=== PATIENT | female | born 1955 | race Caucasian/White ===

== ENCOUNTER → 2017-07-28 11:43 | Outpatient (CLI) | payer OTHER, SELFPAY ==
--- NOTE | 2017-07-28 18:51 | STRESSREP ---
Stress Test Report Exercise stress test. 62-year-old lady with a history of chest pain. Stress protocol: Resting EKG demonstrates normal sinus rhythm with a rate of 67 bpm. Resting blood pressure is 124/78 mmHg. The patient exercised according to the regular Quirino protocol for 5 minutes and 31 seconds attaining a maximum heart rate of 121 bpm which was 77% of the maximum predicted heart rate. The maximum workload was 7.0 metabolic equivalents. At rest there were no ST or T-wave changes noted suggest ischemia and at peak exercise upsloping ST changes only were noted with no meet the criteria for ischemia. No clinical angina was noted the test was terminated due to shortness of breath. Resting blood pressure was 124/78 with a peak blood pressure 152/68. Conclusion: Exercise stress test with no EKG criteria for ischemia at a moderate workload. No clinical angina noted.
== END ==
PROVIDERS: Family Provider Family Medicine; PCP Family Medicine; Visit Provider Internal Medicine Cardiovascular Disease
DX: E78.4 Other hyperlipidemia (principal); I10 Essential (primary) hypertension; I25.118 Atherosclerotic heart disease of native coronary artery with other forms of angina pectoris
CPT/HCPCS: 93017

== ENCOUNTER 2017-12-28 15:12 | Emergency (ER) | payer OTHER, SELFPAY ==
[2017-12-28 15:13] VITALS: BP 123/80; PULSE 69; RESP 16; TEMP 36.6; O2SAT 100; BMI 26.6
[2017-12-28 15:32] VITALS: O2SAT 99
--- NOTE | 2017-12-28 15:32 | EKG12_ITS ---
Test Reason : CP Blood Pressure : / mmHG Vent. Rate : 064 BPM Atrial Rate : 064 BPM P-R Int : 146 ms QRS Dur : 076 ms QT Int : 438 ms P-R-T Axes : 038 029 030 degrees QTc Int : 451 ms Normal sinus rhythm Normal ECG Confirmed by KAT CHACKO, HARMAN ([id number]), acquisitions editor ROSY SHEFFIELD ([id number]) on 01/01/2018 1:04:21 PM Referred By: HELIO/INDY Confirmed By:HARMAN STEPHENS MD
--- NOTE | 2017-12-28 15:32 | CT_ITS ---
STUDY: CTA CHEST REASON FOR EXAM: Female, 62 years old. Evaluate for dissection. Right sided chest pain. Hypertension. RADIATION DOSAGE (If Supplied By Facility): CTDIvol = ( 11.38 ) mGy, DLP = ( 408.79 ) mGycm TECHNIQUE: The examination was performed with the intravenous administration of 75mL ml of Isovue 370 contrast material. Post-processing of the angiographic images was performed, with multiplanar reformation and 3D reconstruction. Individualized dose optimization techniques were used for this CT. COMPARISON: None. FINDINGS: Normal thyroid Normal enhancement of the main pulmonary artery and right and left pulmonary arteries. Normal enhancement of the bilateral peripheral pulmonary arteries. There is no demonstrated pulmonary embolism. Normal thoracic aorta and visualized great vessels. There is no demonstrated aortic dissection. Normal heart and pericardium. Normal mediastinum. Normal hilar regions. Normal visualized trachea and bronchi. The lungs are well expanded. Normal pulmonary parenchyma. Calcified right lower lobe granuloma. Normal pleura. Normal chest wall structures. Normal osseous structures. Normal visualized upper abdomen. CT/CTA Chest W/WO Contrast IMPRESSION: Normal CTA chest examination, without a demonstrated pulmonary embolism or arterial dissection. Lungs are adequately inflated and clear. Electronically Signed: Manny Dodd DO at 17:09 EDT Tel , Service support ,
--- NOTE | 2017-12-28 15:55 | ED.VISSUMM ---
- ER Visit Summary Date of Service: 12/28/17 Chief Complaint: Chest pain History of Present Illness: The patient is a [address] Mims and Dr. Garcia. She reports that 3 days ago she noticed that her neck was stiff on the right. She states that she woke with this and the pain was 6 out of 10 severity. Then spread to her right shoulder 2 days ago. States that last night at 8 PM while at rest she had the onset of a right-sided chest pressure. It has been constant since that time. It is 8 out of 10 when she is still in 10 out of 10 with movement of her torso or breathing. She reports that this morning it is radiated into her right axilla down her arm and into her hand. She states that she took a dose of nitro last night and her pain decreased from an 8 to a 6 transiently. Patient denies any recent travel. No ankle swelling or calf pain. No personal or family history of DVT. She denies any recent trauma. No fall, MVA, or change in activity. However, she reports that she begin lovastatin 2 weeks ago. Physical Examination: Vitals: Stable. Afebrile. General: Well-nourished and well-developed. Head: Normocephalic atraumatic. Neck: Supple, no lymphadenopathy. No JVD. Mild tenderness palpation over the right trapezius muscle and the right rhomboids. Cardiovascular: Regular rate and rhythm. No murmurs. Respiratory: No respiratory distress. Clear to auscultation bilaterally. Moderate tenderness palpation over the right side of her chest that does reproduce her pain. Abdominal: Soft, nontender, nondistended, normal bowel sounds. No guarding, rebound, or peritoneal signs. Back: Nontender. Extremities: Nontender, no edema. 2+ radial pulse bilaterally. Skin: Normal color, no rash. Neurologic: Alert and oriented ?3. Cranial nerves II through XII are intact. Normal strength and sensation. Psych: Normal affect. Test Results: EKG is sinus at 64 with no acute changes. CBC is marked for an H&H 11.7 34.5, 7 neutrophils 41, sats 47. Chem-7 is normal. Troponin is negative. CPK is 90. CT of the chest shows no dissection or PE. Emergency Department Course and Treatment: Patient was treated morphine and Zofran IV. She is resting comfortably. Treatment Plan: Patient was discussed Dr. Hal Cunningham. Given the fact that these are more focal myalgias he questions whether or not that they are due to the lovastatin. Regardless patient is instructed to stop this. She will be discharged with [place]. Instructed follow-up Dr. Mims later this week to have further discussion about her cholesterol medications. Disposition: To home in improved and stable condition. Impression: 1. Atypical chest pain. 2. Muscular neck pain. This note was generated with [employer] dictation software. It may contain incorrect words, spelling, and punctuation that were not noted in review of the chart prior to signing ED Disposition - Plan for ED Patient: Disposition: Home or Assisted Living Chief Complaint: Chest Other Instructions: ED Strain Chest Wall Prescriptions: Hydrocodone/Acetaminophen [[place] 5-325 Tablet] 1 - 2 each PO 4X/DAY PRN PRN 3 Days #12 tablet PRN Reason: Pain Referrals: Hal Cunningham MD [STAFF PHYSICIAN] - 3-5 Days Additional Instructions: Don't take your lovastatin until you speak with Dr. Cunningham.
--- NOTE | 2017-12-28 15:58 | ED.DCSUM_ITS ---
- ER Visit Summary Date of Service: 12/28/17 Chief Complaint: Chest pain History of Present Illness: The patient is a [address] Mims and Dr. Garcia. She reports that 3 days ago she noticed that her neck was stiff on the right. She states that she woke with this and the pain was 6 out of 10 severity. Then spread to her right shoulder 2 days ago. States that last night at 8 PM while at rest she had the onset of a right-sided chest pressure. It has been constant since that time. It is 8 out of 10 when she is still in 10 out of 10 with movement of her torso or breathing. She reports that this morning it is radiated into her right axilla down her arm and into her hand. She states that she took a dose of nitro last night and her pain decreased from an 8 to a 6 transiently. Patient denies any recent travel. No ankle swelling or calf pain. No personal or family history of DVT. She denies any recent trauma. No fall, MVA, or change in activity. However, she reports that she begin lovastatin 2 weeks ago. Physical Examination: Vitals: Stable. Afebrile. General: Well-nourished and well-developed. Head: Normocephalic atraumatic. Neck: Supple, no lymphadenopathy. No JVD. Mild tenderness palpation over the right trapezius muscle and the right rhomboids. Cardiovascular: Regular rate and rhythm. No murmurs. Respiratory: No respiratory distress. Clear to auscultation bilaterally. Moderate tenderness palpation over the right side of her chest that does reproduce her pain. Abdominal: Soft, nontender, nondistended, normal bowel sounds. No guarding, rebound, or peritoneal signs. Back: Nontender. Extremities: Nontender, no edema. 2+ radial pulse bilaterally. Skin: Normal color, no rash. Neurologic: Alert and oriented ?3. Cranial nerves II through XII are intact. Normal strength and sensation. Psych: Normal affect. Test Results: EKG is sinus at 64 with no acute changes. CBC is marked for an H& H 11.7 34.5, 7 neutrophils 41, sats 47. Chem-7 is normal. Troponin is negative. CPK is 90. CT of the chest shows no dissection or PE. Emergency Department Course and Treatment: Patient was treated morphine and Zofran IV. She is resting comfortably. Treatment Plan: Patient was discussed Dr. Hal Cunningham. Given the fact that these are more focal myalgias he questions whether or not that they are due to the lovastatin. Regardless patient is instructed to stop this. She will be discharged with [place]. Instructed follow-up Dr. Mims later this week to have further discussion about her cholesterol medications. Disposition: To home in improved and stable condition. Impression: 1. Atypical chest pain. 2. Muscular neck pain. This note was generated with [employer] dictation software. It may contain incorrect words, spelling, and punctuation that were not noted in review of the chart prior to signing ED Disposition - Plan for ED Patient: Disposition: Home or Assisted Living Chief Complaint: Chest Other Instructions: ED Strain Chest Wall Prescriptions: Hydrocodone/Acetaminophen [[place] 5-325 Tablet] 1 - 2 each PO 4X/DAY PRN PRN 3 Days #12 tablet PRN Reason: Pain Referrals: Hal Cunningham MD [STAFF PHYSICIAN] - 3-5 Days Additional Instructions: Don't take your lovastatin until you speak with Dr. Cunningham.
[2017-12-28] MEDS: Morphine 4 MG/ML Syringe IV (16:07)
[2017-12-28] MEDS: 0.9% Normal Saline 1,000 ML 1000 ML IV (16:07)
[2017-12-28] MEDS: Ondansetron 4 MG/2 ML Vial IV (16:07)
[2017-12-28 16:10] LABS: Absolute Neutrophil Count 2.9 X10^3/uL (2.0-7.7); Basophil# 0.03 X10^3/uL; Basophil% 0.4 % (0-1); Eosinophil# 0.12 X10^3/uL; Eosinophils% 1.7 % (0-5); Hematocrit 34.5 % (37-47); Hemoglobin 11.7 g/dl (12.0-15.0); Lymphocyte % 47.4 % (19-41); Mean Corp Hgb Conc 33.9 g/gl (32-36); Mean Corpuscular Hgb 29.4 pg (27.0-32.0); Mean Corpuscular Volume 86.7 fL (81-99); Mean Platelet Vol. 10.4 fl (6.2-12.0); Monocyte# 0.67 X10^3/uL; Monocyte% 9.3 % (0-10); Neutrophil # 2.94 X10^3/uL (2.7-7.7); Neutrophil % 41.1 % (47-70); POSITIVE COUNT NO; POSITIVE DIFFERENTIAL NO; POSITIVE MORPHOLOGY NO; Platelet Count 278 K/mm3 (150-450); RBC Distribution Width CV 13.4 % (11.6-14.6); Red Blood Count 3.98 M/mm3 (4.2-5.4); White Blood Count 7.2 K/mm3 (4.4-11.0)
[2017-12-28 16:18] LABS: Anion Gap 7 (5-15); BUN 16 mg/dL (7-18); BUN/Creat Ratio 16.9 RATIO (10-20); CPK Total, Creatine Kinase 90 U/L (26-192); Calcium,Total 8.5 mg/dL (8.5-10.1); Chloride 106 mmol/L (98-107); Creatinine, Serum 0.94 mg/dL (0.55-1.02); EST Glomerular Filtration Rate 64 mL/min (>60); Est Glom Filt Rate - Afr Amer 77 mL/min (>60); Estimated Creatinine Clearance 57.35 ml/min; Glucose 83 mg/dL (74-106); Potassium 4.1 mmol/L (3.5-5.1); Sodium Level 139 mmol/L (136-145)
[2017-12-28] MEDS: Ketorolac 30 MG/ML Syringe IV (17:36)
[2017-12-28 18:36] VITALS: BP 113/67; PULSE 71; RESP 18; O2SAT 100
[2017-12-28 18:59] VITALS: BP 113/67; PULSE 66; RESP 15; O2SAT 93
== END 2017-12-28 19:00 | disposition home or self-care (01) ==
PROVIDERS: Emergency Provider Emergency Medicine; Family Provider Family Medicine; PCP Family Medicine
DX: R07.9 Chest pain, unspecified (principal); R07.89 Other chest pain; M54.2 Cervicalgia; R20.0 Anesthesia of skin; I10 Essential (primary) hypertension; I25.10 Atherosclerotic heart disease of native coronary artery without angina pectoris; E78.00 Pure hypercholesterolemia, unspecified; F17.210 Nicotine dependence, cigarettes, uncomplicated
CPT/HCPCS: 71275; 80048; 82550; 84484; 85025; 93005; 99285; J7030; Q9967; A4216; J2405

== ENCOUNTER 2017-12-30 05:34 | Emergency (ER) | payer OTHER, SELFPAY ==
[2017-12-30 05:37] VITALS: PULSE 56; RESP 19; TEMP 36.4; O2SAT 100; BMI 27.4
[2017-12-30 05:45] VITALS: BP 164/102; PULSE 57; RESP 15; TEMP 36.4; O2SAT 99
--- NOTE | 2017-12-30 06:00 | EKG12_ITS ---
Test Reason : CP Blood Pressure : / mmHG Vent. Rate : 056 BPM Atrial Rate : 056 BPM P-R Int : 156 ms QRS Dur : 076 ms QT Int : 480 ms P-R-T Axes : 064 040 050 degrees QTc Int : 463 ms Sinus bradycardia Otherwise normal ECG Confirmed by LILLY CHACKO, KINSEY ([id number]), digital editor ROSY SHEFFIELD ([id number]) on 01/01/2018 1:39:54 PM Referred By: BRIANNA Confirmed By:KINSEY CARR MD
--- NOTE | 2017-12-30 06:02 | ED.VISSUMM ---
- ER Visit Summary Date of Service: 12/30/17 Chief Complaint: [] Right-sided chest pain History of Present Illness: The patient is a 62 F with the above for the last 4 days gradual onset continuous waxes and wanes. Feels like somebody is punching her in the right side of the chest. Hurts to push on it. Started as a stiff neck and shoulder and into her chest. She was seen in the emergency department with a negative chest pain workup yesterday with negative labs and CT angios the chest. She has been using [place] with moderate relief of her symptoms. She said she has had this in the past as well. She does have one stent in her heart. No previous OH. She felt lightheaded after taking her dogs outside this morning came back inside sat down and had a syncopal episode. She did not injure herself. She had one episode of emesis. She had a negative stress test in July of this year. She says she has passed out in the past. No specific cause noted. Patient is on a beta-ingris metoprolol Physical Examination: [] Vital signs reviewed General: Well-nourished well-developed Head: Normocephalic atraumatic Eyes: Pupils equal round and reactive to light extraocular movements intact ENT: TMs clear no hemotympanum no trauma Neck: Nontender full range of motion Cardiovascular: Regular rate rhythm no murmurs normal S1-S2 Respiratory: No distress clear to auscultation bilaterally chest pinpoint right-sided tenderness Abdomen: Soft nontender nondistended normal bowel sounds no masses Back: Nontender no CVA tenderness Extremities: Nontender active range of motion ?4 extremities no trauma Skin: Normal color no trauma Neuro alert oriented cranial nerves II through XII intact normal strength sensation reflexes Test Results: [] Emergency Department Course and Treatment: [] EKG shows sinus rhythm at a rate of 56 without acute ischemia or arrhythmia. Repeat lab work obtained. Lab work shows no acute abnormalities. Hemoglobin 10.6. Troponin negative. Patient given IV Toradol and Zofran feels better after treatment. I do not think she needs to be admitted. I do not think this is heart related. This is quite reproducible likely costochondritis or chest wall pain. She thinks she passed out secondary to stress. Her was recently diagnosed with a lung mass and has been causing her a lot of anxiety and stress. She will try to follow-up as an outpatient. Treatment Plan: [] Disposition: [] Impression: [] Chest wall pain Syncopal episode This note was generated with [employer] dictation software. It may contain incorrect words, spelling, and punctuation that were not noted in review of the chart prior to signing ED Disposition - Plan for ED Patient: Chief Complaint: Chest Pain Referrals: Magan Garcia MD [Primary Care Provider] -
[2017-12-30] MEDS: Ondansetron 4 MG/2 ML Vial IV (06:12)
[2017-12-30] MEDS: Ketorolac 15 MG/ML Vial IV (06:22)
[2017-12-30 06:30] LABS: Absolute Lymphocyte Count 2.37 X10^3/ul (0.83-4.51); Absolute Neutrophil Count 3.5 X10^3/uL (2.0-7.7); Basophil# 0.03 X10^3/uL; Basophil% 0.4 % (0-1); Eosinophil# 0.11 X10^3/uL; Eosinophils% 1.6 % (0-5); Hematocrit 31.4 % (37-47); Hemoglobin 10.6 g/dl (12.0-15.0); Lymphocyte # 2.37 X10^3/ul (4.0); Lymphocyte % 34.8 % (19-41); Mean Corp Hgb Conc 33.8 g/gl (32-36); Mean Corpuscular Hgb 29.6 pg (27.0-32.0); Mean Corpuscular Volume 87.7 fL (81-99); Mean Platelet Vol. 10.5 fl (6.2-12.0); Monocyte# 0.76 X10^3/uL; Monocyte% 11.2 % (0-10); Neutrophil # 3.53 X10^3/uL (2.7-7.7); Neutrophil % 51.9 % (47-70); Platelet Count 254 K/mm3 (150-450); RBC Distribution Width CV 13.5 % (11.6-14.6); RBC Distribution Width SD 41.8 fl (35.1-43.9); Red Blood Count 3.58 M/mm3 (4.2-5.4); White Blood Count 6.8 K/mm3 (4.4-11.0)
[2017-12-30 06:32] LABS: POSITIVE COUNT NO; POSITIVE DIFFERENTIAL NO; POSITIVE MORPHOLOGY NO
[2017-12-30 06:52] LABS: Anion Gap 8 (5-15); BUN 15 mg/dL (7-18); BUN/Creat Ratio 15.3 RATIO (10-20); Calcium,Total 8.6 mg/dL (8.5-10.1); Chloride 107 mmol/L (98-107); Creatinine, Serum 0.98 mg/dL (0.55-1.02); EST Glomerular Filtration Rate 61 mL/min (>60); Est Glom Filt Rate - Afr Amer 73 mL/min (>60); Estimated Creatinine Clearance 55.01 ml/min; Glucose 133 mg/dL (74-106); Potassium 3.9 mmol/L (3.5-5.1); Sodium Level 142 mmol/L (136-145)
--- NOTE | 2017-12-30 06:59 | ED.DEP ---
ED Disposition - Plan for ED Patient: Disposition: Home or Assisted Living Chief Complaint: Chest Pain Instructions: ED Chest Pain Atypical Unkn Cause, What Is Syncope? Referrals: Magan Garcia MD [Primary Care Provider] - Hal Cunningham MD [STAFF PHYSICIAN] -
[2017-12-30 07:06] VITALS: O2SAT 98
[2017-12-30 07:22] VITALS: BP 128/69; PULSE 71; RESP 15; O2SAT 98
== END 2017-12-30 07:23 | disposition home or self-care (01) ==
PROVIDERS: Emergency Provider Emergency Medicine; Family Provider Family Medicine; PCP Family Medicine
DX: R07.89 Other chest pain (principal); R55 Syncope and collapse; E66.9 Obesity, unspecified; I10 Essential (primary) hypertension; I25.10 Atherosclerotic heart disease of native coronary artery without angina pectoris; E78.00 Pure hypercholesterolemia, unspecified
CPT/HCPCS: 80048; 84484; 85025; 93005; 99285; A4216; J2405

== ENCOUNTER → 2018-07-30 10:54 | Outpatient (CLI) | payer OTHER, SELFPAY ==
--- NOTE | 2018-07-30 | BRBX_PTH ---
PATIENT: TY HOFF LOC: [facility] U#:[id number] AGE/SX: 69/F ROOM: RE07/30/[address]: Dr. Skinny Carrion MD : [id number] BED: DIS: SPEC #: [id number] RECD: 07/30/18 14:06 STATUS: MARIANA TYLER #: [id number] JOS: 07/30/18 00:[address]: Skinny Carrion DEPT: SURGICAL PATHOLOGY RECD BY: Cisco Majano ENTERED: 07/30/18 14:06 SP TYPE: BREAST BX OTHR DR: Dr. Magan Garcia MD Tissues: A - Left breast, NOS B - Left breast, NOS Procedures: Surgery Specimen Level IV HEADER OPERATION: Left breast stereotactic biopsy PRE-OP DIAGNOSIS: Left breast density 1 o'clock; left breast microcalcifications central middle depth TISSUE SUBMITTED: A - Left breast density 1 o'clock, B - Left breast microcalcifications central middle depth ISCHEMIC TIME: 1 minute FIXATION TIME: 7.5 hours MICROSCOPIC DIAGNOSIS A. Left breast density, 1 o'clock, stereotactic core biopsy: Focal fibrocystic changes and adenosis. Focal microcalcification. Negative for atypia or malignancy. B. Left breast microcalcification, central middle depth, stereotactic core biopsy: Fragments of fibroadipose tissue with focal fat necrosis. Microcalcifications are not identified. See comment. Breast tissue is not identified in the submitted specimen. SJ:jessy 07/31/18 COMMENT B. Multiple levels are examnined. Correlation with clinical, radiologic findings and appropriate follow up are necessary. MICROSCOPIC DESCRIPTION Slides are reviewed. GROSS DESCRIPTION A - Received in fixative is one container labeled with the patient's name and designated density 1?o'clock. The specimen consists of multiple elongated fragments of flores-yellow fibroadipose tissue that?in aggregate measure 5 x 3 x 0.3 cm. The entire specimen is submitted in two cassettes. B - Received in fixative is one container labeled with the patient's name and designated calcification. The specimen consists of multiple elongated fragments of flores-yellow fibroadipose tissue that in aggregate measure 2.5 x 2.5 x 0.3 cm. The entire specimen is submitted in one cassette. / ALENA:jessy 07/30/18 TC:5 CPT: 61011 x2
--- NOTE | 2018-07-31 07:05 | PCM.OPRPT ---
Report of Operation Date of Procedure: 07/30/18 Pre-Operative Diagnosis: left breast mammographic abnormalities ?2 Post-Operative Diagnosis: successful stereotactic breast biopsy-left breast ?2 Surgery/Procedure Performed:: left vacuum-assisted core needle biopsy/stereotactic breast biopsy ?2 automatic pilot mechanic: None Type of Anesthesia:: Local Specimen's removed: left breast ?2 Description of Procedure: The patient was brought to the stereotactic suite and informed of the plan course of events. The left breast was positioned in the true lateral to medial on the [place] stereotactic table. there were 2 abnormalities noted. Initial targeting of the superior abnormalities which was a solid-appearing mass likely felt to be a cyst was targeted first. Mammographic image demonstrated the area of abnormality to be located in the center of the radiograph. Stereotactic images were then obtained which demonstrated good positioning of the abnormality for biopsy with good stroke aishwarya parameters. The breast was cleaned with Betadine area did one percent lidocaine was used to anesthetize the skin and a small stab incision made. An 8-gauge mammotome needle was placed into the pre-fire position. Stereotactic images demonstrated good positioning around the planned biopsy site. Local anesthetic injected deeply in the breast. The needle was deployed. Post deployment images demonstrated good positioning of the planned biopsy site. Multiple vacuum-assisted samples were obtained and umlifr-ahq-skhkx fashion. Specimen radiograph demonstrated micro-calcifications in the sample. A gel marker clip was deployed. Post biopsy images demonstrated good position of the clip relative the biopsy cavity. the second abnormality was much lower in the breast and was microcalcifications. Mammographic image demonstrated the area of abnormality to be located in the center of the radiograph. Stereotactic images were then obtained which demonstrated good positioning of the abnormality for biopsy with good stroke aishwarya parameters. The breast was cleaned with Betadine area did one percent lidocaine was used to anesthetize the skin and a small stab incision made. An 8-gauge mammotome needle was placed into the pre-fire position. Stereotactic images demonstrated good positioning around the planned biopsy site. Local anesthetic injected deeply in the breast. The needle was deployed. Post deployment images demonstrated good positioning of the planned biopsy site. Multiple vacuum-assisted samples were obtained and ekrcuk-vbm-ylohk fashion. Specimen radiograph demonstrated micro-calcifications in the sample. A gel marker clip was deployed. Post biopsy images demonstrated good position of the clip relative the biopsy cavity The breast was removed from compression. Steri-Strips and a dressing applied. Post procedure mammogram images were obtained.
--- NOTE | 2018-07-31 07:08 | OP.PCM_ITS ---
Report of Operation Date of Procedure: 07/30/18 Pre-Operative Diagnosis: left breast mammographic abnormalities ?2 Post-Operative Diagnosis: successful stereotactic breast biopsy-left breast ?2 Surgery/Procedure Performed:: left vacuum-assisted core needle biopsy/stereota ctic breast biopsy ?2 solderer: None Type of Anesthesia:: Local Specimen's removed: left breast ?2 Description of Procedure: The patient was brought to the stereotactic suite and informed of the plan course of events. The left breast was positioned in the true lateral to medial on the [place] stereotactic table. there were 2 abnormalities noted. Initial targeting of the superior abnormalities which was a solid-appearing mass likely felt to be a cyst was targeted first. Mammographic image demonstrated the area of abnormality to be located in the center of the radiograph. Stereotactic images were then obtained which demonstrated good positioning of the abnormality for biopsy with good stroke aishwarya parameters. The breast was cleaned with Betadine area did one percent lidocaine was used to anesthetize the skin and a small stab incision made. An 8-gauge mammotome needle was placed into the pre- fire position. Stereotactic images demonstrated good positioning around the planned biopsy site. Local anesthetic injected deeply in the breast. The needle was deployed. Post deployment images demonstrated good positioning of the planned biopsy site. Multiple vacuum-assisted samples were obtained and khgucy-lex-nrase fashion. Specimen radiograph demonstrated micro-calcifications in the sample. A gel marker clip was deployed. Post biopsy images demonstrated good position of the clip relative the biopsy cavity. the second abnormality was much lower in the breast and was microcalcifications. Mammographic image demonstrated the area of abnormality to be located in the center of the radiograph. Stereotactic images were then obtained which demonstrated good positioning of the abnormality for biopsy with good stroke aishwarya parameters. The breast was cleaned with Betadine area did one percent lidocaine was used to anesthetize the skin and a small stab incision made. An 8-gauge mammotome needle was placed into the pre-fire position. Stereotactic images demonstrated good positioning around the planned biopsy site. Local anesthetic injected deeply in the breast. The needle was deployed. Post deployment images demonstrated good positioning of the planned biopsy site. Multiple vacuum-assisted samples were obtained and drxjbj-sha-pismz fashion. Specimen radiograph demonstrated micro-calcifications in the sample. A gel marker clip was deployed. Post biopsy images demonstrated good position of the clip relative the biopsy cavity The breast was removed from compression. Steri-Strips and a dressing applied. Post procedure mammogram images were obtained.
== END ==
LOC: BIRAD 10:56
PROVIDERS: Family Provider Family Medicine; PCP Family Medicine; Referring Provider Surgery; Visit Provider Surgery
DX: R92.0 Mammographic microcalcification found on diagnostic imaging of breast (principal); N64.1 Fat necrosis of breast; R92.2 Inconclusive mammogram; F17.200 Nicotine dependence, unspecified, uncomplicated; M79.7 Fibromyalgia; I10 Essential (primary) hypertension; K21.9 Gastro-esophageal reflux disease without esophagitis; E78.2 Mixed hyperlipidemia
CPT/HCPCS: 19081; 19082; 88305; J7050

== ENCOUNTER → 2018-09-01 13:22 | Outpatient (CLI) | payer OTHER, SELFPAY ==
--- NOTE | 2018-09-01 13:25 | RAD_ITS ---
STUDY: BARIUM ENEMA. REASON FOR EXAM: Female, 63 years old. Incomplete colonoscopy. FLUOROSCOPY TIME (if supplied): (1:43) minutes/seconds. 15 spot images were obtained. TECHNIQUE: A hardboard press operator film was obtained. Following this, contrast was introduced retrograde from the rectum. The entire colon was opacified. COMPARISON: None. FINDINGS: On the hardboard press operator film, phleboliths are seen in the left hemipelvis. There is evidence of degenerative changes of the lumbar spine with a mild degree of levoscoliosis. There are scattered sigmoid diverticula. Redundant rectosigmoid colon. There is no evidence of obstruction to the antegrade or retrograde flow of barium. No mass lesion is seen. RAD/Barium Enema No Air Cont IMPRESSION: Sigmoid diverticulosis. Redundancy of the rectosigmoid colon. Electronically Signed: Delta Medina, at 15:24 EDT , Service support ,
== END ==
PROVIDERS: Family Provider Family Medicine; PCP Family Medicine; Referring Provider Surgery; Visit Provider Surgery
DX: Z53.9 Procedure and treatment not carried out, unspecified reason (principal); K57.30 Diverticulosis of large intestine without perforation or abscess without bleeding
CPT/HCPCS: 74270

== ENCOUNTER → 2018-10-08 08:14 | Outpatient (CLI) | payer OTHER, SELFPAY ==
--- NOTE | 2018-10-08 08:25 | RAD_ITS ---
PROCEDURE: Fluoroscopic guided Hip Injection DATE: October 08, 2018. INDICATION: Female, 63 years old. Chronic left hip pain. PHYSICIAN: Delta Medina M.D. MEDICATIONS: 80 mg of Kenalog and 2 cc of 0.5% Marcaine. 2% Lidocaine administered subcutaneously for local anesthesia. ACCESS SITE: Left hip. NEEDLE: 22-gauge spinal needle. FLUOROSCOPY TIME (if supplied): (0:48) minutes/seconds FINDINGS: The risks, benefits, and alternatives to the procedure were explained to the patient. The specific risks of bleeding, infection, and neurovascular injury were detailed and accepted. Witnessed informed consent was obtained. A 22-gauge spinal needle was positioned under radiographic fluoroscopic localization. Approximately 2 cc of Gastroview 300 instilled for localization purposes. Medication was then injected. The patient tolerated the procedure well without any immediate complications. The patient was placed supine with head elevated and returned to the floor in stable condition. RAD/Inj/Asp Erich Jt Should/Hip/Knee IMPRESSION: 1. Successful fluoroscopic guided hip injection. Electronically Signed: Delta Medina, at 9:59 EDT , Service support ,
== END ==
PROVIDERS: Family Provider Family Medicine; PCP Family Medicine; Referring Provider Orthopaedic Surgery; Visit Provider Orthopaedic Surgery
DX: M25.552 Pain in left hip (principal); M16.12 Unilateral primary osteoarthritis, left hip
CPT/HCPCS: 20610; 77002; Q9965

== ENCOUNTER → 2018-10-21 13:54 | Outpatient (CLI) | payer OTHER, SELFPAY ==
--- NOTE | 2018-10-21 13:56 | RAD_ITS ---
STUDY: X-RAY - LUMBAR SPINE REASON FOR EXAM: Female, 63 years old. Chronic back pain goes into left leg, numbness left leg. TECHNIQUE: 3 view(s) of the lumbar spine were obtained. COMPARISON: None FINDINGS: Normal lumbar lordosis. There is no substantial scoliosis. There is a normal alignment of the vertebrae. There is diffuse demineralization with multi-level endplate spondylosis. There is multi-level degenerative disc disease with multi-level disc space involving the L5-S1 level, L2-3, L3-4 level. Facet joints are not sufficiently detailed, there is however increased sclerosis suggestive of facet arthropathy. There is atherosclerotic calcification of the abdominal aorta without a demonstrated aneurysm. RAD/Lumbar Spine 2 or 3 Views IMPRESSION: Degenerative changes of the spine, as detailed above. Cross-sectional imaging may provide additional detail. There is straightening of the normal lordotic curve, a nonspecific finding, which may be due to positioning or which might be due to muscle spasm. Electronically Signed: Michelle Luong MD at 4:17 EDT , Service support ,
== END ==
PROVIDERS: Family Provider Family Medicine; PCP Family Medicine; Referring Provider Anesthesiology Pain Medicine; Visit Provider Anesthesiology Pain Medicine
DX: M54.9 Dorsalgia, unspecified (principal)
CPT/HCPCS: 72100

== ENCOUNTER 2019-01-25 17:17 | Emergency (ER) | payer OTHER, SELFPAY ==
[2019-01-25 17:19] VITALS: BP 133/85; PULSE 106; RESP 18; TEMP 35.6; O2SAT 96; BMI 26.7
--- NOTE | 2019-01-25 19:32 | CT_ITS ---
STUDY: CT ABDOMEN AND PELVIS WITH CONTRAST REASON FOR EXAM: Female, 63 years old. Pain RADIATION DOSAGE (If Supplied By Facility): DLP = ( 909.97 ) mGycm TECHNIQUE: Transaxial images were obtained from the dome of the diaphragm to the symphysis pubis without oral contrast. 100 ml of Isovue 300 contrast was administered. Sagittal and coronal images were reconstructed. Individualized dose optimization techniques were used for this CT. COMPARISON: CT abdomen pelvis similar to July 16, 2013 FINDINGS: The visualized lung bases are clear. The visualized portions of the heart and pericardium are within normal limits. The gallbladder has been removed. The liver is within normal limits. There are no suspicious hepatic lesions. The spleen is normal in size. The pancreas is within normal limits. The adrenal glands are within normal limits. There are no obstructing renal stones. There is no hydronephrosis. There are no focal renal lesions. Normal visualized stomach. There is prominent stool throughout the colon. There is mild sigmoid colonic wall thickening. The aorta is normal in caliber. There is no abdominal or pelvic free air, free fluid, fluid collection or lymphadenopathy. There are no destructive osseous lesions. CT/Abdomen/Pelvis W IV Cont ONLY IMPRESSION: Mild thickening of the sigmoid colonic wall in association with colonic diverticula, suggesting mild sigmoid colitis/diverticulitis. Prominent stool throughout the colon consistent with constipation. Electronically Signed: Magan Song, at 20:19 EDT Tel , Service support ,
--- NOTE | 2019-01-25 19:35 | ED.DCSUM_ITS ---
- ER Visit Summary Date of Service: 01/25/19 Chief Complaint: Suprapubic abdominal pain History of Present Illness: The patient is a 63 F history of prior diverticulitis also coronary disease on cardiac stent. Prior appendectomy, cholecystectomy and hysterectomy. Patient plan for a history since Friday of suprapubic abdominal pain. Initially she thought it might be a UTI even though she was not having any dysuria or hematuria. Treated herself with AZO without any relief. Started having nausea and vomiting. Also fever as high as 103. No diarrhea. She does have history of constipation. No melena. Physical Examination: Older female no acute distress. Vital signs are stable. HEENT exam unremarkable. Neck nontender. Lungs clear to auscultation bilaterally. Heart regular rhythm rate about 105 no murmur. Abdomen is soft. Suprapubic tenderness. The upper quadrants and right lower quadrant unremarkable. No signs of obstruction. Positive bowel sounds. Patient moving all 4 extremities. Neurovascular intact. No edema. Neurologically awake alert with no focal motor deficits. Test Results: CBC shows white count 13. Hemoglobin 10.3. Letter lites shows a potassium 3.1 normal creatinine and gap. Liver enzymes unremarkable. Lipase normal. UA positive nitrates 1+ bacteria. No white cells. CT abdomen pelvis with IV contrast showed sigmoid diverticulitis. Read by the radiologist and reviewed by me. No perforation. No abscess. Emergency Department Course and Treatment: Patient treated with IV fluids, morphine and Zofran. CAT scan and screening labs to be obtained. Treatment Plan: Discussed all test results with patient. Repeat exam at 20 2:20 PM she is doing well. We discussed antibiotics in the last time she had diverticulitis she did well with Augmentin. She will be given 1 dose in the ER. 2 [place] for pain. [place] 20 no refill. Augmentin 875 twice daily for 10 days. Follow-up with her primary care physician she has an appointment in the next day or so. Disposition: Discharge Impression: Acute abdominal pain secondary to acute sigmoid diverticulitis History of prior diverticulitis This note was generated with [employer] software. It may contain incorrect words, spelling, and punctuation that were not noted in review of the chart prior to signing ED Disposition - Plan for ED Patient: Referrals: Magan Garcia MD [Primary Care Provider] -
[2019-01-25] MEDS: 0.9% Normal Saline 1,000 ML 1000 ML IV (19:44)
[2019-01-25] MEDS: Morphine 4 MG/ML Syringe 6 MG IV (19:44)
[2019-01-25] MEDS: Ondansetron 4 MG/2 ML Vial IV (19:44)
[2019-01-25 19:50] LABS: Absolute Lymphocyte Count 2.26 X10^3/uL (0.83-4.51); Basophil# 0.03 X10^3/uL; Basophil% 0.2 % (0-1); Eosinophil# 0.21 X10^3/uL; Eosinophils% 1.6 % (0-5); Hematocrit 31.1 % (37-47); Hemoglobin 10.3 g/dL (12.0-15.0); Lymphocyte # 2.26 X10^3/ul (4.0); Lymphocyte % 17.1 % (19-41); Mean Corp Hgb Conc 33.1 g/dL (32-36); Mean Corpuscular Hgb 28.5 pg (27.0-32.0); Mean Corpuscular Volume 86.1 fL (81-99); Mean Platelet Vol. 10.4 fl (6.2-12.0); Monocyte% 12.8 % (0-10); NRBC Flagged by Analyzer 0 % (0-5); Neutrophil # 8.99 X10^3/uL (2.7-7.7); Neutrophil % 67.8 % (47-70); POSITIVE DIFFERENTIAL YES; Platelet Count 294 K/mm3 (150-450); RBC Distribution Width CV 13.8 % (11.6-14.6); RBC Distribution Width SD 43.5 fl (35.1-43.9); Red Blood Count 3.61 M/mm3 (4.2-5.4); White Blood Count 13.3 K/mm3 (4.4-11.0)
[2019-01-25 19:55] LABS: Mucous, Urine 0 SEEN /hpf (<or=2+); Red Blood Cells-Urine 0 SEEN /hpf (0-5)
[2019-01-25 19:57] LABS: Differential Indicated SCAN CRITERIA MET
[2019-01-25 19:58] LABS: Color, Urine Amber (Yellow); Glucose, Dipstick Normal (Normal); Ketone-Dipstick Negative (Negative); Leukocyte Esterase-Dipstick Negative /ul (Negative); Nitrite-Dipstick Positive (Negative); Occult Blood-Urine 10 /ul (Negative); Protein-Dipstick 100 mg/dl (Negative); Specific Gravity, Urine 1.015 (1.002-1.030); Urine Clarity Sl. Cloudy (Clear); Urine Urobilinogen 12 mg/dl (Normal); Urine pH 6.5 (5.0 - 8.0)
[2019-01-25 19:59] LABS: Urine Bilirubin Dipstick 6 mg/dL (Negative)
[2019-01-25 20:02] LABS: AST(SGOT) 54 U/L (15-37); Alanine Aminotransfer ALT/SGPT 40 U/L (13-56); Albumin, Serum 3.2 g/dL (3.2-5.0); Alkaline Phosphatase 112 U/L (45-117); Anion Gap 7 (5-15); BUN 16 mg/dL (7-18); BUN/Creat Ratio 15.2 RATIO (10-20); Calcium,Total 8.9 mg/dL (8.5-10.1); Chloride 101 mmol/L (98-107); Creatinine, Serum 1.05 mg/dL (0.55-1.02); EST Glomerular Filtration Rate 56 mL/min (>60); Est Glom Filt Rate - Afr Amer 68 mL/min (>60); Estimated Creatinine Clearance 50.67 ml/min; Globulin 4.3 g/dL (2.2-4.2); Glucose 103 mg/dL (74-106); Lipase 28 U/L (73-393); Potassium 3.1 mmol/L (3.5-5.1); Protein, Total 7.5 g/dL (6.4-8.2); Sodium Level 135 mmol/L (136-145)
[2019-01-25 20:03] LABS: Squamous Epithelial Cells - UA 5-10 SEEN /hpf (5-10)
[2019-01-25 20:05] LABS: Calcium Oxalate Crystals Ur 2+ /hpf (<or=2+); Hyaline Cast 0-5 SEEN /lpf (0-5)
[2019-01-25 20:06] LABS: Bacteria 1+ /hpf (None Seen); White Blood Cells 0-5 SEEN /hpf (0-5)
[2019-01-25 20:16] LABS: Differential Comment SCANNED
[2019-01-25 21:03] VITALS: RESP 17
[2019-01-25 21:07] VITALS: BP 128/76; PULSE 85; RESP 18; O2SAT 94
--- NOTE | 2019-01-25 22:27 | DCINST.ED_ITS ---
ED Disposition - Plan for ED Patient: Disposition: Home or Assisted Living Instructions: Diverticulitis Prescriptions: Amox/Clavulanate Tablet [Augmentin Tablet] 875 mg PO Q12H #20 tab Prescription Printed Hydrocodone/Acetaminophen [[place] 7.5-325 Tablet] 1 ea PO Q4H PRN PRN 7 Days #20 tab PRN Reason: Pain Prescription Printed Referrals: Magan Garcia MD [Primary Care Provider] - Keep Mi appointment Additional Instructions: [place] for pain. Plenty of fluids and fiber to prevent constipation. Augmentin 1 pill twice a day for 10 days. Follow-up with your doctor. Return if feeling worse.
[2019-01-25] MEDS: HYDROcodone Bitartrate/Apap 5/325 Tablet PO (22:30)
[2019-01-25] MEDS: Amox/Clavulanate 875 MG Tablet PO (22:30)
[2019-01-25 22:32] VITALS: BP 133/82; PULSE 93; RESP 18; O2SAT 96
[2019-01-26 13:36] LABS: Pathologist Review Reviewed
== END 2019-01-25 22:36 | disposition home or self-care (01) ==
PROVIDERS: Emergency Provider Emergency Medicine; Family Provider Family Medicine; PCP Family Medicine
DX: K57.32 Diverticulitis of large intestine without perforation or abscess without bleeding (principal); I25.10 Atherosclerotic heart disease of native coronary artery without angina pectoris; Z95.5 Presence of coronary angioplasty implant and graft; Z90.49 Acquired absence of other specified parts of digestive tract; Z90.710 Acquired absence of both cervix and uterus; Z72.0 Tobacco use
CPT/HCPCS: 74177; 80048; 80076; 81001; 83690; 85025; 96361; 96374; 96375; 99285; J7030; Q9967; J2405

== ENCOUNTER 2019-01-26 21:31 | Emergency (ER) | payer OTHER, SELFPAY ==
[2019-01-25 17:19] VITALS: BMI 26.7
[2019-01-26 21:31] VITALS: BP 146/77; PULSE 80; RESP 15; TEMP 36.6; O2SAT 96; BMI 26.6
[2019-01-26 21:34] VITALS: TEMP 36.6
[2019-01-26 22:34] VITALS: TEMP 36.6
--- NOTE | 2019-01-26 22:41 | ED.DCSUM_ITS ---
- ER Visit Summary Date of Service: 01/26/19 Chief Complaint: Abdominal pain History of Present Illness: The patient is a 63 F presenting with abdominal pain. She states this started 5 days ago. She has had subjective fever. She was seen in the ED last night and diagnosed with diverticulitis. She was put on Augmentin and [place]. She complains of persistent pain left lower quadrant. She has nausea with no vomiting. She is able to keep her antibiotics down. She denies other complaints. Physical Examination: Vitals are stable. Patient is afebrile. Alert no acute distress. HEENT exam is unremarkable. Neck is supple. Lungs are clear and equal bilaterally. Heart is regular rate and rhythm. Abdomen is soft left lower quadrant tenderness with no rebound or guarding Extremities are unremarkable. Skin is warm and dry. No focal neurologic deficit. Remainder of exam is unremarkable. Emergency Department Course and Treatment: Patient was given morphine, Zofran IV. CBC shows white count 11.1, hemoglobin 9.2. Chemistries show sodium 133, potassium 2.9, glucose 111. She was given potassium oral replacement. CT abdomen from 01/25/2019 shows mild thickening of the sigmoid colonic wall in association with colonic diverticula, suggesting mild sigmoid colitis/diverticulitis. Patient states she has only had 2 doses of her antibiotics. She is able to keep this down. The pain is no worse, it has just been persistent. She declines admission and would like to go home. She is advised signs and symptoms for which to return to the ED. Advised to follow-up with primary care physician. Disposition: Discharge home Impression: Diverticulitis This note was generated with [employer] dictation software. It may contain incorrect words, spelling, and punctuation that were not noted in review of the chart prior to signing ED Disposition - Plan for ED Patient: Instructions: Diverticulitis Referrals: Magan Garcia MD [Primary Care Provider] -
[2019-01-26] MEDS: Ondansetron 4 MG/2 ML Vial IV (22:47)
[2019-01-26] MEDS: 0.9% Normal Saline 1,000 ML 1000 ML IV (22:47)
[2019-01-26] MEDS: Morphine 4 MG/ML Syringe IV (22:47)
[2019-01-26 22:51] LABS: Absolute Lymphocyte Count 1.81 X10^3/uL (0.83-4.51); Absolute Neutrophil Count 7.3 X10^3/uL (2.0-7.7); Basophil# 0.02 X10^3/uL; Basophil% 0.2 % (0-1); Eosinophil# 0.23 X10^3/uL; Eosinophils% 2.1 % (0-5); Hematocrit 27.7 % (37-47); Hemoglobin 9.2 g/dL (12.0-15.0); Lymphocyte # 1.81 X10^3/ul (4.0); Lymphocyte % 16.3 % (19-41); Mean Corp Hgb Conc 33.2 g/dL (32-36); Mean Corpuscular Hgb 28.8 pg (27.0-32.0); Mean Corpuscular Volume 86.6 fL (81-99); Mean Platelet Vol. 10.2 fl (6.2-12.0); Monocyte# 1.73 X10^3/uL; Monocyte% 15.6 % (0-10); NRBC Flagged by Analyzer 0 % (0-5); Neutrophil # 7.28 X10^3/uL (2.7-7.7); Neutrophil % 65.4 % (47-70); POSITIVE DIFFERENTIAL YES; Platelet Count 290 K/mm3 (150-450); RBC Distribution Width CV 13.5 % (11.6-14.6); RBC Distribution Width SD 42.5 fl (35.1-43.9); White Blood Count 11.1 K/mm3 (4.4-11.0)
[2019-01-26 22:59] LABS: Anion Gap 7 (5-15); BUN 10 mg/dL (7-18); BUN/Creat Ratio 11.9 RATIO (10-20); Calcium,Total 8.6 mg/dL (8.5-10.1); Chloride 100 mmol/L (98-107); Creatinine, Serum 0.84 mg/dL (0.55-1.02); EST Glomerular Filtration Rate 72 mL/min (>60); Est Glom Filt Rate - Afr Amer 87 mL/min (>60); Estimated Creatinine Clearance 63.34 ml/min; Glucose 111 mg/dL (74-106); Potassium 2.9 mmol/L (3.5-5.1); Sodium Level 133 mmol/L (136-145)
[2019-01-26 23:00] VITALS: BP 142/84; PULSE 80; RESP 16; TEMP 36.7; O2SAT 97
[2019-01-26 23:11] LABS: Differential Indicated SCAN CRITERIA MET
--- NOTE | 2019-01-27 00:37 | ED.DEP ---
ED Disposition - Plan for ED Patient: Instructions: Diverticulitis Referrals: Magan Garcia MD [Primary Care Provider] -
[2019-01-27 01:11] VITALS: BP 128/89; PULSE 85; RESP 18; O2SAT 95
== END 2019-01-27 01:13 | disposition home or self-care (01) ==
LOC: ED 22:42
PROVIDERS: Emergency Provider Emergency Medicine; Family Provider Family Medicine; PCP Family Medicine
DX: K57.32 Diverticulitis of large intestine without perforation or abscess without bleeding (principal); K57.30 Diverticulosis of large intestine without perforation or abscess without bleeding; I25.10 Atherosclerotic heart disease of native coronary artery without angina pectoris; I10 Essential (primary) hypertension; E78.00 Pure hypercholesterolemia, unspecified; Z72.0 Tobacco use
CPT/HCPCS: 80048; 85025; 96361; 96374; 96375; 99284; J7030; A4216; J2405

== ENCOUNTER 2019-01-27 18:43 | Inpatient (IN) | payer OTHER, SELFPAY ==
[2019-01-26 21:31] VITALS: BMI 26.6
[2019-01-27 18:43] VITALS: BP 154/82; PULSE 81; RESP 16; TEMP 37.1; O2SAT 99; BMI 27.4
--- NOTE | 2019-01-27 19:29 | CT_ITS ---
STUDY: CT ABDOMEN AND PELVIS WITH CONTRAST REASON FOR EXAM: Female, 63 years old. Diverticulitis RADIATION DOSAGE (If Supplied By Facility): CTDIvol = ( 17.52 ) mGy, DLP = ( 917.35 ) mGycm TECHNIQUE: Transaxial images were obtained from the dome of the diaphragm to the symphysis pubis without oral contrast. 100ML IV Isovue 300 was administered. Sagittal and coronal images were reconstructed. Individualized dose optimization techniques were used for this CT. COMPARISON: January 25, 2019 FINDINGS: There is minor atelectasis within the dependent portion of the lungs.. Heart is mildly enlarged. Liver is mildly enlarged and fatty infiltrated without mass or bile duct dilatation. Gallbladder has been removed.. Normal spleen. Atrophic fatty infiltrated pancreas.. Normal bilateral adrenal glands. Normal right kidney. Normal left kidney. Normal visualized stomach. Diffuse ileus pattern is noted.. There are diverticular changes in the sigmoid colon with associated stranding in the fat and trace of free fluid in the pelvis consistent with acute diverticulitis. There is no peridiverticular abscess. No evidence for acute appendicitis Atherosclerotic changes of the aorta without evidence for aneurysm Normal inferior vena cava. Normal retroperitoneum. Normal urinary bladder. Uterus not visualized consistent with hysterectomy. Normal abdominal wall. Lumbar spine demonstrates moderate spondylosis. CT/Abdomen/Pelvis W IV Cont ONLY IMPRESSION: Acute diverticulitis of the sigmoid colon without evidence for peridiverticular abscess. Electronically Signed: Magan Vargas MD at 20:33 EDT , Service support ,
--- NOTE | 2019-01-27 19:30 | ED.VIS.GI ---
History of Present Illness Chief Complaint: Abd Pain Informant: Patient - Abdominal Pain/Flank Pain Onset: Days - 6-7 Context: Gradual Onset Timing: Continuous Quality: Aching Location: LLQ Current Severity: Severe Maximum Severity: Severe Worsened by: Car ride Relieved by: Nothing - Nausea/Vomiting/Emesis GI Symptom: Negative for: Nausea, Vomiting - Diarrhea/Melena/Hematochezia GI Symptom: Negative for: Diarrhea, Melena, Hematochezia Associated Symptoms: Negative for: Dysuria, Frequency, Hematuria, Urgency Narrative: Patient was seen here several days ago and diagnosed with diverticulitis seen on CAT scan, her symptoms are much worse. She has pain only, no other symptoms. She has been taking the antibiotics that she was prescribed. She was seen here last night because her pain was no better, she was offered admission and declined, now she is in much more pain and is regretful she did not stay. - Past Medical History (1) History of Clostridium difficile infection Status: Chronic (2) Tobacco dependence syndrome Status: Chronic Past Medical History - Allergies and Home Meds Allergies/Adverse Reactions: Allergies promethazine HCl [From Phenergan] Adverse Reaction (Verified 01/26/19 21:34) Vomiting BEE STING Allergy (Uncoded 01/26/19 21:34) Anaphylaxis Primary Care Physician: Magan Garcia MD [Primary Care Provider] - Surgical History: appendectomy, cholecystectomy, hysterectomy Lives: Spouse/ Significant Other Smoking Status: Current every day smoker Drugs: None Review of Systems General: Reports: Malaise. Denies: Chills, Fever, Sweats Eyes: Denies: Visual changes - bilaterally, Diplopia ENT: Denies: Rhinorrhea, Sore throat Cardiovascular: Denies: Chest pain, Palpitations Respiratory: Denies: Dyspnea, Cough, Dyspnea on exertion Gastrointestinal: Reports: Abdominal pain. Denies: Nausea, Vomiting, Diarrhea, Melena, Hematochezia Genitourinary: Denies: Dysuria, Hematuria, Frequency Musculoskeletal: Denies: Back pain, Swelling, Extremity Pain Skin: Denies: Rash, Wounds Neurological: Denies: Headache, Weakness, Numbness Physical Exam Vital Signs/Narrative: Vital Signs Temp Pulse Resp BP Pulse Ox 01/27/19 18:43 98.7 F 81 16 154/82 H 99 Inital Vital Signs reviewed: Yes General: Well nourished, Well developed, No Acute Distress Head: Normocephalic, Atraumatic Eyes: Perrl, EOMI ENT: Moist mucous membranes, No rhinorrhea Neck: Supple, Nontender Cardiovascular: Regular rate, Regular rhythm, No murmurs Respiratory: No distress, CTA bilaterally, Chest nontender Abdomen: Soft, Nondistended, Normal bowel sounds, Tender - LLQ > LUQ, Guarding - LLQ, Rebound tenderness - LLQ Back: Nontender, Normal Inspection. Negative for: CVA tenderness Extremities: Nontender, No edema Skin: Normal color, No rash, No Trauma Neurological: Alert, Oriented x3, Cranial nerves II-XII grossly intact, Normal Strength, Normal Sensation Psychological: Normal Mood, - - anxious Diagnostic/Tx/Re-eval Impressions Abdomen/Pelvis CT 01/27/19 19:29 IMPRESSION: Acute diverticulitis of the sigmoid colon without evidence for peridiverticular abscess. Electronically Signed: Magan Vargas MD at 20:33 EDT , Service support , 01/27/19 19:29 Abdomen/Pelvis W IV Cont ONLY [CT] Stat Laboratory Results 01/27/19 01/27/19 01/27/19 19:50 19:50 20:20 WBC 11.6 H RBC 3.19 L Hgb 9.3 L Hct 27.6 L MCV 86.5 MCH 29.2 MCHC 33.7 RDW Std Deviation 42.8 RDW Coeff of [place] 13.5 Plt Count 294 MPV 9.7 Immature Gran % (Auto) 0.400 Neut % (Auto) 72.5 H Lymph % (Auto) 13.4 L [place] % (Auto) 12.8 H Eos % (Auto) 0.7 Baso % (Auto) 0.2 Absolute Neuts (auto) 8.4 H Absolute Lymphs (auto) 1.55 Nucleated RBC % 0 Sodium 136 Potassium 3.0 L Chloride 102 Carbon Dioxide 27.0 Anion Gap 7 BUN 7 Creatinine 0.78 Estim Creat Clear Calc 65.57 Est GFR (MDRD) Af Amer 95 Est GFR (MDRD) Non-Af 78 BUN/Creatinine Ratio 8.9 L Glucose 93 Calcium 8.7 Urine Color Yellow Urine Clarity Sl. Cloudy Urine pH 6.5 Ur Specific [place] 1.005 Urine Protein Negative Urine Glucose (UA) Normal Urine Ketones Negative Urine Occult Blood 10 H Urine Nitrite Negative Urine Bilirubin Negative Urine Urobilinogen Normal Ur Leukocyte Esterase Negative Urine RBC 0-5 SEEN Urine WBC 0 SEEN Ur Squamous Epith Cells 0-5 SEEN Urine Bacteria 0 SEEN Urine Mucus 0 SEEN - Medical Decision Making I repeated her studies including her CT scan to rule out any surgical complications, given her degree of tenderness with rebound tenderness. Her white blood count is similar to what it was before. Since her abdomen was nice and soft I felt it would be reasonable to wait CT and treat her symptoms which is what we did. CT shows diverticulitis without any surgical complications. After morphine she feels no better and needs something more for pain so she was given Dilaudid and the plan will be for admission and IV antibiotics are begun. ED Disposition - Plan for ED Patient: Disposition: Acute Care [facility] Diagnosis: Sigmoid diverticulitis, Failure of outpatient treatment Referrals: Magan Garcia MD [Primary Care Provider] -
[2019-01-27] MEDS: 0.9% Normal Saline 1,000 ML 200 ML IV (19:56)
[2019-01-27] MEDS: Morphine 4 MG/ML Syringe IV (19:56)
[2019-01-27] MEDS: Ondansetron 4 MG/2 ML Vial IV (19:56)
[2019-01-27 20:08] LABS: Absolute Lymphocyte Count 1.55 X10^3/uL (0.83-4.51); Absolute Neutrophil Count 8.4 X10^3/uL (2.0-7.7); Basophil# 0.02 X10^3/uL; Basophil% 0.2 % (0-1); Eosinophil# 0.08 X10^3/uL; Eosinophils% 0.7 % (0-5); Hematocrit 27.6 % (37-47); Hemoglobin 9.3 g/dL (12.0-15.0); Lymphocyte # 1.55 X10^3/ul (4.0); Lymphocyte % 13.4 % (19-41); Mean Corp Hgb Conc 33.7 g/dL (32-36); Mean Corpuscular Hgb 29.2 pg (27.0-32.0); Mean Corpuscular Volume 86.5 fL (81-99); Mean Platelet Vol. 9.7 fl (6.2-12.0); Monocyte# 1.48 X10^3/uL; Monocyte% 12.8 % (0-10); NRBC Flagged by Analyzer 0 % (0-5); Neutrophil # 8.38 X10^3/uL (2.7-7.7); Neutrophil % 72.5 % (47-70); Platelet Count 294 K/mm3 (150-450); RBC Distribution Width CV 13.5 % (11.6-14.6); RBC Distribution Width SD 42.8 fl (35.1-43.9); Red Blood Count 3.19 M/mm3 (4.2-5.4); White Blood Count 11.6 K/mm3 (4.4-11.0)
[2019-01-27 20:17] LABS: Anion Gap 7 (5-15); BUN 7 mg/dL (7-18); BUN/Creat Ratio 8.9 RATIO (10-20); Calcium,Total 8.7 mg/dL (8.5-10.1); Chloride 102 mmol/L (98-107); Creatinine, Serum 0.78 mg/dL (0.55-1.02); EST Glomerular Filtration Rate 78 mL/min (>60); Est Glom Filt Rate - Afr Amer 95 mL/min (>60); Estimated Creatinine Clearance 65.57 ml/min; Glucose 93 mg/dL (74-106); Sodium Level 136 mmol/L (136-145)
[2019-01-27 20:30] LABS: Bacteria 0 SEEN /hpf (None Seen); Mucous, Urine 0 SEEN /hpf (<or=2+); White Blood Cells 0 SEEN /hpf (0-5)
[2019-01-27 20:34] LABS: Color, Urine Yellow (Yellow); Glucose, Dipstick Normal (Normal); Ketone-Dipstick Negative (Negative); Leukocyte Esterase-Dipstick Negative /ul (Negative); Nitrite-Dipstick Negative (Negative); Occult Blood-Urine 10 /ul (Negative); Protein-Dipstick Negative (Negative); Specific Gravity, Urine 1.005 (1.002-1.030); Urine Bilirubin Dipstick Negative (Negative); Urine Clarity Sl. Cloudy (Clear); Urine Urobilinogen Normal (Normal); Urine pH 6.5 (5.0 - 8.0)
[2019-01-27 20:44] LABS: Red Blood Cells-Urine 0-5 SEEN /hpf (0-5); Squamous Epithelial Cells - UA 0-5 SEEN /hpf (5-10)
[2019-01-27] MEDS: HYDROmorphone 1 MG/ML Syringe IV ×2 (21:15→22:34)
[2019-01-27] MEDS: Potassium Chloride 10mEq/100mL 10 MEQ/100 ML IV.SOLN. 100 MEQ IV BOLUS (21:15)
[2019-01-27] MEDS: Ciprofloxacin 400 MG/200 ML BAG 200 MG IV (21:16)
[2019-01-27 21:30] VITALS: BP 153/79
--- NOTE | 2019-01-27 22:13 | EKG12_ITS ---
Test Reason : QT Blood Pressure : / mmHG Vent. Rate : 079 BPM Atrial Rate : 079 BPM P-R Int : 124 ms QRS Dur : 078 ms QT Int : 408 ms P-R-T Axes : 062 041 026 degrees QTc Int : 467 ms Normal sinus rhythm Incomplete right bundle branch block Nonspecific ST and T wave abnormality Abnormal ECG Confirmed by KAT CHACKO, HARMAN ([id number]), script editor ROSY SHEFFIELD ([id number]) on 01/29/2019 9:19:25 AM Referred By: ZOE Confirmed By:HARMAN STEPHENS MD
--- NOTE | 2019-01-27 22:13 | PCM.HP.STD ---
Problem List (1) Sigmoid diverticulitis Status: Acute (2) Tobacco dependence syndrome Status: Chronic History of Present Illness Date of Admission: 01/27/19 Chief Complaint: abdominal pain The patient is a 63 year old F with a significant history of hypertension; CAD S/P stent; tobacco abuse; hyperlipidemia who presented to the emergency department 3 days in a row because of severe left lower quadrant abdominal pain. Her pain radiates to her right side. Associated with her symptoms is nausea and vomiting. Now her vomiting has resolved. Patient has been on Zofran. Also outpatient, patient was started Augmentin and [place]. However her pain persisted. At this new presentation, morphine did not help her pain but Dilaudid improved her pain. Repeat CT of the abdomen and pelvis showed acute diverticulitis of sigmoid colon without evidence of peridiverticular abscess. Past Medical History Past Medical History (Chronic Problems): Chronic Problems Tobacco dependence syndrome (Chronic) History of Clostridium difficile infection (Chronic) Allergies promethazine HCl [From Phenergan] Adverse Reaction (Verified 01/26/19 21:34) Vomiting BEE STING Allergy (Uncoded 01/26/19 21:34) Anaphylaxis Home Medications: Ambulatory Orders Medication Instructions Recorded Hydroxyzine HCl 25 mg PO Q4H PRN PRN 03/11/17 Pantoprazole Sodium [Protonix] 40 mg PO DAILY 03/21/17 L.acidoph,Paracasei, B.lactis 1 each PO BID 12/30/17 [Probiotic] Lisinopril [Zestril] 10 mg PO DAILY 12/30/17 Metoprolol(XL)Succ [Toprol Xl 25 mg PO DAILY 12/30/17 (Beta Funmi)] Amox/Clavulanate Tablet [Augmentin 875 mg PO Q12H #20 tab 01/25/19 Tablet] Duloxetine Hcl [Cymbalta] 60 mg PO DAILY 01/25/19 Hydrocodone/Acetaminophen [[place] 1 ea PO Q4H PRN PRN 7 Days #20 tab 01/25/19 7.5-325 Tablet] Bupropion HCl [Bupropion HCl Sr] 150 mg PO BID 01/27/19 Clopidogrel Bisulfate [Clopidogrel] 75 mg PO DAILY 01/27/19 Ezetimibe 10 mg PO DAILY 01/27/19 Fenofibrate 54 mg PO DAILY 01/27/19 Ropinirole HCl [Requip] 2 mg PO QHS 01/27/19 Surgical History: appendectomy, cholecystectomy, hysterectomy Lives: Spouse/ Significant Other Smoking Status: Current every day smoker Drugs: None - *Family History Maternal History Items: Diabetes, Heart Disease Paternal History Items: Cancer - His father from pancreatic cancer at the age of 51. Review of Systems Constitutional: Denies: Chills, Fever, Weight Change HEENT: Denies: Head Aches, Sinus Congestion, Sinus Drainage Cardiovascular: Denies: Chest Pain, Palpitations Respiratory: Denies: Cough, Shortness of breath at rest, Sputum production Gastrointestinal: Reports: Abdominal Pain, Nausea, Vomiting Genitourinary: Denies: Dysuria Musculoskeletal: Denies: Joint Pain, Joint Tenderness Skin: Denies: Rash, Wounds Neurological: Denies: Numbness, Tingling, Focal weakness Psychiatric: Denies: Anxiety, Depression, Homicidal Ideations, Suicidal Ideations Hematologic/ Lymphatic: Denies: Easy Bruising, Easy Bleeding VTE Information - Inpt Only VTE Present on Admission: No VTE Mechan Device Prophylaxis: None VTE Pharm Prophylaxis ordered?: Yes Patient Problems: Active and Suspected Problems Sigmoid diverticulitis (Acute) Failure of outpatient treatment (Acute) - Physical Exam General: Alert, Oriented x3, Cooperative HEENT: Atraumatic, PERRLA, EOMI, Normocephalic Neck: Supple, No JVD, Negative Carotid Bruits Lungs: Clear to auscultation, Normal air movement Cardiovascular: Regular rate, No murmurs Abdomen: Bowel Sounds Present, Soft, Tender Extremities: No edema, Capillary Refill Less than 3 Seconds Skin: No rashes, No breakdown Musculoskeletal: No Tenderness to Palpation of Joints or Extremities Neurological: Cranial nerves II-XII grossly intact Psych/Mental Status: Normal Affect, Appropriate Vital Signs Temp Pulse Resp BP Pulse Ox 98.7 F 81 16 153/79 H 99 01/27/19 18:43 01/27/19 18:43 01/27/19 18:43 01/27/19 21:30 01/27/19 18:43 Weight: 74.843 kg Body Mass Index (BMI) 27.4 Laboratory Tests Past 24 Hrs 01/27/19 01/27/19 01/27/19 19:50 19:50 20:20 WBC 11.6 H RBC 3.19 L Hgb 9.3 L Hct 27.6 L MCV 86.5 MCH 29.2 MCHC 33.7 RDW Std Deviation 42.8 RDW Coeff of [place] 13.5 Plt Count 294 MPV 9.7 Immature Gran % (Auto) 0.400 Neut % (Auto) 72.5 H Lymph % (Auto) 13.4 L [place] % (Auto) 12.8 H Eos % (Auto) 0.7 Baso % (Auto) 0.2 Absolute Neuts (auto) 8.4 H Absolute Lymphs (auto) 1.55 Nucleated RBC % 0 Sodium 136 Potassium 3.0 L Chloride 102 Carbon Dioxide 27.0 Anion Gap 7 BUN 7 Creatinine 0.78 Estim Creat Clear Calc 65.57 Est GFR (MDRD) Af Amer 95 Est GFR (MDRD) Non-Af 78 BUN/Creatinine Ratio 8.9 L Glucose 93 Calcium 8.7 Urine Color Yellow Urine Clarity Sl. Cloudy Urine pH 6.5 Ur Specific [place] 1.005 Urine Protein Negative Urine Glucose (UA) Normal Urine Ketones Negative Urine Occult Blood 10 H Urine Nitrite Negative Urine Bilirubin Negative Urine Urobilinogen Normal Ur Leukocyte Esterase Negative Urine RBC 0-5 SEEN Urine WBC 0 SEEN Ur Squamous Epith Cells 0-5 SEEN Urine Bacteria 0 SEEN Urine Mucus 0 SEEN Assessment/Plan All Active Problems Sigmoid diverticulitis (Acute) Failure of outpatient treatment (Acute) The patient is a 63 year old F with a significant history of hypertension; CAD s/p stent; tobacco abuse; hyperlipidemia who has failed outpatient treatment for acute diverticulitis.. Acute diverticulitis CT of abdomen and pelvis showed acute diverticulitis of the sigmoid colon without evidence for peridiverticular abscess. CT was independently reviewed. I agree with radiologist interpretation. Patient was given ciprofloxacin and metronidazole at the emergency department will continue. Home Augmentin recently prescribed not continued. Home [place] recently prescribed for moderate pain; and Dilaudid for severe pain. K pad ordered since with Dilaudid patient continues to have pain. Zofran for nausea. Note patient is on QT prolonging drugs of ciprofloxacin and Zofran. We will get a 12-lead EKG and find out baseline QT interval. Reportedly patient follows up with Dr. Carrion and had a colonoscopy about 6 months ago. Upon discharge consider referral to Dr. Carrion. Trend CBC Continue regular diet since patient can tolerate. Hypokalemia On presentation her potassium was 3.0. Receive a 10 mEq IV at the emergency department. Will give p.o. potassium. Lactated Ringer's with potassium ordered. Trend BMP and get magnesium level. Hyperlipidemia Ezetimibe continued Depression: Wellbutrin and Cymbalta continued GERD Protonix continued Restless Leg syndrome Requip continued Tobacco abuse Counseled Nicotine patch makes her itch. Nicotine gum ordered CAD status post stent Plavix continued DVT Prophylaxis Subcutaneous Lovenox. Code Visit Inpatient E&M: 98791 Init Hosp L3
[2019-01-27 22:16] VITALS: BMI 27.6
[2019-01-27 22:18] VITALS: BMI 27.6
[2019-01-27 22:39] LABS: Magnesium 1.3 mg/dL (1.6-2.6)
[2019-01-27] MEDS: metroNIDAZOLE 500 MG/100 ML BAG 100 MG IV (23:02)
[2019-01-27] MEDS: Pramipexole Di-HCl 1 MG Tablet PO (23:12)
[2019-01-27 23:17] VITALS: BP 146/73; PULSE 81; RESP 16; TEMP 37.2; O2SAT 97
[2019-01-28] MEDS: HYDROcodone Bitartrate/Apap 5/325 Tablet PO ×2 (00:59→06:03)
[2019-01-28] MEDS: HYDROmorphone 1 MG/ML Syringe IV ×7 (01:55→20:12)
[2019-01-28 04:36] VITALS: BP 149/85; PULSE 98; RESP 16; TEMP 36.8; O2SAT 99
[2019-01-28] MEDS: metroNIDAZOLE 500 MG/100 ML BAG 100 MG IV ×3 (06:03→22:20)
[2019-01-28 06:17] LABS: Absolute Neutrophil Count 6.9 X10^3/uL (2.0-7.7); Basophil# 0.02 X10^3/uL; Basophil% 0.2 % (0-1); Eosinophil# 0.11 X10^3/uL; Hematocrit 26.4 % (37-47); Hemoglobin 8.6 g/dL (12.0-15.0); Lymphocyte % 18.1 % (19-41); Mean Corp Hgb Conc 32.6 g/dL (32-36); Mean Corpuscular Hgb 28.5 pg (27.0-32.0); Mean Corpuscular Volume 87.4 fL (81-99); Monocyte# 1.52 X10^3/uL; Monocyte% 14.4 % (0-10); NRBC Flagged by Analyzer 0 % (0-5); Neutrophil % 65.6 % (47-70); POSITIVE DIFFERENTIAL YES; Platelet Count 284 K/mm3 (150-450); RBC Distribution Width CV 13.7 % (11.6-14.6); RBC Distribution Width SD 43.8 fl (35.1-43.9); Red Blood Count 3.02 M/mm3 (4.2-5.4); White Blood Count 10.5 K/mm3 (4.4-11.0)
[2019-01-28 06:22] LABS: Anion Gap 3 (5-15); BUN 6 mg/dL (7-18); BUN/Creat Ratio 8.6 RATIO (10-20); Calcium,Total 8.5 mg/dL (8.5-10.1); Chloride 106 mmol/L (98-107); EST Glomerular Filtration Rate 90 mL/min (>60); Est Glom Filt Rate - Afr Amer 109 mL/min (>60); Estimated Creatinine Clearance 76.01 ml/min; Glucose 94 mg/dL (74-106); Sodium Level 137 mmol/L (136-145)
[2019-01-28 06:51] LABS: Differential Indicated SCAN CRITERIA MET
[2019-01-28 06:57] LABS: Differential Comment SCANNED
[2019-01-28] MEDS: 0.9% NaCl Peripheral Flush Adult/Peds IV ×6 (08:36→20:12)
[2019-01-28] MEDS: Ondansetron 4 MG/2 ML Vial IV ×2 (08:36→14:49)
[2019-01-28 09:45] VITALS: BP 157/87; PULSE 69; RESP 18; TEMP 36.5; O2SAT 96
--- NOTE | 2019-01-28 10:10 | CASEMGMT ---
RN CM Assessment Presentation: Diverticulitis Intro role of CM to patient in room. Pt is awake, alert and able to participate in assessment. PCP/Demographics verified. Pt states she is very independent, however if needs arise, her is retired and can assist her. PCP: Dr. Garcia Preferred [facility]acy: [facility] [place] Insurance: MMO Prescription Benefit: yes LNOK: Shankar Yu Living Arrangements: Lives independently. No care needs identified. Transportation: Drives or can drive. DME: none HHC: none Patient DC goals: Home on discharge DC PLAN: Home. Wilner ARMANDO RN ACM
[2019-01-28] MEDS: Ciprofloxacin 400 MG/200 ML BAG 200 MG IV ×2 (10:53→21:06)
[2019-01-28 10:56] VITALS: PULSE 69
[2019-01-28] MEDS: Fenofibrate 48 MG Tablet PO (10:56)
[2019-01-28] MEDS: Ezetimibe 10 MG Tablet PO (10:56)
[2019-01-28] MEDS: Metoprolol(XL)Succ 25 MG Tablet PO (10:56)
[2019-01-28] MEDS: Pantoprazole Sodium 40 MG Tablet PO (10:56)
[2019-01-28] MEDS: Lisinopril 10 MG Tablet PO (10:56)
[2019-01-28] MEDS: buPROPion (SR) 150 MG Tablet.SA PO ×2 (10:56→21:05)
[2019-01-28] MEDS: Enoxaparin 40 MG/0.4 ML Syringe SC (10:57)
[2019-01-28] MEDS: Clopidogrel Bisulfate 75 MG Tablet PO (10:57)
[2019-01-28] MEDS: DULoxetine Hcl 60 MG Capsule PO (10:57)
--- NOTE | 2019-01-28 11:15 | CASEMGMT ---
SW reviewed echart, pt does not have LW/POA forms on file. SW let pt know that the forms are not on file, and asked if able in the future to bring them in so copies can be placed in the chart. Pt states understanding. FRED Murrieta
--- NOTE | 2019-01-28 12:28 | PCM.PROGNOTE ---
<James Whelan - Last Filed: 01/28/19 12:28> Patient Problems: Active and Suspected Problems Sigmoid diverticulitis (Acute) Failure of outpatient treatment (Acute) Subjective: Ongoing abdominal pain. Localized to LLQ, but also diffuse pain. Ongoing nausea, did not vomit this AM, but feels she needs to. No blood in stool. No fever / chills. - Physical Exam General: Alert, Oriented x3, Cooperative HEENT: Atraumatic, PERRLA, EOMI, Normocephalic Neck: Supple, No JVD, Negative Carotid Bruits Lungs: Clear to auscultation, Normal air movement Cardiovascular: Regular rate, No murmurs Abdomen: Bowel Sounds Present, Soft, Non Tender Extremities: No edema, Capillary Refill Less than 3 Seconds Skin: No rashes, No breakdown Musculoskeletal: No Tenderness to Palpation of Joints or Extremities Neurological: Cranial nerves II-XII grossly intact Psych/Mental Status: Normal Affect, Appropriate, Alert and oriented to time, place, person, mood and affect Vital Signs Temp Pulse Resp BP Pulse Ox 97.7 F L 69 18 157/87 H 96 01/28/19 09:45 01/28/19 10:56 01/28/19 09:45 01/28/19 09:45 01/28/19 09:45 Oxygen Delivery Method Room Air Weight: 171 lb 2 oz Body Mass Index (BMI) 27.6 Intake and Output for Last 24 Hours 01/26/19 01/27/19 01/28/19 23:59 23:59 23:59 Intake Total 500 / 500 1799 / 1799 Balance 500 / 500 1799 / 1799 Laboratory Tests Past 24 Hrs 01/27/19 01/27/19 01/27/19 19:50 19:50 19:50 WBC 11.6 H RBC 3.19 L Hgb 9.3 L Hct 27.6 L MCV 86.5 MCH 29.2 MCHC 33.7 RDW Std Deviation 42.8 RDW Coeff of [place] 13.5 Plt Count 294 MPV 9.7 Immature Gran % (Auto) 0.400 Neut % (Auto) 72.5 H Lymph % (Auto) 13.4 L Cross % (Auto) 12.8 H Eos % (Auto) 0.7 Baso % (Auto) 0.2 Absolute Neuts (auto) 8.4 H Absolute Lymphs (auto) 1.55 Nucleated RBC % 0 Differential Comment Sodium 136 Potassium 3.0 L Chloride 102 Carbon Dioxide 27.0 Anion Gap 7 BUN 7 Creatinine 0.78 Estim Creat Clear Calc 65.57 Est GFR (MDRD) Af Amer 95 Est GFR (MDRD) Non-Af 78 BUN/Creatinine Ratio 8.9 L Glucose 93 Calcium 8.7 Magnesium 1.3 L Urine Color Urine Clarity Urine pH Ur Specific [place] Urine Protein Urine Glucose (UA) Urine Ketones Urine Occult Blood Urine Nitrite Urine Bilirubin Urine Urobilinogen Ur Leukocyte Esterase Urine RBC Urine WBC Ur Squamous Epith Cells Urine Bacteria Urine Mucus 01/27/19 01/28/19 01/28/19 20:20 05:34 05:34 WBC 10.5 RBC 3.02 L Hgb 8.6 L Hct 26.4 L MCV 87.4 MCH 28.5 MCHC 32.6 RDW Std Deviation 43.8 RDW Coeff of [place] 13.7 Plt Count 284 MPV 10.0 Immature Gran % (Auto) 0.700 Neut % (Auto) 65.6 Lymph % (Auto) 18.1 L Cross % (Auto) 14.4 H Eos % (Auto) 1.0 Baso % (Auto) 0.2 Absolute Neuts (auto) 6.9 Absolute Lymphs (auto) 1.90 Nucleated RBC % 0 Differential Comment SCANNED Sodium 137 Potassium 4.0 Chloride 106 Carbon Dioxide 28.0 Anion Gap 3 L BUN 6 L Creatinine 0.70 Estim Creat Clear Calc 76.01 Est GFR (MDRD) Af Amer 109 Est GFR (MDRD) Non-Af 90 BUN/Creatinine Ratio 8.6 L Glucose 94 Calcium 8.5 Magnesium Urine Color Yellow Urine Clarity Sl. Cloudy Urine pH 6.5 Ur Specific [place] 1.005 Urine Protein Negative Urine Glucose (UA) Normal Urine Ketones Negative Urine Occult Blood 10 H Urine Nitrite Negative Urine Bilirubin Negative Urine Urobilinogen Normal Ur Leukocyte Esterase Negative Urine RBC 0-5 SEEN Urine WBC 0 SEEN Ur Squamous Epith Cells 0-5 SEEN Urine Bacteria 0 SEEN Urine Mucus 0 SEEN Medical Necessity - Tobacco Use Smoking Status: Current every day smoker Assessment/Plan All Active Problems Sigmoid diverticulitis (Acute) Failure of outpatient treatment (Acute) 1. Acute sigmoid diverticulitis - continue cipro, flagyl, supportive care. Still with severe pain, nausea. Pain regimen adjusted. WBC improved. No fever. 2. hypokalemia - resolved 3. GERD - protonix 4. Tobacco abuse - gum prn, patch makes her itch 5. CAD - prior stent 6. RLS - requip 7. Depression - home meds. DVT ppx: lovenox DC planning: still in severe pain, reassess in AM. This patient was seen by James Whelan PA-C under the supervision of Dr. Trevino. <Tiburcio Trevino F - Last Filed: 01/28/19 12:54> - Physical Exam Vital Signs Temp Pulse Resp BP Pulse Ox 97.7 F L 69 18 157/87 H 96 01/28/19 09:45 01/28/19 10:56 01/28/19 09:45 01/28/19 09:45 01/28/19 09:45 Oxygen Delivery Method Room Air Weight: 171 lb 2 oz Body Mass Index (BMI) 27.6 Intake and Output for Last 24 Hours 01/26/19 01/27/19 01/28/19 23:59 23:59 23:59 Intake Total 500 / 500 1799 / 1799 Balance 500 / 500 1799 / 1799 Laboratory Tests Past 24 Hrs 01/27/19 01/27/19 01/27/19 19:50 19:50 19:50 WBC 11.6 H RBC 3.19 L Hgb 9.3 L Hct 27.6 L MCV 86.5 MCH 29.2 MCHC 33.7 RDW Std Deviation 42.8 RDW Coeff of [place] 13.5 Plt Count 294 MPV 9.7 Immature Gran % (Auto) 0.400 Neut % (Auto) 72.5 H Lymph % (Auto) 13.4 L Cross % (Auto) 12.8 H Eos % (Auto) 0.7 Baso % (Auto) 0.2 Absolute Neuts (auto) 8.4 H Absolute Lymphs (auto) 1.55 Nucleated RBC % 0 Differential Comment Sodium 136 Potassium 3.0 L Chloride 102 Carbon Dioxide 27.0 Anion Gap 7 BUN 7 Creatinine 0.78 Estim Creat Clear Calc 65.57 Est GFR (MDRD) Af Amer 95 Est GFR (MDRD) Non-Af 78 BUN/Creatinine Ratio 8.9 L Glucose 93 Calcium 8.7 Magnesium 1.3 L Urine Color Urine Clarity Urine pH Ur Specific [place] Urine Protein Urine Glucose (UA) Urine Ketones Urine Occult Blood Urine Nitrite Urine Bilirubin Urine Urobilinogen Ur Leukocyte Esterase Urine RBC Urine WBC Ur Squamous Epith Cells Urine Bacteria Urine Mucus 01/27/19 01/28/19 01/28/19 20:20 05:34 05:34 WBC 10.5 RBC 3.02 L Hgb 8.6 L Hct 26.4 L MCV 87.4 MCH 28.5 MCHC 32.6 RDW Std Deviation 43.8 RDW Coeff of [place] 13.7 Plt Count 284 MPV 10.0 Immature Gran % (Auto) 0.700 Neut % (Auto) 65.6 Lymph % (Auto) 18.1 L Cross % (Auto) 14.4 H Eos % (Auto) 1.0 Baso % (Auto) 0.2 Absolute Neuts (auto) 6.9 Absolute Lymphs (auto) 1.90 Nucleated RBC % 0 Differential Comment SCANNED Sodium 137 Potassium 4.0 Chloride 106 Carbon Dioxide 28.0 Anion Gap 3 L BUN 6 L Creatinine 0.70 Estim Creat Clear Calc 76.01 Est GFR (MDRD) Af Amer 109 Est GFR (MDRD) Non-Af 90 BUN/Creatinine Ratio 8.6 L Glucose 94 Calcium 8.5 Magnesium Urine Color Yellow Urine Clarity Sl. Cloudy Urine pH 6.5 Ur Specific [place] 1.005 Urine Protein Negative Urine Glucose (UA) Normal Urine Ketones Negative Urine Occult Blood 10 H Urine Nitrite Negative Urine Bilirubin Negative Urine Urobilinogen Normal Ur Leukocyte Esterase Negative Urine RBC 0-5 SEEN Urine WBC 0 SEEN Ur Squamous Epith Cells 0-5 SEEN Urine Bacteria 0 SEEN Urine Mucus 0 SEEN Code Visit Addendum: Dr. Trevino I personally examined the patient and reviewed the chart. I agree with the above. 63-year-old female presenting with mild diverticulitis. On admission her white count was 11.6 and she was complaining of left lower quadrant abdominal pain. She presented to the ER last 2 days with pain and initially was sent home with antibiotics however she was unable to keep anything down and when she presented she was admitted for IV antibiotics. CT scan of her abdomen shows mild inflammation of the sigmoid colon. She is started on Cipro and Flagyl which will be continued. We will advance her diet as tolerated. Inpatient E&M: 83843 Subs Hosp L2
[2019-01-28 20:09] VITALS: BP 143/69; PULSE 76; RESP 16; TEMP 37.1; O2SAT 99
[2019-01-28] MEDS: Pramipexole Di-HCl 1 MG Tablet PO (21:05)
[2019-01-29] VITALS (7 sets, daily range): BP systolic 106–168; BP diastolic 69–87; PULSE 77–94; RESP 16–18; TEMP 36.6–36.8; O2SAT 94–98
[2019-01-29] MEDS: Ondansetron 4 MG/2 ML Vial IV ×4 (00:45→19:52)
[2019-01-29] MEDS: 0.9% NaCl Peripheral Flush Adult/Peds IV ×4 (00:45→13:12)
[2019-01-29] MEDS: HYDROmorphone 1 MG/ML Syringe IV ×5 (00:49→19:52)
[2019-01-29] MEDS: metroNIDAZOLE 500 MG/100 ML BAG 100 MG IV ×3 (06:00→21:19)
[2019-01-29] MEDS: Ciprofloxacin 400 MG/200 ML BAG 200 MG IV ×2 (09:07→22:22)
[2019-01-29] MEDS: DULoxetine Hcl 60 MG Capsule PO (09:14)
[2019-01-29] MEDS: Pantoprazole Sodium 40 MG Tablet PO (09:15)
[2019-01-29] MEDS: Clopidogrel Bisulfate 75 MG Tablet PO (09:15)
[2019-01-29] MEDS: Fenofibrate 48 MG Tablet PO (09:15)
[2019-01-29] MEDS: Enoxaparin 40 MG/0.4 ML Syringe SC (09:15)
[2019-01-29] MEDS: Metoprolol(XL)Succ 25 MG Tablet PO (09:15)
[2019-01-29] MEDS: buPROPion (SR) 150 MG Tablet.SA PO ×2 (09:16→21:19)
[2019-01-29] MEDS: Lisinopril 10 MG Tablet PO (09:16)
[2019-01-29] MEDS: Ezetimibe 10 MG Tablet PO (09:16)
--- NOTE | 2019-01-29 12:34 | PCM.PROGNOTE ---
<James Whelan - Last Filed: 01/29/19 12:34> Patient Problems: Active and Suspected Problems Sigmoid diverticulitis (Acute) Failure of outpatient treatment (Acute) Subjective: Increased nausea and vomiting this AM. Pt has ongoing abdominal pain worse LLQ. No fever / chills. No diarrhea - normal BM this AM. No SOB. No dizziness/lh. - Physical Exam General: Alert, Oriented x3, Cooperative HEENT: Atraumatic, PERRLA, EOMI, Normocephalic Neck: Supple, No JVD, Negative Carotid Bruits Lungs: Clear to auscultation, Normal air movement Cardiovascular: Regular rate, No murmurs Abdomen: Bowel Sounds Present, Soft, Hypoactive Bowel Sounds, Tender - LLQ tenderness without guarding or rigidity. Extremities: No edema, Capillary Refill Less than 3 Seconds Skin: No rashes, No breakdown Musculoskeletal: No Tenderness to Palpation of Joints or Extremities Neurological: Cranial nerves II-XII grossly intact Psych/Mental Status: Normal Affect, Appropriate, Alert and oriented to time, place, person, mood and affect Vital Signs Temp Pulse Resp BP Pulse Ox 97.9 F 89 16 139/69 H 94 01/29/19 08:55 01/29/19 09:15 01/29/19 08:55 01/29/19 08:55 01/29/19 08:55 Oxygen Delivery Method Room Air Weight: 171 lb 2 oz Body Mass Index (BMI) 27.6 Intake and Output for Last 24 Hours 01/27/19 01/28/19 01/29/19 23:59 23:59 23:59 Intake Total 500 / 500 1799 / 2489 840 / 840 Balance 500 / 500 1799 / 2489 840 / 840 Medical Necessity - Tobacco Use Smoking Status: Current every day smoker Assessment/Plan All Active Problems Sigmoid diverticulitis (Acute) Failure of outpatient treatment (Acute) 1. Acute sigmoid diverticulitis - continue IV abx, fluids, antiemetics, clear liquid diet. If continue to worsen consider surgery c/s. Still good BMs daily, no diarrhea/blood. No fever/chills/wbc resolved. 2. hypokalemia - resolved 3. GERD - protonix 4. Tobacco abuse - gum prn, patch makes her itch 5. CAD - prior stent 6. RLS - requip 7. Depression - home meds. DVT ppx: lovenox DC planning: ongoing severe pain. This patient was seen by James Whelan PA-C under the supervision of Dr. Trevino. <Tiburcio Trevino F - Last Filed: 01/29/19 15:38> - Physical Exam Vital Signs Temp Pulse Resp BP Pulse Ox 98.3 F 77 16 157/72 H 97 01/29/19 15:00 01/29/19 15:00 01/29/19 15:00 01/29/19 15:00 01/29/19 15:00 Oxygen Delivery Method Room Air Weight: 171 lb 2 oz Body Mass Index (BMI) 27.6 Intake and Output for Last 24 Hours 01/27/19 01/28/19 01/29/19 23:59 23:59 23:59 Intake Total 500 / 500 1799 / 2489 840 / 840 Balance 500 / 500 1799 / 2489 840 / 840 Code Visit Addendum: Dr. Trevino I personally examined the patient and reviewed the chart. I agree with the above. 63-year-old female presenting with mild diverticulitis. On admission her white count was 11.6, which corrected to 10.5, and she was complaining of left lower quadrant abdominal pain. She presented to the ER last 2 days with pain and initially was sent home with antibiotics however she was unable to keep anything down and when she presented she was admitted for IV antibiotics. CT scan of her abdomen shows mild inflammation of the sigmoid colon. She is started on Cipro and Flagyl which will be continued. We will advance her diet as tolerated, though she is still complaining of significant left-sided pain though heart rate and respiratory rate are stable during these episodes.. Inpatient E&M: [id number] Subs Hosp L2
[2019-01-29] MEDS: 0.9% Normal Saline 1,000 ML 75 ML IV (13:08)
[2019-01-29] MEDS: Pramipexole Di-HCl 1 MG Tablet PO (21:19)
[2019-01-29] MEDS: hydrOXYzine PAM 25 MG Capsule PO (22:25)
[2019-01-30] VITALS (7 sets, daily range): BP systolic 121–153; BP diastolic 49–75; PULSE 74–80; RESP 16–18; TEMP 36.7–36.8; O2SAT 94–97
[2019-01-30] MEDS: proCHLORPERazine 10 MG/2 ML Vial 5 MG IV ×3 (01:16→17:58)
[2019-01-30] MEDS: HYDROmorphone 1 MG/ML Syringe IV ×5 (02:34→20:42)
[2019-01-30] MEDS: 0.9% NaCl Peripheral Flush Adult/Peds IV (02:34)
[2019-01-30] MEDS: 0.9% Normal Saline 1,000 ML 75 ML IV ×2 (02:35→17:57)
[2019-01-30] MEDS: metroNIDAZOLE 500 MG/100 ML BAG 100 MG IV ×3 (04:59→22:14)
[2019-01-30 06:42] LABS: Absolute Lymphocyte Count 2.08 X10^3/uL (0.83-4.51); Absolute Neutrophil Count 6.3 X10^3/uL (2.0-7.7); Basophil# 0.02 X10^3/uL; Basophil% 0.2 % (0-1); Eosinophil# 0.08 X10^3/uL; Eosinophils% 0.8 % (0-5); Hematocrit 24.9 % (37-47); Hemoglobin 8.2 g/dL (12.0-15.0); Lymphocyte # 2.08 X10^3/ul (4.0); Lymphocyte % 21.5 % (19-41); Mean Corp Hgb Conc 32.9 g/dL (32-36); Mean Corpuscular Hgb 28.4 pg (27.0-32.0); Mean Corpuscular Volume 86.2 fL (81-99); Monocyte# 1.16 X10^3/uL; NRBC Flagged by Analyzer 0 % (0-5); Neutrophil # 6.26 X10^3/uL (2.7-7.7); Neutrophil % 64.8 % (47-70); Platelet Count 335 K/mm3 (150-450); RBC Distribution Width CV 13.8 % (11.6-14.6); RBC Distribution Width SD 43.2 fl (35.1-43.9); Red Blood Count 2.89 M/mm3 (4.2-5.4); White Blood Count 9.7 K/mm3 (4.4-11.0)
[2019-01-30 06:55] LABS: Anion Gap 8 (5-15); BUN 4 mg/dL (7-18); BUN/Creat Ratio 6.2 RATIO (10-20); Calcium,Total 7.9 mg/dL (8.5-10.1); Chloride 103 mmol/L (98-107); Creatinine, Serum 0.65 mg/dL (0.55-1.02); EST Glomerular Filtration Rate 98 mL/min (>60); Est Glom Filt Rate - Afr Amer 118 mL/min (>60); Estimated Creatinine Clearance 81.85 ml/min; Glucose 93 mg/dL (74-106); Potassium 2.9 mmol/L (3.5-5.1); Sodium Level 139 mmol/L (136-145)
[2019-01-30] MEDS: Potassium Chloride 10mEq/100mL 10 MEQ/100 ML IV.SOLN. 100 MEQ IV BOLUS ×6 (09:06→14:22)
[2019-01-30] MEDS: Ciprofloxacin 400 MG/200 ML BAG 200 MG IV ×2 (09:09→21:00)
[2019-01-30] MEDS: DULoxetine Hcl 60 MG Capsule PO (09:10)
[2019-01-30] MEDS: Lisinopril 10 MG Tablet PO (09:10)
[2019-01-30] MEDS: Clopidogrel Bisulfate 75 MG Tablet PO (09:10)
[2019-01-30] MEDS: Fenofibrate 48 MG Tablet PO (09:10)
[2019-01-30] MEDS: Metoprolol(XL)Succ 25 MG Tablet PO (09:10)
[2019-01-30] MEDS: Pantoprazole Sodium 40 MG Tablet PO (09:11)
[2019-01-30] MEDS: Ezetimibe 10 MG Tablet PO (09:11)
[2019-01-30] MEDS: buPROPion (SR) 150 MG Tablet.SA PO ×2 (09:11→20:55)
[2019-01-30] MEDS: Enoxaparin 40 MG/0.4 ML Syringe SC (09:11)
[2019-01-30] MEDS: HYDROcodone Bitartrate/Apap 5/325 Tablet PO ×3 (13:22→22:19)
--- NOTE | 2019-01-30 14:15 | PN_ITS ---
<James Whelan - Last Filed: 01/30/19 14:15> Patient Problems: Active and Suspected Problems Sigmoid diverticulitis (Acute) Failure of outpatient treatment (Acute) Subjective: Some nausea this AM, less so than yesterday. Abdominal pain mildly improved, still mainly LLQ pain. No fever/chills. 2 normal BMs yesterday. Patient agreeable to advance to full liquids. This is 1st confirmed episode of diverticulitis for her. - Physical Exam General: Alert, Oriented x3, Cooperative HEENT: Atraumatic, PERRLA, EOMI, Normocephalic Neck: Supple, No JVD, Negative Carotid Bruits Lungs: Clear to auscultation, Normal air movement Cardiovascular: Regular rate, No murmurs Abdomen: Bowel Sounds Present, Soft, Tender - especially LUQ/LLQ Extremities: No edema, Capillary Refill Less than 3 Seconds Skin: No rashes, No breakdown Musculoskeletal: No Tenderness to Palpation of Joints or Extremities Neurological: Cranial nerves II-XII grossly intact Psych/Mental Status: Normal Affect, Appropriate, Alert and oriented to time, place, person, mood and affect Vital Signs Temp Pulse Resp BP Pulse Ox 98.1 F 78 18 121/68 H 94 01/30/19 08:19 01/30/19 09:10 01/30/19 08:19 01/30/19 08:19 01/30/19 08:19 Oxygen Delivery Method Room Air Weight: 171 lb 2 oz Body Mass Index (BMI) 27.6 Intake and Output for Last 24 Hours 01/28/19 01/29/19 01/30/19 23:59 23:59 23:59 Intake Total 1799 / 2489 840 / 1490 1712 / 1712 Output Total 400 / 400 Balance 1799 / 2489 840 / 1490 1312 / 1312 Laboratory Tests Past 24 Hrs 01/30/19 01/30/19 06:30 06:30 WBC 9.7 RBC 2.89 L Hgb 8.2 L Hct 24.9 L MCV 86.2 MCH 28.4 MCHC 32.9 RDW Std Deviation 43.2 RDW Coeff of [place] 13.8 Plt Count 335 MPV 9.0 Immature Gran % (Auto) 0.700 Neut % (Auto) 64.8 Lymph % (Auto) 21.5 [place] % (Auto) 12.0 H Eos % (Auto) 0.8 Baso % (Auto) 0.2 Absolute Neuts (auto) 6.3 Absolute Lymphs (auto) 2.08 Nucleated RBC % 0 Sodium 139 Potassium 2.9 L Chloride 103 Carbon Dioxide 28.0 Anion Gap 8 BUN 4 L Creatinine 0.65 Estim Creat Clear Calc 81.85 Est GFR (MDRD) Af Amer 118 Est GFR (MDRD) Non-Af 98 BUN/Creatinine Ratio 6.2 L Glucose 93 Calcium 7.9 L Medical Necessity - Tobacco Use Smoking Status: Current every day smoker Assessment/Plan All Active Problems Sigmoid diverticulitis (Acute) Failure of outpatient treatment (Acute) 1. Acute sigmoid diverticulitis - continue IV abx, fluids, antiemetics. Patient symptoms now improving. Still good BMs daily, no diarrhea/blood. No fever/chills/wbc resolved. Advance to full liquids. 2. hypokalemia - replete. check mag. 3. GERD - protonix 4. Tobacco abuse - gum prn, patch makes her itch 5. CAD - prior stent 6. RLS - requip 7. Depression - home meds. DVT ppx: lovenox DC planning: advance diet. improving. This patient was seen by James Whelan PA-C under the supervision of Dr. Trevino. <Tiburcio Trevino F - Last Filed: 01/30/19 14:49> - Physical Exam Vital Signs Temp Pulse Resp BP Pulse Ox 98.2 F 74 18 140/49 H 95 01/30/19 14:29 01/30/19 14:29 01/30/19 14:29 01/30/19 14:29 01/30/19 14:29 Oxygen Delivery Method Room Air Weight: 171 lb 2 oz Body Mass Index (BMI) 27.6 Intake and Output for Last 24 Hours 01/28/19 01/29/19 01/30/19 23:59 23:59 23:59 Intake Total 1799 / 2489 840 / 1490 1712 / 1712 Output Total 400 / 400 Balance 1799 / 2489 840 / 1490 1312 / 1312 Laboratory Tests Past 24 Hrs 01/30/19 01/30/19 01/30/19 06:30 06:30 06:30 WBC 9.7 RBC 2.89 L Hgb 8.2 L Hct 24.9 L MCV 86.2 MCH 28.4 MCHC 32.9 RDW Std Deviation 43.2 RDW Coeff of [place] 13.8 Plt Count 335 MPV 9.0 Immature Gran % (Auto) 0.700 Neut % (Auto) 64.8 Lymph % (Auto) 21.5 [place] % (Auto) 12.0 H Eos % (Auto) 0.8 Baso % (Auto) 0.2 Absolute Neuts (auto) 6.3 Absolute Lymphs (auto) 2.08 Nucleated RBC % 0 Sodium 139 Potassium 2.9 L Chloride 103 Carbon Dioxide 28.0 Anion Gap 8 BUN 4 L Creatinine 0.65 Estim Creat Clear Calc 81.85 Est GFR (MDRD) Af Amer 118 Est GFR (MDRD) Non-Af 98 BUN/Creatinine Ratio 6.2 L Glucose 93 Calcium 7.9 L Magnesium 1.1 L Code Visit Addendum: Dr. Trevino I personally examined the patient and reviewed the chart. I agree with the above. 63-year-old female presenting with mild diverticulitis. On admission her white count was 11.6, which corrected to 9.7, and she was complaining of left lower quadrant abdominal pain. She presented to the ER last 2 days with pain and initially was sent home with antibiotics however she was unable to keep anything down and when she presented she was admitted for IV antibiotics. CT scan of her abdomen shows mild inflammation of the sigmoid colon. She is started on Cipro and Flagyl which will be continued. We will advance her diet as tolerated, though she is still complaining of left-sided abdominal pain which has improved. She was also hypokalemic today which was replaced, and will be monitored. Inpatient E&M: [id number] Subs Hosp L2
[2019-01-30 14:42] LABS: Magnesium 1.1 mg/dL (1.6-2.6)
[2019-01-30] MEDS: Ondansetron 4 MG/2 ML Vial IV (16:29)
[2019-01-30] MEDS: Pramipexole Di-HCl 1 MG Tablet PO (20:55)
[2019-01-30] MEDS: Nicotine Polacrilex 2 MG GUM PO (20:56)
[2019-01-31 04:02] VITALS: BP 152/74; PULSE 80; RESP 16; TEMP 36.8; O2SAT 93
[2019-01-31] MEDS: HYDROcodone Bitartrate/Apap 5/325 Tablet PO ×2 (04:06→13:14)
[2019-01-31] MEDS: proCHLORPERazine 10 MG/2 ML Vial 5 MG IV ×2 (04:09→13:15)
[2019-01-31] MEDS: metroNIDAZOLE 500 MG/100 ML BAG 100 MG IV ×2 (05:46→13:18)
[2019-01-31 06:14] LABS: Anion Gap 7 (5-15); BUN 3 mg/dL (7-18); BUN/Creat Ratio 4.4 RATIO (10-20); Calcium,Total 8.1 mg/dL (8.5-10.1); Chloride 103 mmol/L (98-107); Creatinine, Serum 0.68 mg/dL (0.55-1.02); EST Glomerular Filtration Rate 92 mL/min (>60); Est Glom Filt Rate - Afr Amer 111 mL/min (>60); Estimated Creatinine Clearance 78.24 ml/min; Glucose 126 mg/dL (74-106); Magnesium 1.5 mg/dL (1.6-2.6); Potassium 3.3 mmol/L (3.5-5.1); Sodium Level 137 mmol/L (136-145)
[2019-01-31 06:18] LABS: Hemoglobin 8.4 g/dL (12.0-15.0)
[2019-01-31 07:00] VITALS: O2SAT 92
[2019-01-31 07:50] VITALS: BP 162/76; PULSE 79; RESP 18; TEMP 36.7; O2SAT 98
[2019-01-31 07:54] VITALS: PULSE 79
[2019-01-31] MEDS: Clopidogrel Bisulfate 75 MG Tablet PO (07:54)
[2019-01-31] MEDS: Metoprolol(XL)Succ 25 MG Tablet PO (07:54)
[2019-01-31] MEDS: Lisinopril 10 MG Tablet PO (07:54)
[2019-01-31] MEDS: Ezetimibe 10 MG Tablet PO (07:54)
[2019-01-31] MEDS: Pantoprazole Sodium 40 MG Tablet PO (07:54)
[2019-01-31] MEDS: Fenofibrate 48 MG Tablet PO (07:54)
[2019-01-31] MEDS: DULoxetine Hcl 60 MG Capsule PO (07:54)
[2019-01-31] MEDS: buPROPion (SR) 150 MG Tablet.SA PO (07:54)
[2019-01-31] MEDS: Enoxaparin 40 MG/0.4 ML Syringe SC (07:54)
[2019-01-31 09:00] LABS: Phosphorus 3.1 mg/dL (2.5-4.9)
[2019-01-31] MEDS: Ondansetron 4 MG/2 ML Vial IV (09:29)
[2019-01-31] MEDS: 0.9% NaCl Peripheral Flush Adult/Peds IV ×3 (09:29→13:15)
--- NOTE | 2019-01-31 10:00 | NURSING ---
Pt attempted to eat breakfast, pt complains of severe abdominal pain and small emesis. Pt to be medicated for nausea and pain.
[2019-01-31] MEDS: HYDROmorphone 1 MG/ML Syringe IV (10:17)
--- NOTE | 2019-01-31 11:08 | PCM.DC ---
- Discharge Diagnoses Current Active Problems: Current Active and Chronic Problems Sigmoid diverticulitis (Acute) Failure of outpatient treatment (Acute) You will use the following diet at home:: No restrictions - advance slowly back to normal diet as tolerated. Start with bland soft foods, no spicy, acidic, or greasy foods. Your food should be the consistency of: Regular Your liquids should be the consistency of: Regular/Thin Discharge Activity: Return to Normal Activity Additional Instructions: Finish your entire home course of antibiotics. Allergies/Adverse Reactions: Allergies promethazine HCl [From Phenergan] Adverse Reaction (Verified 01/26/19 21:34) Vomiting BEE STING Allergy (Uncoded 01/26/19 21:34) Anaphylaxis Medications to take at Discharge Hydroxyzine HCl 25 mg PO Q4H PRN PRN 03/11/17 Pantoprazole Sodium [Protonix] 40 mg PO DAILY 03/21/17 L.acidoph,Paracasei, B.lactis [Probiotic] 1 each PO BID 12/30/17 Lisinopril [Zestril] 10 mg PO DAILY 12/30/17 Metoprolol(XL)Succ [Toprol Xl (Beta Funmi)] 25 mg PO DAILY 12/30/17 Amox/Clavulanate Tablet [Augmentin Tablet] 875 mg PO Q12H #20 tab 01/25/19 Duloxetine Hcl [Cymbalta] 60 mg PO DAILY 01/25/19 Bupropion HCl [Bupropion HCl Sr] 150 mg PO BID 01/27/19 Clopidogrel Bisulfate [Clopidogrel] 75 mg PO DAILY 01/27/19 Ezetimibe 10 mg PO DAILY 01/27/19 Fenofibrate 54 mg PO DAILY 01/27/19 Ropinirole HCl [Requip] 2 mg PO QHS 01/27/19 Hydrocodone/Acetaminophen [[place] 7.5-325 Tablet] 1 ea PO Q4H PRN PRN 4 Days #20 tab 01/31/19 The following prescriptions were given: Hydrocodone/Acetaminophen [[place] 7.5-325 Tablet] 1 ea PO Q4H PRN PRN 4 Days #20 tab PRN Reason: Pain Transmission Status: Sent to [facility] Primary Care Physician: Magan Garcia MD [Primary Care Provider] - Please follow up with your Primary Care Physician in: 1-2 weeks Test Results: Test results from this visit will be discussed in further detail at your follow-up appointment, if applicable. Proposed Discharge Date: 01/31/19
[2019-01-31] MEDS: Ciprofloxacin 400 MG/200 ML BAG 200 MG IV (11:57)
[2019-01-31 14:21] VITALS: BP 136/77; PULSE 79; RESP 18; TEMP 36.8; O2SAT 97
--- NOTE | 2019-01-31 14:26 | DS.PCM_ITS ---
<James Wehlan - Last Filed: 01/31/19 14:26> Discharge Date and Diagnosis - Problem List Patient Problems: Active and Suspected Problems Sigmoid diverticulitis (Acute) Failure of outpatient treatment (Acute) Date of Admission: 01/27/19 Date of Discharge: 01/31/19 - Primary Discharge Diagnosis Active and Suspected Problems Acute Sigmoid diverticulitis hypokalemia hypomagnesemia GERD Tobacco abuse CAD with prior stent RLS Depression - Secondary Discharge Diagnosis Chronic Problems Tobacco dependence syndrome (Chronic) History of Clostridium difficile infection (Chronic) Hospital Course and Treatment Imaging Results: IMAGING: CT/Abdomen/Pelvis W IV Cont ONLY IMPRESSION: Acute diverticulitis of the sigmoid colon without evidence for peridiverticular abscess. Operations: None Procedures: None Summary of Care Provided: Hospital course: The patient is a 63 year old F with pmhx as above, no prior hx diverticulitis who presented to the ER with c/o abdominal pain most prominently in the LLQ. Eva garcia had been in the emergency room 3 days in a row because of this pain. She had been diagnosed with acute diverticulitis and was started on Augmentin and [place]. She had taken 1 days worth of Augmentin and did not have any relief. CT of her abdomen demonstrated acute diverticulitis of the sigmoid colon without a peridiverticular abscess. She also had a mildly elevated white count and no fev er. She required Dilaudid for pain control in the emergency room. She was admitted to the general medical floor and started on Cipro and Flagyl along with supportive care including IV fluids and as needed pain regimen with Dilaudid and oxycodone. The patient continued to have significant left lower quadrant abdominal pain with nausea and vomiting for several days with a slow recovery. She was eventually able to be transition from an clear liquid diet to a soft mechanical diet. Her leukocytosis resolved. She was prescribed Zofran and hydrocodone for pain control at home. She is advised to complete her prior regimen of Augmentin for diverticulitis. She was discharged home in stable condition. She will need to follow-up with her PCP in 1 to 2 weeks. This patient was seen by James Whelan PA-C under the supervision of Doctor Trevino. [] Patient Problems: Active and Suspected Problems Sigmoid diverticulitis (Acute) Failure of outpatient treatment (Acute) - Physical Exam General: Alert, Oriented x3, Cooperative HEENT: Atraumatic, PERRLA, EOMI, Normocephalic Neck: Supple, No JVD, Negative Carotid Bruits Lungs: Clear to auscultation, Normal air movement Cardiovascular: Regular rate, No murmurs Abdomen: Bowel Sounds Present, Soft, Tender - LLQ no guarding or rigidity. Extremities: No edema, Capillary Refill Less than 3 Seconds Skin: No rashes, No breakdown Musculoskeletal: No Tenderness to Palpation of Joints or Extremities Neurological: Cranial nerves II-XII grossly intact Psych/Mental Status: Normal Affect, Appropriate, Alert and oriented to time, place, person, mood and affect Vital Signs Temp Pulse Resp BP Pulse Ox 98.3 F 79 18 136/77 H 97 01/31/19 14:21 01/31/19 14:21 01/31/19 14:21 01/31/19 14:21 01/31/19 14:21 Oxygen Delivery Method Room Air Weight: 171 lb 2 oz Body Mass Index (BMI) 27.6 Intake and Output for Last 24 Hours 01/29/19 01/30/19 01/31/19 23:59 23:59 23:59 Intake Total 840 / 1490 2738 / 3780 2154 / 2154 Output Total 400 / 700 900 / 900 Balance 840 / 1490 2338 / 3080 1254 / 1254 Laboratory Tests Past 24 Hrs 01/30/19 01/31/19 01/31/19 06:30 04:25 04:25 Hgb 8.4 L Hct 26.0 L Sodium 137 Potassium 3.3 L Chloride 103 Carbon Dioxide 27.0 Anion Gap 7 BUN 3 L Creatinine 0.68 Estim Creat Clear Calc 78.24 Est GFR (MDRD) Af Amer 111 Est GFR (MDRD) Non-Af 92 BUN/Creatinine Ratio 4.4 L Glucose 126 H Calcium 8.1 L Phosphorus Magnesium 1.1 L 1.5 L 01/31/19 04:25 Hgb Hct Sodium Potassium Chloride Carbon Dioxide Anion Gap BUN Creatinine Estim Creat Clear Calc Est GFR (MDRD) Af Amer Est GFR (MDRD) Non-Af BUN/Creatinine Ratio Glucose Calcium Phosphorus 3.1 Magnesium Discharge Diet: No Restrictions - slowly advance diet to normal diet, no acidic, spicy, or greasy foods. Discharge Activity: Return to Normal Activity Home Medications: Medications to take at Discharge Hydroxyzine HCl 25 mg PO Q4H PRN PRN 03/11/17 Pantoprazole Sodium [Protonix] 40 mg PO DAILY 03/21/17 L.acidoph,Paracasei, B.lactis [Probiotic] 1 each PO BID 12/30/17 Lisinopril [Zestril] 10 mg PO DAILY 12/30/17 Metoprolol(XL)Succ [Toprol Xl (Beta Funmi)] 25 mg PO DAILY 12/30/17 Amox/Clavulanate Tablet [Augmentin Tablet] 875 mg PO Q12H #20 tab 01/25/19 Duloxetine Hcl [Cymbalta] 60 mg PO DAILY 01/25/19 Bupropion HCl [Bupropion HCl Sr] 150 mg PO BID 01/27/19 Clopidogrel Bisulfate [Clopidogrel] 75 mg PO DAILY 01/27/19 Ezetimibe 10 mg PO DAILY 01/27/19 Fenofibrate 54 mg PO DAILY 01/27/19 Ropinirole HCl [Requip] 2 mg PO QHS 01/27/19 Hydrocodone/Acetaminophen [[place] 7.5-325 Tablet] 1 ea PO Q4H PRN PRN 4 Days #20 tab 01/31/19 Ondansetron HCl [Zofran] 4 mg PO Q6H PRN PRN #20 tab 01/31/19 Following Prescrptions Were Given to Patient: Hydrocodone/Acetaminophen [[place] 7.5-325 Tablet] 1 ea PO Q4H PRN PRN 4 Days #20 tab PRN Reason: Pain Transmission Status: Received by [facility] Ondansetron HCl [Zofran] 4 mg PO Q6H PRN PRN #20 tab PRN Reason: Nausea Transmission Status: Received by [facility] Primary Care Physician: Magan Garcia MD [Primary Care Provider] - Please follow up with your Primary Care Physician in: 1-2 weeks Disposition: Home Minutes spent on discharge:: 35 Patient Condition:: Stable Medical Necessity - Tobacco Use Smoking Status: Current every day smoker Meaningful Use Info Meaningful Use Diagnoses (Choose all that apply): None applicable <Tiburcio Trevino - Last Filed: 01/31/19 14:46> Discharge Date and Diagnosis - Primary Discharge Diagnosis Active and Suspected Problems Sigmoid diverticulitis (Acute) Failure of outpatient treatment (Acute) - Secondary Discharge Diagnosis Chronic Problems Tobacco dependence syndrome (Chronic) History of Clostridium difficile infection (Chronic) Hospital Course and Treatment Summary of Care Provided: The patient is a 63 year old F [] - Physical Exam Vital Signs Temp Pulse Resp BP Pulse Ox 98.3 F 79 18 136/77 H 97 01/31/19 14:21 01/31/19 14:21 01/31/19 14:21 01/31/19 14:21 01/31/19 14:21 Oxygen Delivery Method Room Air Weight: 171 lb 2 oz Body Mass Index (BMI) 27.6 Intake and Output for Last 24 Hours 01/29/19 01/30/19 01/31/19 23:59 23:59 23:59 Intake Total 840 / 1490 2738 / 3780 2154 / 2154 Output Total 400 / 700 900 / 900 Balance 840 / 1490 2338 / 3080 1254 / 1254 Laboratory Tests Past 24 Hrs 01/31/19 01/31/19 01/31/19 04:25 04:25 04:25 Hgb 8.4 L Hct 26.0 L Sodium 137 Potassium 3.3 L Chloride 103 Carbon Dioxide 27.0 Anion Gap 7 BUN 3 L Creatinine 0.68 Estim Creat Clear Calc 78.24 Est GFR (MDRD) Af Amer 111 Est GFR (MDRD) Non-Af 92 BUN/Creatinine Ratio 4.4 L Glucose 126 H Calcium 8.1 L Phosphorus 3.1 Magnesium 1.5 L Code Visit Addendum: Dr. Trevino I personally examined the patient and reviewed the chart. I agree with the above. 63-year-old female presenting with mild diverticulitis. She has significant pain on admission and therefore she was monitored for IV antibiotics. She had been previously seen in the ER and discharged home with oral antibiotics however she was unable to keep anything down secondary to nausea. Nausea improved over the course of her stay, and she tolerated the antibiotics well. She does have Augmentin at home which she can continue on discharge today. She is tolerating a diet and wants to go home today. Both her magnesium and her potassium were replaced today. She will need to follow-up with her PCP in 3 to 5 days. Inpatient E&M: [id number] Disch Hosp
--- NOTE | 2019-02-01 14:32 | CASEMGMT ---
CAROLIN SMITH DC PHONE CALL DC DATE: 01/31/19 DC Disposition: Home Diagnosis on Discharge: Diverticulitis LACE/STRATA: 14/4 Intro role of CM to patient's . Pt was unable to come to phone. Per her , pt is doing well, does not have questions re: prescriptions, f/u or instructions. He is able to assist her with any care needs. No care improvement suggestions were given. Wilner ARMANDO RN ACM
== END 2019-01-31 16:37 | disposition home or self-care (01) | DRG 392 ==
LOC: ED 20:54 → MS3 01-28 01:58
PROVIDERS: Physician Assistant; Admitting Provider Hospitalist; Emergency Provider Emergency Medicine; Family Provider Family Medicine; PCP Family Medicine; Visit Provider Family Medicine
DX: K57.32 Diverticulitis of large intestine without perforation or abscess without bleeding (principal); E78.5 Hyperlipidemia, unspecified; I25.10 Atherosclerotic heart disease of native coronary artery without angina pectoris; Z95.5 Presence of coronary angioplasty implant and graft; I10 Essential (primary) hypertension; E87.6 Hypokalemia; G25.81 Restless legs syndrome; K21.9 Gastro-esophageal reflux disease without esophagitis; F32.9 Major depressive disorder, single episode, unspecified; F17.200 Nicotine dependence, unspecified, uncomplicated
CPT/HCPCS: 36415; 74177; 80048; 81001; 83735; 84100; 85014; 85018; 85025; 93005; 99284; J7030; J7120; Q9967; A4216; J0744; J2405

== ENCOUNTER 2019-02-01 21:13 | Emergency (ER) | payer OTHER, SELFPAY ==
[2019-02-01 21:14] VITALS: BP 156/100; PULSE 91; RESP 18; TEMP 36.6; O2SAT 96; BMI 27.4
== END 2019-02-01 21:43 ==
LOC: ED 22:04
PROVIDERS: Emergency Provider Emergency Medicine; Family Provider Family Medicine; PCP Family Medicine
DX: R10.9 Unspecified abdominal pain (principal)

== ENCOUNTER → 2019-07-30 08:56 | Outpatient (CLI) | payer MEDICARE, OTHER, SELFPAY ==
--- NOTE | 2019-07-30 09:13 | RAD_ITS ---
STUDY: BARIUM ESOPHAGRAM, AIR-CONTRAST REASON FOR EXAM: Female, 64 years old. Chronic choking on solids and tablets but worsening recently; nausea, vomiting after eating; on meds for reflux RADIATION DOSAGE (If Supplied By Facility): CTDIvol = ( ) mGy, DLP = ( ) mGycm. Individualized dose optimization techniques were used for this CT.? FLUOROSCOPY TIME (if supplied): ( 1:09 ) minutes TECHNIQUE: Oral contrast COMPARISON: None. FINDINGS: Patient showed difficulty in initiation of swallowing and performed a chin tuck maneuver to initiate swallowing. Because of this, a modified barium swallow or cookie swallow is recommended for more thorough evaluation of the swallowing mechanism and the possibility of aspiration. There is normal pathologic activity in the proximal and mid esophagus. The distal esophagus however demonstrated tertiary contractions. There is both intraesophageal and GE reflux noted. No evidence of a hiatal hernia. A 13 mm barium pill did pass through the esophagus without difficulty. 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 Modified barium swallow recommended for further evaluation of the swallowing mechanism and to exclude aspiration Electronically Signed: Maurice Lin MD at 11:00 EST , Service support ,
== END ==
PROVIDERS: PCP Family Medicine; Referring Provider Internal Medicine Gastroenterology; Visit Provider Internal Medicine Gastroenterology
DX: R13.10 Dysphagia, unspecified (principal)
CPT/HCPCS: 74220

== ENCOUNTER 2019-08-21 13:59 | Emergency (ER) | payer MEDICARE, OTHER, SELFPAY ==
[2019-08-21 13:59] VITALS: BP 86/57; PULSE 84; RESP 18; TEMP 36.2; O2SAT 94; BMI 25.8
--- NOTE | 2019-08-21 14:10 | CT_ITS ---
STUDY: CT ABDOMEN AND PELVIS WITHOUT CONTRAST REASON FOR EXAM: Female, 64 years old. Left lower quadrant pain RADIATION DOSAGE (If Supplied By Facility): CTDIvol = ( 8.32 ) mGy, DLP = ( 394.98 ) mGycm TECHNIQUE: Transaxial images were obtained from the dome of the diaphragm to the symphysis pubis without oral contrast, and without intravenous contrast. Sagittal and coronal images were reconstructed. Individualized dose optimization techniques were used for this CT. COMPARISON: 27 January 2019 FINDINGS: Examination is limited due to lack of IV contrast. Detection of inflammatory or vascular pathology is limited as well as assessment of solid organs. Diagnostic information is available. The visualized lung bases are unremarkable. The visualized portions of the heart are within normal limits. There is no intestinal obstruction. Appendix is surgically removed. There is possible mild inflammatory change versus artifactual appearance in the pelvis involving the sigmoid. There is orally administered contrast mixed with distal colonic stool, making evaluation suboptimal. There is cholecystectomy. There is no biliary dilation. Solid organs are unremarkable. Osseous structures are intact with degenerative changes at the L5-S1. CT/Abdomen/Pelvis without Cont IMPRESSION: 1. Possible mild sigmoid diverticulitis. 2. If more definitive assessment is necessary recommend repeating the examination after maximal colonic evacuation and with IV contrast. Electronically Signed: Bryan Castillo, at 16:28 EST Tel , Service support ,
--- NOTE | 2019-08-21 14:12 | ED.VIS.GEN ---
History of Present Illness Chief Complaint: Abd Pain Informant: Patient Onset: Days Context: Gradual Onset Timing: Continuous Current Severity: Moderate Maximum Severity: Severe Narrative: The patient is a 64-year-old female with medical history significant for prior diverticulitis with prolonged hospitalization who presents to the emergency department similar symptoms. Patient states of the past 2 days, she is had pain in her left lower quadrant. States pain is been worsening. She did have a fever yesterday but none today. She does admit to chills and sweats. She states she has been moving her bowels without issue. She denies any back pain. She states that she was recently started on metformin 2 weeks ago and is been having some diarrhea from that. She does admit to some increased thirst. She denies chest pain and is otherwise been in her normal state of health. Prior similar symptoms: Yes Recent Illness/Hospitalization: No Past Medical History - Allergies and Home Meds Allergies/Adverse Reactions: Allergies promethazine HCl [From Phenergan] Adverse Reaction (Verified 08/21/19 14:04) Vomiting BEE STING Allergy (Uncoded 08/21/19 14:04) Anaphylaxis Primary Care Physician: Magan Garcia MD [Primary Care Provider] - Prior records reviewed: Yes Past Medical History: - - Hypertension, diabetes Surgical History: appendectomy, cholecystectomy, hysterectomy Smoking Status: Unknown if ever smoked - Family History Maternal Family History: Reports: Diabetes, Heart Disease Paternal Family History: Reports: Cancer - His father from pancreatic cancer at the age of 51. Review of Systems General: Reports: Chills, Fever. Denies: Sweats Eyes: Denies: Visual changes - bilaterally, Diplopia ENT: Denies: Rhinorrhea, Sore throat Cardiovascular: Denies: Chest pain, Palpitations Respiratory: Denies: Dyspnea, Cough, Dyspnea on exertion Gastrointestinal: Reports: Abdominal pain, Nausea, Diarrhea. Denies: Vomiting, Melena, Hematochezia Genitourinary: Denies: Dysuria, Hematuria, Frequency Musculoskeletal: Denies: Back pain, Extremity Pain Skin: Denies: Rash, Wounds Neurological: Denies: Headache, Weakness, Numbness Physical Exam Vital Signs/Narrative: Vital Signs Temp Pulse Resp BP Pulse Ox 08/21/19 13:59 97.1 F L 84 18 86/57 L 94 Inital Vital Signs reviewed: Yes General: Well nourished, Well developed, No Acute Distress Head: Normocephalic, Atraumatic Eyes: Perrl, EOMI ENT: Moist mucous membranes, No rhinorrhea Neck: Supple, Nontender Cardiovascular: Regular rate, Regular rhythm, No murmurs Respiratory: No distress, CTA bilaterally, Chest nontender Abdomen: Soft, Nondistended, Normal bowel sounds, Tender. Negative for: Guarding, Rebound tenderness Back: Nontender, Normal Inspection Extremities: Nontender, No edema Skin: Normal color, No rash Neurological: Alert, Oriented x3, Cranial nerves II-XII grossly intact, Normal Strength, Normal Sensation Psychological: Normal affect, Normal Mood Diagnostic/Tx/Re-eval Abnormal Lab Results 08/21/19 08/21/19 08/21/19 14:20 14:20 14:20 WBC 12.3 H RBC 3.06 L Hgb 8.4 L Hct 26.5 L MCV 86.6 MCH 27.5 MCHC 31.7 L RDW Std Deviation 46.8 H RDW Coeff of [place] 14.8 H Plt Count 291 MPV 9.6 Immature Gran % (Auto) 0.500 Neut % (Auto) 69.8 Lymph % (Auto) 15.4 L [place] % (Auto) 12.9 H Eos % (Auto) 1.2 Baso % (Auto) 0.2 Absolute Neuts (auto) 8.6 H Absolute Lymphs (auto) 1.89 Nucleated RBC % 0 Diff Path Review May foll Platelet Estimate ADEQUATE Hypochromasia 1+ Schistocytes RARE Sodium 135 L Potassium 4.2 Chloride 106 Carbon Dioxide 23.0 Anion Gap 6 BUN 38 H Creatinine 1.71 H Estim Creat Clear Calc 30.70 Est GFR (MDRD) Af Amer 39 L Est GFR (MDRD) Non-Af 32 L BUN/Creatinine Ratio 22.2 H Glucose 84 Lactic Acid 0.9 Calcium 8.6 Total Bilirubin 0.30 AST 34 ALT 34 Alkaline Phosphatase 96 Total Protein 7.1 Albumin 3.1 L Globulin 4.0 Albumin/Globulin Ratio 0.8 L - Medical Decision Making Clinically, the patient does appear to be dry. She was recently started on metformin and did have some diarrhea which is since now resolved. Screening labs were obtained. She is anemic but this is chronic. However, she does have evidence of acute kidney injury and her creatinine is almost tripled. She was given IV fluid bolus. The patient will undergo CT with just oral contrast and this will be followed up by the oncoming physician. Impression 1. Left lower quadrant abdominal pain 2. Acute kidney injury ED Disposition - Plan for ED Patient: Referrals: Magan Garcia MD [Primary Care Provider] -
[2019-08-21] MEDS: fentaNYL 100 MCG/2 ML Ampul 25 MCG IV (14:24)
[2019-08-21] MEDS: 0.9% Normal Saline 1,000 ML 1000 ML IV (14:24)
[2019-08-21] MEDS: Ondansetron 4 MG/2 ML Vial IV (14:24)
[2019-08-21 14:35] LABS: Absolute Lymphocyte Count 1.89 X10^3/uL (0.83-4.51); Absolute Neutrophil Count 8.6 X10^3/uL (2.0-7.7); Basophil# 0.02 X10^3/uL; Basophil% 0.2 % (0-1); Differential Indicated SCAN CRITERIA MET; Eosinophil# 0.15 X10^3/uL; Eosinophils% 1.2 % (0-5); Hematocrit 26.5 % (37-47); Hemoglobin 8.4 g/dL (12.0-15.0); Lymphocyte # 1.89 X10^3/ul (4.0); Lymphocyte % 15.4 % (19-41); Mean Corp Hgb Conc 31.7 g/dL (32-36); Mean Corpuscular Hgb 27.5 pg (27.0-32.0); Mean Corpuscular Volume 86.6 fL (81-99); Mean Platelet Vol. 9.6 fl (6.2-12.0); Monocyte# 1.59 X10^3/uL; Monocyte% 12.9 % (0-10); NRBC Flagged by Analyzer 0 % (0-5); Neutrophil # 8.57 X10^3/uL (2.7-7.7); Neutrophil % 69.8 % (47-70); POSITIVE DIFFERENTIAL YES; Platelet Count 291 K/mm3 (150-450); RBC Distribution Width CV 14.8 % (11.6-14.6); RBC Distribution Width SD 46.8 fl (35.1-43.9); Red Blood Count 3.06 M/mm3 (4.2-5.4); White Blood Count 12.3 K/mm3 (4.4-11.0)
[2019-08-21 14:53] LABS: ALB/GLOB Ratio 0.8 RATIO (0.9-2.4); AST(SGOT) 34 U/L (15-37); Alanine Aminotransfer ALT/SGPT 34 U/L (13-56); Albumin, Serum 3.1 g/dL (3.2-5.0); Alkaline Phosphatase 96 U/L (45-117); Anion Gap 6 (5-15); BUN 38 mg/dL (7-18); BUN/Creat Ratio 22.2 RATIO (10-20); Calcium,Total 8.6 mg/dL (8.5-10.1); Chloride 106 mmol/L (98-107); Creatinine, Serum 1.71 mg/dL (0.55-1.02); EST Glomerular Filtration Rate 32 mL/min (>60); Est Glom Filt Rate - Afr Amer 39 mL/min (>60); Glucose 84 mg/dL (74-106); Potassium 4.2 mmol/L (3.5-5.1); Protein, Total 7.1 g/dL (6.4-8.2); Sodium Level 135 mmol/L (136-145)
[2019-08-21 14:54] LABS: Hypochromasia 1+; Platelet Estimate ADEQUATE (ADEQ); Schistocytes RARE
[2019-08-21 14:57] LABS: Lactic Acid 0.9 mmol/L (0.4-1.9)
[2019-08-21 15:38] LABS: Bacteria 0 SEEN /hpf (None Seen); Mucous, Urine 0 SEEN /hpf (<or=2+); Red Blood Cells-Urine 0 SEEN /hpf (0-5)
[2019-08-21 15:41] LABS: Color, Urine Yellow (Yellow); Glucose, Dipstick Normal (Normal); Ketone-Dipstick Negative (Negative); Leukocyte Esterase-Dipstick 100 /ul (Negative); Nitrite-Dipstick Negative (Negative); Occult Blood-Urine Negative /ul (Negative); Protein-Dipstick Negative (Negative); Specific Gravity, Urine 1.015 (1.002-1.030); Urine Bilirubin Dipstick Negative (Negative); Urine Clarity Sl. Cloudy (Clear); Urine Urobilinogen Normal (Normal)
[2019-08-21] MEDS: Morphine 4 MG/ML Syringe IV (15:46)
[2019-08-21] MEDS: 0.9% Normal Saline 1,000 ML 999 ML IV (15:46)
[2019-08-21 15:48] LABS: Squamous Epithelial Cells - UA 10-25 SEEN /hpf (5-10); White Blood Cells 0-5 SEEN /hpf (0-5)
[2019-08-21 15:50] LABS: Amorphous Sediment 1+ URATE
--- NOTE | 2019-08-21 18:07 | ED.VISSUMM ---
- ER Visit Summary Date of Service: 08/21/19 This patient was checked out to me with CT pending. This has returned. Test Results: Clinical Impression(s) from Imaging Studies Abdomen/Pelvis CT 08/21/19 14:10 IMPRESSION: 1. Possible mild sigmoid diverticulitis. 2. If more definitive assessment is necessary recommend repeating the examination after maximal colonic evacuation and with IV contrast. Electronically Signed: Bryan Castillo, at 16:28 EST Tel , Service support , Emergency Department Course and Treatment: Patient received a liter of normal saline. She got morphine for pain. She is resting comfortably. She was given Augmentin p.o. Treatment Plan: Patient feels well and would like to go home. She will be discharged with Agency, Zofran, and Augmentin. Instructed to follow-up with primary care physician in 3 to 5 days for another exam. Return to the emergency department for any worsening symptoms. Disposition: To home in improved and stable condition. Impression: 1 1. Diverticulitis. This note was generated with [employer] dictation software. It may contain incorrect words, spelling, and punctuation that were not noted in review of the chart prior to signing ED Disposition - Plan for ED Patient: Instructions: Diverticulitis Prescriptions: Amox/Clavulanate Tablet [Augmentin Tablet] 875 mg PO Q12H #20 tablet Hydrocodone Bitart/Apap 5-325 [Agency 5MG-325MG] 1 tablet PO Q6H PRN PRN 3 Days #10 tablet PRN Reason: Pain Ondansetron [Zofran Odt] 4 mg PO Q8H PRN PRN #10 tablet PRN Reason: Nausea Referrals: Magan Garcia MD [Primary Care Provider] - 3-5 Days if not improving
[2019-08-21] MEDS: Amox/Clavulanate 875 MG Tablet PO (18:30)
[2019-08-21 18:31] VITALS: BP 132/99; PULSE 76; PULSE 78; RESP 14; RESP 18; O2SAT 98
[2019-08-24 09:57] LABS: Pathologist Review Reviewed
== END 2019-08-21 18:35 | disposition home or self-care (01) ==
LOC: ED 14:52
PROVIDERS: Emergency Provider Emergency Medicine; PCP Family Medicine
DX: K57.92 Diverticulitis of intestine, part unspecified, without perforation or abscess without bleeding (principal); R10.32 Left lower quadrant pain; N17.9 Acute kidney failure, unspecified; E11.9 Type 2 diabetes mellitus without complications; I10 Essential (primary) hypertension; Z82.49 Family history of ischemic heart disease and other diseases of the circulatory system; Z88.8 Allergy status to other drugs, medicaments and biological substances; Z90.49 Acquired absence of other specified parts of digestive tract; Z90.710 Acquired absence of both cervix and uterus
CPT/HCPCS: 74176; 80053; 81001; 83605; 85025; 96361; 96374; 96375; 99284; J7030; A4216; J2405

== ENCOUNTER 2019-08-24 13:12 | Inpatient (IN) | payer MEDICARE, OTHER, SELFPAY ==
[2019-08-24] VITALS (12 sets, daily range): BP systolic 92–133; BP diastolic 54–101; PULSE 83–99; RESP 16–20; TEMP 36.1–37.7; O2SAT 91–100; BMI 27.4
--- NOTE | 2019-08-24 14:27 | ED.RN ---
PT HAS RIGHT FACIAL DROOP WHEN SMILING, PT AND SON REPORTED THAT PT HAS ALWAYS HAD A CROOKED SMILE DR. AMADOR AWARE OF PT'S SMILE WITH FACIAL DROOP, PER SON.
--- NOTE | 2019-08-24 14:45 | CT_ITS ---
STUDY: CT BRAIN WITHOUT CONTRAST REASON FOR EXAM: Female, 64 years old. Slurred speech RADIATION DOSAGE (If Supplied By Facility): CTDIvol = ( 44.99 ) mGy, DLP = ( 796.11 ) mGycm TECHNIQUE: Transaxial CT imaging of the brain was performed without administration of intravenous contrast material. Individualized dose optimization techniques were used for this CT. COMPARISON: None. FINDINGS: There is no acute bleed or infarct. There are chronic ischemic and atrophic changes. The ventricles are normal in configuration. There is no hydrocephalus. The visualized paranasal sinuses are clear. The mastoid air cells are well aerated. There is no skull fracture. CT/Brain/Head without Contrast IMPRESSION: No acute intracranial abnormality. Chronic ischemic and atrophic changes. Electronically Signed: Theo James, at 17:05 EST Tel , Service support ,
--- NOTE | 2019-08-24 14:48 | CT_ITS ---
STUDY: CT ABDOMEN AND PELVIS WITH CONTRAST REASON FOR EXAM: Female, 64 years old. Abdominal pain RADIATION DOSAGE (If Supplied By Facility): CTDIvol = ( 16.54 ) mGy, DLP = ( 1163.2 ) mGycm TECHNIQUE: Transaxial images were obtained from the dome of the diaphragm to the symphysis pubis with oral contrast. 100 ml of Isovue-300 contrast was administered. Sagittal and coronal images were reconstructed. Individualized dose optimization techniques were used for this CT. COMPARISON: 08/21/2019 FINDINGS: The visualized lung bases are clear. The visualized portions of the heart and pericardium are within normal limits. The patient is status post cholecystectomy. The liver is within normal limits. There are no suspicious hepatic lesions. The spleen is normal in size. The pancreas is within normal limits. The adrenal glands are within normal limits. There are no renal or ureteral stones. There is no hydronephrosis. There are no focal renal lesions. Normal visualized stomach. There is no bowel obstruction. There is a large amount of stool throughout the colon, consistent with constipation. There is bowel wall thickening in the sigmoid colon which is consistent with colitis. The appendix is not visualized, but there are no findings to suggest acute appendicitis. The aorta is normal in caliber. Again noted are atherosclerotic calcifications in the aorta and its branches. There is no abdominal or pelvic free air, free fluid, fluid collection or lymphadenopathy. There are no destructive osseous lesions. CT/Abdomen/Pelvis WITH Contrast IMPRESSION: Colitis in the sigmoid colon. No bowel obstruction. Constipation. No free air, free fluid or fluid collection. Electronically Signed: Theo James, at 17:08 EST Tel , Service support ,
--- NOTE | 2019-08-24 14:49 | EKG12_ITS ---
Test Reason : NEURO Blood Pressure : / mmHG Vent. Rate : 084 BPM Atrial Rate : 084 BPM P-R Int : 138 ms QRS Dur : 072 ms QT Int : 366 ms P-R-T Axes : 048 039 052 degrees QTc Int : 432 ms Normal sinus rhythm Nonspecific ST and T wave abnormality Abnormal ECG Confirmed by MONIKA MANCUSO ([id number]), development editor MANDY SANDHU ([id number]) on 08/25/2019 2:20:13 PM Referred By: RUBI/ANDREA Confirmed By:MONIKA MANCUSO
[2019-08-24] MEDS: 0.9% Normal Saline 1,000 ML 1000 ML IV (15:11)
[2019-08-24] MEDS: Morphine 4 MG/ML Syringe IV ×2 (15:14→16:06)
[2019-08-24] MEDS: Ondansetron 4 MG/2 ML Vial IV ×2 (15:14→22:37)
[2019-08-24 15:32] LABS: Absolute Lymphocyte Count 2.06 X10^3/uL (0.83-4.51); Absolute Neutrophil Count 7.5 X10^3/uL (2.0-7.7); Basophil# 0.02 X10^3/uL; Basophil% 0.2 % (0-1); Eosinophil# 0.24 X10^3/uL; Eosinophils% 2.2 % (0-5); Hematocrit 25.6 % (37-47); Hemoglobin 8.2 g/dL (12.0-15.0); Lymphocyte # 2.06 X10^3/ul (4.0); Lymphocyte % 18.6 % (19-41); Mean Corpuscular Hgb 27.9 pg (27.0-32.0); Mean Corpuscular Volume 87.1 fL (81-99); Mean Platelet Vol. 9.5 fl (6.2-12.0); Monocyte# 1.18 X10^3/uL; Monocyte% 10.7 % (0-10); NRBC Flagged by Analyzer 0 % (0-5); Neutrophil # 7.49 X10^3/uL (2.7-7.7); Neutrophil % 67.8 % (47-70); Platelet Count 333 K/mm3 (150-450); RBC Distribution Width CV 15.4 % (11.6-14.6); RBC Distribution Width SD 49.1 fl (35.1-43.9); Red Blood Count 2.94 M/mm3 (4.2-5.4); White Blood Count 11.1 K/mm3 (4.4-11.0)
[2019-08-24 15:41] LABS: International Normalized Ratio 1.1; Prothrombin Time (Protime)PT. 14.3 SECONDS (11.7-14.9)
[2019-08-24 15:43] LABS: ALB/GLOB Ratio 0.7 RATIO (0.9-2.4); AST(SGOT) 50 U/L (15-37); Alanine Aminotransfer ALT/SGPT 69 U/L (13-56); Alkaline Phosphatase 167 U/L (45-117); Anion Gap 7 (5-15); BUN 20 mg/dL (7-18); BUN/Creat Ratio 15.6 RATIO (10-20); Calcium,Total 8.9 mg/dL (8.5-10.1); Chloride 105 mmol/L (98-107); Creatinine, Serum 1.28 mg/dL (0.55-1.02); EST Glomerular Filtration Rate 45 mL/min (>60); Est Glom Filt Rate - Afr Amer 54 mL/min (>60); Estimated Creatinine Clearance 41.02 ml/min; Globulin 4.5 g/dL (2.2-4.2); Glucose 86 mg/dL (74-106); Potassium 3.8 mmol/L (3.5-5.1); Protein, Total 7.5 g/dL (6.4-8.2); Sodium Level 136 mmol/L (136-145)
[2019-08-24 16:01] LABS: Lactic Acid 1.1 mmol/L (0.4-1.9)
[2019-08-24 16:05] LABS: Bacteria 0 SEEN /hpf (None Seen); Mucous, Urine 0 SEEN /hpf (<or=2+); Red Blood Cells-Urine 0 SEEN /hpf (0-5); White Blood Cells 0 SEEN /hpf (0-5)
[2019-08-24 16:23] LABS: Color, Urine Yellow (Yellow); Glucose, Dipstick Normal (Normal); Ketone-Dipstick Negative (Negative); Leukocyte Esterase-Dipstick Negative /ul (Negative); Nitrite-Dipstick Negative (Negative); Occult Blood-Urine Negative /ul (Negative); Protein-Dipstick Negative (Negative); Urine Bilirubin Dipstick Negative (Negative); Urine Clarity Sl. Cloudy (Clear); Urine Urobilinogen Normal (Normal)
[2019-08-24 16:25] LABS: Ammonia < 10.0 umol/L (11-32)
[2019-08-24 16:37] LABS: Squamous Epithelial Cells - UA 0-5 SEEN /hpf (5-10)
--- NOTE | 2019-08-24 17:31 | ED.DCSUM_ITS ---
- ER Visit Summary Date of Service: 08/24/19 Chief Complaint: Confusion, hallucinations, abdominal pain History of Present Illness: The patient is a 64 F who presents with increasing confusion, visual hallucinations, and lower abdominal pain that is been getting worse over the past 3 days. Patient states her abdominal pain is over the left lower quadrant. Patient states she has been taking Augmentin for probable diverticulitis. Patient states her pain has been getting worse. Patient states nothing in particular seems to make her pain better or worse. Patient states that she has been having some visual hallucinations where she sees white bars in her vision. Son states the patient has been confused more over the last couple days. Physical Examination: Vital signs are stable. Patient is afebrile. Patient is in no acute distress. Oral mucosa is pink and moist. Neck is supple. Trachea is midline. There is no JVD. Heart was regular rate and rhythm. Lungs are clear and equal bilaterally. Abdomen is soft. Bowel sounds are normal. There is tenderness in the left lower quadrant. There is some mild distention. There is no rebound or guarding noted. Cranial nerves II through XII are intact. There are no focal motor or sensory deficits noted. Patient does admit to intermittent visual hallucinations of white bars but denies seeing any people or hearing any voices. Test Results: EKG showed normal sinus rhythm with a rate of 84. There are nonspecific ST-T wave changes. This was unchanged compared to previous EKG dated 01/27/2019. CBC shows a mild leukocytosis of 11.1. There is also anemia with a hemoglobin of 8.2 and hematocrit of 25.6. This is chronic for the patient. BUN and creatinine was slightly elevated at 20 and 1.28. These are also chronic for the patient. INR is normal. Urinalysis does not show any evidence of urinary tract infection. Troponin was normal. Lactate was normal. Ammonia level was normal. CT scan of the brain was obtained. There are chronic changes but no acute process. CT scan of the abdomen and pelvis was obtained. There is colitis but there is no obstruction or free air. There is some constipation. Emergency Department Course and Treatment: Patient was given morphine and Zofran here in the emergency department. Patient was given IV fluids. Patient was given a repeat dose of morphine. Patient was started on Cipro and Flagyl. Since the patient still having pain in her left lower quadrant and she is having confusion and visual hallucinations I recommended admission to the hospital. Patient and family are agreeable with this. Case was discussed with the hospitalist. He will admit the patient for observation. Patient and family understand and are agreeable with the plan. All questions were answered. Disposition: Admit for observation Impression: 1. Altered mental status 2. Colitis 3. Failed outpatient therapy This note was generated with [employer] dictation software. It may contain incorrect words, spelling, and punctuation that were not noted in review of the chart prior to signing ED Disposition - Plan for ED Patient: Disposition: Acute Care Hospital [facility] Diagnosis: Altered mental status, Colitis Referrals: Magan Garcia MD [Primary Care Provider] -
--- NOTE | 2019-08-24 17:38 | PCM.HP.STD ---
<Pita Brandon - Last Filed: 08/24/19 18:10> Problem List (1) Sigmoid diverticulitis Status: Acute (2) Failure of outpatient treatment Status: Acute (3) Tobacco dependence syndrome Status: Chronic (4) History of Clostridium difficile infection Status: Chronic History of Present Illness Date of Admission: 08/24/19 Chief Complaint: Abdominal pain, confusion. The patient is a 64 year old F who presents emergency room due to abdominal pain and confusion. Patient's son at bedside who is visiting from [place] reports he stayed with patient over weekend and she had intermittent confusion and falls. He reports this is abnormal for patient. She was reported to have hallucinations and talking about things that did not make sense. He denies noticing slurred speech or focal deficits. Patient has right facial droop which is somewhat chronic however her son feels her right facial droop is worse now than it has been in the past. Patient also reports left eye vision changes. She was told by a cd reactor operator this was due to Urias's palsy. She has never had an MRI. Patient reports abdominal pain which has been ongoing for greater than 1 week. She was placed on Augmentin by her primary care provider for diverticulitis last week. She denies fever, chills. Denies nausea, vomiting. Reports abdominal distention and significant abdominal tenderness, worse on left lower quadrant. Denies diarrhea. She has a past medical history of diverticulitis, GERD, tobacco dependence, CAD with history of stent, restless leg syndrome, depression, anxiety, hyperlipidemia, IBS with constipation. Past Medical History Past Medical History (Chronic Problems): Chronic Problems Tobacco dependence syndrome (Chronic) History of Clostridium difficile infection (Chronic) Allergies promethazine HCl [From Phenergan] Adverse Reaction (Verified 08/24/19 13:16) Vomiting BEE STING Allergy (Uncoded 08/24/19 13:16) Anaphylaxis Home Medications: Ambulatory Orders Medication Instructions Recorded Pantoprazole Sodium [Protonix] 40 mg PO DAILY 03/21/17 L.acidoph,Paracasei, B.lactis 1 cap PO DAILY 12/30/17 [Probiotic] Lisinopril [Zestril] 10 mg PO DAILY 12/30/17 Metoprolol(XL)Succ [Toprol Xl 25 mg PO DAILY 12/30/17 (Beta Funmi)] Duloxetine Hcl [Cymbalta] 60 mg PO DAILY 01/25/19 Bupropion HCl [Bupropion HCl Sr] 150 mg PO BID 01/27/19 Clopidogrel Bisulfate [Clopidogrel] 75 mg PO DAILY 01/27/19 Ezetimibe 10 mg PO DAILY 01/27/19 Fenofibrate 54 mg PO DAILY 01/27/19 Amox/Clavulanate Tablet [Augmentin 875 mg PO Q12H #20 tab 08/21/19 Tablet] Ondansetron [Zofran Odt] 4 mg PO Q8H PRN PRN #10 tab 08/21/19 Doxepin HCl 100 mg PO QHS 08/24/19 Duloxetine HCl 30 mg PO DAILY 08/24/19 Lubiprostone [Amitiza] 24 mcg PO BID 08/24/19 Ropinirole HCl [Ropinirole ER] 4 mg PO QHS 08/24/19 Surgical History: appendectomy, cholecystectomy, hysterectomy Psychiatric History: Anxiety, Depression 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 Review of Systems Constitutional: Denies: Chills, Fever, Weight Change HEENT: Denies: Head Aches, Sinus Congestion, Sinus Drainage Cardiovascular: Denies: Chest Pain, Palpitations Respiratory: Denies: Cough, Shortness of breath at rest, Sputum production Gastrointestinal: Reports: Abdominal Pain. Denies: Constipation, Diarrhea, Nausea, Vomiting Genitourinary: Denies: Dysuria Musculoskeletal: Denies: Joint Pain, Joint Tenderness Skin: Denies: Rash, Wounds Neurological: Reports: Balance problems. Denies: Focal weakness VTE Information - Inpt Only VTE Present on Admission: No VTE Mechan Device Prophylaxis: None VTE Pharm Prophylaxis ordered?: Yes - Physical Exam Vitals/I&O's: Vital Signs Temp Pulse Resp BP Pulse Ox 96.9 F L 86 16 133/72 H 96 08/24/19 13:14 08/24/19 17:33 08/24/19 17:33 08/24/19 17:33 08/24/19 17:33 Oxygen Delivery Method Room Air Weight: 169 lb 15.622 oz Body Mass Index (BMI) 27.4 Finger Stick Blood Glucose 86 General: Alert, Oriented x3, Cooperative HEENT: Atraumatic, PERRLA, EOMI, Normocephalic Oral: Dry Mucosa Neck: Supple, No JVD, Negative Carotid Bruits Lungs: Clear to auscultation, Normal air movement Cardiovascular: Regular rate, Regular Rhythm, Normal S1, Normal S2, No murmurs Abdomen: Bowel Sounds Present, Soft, Non Tender, Non-Distended Extremities: No edema, Capillary Refill Less than 3 Seconds Skin: No rashes, No breakdown Musculoskeletal: No Tenderness to Palpation of Joints or Extremities Neurological: Cranial nerves II-XII grossly intact, - - Right facial droop Psych/Mental Status: Normal Affect, Appropriate Laboratory Results 08/24/19 15:10: Sodium 136, Potassium 3.8, Chloride 105, Carbon Dioxide 24.0, Anion Gap 7, BUN 20 H, Creatinine 1.28 H, Estim Creat Clear Calc 41.02, Est GFR (MDRD) Af Amer 54 L, Est GFR (MDRD) Non-Af 45 L, BUN/Creatinine Ratio 15.6, Glucose 86, Calcium 8.9, Total Bilirubin 0.30, AST 50 H, ALT 69 H, Alkaline Phosphatase 167 H, Troponin I < 0.015, Total Protein 7.5, Albumin 3.0 L, Globulin 4.5 H, Albumin/Globulin Ratio 0.7 L 08/24/19 15:10: PT 14.3, INR 1.1 08/24/19 15:10: Ammonia Cancelled 08/24/19 15:10: Lactic Acid 1.1 08/24/19 15:30: WBC 11.1 H, RBC 2.94 L, Hgb 8.2 L, Hct 25.6 L, MCV 87.1, MCH 27.9, MCHC 32.0, RDW Std Deviation 49.1 H, RDW Coeff of [place] 15.4 H, Plt Count 333, MPV 9.5, Immature Gran % (Auto) 0.500, Neut % (Auto) 67.8, Lymph % (Auto) 18.6 L, [place] % (Auto) 10.7 H, Eos % (Auto) 2.2, Baso % (Auto) 0.2, Absolute Neuts (auto) 7.5, Absolute Lymphs (auto) 2.06, Nucleated RBC % 0 08/24/19 15:30: Ammonia < 10.0 L 08/24/19 16:02: Urine Color Yellow, Urine Clarity Sl. Cloudy, Urine pH 6.0, Ur Specific [place] 1.010, Urine Protein Negative, Urine Glucose (UA) Normal, Urine Ketones Negative, Urine Occult Blood Negative, Urine Nitrite Negative, Urine Bilirubin Negative, Urine Urobilinogen Normal, Ur Leukocyte Esterase Negative, Urine RBC 0 SEEN, Urine WBC 0 SEEN, Ur Squamous Epith Cells 0-5 SEEN, Urine Bacteria 0 SEEN, Urine Mucus 0 SEEN Current Medications Metronidazole (Flagyl) 500 mg in 100 mls @ 100 mls/hr IV X1 ONE Stop: 08/24/19 18:29 Ciprofloxacin (Cipro) 400 mg in 200 mls @ 200 mls/hr IV X1 ONE Stop: 08/24/19 18:29 Assessment/Plan All Active Problems Sigmoid diverticulitis (Acute) Failure of outpatient treatment (Acute) Altered mental status (Acute) Colitis (Acute) 1. Acute sigmoid colitis, failed outpatient treatment-CT of abdomen shows sigmoid: Colitis. No bowel obstruction. Constipation. IV Cipro and IV Flagyl. PRN antiemetics. PRN pain regimen. 2. Altered mental status-unclear etiology. Gait instability with falls and confusion at home. Worsened right facial droop. Patient will undergo stroke work-up with MRI of brain, MRA of head and neck. Echocardiogram. NIH. Aspirin, statin. 3. 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 No history of imaging. Work-up as noted above. 4. IBS with constipation-on Amitizia. Patient CT with constipation. Has not had bowel movement in several days. Lactulose ordered. 5. CAD with history of stent-continue Plavix, fenofibrate, metoprolol. 6. Hypertension-stable, continue lisinopril, metoprolol. 7. Hyperlipidemia-continue fenofibrate. 8. GERD-continue PPI. 9. Depression/anxiety-continue bupropion, doxepin, duloxetine. 10. Restless leg syndrome-continue Requip regimen. 11. Tobacco dependence-encourage cessation. 12. Chronic normocytic anemia-at baseline. DVT prophylaxis-Lovenox subcu This patient was seen by DARRON Hernandez under the supervision of Dr. Trevino. <Tiburcio Trevino F - Last Filed: 08/24/19 20:57> History of Present Illness The patient is a 64 year old F [] Past Medical History Allergies promethazine HCl [From Phenergan] Adverse Reaction (Verified 08/24/19 13:16) Vomiting BEE STING Allergy (Uncoded 08/24/19 13:16) Anaphylaxis - Physical Exam Vitals/I&O's: Vital Signs Temp Pulse Resp BP Pulse Ox 99.8 F H 99 18 114/85 H 93 08/24/19 19:57 08/24/19 19:57 08/24/19 19:57 08/24/19 19:57 08/24/19 19:57 Oxygen Delivery Method Room Air Weight: 169 lb 15.622 oz Body Mass Index (BMI) 27.4 Finger Stick Blood Glucose 86 Intake and Output for Last 24 Hours 08/22/19 08/23/19 08/24/19 23:59 23:59 23:59 Intake Total 1200 / 1200 Balance 1200 / 1200 Laboratory Results 08/24/19 15:10: Sodium 136, Potassium 3.8, Chloride 105, Carbon Dioxide 24.0, Anion Gap 7, BUN 20 H, Creatinine 1.28 H, Estim Creat Clear Calc 41.02, Est GFR (MDRD) Af Amer 54 L, Est GFR (MDRD) Non-Af 45 L, BUN/Creatinine Ratio 15.6, Glucose 86, Calcium 8.9, Total Bilirubin 0.30, AST 50 H, ALT 69 H, Alkaline Phosphatase 167 H, Troponin I < 0.015, Total Protein 7.5, Albumin 3.0 L, Globulin 4.5 H, Albumin/Globulin Ratio 0.7 L 08/24/19 15:10: PT 14.3, INR 1.1 08/24/19 15:10: Ammonia Cancelled 08/24/19 15:10: Lactic Acid 1.1 08/24/19 15:30: WBC 11.1 H, RBC 2.94 L, Hgb 8.2 L, Hct 25.6 L, MCV 87.1, MCH 27.9, MCHC 32.0, RDW Std Deviation 49.1 H, RDW Coeff of [place] 15.4 H, Plt Count 333, MPV 9.5, Immature Gran % (Auto) 0.500, Neut % (Auto) 67.8, Lymph % (Auto) 18.6 L, [place] % (Auto) 10.7 H, Eos % (Auto) 2.2, Baso % (Auto) 0.2, Absolute Neuts (auto) 7.5, Absolute Lymphs (auto) 2.06, Nucleated RBC % 0 08/24/19 15:30: Ammonia < 10.0 L 08/24/19 16:02: Urine Color Yellow, Urine Clarity Sl. Cloudy, Urine pH 6.0, Ur Specific Jewett 1.010, Urine Protein Negative, Urine Glucose (UA) Normal, Urine Ketones Negative, Urine Occult Blood Negative, Urine Nitrite Negative, Urine Bilirubin Negative, Urine Urobilinogen Normal, Ur Leukocyte Esterase Negative, Urine RBC 0 SEEN, Urine WBC 0 SEEN, Ur Squamous Epith Cells 0-5 SEEN, Urine Bacteria 0 SEEN, Urine Mucus 0 SEEN 08/24/19 16:02: Urine Opiates Screen Pending, Urine Methadone Screen Pending, Ur Barbiturates Screen Pending, Ur Phencyclidine Scrn Pending, Ur Amphetamines Screen Pending, U Methamphetamin-MDMA Pending, U Benzodiazepines Scrn Pending, Urine Cocaine Screen Pending, U Cannabinoids Screen Pending, Ur Drug Screen Comment Current Medications Aspirin (Aspirin, Baby) 81 mg PO DAILY@0800 [facility] Atorvastatin Calcium (Lipitor) 80 mg PO QHS [facility] Enoxaparin Sodium (Lovenox) 40 mg SC DAILY [facility] Sodium Chloride () 1,000 mls @ 100 mls/hr IV .Q10H [facility] Ciprofloxacin (Cipro) 400 mg in 200 mls @ 200 mls/hr IV Q12 [facility] Metronidazole (Flagyl) 500 mg in 100 mls @ 100 mls/hr IV Q8 [facility] Lactulose (Chronulac, Cephulac) 20 gm PO TID [facility] Melatonin (Melatonin) 3 mg PO QHS PRN PRN PRN Reason: INSOMNIA Ondansetron HCl (Zofran) 4 mg IV Q8H PRN PRN PRN Reason: NAUSEA/VOMITING Sodium Chloride () 10 - 40 ml IV UD PRN PRN Reason: SALINE FLUSH Code Visit Addendum: Dr. Trevino I personally examined the patient and reviewed the chart. I agree with the above. 64-year-old female has had a chronic history of constipation as well as a right facial droop presents with worsening left-sided abdominal pain. She was recently seen for diverticulitis and started on Augmentin however she states that her abdominal pain has been getting worse. She has not had a bowel movement in several days which is started on amities about a week ago. CT scan today demonstrates a significant fecal burden and therefore will start her on lactulose as well as an enema to try to get her to have a bowel movement as this is likely the main cause of worsening abdominal pain. In the meantime we will transition her to Cipro Flagyl and monitor her for any improvement in her white count. Also start her on some IV fluids and make her n.p.o. in order to assist in resolving her constipation. Of note she states that she has had some slurred speech today which says she says is getting little bit better however she is also had a chronic right facial droop she was told many years ago that she had Urias's palsy however for completeness will obtain an MRI to rule out stroke in the meantime placed on aspirin and Lipitor. OBSV E&M: [id number] Initial observation care L3
[2019-08-24] MEDS: Ciprofloxacin 400 MG/200 ML BAG 200 MG IV (17:42)
[2019-08-24] MEDS: metroNIDAZOLE 500 MG/100 ML BAG 100 MG IV (18:49)
--- NOTE | 2019-08-24 20:15 | ECHOD_ITS ---
Reason For Study: TIA/CVA Procedure This was a 2D Doppler, Color Flow transthoracic echocardiogram. Technically difficult- Pt in severe abdominal pain d/t bowel blockage/extention in supine position. Unable to finish exam - pt vomitting. The study was technically limited. The study was technically difficult. Exam performed portable in patient room. Left Ventricle Normal size and thickness. The estimated ejection fraction is 65 %. Stage 1 diastolic dysfunction. No regional wall motion abnormalities noted. Right Ventricle Normal size and thickness. Normal systolic function. Atria The left atrium is mildly enlarged. Normal right atrium. Normal atrial septum. Mitral Valve The mitral valve is structurally normal. No prolapse or stenosis seen. Tricuspid Valve Normal tricuspid valve. Mild (1+) tricuspid valve insufficiency. Right ventricular systolic pressure estimated to be 55 mmHg. Moderate pulmonary hypertension. Aortic Valve Trisinus/trileaflet aortic valve. Mild focal aortic valve thickening. There is no aortic stenosis. Pulmonic Valve Normal pulmonic valve. Great Vessels Normal aortic root. Normal arch. Normal inferior vena cava. Inferior vena cava collapse with sniff. Pericardium/Pleural No pericardial effusion. MMode/2D Measurements & Calculations LVIDd: 4.4 cm IVSd: 0.92 cm Ao root diam: 3.6 cm LVIDs: 3.2 cm LVPWd: 0.94 cm RVDd: 3.6 cm FS: 28.1 % LAV(MOD-sp4): 69.7 ml LA A4 area: 22.1 cm2 LA dimension(2D): 4.1 cm RA A4 area: 14.4 cm2 Time Measurements MV dec time: 0.39 sec Doppler Measurements & Calculations MV E max sam: 100.3 cm/sec TR max sam: 354.0 cm/sec MV A max sam: 150.4 cm/sec TR max P.2 mmHg MV E/A: 0.67 Interpretation Summary The estimated ejection fraction is 65 %. Stage 1 diastolic dysfunction. The left atrium is mildly enlarged. Mild (1+) tricuspid valve insufficiency. Right ventricular systolic pressure estimated to be 55 mmHg. Moderate pulmonary hypertension. There is no comparison study available. Ordering Physician: Pita Brandon Referring Physician: ARASELI AMADOR Performed By: Yecenia Delgado, MINGO, RVT
[2019-08-24] MEDS: Lactulose 20 GM/30 ML UDC PO (20:51)
[2019-08-24] MEDS: Atorvastatin Calcium 80 MG Tablet PO (20:51)
[2019-08-24] MEDS: 0.9% Normal Saline 1,000 ML 100 ML IV (20:51)
[2019-08-24 21:04] LABS: Amphetamine Urine VISTA NEGATIVE (<1000 ng/mL); Barbiturate Urine VISTA NEGATIVE (< 200 ng/mL); Benzodiazepine Urine VISTA NEGATIVE (< 200 ng/mL); Cocaine Urine VISTA NEGATIVE (< 300 ng/mL); Ecstacy Urine VISTA POSITIVE (< 500 ng/mL); Methadone Urine VISTA NEGATIVE (< 300 ng/mL); PCP Urine VISTA NEGATIVE (< 25 ng/mL); THC Urine VISTA NEGATIVE (< 50 ng/mL); Vista UDS pH Range 6
[2019-08-24] MEDS: 0.9% Saline Lock 10 ML Syringe IV (22:37)
[2019-08-25] VITALS (19 sets, daily range): BP systolic 91–153; BP diastolic 58–84; PULSE 75–126; RESP 14–31; TEMP 36.4–37.3; O2SAT 91–100; BMI 27.4
[2019-08-25] MEDS: metroNIDAZOLE 500 MG/100 ML BAG 100 MG IV ×2 (05:32→13:46)
[2019-08-25] MEDS: Morphine 2 MG/ML Syringe 1 MG IV ×2 (05:33→10:24)
[2019-08-25] MEDS: Lactulose 20 GM/30 ML UDC PO ×2 (05:34→13:46)
[2019-08-25 06:10] LABS: Absolute Lymphocyte Count 1.88 X10^3/uL (0.83-4.51); Basophil# 0.01 X10^3/uL; Basophil% 0.1 % (0-1); Eosinophils% 0.9 % (0-5); Hematocrit 23.9 % (37-47); Hemoglobin 7.6 g/dL (12.0-15.0); Lymphocyte # 1.88 X10^3/ul (4.0); Lymphocyte % 17.6 % (19-41); Mean Corp Hgb Conc 31.8 g/dL (32-36); Mean Corpuscular Hgb 27.5 pg (27.0-32.0); Mean Corpuscular Volume 86.6 fL (81-99); Mean Platelet Vol. 9.2 fl (6.2-12.0); Monocyte# 1.63 X10^3/uL; Monocyte% 15.3 % (0-10); NRBC Flagged by Analyzer 0 % (0-5); Neutrophil # 6.99 X10^3/uL (2.7-7.7); Neutrophil % 65.5 % (47-70); POSITIVE DIFFERENTIAL YES; Platelet Count 305 K/mm3 (150-450); RBC Distribution Width CV 15.3 % (11.6-14.6); RBC Distribution Width SD 48.9 fl (35.1-43.9); Red Blood Count 2.76 M/mm3 (4.2-5.4); White Blood Count 10.7 K/mm3 (4.4-11.0)
[2019-08-25 06:29] LABS: Differential Indicated SCAN CRITERIA MET
[2019-08-25 06:46] LABS: Anion Gap 8 (5-15); BUN 16 mg/dL (7-18); BUN/Creat Ratio 13.6 RATIO (10-20); Chloride 106 mmol/L (98-107); Cholesterol 115 mg/dL (200); Creatinine, Serum 1.18 mg/dL (0.55-1.02); EST Glomerular Filtration Rate 49 mL/min (>60); Est Glom Filt Rate - Afr Amer 59 mL/min (>60); Glucose 115 mg/dL (74-106); High Density Lipoprotein 62 mg/dL; Potassium 3.5 mmol/L (3.5-5.1); Sodium Level 135 mmol/L (136-145); Triglycerides 67 mg/dL; Very Low Density Lipoprotein 13 mg/dL (5-40)
[2019-08-25 06:48] LABS: Differential Comment SCANNED; Platelet Estimate ADEQUATE (ADEQ)
[2019-08-25] MEDS: Ondansetron 4 MG/2 ML Vial IV ×2 (07:23→15:48)
[2019-08-25] MEDS: 0.9% Normal Saline 1,000 ML 100 ML IV (07:25)
--- NOTE | 2019-08-25 09:00 | MRI_ITS ---
STUDY: MRA OF THE HEAD WITHOUT CONTRAST REASON FOR EXAM: Female, 64 years old. rt facial droop, falls, lt eye vision changes, hallucinations TECHNIQUE: 3-D [id number]-he-[id number] (TOF) imaging was performed with MIPs. The study was performed unenhanced. COMPARISON: None. FINDINGS: Normal bilateral petrous carotid arteries. Normal right cavernous carotid artery with a normal supraclinoid bifurcation. Normal left cavernous carotid artery with a normal supraclinoid bifurcation. Normal right A1 segments of the anterior cerebral artery. Normal left A1 segments of the anterior cerebral artery. Normal intact anterior communicating artery (ACOM). Normal bilateral A2 segments of the anterior cerebral arteries. Normal right M1 and M2 segments of the middle cerebral arteries, with a normal M1 bifurcation. Normal left M1 and M2 segments of the middle cerebral arteries, with a normal M1 bifurcation. Normal right posterior communicating artery (PCOM). Normal left posterior communicating artery (PCOM). Normal bilateral vertebral arteries. Normal basilar artery with a normal basilar bifurcation. The visualized bilateral superior cerebellar (SCA) arteries are normal. Normal bilateral P1, P2 and visualized P3 segments of the posterior cerebral arteries. There is no demonstrated aneurysm of the [place]. There is no major vessel occlusion or hemodynamically significant stenosis. There is no demonstrated abnormality of the visualized brain. MRI/MRA Head ONLY without Contrast IMPRESSION: Normal MRA of the head Electronically Signed: Carlitos Crooks, at 14:35 EST Tel , Service support ,
--- NOTE | 2019-08-25 09:00 | MRI_ITS ---
STUDY: MRA NECK WITHOUT CONTRAST REASON FOR EXAM: Female, 64 years old. rt facial droop, falls, lt eye vision changes, hallucinations TECHNIQUE: Source images were obtained, MIPs were performed. The study was performed unenhanced. COMPARISON: None. FINDINGS: RIGHT CAROTID ARTERIES: Normal right common carotid artery (CCA). Normal right common carotid bulb. Normal origin of the right internal carotid (ICA) artery without a hemodynamically significant stenosis. Normal visualized cervical portion of the right internal carotid artery. Normal origin of the right external carotid artery (ECA). LEFT CAROTID ARTERIES: Normal left common carotid artery (CCA). Normal left common carotid bulb. Normal origin of the left internal carotid (ICA) artery without a hemodynamically significant stenosis. Normal visualized cervical portion of the left internal carotid artery. Normal origin of the left external carotid artery (ECA). VERTEBRAL ARTERIES: Normal antegrade flow within the bilateral vertebral artery without a hemodynamically significant stenosis. MRI/MRA Neck without Contrast IMPRESSION: Normal bilateral cervical carotid and vertebral arteries. Electronically Signed: Carlitos Crooks, at 15:40 EST Tel , Service support ,
--- NOTE | 2019-08-25 09:00 | MRI_ITS ---
STUDY: MRI BRAIN WITHOUT CONTRAST REASON FOR EXAM: Female, 64 years old. rt facial droop, confusion,falls, lt eye vision changes TECHNIQUE: Standardized multiplanar fat and water weighted pulse sequences were obtained. COMPARISON: CT head 08/24/2019. FINDINGS: There is mild cerebral atrophy with widening of the extra-axial spaces and ventricular dilatation. There are multiple white matter hyperintensities, distributed throughout the deep white matter tracts of the cerebral hemispheres, consistent with moderate chronic white matter ischemic changes. There is no evidence for recent intracranial ischemia or other cause of cytotoxic edema on diffusion weighted imaging (DWI). Normal T2* images of the brain without demonstrated susceptibility artifact. There is no demonstrated hemosiderin stain. Normal bilateral basal ganglia. Normal thalami. There is no extra-axial fluid accumulation. Normal flow voids within the major intracranial circulation suggesting patency by spin echo criteria. Normal sella turcica, pituitary gland, infundibular stalk, optic chiasm and hypothalamus. Normal tectal plate and pineal gland. Normal midbrain, irma and medulla. Normal cerebellum. Normal basal cisterns. Normal bilateral temporal bones. Normal bilateral internal auditory canals. No demonstrated orbital abnormality, within the constraints of a routine brain study. Normal visualized paranasal sinuses. Normal calvarium and skull base. Normal visualized soft tissue structures. Normal visualized upper cervical spine. MRI/Brain without Contrast IMPRESSION: Involutional changes of the brain, as described above. Electronically Signed: Carlitos Valeriy, at 14:50 EST Tel , Service support ,
[2019-08-25] MEDS: 0.9% Saline Lock 10 ML Syringe IV ×3 (10:25→14:53)
[2019-08-25] MEDS: Aspirin 81 MG TAB.CHEW PO (10:26)
[2019-08-25] MEDS: Enoxaparin 40 MG/0.4 ML Syringe SC (10:26)
[2019-08-25] MEDS: Ciprofloxacin 400 MG/200 ML BAG 200 MG IV (10:26)
--- NOTE | 2019-08-25 12:14 | PN_ITS ---
<Pita Brandon - Last Filed: 08/25/19 12:56> Patient Problems: Active and Suspected Problems Altered mental status (Acute) Colitis (Acute) Subjective: Patient seen and examined. Complains of worsening abdominal pain and bloating. Has had multiple bowel movements since admission. Denies nausea, vomiting. - Physical Exam Vitals/I&O's: Vital Signs Temp Pulse Resp BP Pulse Ox 99.1 F 92 18 132/77 H 95 08/25/19 10:20 08/25/19 10:20 08/25/19 10:20 08/25/19 10:20 08/25/19 10:20 Oxygen Flow Rate (L/min) 2 Oxygen Delivery Method Room Air Weight: 169 lb 15.622 oz Body Mass Index (BMI) 27.4 Finger Stick Blood Glucose 86 Intake and Output for Last 24 Hours 08/23/19 08/24/19 08/25/19 23:59 23:59 23:59 Intake Total 1613.33 / 1613.33 1098.33 / 1098.33 Balance 1613.33 / 1613.33 1098.33 / 1098.33 General: Alert, Oriented x3, Cooperative HEENT: Atraumatic, PERRLA, EOMI, Normocephalic Oral: Dry Mucosa Neck: Supple, No JVD, Negative Carotid Bruits Lungs: Clear to auscultation, Diminished Cardiovascular: Regular rate, Regular Rhythm, Normal S1, Normal S2, No murmurs Abdomen: Hypoactive Bowel Sounds, Distended, Tender, - - Firm Extremities: No clubbing, No cyanosis, No edema, Capillary Refill Less than 3 Seconds Skin: No rashes, No breakdown Musculoskeletal: No Tenderness to Palpation of Joints or Extremities Neurological: Cranial nerves II-XII grossly intact, - - Right facial droop Psych/Mental Status: Normal Affect, Appropriate Laboratory Results 08/24/19 15:10: Sodium 136, Potassium 3.8, Chloride 105, Carbon Dioxide 24.0, Anion Gap 7, BUN 20 H, Creatinine 1.28 H, Estim Creat Clear Calc 41.02, Est GFR (MDRD) Af Amer 54 L, Est GFR (MDRD) Non-Af 45 L, BUN/Creatinine Ratio 15.6, Glucose 86, Calcium 8.9, Total Bilirubin 0.30, AST 50 H, ALT 69 H, Alkaline Phosphatase 167 H, Troponin I < 0.015, Total Protein 7.5, Albumin 3.0 L, Summer bulin 4.5 H, Albumin/Globulin Ratio 0.7 L 08/24/19 15:10: PT 14.3, INR 1.1 08/24/19 15:10: Ammonia Cancelled 08/24/19 15:10: Lactic Acid 1.1 08/24/19 15:30: WBC 11.1 H, RBC 2.94 L, Hgb 8.2 L, Hct 25.6 L, MCV 87.1, MCH 27.9, MCHC 32.0, RDW Std Deviation 49.1 H, RDW Coeff of Wilmar 15.4 H, Plt Count 333, MPV 9.5, Immature Gran % (Auto) 0.500, Neut % (Auto) 67.8, Lymph % (Auto) 18.6 L, Taliaferro % (Auto) 10.7 H, Eos % (Auto) 2.2, Baso % (Auto) 0.2, Absolute Neuts (auto) 7.5, Absolute Lymphs (auto) 2.06, Nucleated RBC % 0 08/24/19 15:30: Ammonia < 10.0 L 08/24/19 16:02: Urine Color Yellow, Urine Clarity Sl. Cloudy, Urine pH 6.0, Ur Specific [place] 1.010, Urine Protein Negative, Urine Glucose (UA) Normal, Urine Ketones Negative, Urine Occult Blood Negative, Urine Nitrite Negative, Urine Bilirubin Negative, Urine Urobilinogen Normal, Ur Leukocyte Esterase Negative, Urine RBC 0 SEEN, Urine WBC 0 SEEN, Ur Squamous Epith Cells 0-5 SEEN, Urine Bacteria 0 SEEN, Urine Mucus 0 SEEN 08/24/19 16:02: Urine Opiates Screen POSITIVE H, Urine Methadone Screen NEGATIVE, Ur Barbiturates Screen NEGATIVE, Ur Phencyclidine Scrn NEGATIVE, Ur Amphetamines Screen NEGATIVE, U Methamphetamin-MDMA POSITIVE H, U Benzodiazepines Scrn NEGATIVE, Urine Cocaine Screen NEGATIVE, U Cannabinoids Screen NEGATIVE, Ur Drug Screen Comment 08/25/19 05:45: WBC 10.7, RBC 2.76 L, Hgb 7.6 L, Hct 23.9 L, MCV 86.6, MCH 27.5, MCHC 31.8 L, RDW Std Deviation 48.9 H, RDW Coeff of Wilmar 15.3 H, Plt Count 305, MPV 9.2, Immature Gran % (Auto) 0.600, Neut % (Auto) 65.5, Lymph % (Auto) 17.6 L , Taliaferro % (Auto) 15.3 H, Eos % (Auto) 0.9, Baso % (Auto) 0.1, Absolute Neuts (auto) 7.0, Absolute Lymphs (auto) 1.88, Nucleated RBC % 0, Differential Comment SCANNED, Platelet Estimate ADEQUATE 08/25/19 05:45: Sodium 135 L, Potassium 3.5, Chloride 106, Carbon Dioxide 21.0, Anion Gap 8, BUN 16, Creatinine 1.18 H, Estim Creat Clear Calc 44.50, Est GFR (MDRD) Af Amer 59 L, Est GFR (MDRD) Non-Af 49 L, BUN/Creatinine Ratio 13.6, Glucose 115 H, Calcium 8.0 L, Triglycerides 67, Cholesterol 115, LDL Cholesterol 40, VLDL Cholesterol 13, HDL Cholesterol 62 Current Medications Aspirin (Aspirin, Baby) 81 mg PO DAILY@0800 [facility] Last Admin: 08/25/19 10:26 Dose: 81 mg Documented by: Atorvastatin Calcium (Lipitor) 80 mg PO QHS [facility] Last Admin: 08/24/19 20:51 Dose: 80 mg Documented by: Enoxaparin Sodium (Lovenox) 40 mg SC DAILY [facility] Last Admin: 08/25/19 10:26 Dose: 40 mg Documented by: Sodium Chloride () 1,000 mls @ 100 mls/hr IV .Q10H [facility] Last Infusion: 08/25/19 11:29 Dose: 100 mls/hr Documented by: Ciprofloxacin (Cipro) 400 mg in 200 mls @ 200 mls/hr IV Q12 [facility] Last Infusion: 08/25/19 11:29 Dose: Infused Documented by: Metronidazole (Flagyl) 500 mg in 100 mls @ 100 mls/hr IV Q8 [facility] Last Infusion: 08/25/19 06:32 Dose: Infused Documented by: Lactulose (Chronulac, Cephulac) 20 gm PO TID [facility] Last Admin: 08/25/19 05:34 Dose: 20 gm Documented by: Melatonin (Melatonin) 3 mg PO QHS PRN PRN PRN Reason: INSOMNIA Morphine Sulfate () 1 - 2 mg IV Q2H PRN PRN PRN Reason: Pain Score 6-10/10 Ondansetron HCl (Zofran) 4 mg IV Q8H PRN PRN PRN Reason: NAUSEA/VOMITING Last Admin: 08/25/19 07:23 Dose: 4 mg Documented by: Sodium Chloride () 10 - 40 ml IV UD PRN PRN Reason: SALINE FLUSH Last Admin: 08/25/19 10:25 Dose: 10 ml Documented by: Medical Necessity - Tobacco Use Smoking Status: Current every day smoker Tobacco Use: Cigarettes Assessment/Plan All Active Problems Sigmoid diverticulitis (Acute) Failure of outpatient treatment (Acute) Altered mental status (Acute) Colitis (Acute) 1. Acute sigmoid colitis, failed outpatient treatment-CT of abdomen shows sigmoid colitis. No bowel obstruction. Constipation. IV Cipro and IV Flagyl. PRN antiemetics. PRN pain regimen. Patient reports worsening abdominal pain and bloating. Abdomen distended, tender. Will consult general surgery for further input. 2. Rule out CVA-altered mental status with gait instability/falls and worsened chronic right facial droop. MRI of brain, MRA of head and neck pending. Echocardiogram pending. Continue aspirin, statin. If imaging is abnormal, plan for neurology consult. 3. 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 No history of imaging. Work-up as noted above. 4. IBS with constipation-on Amitizia. Patient CT with constipation. Multiple bowel movements following lactulose. 5. CAD with history of stent-continue Plavix, fenofibrate, metoprolol. 6. Hypertension-stable, continue lisinopril, metoprolol. 7. Hyperlipidemia-continue fenofibrate. 8. GERD-continue PPI. 9. Depression/anxiety-continue bupropion, doxepin, duloxetine. 10. Restless leg syndrome-continue Requip regimen. 11. Tobacco dependence-encourage cessation. 12. Acute on Chronic normocytic anemia-check stool for occult blood. Trend CBC. Check iron studies. DVT prophylaxis-Lovenox subcu This patient was seen by DARRON Hernandez under the supervision of Dr. Hartmann. <Gurinder Hartmann - Last Filed: 08/25/19 13:17> - Physical Exam Vitals/I&O's: Vital Signs Temp Pulse Resp BP Pulse Ox 37.3 C 92 18 132/77 H 95 08/25/19 10:20 08/25/19 10:20 08/25/19 10:20 08/25/19 10:20 08/25/19 10:20 Oxygen Flow Rate (L/min) 2 Oxygen Delivery Method Room Air Weight: 77.1 kg Body Mass Index (BMI) 27.4 Finger Stick Blood Glucose 86 Intake and Output for Last 24 Hours 08/23/19 08/24/19 08/25/19 23:59 23:59 23:59 Intake Total 1613.33 / 1613.33 1098.33 / 1098.33 Balance 1613.33 / 1613.33 1098.33 / 1098.33 General: Alert, Cooperative HEENT: Atraumatic, Normocephalic Lungs: Clear to auscultation, Normal air movement, No rhonchi, No wheeze, No rales Cardiovascular: Regular rate, Regular Rhythm, Normal S1, Normal S2, No murmurs Abdomen: Hypoactive Bowel Sounds, Tender, - - distended Extremities: No clubbing, No edema Neurological: - Psych/Mental Status: Normal Affect, Appropriate Laboratory Results 08/24/19 15:10: Sodium 136, Potassium 3.8, Chloride 105, Carbon Dioxide 24.0, Anion Gap 7, BUN 20 H, Creatinine 1.28 H, Estim Creat Clear Calc 41.02, Est GFR (MDRD) Af Amer 54 L, Est GFR (MDRD) Non-Af 45 L, BUN/Creatinine Ratio 15.6, Glucose 86, Calcium 8.9, Total Bilirubin 0.30, AST 50 H, ALT 69 H, Alkaline Phosphatase 167 H, Troponin I < 0.015, Total Protein 7.5, Albumin 3.0 L, Globulin 4.5 H, Albumin/Globulin Ratio 0.7 L 08/24/19 15:10: PT 14.3, INR 1.1 08/24/19 15:10: Ammonia Cancelled 08/24/19 15:10: Lactic Acid 1.1 08/24/19 15:30: WBC 11.1 H, RBC 2.94 L, Hgb 8.2 L, Hct 25.6 L, MCV 87.1, MCH 27.9, MCHC 32.0, RDW Std Deviation 49.1 H, RDW Coeff of Wilmar 15.4 H, Plt Count 333, MPV 9.5, Immature Gran % (Auto) 0.500, Neut % (Auto) 67.8, Lymph % (Auto) 18.6 L, Taliaferro % (Auto) 10.7 H, Eos % (Auto) 2.2, Baso % (Auto) 0.2, Absolute Neuts (auto) 7.5, Absolute Lymphs (auto) 2.06, Nucleated RBC % 0 08/24/19 15:30: Ammonia < 10.0 L 08/24/19 16:02: Urine Color Yellow, Urine Clarity Sl. Cloudy, Urine pH 6.0, Ur Specific [place] 1.010, Urine Protein Negative, Urine Glucose (UA) Normal, Urine Ketones Negative, Urine Occult Blood Negative, Urine Nitrite Negative, Urine Bilirubin Negative, Urine Urobilinogen Normal, Ur Leukocyte Esterase Negative, Urine RBC 0 SEEN, Urine WBC 0 SEEN, Ur Squamous Epith Cells 0-5 SEEN, Urine Bacteria 0 SEEN, Urine Mucus 0 SEEN 08/24/19 16:02: Urine Opiates Screen POSITIVE H, Urine Methadone Screen NEGATIVE, Ur Barbiturates Screen NEGATIVE, Ur Phencyclidine Scrn NEGATIVE, Ur Amphetamines Screen NEGATIVE, U Methamphetamin-MDMA POSITIVE H, U Benzodiazepines Scrn NEGATIVE, Urine Cocaine Screen NEGATIVE, U Cannabinoids Screen NEGATIVE, Ur Drug Screen Comment 08/25/19 05:45: WBC 10.7, RBC 2.76 L, Hgb 7.6 L, Hct 23.9 L, MCV 86.6, MCH 27.5, MCHC 31.8 L, RDW Std Deviation 48.9 H, RDW Coeff of Wilmar 15.3 H, Plt Count 305, MPV 9.2, Immature Gran % (Auto) 0.600, Neut % (Auto) 65.5, Lymph % (Auto) 17.6 L , Taliaferro % (Auto) 15.3 H, Eos % (Auto) 0.9, Baso % (Auto) 0.1, Absolute Neuts (auto) 7.0, Absolute Lymphs (auto) 1.88, Nucleated RBC % 0, Differential Comment SCANNED, Platelet Estimate ADEQUATE 08/25/19 05:45: Sodium 135 L, Potassium 3.5, Chloride 106, Carbon Dioxide 21.0, Anion Gap 8, BUN 16, Creatinine 1.18 H, Estim Creat Clear Calc 44.50, Est GFR (MDRD) Af Amer 59 L, Est GFR (MDRD) Non-Af 49 L, BUN/Creatinine Ratio 13.6, Glucose 115 H, Calcium 8.0 L, Triglycerides 67, Cholesterol 115, LDL Cholesterol 40, VLDL Cholesterol 13, HDL Cholesterol 62 08/25/19 05:45: Sodium Pending, Potassium Pending, Chloride Pending, Carbon Dioxide Pending, Anion Gap Pending, BUN Pending, Creatinine Pending, Est GFR (MDRD) Af Amer Pending, Est GFR (MDRD) Non-Af Pending, BUN/Creatinine Ratio Pending, Glucose Pending, Calcium Pending, Iron Pending, TIBC Pending, Iron Saturation Pending, Ferritin Pending, Total Bilirubin Pending, AST Pending, ALT Pending, Alkaline Phosphatase Pending, Total Protein Pending, Albumin Pending, Folate Pending 08/25/19 05:45: Vitamin B12 Pending Current Medications Aspirin (Aspirin, Baby) 81 mg PO DAILY@0800 [facility] Last Admin: 08/25/19 10:26 Dose: 81 mg Documented by: Atorvastatin Calcium (Lipitor) 80 mg PO QHS [facility] Last Admin: 08/24/19 20:51 Dose: 80 mg Documented by: Enoxaparin Sodium (Lovenox) 40 mg SC DAILY [facility] Last Admin: 08/25/19 10:26 Dose: 40 mg Documented by: Sodium Chloride () 1,000 mls @ 100 mls/hr IV .Q10H [facility] Last Infusion: 08/25/19 11:29 Dose: 100 mls/hr Documented by: Ciprofloxacin (Cipro) 400 mg in 200 mls @ 200 mls/hr IV Q12 [facility] Last Infusion: 08/25/19 11:29 Dose: Infused Documented by: Metronidazole (Flagyl) 500 mg in 100 mls @ 100 mls/hr IV Q8 [facility] Last Infusion: 08/25/19 06:32 Dose: Infused Documented by: Lactulose (Chronulac, Cephulac) 20 gm PO TID [facility] Last Admin: 08/25/19 05:34 Dose: 20 gm Documented by: Melatonin (Melatonin) 3 mg PO QHS PRN PRN PRN Reason: INSOMNIA Morphine Sulfate () 1 - 2 mg IV Q2H PRN PRN PRN Reason: Pain Score 6-10/10 Last Admin: 08/25/19 12:47 Dose: 2 mg Documented by: Ondansetron HCl (Zofran) 4 mg IV Q8H PRN PRN PRN Reason: NAUSEA/VOMITING Last Admin: 08/25/19 07:23 Dose: 4 mg Documented by: Sodium Chloride () 10 - 40 ml IV UD PRN PRN Reason: SALINE FLUSH Last Admin: 08/25/19 12:47 Dose: 10 ml Documented by: Assessment/Plan Patient seen and examined independently. Data reviewed. I agree with the above note by the nurse practitioner. 1. Acute sigmoid colitis.: Patient still with abdominal distention. Continue with IV ciprofloxacin and IV Flagyl. General surgery on consultation. Patient asking for more pain medication, I informed her that that we would need to rule out stroke before we can do so. 2. Confusion: Patient also had some worsening of her left facial droop. On exam currently, I do not appreciate any kind of facial droop. Patient states that she was told that she had Urias's palsy by it infrastructure consultant in the past. Awaiting on MRI reports. If those are negative for stroke then we can further modify her pain medication. Code Visit Inpatient E&M: 74913 Subs Hosp L2
[2019-08-25] MEDS: Morphine 2 MG/ML Syringe IV ×2 (12:47→14:53)
[2019-08-25 13:44] LABS: Vitamin B12 283 pg/mL (211-911)
[2019-08-25 13:46] LABS: Lactic Acid 0.7 mmol/L (0.4-1.9)
[2019-08-25 14:11] LABS: ALB/GLOB Ratio 0.6 RATIO (0.9-2.4); AST(SGOT) 70 U/L (15-37); Alanine Aminotransfer ALT/SGPT 75 U/L (13-56); Albumin, Serum 2.6 g/dL (3.2-5.0); Alkaline Phosphatase 187 U/L (45-117); Anion Gap 9 (5-15); BUN 16 mg/dL (7-18); BUN/Creat Ratio 13.6 RATIO (10-20); Chloride 107 mmol/L (98-107); Creatinine, Serum 1.18 mg/dL (0.55-1.02); EST Glomerular Filtration Rate 49 mL/min (>60); Est Glom Filt Rate - Afr Amer 59 mL/min (>60); Ferritin 56 ng/mL (8-252); Globulin 4.2 g/dL (2.2-4.2); Glucose 113 mg/dL (74-106); Iron 11 ug/dL (50-170); Iron Binding Capacity,Total 298 ug/dL (250-450); PERCENT IRON SATURATION 3.7 % (15.0-55.0); Potassium 3.5 mmol/L (3.5-5.1); Protein, Total 6.8 g/dL (6.4-8.2); Sodium Level 136 mmol/L (136-145)
--- NOTE | 2019-08-25 14:51 | CASEMGMT ---
RN CM Note: Intro role of CM to patient in room. Pt is painful, distressed. Requested assessment be postponed until tomorrow. RN CM complied. Wilner IRIZARRYN RN ACM
--- NOTE | 2019-08-25 15:29 | CON.PCM_ITS ---
Problem List (1) Constipation Status: Acute (2) Sigmoid diverticulitis Status: Acute Reason for Consult Date of Consultation: 08/25/19 Reason for Consultation: Abdominal pain. Sigmoid diverticulitis. History of Present Illness: The patient is a 64 year old F who presents to the ED with worsening abdominal pain. Patient was evaluated in the ED on Friday for abdominal pain. Patijose nt stated she had a CT scan of the abdomen/pelvis which demonstrated sigmoid diverticulitis. Patient was placed on Augmentin and discharged to home. Patient presented to the ED last night due to worsening abdominal pain. She notes a history of irritable bowel syndrome with constipation. She typically uses laxatives to assist with bowel movements. She does at times become impacted and will self disimpact, however she notes this is a very rare occasion. Patient notes she has had a lack of appetite. Some nausea. Denies vomiting. She is unsure the last time she has had a bowel movement. She notes she is not having flatus. She is unsure the last time she has passed flatus. She was also noted to have some confusion at home per patient's son. Patient has had previous colonoscopy and upper scope in August of 2018. This was a failed colonoscopy. Patient had a tortuous colon. Colonoscopy was performed up to sigmoid colon prior to aborting the procedure. Barium enema was completed which showed no masses or polyps. Upper scope was unremarkable. Pathology demonstrated no significant pathology. Patient stated she was being treated for her IBS with constipation from Dr. Peters. She was placed on a medication approximately 1 week ago. . She notes previous history of hysterectomy, gallbladder removal and appendectomy. She notes in April 2014 she had a stent placed. 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 She has not found a new go go dancer. She is on Plavix and aspirin. She is a 1/[address] scan of the ab/pel demonstrates: Colitis in the sigmoid colon. No bowel obstruction. Constipation. No free air, free fluid or fluid collection. Past Medical History Past Medical History (Chronic Problems): Chronic Problems Tobacco dependence syndrome (Chronic) History of Clostridium difficile infection (Chronic) Allergies promethazine HCl [From Phenergan] Adverse Reaction (Verified 08/24/19 13:16) Vomiting BEE STING Allergy (Uncoded 08/24/19 13:16) Anaphylaxis Home Medications: Ambulatory Orders Medication Instructions Recorded Pantoprazole Sodium [Protonix] 40 mg PO DAILY 03/21/17 L.acidoph,Paracasei, B.lactis 1 cap PO DAILY 12/30/17 [Probiotic] Lisinopril [Zestril] 10 mg PO DAILY 12/30/17 Metoprolol(XL)Succ [Toprol Xl 25 mg PO DAILY 12/30/17 (Beta Funmi)] Duloxetine Hcl [Cymbalta] 60 mg PO DAILY 01/25/19 Bupropion HCl [Bupropion HCl Sr] 150 mg PO BID 01/27/19 Clopidogrel Bisulfate [Clopidogrel] 75 mg PO DAILY 01/27/19 Ezetimibe 10 mg PO DAILY 01/27/19 Fenofibrate 54 mg PO DAILY 01/27/19 Amox/Clavulanate Tablet [Augmentin 875 mg PO Q12H #20 tab 08/21/19 Tablet] Ondansetron [Zofran Odt] 4 mg PO Q8H PRN PRN #10 tab 08/21/19 Doxepin HCl 100 mg PO QHS 08/24/19 Duloxetine HCl 30 mg PO DAILY 08/24/19 Lubiprostone [Amitiza] 24 mcg PO BID 08/24/19 Ropinirole HCl [Ropinirole ER] 4 mg PO QHS 08/24/19 Surgical History: appendectomy, cholecystectomy, hysterectomy 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 Review of Systems Constitutional: Reports: Anorexia, Weakness, Fatigue HEENT: Denies: Head Aches, Sinus Congestion, Sinus Drainage Cardiovascular: Denies: Chest Pain, Palpitations Respiratory: Denies: Cough, Shortness of breath at rest, Sputum production Gastrointestinal: Reports: Abdominal Pain, Constipation, Nausea. Denies: Vomiti ng Genitourinary: Denies: Dysuria Musculoskeletal: Denies: Joint Pain, Joint Tenderness Skin: Denies: Rash, Wounds Neurological: Denies: Numbness, Tingling, Focal weakness Psychiatric: Denies: Anxiety, Depression, Homicidal Ideations, Suicidal Ideations Hematologic/ Lymphatic: Reports: Anemia. Denies: Hx of blood clot Patient Problems: Active and Suspected Problems Altered mental status (Acute) Colitis (Acute) Constipation (Acute) - Physical Exam Vitals/I&O's: Vital Signs Temp Pulse Resp BP Pulse Ox 98.4 F 94 18 150/72 H 94 08/25/19 14:20 08/25/19 15:00 08/25/19 14:20 08/25/19 14:20 08/25/19 14:20 Oxygen Flow Rate (L/min) 2 Oxygen Delivery Method Room Air Weight: 169 lb 15.622 oz Body Mass Index (BMI) 27.4 Finger Stick Blood Glucose 86 Intake and Output for Last 24 Hours 08/23/19 08/24/19 08/25/19 23:59 23:59 23:59 Intake Total 1613.33 / 1613.33 1425.00 / 1425.00 Balance 1613.33 / 1613.33 1425.00 / 1425.00 General: Alert, Oriented x3, Cooperative HEENT: Atraumatic, PERRLA, EOMI, Normocephalic Neck: Supple, No JVD, Negative Carotid Bruits Lungs: Clear to auscultation, Normal air movement Cardiovascular: Regular rate, No murmurs Abdomen: Bowel Sounds Not Present, Distended - severely, Tender - 9 out of 10 pain worse on the right side Extremities: No edema, Capillary Refill Less than 3 Seconds Skin: No rashes, No breakdown Musculoskeletal: No Tenderness to Palpation of Joints or Extremities Neurological: Facial Droop - chronic. Has noted since Urias's palsy approximately 5 years ago Psych/Mental Status: Normal Affect, Appropriate Laboratory Results 08/24/19 15:10: Sodium 136, Potassium 3.8, Chloride 105, Carbon Dioxide 24.0, Anion Gap 7, BUN 20 H, Creatinine 1.28 H, Estim Creat Clear Calc 41.02, Est GFR (MDRD) Af Amer 54 L, Est GFR (MDRD) Non-Af 45 L, BUN/Creatinine Ratio 15.6, Glucose 86, Calcium 8.9, Total Bilirubin 0.30, AST 50 H, ALT 69 H, Alkaline Phosphatase 167 H, Troponin I < 0.015, Total Protein 7.5, Albumin 3.0 L, Globulin 4.5 H, Albumin/Globulin Ratio 0.7 L 08/24/19 15:10: PT 14.3, INR 1.1 08/24/19 15:10: Lactic Acid 1.1 08/24/19 15:30: WBC 11.1 H, RBC 2.94 L, Hgb 8.2 L, Hct 25.6 L, MCV 87.1, MCH 27.9, MCHC 32.0, RDW Std Deviation 49.1 H, RDW Coeff of [place] 15.4 H, Plt Count 333, MPV 9.5, Immature Gran % (Auto) 0.500, Neut % (Auto) 67.8, Lymph % (Auto) 18.6 L, [place] % (Auto) 10.7 H, Eos % (Auto) 2.2, Baso % (Auto) 0.2, Absolute Neuts (auto) 7.5, Absolute Lymphs (auto) 2.06, Nucleated RBC % 0 08/24/19 15:30: Ammonia < 10.0 L 08/24/19 16:02: Urine Color Yellow, Urine Clarity Sl. Cloudy, Urine pH 6.0, Ur Specific [place] 1.010, Urine Protein Negative, Urine Glucose (UA) Normal, Urine Ketones Negative, Urine Occult Blood Negative, Urine Nitrite Negative, Urine Bilirubin Negative, Urine Urobilinogen Normal, Ur Leukocyte Esterase Negative, Urine RBC 0 SEEN, Urine WBC 0 SEEN, Ur Squamous Epith Cells 0-5 SEEN, Urine Bacteria 0 SEEN, Urine Mucus 0 SEEN 08/24/19 16:02: Urine Opiates Screen POSITIVE H, Urine Methadone Screen NEGATIVE, Ur Barbiturates Screen NEGATIVE, Ur Phencyclidine Scrn NEGATIVE, Ur Amphetamines Screen NEGATIVE, U Methamphetamin-MDMA POSITIVE H, U Benzodiazepines Scrn NEGATIVE, Urine Cocaine Screen NEGATIVE, U Cannabinoids Screen NEGATIVE, Ur Drug Screen Comment 08/25/19 05:45: WBC 10.7, RBC 2.76 L, Hgb 7.6 L, Hct 23.9 L, MCV 86.6, MCH 27.5, MCHC 31.8 L, RDW Std Deviation 48.9 H, RDW Coeff of [place] 15.3 H, Plt Count 305, MPV 9.2, Immature Gran % (Auto) 0.600, Neut % (Auto) 65.5, Lymph % (Auto) 17.6 L , [place] % (Auto) 15.3 H, Eos % (Auto) 0.9, Baso % (Auto) 0.1, Absolute Neuts (auto) 7.0, Absolute Lymphs (auto) 1.88, Nucleated RBC % 0, Differential Comment SCANNED, Platelet Estimate ADEQUATE 08/25/19 05:45: Sodium 135 L, Potassium 3.5, Chloride 106, Carbon Dioxide 21.0, Anion Gap 8, BUN 16, Creatinine 1.18 H, Estim Creat Clear Calc 44.50, Est GFR (MDRD) Af Amer 59 L, Est GFR (MDRD) Non-Af 49 L, BUN/Creatinine Ratio 13.6, Glucose 115 H, Calcium 8.0 L, Triglycerides 67, Cholesterol 115, LDL Cholesterol 40, VLDL Cholesterol 13, HDL Cholesterol 62 08/25/19 05:45: Sodium 136, Potassium 3.5, Chloride 107, Carbon Dioxide 20.0 L, Anion Gap 9, BUN 16, Creatinine 1.18 H, Estim Creat Clear Calc 44.50, Est GFR (MDRD) Af Amer 59 L, Est GFR (MDRD) Non-Af 49 L, BUN/Creatinine Ratio 13.6, Glucose 113 H, Calcium 8.0 L, Iron 11 L, TIBC 298, Iron Saturation 3.7 L, Ferritin 56, Total Bilirubin 0.50, AST 70 H, ALT 75 H, Alkaline Phosphatase 187 H, Total Protein 6.8, Albumin 2.6 L, Globulin 4.2, Albumin/Globulin Ratio 0.6 L, Folate 59.30 H 08/25/19 05:45: Vitamin B12 283 08/25/19 13:15: Lactic Acid 0.7 Current Medications Aspirin (Aspirin, Baby) 81 mg PO DAILY@0800 [facility] Last Admin: 08/25/19 10:26 Dose: 81 mg Documented by: Atorvastatin Calcium (Lipitor) 80 mg PO QHS [facility] Last Admin: 08/24/19 20:51 Dose: 80 mg Documented by: Enoxaparin Sodium (Lovenox) 40 mg SC DAILY [facility] Last Admin: 08/25/19 10:26 Dose: 40 mg Documented by: Sodium Chloride () 1,000 mls @ 100 mls/hr IV .Q10H [facility] Last Infusion: 08/25/19 14:46 Dose: 100 mls/hr Documented by: Ciprofloxacin (Cipro) 400 mg in 200 mls @ 200 mls/hr IV Q12 [facility] Last Infusion: 08/25/19 11:29 Dose: Infused Documented by: Metronidazole (Flagyl) 500 mg in 100 mls @ 100 mls/hr IV Q8 [facility] Last Infusion: 08/25/19 14:46 Dose: Infused Documented by: Lactulose (Chronulac, Cephulac) 20 gm PO TID [facility] Last Admin: 08/25/19 13:46 Dose: 20 gm Documented by: Melatonin (Melatonin) 3 mg PO QHS PRN PRN PRN Reason: INSOMNIA Morphine Sulfate () 1 - 2 mg IV Q2H PRN PRN PRN Reason: Pain Score 6-10/10 Last Admin: 08/25/19 14:53 Dose: 2 mg Documented by: Ondansetron HCl (Zofran) 4 mg IV Q8H PRN PRN PRN Reason: NAUSEA/VOMITING Last Admin: 08/25/19 07:23 Dose: 4 mg Documented by: Sodium Chloride () 10 - 40 ml IV UD PRN PRN Reason: SALINE FLUSH Last Admin: 08/25/19 14:53 Dose: 10 ml Documented by: Assessment/Plan All Active Problems Sigmoid diverticulitis (Acute) Failure of outpatient treatment (Acute) Altered mental status (Acute) Colitis (Acute) Constipation (Acute) I have been consulted in conjunction with Dr. Hutchins Acute abdomen. Sigmoid diverticulitis Plan: Discussed patient with Dr. Hutchins. Dr. Hutchins will plan to perform an exploratory laparotomy with possible bowel resection possible lysis of adhesions possible loop colostomy creation. Will place NG tube. Procedure has been reviewed with the patient per Dr. Hutchins. Patient has had the opportunity to ask and have questions answered. Patient verbally understands and agrees with the plan. Thank you for allowing us to participate in this patient's care. Code Visit Office Visits / Consults: [id number] IP Consult L3
[2019-08-25] MEDS: Lidocaine 4% 5 ML Ampul 2 ML INHALATION (16:04)
[2019-08-25] MEDS: Lactated Ringers 1,000 ML 100 ML IV ×2 (17:23→21:05)
[2019-08-25 17:35] LABS: Bedside Glucose 114 mg/dL (70-110)
--- NOTE | 2019-08-25 19:08 | PCM.OPRPT ---
Problem List (1) Large bowel obstruction Status: Acute Report of Operation Date of Procedure: 08/25/19 Pre-Operative Diagnosis: Large bowel obstruction secondary to suspected sigmoid stricture possible diverticulitis in additional severe functional constipation Post-Operative Diagnosis: Same with extensive intra-abdominal adhesions Surgery/Procedure Performed:: Loop transverse colostomy Description of Surgical Findings:: Timeout and informed consent was obtained. 64-year-old female was taken the operating placed by the table underwent general endotracheal ablation and anesthesia. An NG tube had been previously placed. The patient was absolutely tightly tonically distended from her large bowel obstruction. She had been receiving oral laxatives worsening her condition. The abdomen sterilely prepped and draped. To the left and slightly superior to the umbilicus transverse incision was created electrocautery dissection performed the rectus fascia was transected rectus muscles were transected upon entering the abdomen unfortunately there were dense adhesions gross distention. I was able to identify the transverse colon but for some reason it was not mobile and it was adherent at all positions. I was able to bluntly dissect things free. I hesitated significantly in opening her as I felt due to the gross distention that I would not be able to achieve closure. Tedious and carefully I was able to get a chest tube tubing around the transverse colon secured that the skin with Ethibond. The colon did not want to easily come to the surface. I had it about flush level. Because of the tight distention that persisted I felt the patient was at significant risk for rupturing her colon overnight I felt I had no choice other than to open the stoma. We open the stoma there was stool that immediately expressed we try to control it we partially matured the stoma with 4-0 Vicryl there was some spillage around the colon which was contained to the best of our ability. Stomal appliance was applied. She was taken to the recovery area in satisfactory condition. I am hopeful that due to the gross distention of the colon that it will seal to the anterior abdominal wall preventing grossly intraperitoneal spillage. There was no other option that I saw available at this setting other potentially converting to a near total colectomy. She was taken to recovery room in satisfactory edition Specimens none drains none blood loss minimal Jerrell Hutchins M.D., F.A.C.S. Type of Anesthesia:: General Anesthesiologist: Gordy Guerrero
--- NOTE | 2019-08-25 20:49 | PCM.PN.BLA ---
Progress Note Patient had Surgery for Large bowel obstruction secondary to suspected sigmoid stricture possible diverticulitis in addition to severe functional constipation. Patient had extensive intra-abdominal adhesions and loop transverse colostomy was done. After surgery patient had poor ventilation and it was difficult to extubate patient. Anesthesiologist reported the patient had high CO2. Was given Narcan postoperatively Patient was transferred to intensive care unit. On examination patient while off sedation was drowsy and intubated. Open her eyes to voice. Heart sounds hyperdynamic with tachycardia S1-S2 present. Lungs was clear to auscultate. Abdomen with distention bowel sounds hypoactive. Extremities with edema. Noted ecchymosis on back and left thigh. Acute respiratory failure post surgery with general anesthesia. Transferred to the ICU. Discussed the case with motion study engineer. Because patient is agitated and trying to reach ET tube and OG tube will start the patient on propofol and fentanyl drip. Large bowel obstruction secondary to suspected sigmoid stricture possible diverticulitis; functional severe constipation status post loop transverse colostomy. Zosyn continued. G-tube low wall suction GI Prophylaxis Protonix IV DVT prophylaxis Lovenox.
[2019-08-25] MEDS: Propofol 10MG/Ml 1,000 MG/100 ML Bottle 4.6 MG CONT INF (21:00)
[2019-08-25] MEDS: fentaNYL drip 100 ML 2.5 MCG IV (21:00)
--- NOTE | 2019-08-25 21:28 | RAD_ITS ---
STUDY: X-RAY CHEST REASON FOR EXAM: Female, 64 years old. Tube placement TECHNIQUE: Frontal view of the chest COMPARISON: 07/13/2016 FINDINGS: There is an endotracheal tube noted with its tip approximately 4 cm above the len. There is an enteric tube noted with its tip in the stomach. There is patchy airspace opacity medially in the right lung base. The lungs are otherwise clear. There are no pleural effusions. There is no pneumothorax. The heart is normal in size. The visualized osseous structures are within normal limits. RAD/Chest 1 View (Portable) IMPRESSION: Satisfactory position of the support lines and tubes. Patchy opacity at the right lung base which is likely infectious in etiology. No acute thoracic pathology. Electronically Signed: Theo James, at 22:39 EST Tel , Service support ,
[2019-08-25 21:30] LABS: Allen Test POS; Base Excess -6 mmol/L (-2 to +2); Bicarbonate 19.7 mmol/L (22-26); Blood Gas Specimen Type ART; FI02 60; Mode A-C; O2 Delivery Device Vent; PEEP 8; PO2 86 mmHG (75-100); RR 14; SITE L Radial; SO2 96 % (95-99); Time Given 2115; Total Carbon Dioxide 21 mmol/L; Vt 500; pCO2 38.4 mmHg (35-45); pH 7.32 (7.35-7.45)
[2019-08-26] VITALS (43 sets, daily range): BP systolic 87–134; BP diastolic 48–90; PULSE 75–112; RESP 10–26; TEMP 35.8–37.4; O2SAT 95–100; BMI 27.8
--- NOTE | 2019-08-26 | COL_PTH ---
PATIENT: TY HOFF LOC: [facility] U#:[id number] AGE/SX: 64/F ROOM: [facility] RE08/25/[address]: Dr. Kari Poe MD : [id number] BED: 1 DIS: 09/07/2019 SPEC #: [id number] RECD: 08/26/19 16:39 STATUS: MARIANA RERamon #: [id number] JOS: 08/26/19 00:[address]: Jerrell Hutchins DEPT: SURGICAL PATHOLOGY RECD BY: Cisco Majano ENTERED: 08/27/19 10:02 SP TYPE: COLON OTHR DR: MD Dr. Gurinder Rivas DO Dr. Jeffrey Burkey, MD Dr. Nicholas F Kotsonis, MD Dr. Robert D Cebul, MD Tissues: Colon, NOS Procedures: Surgery Specimen Level V Comments: @ Ordering doctor for SUV edited from to @ anjum STONER at 08/27/19 1326 @ Submitting doctor edited from to @ by GEORGIANA at 08/27/19 1326 HEADER OPERATION: Exploratory laparotomy, takedown colostomy, extended left colectomy PRE-OP DIAGNOSIS: Diverticulitis, abdominal pain, large bowel obstruction, necrotic stoma TISSUE SUBMITTED: Left colon/redo portion of rectosigmoid/stoma MICROSCOPIC DIAGNOSIS Left colon, segmental colectomy: Ulceration with acute colitis and focal hemorrhagic infarct. Acute serositis. AM:jessy 08/30/19 MICROSCOPIC DESCRIPTION Slides are reviewed. GROSS DESCRIPTION Received fresh is one container labeled with the patient's name and designated left colon. The specimen consists of a portion of rectosigmoid/stoma. The specimen consists of a segment of colon. One resection margin is stapled and other resection margin is opened. There is attached pericolonic adipose tissue measuring 58 cm in length. The lumen is filled with solid fecal material throughout its length. Also present in the container is a second segment of colonic tissue measuring 4 cm in length. Both resection margins are stapled. It is filled with fecal material. No mucosal lesion is identified. Also present in the container is a piece of adipose tissue measuring 6 x 5 x 2 cm. More dictation will follow after overnight fixation. / SJ:jessy 08/26/19 Sections of the detached piece of colon do not reveal any lesion. Sections of detached piece of pericolonic adipose tissue also do not reveal any mass lesion. The lumen shows flattened mucosal fold. The largest segment of colon reveals flattened mucosal fold. 1 cm away from the open resection margin there are multiple sutures and area of possible anastomosis. Sections of pericolonic adipose tissue reveal a focal area of hemorrhage. No obviously enlarged lymph nodes are identified. Cigar Machine Feeder sections are submitted in six cassettes as follows: 1 - detached smaller segment of colon, 2 - detached pieces of adipose tissue, 3-6 - largest segment of colon (3 - stapled and unstapled resection margin, stapled margin inked black, 4 - possible anastomosis area at the site of suture, 5 - inventory representative section from other area, 6 - bowel and pericolonic adiposes tissue). / ALENA:jessy 08/27/19 TC:2 CPT: 69072
--- NOTE | 2019-08-26 00:57 | PCM.PN.BLA ---
Progress Note Chest x-ray shows right patchy infiltrates. Will give patient vancomycin x1 dose and will get MRSA nasal screen. Continue Zosyn. STROKE Vital Signs/Narrative: Vital Signs Temp Pulse Resp BP BP Pulse Ox 08/26/19 00:00 97.4 F L 80 14 94/58 L 95 08/25/19 23:15 93 08/25/19 23:00 97.5 F L 87 14 91/58 L 100 08/25/19 22:00 99 14 91/60 99 08/25/19 21:30 97.8 F 107 H 14 91/60 99 08/25/19 21:15 97.8 F 106 H 14 97/67 98 08/25/19 21:00 97.9 F 115 H 20 H 153/84 H 95
[2019-08-26 04:15] LABS: Anion Gap 8 (5-15); BUN 16 mg/dL (7-18); Calcium,Total 7.7 mg/dL (8.5-10.1); Chloride 109 mmol/L (98-107); Creatinine, Serum 0.94 mg/dL (0.55-1.02); EST Glomerular Filtration Rate 64 mL/min (>60); Est Glom Filt Rate - Afr Amer 77 mL/min (>60); Estimated Creatinine Clearance 55.86 ml/min; Glucose 139 mg/dL (74-106); Hematocrit 19.6 % (37-47); Hemoglobin 6.3 g/dL (12.0-15.0); Mean Corp Hgb Conc 32.1 g/dL (32-36); Mean Corpuscular Hgb 27.4 pg (27.0-32.0); Mean Corpuscular Volume 85.2 fL (81-99); Mean Platelet Vol. 9.3 fl (6.2-12.0); Platelet Count 295 K/mm3 (150-450); Potassium 3.7 mmol/L (3.5-5.1); RBC Distribution Width CV 15.2 % (11.6-14.6); Sodium Level 139 mmol/L (136-145); White Blood Count 7.3 K/mm3 (4.4-11.0)
[2019-08-26 04:16] LABS: M R Staph aureus DNA By PCR Negative (Negative); Probe Check PASS; Specimen Processing Control PASS
[2019-08-26 04:32] LABS: CPK Total, Creatine Kinase 159 U/L (26-192); Triglycerides 76 mg/dL
--- NOTE | 2019-08-26 05:24 | PN.SURG_ITS ---
Patient Problems: Active and Suspected Problems Altered mental status (Acute) Colitis (Acute) Constipation (Acute) Large bowel obstruction (Acute) Subjective: Patient very agitated very painful. Mild drop in hemoglobin - Physical Exam Vitals/I&O's: Vital Signs Temp Pulse Resp BP Pulse Ox 97.2 F L 84 14 95/62 100 08/26/19 04:00 08/26/19 04:00 08/26/19 04:00 08/26/19 04:00 08/26/19 04:00 Oxygen Flow Rate (L/min) 2 Oxygen Delivery Method Mechanical Ventilator Weight: 169 lb 15.622 oz Body Mass Index (BMI) 27.4 Finger Stick Blood Glucose 86 Intake and Output for Last 24 Hours 08/24/19 08/25/19 08/26/19 23:59 23:59 23:59 Intake Total 1613.33 / 1613.33 2518.67 / 2560.57 460.51 / 460.51 Output Total 1625 / 1625 Balance 1613.33 / 1613.33 2518.67 / 1110.57 -1164.49 / -1164.49 Abdomen: Distended, Tender Laboratory Results 08/25/19 05:45: WBC 10.7, RBC 2.76 L, Hgb 7.6 L, Hct 23.9 L, MCV 86.6, MCH 27.5, MCHC 31.8 L, RDW Std Deviation 48.9 H, RDW Coeff of Wilmar 15.3 H, Plt Count 305, MPV 9.2, Immature Gran % (Auto) 0.600, Neut % (Auto) 65.5, Lymph % (Auto) 17.6 L , Mobile % (Auto) 15.3 H, Eos % (Auto) 0.9, Baso % (Auto) 0.1, Absolute Neuts ( auto) 7.0, Absolute Lymphs (auto) 1.88, Nucleated RBC % 0, Differential Comment SCANNED, Platelet Estimate ADEQUATE 08/25/19 05:45: Sodium 135 L, Potassium 3.5, Chloride 106, Carbon Dioxide 21.0, Anion Gap 8, BUN 16, Creatinine 1.18 H, Estim Creat Clear Calc 44.50, Est GFR (MDRD) Af Amer 59 L, Est GFR (MDRD) Non-Af 49 L, BUN/Creatinine Ratio 13.6, Glucose 115 H, Calcium 8.0 L, Triglycerides 67, Cholesterol 115, LDL Cholesterol 40, VLDL Cholesterol 13, HDL Cholesterol 62 08/25/19 05:45: Sodium 136, Potassium 3.5, Chloride 107, Carbon Dioxide 20.0 L, Anion Gap 9, BUN 16, Creatinine 1.18 H, Estim Creat Clear Calc 44.50, Est GFR (MDRD) Af Amer 59 L, Est GFR (MDRD) Non-Af 49 L, BUN/Creatinine Ratio 13.6, Glu cose 113 H, Calcium 8.0 L, Iron 11 L, TIBC 298, Iron Saturation 3.7 L, Ferritin 56, Total Bilirubin 0.50, AST 70 H, ALT 75 H, Alkaline Phosphatase 187 H, Total Protein 6.8, Albumin 2.6 L, Globulin 4.2, Albumin/Globulin Ratio 0.6 L, Folate 59.30 H 08/25/19 05:45: Vitamin B12 283 08/25/19 13:15: Lactic Acid 0.7 08/25/19 17:32: POC Glucose 114 H 08/25/19 21:23: Specimen Type ART, Sample Site L Radial, pH 7.32 L, Bicarbonate Actual 19.7 L, POC Total CO2 21, Base Excess -6 L, O2 Saturation 96, O2 % 60, ABG pCO2 38.4, ABG pO2 86, Ty Test POS, Respiration Rate 14, O2 Delivery Device Vent, Minute Volume 7.00, Vent Mode A-C, Tidal Volume 500, POC PEEP 8, Blood Gas Notified Whom [facility] , Blood Gas Notified Time 211408/26/19 01:30: MRSA (PCR) Negative 08/26/19 03:50: WBC 7.3, RBC 2.30 L, Hgb 6.3 L, Hct 19.6 L, MCV 85.2, MCH 27.4, MCHC 32.1, RDW Std Deviation 47.0 H, RDW Coeff of Wilmar 15.2 H, Plt Count 295, MPV 9.3 08/26/19 03:50: Sodium 139, Potassium 3.7, Chloride 109 H, Carbon Dioxide 22.0, Anion Gap 8, BUN 16, Creatinine 0.94, Estim Creat Clear Calc 55.86, Est GFR (MDRD) Af Amer 77, Est GFR (MDRD) Non-Af 64, BUN/Creatinine Ratio 17.0, Glucose 139 H, Calcium 7.7 L 08/26/19 03:50: Total Creatine Kinase 159, Triglycerides 76 08/26/19 04:20: Blood Type Pending, Antibody Screen Pending, Crossmatch See Detail Current Medications Atorvastatin Calcium (Lipitor) 80 mg PO QHS [facility] Last Admin: 08/25/19 21:55 Dose: Not Given Documented by: Enoxaparin Sodium (Lovenox) 40 mg SC DAILY [facility] Last Admin: 08/25/19 10:26 Dose: 40 mg Documented by: Hydromorphone HCl (Dilaudid Inj) 0.5 mg IV Q2H PRN PRN PRN Reason: pain 6-04/01 Piperacillin Sod/Tazobactam (Sod 3.375 gm/ Sodium Chloride) 50 mls @ 12.5 mls/hr IV Q8 [facility] Last Infusion: 08/26/19 02:23 Dose: Infused Documented by: Propofol (Diprivan) 1,000 mg in 100 mls @ 4.626 mls/hr CONT INF .Q12H [facility]; Protocol Last Titration: 08/26/19 03:59 Dose: 20 mcg/kg/min, 9.3 mls/hr Documented by: Fentanyl () 100 mls @ 2.5 mls/hr IV UD [facility]; Protocol Last Admin: 08/25/19 21:33 Dose: Not Given Documented by: Sodium Chloride () 250 mls @ 15 mls/hr IV .[id number] PRN PRN Reason: Saline Flush Sodium Chloride () 250 mls @ 15 mls/hr IV .[id number] PRN PRN Reason: Additional IVPB Infusion Pantoprazole Sodium 40 mg/ (Sodium Chloride) 110 mls @ 330 mls/hr IV Q12 [facility] Last Admin: 08/26/19 05:14 Dose: 330 mls/hr Documented by: Sodium Chloride () 500 mls @ 15 mls/hr IV PRN PRN PRN Reason: Blood Transfusion Melatonin (Melatonin) 3 mg PO QHS PRN PRN PRN Reason: INSOMNIA Ondansetron HCl (Zofran) 4 mg IV Q8H PRN PRN PRN Reason: NAUSEA/VOMITING Last Admin: 08/25/19 15:48 Dose: 4 mg Documented by: Sodium Chloride () 10 - 40 ml IV UD PRN PRN Reason: SALINE FLUSH Last Admin: 08/25/19 14:53 Dose: 10 ml Documented by: Medical Necessity - Tobacco Use Smoking Status: Current every day smoker Tobacco Use: Cigarettes Assessment/Plan All Active Problems Sigmoid diverticulitis (Acute) Failure of outpatient treatment (Acute) Altered mental status (Acute) Colitis (Acute) Constipation (Acute) Large bowel obstruction (Acute) Abnl CXR noted This is a very difficult situation. The bowel had no mobility with extensive intraabdominal adhesions. I do have concerns whether the stoma could be allowing intraabdominal leakage of stool. Because of the advanced pre operative degree of her illness, the only other possible solution would be a near total colectomy but this might mean having to leave the abdomen open and not be able to close. At this moment I plan review of the stoma with enterostomal therapy. Will need close followup. All of the stool distal to the stoma also not being evacuated by this procedure.
[2019-08-26] MEDS: 0.9% Saline Lock 10 ML Syringe IV (05:37)
[2019-08-26] MEDS: TITRATION PARAMETER CHANGE 1 EACH IV (05:56)
[2019-08-26] MEDS: fentaNYL drip 100 ML 15 MCG IV ×2 (07:45→20:22)
--- NOTE | 2019-08-26 07:47 | NURSING ---
In to see patient with Dr Hutchins to assess stoma. removed ostomy appliance. there was a moderate amount of thick brown stool noted. the stoma is quite dusky in color and retracted. there is a piece of a chest tube that had been placed under the bowel. peristomal skin is intact. It is difficult to get a great view of the stoma d/t the retraction. patient is quite painful to the LLQ. there is concern for intraperitoneal leakage. WBC normal at this time, but surgery was just last evening. Hgb 6.3 and patient is currently getting PRBC's. Dr Hutchins to decide whether patient will return to the OR today. May not be able to completely close the abdomen d/t distention. will continue to assist with care as needed. New ostomy appliance placed at this time. pt tolerated well. remains intubated, but alert.
--- NOTE | 2019-08-26 08:31 | NURSING ---
The RLQ marked for ileostomy site if needed per Dr Hutchins's request. pt able to show this nurse where she typically wears her pants. stoma placed just below that area. Could not aishwarya the LLQ d/t the ostomy appliance covering the site. did place an X on the ostomy site to show where the stoma marking would be. Pt able to communicate on writing board. Dr Hartmann in to see patient as well.
--- NOTE | 2019-08-26 09:37 | PCM.PN.HOSP ---
Patient Problems: Active and Suspected Problems Altered mental status (Acute) Colitis (Acute) Constipation (Acute) Large bowel obstruction (Acute) Reason for Visit: colitis Subjective: Events reviewed. Underwent colostomy yesterday, stoma placed. Remained intubated afterwards. Plan is to return to the OR for possible colectomy. Vitals/I&O's: Vital Signs Temp Pulse Resp BP Pulse Ox 37.2 C 99 15 112/53 L 100 08/26/19 06:32 08/26/19 08:00 08/26/19 07:35 08/26/19 07:00 08/26/19 07:35 Oxygen Flow Rate (L/min) 2 Oxygen Delivery Method Mechanical Ventilator Weight: 78.4 kg Body Mass Index (BMI) 27.4 Finger Stick Blood Glucose 86 Intake and Output for Last 24 Hours 08/24/19 08/25/19 08/26/19 23:59 23:59 23:59 Intake Total 1613.33 / 1613.33 2518.67 / 2560.57 / Output Total 2024 Balance 1613.33 / 1613.33 2518.67 / 1110.57 -10.86 / -10.86 General: Alert, - - intubated. HEENT: Atraumatic, Normocephalic Oral: Moist Mucosa, No Gingival or Mucosal Lesions/ Ulcerations Neck: No Nodes, Trachea Midline Lungs: Clear to auscultation, Normal air movement, No rhonchi, No wheeze Cardiovascular: Regular rate, Regular Rhythm, Normal S1, Normal S2 - dis Abdomen: - - distended, but softer. Stoma LLQ with part of chest tube present. Extremities: No edema, No Calf Tenderness Skin: No rashes, No breakdown Musculoskeletal: No Tenderness to Palpation of Joints or Extremities, No Muscle Wasting Neurological: Sensory exam intact to light touch and pain, Coordination normal - was able to clearly write a note for wound nurse and I. Psych/Mental Status: Normal Affect, Appropriate Laboratory Results 08/25/19 05:45: Sodium 136, Potassium 3.5, Chloride 107, Carbon Dioxide 20.0 L, Anion Gap 9, BUN 16, Creatinine 1.18 H, Estim Creat Clear Calc 44.50, Est GFR (MDRD) Af Amer 59 L, Est GFR (MDRD) Non-Af 49 L, BUN/Creatinine Ratio 13.6, Glucose 113 H, Calcium 8.0 L, Iron 11 L, TIBC 298, Iron Saturation 3.7 L, Ferritin 56, Total Bilirubin 0.50, AST 70 H, ALT 75 H, Alkaline Phosphatase 187 H, Total Protein 6.8, Albumin 2.6 L, Globulin 4.2, Albumin/Globulin Ratio 0.6 L, Folate 59.30 H 08/25/19 05:45: Vitamin B12 283 08/25/19 13:15: Lactic Acid 0.7 08/25/19 17:32: POC Glucose 114 H 08/25/19 21:23: Specimen Type ART, Sample Site L Radial, pH 7.32 L, Bicarbonate Actual 19.7 L, POC Total CO2 21, Base Excess -6 L, O2 Saturation 96, O2 % 60, ABG pCO2 38.4, ABG pO2 86, Ty Test POS, Respiration Rate 14, O2 Delivery Device Vent, Minute Volume 7.00, Vent Mode A-C, Tidal Volume 500, POC PEEP 8, Blood Gas Notified Whom [facility] , Blood Gas Notified Time 211408/26/19 01:30: MRSA (PCR) Negative 08/26/19 03:50: WBC 7.3, RBC 2.30 L, Hgb 6.3 L, Hct 19.6 L, MCV 85.2, MCH 27.4, MCHC 32.1, RDW Std Deviation 47.0 H, RDW Coeff of Wilmar 15.2 H, Plt Count 295, MPV 9.3 08/26/19 03:50: Sodium 139, Potassium 3.7, Chloride 109 H, Carbon Dioxide 22.0, Anion Gap 8, BUN 16, Creatinine 0.94, Estim Creat Clear Calc 55.86, Est GFR (MDRD) Af Amer 77, Est GFR (MDRD) Non-Af 64, BUN/Creatinine Ratio 17.0, Glucose 139 H, Calcium 7.7 L 08/26/19 03:50: Total Creatine Kinase 159, Triglycerides 76 08/26/19 04:20: Blood Type A POSITIVE, Antibody Screen NEGATIVE, Crossmatch See Detail Current Medications Atorvastatin Calcium (Lipitor) 80 mg PO QHS [facility] Last Admin: 08/25/19 21:55 Dose: Not Given Documented by: Chlorhexidine Gluconate () 15 ml PO BID [facility] Chlorhexidine Gluconate () 1 each TOPICAL DAILY [facility] Enoxaparin Sodium (Lovenox) 40 mg SC DAILY [facility] Last Admin: 08/25/19 10:26 Dose: 40 mg Documented by: Hydromorphone HCl (Dilaudid Inj) 0.5 mg IV Q2H PRN PRN PRN Reason: pain 6-10/10 Piperacillin Sod/Tazobactam (Sod 3.375 gm/ Sodium Chloride) 50 mls @ 12.5 mls/hr IV Q8 [facility] Last Admin: 08/26/19 05:33 Dose: 12.5 mls/hr Documented by: Propofol (Diprivan) 1,000 mg in 100 mls @ 4.704 mls/hr CONT INF .Q12H [facility]; Protocol Last Titration: 08/26/19 06:57 Dose: 0 mcg/kg/min, 0 mls/hr Documented by: Fentanyl () 100 mls @ 2.5 mls/hr IV UD [facility]; Protocol Last Admin: 08/26/19 07:45 Dose: 150 mcg/hr, 15 mls/hr Documented by: Sodium Chloride () 250 mls @ 15 mls/hr IV .[id number] PRN PRN Reason: Saline Flush Sodium Chloride () 250 mls @ 15 mls/hr IV .[id number] PRN PRN Reason: Additional IVPB Infusion Pantoprazole Sodium 40 mg/ (Sodium Chloride) 110 mls @ 330 mls/hr IV Q12 [facility] Last Infusion: 08/26/19 05:37 Dose: Infused Documented by: Sodium Chloride () 500 mls @ 15 mls/hr IV PRN PRN PRN Reason: Blood Transfusion Melatonin (Melatonin) 3 mg PO QHS PRN PRN PRN Reason: INSOMNIA Ondansetron HCl (Zofran) 4 mg IV Q8H PRN PRN PRN Reason: NAUSEA/VOMITING Last Admin: 08/25/19 15:48 Dose: 4 mg Documented by: Sodium Chloride () 10 - 40 ml IV UD PRN PRN Reason: SALINE FLUSH Last Admin: 08/26/19 05:37 Dose: 40 ml Documented by: STROKE Vital Signs/Narrative: Vital Signs Temp Pulse Resp BP BP Pulse Ox 08/26/19 08:00 99 08/26/19 07:35 96 15 100 08/26/19 07:00 97 16 112/53 L 100 08/26/19 06:32 37.2 C 101 H 15 108/57 L 100 08/26/19 06:17 37.3 C H 105 H 17 113/65 100 08/26/19 06:00 37.4 C H 101 H 22 H 87/72 L 100 08/26/19 05:50 26 H Medical Necessity - Tobacco Use Smoking Status: Current every day smoker Tobacco Use: Cigarettes Assessment/Plan All Active Problems Sigmoid diverticulitis (Acute) Failure of outpatient treatment (Acute) Altered mental status (Acute) Colitis (Acute) Constipation (Acute) Large bowel obstruction (Acute) 1. Sigmoid stricture Loop transverse colostomy on 08/24 plan is to return to OR today for near to complete colectomy some spillage around then colon with surgery on 08/24 now on pip/tazo 2. Acute sigmoid colitis.: on pip/tazo 3. Confusion: Likely metabolic from above. MRI negative for CVA. Patient also had some worsening of her left facial droop. 4. Acute blood loss anemia ordered 1 unit PRBCs monitor 5. acute respiratory failure: post operative. possible pneumonia. on vent. CCM on consult. 6. VTE prophylaxis: high risk. SCDs. hold enoxaparin for now given surgery and ABLA. Code Visit Inpatient E&M: [id number] [facility] L3
--- NOTE | 2019-08-26 09:38 | PN_ITS ---
Progress Note Inspection of the stoma reveals that it is ischemic. This was secondary to the severe amount of distention that the patient had at the time of surgery yesterday. She is slightly less distended at this time but the stoma will not be a long-term alternative. She had extensive amount of adhesions and absolutely no bowel motility last night. I had an extensive discussion with the patient regarding treatment options. I have had additional review per my colleagues. I am recommending to the patient a exploratory laparotomy with extensive lysis of adhesions. A colectomy and possible end colostomy or diverting ileostomy or mucous fistula is being recommended. In detail I discussed the technique, benefit, risks, alternatives. Absolutely no guarantees of success are being offered. The patient is aware that this is a high risk procedure. She is aware that an open abdomen may result that would require additional surgery to attempt closure. She is aware of the risk of . She has had an opportunity to ask and have questions answered. She has been given the opportunity for tertiary referral as well. At this time we are tentat ively making plans with proceeding with surgery locally. Jerrell Hutchins M.D., F.A.C.S. STROKE Vital Signs/Narrative: Vital Signs Temp Pulse Resp BP BP Pulse Ox 08/26/19 08:00 99 08/26/19 07:35 96 15 100 08/26/19 07:00 97 16 112/53 L 100 08/26/19 06:32 99.0 F 101 H 15 108/57 L 100 08/26/19 06:17 99.2 F H 105 H 17 113/65 100 08/26/19 06:00 99.3 F H 101 H 22 H 87/72 L 100 08/26/19 05:50 26 H
[2019-08-26] MEDS: CHLORHEXIDINE GLUC 2% CLOTH 1 EACH TOWELETTE TOPICAL (11:14)
[2019-08-26] MEDS: Chlorhexidine 15 ML PO ×2 (11:14→21:19)
--- NOTE | 2019-08-26 11:26 | CASEMGMT ---
RN CM Assessment Note Presentation: Sigmoid diverticulitis Intro role of CM and purpose of RN CM assessment to patient. Demographics, PCP and Pharmacy verified. Pt is in ICU, on ventilator, but awake, alert, oriented and able to participate. Family member at bedside also able to participate. In answering questions with nods and family assist, pt states she was independent prior to admission, did not use ambulatory DME. RN CM discussed CM will follow after surgery this afternoon. Pt will have colostomy and wound/ostomy nurse is on consult. Plan is for pt to return to surgery today; remain on vent through tomorrow. PCP: Dr. Greg Garcia Specialists: Dr. Jerrell Hutchins, Surgeon Preferred Pharmacy: [facility] Insurance: [employer] Prescription Benefit: yes LNOK : Ronny Whitley, son Living Arrangements: Lives independently in home. No care needs prior to admission. Pt states she was independent in ADL's/IADL's. Transportation: drives DME: none.Pt has walker, cane at home if needed (was her 's who is ) HHC/SNF: none Patient DC goals: Home DC PLAN: Home, may benefit from HHC. Will await post surgical recovery/activity. RN CM let pt know field case manager will follow and assist with dc needs. Wilner ARMANDO RN ACM
--- NOTE | 2019-08-26 12:58 | CON.PCM_ITS ---
Problem List (1) Sigmoid diverticulitis Status: Acute (2) Failure of outpatient treatment Status: Acute (3) Altered mental status Status: Acute (4) Large bowel obstruction Status: Acute (5) Tobacco dependence syndrome Status: Chronic Reason for Consult Date of Consultation: 08/26/19 Reason for Consultation: Respiratory failure, severe sepsis History of Present Illness: The patient is a 64 year old F, with past medical history listed below, who presented to [facility] on 08/24/2019 secondary to increasing confusion, visual hallucinations and lower abdominal pain that have been getting worse over the previous 3 days. Patient had localized abdominal pain to the left lower quadrant and had been taking Augmentin for probable diverticulitis. Patient's pain continued to worsen, so she presented for evaluation. In the ER, patient's vital signs were stable and she was noted to have some mild distention. EKG was relatively unremarkable and patient had a relative anemia at 8.2, but this appeared to be close to her baseline. Creatinine was slightly elevated at 1.28 and urinalysis was unremarkable. CT of the abdomen and pelvis were obtained showing colitis without free air and some constipation. Patient was given morphine, Zofran and IV fluids. Patient was initiated on Cipro and Flagyl at that time. Patient was admitted to the hospital on observation status. On 08/25/2019 at 7 PM, patient was taken to the OR secondary to a large bowel obstruction with suspected sigmoid stricture. Surgery was complicated by significantly dense adhesions with gross distention. There is led to limited transverse colon mobility. Given tension, there was some concern with doing an open procedure as closure would be difficult. A stoma was opened and some spillage was noted. Patient was then admitted to the intensive care unit for close observation. On my evaluation this morning at approximately 6 AM, patient was doing well on a spontaneous breathing trial. However, patient's ostomy was dusky. Patient was evaluated by surgery and reportedly is going to go back to surgery for possible colectomy. Patient has not left for the OR at this time. Patient is awake and able to shake and answer appropriately. Patient has remained on spontaneous pressure support mode for most of the morning without difficulty. Patient is reporting significant left-sided abdominal pain. No pressors have been required. Patient's blood pressures have been marginal, but responded to fluid boluses. Past Medical History Past Medical History (Chronic Problems): Chronic Problems Tobacco dependence syndrome (Chronic) History of Clostridium difficile infection (Chronic) Allergies promethazine HCl [From Phenergan] Adverse Reaction (Verified 08/24/19 13:16) Vomiting BEE STING Allergy (Uncoded 08/24/19 13:16) Anaphylaxis Home Medications: Ambulatory Orders Medication Instructions Recorded Pantoprazole Sodium [Protonix] 40 mg PO DAILY 03/21/17 L.acidoph,Paracasei, B.lactis 1 cap PO DAILY 12/30/17 [Probiotic] Lisinopril [Zestril] 10 mg PO DAILY 12/30/17 Metoprolol(XL)Succ [Toprol Xl 25 mg PO DAILY 12/30/17 (Beta Funmi)] Duloxetine Hcl [Cymbalta] 60 mg PO DAILY 01/25/19 Bupropion HCl [Bupropion HCl Sr] 150 mg PO BID 01/27/19 Clopidogrel Bisulfate [Clopidogrel] 75 mg PO DAILY 01/27/19 Ezetimibe 10 mg PO DAILY 01/27/19 Fenofibrate 54 mg PO DAILY 01/27/19 Amox/Clavulanate Tablet [Augmentin 875 mg PO Q12H #20 tab 08/21/19 Tablet] Ondansetron [Zofran Odt] 4 mg PO Q8H PRN PRN #10 tab 08/21/19 Doxepin HCl 100 mg PO QHS 08/24/19 Duloxetine HCl 30 mg PO DAILY 08/24/19 Lubiprostone [Amitiza] 24 mcg PO BID 08/24/19 Ropinirole HCl [Ropinirole ER] 4 mg PO QHS 08/24/19 Surgical History: appendectomy, cholecystectomy, hysterectomy 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 Review of Systems Comment: See HPI Patient Problems: Active and Suspected Problems Altered mental status (Acute) Colitis (Acute) Constipation (Acute) Large bowel obstruction (Acute) Objective: Chest x-ray was personally reviewed. Endotracheal tube is high. No acute infiltrates were appreciated. Patient did receive 2 units of packed red blood cells this morning following H&H. - Physical Exam Vitals/I&O's: Vital Signs Temp Pulse Resp BP Pulse Ox 37.1 C 86 19 H 101/61 100 08/26/19 10:30 08/26/19 10:30 08/26/19 10:30 08/26/19 10:30 08/26/19 10:30 Oxygen Flow Rate (L/min) 2 Oxygen Delivery Method Mechanical Ventilator Weight: 78.4 kg Body Mass Index (BMI) 27.8 Finger Stick Blood Glucose 86 Intake and Output for Last 24 Hours 08/24/19 08/25/19 08/26/19 23:59 23:59 23:59 Intake Total 1613.33 / 1613.33 2518.67 / 2560.57 2064.14 / 2064.14 Output Total 2225 / 2225 Balance 1613.33 / 1613.33 2518.67 / 1110.57 -160.86 / -160.86 General: Alert, Cooperative, No apparent distress, - - Follows commands. HEENT: Atraumatic, PERRLA, EOMI, Normocephalic, - - No scleral icterus or injection noted Oral: Moist Mucosa, No Gingival or Mucosal Lesions/ Ulcerations Neck: Supple, No JVD, No Nodes, Trachea Midline Lungs: No rhonchi, No wheeze, No rales, Diminished Cardiovascular: Regular rate, Regular Rhythm, Normal S1, Normal S2, No murmurs, No rub noted, No Gallop, - - No ectopy appreciated. Abdomen: Soft, Bowel Sounds Not Present, Distended, Tender - Guarding and rebound appreciated, - - Ostomy appears dusky Extremities: No clubbing, No cyanosis, Edema Skin: Incision - Clean, dry and intact Musculoskeletal: No Tenderness to Palpation of Joints or Extremities Lymphatic: No Cervical, Supraclavicular, or Inguinal Adenopathy Neurological: Cranial nerves II-XII grossly intact, Neuro grossly intact, Motor Exam 5/5 strength throughout Psych/Mental Status: Normal Affect, Appropriate Laboratory Results 08/25/19 05:45: Sodium 136, Potassium 3.5, Chloride 107, Carbon Dioxide 20.0 L, Anion Gap 9, BUN 16, Creatinine 1.18 H, Estim Creat Clear Calc 44.50, Est GFR (MDRD) Af Amer 59 L, Est GFR (MDRD) Non-Af 49 L, BUN/Creatinine Ratio 13.6, Glucose 113 H, Calcium 8.0 L, Iron 11 L, TIBC 298, Iron Saturation 3.7 L, Ferritin 56, Total Bilirubin 0.50, AST 70 H, ALT 75 H, Alkaline Phosphatase 187 H, Total Protein 6.8, Albumin 2.6 L, Globulin 4.2, Albumin/Globulin Ratio 0.6 L, Folate 59.30 H 08/25/19 05:45: Vitamin B12 283 08/25/19 13:15: Lactic Acid 0.7 08/25/19 17:32: POC Glucose 114 H 08/25/19 21:23: Specimen Type ART, Sample Site L Radial, pH 7.32 L, Bicarbonate Actual 19.7 L, POC Total CO2 21, Base Excess -6 L, O2 Saturation 96, O2 % 60, ABG pCO2 38.4, ABG pO2 86, Ty Test POS, Respiration Rate 14, O2 Delivery Device Vent, Minute Volume 7.00, Vent Mode A-C, Tidal Volume 500, POC PEEP 8, Blood Gas Notified Whom [facility] , Blood Gas Notified Time 211408/26/19 01:30: MRSA (PCR) Negative 08/26/19 03:50: WBC 7.3, RBC 2.30 L, Hgb 6.3 L, Hct 19.6 L, MCV 85.2, MCH 27.4, MCHC 32.1, RDW Std Deviation 47.0 H, RDW Coeff of Wilmar 15.2 H, Plt Count 295, MPV 9.3 08/26/19 03:50: Sodium 139, Potassium 3.7, Chloride 109 H, Carbon Dioxide 22.0, Anion Gap 8, BUN 16, Creatinine 0.94, Estim Creat Clear Calc 55.86, Est GFR (MDRD) Af Amer 77, Est GFR (MDRD) Non-Af 64, BUN/Creatinine Ratio 17.0, Glucose 139 H, Calcium 7.7 L 08/26/19 03:50: Total Creatine Kinase 159, Triglycerides 76 08/26/19 04:20: Blood Type A POSITIVE, Antibody Screen NEGATIVE, Crossmatch See Detail Current Medications Atorvastatin Calcium (Lipitor) 80 mg PO QHS [facility] Last Admin: 08/25/19 21:55 Dose: Not Given Documented by: Chlorhexidine Gluconate () 15 ml PO BID [facility] Last Admin: 08/26/19 11:14 Dose: 15 ml Documented by: Chlorhexidine Gluconate () 1 each TOPICAL DAILY [facility] Last Admin: 08/26/19 11:14 Dose: 1 each Documented by: Enoxaparin Sodium (Lovenox) 40 mg SC DAILY [facility] Last Admin: 08/26/19 10:08 Dose: Not Given Documented by: Hydromorphone HCl (Dilaudid Inj) 0.5 mg IV Q2H PRN PRN PRN Reason: pain 6-10/10 Piperacillin Sod/Tazobactam (Sod 3.375 gm/ Sodium Chloride) 50 mls @ 12.5 mls/hr IV Q8 [facility] Last Admin: 08/26/19 12:55 Dose: 12.5 mls/hr Documented by: Propofol (Diprivan) 1,000 mg in 100 mls @ 4.704 mls/hr CONT INF .Q12H [facility]; Protocol Last Titration: 08/26/19 10:00 Dose: 0 mcg/kg/min, 0 mls/hr Documented by: Fentanyl () 100 mls @ 2.5 mls/hr IV UD [facility]; Protocol Last Admin: 08/26/19 07:45 Dose: 150 mcg/hr, 15 mls/hr Documented by: Sodium Chloride () 250 mls @ 15 mls/hr IV .[id number] PRN PRN Reason: Saline Flush Sodium Chloride () 250 mls @ 15 mls/hr IV .[id number] PRN PRN Reason: Additional IVPB Infusion Pantoprazole Sodium 40 mg/ (Sodium Chloride) 110 mls @ 330 mls/hr IV Q12 [facility] Last Infusion: 08/26/19 05:37 Dose: Infused Documented by: Sodium Chloride () 500 mls @ 15 mls/hr IV PRN PRN PRN Reason: Blood Transfusion Melatonin (Melatonin) 3 mg PO QHS PRN PRN PRN Reason: INSOMNIA Ondansetron HCl (Zofran) 4 mg IV Q8H PRN PRN PRN Reason: NAUSEA/VOMITING Last Admin: 08/25/19 15:48 Dose: 4 mg Documented by: Sodium Chloride () 10 - 40 ml IV UD PRN PRN Reason: SALINE FLUSH Last Admin: 08/26/19 05:37 Dose: 40 ml Documented by: Clinical Impression(s) from Imaging Studies Brain MRI 03/04/20 09:00 IMPRESSION: Involutional changes of the brain, as described above. Electronically Signed: Carlitos Tishgutierrez, at 14:50 EST Tel , Service support , Head MRA 08/25/19 09:00 IMPRESSION: Normal MRA of the head Electronically Signed: Peymanveronica Crooks, at 14:35 EST Tel , Service support , Neck MRA 08/25/19 09:00 IMPRESSION: Normal bilateral cervical carotid and vertebral arteries. Electronically Signed: Peymanveronica Crooks, at 15:40 EST Tel , Service support , Chest X-Ray 08/25/19 21:28 IMPRESSION: Satisfactory position of the support lines and tubes. Patchy opacity at the right lung base which is likely infectious in etiology. No acute thoracic pathology. Electronically Signed: Theo James, at 22:39 EST Tel , Service support , Assessment/Plan Active and Suspected Problems Altered mental status (Acute) Colitis (Acute) Constipation (Acute) Large bowel obstruction (Acute) RECOMMENDATIONS: 1. Repeat surgical intervention 2. Continue mechanical ventilation postoperatively 3. Continue empiric antibiotics, bolus as indicated 4. Possible need for central line placement to facilitate pressors 5. Transfuse to keep hemoglobin greater than 8 6. Spontaneous awakening and breathing trials starting tomorrow IMPRESSIONS: 1. Severe sepsis secondary to peritonitis with fecal contamination secondary to sigmoid stricture Patient was significantly complicated surgery overnight. Ostomy does not appear to be viable on my evaluation. Patient is to go back for a possible colectomy. Patient is appropriately on antibiotics. Will bolus as necessary for blood pressures, but cannot exclude the need for pressor agents, especially postoperatively. Continue to monitor. 2. Acute blood loss anemia Patient has been transfused 3 units of packed red blood cells thus far. Unclear if this represents postoperative bleeding or complications associated with abdominal condition. Continue to monitor. Attempt to keep hemoglobin greater than 8 given operative concerns. 3. Acute respiratory failure Patient with failed extubation overnight. Unclear if this is secondary to continued sedation following anesthesia versus another underlying condition. Patient was able to tolerate spontaneous respirations this morning with pressure support for an extended period of time. Lungs are clear, so anticipate once abdominal issues are under control, extubation may be possible. Radiology is reading a possible right lower lobe infiltrate, but this appears to be atelectasis on my evaluation. Patient is already on empiric antibiotics. No need to add vancomycin from my perspective. 4. Metabolic encephalopathy Unclear etiology at this time. Clinical suspicion for problem 1 as an etiology. Continue per delirium protocol. Would avoid Ativan if possible. Electrolytes and renal function appear to be within normal limits. TIME: 44 minutes of critical care time spent addressing severe sepsis, acute blood loss, respiratory failure, review of all data and collaboration with care team (6 AM to 1:30 PM) [id number]: [id number] Critical care first hour
--- NOTE | 2019-08-26 16:49 | OP.PCM_ITS ---
Problem List (1) Large bowel obstruction Status: Acute Report of Operation Date of Procedure: 08/26/19 Pre-Operative Diagnosis: Large bowel obstruction, ischemic transfers colostomy loop stoma Post-Operative Diagnosis: Same Surgery/Procedure Performed:: Exploratory laparotomy with extensive lysis of adhesions and left colectomy with Hardeep procedure and end transverse colostomy left lower quadrant with excision of previous loop colostomy left upper abdomen Description of Surgical Findings:: Timeout and informed consent was obtained. Patient taken the operating placement table. She is already on therapeutic Zosyn. The stoma left upper quadrant was sutured closed. The abdomen was sterilely prepped draped. A vertical midline incision superior to the umbilicus was created carried down through the subtenons tissue. Linea alba was incised. Adhesions of omentum were dissected free. Exploration revealed that the greater omentum was firmly adherent in the pelvis over a broad area. This pulled the proximal transverse colon down to the pelvis and limited its mobility significantly. There was significant amount of stool located throughout the entire left colon with a palp able indurated rectosigmoid colon with what appeared to be a stricture and very firm stool retrograde from that. After extensive lysis of adhesions freeing the greater omentum could then see that the transverse colon could be mobilized. Could not see any means of doing a primary anastomosis today due to the significant fecal load and due to the amount of induration and inflammation of the rectosigmoid area. After much consideration elected to do a Hardeep procedure using a candycane stapler to transect the rectosigmoid. I then dissected free the entire left colon using Enseal device and interrupted 0 Vicryl suture ligature for hemostasis took that all the way up to the transverse stoma. Resected that ischemic stoma and released it. Having achieved that the mid and proximal transverse colon could already be mobilized down to the left lower quadrant. A stomal site was selected in the left flaquito-rectus area just inferior to the umbilicus a circular portion of skin was completely excised. A vertical incision was made in the rectus fascia opening was made the bowel was exited at that level. It appeared to have good positional lie. I made no attempt to close the trap was that with a for sure made the transverse colon ischemic. I left the small bowel in position. There was significantly way posterior to that transverse mesentery to allow for free movement of the small bowel. The rectosigmoid area was inspected and there was a ischemic area that needed to be re-resected which we did. That specimen was also submitted. That was performed with a candycane stapler. That stapler performed the stapling right at the strictured area of the bowel. The abdomen was now copiously irrigated. The posterior and anterior rectus sheath at the previous recently made left upper quadrant stoma site was closed with a running 0 PDS. The midline fascia was closed with a running #1 PDS. Both the stoma incision in the midline incision left open and packed with saline Kerlix gauze. The left lower quadrant newly created stoma was matured with interrupted 4-0 Vicryl. Sponge and instrument and needle counts reported the surgery were correct. Blood loss 300 cc. Specimens left colon and rectosigmoid extra segment x1 and ischemic stomal fragments. Drains none. The patient was taken back to the intensive care unit in septic condition. She remained intubated on a ventilator. Jerrell Hutchins M.D., F.A.C.S. business executive: Clark Lomax Type of Anesthesia:: General Anesthesiologist: Tere Lima
[2019-08-26 17:38] LABS: Hematocrit 36.6 % (37-47); Hemoglobin 11.7 g/dL (12.0-15.0); Mean Corpuscular Hgb 27.6 pg (27.0-32.0); Mean Corpuscular Volume 86.3 fL (81-99); Platelet Count 263 K/mm3 (150-450); RBC Distribution Width CV 15.3 % (11.6-14.6); RBC Distribution Width SD 48.1 fl (35.1-43.9); Red Blood Count 4.24 M/mm3 (4.2-5.4); White Blood Count 5.3 K/mm3 (4.4-11.0)
[2019-08-26] MEDS: Propofol 10MG/Ml 1,000 MG/100 ML Bottle 4.7 MG CONT INF (20:30)
[2019-08-27] VITALS (35 sets, daily range): BP systolic 106–147; BP diastolic 64–96; PULSE 90–110; RESP 14–27; TEMP 36.1–36.7; O2SAT 92–98
[2019-08-27] MEDS: Propofol 10MG/Ml 1,000 MG/100 ML Bottle 16.5 MG CONT INF (02:17)
[2019-08-27] MEDS: fentaNYL drip 100 ML 15 MCG IV (02:20)
[2019-08-27 04:41] LABS: Absolute Lymphocyte Count 1.41 X10^3/uL (0.83-4.51); Absolute Neutrophil Count 7.4 X10^3/uL (2.0-7.7); Basophil# 0.03 X10^3/uL; Basophil% 0.3 % (0-1); Differential Indicated SCAN CRITERIA MET; Eosinophil# 0.02 X10^3/uL; Eosinophils% 0.2 % (0-5); Hematocrit 35.7 % (37-47); Hemoglobin 11.9 g/dL (12.0-15.0); Lymphocyte # 1.41 X10^3/ul (4.0); Lymphocyte % 13.3 % (19-41); Mean Corp Hgb Conc 33.3 g/dL (32-36); Mean Corpuscular Hgb 28.3 pg (27.0-32.0); Mean Corpuscular Volume 84.8 fL (81-99); Mean Platelet Vol. 10.1 fl (6.2-12.0); Monocyte# 1.66 X10^3/uL; Monocyte% 15.7 % (0-10); NRBC Flagged by Analyzer 0 % (0-5); Neutrophil # 7.37 X10^3/uL (2.7-7.7); Neutrophil % 69.6 % (47-70); POSITIVE DIFFERENTIAL YES; POSITIVE MORPHOLOGY YES; Platelet Count 312 K/mm3 (150-450); RBC Distribution Width CV 15.8 % (11.6-14.6); RBC Distribution Width SD 48.5 fl (35.1-43.9); Red Blood Count 4.21 M/mm3 (4.2-5.4); White Blood Count 10.6 K/mm3 (4.4-11.0)
[2019-08-27 05:01] LABS: ALB/GLOB Ratio 0.4 RATIO (0.9-2.4); AST(SGOT) 32 U/L (15-37); Alanine Aminotransfer ALT/SGPT 40 U/L (13-56); Albumin, Serum 1.7 g/dL (3.2-5.0); Alkaline Phosphatase 104 U/L (45-117); Anion Gap 8 (5-15); BUN 14 mg/dL (7-18); BUN/Creat Ratio 15.5 RATIO (10-20); Calcium,Total 7.6 mg/dL (8.5-10.1); Chloride 107 mmol/L (98-107); EST Glomerular Filtration Rate 66 mL/min (>60); Est Glom Filt Rate - Afr Amer 80 mL/min (>60); Estimated Creatinine Clearance 58.34 ml/min; Globulin 3.8 g/dL (2.2-4.2); Glucose 158 mg/dL (74-106); Protein, Total 5.5 g/dL (6.4-8.2); Sodium Level 137 mmol/L (136-145)
[2019-08-27 05:20] LABS: Differential Comment SCANNED
--- NOTE | 2019-08-27 05:49 | PN.SURG_ITS ---
Patient Problems: Active and Suspected Problems Altered mental status (Acute) Colitis (Acute) Constipation (Acute) Large bowel obstruction (Acute) Subjective: Pt appears stable overnight with good UOP and stable VS. She is alert and ready for extubation - Physical Exam Vitals/I&O's: Vital Signs Temp Pulse Resp BP Pulse Ox 97.1 F L 108 H 16 123/79 H 96 08/27/19 00:00 08/27/19 03:15 08/27/19 03:15 08/27/19 03:00 08/27/19 03:15 Oxygen Flow Rate (L/min) 2 Oxygen Delivery Method Mechanical Ventilator Weight: 170 lb 13.732 oz Body Mass Index (BMI) 27.8 Finger Stick Blood Glucose 86 Intake and Output for Last 24 Hours 08/25/19 08/26/19 08/27/19 23:59 23:59 23:59 Intake Total 2518.67 / 2560.57 2829.01 / 2917.59 210.03 / 210.03 Output Total 3375 / 3500 250 / 250 Balance 2518.67 / 1110.57 -545.99 / -582.41 -39.97 / -39.97 General: Alert, Oriented x3, Cooperative, No apparent distress Lungs: - - scattered wheeze Abdomen: Bowel Sounds Not Present, Distended, Tender Laboratory Results 08/26/19 04:20: Blood Type A POSITIVE, Antibody Screen NEGATIVE, Crossmatch See Detail 08/26/19 04:20: Crossmatch See Detail 08/26/19 17:30: WBC 5.3, RBC 4.24, Hgb 11.7 L, Hct 36.6 L, MCV 86.3, MCH 27.6, MCHC 32.0, RDW Std Deviation 48.1 H, RDW Coeff of Wilmar 15.3 H, Plt Count 263, MPV 9.0 08/27/19 04:00: WBC 10.6, RBC 4.21, Hgb 11.9 L, Hct 35.7 L, MCV 84.8, MCH 28.3, MCHC 33.3, RDW Std Deviation 48.5 H, RDW Coeff of Wilmar 15.8 H, Plt Count 312, MPV 10.1, Immature Gran % (Auto) 0.900, Neut % (Auto) 69.6, Lymph % (Auto) 13.3 L, Hardee % (Auto) 15.7 H, Eos % (Auto) 0.2, Baso % (Auto) 0.3, Absolute Neuts (auto) 7.4, Absolute Lymphs (auto) 1.41, Nucleated RBC % 0, Differential Comment SCANNED 08/27/19 04:00: Sodium 137, Potassium 4.0, Chloride 107, Carbon Dioxide 22.0, Anion Gap 8, BUN 14, Creatinine 0.90, Estim Creat Clear Calc 58.34, Est GFR (MDRD) Af Amer 80, Est GFR (MDRD) Non-Af 66, BUN/Creatinine Ratio 15.5, Glucose 158 H, Calcium 7.6 L, Total Bilirubin 0.60, AST 32, ALT 40, Alkaline Phosphatase 104, Total Protein 5.5 L, Albumin 1.7 L, Globulin 3.8, Albumin/Globulin Ratio 0.4 L Current Medications Atorvastatin Calcium (Lipitor) 80 mg PO QHS [facility] Last Admin: 08/26/19 21:15 Dose: Not Given Documented by: Chlorhexidine Gluconate () 15 ml PO BID [facility] Last Admin: 08/26/19 21:19 Dose: 15 ml Documented by: Chlorhexidine Gluconate () 1 each TOPICAL DAILY [facility] Last Admin: 08/26/19 11:14 Dose: 1 each Documented by: Enoxaparin Sodium (Lovenox) 40 mg SC DAILY [facility] Last Admin: 08/26/19 10:08 Dose: Not Given Documented by: Hydromorphone HCl (Dilaudid Inj) 0.5 mg IV Q2H PRN PRN PRN Reason: pain 6-10/10 Piperacillin Sod/Tazobactam (Sod 3.375 gm/ Sodium Chloride) 50 mls @ 12.5 mls/hr IV Q8 [facility] Last Admin: 08/27/19 05:30 Dose: 12.5 mls/hr Documented by: Propofol (Diprivan) 1,000 mg in 100 mls @ 4.65 mls/hr CONT INF .Q12H [facility]; Protocol Last Titration: 08/27/19 03:45 Dose: 20 mcg/kg/min, 9.4 mls/hr Documented by: Fentanyl () 100 mls @ 2.5 mls/hr IV UD [facility]; Protocol Last Titration: 08/27/19 03:00 Dose: 100 mcg/hr, 10 mls/hr Documented by: Sodium Chloride () 250 mls @ 15 mls/hr IV .[id number] PRN PRN Reason: Saline Flush Sodium Chloride () 250 mls @ 15 mls/hr IV .[id number] PRN PRN Reason: Additional IVPB Infusion Pantoprazole Sodium 40 mg/ (Sodium Chloride) 110 mls @ 330 mls/hr IV Q12 [facility] Last Infusion: 08/26/19 21:33 Dose: Infused Documented by: Sodium Chloride () 500 mls @ 15 mls/hr IV PRN PRN PRN Reason: Blood Transfusion Melatonin (Melatonin) 3 mg PO QHS PRN PRN PRN Reason: INSOMNIA Ondansetron HCl (Zofran) 4 mg IV Q8H PRN PRN PRN Reason: NAUSEA/VOMITING Last Admin: 08/25/19 15:48 Dose: 4 mg Documented by: Sodium Chloride () 10 - 40 ml IV UD PRN PRN Reason: SALINE FLUSH Last Admin: 08/26/19 05:37 Dose: 40 ml Documented by: Medical Necessity - Tobacco Use Smoking Status: Current every day smoker Tobacco Use: Cigarettes Assessment/Plan All Active Problems Sigmoid diverticulitis (Acute) Failure of outpatient treatment (Acute) Altered mental status (Acute) Colitis (Acute) Constipation (Acute) Large bowel obstruction (Acute) I am very pleased with current progress Concur with hopeful extubation and then early mobilization No diverticultis but rather colonic stricture with colonic obstruction/stool impaction now resolved with resection --Chu with end transverse colostomy LLQ Will request wound vac to mid line and left upper quadrant wounds Will leave ngt for the moment b/o the degree of extensive lysis of adhesions and extent on colonic resection [place] can be removed after extubation Will stop antibiotics previously prescribed for presumed diverticulitis Dr Lomax will assist with surgical coverage in my absence
--- NOTE | 2019-08-27 07:49 | PCM.PN.INT ---
Subjective: Patient did well overnight. No acute issues were reported. Patient did have to go back to surgery yesterday, but reportedly this went smooth. Patient was able to be placed on a spontaneous breathing trial this morning and tolerated for 2 hours. Attempts at an ABG for confirmation were unsuccessful, but patient was comfortable and denied any dyspnea. Confirmed with surgery and the patient was extubated under my direct supervision. General: Alert, Cooperative, No apparent distress, - - Good synchrony. HEENT: Atraumatic, PERRLA, EOMI, Normocephalic, - - No scleral icterus or injection noted Oral: Moist Mucosa, No Gingival or Mucosal Lesions/ Ulcerations Neck: Supple, No JVD, No Nodes, Trachea Midline Lungs: Normal air movement, No rhonchi, No wheeze, No rales, - - Symmetric expansion. Cardiovascular: Normal S1, Normal S2, No murmurs, No rub noted, No Gallop, Tachycardic Abdomen: Soft, Hypoactive Bowel Sounds, Distended - Mild, Tender - Guarding noted. Extremities: No clubbing, No cyanosis, Edema Skin: Incision - Clean, dry and intact Musculoskeletal: No Tenderness to Palpation of Joints or Extremities Lymphatic: No Cervical, Supraclavicular, or Inguinal Adenopathy Neurological: Cranial nerves II-XII grossly intact, Neuro grossly intact, Motor Exam 5/5 strength throughout Psych/Mental Status: Normal Affect, Appropriate Vital Signs Temp Pulse Resp BP Pulse Ox 36.1 C L 103 H 15 147/78 H 98 08/27/19 04:00 08/27/19 06:00 08/27/19 06:00 08/27/19 06:00 08/27/19 06:00 Oxygen Flow Rate (L/min) 2 Oxygen Delivery Method Mechanical Ventilator Weight: 77.5 kg Body Mass Index (BMI) 27.8 Finger Stick Blood Glucose 86 Intake and Output for Last 24 Hours 08/25/19 08/26/19 08/27/19 23:59 23:59 23:59 Intake Total 2518.67 / 2560.57 2829.01 / 2917.59 307.99 / 307.99 Output Total 3375 / 3500 250 / 250 Balance 2518.67 / 1110.57 -545.99 / -582.41 57.99 / 57.99 Labs (Last 48 Hours) 03/10/1008/25/19 08/25/19 05:45 05:45 13:15 WBC RBC Hgb Hct MCV MCH MCHC RDW Std Deviation RDW Coeff of Wilmar Plt Count MPV Immature Gran % (Auto) Neut % (Auto) Lymph % (Auto) [place] % (Auto) Eos % (Auto) Baso % (Auto) Absolute Neuts (auto) Absolute Lymphs (auto) Nucleated RBC % Differential Comment Specimen Type Sample Site pH Bicarbonate Actual POC Total CO2 Base Excess O2 Saturation O2 % ABG pCO2 ABG pO2 Ty Test Respiration Rate O2 Delivery Device Minute Volume Vent Mode Tidal Volume POC PEEP Blood Gas Notified Whom Blood Gas Notified Time Sodium 136 Potassium 3.5 Chloride 107 Carbon Dioxide 20.0 L Anion Gap 9 BUN 16 Creatinine 1.18 H Estim Creat Clear Calc 44.50 Est GFR (MDRD) Af Amer 59 L Est GFR (MDRD) Non-Af 49 L BUN/Creatinine Ratio 13.6 Glucose 113 H Lactic Acid 0.7 Calcium 8.0 L Iron 11 L TIBC 298 Iron Saturation 3.7 L Ferritin 56 Total Bilirubin 0.50 AST 70 H ALT 75 H Alkaline Phosphatase 187 H Total Creatine Kinase Total Protein 6.8 Albumin 2.6 L Globulin 4.2 Albumin/Globulin Ratio 0.6 L Triglycerides Vitamin B12 283 Folate 59.30 H MRSA (PCR) POC Glucose Blood Type Antibody Screen Crossmatch 08/25/19 08/25/19 08/26/19 17:32 21:23 01:30 WBC RBC Hgb Hct MCV MCH MCHC RDW Std Deviation RDW Coeff of Wilmar Plt Count MPV Immature Gran % (Auto) Neut % (Auto) Lymph % (Auto) [place] % (Auto) Eos % (Auto) Baso % (Auto) Absolute Neuts (auto) Absolute Lymphs (auto) Nucleated RBC % Differential Comment Specimen Type ART Sample Site L Radial pH 7.32 L Bicarbonate Actual 19.7 L POC Total CO2 21 Base Excess -6 L O2 Saturation 96 O2 % 60 ABG pCO2 38.4 ABG pO2 86 Ty Test POS Respiration Rate 14 O2 Delivery Device Vent Minute Volume 7.00 Vent Mode A-C Tidal Volume 500 POC PEEP 8 Blood Gas Notified Whom [facility] Blood Gas Notified Time 211 Sodium Potassium Chloride Carbon Dioxide Anion Gap BUN Creatinine Estim Creat Clear Calc Est GFR (MDRD) Af Amer Est GFR (MDRD) Non-Af BUN/Creatinine Ratio Glucose Lactic Acid Calcium Iron TIBC Iron Saturation Ferritin Total Bilirubin AST ALT Alkaline Phosphatase Total Creatine Kinase Total Protein Albumin Globulin Albumin/Globulin Ratio Triglycerides Vitamin B12 Folate MRSA (PCR) Negative POC Glucose 114 H Blood Type Antibody Screen Crossmatch 08/26/19 08/26/19 08/26/19 03:50 03:50 03:50 WBC 7.3 RBC 2.30 L Hgb 6.3 L Hct 19.6 L MCV 85.2 MCH 27.4 MCHC 32.1 RDW Std Deviation 47.0 H RDW Coeff of Wilmar 15.2 H Plt Count 295 MPV 9.3 Immature Gran % (Auto) Neut % (Auto) Lymph % (Auto) [place] % (Auto) Eos % (Auto) Baso % (Auto) Absolute Neuts (auto) Absolute Lymphs (auto) Nucleated RBC % Differential Comment Specimen Type Sample Site pH Bicarbonate Actual POC Total CO2 Base Excess O2 Saturation O2 % ABG pCO2 ABG pO2 Ty Test Respiration Rate O2 Delivery Device Minute Volume Vent Mode Tidal Volume POC PEEP Blood Gas Notified Whom Blood Gas Notified Time Sodium 139 Potassium 3.7 Chloride 109 H Carbon Dioxide 22.0 Anion Gap 8 BUN 16 Creatinine 0.94 Estim Creat Clear Calc 55.86 Est GFR (MDRD) Af Amer 77 Est GFR (MDRD) Non-Af 64 BUN/Creatinine Ratio 17.0 Glucose 139 H Lactic Acid Calcium 7.7 L Iron TIBC Iron Saturation Ferritin Total Bilirubin AST ALT Alkaline Phosphatase Total Creatine Kinase 159 Total Protein Albumin Globulin Albumin/Globulin Ratio Triglycerides 76 Vitamin B12 Folate MRSA (PCR) POC Glucose Blood Type Antibody Screen Crossmatch 08/26/19 08/26/19 08/26/19 04:20 04:20 17:30 WBC 5.3 RBC 4.24 Hgb 11.7 L Hct 36.6 L MCV 86.3 MCH 27.6 MCHC 32.0 RDW Std Deviation 48.1 H RDW Coeff of Wilmar 15.3 H Plt Count 263 MPV 9.0 Immature Gran % (Auto) Neut % (Auto) Lymph % (Auto) [place] % (Auto) Eos % (Auto) Baso % (Auto) Absolute Neuts (auto) Absolute Lymphs (auto) Nucleated RBC % Differential Comment Specimen Type Sample Site pH Bicarbonate Actual POC Total CO2 Base Excess O2 Saturation O2 % ABG pCO2 ABG pO2 Ty Test Respiration Rate O2 Delivery Device Minute Volume Vent Mode Tidal Volume POC PEEP Blood Gas Notified Whom Blood Gas Notified Time Sodium Potassium Chloride Carbon Dioxide Anion Gap BUN Creatinine Estim Creat Clear Calc Est GFR (MDRD) Af Amer Est GFR (MDRD) Non-Af BUN/Creatinine Ratio Glucose Lactic Acid Calcium Iron TIBC Iron Saturation Ferritin Total Bilirubin AST ALT Alkaline Phosphatase Total Creatine Kinase Total Protein Albumin Globulin Albumin/Globulin Ratio Triglycerides Vitamin B12 Folate MRSA (PCR) POC Glucose Blood Type A POSITIVE Antibody Screen NEGATIVE Crossmatch See Detail See Detail 08/27/19 08/27/19 04:00 04:00 WBC 10.6 RBC 4.21 Hgb 11.9 L Hct 35.7 L MCV 84.8 MCH 28.3 MCHC 33.3 RDW Std Deviation 48.5 H RDW Coeff of Wilmar 15.8 H Plt Count 312 MPV 10.1 Immature Gran % (Auto) 0.900 Neut % (Auto) 69.6 Lymph % (Auto) 13.3 L [place] % (Auto) 15.7 H Eos % (Auto) 0.2 Baso % (Auto) 0.3 Absolute Neuts (auto) 7.4 Absolute Lymphs (auto) 1.41 Nucleated RBC % 0 Differential Comment SCANNED Specimen Type Sample Site pH Bicarbonate Actual POC Total CO2 Base Excess O2 Saturation O2 % ABG pCO2 ABG pO2 Ty Test Respiration Rate O2 Delivery Device Minute Volume Vent Mode Tidal Volume POC PEEP Blood Gas Notified Whom Blood Gas Notified Time Sodium 137 Potassium 4.0 Chloride 107 Carbon Dioxide 22.0 Anion Gap 8 BUN 14 Creatinine 0.90 Estim Creat Clear Calc 58.34 Est GFR (MDRD) Af Amer 80 Est GFR (MDRD) Non-Af 66 BUN/Creatinine Ratio 15.5 Glucose 158 H Lactic Acid Calcium 7.6 L Iron TIBC Iron Saturation Ferritin Total Bilirubin 0.60 AST 32 ALT 40 Alkaline Phosphatase 104 Total Creatine Kinase Total Protein 5.5 L Albumin 1.7 L Globulin 3.8 Albumin/Globulin Ratio 0.4 L Triglycerides Vitamin B12 Folate MRSA (PCR) POC Glucose Blood Type Antibody Screen Crossmatch Medical Necessity - Tobacco Use Smoking Status: Current every day smoker Tobacco Use: Cigarettes Assessment/Plan All Active Problems Sigmoid diverticulitis (Acute) Failure of outpatient treatment (Acute) Altered mental status (Acute) Colitis (Acute) Constipation (Acute) Large bowel obstruction (Acute) RECOMMENDATIONS: 1. Aggressive pain control 2. Encourage incentive spirometer 3. Out of bed as tolerated 4. Wean oxygen as tolerated 5. Transfuse to keep hemoglobin greater than 8 6. Okay to discontinue Bay catheter from a critical care perspective IMPRESSIONS: 1. Severe sepsis secondary to peritonitis with fecal contamination secondary to sigmoid stricture Patient was significantly complicated surgical course. Patient is doing better this morning. Patient is to go back for a possible colectomy. Antibiotics were discontinued by surgery. No significant leukocytosis or fever overnight. We will continue to monitor off of antibiotics. 2. Acute blood loss anemia Patient has been transfused 3 units of packed red blood cells thus far. This now appears to be stable. Continue to monitor. Keep hemoglobin greater than 8 given operative concerns. 3. Acute respiratory failure Patient appears to be doing well from a respiratory standpoint. Some concern for high narcotic needs secondary to abdominal pain. Patient able to tolerate spontaneous breathing trial well. Extubated under my direct supervision. We will continue to monitor. 4. Metabolic encephalopathy Appears to be improved. Clinical suspicion for problem 1 as an etiology. Continue per delirium protocol. Would avoid Ativan if possible. Electrolytes and renal function appear to be within normal limits. TIME: 36 minutes of critical care time spent addressing severe sepsis, acute blood loss, respiratory failure, review of all data and collaboration with care team (7 AM to 8 AM) 9xxxx: [id number] Critical care first hour
[2019-08-27] MEDS: HYDROmorphone 0.5 MG/0.5 ML SYRINGE IV ×4 (08:16→22:52)
--- NOTE | 2019-08-27 09:52 | NURSING ---
wound photo: abdomen
--- NOTE | 2019-08-27 09:53 | NURSING ---
wound photo: left abdomen
[2019-08-27] MEDS: Enoxaparin 40 MG/0.4 ML Syringe SC (10:12)
[2019-08-27] MEDS: Chlorhexidine 15 ML PO (10:13)
--- NOTE | 2019-08-27 11:03 | CASEMGMT ---
RN LUIS Note: Participated in ICU rounds. Pt extubated, NG, pain management. Per surgeon note, wound vac anticipated on dc for abd wound. New colostomy. Tulio, wound nurse aware. -RN LUIS spoke with pt and son at length after rounds re: plan for home on discharge, Anticipated need for home care. Possible wound vac placement and need for changes by Home care nurse 3x weekly. F/U with surgeon, PCP on dc. Son is able to assist, and daughter from out of town is planning to come also. - List of area agencies reviewed. First choice is [facility]. Call to Alyce to update. Order placed. Wilner COE BSN AC
--- NOTE | 2019-08-27 13:23 | PCM.PN.HOSP ---
Patient Problems: Active and Suspected Problems Altered mental status (Acute) Colitis (Acute) Constipation (Acute) Large bowel obstruction (Acute) Reason for Visit: colonic stricture Subjective: extubated today. abdomen feeling better, though still requiring pain medication. no flatus. Vitals/I&O's: Vital Signs Temp Pulse Resp BP Pulse Ox 36.7 C 93 20 H 124/80 H 95 08/27/19 12:00 08/27/19 13:00 08/27/19 13:00 08/27/19 13:00 08/27/19 13:00 Oxygen Flow Rate (L/min) 2 Oxygen Delivery Method Nasal Cannula Weight: 77.5 kg Body Mass Index (BMI) 27.8 Finger Stick Blood Glucose 86 Intake and Output for Last 24 Hours 08/25/19 08/26/19 08/27/19 23:59 23:59 23:59 Intake Total 2518.67 / 2560.57 2829.01 / 2917.59 495.49 / 495.49 Output Total 3375 / 3500 250 / 250 Balance 2518.67 / 1110.57 -545.99 / -582.41 245.49 / 245.49 General: Alert, No apparent distress HEENT: Atraumatic, Normocephalic Oral: Moist Mucosa, No Gingival or Mucosal Lesions/ Ulcerations Neck: No Nodes, Trachea Midline Lungs: Clear to auscultation, Normal air movement, No rhonchi, No wheeze, No rales Cardiovascular: Regular rate, Regular Rhythm, Normal S1, Normal S2, No murmurs Abdomen: Hypoactive Bowel Sounds, Distended, Tender, - - ostomy in LLQ with no output other than some scant serosanginous drainage. Extremities: No edema, No Calf Tenderness Skin: No rashes, No breakdown Psych/Mental Status: Normal Affect, Appropriate Laboratory Results 08/26/19 04:20: Crossmatch See Detail 08/26/19 04:20: Crossmatch See Detail 08/26/19 17:30: WBC 5.3, RBC 4.24, Hgb 11.7 L, Hct 36.6 L, MCV 86.3, MCH 27.6, MCHC 32.0, RDW Std Deviation 48.1 H, RDW Coeff of Wilmar 15.3 H, Plt Count 263, MPV 9.0 08/27/19 04:00: WBC 10.6, RBC 4.21, Hgb 11.9 L, Hct 35.7 L, MCV 84.8, MCH 28.3, MCHC 33.3, RDW Std Deviation 48.5 H, RDW Coeff of Wilmar 15.8 H, Plt Count 312, MPV 10.1, Immature Gran % (Auto) 0.900, Neut % (Auto) 69.6, Lymph % (Auto) 13.3 L, [place] % (Auto) 15.7 H, Eos % (Auto) 0.2, Baso % (Auto) 0.3, Absolute Neuts (auto) 7.4, Absolute Lymphs (auto) 1.41, Nucleated RBC % 0, Differential Comment SCANNED 08/27/19 04:00: Sodium 137, Potassium 4.0, Chloride 107, Carbon Dioxide 22.0, Anion Gap 8, BUN 14, Creatinine 0.90, Estim Creat Clear Calc 58.34, Est GFR (MDRD) Af Amer 80, Est GFR (MDRD) Non-Af 66, BUN/Creatinine Ratio 15.5, Glucose 158 H, Calcium 7.6 L, Total Bilirubin 0.60, AST 32, ALT 40, Alkaline Phosphatase 104, Total Protein 5.5 L, Albumin 1.7 L, Globulin 3.8, Albumin/Globulin Ratio 0.4 L Current Medications Atorvastatin Calcium (Lipitor) 80 mg PO QHS [facility] Last Admin: 08/26/19 21:15 Dose: Not Given Documented by: Chlorhexidine Gluconate () 15 ml PO BID [facility] Last Admin: 08/27/19 10:13 Dose: 15 ml Documented by: Chlorhexidine Gluconate () 1 each TOPICAL DAILY [facility] Last Admin: 08/26/19 11:14 Dose: 1 each Documented by: Enoxaparin Sodium (Lovenox) 40 mg SC DAILY [facility] Last Admin: 08/27/19 10:12 Dose: 40 mg Documented by: Hydromorphone HCl (Dilaudid Inj) 0.5 mg IV Q2H PRN PRN PRN Reason: pain 6-04/01 Last Admin: 08/27/19 08:16 Dose: 0.5 mg Documented by: Sodium Chloride () 250 mls @ 15 mls/hr IV .[id number] PRN PRN Reason: Saline Flush Sodium Chloride () 250 mls @ 15 mls/hr IV .[id number] PRN PRN Reason: Additional IVPB Infusion Pantoprazole Sodium 40 mg/ (Sodium Chloride) 110 mls @ 330 mls/hr IV Q12 [facility] Last Infusion: 08/27/19 11:44 Dose: Infused Documented by: Sodium Chloride () 500 mls @ 15 mls/hr IV PRN PRN PRN Reason: Blood Transfusion Potassium Chloride/Sodium Chloride () 1,000 mls @ 70 mls/hr IV .[id number] [facility] Last Admin: 08/27/19 06:20 Dose: 70 mls/hr Documented by: Melatonin (Melatonin) 3 mg PO QHS PRN PRN PRN Reason: INSOMNIA Ondansetron HCl (Zofran) 4 mg IV Q8H PRN PRN PRN Reason: NAUSEA/VOMITING Last Admin: 08/25/19 15:48 Dose: 4 mg Documented by: Sodium Chloride () 10 - 40 ml IV UD PRN PRN Reason: SALINE FLUSH Last Admin: 08/26/19 05:37 Dose: 40 ml Documented by: STROKE Vital Signs/Narrative: Vital Signs Temp Pulse Resp BP BP Pulse Ox 08/27/19 13:00 93 20 H 124/80 H 95 08/27/19 12:23 90 08/27/19 12:00 36.7 C 92 16 126/72 H 96 08/27/19 11:00 94 15 125/77 H 95 08/27/19 10:00 93 14 125/68 H 96 Medical Necessity - Tobacco Use Smoking Status: Current every day smoker Tobacco Use: Cigarettes Assessment/Plan All Active Problems Sigmoid diverticulitis (Acute) Failure of outpatient treatment (Acute) Altered mental status (Acute) Colitis (Acute) Constipation (Acute) Large bowel obstruction (Acute) 1. Sigmoid stricture Loop transverse colostomy on 08/24 ex lap with extensive ALPESH and left colectomy w Hardeep procedure and end transverse colostomy on 08/25 some spillage around then colon with surgery on 08/24 now on pip/tazo 2. Acute sigmoid colitis.: ruled out 3. metabolic encephalopathy Likely metabolic from above. MRI negative for CVA. resolved 4. Acute blood loss anemia transfused 4 units PRBCs, now up to 11.9 monitor 5. acute respiratory failure: post operative. possible pneumonia. on vent. CCM on consult. extubated on 08/26 6. VTE prophylaxis: high risk. SCDs. hold enoxaparin for now given surgery and ABLA. 7. Dysphagia: chronic. has had dilations w dr. short. unclear if strictures. check records from his office. DW patient's son at bedside. Inpatient E&M: 75070 Subs Hosp L2
[2019-08-27] MEDS: 0.9% Saline Lock 10 ML Syringe IV ×3 (13:39→22:54)
[2019-08-27] MEDS: CHLORHEXIDINE GLUC 2% CLOTH 1 EACH TOWELETTE TOPICAL (14:09)
[2019-08-27] MEDS: Lactated Ringers 1,000 ML 999 ML IV (14:21)
[2019-08-27 23:05] LABS: Bedside Glucose 114 mg/dL (70-110)
[2019-08-28] VITALS (22 sets, daily range): BP systolic 102–156; BP diastolic 65–91; PULSE 88–105; RESP 15–25; TEMP 36.3–36.9; O2SAT 90–96
[2019-08-28] MEDS: HYDROmorphone 0.5 MG/0.5 ML SYRINGE IV ×6 (01:54→21:20)
[2019-08-28] MEDS: 0.9% Saline Lock 10 ML Syringe IV ×4 (01:56→21:20)
[2019-08-28 04:35] LABS: Absolute Lymphocyte Count 1.58 X10^3/uL (0.83-4.51); Absolute Neutrophil Count 11.4 X10^3/uL (2.0-7.7); Basophil# 0.04 X10^3/uL; Basophil% 0.3 % (0-1); Eosinophils% 0.7 % (0-5); Hematocrit 31.1 % (37-47); Hemoglobin 10.1 g/dL (12.0-15.0); Lymphocyte # 1.58 X10^3/ul (4.0); Lymphocyte % 10.7 % (19-41); Mean Corp Hgb Conc 32.5 g/dL (32-36); Mean Corpuscular Hgb 28.1 pg (27.0-32.0); Mean Corpuscular Volume 86.4 fL (81-99); Mean Platelet Vol. 9.1 fl (6.2-12.0); Monocyte# 1.56 X10^3/uL; Monocyte% 10.6 % (0-10); NRBC Flagged by Analyzer 0 % (0-5); Neutrophil # 11.39 X10^3/uL (2.7-7.7); POSITIVE DIFFERENTIAL YES; Platelet Count 282 K/mm3 (150-450); RBC Distribution Width SD 51.2 fl (35.1-43.9); White Blood Count 14.8 K/mm3 (4.4-11.0)
[2019-08-28 04:37] LABS: Differential Indicated SCAN CRITERIA MET
[2019-08-28 04:48] LABS: Anion Gap 6 (5-15); BUN 14 mg/dL (7-18); BUN/Creat Ratio 18.4 RATIO (10-20); Calcium,Total 7.6 mg/dL (8.5-10.1); Chloride 111 mmol/L (98-107); Creatinine, Serum 0.76 mg/dL (0.55-1.02); EST Glomerular Filtration Rate 81 mL/min (>60); Est Glom Filt Rate - Afr Amer 98 mL/min (>60); Estimated Creatinine Clearance 69.09 ml/min; Glucose 112 mg/dL (74-106); Potassium 4.1 mmol/L (3.5-5.1); Sodium Level 142 mmol/L (136-145)
[2019-08-28 05:15] LABS: Bedside Glucose 101 mg/dL (70-110)
--- NOTE | 2019-08-28 07:14 | PN_ITS ---
Subjective: Patient did okay overnight. Patient remains on minimal nasal cannula oxygen. Nursing reports the patient has been taking Dilaudid as able secondary to abdominal pain. Patient reportedly does not give pain scores lower than 10 despite falling asleep. Patient denies any nausea or vomiting. General: Alert, Cooperative, No apparent distress, - - RASS -1. Slightly slurred speech. HEENT: Atraumatic, PERRLA, EOMI, Normocephalic, - - Slight scleral injection without icterus Oral: Moist Mucosa, No Gingival or Mucosal Lesions/ Ulcerations Neck: Supple, No JVD, No Nodes, Trachea Midline Lungs: No rhonchi, No wheeze, No rales, Diminished, - - Symmetric expansion. Cough with deep inhalation. Cardiovascular: Regular rate, Regular Rhythm, Normal S1, Normal S2, No murmurs, No rub noted, No Gallop Abdomen: Soft, Hypoactive Bowel Sounds, Distended - Slightly, Tender - With guarding. Extremities: No clubbing, No cyanosis, Edema - Trace to 1+ lower extremity, - - Ostomy is pink Skin: No rashes, No breakdown, Incision - Clean, dry and intact Musculoskeletal: No Tenderness to Palpation of Joints or Extremities Lymphatic: No Cervical, Supraclavicular, or Inguinal Adenopathy Neurological: Cranial nerves II-XII grossly intact, Neuro grossly intact Psych/Mental Status: Flat Affect Vital Signs Temp Pulse Resp BP Pulse Ox 36.3 C L 105 H 15 156/74 H 91 08/28/19 04:00 08/28/19 06:00 08/28/19 06:00 08/28/19 06:00 08/28/19 06:00 Oxygen Flow Rate (L/min) 3 Oxygen Delivery Method Nasal Cannula Weight: 79.3 kg Body Mass Index (BMI) 27.8 Finger Stick Blood Glucose 86 Intake and Output for Last 24 Hours 08/26/19 08/27/19 08/28/19 23:59 23:59 23:59 Intake Total 2829.01 / 2917.59 2912.49 / 2912.49 100 / 100 Output Total 3375 / 3500 1085 / 1085 330 / 330 Balance -545.99 / -582.41 1827.49 / 1827.49 -230 / -230 Labs (Last 48 Hours) 08/26/19 08/26/19 08/26/19 04:20 04:20 17:30 WBC 5.3 RBC 4.24 Hgb 11.7 L Hct 36.6 L MCV 86.3 MCH 27.6 MCHC 32.0 RDW Std Deviation 48.1 H RDW Coeff of Wilmar 15.3 H Plt Count 263 MPV 9.0 Immature Gran % (Auto) Neut % (Auto) Lymph % (Auto) [place] % (Auto) Eos % (Auto) Baso % (Auto) Absolute Neuts (auto) Absolute Lymphs (auto) Nucleated RBC % Differential Comment Sodium Potassium Chloride Carbon Dioxide Anion Gap BUN Creatinine Estim Creat Clear Calc Est GFR (MDRD) Af Amer Est GFR (MDRD) Non-Af BUN/Creatinine Ratio Glucose Calcium Total Bilirubin AST ALT Alkaline Phosphatase Total Protein Albumin Globulin Albumin/Globulin Ratio POC Glucose Blood Type A POSITIVE Antibody Screen NEGATIVE Crossmatch See Detail See Detail 08/27/19 08/27/19 08/27/19 04:00 04:00 22:55 WBC 10.6 RBC 4.21 Hgb 11.9 L Hct 35.7 L MCV 84.8 MCH 28.3 MCHC 33.3 RDW Std Deviation 48.5 H RDW Coeff of Wilmar 15.8 H Plt Count 312 MPV 10.1 Immature Gran % (Auto) 0.900 Neut % (Auto) 69.6 Lymph % (Auto) 13.3 L [place] % (Auto) 15.7 H Eos % (Auto) 0.2 Baso % (Auto) 0.3 Absolute Neuts (auto) 7.4 Absolute Lymphs (auto) 1.41 Nucleated RBC % 0 Differential Comment SCANNED Sodium 137 Potassium 4.0 Chloride 107 Carbon Dioxide 22.0 Anion Gap 8 BUN 14 Creatinine 0.90 Estim Creat Clear Calc 58.34 Est GFR (MDRD) Af Amer 80 Est GFR (MDRD) Non-Af 66 BUN/Creatinine Ratio 15.5 Glucose 158 H Calcium 7.6 L Total Bilirubin 0.60 AST 32 ALT 40 Alkaline Phosphatase 104 Total Protein 5.5 L Albumin 1.7 L Globulin 3.8 Albumin/Globulin Ratio 0.4 L POC Glucose 114 H Blood Type Antibody Screen Crossmatch 08/28/19 08/28/19 08/28/19 04:30 04:30 05:06 WBC 14.8 H RBC 3.60 L Hgb 10.1 L Hct 31.1 L MCV 86.4 MCH 28.1 MCHC 32.5 RDW Std Deviation 51.2 H RDW Coeff of Wilmar 16.0 H Plt Count 282 MPV 9.1 Immature Gran % (Auto) 0.700 Neut % (Auto) 77.0 H Lymph % (Auto) 10.7 L [place] % (Auto) 10.6 H Eos % (Auto) 0.7 Baso % (Auto) 0.3 Absolute Neuts (auto) 11.4 H Absolute Lymphs (auto) 1.58 Nucleated RBC % 0 Differential Comment Sodium 142 Potassium 4.1 Chloride 111 H Carbon Dioxide 25.0 Anion Gap 6 BUN 14 Creatinine 0.76 Estim Creat Clear Calc 69.09 Est GFR (MDRD) Af Amer 98 Est GFR (MDRD) Non-Af 81 BUN/Creatinine Ratio 18.4 Glucose 112 H Calcium 7.6 L Total Bilirubin AST ALT Alkaline Phosphatase Total Protein Albumin Globulin Albumin/Globulin Ratio POC Glucose 101 Blood Type Antibody Screen Crossmatch Medical Necessity - Tobacco Use Smoking Status: Current every day smoker Tobacco Use: Cigarettes Assessment/Plan All Active Problems Sigmoid diverticulitis (Acute) Failure of outpatient treatment (Acute) Altered mental status (Acute) Colitis (Acute) Constipation (Acute) Large bowel obstruction (Acute) RECOMMENDATIONS: 1. Aggressive pain control 2. Encourage incentive spirometer 3. Out of bed as tolerated 4. Wean oxygen as tolerated 5. Transfuse to keep hemoglobin greater than 8 6. Possibly transfer out of the intensive care unit later today pending clinical course IMPRESSIONS: 1. Severe sepsis secondary to peritonitis with fecal contamination secondary to sigmoid stricture Patient was significantly complicated surgical course. Patient has remai stacy hemodynamically stable overnight. However, patient has had an increase in WBC count. Bay was removed yesterday. Patient does not have a central line. Ostomy appears viable. Reinitiation of antibiotics per surgery. 2. Acute blood loss anemia Patient has been transfused 3 units of packed red blood cells thus far. This now appears to be stable. Continue to monitor. Keep hemoglobin greater than 8 given operative concerns. 3. Acute respiratory failure Patient appears to be doing well from a respiratory standpoint. Some conc law for high narcotic needs secondary to abdominal pain. Patient is doing well on minimal nasal cannula oxygen. Will need to follow patient closely given narcotics and hypoventilation. Clinical suspicion for significant atelectasis. Encourage incentive spirometer. 4. Metabolic encephalopathy Appears to be improved. Clinical suspicion for problem 1 as an etiology. Continue per delirium protocol. Would avoid Ativan if possible. Electrolytes and renal function appear to be within normal limits. Inpatient E&M: [id number] [facility] Hosp L3
--- NOTE | 2019-08-28 07:15 | PCM.PN.SRG ---
Patient Problems: Active and Suspected Problems Altered mental status (Acute) Colitis (Acute) Constipation (Acute) Large bowel obstruction (Acute) Subjective: Patient does not report any nausea or vomiting. Her abdomen is soft. She had no issues overnight. - Physical Exam Vitals/I&O's: Vital Signs Temp Pulse Resp BP Pulse Ox 97.4 F L 105 H 15 156/74 H 91 08/28/19 04:00 08/28/19 06:00 08/28/19 06:00 08/28/19 06:00 08/28/19 06:00 Oxygen Flow Rate (L/min) 3 Oxygen Delivery Method Nasal Cannula Weight: 174 lb 13.225 oz Body Mass Index (BMI) 27.8 Finger Stick Blood Glucose 86 Intake and Output for Last 24 Hours 08/26/19 08/27/19 08/28/19 23:59 23:59 23:59 Intake Total 2829.01 / 2917.59 2912.49 / 2912.49 100 / 100 Output Total 3375 / 3500 1085 / 1085 330 / 330 Balance -545.99 / -582.41 1827.49 / 1827.49 -230 / -230 General: Alert, Oriented x3 Lungs: Normal air movement Abdomen: Soft, Non-Distended, Tender - Appropriately tender to palpation at the incision, - - Stoma is pink with clear output Laboratory Results 08/27/19 22:55: POC Glucose 114 H 08/28/19 04:30: WBC 14.8 H, RBC 3.60 L, Hgb 10.1 L, Hct 31.1 L, MCV 86.4, MCH 28.1, MCHC 32.5, RDW Std Deviation 51.2 H, RDW Coeff of [place] 16.0 H, Plt Count 282, MPV 9.1, Immature Gran % (Auto) 0.700, Neut % (Auto) 77.0 H, Lymph % (Auto) 10.7 L, [place] % (Auto) 10.6 H, Eos % (Auto) 0.7, Baso % (Auto) 0.3, Absolute Neuts (auto) 11.4 H, Absolute Lymphs (auto) 1.58, Nucleated RBC % 0, Differential Comment 08/28/19 04:30: Sodium 142, Potassium 4.1, Chloride 111 H, Carbon Dioxide 25.0, Anion Gap 6, BUN 14, Creatinine 0.76, Estim Creat Clear Calc 69.09, Est GFR (MDRD) Af Amer 98, Est GFR (MDRD) Non-Af 81, BUN/Creatinine Ratio 18.4, Glucose 112 H, Calcium 7.6 L 08/28/19 05:06: POC Glucose 101 Current Medications Atorvastatin Calcium (Lipitor) 80 mg PO QHS [facility] Last Admin: 08/27/19 21:02 Dose: Not Given Documented by: Chlorhexidine Gluconate () 1 each TOPICAL DAILY [facility] Last Admin: 08/27/19 14:09 Dose: 1 each Documented by: Enoxaparin Sodium (Lovenox) 40 mg SC DAILY [facility] Last Admin: 08/27/19 10:12 Dose: 40 mg Documented by: Hydromorphone HCl (Dilaudid Inj) 0.5 mg IV Q3H PRN PRN PRN Reason: pain 6-04/01 Last Admin: 08/28/19 05:08 Dose: 0.5 mg Documented by: Sodium Chloride () 250 mls @ 15 mls/hr IV .[id number] PRN PRN Reason: Saline Flush Sodium Chloride () 250 mls @ 15 mls/hr IV .[id number] PRN PRN Reason: Additional IVPB Infusion Pantoprazole Sodium 40 mg/ (Sodium Chloride) 110 mls @ 330 mls/hr IV Q12 [facility] Last Infusion: 08/27/19 21:38 Dose: Infused Documented by: Sodium Chloride () 500 mls @ 15 mls/hr IV PRN PRN PRN Reason: Blood Transfusion Potassium Chloride/Sodium Chloride () 1,000 mls @ 70 mls/hr IV .[id number] [facility] Last Infusion: 08/27/19 23:26 Dose: 70 mls/hr Documented by: Insulin Human Lispro (Humalog Kwikpen (Bkc)) 0 unit SC Q6 [facility]; Protocol Last Admin: 08/28/19 05:16 Dose: Not Given Documented by: Melatonin (Melatonin) 3 mg PO QHS PRN PRN PRN Reason: INSOMNIA Ondansetron HCl (Zofran) 4 mg IV Q8H PRN PRN PRN Reason: NAUSEA/VOMITING Last Admin: 08/25/19 15:48 Dose: 4 mg Documented by: Sodium Chloride () 10 - 40 ml IV UD PRN PRN Reason: SALINE FLUSH Last Admin: 08/28/19 05:08 Dose: 10 ml Documented by: Medical Necessity - Tobacco Use Smoking Status: Current every day smoker Tobacco Use: Cigarettes Assessment/Plan All Active Problems Sigmoid diverticulitis (Acute) Failure of outpatient treatment (Acute) Altered mental status (Acute) Colitis (Acute) Constipation (Acute) Large bowel obstruction (Acute) 64-year-old female with colonic obstruction due to sigmoid stricture status post left hemicolectomy with end colostomy 1. Patient's white count increased today. Vitals are stable. Resume Zosyn. 2. NG output was minimal. I will remove the NG but keep her on ice chips until there is more substantial output from the stoma. Encourage out of bed ambulation. Wound VAC is in place on the incision. 3. Urine output was borderline. Continue to monitor I's and O's strictly. Clark Lomax MD Pager: [facility] [address] [place] [address], [address] [place] [phone] Office:
--- NOTE | 2019-08-28 09:39 | CM.UR ---
Participated in interdisciplinary rounds. patient has a wound vac and a new ostomy. Is still requiring O2 per NC. Resp reinforced to use incentive spirometer and to take deep breaths to prevent pneumonia and to help get off the o2. Physical therapy did work with patient yesterday but only went a few feet. therapy will see patient again today. She was encouraged to try to move around more. Pain medication is scheduled. Current plan is home with [facility]. Case management will continue to follow patient. Jesús Murillo RN,CCM.
[2019-08-28] MEDS: Enoxaparin 40 MG/0.4 ML Syringe SC (09:55)
--- NOTE | 2019-08-28 11:49 | PN_ITS ---
Patient Problems: Active and Suspected Problems Altered mental status (Acute) Colitis (Acute) Constipation (Acute) Large bowel obstruction (Acute) Reason for Visit: Feels better. NG removed. Still with abdominal pain, but helped with medications. Vitals/I&O's: Vital Signs Temp Pulse Resp BP Pulse Ox 36.6 C 100 22 H 144/73 H 93 08/28/19 08:00 08/28/19 10:00 08/28/19 10:00 08/28/19 10:00 08/28/19 09:35 Oxygen Flow Rate (L/min) 3 Oxygen Delivery Method Nasal Cannula Weight: 79.3 kg Body Mass Index (BMI) 27.8 Finger Stick Blood Glucose 86 Intake and Output for Last 24 Hours 08/26/19 08/27/19 08/28/19 23:59 23:59 23:59 Intake Total 2829.01 / 2917.59 2912.49 / 2912.49 825.67 / 825.67 Output Total 3375 / 3500 1085 / 1085 330 / 330 Balance -545.99 / -582.41 1827.49 / 1827.49 495.67 / 495.67 General: Alert, No apparent distress, - - up in chair. afebrile. HEENT: Atraumatic, Normocephalic Oral: Moist Mucosa, No Gingival or Mucosal Lesions/ Ulcerations Neck: No Nodes, Trachea Midline Lungs: Clear to auscultation, Normal air movement, No rhonchi, No wheeze, No rales Cardiovascular: Regular rate, Regular Rhythm, Normal S1, Normal S2, No murmurs Abdomen: - - distended. TTP. ostomy in LLQ. wound vac in place. Extremities: No edema, No Calf Tenderness Skin: No rashes, No breakdown Psych/Mental Status: Normal Affect, Appropriate Laboratory Results 08/27/19 22:55: POC Glucose 114 H 08/28/19 04:30: WBC 14.8 H, RBC 3.60 L, Hgb 10.1 L, Hct 31.1 L, MCV 86.4, MCH 28.1, MCHC 32.5, RDW Std Deviation 51.2 H, RDW Coeff of [place] 16.0 H, Plt Count 282, MPV 9.1, Immature Gran % (Auto) 0.700, Neut % (Auto) 77.0 H, Lymph % (Auto) 10.7 L, [place] % (Auto) 10.6 H, Eos % (Auto) 0.7, Baso % (Auto) 0.3, Absolute Neuts (auto) 11.4 H, Absolute Lymphs (auto) 1.58, Nucleated RBC % 0, Differential Comment 08/28/19 04:30: Sodium 142, Potassium 4.1, Chloride 111 H, Carbon Dioxide 25.0, Anion Gap 6, BUN 14, Creatinine 0.76, Estim Creat Clear Calc 69.09, Est GFR (MDRD) Af Amer 98, Est GFR (MDRD) Non-Af 81, BUN/Creatinine Ratio 18.4, Glucose 112 H, Calcium 7.6 L 08/28/19 05:06: POC Glucose 101 Current Medications Atorvastatin Calcium (Lipitor) 80 mg PO QHS [facility] Last Admin: 08/27/19 21:02 Dose: Not Given Documented by: Chlorhexidine Gluconate () 1 each TOPICAL DAILY [facility] Last Admin: 08/28/19 11:24 Dose: Not Given Documented by: Enoxaparin Sodium (Lovenox) 40 mg SC DAILY [facility] Last Admin: 08/28/19 09:55 Dose: 40 mg Documented by: Hydromorphone HCl (Dilaudid Inj) 0.5 mg IV Q3H PRN PRN PRN Reason: pain 6-04/01 Last Admin: 08/28/19 09:48 Dose: 0.5 mg Documented by: Sodium Chloride () 250 mls @ 15 mls/hr IV .[id number] PRN PRN Reason: Saline Flush Sodium Chloride () 250 mls @ 15 mls/hr IV .[id number] PRN PRN Reason: Additional IVPB Infusion Pantoprazole Sodium 40 mg/ (Sodium Chloride) 110 mls @ 330 mls/hr IV Q12 [facility] Last Admin: 08/28/19 09:51 Dose: 330 mls/hr Documented by: Sodium Chloride () 500 mls @ 15 mls/hr IV PRN PRN PRN Reason: Blood Transfusion Potassium Chloride/Sodium Chloride () 1,000 mls @ 70 mls/hr IV .[id number] [facility] Last Admin: 08/28/19 09:48 Dose: 70 mls/hr Documented by: Piperacillin Sod/Tazobactam (Sod 3.375 gm/ Sodium Chloride) 50 mls @ 12.5 mls/hr IV Q8 [facility] Last Admin: 08/28/19 09:24 Dose: 12.5 mls/hr Documented by: Insulin Human Lispro (Humalog Cherriepen (Bkc)) 0 unit SC Q6 [facility]; Protocol Last Admin: 08/28/19 05:16 Dose: Not Given Documented by: Melatonin (Melatonin) 3 mg PO QHS PRN PRN PRN Reason: INSOMNIA Ondansetron HCl (Zofran) 4 mg IV Q8H PRN PRN PRN Reason: NAUSEA/VOMITING Last Admin: 08/25/19 15:48 Dose: 4 mg Documented by: Sodium Chloride () 10 - 40 ml IV UD PRN PRN Reason: SALINE FLUSH Last Admin: 08/28/19 05:08 Dose: 10 ml Documented by: STROKE Vital Signs/Narrative: Vital Signs Temp Pulse Resp BP Pulse Ox 08/28/19 10:00 100 22 H 144/73 H 08/28/19 09:35 93 08/28/19 09:00 93 21 H 156/66 H 08/28/19 08:00 36.6 C 89 18 131/74 H 94 Medical Necessity - Tobacco Use Smoking Status: Current every day smoker Tobacco Use: Cigarettes Assessment/Plan All Active Problems Sigmoid diverticulitis (Acute) Failure of outpatient treatment (Acute) Altered mental status (Acute) Colitis (Acute) Constipation (Acute) Large bowel obstruction (Acute) 1. Sigmoid stricture * Loop transverse colostomy on 08/24 * ex lap with extensive ALPESH and left colectomy w Hardeep procedure and end transverse colostomy on 08/25 * some spillage around then colon with surgery on 08/24 * now on pip/tazo 2. Acute sigmoid colitis.: * ruled out 3. metabolic encephalopathy * Likely metabolic from above. MRI negative for CVA. * resolved 4. Acute blood loss anemia * transfused 4 units PRBCs, now up to 10.1 * monitor, no need for additional units at this time. 5. acute respiratory failure: * post operative. possible pneumonia. * on vent. CCM on consult. * extubated on 08/26 6. VTE prophylaxis: high risk. SCDs. hold enoxaparin for now given surgery and ABLA. 7. Dysphagia: chronic. has had dilations w dr. short. unclear if strictures. check records from his office. DW patient's son at bedside. Inpatient E&M: [id number] Subs Hosp L2
[2019-08-28 12:16] LABS: Bedside Glucose 97 mg/dL (70-110)
--- NOTE | 2019-08-28 17:07 | NURSING ---
report called to pcu transferred per chair with belongings to room 114
[2019-08-28 21:01] LABS: Bedside Glucose 84 mg/dL (70-110)
--- NOTE | 2019-08-28 21:20 | NURSING ---
RN ATTEMPTED TO GET PATIENT TO GET UP AND WALK IN HALLWAY. A LOT OF ENCOURAGEMENT NEED, PATIENT ONLY ABLE TO MAKE IT A COUPLE OF STEPS. STATES SHE IS TOO WEAK TO TRY. EDUCATED PATIENT ABOUT IMPORTANCE OF GETTING UP AND MOVING AFTER SURGERY. VERBALIZED UNDERSTANDING.
[2019-08-29] VITALS (14 sets, daily range): BP systolic 143–166; BP diastolic 74–95; PULSE 82–102; RESP 18–20; TEMP 36.3–37; O2SAT 93–97
[2019-08-29] MEDS: Ondansetron 4 MG/2 ML Vial IV ×2 (00:16→09:15)
[2019-08-29] MEDS: 0.9% Saline Lock 10 ML Syringe IV ×8 (00:17→23:58)
[2019-08-29] MEDS: HYDROmorphone 0.5 MG/0.5 ML SYRINGE IV ×7 (00:28→23:58)
[2019-08-29 00:46] LABS: Bedside Glucose 86 mg/dL (70-110)
[2019-08-29 05:01] LABS: Bedside Glucose 100 mg/dL (70-110)
[2019-08-29 06:36] LABS: Absolute Lymphocyte Count 0.94 X10^3/uL (0.83-4.51); Absolute Neutrophil Count 16.5 X10^3/uL (2.0-7.7); Basophil# 0.04 X10^3/uL; Basophil% 0.2 % (0-1); Eosinophil# 0.02 X10^3/uL; Eosinophils% 0.1 % (0-5); Hematocrit 32.1 % (37-47); Lymphocyte # 0.94 X10^3/ul (4.0); Mean Corp Hgb Conc 31.2 g/dL (32-36); Mean Corpuscular Hgb 27.2 pg (27.0-32.0); Mean Corpuscular Volume 87.5 fL (81-99); Mean Platelet Vol. 9.5 fl (6.2-12.0); Monocyte# 1.19 X10^3/uL; Monocyte% 6.3 % (0-10); NRBC Flagged by Analyzer 0 % (0-5); Neutrophil # 16.54 X10^3/uL (2.7-7.7); Neutrophil % 87.2 % (47-70); Platelet Count 361 K/mm3 (150-450); RBC Distribution Width CV 16.6 % (11.6-14.6); RBC Distribution Width SD 53.1 fl (35.1-43.9); Red Blood Count 3.67 M/mm3 (4.2-5.4)
[2019-08-29 06:50] LABS: Anion Gap 12 (5-15); BUN 14 mg/dL (7-18); BUN/Creat Ratio 21.1 RATIO (10-20); Calcium,Total 7.9 mg/dL (8.5-10.1); Chloride 112 mmol/L (98-107); Creatinine, Serum 0.66 mg/dL (0.55-1.02); EST Glomerular Filtration Rate 95 mL/min (>60); Est Glom Filt Rate - Afr Amer 115 mL/min (>60); Estimated Creatinine Clearance 79.55 ml/min; Glucose 101 mg/dL (74-106); Sodium Level 144 mmol/L (136-145)
[2019-08-29] MEDS: Enoxaparin 40 MG/0.4 ML Syringe SC (09:20)
--- NOTE | 2019-08-29 09:23 | PN.SURG_ITS ---
Patient Problems: Active and Suspected Problems Altered mental status (Acute) Colitis (Acute) Constipation (Acute) Large bowel obstruction (Acute) Subjective: She is complaining of a lot of abdominal pain but no nausea or vomiting. - Physical Exam Vitals/I&O's: Vital Signs Temp Pulse Resp BP Pulse Ox 97.7 F L 87 18 164/88 H 93 08/29/19 08:01 08/29/19 08:01 08/29/19 08:01 08/29/19 08:01 08/29/19 08:01 Oxygen Flow Rate (L/min) 3 Oxygen Delivery Method Nasal Cannula Weight: 175 lb 0.752 oz Body Mass Index (BMI) 27.8 Finger Stick Blood Glucose 86 Intake and Output for Last 24 Hours 08/27/19 08/28/19 08/30/19 23:59 23:59 00:59 Intake Total 2912.49 / 2912.49 2233.83 / 2463.83 408.25 / 408.25 Output Total 1085 / 1085 680 / 880 350 / 350 Balance 1827.49 / 1827.49 1553.83 / 1583.83 58.25 / 58.25 General: Alert, Oriented x3 Neck: No JVD Cardiovascular: Regular rate, Regular Rhythm Abdomen: Soft, Non-Distended, Tender Laboratory Results 08/28/19 12:13: POC Glucose 97 08/28/19 18:10: POC Glucose 84 08/29/19 00:14: POC Glucose 86 08/29/19 04:43: POC Glucose 100 08/29/19 05:23: WBC 19.0 H, RBC 3.67 L, Hgb 10.0 L, Hct 32.1 L, MCV 87.5, MCH 27.2, MCHC 31.2 L, RDW Std Deviation 53.1 H, RDW Coeff of [place] 16.6 H, Plt Count 361, MPV 9.5, Immature Gran % (Auto) 1.200 H, Neut % (Auto) 87.2 H, Lymph % (Auto) 5.0 L, [place] % (Auto) 6.3, Eos % (Auto) 0.1, Baso % (Auto) 0.2, Absolute Neuts (auto) 16.5 H, Absolute Lymphs (auto) 0.94, Nucleated RBC % 0 08/29/19 05:23: Sodium 144, Potassium 4.0, Chloride 112 H, Carbon Dioxide 20.0 L , Anion Gap 12, BUN 14, Creatinine 0.66, Estim Creat Clear Calc 79.55, Est GFR (MDRD) Af Amer 115, Est GFR (MDRD) Non-Af 95, BUN/Creatinine Ratio 21.1 H, Glucose 101, Calcium 7.9 L Current Medications Atorvastatin Calcium (Lipitor) 80 mg PO QHS [facility] Last Admin: 08/28/19 19:40 Dose: Not Given Documented by: Chlorhexidine Gluconate () 1 each TOPICAL DAILY [facility] Last Admin: 08/29/19 09:17 Dose: Not Given Documented by: Enoxaparin Sodium (Lovenox) 40 mg SC DAILY [facility] Last Admin: 08/29/19 09:20 Dose: 40 mg Documented by: Hydromorphone HCl (Dilaudid Inj) 0.5 mg IV Q3H PRN PRN PRN Reason: pain 6-04/01 Last Admin: 08/29/19 07:59 Dose: 0.5 mg Documented by: Sodium Chloride () 250 mls @ 15 mls/hr IV .[id number] PRN PRN Reason: Saline Flush Last Infusion: 08/29/19 07:00 Dose: 0 mls/hr Documented by: Sodium Chloride () 250 mls @ 15 mls/hr IV .[id number] PRN PRN Reason: Additional IVPB Infusion Pantoprazole Sodium 40 mg/ (Sodium Chloride) 110 mls @ 330 mls/hr IV Q12 [facility] Last Infusion: 08/28/19 22:08 Dose: Infused Documented by: Sodium Chloride () 500 mls @ 15 mls/hr IV PRN PRN PRN Reason: Blood Transfusion Potassium Chloride/Sodium Chloride () 1,000 mls @ 70 mls/hr IV .[id number] [facility] Last Infusion: 08/28/19 23:55 Dose: 70 mls/hr Documented by: Piperacillin Sod/Tazobactam (Sod 3.375 gm/ Sodium Chloride) 50 mls @ 12.5 mls/hr IV Q8 [facility] Last Admin: 08/29/19 05:31 Dose: 12.5 mls/hr Documented by: Insulin Human Lispro (Humalog Cherriepen (Bkc)) 0 unit SC Q6 [facility]; Protocol Last Admin: 08/29/19 04:43 Dose: Not Given Documented by: Melatonin (Melatonin) 3 mg PO QHS PRN PRN PRN Reason: INSOMNIA Ondansetron HCl (Zofran) 4 mg IV Q8H PRN PRN PRN Reason: NAUSEA/VOMITING Last Admin: 08/29/19 09:15 Dose: 4 mg Documented by: Sodium Chloride () 10 - 40 ml IV UD PRN PRN Reason: SALINE FLUSH Last Admin: 08/29/19 08:00 Dose: 10 ml Documented by: Medical Necessity - Tobacco Use Smoking Status: Current every day smoker Tobacco Use: Cigarettes Assessment/Plan All Active Problems Sigmoid diverticulitis (Acute) Failure of outpatient treatment (Acute) Altered mental status (Acute) Colitis (Acute) Constipation (Acute) Large bowel obstruction (Acute) 64-year-old female status post left hemicolectomy for colonic obstruction due to diverticular stricture 1. The patient is having abdominal pain but her vital signs are stable. Her stoma is pink with there is no gas or stool in her colostomy bag yet. She is not having any nausea or vomiting so I will continue n.p.o. diet. She has a wound VAC over her incision. Her white count continues to be elevated. There is no purulent drainage in the wound VAC. She may be having a pneumonia as she says she is coughing. I will order a two-view chest x-ray. If white count continues to rise tomorrow despite antibiotics I will order a CT scan. Clark Lomax MD Pager: [facility] [address] [place] [address], [address] [place] [address] Office:
--- NOTE | 2019-08-29 09:24 | RAD_ITS ---
STUDY: X-RAY CHEST REASON FOR EXAM: Female, 64 years old. LEUKOCYTOSIS TECHNIQUE: AP COMPARISON: 08/25/2019 FINDINGS: Endotracheal and enteric tubes have been removed. Patchy groundglass opacities along the periphery of the mid and lower lungs since the prior study. There is no demonstrated pleural abnormality. Normal size heart. Normal mediastinum and rai. Normal visualized pulmonary arteries. There is atherosclerotic calcification of the aortic arch with tortuosity. No acute bony process. There is no demonstrated abnormality of the visualized soft tissue structures of the upper abdomen. RAD/Chest PA and Lateral IMPRESSION: 1. Developing bilateral infiltrates suggesting edema or pneumonia. Electronically Signed: Helder Elizalde MD ([place]) at 14:20 EDT , Service support ,
--- NOTE | 2019-08-29 09:51 | PN_ITS ---
Patient Problems: Active and Suspected Problems Altered mental status (Acute) Colitis (Acute) Constipation (Acute) Large bowel obstruction (Acute) Subjective: Patient transferred out of the intensive care unit yesterday. Patient continues to report abdominal pain, but overall feels subjectively improved compared to previous. Patient is still requiring minimal nasal cannula oxygen. Patient does report coughing with deep inhalation. - Physical Exam Vitals/I&O's: Vital Signs Temp Pulse Resp BP Pulse Ox 36.5 C L 87 18 164/88 H 93 08/29/19 08:01 08/29/19 08:01 08/29/19 08:01 08/29/19 08:01 08/29/19 08:01 Oxygen Flow Rate (L/min) 3 Oxygen Delivery Method Nasal Cannula Weight: 79.4 kg Body Mass Index (BMI) 27.8 Finger Stick Blood Glucose 86 Intake and Output for Last 24 Hours 08/27/19 08/28/19 08/30/19 23:59 23:59 00:59 Intake Total 2912.49 / 2912.49 2233.83 / 2463.83 408.25 / 408.25 Output Total 1085 / 1085 680 / 880 350 / 350 Balance 1827.49 / 1827.49 1553.83 / 1583.83 58.25 / 58.25 General: Alert, Oriented x3, Cooperative, - - Mild distress with any movement HEENT: Atraumatic, PERRLA, EOMI, Normocephalic, - - No scleral icterus or injection noted Oral: Moist Mucosa, No Gingival or Mucosal Lesions/ Ulcerations Neck: Supple, No JVD, No Nodes, Trachea Midline Lungs: No rhonchi, No wheeze, Diminished, Rales - Posterior bases, - - Symmetric expansion. Cardiovascular: Normal S1, Normal S2, No murmurs, No rub noted, No Gallop, Tac hycardic Abdomen: Bowel Sounds Present, Soft, Distended - Slightly, Tender Extremities: No clubbing, No cyanosis, Edema Skin: No rashes, No breakdown, Incision - Clean, dry and intact Musculoskeletal: No Tenderness to Palpation of Joints or Extremities Lymphatic: No Cervical, Supraclavicular, or Inguinal Adenopathy Neurological: Cranial nerves II-XII grossly intact, Neuro grossly intact, Motor Exam 5/5 strength throughout Psych/Mental Status: Anxious, Restless Laboratory Results 08/28/19 12:13: POC Glucose 97 08/28/19 18:10: POC Glucose 84 08/29/19 00:14: POC Glucose 86 08/29/19 04:43: POC Glucose 100 08/29/19 05:23: WBC 19.0 H, RBC 3.67 L, Hgb 10.0 L, Hct 32.1 L, MCV 87.5, MCH 27.2, MCHC 31.2 L, RDW Std Deviation 53.1 H, RDW Coeff of [place] 16.6 H, Plt Count 361, MPV 9.5, Immature Gran % (Auto) 1.200 H, Neut % (Auto) 87.2 H, Lymph % (Auto) 5.0 L, [place] % (Auto) 6.3, Eos % (Auto) 0.1, Baso % (Auto) 0.2, Absolute Neuts (auto) 16.5 H, Absolute Lymphs (auto) 0.94, Nucleated RBC % 0 08/29/19 05:23: Sodium 144, Potassium 4.0, Chloride 112 H, Carbon Dioxide 20.0 L , Anion Gap 12, BUN 14, Creatinine 0.66, Estim Creat Clear Calc 79.55, Est GFR (MDRD) Af Amer 115, Est GFR (MDRD) Non-Af 95, BUN/Creatinine Ratio 21.1 H, Glucose 101, Calcium 7.9 L Current Medications Atorvastatin Calcium (Lipitor) 80 mg PO QHS [facility] Last Admin: 08/28/19 19:40 Dose: Not Given Documented by: Chlorhexidine Gluconate () 1 each TOPICAL DAILY [facility] Last Admin: 08/29/19 09:17 Dose: Not Given Documented by: Enoxaparin Sodium (Lovenox) 40 mg SC DAILY [facility] Last Admin: 08/29/19 09:20 Dose: 40 mg Documented by: Hydromorphone HCl (Dilaudid Inj) 0.5 mg IV Q3H PRN PRN PRN Reason: pain 6-1010 Last Admin: 08/29/19 07:59 Dose: 0.5 mg Documented by: Sodium Chloride () 250 mls @ 15 mls/hr IV .[id number] PRN PRN Reason: Saline Flush Last Infusion: 08/29/19 07:00 Dose: 0 mls/hr Documented by: Sodium Chloride () 250 mls @ 15 mls/hr IV .[id number] PRN PRN Reason: Additional IVPB Infusion Pantoprazole Sodium 40 mg/ (Sodium Chloride) 110 mls @ 330 mls/hr IV Q12 [facility] Last Infusion: 08/28/19 22:08 Dose: Infused Documented by: Sodium Chloride () 500 mls @ 15 mls/hr IV PRN PRN PRN Reason: Blood Transfusion Potassium Chloride/Sodium Chloride () 1,000 mls @ 70 mls/hr IV .[id number] [facility] Last Infusion: 08/28/19 23:55 Dose: 70 mls/hr Documented by: Piperacillin Sod/Tazobactam (Sod 3.375 gm/ Sodium Chloride) 50 mls @ 12.5 mls/hr IV Q8 [facility] Last Admin: 08/29/19 05:31 Dose: 12.5 mls/hr Documented by: Insulin Human Lispro (Humalog Kwikpen (Bkc)) 0 unit SC Q6 [facility]; Protocol Last Admin: 08/29/19 04:43 Dose: Not Given Documented by: Melatonin (Melatonin) 3 mg PO QHS PRN PRN PRN Reason: INSOMNIA Ondansetron HCl (Zofran) 4 mg IV Q8H PRN PRN PRN Reason: NAUSEA/VOMITING Last Admin: 08/29/19 09:15 Dose: 4 mg Documented by: Sodium Chloride () 10 - 40 ml IV UD PRN PRN Reason: SALINE FLUSH Last Admin: 08/29/19 08:00 Dose: 10 ml Documented by: Medical Necessity - Tobacco Use Smoking Status: Current every day smoker Tobacco Use: Cigarettes Assessment/Plan All Active Problems Sigmoid diverticulitis (Acute) Failure of outpatient treatment (Acute) Altered mental status (Acute) Colitis (Acute) Constipation (Acute) Large bowel obstruction (Acute) RECOMMENDATIONS: 1. Aggressive pain control 2. Encourage incentive spirometer 3. Out of bed as tolerated 4. Wean oxygen as tolerated 5. Transfuse to keep hemoglobin greater than 8 IMPRESSIONS: 1. Severe sepsis secondary to peritonitis with fecal contamination secondary to sigmoid stricture Patient was significantly complicated surgical course. Patient has remained hemodynamically stable overnight. However, patient has had an increase in WBC count. Bay was removed and patient does not have a central line. Ostomy appears viable. Antibiotics reinitiated yesterday, so we will continue to monitor 2. Acute blood loss anemia Patient has been transfused 3 units of packed red blood cells thus far. This now appears to be stable. Continue to monitor. Keep hemoglobin greater than 8 given operative concerns. Hemoglobin appears stable at this time. 3. Acute respiratory failure Patient appears to be doing well from a respiratory standpoint. Some concern for high narcotic needs secondary to abdominal pain. Patient is doing well on minimal nasal cannula oxygen. Will need to follow patient closely given narcotics and hypoventilation. Clinical suspicion for significant atelectasis. Encourage incentive spirometer. 4. Metabolic encephalopathy Appears to be improved. Clinical suspicion for problem 1 as an etiology. Continue per delirium protocol. Would avoid Ativan if possible. Electrolytes and renal function appear to be within normal limits. Inpatient E&M: [id number] [facility] Hosp L2
[2019-08-29 12:25] LABS: Bedside Glucose 105 mg/dL (70-110)
[2019-08-29] MEDS: proCHLORPERazine 10 MG/2 ML Vial IV ×2 (13:14→23:58)
--- NOTE | 2019-08-29 14:51 | PCM.PN.HOSP ---
Patient Problems: Active and Suspected Problems Altered mental status (Acute) Colitis (Acute) Constipation (Acute) Large bowel obstruction (Acute) Reason for Visit: nausea and vomiting Vitals/I&O's: Vital Signs Temp Pulse Resp BP Pulse Ox 36.3 C L 86 20 H 166/88 H 97 08/29/19 11:53 08/29/19 11:53 08/29/19 11:53 08/29/19 11:53 08/29/19 12:12 Oxygen Flow Rate (L/min) 3 Oxygen Delivery Method Nasal Cannula Weight: 79.4 kg Body Mass Index (BMI) 27.8 Finger Stick Blood Glucose 86 Intake and Output for Last 24 Hours 08/27/19 08/28/19 08/30/19 23:59 23:59 00:59 Intake Total 2912.49 / 2912.49 2233.83 / 2463.83 588.25 / 588.25 Output Total 1085 / 1085 680 / 880 630 / 630 Balance 1827.49 / 1827.49 1553.83 / 1583.83 -41.75 / -41.75 General: Alert, No apparent distress HEENT: Atraumatic, Normocephalic Oral: Moist Mucosa, No Gingival or Mucosal Lesions/ Ulcerations Neck: No Nodes, Thyroid Normal Size and Texture Lungs: Normal air movement, - - coarse breath sounds bilterally Cardiovascular: Regular rate, Regular Rhythm, Normal S1, Normal S2 Psych/Mental Status: Normal Affect, Appropriate Laboratory Results 08/28/19 18:10: POC Glucose 84 08/29/19 00:14: POC Glucose 86 08/29/19 04:43: POC Glucose 100 08/29/19 05:23: WBC 19.0 H, RBC 3.67 L, Hgb 10.0 L, Hct 32.1 L, MCV 87.5, MCH 27.2, MCHC 31.2 L, RDW Std Deviation 53.1 H, RDW Coeff of Wilmar 16.6 H, Plt Count 361, MPV 9.5, Immature Gran % (Auto) 1.200 H, Neut % (Auto) 87.2 H, Lymph % (Auto) 5.0 L, [place] % (Auto) 6.3, Eos % (Auto) 0.1, Baso % (Auto) 0.2, Absolute Neuts (auto) 16.5 H, Absolute Lymphs (auto) 0.94, Nucleated RBC % 0 08/29/19 05:23: Sodium 144, Potassium 4.0, Chloride 112 H, Carbon Dioxide 20.0 L, Anion Gap 12, BUN 14, Creatinine 0.66, Estim Creat Clear Calc 79.55, Est GFR (MDRD) Af Amer 115, Est GFR (MDRD) Non-Af 95, BUN/Creatinine Ratio 21.1 H, Glucose 101, Calcium 7.9 L 08/29/19 12:01: POC Glucose 105 Current Medications Atorvastatin Calcium (Lipitor) 80 mg PO QHS [facility] Last Admin: 08/28/19 19:40 Dose: Not Given Documented by: Chlorhexidine Gluconate () 1 each TOPICAL DAILY [facility] Last Admin: 08/29/19 09:17 Dose: Not Given Documented by: Enoxaparin Sodium (Lovenox) 40 mg SC DAILY [facility] Last Admin: 08/29/19 09:20 Dose: 40 mg Documented by: Hydromorphone HCl (Dilaudid Inj) 0.5 mg IV Q3H PRN PRN PRN Reason: pain 6-04/01 Last Admin: 08/29/19 11:54 Dose: 0.5 mg Documented by: Sodium Chloride () 250 mls @ 15 mls/hr IV .[id number] PRN PRN Reason: Saline Flush Last Infusion: 08/29/19 07:00 Dose: 0 mls/hr Documented by: Sodium Chloride () 250 mls @ 15 mls/hr IV .[id number] PRN PRN Reason: Additional IVPB Infusion Pantoprazole Sodium 40 mg/ (Sodium Chloride) 110 mls @ 330 mls/hr IV Q12 [facility] Last Infusion: 08/29/19 12:01 Dose: Infused Documented by: Sodium Chloride () 500 mls @ 15 mls/hr IV PRN PRN PRN Reason: Blood Transfusion Potassium Chloride/Sodium Chloride () 1,000 mls @ 70 mls/hr IV .[id number] [facility] Last Infusion: 08/28/19 23:55 Dose: 70 mls/hr Documented by: Piperacillin Sod/Tazobactam (Sod 3.375 gm/ Sodium Chloride) 50 mls @ 12.5 mls/hr IV Q8 [facility] Last Admin: 08/29/19 13:14 Dose: 12.5 mls/hr Documented by: Insulin Human Lispro (Humalog Kwikpen (Bkc)) 0 unit SC Q6 [facility]; Protocol Last Admin: 08/29/19 12:01 Dose: Not Given Documented by: Melatonin (Melatonin) 3 mg PO QHS PRN PRN PRN Reason: INSOMNIA Ondansetron HCl (Zofran) 4 mg IV Q8H PRN PRN PRN Reason: NAUSEA/VOMITING Last Admin: 08/29/19 09:15 Dose: 4 mg Documented by: Prochlorperazine Edisylate (Compazine Iv) 10 mg IV Q4H PRN PRN PRN Reason: NAUSEA/VOMITING Last Admin: 08/29/19 13:14 Dose: 10 mg Documented by: Sodium Chloride () 10 - 40 ml IV UD PRN PRN Reason: SALINE FLUSH Last Admin: 08/29/19 13:15 Dose: 10 ml Documented by: STROKE Vital Signs/Narrative: Vital Signs Temp Pulse Resp BP Pulse Ox 08/29/19 12:12 97 08/29/19 11:53 36.3 C L 86 20 H 166/88 H 97 08/29/19 11:04 86 Medical Necessity - Tobacco Use Smoking Status: Current every day smoker Tobacco Use: Cigarettes Assessment/Plan All Active Problems Sigmoid diverticulitis (Acute) Failure of outpatient treatment (Acute) Altered mental status (Acute) Colitis (Acute) Constipation (Acute) Large bowel obstruction (Acute) 1. Sigmoid stricture Loop transverse colostomy on 08/24 ex lap with extensive ALPESH and left colectomy w Hardeep procedure and end transverse colostomy on 08/25 some spillage around then colon with surgery on 08/24 now on pip/tazo 2. Acute sigmoid colitis.: ruled out 3. metabolic encephalopathy Likely metabolic from above. MRI negative for CVA. resolved 4. Acute blood loss anemia transfused 4 units PRBCs, now up to 10 monitor, no need for additional units at this time. 5. acute respiratory failure: post operative. possible pneumonia. on vent. CCM on consult. extubated on 08/26 6. VTE prophylaxis: high risk. SCDs. hold enoxaparin for now given surgery and ABLA. 7. Dysphagia: chronic. has had dilations w dr. short. unclear if strictures. check records from his office. DW patient's son at bedside. Inpatient E&M: 22521 Subs Hosp L2
[2019-08-29 17:51] LABS: Bedside Glucose 88 mg/dL (70-110)
[2019-08-29 23:22] LABS: Magnesium 2.1 mg/dL (1.6-2.6)
[2019-08-30] VITALS (11 sets, daily range): BP systolic 113–161; BP diastolic 53–76; PULSE 83–99; RESP 16–20; TEMP 36.6–36.9; O2SAT 91–95
[2019-08-30 00:15] LABS: Bedside Glucose 92 mg/dL (70-110)
[2019-08-30 06:30] LABS: Absolute Lymphocyte Count 1.11 X10^3/uL (0.83-4.51); Absolute Neutrophil Count 15.3 X10^3/uL (2.0-7.7); Basophil# 0.04 X10^3/uL; Basophil% 0.2 % (0-1); Eosinophil# 0.01 X10^3/uL; Eosinophils% 0.1 % (0-5); Hematocrit 28.2 % (37-47); Hemoglobin 8.8 g/dL (12.0-15.0); Lymphocyte # 1.11 X10^3/ul (4.0); Lymphocyte % 6.1 % (19-41); Mean Corp Hgb Conc 31.2 g/dL (32-36); Mean Corpuscular Hgb 27.2 pg (27.0-32.0); Mean Corpuscular Volume 87.3 fL (81-99); Mean Platelet Vol. 9.4 fl (6.2-12.0); Monocyte# 1.55 X10^3/uL; Monocyte% 8.5 % (0-10); NRBC Flagged by Analyzer 0 % (0-5); Neutrophil # 15.32 X10^3/uL (2.7-7.7); Neutrophil % 83.6 % (47-70); POSITIVE DIFFERENTIAL YES; Platelet Count 441 K/mm3 (150-450); Red Blood Count 3.23 M/mm3 (4.2-5.4); White Blood Count 18.3 K/mm3 (4.4-11.0)
[2019-08-30 06:35] LABS: Differential Indicated SCAN CRITERIA MET
[2019-08-30] MEDS: 0.9% Saline Lock 10 ML Syringe IV (06:37)
[2019-08-30] MEDS: HYDROmorphone 0.5 MG/0.5 ML SYRINGE IV ×2 (06:37→19:46)
[2019-08-30 06:49] LABS: Anion Gap 9 (5-15); BUN 17 mg/dL (7-18); BUN/Creat Ratio 25.4 RATIO (10-20); Chloride 115 mmol/L (98-107); Creatinine, Serum 0.67 mg/dL (0.55-1.02); EST Glomerular Filtration Rate 94 mL/min (>60); Est Glom Filt Rate - Afr Amer 114 mL/min (>60); Estimated Creatinine Clearance 78.37 ml/min; Glucose 118 mg/dL (74-106); Potassium 3.6 mmol/L (3.5-5.1); Sodium Level 146 mmol/L (136-145)
[2019-08-30 06:53] LABS: Differential Comment SCANNED; Platelet Estimate ADEQUATE (ADEQ)
[2019-08-30 07:05] LABS: Bedside Glucose 101 mg/dL (70-110)
--- NOTE | 2019-08-30 08:20 | PN.SURG_ITS ---
Patient Problems: Active and Suspected Problems Altered mental status (Acute) Colitis (Acute) Constipation (Acute) Large bowel obstruction (Acute) Subjective: Patient continues to have coughing. She is having stool in her colostomy bag. She did have some nausea overnight but this has resolved. - Physical Exam Vitals/I&O's: Vital Signs Temp Pulse Resp BP Pulse Ox 98.4 F 99 18 113/72 91 08/30/19 03:00 08/30/19 03:00 08/30/19 03:00 08/30/19 03:00 08/30/19 07:40 Oxygen Flow Rate (L/min) 3 Oxygen Delivery Method Nasal Cannula Weight: 174 lb 9.698 oz Body Mass Index (BMI) 27.8 Finger Stick Blood Glucose 86 Intake and Output for Last 24 Hours 08/28/19 08/29/19 08/30/19 22:59 23:59 23:59 Intake Total 941.33 / 941.33 Output Total Balance 941.33 / 941.33 General: Alert, Oriented x3 Lungs: - - Cough Cardiovascular: Regular rate, Regular Rhythm Abdomen: Soft, Non-Distended, - - Stoma pink with stool in the bag Laboratory Results 08/29/19 12:01: POC Glucose 105 08/29/19 17:35: POC Glucose 88 08/29/19 22:37: Magnesium 2.1 08/29/19 23:57: POC Glucose 92 08/30/19 05:06: POC Glucose 101 08/30/19 05:42: WBC 18.3 H, RBC 3.23 L, Hgb 8.8 L, Hct 28.2 L, MCV 87.3, MCH 27.2, MCHC 31.2 L, RDW Std Deviation 54.0 H, RDW Coeff of Wilmar 17.0 H, Plt Count 441, MPV 9.4, Immature Gran % (Auto) 1.500 H, Neut % (Auto) 83.6 H, Lymph % ( Auto) 6.1 L, [place] % (Auto) 8.5, Eos % (Auto) 0.1, Baso % (Auto) 0.2, Absolute Neuts (auto) 15.3 H, Absolute Lymphs (auto) 1.11, Nucleated RBC % 0, Differential Comment SCANNED, Diff Path Review October, Platelet Estimate ADEQUATE 08/30/19 05:42: Sodium 146 H, Potassium 3.6, Chloride 115 H, Carbon Dioxide 22.0, Anion Gap 9, BUN 17, Creatinine 0.67, Estim Creat Clear Calc 78.37, Est GFR (MDRD) Af Amer 114, Est GFR (MDRD) Non-Af 94, BUN/Creatinine Ratio 25.4 H, Glucose 118 H, Calcium 8.0 L Current Medications Atorvastatin Calcium (Lipitor) 80 mg PO QHS [facility] Last Admin: 08/29/19 21:59 Dose: Not Given Documented by: Chlorhexidine Gluconate () 1 each TOPICAL DAILY [facility] Last Admin: 08/30/19 07:45 Dose: Not Given Documented by: Enoxaparin Sodium (Lovenox) 40 mg SC DAILY [facility] Last Admin: 08/29/19 09:20 Dose: 40 mg Documented by: Hydromorphone HCl (Dilaudid Inj) 0.5 mg IV Q3H PRN PRN PRN Reason: pain 6-04/01 Last Admin: 08/30/19 06:37 Dose: 0.5 mg Documented by: Sodium Chloride () 250 mls @ 15 mls/hr IV .[id number] PRN PRN Reason: Saline Flush Last Infusion: 08/29/19 07:00 Dose: 0 mls/hr Documented by: Sodium Chloride () 250 mls @ 15 mls/hr IV .[id number] PRN PRN Reason: Additional IVPB Infusion Pantoprazole Sodium 40 mg/ (Sodium Chloride) 110 mls @ 330 mls/hr IV Q12 [facility] Last Infusion: 08/29/19 22:19 Dose: Infused Documented by: Sodium Chloride () 500 mls @ 15 mls/hr IV PRN PRN PRN Reason: Blood Transfusion Potassium Chloride/Sodium Chloride () 1,000 mls @ 70 mls/hr IV .[id number] [facility] Last Admin: 08/30/19 03:37 Dose: 70 mls/hr Documented by: Piperacillin Sod/Tazobactam (Sod 3.375 gm/ Sodium Chloride) 50 mls @ 12.5 mls/hr IV Q8 [facility] Last Admin: 08/30/19 05:09 Dose: 12.5 mls/hr Documented by: Insulin Human Lispro (Humalog Cherriepen (Bkc)) 0 unit SC Q6 [facility]; Protocol Last Admin: 08/30/19 05:09 Dose: Not Given Documented by: Melatonin (Melatonin) 3 mg PO QHS PRN PRN PRN Reason: INSOMNIA Ondansetron HCl (Zofran) 4 mg IV Q8H PRN PRN PRN Reason: NAUSEA/VOMITING Last Admin: 08/29/19 09:15 Dose: 4 mg Documented by: Prochlorperazine Edisylate (Compazine Iv) 10 mg IV Q4H PRN PRN PRN Reason: NAUSEA/VOMITING Last Admin: 08/29/19 23:58 Dose: 10 mg Documented by: Sodium Chloride () 10 - 40 ml IV UD PRN PRN Reason: SALINE FLUSH Last Admin: 08/30/19 06:37 Dose: 10 ml Documented by: Medical Necessity - Tobacco Use Smoking Status: Current every day smoker Tobacco Use: Cigarettes Assessment/Plan All Active Problems Sigmoid diverticulitis (Acute) Failure of outpatient treatment (Acute) Altered mental status (Acute) Colitis (Acute) Constipation (Acute) Large bowel obstruction (Acute) 64-year-old female with large bowel obstruction 1. Patient appears to be doing better today. She is having gas and stool from her colostomy. Her colostomy is pink. She has a wound VAC over her incision. Her antibiotics were continued and her white count continues to be elevated. She did have infiltrates on chest x-ray from yesterday. Sputum culture is ordered. Continue to encourage ambulation. I will start a clear liquid diet and see how she tolerates this today. Clark Lomax MD Pager: [facility] [address] [place] [address], [address] [place] [address] Office:
[2019-08-30] MEDS: Enoxaparin 40 MG/0.4 ML Syringe SC (09:19)
--- NOTE | 2019-08-30 09:54 | NURSING ---
wound/stoma photo: abdomen
[2019-08-30] MEDS: Ondansetron 4 MG/2 ML Vial IV (10:29)
[2019-08-30 11:20] LABS: Bedside Glucose 138 mg/dL (70-110)
--- NOTE | 2019-08-30 11:54 | PCM.PN.PUL ---
Patient Problems: Active and Suspected Problems Altered mental status (Acute) Colitis (Acute) Constipation (Acute) Large bowel obstruction (Acute) Subjective: The patient was seen and examined at the bedside this morning. Events from the last 24 hours have been reviewed. The patient is currently afebrile, hemodynamically stable and maintaining appropriate oxygen saturations on 3 L/min via nasal cannula. Patient does report the presence of a cough. Objective: The patient's most recent lab work, culture data and imaging studies have all been personally reviewed. Surface echocardiogram revealed stage I diastolic dysfunction with a right ventricular systolic pressure estimated to be 55 mmHg. - Physical Exam Vitals/I&O's: Vital Signs Temp Pulse Resp BP Pulse Ox 98.5 F 90 16 157/53 H 94 08/30/19 09:00 08/30/19 09:00 08/30/19 09:00 08/30/19 09:00 08/30/19 09:00 Oxygen Flow Rate (L/min) 3 Oxygen Delivery Method Nasal Cannula Weight: 174 lb 9.698 oz Body Mass Index (BMI) 27.8 Finger Stick Blood Glucose 86 Intake and Output for Last 24 Hours 08/28/19 08/29/19 08/30/19 22:59 23:59 23:59 Intake Total 1341.33 / 1341.33 Output Total Balance 1341.33 / 1341.33 General: Alert, No apparent distress, - - Sitting in bedside recliner HEENT: Atraumatic, Normocephalic Oral: Dry Mucosa Neck: Supple, No Nodes, Trachea Midline Lungs: No rhonchi, No wheeze, No rales Cardiovascular: Regular rate, Regular Rhythm, Normal S1, Normal S2, No murmurs Abdomen: Bowel Sounds Present, Soft, Non Tender, - - +Ostomy Extremities: No clubbing, No cyanosis, No edema Skin: No breakdown Musculoskeletal: No Tenderness to Palpation of Joints or Extremities Lymphatic: No Cervical, Supraclavicular, or Inguinal Adenopathy Neurological: Cranial nerves II-XII grossly intact, Neuro grossly intact Psych/Mental Status: Normal Affect, Appropriate Labs (Last 48 Hours) 08/28/19 08/28/19 08/29/19 12:13 18:10 00:14 WBC RBC Hgb Hct MCV MCH MCHC RDW Std Deviation RDW Coeff of Wilmra Plt Count MPV Immature Gran % (Auto) Neut % (Auto) Lymph % (Auto) [place] % (Auto) Eos % (Auto) Baso % (Auto) Absolute Neuts (auto) Absolute Lymphs (auto) Nucleated RBC % Differential Comment Diff Path Review Platelet Estimate Sodium Potassium Chloride Carbon Dioxide Anion Gap BUN Creatinine Estim Creat Clear Calc Est GFR (MDRD) Af Amer Est GFR (MDRD) Non-Af BUN/Creatinine Ratio Glucose Calcium Magnesium POC Glucose 97 84 86 08/29/19 08/29/19 08/29/19 04:43 05:23 05:23 WBC 19.0 H RBC 3.67 L Hgb 10.0 L Hct 32.1 L MCV 87.5 MCH 27.2 MCHC 31.2 L RDW Std Deviation 53.1 H RDW Coeff of Wilmar 16.6 H Plt Count 361 MPV 9.5 Immature Gran % (Auto) 1.200 H Neut % (Auto) 87.2 H Lymph % (Auto) 5.0 L [place] % (Auto) 6.3 Eos % (Auto) 0.1 Baso % (Auto) 0.2 Absolute Neuts (auto) 16.5 H Absolute Lymphs (auto) 0.94 Nucleated RBC % 0 Differential Comment Diff Path Review Platelet Estimate Sodium 144 Potassium 4.0 Chloride 112 H Carbon Dioxide 20.0 L Anion Gap 12 BUN 14 Creatinine 0.66 Estim Creat Clear Calc 79.55 Est GFR (MDRD) Af Amer 115 Est GFR (MDRD) Non-Af 95 BUN/Creatinine Ratio 21.1 H Glucose 101 Calcium 7.9 L Magnesium POC Glucose 100 08/29/19 08/29/19 08/29/19 12:01 17:35 22:37 WBC RBC Hgb Hct MCV MCH MCHC RDW Std Deviation RDW Coeff of Wilmar Plt Count MPV Immature Gran % (Auto) Neut % (Auto) Lymph % (Auto) [place] % (Auto) Eos % (Auto) Baso % (Auto) Absolute Neuts (auto) Absolute Lymphs (auto) Nucleated RBC % Differential Comment Diff Path Review Platelet Estimate Sodium Potassium Chloride Carbon Dioxide Anion Gap BUN Creatinine Estim Creat Clear Calc Est GFR (MDRD) Af Amer Est GFR (MDRD) Non-Af BUN/Creatinine Ratio Glucose Calcium Magnesium 2.1 POC Glucose 105 88 08/29/19 08/30/19 08/30/19 23:57 05:06 05:42 WBC 18.3 H RBC 3.23 L Hgb 8.8 L Hct 28.2 L MCV 87.3 MCH 27.2 MCHC 31.2 L RDW Std Deviation 54.0 H RDW Coeff of Wilmar 17.0 H Plt Count 441 MPV 9.4 Immature Gran % (Auto) 1.500 H Neut % (Auto) 83.6 H Lymph % (Auto) 6.1 L [place] % (Auto) 8.5 Eos % (Auto) 0.1 Baso % (Auto) 0.2 Absolute Neuts (auto) 15.3 H Absolute Lymphs (auto) 1.11 Nucleated RBC % 0 Differential Comment SCANNED Diff Path Review May foll Platelet Estimate ADEQUATE Sodium Potassium Chloride Carbon Dioxide Anion Gap BUN Creatinine Estim Creat Clear Calc Est GFR (MDRD) Af Amer Est GFR (MDRD) Non-Af BUN/Creatinine Ratio Glucose Calcium Magnesium POC Glucose 92 101 08/30/19 08/30/19 05:42 11:08 WBC RBC Hgb Hct MCV MCH MCHC RDW Std Deviation RDW Coeff of Wilmar Plt Count MPV Immature Gran % (Auto) Neut % (Auto) Lymph % (Auto) [place] % (Auto) Eos % (Auto) Baso % (Auto) Absolute Neuts (auto) Absolute Lymphs (auto) Nucleated RBC % Differential Comment Diff Path Review Platelet Estimate Sodium 146 H Potassium 3.6 Chloride 115 H Carbon Dioxide 22.0 Anion Gap 9 BUN 17 Creatinine 0.67 Estim Creat Clear Calc 78.37 Est GFR (MDRD) Af Amer 114 Est GFR (MDRD) Non-Af 94 BUN/Creatinine Ratio 25.4 H Glucose 118 H Calcium 8.0 L Magnesium POC Glucose 138 H Clinical Impression(s) from Imaging Studies Brain CT 08/24/19 14:45 IMPRESSION: No acute intracranial abnormality. Chronic ischemic and atrophic changes. Electronically Signed: Theo James, at 17:05 EST Tel , Service support , Abdomen/Pelvis CT 08/24/19 14:48 IMPRESSION: Colitis in the sigmoid colon. No bowel obstruction. Constipation. No free air, free fluid or fluid collection. Electronically Signed: Theo James at 17:08 EST Tel , Service support , Brain MRI 08/25/19 09:00 IMPRESSION: Involutional changes of the brain, as described above. Electronically Signed: Carlitos Valeriy, at 14:50 EST Tel , Service support , Head MRA 08/25/19 09:00 IMPRESSION: Normal MRA of the head Electronically Signed: Peymanveronica Crooks, at 14:35 EST Tel , Service support , Neck MRA 08/25/19 09:00 IMPRESSION: Normal bilateral cervical carotid and vertebral arteries. Electronically Signed: Carlitos Crooks at 15:40 EST Tel , Service support , Chest X-Ray 08/25/19 21:28 IMPRESSION: Satisfactory position of the support lines and tubes. Patchy opacity at the right lung base which is likely infectious in etiology. No acute thoracic pathology. Electronically Signed: Theo James, at 22:39 EST Tel , Service support , Chest X-Ray 08/29/19 09:24 IMPRESSION: 1. Developing bilateral infiltrates suggesting edema or pneumonia. Electronically Signed: Helder Elizalde MD (Brooks) at 14:20 EDT , Service support , Current Medications Atorvastatin Calcium (Lipitor) 80 mg PO QHS [facility] Last Admin: 08/29/19 21:59 Dose: Not Given Documented by: Chlorhexidine Gluconate () 1 each TOPICAL DAILY [facility] Last Admin: 08/30/19 07:45 Dose: Not Given Documented by: Enoxaparin Sodium (Lovenox) 40 mg SC DAILY [facility] Last Admin: 08/30/19 09:19 Dose: 40 mg Documented by: Hydromorphone HCl (Dilaudid Inj) 0.5 mg IV Q3H PRN PRN PRN Reason: pain 6-04/01 Last Admin: 08/30/19 06:37 Dose: 0.5 mg Documented by: Sodium Chloride () 250 mls @ 15 mls/hr IV .[id number] PRN PRN Reason: Saline Flush Last Infusion: 08/29/19 07:00 Dose: 0 mls/hr Documented by: Sodium Chloride () 250 mls @ 15 mls/hr IV .[id number] PRN PRN Reason: Additional IVPB Infusion Pantoprazole Sodium 40 mg/ (Sodium Chloride) 110 mls @ 330 mls/hr IV Q12 [facility] Last Infusion: 08/30/19 10:15 Dose: Infused Documented by: Sodium Chloride () 500 mls @ 15 mls/hr IV PRN PRN PRN Reason: Blood Transfusion Potassium Chloride/Sodium Chloride () 1,000 mls @ 70 mls/hr IV .[id number] [facility] Last Admin: 08/30/19 03:37 Dose: 70 mls/hr Documented by: Piperacillin Sod/Tazobactam (Sod 3.375 gm/ Sodium Chloride) 50 mls @ 12.5 mls/hr IV Q8 [facility] Last Infusion: 08/30/19 10:15 Dose: Infused Documented by: Insulin Human Lispro (Humalog Kwikpen (Bkc)) 0 unit SC Q6 [facility]; Protocol Last Admin: 08/30/19 11:21 Dose: Not Given Documented by: Melatonin (Melatonin) 3 mg PO QHS PRN PRN PRN Reason: INSOMNIA Ondansetron HCl (Zofran) 4 mg IV Q8H PRN PRN PRN Reason: NAUSEA/VOMITING Last Admin: 08/30/19 10:29 Dose: 4 mg Documented by: Prochlorperazine Edisylate (Compazine Iv) 10 mg IV Q4H PRN PRN PRN Reason: NAUSEA/VOMITING Last Admin: 08/29/19 23:58 Dose: 10 mg Documented by: Sodium Chloride () 10 - 40 ml IV UD PRN PRN Reason: SALINE FLUSH Last Admin: 03/09/20 06:37 Dose: 10 ml Documented by: Medical Necessity - Tobacco Use Smoking Status: Current every day smoker Tobacco Use: Cigarettes Assessment/Plan All Active Problems Sigmoid diverticulitis (Acute) Failure of outpatient treatment (Acute) Altered mental status (Acute) Colitis (Acute) Constipation (Acute) Large bowel obstruction (Acute) RECOMMENDATIONS: 1. Wean supplemental oxygen as tolerated. 2. Check BNP. 3. Patient may benefit from gentle diuresis, given overall net positive fluid status and underlying heart failure with preserved ejection fraction. 4. Encourage incentive spirometer use and mobilize patient as tolerated. 5. Will sign off from a critical care perspective. IMPRESSIONS: 1. Severe sepsis secondary to peritonitis with fecal contamination secondary to sigmoid stricture Improving. Continue routine postoperative care and pain control per surgery recommendations. Continue IV Zosyn as ordered. 2. Acute blood loss anemia The patient has received a total of 4 units of packed red blood cells throughout this hospitalization. Hemoglobin is stable. Continue to monitor H&H daily with plans to transfuse if hemoglobin drops below 7 g/dL. 3. Acute respiratory failure Plain film chest x-ray obtained yesterday revealed findings concerning for evolving pulmonary edema. Recommend checking BNP level. If feasible, I would recommend discontinuation of supplemental IV fluids. If BNP is elevated, may need to consider gentle diuresis. This note was generated with [employer] dictation software. It may contain incorrect words, spelling, and punctuation that were not noted in checking the note before signing. Inpatient E&M: [id number] Subs Hosp L2
--- NOTE | 2019-08-30 12:02 | NURSING ---
Colostomy appliance changed with VAC change. stoma is beefy red and measures approx 1 1/2. stoma is well budded. peristomal skin is intact. cleansed skin with warm water. pat dry and applied a new 2 piece Esmond flat appliance with a small amount of stoma paste. pt tolerated well. see photo.
--- NOTE | 2019-08-30 13:00 | PN_ITS ---
Patient Problems: Active and Suspected Problems Altered mental status (Acute) Colitis (Acute) Constipation (Acute) Large bowel obstruction (Acute) Subjective: Patient seen and examined,. She still complains of some abdominal pain. She thinks she has started passing gas and had some bowel movement in colostomy bag this morning. She denies fever, chills, nausea, vomiting or shortness of breath. Review of systems is otherwise negative. Labs and vitals reviewed. Vitals/I&O's: Vital Signs Temp Pulse Resp BP Pulse Ox 98.5 F 90 16 157/53 H 94 08/30/19 09:00 08/30/19 09:00 08/30/19 09:00 08/30/19 09:00 08/30/19 09:00 Oxygen Flow Rate (L/min) 3 Oxygen Delivery Method Nasal Cannula Weight: 174 lb 9.698 oz Body Mass Index (BMI) 27.8 Finger Stick Blood Glucose 86 Intake and Output for Last 24 Hours 08/28/19 08/29/19 08/30/19 22:59 23:59 23:59 Intake Total 1341.33 / 1341.33 Output Total Balance 1341.33 / 1341.33 General: Alert, Oriented x3, Cooperative, No apparent distress, - - frail HEENT: Atraumatic, PERRLA, EOMI, Normocephalic Oral: Dry Mucosa Neck: Supple, No JVD, Negative Carotid Bruits Lungs: Clear to auscultation, Normal air movement, No rhonchi, No wheeze Cardiovascular: Regular rate, Regular Rhythm, Normal S1, Normal S2, No murmurs Abdomen: Bowel Sounds Present, Soft, - - mild to moderate generalised tenderness, no guarding or rebound tenderness. Surgical incision dressing in place. Colostomy bag contains scant stool. Extremities: No clubbing, No cyanosis, No edema, Capillary Refill Less than 3 Seconds Skin: No rashes, No breakdown Musculoskeletal: No Tenderness to Palpation of Joints or Extremities Lymphatic: No Cervical, Supraclavicular, or Inguinal Adenopathy Neurological: Cranial nerves II-XII grossly intact, Neuro grossly intact, Motor Exam 5/5 strength throughout Psych/Mental Status: Normal Affect, Appropriate, Alert and oriented to time, place, person, mood and affect Laboratory Results 08/29/19 17:35: POC Glucose 88 08/29/19 22:37: Magnesium 2.1 03/08/20 23:57: POC Glucose 92 08/30/19 05:06: POC Glucose 101 08/30/19 05:42: WBC 18.3 H, RBC 3.23 L, Hgb 8.8 L, Hct 28.2 L, MCV 87.3, MCH 27.2, MCHC 31.2 L, RDW Std Deviation 54.0 H, RDW Coeff of Wilmar 17.0 H, Plt Count 441, MPV 9.4, Immature Gran % (Auto) 1.500 H, Neut % (Auto) 83.6 H, Lymph % (Auto) 6.1 L, Hickman % (Auto) 8.5, Eos % (Auto) 0.1, Baso % (Auto) 0.2, Absolute Neuts (auto) 15.3 H, Absolute Lymphs (auto) 1.11, Nucleated RBC % 0, Differential Comment SCANNED, Diff Path Review October, Platelet Estimate ADEQUATE 08/30/19 05:42: Sodium 146 H, Potassium 3.6, Chloride 115 H, Carbon Dioxide 22.0, Anion Gap 9, BUN 17, Creatinine 0.67, Estim Creat Clear Calc 78.37, Est GFR (MDRD) Af Amer 114, Est GFR (MDRD) Non-Af 94, BUN/Creatinine Ratio 25.4 H, Glucose 118 H, Calcium 8.0 L 08/30/19 05:42: B-Natriuretic Peptide Pending 08/30/19 11:08: POC Glucose 138 H Diagnostic Data Brain CT 08/24/19 14:45 IMPRESSION: No acute intracranial abnormality. Chronic ischemic and atrophic changes. Electronically Signed: Theo James, at 17:05 EST Tel , Service support , Abdomen/Pelvis CT 08/24/19 14:48 IMPRESSION: Colitis in the sigmoid colon. No bowel obstruction. Constipation. No free air, free fluid or fluid collection. Electronically Signed: Theo James, at 17:08 EST Tel , Service support , Brain MRI 08/25/19 09:00 IMPRESSION: Involutional changes of the brain, as described above. Electronically Signed: Carlitos Crooks, at 14:50 EST Tel , Service support , Head MRA 08/25/19 09:00 IMPRESSION: Normal MRA of the head Electronically Signed: Carlitos Tishgutierrez, at 14:35 EST Tel , Service support , Neck MRA 08/25/19 09:00 IMPRESSION: Normal bilateral cervical carotid and vertebral arteries. Electronically Signed: Carlitos Tishgutierrez, at 15:40 EST Tel , Service support , Chest X-Ray 08/29/19 09:24 IMPRESSION: 1. Developing bilateral infiltrates suggesting edema or pneumonia. Electronically Signed: Helder Elizalde MD ([facility]) at 14:20 EDT , Service support , Current Medications Atorvastatin Calcium (Lipitor) 80 mg PO QHS [facility] Last Admin: 08/29/19 21:59 Dose: Not Given Documented by: Chlorhexidine Gluconate () 1 each TOPICAL DAILY [facility] Last Admin: 08/30/19 07:45 Dose: Not Given Documented by: Enoxaparin Sodium (Lovenox) 40 mg SC DAILY [facility] Last Admin: 08/30/19 09:19 Dose: 40 mg Documented by: Hydromorphone HCl (Dilaudid Inj) 0.5 mg IV Q3H PRN PRN PRN Reason: pain [id number] Last Admin: 08/30/19 06:37 Dose: 0.5 mg Documented by: Sodium Chloride () 250 mls @ 15 mls/hr IV .[id number] PRN PRN Reason: Saline Flush Last Infusion: 08/29/19 07:00 Dose: 0 mls/hr Documented by: Sodium Chloride () 250 mls @ 15 mls/hr IV .[id number] PRN PRN Reason: Additional IVPB Infusion Pantoprazole Sodium 40 mg/ (Sodium Chloride) 110 mls @ 330 mls/hr IV Q12 [facility] Last Infusion: 08/30/19 10:15 Dose: Infused Documented by: Sodium Chloride () 500 mls @ 15 mls/hr IV PRN PRN PRN Reason: Blood Transfusion Potassium Chloride/Sodium Chloride () 1,000 mls @ 70 mls/hr IV .[id number] [facility] Last Admin: 08/30/19 03:37 Dose: 70 mls/hr Documented by: Piperacillin Sod/Tazobactam (Sod 3.375 gm/ Sodium Chloride) 50 mls @ 12.5 mls/hr IV Q8 [facility] Last Infusion: 08/30/19 10:15 Dose: Infused Documented by: Insulin Human Lispro (Humalog Kwikpen (Bkc)) 0 unit SC Q6 [facility]; Protocol Last Admin: 08/30/19 11:21 Dose: Not Given Documented by: Melatonin (Melatonin) 3 mg PO QHS PRN PRN PRN Reason: INSOMNIA Ondansetron HCl (Zofran) 4 mg IV Q8H PRN PRN PRN Reason: NAUSEA/VOMITING Last Admin: 08/30/19 10:29 Dose: 4 mg Documented by: Prochlorperazine Edisylate (Compazine Iv) 10 mg IV Q4H PRN PRN PRN Reason: NAUSEA/VOMITING Last Admin: 08/29/19 23:58 Dose: 10 mg Documented by: Sodium Chloride () 10 - 40 ml IV UD PRN PRN Reason: SALINE FLUSH Last Admin: 08/30/19 06:37 Dose: 10 ml Documented by: Medical Necessity - Tobacco Use Smoking Status: Current every day smoker Tobacco Use: Cigarettes Assessment/Plan All Active Problems Sigmoid diverticulitis (Acute) Failure of outpatient treatment (Acute) Altered mental status (Acute) Colitis (Acute) Constipation (Acute) Large bowel obstruction (Acute) 1. sigmoid stricture * s/p loop transverse colostomy on 08/25/2019 and exploratory laparotomy with extensive adhesiolysis, left colectomy w aguilar procedure and end transverse colostomy on 08.26.2019 * today is POD 4 * pain is fairly well controlled * on IV zosyn. * general surgery on board- started patient on clear liquids today. * wbc is 18.3 today. * 2. Acute blood loss anemia * due to surgery * s/p transfusion of 4 units of PRBCs. * Hb today is 8.8 * 3. Acute hypoxic respiratory failure: * was post op. Was intubated and subsequently extubated. * now on 3L of oxygen. in cumulative positive balance by 10L since admission. BNP is also up to 330 today. Discussed with general surgery; will dc IVF * Pulmo on board. * On breathing treatments. * 4. Chronic dysphagia: has had dilatations done with Dr Fallon. Stable. [facility] [place]: [id number] [facility] L3
[2019-08-30 13:03] LABS: BNP,B-Type NATRIURETIC PEPTIDE 330.1 pg/mL (0-100)
[2019-08-30] MEDS: proCHLORPERazine 10 MG/2 ML Vial IV (15:51)
--- NOTE | 2019-08-30 15:59 | NURSING ---
pt with 100ml of bile emesis. compazine given. pt with ice chips and water for the moment and instructed to continue to only have a very small amount at a time
[2019-08-30 18:35] LABS: Bedside Glucose 104 mg/dL (70-110)
--- NOTE | 2019-08-30 19:03 | NURSING ---
patient refusing to walk at this time. agreeable to get in chair for 20 minutes and then back to bed. patient educated on need for increasing activity
[2019-08-30 19:38] LABS: Magnesium 2.1 mg/dL (1.6-2.6)
[2019-08-30] MEDS: Atorvastatin Calcium 80 MG Tablet PO (22:08)
--- NOTE | 2019-08-30 22:30 | NURSING ---
pt continues to refuse to ambulate in hallway. PT educated on the importance of ambulation.
[2019-08-31] VITALS (11 sets, daily range): BP systolic 146–160; BP diastolic 71–85; PULSE 77–96; RESP 18–20; TEMP 36.5–36.8; O2SAT 92–97
[2019-08-31 00:06] LABS: Bedside Glucose 112 mg/dL (70-110)
[2019-08-31] MEDS: HYDROmorphone 0.5 MG/0.5 ML SYRINGE IV ×5 (03:26→21:07)
[2019-08-31] MEDS: Ondansetron 4 MG/2 ML Vial IV ×2 (03:26→12:05)
[2019-08-31] MEDS: Insulin Lispro 100 UNIT/ML INSULN.PEN SC (05:42)
[2019-08-31 06:01] LABS: Bedside Glucose 206 mg/dL (70-110)
[2019-08-31 06:24] LABS: Absolute Neutrophil Count 11.3 X10^3/uL (2.0-7.7); Basophil# 0.02 X10^3/uL; Basophil% 0.1 % (0-1); Eosinophil# 0.01 X10^3/uL; Eosinophils% 0.1 % (0-5); Hematocrit 26.5 % (37-47); Hemoglobin 8.6 g/dL (12.0-15.0); Lymphocyte % 6.6 % (19-41); Mean Corp Hgb Conc 32.5 g/dL (32-36); Mean Corpuscular Hgb 27.9 pg (27.0-32.0); Mean Platelet Vol. 9.4 fl (6.2-12.0); Monocyte# 1.21 X10^3/uL; Monocyte% 8.8 % (0-10); NRBC Flagged by Analyzer 0 % (0-5); Neutrophil # 11.28 X10^3/uL (2.7-7.7); Neutrophil % 82.4 % (47-70); Platelet Count 424 K/mm3 (150-450); RBC Distribution Width CV 17.1 % (11.6-14.6); RBC Distribution Width SD 53.9 fl (35.1-43.9); Red Blood Count 3.08 M/mm3 (4.2-5.4); White Blood Count 13.7 K/mm3 (4.4-11.0)
[2019-08-31 07:01] LABS: Anion Gap 6 (5-15); BUN 15 mg/dL (7-18); BUN/Creat Ratio 22.8 RATIO (10-20); Calcium,Total 7.8 mg/dL (8.5-10.1); Chloride 111 mmol/L (98-107); Creatinine, Serum 0.66 mg/dL (0.55-1.02); EST Glomerular Filtration Rate 96 mL/min (>60); Est Glom Filt Rate - Afr Amer 116 mL/min (>60); Estimated Creatinine Clearance 79.55 ml/min; Glucose 180 mg/dL (74-106); Potassium 3.4 mmol/L (3.5-5.1); Sodium Level 142 mmol/L (136-145)
--- NOTE | 2019-08-31 07:39 | PCM.PN.SRG ---
Patient Problems: Active and Suspected Problems Altered mental status (Acute) Colitis (Acute) Constipation (Acute) Large bowel obstruction (Acute) Subjective: Patient is having stool from her colostomy but she did vomit overnight. - Physical Exam Vitals/I&O's: Vital Signs Temp Pulse Resp BP Pulse Ox 98.0 F 79 20 H 146/71 H 94 08/31/19 05:34 08/31/19 05:34 08/31/19 05:34 08/31/19 05:34 08/31/19 05:34 Oxygen Flow Rate (L/min) 3 Oxygen Delivery Method Nasal Cannula Weight: 177 lb 4.026 oz Body Mass Index (BMI) 27.8 Finger Stick Blood Glucose 86 Intake and Output for Last 24 Hours 08/29/19 08/30/19 08/31/19 23:59 23:59 23:59 Intake Total 2232.16 / 2232.16 98.75 / 98.75 Output Total 250 / 250 300 / 300 Balance 1982.16 / 1981.16 -201.25 / -201.25 General: Alert Neck: No JVD Lungs: Normal air movement Cardiovascular: Regular rate, Regular Rhythm Abdomen: Soft, Non-Distended Microbiology Past 72 Hours 08/30/19 12:00 Sputum, Expectorated/Coughed Gram Stain - Final Laboratory Results 08/30/19 05:42: B-Natriuretic Peptide 330.1 H 08/30/19 11:08: POC Glucose 138 H 08/30/19 18:16: POC Glucose 104 08/30/19 18:46: Magnesium 2.1 08/30/19 23:47: POC Glucose 112 H 08/31/19 05:38: POC Glucose 206 H 08/31/19 06:00: WBC 13.7 H, RBC 3.08 L, Hgb 8.6 L, Hct 26.5 L, MCV 86.0, MCH 27.9, MCHC 32.5, RDW Std Deviation 53.9 H, RDW Coeff of Wilmar 17.1 H, Plt Count 424, MPV 9.4, Immature Gran % (Auto) 2.000 H, Neut % (Auto) 82.4 H, Lymph % (Auto) 6.6 L, [place] % (Auto) 8.8, Eos % (Auto) 0.1, Baso % (Auto) 0.1, Absolute Neuts (auto) 11.3 H, Absolute Lymphs (auto) 0.90, Nucleated RBC % 0 08/31/19 06:00: Sodium 142, Potassium 3.4 L, Chloride 111 H, Carbon Dioxide 25.0, Anion Gap 6, BUN 15, Creatinine 0.66, Estim Creat Clear Calc 79.55, Est GFR (MDRD) Af Amer 116, Est GFR (MDRD) Non-Af 96, BUN/Creatinine Ratio 22.8 H, Glucose 180 H, Calcium 7.8 L Current Medications Atorvastatin Calcium (Lipitor) 80 mg PO QHS [facility] Last Admin: 08/30/19 22:08 Dose: 80 mg Documented by: Chlorhexidine Gluconate () 1 each TOPICAL DAILY [facility] Last Admin: 08/30/19 07:45 Dose: Not Given Documented by: Enoxaparin Sodium (Lovenox) 40 mg SC DAILY [facility] Last Admin: 08/30/19 09:19 Dose: 40 mg Documented by: Hydromorphone HCl (Dilaudid Inj) 0.5 mg IV Q3H PRN PRN PRN Reason: pain -04/01 Last Admin: 08/31/19 03:26 Dose: 0.5 mg Documented by: Sodium Chloride () 250 mls @ 15 mls/hr IV .[id number] PRN PRN Reason: Saline Flush Last Infusion: 08/31/19 05:45 Dose: 0 mls/hr Documented by: Sodium Chloride () 250 mls @ 15 mls/hr IV .[id number] PRN PRN Reason: Additional IVPB Infusion Pantoprazole Sodium 40 mg/ (Sodium Chloride) 110 mls @ 330 mls/hr IV Q12 [facility] Last Infusion: 08/30/19 22:29 Dose: Infused Documented by: Sodium Chloride () 500 mls @ 15 mls/hr IV PRN PRN PRN Reason: Blood Transfusion Piperacillin Sod/Tazobactam (Sod 3.375 gm/ Sodium Chloride) 50 mls @ 12.5 mls/hr IV Q8 [facility] Last Admin: 08/31/19 05:39 Dose: 12.5 mls/hr Documented by: Insulin Human Lispro (Humalog Kwikpen (Bkc)) 0 unit SC Q6 [facility]; Protocol Last Admin: 08/31/19 05:42 Dose: 2 u Documented by: Melatonin (Melatonin) 3 mg PO QHS PRN PRN PRN Reason: INSOMNIA Ondansetron HCl (Zofran) 4 mg IV Q8H PRN PRN PRN Reason: NAUSEA/VOMITING Last Admin: 08/31/19 03:26 Dose: 4 mg Documented by: Prochlorperazine Edisylate (Compazine Iv) 10 mg IV Q4H PRN PRN PRN Reason: NAUSEA/VOMITING Last Admin: 08/30/19 15:51 Dose: 10 mg Documented by: Sodium Chloride () 10 - 40 ml IV UD PRN PRN Reason: SALINE FLUSH Last Admin: 08/30/19 06:37 Dose: 10 ml Documented by: Medical Necessity - Tobacco Use Smoking Status: Current every day smoker Tobacco Use: Cigarettes Assessment/Plan All Active Problems Sigmoid diverticulitis (Acute) Failure of outpatient treatment (Acute) Altered mental status (Acute) Colitis (Acute) Constipation (Acute) Large bowel obstruction (Acute) 64-year-old female status post left hemicolectomy for obstruction 1. The patient had vomiting after starting clears yesterday. She is still passing gas and stool from her colostomy her colostomy is pink in color and her white count is finally decreasing. Continue antibiotics and continue clear liquids until she is tolerating them and then advance diet. Clark Lomax MD Pager: [facility] [address] [place] [address], [address] [place] [phone] Office:
[2019-08-31] MEDS: 0.9% Saline Lock 10 ML Syringe IV ×6 (09:51→21:09)
[2019-08-31] MEDS: Enoxaparin 40 MG/0.4 ML Syringe SC (09:58)
[2019-08-31 10:18] LABS: Pathologist Review Reviewed
--- NOTE | 2019-08-31 12:29 | PN_ITS ---
Patient Problems: Active and Suspected Problems Altered mental status (Acute) Colitis (Acute) Constipation (Acute) Large bowel obstruction (Acute) Subjective: Patient seen and examined. She had an uneventful night. She did throw up once after she was started on the clear liquid diet yesterday. However she was subsequently able to tolerate a diet. She is having bowel movement with a colostomy. She still felt weak but denied any fever, any chills, any nausea vomiting, any abdominal pain or diarrhea. Review of systems otherwise negative. Labs and vitals reviewed. Potassium is 3.4 today. WBC has trended down to 13.7. Vitals/I&O's: Vital Signs Temp Pulse Resp BP Pulse Ox 97.7 F L 90 18 156/79 H 95 08/31/19 11:55 08/31/19 11:55 08/31/19 11:55 08/31/19 11:55 08/31/19 11:55 Oxygen Flow Rate (L/min) 95 Oxygen Delivery Method Nasal Cannula Weight: 177 lb 4.026 oz Body Mass Index (BMI) 27.8 Finger Stick Blood Glucose 86 Intake and Output for Last 24 Hours 08/29/19 08/30/19 08/31/19 23:59 23:59 23:59 Intake Total 2232.16 / 2232.16 258.75 / 258.75 Output Total 250 / 250 300 / 300 Balance / -41.25 / -41.25 General: Alert, Oriented x3, Cooperative, No apparent distress, - - frail HEENT: Atraumatic, PERRLA, EOMI, Normocephalic Oral: Dry Mucosa Neck: Supple, No JVD, Negative Carotid Bruits Lungs: Clear to auscultation, Normal air movement, No rhonchi, No wheeze Cardiovascular: Regular rate, Regular Rhythm, Normal S1, Normal S2, No murmurs Abdomen: Bowel Sounds Present, Soft, - - minimal generalised tenderness, no guarding or rebound tenderness. Colostomy bag contains scant stool. Surgical site incision healing well. Extremities: No clubbing, No cyanosis, No edema, Capillary Refill Less than 3 Seconds Skin: No rashes, No breakdown Musculoskeletal: No Tenderness to Palpation of Joints or Extremities Lymphatic: No Cervical, Supraclavicular, or Inguinal Adenopathy Neurological: Cranial nerves II-XII grossly intact, Neuro grossly intact, Motor Exam 5/5 strength throughout Psych/Mental Status: Normal Affect, Appropriate, Alert and oriented to time, place, person, mood and affect Microbiology Past 72 Hours 08/30/19 12:00 Sputum, Expectorated/Coughed Gram Stain - Final 08/30/19 12:00 Sputum, Expectorated/Coughed Respiratory Culture - Preliminary Culture exhibits no growth. Laboratory Results 08/30/19 05:42: Diff Path Review Reviewed 08/30/19 05:42: B-Natriuretic Peptide 330.1 H 08/30/19 18:16: POC Glucose 104 08/30/19 18:46: Magnesium 2.1 08/30/19 23:47: POC Glucose 112 H 08/31/19 05:38: POC Glucose 206 H 08/31/19 06:00: WBC 13.7 H, RBC 3.08 L, Hgb 8.6 L, Hct 26.5 L, MCV 86.0, MCH 27.9, MCHC 32.5, RDW Std Deviation 53.9 H, RDW Coeff of Wilmar 17.1 H, Plt Count 424, MPV 9.4, Immature Gran % (Auto) 2.000 H, Neut % (Auto) 82.4 H, Lymph % (Auto) 6.6 L, Owsley % (Auto) 8.8, Eos % (Auto) 0.1, Baso % (Auto) 0.1, Absolute Neuts (auto) 11.3 H, Absolute Lymphs (auto) 0.90, Nucleated RBC % 0 08/31/19 06:00: Sodium 142, Potassium 3.4 L, Chloride 111 H, Carbon Dioxide 25.0, Anion Gap 6, BUN 15, Creatinine 0.66, Estim Creat Clear Calc 79.55, Est GFR (MDRD) Af Amer 116, Est GFR (MDRD) Non-Af 96, BUN/Creatinine Ratio 22.8 H, Glucose 180 H, Calcium 7.8 L Diagnostic Data Brain CT 08/24/19 14:45 IMPRESSION: No acute intracranial abnormality. Chronic ischemic and atrophic changes. Electronically Signed: Theo James, at 17:05 EST Tel , Service support , Abdomen/Pelvis CT 08/24/19 14:48 IMPRESSION: Colitis in the sigmoid colon. No bowel obstruction. Constipation. No free air, free fluid or fluid collection. Electronically Signed: Theo James, at 17:08 EST Tel , Service support , Brain MRI 08/25/19 09:00 IMPRESSION: Involutional changes of the brain, as described above. Electronically Signed: Carlitos Crooks, at 14:50 EST Tel , Service support , Head MRA 08/25/19 09:00 IMPRESSION: Normal MRA of the head Electronically Signed: Carlitos Crooks at 14:35 EST Tel , Service support , Neck MRA 08/25/19 09:00 IMPRESSION: Normal bilateral cervical carotid and vertebral arteries. Electronically Signed: Carlitos Crooks, at 15:40 EST Tel , Service support , Chest X-Ray 08/29/19 09:24 IMPRESSION: 1. Developing bilateral infiltrates suggesting edema or pneumonia. Electronically Signed: Helder Elizalde MD ([place]) at 14:20 EDT , Service support , Current Medications Atorvastatin Calcium (Lipitor) 80 mg PO QHS [facility] Last Admin: 08/30/19 22:08 Dose: 80 mg Documented by: Chlorhexidine Gluconate () 1 each TOPICAL DAILY [facility] Last Admin: 08/31/19 11:53 Dose: Not Given Documented by: Enoxaparin Sodium (Lovenox) 40 mg SC DAILY [facility] Last Admin: 08/31/19 09:58 Dose: 40 mg Documented by: Hydromorphone HCl (Dilaudid Inj) 0.5 mg IV Q3H PRN PRN PRN Reason: pain 6-04/01 Last Admin: 08/31/19 09:51 Dose: 0.5 mg Documented by: Sodium Chloride () 250 mls @ 15 mls/hr IV .[id number] PRN PRN Reason: Saline Flush Last Infusion: 08/31/19 05:45 Dose: 0 mls/hr Documented by: Sodium Chloride () 250 mls @ 15 mls/hr IV .[id number] PRN PRN Reason: Additional IVPB Infusion Pantoprazole Sodium 40 mg/ (Sodium Chloride) 110 mls @ 330 mls/hr IV Q12 [facility] Last Infusion: 08/31/19 10:20 Dose: Infused Documented by: Sodium Chloride () 500 mls @ 15 mls/hr IV PRN PRN PRN Reason: Blood Transfusion Piperacillin Sod/Tazobactam (Sod 3.375 gm/ Sodium Chloride) 50 mls @ 12.5 mls/hr IV Q8 [facility] Last Infusion: 08/31/19 09:45 Dose: Infused Documented by: Insulin Human Lispro (Humalog Kwikpen (Bkc)) 0 unit SC Q6 [facility]; Protocol Last Admin: 08/31/19 11:53 Dose: Not Given Documented by: Melatonin (Melatonin) 3 mg PO QHS PRN PRN PRN Reason: INSOMNIA Ondansetron HCl (Zofran) 4 mg IV Q8H PRN PRN PRN Reason: NAUSEA/VOMITING Last Admin: 08/31/19 12:05 Dose: 4 mg Documented by: Prochlorperazine Edisylate (Compazine Iv) 10 mg IV Q4H PRN PRN PRN Reason: NAUSEA/VOMITING Last Admin: 08/30/19 15:51 Dose: 10 mg Documented by: Sodium Chloride () 10 - 40 ml IV UD PRN PRN Reason: SALINE FLUSH Last Admin: 08/31/19 12:05 Dose: 10 ml Documented by: STROKE Vital Signs/Narrative: Vital Signs Temp Pulse Resp BP Pulse Ox 08/31/19 11:55 97.7 F L 90 18 156/79 H 95 08/31/19 09:40 80 Medical Necessity - Tobacco Use Smoking Status: Current every day smoker Tobacco Use: Cigarettes Assessment/Plan All Active Problems Sigmoid diverticulitis (Acute) Failure of outpatient treatment (Acute) Altered mental status (Acute) Colitis (Acute) Constipation (Acute) Large bowel obstruction (Acute) 1. sigmoid stricture * s/p loop transverse colostomy on 08/25/2019 and exploratory laparotomy with extensive adhesiolysis, left colectomy w Hardeep procedure and end transverse colostomy on 08.26.2019 * today is POD 5 * pain is fairly well controlled * on IV zosyn. * general surgery on board- patient on clear liquids; general surgery on board; to advance diet as tolerated,. * wbc is 18.3 today. * 2. Acute blood loss anemia * due to surgery * s/p transfusion of 4 units of PRBCs. * Hb today is 8.6 * 3. Hypokalemia: K is 3.4 today. Will replace and monitor 5. Acute hypoxic respiratory failure: * was post op. Was intubated and subsequently extubated. * on breathing treatments with bronchodilators * pulmo on board. * now on 3L of oxygen. to wean oxygen down and titrate as needed to maintain sats>90% * 4. Chronic dysphagia: has had dilatations done with Dr Fallon. Stable. [place] [facility] [place] [id number] [facility] L3
[2019-08-31 14:31] LABS: Bedside Glucose 93 mg/dL (70-110)
[2019-08-31 16:56] LABS: Bedside Glucose 81 mg/dL (70-110)
[2019-08-31] MEDS: proCHLORPERazine 10 MG/2 ML Vial IV (18:02)
[2019-08-31 23:36] LABS: Bedside Glucose 104 mg/dL (70-110)
[2019-09-01] VITALS (44 sets, daily range): BP systolic 115–155; BP diastolic 75–135; PULSE 90–175; RESP 13–34; TEMP 36.2–37.3; O2SAT 91–100
--- NOTE | 2019-09-01 02:02 | NURSING ---
Addendum entered by Regine Olson 09/01/19 02:17: 0217 Hr remains in high 150s-160s. studio operations engineer in charge will call dr alonso. Addendum entered by Regine Olson 09/01/19 02:12: 0207 bp 148/101. hr 172 10 mg cardizem administered. 0210 bp 140/79 hr 169 10 mg cardizem administered pt continues to deny sxs. denies cp, palpitations, sob. 0215 bp 139/825 hr 151 Original Note: 0148 this rn checked on pt d/t high hr on tele monitor. obtained apical for HR of 158. very irregular. pt is tachypneic. all other vs wnl. notified primary rn and studio operations engineer in charge. 0155 CPS in for EKG on pt. HT remains fast and irregular. 0205 charge tn in w/meds.
[2019-09-01] MEDS: dilTIAZem 25 MG/5 ML Vial 20 MG IV BOLUS (02:07)
[2019-09-01] MEDS: 0.9% Saline Lock 10 ML Syringe IV ×8 (02:16→21:30)
[2019-09-01] MEDS: Metoprolol Tartrate 5 MG/5 ML Vial IV ×2 (02:53→03:29)
--- NOTE | 2019-09-01 03:29 | PCM.HOSP.N ---
Hospitalist Note Patient with onset sustained tachycardia, EKG with new onset atrial fibrillation with RVR, recent ECHO noted, will obtain Mag, TSH, given recent surgery defer anticoagulation, attempted cardizem 20 mg IV x 1 without marked effect, will trial lopressor now.
[2019-09-01] MEDS: HYDROmorphone 0.5 MG/0.5 ML SYRINGE IV ×3 (04:43→20:27)
[2019-09-01] MEDS: Ondansetron 4 MG/2 ML Vial IV (04:43)
--- NOTE | 2019-09-01 05:47 | EKG12_ITS ---
Test Reason : AM Blood Pressure : / mmHG Vent. Rate : 154 BPM Atrial Rate : 170 BPM P-R Int : 000 ms QRS Dur : 068 ms QT Int : 300 ms P-R-T Axes : 000 058 207 degrees QTc Int : 480 ms Atrial fibrillation Posterior infarct , age undetermined Abnormal ECG When compared with ECG of 01-SEP-2019 02:07, MANUAL COMPARISON REQUIRED, DATA IS UNCONFIRMED Confirmed by MONIKA MANCUSO ([id number]), manuscript editor MANDY SANDHU ([id number]) on 09/02/2019 7:30:30 AM Referred By: MARIELA Confirmed By:MONIKA MANCUSO
--- NOTE | 2019-09-01 05:55 | EKG12_ITS ---
Test Reason : ARRHYTHMIA Blood Pressure : / mmHG Vent. Rate : 183 BPM Atrial Rate : 111 BPM P-R Int : 000 ms QRS Dur : 058 ms QT Int : 256 ms P-R-T Axes : 000 066 225 degrees QTc Int : 446 ms Atrial fibrillation with premature ventricular or aberrantly conducted complexes Marked ST abnormality, possible inferior subendocardial injury Marked ST abnormality, possible anterolateral subendocardial injury Abnormal ECG When compared with ECG of 24-AUG-2019 15:02, Significant changes have occurred Confirmed by MONIKA MANCUSO ([id number]), editorial assistant MANDY SANDHU ([id number]) on 09/02/2019 7:28:18 AM Referred By: MARIELA Confirmed By:MONIKA MANCUSO
--- NOTE | 2019-09-01 06:34 | PCM.PN.SRG ---
Patient Problems: Active and Suspected Problems Altered mental status (Acute) Colitis (Acute) Constipation (Acute) Large bowel obstruction (Acute) Subjective: Patient started to have A. fib RVR overnight. She is not complaining of severe abdominal pain. She is still having nausea. - Physical Exam Vitals/I&O's: Vital Signs Temp Pulse Resp BP Pulse Ox 97.2 F L 152 H 17 127/102 H 91 09/01/19 04:45 09/01/19 06:06 09/01/19 06:06 09/01/19 06:06 09/01/19 06:06 Oxygen Flow Rate (L/min) 5 Oxygen Delivery Method Nasal Cannula Weight: 178 lb 9.191 oz Body Mass Index (BMI) 27.8 Finger Stick Blood Glucose 86 Intake and Output for Last 24 Hours 08/30/19 08/31/19 09/01/19 23:59 23:59 23:59 Intake Total 2232.16 / 2232.16 978.25 / 978.25 208.33 / 208.33 Output Total 250 / 250 300 / 300 175 / 175 Balance 1981.16 / 1981.16 678.25 / 678.25 33.33 / 33.33 General: Alert, Oriented x3 Lungs: Normal air movement Abdomen: Soft, Non-Distended Microbiology Past 72 Hours 08/30/19 12:00 Sputum, Expectorated/Coughed Gram Stain - Final 08/30/19 12:00 Sputum, Expectorated/Coughed Respiratory Culture - Preliminary Culture exhibits no growth. Laboratory Results 08/30/19 05:42: Diff Path Review Reviewed 08/31/19 06:00: Sodium 142, Potassium 3.4 L, Chloride 111 H, Carbon Dioxide 25.0, Anion Gap 6, BUN 15, Creatinine 0.66, Estim Creat Clear Calc 79.55, Est GFR (MDRD) Af Amer 116, Est GFR (MDRD) Non-Af 96, BUN/Creatinine Ratio 22.8 H, Glucose 180 H, Calcium 7.8 L 08/31/19 11:52: POC Glucose 93 08/31/19 16:50: POC Glucose 81 08/31/19 23:26: POC Glucose 104 Current Medications Atorvastatin Calcium (Lipitor) 80 mg PO QHS AARON Last Admin: 08/31/19 21:10 Dose: Not Given Documented by: Chlorhexidine Gluconate () 1 each TOPICAL DAILY [facility] Last Admin: 08/31/19 11:53 Dose: Not Given Documented by: Enoxaparin Sodium (Lovenox) 40 mg SC DAILY [facility] Last Admin: 08/31/19 09:58 Dose: 40 mg Documented by: Hydromorphone HCl (Dilaudid Inj) 0.5 mg IV Q3H PRN PRN PRN Reason: pain -04/01 Last Admin: 09/01/19 04:43 Dose: 0.5 mg Documented by: Sodium Chloride () 250 mls @ 15 mls/hr IV .[id number] PRN PRN Reason: Saline Flush Last Infusion: 08/31/19 19:59 Dose: Infused Documented by: Sodium Chloride () 250 mls @ 15 mls/hr IV .[id number] PRN PRN Reason: Additional IVPB Infusion Pantoprazole Sodium 40 mg/ (Sodium Chloride) 110 mls @ 330 mls/hr IV Q12 AARON Last Infusion: 08/31/19 21:40 Dose: Infused Documented by: Sodium Chloride () 500 mls @ 15 mls/hr IV PRN PRN PRN Reason: Blood Transfusion Last Infusion: 09/01/19 05:35 Dose: 0 mls/hr Documented by: Piperacillin Sod/Tazobactam (Sod 3.375 gm/ Sodium Chloride) 50 mls @ 12.5 mls/hr IV Q8 [facility] Last Admin: 09/01/19 05:20 Dose: 12.5 mls/hr Documented by: Diltiazem HCl 125 mg/ Dextrose 125 mls @ 5 mls/hr IV .Q25H AARON; Protocol Last Titration: 09/01/19 06:06 Dose: 15 mg/hr, 15 mls/hr Documented by: Amiodarone HCl 360 mg/ (Dextrose) 200 mls @ 33.333 mls/hr CONT INF .Q6H AARON Stop: 09/01/19 12:28 Amiodarone HCl 360 mg/ (Dextrose) 200 mls @ 16.667 mls/hr CONT INF .Q12H AARON Stop: 09/02/19 06:28 Insulin Human Lispro (Humalog Kwikpen (Bkc)) 0 unit SC Q6 [facility]; Protocol Last Admin: 09/01/19 05:22 Dose: Not Given Documented by: Melatonin (Melatonin) 3 mg PO QHS PRN PRN PRN Reason: INSOMNIA Ondansetron HCl (Zofran) 4 mg IV Q8H PRN PRN PRN Reason: NAUSEA/VOMITING Last Admin: 09/01/19 04:43 Dose: 4 mg Documented by: Prochlorperazine Edisylate (Compazine Iv) 10 mg IV Q4H PRN PRN PRN Reason: NAUSEA/VOMITING Last Admin: 08/31/19 18:02 Dose: 10 mg Documented by: Sodium Chloride () 10 - 40 ml IV UD PRN PRN Reason: SALINE FLUSH Last Admin: 09/01/19 04:44 Dose: 20 ml Documented by: Medical Necessity - Tobacco Use Smoking Status: Current every day smoker Tobacco Use: Cigarettes Assessment/Plan All Active Problems Sigmoid diverticulitis (Acute) Failure of outpatient treatment (Acute) Altered mental status (Acute) Colitis (Acute) Constipation (Acute) Large bowel obstruction (Acute) 64-year-old female with colonic obstruction status post left hemicolectomy and colostomy 1. The patient had A. fib RVR new onset overnight. She is making good stool but did not tolerate much clear liquid yesterday due to nausea. Her abdomen is soft with normal amount of expected tenderness at the incision. Her stoma is pink with stool output. If her white count continues to be elevated today I will order a CT scan to ensure that there is not intra-abdominal process causing the A. fib RVR. Clark Lomax MD Pager: [facility] [address] [place] [address], [address] [place] [address] Office:
[2019-09-01 06:51] LABS: Bedside Glucose 142 mg/dL (70-110)
[2019-09-01 06:54] LABS: Absolute Lymphocyte Count 1.31 X10^3/uL (0.83-4.51); Basophil# 0.04 X10^3/uL; Basophil% 0.3 % (0-1); Eosinophil# 0.08 X10^3/uL; Eosinophils% 0.5 % (0-5); Hematocrit 30.1 % (37-47); Hemoglobin 9.4 g/dL (12.0-15.0); Lymphocyte # 1.31 X10^3/ul (4.0); Lymphocyte % 8.5 % (19-41); Mean Corp Hgb Conc 31.2 g/dL (32-36); Mean Corpuscular Hgb 27.3 pg (27.0-32.0); Mean Corpuscular Volume 87.5 fL (81-99); Mean Platelet Vol. 9.6 fl (6.2-12.0); Monocyte# 1.49 X10^3/uL; Monocyte% 9.7 % (0-10); NRBC Flagged by Analyzer 0 % (0-5); Neutrophil # 12.03 X10^3/uL (2.7-7.7); Platelet Count 545 K/mm3 (150-450); RBC Distribution Width SD 54.5 fl (35.1-43.9); Red Blood Count 3.44 M/mm3 (4.2-5.4); White Blood Count 15.4 K/mm3 (4.4-11.0)
--- NOTE | 2019-09-01 06:56 | CT_ITS ---
STUDY: CT ABDOMEN AND PELVIS WITH CONTRAST REASON FOR EXAM: Female, 64 years old. SOB, abdominal pain, recent colectomy with colostomy 3/5, nausea, recent esophageal dilatation d/t trouble swallowing. Prior hysterectomy, appendectomy, bladder suspension. RADIATION DOSAGE (If Supplied By Facility): CTDIvol = ( 18.42 ) mGy, DLP = ( 1842.50 ) mGycm TECHNIQUE: Transaxial images were obtained from the dome of the diaphragm to the symphysis pubis with oral contrast. Oral and amp; IV Gastrografin and amp; 100mL Isovue-370 was administered. Sagittal and coronal images were reconstructed. Individualized dose optimization techniques were used for this CT. COMPARISON: Comparison is made with prior examination dated August 24, 2019. FINDINGS: There is a small right pleural effusion with right basilar atelectasis and/or infiltrate with groundglass appearance in both lungs. Focal infiltrate at the left lung base as well. These are new as compared to prior study. Coronary artery calcification. Normal liver. There are surgical clips in the gallbladder fossa consistent with a prior cholecystectomy. Normal spleen. There is diffuse atrophy of the pancreas. Normal bilateral adrenal glands. Normal right kidney. Normal left kidney. There is thickening of the left Gerotas fascia with a small amount of fluid in the anterior pararenal space. There is also evidence of a small amount of fluid in the paracolic gutters bilaterally. Normal visualized stomach. A colostomy is seen in the left anterior abdominal wall. Postoperative changes seen in the anterior abdominal wall. Fluid-filled right hemicolon with mild degree of dilated small bowel loops with fluid. There are surgical clips in the region of the appendix consistent with a prior appendectomy. Normal abdominal aorta. Normal inferior vena cava. Increased markings are seen in the peritoneal fat in the left upper and left mid abdomen most likely secondary to the recent surgical intervention. Normal urinary bladder. There is absence of the uterus consistent with a prior hysterectomy. A small amount of fluid is seen in the pelvis. Postoperative abdominal changes. There are degenerative changes of the visualized lumbar spine. CT/Abdomen/Pelvis WITH Contrast IMPRESSION: Status post colostomy in the left anterior abdominal wall. Postoperative changes in the peritoneal fat in the left upper and mid mesenteric fat. Left anterior pararenal space fluid as well as fluid in the paracolic gutters and in the pelvis. Fluid filled right hemicolon as well as mild fluid-filled dilated small bowel loops in the lower abdomen and pelvis. Electronically Signed: Delta Medina, at 9:49 EDT , Service support ,
[2019-09-01] MEDS: Amiodarone 360 MG in Dextrose 5% Viaflo Bag 192.8 ML 33.3 MG CONT INF ×3 (06:57→21:54)
[2019-09-01 07:20] LABS: Anion Gap 9 (5-15); BUN 14 mg/dL (7-18); BUN/Creat Ratio 21.8 RATIO (10-20); Chloride 108 mmol/L (98-107); Creatinine, Serum 0.64 mg/dL (0.55-1.02); EST Glomerular Filtration Rate 98 mL/min (>60); Est Glom Filt Rate - Afr Amer 119 mL/min (>60); Estimated Creatinine Clearance 82.04 ml/min; Glucose 144 mg/dL (74-106); Magnesium 1.7 mg/dL (1.6-2.6); Potassium 3.3 mmol/L (3.5-5.1); Sodium Level 140 mmol/L (136-145); Thyroid Stim Hormone (TSH) 2.86 uIU/mL (0.358-3.74)
--- NOTE | 2019-09-01 08:07 | CT_ITS ---
STUDY: CTA CHEST REASON FOR EXAM: Female, 64 years old. SOB, abdominal pain, recent colectomy with colostomy 3/5, nausea, recent esophageal dilatation d/t trouble swallowing. Prior hysterectomy, appendectomy, bladder suspension. RADIATION DOSAGE (If Supplied By Facility): CTDIvol = ( 18.42 ) mGy, DLP = ( 1842.50 ) mGycm TECHNIQUE: The examination was performed with the intravenous administration of 75mL Isovue 370. Post-processing of the angiographic images was performed, with multiplanar reformation and 3D reconstruction. Individualized dose optimization techniques were used for this CT. COMPARISON: Comparison is made with prior examination dated December 28, 2017. FINDINGS: Normal enhancement of the main pulmonary artery and right and left pulmonary arteries. Normal enhancement of the bilateral peripheral pulmonary arteries. There is no demonstrated pulmonary embolism. Normal thoracic aorta and visualized great vessels. There is no demonstrated aortic dissection. There are calcifications of the coronary arteries. Normal mediastinum. Calcified right hilar lymph node. Normal visualized trachea and bronchi. The lungs are well expanded. Multiple areas of groundglass appearance in both lungs especially in the right upper and right middle lobes. There is also evidence of a small right pleural effusion with right basilar atelectasis and/or infiltration as well as mild atelectasis and/or infiltrate at the left lung base. Normal chest wall structures. There are degenerative changes of thoracic spine. Findings of the abdomen discussed on a separate CT scan of the abdomen examination. CT/CTA Chest W/WO Contrast IMPRESSION: There is no evidence of pulmonary embolism. Diffuse bilateral groundglass appearance worse in the right lung with a small right pleural effusion with underlying atelectasis and/or infiltrate as well as mild infiltration and/or atelectasis at the left lung base. Electronically Signed: Delta Medina, at 9:53 EDT , Service support ,
[2019-09-01 08:33] LABS: Cholesterol 75 mg/dL (200); High Density Lipoprotein 21 mg/dL; T4 Free Direct 1.34 ng/dL (0.76-1.46); Thyroid Stim Hormone (TSH) 2.76 uIU/mL (0.358-3.74); Triglycerides 141 mg/dL; Very Low Density Lipoprotein 28 mg/dL (5-40)
[2019-09-01] MEDS: proCHLORPERazine 10 MG/2 ML Vial IV (08:41)
--- NOTE | 2019-09-01 09:47 | NURSING ---
Had talked with RYAN Cronin this am. plan to change the wound VAC and ostomy appliance later today with Joelle. pt had new onset Afib with RVR last evening. WBC slightly increased today and is still having some nausea. CT scans of the chest and abdomen were ordered this am.
--- NOTE | 2019-09-01 10:04 | NURSING ---
called son let him know orf transfer to icu
--- NOTE | 2019-09-01 10:25 | PCM.CONS.C ---
Problem List (1) Atrial fibrillation Status: Acute (2) Tobacco dependence syndrome Status: Chronic Reason for Consult Date of Consultation: 09/01/19 Reason for Consultation: Fibrillation with rapid ventricular response History of Present Illness: The patient is a 64 year old F, with diabetes, hypertension, coronary disease status post stent to the [facility] in 2013, apparently had repeat catheterization in 2013 which reportedly showed wide-open stent, previous patient of Dr. Pino, currently on aspirin and Plavix therapy. She has no history of atrial fibrillation. She was recently admitted for small bowel obstruction requiring abdominal surgery and colostomy placement. Apparently the colostomy site became ischemic, requiring her to have a revision of the colostomy with subsequent wound VAC. The patient was recovering from this, and underwent 2D echo with Doppler on 08/24/2019 with the following results:The estimated ejection fraction is 65 %. Stage 1 diastolic dysfunction. The left atrium is mildly enlarged. Mild (1+) tricuspid valve insufficiency. Right ventricular systolic pressure estimated to be 55 mmHg. Moderate pulmonary hypertension. There is no comparison study available. Patient condition deteriorated acutely overnight developed atrial fibrillation with rapid ventricular response as well as dyspnea on exertion and shortness of breath and some mild chest pressure. The patient underwent CT a of her chest today which was negative for pulmonary embolism but demonstrated bilateral small pleural effusions and possible pulmonary infiltrates. Currently the patient has conversational dyspnea, is short of breath, tachycardic despite having IV Cardizem and IV amiodarone drips. Her EKG demonstrated fibrillation with rapid ventricular response and diffuse inferior lateral ST segment depression. Initial troponin 0 0.166. Repeat troponins pending. , [] Past Medical History Allergies/Adverse Reactions: Allergies promethazine HCl [From Phenergan] Adverse Reaction (Verified 08/24/19 13:16) Vomiting BEE STING Allergy (Uncoded 08/24/19 13:16) Anaphylaxis Home Medications: Ambulatory Orders Medication Instructions Recorded Pantoprazole Sodium [Protonix] 40 mg PO DAILY 03/21/17 L.acidoph,Paracasei, B.lactis 1 cap PO DAILY 12/30/17 [Probiotic] Lisinopril [Zestril] 10 mg PO DAILY 12/30/17 Metoprolol(XL)Succ [Toprol Xl 25 mg PO DAILY 12/30/17 (Beta Funmi)] Duloxetine Hcl [Cymbalta] 60 mg PO DAILY 01/25/19 Bupropion HCl [Bupropion HCl Sr] 150 mg PO BID 01/27/19 Clopidogrel Bisulfate [Clopidogrel] 75 mg PO DAILY 01/27/19 Ezetimibe 10 mg PO DAILY 01/27/19 Fenofibrate 54 mg PO DAILY 01/27/19 Amox/Clavulanate Tablet [Augmentin 875 mg PO Q12H #20 tab 08/21/19 Tablet] Ondansetron [Zofran Odt] 4 mg PO Q8H PRN PRN #10 tab 08/21/19 Doxepin HCl 100 mg PO QHS 08/24/19 Duloxetine HCl 30 mg PO DAILY 08/24/19 Lubiprostone [Amitiza] 24 mcg PO BID 08/24/19 Ropinirole HCl [Ropinirole ER] 4 mg PO QHS 08/24/19 Past Medical History (Chronic Problems): Chronic Problems Tobacco dependence syndrome (Chronic) History of Clostridium difficile infection (Chronic) Surgical History: appendectomy, cholecystectomy, hysterectomy Psychiatric History: Anxiety, Depression 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 Lives: Spouse/ Significant Other Smoking Status: Current every day smoker Tobacco Use: Cigarettes Alcohol: None Drugs: None Review of Systems - Review of Systems General: Denies: Fever, Night Sweats, Fatigue Cardiovascular: Reports: Chest Discomfort, Chest Discomfort at Rest, Shortness of Breath, Shortness of Breath at Rest. Denies: Orthopnea, PND, Peripheral Edema, Palpitations, Lightheadedness, Dizziness, Near Syncope, Syncope Respiratory: Denies: Cough, Sputum Production, Hemoptysis Gastrointestinal: Denies: Hematemesis, Hematochezia, Melena Genitourinary: Denies: Dysuria, Hematuria Skin: Denies: Rash Subjectve: Patient is in mild respiratory distress with conversational dyspnea, tachycardic with atrial fibrillation with RVR despite IV amiodarone and IV Cardizem drip. In addition the patient complains of abdominal fullness, and mild abdominal tenderness. Objective: Vital Signs Temp Pulse Resp BP Pulse Ox 97.8 F 131 H 20 H 148/107 H 96 09/01/19 08:00 09/01/19 09:00 09/01/19 09:00 09/01/19 09:00 09/01/19 09:00 Oxygen Flow Rate (L/min) 5 Oxygen Delivery Method Nasal Cannula Weight: 178 lb 9.191 oz Body Mass Index (BMI) 27.8 Finger Stick Blood Glucose 86 Intake and Output for Last 24 Hours 08/30/19 08/31/19 09/01/19 23:59 23:59 23:59 Intake Total 2232.16 / 2232.16 978.25 / 978.25 473.10 / 473.10 Output Total 250 / 250 300 / 300 175 / 175 Balance 1981. / 678.25 / 678.25 298.10 / 298.10 General: Awake, Alert, Oriented x 3 HEENT: PERRL, EOMI, Sclera Non Icteric Neck: Supple, Good ROM, No Lymph Node Enlargement Lungs: Clear to auscultation Cardiovascular: Irregular Rhythm, Normal S2, No Rubs, No Gallops Murmur Murmur: Grade 2/6 Vascular: No Carotid Bruits, Normal Femoral Pulses, Normal Radial Pulses, Normal Dorsalis Pedal Pulse, Normal Posterior Tibial Pulses Abdomen: Bowel Sounds Present, Soft, Non Tender, No HSM, No Organomegaly Extremities: No Cyanosis, No Clubbing, No edema Neurological: No Focal Motor or Sensory Deficit 09/01/19 06:10: WBC 15.4 H, RBC 3.44 L, Hgb 9.4 L, Hct 30.1 L, MCV 87.5, MCH 27.3, MCHC 31.2 L, Plt Count 545 H, MPV 9.6, Immature Gran % (Auto) 3.000 H, Neut % (Auto) 78.0 H, Lymph % (Auto) 8.5 L, [place] % (Auto) 9.7, Eos % (Auto) 0.5, Baso % (Auto) 0.3, Absolute Neuts (auto) 12.0 H, Nucleated RBC % 0 09/01/19 06:10: Sodium 140, Potassium 3.3 L, Chloride 108 H, Carbon Dioxide 23.0, Anion Gap 9, BUN 14, Creatinine 0.64, Est GFR (MDRD) Af Amer 119, Est GFR (MDRD) Non-Af 98, BUN/Creatinine Ratio 21.8 H, Glucose 144 H, Calcium 8.0 L, Magnesium 1.7 09/01/19 06:10: Triglycerides 141, Cholesterol 75, LDL Cholesterol 26, VLDL Cholesterol 28, HDL Cholesterol 21 L 09/01/19 08:30: Troponin I 0.166 H Rhythm: EKG: ECHO: Stress Test: Cardiac Cath: PCI: CT Surgery: Holter monitor: EPS: PPM: CXR: Chest CT Scan: Assessment/Plan 1. Atrial fibrillation with rapid ventricular response: The patient developed new onset rapid ventricular response secondary to atrial fibrillation, and CT scan demonstrated no evidence of pulmonary embolism at this time. I recommend the patient continue on IV Cardizem drip, IV amiodarone drip for at least 1 day if not 2 days, and either IV heparin or full dose subcu Lovenox to prevent against thromboembolism and CVA. The patient is in no condition to undergo a MO for MO guided DC cardioversion, although she has had no evidence of atrial fibrillation on this admission. The patient may require DC cardioversion if we are unable to get her heart rate under better control. I would prefer to have at least 24 hours of IV amiodarone infusion in order to increase her chances for successful DC cardioversion and maintenance of sinus rhythm. In addition I recommend that she undergo troponin analysis every 6 hours x3 sets. She will continue baby aspirin and Plavix. Depending upon the elevation of troponin, she may require a diagnostic coronary undergrad when she is recovered from her abdominal surgery. 2. Dyspnea: The patient on echocardiogram demonstrated relatively intact LV function with at least moderate pulmonary pretension with an RVSP of 55 mmHg. This puts her at increased risk for atrial fibrillation going forward. In addition she has conversational dyspnea superimposed on tachycardia and would recommend consideration of dance choreographer consultation or movement to the ICU in case the patient's condition deteriorates. 3. Thank you very much for the opportunity to participate in the cardiac care of your patient. Consultation time took place between 8 AM and 8:30 AM. Inpatient E&M: [id number] Init Hosp L2
--- NOTE | 2019-09-01 11:15 | NURSING ---
report called to icu Krystal at [phone] belongongs with patient tried to insert ng without success
--- NOTE | 2019-09-01 11:30 | RAD_ITS ---
STUDY: X-RAY - ABDOMEN/PELVIS REASON FOR EXAM: Female, 64 years old. NG PLACEMENT TECHNIQUE: Single AP view of the abdomen / pelvis. COMPARISON: None. FINDINGS: Nasogastric tube coiled in the left upper quadrant likely in the body the stomach. There is an unremarkable bowel gas pattern. The visualized liver, spleen and kidneys are grossly normal in size and morphology. Normal soft tissue structures. Normal visualized osseous structures. RAD/Chest 1 View (Portable) IMPRESSION: Nasogastric tube coiled in left upper quadrant likely in the body the stomach. Electronically Signed: Skinny Good MD at 11:52 EDT Tel , Service support ,
--- NOTE | 2019-09-01 11:46 | PN_ITS ---
Patient Problems: Active and Suspected Problems Altered mental status (Acute) Colitis (Acute) Constipation (Acute) Large bowel obstruction (Acute) Atrial fibrillation (Acute) Subjective: Patient seen and examined. Patient developed fib with RVR overnight necessitating starting of Cardizem drip. Heart rate was still not controlled and so amiodarone drip was added on. Patient started vomiting this morning as well. She looks very lethargic and weak. She denied any shortness of breath, palpitations or dizziness, abdominal pain or diarrhea. She had bilious emesis this morning. Cardiology consulted and decision made to transfer patient to ICU for closer monitoring. Some vitals reviewed. Heart rate is in the 120s and 130 s and respiratory rate is 21. She has remained afebrile with temperature of 97.9. Potassium is 3.3 today WBC has trended up to 15.4. Vitals/I&O's: Vital Signs Temp Pulse Resp BP Pulse Ox 97.9 F 122 H 21 H 149/91 H 96 09/01/19 10:13 09/01/19 10:13 09/01/19 10:13 09/01/19 10:13 09/01/19 10:13 Oxygen Flow Rate (L/min) 5 Oxygen Delivery Method Nasal Cannula Weight: 178 lb 9.191 oz Body Mass Index (BMI) 27.8 Finger Stick Blood Glucose 86 Intake and Output for Last 24 Hours 08/30/19 08/31/19 09/01/19 23:59 23:59 23:59 Intake Total 2232.16 / 2232.16 978.25 / 978.25 491.35 / 491.35 Output Total 250 / 250 300 / 300 175 / 175 Balance 1981.16 / 1981.16 678.25 / 678.25 316.35 / 316.35 General: Alert, Oriented x3, Cooperative, No apparent distress, lethargic HEENT: Atraumatic, PERRLA, EOMI, Normocephalic Oral: Dry Mucosa Neck: Supple, No JVD, Negative Carotid Bruits Lungs: Clear to auscultation, Normal air movement, No rhonchi, No wheeze Cardiovascular: Normal S1, Normal S2, No murmurs, tachycardic, irregular rate and rhythm, Afib with RVR Abdomen: Bowel Sounds Present, Soft, - - minimal generalised tenderness, no guarding or rebound tenderness. Colostomy bag contains scant stool. Surgical site incision healing well. Extremities: No clubbing, No cyanosis, No edema, Capillary Refill Less than 3 Seconds Skin: No rashes, No breakdown Musculoskeletal: No Tenderness to Palpation of Joints or Extremities Lymphatic: No Cervical, Supraclavicular, or Inguinal Adenopathy Neurological: Cranial nerves II-XII grossly intact, Neuro grossly intact, Motor Exam 5/5 strength throughout Psych/Mental Status: Normal Affect, Appropriate, Alert and oriented to time, place, person, mood and affect Microbiology Past 72 Hours 08/30/19 12:00 Sputum, Expectorated/Coughed Gram Stain - Final 08/30/19 12:00 Sputum, Expectorated/Coughed Respiratory Culture - Preliminary Appears to be normal respiratory derrick. Further studies to follow. Laboratory Results 08/31/19 11:52: POC Glucose 93 08/31/19 16:50: POC Glucose 81 08/31/19 23:26: POC Glucose 104 09/01/19 05:21: POC Glucose 142 H 09/01/19 06:10: WBC 15.4 H, RBC 3.44 L, Hgb 9.4 L, Hct 30.1 L, MCV 87.5, MCH 27.3, MCHC 31.2 L, RDW Std Deviation 54.5 H, RDW Coeff of Wilmar 17.0 H, Plt Count 545 H, MPV 9.6, Immature Gran % (Auto) 3.000 H, Neut % (Auto) 78.0 H, Lymph % (Auto) 8.5 L, [place] % (Auto) 9.7, Eos % (Auto) 0.5, Baso % (Auto) 0.3, Absolute Neuts (auto) 12.0 H, Absolute Lymphs (auto) 1.31, Nucleated RBC % 0 09/01/19 06:10: Sodium 140, Potassium 3.3 L, Chloride 108 H, Carbon Dioxide 23.0, Anion Gap 9, BUN 14, Creatinine 0.64, Estim Creat Clear Calc 82.04, Est GFR (MDRD) Af Amer 119, Est GFR (MDRD) Non-Af 98, BUN/Creatinine Ratio 21.8 H, Glucose 144 H, Calcium 8.0 L, Magnesium 1.7, TSH 2.86 09/01/19 06:10: Triglycerides 141, Cholesterol 75, LDL Cholesterol 26, VLDL Cholesterol 28, HDL Cholesterol 21 L, TSH 2.76, Free T4 1.34 09/01/19 08:30: Troponin I 0.166 H 09/01/19 11:39: Troponin I Pending Diagnostic Data Brain CT 08/24/19 14:45 IMPRESSION: No acute intracranial abnormality. Chronic ischemic and atrophic changes. Electronically Signed: Theo James, at 17:05 EST Tel , Service support , Brain MRI 08/25/19 09:00 IMPRESSION: Involutional changes of the brain, as described above. Electronically Signed: Carlitos Crooks, at 14:50 EST Tel , Service support , Head MRA 08/25/19 09:00 IMPRESSION: Normal MRA of the head Electronically Signed: Carlitos Crooks, at 14:35 EST Tel , Service support , Neck MRA 08/25/19 09:00 IMPRESSION: Normal bilateral cervical carotid and vertebral arteries. Electronically Signed: Carlitos Crooks, at 15:40 EST Tel , Service support , Abdomen/Pelvis CT 09/01/19 06:56 IMPRESSION: Status post colostomy in the left anterior abdominal wall. Postoperative changes in the peritoneal fat in the left upper and mid mesenteric fat. Left anterior pararenal space fluid as well as fluid in the paracolic gutters and in the pelvis. Fluid filled right hemicolon as well as mild fluid-filled dilated small bowel loops in the lower abdomen and pelvis. Electronically Signed: Delta Medina, at 9:49 EDT , Service support , Chest CTA 09/01/19 08:07 IMPRESSION: There is no evidence of pulmonary embolism. Diffuse bilateral groundglass appearance worse in the right lung with a small right pleural effusion with underlying atelectasis and/or infiltrate as well as mild infiltration and/or atelectasis at the left lung base. Electronically Signed: Delta Adam, at 9:53 EDT , Service support , Chest X-Ray 09/01/19 11:30 IMPRESSION: Nasogastric tube coiled in left upper quadrant likely in the body the stomach. Electronically Signed: Skinny Good MD at 11:52 EDT Tel , Service support , Current Medications Atorvastatin Calcium (Lipitor) 80 mg PO QHS [facility] Last Admin: 08/31/19 21:10 Dose: Not Given Documented by: Chlorhexidine Gluconate () 1 each TOPICAL DAILY [facility] Last Admin: 09/01/19 11:06 Dose: Not Given Documented by: Enoxaparin Sodium (Lovenox) 40 mg SC BID [facility] Furosemide (Lasix) 40 mg IV BID@1000,1800 [facility] Stop: 09/02/19 18:01 Hydromorphone HCl (Dilaudid Inj) 0.5 mg IV Q3H PRN PRN PRN Reason: pain 6-04/01 Last Admin: 09/01/19 04:43 Dose: 0.5 mg Documented by: Sodium Chloride () 250 mls @ 15 mls/hr IV .[id number] PRN PRN Reason: Saline Flush Last Infusion: 08/31/19 19:59 Dose: Infused Documented by: Sodium Chloride () 250 mls @ 15 mls/hr IV .[id number] PRN PRN Reason: Additional IVPB Infusion Pantoprazole Sodium 40 mg/ (Sodium Chloride) 110 mls @ 330 mls/hr IV Q12 [facility] Last Infusion: 08/31/19 21:40 Dose: Infused Documented by: Sodium Chloride () 500 mls @ 15 mls/hr IV PRN PRN PRN Reason: Blood Transfusion Last Infusion: 09/01/19 09:43 Dose: 15 mls/hr Documented by: Piperacillin Sod/Tazobactam (Sod 3.375 gm/ Sodium Chloride) 50 mls @ 12.5 mls/hr IV Q8 [facility] Last Infusion: 09/01/19 09:43 Dose: Infused Documented by: Diltiazem HCl 125 mg/ Dextrose 125 mls @ 5 mls/hr IV .Q25H [facility]; Protocol Last Titration: 09/01/19 10:13 Dose: 15 mg/hr, 15 mls/hr Documented by: Amiodarone HCl 360 mg/ (Dextrose) 200 mls @ 33.333 mls/hr CONT INF .Q6H [facility] Stop: 09/01/19 12:28 Last Infusion: 09/01/19 09:00 Dose: 1 mg/min, 33.3 mls/hr Documented by: Amiodarone HCl 360 mg/ (Dextrose) 200 mls @ 16.667 mls/hr CONT INF .Q12H [facility] Stop: 09/02/19 06:28 Potassium Chloride () 10 meq in 100 mls @ 100 mls/hr IV BOLUS Q1H [facility] Stop: 09/01/19 15:59 Insulin Human Lispro (Humalog Kwikpen (Bkc)) 0 unit SC Q6 [facility]; Protocol Last Admin: 09/01/19 05:22 Dose: Not Given Documented by: Melatonin (Melatonin) 3 mg PO QHS PRN PRN PRN Reason: INSOMNIA Ondansetron HCl (Zofran) 4 mg IV Q8H PRN PRN PRN Reason: NAUSEA/VOMITING Last Admin: 09/01/19 04:43 Dose: 4 mg Documented by: Prochlorperazine Edisylate (Compazine Iv) 10 mg IV Q4H PRN PRN PRN Reason: NAUSEA/VOMITING Last Admin: 09/01/19 08:41 Dose: 10 mg Documented by: Sodium Chloride () 10 - 40 ml IV UD PRN PRN Reason: SALINE FLUSH Last Admin: 09/01/19 08:41 Dose: 20 ml Documented by: STROKE Vital Signs/Narrative: Vital Signs Temp Pulse Resp BP Pulse Ox 09/01/19 10:13 97.9 F 122 H 21 H 149/91 H 96 09/01/19 09:00 131 H 20 H 148/107 H 96 09/01/19 08:00 97.8 F 121 H 20 H 138/98 H 95 Medical Necessity - Tobacco Use Smoking Status: Current every day smoker Tobacco Use: Cigarettes Assessment/Plan All Active Problems Sigmoid diverticulitis (Acute) Failure of outpatient treatment (Acute) Altered mental status (Acute) Colitis (Acute) Constipation (Acute) Large bowel obstruction (Acute) Atrial fibrillation (Acute) 1. Afib with RVR * patient developed afib with RVR overnight with associated worsening shortness of breath. * was started on cardizem drip, but still required addition of amiodarone drip due to persistent Afib * initial troponin checked this morning is 0.166; will cycle * cardiology consulted * on lovenox 40mg bid for anticoagulation * patient emergently transferred to ICu * CTA of chest was negative for any PE and showed diffuse bilateral, groundglass appearance worse in the right lung with a small right pleural effusion and underlying atelectasis and/or infiltrate as well as mild infiltrate and/or atelectasis of the left lung base. * Per cardiology, she may require DC cardioversion if we are unable to get her heart rate under better control. To have at least 24 hours of IV amiodarone infusion in order to increase her chances of DC cardioversion. * Continue on aspirin and Plavix. She may require diagnostic coronary angiogram once she has recovered from abdominal surgery, per cardiology. * pulmonology consulted 2. Acute hypoxic respiratory failure * A. fib with RVR is contributing though CTA shows groundglass appearance was in the right lung with small right pleural effusion as well as in the left lung. * Currently on 5 L of oxygen and patient is tachypneic. * Of note, fluids were stopped yesterday because patient was in positive balance by about 10 L. * I think she may benefit from diuresis and so we will start diuresing patient with IV Lasix. BNP was also elevated at 330. * 2D echo done earlier in the admission showed EF of 65% with stage I diastolic dysfunction and mildly enlarged left atrium with RVSP of 55 mmHg. 3. sigmoid stricture * s/p loop transverse colostomy on 08/25/2019 and exploratory laparotomy with extensive adhesiolysis, left colectomy w Hardeep procedure and end transverse colostomy on 08.26.2019 * today is POD 6 * Patient started vomiting today. CT of the abdomen and pelvis done showed fluid-filled right hemicolon as well as small fluid-filled dilated small bowel loops in the lower abdomen and pelvis with left anterior upper renal space filled with fluid as well as the paracolic gutters and in the pelvis. * WBC has trended back upwards around 15. Per discussion with general surgery, keep patient n.p.o. and insert NG tube. * on IV zosyn. * 4. Acute blood loss anemia * due to surgery * s/p transfusion of 4 units of PRBCs. * Hb today is 9.4 * 5. Hypokalemia: K is 3.3 today. Will replace and monitor. * 6. Chronic dysphagia: has had dilatations done with Dr Fallon. Stable. DVT prophylaxis: now on lovenox 40mg bid Prophylaxis: IV pantoprazole Inpatient E&M: 95282 [facility] L3
[2019-09-01] MEDS: Furosemide 40 MG/4 ML Vial IV ×2 (12:41→18:22)
[2019-09-01] MEDS: Enoxaparin 40 MG/0.4 ML Syringe SC ×2 (12:43→21:31)
[2019-09-01] MEDS: Potassium Chloride 10mEq/100mL 10 MEQ/100 ML IV.SOLN. 100 MEQ IV BOLUS ×4 (12:46→18:19)
[2019-09-01 13:01] LABS: Bedside Glucose 132 mg/dL (70-110)
--- NOTE | 2019-09-01 13:10 | PN_ITS ---
Subjective: The patient was seen and examined at the bedside this morning. Events from the last 24 hours have been reviewed. The patient is currently afebrile, hemodynamically stable and maintaining appropriate oxygen saturations on 5 L/min via nasal cannula. The patient was transferred from the progressive care unit this morning after she developed atrial fibrillation with RVR overnight. The patient was initially placed on a Cardizem infusion, which did not provide adequate rate control. Therefore, amiodarone was ordered as well. The patient's white blood cell count has been persistently between 13 and 19 since August 27. The patient is currently documented to be overall net +10.6 L for the hospital admission. Objective: The patient's most recent lab work, culture data and imaging studies have all been personally reviewed. Sputum culture from August 29 appears to be normal respiratory derrick. CTA chest revealed no evidence for pulmonary embolism. There was bilateral groundglass changes worse on the right with a small right pleural effusion. Surface echocardiogram from August 24 revealed stage I diastolic dysfunction with an ejection fraction of 65%. Right ventricular systolic pressure was estimated to be 55 mmHg. General: Alert, Cooperative, No apparent distress HEENT: Atraumatic, PERRLA, Normocephalic Oral: No Gingival or Mucosal Lesions/ Ulcerations Neck: Supple, No Nodes, Trachea Midline Lungs: Normal air movement, Rales Cardiovascular: Normal S1, Normal S2, Irregular Rate, Tachycardic Abdomen: Bowel Sounds Present, Soft, Non Tender, - - + Ostomy Extremities: No clubbing, No cyanosis, No edema Skin: No breakdown Musculoskeletal: No Tenderness to Palpation of Joints or Extremities Lymphatic: No Cervical, Supraclavicular, or Inguinal Adenopathy Neurological: Neuro grossly intact Psych/Mental Status: Normal Affect, Appropriate Vital Signs Temp Pulse Resp BP Pulse Ox 97.6 F L 110 H 23 H 125/87 H 97 09/01/19 12:00 09/01/19 12:00 09/01/19 12:00 09/01/19 12:09/01/19 12:00 Oxygen Flow Rate (L/min) 5 Oxygen Delivery Method Nasal Cannula Weight: 178 lb 9.191 oz Body Mass Index (BMI) 27.8 Finger Stick Blood Glucose 86 Intake and Output for Last 24 Hours 08/30/19 08/31/19 09/01/19 23:59 23:59 23:59 Intake Total 2232.16 / 223.16 978.25 / 978.25 518.10 / 518.10 Output Total 250 / 250 300 / 300 575 / 575 Balance 1981. 678.25 / 678.25 -56.90 / -56.90 Labs (Last 48 Hours) 08/30/19 08/30/19 08/30/19 05:42 18:16 18:46 WBC RBC Hgb Hct MCV MCH MCHC RDW Std Deviation RDW Coeff of Wilmar Plt Count MPV Immature Gran % (Auto) Neut % (Auto) Lymph % (Auto) [place] % (Auto) Eos % (Auto) Baso % (Auto) Absolute Neuts (auto) Absolute Lymphs (auto) Nucleated RBC % Diff Path Review Reviewed Sodium Potassium Chloride Carbon Dioxide Anion Gap BUN Creatinine Estim Creat Clear Calc Est GFR (MDRD) Af Amer Est GFR (MDRD) Non-Af BUN/Creatinine Ratio Glucose Calcium Magnesium 2.1 Troponin I Triglycerides Cholesterol LDL Cholesterol VLDL Cholesterol HDL Cholesterol TSH Free T4 POC Glucose 104 08/30/19 08/31/19 08/31/19 23:47 05:38 06:00 WBC 13.7 H RBC 3.08 L Hgb 8.6 L Hct 26.5 L MCV 86.0 MCH 27.9 MCHC 32.5 RDW Std Deviation 53.9 H RDW Coeff of [place] 17.1 H Plt Count 424 MPV 9.4 Immature Gran % (Auto) 2.000 H Neut % (Auto) 82.4 H Lymph % (Auto) 6.6 L [place] % (Auto) 8.8 Eos % (Auto) 0.1 Baso % (Auto) 0.1 Absolute Neuts (auto) 11.3 H Absolute Lymphs (auto) 0.90 Nucleated RBC % 0 [address] Review Sodium Potassium Chloride Carbon Dioxide Anion Gap BUN Creatinine Estim Creat Clear Calc Est GFR (MDRD) Af Amer Est GFR (MDRD) Non-Af BUN/Creatinine Ratio Glucose Calcium Magnesium Troponin I Triglycerides Cholesterol LDL Cholesterol VLDL Cholesterol HDL Cholesterol TSH Free T4 POC Glucose 112 H 206 H 08/31/19 08/31/19 08/31/19 06:00 11:52 16:50 WBC RBC Hgb Hct MCV MCH MCHC RDW Std Deviation RDW Coeff of [place] Plt Count MPV Immature Gran % (Auto) Neut % (Auto) Lymph % (Auto) [place] % (Auto) Eos % (Auto) Baso % (Auto) Absolute Neuts (auto) Absolute Lymphs (auto) Nucleated RBC % Diff Path Review Sodium 142 Potassium 3.4 L Chloride 111 H Carbon Dioxide 25.0 Anion Gap 6 BUN 15 Creatinine 0.66 Estim Creat Clear Calc 79.55 Est GFR (MDRD) Af Amer 116 Est GFR (MDRD) Non-Af 96 BUN/Creatinine Ratio 22.8 H Glucose 180 H Calcium 7.8 L Magnesium Troponin I Triglycerides Cholesterol LDL Cholesterol VLDL Cholesterol HDL Cholesterol TSH Free T4 POC Glucose 93 81 08/31/19 09/01/19 09/01/19 23:26 05:21 06:10 WBC 15.4 H RBC 3.44 L Hgb 9.4 L Hct 30.1 L MCV 87.5 MCH 27.3 MCHC 31.2 L RDW Std Deviation 54.5 H RDW Coeff of [place] 17.0 H Plt Count 545 H MPV 9.6 Immature Gran % (Auto) 3.000 H Neut % (Auto) 78.0 H Lymph % (Auto) 8.5 L [place] % (Auto) 9.7 Eos % (Auto) 0.5 Baso % (Auto) 0.3 Absolute Neuts (auto) 12.0 H Absolute Lymphs (auto) 1.31 Nucleated RBC % [address] Review Sodium Potassium Chloride Carbon Dioxide Anion Gap BUN Creatinine Estim Creat Clear Calc Est GFR (MDRD) Af Amer Est GFR (MDRD) Non-Af BUN/Creatinine Ratio Glucose Calcium Magnesium Troponin I Triglycerides Cholesterol LDL Cholesterol VLDL Cholesterol HDL Cholesterol TSH Free T4 POC Glucose 104 142 H 09/01/19 09/01/19 09/01/19 06:10 06:10 08:30 WBC RBC Hgb Hct MCV MCH MCHC RDW Std Deviation RDW Coeff of [place] Plt Count MPV Immature Gran % (Auto) Neut % (Auto) Lymph % (Auto) [place] % (Auto) Eos % (Auto) Baso % (Auto) Absolute Neuts (auto) Absolute Lymphs (auto) Nucleated RBC % Diff Path Review Sodium 140 Potassium 3.3 L Chloride 108 H Carbon Dioxide 23.0 Anion Gap 9 BUN 14 Creatinine 0.64 Estim Creat Clear Calc 82.04 Est GFR (MDRD) Af Amer 119 Est GFR (MDRD) Non-Af 98 BUN/Creatinine Ratio 21.8 H Glucose 144 H Calcium 8.0 L Magnesium 1.7 Troponin I 0.166 H Triglycerides 141 Cholesterol 75 LDL Cholesterol 26 VLDL Cholesterol 28 HDL Cholesterol 21 L TSH 2.86 2.76 Free T4 1.34 POC Glucose 09/01/19 09/01/19 11:39 12:44 WBC RBC Hgb Hct MCV MCH MCHC RDW Std Deviation RDW Coeff of [place] Plt Count MPV Immature Gran % (Auto) Neut % (Auto) Lymph % (Auto) [place] % (Auto) Eos % (Auto) Baso % (Auto) Absolute Neuts (auto) Absolute Lymphs (auto) Nucleated RBC % Diff Path Review Sodium Potassium Chloride Carbon Dioxide Anion Gap BUN Creatinine Estim Creat Clear Calc Est GFR (MDRD) Af Amer Est GFR (MDRD) Non-Af BUN/Creatinine Ratio Glucose Calcium Magnesium Troponin I 0.178 H Triglycerides Cholesterol LDL Cholesterol VLDL Cholesterol HDL Cholesterol TSH Free T4 POC Glucose 132 H Microbiology 08/30/19 12:00 Sputum, Expectorated/Coughed Gram Stain - Final 08/30/19 12:00 Sputum, Expectorated/Coughed Respiratory Culture - Preliminary Appears to be normal respiratory derrick. Further studies to follow. Clinical Impression(s) from Imaging Studies Brain CT 08/24/19 14:45 IMPRESSION: No acute intracranial abnormality. Chronic ischemic and atrophic changes. Electronically Signed: Theo James, at 17:05 EST Tel , Service support , Abdomen/Pelvis CT 08/24/19 14:48 IMPRESSION: Colitis in the sigmoid colon. No bowel obstruction. Constipation. No free air, free fluid or fluid collection. Electronically Signed: Theo James, at 17:08 EST Tel , Service support , Brain MRI 08/25/19 09:00 IMPRESSION: Involutional changes of the brain, as described above. Electronically Signed: Carlitos Crooks, at 14:50 EST Tel , Service support , Head MRA 08/25/19 09:00 IMPRESSION: Normal MRA of the head Electronically Signed: Carlitos Crooks, at 14:35 EST Tel , Service support , Neck MRA 08/25/19 09:00 IMPRESSION: Normal bilateral cervical carotid and vertebral arteries. Electronically Signed: Carlitos Valeriy, at 15:40 EST Tel , Service support , Chest X-Ray 08/25/19 21:28 IMPRESSION: Satisfactory position of the support lines and tubes. Patchy opacity at the right lung base which is likely infectious in etiology. No acute thoracic pathology. Electronically Signed: Theo James, at 22:39 EST Tel , Service support , Chest X-Ray 08/29/19 09:24 IMPRESSION: 1. Developing bilateral infiltrates suggesting edema or pneumonia. Electronically Signed: Helder Elizalde MD (Brooks) at 14:20 EDT , Service support , Abdomen/Pelvis CT 09/01/19 06:56 IMPRESSION: Status post colostomy in the left anterior abdominal wall. Postoperative changes in the peritoneal fat in the left upper and mid mesenteric fat. Left anterior pararenal space fluid as well as fluid in the paracolic gutters and in the pelvis. Fluid filled right hemicolon as well as mild fluid-filled dilated small bowel loops in the lower abdomen and pelvis. Electronically Signed: Delta Medina, at 9:49 EDT , Service support , Chest CTA 09/01/19 08:07 IMPRESSION: There is no evidence of pulmonary embolism. Diffuse bilateral groundglass appearance worse in the right lung with a small right pleural effusion with underlying atelectasis and/or infiltrate as well as mild infiltration and/or atelectasis at the left lung base. Electronically Signed: Delta Jonessarika, at 9:53 EDT , Service support , Chest X-Ray 09/01/19 11:30 IMPRESSION: Nasogastric tube coiled in left upper quadrant likely in the body the stomach. Electronically Signed: Skinny Good MD at 11:52 EDT Tel , Service support , Medical Necessity - Tobacco Use Smoking Status: Current every day smoker Tobacco Use: Cigarettes Assessment/Plan All Active Problems Sigmoid diverticulitis (Acute) Failure of outpatient treatment (Acute) Altered mental status (Acute) Colitis (Acute) Constipation (Acute) Large bowel obstruction (Acute) Atrial fibrillation (Acute) RECOMMENDATIONS: 1. Defer medical management of atrial fibrillation to cardiology. 2. Start scheduled Atrovent aerosols. 3. Continue scheduled Lasix as tolerated by renal function. 4. Wean supplemental oxygen to maintain saturations at or above 90%. 5. Encourage incentive spirometer use and mobilize patient as tolerated. 6. Continue empiric antimicrobials. IMPRESSIONS: 1. New onset atrial fibrillation with rapid ventricular rate/heart failure with preserved ejection fraction/pulmonary hypertension Continue current medical management per cardiology recommendations. 2. Severe sepsis secondary to peritonitis with fecal contamination secondary to sigmoid stricture Continue routine postoperative care and pain control per surgery recommendations. Continue IV Zosyn as ordered. 3. Acute blood loss anemia The patient has received a total of 4 units of packed red blood cells throughout this hospitalization. Hemoglobin is stable. Continue to monitor H&H daily with plans to transfuse if hemoglobin drops below 7 g/dL. 4. Acute respiratory failure The patient does report that she previously did not have a baseline supplemental oxygen requirement. The findings noted on chest imaging could be secondary to pulmonary edema. Therefore, I would recommend that she be continued on diuretic therapy as tolerated by renal function. I have a low clinical index of suspicion for an acute underlying pulmonary infectious process, especially in light of the fact that she has been on IV Zosyn since she was admitted to the hospital and previously had a negative MRSA screen. This note was generated with [employer] software. It may contain incorrect words, spelling, and punctuation that were not noted in checking the note before signing. Inpatient E&M: 26575 [facility]s Hosp L3
[2019-09-01] MEDS: Amiodarone 360 MG in Dextrose 5% Viaflo Bag 192.8 ML 16.7 MG CONT INF (13:32)
[2019-09-01 18:41] LABS: Bedside Glucose 131 mg/dL (70-110)
[2019-09-01] MEDS: Ipratropium 0.5 MG/2.5 ML SOLUTION INHALATION (19:01)
[2019-09-01 23:21] LABS: Bedside Glucose 147 mg/dL (70-110)
[2019-09-02] VITALS (45 sets, daily range): BP systolic 90–162; BP diastolic 58–110; PULSE 66–128; RESP 12–30; TEMP 36.1–36.6; O2SAT 91–100
[2019-09-02] MEDS: Amiodarone 360 MG in Dextrose 5% Viaflo Bag 192.8 ML 33.3 MG CONT INF ×4 (03:31→22:37)
[2019-09-02] MEDS: 0.9% Saline Lock 10 ML Syringe IV ×5 (04:23→17:53)
[2019-09-02] MEDS: HYDROmorphone 0.5 MG/0.5 ML SYRINGE IV ×2 (04:23→15:21)
[2019-09-02 04:33] LABS: Absolute Lymphocyte Count 1.78 X10^3/uL (0.83-4.51); Absolute Neutrophil Count 9.4 X10^3/uL (2.0-7.7); Basophil# 0.02 X10^3/uL; Basophil% 0.2 % (0-1); Eosinophil# 0.12 X10^3/uL; Eosinophils% 0.9 % (0-5); Hematocrit 29.7 % (37-47); Hemoglobin 9.7 g/dL (12.0-15.0); Lymphocyte # 1.78 X10^3/ul (4.0); Lymphocyte % 13.6 % (19-41); Mean Corp Hgb Conc 32.7 g/dL (32-36); Mean Corpuscular Volume 85.6 fL (81-99); Mean Platelet Vol. 9.7 fl (6.2-12.0); Monocyte# 1.44 X10^3/uL; NRBC Flagged by Analyzer 0 % (0-5); Neutrophil # 9.36 X10^3/uL (2.7-7.7); Neutrophil % 71.6 % (47-70); Platelet Count 618 K/mm3 (150-450); RBC Distribution Width CV 16.9 % (11.6-14.6); RBC Distribution Width SD 52.3 fl (35.1-43.9); Red Blood Count 3.47 M/mm3 (4.2-5.4); White Blood Count 13.1 K/mm3 (4.4-11.0)
[2019-09-02 05:14] LABS: Anion Gap 9 (5-15); BUN 10 mg/dL (7-18); BUN/Creat Ratio 14.1 RATIO (10-20); Calcium,Total 7.7 mg/dL (8.5-10.1); Chloride 98 mmol/L (98-107); Creatinine, Serum 0.71 mg/dL (0.55-1.02); EST Glomerular Filtration Rate 88 mL/min (>60); Est Glom Filt Rate - Afr Amer 106 mL/min (>60); Estimated Creatinine Clearance 73.95 ml/min; Glucose 152 mg/dL (74-106); Potassium 3.3 mmol/L (3.5-5.1); Sodium Level 136 mmol/L (136-145)
[2019-09-02] MEDS: Insulin Lispro 100 UNIT/ML INSULN.PEN SC ×2 (05:52→17:52)
[2019-09-02 05:55] LABS: Bedside Glucose 182 mg/dL (70-110)
--- NOTE | 2019-09-02 06:54 | PN_ITS ---
Subjective: The patient was seen and examined at the bedside this morning. Events from the last 24 hours have been reviewed. The patient is currently afebrile, hemodynamically stable and maintaining appropriate oxygen saturations on 2 L/min via nasal cannula. The patient's heart rate has been under much better control. She remains on both amiodarone and Cardizem drips. Blood pressure is stable. She is currently documented to be overall net +10.1 L for the hospital admission. She remains on scheduled IV Lasix 40 mg twice daily. Potassium is low this morning at 3.3. However, renal function remains stable. Objective: The patient's most recent lab work, culture data and imaging studies have all been personally reviewed. Sputum culture from August 29 appears to be normal respiratory derrick. General: Alert, Cooperative, No apparent distress HEENT: Atraumatic, PERRLA, Normocephalic Oral: No Gingival or Mucosal Lesions/ Ulcerations Neck: Supple, No Nodes, Trachea Midline Lungs: Normal air movement, No rhonchi, No wheeze, No rales Cardiovascular: Normal S1, Normal S2, No murmurs, Irregular Rate, Tachycardic Abdomen: Bowel Sounds Present, Soft, - - + Ostomy Extremities: No clubbing, No cyanosis, No edema Skin: No breakdown, Incision - Intact Musculoskeletal: No Tenderness to Palpation of Joints or Extremities Lymphatic: No Cervical, Supraclavicular, or Inguinal Adenopathy Neurological: Cranial nerves II-XII grossly intact, Neuro grossly intact Psych/Mental Status: Normal Affect, Appropriate Vital Signs Temp Pulse Resp BP Pulse Ox 97 F L 83 13 127/58 H 98 09/02/19 04:00 09/02/19 06:00 09/02/19 06:00 09/02/19 06:00 09/02/19 06:00 Oxygen Flow Rate (L/min) 2 Oxygen Delivery Method Nasal Cannula Weight: 169 lb 12.095 oz Body Mass Index (BMI) 27.8 Finger Stick Blood Glucose 86 Intake and Output for Last 24 Hours 08/31/19 09/01/19 09/02/19 23:59 23:59 23:59 Intake Total 978.25 / 978.25 2098.89 / 2104.39 279.49 / 279.49 Output Total 300 / 300 2300 / 2300 580 / 580 Balance 678.25 / 678.25 -201.11 / -195.61 -300.51 / -300.51 Labs (Last 48 Hours) 08/30/19 08/31/19 08/31/19 05:42 06:00 11:52 WBC RBC Hgb Hct MCV MCH MCHC RDW Std Deviation RDW Coeff of [place]mar Plt Count MPV Immature Gran % (Auto) Neut % (Auto) Lymph % (Auto) [place] % (Auto) Eos % (Auto) Baso % (Auto) Absolute Neuts (auto) Absolute Lymphs (auto) Nucleated RBC % Diff Path Review Reviewed Sodium 142 Potassium 3.4 L Chloride 111 H Carbon Dioxide 25.0 Anion Gap 6 BUN 15 Creatinine 0.66 Estim Creat Clear Calc 79.55 Est GFR (MDRD) Af Amer 116 Est GFR (MDRD) Non-Af 96 BUN/Creatinine Ratio 22.8 H Glucose 180 H Calcium 7.8 L Magnesium Troponin I Triglycerides Cholesterol LDL Cholesterol VLDL Cholesterol HDL Cholesterol TSH Free T4 POC Glucose 93 08/31/19 08/31/19 09/01/19 16:50 23:26 05:21 WBC RBC Hgb Hct MCV MCH MCHC RDW Std Deviation RDW Coeff of [place] Plt Count MPV Immature Gran % (Auto) Neut % (Auto) Lymph % (Auto) [place] % (Auto) Eos % (Auto) Baso % (Auto) Absolute Neuts (auto) Absolute Lymphs (auto) Nucleated RBC % Diff Path Review Sodium Potassium Chloride Carbon Dioxide Anion Gap BUN Creatinine Estim Creat Clear Calc Est GFR (MDRD) Af Amer Est GFR (MDRD) Non-Af BUN/Creatinine Ratio Glucose Calcium Magnesium Troponin I Triglycerides Cholesterol LDL Cholesterol VLDL Cholesterol HDL Cholesterol TSH Free T4 POC Glucose 81 104 142 H 09/01/19 09/01/19 09/01/19 06:10 06:10 06:10 WBC 15.4 H RBC 3.44 L Hgb 9.4 L Hct 30.1 L MCV 87.5 MCH 27.3 MCHC 31.2 L RDW Std Deviation 54.5 H RDW Coeff of [place] 17.0 H Plt Count 545 H MPV 9.6 Immature Gran % (Auto) 3.000 H Neut % (Auto) 78.0 H Lymph % (Auto) 8.5 L [place] % (Auto) 9.7 Eos % (Auto) 0.5 Baso % (Auto) 0.3 Absolute Neuts (auto) 12.0 H Absolute Lymphs (auto) 1.31 Nucleated RBC % 0 Diff Path Review Sodium 140 Potassium 3.3 L Chloride 108 H Carbon Dioxide 23.0 Anion Gap 9 BUN 14 Creatinine 0.64 Estim Creat Clear Calc 82.04 Est GFR (MDRD) Af Amer 119 Est GFR (MDRD) Non-Af 98 BUN/Creatinine Ratio 21.8 H Glucose 144 H Calcium 8.0 L Magnesium 1.7 Troponin I Triglycerides 141 Cholesterol 75 LDL Cholesterol 26 VLDL Cholesterol 28 HDL Cholesterol 21 L TSH 2.86 2.76 Free T4 1.34 POC Glucose 09/01/19 09/01/19 09/01/19 08:30 11:39 12:44 WBC RBC Hgb Hct MCV MCH MCHC RDW Std Deviation RDW Coeff of [place] Plt Count MPV Immature Gran % (Auto) Neut % (Auto) Lymph % (Auto) [place] % (Auto) Eos % (Auto) Baso % (Auto) Absolute Neuts (auto) Absolute Lymphs (auto) Nucleated RBC % Diff Path Review Sodium Potassium Chloride Carbon Dioxide Anion Gap BUN Creatinine Estim Creat Clear Calc Est GFR (MDRD) Af Amer Est GFR (MDRD) Non-Af BUN/Creatinine Ratio Glucose Calcium Magnesium Troponin I 0.166 H 0.178 H Triglycerides Cholesterol LDL Cholesterol VLDL Cholesterol HDL Cholesterol TSH Free T4 POC Glucose 132 H 09/01/19 09/01/19 09/01/19 16:05 18:21 23:10 WBC RBC Hgb Hct MCV MCH MCHC RDW Std Deviation RDW Coeff of [place] Plt Count MPV Immature Gran % (Auto) Neut % (Auto) Lymph % (Auto) [place] % (Auto) Eos % (Auto) Baso % (Auto) Absolute Neuts (auto) Absolute Lymphs (auto) Nucleated RBC % Diff Path Review Sodium Potassium Chloride Carbon Dioxide Anion Gap BUN Creatinine Estim Creat Clear Calc Est GFR (MDRD) Af Amer Est GFR (MDRD) Non-Af BUN/Creatinine Ratio Glucose Calcium Magnesium Troponin I 0.155 H Triglycerides Cholesterol LDL Cholesterol VLDL Cholesterol HDL Cholesterol TSH Free T4 POC Glucose 131 H 147 H 09/02/19 09/02/19 09/02/19 04:15 04:15 05:48 WBC 13.1 H RBC 3.47 L Hgb 9.7 L Hct 29.7 L MCV 85.6 MCH 28.0 MCHC 32.7 RDW Std Deviation 52.3 H RDW Coeff of Wilmar 16.9 H Plt Count 618 H MPV 9.7 Immature Gran % (Auto) 2.700 H Neut % (Auto) 71.6 H Lymph % (Auto) 13.6 L [place] % (Auto) 11.0 H Eos % (Auto) 0.9 Baso % (Auto) 0.2 Absolute Neuts (auto) 9.4 H Absolute Lymphs (auto) 1.78 Nucleated RBC % 0 [address] Path Review Sodium 136 Potassium 3.3 L Chloride 98 Carbon Dioxide 29.0 Anion Gap 9 BUN 10 Creatinine 0.71 Estim Creat Clear Calc 73.95 Est GFR (MDRD) Af Amer 106 Est GFR (MDRD) Non-Af 88 BUN/Creatinine Ratio 14.1 Glucose 152 H Calcium 7.7 L Magnesium Troponin I Triglycerides Cholesterol LDL Cholesterol VLDL Cholesterol HDL Cholesterol TSH Free T4 POC Glucose 182 H Microbiology 08/30/19 12:00 Sputum, Expectorated/Coughed Gram Stain - Final 08/30/19 12:00 Sputum, Expectorated/Coughed Respiratory Culture - Prelim inary Appears to be normal respiratory derrick. Further studies to follow. Clinical Impression(s) from Imaging Studies Brain CT 08/24/19 14:45 IMPRESSION: No acute intracranial abnormality. Chronic ischemic and atrophic changes. Electronically Signed: Theo James, at 17:05 EST Tel , Service support , Abdomen/Pelvis CT 08/24/19 14:48 IMPRESSION: Colitis in the sigmoid colon. No bowel obstruction. Constipation. No free air, free fluid or fluid collection. Electronically Signed: Theo James, at 17:08 EST Tel , Service support , Brain MRI 08/25/19 09:00 IMPRESSION: Involutional changes of the brain, as described above. Electronically Signed: Carlitos Crooks, at 14:50 EST Tel , Service support , Head MRA 08/25/19 09:00 IMPRESSION: Normal MRA of the head Electronically Signed: Carlitos Crooks, at 14:35 EST Tel , Service support , Neck MRA 08/25/19 09:00 IMPRESSION: Normal bilateral cervical carotid and vertebral arteries. Electronically Signed: Carlitos Valeriy, at 15:40 EST Tel , Service support , Chest X-Ray 08/25/19 21:28 IMPRESSION: Satisfactory position of the support lines and tubes. Patchy opacity at the right lung base which is likely infectious in etiology. No acute thoracic pathology. Electronically Signed: Theo James, at 22:39 EST Tel , Service support , Chest X-Ray 08/29/19 09:24 IMPRESSION: 1. Developing bilateral infiltrates suggesting edema or pneumonia. Electronically Signed: Helder Elizalde MD (Brooks) at 14:20 EDT , Service support , Abdomen/Pelvis CT 09/01/19 06:56 IMPRESSION: Status post colostomy in the left anterior abdominal wall. Postoperative changes in the peritoneal fat in the left upper and mid mesenteric fat. Left anterior pararenal space fluid as well as fluid in the paracolic gutters and in the pelvis. Fluid filled right hemicolon as well as mild fluid-filled dilated small bowel loops in the lower abdomen and pelvis. Electronically Signed: Delta Medina, at 9:49 EDT , Service support , Chest CTA 09/01/19 08:07 IMPRESSION: There is no evidence of pulmonary embolism. Diffuse bilateral groundglass appearance worse in the right lung with a small right pleural effusion with underlying atelectasis and/or infiltrate as well as mild infiltration and/or atelectasis at the left lung base. Electronically Signed: Delta Jonessarika, at 9:53 EDT , Service support , Chest X-Ray 09/01/19 11:30 IMPRESSION: Nasogastric tube coiled in left upper quadrant likely in the body the stomach. Electronically Signed: Skinny Good MD at 11:52 EDT Tel , Service support , Medical Necessity - Tobacco Use Smoking Status: Current every day smoker Tobacco Use: Cigarettes Assessment/Plan All Active Problems Sigmoid diverticulitis (Acute) Failure of outpatient treatment (Acute) Altered mental status (Acute) Colitis (Acute) Constipation (Acute) Large bowel obstruction (Acute) Atrial fibrillation (Acute) RECOMMENDATIONS: 1. Continue rate/rhythm control strategy per cardiology recommendations. 2. Continue scheduled Atrovent aerosols. 3. Continue scheduled Lasix as tolerated by renal function. 4. Wean supplemental oxygen to maintain saturations at or above 90%. 5. Encourage incentive spirometer use and mobilize patient as tolerated. 6. Continue empiric antimicrobials. 7. Potassium repletion as ordered. IMPRESSIONS: 1. New onset atrial fibrillation with rapid ventricular rate/heart failure with preserved ejection fraction/pulmonary hypertension Continue current medical management per cardiology recommendations. Plans for possible cardioversion today. 2. Severe sepsis secondary to peritonitis with fecal contamination secondary to sigmoid stricture Continue routine postoperative care and pain control per surgery recommendations. Continue IV Zosyn as ordered. 3. Acute blood loss anemia The patient has received a total of 4 units of packed red blood cells throughout this hospitalization. Hemoglobin is stable. Continue to monitor H&H daily with plans to transfuse if hemoglobin drops below 7 g/dL. 4. Acute respiratory failure Improving. The patient does report that she previously did not have a baseline supplemental oxygen requirement. The findings noted on chest imaging could be secondary to pulmonary edema. Therefore, I would recommend that she be continued on diuretic therapy as tolerated by renal function. I have a low clinical index of suspicion for an acute underlying pulmonary infectious process, especially in light of the fact that she has been on IV Zosyn since she was admitted to the hospital and previously had a negative MRSA screen. This note was generated with [employer] dictation software. It may contain incorrect words, spelling, and punctuation that were not noted in checking the note before signing. Inpatient E&M: 99597 Subs Hosp L3
[2019-09-02] MEDS: Ipratropium 0.5 MG/2.5 ML SOLUTION INHALATION ×3 (07:16→18:53)
--- NOTE | 2019-09-02 07:38 | NURSING ---
Clamped NG per Dr. Lomax's order at 0730. Will assess drainage in 4 hrs.
[2019-09-02] MEDS: Potassium Chloride 10mEq/100mL 10 MEQ/100 ML IV.SOLN. 100 MEQ IV BOLUS ×4 (08:21→15:31)
--- NOTE | 2019-09-02 08:25 | PCM.PN.SRG ---
Patient Problems: Active and Suspected Problems Altered mental status (Acute) Colitis (Acute) Constipation (Acute) Large bowel obstruction (Acute) Atrial fibrillation (Acute) Subjective: The patient reports that she is feeling better than yesterday. She had an NG placed and over 600 cc were removed yesterday. She is having gas and stool in her colostomy bag. - Physical Exam Vitals/I&O's: Vital Signs Temp Pulse Resp BP Pulse Ox 97 F L 128 H 18 127/58 H 95 09/02/19 04:00 09/02/19 07:16 09/02/19 07:16 09/02/19 06:00 09/02/19 08:00 Oxygen Flow Rate (L/min) 1 Oxygen Delivery Method Nasal Cannula Weight: 169 lb 12.095 oz Body Mass Index (BMI) 27.8 Finger Stick Blood Glucose 86 Intake and Output for Last 24 Hours 08/31/19 09/01/19 09/02/19 23:59 23:59 23:59 Intake Total 978.25 / 978.25 2098.89 / 2104.39 279.49 / 279.49 Output Total 300 / 300 2300 / 2300 580 / 580 Balance 678.25 / 678.25 -201.11 / -195.61 -300.51 / -300.51 General: Alert, Oriented x3 Neck: No JVD Cardiovascular: Tachycardic Abdomen: Soft, Distended Microbiology Past 72 Hours 08/30/19 12:00 Sputum, Expectorated/Coughed Gram Stain - Final 08/30/19 12:00 Sputum, Expectorated/Coughed Respiratory Culture - Preliminary Appears to be normal respiratory derrick. Further studies to follow. Laboratory Results 09/01/19 06:10: Triglycerides 141, Cholesterol 75, LDL Cholesterol 26, VLDL Cholesterol 28, HDL Cholesterol 21 L, TSH 2.76, Free T4 1.34 09/01/19 08:30: Troponin I 0.166 H 09/01/19 11:39: Troponin I 0.178 H 09/01/19 12:44: POC Glucose 132 H 09/01/19 16:05: Troponin I 0.155 H 09/01/19 18:21: POC Glucose 131 H 09/01/19 23:10: POC Glucose 147 H 09/02/19 04:15: WBC 13.1 H, RBC 3.47 L, Hgb 9.7 L, Hct 29.7 L, MCV 85.6, MCH 28.0, MCHC 32.7, RDW Std Deviation 52.3 H, RDW Coeff of Wilmar 16.9 H, Plt Count 618 H, MPV 9.7, Immature Gran % (Auto) 2.700 H, Neut % (Auto) 71.6 H, Lymph % (Auto) 13.6 L, [place] % (Auto) 11.0 H, Eos % (Auto) 0.9, Baso % (Auto) 0.2, Absolute Neuts (auto) 9.4 H, Absolute Lymphs (auto) 1.78, Nucleated RBC % 0 09/02/19 04:15: Sodium 136, Potassium 3.3 L, Chloride 98, Carbon Dioxide 29.0, Anion Gap 9, BUN 10, Creatinine 0.71, Estim Creat Clear Calc 73.95, Est GFR (MDRD) Af Amer 106, Est GFR (MDRD) Non-Af 88, BUN/Creatinine Ratio 14.1, Glucose 152 H, Calcium 7.7 L 09/02/19 05:48: POC Glucose 182 H Current Medications Atorvastatin Calcium (Lipitor) 80 mg PO QHS [facility] Last Admin: 09/01/19 21:26 Dose: Not Given Documented by: Chlorhexidine Gluconate () 1 each TOPICAL DAILY [facility] Last Admin: 09/01/19 11:06 Dose: Not Given Documented by: Enoxaparin Sodium (Lovenox) 40 mg SC BID [facility] Last Admin: 09/01/19 21:31 Dose: 40 mg Documented by: Furosemide (Lasix) 40 mg IV BID@1000,1800 [facility] Stop: 09/02/19 18:01 Last Admin: 09/01/19 18:22 Dose: 40 mg Documented by: Hydromorphone HCl (Dilaudid Inj) 0.5 mg IV Q3H PRN PRN PRN Reason: pain -04/01 Last Admin: 09/02/19 04:23 Dose: 0.5 mg Documented by: Sodium Chloride () 250 mls @ 15 mls/hr IV .[id number] PRN PRN Reason: Saline Flush Last Infusion: 08/31/19 19:59 Dose: Infused Documented by: Sodium Chloride () 250 mls @ 15 mls/hr IV .[id number] PRN PRN Reason: Additional IVPB Infusion Pantoprazole Sodium 40 mg/ (Sodium Chloride) 110 mls @ 330 mls/hr IV Q12 [facility] Last Infusion: 09/01/19 21:47 Dose: Infused Documented by: Sodium Chloride () 500 mls @ 15 mls/hr IV PRN PRN PRN Reason: Blood Transfusion Last Infusion: 09/02/19 03:36 Dose: 0 mls/hr Documented by: Piperacillin Sod/Tazobactam (Sod 3.375 gm/ Sodium Chloride) 50 mls @ 12.5 mls/hr IV Q8 [facility] Last Admin: 09/02/19 05:44 Dose: 12.5 mls/hr Documented by: Diltiazem HCl 125 mg/ Dextrose 125 mls @ 5 mls/hr IV .Q25H [facility]; Protocol Last Titration: 09/02/19 06:00 Dose: 15 mg/hr, 15 mls/hr Documented by: Amiodarone HCl 360 mg/ (Dextrose) 200 mls @ 33.333 mls/hr CONT INF .Q6H [facility] Last Admin: 09/02/19 03:31 Dose: 1 mg/min, 33.3 mls/hr Documented by: Potassium Chloride () 10 meq in 100 mls @ 100 mls/hr IV BOLUS Q1H [facility] Stop: 09/02/19 10:59 Insulin Human Lispro (Humalog Kwikpen (Bkc)) 0 unit SC Q6 [facility]; Protocol Last Admin: 09/02/19 05:52 Dose: 1 u Documented by: Ipratropium [place] (Atrovent) 0.5 mg INHALATION Q4H.RT [facility] Last Admin: 09/02/19 07:16 Dose: 0.5 mg Documented by: Melatonin (Melatonin) 3 mg PO QHS PRN PRN PRN Reason: INSOMNIA Ondansetron HCl (Zofran) 4 mg IV Q8H PRN PRN PRN Reason: NAUSEA/VOMITING Last Admin: 09/01/19 04:43 Dose: 4 mg Documented by: Prochlorperazine Edisylate (Compazine Iv) 10 mg IV Q4H PRN PRN PRN Reason: NAUSEA/VOMITING Last Admin: 09/01/19 08:41 Dose: 10 mg Documented by: Sodium Chloride () 10 - 40 ml IV UD PRN PRN Reason: SALINE FLUSH Last Admin: 09/02/19 04:23 Dose: 20 ml Documented by: Medical Necessity - Tobacco Use Smoking Status: Current every day smoker Tobacco Use: Cigarettes Assessment/Plan All Active Problems Sigmoid diverticulitis (Acute) Failure of outpatient treatment (Acute) Altered mental status (Acute) Colitis (Acute) Constipation (Acute) Large bowel obstruction (Acute) Atrial fibrillation (Acute) 64-year-old female status post left hemicolectomy. 1. The patient was moved to the ICU yesterday for A. fib RVR. She is still tachycardic at 114. The patient is having stool and gas from her stoma. She did have green output from her NG tube placed yesterday. She has an ileus per the CT scan of her abdomen pelvis yesterday. Her white count has slightly decreased today. I will perform a clamping trial and wait 4 hours to see how much comes out of her NG. Clark Lomax MD Pager: [facility] [address] [place] [address] [address] [place] [address] Office:
--- NOTE | 2019-09-02 08:50 | PCM.PN.CARD ---
Subjectve: Patient doing better today, NG tube in place, still atrial fibrillation with rapid ventricular response with bursts of nonsustained ventricular tachycardia. IV amiodarone drip infusing over the last 24 hours. Potassium being corrected this morning. No chest pain or anginal symptoms. Dyspnea has improved with IV diuretic therapy. Objective: Vital Signs Temp Pulse Resp BP Pulse Ox 97.9 F 92 15 130/86 H 96 09/02/19 08:29 09/02/19 08:29 09/02/19 08:29 09/02/19 08:29 09/02/19 08:29 Oxygen Flow Rate (L/min) 1 Oxygen Delivery Method Nasal Cannula Weight: 169 lb 12.095 oz Body Mass Index (BMI) 27.8 Finger Stick Blood Glucose 86 Intake and Output for Last 24 Hours 08/31/19 09/01/19 09/02/19 23:59 23:59 23:59 Intake Total 978.25 / 978.25 2098.89 / 2104.39 477.25 / 477.25 Output Total 300 / 300 2300 / 2300 580 / 580 Balance 678.25 / 678.25 -201.11 / -195.61 -102.75 / -102.75 General: Awake, Alert, Oriented x 3 HEENT: PERRL, EOMI, Sclera Non Icteric Neck: Supple, Good ROM, No Lymph Node Enlargement Lungs: Clear to auscultation Cardiovascular: Irregular Rhythm, Normal S1, Normal S2, No Murmurs, No Rubs, No Gallops Vascular: No Carotid Bruits, Normal Femoral Pulses, Normal Radial Pulses, Normal Dorsalis Pedal Pulse, Normal Posterior Tibial Pulses Abdomen: Bowel Sounds Present, Soft, Non Tender, No HSM, No Organomegaly Extremities: No Cyanosis, No Clubbing, No edema Neurological: No Focal Motor or Sensory Deficit 09/01/19 08:30: Troponin I 0.166 H 09/01/19 11:39: Troponin I 0.178 H 09/01/19 16:05: Troponin I 0.155 H 09/02/19 04:15: WBC 13.1 H, RBC 3.47 L, Hgb 9.7 L, Hct 29.7 L, MCV 85.6, MCH 28.0, MCHC 32.7, Plt Count 618 H, MPV 9.7, Immature Gran % (Auto) 2.700 H, Neut % (Auto) 71.6 H, Lymph % (Auto) 13.6 L, [place] % (Auto) 11.0 H, Eos % (Auto) 0.9, Baso % (Auto) 0.2, Absolute Neuts (auto) 9.4 H, Nucleated RBC % 0 09/02/19 04:15: Sodium 136, Potassium 3.3 L, Chloride 98, Carbon Dioxide 29.0, Anion Gap 9, BUN 10, Creatinine 0.71, Est GFR (MDRD) Af Amer 106, Est GFR (MDRD) Non-Af 88, BUN/Creatinine Ratio 14.1, Glucose 152 H, Calcium 7.7 L Rhythm: EKG: ECHO: Stress Test: Cardiac Cath: PCI: CT Surgery: Holter monitor: EPS: PPM: CXR: Chest CT Scan: Medical Necessity - Tobacco Use Smoking Status: Current every day smoker Tobacco Use: Cigarettes Assessment/Plan 1. Atrial fibrillation with rapid ventricular response: The patient developed new onset rapid ventricular response secondary to atrial fibrillation on 09/01/2019, and CT scan demonstrated no evidence of pulmonary embolism at this time. Her peak troponin is 0.178, we will hold off on diagnostic coronary catheterization at this time. In addition she has continued to be in atrial fibrillation with RVR despite IV Cardizem drip and IV amiodarone drip. In addition she had a 6 beat run of nonsustained ventricular tachycardia which was self terminating. Given the short duration of the patient's atrial fibrillation of around 24 hours, and the challenges with performing a MO given her respiratory condition, I recommended the patient undergo an elective DC cardioversion later this morning after her potassium is been replaced. We will increase her Lovenox to 70 mg subcu twice daily for adequate coverage. If she is successfully cardioverted, I will then transition her off of IV Cardizem and IV amiodarone to p.o. Cardizem and p.o. amiodarone. This would also mitigate the need for residential anticoagulation therapy given her abdominal situation. 2. Dyspnea: The patient on echocardiogram demonstrated relatively intact LV function with at least moderate pulmonary pretension with an RVSP of 55 mmHg. This puts her at increased risk for atrial fibrillation going forward. Patient is responding to IV Lasix therapy. Continue IV Lasix therapy until she is reached her dry weight, at which time we will then convert her to p.o. Lasix. Recommend continuing ICU status until her cardioversion has been completed. 3. Thank you very much for the opportunity to participate in the cardiac care of your patient. Cussed with Dr. Munoz, plan for DC cardioversion at noon today. Inpatient E&M: [id number] Subs Hosp L2
--- NOTE | 2019-09-02 08:54 | EKG12_ITS ---
Test Reason : ARRYTHMIA Blood Pressure : / mmHG Vent. Rate : 139 BPM Atrial Rate : 357 BPM P-R Int : 000 ms QRS Dur : 072 ms QT Int : 334 ms P-R-T Axes : 000 054 260 degrees QTc Int : 508 ms Atrial fibrillation with premature ventricular or aberrantly conducted complexes ST & T wave abnormality, consider inferolateral ischemia Abnormal ECG Confirmed by LILLY CHACKO, KINSEY ([id number]), assignment desk editor MANDY SANDHU ([id number]) on 09/07/2019 7:49:32 AM Referred By: TAWANNA Confirmed By:KINSEY CARR MD
[2019-09-02] MEDS: Furosemide 40 MG/4 ML Vial IV ×2 (09:53→17:51)
[2019-09-02] MEDS: Enoxaparin 80 MG/0.8 ML Syringe 70 MG SC ×2 (09:55→21:27)
[2019-09-02] MEDS: CHLORHEXIDINE GLUC 2% CLOTH 1 EACH TOWELETTE TOPICAL (09:59)
--- NOTE | 2019-09-02 10:09 | CASEMGMT ---
Pt indicates to admitting nurse that she has a living will and Health Care POA naming her son Wilbert Yu. Documents are not currently on file. SW met with pt and daughter Marla and informed and requested documents be brought in when able. LATISHA Bobo
--- NOTE | 2019-09-02 10:45 | PCM.PN.HOSP ---
Patient Problems: Active and Suspected Problems Altered mental status (Acute) Colitis (Acute) Constipation (Acute) Large bowel obstruction (Acute) Atrial fibrillation (Acute) Subjective: Patient seen and examined. She still remains in Afib, and rate is not very well controlled. she is now NPO and NG tube is in place, though it is not on suction.Abdominal pain is well controlled. She denies any abdominal pain, and denies fever, chills, nausea, vomiting or shortness of breath. Review of systems otherwise negative. Labs and vitals reviewed. She has remained hemodynamically stable. Vitals/I&O's: Vital Signs Temp Pulse Resp BP Pulse Ox 97.9 F 95 21 H 143/110 H 96 09/02/19 08:29 09/02/19 10:14 09/02/19 10:00 09/02/19 10:14 09/02/19 10:00 Oxygen Flow Rate (L/min) 1 Oxygen Delivery Method Nasal Cannula Weight: 169 lb 12.095 oz Body Mass Index (BMI) 27.8 Finger Stick Blood Glucose 86 Intake and Output for Last 24 Hours 08/31/19 09/01/19 09/02/19 23:59 23:59 23:59 Intake Total 978.25 / 978.25 2098.89 / 2104.39 699.49 / 699.49 Output Total 300 / 300 2300 / 2300 580 / 580 Balance 678.25 / 678.25 -201.11 / -195.61 119.49 / 119.49 General: Alert, Oriented x3, Cooperative, No apparent distress, HEENT: Atraumatic, PERRLA, EOMI, Normocephalic Oral: Dry Mucosa Neck: Supple, No JVD, Negative Carotid Bruits Lungs: mildly decreased breath sounds bibasally, Normal air movement, No rhonchi, No wheeze Cardiovascular: Normal S1, Normal S2, No murmurs, tachycardic, irregular rate and rhythm, Afib with RVR Abdomen: Bowel Sounds Present, Soft, - - no tenderness, no guarding or rebound tenderness. Colostomy bag contains scant stool. Surgical site incision healing well. NG tube in place Extremities: No clubbing, No cyanosis, No edema, Capillary Refill Less than 3 Seconds Skin: No rashes, No breakdown Musculoskeletal: No Tenderness to Palpation of Joints or Extremities Lymphatic: No Cervical, Supraclavicular, or Inguinal Adenopathy Neurological: Cranial nerves II-XII grossly intact, Neuro grossly intact, Motor Exam 5/5 strength throughout Psych/Mental Status: Normal Affect, Appropriate, Alert and oriented to time, place, person, mood and affect Microbiology Past 72 Hours 08/30/19 12:00 Sputum, Expectorated/Coughed Gram Stain - Final 08/30/19 12:00 Sputum, Expectorated/Coughed Respiratory Culture - Final Laboratory Results 09/01/19 11:39: Troponin I 0.178 H 09/01/19 12:44: POC Glucose 132 H 09/01/19 16:05: Troponin I 0.155 H 09/01/19 18:21: POC Glucose 131 H 09/01/19 23:10: POC Glucose 147 H 09/02/19 04:15: WBC 13.1 H, RBC 3.47 L, Hgb 9.7 L, Hct 29.7 L, MCV 85.6, MCH 28.0, MCHC 32.7, RDW Std Deviation 52.3 H, RDW Coeff of [place] 16.9 H, Plt Count 618 H, MPV 9.7, Immature Gran % (Auto) 2.700 H, Neut % (Auto) 71.6 H, Lymph % (Auto) 13.6 L, [place] % (Auto) 11.0 H, Eos % (Auto) 0.9, Baso % (Auto) 0.2, Absolute Neuts (auto) 9.4 H, Absolute Lymphs (auto) 1.78, Nucleated RBC % 0 09/02/19 04:15: Sodium 136, Potassium 3.3 L, Chloride 98, Carbon Dioxide 29.0, Anion Gap 9, BUN 10, Creatinine 0.71, Estim Creat Clear Calc 73.95, Est GFR (MDRD) Af Amer 106, Est GFR (MDRD) Non-Af 88, BUN/Creatinine Ratio 14.1, Glucose 152 H, Calcium 7.7 L 09/02/19 05:48: POC Glucose 182 H Diagnostic Data Brain CT 08/24/19 14:45 IMPRESSION: No acute intracranial abnormality. Chronic ischemic and atrophic changes. Electronically Signed: Theo James, at 17:05 EST Tel , Service support , Brain MRI 08/25/19 09:00 IMPRESSION: Involutional changes of the brain, as described above. Electronically Signed: Carlitos Crooks, at 14:50 EST Tel , Service support , Head MRA 08/25/19 09:00 IMPRESSION: Normal MRA of the head Electronically Signed: Carlitos Tishgutierrez, at 14:35 EST Tel , Service support , Neck MRA 08/25/19 09:00 IMPRESSION: Normal bilateral cervical carotid and vertebral arteries. Electronically Signed: Carlitos Tishgutierrez, at 15:40 EST Tel , Service support , Abdomen/Pelvis CT 09/01/19 06:56 IMPRESSION: Status post colostomy in the left anterior abdominal wall. Postoperative changes in the peritoneal fat in the left upper and mid mesenteric fat. Left anterior pararenal space fluid as well as fluid in the paracolic gutters and in the pelvis. Fluid filled right hemicolon as well as mild fluid-filled dilated small bowel loops in the lower abdomen and pelvis. Electronically Signed: Delta Medina, at 9:49 EDT , Service support , Chest CTA 09/01/19 08:07 IMPRESSION: There is no evidence of pulmonary embolism. Diffuse bilateral groundglass appearance worse in the right lung with a small right pleural effusion with underlying atelectasis and/or infiltrate as well as mild infiltration and/or atelectasis at the left lung base. Electronically Signed: Delta Medina, at 9:53 EDT , Service support , Chest X-Ray 09/01/19 11:30 IMPRESSION: Nasogastric tube coiled in left upper quadrant likely in the body the stomach. Electronically Signed: Skinny Good MD at 11:52 EDT Tel , Service support , Current Medications Atorvastatin Calcium (Lipitor) 80 mg PO QHS [facility] Last Admin: 09/01/19 21:26 Dose: Not Given Documented by: Chlorhexidine Gluconate () 1 each TOPICAL DAILY [facility] Last Admin: 09/02/19 09:59 Dose: 1 each Documented by: Enoxaparin Sodium (Lovenox) 70 mg SC Q12 [facility] Last Admin: 09/02/19 09:55 Dose: 70 mg Documented by: Furosemide (Lasix) 40 mg IV BID@1000,1800 [facility] Stop: 09/02/19 18:01 Last Admin: 09/02/19 09:53 Dose: 40 mg Documented by: Hydromorphone HCl (Dilaudid Inj) 0.5 mg IV Q3H PRN PRN PRN Reason: pain 6-04/01 Last Admin: 09/02/19 04:23 Dose: 0.5 mg Documented by: Sodium Chloride () 250 mls @ 15 mls/hr IV .[id number] PRN PRN Reason: Saline Flush Last Infusion: 08/31/19 19:59 Dose: Infused Documented by: Sodium Chloride () 250 mls @ 15 mls/hr IV .[id number] PRN PRN Reason: Additional IVPB Infusion Pantoprazole Sodium 40 mg/ (Sodium Chloride) 110 mls @ 330 mls/hr IV Q12 [facility] Last Infusion: 09/02/19 10:11 Dose: Infused Documented by: Sodium Chloride () 500 mls @ 15 mls/hr IV PRN PRN PRN Reason: Blood Transfusion Last Infusion: 09/02/19 03:36 Dose: 0 mls/hr Documented by: Piperacillin Sod/Tazobactam (Sod 3.375 gm/ Sodium Chloride) 50 mls @ 12.5 mls/hr IV Q8 [facility] Last Infusion: 09/02/19 09:44 Dose: Infused Documented by: Diltiazem HCl 125 mg/ Dextrose 125 mls @ 5 mls/hr IV .Q25H [facility]; Protocol Last Titration: 09/02/19 10:00 Dose: 15 mg/hr, 15 mls/hr Documented by: Amiodarone HCl 360 mg/ (Dextrose) 200 mls @ 33.333 mls/hr CONT INF .Q6H [facility] Last Admin: 09/02/19 10:14 Dose: 1 mg/min, 33.3 mls/hr Documented by: Potassium Chloride () 10 meq in 100 mls @ 100 mls/hr IV BOLUS Q1H [facility] Stop: 09/02/19 10:59 Last Admin: 09/02/19 08:21 Dose: 100 mls/hr Documented by: Sodium Chloride () 500 mls @ 15 mls/hr IV .[id number] [facility] Last Admin: 09/02/19 09:58 Dose: Not Given Documented by: Insulin Human Lispro (Humalog Kwikpen (Bkc)) 0 unit SC Q6 [facility]; Protocol Last Admin: 09/02/19 05:52 Dose: 1 u Documented by: Ipratropium [place] (Atrovent) 0.5 mg INHALATION Q4H.RT [facility] Last Admin: 09/02/19 07:16 Dose: 0.5 mg Documented by: Melatonin (Melatonin) 3 mg PO QHS PRN PRN PRN Reason: INSOMNIA Ondansetron HCl (Zofran) 4 mg IV Q8H PRN PRN PRN Reason: NAUSEA/VOMITING Last Admin: 09/01/19 04:43 Dose: 4 mg Documented by: Prochlorperazine Edisylate (Compazine Iv) 10 mg IV Q4H PRN PRN PRN Reason: NAUSEA/VOMITING Last Admin: 09/01/19 08:41 Dose: 10 mg Documented by: Sodium Chloride () 10 - 40 ml IV UD PRN PRN Reason: SALINE FLUSH Last Admin: 09/02/19 09:53 Dose: 10 ml Documented by: STROKE Vital Signs/Narrative: Vital Signs Temp Pulse Resp BP Pulse Ox 09/02/19 10:14 95 143/110 H 09/02/19 10:00 102 H 21 H 143/110 H 96 09/02/19 09:00 103 H 19 H 129/92 H 95 09/02/19 08:29 97.9 F 92 15 130/86 H 96 09/02/19 08:25 97 130/86 H 09/02/19 08:22 94 130/86 H 09/02/19 08:10 98 09/02/19 08:00 95 09/02/19 07:39 83 09/02/19 07:16 128 H 18 97 Medical Necessity - Tobacco Use Smoking Status: Current every day smoker Tobacco Use: Cigarettes Assessment/Plan All Active Problems Sigmoid diverticulitis (Acute) Failure of outpatient treatment (Acute) Altered mental status (Acute) Colitis (Acute) Constipation (Acute) Large bowel obstruction (Acute) Atrial fibrillation (Acute) 1. Afib with RVR rate still not fluctuating; she is still on amiodarone and cardizem drips troponins were 0.166->0.178->0.155 cardiology on board; on lovenox 40mg sc bid CTA of chest was negative for PE on aspirin and plavix for cardioversion today, per cardiology 2. Acute hypoxic respiratory failure now down to 1L of oxygen. on IV lasix; urine output was 2300mls overnight. she is still in cumulative positive balance by 10.57L 2D echo done earlier in the admission showed EF of 65% with stage I diastolic dysfunction and mildly enlarged left atrium with RVSP of 55 mmHg. continue diuresing with IV lasix 3. 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 management as per general surgery 4. Acute blood loss anemia due to surgery s/p transfusion of 4 units of PRBCs. Hb today is 9.7 5. Hypokalemia: K is still 3.3 today. Will replace and monitor. 6. Chronic dysphagia: has had dilatations done with Dr Fallon. Stable. DVT prophylaxis: now on lovenox 40mg bid Prophylaxis: IV pantoprazole Inpatient E&M: [id number] [facility] L3
--- NOTE | 2019-09-02 11:00 | NURSING ---
In to assess patient with RYAN Lai. NG is currently clamped per Dr Lomax order with possible removal later today if no further nausea and minimal drainage. pt states she feels better today. abdomen soft with some mild tenderness that is expected. wound VAC dressing in place. pt has small amount of liquid brown stool and some gas noted in the colostomy appliance. daughter present at bedside. no further needs voiced at this time.
[2019-09-02] MEDS: Propofol 200 MG/20 ML Vial 40 MG IV BOLUS (11:40)
--- NOTE | 2019-09-02 11:43 | NURSING ---
1140 Dr[address] Munoz and Dr. Garcia at bedside for cardioversion; 40 mg of propofol given 1142 Shock delievered at 200J with pt rhythm returning to NSR 1143 Pt rouses to verbal stimulation HR 72 RR 22 94% SPO2 on room air BP 134/69 EKG ordered
--- NOTE | 2019-09-02 11:52 | EKG12_ITS ---
Test Reason : POST-CARDIOVERSION Blood Pressure : / mmHG Vent. Rate : 069 BPM Atrial Rate : 069 BPM P-R Int : 132 ms QRS Dur : 074 ms QT Int : 478 ms P-R-T Axes : 042 042 034 degrees QTc Int : 512 ms Normal sinus rhythm Nonspecific ST abnormality Prolonged QT Abnormal ECG Confirmed by LILLY CHACKO, KINSEY ([id number]), legal editor MARYBETH ALBERTO ([id number]) on 09/14/2019 8:41:00 AM Referred By: BARTOLOME Confirmed By:KINSEY CARR MD
--- NOTE | 2019-09-02 11:53 | PRO.PCM_ITS ---
Procedure Report Date of Procedure: 09/02/19 CONSCIOUS SEDATION REPORT DATE OF SERVICE: September 02, 2019 BRIEF HISTORY OF PRESENT ILLNESS: The patient is a 64-year-old female, currently admitted to [facility] with severe sepsis, acute blood loss anemia and acute respiratory failure. The patient subsequently went on to develop new onset atrial fibrillation. She was evaluated by cardiology. Surface echocardiogram on August 24 revealed normal LV size with an ejection fraction of 65%. The patient denied any previous anesthetic complications. PHYSICAL EXAMINATION: VITAL SIGNS: Reviewed and were acceptable. GENERAL: The patient is a female, in no apparent distress, speaking in full sentences. HEENT: Normocephalic, atraumatic. Mucous membranes are moist and pink. Good mouth opening noted. Trachea is midline. CHEST: S1, S2 irregularly irregular. No murmurs, rubs or gallops were noted. LUNGS: Clear to auscultation bilaterally without appreciable wheezes, rales or rhonchi. ABDOMEN: Soft, nontender, nondistended. Positive bowel sounds. EXTREMITIES: There is no clubbing, cyanosis or edema. ASA Class: II DESCRIPTION OF PROCEDURE: After confirmation of informed consent, the patient's anesthesia plan was reviewed in detail. Propofol was chosen. Risks and benefits were reviewed and the patient agreed to proceed. At 1142, the patient was given 40 mg of propofol. The patient achieved an appropriate level of sedation and was given a 200 joule synchronized cardioversion by Dr. Garcia at the bedside. This was successful in achieving normal sinus rhythm. The patient was monitored until 1153, at which time she reached her baseline mental status and function. The patient tolerated the procedure well. COMPLICATIONS: None ESTIMATED BLOOD LOSS: None RECOMMENDATIONS: Okay to recover in usual fashion. [id number]: Other Procedure See Report - [id number]
[2019-09-02 12:31] LABS: Bedside Glucose 121 mg/dL (70-110)
--- NOTE | 2019-09-02 13:02 | CARDIOVERS_ITS ---
Cardioversion Cardioversion: DC cardioversion summary: With the assistance of the patient's daughter, who is [employer], the risk/benefits of the DC cardioversion were thoroughly explained to the patient and her daughter and informed consent was obtained. The reason for the cardioversion was to assist with uncontrolled atrial fibrillation despite IV Cardizem drip and IV amiodarone drip for the better part of 24 hours. In addition the patient may require additional surgery which may be problematic given ongoing anticoagulation therapy. Patient is currently in atrial fibrillation with controlled ventricular response on IV Cardizem and IV amiodarone drip. Her potassium was replaced this morning, and the patient agreed to proceed with cardioversion. The defibrillator pads were placed in the AP position, and with the assistance of Dr. Surya Munoz the patient was given a single injection of 40 mg of IV propofol. Once adequate sedation was obtained the patient received a single 200 J biphasic synchronized shock which converted from atrial fibrillation to normal sinus rhythm. Her rhythm remained durable, and the defibrillator pads were removed. Conclusions: Successful IV amiodarone and IV Cardizem assisted DC cardioversion with a single biphasic 200 J shock converting her from atrial fibrillation to normal sinus rhythm. Recommendations: At this point she is n.p.o. and is unable to take p.o. meds so therefore we will continue her IV Cardizem and IV amiodarone drip for another 24 hours. In addition we will increase her Lovenox to 70 g subcu twice daily full anticoagulation should the patient revert back to atrial fibrillation. Once the patient is able to take p.o., we will wean her off her amiodarone and Cardizem drip and switch her to p.o. Cardizem 120 mg daily, and amiodarone 200 mg p.o. twice daily for 5 days followed by 200 mg daily. Many thanks to Dr. Surya Munoz. Patient taught procedure well. No complications.
[2019-09-02 18:06] LABS: Bedside Glucose 157 mg/dL (70-110)
[2019-09-03] VITALS (32 sets, daily range): BP systolic 118–161; BP diastolic 63–98; PULSE 65–85; RESP 12–22; TEMP 36.5–36.7; O2SAT 92–100
[2019-09-03] LABS: Bedside Glucose 133 mg/dL (70-110)
[2019-09-03] MEDS: HYDROmorphone 0.5 MG/0.5 ML SYRINGE IV ×4 (01:50→19:57)
[2019-09-03] MEDS: Ipratropium 0.5 MG/2.5 ML SOLUTION INHALATION ×5 (03:31→18:53)
[2019-09-03] MEDS: Amiodarone 360 MG in Dextrose 5% Viaflo Bag 192.8 ML 33.3 MG CONT INF (03:59)
--- NOTE | 2019-09-03 04:10 | NURSING ---
Amiodarone and cardizem gtt placed on hold to attempt AM blood draw via PIV to LW. With fluids on hold, blood noted to be pulsatile in IV tubing and blood filled 10ml syringe w/out any negative pressure being applied. Pt denies any numbness/tingling as w/each previous assessment. Pt informed that the IV will need to be removed and a new one started. Pt denies questions or concerns.
--- NOTE | 2019-09-03 04:21 | NURSING ---
PIV removed from LWrist, immediately noted hematoma forming, presure applied and readjusted to occlude above and below insertion site. Pressure held [id number] and hematoma manipulated out, pressure occlusive drsg applied. Pt radha all well, sitting up in chair; cont to deny numbness and tingling distally.
[2019-09-03 04:52] LABS: Absolute Lymphocyte Count 1.62 X10^3/uL (0.83-4.51); Absolute Neutrophil Count 9.6 X10^3/uL (2.0-7.7); Basophil# 0.03 X10^3/uL; Basophil% 0.2 % (0-1); Eosinophils% 0.8 % (0-5); Hematocrit 31.2 % (37-47); Hemoglobin 10.1 g/dL (12.0-15.0); Lymphocyte # 1.62 X10^3/ul (4.0); Lymphocyte % 12.4 % (19-41); Mean Corp Hgb Conc 32.4 g/dL (32-36); Mean Corpuscular Hgb 27.5 pg (27.0-32.0); Mean Platelet Vol. 9.7 fl (6.2-12.0); Monocyte# 1.39 X10^3/uL; Monocyte% 10.7 % (0-10); NRBC Flagged by Analyzer 0 % (0-5); Neutrophil # 9.63 X10^3/uL (2.7-7.7); Platelet Count 668 K/mm3 (150-450); RBC Distribution Width CV 16.8 % (11.6-14.6); RBC Distribution Width SD 50.9 fl (35.1-43.9); Red Blood Count 3.67 M/mm3 (4.2-5.4)
[2019-09-03] MEDS: 0.9% Saline Lock 10 ML Syringe IV ×4 (05:01→22:53)
[2019-09-03 05:05] LABS: Anion Gap 9 (5-15); BUN 9 mg/dL (7-18); BUN/Creat Ratio 11.4 RATIO (10-20); Calcium,Total 7.9 mg/dL (8.5-10.1); Chloride 95 mmol/L (98-107); Creatinine, Serum 0.79 mg/dL (0.55-1.02); EST Glomerular Filtration Rate 78 mL/min (>60); Est Glom Filt Rate - Afr Amer 94 mL/min (>60); Estimated Creatinine Clearance 66.46 ml/min; Glucose 137 mg/dL (74-106); Potassium 2.6 mmol/L (3.5-5.1); Sodium Level 133 mmol/L (136-145)
--- NOTE | 2019-09-03 05:20 | RAD_ITS ---
STUDY: X-RAY - ABDOMEN/PELVIS REASON FOR EXAM: Female, 64 years old. ILEUS -- COLITIS TECHNIQUE: Two AP supine views of the abdomen and pelvis. COMPARISON: Prior study of 09/01/2019 FINDINGS: Normal visualized lung bases. There is an unremarkable bowel gas pattern. There is no demonstrated free abdominal air. The visualized liver, spleen and kidneys are grossly normal in size and morphology. A nasogastric tube is noted with the tip projecting over the left upper quadrant of the abdomen. This is most likely within the stomach. Normal visualized osseous structures. RAD/Abdomen Single View (Portable) IMPRESSION: Nasogastric tube present with tip projecting over the left upper quadrant of the abdomen, most likely within the stomach. The bowel gas pattern is unremarkable. Electronically Signed: Ric France MD at 16:58 EDT , Service support ,
--- NOTE | 2019-09-03 06:46 | PCM.PN.SRG ---
Patient Problems: Active and Suspected Problems Atrial fibrillation (Acute) Altered mental status (Acute) Colitis (Acute) Constipation (Acute) Large bowel obstruction (Acute) Subjective: Patient has had no nausea or vomiting overnight. NG was clamped for a good amount of the day yesterday. She is having gas in her stoma. - Physical Exam Vitals/I&O's: Vital Signs Temp Pulse Resp BP Pulse Ox 97.8 F 65 14 144/66 H 100 09/03/19 04:00 09/03/19 06:00 09/03/19 06:00 09/03/19 06:00 09/03/19 06:00 Oxygen Flow Rate (L/min) 1 Oxygen Delivery Method Nasal Cannula Weight: 163 lb 9.328 oz Body Mass Index (BMI) 27.8 Finger Stick Blood Glucose 86 Intake and Output for Last 24 Hours 09/01/19 09/02/19 09/03/19 23:59 23:59 23:59 Intake Total 2098.89 / 2104.39 1836.99 / 1889.49 311.21 / 311.21 Output Total 2300 / 2300 2355 / 3005 650 / 650 Balance -201.11 / -195.61 -518.01 / -1115.51 -338.79 / -338.79 General: Alert, Oriented x3 Lungs: Normal air movement Abdomen: Soft, Non-Distended Microbiology Past 72 Hours 08/30/19 12:00 Sputum, Expectorated/Coughed Gram Stain - Final 08/30/19 12:00 Sputum, Expectorated/Coughed Respiratory Culture - Final Laboratory Results 09/02/19 12:08: POC Glucose 121 H 09/02/19 17:49: POC Glucose 157 H 09/02/19 23:55: POC Glucose 133 H 09/03/19 04:10: WBC 13.0 H, RBC 3.67 L, Hgb 10.1 L, Hct 31.2 L, MCV 85.0, MCH 27.5, MCHC 32.4, RDW Std Deviation 50.9 H, RDW Coeff of [place] 16.8 H, Plt Count 668 H, MPV 9.7, Immature Gran % (Auto) 1.900 H, Neut % (Auto) 74.0 H, Lymph % (Auto) 12.4 L, [place] % (Auto) 10.7 H, Eos % (Auto) 0.8, Baso % (Auto) 0.2, Absolute Neuts (auto) 9.6 H, Absolute Lymphs (auto) 1.62, Nucleated RBC % 0 09/03/19 04:10: Sodium 133 L, Potassium 2.6 L*, Chloride 95 L, Carbon Dioxide 29.0, Anion Gap 9, BUN 9, Creatinine 0.79, Estim Creat Clear Calc 66.46, Est GFR (MDRD) Af Amer 94, Est GFR (MDRD) Non-Af 78, BUN/Creatinine Ratio 11.4, Glucose 137 H, Calcium 7.9 L Current Medications Atorvastatin Calcium (Lipitor) 80 mg PO QHS [facility] Last Admin: 09/02/19 21:26 Dose: Not Given Documented by: Chlorhexidine Gluconate () 1 each TOPICAL DAILY [facility] Last Admin: 09/02/19 09:59 Dose: 1 each Documented by: Enoxaparin Sodium (Lovenox) 70 mg SC Q12 [facility] Last Admin: 09/02/19 21:27 Dose: 70 mg Documented by: Hydromorphone HCl (Dilaudid Inj) 0.5 mg IV Q3H PRN PRN PRN Reason: pain 6-04/01 Last Admin: 09/03/19 05:01 Dose: 0.5 mg Documented by: Sodium Chloride () 250 mls @ 15 mls/hr IV .[id number] PRN PRN Reason: Saline Flush Last Infusion: 08/31/19 19:59 Dose: Infused Documented by: Sodium Chloride () 250 mls @ 15 mls/hr IV .[id number] PRN PRN Reason: Additional IVPB Infusion Pantoprazole Sodium 40 mg/ (Sodium Chloride) 110 mls @ 330 mls/hr IV Q12 [facility] Last Infusion: 09/02/19 21:45 Dose: Infused Documented by: Sodium Chloride () 500 mls @ 15 mls/hr IV PRN PRN PRN Reason: Blood Transfusion Last Infusion: 09/02/19 03:36 Dose: 0 mls/hr Documented by: Piperacillin Sod/Tazobactam (Sod 3.375 gm/ Sodium Chloride) 50 mls @ 12.5 mls/hr IV Q8 [facility] Last Admin: 09/03/19 05:02 Dose: 12.5 mls/hr Documented by: Diltiazem HCl 125 mg/ Dextrose 125 mls @ 5 mls/hr IV .Q25H [facility]; Protocol Last Titration: 09/03/19 06:00 Dose: 5 mg/hr, 5 mls/hr Documented by: Amiodarone HCl 360 mg/ (Dextrose) 200 mls @ 33.333 mls/hr CONT INF .Q6H [facility] Last Admin: 09/03/19 03:59 Dose: 1 mg/min, 33.3 mls/hr Documented by: Sodium Chloride () 500 mls @ 15 mls/hr IV .[id number] [facility] Last Admin: 09/02/19 09:58 Dose: Not Given Documented by: Potassium Chloride () 10 meq in 100 mls @ 100 mls/hr IV BOLUS Q1H [facility] Stop: 09/03/19 09:59 Insulin Human Lispro (Humalog Kwikpen (Bkc)) 0 unit SC Q6 [facility]; Protocol Last Admin: 09/03/19 05:15 Dose: Not Given Documented by: Ipratropium [place] (Atrovent) 0.5 mg INHALATION Q4H.RT [facility] Last Admin: 09/03/19 03:31 Dose: 0.5 mg Documented by: Melatonin (Melatonin) 3 mg PO QHS PRN PRN PRN Reason: INSOMNIA Ondansetron HCl (Zofran) 4 mg IV Q8H PRN PRN PRN Reason: NAUSEA/VOMITING Last Admin: 09/01/19 04:43 Dose: 4 mg Documented by: Prochlorperazine Edisylate (Compazine Iv) 10 mg IV Q4H PRN PRN PRN Reason: NAUSEA/VOMITING Last Admin: 09/01/19 08:41 Dose: 10 mg Documented by: Sodium Chloride () 10 - 40 ml IV UD PRN PRN Reason: SALINE FLUSH Last Admin: 09/03/19 05:01 Dose: 10 ml Documented by: Medical Necessity - Tobacco Use Smoking Status: Current every day smoker Tobacco Use: Cigarettes Assessment/Plan All Active Problems Atrial fibrillation (Acute) Sigmoid diverticulitis (Acute) Failure of outpatient treatment (Acute) Altered mental status (Acute) Colitis (Acute) Constipation (Acute) Large bowel obstruction (Acute) 64-year-old female status post left colectomy with end colostomy 1. Patient is getting diuresis. She has hypokalemia which will be replaced by the primary team. She is put less than 50 cc out of her NG over the last 24 hours. DC NG and start clear liquid diet. She is passing gas from her stoma. Stoma is pink. 2. Patient successfully cardioverted yesterday. Clark Lomax MD Pager: [facility] [address] [place] [address], [address] [place] [address] Office:
--- NOTE | 2019-09-03 06:49 | PN_ITS ---
Subjective: The patient was seen and examined at the bedside this morning. Events from the last 24 hours have been reviewed. The patient is currently afebrile, hemodynamically stable and maintaining appropriate oxygen saturations on 1 L/min via nasal cannula. The patient did undergo successful bedside cardioversion yesterday. She remains in normal sinus rhythm. Potassium was noted to be low this morning at 2.6. Per surgery, the patient will be started on a clear liquid diet this morning. Objective: The patient's most recent lab work, culture data and imaging studies have all been personally reviewed. Sputum culture from August 29 appears to be normal respiratory derrick. General: Alert, Cooperative, No apparent distress HEENT: Atraumatic, PERRLA, Normocephalic Oral: No Gingival or Mucosal Lesions/ Ulcerations Neck: Supple, No Nodes, Trachea Midline Lungs: No rhonchi, No wheeze, No rales Cardiovascular: Regular rate, Regular Rhythm, Normal S1, Normal S2, Murmur Abdomen: Bowel Sounds Present, Soft, - - + Ostomy Extremities: No clubbing, No cyanosis, No edema Skin: Incision Musculoskeletal: No Tenderness to Palpation of Joints or Extremities Lymphatic: No Cervical, Supraclavicular, or Inguinal Adenopathy Neurological: Neuro grossly intact Psych/Mental Status: Normal Affect, Appropriate Vital Signs Temp Pulse Resp BP Pulse Ox 97.8 F 65 14 144/66 H 100 09/03/19 04:00 09/03/19 06:00 09/03/19 06:00 09/03/19 06:00 09/03/19 06:00 Oxygen Flow Rate (L/min) 1 Oxygen Delivery Method Nasal Cannula Weight: 163 lb 9.328 oz Body Mass Index (BMI) 27.8 Finger Stick Blood Glucose 86 Intake and Output for Last 24 Hours 09/01/19 09/02/19 09/03/19 23:59 23:59 23:59 Intake Total 2098.89 / 2104.39 1836.99 / 1889.49 311.21 / 311.21 Output Total 2300 / 2300 2355 / 3005 650 / 650 Balance -201.11 / -195.61 -518.01 / -1115.51 -338.79 / -338.79 Labs (Last 48 Hours) 09/01/19 09/01/19 09/01/19 05:21 06:10 06:10 WBC 15.4 H RBC 3.44 L Hgb 9.4 L Hct 30.1 L MCV 87.5 MCH 27.3 MCHC 31.2 L RDW Std Deviation 54.5 H RDW Coeff of [place] 17.0 H Plt Count 545 H MPV 9.6 Immature Gran % (Auto) 3.000 H Neut % (Auto) 78.0 H Lymph % (Auto) 8.5 L [place] % (Auto) 9.7 Eos % (Auto) 0.5 Baso % (Auto) 0.3 Absolute Neuts (auto) 12.0 H Absolute Lymphs (auto) 1.31 Nucleated RBC % 0 Sodium 140 Potassium 3.3 L Chloride 108 H Carbon Dioxide 23.0 Anion Gap 9 BUN 14 Creatinine 0.64 Estim Creat Clear Calc 82.04 Est GFR (MDRD) Af Amer 119 Est GFR (MDRD) Non-Af 98 BUN/Creatinine Ratio 21.8 H Glucose 144 H Calcium 8.0 L Magnesium 1.7 Troponin I Triglycerides Cholesterol LDL Cholesterol VLDL Cholesterol HDL Cholesterol TSH 2.86 Free T4 POC Glucose 142 H 09/01/19 09/01/19 09/01/19 06:10 08:30 11:39 WBC RBC Hgb Hct MCV MCH MCHC RDW Std Deviation RDW Coeff of [place] Plt Count MPV Immature Gran % (Auto) Neut % (Auto) Lymph % (Auto) [place] % (Auto) Eos % (Auto) Baso % (Auto) Absolute Neuts (auto) Absolute Lymphs (auto) Nucleated RBC % Sodium Potassium Chloride Carbon Dioxide Anion Gap BUN Creatinine Estim Creat Clear Calc Est GFR (MDRD) Af Amer Est GFR (MDRD) Non-Af BUN/Creatinine Ratio Glucose Calcium Magnesium Troponin I 0.166 H 0.178 H Triglycerides 141 Cholesterol 75 LDL Cholesterol 26 VLDL Cholesterol 28 HDL Cholesterol 21 L TSH 2.76 Free T4 1.34 POC Glucose 09/01/19 09/01/19 09/01/19 12:44 16:05 18:21 WBC RBC Hgb Hct MCV MCH MCHC RDW Std Deviation RDW Coeff of [place] Plt Count MPV Immature Gran % (Auto) Neut % (Auto) Lymph % (Auto) [place] % (Auto) Eos % (Auto) Baso % (Auto) Absolute Neuts (auto) Absolute Lymphs (auto) Nucleated RBC % Sodium Potassium Chloride Carbon Dioxide Anion Gap BUN Creatinine Estim Creat Clear Calc Est GFR (MDRD) Af Amer Est GFR (MDRD) Non-Af BUN/Creatinine Ratio Glucose Calcium Magnesium Troponin I 0.155 H Triglycerides Cholesterol LDL Cholesterol VLDL Cholesterol HDL Cholesterol TSH Free T4 POC Glucose 132 H 131 H 09/01/19 09/02/19 09/02/19 23:10 04:15 04:15 WBC 13.1 H RBC 3.47 L Hgb 9.7 L Hct 29.7 L MCV 85.6 MCH 28.0 MCHC 32.7 RDW Std Deviation 52.3 H RDW Coeff of [place] 16.9 H Plt Count 618 H MPV 9.7 Immature Gran % (Auto) 2.700 H Neut % (Auto) 71.6 H Lymph % (Auto) 13.6 L [place] % (Auto) 11.0 H Eos % (Auto) 0.9 Baso % (Auto) 0.2 Absolute Neuts (auto) 9.4 H Absolute Lymphs (auto) 1.78 Nucleated RBC % 0 Sodium 136 Potassium 3.3 L Chloride 98 Carbon Dioxide 29.0 Anion Gap 9 BUN 10 Creatinine 0.71 Estim Creat Clear Calc 73.95 Est GFR (MDRD) Af Amer 106 Est GFR (MDRD) Non-Af 88 BUN/Creatinine Ratio 14.1 Glucose 152 H Calcium 7.7 L Magnesium Troponin I Triglycerides Cholesterol LDL Cholesterol VLDL Cholesterol HDL Cholesterol TSH Free T4 POC Glucose 147 H 09/02/19 09/02/19 09/02/19 05:48 12:08 17:49 WBC RBC Hgb Hct MCV MCH MCHC RDW Std Deviation RDW Coeff of [place] Plt Count MPV Immature Gran % (Auto) Neut % (Auto) Lymph % (Auto) [place] % (Auto) Eos % (Auto) Baso % (Auto) Absolute Neuts (auto) Absolute Lymphs (auto) Nucleated RBC % Sodium Potassium Chloride Carbon Dioxide Anion Gap BUN Creatinine Estim Creat Clear Calc Est GFR (MDRD) Af Amer Est GFR (MDRD) Non-Af BUN/Creatinine Ratio Glucose Calcium Magnesium Troponin I Triglycerides Cholesterol LDL Cholesterol VLDL Cholesterol HDL Cholesterol TSH Free T4 POC Glucose 182 H 121 H 157 H 09/02/19 09/03/19 09/03/19 23:55 04:10 04:10 WBC 13.0 H RBC 3.67 L Hgb 10.1 L Hct 31.2 L MCV 85.0 MCH 27.5 MCHC 32.4 RDW Std Deviation 50.9 H RDW Coeff of [place] 16.8 H Plt Count 668 H MPV 9.7 Immature Gran % (Auto) 1.900 H Neut % (Auto) 74.0 H Lymph % (Auto) 12.4 L [place] % (Auto) 10.7 H Eos % (Auto) 0.8 Baso % (Auto) 0.2 Absolute Neuts (auto) 9.6 H Absolute Lymphs (auto) 1.62 Nucleated RBC % 0 Sodium 133 L Potassium 2.6 L* Chloride 95 L Carbon Dioxide 29.0 Anion Gap 9 BUN 9 Creatinine 0.79 Estim Creat Clear Calc 66.46 Est GFR (MDRD) Af Amer 94 Est GFR (MDRD) Non-Af 78 BUN/Creatinine Ratio 11.4 Glucose 137 H Calcium 7.9 L Magnesium Troponin I Triglycerides Cholesterol LDL Cholesterol VLDL Cholesterol HDL Cholesterol TSH Free T4 POC Glucose 133 H Microbiology 08/30/19 12:00 Sputum, Expectorated/Coughed Gram Stain - Final 08/30/19 12:00 Sputum, Expectorated/Coughed Respiratory Culture - Final Clinical Impression(s) from Imaging Studies Brain CT 08/24/19 14:45 IMPRESSION: No acute intracranial abnormality. Chronic ischemic and atrophic changes. Electronically Signed: Theo James, at 17:05 EST Tel , Service support , Abdomen/Pelvis CT 08/24/19 14:48 IMPRESSION: Colitis in the sigmoid colon. No bowel obstruction. Constipation. No free air, free fluid or fluid collection. Electronically Signed: Theo James, at 17:08 EST Tel , Service support , Brain MRI 08/25/19 09:00 IMPRESSION: Involutional changes of the brain, as described above. Electronically Signed: Carlitos Crooks, at 14:50 EST Tel , Service support , Head MRA 08/25/19 09:00 IMPRESSION: Normal MRA of the head Electronically Signed: Carlitos Crooks, at 14:35 EST Tel , Service support , Neck MRA 08/25/19 09:00 IMPRESSION: Normal bilateral cervical carotid and vertebral arteries. Electronically Signed: Carlitos Crooks, at 15:40 EST Tel , Service support , Chest X-Ray 08/25/19 21:28 IMPRESSION: Satisfactory position of the support lines and tubes. Patchy opacity at the right lung base which is likely infectious in etiology. No acute thoracic pathology. Electronically Signed: Theo James, at 22:39 EST Tel , Service support , Chest X-Ray 08/29/19 09:24 IMPRESSION: 1. Developing bilateral infiltrates suggesting edema or pneumonia. Electronically Signed: Helder Elizalde MD (Brooks) at 14:20 EDT , Service support , Abdomen/Pelvis CT 09/01/19 06:56 IMPRESSION: Status post colostomy in the left anterior abdominal wall. Postoperative changes in the peritoneal fat in the left upper and mid mesenteric fat. Left anterior pararenal space fluid as well as fluid in the paracolic gutters and in the pelvis. Fluid filled right hemicolon as well as mild fluid-filled dilated small bowel loops in the lower abdomen and pelvis. Electronically Signed: Delta Medina, at 9:49 EDT , Service support , Chest CTA 09/01/19 08:07 IMPRESSION: There is no evidence of pulmonary embolism. Diffuse bilateral groundglass appearance worse in the right lung with a small right pleural effusion with underlying atelectasis and/or infiltrate as well as mild infiltration and/or atelectasis at the left lung base. Electronically Signed: Delta Adam, at 9:53 EDT , Service support , Chest X-Ray 09/01/19 11:30 IMPRESSION: Nasogastric tube coiled in left upper quadrant likely in the body the stomach. Electronically Signed: Skinny Good MD at 11:52 EDT Tel , Service support , Medical Necessity - Tobacco Use Smoking Status: Current every day smoker Tobacco Use: Cigarettes Assessment/Plan All Active Problems Atrial fibrillation (Acute) Sigmoid diverticulitis (Acute) Failure of outpatient treatment (Acute) Altered mental status (Acute) Colitis (Acute) Constipation (Acute) Large bowel obstruction (Acute) RECOMMENDATIONS: 1. Continue rate/rhythm control strategy per cardiology recommendations. 2. Continue scheduled Atrovent aerosols. 3. Wean supplemental oxygen to maintain saturations at or above 90%. 4. Encourage incentive spirometer use and mobilize patient as tolerated. 5. Okay to discontinue Zosyn from my perspective. 6. Aggressive electrolyte repletion as ordered. 7. Dietary advancement per surgery recommendations. 8. The patient is medically stable for transfer out of the intensive care unit. IMPRESSIONS: 1. New onset atrial fibrillation with rapid ventricular rate/heart failure with preserved ejection fraction/pulmonary hypertension Continue current medical management per cardiology recommendations. The patient was successfully cardioverted on September 01. Patient to be transitioned to p.o. amiodarone and Cardizem today. 2. Severe sepsis secondary to peritonitis with fecal contamination secondary to sigmoid stricture Continue routine postoperative care and pain control per surgery recommendations. Zosyn can likely be discontinued from my perspective. 3. Acute blood loss anemia The patient has received a total of 4 units of packed red blood cells throughout this hospitalization. Hemoglobin is stable. Continue to monitor H&H daily with plans to transfuse if hemoglobin drops below 7 g/dL. 4. Acute respiratory failure Improving. The patient does report that she previously did not have a baseline supplemental oxygen requirement. The etiology for the patient's supplemental oxygen requirement was felt to be secondary to hypervolemia. The patient has responded favorably to the use of diuretics. Recommend continuing to wean oxygen as tolerated to maintain saturations at or above 90%. Encourage incentive spirometer use and mobilize patient as tolerated. 5. Hypokalemia Aggressive electrolyte repletion as ordered. This note was generated with [employer] dictation software. It may contain incorrect words, spelling, and punctuation that were not noted in checking the note before signing. Inpatient E&M: 11728 Subs Hosp L2
[2019-09-03] MEDS: Potassium Chloride 10mEq/100mL 10 MEQ/100 ML IV.SOLN. 100 MEQ IV BOLUS ×4 (07:00→10:10)
--- NOTE | 2019-09-03 09:28 | PN.CARD_ITS ---
Subjectve: Patient doing much better today, status post DC cardioversion yesterday with success from atrial fibrillation to normal sinus rhythm. Telemetry demonstrates maintenance of normal sinus rhythm overnight. No additional atrial fibrillation. NG tube to be removed followed by clear liquid medications. IV amiodarone and IV Cardizem drip still infusing. Objective: Vital Signs Temp Pulse Resp BP Pulse Ox 97.8 F 76 16 144/66 H 93 09/03/19 04:00 09/03/19 07:04 09/03/19 07:04 09/03/19 06:00 09/03/19 07:14 Oxygen Flow Rate (L/min) 2 Oxygen Delivery Method Room Air Weight: 163 lb 9.328 oz Body Mass Index (BMI) 27.8 Finger Stick Blood Glucose 86 Intake and Output for Last 24 Hours 09/01/19 09/02/19 09/03/19 23:59 23:59 23:59 Intake Total 2098.89 / 2104.39 1836.99 / 1889.49 506.21 / 506.21 Output Total 2300 / 2300 2355 / 3005 650 / 650 Balance -201.11 / -195.61 -518.01 / -1115.51 -143.79 / -143.79 General: Awake, Alert, Oriented x 3 HEENT: PERRL, EOMI, Sclera Non Icteric Neck: Supple, Good ROM, No Lymph Node Enlargement Lungs: Expiratory Wheezes-Tay Cardiovascular: Regular Rhythm, Normal S2, No Rubs, No Gallops Murmur Murmur: Grade 2/6 Vascular: No Carotid Bruits, Normal Femoral Pulses, Normal Radial Pulses, Normal Dorsalis Pedal Pulse, Normal Posterior Tibial Pulses Abdomen: Bowel Sounds Present, Soft, Non Tender, No HSM, No Organomegaly Extremities: No Cyanosis, No Clubbing, No edema Neurological: No Focal Motor or Sensory Deficit 09/03/19 04:10: WBC 13.0 H, RBC 3.67 L, Hgb 10.1 L, Hct 31.2 L, MCV 85.0, MCH 27.5, MCHC 32.4, Plt Count 668 H, MPV 9.7, Immature Gran % (Auto) 1.900 H, Neut % (Auto) 74.0 H, Lymph % (Auto) 12.4 L, [place] % (Auto) 10.7 H, Eos % (Auto) 0.8, Baso % (Auto) 0.2, Absolute Neuts (auto) 9.6 H, Nucleated RBC % 0 09/03/19 04:10: Sodium 133 L, Potassium 2.6 L*, Chloride 95 L, Carbon Dioxide 29.0, Anion Gap 9, BUN 9, Creatinine 0.79, Est GFR (MDRD) Af Amer 94, Est GFR (MDRD) Non-Af 78, BUN/Creatinine Ratio 11.4, Glucose 137 H, Calcium 7.9 L Rhythm: EKG: ECHO: Stress Test: Cardiac Cath: PCI: CT Surgery: Holter monitor: EPS: PPM: CXR: Chest CT Scan: Medical Necessity - Tobacco Use Smoking Status: Current every day smoker Tobacco Use: Cigarettes Assessment/Plan 1. Atrial fibrillation with rapid ventricular response: The patient developed new onset rapid ventricular response secondary to atrial fibrillation on 09/01/2019, and CT scan demonstrated no evidence of pulmonary embolism at this time. Her peak troponin is 0.178, we will hold off on diagnostic coronary catheterization at this time. We will plan for noninvasive stress echocardiogram once the patient is fully recovered from her GI illness. Patient underwent successful DC cardioversion yesterday with a single shock and is maintained normal sinus rhythm. Now that she is able to eat, we will discontinue her IV amiodarone drip and switch her to amiodarone 200 mg p.o. twice daily for 5 days followed by 200 mg a day. We will obtain an EKG today to monitor her QT corrected interval. In addition we will discontinue her IV Cardizem drip and switch her to Cardizem CD 180 mg p.o. daily and titrate up from there. 2. Dyspnea: The patient on echocardiogram demonstrated relatively intact LV function with at least moderate pulmonary pretension with an RVSP of 55 mmHg. This puts her at increased risk for atrial fibrillation going forward. Patient is responding to IV Lasix therapy. Recommend switching her to Lasix 40 mg p.o. daily going forward. This will ensure adequate fluid balance. 3. Thank you very much for the opportunity to participate in the cardiac care of your patient. Patient may be transferred to PCU from a cardiac standpoint if bed is needed. Inpatient E&M: 88476 Subs Hosp L2
--- NOTE | 2019-09-03 10:05 | EKG12_ITS ---
Test Reason : POST-CARDIOVERSION Blood Pressure : / mmHG Vent. Rate : 070 BPM Atrial Rate : 070 BPM P-R Int : 138 ms QRS Dur : 074 ms QT Int : 472 ms P-R-T Axes : 024 047 056 degrees QTc Int : 509 ms Normal sinus rhythm Nonspecific ST abnormality Prolonged QT Abnormal ECG When compared with ECG of 02-SEP-2019 11:54, MANUAL COMPARISON REQUIRED, DATA IS UNCONFIRMED Confirmed by LILLY CHACKO, KINSEY ([id number]), subeditor MARYBETH ALBERTO ([id number]) on 09/14/2019 8:40:33 AM Referred By: Raulito Pemberton Confirmed By:KINSEY CARR MD
[2019-09-03] MEDS: CHLORHEXIDINE GLUC 2% CLOTH 1 EACH TOWELETTE TOPICAL (10:10)
[2019-09-03] MEDS: Enoxaparin 80 MG/0.8 ML Syringe 70 MG SC ×2 (10:11→23:10)
--- NOTE | 2019-09-03 10:23 | CASEMGMT ---
SW spoke w/pt and daughter in regard to discharge plan. They both confirm plan will continue home with home health, pt adamantly declining rehab referral even for a short stay. Daughter states that pt will eventually be able to stay w/her, and initially pt's son will be available to assist. Daughter expressed the biggest concern is pt's three dogs as they jump and pt cannot care for them. Pt states she does not want to put dogs elsewhere even temporarily. Daughter states pt would risk own health to care for the dogs. SW gently reminded pt that she needs to think of her own health and if the dogs jump on her she could end up getting hurt and back in the hospital. Pt and daughter not in agreement on what to, and this appears to be an ongoing discussion amongst family to come up with the best plan. Pt and daughter also asked about home health, SW explained will ask CM to speak w/them further about home health. Daughter also brought in LW/POA forms, SW copied and placed copies in chart, gave originals back to daughter. Pt's son is alternate POA, pt's who is listed as primary in June. CM aware pt and daughter have questions about home health, will speak w/them shortly. No further social service needs anticipated at this time. FRED [place]
--- NOTE | 2019-09-03 10:34 | CASEMGMT ---
RN CM Note: Pt is declining SNF on dc. Discussed with pt and daughter re: Home with [facility] as planned previously. Pt and daughter are agreeable. Discussed pt to work with PT/OT and work towards increased activity and safety for home. Daughter is staying until Friday, then son is coming to stay with pt. Pt is on oxygen, is not on home O2. Anticipate pt will not need on discharge, but home oxygen testing can be completed if pt is not weaned. Wilner ARMANDO RN ACM
--- NOTE | 2019-09-03 12:10 | NURSING ---
This RN was performing patient assessment when patient's daughter had stated my mom's arm has been looking swollen this afternoon. Upon further assessment patients left antecubital region was noted to be edematous +3. Site was also to be noted to be reddened, hot to touch, with throbbing. Left radial pulse present. Dr. Trevino and Dr. Sweeney notified.
--- NOTE | 2019-09-03 13:09 | PCM.PN.HOSP ---
Patient Problems: Active and Suspected Problems Atrial fibrillation (Acute) Altered mental status (Acute) Colitis (Acute) Constipation (Acute) Large bowel obstruction (Acute) Subjective: Feeling better, had her NG pulled this morning and has tolerated some liquids Vitals/I&O's: Vital Signs Temp Pulse Resp BP Pulse Ox 97.8 F 76 16 144/66 H 93 09/03/19 04:00 09/03/19 07:04 09/03/19 07:04 09/03/19 06:00 09/03/19 07:14 Oxygen Flow Rate (L/min) 3 Oxygen Delivery Method Nasal Cannula Weight: 163 lb 9.328 oz Body Mass Index (BMI) 27.8 Finger Stick Blood Glucose 86 Intake and Output for Last 24 Hours 09/01/19 09/02/19 09/03/19 23:59 23:59 23:59 Intake Total 2098.89 / 2104.39 1836.99 / 1889.49 1074.54 / 1074.54 Output Total 2300 / 2300 2355 / 3005 650 / 650 Balance -201.11 / -195.61 -518.01 / -1115.51 424.54 / 424.54 General: Alert, Oriented x3, Cooperative, No apparent distress HEENT: Atraumatic, PERRLA, EOMI, Normocephalic Oral: Moist Mucosa Neck: Supple, No JVD Lungs: Clear to auscultation, Normal air movement, No rhonchi, No wheeze, No rales, Diminished Cardiovascular: Regular rate, Regular Rhythm, Normal S1, Normal S2, No murmurs Abdomen: Soft, Non-Distended, No Hepato-splenomegaly, - - VAC in place, ostomy with output Extremities: No edema, Capillary Refill Less than 3 Seconds Skin: No rashes, No breakdown Neurological: Neuro grossly intact, Sensory exam intact to light touch and pain Psych/Mental Status: Normal Affect, Appropriate Microbiology Past 72 Hours 08/30/19 12:00 Sputum, Expectorated/Coughed Gram Stain - Final 08/30/19 12:00 Sputum, Expectorated/Coughed Respiratory Culture - Final Laboratory Results 09/02/19 17:49: POC Glucose 157 H 09/02/19 23:55: POC Glucose 133 H 09/03/19 04:10: WBC 13.0 H, RBC 3.67 L, Hgb 10.1 L, Hct 31.2 L, MCV 85.0, MCH 27.5, MCHC 32.4, RDW Std Deviation 50.9 H, RDW Coeff of [place] 16.8 H, Plt Count 668 H, MPV 9.7, Immature Gran % (Auto) 1.900 H, Neut % (Auto) 74.0 H, Lymph % (Auto) 12.4 L, [place] % (Auto) 10.7 H, Eos % (Auto) 0.8, Baso % (Auto) 0.2, Absolute Neuts (auto) 9.6 H, Absolute Lymphs (auto) 1.62, Nucleated RBC % 0 09/03/19 04:10: Sodium 133 L, Potassium 2.6 L*, Chloride 95 L, Carbon Dioxide 29.0, Anion Gap 9, BUN 9, Creatinine 0.79, Estim Creat Clear Calc 66.46, Est GFR (MDRD) Af Amer 94, Est GFR (MDRD) Non-Af 78, BUN/Creatinine Ratio 11.4, Glucose 137 H, Calcium 7.9 L Current Medications Amiodarone HCl (Cordarone) 200 mg PO BID [facility] Stop: 09/08/19 10:01 Amiodarone HCl (Cordarone) 200 mg PO DAILY [facility] Atorvastatin Calcium (Lipitor) 80 mg PO QHS [facility] Last Admin: 09/02/19 21:26 Dose: Not Given Documented by: Chlorhexidine Gluconate () 1 each TOPICAL DAILY [facility] Last Admin: 09/03/19 10:10 Dose: 1 each Documented by: Diltiazem HCl (Cardizem Cd) 180 mg PO DAILY [facility] Enoxaparin Sodium (Lovenox) 70 mg SC Q12 [facility] Last Admin: 09/03/19 10:11 Dose: 70 mg Documented by: Furosemide (Lasix) 20 mg PO DAILY [facility] Hydromorphone HCl (Dilaudid Inj) 0.5 mg IV Q3H PRN PRN PRN Reason: pain -04/01 Last Admin: 09/03/19 05:01 Dose: 0.5 mg Documented by: Sodium Chloride () 250 mls @ 15 mls/hr IV .[id number] PRN PRN Reason: Saline Flush Last Infusion: 08/31/19 19:59 Dose: Infused Documented by: Sodium Chloride () 250 mls @ 15 mls/hr IV .[id number] PRN PRN Reason: Additional IVPB Infusion Pantoprazole Sodium 40 mg/ (Sodium Chloride) 110 mls @ 330 mls/hr IV Q12 [facility] Last Infusion: 09/03/19 10:37 Dose: Infused Documented by: Sodium Chloride () 500 mls @ 15 mls/hr IV PRN PRN PRN Reason: Blood Transfusion Last Infusion: 09/02/19 03:36 Dose: 0 mls/hr Documented by: Piperacillin Sod/Tazobactam (Sod 3.375 gm/ Sodium Chloride) 50 mls @ 12.5 mls/hr IV Q8 [facility] Last Infusion: 09/03/19 09:30 Dose: Infused Documented by: Sodium Chloride () 500 mls @ 15 mls/hr IV .[id number] [facility] Last Admin: 09/02/19 09:58 Dose: Not Given Documented by: Insulin Human Lispro (Humalog Kwikpen (Bkc)) 0 unit SC Q6 [facility]; Protocol Last Admin: 09/03/19 13:03 Dose: Not Given Documented by: Ipratropium [place] (Atrovent) 0.5 mg INHALATION Q4H.RT [facility] Last Admin: 09/03/19 11:16 Dose: 0.5 mg Documented by: Melatonin (Melatonin) 3 mg PO QHS PRN PRN PRN Reason: INSOMNIA Ondansetron HCl (Zofran) 4 mg IV Q8H PRN PRN PRN Reason: NAUSEA/VOMITING Last Admin: 09/01/19 04:43 Dose: 4 mg Documented by: Potassium Chloride (K-Dur) 20 meq PO DAILYCM [facility] Prochlorperazine Edisylate (Compazine Iv) 10 mg IV Q4H PRN PRN PRN Reason: NAUSEA/VOMITING Last Admin: 09/01/19 08:41 Dose: 10 mg Documented by: Sodium Chloride () 10 - 40 ml IV UD PRN PRN Reason: SALINE FLUSH Last Admin: 09/03/19 05:01 Dose: 10 ml Documented by: Medical Necessity - Tobacco Use Smoking Status: Current every day smoker Tobacco Use: Cigarettes Assessment/Plan All Active Problems Atrial fibrillation (Acute) Sigmoid diverticulitis (Acute) Failure of outpatient treatment (Acute) Altered mental status (Acute) Colitis (Acute) Constipation (Acute) Large bowel obstruction (Acute) 1. Sigmoid colitis and severe sepsis secondary to peritonitis fecal contamination status post colectomy with transverse ostomy/IBS with constipation -Continue with Zosyn -NG tube was removed this morning and she is tolerating some clears -Had some ostomy output -Continue with wound VAC for incision -Appreciate surgical assistance -Was on amities as an outpatient for chronic constipation. She was initially given lactulose which caused her to have multiple bowel movements she continued to get worse necessitating surgical intervention 2. Rule out CVA/right facial droop/slurred speech/HTN/HLD/CAD status post stent/A. fib with RVR/chronic diastolic CHF -MRIs and MRAs of her head and neck were negative for stroke -When able to tolerate, can continue with her home blood pressure medications as well as her cholesterol medication -Continue with her Plavix, for her history of CAD -Status post cardioversion was started on amiodarone as well as Cardizem which will need to be continued -Also continue with Lasix p.o. 3. Acute on chronic normocytic anemia with acute blood loss from surgery -She is received 4 units of PRBCs during the course of her hospitalization partly secondary to her surgical procedures -Hemoglobin is 10.1 today DVT: Lovenox Inpatient E&M: 15125 Subs Hosp L2
[2019-09-03 13:11] LABS: Bedside Glucose 129 mg/dL (70-110)
--- NOTE | 2019-09-03 14:36 | NURSING ---
Colostomy appliance removed. there was a moderate amount of liquid brown/green stool noted in the appliance. patient and daughter wanting to watch appliance change. peristomal skin is intact. stoma is well budded and dark pink in color. stoma measures approx 1 1/4. did off set the opening so the appliance is not so close to the abdominal incision. cleansed peristomal skin with warm water. pat dry. applied a new 2 piece flat [place] appliance with a small amount of stoma paste. pt tolerated well.
[2019-09-03] MEDS: Amiodarone 200 MG Tablet PO (23:08)
[2019-09-03] MEDS: Atorvastatin Calcium 80 MG Tablet PO (23:08)
--- NOTE | 2019-09-03 23:58 | NURSING ---
This RN called pt daughter (Marla) at this time to update her that patient is stable and was transferred to [facility].
[2019-09-04] VITALS (14 sets, daily range): BP systolic 146–164; BP diastolic 68–86; PULSE 67–131; RESP 15–21; TEMP 36.3–36.8; O2SAT 92–98
[2019-09-04 01:41] LABS: Bedside Glucose 122 mg/dL (70-110)
--- NOTE | 2019-09-04 05:15 | NURSING ---
Pt reported 8/10 back pain. Requested something for pain. Before this RN left the room, pt had nodded back off. Not awakening at this time. Will continue to monitor pain.
[2019-09-04 07:35] LABS: Bedside Glucose 115 mg/dL (70-110)
[2019-09-04] MEDS: Ipratropium 0.5 MG/2.5 ML SOLUTION INHALATION ×4 (07:36→23:11)
[2019-09-04] MEDS: dilTIAZem CD 180 MG Capsule PO (09:12)
[2019-09-04] MEDS: Furosemide 20 MG Tablet PO (09:13)
[2019-09-04] MEDS: Amiodarone 200 MG Tablet PO ×2 (09:13→21:20)
[2019-09-04] MEDS: Enoxaparin 80 MG/0.8 ML Syringe 70 MG SC ×2 (09:14→21:20)
[2019-09-04] MEDS: 0.9% Saline Lock 10 ML Syringe IV ×3 (09:25→21:21)
[2019-09-04] MEDS: HYDROmorphone 0.5 MG/0.5 ML SYRINGE IV ×4 (09:25→21:22)
[2019-09-04 09:57] LABS: Anion Gap 8 (5-15); BUN 12 mg/dL (7-18); BUN/Creat Ratio 15.1 RATIO (10-20); Calcium,Total 8.1 mg/dL (8.5-10.1); Chloride 103 mmol/L (98-107); EST Glomerular Filtration Rate 77 mL/min (>60); Est Glom Filt Rate - Afr Amer 93 mL/min (>60); Estimated Creatinine Clearance 65.63 ml/min; Glucose 114 mg/dL (74-106); Potassium 4.3 mmol/L (3.5-5.1); Sodium Level 134 mmol/L (136-145)
--- NOTE | 2019-09-04 10:23 | PN_ITS ---
Patient Problems: Active and Suspected Problems Atrial fibrillation (Acute) Altered mental status (Acute) Colitis (Acute) Constipation (Acute) Large bowel obstruction (Acute) Subjective: No issues overnight, tolerating liquid diet and had her NG pulled out yesterday. She did have an infiltration of her amiodarone in her left upper extremity which is being monitored. The redness seems to be improving. Vitals/I&O's: Vital Signs Temp Pulse Resp BP Pulse Ox 97.6 F L 77 16 164/78 H 97 09/04/19 08:51 09/04/19 08:51 09/04/19 08:51 09/04/19 08:51 09/04/19 08:51 Oxygen Flow Rate (L/min) 2 Oxygen Delivery Method Room Air Weight: 162 lb 0.636 oz Body Mass Index (BMI) 27.8 Finger Stick Blood Glucose 86 Intake and Output for Last 24 Hours 09/02/19 09/03/19 09/04/19 23:59 23:59 23:59 Intake Total 1836.99 / 1889.49 2009.54 / 2008.54 152.25 / 152.25 Output Total 2355 / 3005 1050 / 1050 150 / 150 Balance -518.01 / -1115.51 959.54 / 959.54 2.25 / 2.25 General: Alert, Oriented x3, Cooperative, No apparent distress HEENT: Atraumatic, PERRLA, EOMI, Normocephalic Oral: Moist Mucosa Neck: Supple, No JVD Lungs: Clear to auscultation, Normal air movement, No rhonchi, No wheeze, No rales, Diminished Cardiovascular: Regular rate, Regular Rhythm, Normal S1, Normal S2, No murmurs Abdomen: Soft, Non-Distended, No Hepato-splenomegaly, - - VAC in place, ostomy with output Extremities: No edema, Capillary Refill Less than 3 Seconds, left upper extremity redness from infiltration of amiodarone appears to be improving Skin: No rashes, No breakdown Neurological: Neuro grossly intact, Sensory exam intact to light touch and pain Psych/Mental Status: Normal Affect, Appropriate Microbiology Past 72 Hours 08/30/19 12:00 Sputum, Expectorated/Coughed Gram Stain - Final 08/30/19 12:00 Sputum, Expectorated/Coughed Respiratory Culture - Final Laboratory Results 09/03/19 13:03: POC Glucose 129 H 09/03/19 23:02: POC Glucose 122 H 09/04/19 06:56: POC Glucose 115 H 09/04/19 09:09: Sodium 134 L, Potassium 4.3, Chloride 103, Carbon Dioxide 23.0, Anion Gap 8, BUN 12, Creatinine 0.80, Estim Creat Clear Calc 65.63, Est GFR (MDRD) Af Amer 93, Est GFR (MDRD) Non-Af 77, BUN/Creatinine Ratio 15.1, Glucose 114 H, Calcium 8.1 L Current Medications Amiodarone HCl (Cordarone) 200 mg PO BID [facility] Stop: 09/08/19 10:01 Last Admin: 09/04/19 09:13 Dose: 200 mg Documented by: Amiodarone HCl (Cordarone) 200 mg PO DAILY [facility] Atorvastatin Calcium (Lipitor) 80 mg PO QHS [facility] Last Admin: 09/03/19 23:08 Dose: 80 mg Documented by: Chlorhexidine Gluconate () 1 each TOPICAL DAILY [facility] Last Admin: 09/04/19 09:13 Dose: Not Given Documented by: Diltiazem HCl (Cardizem Cd) 180 mg PO DAILY [facility] Last Admin: 09/04/19 09:12 Dose: 180 mg Documented by: Enoxaparin Sodium (Lovenox) 70 mg SC Q12 [facility] Last Admin: 09/04/19 09:14 Dose: 70 mg Documented by: Furosemide (Lasix) 20 mg PO DAILY [facility] Last Admin: 09/04/19 09:13 Dose: 20 mg Documented by: Hydromorphone HCl (Dilaudid Inj) 0.5 mg IV Q3H PRN PRN PRN Reason: pain 6-10 Last Admin: 09/04/19 09:25 Dose: 0.5 mg Documented by: Sodium Chloride () 250 mls @ 15 mls/hr IV .[id number] PRN PRN Reason: Saline Flush Last Infusion: 09/04/19 06:53 Dose: 0 mls/hr Documented by: Sodium Chloride () 250 mls @ 15 mls/hr IV .[id number] PRN PRN Reason: Additional IVPB Infusion Pantoprazole Sodium 40 mg/ (Sodium Chloride) 110 mls @ 330 mls/hr IV Q12 [facility] Last Infusion: 09/03/19 23:19 Dose: Infused Documented by: Sodium Chloride () 500 mls @ 15 mls/hr IV PRN PRN PRN Reason: Blood Transfusion Last Infusion: 09/03/19 23:17 Dose: Infused Documented by: Piperacillin Sod/Tazobactam (Sod 3.375 gm/ Sodium Chloride) 50 mls @ 12.5 mls/hr IV Q8 [facility] Last Admin: 09/04/19 06:53 Dose: 12.5 mls/hr Documented by: Sodium Chloride () 500 mls @ 15 mls/hr IV .[id number] [facility] Last Admin: 09/03/19 18:31 Dose: Not Given Documented by: Insulin Human Lispro (Humalog Kwikpen (Bkc)) 0 unit SC [facility]; Protocol Last Admin: 09/04/19 06:57 Dose: Not Given Documented by: Ipratropium [place] (Atrovent) 0.5 mg INHALATION Q4H.RT [facility] Last Admin: 09/04/19 07:36 Dose: 0.5 mg Documented by: Melatonin (Melatonin) 3 mg PO QHS PRN PRN PRN Reason: INSOMNIA Nutritional Formula ([place] - [place] Flavor[facility] Last Admin: 09/04/19 09:11 Dose: 1 packet Documented by: Ondansetron HCl (Zofran) 4 mg IV Q8H PRN PRN PRN Reason: NAUSEA/VOMITING Last Admin: 09/01/19 04:43 Dose: 4 mg Documented by: Potassium Chloride (K-Dur) [facility] Last Admin: 09/04/19 09:12 Dose: 20 meq Documented by: Prochlorperazine Edisylate (Compazine Iv) 10 mg IV Q4H PRN PRN PRN Reason: NAUSEA/VOMITING Last Admin: 09/01/19 08:41 Dose: 10 mg Documented by: Sodium Chloride () 10 - 40 ml IV UD PRN PRN Reason: SALINE FLUSH Last Admin: 09/04/19 09:25 Dose: 10 ml Documented by: STROKE Vital Signs/Narrative: Vital Signs Temp Pulse Resp BP Pulse Ox 09/04/19 08:51 97.6 F L 77 16 164/78 H 97 09/04/19 07:36 93 18 98 09/04/19 07:16 67 Medical Necessity - Tobacco Use Smoking Status: Current every day smoker Tobacco Use: Cigarettes Assessment/Plan All Active Problems Atrial fibrillation (Acute) Sigmoid diverticulitis (Acute) Failure of outpatient treatment (Acute) Altered mental status (Acute) Colitis (Acute) Constipation (Acute) Large bowel obstruction (Acute) 1. Sigmoid colitis and severe sepsis secondary to peritonitis fecal contamination status post colectomy with transverse ostomy/IBS with constipation -Continue with Zosyn -NG tube was removed and she is tolerating some clears -Had some ostomy output -Continue with wound VAC for incision -Appreciate surgical assistance -Was on amitiza as an outpatient for chronic constipation. She was initially given lactulose which caused her to have multiple bowel movements she continued to get worse necessitating surgical intervention 2. Rule out CVA/right facial droop/slurred speech/HTN/HLD/CAD status post stent/A. fib with RVR/chronic diastolic CHF -MRIs and MRAs of her head and neck were negative for stroke -When able to tolerate, can continue with her home blood pressure medications as well as her cholesterol medication -Continue with her Plavix, for her history of CAD -Status post cardioversion was started on amiodarone as well as Cardizem which will need to be continued -Also continue with Lasix p.o. 3. Acute on chronic normocytic anemia with acute blood loss from surgery -She is received 4 units of PRBCs during the course of her hospitalization partly secondary to her surgical procedures -Hemoglobin is 10.1 4. Anxiety/depression -As she is taking p.o. can resume her Wellbutrin and her Cymbalta -Also continue her doxepin DVT: Lovenox Inpatient E&M: 46326 Subs Hosp L2
--- NOTE | 2019-09-04 10:30 | PCM.PN.SRG ---
Patient Problems: Active and Suspected Problems Atrial fibrillation (Acute) Altered mental status (Acute) Colitis (Acute) Constipation (Acute) Large bowel obstruction (Acute) Subjective: Patient sitting up in a chair. States abdominal pain is improved. Objective: Ostomy is functioning well. Wound VAC is in place. Abdomen is soft - Physical Exam Vitals/I&O's: Vital Signs Temp Pulse Resp BP Pulse Ox 97.6 F L 77 16 164/78 H 97 09/04/19 08:51 09/04/19 08:51 09/04/19 08:51 09/04/19 08:51 09/04/19 08:51 Oxygen Flow Rate (L/min) 2 Oxygen Delivery Method Room Air Weight: 162 lb 0.636 oz Body Mass Index (BMI) 27.8 Finger Stick Blood Glucose 86 Intake and Output for Last 24 Hours 09/02/19 09/03/19 09/04/19 23:59 23:59 23:59 Intake Total 1836.99 / 1889.49 2009.54 / 2009.54 152.25 / 152.25 Output Total 2355 / 3005 1050 / 1050 150 / 150 Balance -518.01 / -1115.51 959.54 / 959.54 2.25 / 2.25 Microbiology Past 72 Hours 08/30/19 12:00 Sputum, Expectorated/Coughed Gram Stain - Final 08/30/19 12:00 Sputum, Expectorated/Coughed Respiratory Culture - Final Laboratory Results 09/03/19 13:03: POC Glucose 129 H 09/03/19 23:02: POC Glucose 122 H 09/04/19 06:56: POC Glucose 115 H 09/04/19 09:09: Sodium 134 L, Potassium 4.3, Chloride 103, Carbon Dioxide 23.0, Anion Gap 8, BUN 12, Creatinine 0.80, Estim Creat Clear Calc 65.63, Est GFR (MDRD) Af Amer 93, Est GFR (MDRD) Non-Af 77, BUN/Creatinine Ratio 15.1, Glucose 114 H, Calcium 8.1 L Current Medications Amiodarone HCl (Cordarone) 200 mg PO BID [facility] Stop: 09/08/19 10:01 Last Admin: 09/04/19 09:13 Dose: 200 mg Documented by: Amiodarone HCl (Cordarone) 200 mg PO DAILY [facility] Atorvastatin Calcium (Lipitor) 80 mg PO QHS [facility] Last Admin: 09/03/19 23:08 Dose: 80 mg Documented by: Chlorhexidine Gluconate () 1 each TOPICAL DAILY [facility] Last Admin: 09/04/19 09:13 Dose: Not Given Documented by: Diltiazem HCl (Cardizem Cd) 180 mg PO DAILY [facility] Last Admin: 09/04/19 09:12 Dose: 180 mg Documented by: Duloxetine HCl (Cymbalta) 60 mg PO DAILY [facility] Duloxetine HCl (Cymbalta) 30 mg PO DAILY [facility] Enoxaparin Sodium (Lovenox) 70 mg SC Q12 [facility] Last Admin: 09/04/19 09:14 Dose: 70 mg Documented by: Furosemide (Lasix) 20 mg PO DAILY [facility] Last Admin: 09/04/19 09:13 Dose: 20 mg Documented by: Hydromorphone HCl (Dilaudid Inj) 0.5 mg IV Q3H PRN PRN PRN Reason: pain 6-04/01 Last Admin: 09/04/19 09:25 Dose: 0.5 mg Documented by: Sodium Chloride () 250 mls @ 15 mls/hr IV .[id number] PRN PRN Reason: Saline Flush Last Infusion: 09/04/19 06:53 Dose: 0 mls/hr Documented by: Sodium Chloride () 250 mls @ 15 mls/hr IV .[id number] PRN PRN Reason: Additional IVPB Infusion Pantoprazole Sodium 40 mg/ (Sodium Chloride) 110 mls @ 330 mls/hr IV Q12 [facility] Last Infusion: 09/03/19 23:19 Dose: Infused Documented by: Sodium Chloride () 500 mls @ 15 mls/hr IV PRN PRN PRN Reason: Blood Transfusion Last Infusion: 09/03/19 23:17 Dose: Infused Documented by: Piperacillin Sod/Tazobactam (Sod 3.375 gm/ Sodium Chloride) 50 mls @ 12.5 mls/hr IV Q8 [facility] Last Admin: 09/04/19 06:53 Dose: 12.5 mls/hr Documented by: Sodium Chloride () 500 mls @ 15 mls/hr IV .[id number] [facility] Last Admin: 09/03/19 18:31 Dose: Not Given Documented by: Insulin Human Lispro (Humalog Kwikpen (Bkc)) 0 unit SC [facility]; Protocol Last Admin: 09/04/19 06:57 Dose: Not Given Documented by: Ipratropium [place] (Atrovent) 0.5 mg INHALATION Q4H.RT [facility] Last Admin: 09/04/19 07:36 Dose: 0.5 mg Documented by: Melatonin (Melatonin) 3 mg PO QHS PRN PRN PRN Reason: INSOMNIA Non-Formulary Medication (Bupropion Hcl [Bupropion Hcl Sr]) 150 mg PO BID [facility] Non-Formulary Medication (Doxepin Hcl) 100 mg PO QHS [facility] Nutritional Formula ([place] - [place] Flavor) [facility] Last Admin: 09/04/19 09:11 Dose: 1 packet Documented by: Ondansetron HCl (Zofran) 4 mg IV Q8H PRN PRN PRN Reason: NAUSEA/VOMITING Last Admin: 09/01/19 04:43 Dose: 4 mg Documented by: Potassium Chloride (K-Dur) [facility] Last Admin: 09/04/19 09:12 Dose: 20 meq Documented by: Prochlorperazine Edisylate (Compazine Iv) 10 mg IV Q4H PRN PRN PRN Reason: NAUSEA/VOMITING Last Admin: 09/01/19 08:41 Dose: 10 mg Documented by: Sodium Chloride () 10 - 40 ml IV UD PRN PRN Reason: SALINE FLUSH Last Admin: 09/04/19 09:25 Dose: 10 ml Documented by: Medical Necessity - Tobacco Use Smoking Status: Current every day smoker Tobacco Use: Cigarettes Assessment/Plan All Active Problems Atrial fibrillation (Acute) Sigmoid diverticulitis (Acute) Failure of outpatient treatment (Acute) Altered mental status (Acute) Colitis (Acute) Constipation (Acute) Large bowel obstruction (Acute) Advance her diet.
[2019-09-04] MEDS: Insulin Lispro 100 UNIT/ML INSULN.PEN SC (12:15)
[2019-09-04 12:16] LABS: Bedside Glucose 169 mg/dL (70-110)
--- NOTE | 2019-09-04 12:18 | PCM.PN.CARD ---
Subjectve: Patient is doing well from a cardiac standpoint. She denies any shortness of breath or palpitations. Telemetry revealed episodes of A. fib. Patient is currently in sinus rhythm. Her amiodarone has been switched to p.o. Objective: Vital Signs Temp Pulse Resp BP Pulse Ox 97.6 F L 91 17 164/78 H 97 09/04/19 08:51 09/04/19 11:25 09/04/19 11:25 09/04/19 08:51 09/04/19 08:51 Oxygen Flow Rate (L/min) 2 Oxygen Delivery Method Room Air Weight: 162 lb 0.636 oz Body Mass Index (BMI) 27.8 Finger Stick Blood Glucose 86 Intake and Output for Last 24 Hours 09/02/19 09/03/19 09/04/19 23:59 23:59 23:59 Intake Total 1836.99 / 1889.49 2009.54 / 2009.54 202.25 / 202.25 Output Total 2355 / 3005 1050 / 1050 150 / 150 Balance -518.01 / -1115.51 959.54 / 959.54 52.25 / 52.25 General: Awake, Alert, Oriented x 3 HEENT: Atraumatic Oral: Moist Mucosa Neck: Supple Lungs: Rales - Left Base Cardiovascular: Regular Rhythm Abdomen: Soft Extremities: No edema Skin: No Rashes Psych/Mental Status: Appropriate 09/04/19 09:09: Sodium 134 L, Potassium 4.3, Chloride 103, Carbon Dioxide 23.0, Anion Gap 8, BUN 12, Creatinine 0.80, Est GFR (MDRD) Af Amer 93, Est GFR (MDRD) Non-Af 77, BUN/Creatinine Ratio 15.1, Glucose 114 H, Calcium 8.1 L Rhythm: EKG: ECHO: Stress Test: Cardiac Cath: PCI: CT Surgery: Holter monitor: EPS: PPM: CXR: Chest CT Scan: Medical Necessity - Tobacco Use Smoking Status: Current every day smoker Tobacco Use: Cigarettes Assessment/Plan 1. Atrial fibrillation with rapid ventricular response: The patient developed new onset rapid ventricular response secondary to atrial fibrillation on 09/01/2019, and CT scan demonstrated no evidence of pulmonary embolism at this time. Patient underwent successful DC cardioversion yesterday with a single shock and is currently in normal sinus rhythm. She did have episodes of A. fib. We will continue amiodarone at this time. 2. Dyspnea: The patient on echocardiogram demonstrated relatively intact LV function with at least moderate pulmonary pretension with an RVSP of 55 mmHg. This puts her at increased risk for atrial fibrillation going forward. Patient responded well to Lasix. Continue p.o. Lasix at this time.
[2019-09-04 17:11] LABS: Bedside Glucose 92 mg/dL (70-110)
[2019-09-04] MEDS: Atorvastatin Calcium 80 MG Tablet PO (21:20)
[2019-09-04] MEDS: DOXEPIN HCL 50 MG CAPSULE 100 MG PO (21:20)
[2019-09-04] MEDS: buPROPion (SR) 150 MG Tablet.SA PO (21:25)
[2019-09-05] VITALS (14 sets, daily range): BP systolic 128–153; BP diastolic 60–92; PULSE 67–148; RESP 16–18; TEMP 36.4–36.8; O2SAT 96–100
[2019-09-05 00:31] LABS: Bedside Glucose 145 mg/dL (70-110)
[2019-09-05] MEDS: HYDROmorphone 0.5 MG/0.5 ML SYRINGE IV ×5 (03:51→21:47)
[2019-09-05] MEDS: 0.9% Saline Lock 10 ML Syringe IV (03:51)
[2019-09-05 07:01] LABS: Bedside Glucose 122 mg/dL (70-110)
--- NOTE | 2019-09-05 08:22 | PCM.PN.HOSP ---
Patient Problems: Active and Suspected Problems Atrial fibrillation (Acute) Altered mental status (Acute) Colitis (Acute) Constipation (Acute) Large bowel obstruction (Acute) Subjective: Doing well, pain is well controlled. She is tolerating a diet without any nausea. She is continued to have ostomy output Vitals/I&O's: Vital Signs Temp Pulse Resp BP Pulse Ox 98.3 F 75 17 147/78 H 96 09/05/19 03:30 09/05/19 07:27 09/05/19 03:30 09/05/19 03:30 09/05/19 08:03 Oxygen Flow Rate (L/min) 2 Oxygen Delivery Method Room Air Weight: 160 lb 0.889 oz Body Mass Index (BMI) 27.8 Finger Stick Blood Glucose 86 Intake and Output for Last 24 Hours 09/03/19 09/04/19 09/05/19 23:59 23:59 23:59 Intake Total 2009.54 / 2008.54 1642.25 / 1642.25 317.25 / 317.25 Output Total 1050 / 1050 700 / 700 150 / 150 Balance 959.54 / 959.54 942.25 / 942.25 167.25 / 167.25 General: Alert, Oriented x3, Cooperative, No apparent distress HEENT: Atraumatic, PERRLA, EOMI, Normocephalic Oral: Moist Mucosa Neck: Supple, No JVD Lungs: Clear to auscultation, Normal air movement, No rhonchi, No wheeze, No rales, Diminished Cardiovascular: Regular rate, Regular Rhythm, Normal S1, Normal S2, No murmurs Abdomen: Soft, Non-Distended, No Hepato-splenomegaly, - - VAC in place, ostomy with output Extremities: No edema, Capillary Refill Less than 3 Seconds, left upper extremity redness from infiltration of amiodarone appears to be improving Skin: No rashes, No breakdown Neurological: Neuro grossly intact, Sensory exam intact to light touch and pain Psych/Mental Status: Normal Affect, Appropriate Microbiology Past 72 Hours 08/30/19 12:00 Sputum, Expectorated/Coughed Gram Stain - Final 08/30/19 12:00 Sputum, Expectorated/Coughed Respiratory Culture - Final Laboratory Results 09/04/19 09:09: Sodium 134 L, Potassium 4.3, Chloride 103, Carbon Dioxide 23.0, Anion Gap 8, BUN 12, Creatinine 0.80, Estim Creat Clear Calc 65.63, Est GFR (MDRD) Af Amer 93, Est GFR (MDRD) Non-Af 77, BUN/Creatinine Ratio 15.1, Glucose 114 H, Calcium 8.1 L 09/04/19 11:35: POC Glucose 169 H 09/04/19 16:12: POC Glucose 92 09/04/19 22:45: POC Glucose 145 H 09/05/19 06:49: POC Glucose 122 H Current Medications Amiodarone HCl (Cordarone) 200 mg PO BID [facility] Stop: 09/08/19 10:01 Last Admin: 09/04/19 21:20 Dose: 200 mg Documented by: Amiodarone HCl (Cordarone) 200 mg PO DAILY [facility] Atorvastatin Calcium (Lipitor) 80 mg PO QHS [facility] Last Admin: 09/04/19 21:20 Dose: 80 mg Documented by: Bupropion HCl (Wellbutrin Sr (150mg Tablets)) 150 mg PO BID [facility] Last Admin: 09/04/19 21:25 Dose: 150 mg Documented by: Chlorhexidine Gluconate () 1 each TOPICAL DAILY [facility] Last Admin: 09/04/19 09:13 Dose: Not Given Documented by: Diltiazem HCl (Cardizem Cd) 180 mg PO DAILY [facility] Last Admin: 09/04/19 09:12 Dose: 180 mg Documented by: Doxepin HCl (Doxepin Hcl) 100 mg PO QHS [facility] Last Admin: 09/04/19 21:20 Dose: 100 mg Documented by: Duloxetine HCl (Cymbalta) 60 mg PO DAILY [facility] Duloxetine HCl (Cymbalta) 30 mg PO DAILY [facility] Enoxaparin Sodium (Lovenox) 70 mg SC Q12 [facility] Last Admin: 09/04/19 21:20 Dose: 70 mg Documented by: Furosemide (Lasix) 20 mg PO DAILY [facility] Last Admin: 09/04/19 09:13 Dose: 20 mg Documented by: Hydromorphone HCl (Dilaudid Inj) 0.5 mg IV Q3H PRN PRN PRN Reason: pain 6-1010 Last Admin: 09/05/19 03:51 Dose: 0.5 mg Documented by: Sodium Chloride () 250 mls @ 15 mls/hr IV .[id number] PRN PRN Reason: Saline Flush Last Infusion: 09/04/19 06:53 Dose: 0 mls/hr Documented by: Sodium Chloride () 250 mls @ 15 mls/hr IV .[id number] PRN PRN Reason: Additional IVPB Infusion Pantoprazole Sodium 40 mg/ (Sodium Chloride) 110 mls @ 330 mls/hr IV Q12 [facility] Last Infusion: 09/04/19 22:07 Dose: Infused Documented by: Sodium Chloride () 500 mls @ 15 mls/hr IV PRN PRN PRN Reason: Blood Transfusion Last Infusion: 09/03/19 23:17 Dose: Infused Documented by: Piperacillin Sod/Tazobactam (Sod 3.375 gm/ Sodium Chloride) 50 mls @ 12.5 mls/hr IV Q8 [facility] Last Admin: 09/05/19 05:42 Dose: 12.5 mls/hr Documented by: Sodium Chloride () 500 mls @ 15 mls/hr IV .[id number] [facility] Last Infusion: 09/05/19 05:41 Dose: 0 mls/hr Documented by: Insulin Human Lispro (Humalog Kwikpen (Bkc)) 0 unit SC ACHS [facility]; Protocol Last Admin: 09/05/19 06:50 Dose: Not Given Documented by: Ipratropium [place] (Atrovent) 0.5 mg INHALATION Q4H.RT [facility] Last Admin: 09/05/19 07:15 Dose: Not Given Documented by: Melatonin (Melatonin) 3 mg PO QHS PRN PRN PRN Reason: INSOMNIA Nutritional Formula ([place] - [place] Fl[facility] Last Admin: 09/04/19 18:07 Dose: 1 packet Documented by: Ondansetron HCl (Zofran) 4 mg IV Q8H PRN PRN PRN Reason: NAUSEA/VOMITING Last Admin: 09/01/19 04:43 Dose: 4 mg Documented by: Potassium Chloride (K-Dur) [facility] Last Admin: 09/04/19 09:12 Dose: 20 meq Documented by: Prochlorperazine Edisylate (Compazine Iv) 10 mg IV Q4H PRN PRN PRN Reason: NAUSEA/VOMITING Last Admin: 09/01/19 08:41 Dose: 10 mg Documented by: Sodium Chloride () 10 - 40 ml IV UD PRN PRN Reason: SALINE FLUSH Last Admin: 09/05/19 03:51 Dose: 10 ml Documented by: STROKE Vital Signs/Narrative: Vital Signs Pulse Pulse Ox 09/05/19 08:03 96 09/05/19 07:27 75 Medical Necessity - Tobacco Use Smoking Status: Current every day smoker Tobacco Use: Cigarettes Assessment/Plan All Active Problems Atrial fibrillation (Acute) Sigmoid diverticulitis (Acute) Failure of outpatient treatment (Acute) Altered mental status (Acute) Colitis (Acute) Constipation (Acute) Large bowel obstruction (Acute) 1. Sigmoid colitis and severe sepsis secondary to peritonitis fecal contamination status post colectomy with transverse ostomy/IBS with constipation -Continue with Zosyn -NG tube was removed and she is tolerating some clears -Had some ostomy output -Continue with wound VAC for incision -Appreciate surgical assistance -Was on amitiza as an outpatient for chronic constipation. She was initially given lactulose which caused her to have multiple bowel movements she continued to get worse necessitating surgical intervention 2. Rule out CVA/right facial droop/slurred speech/HTN/HLD/CAD status post stent/A. fib with RVR/chronic diastolic CHF -MRIs and MRAs of her head and neck were negative for stroke -When able to tolerate, can continue with her home blood pressure medications as well as her cholesterol medication -Status post cardioversion was started on amiodarone as well as Cardizem which will need to be continued -Also continue with Lasix p.o. 3. Acute on chronic normocytic anemia with acute blood loss from surgery -She is received 4 units of PRBCs during the course of her hospitalization partly secondary to her surgical procedures -Hemoglobin is 10.1 4. Anxiety/depression -As she is taking p.o. can resume her Wellbutrin and her Cymbalta -Also continue her doxepin DVT: Lovenox Inpatient E&M: [id number] Subs Hosp L2
[2019-09-05] MEDS: Furosemide 20 MG Tablet PO (09:55)
[2019-09-05] MEDS: DULoxetine Hcl 60 MG Capsule PO (09:55)
[2019-09-05] MEDS: DULoxetine Hcl 30 MG Capsule PO (09:55)
[2019-09-05] MEDS: dilTIAZem CD 180 MG Capsule PO (09:55)
[2019-09-05] MEDS: Amiodarone 200 MG Tablet PO ×2 (09:55→21:47)
[2019-09-05] MEDS: buPROPion (SR) 150 MG Tablet.SA PO ×2 (09:55→21:48)
--- NOTE | 2019-09-05 09:58 | PCM.PN.SRG ---
Patient Problems: Active and Suspected Problems Atrial fibrillation (Acute) Altered mental status (Acute) Colitis (Acute) Constipation (Acute) Large bowel obstruction (Acute) Subjective: Patient is not complaining of any abdominal pain. Stoma is functioning appropriately. Objective: Abdomen is soft wound VAC is working quite nicely. Stoma is functioning well. - Physical Exam Vitals/I&O's: Vital Signs Temp Pulse Resp BP Pulse Ox 97.6 F L 140 H 16 153/92 H 100 09/05/19 09:30 09/05/19 09:36 09/05/19 09:30 09/05/19 09:30 09/05/19 09:30 Oxygen Flow Rate (L/min) 2 Oxygen Delivery Method Room Air Weight: 160 lb 0.889 oz Body Mass Index (BMI) 27.8 Finger Stick Blood Glucose 86 Intake and Output for Last 24 Hours 09/03/19 09/04/19 09/05/19 23:59 23:59 23:59 Intake Total 2009.54 / 2008.54 1642.25 / 1642.25 317.25 / 317.25 Output Total 1050 / 1050 700 / 700 150 / 150 Balance 959.54 / 959.54 942.25 / 942.25 167.25 / 167.25 Microbiology Past 72 Hours 08/30/19 12:00 Sputum, Expectorated/Coughed Gram Stain - Final 08/30/19 12:00 Sputum, Expectorated/Coughed Respiratory Culture - Final Laboratory Results 09/04/19 11:35: POC Glucose 169 H 09/04/19 16:12: POC Glucose 92 09/04/19 22:45: POC Glucose 145 H 09/05/19 06:49: POC Glucose 122 H Current Medications Amiodarone HCl (Cordarone) 200 mg PO BID [facility] Stop: 09/08/19 10:01 Last Admin: 09/04/19 21:20 Dose: 200 mg Documented by: Amiodarone HCl (Cordarone) 200 mg PO DAILY [facility] Atorvastatin Calcium (Lipitor) 80 mg PO QHS [facility] Last Admin: 09/04/19 21:20 Dose: 80 mg Documented by: Bupropion HCl (Wellbutrin Sr (150mg Tablets)) 150 mg PO BID [facility] Last Admin: 09/04/19 21:25 Dose: 150 mg Documented by: Chlorhexidine Gluconate () 1 each TOPICAL DAILY [facility] Last Admin: 09/05/19 09:52 Dose: Not Given Documented by: Diltiazem HCl (Cardizem Cd) 180 mg PO DAILY [facility] Last Admin: 09/04/19 09:12 Dose: 180 mg Documented by: Doxepin HCl (Doxepin Hcl) 100 mg PO QHS [facility] Last Admin: 09/04/19 21:20 Dose: 100 mg Documented by: Duloxetine HCl (Cymbalta) 60 mg PO DAILY [facility] Duloxetine HCl (Cymbalta) 30 mg PO DAILY [facility] Enoxaparin Sodium (Lovenox) 70 mg SC Q12 [facility] Last Admin: 09/04/19 21:20 Dose: 70 mg Documented by: Furosemide (Lasix) 20 mg PO DAILY [facility] Last Admin: 09/04/19 09:13 Dose: 20 mg Documented by: Hydromorphone HCl (Dilaudid Inj) 0.5 mg IV Q3H PRN PRN PRN Reason: pain 6-04/01 Last Admin: 09/05/19 03:51 Dose: 0.5 mg Documented by: Sodium Chloride () 250 mls @ 15 mls/hr IV .[id number] PRN PRN Reason: Saline Flush Last Infusion: 09/04/19 06:53 Dose: 0 mls/hr Documented by: Sodium Chloride () 250 mls @ 15 mls/hr IV .[id number] PRN PRN Reason: Additional IVPB Infusion Pantoprazole Sodium 40 mg/ (Sodium Chloride) 110 mls @ 330 mls/hr IV Q12 [facility] Last Infusion: 09/04/19 22:07 Dose: Infused Documented by: Sodium Chloride () 500 mls @ 15 mls/hr IV PRN PRN PRN Reason: Blood Transfusion Last Infusion: 09/03/19 23:17 Dose: Infused Documented by: Piperacillin Sod/Tazobactam (Sod 3.375 gm/ Sodium Chloride) 50 mls @ 12.5 mls/hr IV Q8 [facility] Last Admin: 09/05/19 05:42 Dose: 12.5 mls/hr Documented by: Sodium Chloride () 500 mls @ 15 mls/hr IV .[id number] [facility] Last Infusion: 09/05/19 05:41 Dose: 0 mls/hr Documented by: Insulin Human Lispro (Humalog Kwikpen (Bkc)) 0 unit SC ACHS [facility]; Protocol Last Admin: 09/05/19 06:50 Dose: Not Given Documented by: Ipratropium [place] (Atrovent) 0.5 mg INHALATION Q4H.RT [facility] Last Admin: 09/05/19 07:15 Dose: Not Given Documented by: Melatonin (Melatonin) 3 mg PO QHS PRN PRN PRN Reason: INSOMNIA Nutritional Formula ([place] - [place] Flavor) [facility] Last Admin: 09/04/19 18:07 Dose: 1 packet Documented by: Ondansetron HCl (Zofran) 4 mg IV Q8H PRN PRN PRN Reason: NAUSEA/VOMITING Last Admin: 09/01/19 04:43 Dose: 4 mg Documented by: Potassium Chloride (K-Dur) 20 meq [facility] Last Admin: 09/04/19 09:12 Dose: 20 meq Documented by: Prochlorperazine Edisylate (Compazine Iv) 10 mg IV Q4H PRN PRN PRN Reason: NAUSEA/VOMITING Last Admin: 09/01/19 08:41 Dose: 10 mg Documented by: Sodium Chloride () 10 - 40 ml IV UD PRN PRN Reason: SALINE FLUSH Last Admin: 09/05/19 03:51 Dose: 10 ml Documented by: Medical Necessity - Tobacco Use Smoking Status: Current every day smoker Tobacco Use: Cigarettes Assessment/Plan All Active Problems Atrial fibrillation (Acute) Sigmoid diverticulitis (Acute) Failure of outpatient treatment (Acute) Altered mental status (Acute) Colitis (Acute) Constipation (Acute) Large bowel obstruction (Acute) We will need to get social service involvement so that we can have a plan for placement. Daughter would like the patient to go to [place] however think the logistics of that would make it almost impossible.
--- NOTE | 2019-09-05 12:48 | PCM.PN.CARD ---
Subjectve: Patient is doing well from a cardiac standpoint symptom moore. She did go into A. fib with RVR but did not have any symptoms with it. She then spontaneously converted to sinus rhythm and is currently in normal sinus rhythm. Objective: Vital Signs Temp Pulse Resp BP Pulse Ox 97.6 F L 91 17 138/63 H 99 09/05/19 11:30 09/05/19 11:30 09/05/19 11:30 09/05/19 11:30 09/05/19 11:30 Oxygen Flow Rate (L/min) 2 Oxygen Delivery Method Room Air Weight: 160 lb 0.889 oz Body Mass Index (BMI) 27.8 Finger Stick Blood Glucose 86 Intake and Output for Last 24 Hours 09/03/19 09/04/19 09/05/19 23:59 23:59 23:59 Intake Total 2008.54 / 2008.54 1642.25 / 1642.25 317.25 / 317.25 Output Total 1050 / 1050 700 / 700 150 / 150 Balance 959.54 / 959.54 942.25 / 942.25 167.25 / 167.25 General: Awake, Alert, Oriented x 3 HEENT: Atraumatic Oral: Moist Mucosa Neck: Supple Cardiovascular: Regular Rhythm Skin: No Rashes Psych/Mental Status: Appropriate Rhythm: EKG: ECHO: Stress Test: Cardiac Cath: PCI: CT Surgery: Holter monitor: EPS: PPM: CXR: Chest CT Scan: Medical Necessity - Tobacco Use Smoking Status: Current every day smoker Tobacco Use: Cigarettes Assessment/Plan 1. Atrial fibrillation with rapid ventricular response: The patient developed new onset rapid ventricular response secondary to atrial fibrillation on 09/01/2019, and CT scan demonstrated no evidence of pulmonary embolism at this time. Patient underwent successful DC cardioversion with a single shock and is currently in normal sinus rhythm. She did have episodes of A. fib. We will continue her current medications at this time without any changes. Continue telemetry monitoring. 2. Dyspnea: The patient on echocardiogram demonstrated relatively intact LV function with at least moderate pulmonary pretension with an RVSP of 55 mmHg. This puts her at increased risk for atrial fibrillation going forward. Patient responded well to Lasix. Continue p.o. Lasix at this time.
[2019-09-05 18:11] LABS: Bedside Glucose 136 mg/dL (70-110)
[2019-09-05] MEDS: Ipratropium 0.5 MG/2.5 ML SOLUTION INHALATION (19:07)
[2019-09-05] MEDS: Atorvastatin Calcium 80 MG Tablet PO (21:47)
[2019-09-05] MEDS: DOXEPIN HCL 50 MG CAPSULE 100 MG PO (21:48)
[2019-09-05] MEDS: Enoxaparin 80 MG/0.8 ML Syringe 70 MG SC (21:48)
[2019-09-05] MEDS: MELATONIN 3 MG TABLET PO (22:10)
[2019-09-05 23:20] LABS: Bedside Glucose 115 mg/dL (70-110)
[2019-09-06] VITALS (12 sets, daily range): BP systolic 125–142; BP diastolic 54–64; PULSE 61–82; RESP 13–18; TEMP 36.4–36.6; O2SAT 93–97
[2019-09-06] MEDS: HYDROmorphone 0.5 MG/0.5 ML SYRINGE IV ×5 (04:58→21:24)
[2019-09-06] MEDS: 0.9% Saline Lock 10 ML Syringe IV ×5 (04:59→21:24)
--- NOTE | 2019-09-06 06:39 | PCM.PN.SRG ---
Patient Problems: Active and Suspected Problems Atrial fibrillation (Acute) Altered mental status (Acute) Colitis (Acute) Constipation (Acute) Large bowel obstruction (Acute) Subjective: 64-year-old female who currently feels like she is making good progress. She denies current nausea. She is tolerating a light diet. Denies abdominal pain. Left lower quadrant and transverse colostomy functioning well. Wound is responding to the wound VAC - Physical Exam Vitals/I&O's: Vital Signs Temp Pulse Resp BP Pulse Ox 97.8 F 70 16 133/63 H 97 09/06/19 05:14 09/06/19 05:14 09/06/19 05:14 09/06/19 05:14 09/06/19 05:14 Oxygen Flow Rate (L/min) 2 Oxygen Delivery Method Room Air Weight: 159 lb 13.362 oz Body Mass Index (BMI) 27.8 Finger Stick Blood Glucose 86 Intake and Output for Last 24 Hours 09/04/19 09/05/19 09/06/19 23:59 23:59 23:59 Intake Total 1642.25 / 1642.25 1557.25 / 1557.25 450 / 450 Output Total 700 / 700 650 / 650 Balance 942.25 / 942.25 907.25 / 907.25 450 / 450 Abdomen: Soft, Non Tender Laboratory Results 09/05/19 06:49: POC Glucose 122 H 09/05/19 18:02: POC Glucose 136 H 09/05/19 21:46: POC Glucose 115 H Current Medications Amiodarone HCl (Cordarone) 200 mg PO BID [facility] Stop: 09/08/19 10:01 Last Admin: 09/05/19 21:47 Dose: 200 mg Documented by: Amiodarone HCl (Cordarone) 200 mg PO DAILY [facility] Atorvastatin Calcium (Lipitor) 80 mg PO QHS [facility] Last Admin: 09/05/19 21:47 Dose: 80 mg Documented by: Bupropion HCl (Wellbutrin Sr (150mg Tablets)) 150 mg PO BID [facility] Last Admin: 09/05/19 21:48 Dose: 150 mg Documented by: Chlorhexidine Gluconate () 1 each TOPICAL DAILY [facility] Last Admin: 09/05/19 09:52 Dose: Not Given Documented by: Diltiazem HCl (Cardizem Cd) 180 mg PO DAILY [facility] Last Admin: 09/05/19 09:55 Dose: 180 mg Documented by: Doxepin HCl (Doxepin Hcl) 100 mg PO QHS [facility] Last Admin: 09/05/19 21:48 Dose: 100 mg Documented by: Duloxetine HCl (Cymbalta) 60 mg PO DAILY [facility] Last Admin: 09/05/19 09:55 Dose: 60 mg Documented by: Duloxetine HCl (Cymbalta) 30 mg PO DAILY [facility] Last Admin: 09/05/19 09:55 Dose: 30 mg Documented by: Enoxaparin Sodium (Lovenox) 70 mg SC Q12 [facility] Last Admin: 09/05/19 21:48 Dose: 70 mg Documented by: Furosemide (Lasix) 20 mg PO DAILY [facility] Last Admin: 09/05/19 09:55 Dose: 20 mg Documented by: Hydromorphone HCl (Dilaudid Inj) 0.5 mg IV Q3H PRN PRN PRN Reason: pain 6-04/01 Last Admin: 09/06/19 04:58 Dose: 0.5 mg Documented by: Sodium Chloride () 250 mls @ 15 mls/hr IV .[id number] PRN PRN Reason: Saline Flush Last Infusion: 09/04/19 06:53 Dose: 0 mls/hr Documented by: Sodium Chloride () 250 mls @ 15 mls/hr IV .[id number] PRN PRN Reason: Additional IVPB Infusion Pantoprazole Sodium 40 mg/ (Sodium Chloride) 110 mls @ 330 mls/hr IV Q12 [facility] Last Infusion: 09/05/19 22:19 Dose: Infused Documented by: Sodium Chloride () 500 mls @ 15 mls/hr IV PRN PRN PRN Reason: Blood Transfusion Last Infusion: 09/03/19 23:17 Dose: Infused Documented by: Piperacillin Sod/Tazobactam (Sod 3.375 gm/ Sodium Chloride) 50 mls @ 12.5 mls/hr IV Q8 [facility] Last Admin: 09/06/19 04:59 Dose: 12.5 mls/hr Documented by: Sodium Chloride () 500 mls @ 15 mls/hr IV .[id number] [facility] Last Infusion: 09/06/19 02:00 Dose: 15 mls/hr Documented by: Insulin Human Lispro (Humalog Kwikpen (Bkc)) 0 unit SC ACHS [facility]; Protocol Last Admin: 09/05/19 21:48 Dose: Not Given Documented by: Ipratropium [place] (Atrovent) 0.5 mg INHALATION Q4H.RT [facility] Last Admin: 09/06/19 03:13 Dose: Not Given Documented by: Melatonin (Melatonin) 3 mg PO QHS PRN PRN PRN Reason: INSOMNIA Last Admin: 09/05/19 22:10 Dose: 3 mg Documented by: Nutritional Formula ([place] Flavor) [facility] Last Admin: 09/05/19 18:05 Dose: 1 packet Documented by: Ondansetron HCl (Zofran) 4 mg IV Q8H PRN PRN PRN Reason: NAUSEA/VOMITING Last Admin: 09/01/19 04:43 Dose: 4 mg Documented by: Potassium Chloride (K-Dur) 20 meq [facility] Last Admin: 09/05/19 09:55 Dose: 20 meq Documented by: Prochlorperazine Edisylate (Compazine Iv) 10 mg IV Q4H PRN PRN PRN Reason: NAUSEA/VOMITING Last Admin: 09/01/19 08:41 Dose: 10 mg Documented by: Sodium Chloride () 10 - 40 ml IV UD PRN PRN Reason: SALINE FLUSH Last Admin: 09/06/19 04:59 Dose: 10 ml Documented by: Medical Necessity - Tobacco Use Smoking Status: Current every day smoker Tobacco Use: Cigarettes Assessment/Plan All Active Problems Atrial fibrillation (Acute) Sigmoid diverticulitis (Acute) Failure of outpatient treatment (Acute) Altered mental status (Acute) Colitis (Acute) Constipation (Acute) Large bowel obstruction (Acute) Events of the past week noted The patient suffered from severe chronic constipation. Both as an outpatient and as an inpatient she had escalating oral laxative therapy prescribed. This led to a complete colonic obstruction with subsequent acute colitis and bowel infarct. An attempt was made to decompress with a loop transverse colostomy but secondary to abdominal distention and extensive intra-abdominal adhesions this failed and she required a Hardeep procedure with left colectomy and a left lower quadrant end transverse colostomy. Blood loss for surgery documented at 300 cc. The final pathology was notable for the colitis with focal infarct. Antibiotics have been continued. These are not required from an abdominal surgical standpoint. It appears that the patient became fluid overloaded had subsequent pretension cardiac failure going into atrial fibrillation requiring cardioversion. The cardiac and pulmonary issues then complicated return of bowel function slowing her postsurgical progress. Fortunately the patient has been successfully diuresed and potassium is been replaced. Upon doing so she now has had return of bowel function. At discharge she will not require oral narcotic pain medicines back and simply use [id number] acetaminophen. We will consider possible delayed primary closure of her abdominal wounds versus ongoing wound VAC therapy. I then anticipate office surgical follow-up at approximately 3 weeks. The patient likely will have the end transverse colostomy for 6 to 12 months. She likely will require tertiary referral for consideration of takedown secondary to the anticipated difficult surgical exposure. Every effort was made to leave a small rectosigmoid stump and to identify it secured with a blue Prolene suture Jerrell Hutchins M.D., F.A.C.S.
[2019-09-06 06:55] LABS: Bedside Glucose 113 mg/dL (70-110)
[2019-09-06 07:07] LABS: Absolute Lymphocyte Count 1.49 X10^3/uL (0.83-4.51); Absolute Neutrophil Count 6.4 X10^3/uL (2.0-7.7); Basophil# 0.05 X10^3/uL; Basophil% 0.5 % (0-1); Eosinophil# 0.23 X10^3/uL; Eosinophils% 2.4 % (0-5); Hematocrit 28.9 % (37-47); Hemoglobin 9.1 g/dL (12.0-15.0); Lymphocyte # 1.49 X10^3/ul (4.0); Lymphocyte % 15.3 % (19-41); Mean Corp Hgb Conc 31.5 g/dL (32-36); Mean Corpuscular Hgb 27.8 pg (27.0-32.0); Mean Corpuscular Volume 88.4 fL (81-99); Mean Platelet Vol. 10.2 fl (6.2-12.0); Monocyte# 1.28 X10^3/uL; Monocyte% 13.2 % (0-10); NRBC Flagged by Analyzer 0 % (0-5); Neutrophil # 6.39 X10^3/uL (2.7-7.7); Neutrophil % 65.6 % (47-70); Platelet Count 618 K/mm3 (150-450); RBC Distribution Width CV 17.6 % (11.6-14.6); Red Blood Count 3.27 M/mm3 (4.2-5.4); White Blood Count 9.7 K/mm3 (4.4-11.0)
[2019-09-06] MEDS: Ipratropium 0.5 MG/2.5 ML SOLUTION INHALATION ×3 (07:08→20:26)
[2019-09-06 07:31] LABS: Anion Gap 8 (5-15); BUN 19 mg/dL (7-18); BUN/Creat Ratio 22.8 RATIO (10-20); Calcium,Total 8.1 mg/dL (8.5-10.1); Chloride 104 mmol/L (98-107); Creatinine, Serum 0.83 mg/dL (0.55-1.02); EST Glomerular Filtration Rate 73 mL/min (>60); Est Glom Filt Rate - Afr Amer 88 mL/min (>60); Estimated Creatinine Clearance 63.26 ml/min; Glucose 120 mg/dL (74-106); Potassium 3.1 mmol/L (3.5-5.1); Sodium Level 139 mmol/L (136-145)
[2019-09-06 08:46] LABS: Magnesium 1.4 mg/dL (1.6-2.6); Phosphorus 3.8 mg/dL (2.5-4.9)
--- NOTE | 2019-09-06 09:01 | NURSING ---
wound photo: abdomen
--- NOTE | 2019-09-06 09:23 | PN_ITS ---
Patient Problems: Active and Suspected Problems Atrial fibrillation (Acute) Altered mental status (Acute) Colitis (Acute) Constipation (Acute) Large bowel obstruction (Acute) Subjective: Doing well, pain is controlled. She is tolerating a full liquid diet will try to advance. She is having ostomy output. Vitals/I&O's: Vital Signs Temp Pulse Resp BP Pulse Ox 97.8 F 66 16 133/63 H 93 09/06/19 05:14 09/06/19 07:08 09/06/19 07:08 09/06/19 05:14 09/06/19 07:08 Oxygen Flow Rate (L/min) 2 Oxygen Delivery Method Room Air Weight: 159 lb 13.362 oz Body Mass Index (BMI) 27.8 Finger Stick Blood Glucose 86 Intake and Output for Last 24 Hours 09/04/19 09/05/19 09/06/19 23:59 23:59 23:59 Intake Total 1642.25 / 1642.25 1557.25 / 1557.25 450 / 450 Output Total 700 / 700 650 / 650 Balance 942.25 / 942.25 907.25 / 907.25 450 / 450 General: Alert, Oriented x3, Cooperative, No apparent distress HEENT: Atraumatic, PERRLA, EOMI, Normocephalic Oral: Moist Mucosa Neck: Supple, No JVD Lungs: Clear to auscultation, Normal air movement, No rhonchi, No wheeze, No rales, Diminished Cardiovascular: Regular rate, Regular Rhythm, Normal S1, Normal S2, No murmurs Abdomen: Soft, Non-Distended, No Hepato-splenomegaly, - - VAC in place, ostomy with output Extremities: No edema, Capillary Refill Less than 3 Seconds, left upper extremity redness from infiltration of amiodarone appears to be improving Skin: No rashes, No breakdown Neurological: Neuro grossly intact, Sensory exam intact to light touch and pain Psych/Mental Status: Normal Affect, Appropriate Laboratory Results 09/05/19 18:02: POC Glucose 136 H 09/05/19 21:46: POC Glucose 115 H 09/06/19 06:28: WBC 9.7, RBC 3.27 L, Hgb 9.1 L, Hct 28.9 L, MCV 88.4, MCH 27.8, MCHC 31.5 L, RDW Std Deviation 56.0 H, RDW Coeff of Wilmar 17.6 H, Plt Count 618 H, MPV 10.2, Immature Gran % (Auto) 3.000 H, Neut % (Auto) 65.6, Lymph % (Auto) 15.3 L, [place] % (Auto) 13.2 H, Eos % (Auto) 2.4, Baso % (Auto) 0.5, Absolute Neuts (auto) 6.4, Absolute Lymphs (auto) 1.49, Nucleated RBC % 0 09/06/19 06:28: Sodium 139, Potassium 3.1 L, Chloride 104, Carbon Dioxide 27.0, Anion Gap 8, BUN 19 H, Creatinine 0.83, Estim Creat Clear Calc 63.26, Est GFR (MDRD) Af Amer 88, Est GFR (MDRD) Non-Af 73, BUN/Creatinine Ratio 22.8 H, Glucose 120 H, Calcium 8.1 L 09/06/19 06:28: Phosphorus 3.8, Magnesium 1.4 L 09/06/19 06:50: POC Glucose 113 H Current Medications Amiodarone HCl (Cordarone) 200 mg PO BID [facility] Stop: 09/08/19 10:01 Last Admin: 09/05/19 21:47 Dose: 200 mg Documented by: Amiodarone HCl (Cordarone) 200 mg PO DAILY [facility] Atorvastatin Calcium (Lipitor) 80 mg PO QHS [facility] Last Admin: 09/05/19 21:47 Dose: 80 mg Documented by: Bupropion HCl (Wellbutrin Sr (150mg Tablets)) 150 mg PO BID [facility] Last Admin: 09/05/19 21:48 Dose: 150 mg Documented by: Chlorhexidine Gluconate () 1 each TOPICAL DAILY [facility] Last Admin: 09/05/19 09:52 Dose: Not Given Documented by: Diltiazem HCl (Cardizem Cd) 180 mg PO DAILY [facility] Last Admin: 09/05/19 09:55 Dose: 180 mg Documented by: Doxepin HCl (Doxepin Hcl) 100 mg PO QHS [facility] Last Admin: 09/05/19 21:48 Dose: 100 mg Documented by: Duloxetine HCl (Cymbalta) 60 mg PO DAILY [facility] Last Admin: 09/05/19 09:55 Dose: 60 mg Documented by: Duloxetine HCl (Cymbalta) 30 mg PO DAILY [facility] Last Admin: 09/05/19 09:55 Dose: 30 mg Documented by: Enoxaparin Sodium (Lovenox) 70 mg SC Q12 [facility] Last Admin: 09/05/19 21:48 Dose: 70 mg Documented by: Furosemide (Lasix) 20 mg PO DAILY [facility] Last Admin: 09/05/19 09:55 Dose: 20 mg Documented by: Hydromorphone HCl (Dilaudid Inj) 0.5 mg IV Q3H PRN PRN PRN Reason: pain 6-04/01 Last Admin: 09/06/19 08:35 Dose: 0.5 mg Documented by: Sodium Chloride () 250 mls @ 15 mls/hr IV .[id number] PRN PRN Reason: Saline Flush Last Infusion: 09/04/19 06:53 Dose: 0 mls/hr Documented by: Sodium Chloride () 250 mls @ 15 mls/hr IV .[id number] PRN PRN Reason: Additional IVPB Infusion Pantoprazole Sodium 40 mg/ (Sodium Chloride) 110 mls @ 330 mls/hr IV Q12 [facility] Last Infusion: 09/05/19 22:19 Dose: Infused Documented by: Sodium Chloride () 500 mls @ 15 mls/hr IV PRN PRN PRN Reason: Blood Transfusion Last Infusion: 09/03/19 23:17 Dose: Infused Documented by: Piperacillin Sod/Tazobactam (Sod 3.375 gm/ Sodium Chloride) 50 mls @ 12.5 mls/hr IV Q8 [facility] Last Admin: 09/06/19 04:59 Dose: 12.5 mls/hr Documented by: Sodium Chloride () 500 mls @ 15 mls/hr IV .[id number] [facility] Last Infusion: 09/06/19 02:00 Dose: 15 mls/hr Documented by: Insulin Human Lispro (Humalog Kwikpen (Bkc)) 0 unit SC ACHS [facility]; Protocol Last Admin: 09/06/19 06:51 Dose: Not Given Documented by: Ipratropium [place] (Atrovent) 0.5 mg INHALATION Q4H.RT [facility] Last Admin: 09/06/19 07:08 Dose: 0.5 mg Documented by: Melatonin (Melatonin) 3 mg PO QHS PRN PRN PRN Reason: INSOMNIA Last Admin: 09/05/19 22:10 Dose: 3 mg Documented by: Nutritional Formula ([place] - [place] Flavor) [facility] Last Admin: 09/06/19 08:35 Dose: 1 packet Documented by: Ondansetron HCl (Zofran) 4 mg IV Q8H PRN PRN PRN Reason: NAUSEA/VOMITING Last Admin: 09/01/19 04:43 Dose: 4 mg Documented by: Potassium Chloride (K-Dur) [facility] Last Admin: 09/06/19 08:35 Dose: 40 meq Documented by: Prochlorperazine Edisylate (Compazine Iv) 10 mg IV Q4H PRN PRN PRN Reason: NAUSEA/VOMITING Last Admin: 09/01/19 08:41 Dose: 10 mg Documented by: Sodium Chloride () 10 - 40 ml IV UD PRN PRN Reason: SALINE FLUSH Last Admin: 09/06/19 08:36 Dose: 20 ml Documented by: STROKE Vital Signs/Narrative: Vital Signs Pulse Resp Pulse Ox 09/06/19 07:08 66 16 93 09/06/19 07:00 63 Medical Necessity - Tobacco Use Smoking Status: Current every day smoker Tobacco Use: Cigarettes Assessment/Plan All Active Problems Atrial fibrillation (Acute) Sigmoid diverticulitis (Acute) Failure of outpatient treatment (Acute) Altered mental status (Acute) Colitis (Acute) Constipation (Acute) Large bowel obstruction (Acute) 1. Sigmoid colitis and severe sepsis secondary to peritonitis fecal contamination status post colectomy with transverse ostomy/IBS with constipation -We will discontinue Zosyn, this will likely help with her hypokalemia -Daniel a regular diet and if she tolerates we will plan for discharge tomorrow -Has ostomy output -Continue with wound VAC for incision -Appreciate surgical assistance -Was on amitiza as an outpatient for chronic constipation. She was initially given lactulose which caused her to have multiple bowel movements she continued to get worse necessitating surgical intervention 2. Rule out CVA/right facial droop/slurred speech/HTN/HLD/CAD status post stent/A. fib with RVR/chronic diastolic CHF -MRIs and MRAs of her head and neck were negative for stroke -When able to tolerate, can continue with her home blood pressure medications as well as her cholesterol medication -Status post cardioversion was started on amiodarone as well as Cardizem which will need to be continued -Also continue with Lasix p.o. 3. Acute on chronic normocytic anemia with acute blood loss from surgery -She is received 4 units of PRBCs during the course of her hospitalization partly secondary to her surgical procedures -Hemoglobin is 10.1 4. Anxiety/depression -As she is taking p.o. can resume her Wellbutrin and her Cymbalta -Also continue her doxepin DVT: Lovenox Inpatient E&M: [id number] Subs Hosp L2
[2019-09-06] MEDS: DULoxetine Hcl 60 MG Capsule PO (10:23)
[2019-09-06] MEDS: buPROPion (SR) 150 MG Tablet.SA PO ×2 (10:23→21:24)
[2019-09-06] MEDS: Furosemide 20 MG Tablet PO (10:23)
[2019-09-06] MEDS: dilTIAZem CD 180 MG Capsule PO (10:24)
[2019-09-06] MEDS: Amiodarone 200 MG Tablet PO ×2 (10:24→21:26)
[2019-09-06] MEDS: Enoxaparin 80 MG/0.8 ML Syringe 70 MG SC ×2 (10:24→21:24)
[2019-09-06] MEDS: DULoxetine Hcl 30 MG Capsule PO (10:24)
[2019-09-06] MEDS: Magnesium Sulfate 4gm/100mL 4 GM/100 ML IV.SOLN. IV (10:57)
[2019-09-06 12:46] LABS: Bedside Glucose 125 mg/dL (70-110)
[2019-09-06 13:10] LABS: Bedside Glucose 143 mg/dL (70-110)
--- NOTE | 2019-09-06 14:27 | CASEMGMT ---
Per RN CM patient and her daughter are now asking about possible alf. They are interested in [facility] TCU. SW called Jessica in TCU and made a referral. She has beds available and will review patient's chart. Estee CASPER
--- NOTE | 2019-09-06 14:29 | CASEMGMT ---
Pt/daughter request to speak with this RN CM at this time. This RN CM to room and pt/daughter inquire about HHC at this time. This RN CM explained and questions answered. Pt's daughter expresses concerns about pt being home alone for the majority of the day and being able to care for herself and her dogs. Pt's daughter lives in [place] and states has to return tomorrow. Pt's son does live close but travels to [place] and [place] for work regularly. Pt/daughter are interested in TCU at this time as pt declines to go to any other SNF at this time. [facility] SW aware and there is a bed available in TCU at this time and TCU is reviewing pt at this time. Pt/daughter to be updated as needed. SSttrudy COE CM
--- NOTE | 2019-09-06 15:02 | CASEMGMT ---
CARLOTTA spoke with Jessica and TCU can accept patient. CARLOTTA let patient's daughter know this information. Estee ANDINO MSW
[2019-09-06 17:26] LABS: Bedside Glucose 129 mg/dL (70-110)
[2019-09-06] MEDS: Atorvastatin Calcium 80 MG Tablet PO (21:24)
[2019-09-06] MEDS: DOXEPIN HCL 50 MG CAPSULE 100 MG PO (21:26)
[2019-09-06 23:10] LABS: Bedside Glucose 126 mg/dL (70-110)
[2019-09-07] MEDS: HYDROmorphone 0.5 MG/0.5 ML SYRINGE IV ×2 (00:49→06:39)
[2019-09-07] MEDS: 0.9% Saline Lock 10 ML Syringe IV ×3 (00:49→10:52)
[2019-09-07 01:59] VITALS: PULSE 71
[2019-09-07 04:55] VITALS: BP 126/67; PULSE 71; RESP 16; TEMP 36.6; O2SAT 95
--- NOTE | 2019-09-07 05:54 | PCM.PN.SRG ---
Patient Problems: Active and Suspected Problems Atrial fibrillation (Acute) Altered mental status (Acute) Colitis (Acute) Constipation (Acute) Large bowel obstruction (Acute) Subjective: Pt tolerated diet - Physical Exam Vitals/I&O's: Vital Signs Temp Pulse Resp BP Pulse Ox 97.8 F 71 16 126/67 H 95 09/07/19 04:55 09/07/19 04:55 09/07/19 04:55 09/07/19 04:55 09/07/19 04:55 Oxygen Flow Rate (L/min) 2 Oxygen Delivery Method Room Air Weight: 159 lb 13.362 oz Body Mass Index (BMI) 27.8 Finger Stick Blood Glucose 86 Intake and Output for Last 24 Hours 09/05/19 09/06/19 09/07/19 23:59 23:59 23:59 Intake Total 1557.25 / 1557.25 1968.75 / 2268.75 300 / 300 Output Total 650 / 650 300 / 450 150 / 150 Balance 907.25 / 907.25 1668.75 / 1818.75 150 / 150 Abdomen: Soft, Distended - stoma functioning Laboratory Results 09/05/19 12:10: POC Glucose 143 H 09/06/19 06:28: WBC 9.7, RBC 3.27 L, Hgb 9.1 L, Hct 28.9 L, MCV 88.4, MCH 27.8, MCHC 31.5 L, RDW Std Deviation 56.0 H, RDW Coeff of [place] 17.6 H, Plt Count 618 H, MPV 10.2, Immature Gran % (Auto) 3.000 H, Neut % (Auto) 65.6, Lymph % (Auto) 15.3 L, [place] % (Auto) 13.2 H, Eos % (Auto) 2.4, Baso % (Auto) 0.5, Absolute Neuts (auto) 6.4, Absolute Lymphs (auto) 1.49, Nucleated RBC % 0 09/06/19 06:28: Sodium 139, Potassium 3.1 L, Chloride 104, Carbon Dioxide 27.0, Anion Gap 8, BUN 19 H, Creatinine 0.83, Estim Creat Clear Calc 63.26, Est GFR (MDRD) Af Amer 88, Est GFR (MDRD) Non-Af 73, BUN/Creatinine Ratio 22.8 H, Glucose 120 H, Calcium 8.1 L 09/06/19 06:28: Phosphorus 3.8, Magnesium 1.4 L 09/06/19 06:50: POC Glucose 113 H 09/06/19 12:35: POC Glucose 125 H 09/06/19 17:05: POC Glucose 129 H 09/06/19 21:16: POC Glucose 126 H Current Medications Amiodarone HCl (Cordarone) 200 mg PO BID [facility] Stop: 09/08/19 10:01 Last Admin: 09/06/19 21:26 Dose: 200 mg Documented by: Amiodarone HCl (Cordarone) 200 mg PO DAILY [facility] Atorvastatin Calcium (Lipitor) 80 mg PO QHS [facility] Last Admin: 09/06/19 21:24 Dose: 80 mg Documented by: Bupropion HCl (Wellbutrin Sr (150mg Tablets)) 150 mg PO BID [facility] Last Admin: 09/06/19 21:24 Dose: 150 mg Documented by: Chlorhexidine Gluconate () 1 each TOPICAL DAILY [facility] Last Admin: 09/06/19 10:21 Dose: Not Given Documented by: Diltiazem HCl (Cardizem Cd) 180 mg PO DAILY [facility] Last Admin: 09/06/19 10:24 Dose: 180 mg Documented by: Doxepin HCl (Doxepin Hcl) 100 mg PO QHS [facility] Last Admin: 09/06/19 21:26 Dose: 100 mg Documented by: Duloxetine HCl (Cymbalta) 60 mg PO DAILY [facility] Last Admin: 09/06/19 10:23 Dose: 60 mg Documented by: Duloxetine HCl (Cymbalta) 30 mg PO DAILY [facility] Last Admin: 09/06/19 10:24 Dose: 30 mg Documented by: Enoxaparin Sodium (Lovenox) 70 mg SC Q12 [facility] Last Admin: 09/06/19 21:24 Dose: 70 mg Documented by: Furosemide (Lasix) 20 mg PO DAILY [facility] Last Admin: 09/06/19 10:23 Dose: 20 mg Documented by: Hydromorphone HCl (Dilaudid Inj) 0.5 mg IV Q3H PRN PRN PRN Reason: pain 6-04/01 Last Admin: 09/07/19 00:49 Dose: 0.5 mg Documented by: Sodium Chloride () 250 mls @ 15 mls/hr IV .[id number] PRN PRN Reason: Saline Flush Last Infusion: 09/04/19 06:53 Dose: 0 mls/hr Documented by: Sodium Chloride () 250 mls @ 15 mls/hr IV .[id number] PRN PRN Reason: Additional IVPB Infusion Pantoprazole Sodium 40 mg/ (Sodium Chloride) 110 mls @ 330 mls/hr IV Q12 [facility] Last Infusion: 09/06/19 21:50 Dose: Infused Documented by: Sodium Chloride () 500 mls @ 15 mls/hr IV PRN PRN PRN Reason: Blood Transfusion Last Infusion: 09/03/19 23:17 Dose: Infused Documented by: Sodium Chloride () 500 mls @ 15 mls/hr IV .[id number] [facility] Last Infusion: 09/06/19 22:35 Dose: 0 mls/hr Documented by: Insulin Human Lispro (Humalog Kwikpen (Bkc)) 0 unit SC [facility]; Protocol Last Admin: 09/06/19 21:16 Dose: Not Given Documented by: Ipratropium [place] (Atrovent) 0.5 mg INHALATION Q4H.RT [facility] Last Admin: 09/07/19 03:00 Dose: Not Given Documented by: Melatonin (Melatonin) 3 mg PO QHS PRN PRN PRN Reason: INSOMNIA Last Admin: 09/05/19 22:10 Dose: 3 mg Documented by: Nutritional Formula ([place] - [place]ine Flavor) [facility] Last Admin: 09/06/19 17:21 Dose: 1 packet Documented by: Ondansetron HCl (Zofran) 4 mg IV Q8H PRN PRN PRN Reason: NAUSEA/VOMITING Last Admin: 09/01/19 04:43 Dose: 4 mg Documented by: Potassium Chloride (K-Dur) 40 meq [facility] Last Admin: 09/06/19 08:35 Dose: 40 meq Documented by: Prochlorperazine Edisylate (Compazine Iv) 10 mg IV Q4H PRN PRN PRN Reason: NAUSEA/VOMITING Last Admin: 09/01/19 08:41 Dose: 10 mg Documented by: Sodium Chloride () 10 - 40 ml IV UD PRN PRN Reason: SALINE FLUSH Last Admin: 09/07/19 00:49 Dose: 10 ml Documented by: Medical Necessity - Tobacco Use Smoking Status: Current every day smoker Tobacco Use: Cigarettes Assessment/Plan All Active Problems Atrial fibrillation (Acute) Sigmoid diverticulitis (Acute) Failure of outpatient treatment (Acute) Altered mental status (Acute) Colitis (Acute) Constipation (Acute) Large bowel obstruction (Acute) Partial delayed primary closure achieved, will continue wound vac on remainder Pt states she is going to rehab and I concur No additional surgical requirements at this time Would like to see the pt in the office 2 weeks after rehab discharge pending access at that time
[2019-09-07 06:36] LABS: Absolute Lymphocyte Count 1.47 X10^3/uL (0.83-4.51); Basophil# 0.03 X10^3/uL; Basophil% 0.3 % (0-1); Eosinophil# 0.17 X10^3/uL; Eosinophils% 1.7 % (0-5); Hematocrit 28.7 % (37-47); Hemoglobin 8.9 g/dL (12.0-15.0); Lymphocyte # 1.47 X10^3/ul (4.0); Lymphocyte % 14.4 % (19-41); Mean Corpuscular Hgb 27.6 pg (27.0-32.0); Mean Corpuscular Volume 88.9 fL (81-99); Mean Platelet Vol. 10.1 fl (6.2-12.0); Monocyte# 1.35 X10^3/uL; Monocyte% 13.2 % (0-10); NRBC Flagged by Analyzer 0 % (0-5); Neutrophil % 68.7 % (47-70); Platelet Count 598 K/mm3 (150-450); RBC Distribution Width CV 17.6 % (11.6-14.6); RBC Distribution Width SD 56.4 fl (35.1-43.9); Red Blood Count 3.23 M/mm3 (4.2-5.4); White Blood Count 10.2 K/mm3 (4.4-11.0)
[2019-09-07 06:41] LABS: Bedside Glucose 110 mg/dL (70-110)
[2019-09-07 06:58] LABS: BUN 18 mg/dL (7-18); Glucose 111 mg/dL (74-106)
[2019-09-07 06:59] VITALS: PULSE 67
[2019-09-07 06:59] LABS: Anion Gap 5 (5-15); BUN/Creat Ratio 22.6 RATIO (10-20); Chloride 107 mmol/L (98-107); EST Glomerular Filtration Rate 77 mL/min (>60); Est Glom Filt Rate - Afr Amer 93 mL/min (>60); Estimated Creatinine Clearance 65.63 ml/min; Potassium 3.6 mmol/L (3.5-5.1); Sodium Level 138 mmol/L (136-145)
[2019-09-07 07:05] VITALS: PULSE 68; RESP 16; O2SAT 95
[2019-09-07] MEDS: Ipratropium 0.5 MG/2.5 ML SOLUTION INHALATION (07:05)
--- NOTE | 2019-09-07 08:24 | TREXTCAR_ITS ---
- Diet 09/06/19 17:18 Diet: Regular Diet Is pt able to select menu?: Yes Diet Comments: DIRECT SUPERVISION; no straws; DISCONTINUE if increased s/s of aspiration, - Routine Orders/Code Status Routine Lab Work: CBC - 3-5 days, BMP - 3-5 days - Wound(s) LUQ loop colostomy Wound Type: Surgical Incision LLQ Transverse Colostomy Wound Type: Open Surgical Wound Dressing Change: KCI wound VAC Midline Incision Wound Type: Surgical Incision Dressing Change: Wet to Dry Dressing L Wrist Wound Type: bruising - Therapies Physical Therapy: Eval and Treat Occupational Therapy: Eval and Treat - Allergies/Procedures Done in Hospital Allergies/Adverse Reactions: Allergies promethazine HCl [From Phenergan] Adverse Reaction (Verified 08/24/19 13:16) Vomiting BEE STING Allergy (Uncoded 08/24/19 13:16) Anaphylaxis Procedures: 2-D Echocardiogram - Type of Care/Length of Stay Estimated LOS: Convalescent Care Less Than 30 days Type of Care Needed: Skilled Rehab Potential: Good Prognosis: Good - Additional Orders/Day of Discharge Day of Discharge: 09/07/19 - Dietary and Speech Recommendations Dietitian Recommendations/Changes: Rec advance diet as tolerated to transitional, consistency/texture per BOOK TRIMMER; goal for carb-controlled/cardiac as needed given elevated blood glucose level. Continue [place] 1 packet BID to promote wound healing. Speech Linguistic Eval Summary: The patient is a 64 year old F who presented to the ED on 08/24/2019 d/t abdominal pain and confusion. Patient's son at bedside who is visiting from [place] reports he stayed with patient over weekend and she had intermittent confusion and falls. 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 Patient also reports left eye vision changes since presentation to the ED ? intermittent blurred vision. Past medical history is significant for diverticulitis, GERD, tobacco dependence, CAD with history of stent, restless leg syndrome, depression, anxiety, hyperlipidemia, IBS with constipation. Pt lives alone but son who lives in [place] visits frequently. 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 Pt is currently NPO d/t abdominal pain ? unable to evaluate swallow function. Pt reports that she underwent an esophageal dilation w/ Dr. Peters d/t difficulty swallowing food, reporting ?it won?t go up and won?t go down?. Pt indicates that the dilation did not improve swallow function and she was ordered to have an outpatient MBS on 09/02/2019. Will await lifting of NPO status to complete the bedside swallow evaluation. Carin COE aware and will notify ST if reassessment is necessary today, although anticipates will remain NPO at this time. Cognitive-linguisitic evaluation initiated this date. Pt is fully oriented. Answered complex/comparison yes/no ?s w/ 3/4 accuracy. Executed 3 step commands w/ 2/3 accuracy. Questionably dysarthric speech, although patient reports this to be her baseline and no family present to confirm/deny this. Generative naming WNL. No instances of apraxia or anomia in conversation, nor present in structured speech tasks. Demonstrated sufficient problem solving skills. Immediate recall via repeating back details from a story immediately after hearing it ? 04/09 details provided. Able to read and demonstrate comprehension at the word level. Pt reports new onset of blurred vision w/ this admission ?that comes and goes? ? reports vision to be clear at time of assessment. Evaluation ended d/t arrival of Dr. Hartmann to address patient?s abdominal pain. Pt appearing quite uncomfortable throughout evaluation w/ high suspicion that performance was negatively impacted by pain. Will await MRI results and follow to ensure cognitive-lingusitic function had returned to baseline w/ resolution of pain and plan for bedside swallow evaluation once NPO status is lifted ? patient is scheduled for an outpatient MBS 09/02/2019. - Follow Up Care Primary Care Physician: Magan Garcia MD [Primary Care Provider] - Please follow up with your Primary Care Physician in: 3-5 days Please Follow Up With: Jamal Lizarraga NP-C When: 2- 4 weeks Please Follow Up With: Jerrell Hutchins MD When: 2 weeks after rehabd dc
[2019-09-07 08:49] VITALS: BP 142/81; PULSE 71; RESP 15; TEMP 36.7; O2SAT 96
[2019-09-07] MEDS: DULoxetine Hcl 30 MG Capsule PO (08:56)
[2019-09-07] MEDS: DULoxetine Hcl 60 MG Capsule PO (08:56)
[2019-09-07] MEDS: buPROPion (SR) 150 MG Tablet.SA PO (08:57)
[2019-09-07] MEDS: Furosemide 20 MG Tablet PO (08:57)
[2019-09-07] MEDS: Amiodarone 200 MG Tablet PO (08:58)
[2019-09-07] MEDS: dilTIAZem CD 180 MG Capsule PO (08:58)
[2019-09-07] MEDS: Enoxaparin 80 MG/0.8 ML Syringe 70 MG SC (08:59)
--- NOTE | 2019-09-07 09:36 | CASEMGMT ---
SW spoke with patient and her daughter and they both agree to patient going to TCU. They are both aware that there are no visitors in TCU currently. Plan: [facility] TCU under skilled level of care Estee CASPER
--- NOTE | 2019-09-07 09:54 | CASEMGMT ---
CARLOTTA notified Alyce with [facility] via voice mail that patient is now going to TCU. Estee ANDINO MSW
--- NOTE | 2019-09-07 10:19 | PHA.DC.MR ---
Pharmacy Service has performed discharge medication reconciliation for this patient. The patient's discharge medication list was reviewed for discrepancies and discrepancies were resolved. Home Medications Pantoprazole Sodium [Protonix] 40 mg PO DAILY 03/21/17 L.acidoph,Paracasei, B.lactis [Probiotic] 1 cap PO DAILY 12/30/17 Duloxetine Hcl [Cymbalta] 60 mg PO DAILY 01/25/19 Bupropion HCl [Bupropion HCl Sr] 150 mg PO BID 01/27/19 Clopidogrel Bisulfate [Clopidogrel] 75 mg PO DAILY 01/27/19 Ezetimibe 10 mg PO DAILY 01/27/19 Fenofibrate 54 mg PO DAILY 01/27/19 Ondansetron [Zofran Odt] 4 mg PO Q8H PRN PRN #10 tab 08/21/19 Doxepin HCl 100 mg PO QHS 08/24/19 Duloxetine HCl 30 mg PO DAILY 08/24/19 Ropinirole HCl [Ropinirole ER] 4 mg PO QHS 08/24/19 Amiodarone HCl [Cordarone] 200 mg PO BID tab 09/07/19 Amiodarone HCl [Cordarone] 200 mg PO DAILY tab 09/07/19 Atorvastatin Calcium [Lipitor] 80 mg PO QHS tab 09/07/19 Diltiazem CD [Cardizem CD] 180 mg PO DAILY cap 09/07/19 Furosemide [Lasix] 20 mg PO DAILY tab 09/07/19 Nutritional Supplement [Everton - ORANGE FLAVOR] 1 packet PO BIDCM packet 09/07/19 Potassium Chloride [K-Dur] 20 meq PO DAILYCM tab 09/07/19
--- NOTE | 2019-09-07 10:26 | DS.PCM_ITS ---
Discharge Date and Diagnosis - Problem List Patient Problems: Active and Suspected Problems Atrial fibrillation (Acute) Altered mental status (Acute) Colitis (Acute) Constipation (Acute) Large bowel obstruction (Acute) Date of Admission: 08/24/19 Date of Discharge: 09/07/19 - Primary Discharge Diagnosis Active and Suspected Problems Atrial fibrillation (Acute) Altered mental status (Acute) Colitis (Acute) Constipation (Acute) Large bowel obstruction (Acute) - Secondary Discharge Diagnosis Chronic Problems History of cardioversion (Chronic 09/02/19) Tobacco dependence syndrome (Chronic) History of Clostridium difficile infection (Chronic) Hospital Course and Treatment Imaging Results: CT Brain: IMPRESSION: No acute intracranial abnormality. Chronic ischemic and atrophic changes. CT Abd: IMPRESSION: Colitis in the sigmoid colon. No bowel obstruction. Constipation. No free air, free fluid or fluid collection. MRI Brain: IMPRESSION: Involutional changes of the brain, as described above. MRA Head: IMPRESSION: Normal MRA of the head MRA Neck: IMPRESSION: Normal bilateral cervical carotid and vertebral arteries. Echo: Interpretation Summary The estimated ejection fraction is 65 %. Stage 1 diastolic dysfunction. The left atrium is mildly enlarged. Mild (1+) tricuspid valve insufficiency. Right ventricular systolic pressure estimated to be 55 mmHg. Moderate pulmonary hypertension. There is no comparison study available. CT Abd/pelvis: IMPRESSION: Status post colostomy in the left anterior abdominal wall. Postoperative changes in the peritoneal fat in the left upper and mid mesenteric fat. Left anterior pararenal space fluid as well as fluid in the paracolic gutters and in the pelvis. Fluid filled right hemicolon as well as mild fluid-filled dilated small bowel loops in the lower abdomen and pelvis. CTA Chest: IMPRESSION: There is no evidence of pulmonary embolism. Diffuse bilateral groundglass appearance worse in the right lung with a small right pleural effusion with underlying atelectasis and/or infiltrate as well as mild infiltration and/or atelectasis at the left lung base. Report of Operation Date of Procedure: 08/25/19 Pre-Operative Diagnosis: Large bowel obstruction secondary to suspected sigmoid stricture possible diverticulitis in additional severe functional constipation Post-Operative Diagnosis: Same with extensive intra-abdominal adhesions Surgery/Procedure Performed:: Loop transverse colostomy Report of Operation Date of Procedure: 08/26/19 Pre-Operative Diagnosis: Large bowel obstruction, ischemic transfers colostomy l oop stoma Post-Operative Diagnosis: Same Surgery/Procedure Performed:: Exploratory laparotomy with extensive lysis of adhesions and left colectomy with Hardeep procedure and end transverse colostomy left lower quadrant with excision of previous loop colostomy left upper abdomen Cardioversion Cardioversion: DC cardioversion summary: With the assistance of the patient's daughter, who is DURABLE POWER OF PRESSURE TANK OPERATOR, the risk/benefits of the DC cardioversion were thoroughly explained to the patient and her daughter and informed consent was obtained. The reason for the cardioversion was to assist with uncontrolled atrial fibrillation despite IV Cardizem drip and IV amiodarone drip for the better part of 24 hours. In addition the patient may require additional surgery which may be problematic given ongoing anticoagulation therapy. Patient is currently in atrial fibrillation with controlled ventricular response on IV Cardizem and IV amiodarone drip. Her potassium was replaced this morning, and the patient agreed to proceed with cardioversion. The defibrillator pads were placed in the AP position, and with the assistance of Dr. Surya Munoz the patient was given a single injection of 40 mg of IV propofol. Once adequate sedation was obtained the patient received a single 200 J biphasic synchronized shock which converted from atrial fibrillation to normal sinus rhythm. Her rhythm remained durable, and the defibrillator pads were removed. Conclusions: Successful IV amiodarone and IV Cardizem assisted DC cardioversion with a single biphasic 200 J shock converting her from atrial fibrillation to normal sinus rhythm. Recommendations: At this point she is n.p.o. and is unable to take p.o. meds so therefore we will continue her IV Cardizem and IV amiodarone drip for another 24 hours. In addition we will increase her Lovenox to 70 g subcu twice daily full anticoagulation should the patient revert back to atrial fibrillation. Once the patient is able to take p.o., we will wean her off her amiodarone and Cardizem drip and switch her to p.o. Cardizem 120 mg daily, and amiodarone 200 mg p.o. twice daily for 5 days followed by 200 mg daily. Many thanks to Dr. Surya Munoz. Patient taught procedure well. No complications. Consultations 08/25/19 21:14 Consult: Onc/Wound/credit negotiator Routine Comment: Operations: - - Exploratory laparotomies Procedures: 2-D Echocardiogram, Cardioversion Summary of Care Provided: Per HPI: The patient is a 64 year old F who presents emergency room due to abdominal pain and confusion. Patient's son at bedside who is visiting from [place] reports he stayed with patient over weekend and she had intermittent confusion and falls. He reports this is abnormal for patient. She was reported to have hallucinations and talking about things that did not make sense. He denies noticing slurred speech or focal deficits. Patient has right facial droop which is somewhat chronic however her son feels her right facial droop is worse now than it has been in the past. Patient also reports left eye vision changes. 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 She has never had an MRI. Patient reports abdominal pain which has been ongoing for greater than 1 week. She was placed on Augmentin by her primary care provider for diverticulitis last week. She denies fever, chills. Denies nausea, vomiting. Reports abdominal distention and significant abdominal tenderness, worse on left lower quadrant. Denies diarrhea. She has a past medical history of diverticulitis, GERD, tobacco dependence, CAD with history of stent, restless leg syndrome, depression, anxiety, hyperlipidemia, IBS with constipation. Hospital Course: 1. Sigmoid colitis and severe sepsis secondary to peritonitis and fecal contamination status post colectomy with transverse colostomy/IBS with [id number] female who presented to the ER with abdominal pain and confusion. At first she appeared to have some slurred speech and right facial droop so we are ruling out a CVA. However she was also given some laxatives to help her have a bowel movement which led to having significant abdominal pain. Surgery was consulted and they performed 2 separate exploratory laparotomies to decompress the colon. We are still unsure as to why she has such difficulty with stool. There was no significant pathology to indicate a stricture. After her second surgery she did have slow recovery but she did recover, her NG tube was removed after her second surgery and she was advanced slowly and her diet. She had a regular diet yesterday evening and today for breakfast which she has tolerated without any nausea. Because of the fecal contamination she received approximately 10 days of Zosyn which was also discontinued yesterday. I also feel like her Zosyn was leading to her chronic hypokalemia which has been repeatedly replaced during this course. She will need to follow-up with general surgery in 2 weeks after discharge from rehab. She is stable for discharge to TCU today for therapy. 2. Rule out CVA/right facial droop/slurred speech/HTN/HLD/CAD status post stent/A. fib with RVR/chronic diastolic CHF-MRIs and MRAs of her head and neck were negative for any acute stroke. She did have a cardioversion since she was found to be in A. fib with RVR and she was started on Cardizem and amiodarone. She will be on amiodarone twice daily for 1 more day and then she will be transitioned to amiodarone daily starting on 09/09/2019. She was on therapeutic Lovenox and this can be transitioned to Eliquis for the next several months post cardioversion. Because of her being on Cardizem will discontinue her metoprolol, and her blood pressure seems to be fairly well-controlled at the moment so can also discontinue her lisinopril. 3. Her other medical diagnoses were evaluated and her home medications were continued where appropriate Patient Problems: Active and Suspected Problems Atrial fibrillation (Acute) Altered mental status (Acute) Colitis (Acute) Constipation (Acute) Large bowel obstruction (Acute) - Physical Exam Vitals/I&O's: Vital Signs Temp Pulse Resp BP Pulse Ox 98.1 F 71 15 142/81 H 96 09/07/19 08:49 09/07/19 08:49 09/07/19 08:49 09/07/19 08:49 09/07/19 08:49 Oxygen Flow Rate (L/min) 2 Oxygen Delivery Method Room Air Weight: 159 lb 6.307 oz Body Mass Index (BMI) 27.8 Finger Stick Blood Glucose 86 Intake and Output for Last 24 Hours 09/05/19 09/06/19 09/07/19 23:59 23:59 23:59 Intake Total 1557.25 / 1557.25 1968.75 / 2268.75 400 / 400 Output Total 650 / 650 300 / 450 300 / 300 Balance 907.25 / 907.25 1668.75 / 1818.75 100 / 100 General: Alert, Oriented x3, Cooperative, No apparent distress HEENT: Atraumatic, PERRLA, EOMI, Normocephalic Oral: Moist Mucosa Neck: Supple, No JVD Lungs: Clear to auscultation, Normal air movement, No rhonchi, No wheeze, No rales, Diminished Cardiovascular: Regular rate, Regular Rhythm, Normal S1, Normal S2, No murmurs Abdomen: Soft, Non-Distended, No Hepato-splenomegaly, - - VAC in place, ostomy with output Extremities: No edema, Capillary Refill Less than 3 Seconds, left upper ex tremity redness from infiltration of amiodarone appears to be improving Skin: No rashes, No breakdown Neurological: Neuro grossly intact, Sensory exam intact to light touch and pain Psych/Mental Status: Normal Affect, Appropriate Laboratory Results 09/05/19 12:10: POC Glucose 143 H 09/06/19 12:35: POC Glucose 125 H 09/06/19 17:05: POC Glucose 129 H 09/06/19 21:16: POC Glucose 126 H 09/07/19 06:04: WBC 10.2, RBC 3.23 L, Hgb 8.9 L, Hct 28.7 L, MCV 88.9, MCH 27.6, MCHC 31.0 L, RDW Std Deviation 56.4 H, RDW Coeff of [place] 17.6 H, Plt Count 598 H, MPV 10.1, Immature Gran % (Auto) 1.700 H, Neut % (Auto) 68.7, Lymph % (Auto) 14.4 L, [place] % (Auto) 13.2 H, Eos % (Auto) 1.7, Baso % (Auto) 0.3, Absolute Neuts (auto) 7.0, Absolute Lymphs (auto) 1.47, Nucleated RBC % 0 09/07/19 06:04: Sodium 138, Potassium 3.6, Chloride 107, Carbon Dioxide 26.0, Anion Gap 5, BUN 18, Creatinine 0.80, Estim Creat Clear Calc 65.63, Est GFR (MDRD) Af Amer 93, Est GFR (MDRD) Non-Af 77, BUN/Creatinine Ratio 22.6 H, Glucose 111 H, Calcium 8.0 L, Magnesium 2.0 09/07/19 06:34: POC Glucose 110 Current Medications Amiodarone HCl (Cordarone) 200 mg PO BID [facility] Stop: 09/08/19 10:01 Last Admin: 09/07/19 08:58 Dose: 200 mg Documented by: Amiodarone HCl (Cordarone) 200 mg PO DAILY [facility] Atorvastatin Calcium (Lipitor) 80 mg PO QHS [facility] Last Admin: 09/06/19 21:24 Dose: 80 mg Documented by: Bupropion HCl (Wellbutrin Sr (150mg Tablets)) 150 mg PO BID [facility] Last Admin: 09/07/19 08:57 Dose: 150 mg Documented by: Chlorhexidine Gluconate () 1 each TOPICAL DAILY [facility] Last Admin: 09/07/19 08:59 Dose: Not Given Documented by: Diltiazem HCl (Cardizem Cd) 180 mg PO DAILY [facility] Last Admin: 09/07/19 08:58 Dose: 180 mg Documented by: Doxepin HCl (Doxepin Hcl) 100 mg PO QHS [facility] Last Admin: 09/06/19 21:26 Dose: 100 mg Documented by: Duloxetine HCl (Cymbalta) 60 mg PO DAILY [facility] Last Admin: 09/07/19 08:56 Dose: 60 mg Documented by: Duloxetine HCl (Cymbalta) 30 mg PO DAILY [facility] Last Admin: 09/07/19 08:56 Dose: 30 mg Documented by: Enoxaparin Sodium (Lovenox) 70 mg SC Q12 [facility] Last Admin: 09/07/19 08:59 Dose: 70 mg Documented by: Furosemide (Lasix) 20 mg PO DAILY [facility] Last Admin: 09/07/19 08:57 Dose: 20 mg Documented by: Hydromorphone HCl (Dilaudid Inj) 0.5 mg IV Q3H PRN PRN PRN Reason: pain [id number] Last Admin: 09/07/19 06:39 Dose: 0.5 mg Documented by: Sodium Chloride () 250 mls @ 15 mls/hr IV .[id number] PRN PRN Reason: Saline Flush Last Infusion: 09/04/19 06:53 Dose: 0 mls/hr Documented by: Sodium Chloride () 250 mls @ 15 mls/hr IV .[id number] PRN PRN Reason: Additional IVPB Infusion Pantoprazole Sodium 40 mg/ (Sodium Chloride) 110 mls @ 330 mls/hr IV Q12 [facility] Last Infusion: 09/06/19 21:50 Dose: Infused Documented by: Sodium Chloride () 500 mls @ 15 mls/hr IV PRN PRN PRN Reason: Blood Transfusion Last Infusion: 09/03/19 23:17 Dose: Infused Documented by: Sodium Chloride () 500 mls @ 15 mls/hr IV .[id number] [facility] Last Infusion: 09/06/19 22:35 Dose: 0 mls/hr Documented by: Insulin Human Lispro (Humalog Kwikpen (Bkc)) 0 unit SC [facility]; Protocol Last Admin: 09/07/19 06:34 Dose: Not Given Documented by: Ipratropium [place] (Atrovent) 0.5 mg INHALATION Q4H.RT [facility] Last Admin: 09/07/19 07:05 Dose: 0.5 mg Documented by: Melatonin (Melatonin) 3 mg PO QHS PRN PRN PRN Reason: INSOMNIA Last Admin: 09/05/19 22:10 Dose: 3 mg Documented by: Nutritional Formula ([place] - [place] Flavor) [facility] Last Admin: 09/07/19 08:56 Dose: 1 packet Documented by: Ondansetron HCl (Zofran) 4 mg IV Q8H PRN PRN PRN Reason: NAUSEA/VOMITING Last Admin: 09/01/19 04:43 Dose: 4 mg Documented by: Potassium Chloride (K-Dur) [facility] Last Admin: 09/07/19 08:55 Dose: 40 meq Documented by: Prochlorperazine Edisylate (Compazine Iv) 10 mg IV Q4H PRN PRN PRN Reason: NAUSEA/VOMITING Last Admin: 09/01/19 08:41 Dose: 10 mg Documented by: Sodium Chloride () 10 - 40 ml IV UD PRN PRN Reason: SALINE FLUSH Last Admin: 09/07/19 06:38 Dose: 10 ml Documented by: Home Medications: Medications to take at Discharge Pantoprazole Sodium [Protonix] 40 mg PO DAILY 03/21/17 L.acidoph,Paracasei, B.lactis [Probiotic] 1 cap PO DAILY 12/30/17 Duloxetine Hcl [Cymbalta] 60 mg PO DAILY 01/25/19 Bupropion HCl [Bupropion HCl Sr] 150 mg PO BID 01/27/19 Clopidogrel Bisulfate [Clopidogrel] 75 mg PO DAILY 01/27/19 Ezetimibe 10 mg PO DAILY 01/27/19 Fenofibrate 54 mg PO DAILY 01/27/19 Ondansetron [Zofran Odt] 4 mg PO Q8H PRN PRN #10 tab 08/21/19 Doxepin HCl 100 mg PO QHS 08/24/19 Duloxetine HCl 30 mg PO DAILY 08/24/19 Ropinirole HCl [Ropinirole ER] 4 mg PO QHS 08/24/19 Amiodarone HCl [Cordarone] 200 mg PO BID tab 09/07/19 Amiodarone HCl [Cordarone] 200 mg PO DAILY tab 09/07/19 Atorvastatin Calcium [Lipitor] 80 mg PO QHS tab 09/07/19 Diltiazem CD [Cardizem CD] 180 mg PO DAILY cap 09/07/19 Furosemide [Lasix] 20 mg PO DAILY tab 09/07/19 Nutritional Supplement [[place] - ORANGE FLAVOR] 1 packet PO BIDCM packet 09/07/19 Potassium Chloride [K-Dur] 20 meq PO DAILYCM tab 09/07/19 Primary Care Physician: Magan Garcia MD [Primary Care Provider] - Please follow up with your Primary Care Physician in: 3-5 days Please Follow Up With: Jamal Lizarraga, MECHANICAL EQUIPMENT SALES ENGINEER-C When: 2- 4 weeks Please Follow Up With: Jerrell Hutchins MD When: 2 weeks after rehabd dc Disposition: Custodial facility Minutes spent on discharge:: 35 Patient Condition:: Stable Medical Necessity - Tobacco Use Smoking Status: Current every day smoker Tobacco Use: Cigarettes Meaningful Use Info Meaningful Use Diagnoses (Choose all that apply): None applicable Inpatient E&M: 00011 Disch Hosp
--- NOTE | 2019-09-07 10:41 | NURSING ---
Pt doing well today. states she has been up ambulating in the halls. Pt is currently up in the chair. daughter present in room. Pt is tolerating a regular diet well. wound VAC dressing intact. pt assisted this nurse with emptying her colostomy appliance for approx 200 cc's liquid green/brown stool. plan is for patient to go to TCU today. will continue to follow.
--- NOTE | 2019-09-07 11:13 | NURSING ---
Report called to julieta in tcu
== END 2019-09-07 13:10 | disposition skilled nursing facility (03) | DRG 329 ==
LOC: ED 17:40 → MS3 18:01 → PCU 08-25 06:47 → ICU 08-26 00:38 → PCU 08-28 17:33 → ICU 09-01 10:27 → PCU 09-03 22:04
PROVIDERS: Hospitalist; Internal Medicine Cardiovascular Disease; Internal Medicine Critical Care Medicine; Nurse Practitioner Family; Surgery; Admitting Provider Family Medicine; Emergency Provider Emergency Medicine; PCP Family Medicine; Visit Provider Student in an Organized Health Care Education/Training Program
PROC: 0D1L0Z4 Bypass Transverse Colon to Cutaneous, Open Approach (ICD-10-PCS; principal; 2019-08-25 16:00)
PROC: 0DTG0ZZ Resection of Left Large Intestine, Open Approach (ICD-10-PCS; principal; 2019-08-26 13:15)
DX: K56.601 Complete intestinal obstruction, unspecified as to cause (principal); K55.049 Acute infarction of large intestine, extent unspecified; A41.9 Sepsis, unspecified organism; K65.9 Peritonitis, unspecified; R65.20 Severe sepsis without septic shock; J95.821 Acute postprocedural respiratory failure; G93.41 Metabolic encephalopathy; D62 Acute posthemorrhagic anemia; K94.09 Other complications of colostomy; I50.32 Chronic diastolic (congestive) heart failure; I48.91 Unspecified atrial fibrillation; E87.6 Hypokalemia; I25.10 Atherosclerotic heart disease of native coronary artery without angina pectoris; K66.0 Peritoneal adhesions (postprocedural) (postinfection); E78.5 Hyperlipidemia, unspecified; K58.1 Irritable bowel syndrome with constipation; G51.0 Bell's palsy; G25.81 Restless legs syndrome; R13.10 Dysphagia, unspecified; F17.210 Nicotine dependence, cigarettes, uncomplicated; I11.0 Hypertensive heart disease with heart failure; Y83.8 Other surgical procedures as the cause of abnormal reaction of the patient, or of later complication, without mention of misadventure at the time of the procedure; Z90.710 Acquired absence of both cervix and uterus; Z90.49 Acquired absence of other specified parts of digestive tract; Z79.82 Long term (current) use of aspirin; Z79.02 Long term (current) use of antithrombotics/antiplatelets; Z95.5 Presence of coronary angioplasty implant and graft
CPT/HCPCS: 31720; 36415; 36600; 70450; 70544; 70547; 70551; 71045; 71046; 71275; 74018; 74177; 80048; 80053; 80061; 80307; 81001; 82140; 82550; 82607; 82728; 82746; 82803; 82962; 83540; 83550; 83605; 83735; 83880; 84100; 84439; 84443; 84478; 84484; 85025; 85027; 85610; 86850; 86900; 86901; 86920; 86922; 87070; 87205; 87641; 88307; 92522; 92526; 92610; 93005; 93306; 94002; 94003; 94640; 94660; 94762; 97110; 97116; 97162; 97163; 97167; 97530; 97535; 97802; 99251; 99285; 99406; J7030; J7040; J7050; J7120; P9016; Q9967; A4216; C1760; G0463; J0744; J1940; J2310; J2405; J3470; J3490

== ENCOUNTER 2019-09-07 13:31 | Inpatient (IN) | payer MEDICARE, OTHER, SELFPAY ==
[2019-09-06 10:54] VITALS: BMI 27.8
[2019-09-07 13:55] VITALS: BP 130/89; PULSE 76; RESP 18; TEMP 36.4; O2SAT 98; BMI 26.4
[2019-09-07 14:06] VITALS: BMI 26.4
[2019-09-07] MEDS: oxyCODONE 5 MG Tablet PO ×3 (14:49→23:00)
--- NOTE | 2019-09-07 16:28 | CASEMGMT ---
Social Work Reviewed and agreed with social work planning intern documentation on this date. Shannon Mike, FISH TECHNOLOGIST BATT PACKER
--- NOTE | 2019-09-07 16:43 | CASEMGMT ---
Social Work Met with pt to complete assessment. During assessment, pt asking for resources for UTILITY PIPE LAYER to take pts pets outside, after pt DC-gave pt resources. Educated pt that UTILITY PIPE LAYER would be private pay-pt agreeable. Pt wanted to know about adding eyecare and dental to Medicare insurance, SWI educated that those can only be added during open enrollment period, March-May. Pt also asked about getting a w/c or walker, gave pt resources where to find w/c or walker but educted that she would not need to get DME until DC because one eligible item can be covered by insurance-pt agreeable. Pt also asked for resources on [employer]-provided pt with resources. Pt appreciative of resources. Jacqueline Khan, social work cad intern Shannon Mike, ELECTRICIAN SHOP CIGAR TOBACCO REHANDLER
[2019-09-07] MEDS: buPROPion (SR) 150 MG Tablet.SA PO (17:42)
[2019-09-07] MEDS: Amiodarone 200 MG Tablet PO (17:42)
[2019-09-07] MEDS: traMADol 50 MG Tablet PO (17:49)
--- NOTE | 2019-09-07 18:54 | PCM.HP.STD ---
Problem List (1) Debility Status: Acute (2) Abdominal pain Status: Acute (3) Encephalopathy Status: Acute (4) Visual hallucinations Status: Acute (5) Sepsis Status: Acute (6) Atrial fibrillation with rapid ventricular response Status: Acute (7) Hypokalemia Status: Acute (8) Diverticulitis Status: Chronic (9) GERD (gastroesophageal reflux disease) Status: Chronic (10) Coronary artery disease Status: Chronic (11) Restless legs syndrome Status: Chronic (12) Depression Status: Chronic (13) Anxiety Status: Chronic (14) Hyperlipidemia Status: Chronic (15) Irritable bowel syndrome with constipation Status: Chronic (16) Fecal impaction of colon Status: Acute (17) Colitis Status: Acute (18) Large bowel obstruction Status: Acute (19) Tobacco dependence syndrome Status: Chronic History of Present Illness Date of Admission: 09/07/19 Chief Complaint: Here for rehabilitation, strengthening, prior to discharge home with family. The patient is a 64 year old Female with below past medical history presented to [facility] Emergency Department 08/24/2019 with abdominal pain, confusion, hallucinations. 08/24/2019 CT brain negative. 08/25/2019 EKG normal sinus rhythm, nonspecific ST&T wave abnormality. 08/24/2019 CT abdomen/pelvis showed sigmoid colitis, constipation. Lower abdominal pain, confusion, visual hallucinations x 3 days. Left lower quadrant abdominal pain, already on Augmentin for possible diverticulitis. Pain getting worse. WBC 11.1, Hemoglobin 8.2, Hematocrit 25.6, BUN 20, Cr 1.28. INR normal. UA negative, Troponin OK, Lactate OK, Ammonia OK. Morphine, Zofran, IV fluids given, Morphine repeated. Cipro, Flagyl, given. 08/24/2019 Admit to Hospital. Cipro IV, Flagyl IV, Pain medications PRN, Antiemetics PRN for sigmoid colitis. MRI brain, MRA head/neck, Echo ordered for stroke evaluation due to mental status change. Lactulose ordered for constipation. 08/25/2019 MRI brain showed involutional changes. 08/25/2019 MRA head/neck normal. 08/25/2019 Dr. Hutchins performed Loop transverse colostomy. 08/26/2019 Dr. Hutchins performed exploratory laparotomy, adhesion lysis, left colectomy with Hardeep procedure, end transverse colostomy, left lower quadrant. 09/01/2019 CT abdomen/pelvis shows status post colostomy, left pararenal, paracolic gutters, pelvic fluid, fluid filled right hemicolon, mild fluid filled dilated small bowel loops. 09/01/2019 CTA chest negative for pulmonary embolism, but diffuse ground glass appearance, bibasilar atelectasis/infiltrate. 09/02/2019 Successful amiodarone, cardizem assisted DC cardioversion per Dr. Garcia. Zosyn x 10 days for fecal contamination. Hypokalemia repleted. 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 09/07/2019 Admit to TCU with debility, here for rehabilitation, strengthening, prior to discharge home with family. Past Medical History Past Medical History (Chronic Problems): Chronic Problems Diverticulitis (Chronic) GERD (gastroesophageal reflux disease) (Chronic) Coronary artery disease (Chronic) Restless legs syndrome (Chronic) Depression (Chronic) Anxiety (Chronic) Hyperlipidemia (Chronic) Irritable bowel syndrome with constipation (Chronic) History of cardioversion (Chronic 09/02/19) Tobacco dependence syndrome (Chronic) History of Clostridium difficile infection (Chronic) Allergies promethazine HCl [From Phenergan] Adverse Reaction (Verified 08/24/19 13:16) Vomiting BEE STING Allergy (Uncoded 08/24/19 13:16) Anaphylaxis Home Medications: Ambulatory Orders Medication Instructions Recorded Pantoprazole Sodium [Protonix] 40 mg PO DAILY 03/21/17 L.acidoph,Paracasei, B.lactis 1 cap PO DAILY 12/30/17 [Probiotic] Duloxetine Hcl [Cymbalta] 60 mg PO DAILY 01/25/19 Bupropion HCl [Bupropion HCl Sr] 150 mg PO BID 01/27/19 Clopidogrel Bisulfate [Clopidogrel] 75 mg PO DAILY 01/27/19 Ezetimibe 10 mg PO DAILY 01/27/19 Fenofibrate 54 mg PO DAILY 01/27/19 Ondansetron [Zofran Odt] 4 mg PO Q8H PRN PRN #10 tab 08/21/19 Doxepin HCl 100 mg PO QHS 08/24/19 Duloxetine HCl 30 mg PO DAILY 08/24/19 Ropinirole HCl [Ropinirole ER] 4 mg PO QHS 08/24/19 Amiodarone HCl [Cordarone] 200 mg PO BID tab 09/07/19 Amiodarone HCl [Cordarone] 200 mg PO DAILY tab 09/07/19 Atorvastatin Calcium [Lipitor] 80 mg PO QHS tab 09/07/19 Diltiazem CD [Cardizem CD] 180 mg PO DAILY cap 09/07/19 Furosemide [Lasix] 20 mg PO DAILY tab 09/07/19 Nutritional Supplement [Everton - 1 packet PO BIDCM packet 09/07/19 ORANGE FLAVOR] Potassium Chloride [K-Dur] 20 meq PO DAILYCM tab 09/07/19 Surgical History: Surgical History (Last Updated 09/02/19 @ 18:03 by Carmelita Mccoy) History of cardioversion (Chronic) Onset Date: 09/02/19 Z98.890 Surgical History: angioplasty - cardiac stent., appendectomy, cholecystectomy, hysterectomy Psychiatric History: Anxiety, Depression 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 Smoking Status: Current every day smoker Tobacco Use: Cigarettes Alcohol: None Drugs: None - *Family History Maternal History Items: Diabetes, Heart Disease Paternal History Items: Cancer - His father from pancreatic cancer at the age of 51. Review of Systems Constitutional: Denies: Chills, Fever, Weight Change HEENT: Denies: Head Aches, Sinus Congestion, Sinus Drainage Cardiovascular: Denies: Chest Pain, Palpitations Respiratory: Denies: Cough, Shortness of breath at rest, Sputum production Gastrointestinal: Denies: Abdominal Pain, Nausea, Vomiting Genitourinary: Denies: Dysuria Musculoskeletal: Denies: Joint Pain, Joint Tenderness Skin: Denies: Rash, Wounds Neurological: Denies: Numbness, Tingling, Focal weakness Psychiatric: Denies: Anxiety, Depression, Homicidal Ideations, Suicidal Ideations Hematologic/ Lymphatic: Denies: Easy Bruising, Easy Bleeding VTE Information - Inpt Only VTE Present on Admission: No VTE Mechan Device Prophylaxis: Knee High NICOLLE Hose VTE Pharm Prophylaxis ordered?: Yes Patient Problems: Active and Suspected Problems Debility (Acute) Abdominal pain (Acute) Encephalopathy (Acute) Visual hallucinations (Acute) Sepsis (Acute) Atrial fibrillation with rapid ventricular response (Acute) Hypokalemia (Acute) Fecal impaction of colon (Acute) - Physical Exam Vitals/I&O's: Vital Signs Temp Pulse Resp BP Pulse Ox 97.5 F L 76 18 130/89 H 98 09/07/19 13:55 09/07/19 13:55 09/07/19 13:55 09/07/19 13:55 09/07/19 13:55 Oxygen Delivery Method Room Air Weight: 72.076 kg Body Mass Index (BMI) 26.4 Finger Stick Blood Glucose 86 General: Alert, Oriented x3, Cooperative HEENT: Atraumatic, PERRLA, EOMI, Normocephalic Neck: Supple, No JVD, Negative Carotid Bruits Lungs: Clear to auscultation, Normal air movement Cardiovascular: Regular rate, No murmurs Abdomen: Bowel Sounds Present, Soft, Non Tender, - - Midline incision, wound VAC applied, left lower quadrant colostomy. Extremities: No edema, Capillary Refill Less than 3 Seconds Skin: No rashes, No breakdown Musculoskeletal: No Tenderness to Palpation of Joints or Extremities Neurological: Cranial nerves II-XII grossly intact Psych/Mental Status: Normal Affect, Appropriate Current Medications Acetaminophen (Tylenol) 1,000 mg PO Q6H PRN PRN PRN Reason: Pain Score 1-3/10 Amiodarone HCl (Cordarone) 200 mg PO DAILY [facility] Amiodarone HCl (Cordarone) 200 mg PO BID [facility] Stop: 09/08/19 18:01 Last Admin: 09/07/19 17:42 Dose: 200 mg Documented by: Atorvastatin Calcium (Lipitor) 80 mg PO QHS [facility] Bupropion HCl (Wellbutrin Sr (150mg Tablets)) 150 mg PO BID [facility] Last Admin: 09/07/19 17:42 Dose: 150 mg Documented by: Clopidogrel Bisulfate (Plavix) 75 mg PO DAILY [facility] Diltiazem HCl (Cardizem Cd) 180 mg PO DAILY [facility] Doxepin HCl (Doxepin Hcl) 100 mg PO QHS [facility] Duloxetine HCl (Cymbalta) 30 mg PO DAILY [facility] Duloxetine HCl (Cymbalta) 60 mg PO DAILY [facility] Ezetimibe (Zetia) 10 mg PO DAILY [facility] Enoxaparin Sodium (Lovenox) 40 mg SC DAILY [facility]) [facility] Furosemide (Lasix) 20 mg PO DAILY [facility] Melatonin (Melatonin) 10 mg PO QHS [facility] Nutritional Formula (Everton - Hickory Flavor) [facility] Last Admin: 09/07/19 17:42 Dose: 1 packet Documented by: Ondansetron HCl (Zofran Odt) 4 mg PO Q8H PRN PRN PRN Reason: NAUSEA Oxycodone HCl (Oxyir) 5 mg PO Q4H PRN PRN PRN Reason: Pain Score 6-10/10 Last Admin: 09/07/19 14:49 Dose: 5 mg Documented by: Pantoprazole Sodium (Protonix) 40 mg PO DAILY [facility] Potassium Chloride (K-Dur) 20 meq PO DAILYCM [facility] Pramipexole Dihydrochloride (Mirapex) 0.375 mg PO TID [facility] Sodium Chloride () 10 - 40 ml IV UD PRN PRN Reason: SALINE FLUSH Tramadol HCl (Ultram) 50 mg PO Q6H PRN PRN PRN Reason: Pain Score 4-5/10 Last Admin: 09/07/19 17:49 Dose: 50 mg Documented by: Tuberculin PPD (Tubersol, Aplisol, Ppd) 5 tu ID [id number] Stop: 09/08/19 10:01 Tuberculin PPD (Tubersol, Aplisol, Ppd) 5 tu ID [id number] Stop: 09/15/19 10:01 Assessment/Plan All Active Problems Debility (Acute) Abdominal pain (Acute) Encephalopathy (Acute) Visual hallucinations (Acute) Sepsis (Acute) Atrial fibrillation with rapid ventricular response (Acute) Hypokalemia (Acute) Fecal impaction of colon (Acute) Atrial fibrillation (Acute) Sigmoid diverticulitis (Acute) Failure of outpatient treatment (Acute) Altered mental status (Acute) Colitis (Acute) Constipation (Acute) Large bowel obstruction (Acute) 64 year old female with below past medical history hospitalized for abdominal pain, encephalopathy due to sepsis, sigmoid colitis, large bowel obstruction requiring left colectomy, left lower quadrant colostomy 08/26/[address] Hutchins, complicated by atrial fibrillation with rapid ventricular response treated with cardioversion, hypokalemia, admitted to TCU with debility, here for rehabilitation, strengthening, prior to discharge home with family. Debility - PT/OT. Pain - Tylenol 1000MG Q6H PRN pain (1-3), Tramadol 50MG Q6H PRN pain (4-5), Oxycodone 5MG Q4H PRN pain (6-10). Bowel - liquid stool from colostomy, resident has history of chronic constipation, order X-ray of abdomen to evaluate stool burden, then order bowel regimen appropriately. Adult immunization - Administer Prevnar 13, Pneumovax 23, Fluzone as appropriate. DVT prophylaxis - Lovenox 40MG SC daily. 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 Hyperlipidemia - Atorvastatin 80MG QHS, Fenofibrate 48MG daily (No evidence that fibrates lower CV risk), Zetia 10MG daily (NNT very high for ezetimibe, consider Vascepa 2GM twice daily as outpatient for more bang for your pack). Depression - Bupropion SR 150MG twice daily, Duloxetine 90MG daily. Coronary Artery Disease status post stent - ?beta ingris, Plavix 75MG daily. Insomnia - Doxepin 100MG QHS, Melatonin 10MG QHS. Edema - Lasix 20MG daily. Abdominal wound - consult wound team, wound VAC, Everton 1 packet twice daily. Nausea - Zofran 4MG Q8H PRN. GERD - Pantoprazole 40MG daily. Hypokalemia - KCL ER 20MEQ daily. Restless leg syndrome - Mirapex 0.375MG TID.
--- NOTE | 2019-09-07 19:15 | RAD_ITS ---
STUDY: X-RAY - ABDOMEN/PELVIS REASON FOR EXAM: Female, 64 years old. Constipation. Question large bowel obstruction. TECHNIQUE: Two AP supine views of the abdomen and pelvis. COMPARISON: Abdomen, September 03, 2019. FINDINGS: Lung bases are not included. The NG tube, present on the prior study, is no longer seen. Again seen is mildly distended bowel loops in the right abdomen. There is air and high density feces in the rectum unchanged from prior study. There is no demonstrated free abdominal air. The visualized liver, spleen and kidneys are grossly normal in size and morphology. Normal soft tissue structures. Normal visualized osseous structures. RAD/Abdomen Single View IMPRESSION: No major interval change when compared to prior study. Again seen are distended large and small bowel loops in right abdomen. Electronically Signed: Silvano Cam DO at 19:36 EDT Tel [phone], Service support ,
[2019-09-07] MEDS: Pramipexole Di-HCl 0.125 MG Tablet 0.375 MG PO (21:16)
[2019-09-07] MEDS: Atorvastatin Calcium 80 MG Tablet PO (21:16)
[2019-09-07] MEDS: Acetaminophen 500 MG Tablet 1000 MG PO (21:16)
[2019-09-07] MEDS: MELATONIN 10 MG TABLET PO (21:16)
[2019-09-07] MEDS: DOXEPIN HCL 50 MG CAPSULE 100 MG PO (21:17)
--- NOTE | 2019-09-08 04:18 | NURSING ---
Pt got out of bed unassisted. Pt stated she fell and hit her left side of head on the floor. Pt said she was going to bathroom. Pt had wet underpants laying on the floor. Pt ox 3 but appears foggy in details hand grasp equal bilaterally. Pt able to follow directions. Gait unsteady. Pt call bed intact on the bed rail. Pt bed in low position. [id number] Dr anderson notified and ordered to send pt to ed. Pt taken to ed. 425 daughter harshil notified of fall. 0430 Report called to Sim COE. [id number] malinda supervisor denture department notified
[2019-09-08] MEDS: Pramipexole Di-HCl 0.125 MG Tablet 0.375 MG PO ×3 (06:09→20:14)
[2019-09-08] MEDS: Furosemide 20 MG Tablet PO (06:09)
[2019-09-08] MEDS: buPROPion (SR) 150 MG Tablet.SA PO ×2 (06:09→17:17)
[2019-09-08] MEDS: Pantoprazole Sodium 40 MG Tablet PO (06:09)
[2019-09-08] MEDS: DULoxetine Hcl 30 MG Capsule PO (06:09)
[2019-09-08] MEDS: dilTIAZem CD 180 MG Capsule PO (06:09)
[2019-09-08] MEDS: Ezetimibe 10 MG Tablet PO (06:09)
[2019-09-08] MEDS: DULoxetine Hcl 60 MG Capsule PO (06:10)
[2019-09-08] MEDS: Amiodarone 200 MG Tablet PO ×2 (06:11→17:19)
[2019-09-08] MEDS: Acetaminophen 500 MG Tablet 1000 MG PO ×2 (06:16→15:37)
--- NOTE | 2019-09-08 06:21 | NURSING ---
dr Pemberton notified of results of catscan. D/c lovenox ok to give plavix
[2019-09-08] MEDS: Clopidogrel Bisulfate 75 MG Tablet PO (06:23)
--- NOTE | 2019-09-08 06:31 | NURSING ---
Pt requested this nurse to inform her daughter of the results and what is going on with her. Pt said her daughter is leaving to go home in [place] and wants me to release the information related to this incident.
[2019-09-08] MEDS: Fenofibrate 48 MG Tablet PO (08:46)
[2019-09-08] MEDS: oxyCODONE 5 MG Tablet PO ×3 (08:53→20:25)
[2019-09-08] MEDS: Tuberculin,Purif.prot.deriv. 50 TU/ML Vial 5 ML ID (11:30)
[2019-09-08] MEDS: Ondansetron ODT 4 MG Tablet PO (11:34)
--- NOTE | 2019-09-08 11:37 | NURSING ---
Dr Hutchins notified of KUB showing constipation. new order not to administer any thing rectally d/t pt having small rectal stump from surgery. will update dr anderson.
--- NOTE | 2019-09-08 12:08 | NURSING ---
Colostomy appliance intact. patient had approx 300 cc's unformed flores stool. abdomen soft. still slightly distended. Pt will need much encouragement to assist with empyting the ostomy appliance. pt does not remember this nurse changing the appliance with her on Friday. will continue education and encouragement. CAROLIN Estrada let this nurse know that KUB showed residual stool. patient aware that she may have some residual stool from rectum. CAROLIN Estrada had stated that Dr Pemberton had ordered a soap suds enema from her rectum. Informed CAROLIN Estrada that patient just had surgery and giving an enema could damage the rectal stump. Natalie to discuss with Dr Hutchins.
[2019-09-08 12:24] VITALS: BP 134/74; PULSE 77; RESP 16; TEMP 36.7; O2SAT 98
[2019-09-08 12:29] VITALS: O2SAT 98
[2019-09-08 13:56] VITALS: BP 123/70; PULSE 77; RESP 16; TEMP 36.7; O2SAT 96
--- NOTE | 2019-09-08 14:13 | PHA.CONS_ITS ---
<Zhanna Kearney - Last Filed: 09/08/19 14:13> Progress Note - Pharmacy Subjective: TCU Admission Objective: Allergies promethazine HCl [From Phenergan] Adverse Reaction (Verified 09/08/19 04:32) Vomiting BEE STING Allergy (Uncoded 09/08/19 04:32) Anaphylaxis Current Medications Generic Name Dose Route Start Last Admin Trade Name Freq PRN Reason Stop Dose Admin Acetaminophen 1,000 mg 09/07/19 14:08 09/08/19 06:16 Tylenol PO 1,000 mg Q6H PRN PRN Administration Pain Score 1-3/10 Amiodarone HCl 200 mg 09/09/19 06:00 Cordarone PO DAILY AARON Amiodarone HCl 200 mg 09/07/19 18:00 09/08/19 06:11 Cordarone PO 09/08/19 18:01 200 mg BID AARON Administration Atorvastatin Calcium 80 mg 09/07/19 22:00 09/07/19 21:16 Lipitor PO 80 mg QHS AARON Administration Bisacodyl 10 mg 09/08/19 08:00 Dulcolax PO DAILY PRN Constipation Bupropion HCl 150 mg 09/07/19 18:00 09/08/19 06:09 Wellbutrin Sr (150mg Tablets) PO 150 mg BID AARON Administration Clopidogrel Bisulfate 75 mg 09/08/19 06:00 09/08/19 06:23 Plavix PO 75 mg DAILY AARON Administration Diltiazem HCl 180 mg 09/08/19 06:00 09/08/19 06:09 Cardizem Cd PO 180 mg DAILY AARON Administration Doxepin HCl 100 mg 09/07/19 22:00 09/07/19 21:17 Doxepin Hcl PO 100 mg QHS AARON Administration Duloxetine HCl 30 mg 09/08/19 06:00 09/08/19 06:09 Cymbalta PO 30 mg DAILY AARON Administration Duloxetine HCl 60 mg 09/08/19 06:00 09/08/19 06:10 Cymbalta PO 60 mg DAILY AARON Administration Ezetimibe 10 mg 09/08/19 06:00 09/08/19 06:09 Zetia PO 10 mg DAILY AARON Administration Fenofibrate 48 mg 09/08/19 08:00 09/08/19 08:46 Tricor PO 48 mg DAILYCM AARON Administration Furosemide 20 mg 09/08/19 06:00 09/08/19 06:09 Lasix PO 20 mg DAILY AARON Administration Melatonin 10 mg 09/07/19 22:00 09/07/19 21:16 Melatonin PO 10 mg QHS AARON Administration Nutritional Formula 1 packet 09/07/19 17:00 09/08/19 08:46 [place] Flavor PO 1 packet BIDCM [facility] Administration Ondansetron HCl 4 mg 09/07/19 14:20 09/08/19 11:34 Zofran Odt PO 4 mg Q8H PRN PRN Administration NAUSEA Oxycodone HCl 5 mg 09/07/19 14:09 09/08/19 13:34 Oxyir PO 5 mg Q4H PRN PRN Administration Pain Score 6-10/10 Pantoprazole Sodium 40 mg 09/08/19 06:00 09/08/19 06:09 Protonix PO 40 mg DAILY [facility] Administration Polyethylene Glycol 17 gm 09/09/19 06:00 Miralax PO DAILY AARON Potassium Chloride 20 meq 09/08/19 08:00 09/08/19 08:46 K-Dur PO 20 meq DAILYCM [facility] Administration Pramipexole Dihydrochloride 0.375 mg 09/07/19 22:00 09/08/19 13:35 Mirapex PO 0.375 mg TID [facility] Administration Senna/Docusate Sodium 1 tablet 09/08/19 18:00 Senokot-S, Heaven-Colace PO BID [facility] Sodium Chloride 10 - 40 ml 09/07/19 14:57 IV UD PRN SALINE FLUSH Tramadol HCl 50 mg 09/07/19 14:09 09/07/19 17:49 Ultram PO 50 mg Q6H PRN PRN Administration Pain Score 4-5/10 Tuberculin PPD 5 tu 09/15/19 10:00 Tubersol, Aplisol, Ppd ID 09/15/19 10:01 X1 ONE Problem List Debility (Acute) Abdominal pain (Acute) Encephalopathy (Acute) Visual hallucinations (Acute) Sepsis (Acute) Atrial fibrillation with rapid ventricular response (Acute) Hypokalemia (Acute) Diverticulitis (Chronic) GERD (gastroesophageal reflux disease) (Chronic) Coronary artery disease (Chronic) Restless legs syndrome (Chronic) Depression (Chronic) Anxiety (Chronic) Hyperlipidemia (Chronic) Irritable bowel syndrome with constipation (Chronic) Fecal impaction of colon (Acute) Vital Signs Temp Pulse Resp BP Pulse Ox 98.1 F 77 16 123/70 H 96 09/08/19 13:56 09/08/19 13:56 09/08/19 13:56 09/08/19 13:56 09/08/19 13:56 Oxygen Delivery Method Room Air Weight: 72.076 kg Body Mass Index (BMI) 26.4 Finger Stick Blood Glucose 86 Assessment/Plan: *1. Pain: acetaminophen 1000mg PO Q6H PRN pain (1-08/30), tramadol 50mg PO Q6H PRN pain (-10/30), oxycodone 5mg PO Q4H PRN pain (1-11/30). Please continue to monitor for increased pain, PRN usage, renal function, respiratory depression and constipation. Patient has been receiving oxycodone regularly. Please consider scheduling acetaminophen to promote multimodal analgesia and decrease opioid need. Thanks. 2. Atrial fibrillation: amiodarone 200mg PO BID thru 09/07 then 200mg PO daily, diltiazem 180mg PO daily. Please see physician note regarding anticoagulation. Please continue to monitor BP, potassium and QTc. 3. Hyperlipidemia: atorvastatin 80mg PO QHS, fenofibrate 48mg PO daily, ezetimibe 10mg PO daily. Please continue to monitor lipid panel and LFT's. 4. Coronary Artery Disease: clopidogrel 75mg PO daily. Please continue to monitor for S/S of bleeding. 5. Edema: furosemide 20mg PO daily. Please continue to monitor renal function, edema and electrolytes. 6. GERD: pantoprazole 40mg PO daily. Please continue to monitor. 7. Hypokalemia: potassium chloride 20mEq PO BIDCM. Please continue to monitor potassium levels. 8. Restless leg syndrome: pramipexole 0.375mg PO TID. Please continue to monitor for restless legs. 9. Nausea: ondansetron 4mg PO Q8H PRN nausea. Please continue to monitor for nausea and PRN usage. Psychotropic Medications: *1. Depression: bupropion SR 150mg PO BID and duloxetine 90mg PO daily. Please consider GDR by 02/2020 if clinically appropriate. *2. Insomnia: doxepin 100mg PO QHS and melatonin 10mg PO QHS. Please consider GDR by 02/2020 if clinically appropriate. Unnecessary Medications: None Bowel Regimen: Miralax 17gm PO daily, senna/docusate 1T PO BID, bisacodyl 10mg PO daily PRN constipation. Please continue to monitor for constipation. Date of Note:: 09/08/19 - Provider Comments Provider responsibility: Provider responsible to enter orders to implement recommendations <Raulito Pemberton Chi - Last Filed: 09/08/19 16:44> Progress Note - Pharmacy Subjective: [] Objective: Allergies promethazine HCl [From Phenergan] Adverse Reaction (Verified 09/08/19 04:32) Vomiting BEE STING Allergy (Uncoded 09/08/19 04:32) Anaphylaxis Current Medications Generic Name Dose Route Start Last Admin Trade Name Freq PRN Reason Stop Dose Admin Acetaminophen 1,000 mg 09/07/19 14:08 09/08/19 15:37 Tylenol PO 1,000 mg Q6H PRN PRN Administration Pain Score 1-3/10 Amiodarone HCl 200 mg 09/09/19 06:00 Cordarone PO DAILY AARON Amiodarone HCl 200 mg 09/07/19 18:00 09/08/19 06:11 Cordarone PO 09/08/19 18:01 200 mg BID AARON Administration Atorvastatin Calcium 80 mg 09/07/19 22:00 09/07/19 21:16 Lipitor PO 80 mg QHS AARON Administration Bisacodyl 10 mg 09/08/19 08:00 Dulcolax PO DAILY PRN Constipation Bupropion HCl 150 mg 09/07/19 18:00 09/08/19 06:09 Wellbutrin Sr (150mg Tablets) PO 150 mg BID AARON Administration Clopidogrel Bisulfate 75 mg 09/08/19 06:00 09/08/19 06:23 Plavix PO 75 mg DAILY AARON Administration Diltiazem HCl 180 mg 09/08/19 06:00 09/08/19 06:09 Cardizem Cd PO 180 mg DAILY AARON Administration Doxepin HCl 100 mg 09/07/19 22:00 09/07/19 21:17 Doxepin Hcl PO 100 mg QHS AARON Administration Duloxetine HCl 30 mg 09/08/19 06:00 09/08/19 06:09 Cymbalta PO 30 mg DAILY AARON Administration Duloxetine HCl 60 mg 09/08/19 06:00 09/08/19 06:10 Cymbalta PO 60 mg DAILY [facility] Administration Ezetimibe 10 mg 09/08/19 06:00 09/08/19 06:09 Zetia PO 10 mg DAILY [facility] Administration Fenofibrate 48 mg 09/08/19 08:00 09/08/19 08:46 Tricor PO 48 mg DAILYCM [facility] Administration Furosemide 20 mg 09/08/19 06:00 09/08/19 06:09 Lasix PO 20 mg DAILY AARON Administration Melatonin 10 mg 09/07/19 22:00 09/07/19 21:16 Melatonin PO 10 mg QHS [facility] Administration Nutritional Formula 1 packet 09/07/19 17:00 09/08/19 08:46 [place] Flavor PO 1 packet BIDCM [facility] Administration Ondansetron HCl 4 mg 09/07/19 14:20 09/08/19 11:34 Zofran Odt PO 4 mg Q8H PRN PRN Administration NAUSEA Oxycodone HCl 5 mg 09/07/19 14:09 09/08/19 13:34 Oxyir PO 5 mg Q4H PRN PRN Administration Pain Score 6-10/10 Pantoprazole Sodium 40 mg 09/08/19 06:00 09/08/19 06:09 Protonix PO 40 mg DAILY [facility] Administration Polyethylene Glycol 17 gm 09/09/19 06:00 Miralax PO DAILY [facility] Potassium Chloride 20 meq 09/08/19 08:00 09/08/19 08:46 K-Dur PO 20 meq DAILYCM [facility] Administration Pramipexole Dihydrochloride 0.375 mg 09/07/19 22:00 09/08/19 13:35 Mirapex PO 0.375 mg TID [facility] Administration Senna/Docusate Sodium 1 tablet 09/08/19 18:00 Senokot-S, Heaven-Colace PO BID [facility] Sodium Chloride 10 - 40 ml 09/07/19 14:57 IV UD PRN SALINE FLUSH Tramadol HCl 50 mg 09/07/19 14:09 09/07/19 17:49 Ultram PO 50 mg Q6H PRN PRN Administration Pain Score 4-5/10 Tuberculin PPD 5 tu 09/15/19 10:00 Tubersol, Aplisol, Ppd ID 09/15/19 10:01 X1 ONE Problem List Debility (Acute) Abdominal pain (Acute) Encephalopathy (Acute) Visual hallucinations (Acute) Sepsis (Acute) Atrial fibrillation with rapid ventricular response (Acute) Hypokalemia (Acute) Diverticulitis (Chronic) GERD (gastroesophageal reflux disease) (Chronic) Coronary artery disease (Chronic) Restless legs syndrome (Chronic) Depression (Chronic) Anxiety (Chronic) Hyperlipidemia (Chronic) Irritable bowel syndrome with constipation (Chronic) Fecal impaction of colon (Acute) Vital Signs Temp Pulse Resp BP Pulse Ox 98.1 F 77 16 123/70 H 96 09/08/19 13:56 09/08/19 13:56 09/08/19 13:56 09/08/19 13:56 09/08/19 13:56 Oxygen Delivery Method Room Air Weight: 72.076 kg Body Mass Index (BMI) 26.4 Finger Stick Blood Glucose 86 Assessment/Plan: Psychotropic Medications: Unnecessary Medications: Bowel Regimen: - Provider Comments Provider responsibility: Provider responsible to enter orders to implement recommendations Provider Comments to Recommendations by Pharmacy: Agree
--- NOTE | 2019-09-08 14:21 | NURSING ---
wound photo: abdomen
[2019-09-08] MEDS: Senna/Docusate Sodium 1 Tablet PO (17:17)
--- NOTE | 2019-09-08 18:05 | RAD_ITS ---
STUDY: X-RAY - UNILATERAL RIBS ( LEFT ) WITH CHEST REASON FOR EXAM: Female, 64 years old. Left rib pain after fall last night. TECHNIQUE - RIBS: 4 view(s) of the ribs. TECHNIQUE - CHEST: Single PA view of the chest. COMPARISON: September 01, 2019 FINDINGS - RIBS: There is a healed fracture of the anterior left seventh rib. There is no evidence of acute rib fracture. FINDINGS - CHEST: The chest tube seen on the previous study is no longer present. The lungs are clear and expanded. There is no demonstrated pleural abnormality. Normal size heart. Normal mediastinum and rai. Normal visualized pulmonary arteries. Normal visualized aortic arch and descending thoracic aorta. There are diffuse degenerative changes of the visualized thoracic spine. There is degenerative osteoarthritis of the bilateral shoulders. There is no demonstrated abnormality of the visualized soft tissue structures of the upper abdomen. RAD/Ribs Uni Min 3V w/PA Chest IMPRESSION: RIBS: Healed seventh rib fracture. There is no evidence of acute fracture. CHEST: Degenerative changes, as described above. No demonstrated acute cardiopulmonary process. Electronically Signed: Silvano Cam DO at 18:22 EDT Tel [phone], Service support ,
[2019-09-08] MEDS: MELATONIN 10 MG TABLET PO (20:13)
[2019-09-08] MEDS: DOXEPIN HCL 50 MG CAPSULE 100 MG PO (20:13)
[2019-09-08] MEDS: Atorvastatin Calcium 80 MG Tablet PO (20:14)
[2019-09-09] MEDS: Pramipexole Di-HCl 0.125 MG Tablet 0.375 MG PO ×3 (04:41→20:21)
[2019-09-09] MEDS: Polyethylene Glycol 3350 17 GM PACKET PO (04:41)
[2019-09-09] MEDS: buPROPion (SR) 150 MG Tablet.SA PO ×2 (04:42→16:54)
[2019-09-09] MEDS: Furosemide 20 MG Tablet PO (04:42)
[2019-09-09] MEDS: Amiodarone 200 MG Tablet PO (04:42)
[2019-09-09] MEDS: dilTIAZem CD 180 MG Capsule PO (04:42)
[2019-09-09] MEDS: Senna/Docusate Sodium 1 Tablet PO (04:42)
[2019-09-09] MEDS: Pantoprazole Sodium 40 MG Tablet PO (04:42)
[2019-09-09] MEDS: DULoxetine Hcl 60 MG Capsule PO (04:42)
[2019-09-09] MEDS: DULoxetine Hcl 30 MG Capsule PO (04:42)
[2019-09-09] MEDS: Clopidogrel Bisulfate 75 MG Tablet PO (04:42)
[2019-09-09] MEDS: Ezetimibe 10 MG Tablet PO (04:43)
[2019-09-09 05:40] LABS: Absolute Lymphocyte Count 1.99 X10^3/uL (0.83-4.51); Absolute Neutrophil Count 5.8 X10^3/uL (2.0-7.7); Basophil# 0.05 X10^3/uL; Basophil% 0.5 % (0-1); Eosinophil# 0.18 X10^3/uL; Eosinophils% 1.9 % (0-5); Hematocrit 30.2 % (37-47); Hemoglobin 9.4 g/dL (12.0-15.0); Lymphocyte # 1.99 X10^3/ul (4.0); Lymphocyte % 21.3 % (19-41); Mean Corp Hgb Conc 31.1 g/dL (32-36); Mean Corpuscular Hgb 28.1 pg (27.0-32.0); Mean Corpuscular Volume 90.4 fL (81-99); Mean Platelet Vol. 9.6 fl (6.2-12.0); Monocyte# 1.18 X10^3/uL; Monocyte% 12.6 % (0-10); NRBC Flagged by Analyzer 0 % (0-5); Neutrophil # 5.77 X10^3/uL (2.7-7.7); Neutrophil % 61.9 % (47-70); Platelet Count 555 K/mm3 (150-450); RBC Distribution Width CV 17.5 % (11.6-14.6); RBC Distribution Width SD 57.7 fl (35.1-43.9); Red Blood Count 3.34 M/mm3 (4.2-5.4); White Blood Count 9.3 K/mm3 (4.4-11.0)
[2019-09-09 05:52] LABS: Anion Gap 6 (5-15); BUN 19 mg/dL (7-18); BUN/Creat Ratio 24.2 RATIO (10-20); Calcium,Total 8.5 mg/dL (8.5-10.1); Chloride 104 mmol/L (98-107); Creatinine, Serum 0.79 mg/dL (0.55-1.02); EST Glomerular Filtration Rate 78 mL/min (>60); Est Glom Filt Rate - Afr Amer 94 mL/min (>60); Estimated Creatinine Clearance 63.88 ml/min; Glucose 114 mg/dL (74-106); Potassium 4.2 mmol/L (3.5-5.1); Sodium Level 135 mmol/L (136-145)
[2019-09-09] MEDS: Fenofibrate 48 MG Tablet PO (08:33)
[2019-09-09] MEDS: oxyCODONE 5 MG Tablet PO ×3 (08:38→20:19)
--- NOTE | 2019-09-09 08:55 | NURSING ---
Pt is currently up in bathroom getting washed up with therapy. pt states she slept well last evening. wound VAC dressing intact. good seal noted at 125mmHg low continuous suction. colostomy appliance intact. pt denies needs at this time.
--- NOTE | 2019-09-09 13:53 | NURSING ---
this nurse in with pt and pt stated she felt sick to stomach. left room to get zofran and pt threw up lunch with aid in room. pt stated she felt better. rn aware.
[2019-09-09 13:55] VITALS: BP 144/73; PULSE 82; RESP 18; TEMP 36.5; O2SAT 96
--- NOTE | 2019-09-09 13:56 | PCA ---
Pt had a lg emesis when rounding with vitals, DIPPER CLOCK AND WATCH HANDS notified
--- NOTE | 2019-09-09 13:59 | NURSING ---
PT HAS HAD TROUBLE SWALLOWING PILLS TODAY. THIS NURSE ASKED PT IF SHE HAS HAD TROUBLE WITH FOOD ALSO AND PT STATED NO. REPORTED TO RN AND ORDER PUT IN FOR SPEECH THERAPY.
[2019-09-09] MEDS: Ondansetron ODT 4 MG Tablet PO (20:15)
[2019-09-09] MEDS: Acetaminophen 500 MG Tablet 1000 MG PO (20:19)
[2019-09-09] MEDS: DOXEPIN HCL 50 MG CAPSULE 100 MG PO (20:20)
[2019-09-09] MEDS: Atorvastatin Calcium 80 MG Tablet PO (20:20)
[2019-09-09] MEDS: MELATONIN 10 MG TABLET PO (20:21)
[2019-09-10] MEDS: DULoxetine Hcl 30 MG Capsule PO (05:42)
[2019-09-10] MEDS: DULoxetine Hcl 60 MG Capsule PO (05:42)
[2019-09-10] MEDS: Senna/Docusate Sodium 1 Tablet PO (05:42)
[2019-09-10] MEDS: Furosemide 20 MG Tablet PO (05:43)
[2019-09-10] MEDS: dilTIAZem CD 180 MG Capsule PO (05:43)
[2019-09-10] MEDS: Pramipexole Di-HCl 0.125 MG Tablet 0.375 MG PO ×3 (05:43→20:43)
[2019-09-10] MEDS: Clopidogrel Bisulfate 75 MG Tablet PO (05:43)
[2019-09-10] MEDS: Amiodarone 200 MG Tablet PO (05:43)
[2019-09-10] MEDS: Pantoprazole Sodium 40 MG Tablet PO (05:44)
[2019-09-10] MEDS: Polyethylene Glycol 3350 17 GM PACKET PO (05:44)
[2019-09-10] MEDS: Ezetimibe 10 MG Tablet PO (05:44)
[2019-09-10] MEDS: buPROPion (SR) 150 MG Tablet.SA PO ×2 (05:44→17:23)
[2019-09-10 05:45] VITALS: BP 133/71; PULSE 84
--- NOTE | 2019-09-10 09:01 | NURSING ---
Colostomy appliance removed. there was a small amount of unformed flores stool noted in the appliance. stoma sits slightly above skin level. peristomal skin is intact. cleansed with soap and water. pat dry. applied a new 2 piece flat Waterflow appliance with a small amount of stoma paste. pt tolerated well. next VAC change Friday09/13/19. Pt states she had some nausea and vomiting yesterday. none this am. pt denies fever and chills. will monitor.
[2019-09-10] MEDS: oxyCODONE 5 MG Tablet PO ×3 (09:37→21:33)
[2019-09-10] MEDS: Fenofibrate 48 MG Tablet PO (09:37)
[2019-09-10 10:00] VITALS: PULSE 80; RESP 16; O2SAT 96
--- NOTE | 2019-09-10 11:17 | NURSING ---
Per attraction attendant, pt can progress to [address] cardiac tomorrow (09/10) if tolerating transitional meals today
[2019-09-10] MEDS: Acetaminophen 500 MG Tablet 1000 MG PO ×2 (12:59→20:43)
[2019-09-10 13:36] VITALS: BP 127/73; PULSE 75; RESP 18; TEMP 37.2; O2SAT 96
[2019-09-10] MEDS: Ondansetron ODT 4 MG Tablet PO (14:44)
--- NOTE | 2019-09-10 16:19 | CASEMGMT ---
Social Work Met with pt to provide emotional support d/t isolation precautions. Provided picture/card written from community members. Pt also enjoyed coloring with gel pens, which she has from home, word searches- provided more. Spoke with pt about home life, if there are any stressors or concerns. pt expressed loss of a few months ago and enjoys doing activities for coping. Inquired about any alcohol, tobacco or drug use. Pt denies alcohol and drugs, but used tobacco prior. Provided card to write back to community member. Jacqueline Khan, social work internal carver Shannon Mike, MACHINE ASSEMBLER FOR PULLER OVER ANIMAL REHABILITATOR
[2019-09-10] MEDS: DOXEPIN HCL 50 MG CAPSULE 100 MG PO (20:43)
[2019-09-10] MEDS: MELATONIN 10 MG TABLET PO (20:43)
[2019-09-10] MEDS: Atorvastatin Calcium 80 MG Tablet PO (20:43)
[2019-09-11] MEDS: Polyethylene Glycol 3350 17 GM PACKET PO (06:13)
[2019-09-11] MEDS: Clopidogrel Bisulfate 75 MG Tablet PO (06:14)
[2019-09-11] MEDS: oxyCODONE 5 MG Tablet PO ×4 (06:14→20:19)
[2019-09-11] MEDS: Acetaminophen 500 MG Tablet 1000 MG PO ×2 (06:14→15:04)
[2019-09-11] MEDS: DULoxetine Hcl 30 MG Capsule PO (06:15)
[2019-09-11] MEDS: DULoxetine Hcl 60 MG Capsule PO (06:15)
[2019-09-11] MEDS: Pantoprazole Sodium 40 MG Tablet PO (06:15)
[2019-09-11] MEDS: Senna/Docusate Sodium 1 Tablet PO ×2 (06:15→18:02)
[2019-09-11] MEDS: Furosemide 20 MG Tablet PO (06:15)
[2019-09-11] MEDS: buPROPion (SR) 150 MG Tablet.SA PO ×2 (06:16→18:02)
[2019-09-11] MEDS: Pramipexole Di-HCl 0.125 MG Tablet 0.375 MG PO ×3 (06:16→21:03)
[2019-09-11] MEDS: Amiodarone 200 MG Tablet PO (06:16)
[2019-09-11] MEDS: Ezetimibe 10 MG Tablet PO (06:16)
[2019-09-11] MEDS: dilTIAZem CD 180 MG Capsule PO (06:16)
[2019-09-11] MEDS: Fenofibrate 48 MG Tablet PO (10:26)
[2019-09-11] MEDS: Ondansetron ODT 4 MG Tablet PO ×2 (12:42→21:02)
[2019-09-11 14:18] VITALS: BP 154/83; PULSE 83; RESP 14; TEMP 35.9; O2SAT 97
[2019-09-11 20:25] VITALS: RESP 18
[2019-09-11] MEDS: MELATONIN 10 MG TABLET PO (21:03)
[2019-09-11] MEDS: DOXEPIN HCL 50 MG CAPSULE 100 MG PO (21:03)
[2019-09-11] MEDS: Atorvastatin Calcium 80 MG Tablet PO (21:03)
[2019-09-12 05:39] VITALS: BP 106/70; PULSE 70; RESP 16; O2SAT 97
[2019-09-12] MEDS: DULoxetine Hcl 60 MG Capsule PO (05:42)
[2019-09-12] MEDS: Polyethylene Glycol 3350 17 GM PACKET PO (05:42)
[2019-09-12] MEDS: Furosemide 20 MG Tablet PO (05:43)
[2019-09-12] MEDS: DULoxetine Hcl 30 MG Capsule PO (05:43)
[2019-09-12] MEDS: Pramipexole Di-HCl 0.125 MG Tablet 0.375 MG PO ×3 (05:43→22:10)
[2019-09-12] MEDS: Clopidogrel Bisulfate 75 MG Tablet PO (05:43)
[2019-09-12] MEDS: Senna/Docusate Sodium 1 Tablet PO ×2 (05:43→18:05)
[2019-09-12] MEDS: Pantoprazole Sodium 40 MG Tablet PO (05:43)
[2019-09-12] MEDS: dilTIAZem CD 180 MG Capsule PO (05:43)
[2019-09-12] MEDS: buPROPion (SR) 150 MG Tablet.SA PO ×2 (05:43→18:05)
[2019-09-12] MEDS: Amiodarone 200 MG Tablet PO (05:43)
[2019-09-12] MEDS: Ezetimibe 10 MG Tablet PO (05:43)
[2019-09-12] MEDS: oxyCODONE 5 MG Tablet PO ×4 (05:52→22:10)
[2019-09-12] MEDS: Fenofibrate 48 MG Tablet PO (08:08)
[2019-09-12] MEDS: Ondansetron ODT 4 MG Tablet PO ×2 (08:16→16:39)
[2019-09-12] MEDS: Acetaminophen 500 MG Tablet 1000 MG PO (08:16)
[2019-09-12 10:00] VITALS: PULSE 82; RESP 18; O2SAT 97
[2019-09-12] MEDS: Sucralfate 1 GM Tablet PO (10:40)
[2019-09-12 13:09] VITALS: BP 120/73; PULSE 77; RESP 16; TEMP 36.3; O2SAT 97
--- NOTE | 2019-09-12 19:01 | NURSING ---
colostomy noted to be leaking into wound vac. wound vac and colostomy appliance changed but upon leak check, the wound vac indicated air leak. unable to find leak as foam vacuumed down and could not identify drape leak. large drape placed across entire site with no improvement. oncoming RNs aware and will assess.
[2019-09-12] MEDS: DOXEPIN HCL 50 MG CAPSULE 100 MG PO (22:09)
[2019-09-12] MEDS: Atorvastatin Calcium 80 MG Tablet PO (22:10)
[2019-09-12] MEDS: MELATONIN 10 MG TABLET PO (22:10)
--- NOTE | 2019-09-12 23:36 | NURSING ---
Wound Vac alarming leak. Attempted to locate leak and unable. Removed drape dressings. Replaced foam, adaptic to suture sites covered with gauze and drape. Wound Vac continues to Alarm Leak. Giacomo COE from [place] came to help this nurse. Still unable to find leak. After several attempts, removed drape and foam and applied wet-to-damp dressing covered with ABD's. Will leave message for Wound Nurse, Leticia COE.
[2019-09-13 05:19] LABS: Absolute Neutrophil Count 6.3 X10^3/uL (2.0-7.7); Basophil# 0.06 X10^3/uL; Basophil% 0.6 % (0-1); Eosinophil# 0.15 X10^3/uL; Eosinophils% 1.5 % (0-5); Hematocrit 33.1 % (37-47); Hemoglobin 10.5 g/dL (12.0-15.0); Lymphocyte % 22.9 % (19-41); Mean Corp Hgb Conc 31.7 g/dL (32-36); Mean Corpuscular Hgb 28.3 pg (27.0-32.0); Mean Corpuscular Volume 89.2 fL (81-99); Mean Platelet Vol. 9.8 fl (6.2-12.0); Monocyte# 1.13 X10^3/uL; Monocyte% 11.3 % (0-10); NRBC Flagged by Analyzer 0 % (0-5); Neutrophil % 62.7 % (47-70); Platelet Count 537 K/mm3 (150-450); RBC Distribution Width SD 54.9 fl (35.1-43.9); Red Blood Count 3.71 M/mm3 (4.2-5.4)
[2019-09-13 05:35] LABS: Anion Gap 7 (5-15); BUN 23 mg/dL (7-18); BUN/Creat Ratio 25.2 RATIO (10-20); Calcium,Total 9.2 mg/dL (8.5-10.1); Chloride 99 mmol/L (98-107); Creatinine, Serum 0.91 mg/dL (0.55-1.02); EST Glomerular Filtration Rate 66 mL/min (>60); Est Glom Filt Rate - Afr Amer 80 mL/min (>60); Estimated Creatinine Clearance 55.46 ml/min; Glucose 112 mg/dL (74-106); Potassium 4.1 mmol/L (3.5-5.1); Sodium Level 133 mmol/L (136-145)
[2019-09-13] MEDS: Amiodarone 200 MG Tablet PO (05:39)
[2019-09-13] MEDS: DULoxetine Hcl 60 MG Capsule PO (05:39)
[2019-09-13] MEDS: DULoxetine Hcl 30 MG Capsule PO (05:39)
[2019-09-13] MEDS: Furosemide 20 MG Tablet PO (05:39)
[2019-09-13] MEDS: buPROPion (SR) 150 MG Tablet.SA PO ×2 (05:39→17:03)
[2019-09-13] MEDS: Pramipexole Di-HCl 0.125 MG Tablet 0.375 MG PO ×3 (05:39→21:10)
[2019-09-13] MEDS: dilTIAZem CD 180 MG Capsule PO (05:39)
[2019-09-13] MEDS: Clopidogrel Bisulfate 75 MG Tablet PO (05:39)
[2019-09-13] MEDS: Ezetimibe 10 MG Tablet PO (05:40)
[2019-09-13] MEDS: Pantoprazole Sodium 40 MG Tablet PO (05:40)
[2019-09-13] MEDS: oxyCODONE 5 MG Tablet PO ×3 (05:45→18:42)
[2019-09-13 05:52] VITALS: BP 134/74; PULSE 72
--- NOTE | 2019-09-13 06:01 | NURSING ---
Patient had colostomy leak, wound vac removed b/c unable to get it to seal. The wound was dressed wet to dry, new colostomy appliance was placed by Josi Ansari LPN. This morning stool leaked out of the colostomy and was inside the open wound and around sutures. Area was cleansed with NS, dried, adaptic and abd's applied. New colostomy applied. Stool is completely liquid. Held miralax and senokot.
[2019-09-13] MEDS: Fenofibrate 48 MG Tablet PO (07:46)
--- NOTE | 2019-09-13 08:52 | NURSING ---
Removed colostomy appliance to assess stoma since patient had numerous leaks this weekend. stoma sits just slightly above the skin level. peristomal skin is intact. stoma is beefy red. there was a large amount of stoma paste used on the pervious ostomy appliance. attempted to get as much off the peristomal skin as possible. there is still some residual. placed a 2 piece convex [place] appliance with a small amount of stoma paste. applied VAC drape to all outer edges of the flange to assist in keeping appliance in place. pt tolerated well. see wound/stoma photo. will call and discuss with Dr Hutchins's office.
--- NOTE | 2019-09-13 10:39 | NURSING ---
Pt's chair alarm was alarming and this nurse immediately went to pts room to assess her. Upon entering room this nurse observed pt walking towards her bed, holding the pad to her chair alarm squeezing it between her hands trying to silence it. When asked what she was doing pt stated I want to get to bed and I can walk good enough to do it by myself. This nurse educated pt on importance of using her call light and asking for help. Pt verbalized understanding and was assisted into bed and given her call light.
--- NOTE | 2019-09-13 11:43 | NURSING ---
wound/stoma photo: abdomen
[2019-09-13] MEDS: Ondansetron ODT 4 MG Tablet PO (13:05)
[2019-09-13 15:37] VITALS: BP 139/86; PULSE 86; RESP 20; TEMP 36.8; O2SAT 94
--- NOTE | 2019-09-13 17:12 | NURSING ---
this nurse started teaching pt how to burp her ostomy bag.
[2019-09-13] MEDS: MELATONIN 10 MG TABLET PO (21:11)
[2019-09-13] MEDS: Atorvastatin Calcium 80 MG Tablet PO (21:11)
[2019-09-13] MEDS: DOXEPIN HCL 50 MG CAPSULE 100 MG PO (21:51)
[2019-09-14 05:35] VITALS: BP 128/63; PULSE 74
[2019-09-14] MEDS: Clopidogrel Bisulfate 75 MG Tablet PO (05:37)
[2019-09-14] MEDS: Pramipexole Di-HCl 0.125 MG Tablet 0.375 MG PO ×3 (05:37→20:29)
[2019-09-14] MEDS: Furosemide 20 MG Tablet PO (05:38)
[2019-09-14] MEDS: Senna/Docusate Sodium 1 Tablet PO ×2 (05:38→16:52)
[2019-09-14] MEDS: DULoxetine Hcl 30 MG Capsule PO (05:38)
[2019-09-14] MEDS: Amiodarone 200 MG Tablet PO (05:38)
[2019-09-14] MEDS: Ezetimibe 10 MG Tablet PO (05:38)
[2019-09-14] MEDS: buPROPion (SR) 150 MG Tablet.SA PO ×2 (05:39→16:52)
[2019-09-14] MEDS: dilTIAZem CD 180 MG Capsule PO (05:39)
[2019-09-14] MEDS: DULoxetine Hcl 60 MG Capsule PO ×2 (05:41→17:35)
[2019-09-14] MEDS: Pantoprazole Sodium 40 MG Tablet PO (05:41)
[2019-09-14] MEDS: Polyethylene Glycol 3350 17 GM PACKET PO (05:41)
--- NOTE | 2019-09-14 07:24 | NURSING ---
pt removed colostomy on her own and replaced with new.
[2019-09-14] MEDS: Fenofibrate 48 MG Tablet PO (08:36)
[2019-09-14] MEDS: oxyCODONE 5 MG Tablet PO ×3 (08:36→17:35)
[2019-09-14 11:18] VITALS: PULSE 72; RESP 18; O2SAT 99
[2019-09-14] MEDS: Acetaminophen 500 MG Tablet 1000 MG PO (11:26)
[2019-09-14] MEDS: Glucerna Shake 120 ML LIQUID PO ×3 (12:29→20:30)
[2019-09-14 13:44] VITALS: BP 136/91; PULSE 94; RESP 14; TEMP 36.2
[2019-09-14] MEDS: Ondansetron ODT 4 MG Tablet PO (16:56)
[2019-09-14] MEDS: DOXEPIN HCL 50 MG CAPSULE 100 MG PO (20:30)
[2019-09-14] MEDS: MELATONIN 10 MG TABLET PO (20:30)
[2019-09-14] MEDS: Atorvastatin Calcium 80 MG Tablet PO (20:30)
[2019-09-15 05:15] VITALS: BP 133/75; PULSE 75; RESP 18; TEMP 36.5; O2SAT 98
[2019-09-15] MEDS: DULoxetine Hcl 60 MG Capsule PO ×2 (05:17→17:33)
[2019-09-15] MEDS: Furosemide 20 MG Tablet PO (05:17)
[2019-09-15] MEDS: Clopidogrel Bisulfate 75 MG Tablet PO (05:17)
[2019-09-15] MEDS: Senna/Docusate Sodium 1 Tablet PO ×2 (05:18→17:33)
[2019-09-15] MEDS: dilTIAZem CD 180 MG Capsule PO (05:18)
[2019-09-15] MEDS: buPROPion (SR) 150 MG Tablet.SA PO ×2 (05:18→17:37)
[2019-09-15] MEDS: Pantoprazole Sodium 40 MG Tablet PO (05:18)
[2019-09-15] MEDS: Amiodarone 200 MG Tablet PO (05:18)
[2019-09-15] MEDS: Pramipexole Di-HCl 0.125 MG Tablet 0.375 MG PO ×3 (05:18→20:30)
[2019-09-15] MEDS: Ezetimibe 10 MG Tablet PO (05:18)
[2019-09-15] MEDS: Glucerna Shake 120 ML LIQUID PO ×2 (05:24→11:10)
[2019-09-15] MEDS: Polyethylene Glycol 3350 17 GM PACKET PO (05:24)
[2019-09-15] MEDS: Fenofibrate 48 MG Tablet PO (07:46)
[2019-09-15] MEDS: oxyCODONE 5 MG Tablet PO ×3 (07:52→20:28)
[2019-09-15] MEDS: Tuberculin,Purif.prot.deriv. 50 TU/ML Vial 5 ML ID (09:57)
--- NOTE | 2019-09-15 11:43 | CASEMGMT ---
Social Work IDT met with patient and son via conference call for care plan meeting. Discussed patient's progress in therapy. Pt is SBA for bed mobility, CGA for transfers, walking 140 ft with FWW at CGA, unsteady with turning, completed 5 stairs with 2 HR at CGA. Pt is SBA for grooming, set up for UE bathing, CGA for LE bathing, SBA for toileting. Pt declined full shower the previous day, but completed sponge bath. St working with pt on speech and cognition. Pt is on a soft/thin diet with supervision with meals, small bites/sips, no straws. Pt not consistently following instructions or recalling the instructions. Pt scored /30 on MOCHA. Recommending to f/u with neuropsychologist at [facility]. Pt having difficulty with memory, sequencing, planning, problem solving, reasoning and very poor insight to current limitations. Pt has very poor safety awareness and is a high fall risk. Recommending 24/ to return home. Pt has a new wound vac and colostomy. Spoke with wound nurse who is anticipating DC wound vac in about a week. However, pt will DC home with colostomy and pt is struggling with those instructions. Nursing reporting pt more agitated and confused at night. Pt enjoying coloring, reading, watching TV and starting pen pal. Pt on a 1600 calorie cardiac diet with 25-49% intake, ordered alma delia and med pass. Pt and son report pt being more anxious. Physician increased pt's medication. Provided son with rehabilitation aide agencies and [employer] resources. Explained Medicare benefit. Pt agreeable to about another week of therapy and nursing care. Will continue to assist with DC plans. Shannon Mike, PENNIE EXAMINING OFFICER
[2019-09-15 14:11] VITALS: BP 144/83; PULSE 86; RESP 18; TEMP 37.4; O2SAT 98
--- NOTE | 2019-09-15 16:07 | CASEMGMT ---
Social Work Reviewed and agreed with social work internet marketing intern documentation on this date. Shannon Mike, METAL ROOFER COMPUTER FORWARDING SYSTEM MARKUP CLERK
[2019-09-15] MEDS: DOXEPIN HCL 50 MG CAPSULE 100 MG PO (20:28)
[2019-09-15] MEDS: MELATONIN 10 MG TABLET PO (20:29)
[2019-09-15] MEDS: Atorvastatin Calcium 80 MG Tablet PO (20:29)
[2019-09-16] MEDS: Pramipexole Di-HCl 0.125 MG Tablet 0.375 MG PO ×3 (05:40→21:16)
[2019-09-16] MEDS: Clopidogrel Bisulfate 75 MG Tablet PO (05:41)
[2019-09-16] MEDS: dilTIAZem CD 180 MG Capsule PO (05:41)
[2019-09-16] MEDS: buPROPion (SR) 150 MG Tablet.SA PO ×2 (05:41→17:17)
[2019-09-16] MEDS: Furosemide 20 MG Tablet PO (05:41)
[2019-09-16] MEDS: Pantoprazole Sodium 40 MG Tablet PO (05:41)
[2019-09-16] MEDS: Amiodarone 200 MG Tablet PO (05:41)
[2019-09-16] MEDS: Ezetimibe 10 MG Tablet PO (05:41)
[2019-09-16] MEDS: DULoxetine Hcl 60 MG Capsule PO ×2 (05:44→17:15)
[2019-09-16] MEDS: oxyCODONE 5 MG Tablet PO ×4 (05:57→21:19)
--- NOTE | 2019-09-16 08:03 | NURSING ---
Nursing states that maintenance technician 2nd shift RN did have to reinforce the dressing this am. Nursing thinks pt may be messing with the dressing. EMPLOYEE ADVISER states that patient was attempting to pull off the ostomy appliance as well. Pt aware this nurse plans to change the ostomy appliance and wound VAC dressing tomorrow. If pt pulls dressing off, will have nursing apply NS wet to dry dressing. will communicate with RYAN Lai and maybe the incision can be closed prior to discharge home next week.
[2019-09-16] MEDS: Fenofibrate 48 MG Tablet PO (08:16)
[2019-09-16 08:18] VITALS: PULSE 90; RESP 16; O2SAT 97
--- NOTE | 2019-09-16 08:56 | NURSING ---
THIS NURSE CALLED TO PT ROOM. PT THROWING UP LIGHT YELLOW/GREENISH LIQUID. CRACKERS AND PRN ZOFRAN GIVEN. RN AWARE.
[2019-09-16] MEDS: Ondansetron ODT 4 MG Tablet PO ×2 (09:05→17:14)
[2019-09-16 13:39] VITALS: BP 114/71; PULSE 84; RESP 16; TEMP 36.2; O2SAT 95
--- NOTE | 2019-09-16 19:06 | NURSING ---
THIS NURSE HEARD PT WOUND VAC BEEPING AND WENT TO ROOM AND FOUND PT HAD DISCONNECTED WOUND VAC TUBING. RECONNECTED TUBING AND VAC THEN HAD A LEAK. RN CAME TO ROOM AND WE TRIED TO STOP LEAK WITH NO SUCCESS. PER CAROLIN STAFFORD/WOUND NURSE EARLIER IN DAY STATED WE COULD DO A WET TO DRY DRESSING IF PROBLEM WITH LEAKAGE.
[2019-09-16] MEDS: MELATONIN 10 MG TABLET PO (21:16)
[2019-09-16] MEDS: DOXEPIN HCL 50 MG CAPSULE 100 MG PO (21:16)
[2019-09-16] MEDS: Atorvastatin Calcium 80 MG Tablet PO (21:16)
[2019-09-17] MEDS: oxyCODONE 5 MG Tablet PO ×3 (05:23→21:56)
[2019-09-17] MEDS: Furosemide 20 MG Tablet PO (05:24)
[2019-09-17] MEDS: Pantoprazole Sodium 40 MG Tablet PO (05:24)
[2019-09-17] MEDS: Ezetimibe 10 MG Tablet PO (05:24)
[2019-09-17] MEDS: Clopidogrel Bisulfate 75 MG Tablet PO (05:24)
[2019-09-17] MEDS: Amiodarone 200 MG Tablet PO (05:24)
[2019-09-17] MEDS: dilTIAZem CD 180 MG Capsule PO (05:24)
[2019-09-17] MEDS: buPROPion (SR) 150 MG Tablet.SA PO ×2 (05:24→17:17)
[2019-09-17] MEDS: Pramipexole Di-HCl 0.125 MG Tablet 0.375 MG PO ×3 (05:24→21:57)
[2019-09-17] MEDS: DULoxetine Hcl 60 MG Capsule PO ×2 (05:25→17:17)
[2019-09-17] MEDS: Fenofibrate 48 MG Tablet PO (08:23)
--- NOTE | 2019-09-17 08:28 | NURSING ---
kyaw wound nurse here and changed drsg to abdomen and colostomy.
--- NOTE | 2019-09-17 08:35 | NURSING ---
Pt has been pulling at the wound VAC dressing and tubing so the wound VAC was removed last PM. will leave wound VAC off and do NS wet to dry dressings BID. will discuss with Dr Hutchins or RYAN Lai. incision may possibly be able to be closed prior to discharge next week. wound is healing well. colostomy appliance changed with patient. Pt has been very forgetful and needs quite a bit of reminding and encouragement. pt will have home health as well at home, but may need a family member as well who will be able to change the ostomy appliance if patient cannot remember. pt tolerated ostomy change and dressing change well.
--- NOTE | 2019-09-17 10:03 | MDS.RN ---
Information for the mds was obtained from review of the clinical record, interview of resident, staff, and direct observation of resident's care.
--- NOTE | 2019-09-17 11:38 | NURSING ---
dr anderson notified of positive 20mm tuberculin test,, new order to consult ID, get chest xray & TB gold lab. paged dr Quinn, awaiting return call.
--- NOTE | 2019-09-17 11:58 | MDS.RN ---
Information for the mds was obtained from review of the clinical record, interview of resident, staff, and direct observation of resident's care.
[2019-09-17 13:08] VITALS: BP 108/61; PULSE 78; RESP 15; TEMP 36.6; O2SAT 96
--- NOTE | 2019-09-17 14:15 | RAD_ITS ---
STUDY: X-RAY CHEST REASON FOR EXAM: Female, 64 years old. FALL -- POSITIVE TUBERCULIN TEST TECHNIQUE: PA and lateral views of the chest. COMPARISON: Comparison is made with prior examination dated September 08, 2019. FINDINGS: Scattered calcified granulomas. There is no demonstrated pleural abnormality. Normal size heart. Normal mediastinum and rai. Normal visualized pulmonary arteries. There is atherosclerotic calcification of the aortic arch with tortuosity. There is demineralization of the osseous structures. Metallic anchor is seen overlying the left humeral head suggestive of a prior rotator cuff surgery. There is no demonstrated abnormality of the visualized soft tissue structures of the upper abdomen. RAD/Chest PA and Lateral IMPRESSION: No acute abnormality is seen. Electronically Signed: Delta Medina, at 14:29 EDT , Service support ,
--- NOTE | 2019-09-17 18:48 | NURSING ---
pt really unsteady on feet when up with walker and staff assist. pt unaware of her surroundings, gets lost when trying to find her room.
[2019-09-17] MEDS: DOXEPIN HCL 50 MG CAPSULE 100 MG PO (21:56)
[2019-09-17] MEDS: MELATONIN 10 MG TABLET PO (21:57)
[2019-09-17] MEDS: Atorvastatin Calcium 80 MG Tablet PO (21:57)
[2019-09-18 06:57] VITALS: BP 132/70; PULSE 73
[2019-09-18] MEDS: Ezetimibe 10 MG Tablet PO (06:58)
[2019-09-18] MEDS: Furosemide 20 MG Tablet PO (06:58)
[2019-09-18] MEDS: Amiodarone 200 MG Tablet PO (06:58)
[2019-09-18] MEDS: DULoxetine Hcl 60 MG Capsule PO ×2 (06:58→17:58)
[2019-09-18] MEDS: Clopidogrel Bisulfate 75 MG Tablet PO (06:58)
[2019-09-18] MEDS: Pramipexole Di-HCl 0.125 MG Tablet 0.375 MG PO ×3 (06:58→21:22)
[2019-09-18] MEDS: buPROPion (SR) 150 MG Tablet.SA PO ×2 (06:58→17:58)
[2019-09-18] MEDS: Pantoprazole Sodium 40 MG Tablet PO (06:58)
[2019-09-18] MEDS: dilTIAZem CD 180 MG Capsule PO (06:59)
[2019-09-18] MEDS: Fenofibrate 48 MG Tablet PO (09:23)
[2019-09-18] MEDS: oxyCODONE 5 MG Tablet PO ×3 (09:29→21:21)
[2019-09-18] MEDS: Ondansetron ODT 4 MG Tablet PO (10:31)
[2019-09-18 13:48] VITALS: BP 101/66; PULSE 90; RESP 16; TEMP 36.2; O2SAT 98
[2019-09-18] MEDS: Acetaminophen 500 MG Tablet 1000 MG PO (18:01)
--- NOTE | 2019-09-18 21:20 | NURSING ---
Pt noted up walking in halls by herself, no alarm going off, She states she turned it off because she thought she heard her son talking in the [place]. Explained to pt that she always needs to call before getting up because she fell before. Pt states her ribs are hurting requesting her night time meds and pain meds. Will medicate if available. Sangeeta AYALA made aware.
[2019-09-18] MEDS: MELATONIN 10 MG TABLET PO (21:23)
[2019-09-18] MEDS: DOXEPIN HCL 50 MG CAPSULE 100 MG PO (21:23)
[2019-09-18] MEDS: Atorvastatin Calcium 80 MG Tablet PO (21:24)
--- NOTE | 2019-09-19 04:40 | NURSING ---
pt took off dressing at belly button area. refuses to leave on saying its pulling and hurts to have on. nurse educated on the importance of keeping the dressing on to protect the wound and prevent infection. dressing is currently still off. will continue to monitor. pt resting with call light in reach.
[2019-09-19] MEDS: dilTIAZem CD 180 MG Capsule PO (04:46)
[2019-09-19] MEDS: Amiodarone 200 MG Tablet PO (04:47)
[2019-09-19] MEDS: DULoxetine Hcl 60 MG Capsule PO ×2 (04:47→17:25)
[2019-09-19] MEDS: Furosemide 20 MG Tablet PO (04:48)
[2019-09-19] MEDS: Pramipexole Di-HCl 0.125 MG Tablet 0.375 MG PO ×3 (04:48→20:02)
[2019-09-19] MEDS: Clopidogrel Bisulfate 75 MG Tablet PO (04:50)
[2019-09-19] MEDS: Pantoprazole Sodium 40 MG Tablet PO (04:50)
[2019-09-19] MEDS: Senna/Docusate Sodium 1 Tablet PO (04:51)
[2019-09-19] MEDS: buPROPion (SR) 150 MG Tablet.SA PO ×2 (04:51→17:25)
[2019-09-19] MEDS: Ezetimibe 10 MG Tablet PO (04:52)
[2019-09-19] MEDS: oxyCODONE 5 MG Tablet PO ×3 (04:56→18:14)
[2019-09-19] MEDS: Fenofibrate 48 MG Tablet PO (08:31)
--- NOTE | 2019-09-19 10:14 | NURSING ---
Per WORK DISTRIBUTOR pt was going through belongings from [facility] and she found an insulin pen. Pt stated omg get rid of that, that is that girls weed pen. WORK DISTRIBUTOR redirected her and told her it was an insulin pen. Pt seems to have increased confusion.
[2019-09-19] MEDS: Acetaminophen 500 MG Tablet 1000 MG PO ×2 (10:53→18:15)
[2019-09-19 13:46] VITALS: BP 108/61; PULSE 80; RESP 16; TEMP 36.6; O2SAT 98
--- NOTE | 2019-09-19 15:03 | NURSING ---
This nurse entered patient's room after hearing personal alarm sounding. Found pt standing at recliner, leaning over it turning off alarm. Educated pt on the dangers of falling and the importance of always using call light for assistance. Call light and personal items within reach. Will continue to monitor.
[2019-09-19] MEDS: DOXEPIN HCL 50 MG CAPSULE 100 MG PO (20:00)
[2019-09-19] MEDS: MELATONIN 10 MG TABLET PO (20:01)
[2019-09-19] MEDS: Atorvastatin Calcium 80 MG Tablet PO (20:01)
[2019-09-20] MEDS: oxyCODONE 5 MG Tablet PO (03:39)
[2019-09-20] MEDS: Acetaminophen 500 MG Tablet 1000 MG PO ×2 (05:41→17:47)
[2019-09-20] MEDS: Ezetimibe 10 MG Tablet PO (05:44)
[2019-09-20] MEDS: Pantoprazole Sodium 40 MG Tablet PO (05:44)
[2019-09-20] MEDS: dilTIAZem CD 180 MG Capsule PO (05:44)
[2019-09-20] MEDS: Clopidogrel Bisulfate 75 MG Tablet PO (05:44)
[2019-09-20] MEDS: Furosemide 20 MG Tablet PO (05:44)
[2019-09-20] MEDS: Pramipexole Di-HCl 0.125 MG Tablet 0.375 MG PO ×3 (05:45→20:08)
[2019-09-20] MEDS: DULoxetine Hcl 60 MG Capsule PO ×2 (05:45→17:43)
[2019-09-20] MEDS: buPROPion (SR) 150 MG Tablet.SA PO ×2 (05:45→17:43)
[2019-09-20] MEDS: Amiodarone 200 MG Tablet PO (05:45)
[2019-09-20] MEDS: Senna/Docusate Sodium 1 Tablet PO (05:46)
--- NOTE | 2019-09-20 07:50 | PCA ---
Passed tray to pt and she took 1 bite of food and began getting sick (vomitting) asked pt if her stomach was upset she stated that it was due to the nurse giving her medication on an empty stomach, offered breakfast to patient and she declined
[2019-09-20] MEDS: Ondansetron ODT 4 MG Tablet PO (08:07)
[2019-09-20] MEDS: Fenofibrate 48 MG Tablet PO (08:08)
--- NOTE | 2019-09-20 08:09 | NURSING ---
Dr Hutchins called in stating that he did not want pt on oxyir, he had placed that in his discharge for pt after her surgery. ok to use tylenol. Dr anderson updated and d/c'd oxyir
--- NOTE | 2019-09-20 09:00 | NURSING ---
Sutures removed per Dr order. pt tolerated well. midline incision is healing well. the area near the umbilicus is the only portion of the incision. not yet approximated. measures approx 0.8cm in width. tissues granular. serosanguineous drainage. no odor noted. some mild redness. cleansed incision with soap and water. pt dry. applied dermabond to all areas except umbilical area. place 2 steri strips. applied NS wet to dry dressing to umbilical area and covered with dry dressing. secured with tape. pt tolerated well. see wound photo.
--- NOTE | 2019-09-20 09:15 | NURSING ---
wound photo: abdomen
[2019-09-20 09:51] VITALS: PULSE 84; RESP 14; O2SAT 99
--- NOTE | 2019-09-20 14:04 | CASEMGMT ---
Social Work Met with pt to discuss DC plans. Pt choosing to DC 09/21 home with son. Gave pt resources on HHC, pt requesting [facility] for [facility]HC-PT/OT/ST/SN/SW-referral made. Pt also requesting transport w/c, pt requires transport w/c as she is unable to ambulate with a can or walker for long periods of time-faxed script. Plan: DC home with son, 09/21, [facility]-PT/OT/ST/SN/SW, transport w/c Jacqueline Khan, social work international affairs vice president Shannon Mike, BRAND AMBASSADOR PROMOTIONAL MODEL SAP SENIOR DEVELOPER
--- NOTE | 2019-09-20 14:19 | CASEMGMT ---
Social Work Reviewed and agreed with social work healthcare administration internship documentation on this date. Shannon Mike, COPY CHASER CUSTOM MARINE CANVAS FABRICATOR
[2019-09-20 16:00] VITALS: BP 132/56; PULSE 87; RESP 16; TEMP 36.7; O2SAT 100
--- NOTE | 2019-09-20 19:02 | NURSING ---
PT NONCOMPLIANT AND CONTINUES TO GET UP AND TURN ALARM OFF TO WALK AROUND IN ROOM AND COMES OUT IN BOB. THIS NURSE HAS EXPLAINED ALL DAY TO PT ABOUT USING THE CALL LIGHT AND NOT GETTING UP ON OWN. PT STATES SHE UNDER STANDS BUT CONTINUES TO GET UP ON OWN. RN AWARE
--- NOTE | 2019-09-20 19:48 | DCINST_ITS ---
- Discharge Diagnoses Current Active Problems: Current Active and Chronic Problems Debility (Acute) Abdominal pain (Acute) Encephalopathy (Acute) Visual hallucinations (Acute) Sepsis (Acute) Atrial fibrillation with rapid ventricular response (Acute) Hypokalemia (Acute) Diverticulitis (Chronic) GERD (gastroesophageal reflux disease) (Chronic) Coronary artery disease (Chronic) Restless legs syndrome (Chronic) Depression (Chronic) Anxiety (Chronic) Hyperlipidemia (Chronic) Irritable bowel syndrome with constipation (Chronic) Fecal impaction of colon (Acute) You will use the following diet at home:: No restrictions, Regular Your food should be the consistency of: Regular Your liquids should be the consistency of: Regular/Thin Discharge Activity: Return to Normal Activity, May Shower, Use Walker Weight Bearing Status: Weight bearing as tolerated Call your doctor if you observe: Fever of 101 or Higher, Inability to urinate, Inability to have a bowel movement, Shortness of breath, Chest pain, Uncontrolled pain Allergies/Adverse Reactions: Allergies promethazine HCl [From Phenergan] Adverse Reaction (Verified 09/08/19 04:32) Vomiting tuberculin, purified protein deriva Adverse Reaction (Verified 09/17/19 16:20) Swelling BEE STING Allergy (Uncoded 09/08/19 04:32) Anaphylaxis Medications to take at Discharge Pantoprazole Sodium [Protonix] 40 mg PO DAILY 03/21/17 Bupropion HCl [Bupropion HCl Sr] 150 mg PO BID 01/27/19 Clopidogrel Bisulfate [Clopidogrel] 75 mg PO DAILY 01/27/19 Ezetimibe 10 mg PO DAILY 01/27/19 Fenofibrate 48 mg PO DAILY 01/27/19 Doxepin HCl 100 mg PO QHS 08/24/19 Amiodarone HCl [Cordarone] 200 mg PO BID tab 09/07/19 Acetaminophen [Pain Relief] 1,000 mg PO Q6H PRN PRN 09/08/19 Melatonin 10 mg PO QHS 09/08/19 Pramipexole Di-HCl [Pramipexole ER] 0.375 mg PO TID 09/08/19 Acetaminophen [Tylenol] 1,000 mg PO Q6H PRN PRN tab 09/20/19 Amiodarone HCl [Cordarone] 200 mg PO DAILY #30 tab 09/20/19 Atorvastatin Calcium [Lipitor] 80 mg PO QHS #30 tab 09/20/19 Diltiazem CD [Cardizem CD] 180 mg PO DAILY #30 cap 09/20/19 Duloxetine Hcl [Cymbalta] 60 mg PO BID #60 cap 09/20/19 Furosemide [Lasix] 20 mg PO DAILY #30 tab 09/20/19 Melatonin 10 mg PO QHS #0 tab 09/20/19 Nutritional Supplement [Ever[place] - ORANGE FLAVOR] 1 packet PO BIDCM #60 packet 09/20/19 Ondansetron [Zofran Odt] 4 mg PO Q8H PRN PRN #30 tab 09/20/19 Potassium Chloride [K-Dur] 20 meq PO DAILYCM #30 tab 09/20/19 Pramipexole Di-HCl [Mirapex] 0.375 mg PO TID #90 tab 09/20/19 Sucralfate [Carafate] 1 tab PO TID PRN #90 tab 09/20/19 The following prescriptions were given: Sucralfate [Carafate] 1 tab PO TID PRN #90 tab PRN Reason: stomachache Transmission Status: Pending to [facility] Diltiazem CD [Cardizem CD] 180 mg PO DAILY #30 cap Transmission Status: Pending to [facility] Amiodarone HCl [Cordarone] 200 mg PO DAILY #30 tab Transmission Status: Pending to [facility] 074 Duloxetine Hcl [Cymbalta] 60 mg PO BID #60 cap Transmission Status: Pending to [facility]74 Nutritional Supplement [Ever[place] - ORANGE FLAVOR] 1 packet PO BIDCM #60 packet Transmission Status: Pending to [facility] 074 Potassium Chloride [K-Dur] 20 meq PO DAILYCM #30 tab Transmission Status: Pending to [facility] 074 Furosemide [Lasix] 20 mg PO DAILY #30 tab Transmission Status: Pending to [facility] 074 Atorvastatin Calcium [Lipitor] 80 mg PO QHS #30 tab Transmission Status: Pending to [facility] 074 Pramipexole Di-HCl [Mirapex] 0.375 mg PO TID #90 tab Transmission Status: Pending to [facility]74 Ondansetron [Zofran Odt] 4 mg PO Q8H PRN PRN #30 tab PRN Reason: Nausea Transmission Status: Pending to [facility] Primary Care Physician: Magan Garcia MD [Primary Care Provider] - Please follow up with your Primary Care Physician in: 1 week. Test Results: Test results from this visit will be discussed in further detail at your follow- up appointment, if applicable. Please Follow Up With: Jerrell Hutchins MD When: 2 weeks. Please Follow Up With: Jamal Lizarraga NP-C When: 2 weeks. Proposed Discharge Date: 09/22/19
--- NOTE | 2019-09-20 19:48 | NURSING ---
This nurse was walking past this patient room and notice she was self transferring in her room. This nurse walked in and asked the patient what are you doing? She stated I know what I doing and the next thing I know the patient started going toward the floor and this nurse broke the fall and got the patient to the bed. Nurse explained the importance of using her call light when she need anything. Reoriented the call light and placed within reach. Rn made aware.
--- NOTE | 2019-09-20 19:51 | DS.PCM_ITS ---
Discharge Date and Diagnosis - Problem List Patient Problems: Active and Suspected Problems Debility (Acute) Abdominal pain (Acute) Encephalopathy (Acute) Visual hallucinations (Acute) Sepsis (Acute) Atrial fibrillation with rapid ventricular response (Acute) Hypokalemia (Acute) Fecal impaction of colon (Acute) Date of Admission: 09/07/19 Date of Discharge: 09/22/19 - Primary Discharge Diagnosis Active and Suspected Problems Debility (Acute) Abdominal pain (Acute) Encephalopathy (Acute) Visual hallucinations (Acute) Sepsis (Acute) Atrial fibrillation with rapid ventricular response (Acute) Hypokalemia (Acute) Fecal impaction of colon (Acute) - Secondary Discharge Diagnosis Chronic Problems Diverticulitis (Chronic) GERD (gastroesophageal reflux disease) (Chronic) Coronary artery disease (Chronic) Restless legs syndrome (Chronic) Depression (Chronic) Anxiety (Chronic) Hyperlipidemia (Chronic) Irritable bowel syndrome with constipation (Chronic) History of cardioversion (Chronic 09/02/19) Tobacco dependence syndrome (Chronic) History of Clostridium difficile infection (Chronic) Hospital Course and Treatment Imaging Results: 09/11/19 00:18 Diet: Cardiac: Calorie-Controlled Is pt able to select menu?: Yes Diet Comments: no straws,direct supervision How many daily calories?: 1600 calorie Clinical Impression(s) from Imaging Studies KUB X-Ray 09/07/19 19:15 IMPRESSION: No major interval change when compared to prior study. Again seen are distended large and small bowel loops in right abdomen. Electronically Signed: Silvano Cam DO at 19:36 EDT Tel [phone], Service support , Ribs w/Chest X-Ray 09/08/19 18:05 IMPRESSION: RIBS: Healed seventh rib fracture. There is no evidence of acute fracture. CHEST: Degenerative changes, as described above. No demonstrated acute cardiopulmonary process. Electronically Signed: Silvano Cam DO at 18:22 EDT Tel [phone], Service support , Chest X-Ray 09/17/19 14:15 IMPRESSION: No acute abnormality is seen. Electronically Signed: Delta Medina, at 14:29 EDT , Service support , Consultations 09/08/19 06:39 Consult: Onc/Wound/inspector multifocal lens Routine Comment: Reason for Consult:: VAC, new colostomy Operations: None, - - Exploratory laparotomies Procedures: None Summary of Care Provided: The patient is a 64 year old Female with below past medical history hospitalized for abdominal pain, encephalopathy due to sepsis, sigmoid colitis, large bowel obstruction requiring left colectomy, left lower quadrant colostomy 08/26/[address] Hutchins, complicated by atrial fibrillation with rapid ventricular response treated with cardioversion, hypokalemia, admitted to TCU with debility, here for rehabilitation, strengthening, prior to discharge home with family. Discharge home with son, [facility] PT/OT/ST/SN/SW, transport wheelchair. Patient Problems: Active and Suspected Problems Debility (Acute) Abdominal pain (Acute) Encephalopathy (Acute) Visual hallucinations (Acute) Sepsis (Acute) Atrial fibrillation with rapid ventricular response (Acute) Hypokalemia (Acute) Fecal impaction of colon (Acute) - Physical Exam Vitals/I&O's: Vital Signs Temp Pulse Resp BP Pulse Ox 98.0 F 87 16 132/56 H 100 09/20/19 16:00 09/20/19 16:00 09/20/19 16:00 09/20/19 16:00 09/20/19 16:00 Oxygen Flow Rate (L/min) 99 Oxygen Delivery Method Room Air Weight: 72.076 kg Body Mass Index (BMI) 26.4 Finger Stick Blood Glucose 86 Intake and Output for Last 24 Hours 09/18/19 09/19/19 09/20/19 23:59 23:59 23:59 Intake Total 840 / 840 360 / 360 680 / 680 Output Total 350 / 350 200 / 200 25 / 25 Balance 490 / 490 160 / 160 655 / 655 Current Medications Acetaminophen (Tylenol) 1,000 mg PO Q6H PRN PRN PRN Reason: Pain Score 1-310 Last Admin: 09/20/19 17:47 Dose: 1,000 mg Documented by: Amiodarone HCl (Cordarone) 200 mg PO DAILY [facility] Last Admin: 09/20/19 05:45 Dose: 200 mg Documented by: Atorvastatin Calcium (Lipitor) 80 mg PO QHS [facility] Last Admin: 09/19/19 20:01 Dose: 80 mg Documented by: Bisacodyl (Dulcolax) 10 mg PO DAILY PRN PRN Reason: Constipation Bupropion HCl (Wellbutrin Sr (150mg Tablets)) 150 mg PO BID [facility] Last Admin: 09/20/19 17:43 Dose: 150 mg Documented by: Clopidogrel Bisulfate (Plavix) 75 mg PO DAILY [facility] Last Admin: 09/20/19 05:44 Dose: 75 mg Documented by: Diltiazem HCl (Cardizem Cd) 180 mg PO DAILY [facility] Last Admin: 09/20/19 05:44 Dose: 180 mg Documented by: Doxepin HCl (Doxepin Hcl) 100 mg PO QHS [facility] Last Admin: 09/19/19 20:00 Dose: 100 mg Documented by: Duloxetine HCl (Cymbalta) 60 mg PO BID [facility] Last Admin: 09/20/19 17:43 Dose: 60 mg Documented by: Ezetimibe (Zetia) 10 mg PO DAILY [facility] Last Admin: 09/20/19 05:44 Dose: 10 mg Documented by: [facility] Last Admin: 09/20/19 08:08 Dose: 48 mg Documented by: Furosemide (Lasix) 20 mg PO DAILY [facility] Last Admin: 09/20/19 05:44 Dose: 20 mg Documented by: Lidocaine HCl (Xylocaine Viscous) 1 ml PO Q1H PRN PRN Reason: apthous ulcer Last Admin: 09/20/19 15:57 Dose: 1 ml Documented by: Melatonin (Melatonin) 10 mg PO QHS [facility] Last Admin: 09/19/19 20:01 Dose: 10 mg Documented by: Nutritional Formula (Ever[place] - [place] Flavor) 1 packet PO BIDCM [facility] Last Admin: 09/20/19 17:43 Dose: 1 packet Documented by: Ondansetron HCl (Zofran Odt) 4 mg PO Q8H PRN PRN PRN Reason: NAUSEA Last Admin: 09/20/19 08:07 Dose: 4 mg Documented by: Pantoprazole Sodium (Protonix) 40 mg PO DAILY [facility] Last Admin: 09/20/19 05:44 Dose: 40 mg Documented by: Polyethylene Glycol (Miralax) 17 gm PO DAILY [facility] Last Admin: 09/20/19 05:46 Dose: Not Given Documented by: Potassium Chloride (K-Dur) 20 meq PO DAILYCM [facility] Last Admin: 09/20/19 08:08 Dose: 20 meq Documented by: Pramipexole Dihydrochloride (Mirapex) 0.375 mg PO TID [facility] Last Admin: 09/20/19 13:00 Dose: 0.375 mg Documented by: Sodium Chloride () 10 - 40 ml IV UD PRN PRN Reason: SALINE FLUSH Sucralfate (Carafate) 1 gm PO 0700,1100,1600 PRN PRN Reason: STOMACH ACHE Last Admin: 09/12/19 10:40 Dose: 1 gm Documented by: Discharge Diet: No Restrictions Discharge Activity: Return to Normal Activity, May Shower, Use Walker Weight Bearing Status: Weight bearing as tolerated Call your doctor if you observe: Fever of 101 or Higher, Inability to urinate, Inability to have a bowel movement, Shortness of breath, Chest pain, Uncontrolled pain Home Medications: Medications to take at Discharge Pantoprazole Sodium [Protonix] 40 mg PO DAILY 03/21/17 Bupropion HCl [Bupropion HCl Sr] 150 mg PO BID 01/27/19 Clopidogrel Bisulfate [Clopidogrel] 75 mg PO DAILY 01/27/19 Ezetimibe 10 mg PO DAILY 01/27/19 Fenofibrate 48 mg PO DAILY 01/27/19 Doxepin HCl 100 mg PO QHS 08/24/19 Amiodarone HCl [Cordarone] 200 mg PO BID tab 09/07/19 Acetaminophen [Pain Relief] 1,000 mg PO Q6H PRN PRN 09/08/19 Melatonin 10 mg PO QHS 09/08/19 Pramipexole Di-HCl [Pramipexole ER] 0.375 mg PO TID 09/08/19 Acetaminophen [Tylenol] 1,000 mg PO Q6H PRN PRN tab 09/20/19 Amiodarone HCl [Cordarone] 200 mg PO DAILY #30 tab 09/20/19 Atorvastatin Calcium [Lipitor] 80 mg PO QHS #30 tab 09/20/19 Diltiazem CD [Cardizem CD] 180 mg PO DAILY #30 cap 09/20/19 Duloxetine Hcl [Cymbalta] 60 mg PO BID #60 cap 09/20/19 Furosemide [Lasix] 20 mg PO DAILY #30 tab 09/20/19 Melatonin 10 mg PO QHS #0 tab 09/20/19 Nutritional Supplement [Ever[place] - ORANGE FLAVOR] 1 packet PO BIDCM #60 packet 09/20/19 Ondansetron [Zofran Odt] 4 mg PO Q8H PRN PRN #30 tab 09/20/19 Potassium Chloride [K-Dur] 20 meq PO DAILYCM #30 tab 09/20/19 Pramipexole Di-HCl [Mirapex] 0.375 mg PO TID #90 tab 09/20/19 Sucralfate [Carafate] 1 tab PO TID PRN #90 tab 09/20/19 Following Prescrptions Were Given to Patient: Sucralfate [Carafate] 1 tab PO TID PRN #90 tab PRN Reason: stomachache Transmission Status: Pending to [facility]74 Diltiazem CD [Cardizem CD] 180 mg PO DAILY #30 cap Transmission Status: Pending to [facility]74 Amiodarone HCl [Cordarone] 200 mg PO DAILY #30 tab Transmission Status: Pending to [facility] 074 Duloxetine Hcl [Cymbalta] 60 mg PO BID #60 cap Transmission Status: Pending to [facility] 074 Nutritional Supplement [Ever[place] - ORANGE FLAVOR] 1 packet PO BIDCM #60 packet Transmission Status: Pending to [facility] 074 Potassium Chloride [K-Dur] 20 meq PO DAILYCM #30 tab Transmission Status: Pending to [facility]74 Furosemide [Lasix] 20 mg PO DAILY #30 tab Transmission Status: Pending to [facility] 074 Atorvastatin Calcium [Lipitor] 80 mg PO QHS #30 tab Transmission Status: Pending to [facility] 074 Pramipexole Di-HCl [Mirapex] 0.375 mg PO TID #90 tab Transmission Status: Pending to [facility]74 Ondansetron [Zofran Odt] 4 mg PO Q8H PRN PRN #30 tab PRN Reason: Nausea Transmission Status: Pending to [facility] Primary Care Physician: Magan Garcia MD [Primary Care Provider] - Please follow up with your Primary Care Physician in: 1 week. Please Follow Up With: Jerrell Hutchins MD When: 2 weeks. Please Follow Up With: Jamal Lizarraga NP-C When: 2 weeks. Disposition: Home with Home Health Minutes spent on discharge:: 35 Patient Condition:: Stable Medical Necessity - Tobacco Use Smoking Status: Never smoker Tobacco Use: Cigarettes Meaningful Use Info Meaningful Use Diagnoses (Choose all that apply): None applicable
[2019-09-20] MEDS: DOXEPIN HCL 50 MG CAPSULE 100 MG PO (20:08)
[2019-09-20] MEDS: Atorvastatin Calcium 80 MG Tablet PO (20:08)
[2019-09-20] MEDS: MELATONIN 10 MG TABLET PO (20:09)
[2019-09-21] MEDS: Acetaminophen 500 MG Tablet 1000 MG PO ×2 (05:00→16:13)
[2019-09-21] MEDS: Ezetimibe 10 MG Tablet PO (05:01)
[2019-09-21] MEDS: DULoxetine Hcl 60 MG Capsule PO ×2 (05:01→17:35)
[2019-09-21] MEDS: Furosemide 20 MG Tablet PO (05:01)
[2019-09-21] MEDS: Pramipexole Di-HCl 0.125 MG Tablet 0.375 MG PO ×3 (05:01→19:51)
[2019-09-21] MEDS: dilTIAZem CD 180 MG Capsule PO (05:01)
[2019-09-21] MEDS: Clopidogrel Bisulfate 75 MG Tablet PO (05:01)
[2019-09-21] MEDS: buPROPion (SR) 150 MG Tablet.SA PO ×2 (05:02→17:35)
[2019-09-21] MEDS: Amiodarone 200 MG Tablet PO (05:02)
[2019-09-21] MEDS: Pantoprazole Sodium 40 MG Tablet PO (05:02)
[2019-09-21] MEDS: Fenofibrate 48 MG Tablet PO (07:58)
--- NOTE | 2019-09-21 08:40 | NURSING ---
OxyIR had been dc'd yesterday. pt is still quite confused this morning again. nursing states that patient continually gets up on her own even after being reminded numerous times that she is unsteady and needs to call for assistance. Pt had pulled ostomy pouch off of the flange this am and there is stool all over the flange and on dressing. educated patient AGAIN how she needs to empty the appliance. pt should not be taking the pouch off of the flange. pt states understanding. Pt has been increasingly forgetful. concerned that patient forgets how to care for ostomy appliance and dressing change even though this nurse has reviewed care with pt numerous times. Pt is scheduled for discharge tomorrow with son. unsure if pt's son will be home with patient at all times. there is concern for falls at home.
--- NOTE | 2019-09-21 12:51 | PCA ---
Pt rang call light to use the restroom, went into assist pt to the restroom afterwards we were walking back to her recliner and she asked what she needed to do about not clocking out last night after she left, i told pt that she was at the hospital and not working she is here as a patient, she laughed and said no i was working why are all of you acting like i am crazy! redirected pt back to her recliner and she asked about social work job titles i told her i would call her and have her come back to see her and exited the room with pt in chair and chair alarm on, call light within reach
--- NOTE | 2019-09-21 13:01 | NURSING ---
Was called by staff about some blood noted in ostomy appliance. had noticed a small amount of bloody drainage noted this am as well when changing the ostomy appliance. did not notice any trauma to the stoma, but patient had pulled the pouch off and was snapped back on by staff. will monitor. did notify RYAN Lai as well. pt still quite confused off and on and patient is insisting she is still going home tomorrow. states she will leave AMA if she needs to. will reassess patient again in am. nursing aware to monitor as well.
--- NOTE | 2019-09-21 13:28 | NURSING ---
lab just in to draw blood. pt sitting up in chair, denies further needs
[2019-09-21 13:32] LABS: Absolute Lymphocyte Count 2.06 X10^3/uL (0.83-4.51); Absolute Neutrophil Count 5.7 X10^3/uL (2.0-7.7); Basophil# 0.02 X10^3/uL; Basophil% 0.2 % (0-1); Eosinophil# 0.07 X10^3/uL; Eosinophils% 0.8 % (0-5); Hematocrit 33.6 % (37-47); Hemoglobin 10.8 g/dL (12.0-15.0); Lymphocyte # 2.06 X10^3/ul (4.0); Lymphocyte % 24.3 % (19-41); Mean Corp Hgb Conc 32.1 g/dL (32-36); Mean Corpuscular Hgb 28.1 pg (27.0-32.0); Mean Corpuscular Volume 87.3 fL (81-99); Mean Platelet Vol. 9.9 fl (6.2-12.0); Monocyte# 0.57 X10^3/uL; Monocyte% 6.7 % (0-10); NRBC Flagged by Analyzer 0 % (0-5); Neutrophil % 67.5 % (47-70); Platelet Count 246 K/mm3 (150-450); RBC Distribution Width CV 16.4 % (11.6-14.6); RBC Distribution Width SD 52.1 fl (35.1-43.9); Red Blood Count 3.85 M/mm3 (4.2-5.4); White Blood Count 8.5 K/mm3 (4.4-11.0)
[2019-09-21 13:45] LABS: Anion Gap 8 (5-15); BUN 28 mg/dL (7-18); BUN/Creat Ratio 24.6 RATIO (10-20); Chloride 99 mmol/L (98-107); Creatinine, Serum 1.14 mg/dL (0.55-1.02); EST Glomerular Filtration Rate 51 mL/min (>60); Est Glom Filt Rate - Afr Amer 62 mL/min (>60); Estimated Creatinine Clearance 44.27 ml/min; Glucose 171 mg/dL (74-106); Sodium Level 132 mmol/L (136-145)
--- NOTE | 2019-09-21 14:05 | CASEMGMT ---
Social Work Notified by nursing that pt was having vivid delusions and hallucinations. Spoke with pt. Pt conversed about discharging home on the following day, her was going to pick her up and drive her to the [facility] agency building to get more therapy. Pt inquired when she was able to go back to work. 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 SW explained [facility] would come to the pt's home. Inquired who would pick up worker pt - pt stated her son, Sonny. Inquired if any one would at home with her at DC - pt stated her son, Sonny. Pt stated she knows she sees her even though he in April. Inquired further about those visions and dreams pt explained to having. Pt stated even when was alive and sick, he as sleeping next to her in bed, but she would get up in the middle of the night, roam the house looking for her . Pt states she will act out dreams after as well. Pt explained she doesn't know why she does this, but once someone brings her back to reality she is fine and knows she was delusional. Discussed pt's safety at home - pt feels she will be safe at home, son will be there to assist, sister can assist, and she feels comfortable managing colostomy. Pt explained she is looking forward to neuropsych appt to figure out if she's crazy. Provided verbal support, validation of feelings and supportive listening. Notified physician of above and if DC is still safe for 09/21. Physician requested SW to speak with son to get baseline prior to hospitalization. Spoke with pt's son and inquired about pt's baseline. Son explained pt had some delusions, hallucinations and vivid dreams involving sleep walking and talking, prior to hospitalization. Son stated pt just called son and asked if was with him - son redirected pt and pt responded I know he's , I don't know why I keep doing that. Son is aware pt has these delusions during TCU stay, but states the last week or so pt has appeared to be worse and is unsure what that is contributed to. Explained physician is involved and will continue to monitor. Discussed pt's issue with colostomy on this date, which physician is also monitoring and will determine if pt is safe to DC 09/21. Son understood and appreciative of care and assistance. Will continue to follow. Shannon Mike, CORRECTION OFFICER PENITENTIARY TRAFFIC CONTROL OPERATOR
[2019-09-21 14:19] VITALS: BP 142/83; PULSE 93; RESP 14; TEMP 36.6; O2SAT 98
--- NOTE | 2019-09-21 14:22 | NURSING ---
PT CONTINUES TO BE NONCOMPLIANT ON USING CALL ORTIZ AND TURNS ALARM OFF. PT HAS BEEN OUT OF ROOM WALKING AROUND WITH AND WITH OUT WALKER. EDUCATED PT ON USE OF CALL ORTIZ. PT STATED SHE UNDER STANDS BUT CONTINUES TO GET UP. EXPLAINED TO PT IF SHE FALLS AND BRAKES SOME THING SHE WILL NOT BE GOING HOME. PT STATED YA I KNOW. REPORTED TO RN.
[2019-09-21 14:53] LABS: Bacteria 0 SEEN /hpf (None Seen); Mucous, Urine 0 SEEN /hpf (<or=2+); Red Blood Cells-Urine 0 SEEN /hpf (0-5); White Blood Cells 0 SEEN /hpf (0-5)
[2019-09-21 14:55] LABS: Color, Urine Yellow (Yellow); Glucose, Dipstick Normal (Normal); Ketone-Dipstick 5 mg/dl (Negative); Leukocyte Esterase-Dipstick 25 /ul (Negative); Nitrite-Dipstick Negative (Negative); Occult Blood-Urine Negative /ul (Negative); Protein-Dipstick Negative (Negative); Urine Bilirubin Dipstick Negative (Negative); Urine Clarity Sl. Cloudy (Clear); Urine Urobilinogen Normal (Normal)
[2019-09-21 15:05] LABS: Squamous Epithelial Cells - UA 0-5 SEEN /hpf (5-10)
[2019-09-21 15:11] LABS: Amphetamine Urine VISTA NEGATIVE (<1000 ng/mL); Barbiturate Urine VISTA NEGATIVE (< 200 ng/mL); Benzodiazepine Urine VISTA NEGATIVE (< 200 ng/mL); Cocaine Urine VISTA NEGATIVE (< 300 ng/mL); Ecstacy Urine VISTA POSITIVE (< 500 ng/mL); Methadone Urine VISTA NEGATIVE (< 300 ng/mL); PCP Urine VISTA NEGATIVE (< 25 ng/mL); THC Urine VISTA NEGATIVE (< 50 ng/mL); Vista UDS pH Range 6
--- NOTE | 2019-09-21 17:15 | CASEMGMT ---
Social Work Spoke with physician and pt. Physician states pt is safe to DC home as long as son will be present to assist. Spoke with son to assure 13/01 care and that pt is able to DC 09/21. Confirmed with [facility] date of open. [facility] stated faxes have not been working and to resend clinicals, but they can open pt 09/22. Refaxed clinicals. Plan: DC home with son 13/01 care 09/21 with [facility] PT/OT/SN/SW. Shannon Mike, BUDGET ANALYST POLICY SPECIALIST
--- NOTE | 2019-09-21 19:46 | NURSING ---
Patient ambulating out of room. Patient reminded to ask for assistance. Patient continued to walk away, one hand on walker, can of pop in other. Stopped patient again. Patient continued to keep walking. Patient then asked where [place] was. Patient reminded is no longer with us. Patient confused at this time and becoming agitated with staff.
[2019-09-21] MEDS: DOXEPIN HCL 50 MG CAPSULE 100 MG PO (19:51)
[2019-09-21] MEDS: MELATONIN 10 MG TABLET PO (19:53)
[2019-09-21] MEDS: Atorvastatin Calcium 80 MG Tablet PO (19:53)
[2019-09-22] MEDS: dilTIAZem CD 180 MG Capsule PO (05:59)
[2019-09-22] MEDS: Ezetimibe 10 MG Tablet PO (05:59)
[2019-09-22] MEDS: Acetaminophen 500 MG Tablet 1000 MG PO (05:59)
[2019-09-22] MEDS: Amiodarone 200 MG Tablet PO (05:59)
[2019-09-22] MEDS: Pantoprazole Sodium 40 MG Tablet PO (06:00)
[2019-09-22] MEDS: Pramipexole Di-HCl 0.125 MG Tablet 0.375 MG PO (06:00)
[2019-09-22] MEDS: Clopidogrel Bisulfate 75 MG Tablet PO (06:00)
[2019-09-22] MEDS: Polyethylene Glycol 3350 17 GM PACKET PO (06:00)
[2019-09-22] MEDS: buPROPion (SR) 150 MG Tablet.SA PO (06:00)
[2019-09-22] MEDS: Furosemide 20 MG Tablet PO (06:00)
[2019-09-22] MEDS: DULoxetine Hcl 60 MG Capsule PO (06:00)
[2019-09-22 06:08] VITALS: BP 125/74; PULSE 96
[2019-09-22] MEDS: Fenofibrate 48 MG Tablet PO (07:54)
[2019-09-22 10:02] VITALS: BP 127/53; PULSE 80; RESP 18; TEMP 36.3; O2SAT 95
--- NOTE | 2019-09-22 14:08 | CASEMGMT ---
Social Work Reviewed and agreed with social work internal medicine hospitalist documentation on this date. Shannon Mike, NET TECHNICAL ARCHITECT PRODUCT SAFETY EXPERT
--- NOTE | 2019-09-23 14:54 | CASEMGMT ---
Social Work Reviewed and agreed with social work photography intern documentation on this date. Shannon Mike, MANAGER ICU MECHANICAL LEAD
== END 2019-09-22 10:30 | disposition home health service (06) | DRG 950 ==
PROVIDERS: Admitting Provider Family Medicine Geriatric Medicine; PCP Family Medicine; Referring Provider Family Medicine Geriatric Medicine; Visit Provider Family Medicine Geriatric Medicine
DX: Z48.815 Encounter for surgical aftercare following surgery on the digestive system (principal); Z93.3 Colostomy status; K21.9 Gastro-esophageal reflux disease without esophagitis; I25.10 Atherosclerotic heart disease of native coronary artery without angina pectoris; E78.5 Hyperlipidemia, unspecified; G25.81 Restless legs syndrome; F32.9 Major depressive disorder, single episode, unspecified; F41.9 Anxiety disorder, unspecified; K58.1 Irritable bowel syndrome with constipation; F17.210 Nicotine dependence, cigarettes, uncomplicated; I48.91 Unspecified atrial fibrillation; E87.6 Hypokalemia
CPT/HCPCS: 36415; 71046; 71101; 74018; 80048; 80307; 81001; 85025; 87086; 92507; 92523; 92526; 92610; 97110; 97116; 97162; 97166; 97530; 97535; 97802; 99406; J7040

== ENCOUNTER 2019-09-08 04:31 | Emergency (ER) | payer MEDICARE, OTHER, SELFPAY ==
[2019-09-07 14:06] VITALS: BMI 26.4
[2019-09-08 04:33] VITALS: BP 127/67; PULSE 66; RESP 14; TEMP 36.8; O2SAT 96; BMI 29.2
--- NOTE | 2019-09-08 04:39 | CT_ITS ---
STUDY: CT BRAIN WITHOUT CONTRAST REASON FOR EXAM: Female, 64 years old. Fall with head injury. Left-sided facial pain. RADIATION DOSAGE (If Supplied By Facility): CTDIvol = ( 44.99 ) mGy, DLP = ( 829.85 ) mGycm TECHNIQUE: Transaxial CT imaging of the brain was performed without administration of intravenous contrast material. Individualized dose optimization techniques were used for this CT. COMPARISON: August 24, 2019. FINDINGS: Left frontal scalp hematoma. Normal calvarium. Normal size ventricles and extra-axial spaces for the patient''s age. There are areas of decreased attenuation within the white matter tracts of the supratentorial brain, consistent with microvascular disease changes. Normal basal ganglia and thalami. Normal brainstem. Normal cerebellum. There is no intracranial hemorrhage. There are no findings of an acute ischemic infarction. Normal visualized paranasal sinuses. CT/Brain/Head without Contrast IMPRESSION: No acute intracranial abnormality. Left frontal scalp hematoma. Electronically Signed: Rod Rosas MD at 5:38 EDT , Service support ,
--- NOTE | 2019-09-08 04:40 | ED.VIS.GEN ---
History of Present Illness Chief Complaint: Fall Informant: Patient Narrative: Patient presents with mechanical fall. She got up to use the restroom this evening and lost her balance and fell. She struck the left portion of her moravian on the ground. She did not get knocked out. She is in the transitional care unit rehabbing abdominal surgery. Patient stated she does have chronic issues with balance. She is on Plavix. She is also receiving Lovenox injections 40 U daily in the TCU. Denies any significant headache. She has a mild headache. No home treatment. Came in for further evaluation. - Past Medical History (1) Abdominal pain Status: Acute (2) Atrial fibrillation with rapid ventricular response Status: Acute (3) Debility Status: Acute (4) Encephalopathy Status: Acute (5) Fecal impaction of colon Status: Acute (6) Hypokalemia Status: Acute (7) Sepsis Status: Acute (8) Visual hallucinations Status: Acute (9) Anxiety Status: Chronic (10) Coronary artery disease Status: Chronic (11) Depression Status: Chronic (12) Diverticulitis Status: Chronic (13) GERD (gastroesophageal reflux disease) Status: Chronic (14) Hyperlipidemia Status: Chronic (15) Irritable bowel syndrome with constipation Status: Chronic (16) Restless legs syndrome Status: Chronic (17) Altered mental status Status: Acute (18) Atrial fibrillation Status: Acute (19) Colitis Status: Acute (20) Constipation Status: Acute (21) Failure of outpatient treatment Status: Acute (22) Large bowel obstruction Status: Acute (23) Sigmoid diverticulitis Status: Acute (24) History of Clostridium difficile infection Status: Chronic (25) History of cardioversion Status: Chronic (26) Tobacco dependence syndrome Status: Chronic Past Medical History - Allergies and Home Meds Allergies/Adverse Reactions: Allergies promethazine HCl [From Phenergan] Adverse Reaction (Verified 09/08/19 04:32) Vomiting BEE STING Allergy (Uncoded 09/08/19 04:32) Anaphylaxis Primary Care Physician: Magan Garcia MD [Primary Care Provider] - Prior records reviewed: Yes Past Medical History: - - See problem list Surgical History: angioplasty - cardiac stent., appendectomy, cholecystectomy, hysterectomy Smoking Status: Current every day smoker Alcohol: None Drugs: None - Family History Maternal Family History: Reports: Diabetes, Heart Disease Paternal Family History: Reports: Cancer - His father from pancreatic cancer at the age of 51. Review of Systems General: Denies: Chills, Fever, Sweats Eyes: Denies: Visual changes - bilaterally, Diplopia ENT: Denies: Rhinorrhea, Sore throat Cardiovascular: Denies: Chest pain, Palpitations Respiratory: Denies: Dyspnea, Cough, Dyspnea on exertion Gastrointestinal: Denies: Abdominal pain, Nausea, Vomiting, Diarrhea, Melena, Hematochezia Genitourinary: Denies: Dysuria, Hematuria, Frequency Musculoskeletal: Denies: Back pain, Extremity Pain Skin: Denies: Rash, Wounds Neurological: Reports: Headache. Denies: Weakness, Numbness Physical Exam Vital Signs/Narrative: Vital Signs Temp Pulse Resp BP Pulse Ox 09/08/19 04:33 98.2 F 66 14 127/67 H 96 General: Well nourished, Well developed, No Acute Distress Head: Trauma - Left moravian shows a hematoma contusion measuring 3 cm x 3 cm. No bony step-off or deformity.. Negative for: Normocephalic, Atraumatic Eyes: Perrl, EOMI ENT: Moist mucous membranes, No rhinorrhea Neck: Supple, Nontender Cardiovascular: Regular rate, Regular rhythm, No murmurs Respiratory: No distress, CTA bilaterally, Chest nontender Abdomen: Soft, Nondistended, Normal bowel sounds, - - Postoperative surgical wound with a wound VAC on it. No evidence of infection. Colostomy putting out normal. Negative for: Nontender Back: Nontender, Normal Inspection Extremities: Nontender, No edema Skin: Normal color, No rash Neurological: Alert, Oriented x3, Cranial nerves II-XII grossly intact, Normal Strength, Normal Sensation Psychological: Normal affect, Normal Mood Diagnostic/Tx/Re-eval - Medical Decision Making Patient resting comfortably. CT head obtained. CT head shows nothing acute. No intracranial hemorrhage. Scalp hematoma noted. Patient reassured. She will be discharged back to the TCU ED Disposition - Plan for ED Patient: Disposition: Home or Assisted Living Diagnosis: Hematoma of scalp, Fall Instructions: FALL, Mechanical, Hematoma Referrals: Magan Garcia MD [Primary Care Provider] -
[2019-09-08 05:53] VITALS: RESP 16
== END 2019-09-08 06:01 | disposition skilled nursing facility (03) ==
PROVIDERS: Emergency Provider Emergency Medicine; PCP Family Medicine
DX: S00.03XA Contusion of scalp, initial encounter (principal); W01.198A Fall on same level from slipping, tripping and stumbling with subsequent striking against other object, initial encounter; Y93.9 Activity, unspecified; Y92.002 Bathroom of unspecified non-institutional (private) residence as the place of occurrence of the external cause; Y99.9 Unspecified external cause status; I48.91 Unspecified atrial fibrillation; K21.9 Gastro-esophageal reflux disease without esophagitis; K58.9 Irritable bowel syndrome, unspecified; Z79.02 Long term (current) use of antithrombotics/antiplatelets; Z82.49 Family history of ischemic heart disease and other diseases of the circulatory system; Z88.8 Allergy status to other drugs, medicaments and biological substances; Z90.49 Acquired absence of other specified parts of digestive tract; Z90.710 Acquired absence of both cervix and uterus; Z95.5 Presence of coronary angioplasty implant and graft; I25.10 Atherosclerotic heart disease of native coronary artery without angina pectoris; F32.9 Major depressive disorder, single episode, unspecified; F41.9 Anxiety disorder, unspecified; E78.5 Hyperlipidemia, unspecified; G25.81 Restless legs syndrome; F17.200 Nicotine dependence, unspecified, uncomplicated
CPT/HCPCS: 70450; 99282

== ENCOUNTER → 2020-02-18 11:57 | Outpatient (CLI) | payer MEDICARE, OTHER, SELFPAY ==
[2020-02-04 12:08] VITALS: BMI 29.2
--- NOTE | 2020-02-18 11:58 | RAD_ITS ---
STUDY: BARIUM ENEMA. REASON FOR EXAM: Female, 64 years old. Chu pouch, colitis FLUOROSCOPY TIME (if supplied): ( 126 seconds ) minutes/seconds. 5 images were obtained. TECHNIQUE: Barium was introduced retrograde through the rectal stump. There is no evidence of bowel leakage. COMPARISON: None. FINDINGS: Scattered sigmoid diverticula. A colostomy is seen in the left lower quadrant. RAD/Barium Enema No Air Cont IMPRESSION: Scattered residual sigmoid diverticula. Electronically Signed: Delta Medina, at 13:16 EDT , Service support ,
== END ==
PROVIDERS: PCP Family Medicine; Referring Provider Surgery; Visit Provider Surgery
DX: K56.609 Unspecified intestinal obstruction, unspecified as to partial versus complete obstruction (principal); K52.9 Noninfective gastroenteritis and colitis, unspecified
CPT/HCPCS: 74270

== ENCOUNTER 2020-02-21 05:40 | Day surgery (SDC) | payer MEDICARE, OTHER, SELFPAY ==
[2020-02-04 12:08] VITALS: BMI 29.2
[2020-02-21] VITALS (7 sets, daily range): BP systolic 101–134; BP diastolic 48–84; PULSE 63–78; RESP 16; TEMP 36.1–36.9; O2SAT 98–100; BMI 25.8
--- NOTE | 2020-02-21 05:49 | HP.PCM_ITS ---
Problem List (1) Sigmoid diverticulitis Status: Acute (2) History of colostomy Status: Acute History and Physical Date of Admission: 02/21/20 Intake Visit Reasons: Recheck Ostomy Chief Complaint: large bowel obstruction Allergies promethazine HCl [From Phenergan] Adverse Reaction (Verified 12/01/19 13:53) Vomiting tuberculin, purified protein deriva Adverse Reaction (Verified 12/01/19 13:53) Swelling BEE STING Allergy (Uncoded 10/04/19 14:00) Anaphylaxis HPI HPI HPI: TY HOFF, is a 64 F who presents to the office today for ongoing surgical consultation. The patient had what was felt to be acute chronic diverticulitis with stricturing and subsequent large bowel obstruction aggravated by prescription prescribed cathartics. She required an emergency loop transverse colostomy which failed became ischemic and then she required a takedown of that transverse colostomy with full expiration and residual distal end transverse colostomy left lower quadrant with Hardeep pouch. She is never had a full colonoscopy. Clinically it was suspected to be diverticular disease. Final pathology simply suggests acute colitis with infarction. On today's visit she notes some bleeding at the stoma. Little bit difficult to tell whether this is secondary to stomal appliance or from stoma itself. Report of Operation: Return to the operating room because of a failed decompressive loop transverse colostomy because of ischemia and retraction Date of Procedure: 08/26/19 Pre-Operative Diagnosis: Large bowel obstruction, ischemic transverse colostomy loop stoma Post-Operative Diagnosis: Same Surgery/Procedure Performed:: Exploratory laparotomy with extensive lysis of adhesions and left colectomy with Hardeep procedure and end transverse colost joo left lower quadrant with excision of previous loop colostomy left upper abdomen Description of Surgical Findings:: Timeout and informed consent was obtained. Patient taken the operating placement table. She is already on therapeutic Zosyn. The stoma left upper quadrant was sutured closed. The abdomen was sterilely prepped draped. A vertical midline incision superior to the umbilicus was created carried down through the subtenons tissue. Linea alba was incised. Adhesions of omentum were dissected free. Exploration revealed that the greater omentum was firmly adherent in the pelvis over a broad area. This pulled the proximal transverse colon down to the pelvis and limited its mobility significantly. There was significant amount of stool located throughout the entire left colon with a palpable indurated rectosigmoid colon with what appeared to be a stricture and very firm stool retrograde from that. After extensive lysis of adhesions freeing the greater omentum could then see that the transverse colon could be mobilized. Could not see any means of doing a primary anastomosis today due to the significant fecal load and due to the amount of induration and inflammation of the rectosigmoid area. After much consideration elected to do a Hardeep procedure using a candycane stapler to transect the rectosigmoid. I then dissected free the entire left colon using Enseal device and interrupted 0 Vicryl suture ligature for hemostasis took that all the way up to the transverse stoma. Resected that ischemic stoma and released it. Having achieved that the mid and proximal transverse colon could already be mobilized down to the left lower quadrant. A stomal site was selected in the left flaquito-rectus area just inferior to the umbilicus a circular portion of skin was completely excised. A vertical incision was made in the rectus fascia opening was made the bowel was exited at that level. It appeared to have good positional lie. I made no attempt to close the trap was that with a for sure made the transverse colon ischemic. I left the small bowel in position. HPI HPI HPI: TY HOFF, is a 64 F who presents to the office today for Exam Const General: cooperative Nutritional Appearance: average body habitus Orientation: alert, awake [facility] Head: normal to inspection Eyes General: appearance normal, both eyes and all related structures Resp Effort & Inspection: normal respiratory effort Auscultation: clear to auscultation bilaterally Cardio Palpation: normal PMI Rate: regular rate GI Palpation: soft, no hepatosplenomegaly Other: Very tender hypertrophic scar particularly located vertically at the umbilical level. Left lower quadrant and transverse colostomy appears to be extraordinarily viable and healthy. Some slight bulging at the site but digital palpation suggest the fascial opening is slightly generous but I cannot distinctly detect any herniation around it. The colon itself is slightly bulbous beneath. There is no mass no bleeding. Musc Cervical Spine: normal cervical lordosis Neuro Cognition: normal cognition Extrem General: no calf tenderness Psych Affect: anxious affect Assessment & Plan Problems 1. Colitis K52.9 2. Large bowel obstruction K56.609 Plan 64-year-old female. Episode of large bowel obstruction clinically felt to be secondary to acute and chronic diverticulitis with severe stricturing. Final pathology was simply consistent with acute colitis with infarction. She has never had a completed colonoscopy. I recommend to her a colonoscopy per stoma and per rectum. Patient somewhat anxious today so I would proceed with monitored anesthesia care. Oral laxatives with MiraLAX and Hardeep pouch treatment with saline enema. In addition I would recommend a single contrast barium enema only per rectum per Hardeep pouch. That would be to help better define the amount of rectosigmoid remaining. At the time of her emergency surgery there was large amount of inflammatory change at that rectosigmoid area making dissection very difficult. The patient had tenderness at her midline keloid incision. With her permission I did treat that with 40 mg/cc Kenalog 2 cc mixed with 8 cc of 0.5% Marcaine. I injected a total of 5 cc of this mixture into her keloid and periumbilical scar. I did not see any bleeding from her stoma per se today. She appears to have some slight stomal appliance irritation to the skin. She has been changing several appliances secondary to inability to get her routine appliance. I again discussed with her likely challenging approach for reconnection. She is not sure that she would want to proceed as she is anxious that she might have recurrent obstructive issues. I am not sure that I would feel comfortable proceeding locally. My previous impression is that I would not proceed locally at least for 1 year from her previous procedure which was August 2019. We will obtain colonoscopy and rectal pouch imaging to help decipher what might be best future option for her. We have discussed colonoscopy with possible biopsy or polypectomy as indicated. She is aware of technique, benefit, risk, alternatives. She did have problems with delirium after her hospitalization and she did receive significant amounts of narcotics during that hospital stay. I therefore will utilize monitored anesthesia care to help possibly limit postprocedural issues. Copy: Dr. Magan Hutchins M.D., F.A.C.S. Coding Level of Care Code Off vis,est,level 3 Diagnoses Colitis K52.9 Large bowel obstruction K56.609 I have re-examined the patient. There are no clinical changes since date of exam. Procedure Criteria Procedure Type: Elective COVID Risk Discussion: The surgeon/proceduralist and patient have discussed in detail the risk of exposure to and/or potential harm posed by the COVID-19 virus with having a surgery/procedure at this time versus the risk of delaying the surgery/procedure. It is not possible to know either the risk of delaying the surgery or procedure or chance of getting an infection with perfect accuracy, but a joint decision was made between the patient and the surgeon/proceduralist to proceed at this time with the scheduled surgery/procedure as indicated on the consent form.
[2020-02-21] MEDS: Lactated Ringers 1,000 ML 100 ML IV (06:31)
[2020-02-21 06:35] LABS: Bedside Glucose 107 mg/dL (70-110)
--- NOTE | 2020-02-21 07:38 | OP.CCLET_ITS ---
02/21/2020 Magan Garcia MD Re : Colonoscopy procedure for Kina Yu Dear Dr. Garcia This procedure was performed on Friday, February 21, 2020. My impressions and recommendations are as follows: Impressions : - Preparation of the colon was poor. Solid stool scattered throughout remnant colon, mostly transverse and ascending, foreshortened from previous surgery. - The entire examined colon is normal-- separate Chu's pouch and end left lower quadrant colostomy. - No specimens collected. Patient very restless and active during entire procedure. Anesthesiologist asked to assist RAND CEMENTER with sedation. Recommendations : - Discharge patient to home. - Resume previous diet. - Continue present medications. - Repeat colonoscopy in 10 years for screening purposes. - Return to my office in 4 weeks. Consider takedown of colostomy. My findings are described in the full procedure note, which is enclosed. If I can be of further assistance, please feel free to contact me at Doctor phone number(s): Work: . Sincerely, Jerrell Hutchins MD 02/21/2020 7:37:24 AM This report has been signed electronically.
--- NOTE | 2020-02-21 07:38 | OP.COLON_ITS ---
Patient Name: Kina uY Procedure Date: 02/21/2020 6:58 AM Date of : 1955 Age: 64 Procedure: Colonoscopy Indications: Screening for colorectal malignant neoplasm Providers: Jerrell Hutchins MD Referring MD: Magan Garcia MD Medicines: See the Anesthesia note for documentation of the administered medications Patient Profile: Last Colonoscopy: none. The patient's first colonoscopy is today. Complications: No immediate complications. Procedure: Pre-Anesthesia Assessment: - Prior to the procedure, a History and Physical was performed, and patient medications and allergies were reviewed. The patient's tolerance of previous anesthesia was also reviewed. The risks and benefits of the procedure and the sedation options and risks were discussed with the patient. All questions were answered, and informed consent was obtained. Prior Anticoagulants: The patient has taken no previous anticoagulant or antiplatelet agents. ASA Grade Assessment: II - A patient with mild systemic disease. After reviewing the risks and benefits, the patient was deemed in satisfactory condition to undergo the procedure. After I obtained informed consent, the scope was passed under direct vision. Throughout the procedure, the patient's blood pressure, pulse, and oxygen saturations were monitored continuously. The pediatric colonoscope was introduced through the anus and advanced to the cecum, identified by appendiceal orifice and ileocecal valve. The colonoscopy was performed with moderate difficulty due to poor bowel prep. The patient tolerated the procedure well. The quality of the bowel preparation was poor. The ileocecal valve was photographed. Scope In: 7:09:03 AM Scope Withdrawal Time 0 hours 1 minute 56 seconds Scope Out: 7:27:07 AM Total Procedure Duration Time 0 hours 18 minutes 4 seconds Findings: The perianal and digital rectal examinations were normal. Pt has a Chu's pouch, extends to 20cm. Barium retained in rectum had to be manually evacuated. No acute findings The colon (entire examined portion) appeared normal. This was performed per left lower quadrant end colostomy Peristomal hernia noted Impression: - Preparation of the colon was poor. Solid stool scattered throughout remnant colon, mostly transverse and ascending, foreshortened from previous surgery. - The entire examined colon is normal-- separate Chu's pouch and end left lower quadrant colostomy. - No specimens collected. Patient very restless and active during entire procedure. Anesthesiologist asked to assist RECORD LIBRARIAN with sedation. Recommendation: - Discharge patient to home. - Resume previous diet. - Continue present medications. - Repeat colonoscopy in 10 years for screening purposes. - Return to my office in 4 weeks. Consider takedown of colostomy. Procedure Code(s): --- Professional --- 71146, Colonoscopy, flexible; diagnostic, including collection of specimen(s) by brushing or washing, when performed (separate procedure) CPT copyright 2017 [employer]. All rights reserved. The codes documented in this report are preliminary and upon engineer first assistant review may be revised to meet current compliance requirements. Jerrell Hutchins MD 02/21/2020 7:37:24 AM This report has been signed electronically. Number of Addenda: 0 Note Initiated On: 02/21/2020 6:58 AM
[2020-02-21] MEDS: Mineral Oil 1 BOTTLE ENEMA 1 ML RECTAL (08:32)
== END 2020-02-21 10:15 | disposition home or self-care (01) ==
LOC: EN 05:41 → AC 05:42
PROVIDERS: Anesthesiology; PCP Family Medicine; Referring Provider Family Medicine; Visit Provider Surgery
PROC: 0DJD8ZZ Inspection of Lower Intestinal Tract, Via Natural or Artificial Opening Endoscopic (ICD-10-PCS; CPT 45378; principal; 2020-02-21 06:55)
DX: K52.9 Noninfective gastroenteritis and colitis, unspecified (principal); K56.609 Unspecified intestinal obstruction, unspecified as to partial versus complete obstruction; K43.5 Parastomal hernia without obstruction or gangrene; Z88.8 Allergy status to other drugs, medicaments and biological substances; Z93.3 Colostomy status; Z79.899 Other long term (current) drug therapy
CPT/HCPCS: 44388; 82962; 87635; 94799; J7120; J2405; U0003

== ENCOUNTER → 2020-07-25 16:06 | Outpatient (CLI) | payer MEDICARE, OTHER, SELFPAY ==
[2020-07-18 10:18] VITALS: BMI 28.1
--- NOTE | 2020-07-25 16:08 | MRI_ITS ---
STUDY: MRI BRAIN WITHOUT CONTRAST REASON FOR EXAM: Female, 65 years old. Memory loss, imbalance, falls. Frontotemporal dementia TECHNIQUE: Standardized multiplanar fat and water weighted pulse sequences were obtained. COMPARISON: CT 09/08/2019, MRI 08/25/2019 FINDINGS: There is mild cerebral atrophy with widening of the extra-axial spaces and ventricular dilatation. There are multiple white matter hyperintensities, distributed throughout the deep white matter tracts of the cerebral hemispheres, consistent with moderate chronic white matter ischemic changes. There is no evidence for recent intracranial ischemia or other cause of cytotoxic edema on diffusion weighted imaging (DWI). Normal T2* images of the brain without demonstrated susceptibility artifact. There is no demonstrated hemosiderin stain. Normal bilateral basal ganglia. Normal thalami. There is no extra-axial fluid accumulation. Normal flow voids within the major intracranial circulation suggesting patency by spin echo criteria. There is enlargement of the sella turcica with increased CSF within the sella and flattening of the pituitary gland consistent with an empty sellar syndrome. Normal infundibular stalk, hypothalamus, and optic chiasm. Normal tectal plate and pineal gland. There are chronic white matter ischemic changes of the irma. The midbrain and medulla are otherwise normal. Normal cerebellum. Normal basal cisterns. Normal bilateral temporal bones. Normal bilateral internal auditory canals. No demonstrated orbital abnormality, within the constraints of a routine brain study. Normal visualized paranasal sinuses. Normal calvarium and skull base. Normal visualized soft tissue structures. Normal visualized upper cervical spine. MRI/Brain without Contrast IMPRESSION: Involutional changes of the brain, as described above. No acute infarct. Electronically Signed: Skinny Good MD at 17:17 EST Tel , Service support ,
[2020-07-25 16:40] LABS: CREATININE FINGERSTICK 1.4 mg/dL (0.55-1.02)
== END ==
PROVIDERS: PCP Family Medicine; Referring Provider Psychiatry & Neurology Neurology; Visit Provider Psychiatry & Neurology Neurology
DX: F03.90 Unspecified dementia, unspecified severity, without behavioral disturbance, psychotic disturbance, mood disturbance, and anxiety (principal)
CPT/HCPCS: 70551

== ENCOUNTER → 2020-09-18 16:40 | Outpatient (CLI) | payer MEDICARE, OTHER, SELFPAY ==
[2020-07-18 10:18] VITALS: BMI 28.1
[2020-09-18 15:26] LABS: Hemoglobin A1c 6.3 % (3.8-5.6)
[2020-09-18 15:27] LABS: Cholesterol 129 mg/dL (200); High Density Lipoprotein 76 mg/dL; Triglycerides 128 mg/dL; Very Low Density Lipoprotein 26 mg/dL (5-40)
[2020-09-18 15:44] LABS: Ferritin 7 ng/mL (8-252); Iron 19 ug/dL (50-170)
--- NOTE | 2020-09-18 16:41 | CT_ITS ---
STUDY: CT ABDOMEN AND PELVIS WITH CONTRAST REASON FOR EXAM: Female, 65 years old. Vomiting with ingestion of food. Black stools. RADIATION DOSAGE (If Supplied By Facility): CTDIvol = ( 12.08 ) mGy, DLP = ( 795.37 ) mGycm TECHNIQUE: Transaxial images were obtained from the dome of the diaphragm to the symphysis pubis with oral contrast. Oral and amp; IV Readi-CAT and amp; 100mL Isovue-300 was administered. Sagittal and coronal images were reconstructed. Individualized dose optimization techniques were used for this CT. COMPARISON: Comparison is made with prior study dated 09/01/2019. FINDINGS: The visualized lung bases are unremarkable. Coronary artery calcification. Normal liver. There are surgical clips in the gallbladder fossa consistent with a prior cholecystectomy. Normal spleen. There is diffuse atrophy of the pancreas. Normal bilateral adrenal glands. Normal right kidney. Normal left kidney. There is evidence of diffuse thickening of the gastric folds. Gastritis should be ruled out. Correlation with endoscopy is recommended. Normal small intestine. A colostomy is seen in the left anterior abdominal wall. There are surgical clips in the region of the appendix consistent with a prior appendectomy. There is diffuse atherosclerotic calcification of the abdominal aorta, without a demonstrated aneurysm. Normal inferior vena cava. Normal retroperitoneum. Normal urinary bladder. There is absence of the uterus consistent with a prior hysterectomy. Normal abdominal wall. There are degenerative changes of the visualized lumbar spine. CT/Abdomen/Pelvis WITH Contrast IMPRESSION: Diffuse thickening of the gastric folds. Gastritis should be ruled out. Endoscopic correlation is suggested. The previously seen right pleural effusion and right basilar atelectasis has resolved. Stable colostomy left lower quadrant. Electronically Signed: Delta Medina MD at 10:14 EDT , Service support ,
[2020-09-18 17:05] LABS: CREATININE FINGERSTICK 1.6 mg/dL (0.55-1.02)
== END ==
PROVIDERS: Nurse Practitioner Family; Psychiatry & Neurology Neurology; PCP Family Medicine; Referring Provider Surgery; Visit Provider Surgery
DX: E78.5 Hyperlipidemia, unspecified (principal); Z86.2 Personal history of diseases of the blood and blood-forming organs and certain disorders involving the immune mechanism; E11.9 Type 2 diabetes mellitus without complications
CPT/HCPCS: 36415; 74177; 80061; 82728; 83036; 83540; Q9967; A4216

== ENCOUNTER 2020-09-21 05:29 | Day surgery (SDC) | payer MEDICARE, OTHER, SELFPAY ==
[2020-07-18 10:18] VITALS: BMI 28.1
[2020-09-21] VITALS (7 sets, daily range): BP systolic 96–121; BP diastolic 56–78; PULSE 57–66; RESP 16–18; TEMP 36.2–36.7; O2SAT 95–100; BMI 27.2
--- NOTE | 2020-09-21 06:07 | PCM.HP.STD ---
Problem List (1) Nausea & vomiting Status: Acute (2) Decreased appetite Status: Acute (3) History of colostomy Status: Acute History of Present Illness Date of Admission: 09/21/20 Chief Complaint: Nausea, vomiting, syncope, lack of appetite The patient is a 65 year old F who presents for an elective endoscopy. Patient states for approximately 1 year she has been having nausea, vomiting and decreased appetite. She notes within the last 2-3 months this has progressively increased. She states her nausea, vomiting is associated with food. She notes occasional pain/gallbladder attack with these associated symptoms. She states she verdugo snot have her gallbladder. She notes the symptoms are somewhat resolved with not eating. She states majority of the time she does not have any abdominal pain. She notes her stool output from her colostomy is black coffee. She has been on pantoprazole for years and years. She takes carafate as needed, TUMs and zofran. She notes within the last 2-3 weeks she has been consuming a lot of Zofran with no relief. She states she has had an upper scope in the past with Dr. Peters. She notes a hiatal hernia was found. She states she has a history of H Pylori which she was successfully treated for. She notes H pylori was years and years ago. She states she typically eats mid morning and again in the afternoon. She drinks a lot of cola. She denies recent hospitalizations. She has been vaccinated for COVID. She is a current everyday smoker. She has contacted our office with her above symptoms. A CT scan of the ab/pel was ordered and demonstrated the following: STUDY: CT ABDOMEN AND PELVIS WITH CONTRAST REASON FOR EXAM: Female, 65 years old. Vomiting with ingestion of food. Black stools. RADIATION DOSAGE (If Supplied By Facility): CTDIvol = ( 12.08 ) mGy, DLP = ( 795.37 ) mGycm TECHNIQUE: Transaxial images were obtained from the dome of the diaphragm to the symphysis pubis with oral contrast. Oral and amp; IV Readi-CAT and amp; 100mL Isovue-300 was administered. Sagittal and coronal images were reconstructed. Individualized dose optimization techniques were used for this CT. COMPARISON: Comparison is made with prior study dated 09/01/2019. FINDINGS: The visualized lung bases are unremarkable. Coronary artery calcification. Normal liver. There are surgical clips in the gallbladder fossa consistent with a prior cholecystectomy. Normal spleen. There is diffuse atrophy of the pancreas. Normal bilateral adrenal glands. Normal right kidney. Normal left kidney. There is evidence of diffuse thickening of the gastric folds. Gastritis should be ruled out. Correlation with endoscopy is recommended. Normal small intestine. A colostomy is seen in the left anterior abdominal wall. There are surgical clips in the region of the appendix consistent with a prior appendectomy. There is diffuse atherosclerotic calcification of the abdominal aorta, without a demonstrated aneurysm. Normal inferior vena cava. Normal retroperitoneum. Normal urinary bladder. There is absence of the uterus consistent with a prior hysterectomy. Normal abdominal wall. There are degenerative changes of the visualized lumbar spine. CT/Abdomen/Pelvis WITH Contrast IMPRESSION: Diffuse thickening of the gastric folds. Gastritis should be ruled out. Endoscopic correlation is suggested. The previously seen right pleural effusion and right basilar atelectasis has resolved. Stable colostomy left lower quadrant. Electronically Signed: Delta Medina MD at 10:14 EDT , Service support , Past Medical History Past Medical History (Chronic Problems): Chronic Problems (Last Reviewed 08/29/20 @ 15:53 by Quyen Lugo) Paroxysmal atrial fibrillation (Chronic[facility]; History of coronary artery stent placement (Chronic) At [facility]; Atherosclerosis of hughes coronary artery of hughes heart without angina pectoris (Chronic) Hypokalemia (Chronic) Diverticulitis (Chronic) GERD (gastroesophageal reflux disease) (Chronic) Coronary artery disease (Chronic) Restless legs syndrome (Chronic) Depression (Chronic) Anxiety (Chronic) Hyperlipidemia (Chronic) Irritable bowel syndrome with constipation (Chronic) Atrial fibrillation (Chronic) History of cardioversion (Chronic 09/02/19) Tobacco dependence syndrome (Chronic) History of Clostridium difficile infection (Chronic) Medical History: Medical History (Last Reviewed 09/21/20 @ 06:15 by Joelle DAVIS, PA-C) Skin ulcer (Acute) L98.499 Debility (Acute) R53.81 Abdominal pain (Acute) R10.9 Encephalopathy (Acute) G93.40 Visual hallucinations (Acute) R44.1 Hypokalemia (Chronic) E87.6 Diverticulitis (Chronic) K57.92 GERD (gastroesophageal reflux disease) (Chronic) K21.9 Coronary artery disease (Chronic) I25.10 Restless legs syndrome (Chronic) G25.81 Depression (Chronic) F32.9 Anxiety (Chronic) F41.9 Hyperlipidemia (Chronic) E78.5 Irritable bowel syndrome with constipation (Chronic) K58.1 Fecal impaction of colon (Resolved) K56.41 Atrial fibrillation (Chronic) I48.91 Sigmoid diverticulitis (Acute) K57.32 Failure of outpatient treatment (Acute) Z78.9 Altered mental status (Acute) R41.82 Colitis (Acute) K52.9 Constipation (Acute) K59.00 Large bowel obstruction (Resolved) K56.609 Tobacco dependence syndrome (Chronic) F17.200 History of Clostridium difficile infection (Chronic) Z86.19 Carpal tunnel syndrome G56.00 High cholesterol E78.00 High triglycerides E78.1 Osteoarthritis M19.90 Rheumatoid arthritis M06.9 Chronic bronchitis J42 HTN (hypertension) I10 Allergies promethazine HCl [From Phenergan] Adverse Reaction (Verified 09/21/20 05:49) Vomiting tuberculin, purified protein deriva Adverse Reaction (Verified 09/21/20 05:49) Swelling BEE STING Allergy (Uncoded 09/21/20 05:49) Anaphylaxis Home Medications: Ambulatory Orders Medication Instructions Recorded Pantoprazole Sodium [Protonix] 40 mg PO DAILY 03/21/17 Clopidogrel Bisulfate [Clopidogrel] 75 mg PO DAILY 01/27/19 Ezetimibe 10 mg PO DAILY 01/27/19 Acetaminophen [Tylenol] 1,000 mg PO Q6H PRN PRN tab 09/20/19 Atorvastatin Calcium [Lipitor] 80 mg PO QHS #30 tab 09/20/19 Melatonin 10 mg PO QHS #0 tab 09/20/19 Ondansetron [Zofran Odt] 4 mg PO Q8H PRN PRN #30 tab 03/30/20 Sucralfate [Carafate] 1 tab PO TID PRN #90 tab 09/20/19 diltiazem HCl 180 mg 180 mg PO DAILY #90 cap 10/06/19 capsule,extended release 24 hr fenofibrate 54 mg tablet 54 mg PO DAILY tab 04/18/20 collagenase clostridium histo. 250 1 applic TOPICAL DAILY #30 g 08/21/20 unit/gram topical ointment donepezil 10 mg tablet 10 mg PO QHS #30 tab 08/29/20 nystatin 100,000 unit/mL oral 5 ml PO 4X/DAY PRN #200 ml 08/29/20 suspension ropinirole 3 mg tablet 3 mg PO QHS #30 tab 09/05/20 Sertraline HCl [Zoloft] 100 mg PO QHS 09/20/20 Surgical History: Surgical History (Last Reviewed 09/21/20 @ 06:15 by MICHELLE NewC) History of cardioversion (Chronic) Onset Date: 09/02/19 Z98.890 History of creation of ostomy Z93.9 History of cholecystectomy Z90.49 History of hysterectomy Z90.710 History of laparoscopy Z98.890 History of partial colectomy Z90.49 Surgical History: angioplasty - cardiac stent., appendectomy, cholecystectomy, hysterectomy Psychiatric History: Anxiety, Depression 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: No pertinent ENERGY CONSULTANT history Smoking Status: Current some day smoker Tobacco Use: Cigarettes - *Family History Maternal Family History: Family History (Last Reviewed 09/21/20 @ 06:15 by MICHELLE NewC) Mother Heart disease Myocardial infarction CVA (cerebral vascular accident) Sister Diabetes History Items: Diabetes, Heart Disease Paternal Family History: Family History (Last Reviewed 09/21/20 @ 06:15 by MICHELLE NewC) Mother Heart disease Myocardial infarction CVA (cerebral vascular accident) Sister Diabetes History Items: Cancer - His father from pancreatic cancer at the age of 51. Review of Systems Constitutional: Reports: Anorexia, Chills, Weakness, Fatigue HEENT: Denies: Head Aches, Sinus Congestion, Sinus Drainage Cardiovascular: Denies: Chest Pain, Palpitations Respiratory: Denies: Cough, Shortness of breath at rest, Sputum production Gastrointestinal: Reports: Diarrhea, Nausea, Vomiting. Denies: Abdominal Pain, Hematemesis, Hematochezia Genitourinary: Denies: Dysuria Musculoskeletal: Denies: Joint Pain, Joint Tenderness Skin: Denies: Rash, Wounds Neurological: Reports: Balance problems Psychiatric: Reports: Anxiety, Depression Hematologic/ Lymphatic: Denies: Easy Bruising, Easy Bleeding VTE Information - Inpt Only VTE Present on Admission: Yes VTE Mechan Device Prophylaxis: SCD's - Physical Exam Vitals/I&O's: Body Mass Index (BMI) 28.1 Finger Stick Blood Glucose 86 General: Alert, Oriented x3, Cooperative, - - Smell of smoke noted HEENT: Atraumatic, PERRLA, EOMI, Normocephalic Neck: Supple, No JVD, Negative Carotid Bruits Lungs: Clear to auscultation, Normal air movement Cardiovascular: Regular rate, No murmurs Abdomen: Bowel Sounds Present, Soft, Non Tender Extremities: No edema, Capillary Refill Less than 3 Seconds Skin: No rashes, No breakdown Musculoskeletal: No Tenderness to Palpation of Joints or Extremities Neurological: Neuro grossly intact Psych/Mental Status: Normal Affect, Appropriate Assessment/Plan All Active Problems (Last Reviewed 08/29/20 @ 15:53 by Quyen Lugo) Nausea & vomiting (Acute) Decreased appetite (Acute) Skin ulcer (Acute) History of colostomy (Acute) Debility (Acute) Abdominal pain (Acute) Encephalopathy (Acute) Visual hallucinations (Acute) Sepsis (Acute) Atrial fibrillation with rapid ventricular response (Acute) Fecal impaction of colon (Resolved) Sigmoid diverticulitis (Acute) Failure of outpatient treatment (Acute) Altered mental status (Acute) Colitis (Acute) Constipation (Acute) Large bowel obstruction (Resolved) Dr. Hutchins will plan to perform an Esophagogastroduodenoscopy with possible biopsies, possible cessation of any bleeding. Procedure details, risks and benefits have been explained. Patient and her son have had the opportunity to ask and have questions answered. Patient verbally understands and agrees with the plan. She has continued to take her Plavix. Dr. Hutchins will independently evaluate this patient. Office Visits / Consults: [id number] OP Consult L2 - No charge; patient with EGD procedure today
[2020-09-21 06:16] LABS: Bedside Glucose 114 mg/dL (70-110)
[2020-09-21] MEDS: Lactated Ringers 1,000 ML 100 ML IV (06:24)
--- NOTE | 2020-09-21 06:30 | EGD_PTH ---
PATIENT: TY HOFF LOC: EN U#:[id number] AGE/SX: 65/F ROOM: RE09/21/[address]: Dr. Jerrell Hutchins MD : 1955 BED: DIS: 09/21/2020 SPEC #: [id number] RECD: 09/21/20 08:27 STATUS: MARIANA TYLER #: [id number] JOS: 09/21/20 06:[address]: Jerrell Hutchins DEPT: SURGICAL PATHOLOGY RECD BY: Moon Diaz ENTERED: 09/21/20 09:28 SP TYPE: EGD BIOPSY OTHR DR: Dr. Magan Garcia MD Tissues: A - Duodenum, NOS B - Gastric mucous membrane C - Gastric mucous membrane D - Esophagus, NOS E - Esophagus, NOS Procedures: Special Stain Group II Surgery Specimen Level IV Alcian Blue/PAS (control) HEADER OPERATION: EGD ([facility]) PRE-OP DIAGNOSIS: Nausea, vomiting, syncope, lack of appetite TISSUE SUBMITTED: A - Duodenum biopsy, B - Antrum biopsy for H. pylori and path, C - Gastric polyp body of stomach biopsy, D - Distal esophagus biopsy, E - Mid esophagus biopsy MICROSCOPIC DIAGNOSIS A. Duodenum, biopsy: Fragments of small intestinal mucosa, no pathologic diagnosis. B. Antrum, biopsy: Mild gastritis. See microscopic description and comment. C. Gastric polyp, body of stomach, biopsy: Fragments of fundic gland polyp. D. Distal esophagus, biopsy: A fragment of squamous epithelium, no pathologic diagnosis. See comment. E. Mid esophagus, biopsy: Fragments of gastroesophageal mucosa with mild chronic inflammation. Intestinal metaplasia (goblet cell metaplasia) is not identified. See comment. SJ:jessy 09/22/2020 COMMENT B. The results of immunohistochemistry for Helicobacter pylori will be reported separately ([id number]). D & E. The specimen designation might have switched. Correlation with endoscopic findings is suggested. E. Alcian blue/PAS stain with matched control is used in the evaluation of the specimen. This case has been reviewed in consultation with Dr. Guzman who concurs with the above diagnosis. MICROSCOPIC DESCRIPTION Slides are reviewed. B. The specimen shows fragments of gastric mucosa with chronic inflammatory cell infiltrates in the lamina propria consisting of lymphocytes and plasma cells, consistent with mild chronic gastritis. GROSS DESCRIPTION A - Received in fixative is one container labeled with the patient's name and designated duodenum biopsy. The specimen consists of two irregular fragments of light flores soft tissue that in aggregate measure 0.5 x 0.2 x 0.1 cm. The specimen is totally submitted in one cassette. B - Received in fixative is one container labeled with the patient's name and designated antrum biopsy. The specimen consists of one irregular fragment of light flores soft tissue that measures 0.3 x 0.3 x 0.1 cm. The specimen is totally submitted in one cassette. C - Received in fixative is one container labeled with the patient's name and designated gastric polyp biopsy. The specimen consists of multiple irregular fragments of light flores soft tissue that in aggregate measure 1 x 0.3 x 0.1 cm. The specimen is totally submitted in one cassette. D - Received in fixative is one container labeled with the patient's name and designated distal esophagus biopsy. The specimen consists of one irregular fragment of light flores soft tissue that measures 0.5 x 0.2 x 0.1 cm. The specimen is totally submitted in one cassette. E - Received in fixative is one container labeled with the patient's name and designated mid esophagus biopsy. The specimen consists of two irregular fragments of light flores soft tissue that in aggregate measure 0.7 x 0.2 x 0.1 cm. The specimen is totally submitted in one cassette. / SJ:rg 09/21/20 TC:3 [facility]: [id number] x5, [id number]
--- NOTE | 2020-09-21 06:30 | IMM_PTH ---
PATIENT: TY HOFF LOC: EN U#:[id number] AGE/SX: 65/F ROOM: RE09/21/[address]: Dr. Jerrell Hutchins MD : 1955 BED: DIS: 09/21/2020 SPEC #: [id number] RECD: 09/21/20 11:09 STATUS: MARIANA REQ #: [id number] JOS: 09/21/20 06:[address]: Jerrell Hutchins DEPT: IMMUNOHISTOCHEMISTRY RECD BY: Liberty Rodriguez ENTERED: 09/21/20 11:10 SP TYPE: IMMUNO OTHR DR: Dr. Magan Garcia MD Tissues: B - Stomach, NOS Procedures: H Pylori (initial) PHYSICIAN & INSTITUTION [address] [address] SPECIMEN INFORMATION: Tissue Source: B - Antrum biopsy Clinical Info: Nausea, vomiting, syncope, lack of appetite Specimen Number: [id number] CPT code: 68587 METHODOLOGY: Deparaffinized sections of prefer/formalin-fixed tissue or PAP/DQ stained slides are incubated with monoclonal/polyclonal antibodies/oligonucleotide probes. Localization is made via biotin free immunoperoxidase method. Appropriate controls are performed and reacted as expected. Results on target cell population are indicated in the following table: RESULTS: ANTIBODY / CLONE RESULT Block B H Pylori (polyclonal) negative These tests were developed and their performance characteristics determined by [facility]. They may not have been cleared or approved by the U.S. Food and Drug Administration. The FDA has determined that such clearance or approval is not necessary. INTERPRETATION: B. Antrum biopsy: Negative for Helicobacter pylori organisms. ALENA:jessy 09/22/2020
--- NOTE | 2020-09-21 06:52 | OP.CCLET_ITS ---
09/21/2020 Magan Garcia MD Re : Upper GI endoscopy procedure for Kina Yu Dear Dr. Garcia This procedure was performed on September. My impressions and recommendations are as follows: Impressions : - Z-line variable, 38 cm from the incisors. Biopsied. - Normal mid esophagus. Biopsied. - Medium-sized hiatal hernia. - Multiple gastric polyps. Resected and retrieved. - Enlarged gastric folds. Biopsied. - Erythematous mucosa in the antrum. Biopsied. - Normal examined duodenum. Biopsied. Duodenal diverticulum noted proximal to ampulla Recommendations : - Discharge patient to home. - Resume previous diet. - Continue present medications. - Telephone my office for pathology results in 1 week. No acute findings. Etiology to hypertrophic rugae not immediately identified. My findings are described in the full procedure note, which is enclosed. If I can be of further assistance, please feel free to contact me at Doctor phone number(s): Work: . Sincerely, Jerrell Hutchins MD 09/21/2020 6:52:04 AM This report has been signed electronically.
--- NOTE | 2020-09-21 06:52 | OP.EGD_ITS ---
Patient Name: Kina Yu Procedure Date: 09/21/2020 6:13 AM Date of : 1955 Age: 65 Procedure: Upper GI endoscopy Indications: Epigastric abdominal pain, Nausea Providers: Jerrell Hutchins MD Medicines: See the Anesthesia note for documentation of the administered medications Complications: No immediate complications. Procedure: Pre-Anesthesia Assessment: - Prior to the procedure, a History and Physical was performed, and patient medications and allergies were reviewed. The patient's tolerance of previous anesthesia was also reviewed. The risks and benefits of the procedure and the sedation options and risks were discussed with the patient. All questions were answered, and informed consent was obtained. Prior Anticoagulants: The patient has taken Plavix (clopidogrel). ASA Grade Assessment: II - A patient with mild systemic disease. After reviewing the risks and benefits, the patient was deemed in satisfactory condition to undergo the procedure. After obtaining informed consent, the endoscope was passed under direct vision. Throughout the procedure, the patient's blood pressure, pulse, and oxygen saturations were monitored continuously. The gastroscope was introduced through the mouth, and advanced to the second part of duodenum. The upper GI endoscopy was accomplished without difficulty. The patient tolerated the procedure well. Scope In: 6:33:41 AM Scope Out: 6:41:11 AM Total Procedure Duration Time 0 hours 7 minutes 30 seconds Findings: The Z-line was variable and was found 38 cm from the incisors. Biopsies were taken with a cold forceps for histology. The mid esophagus was normal. Biopsies were taken with a cold forceps for histology. A medium-sized hiatal hernia was present. Multiple sessile polyps with no stigmata of recent bleeding were found in the gastric body. The polyp was removed with a cold biopsy forceps. Resection and retrieval were complete. Diffuse thick gastric folds were found in the gastric body. Biopsies were taken with a cold forceps for histology. Diffuse mildly erythematous mucosa without bleeding was found in the gastric antrum. Biopsies were taken with a cold forceps for histology. The examined duodenum was normal except diverticulum noted. Biopsies were taken with a cold forceps for histology. Impression: - Z-line variable, 38 cm from the incisors. Biopsied. - Normal mid esophagus. Biopsied. - Medium-sized hiatal hernia. - Multiple gastric polyps. Resected and retrieved. - Enlarged gastric folds. Biopsied. - Erythematous mucosa in the antrum. Biopsied. - Normal examined duodenum. Biopsied. Duodenal diverticulum noted proximal to ampulla Recommendation: - Discharge patient to home. - Resume previous diet. - Continue present medications. - Telephone my office for pathology results in 1 week. No acute findings. Etiology to hypertrophic rugae not immediately identified. Procedure Code(s): --- Professional --- 21464, Esophagogastroduodenoscopy, flexible, transoral; with biopsy, single or multiple Diagnosis Code(s): --- Professional --- K22.8, Other specified diseases of esophagus K44.9, Diaphragmatic hernia without obstruction or gangrene K31.7, Polyp of stomach and duodenum K29.60, Other gastritis without bleeding K31.89, Other diseases of stomach and duodenum R10.13, Epigastric pain R11.0, Nausea CPT copyright 2017 [employer]. All rights reserved. The codes documented in this report are preliminary and upon population health manager review may be revised to meet current compliance requirements. Jerrell Hutchins MD 09/21/2020 6:52:04 AM This report has been signed electronically. Number of Addenda: 0 Note Initiated On: 09/21/2020 6:13 AM
== END 2020-09-21 07:37 | disposition home or self-care (01) ==
LOC: EN 05:31 → AC 05:33
PROVIDERS: PCP Family Medicine; Referring Provider Family Medicine; Visit Provider Surgery
PROC: 0DJ08ZZ Inspection of Upper Intestinal Tract, Via Natural or Artificial Opening Endoscopic (ICD-10-PCS; CPT 43235; principal; 2020-09-21 06:25)
DX: R11.2 Nausea with vomiting, unspecified (principal); K22.8 Other specified diseases of esophagus; K44.9 Diaphragmatic hernia without obstruction or gangrene; K31.7 Polyp of stomach and duodenum; K29.60 Other gastritis without bleeding; R10.13 Epigastric pain; K31.89 Other diseases of stomach and duodenum; K57.10 Diverticulosis of small intestine without perforation or abscess without bleeding; Z90.49 Acquired absence of other specified parts of digestive tract; Z90.710 Acquired absence of both cervix and uterus; Z93.3 Colostomy status; Z79.02 Long term (current) use of antithrombotics/antiplatelets; E78.5 Hyperlipidemia, unspecified; F17.210 Nicotine dependence, cigarettes, uncomplicated; F32.9 Major depressive disorder, single episode, unspecified; F41.9 Anxiety disorder, unspecified; I10 Essential (primary) hypertension; I25.10 Atherosclerotic heart disease of native coronary artery without angina pectoris; I48.0 Paroxysmal atrial fibrillation; K21.9 Gastro-esophageal reflux disease without esophagitis; Z82.3 Family history of stroke; Z82.49 Family history of ischemic heart disease and other diseases of the circulatory system; Z88.8 Allergy status to other drugs, medicaments and biological substances; Z95.5 Presence of coronary angioplasty implant and graft; Z83.3 Family history of diabetes mellitus
CPT/HCPCS: 43239; 82962; 87426; 88305; 88313; 88342; J7120; J2405

== ENCOUNTER → 2020-11-07 11:34 | Outpatient (CLI) | payer MEDICARE, OTHER, SELFPAY ==
[2020-07-18 10:18] VITALS: BMI 28.1
[2020-11-07 11:12] VITALS: BMI 27.2
[2020-11-07 11:48] VITALS: BP 129/54; PULSE 59; RESP 16; TEMP 36.3; O2SAT 100; BMI 25.7
[2020-11-07] MEDS: 0.9% NaCl Peripheral Flush Adult/Peds IV (11:54)
[2020-11-07] MEDS: 0.9% NaCl IVPB Med Flush (250 mL) 15 ML IV (11:54)
[2020-11-07 12:55] VITALS: BP 132/59; PULSE 57; RESP 16; O2SAT 100
== END ==
PROVIDERS: PCP Family Medicine; Referring Provider Nurse Practitioner Family; Visit Provider Nurse Practitioner Family
DX: D50.9 Iron deficiency anemia, unspecified (principal)
CPT/HCPCS: 96365; J1756; J7050; A4216

== ENCOUNTER → 2020-11-21 14:42 | Outpatient (CLI) | payer MEDICARE, OTHER, SELFPAY ==
[2020-07-18 10:18] VITALS: BMI 28.1
[2020-11-07 11:48] VITALS: BMI 25.7
--- NOTE | 2020-11-21 15:00 | PET_ITS ---
EXAMINATION: FDG PET-CT BRAIN INDICATIONS: A 65-year-old female with reported history of cognitive impairment, memory loss. COMPARISON EXAMINATION: None available TECHNIQUE: Following the intravenous administration of 8.4 mCi of F-18 deoxyglucose, via the right hand, multiplanar image acquisitions of the brain obtained at 60 minutes post radiopharmaceutical administration reveal: SERUM GLUCOSE LEVEL: 96 mg/dl. HEIGHT: 64 inches. WEIGHT: 165 lbs. FINDINGS: 1. Qualitative, visual analysis demonstrates relative symmetric, preserved glucose metabolism noted in the bilateral frontal, temporal, parietal and occipital lobes. There is symmetric visualization of the basal ganglia and cerebellar hemispheres. PET/PET Brain Metabolic Eval IMPRESSION: 1. NEGATIVE EXAMINATION. There is no definitive qualitative scintigraphic evidence of altered GLUCOSE metabolism-cholinergic function indicative of dementia Alzheimer-type. Electronically Signed: Skinny Ignacio DO at 15:34 EDT Tel , Service support ,
== END ==
PROVIDERS: PCP Family Medicine; Referring Provider Psychiatry & Neurology Neurology; Visit Provider Psychiatry & Neurology Neurology
DX: F03.90 Unspecified dementia, unspecified severity, without behavioral disturbance, psychotic disturbance, mood disturbance, and anxiety (principal); R44.1 Visual hallucinations
CPT/HCPCS: 78608; A9552

== ENCOUNTER → 2021-03-22 12:21 | Outpatient (CLI) | payer MEDICARE, OTHER, SELFPAY | PROVIDERS: PCP Family Medicine; Referring Provider Psychiatry & Neurology Neurology; Visit Provider Psychiatry & Neurology Neurology | DX: D50.9 Iron deficiency anemia, unspecified (principal) ==

== ENCOUNTER 2021-08-02 12:07 | Outpatient (CLI) | payer MEDICARE, SELFPAY ==
[2021-08-02 15:10] LABS: Hematocrit 35.5 % (37-47); Hemoglobin 11.8 g/dL (12.0-15.0); Mean Corp Hgb Conc 33.2 g/dL (32-36); Mean Corpuscular Hgb 29.9 pg (27.0-32.0); Mean Corpuscular Volume 90.1 fL (81-99); Mean Platelet Vol. 10.5 fl (6.2-12.0); Platelet Count 309 K/mm3 (150-450); RBC Distribution Width CV 13.2 % (11.6-14.6); RBC Distribution Width SD 43.4 fl (35.1-43.9); Red Blood Count 3.94 M/mm3 (4.2-5.4)
[2021-08-02 15:20] LABS: Vitamin B12 327 pg/mL (211-911)
[2021-08-02 15:26] LABS: AST(SGOT) 19 U/L (15-37); Alanine Aminotransfer ALT/SGPT 24 U/L (13-56); Albumin, Serum 3.9 g/dL (3.2-5.0); Alkaline Phosphatase 93 U/L (45-117); Anion Gap 9 (5-15); BUN 20 mg/dL (7-18); BUN/Creat Ratio 15.6 RATIO (10-20); Chloride 110 mmol/L (98-107); Creatinine, Serum 1.28 mg/dL (0.55-1.02); EST Glomerular Filtration Rate 44 mL/min (>60); Est Glom Filt Rate - Afr Amer 54 mL/min (>60); Ferritin 27 ng/mL (8-252); Globulin 4.1 g/dL (2.2-4.2); Glucose 92 mg/dL (74-106); Iron 105 ug/dL (50-170); Potassium 4.2 mmol/L (3.5-5.1); Sodium Level 139 mmol/L (136-145)
== END 2021-08-02 23:59 | disposition home or self-care (01) ==
PROVIDERS: PCP Family Medicine; Referring Provider Nurse Practitioner Family; Visit Provider Nurse Practitioner Family
DX: F03.90 Unspecified dementia, unspecified severity, without behavioral disturbance, psychotic disturbance, mood disturbance, and anxiety (principal); I67.9 Cerebrovascular disease, unspecified; G25.81 Restless legs syndrome; D64.9 Anemia, unspecified
CPT/HCPCS: 36415; 80053; 82607; 82728; 83540; 85027

== ENCOUNTER → 2021-12-17 | Outpatient (CLI) | payer MEDICARE, SELFPAY ==
[2021-12-17 12:45] LABS: Absolute Lymphocyte Count 2.49 X10^3/uL (0.83-4.51); Absolute Neutrophil Count 4.4 X10^3/uL (2.0-7.7); Basophil# 0.04 X10^3/uL; Basophil% 0.5 % (0-1); Eosinophil# 0.15 X10^3/uL; Eosinophils% 1.9 % (0-5); Hematocrit 35.8 % (37-47); Hemoglobin 11.3 g/dL (12.0-15.0); Lymphocyte # 2.49 X10^3/ul (0.83-4.51); Lymphocyte % 31.5 % (19-41); Mean Corp Hgb Conc 31.6 g/dL (32-36); Mean Corpuscular Volume 91.8 fL (81-99); Mean Platelet Vol. 10.7 fl (6.2-12.0); Monocyte# 0.74 X10^3/uL; Monocyte% 9.4 % (0-10); NRBC Flagged by Analyzer 0 % (0-5); Neutrophil # 4.44 X10^3/uL (2.7-7.7); Neutrophil % 56.2 % (47-70); Platelet Count 288 K/mm3 (150-450); RBC Distribution Width CV 13.9 % (11.6-14.6); RBC Distribution Width SD 46.8 fl (35.1-43.9); White Blood Count 7.9 K/mm3 (4.4-11.0)
[2021-12-17 13:11] LABS: BNP,B-Type NATRIURETIC PEPTIDE 12.2 pg/mL (0-100)
[2021-12-17 13:16] LABS: Anion Gap 10 (5-15); BUN 20 mg/dL (7-18); BUN/Creat Ratio 15.3 RATIO (10-20); Calcium,Total 9.4 mg/dL (8.5-10.1); Chloride 104 mmol/L (98-107); Creatinine, Serum 1.31 mg/dL (0.55-1.02); EST Glomerular Filtration Rate 43 mL/min (>60); Est Glom Filt Rate - Afr Amer 52 mL/min (>60); Glucose 91 mg/dL (74-106); Potassium 4.2 mmol/L (3.5-5.1); Sodium Level 139 mmol/L (136-145)
== END | disposition home or self-care (01) ==
LOC: LAB 11:29
PROVIDERS: PCP Family Medicine; Referring Provider Nurse Practitioner Gerontology; Visit Provider Nurse Practitioner Gerontology
DX: R06.00 Dyspnea, unspecified (principal)
CPT/HCPCS: 36415; 80048; 83880; 85025

== ENCOUNTER → 2022-01-10 | Outpatient (CLI) | payer MEDICARE, SELFPAY ==
--- NOTE | 2022-01-10 06:54 | ECHOD_ITS ---
Reason For Study: DYSPNEA/SOB Procedure This was a 2D Doppler, Color Flow transthoracic echocardiogram. The study was technically difficult. Exam performed in department. Left Ventricle Normal LV size. Left ventricular systolic function is normal. The estimated ejection fraction is 65 %. Diastolic function is indeterminate. No regional wall motion abnormalities noted. Right Ventricle Normal RV size. Normal systolic function. Atria The left atrium is mildly enlarged. Normal right atrium. No doppler evidence for ASD. Mitral Valve There is no mitral annular calcification. Normal mitral valve. The mitral valve chordae are thickened and/or calcified. Mild (1+) mitral valve insufficiency. Tricuspid Valve Normal tricuspid valve. Trivial tricuspid valve insufficiency. Unable to estimate RV systolic pressure/pulmonary artery pressure due to technically difficult study. Aortic Valve The aortic valve leaflets are not well visualized, however, based upon the 2D echocardiographic images obtained there appears to be thickening, calcification, and partial restriction. Aortic sclerosis, no stenosis. Pulmonic Valve The pulmonic valve is not well visualized. Great Vessels Normal sized aortic root. Pericardium/Pleural No pericardial effusion. Epicardial fat. MMode/2D Measurements & Calculations LVIDd: 4.6 cm IVSd: 1.1 cm LVOT diam: 2.2 cm LVIDs: 3.4 cm LVPWd: 1.1 cm LVOT area: 3.8 cm2 RVDd: 2.6 cm FS: 26.9 % Ao root diam: 3.2 cm LAV(MOD-bp): 68.9 ml LVAd ap4: 22.2 cm2 LAV(MOD-bp) Indexed: 36.9 ml/m2 LVLd ap4: 7.1 cm LAV(MOD-sp2): 77.5 ml EDV(MOD-sp4): 57.6 ml LAV(MOD-sp4): 59.3 ml EDV(sp4-el): 59.1 ml LVAs ap4: 10.2 cm2 LVLs ap4: 6.1 cm ESV(MOD-sp4): 14.3 ml ESV(sp4-el): 14.4 ml EF(MOD-sp4): 75.3 % EF(sp4-el): 75.7 % SV(MOD-sp4): 43.4 ml SV(sp4-el): 44.8 ml LA A4 area: 20.0 cm2 RA A4 area: 11.3 cm2 Time Measurements MV dec time: 0.26 sec Doppler Measurements & Calculations MV E max pineda: 84.3 cm/sec Lat Peak E' Pineda: 7.3 cm/sec Med Peak E' Pineda: 6.3 cm/sec MV A max pineda: 118.5 cm/sec E/E' lat: 11.5 E/E' med: 13.3 MV E/A: 0.71 MV V2 max: 121.4 cm/sec Ao V2 max: 162.2 cm/sec MV max P.9 mmHg MV dec slope: 321.8 cm/sec2 Ao max P.5 mmHg MV V2 mean: 75.5 cm/sec Ao V2 mean: 105.2 cm/sec MV mean P.5 mmHg Ao mean P.1 mmHg MV V2 VTI: 34.2 cm Ao V2 VTI: 33.0 cm MVA(VTI): 2.7 cm2 TC(I,D): 2.8 cm2 TC(V,D): 2.7 cm2 LV V1 max: 113.5 cm/sec SV(LVOT): 91.5 ml PA V2 max: 84.1 cm/sec LV V1 max P.2 mmHg PA V2 mean: 54.1 cm/sec LV V1 mean P.9 mmHg LV V1 mean: 80.7 cm/sec LV V1 VTI: 23.9 cm ECHO/Echo Complete Interpretation Summary The study was technically difficult. Left ventricular systolic function is normal. The estimated ejection fraction is 65 %. The left atrium is mildly enlarged. The mitral valve chordae are thickened and/or calcified. Mild (1+) mitral valve insufficiency. Trivial tricuspid valve insufficiency. The aortic valve leaflets are not well visualized, however, based upon the 2D e chocardiographic images obtained there appears to be thickening, calcification, and partial rest riction. Aortic sclerosis, no stenosis. Unable to estimate RV systolic pressure/pulmonary artery pressure due to techni jeanette difficult study. Diastolic function is indeterminate. Ordering Physician: Catherine Park Referring Physician: Catherine Park Performed By: Elyssa Kay RCS
--- NOTE | 2022-01-10 09:24 | STRESSREP_ITS ---
Stress Test Report Date: 01-10-2022 Procedure: Pharmacologic stress nuclear imaging study Indications: Shortness of breath/dyspnea on exertion; CAD; PCI; paroxysmal atrial fibrillation; status post previous synchronized biphasic DC cardioversion Consent: Per the patient Procedure: The patient underwent pharmacologic (Regadenoson 0.4mg ) evaluation with a peak heart rate of 96 beats per minute (62%predicted maximal heart rate) and a peak blood pressure of 160/88 mmHg. The baseline ECG demonstrated sinus rhythm. The peak pharmacologic ECG demonstrated no obvious ECG changes. There were no cardiac dysrhythmias pretest, during pharmacologic infusion, or recovery. There was no complaint of chest discomfort during pharmacologic infusion or recovery. The examination was discontinued secondary to completion of protocol. Impression: 1. Pharmacologic (Regadenoson) evaluation 2. Peak pharmacologic ECG with no obvious ECG changes. 3. There were no cardiac dysrhythmias pretest, during pharmacologic infusion, or recovery. 4. Nuclear images pending Myocardial perfusion imaging study: Technique: The patient was injected with 14.3 millicuries of technetium 99m Cardiolite and subsequently rest SPECT Cardiolite nuclear imaging was obtained in the horizontal long, vertical long, and short axis views. The patient underwent pharmacologic (Regadenoson) evaluation with a peak heart rate of 96 beats per minute (62% percent predicted maximal heart rate) and a peak blood pressure of 160/88 mmHg. The patient was injected with 44 point millicuries of technetium 99m Cardiolite and subsequently stress SPECT Cardiolite nuclear imaging was obtained in the horizontal long, vertical long, and short axis views. A gated Cardiolite study at peak stress was obtained. Interpretation: Rest and stress SPECT Cardiolite nuclear imaging status post realignment, normalization, and attenuation correction demonstrate relative uniform tracer uptake and myocardial perfusion appearing within normal limits. There is end systolic thickening and brightening. The gated Cardiolite study demonstrates myocardial thickening and inward wall motion. The reported LVEF is 66%. Impression: 1. Rest and stress SPECT Cardiolite nuclear imaging demonstrate relative uniform tracer uptake and myocardial perfusion appearing within normal limits. 2. The gated Cardiolite study reports an LVEF of 66%. This note was generated with [employer] software. It may contain incorrect words, spelling, and punctuation that were not noted in checking the note before signing.
== END | disposition home or self-care (01) ==
PROVIDERS: PCP Family Medicine; Referring Provider Nurse Practitioner Gerontology; Visit Provider Nurse Practitioner Gerontology
DX: R06.00 Dyspnea, unspecified (principal); I25.10 Atherosclerotic heart disease of native coronary artery without angina pectoris
CPT/HCPCS: 78452; 93017; 93306; A9500; A4216; J2785

== ENCOUNTER → 2022-02-26 | Outpatient (CLI) | payer MEDICARE, SELFPAY ==
--- NOTE | 2022-02-26 12:32 | RAD_ITS ---
PROCEDURE: Steroid injection - RIGHT HIP REASON FOR EXAM: Female, 66 years old. Hip pain FLUOROSCOPY TIME (if supplied): (0:03) seconds STERILE BARRIER TECHNIQUE: The following sterile barrier precautions were used during the procedure: hand hygiene; use of 2% chlorhexidine aseptic; use of a cap, mask, sterile gown, sterile gloves, sterile full body drape, and a large sterile sheet. PROCEDURE/TECHNIQUE: The risks, benefits, and alternatives to the procedure were explained to patient, and the patient agreed to the procedure and signed a consent form for the procedure. A timeout was performed to confirm the patient''s identity, the type of procedure, to be performed and the site of entry. Injection Information: Mixture containing 1cc betamethasone and 3cc of 1 percent lidocaine. Number of images obtained: 7 TECHNIQUE: Under fluoroscopic guidance using sterile technique and after infiltration of the skin and subcutaneous soft tissues with 10 mL of lidocaine 1% a 22-gauge needle is introduced in the hip joint. 5 mL of air were injected in the hip joint to ensure needle position . The above mentioned mixture was injected in the hip joint. FINDINGS: The joint capsule is normal in size. There is no abnormal opacification of the subdeltoid bursa to suggest a full-thickness rotator cuff tear. There is no evidence of intra-articular loose bodies. The joint capsule is normal in size. There is no intra-articular loose bodies. There is no osteolytic lesions. RAD/Inj/Asp Erich Jt Should/Hip/Knee IMPRESSION: Successful intra-articular steroid injection under fluoroscopic guidance. Electronically Signed: Xiomy Huang MD at 16:35 EDT ,
== END | disposition home or self-care (01) ==
LOC: RAD 12:31
PROVIDERS: PCP Family Medicine; Referring Provider Orthopaedic Surgery; Visit Provider Orthopaedic Surgery
DX: M16.11 Unilateral primary osteoarthritis, right hip (principal); M25.551 Pain in right hip; G89.29 Other chronic pain
CPT/HCPCS: 20610; 77002

== ENCOUNTER → 2022-03-11 | Outpatient (CLI) | payer MEDICARE, SELFPAY ==
--- NOTE | 2022-03-11 13:20 | CT_ITS ---
STUDY: LOW DOSE CT LUNG CANCER SCREENING REASON FOR EXAM: Female, 66 years old. One half pack per day smoker x50 years RADIATION DOSAGE (If Supplied By Facility): CTDIvol = ( 2.39 ) mGy, DLP = ( 79.82 ) mGycm TECHNIQUE: No contrast was administered. Low dose technique was utilized (average mAS-38 and kVp 120). 1.25 mm axial source images with a slice interval of 1.25-mm were reconstructed in lung windows. 2.5 mm axial source images with a slice interval of 2.5-mm were reconstructed in lung windows. 5.0 mm axial source images with a slice interval of 5.0-mm were reconstructed in soft tissue windows. COMPARISON: None. FINDINGS: Lung windows show the lungs to be normally expanded. There is a calcified granuloma in the right lower lobe. There is no superimposed infiltrate, effusion, or suspicious noncalcified mass or nodule. Soft tissue windows show normal-appearing thyroid gland. No suspicious adenopathy, there are calcified coronary vessels. Bony structures show degenerative change, Limited cuts through the upper abdomen do not show a suspicious abnormality. CT/Low Dose CT Lung Screening IMPRESSION: Lung-RADS category 2 - Continue annual screening with LDCT in 12 months. IMPORTANT NOTES FOR USE: ACR Lung-RADS Version 1.1 Assessment Categories Release Date: 2018 Category: Coded 0-4 bases on nodule(s) with highest degree of suspicion. Negative screen is defined as categories 1 and 2; a positive screen is defined as categories 3 and 4. Category 3 and 4A nodules that are unchanged on interval CT should be coded as category 2, and individuals returned to screening in 12 months. Category 4X: Category 3 or 4 nodules with additional imaging findings that increase the suspicion of lung cancer, such as spiculation, GGN that doubles in size in 1 year, enlarged lymph notes, etc. Category Modifiers: S (significant finding unrelated to lung cancer) Electronically Signed: Maurice Lin MD at 13:46 EDT ,
== END | disposition home or self-care (01) ==
LOC: CT 13:19
PROVIDERS: PCP Family Medicine; Referring Provider Internal Medicine Critical Care Medicine; Visit Provider Internal Medicine Critical Care Medicine
DX: Z12.2 Encounter for screening for malignant neoplasm of respiratory organs (principal); R06.00 Dyspnea, unspecified; F17.210 Nicotine dependence, cigarettes, uncomplicated
CPT/HCPCS: 71271

== ENCOUNTER → 2022-05-06 | Outpatient (CLI) | payer MEDICARE, SELFPAY ==
[2022-05-06 14:08] VITALS: PULSE 100; PULSE 102; PULSE 104; PULSE 94; PULSE 95; PULSE 96; PULSE 98; O2SAT 95; O2SAT 98; O2SAT 99
--- NOTE | 2022-05-08 13:13 | PCM.PSN.6M ---
PSN 6 Minute Walk Test 6 Minute Walk Test 6 Minute Walk Test: 6 Minute Walk Test PSN:6-Minute Walk Test Start: 05/06/22 14:08 Freq: Status: Active Protocol: [id number] Document 05/06/22 14:08 FR (Rec: 05/06/22 14:15 FR [id number]) 6 Minute Walk Test Date Performed 05/06/22 Time Performed 13:40 Height 5 ft 5 in Weight: 170 lb Weight in Pounds 170.[address]: DR. GONZALEZ Assistive device used: None Pre-test Oxygen Delivery Method Room Air Pulse Ox (%) 98 Pulse Rate (60-100 beats/min) 94 Dyspnea Cruz Scale (0-10) 4 Exertion Cruz Scale (6-20) 10 1st minute Oxygen Delivery Method Room Air Pulse Ox (%) 98 Pulse Rate (60-100 beats/min) 95 2nd minute Oxygen Delivery Method Room Air Pulse Ox (%) 98 Pulse Rate (60-100 beats/min) 98 3rd minute Oxygen Delivery Method Room Air Pulse Ox (%) 98 Pulse Rate (60-100 beats/min) 100 4th minute Oxygen Delivery Method Room Air Pulse Ox (%) 95 Pulse Rate (60-100 beats/min) 102 H 5th minute Oxygen Delivery Method Room Air Pulse Ox (%) 98 Pulse Rate (60-100 beats/min) 102 H 6th minute Oxygen Delivery Method Room Air Pulse Ox (%) 98 Pulse Rate (60-100 beats/min) 104 H Dyspnea Cruz Scale (0-10) 7 Exertion Cruz Scale (6-20) 13 Post-test Oxygen Delivery Method Room Air Pulse Ox (%) 99 Pulse Rate (60-100 beats/min) 96 Full Laps Walked 21 Partial Lap, Number of Tiles Walked 11 Total Distance Walked (ft) 1250 Interpretation Interpretation: The patient ambulated 1250 feet over the course of 6 minutes beginning on room air without assistive devices. Pretesting oxygen saturation was noted to be 98% on room air. With ambulation, the monik oxygen saturation was 95%. There was no significant exertional oxygen desaturation. Recommendations Recommendations: There is no indication for the use of supplemental oxygen at this time.
== END | disposition home or self-care (01) ==
PROVIDERS: PCP Family Medicine; Visit Provider Internal Medicine Critical Care Medicine
DX: R06.00 Dyspnea, unspecified (principal)
CPT/HCPCS: 94618

== ENCOUNTER → 2022-05-08 | Outpatient (CLI) | payer MEDICARE, SELFPAY ==
--- NOTE | 2022-05-10 10:58 | PFT ---
INTRODUCTION: The patient is a 66-year-old female that presents for pulmonary function studies secondary to a diagnosis of dyspnea. Respiratory therapy reported good patient effort. Bronchodilators were used during testing. INTERPRETATION: Forced expiration spirometry demonstrates no evidence of a large airways obstructive ventilatory defect. There was no significant response to aerosolized bronchodilators. Spirograms are of good quality and plateau normally. Body plethysmography was performed and revealed lung volumes to be within normal limits. Diffusing capacity by single breath CO is also within normal limits. IMPRESSION: Grossly normal pulmonary function studies.
== END | disposition home or self-care (01) ==
PROVIDERS: PCP Family Medicine; Visit Provider Internal Medicine Critical Care Medicine
DX: R06.00 Dyspnea, unspecified (principal)
CPT/HCPCS: 94060; 94726; 94729

== ENCOUNTER 2022-12-26 13:06 | Inpatient (IN) | payer MEDICARE, SELFPAY ==
[2022-12-26 13:08] VITALS: BP 141/89; PULSE 76; RESP 18; TEMP 36.4; O2SAT 100; BMI 29.5
[2022-12-26 13:10] VITALS: PULSE 74; RESP 16; O2SAT 100
--- NOTE | 2022-12-26 13:29 | ED.VIS.CHEST ---
HPI History of Present Illness Chief Complaint: Chest Pain Informant: patient Narrative Narrative: Patient has been having exertional chest discomfort for the past 2 months. Over the past couple weeks it has been with light activity, she has been having episodes of chest discomfort at rest as well. She states when she gets it it is substernal heaviness like someone is sitting on her chest, she gets dyspneic, fatigued with it. Lately it has been with extremely light activity such as walking around the house, changing the sheets on the bed, etc. At time she has had symptoms so severe that she felt like she was going to pass out but has not had that happen. The discomfort is nonpleuritic. She has a cardiac stent that was placed in 2012. She follows with the heart group here and had a stress test last time was last year that was unremarkable. She has not gone to the doctor in the past 2 months until today when she went to urgent care, they did an EKG was it was abnormal and sent her here to the ER. She states walking into the ER with her son the symptoms became quite significant, they are lessened now that she is resting in bed but still present. [facility] Medical History Abdominal pain Altered mental status Anemia Anxiety Atrial fibrillation Atrial fibrillation with rapid ventricular response Carpal tunnel syndrome Chest pain, unspecified Chronic bronchitis Chronic low back pain Colitis Constipation Debility Depression Diverticulitis Encephalopathy Failure of outpatient treatment Fecal impaction of colon GERD (gastroesophageal reflux disease) High cholesterol High triglycerides History of Clostridium difficile infection History of left heart catheterization (LHC) (~02/13/16) HTN (hypertension) Hyperlipidemia Hypokalemia Insomnia Irritable bowel syndrome with constipation Large bowel obstruction Nausea & vomiting Osteoarthritis Restless legs syndrome Rheumatoid arthritis Sepsis Sigmoid diverticulitis Skin ulcer Tobacco dependence syndrome Visual hallucinations Home Medications pantoprazole 40 mg tablet,delayed release 40 mg PO DAILY REFLUX 03/21/17 [History Last Taken 12/25/22] ezetimibe 10 mg tablet 10 mg PO DAILY 01/27/19 [History Last Taken 12/25/22] acetaminophen 500 mg tablet 1,000 mg (2 x 500 mg) PO Q6H PRN PRN Pain Score 1-3/09/20/19 [Rx Last Taken Unknown] atorvastatin 80 mg tablet 80 mg PO QHS #30 tabs 09/20/19 [Rx Last Taken 12/25/22] fenofibrate 54 mg tablet 54 mg PO DAILY 04/18/20 [History Last Taken 12/25/22] diltiazem HCl 180 mg capsule,extended release 24 hr 180 mg PO DAILY #90 caps 05/08/22 [Rx Last Taken 12/25/22] sucralfate 1 gram tablet 1 g PO TID PRN stomachache 05/08/22 [History Last Taken 12/25/22] memantine 2 mg/mL oral solution 5 mg (2.5 mL) PO BID #450 mL 08/12/22 [Rx Last Taken 12/25/22] nitroglycerin 0.4 mg sublingual tablet 0.4 mg sublingual Q5-15M PRN chest pain #25 tabs 11/11/22 [Rx Last Taken Unknown] fluoxetine 40 mg capsule 40 mg PO DAILY #90 caps 11/13/22 [Rx Last Taken 12/25/22] aspirin 81 mg tablet,delayed release (Adult Aspirin Regimen) 81 mg PO DAILY 12/26/22 [History Last Taken 12/25/22] galantamine 4 mg/mL oral solution 10 mg PO BID 12/26/22 [History Last Taken 12/25/22] hydrochlorothiazide 12.5 mg capsule 12.5 mg PO DAILY 12/26/22 [History Last Taken 12/25/22] latanoprost 0.005 % eye drops 1 drp ophthalmic (eye) QHS 12/26/22 [History Last Taken 12/25/22] metformin 500 mg tablet,extended release 24 hr 500 mg PO DAILY DM 12/26/22 [History Last Taken 12/25/22] mirtazapine 30 mg tablet 30 mg PO QHS 12/26/22 [History Last Taken 12/25/22] mometasone 50 mcg/actuation nasal spray 1 - 2 spray intranasal Q12H ALLERGIES 12/26/22 [History Last Taken Unknown] polyethylene glycol 400 1 % eye drops (Visine Dry Eye Relief) 1 - 2 drp EACH EYE Q4H PRN dry eye(s) 12/26/22 [History Last Taken 12/25/22] Allergy/AdvReac Type Severity Reaction Status Date / Time bee venom protein (honey bee) Allergy Anaphylaxis Verified 12/26/22 13:14 Ufyezzn-[id number]-PdO Reductase AdvReac Severe Myalgias Verified 12/26/22 13:14 Inhibitor promethazine HCl AdvReac Vomiting Verified 12/26/22 13:14 [From Phenergan] tuberculin, purified protein AdvReac Swelling Verified 12/26/22 13:14 deriva Family History Mother Heart disease Myocardial infarction CVA (cerebral vascular accident) Sister Diabetes Brother Parkinson disease Surgical History Cataract extraction status of left eye History of cardioversion (09/02/19) History of cholecystectomy History of colostomy History of creation of ostomy History of hand surgery History of hysterectomy History of laparoscopy History of partial colectomy Social History Smoking Status: Current some day smoker tobacco type: cigarettes Tobacco: How many years used: 40 alcohol intake: never substance use type: does not use caffeine: Yes Type: carbonated beverages and coffee what type of physical activity do you participate in: walking frequency: 1-2 times per week brandon/temple: Rastafarian seatbelt use: always ROS ROS ED Constitutional Constitutional ED: Reports fatigue; Denies chills or fever(s) Eyes Eyes: Denies change in vision or diplopia ENT ENT ED: Denies rhinorrhea or sore throat Cardiovascular Cardiovascular: Reports chest pain; Denies palpitations Respiratory/Chest Respiratory/Chest: Reports dyspnea on exertion; Denies cough or dyspnea Gastrointestinal Gastrointestinal: Denies abdominal pain, diarrhea, nausea or vomiting Genitourinary Genitourinary ED: Denies dysuria or hematuria Musculoskeletal Musculoskeletal: Denies back pain or neck pain Integumentary Denies abscess or rash Neurologic Neurologic: Denies headache(s), paresthesias or weakness Psychiatric Psychiatric: Denies anxiety or suicidal thoughts EXAM Physical Exam Const Vital Signs: 12/26/22 13:08 12/26/22 13:10 12/26/22 14:01 Temperature 97.6 F L Temperature Source Oral Pulse Rate 76 74 Respiratory Rate 18 16 Blood Pressure 141/89 H Blood Pressure Mean 106 Pulse Ox 100 100 Oxygen Delivery Method Room Air Room Air Room Air Positive well nourished and well developed General Appearance ED: well developed and NAD HEENT Reports moist mucous membranes normocephalic and atraumatic Eyes PERRL and EOMs intact bilaterally Neck full ROM and supple Resp normal respiratory effort and clear to auscultation bilaterally Cardio regular rate, regular rhythm and no murmurs GI non-distended GI Narrative: Epigastric tenderness no pulsatile mass palpable; that is my hiatal hernia Auscultation: normoactive bowel sounds Palpation: soft Back/Spine no CVA tenderness General Back: other FROM Extremity normal to inspection and no calf tenderness General Extremety ED: Negative for edema, pulses abnormal or tenderness General Extremity: Negative for edema or pulses abnormal Neuro oriented x3, CN's II-XII intact bilaterally and no sensory deficits noted Sensorium / Orientation: awake and alert Motor Exam: strength 5/5 throughout Skin no rashes or lesions noted and no wounds Heart Score History: Highly Suspicious ECG: Nonspecific Repolarization Age: >/= 65 years Risk Factors: >/= 3 Risk Factors or History of CAD Troponin: </= Normal Limit Score: 7 MDM MDM MDM Narrative Medical decision making narrative: Patient feeling better with nitroglycerin, but obtained a significant headache which we treated with Tylenol so she did not want anymore, discomfort is barely there. Her potassium came back very low at 2.6, and she is in acute renal failure which is new. In addition, her troponin returned normal. It is possible some of her EKG changes are related to her potassium but my suspicion is that it truly is acute coronary syndrome. I discussed with Dr. Hills who advises putting her on heparin, and he will see her in consultation. Will admit to hospitalist service. She is clinically and hemodynamically stable at this time. Lab Data Attestation: I reviewed the patient's lab results. Labs: Laboratory Results - last 24 hr 12/26/22 13:46 WBC 9.3 RBC 3.98 L Hgb 11.7 L Hct 34.4 L MCV 86.4 MCH 29.4 MCHC 34.0 RDW Std Deviation 40.9 RDW Coeff of Wilmar 13.1 Plt Count 278 MPV 11.9 Immature Gran % (Auto) 0.600 Neut % (Auto) 65.0 Lymph % (Auto) 23.9 Otoe % (Auto) 8.4 Eos % (Auto) 1.7 Baso % (Auto) 0.4 Absolute Neuts (auto) 6.0 Absolute Lymphs (auto) 2.21 Nucleated RBC % 0 APTT 25.2 Sodium 136 Potassium 2.6 L* Chloride 103 Carbon Dioxide 18.0 L Anion Gap 15 BUN 80 H Creatinine 5.53 H Estim Creat Clear Calc 6.99 Est GFR (MDRD) Af Amer 10 L Est GFR (MDRD) Non-Af 8 L BUN/Creatinine Ratio 14.5 Glucose 94 Calcium 8.4 L Troponin I High Sens 20 Radiography Diagnostic Testing: Clinical Impression(s) from Imaging Studies Chest X-Ray 12/26/22 13:52 IMPRESSION: No acute abnormality is seen. Electronically Signed: Delta Medina MD at 14:07 EDT , Rhythm Strip Rhythm Strip: Sinus Rhythm Rate: 72 Ectopy: None EKG Initial EKG: Attestation: I personally reviewed and interpreted this EKG as follows: Interpretation: Sinus Rhythm, Inverted T-Waves (sept-lat and inf leads) and S-T Depression (less than 1mm sept-lat and inf leads) Prior EKG tracings: available for review Prior: Changed Management Discussion w/another healthcare provider: Hospitalist and Exchange Trouble Shooter (Cardiology) Critical Care Time Critical Care Time: Yes Critical care time (excluding procedures): 30-74 minutes (33 min), Including time spent:, Discussing w/Patient &/or Family/Boxing And Pressing Supervisor, Discussing w/Consultants, Arranging Admission or Transfer and Performing Direct Patient Care at Bedside Discharge Plan Dx/Rx/DC Orders Clinical Impression: Unstable angina, Acute renal failure, Hypokalemia Disposition Disposition: Acute Care [facility]
--- NOTE | 2022-12-26 13:30 | EKG12_ITS ---
Test Reason : CP Blood Pressure : / mmHG Vent. Rate : 072 BPM Atrial Rate : 072 BPM P-R Int : 130 ms QRS Dur : 072 ms QT Int : 364 ms P-R-T Axes : 059 040 258 degrees QTc Int : 398 ms Normal sinus rhythm ST & T wave abnormality, consider inferior ischemia ST & T wave abnormality, consider anterolateral ischemia Abnormal ECG Confirmed by MARY CHACKO, GARETT ([id number]), video news editor MARYBETH ALBERTO ([id number]) on 12/30/2022 1:03:12 PM Referred By: Confirmed By:POLINA HERNANDEZ MD
[2022-12-26] MEDS: Aspirin 81 MG TAB.CHEW 324 MG PO (13:43)
[2022-12-26] MEDS: 0.9% Normal Saline 1,000 ML 1000 ML IV (13:43)
--- NOTE | 2022-12-26 13:52 | RAD_ITS ---
STUDY: X-RAY CHEST REASON FOR EXAM: Female, 67 years old. Chest pain TECHNIQUE: Single AP portable view of the chest. COMPARISON: Comparison is made with prior study dated September 17, 2019. FINDINGS: EKG electrodes are seen. Hyperinflation. Stable calcified granuloma in the right mid lung. No acute abnormality is seen. There is no demonstrated pleural abnormality. Normal size heart. Normal mediastinum and rai. Normal visualized pulmonary arteries. There is atherosclerotic calcification of the aortic arch with tortuosity. Normal visualized thoracic spine. Once again, a metallic anchors seen overlying the left humeral head suggestive of prior rotator cuff surgery. There is no demonstrated abnormality of the visualized soft tissue structures of the upper abdomen. RAD/Chest 1 View (Portable) IMPRESSION: No acute abnormality is seen. Electronically Signed: Delta Medina MD at 14:07 EDT ,
[2022-12-26 14:01] LABS: Absolute Lymphocyte Count 2.21 X10^3/uL (0.83-4.51); Basophil# 0.04 X10^3/uL; Basophil% 0.4 % (0-1); Eosinophil# 0.16 X10^3/uL; Eosinophils% 1.7 % (0-5); Hematocrit 34.4 % (37-47); Hemoglobin 11.7 g/dL (12.0-15.0); Lymphocyte # 2.21 X10^3/ul (0.83-4.51); Lymphocyte % 23.9 % (19-41); Mean Corpuscular Hgb 29.4 pg (27.0-32.0); Mean Corpuscular Volume 86.4 fL (81-99); Mean Platelet Vol. 11.9 fl (6.2-12.0); Monocyte# 0.78 X10^3/uL; Monocyte% 8.4 % (0-10); NRBC Flagged by Analyzer 0 % (0-5); Neutrophil # 6.01 X10^3/uL (2.7-7.7); Platelet Count 278 K/mm3 (150-450); RBC Distribution Width CV 13.1 % (11.6-14.6); RBC Distribution Width SD 40.9 fl (35.1-43.9); Red Blood Count 3.98 M/mm3 (4.2-5.4); White Blood Count 9.3 K/mm3 (4.4-11.0)
[2022-12-26 14:10] LABS: Partial Thromboplast Time 25.2 Seconds (24.1-36.2)
[2022-12-26 14:27] LABS: Anion Gap 15 (5-15); BUN 80 mg/dL (7-18); BUN/Creat Ratio 14.5 RATIO (10-20); Calcium,Total 8.4 mg/dL (8.5-10.1); Chloride 103 mmol/L (98-107); Creatinine, Serum 5.53 mg/dL (0.55-1.02); EST Glomerular Filtration Rate 8 mL/min (>60); Est Glom Filt Rate - Afr Amer 10 mL/min (>60); Estimated Creatinine Clearance 6.99 ml/min; Glucose 94 mg/dL (74-106); Potassium 2.6 mmol/L (3.5-5.1); Sodium Level 136 mmol/L (136-145); Troponin-I HS (w/2H Reflex) 20 pg/mL (3.0-54.0)
[2022-12-26] MEDS: Acetaminophen 500 MG Tablet 1000 MG PO (15:12)
[2022-12-26] MEDS: Potassium Chloride Oral Tablet 20 MEQ 40 MEQ PO ×2 (15:13→20:05)
[2022-12-26] MEDS: Heparin Injection (Vial) 5,000 UNIT/ML VIAL 4000 UNIT IV (15:14)
--- NOTE | 2022-12-26 15:21 | NURSING ---
DR BISHOP FOR DR ORNELAS
[2022-12-26] MEDS: Potassium Chloride 10mEq/100mL 10 MEQ/100 ML IV.SOLN. 100 MEQ IV BOLUS (15:39)
[2022-12-26 15:51] LABS: Reflex Troponin-HS? (from REC) Y
--- NOTE | 2022-12-26 15:53 | NURSING ---
BETTYU EDNA UNSTABLE ANGINA, ARK, HYPOK
[2022-12-26 15:59] VITALS: BP 140/109; PULSE 71; RESP 19; TEMP 36.6; O2SAT 100
[2022-12-26] MEDS: HEPARIN/D5w 25,000 UNITS 25,000 UNITS/250 ML IV.SOLN. 8 UNITS CONT INF (16:34)
[2022-12-26 17:05] VITALS: BP 147/65; PULSE 72; RESP 16; TEMP 36.7; O2SAT 100; BMI 24.9
[2022-12-26 17:05] LABS: Troponin-I HS 21 pg/mL (3.0-54.0)
--- NOTE | 2022-12-26 18:39 | US_ITS ---
EXAM: US RETROPERITONEAL LIMITED, RENAL CLINICAL INDICATION: renal failure TECHNIQUE: Limited grayscale and color Doppler sonographic evaluation of the retroperitoneum was performed. COMPARISON: No relevant prior studies available. FINDINGS: RIGHT KIDNEY: Right kidney measures 8.9 x 4.5 x 4.5 cm. The right renal cortex measures 1.2 cm. No hydronephrosis. No shadowing calculus. No perinephric collection is demonstrated. LEFT KIDNEY: The left kidney measures 9.0 x 4.5 x 3.5 cm. The left renal cortex measures 1.1 cm. No hydronephrosis. No shadowing calculus. No perinephric collection is demonstrated. BLADDER: The bladder measures 4.9 x 2.5 x 7.0 cm for a volume of 44 mL. The bladder wall measures 3 mm. US/Kidney and Bladder IMPRESSION: No acute findings in the retroperitoneum. Electronically Signed: Arden Jameson MD at 19:31 EDT ,
[2022-12-26 19:26] LABS: Cholesterol 97 mg/dL (200); High Density Lipoprotein 46 mg/dL; Triglycerides 75 mg/dL; Very Low Density Lipoprotein 15 mg/dL (5-40)
[2022-12-26] MEDS: Isosorbide Mononitrate 30 MG Tablet PO (20:05)
[2022-12-26] MEDS: KCL 20MEQ in 0.9% NS 20 MEQ/1,000 ML IV.SOLN. 125 MEQ IV (20:06)
[2022-12-26] MEDS: 0.9% Saline Lock 10 ML Syringe IV (20:06)
--- NOTE | 2022-12-26 20:15 | PCM.HP.STD ---
HPI - General General Date of Admission: 12/26/22 Date of Service: 12/26/22 Chief Complaint: Intermittent chest pain HPI Narrative TY HOFF, is a 67 F who presents to the emergency room at [facility] with complaints of intermittent chest pain which has worsened over the last 2 months. She was sent in from her PCPs office due to concerns of EKG changes indicating possible ischemia. She states with minimal exertion she gets precordial chest discomfort which she describes as pressure-like in nature, she has a past history of coronary artery disease and stent placement in 2012-patient states it was 2013 but the medical record indicates it was 2012, she also states she had a heart catheterization done in 2015 but did not require any intervention. She has not been following up with a apartment house manager on a frequent basis. Work-up in the emergency room included an EKG which showed nonspecific ST-T wave changes in the anterior precordial leads, she appeared to be in sinus rhythm, chest x-ray showed no abnormality, troponin was unremarkable, patient's creatinine however was elevated at 5.53 with a BUN of 80, her potassium was also low at 2.6. Patient's last creatinine was obtained in her physician's office in October of this year and her creatinine was 1.14. Patient has a history of essential hypertension, hyperlipidemia, and mild dementia. Patient was admitted to PCU, she was placed on a heparin drip after cardiology was contacted by the emergency room physician discussed the case. Patient will be given IV fluids due to her elevated creatinine and will be given potassium replacement. Patient will undergo a renal ultrasound to rule out obstruction, I briefly discussed the case with cardiology today. [facility] Medical History Abdominal pain Altered mental status Anemia Anxiety Atrial fibrillation Atrial fibrillation with rapid ventricular response Carpal tunnel syndrome Chest pain, unspecified Chronic bronchitis Chronic low back pain Colitis Constipation Debility Depression Diverticulitis Encephalopathy Failure of outpatient treatment Fecal impaction of colon GERD (gastroesophageal reflux disease) High cholesterol High triglycerides History of Clostridium difficile infection History of left heart catheterization (LHC) (~02/13/16) HTN (hypertension) Hyperlipidemia Hypokalemia Insomnia Irritable bowel syndrome with constipation Large bowel obstruction Nausea & vomiting Osteoarthritis Restless legs syndrome Rheumatoid arthritis Sepsis Sigmoid diverticulitis Skin ulcer Tobacco dependence syndrome Visual hallucinations Home Medications pantoprazole 40 mg tablet,delayed release 40 mg PO DAILY REFLUX 03/21/17 [History Last Taken 12/25/22] ezetimibe 10 mg tablet 10 mg PO DAILY 01/27/19 [History Last Taken 12/25/22] acetaminophen 500 mg tablet 1,000 mg (2 x 500 mg) PO Q6H PRN PRN Pain Score 1-3/10 09/20/19 [Rx Last Taken Unknown] atorvastatin 80 mg tablet 80 mg PO QHS #30 tabs 09/20/19 [Rx Last Taken 12/25/22] fenofibrate 54 mg tablet 54 mg PO DAILY 04/18/20 [History Last Taken 12/25/22] diltiazem HCl 180 mg capsule,extended release 24 hr 180 mg PO DAILY #90 caps 05/08/22 [Rx Last Taken 12/25/22] sucralfate 1 gram tablet 1 g PO TID PRN stomachache 05/08/22 [History Last Taken 12/25/22] memantine 2 mg/mL oral solution 5 mg (2.5 mL) PO BID #450 mL 08/12/22 [Rx Last Taken 12/25/22] nitroglycerin 0.4 mg sublingual tablet 0.4 mg sublingual Q5-15M PRN chest pain #25 tabs 11/11/22 [Rx Last Taken Unknown] fluoxetine 40 mg capsule 40 mg PO DAILY #90 caps 11/13/22 [Rx Last Taken 12/25/22] aspirin 81 mg tablet,delayed release (Adult Aspirin Regimen) 81 mg PO DAILY 12/26/22 [History Last Taken 12/25/22] galantamine 4 mg/mL oral solution 10 mg PO BID 12/26/22 [History Last Taken 12/25/22] hydrochlorothiazide 12.5 mg capsule 12.5 mg PO DAILY 12/26/22 [History Last Taken 12/25/22] latanoprost 0.005 % eye drops 1 drp ophthalmic (eye) QHS 12/26/22 [History Last Taken 12/25/22] metformin 500 mg tablet,extended release 24 hr 500 mg PO DAILY DM 12/26/22 [History Last Taken 12/25/22] mirtazapine 30 mg tablet 30 mg PO QHS 12/26/22 [History Last Taken 12/25/22] mometasone 50 mcg/actuation nasal spray 1 - 2 spray intranasal Q12H ALLERGIES 12/26/22 [History Last Taken Unknown] polyethylene glycol 400 1 % eye drops (Visine Dry Eye Relief) 1 - 2 drp EACH EYE Q4H PRN dry eye(s) 12/26/22 [History Last Taken 12/25/22] Allergy/AdvReac Type Severity Reaction Status Date / Time bee venom protein (honey bee) Allergy Anaphylaxis Verified 12/26/22 13:14 [id number] Reductase AdvReac Severe Myalgias Verified 12/26/22 13:14 Inhibitor promethazine HCl AdvReac Vomiting Verified 12/26/22 13:14 [From Phenergan] tuberculin, purified protein AdvReac Swelling Verified 12/26/22 13:14 deriva Family History Mother Heart disease Myocardial infarction CVA (cerebral vascular accident) Sister Diabetes Brother Parkinson disease Surgical History Cataract extraction status of left eye History of cardioversion (09/02/19) History of cholecystectomy History of colostomy History of creation of ostomy History of hand surgery History of hysterectomy History of laparoscopy History of partial colectomy Social History Smoking Status: Current some day smoker tobacco type: cigarettes Tobacco: How many years used: 40 alcohol intake: never substance use type: does not use caffeine: Yes Type: carbonated beverages and coffee what type of physical activity do you participate in: walking frequency: 1-2 times per week brandon/yarsanism: Syn[employer] seatbelt use: always ROS Constitutional Constitutional: Denies anorexia, change in weight, chills, fatigue, fever(s), malaise, night sweats or weakness Eyes Eyes: Denies blurry vision, change in vision, discharge from eye(s) or eye pain Cardiovascular Cardiovascular: Reports chest pain; Denies claudication, dyspnea on exertion, edema, lightheadedness, orthopnea or palpitations Respiratory/Chest Respiratory/Chest: Denies cough, dyspnea, excessive phlegm production, hemoptysis, productive cough, shortness of breath at rest or shortness of breath with exertion Gastrointestinal Gastrointestinal: Denies abdominal pain, constipation, diarrhea, hematemesis, hematochezia, melena, nausea or vomiting Genitourinary Genitourinary: Denies dysuria, hematuria, urinary frequency, urinary hesitancy, urinary incontinence or urinary urgency Musculoskeletal Musculoskeletal: Denies back pain, joint pain, joint stiffness, joint swelling, myalgias or neck pain Neurologic Neurologic: Reports numbness; Denies abnormal gait, abnormal speech, dizziness, focal weakness, headache(s), loss of vision, other visual disturbances, paresthesias, syncope or tingling Psychiatric Psychiatric: Reports anxiety, cognitive impairment and depression; Denies irritability, mood swings or suicidal ideation Endocrine Endocrinology: Denies change in body appearance, cold intolerance, excessive sweating, heat intolerance, polydipsia or polyuria Hematologic/Lymphatic Hematologic/Lymphatic: Denies none, anemia, easy bleeding, easy bruising or lymphadenopathy Allergic/Immunologic Allergic/Immunologic: Denies rhinitis, urticaria, eczemia or asthma Vital Signs Vital Signs Vital Signs: 12/26/22 13:08 12/26/22 13:10 12/26/22 14:01 Temperature 97.6 F L Temperature Source Oral Pulse Rate 76 74 Respiratory Rate 18 16 Blood Pressure 141/89 H Blood Pressure Mean 106 Blood Pressure Source Blood Pressure Position Blood Pressure Location Pulse Ox 100 100 Oxygen Delivery Method Room Air Room Air Room Air 12/26/22 15:59 12/26/22 17:05 Temperature 98 F 98.0 F Temperature Source Temporal Oral Pulse Rate 71 72 Respiratory Rate 19 H 16 Blood Pressure 140/109 H 147/65 H Blood Pressure Mean 119 92 Blood Pressure Source Monitor Blood Pressure Position Semi-Fowlers Blood Pressure Location Right Arm Pulse Ox 100 100 Oxygen Delivery Method Room Air Room Air Weight Weight: 67.9 kg Body Mass Index (BMI) 24.9 Physical Exam Const alert, oriented x3, no apparent distress, average body habitus and healthy appearing General Appearance: cooperative, well kempt and well developed Orientation / Consciousness: awake, oriented to person, oriented to place and oriented to time HEENT normocephalic and moist oral mucous membranes Eyes PERRL, EOMs intact bilaterally and conjunctivae normal Neck supple, no JVD, thyroid normal and no carotid bruits General: trachea midline Resp normal respiratory effort, no retractions, no use of accessory muscles and clear to auscultation bilaterally Auscultation: Negative for rales, rhonchi or wheezes Cardio regular rate, regular rhythm, S1 normal heart sound, S2 normal heart sound, no murmurs, no rub and no gallops GI normal to inspection, nondistended, normoactive bowel sounds, soft to palpation, non-tender and non-distended GI Narrative: Colostomy is present Extremity no clubbing, cyanosis or edema Skin no rashes or lesions noted General Skin Exam: no breakdown Neuro oriented x3, CN's II-XII intact bilaterally, moves all extremities and no focal motor deficits Neuro Narrative: Patient has some mild sensory deficit over the anterior and lateral aspect of her right lower plasencia area extending into her right foot on the dorsal aspect Sensorium / Orientation: awake, alert, oriented to person, oriented to place and oriented to time Speech: speech normal Psych affect normal Results Lab / Micro Data 12/26/22 13:46 12/26/22 13:46 Labs: Laboratory Results - last 24 hr 12/26/22 13:46: WBC 9.3, RBC 3.98 L, Hgb 11.7 L, Hct 34.4 L, MCV 86.4, MCH 29.4, MCHC 34.0, RDW Std Deviation 40.9, RDW Coeff of Wlimar 13.1, Plt Count 278, MPV 11.9, Immature Gran % (Auto) 0.600, Neut % (Auto) 65.0, Lymph % (Auto) 23.9, Crowley % (Auto) 8.4, Eos % (Auto) 1.7, Baso % (Auto) 0.4, Absolute Neuts (auto) 6.0, Absolute Lymphs (auto) 2.21, Nucleated RBC % 0, APTT 25.2, Sodium 136, Potassium 2.6 L*, Chloride 103, Carbon Dioxide 18.0 L, Anion Gap 15, BUN 80 H, Creatinine 5.53 H, Estim Creat Clear Calc 6.99, Est GFR (MDRD) Af Amer 10 L, Est GFR (MDRD) Non-Af 8 L, BUN/Creatinine Ratio 14.5, Glucose 94, Calcium 8.4 L, Troponin I High Sens 20 12/26/22 16:30: Troponin I High Sens 21, Triglycerides 75, Cholesterol 97, LDL Cholesterol 36, VLDL Cholesterol 15, HDL Cholesterol 46 Rhythm Strip Rhythm Strip: Sinus Rhythm Rate: 72 Ectopy: None Radiology Impression Chest X-Ray 12/26/22 13:52 IMPRESSION: No acute abnormality is seen. Electronically Signed: Delta Medina MD at 14:07 EDT , Renal Ultrasound 12/26/22 18:39 IMPRESSION: No acute findings in the retroperitoneum. Electronically Signed: Arden Jameson MD at 19:31 EDT , Assessment & Plan Assessment/Plan (1) Acute renal failure: PLAN: Plan 1. Unstable angina-patient will be admitted to PCU, she will be maintained on a heparin drip, an echocardiogram will be obtained tomorrow, cardiac enzymes will be cycled, she will be seen in consultation by cardiology. I have added a beta-ingris as well as long-acting nitrate. Patient's lipid profile will be drawn #2 acute renal failure-etiology unclear at this point, patient will be given IV fluids and undergo an ultrasound of her kidneys, labs will be monitored #3 essential hypertension-patient will remain on her present medications #4 hyperlipidemia-patient will remain on her lipid medications #5 mild dementia-patient will remain on her dementia medications #6 chronic depression/anxiety-patient will remain on her antidepressant #7 type 2 diabetes-patient is on metformin at home, this will be held due to her renal function #8 hypokalemia-etiology unclear, patient will be given potassium supplementation, labs will be rechecked tomorrow #9 GERD-patient will be kept on a PPI Total clinical time spent by myself addressing patient's medical issues, reviewing all of her data, and collaborating with patient's care team: 75 minutes Charges/Coding Visit Charges Inpatient E&M: 95044 Init Hosp L3
[2022-12-26 20:57] LABS: Troponin-I HS 27 pg/mL (3.0-54.0)
[2022-12-26 22:53] LABS: Partial Thromboplast Time 112.7 Seconds (24.1-36.2)
[2022-12-26 23:12] VITALS: BP 111/62; PULSE 69; RESP 18; TEMP 36.5; O2SAT 99
[2022-12-26] MEDS: Latanoprost 0.005% 1 Bottle 1 DRP OPHTHALMIC (23:16)
[2022-12-26 23:17] VITALS: PULSE 69
[2022-12-26] MEDS: Metoprolol Tartrate 25 MG Tablet 12.5 MG PO (23:17)
[2022-12-26] MEDS: Atorvastatin Calcium 80 MG Tablet PO (23:18)
[2022-12-26] MEDS: Mirtazapine 30 MG Tablet PO (23:18)
[2022-12-26] MEDS: Memantine Hydrochloride 5 MG Tablet PO (23:18)
[2022-12-27] MEDS: Acetaminophen 325 MG Tablet 650 MG PO ×2 (00:56→11:54)
[2022-12-27 04:27] VITALS: BP 108/70; PULSE 56; RESP 17; TEMP 36.5; O2SAT 99
[2022-12-27] MEDS: KCL 20MEQ in 0.9% NS 20 MEQ/1,000 ML IV.SOLN. 125 MEQ IV (04:34)
--- NOTE | 2022-12-27 05:55 | ECHOD_ITS ---
Reason For Study: CHEST PAIN Procedure This was a 2D Doppler, Color Flow transthoracic echocardiogram. Exam performed portable in patient room. Left Ventricle Normal LV size. The estimated ejection fraction is 65 %. Normal diastololic function. No regional wall motion abnormalities noted. Right Ventricle Normal RV size. Normal systolic function. Atria The left atrium is mildly enlarged. Normal right atrium. No doppler evidence for ASD. Mitral Valve There is no mitral valve stenosis. No mitral valve insufficiency. Tricuspid Valve There is no tricuspid stenosis. Trivial tricuspid valve insufficiency. Unable to estimate RV systolic pressure due to insufficient tricuspid regurgitant envelope. Aortic Valve Trisinus/trileaflet aortic valve. Aortic sclerosis, no stenosis. There is no aortic stenosis. No aortic valve insufficiency. Pulmonic Valve There is no pulmonic valvular stenosis. No pulmonic valve insufficiency. Great Vessels Normal aortic root. Pericardium/Pleural No pericardial effusion. MMode/2D Measurements & Calculations LVIDd: 4.7 cm IVSd: 1.0 cm Ao root diam: 2.9 cm LVIDs: 3.1 cm LVPWd: 1.0 cm RVDd: 3.1 cm FS: 35.1 % LAV(MOD-bp): 51.1 ml LVAd ap4: 23.2 cm2 SV(MOD-sp4): 39.9 ml LAV(MOD-bp) Indexed: 29.3 ml/m2 LVLd ap4: 6.9 cm LAV(MOD-sp2): 45.4 ml EDV(MOD-sp4): 63.0 ml LAV(MOD-sp4): 45.2 ml EDV(sp4-el): 66.2 ml LVAs ap4: 12.5 cm2 LVLs ap4: 5.8 cm ESV(MOD-sp4): 23.2 ml ESV(sp4-el): 22.8 ml EF(MOD-sp4): 63.3 % EF(sp4-el): 65.6 % SV(sp4-el): 43.5 ml LA A4 area: 18.7 cm2 LA dimension(2D): 3.7 cm RA A4 area: 15.7 cm2 Time Measurements MV dec time: 0.25 sec Doppler Measurements & Calculations MV E max pineda: 110.4 cm/sec Lat Peak E' Pineda: 9.6 cm/sec Med Peak E' Pineda: 8.7 cm/sec MV A max pineda: 124.8 cm/sec E/E' lat: 11.5 E/E' med: 12.6 MV E/A: 0.88 Ao V2 max: 174.4 cm/sec LV V1 max: 130.8 cm/sec PA V2 max: 86.7 cm/sec Ao max P.2 mmHg LV V1 max P.9 mmHg TR max pineda: 302.5 cm/sec TR max P.6 mmHg ECHO/Echo Complete Interpretation Summary The estimated ejection fraction is 65 %. The left atrium is mildly enlarged. Ordering Physician: Sarath Ceja Referring Physician: ARASELI AMADOR Performed By: Kim Sanchez RDCS
[2022-12-27 07:39] LABS: Anion Gap 9 (5-15); BUN 62 mg/dL (7-18); BUN/Creat Ratio 14.7 RATIO (10-20); Calcium,Total 7.4 mg/dL (8.5-10.1); Chloride 115 mmol/L (98-107); Creatinine, Serum 4.22 mg/dL (0.55-1.02); EST Glomerular Filtration Rate 11 mL/min (>60); Est Glom Filt Rate - Afr Amer 13 mL/min (>60); Estimated Creatinine Clearance 11.48 ml/min; Glucose 101 mg/dL (74-106); Potassium 3.4 mmol/L (3.5-5.1); Sodium Level 141 mmol/L (136-145)
[2022-12-27 07:42] LABS: Partial Thromboplast Time 48.1 Seconds (24.1-36.2)
[2022-12-27 09:01] VITALS: BP 115/61; PULSE 63; RESP 16; TEMP 36.5; O2SAT 100
[2022-12-27] MEDS: Isosorbide Mononitrate 30 MG Tablet PO (09:06)
[2022-12-27] MEDS: dilTIAZem CD 180 MG Capsule PO (09:06)
[2022-12-27] MEDS: Pantoprazole Sodium 40 MG Tablet PO (09:06)
[2022-12-27] MEDS: Ezetimibe 10 MG Tablet PO (09:06)
[2022-12-27] MEDS: Aspirin E.C. 81 MG Tablet PO (09:06)
[2022-12-27] MEDS: Fluoxetine HCl 40 MG CAPSULE PO (09:06)
[2022-12-27 09:07] VITALS: PULSE 63
[2022-12-27] MEDS: Memantine Hydrochloride 5 MG Tablet PO (09:07)
[2022-12-27] MEDS: Metoprolol Tartrate 25 MG Tablet 12.5 MG PO (09:07)
[2022-12-27] MEDS: Galantamine Hydrobromide 4 MG Tablet 10 MG PO ×2 (09:08→17:25)
[2022-12-27 09:11] VITALS: O2SAT 100
[2022-12-27] MEDS: KCL 20MEQ in 0.9% NS 20 MEQ/1,000 ML IV.SOLN. 150 MEQ IV ×2 (11:55→19:00)
[2022-12-27 14:18] LABS: Partial Thromboplast Time 66.4 Seconds (24.1-36.2)
--- NOTE | 2022-12-27 15:04 | CON.PCM.CA_ITS ---
Assessment & Plan Assessment/Plan (1) Unstable angina: PLAN: Patient appears to have unstable angina. She will eventually need coronary angiography. However it is better to wait till her creatinine comes back to normal prior to proceeding with coronary angiography. Her acute kidney failure is being addressed by the primary service at this time. It is reasonable to discontinue IV heparin. HPI Consult Data Date of Consult: 12/27/22 HPI Narrative Reason for Consultation: Chest pain HPI Narrative: TY HOFF, is a 67 F who presents with chest pain that has been progressively getting worse over the last 2 months. Chest pain is retrosternal, pressure-like occurs with exertion. She has been getting it with lesser degrees of exertion over the last few weeks. Patient had a stent in 2013 and states that her chest pain feels similar to what she had prior to the stent placement. Patient was found to have acute renal failure with a creatinine of over 5. With IV fluids this has come down a little bit. Patient was recently started on hydrochlorothiazide and she states that she does not drink that much water. Her troponin was negative x3 and a 2D echo revealed normal systolic function with no significant regional wall motion abnormalities. Review of systems: All systems reviewed. All else is negative except that in [facility] Medical History Abdominal pain Altered mental status Anemia Anxiety Atrial fibrillation Atrial fibrillation with rapid ventricular response Carpal tunnel syndrome Chest pain, unspecified Chronic bronchitis Chronic low back pain Colitis Constipation Debility Depression Diverticulitis Encephalopathy Failure of outpatient treatment Fecal impaction of colon GERD (gastroesophageal reflux disease) High cholesterol High triglycerides History of Clostridium difficile infection History of left heart catheterization (LHC) (~02/13/16) HTN (hypertension) Hyperlipidemia Hypokalemia Insomnia Irritable bowel syndrome with constipation Large bowel obstruction Nausea & vomiting Osteoarthritis Restless legs syndrome Rheumatoid arthritis Sepsis Sigmoid diverticulitis Skin ulcer Tobacco dependence syndrome Visual hallucinations Home Medications pantoprazole 40 mg tablet,delayed release 40 mg PO DAILY REFLUX 03/21/17 [History Last Taken 12/25/22] ezetimibe 10 mg tablet 10 mg PO DAILY 01/27/19 [History Last Taken 12/25/22] acetaminophen 500 mg tablet 1,000 mg (2 x 500 mg) PO Q6H PRN PRN Pain Score 1- 3/09/20/19 [Rx Last Taken Unknown] atorvastatin 80 mg tablet 80 mg PO QHS #30 tabs 09/20/19 [Rx Last Taken 12/25/22] fenofibrate 54 mg tablet 54 mg PO DAILY 04/18/20 [History Last Taken 12/25/22] diltiazem HCl 180 mg capsule,extended release 24 hr 180 mg PO DAILY #90 caps 05/08/22 [Rx Last Taken 12/25/22] sucralfate 1 gram tablet 1 g PO TID PRN stomachache 05/08/22 [History Last Taken 12/25/22] memantine 2 mg/mL oral solution 5 mg (2.5 mL) PO BID #450 mL 08/12/22 [Rx Last Taken 12/25/22] nitroglycerin 0.4 mg sublingual tablet 0.4 mg sublingual Q5-15M PRN chest pain #25 tabs 11/11/22 [Rx Last Taken Unknown] fluoxetine 40 mg capsule 40 mg PO DAILY #90 caps 11/13/22 [Rx Last Taken 12/25/22] aspirin 81 mg tablet,delayed release (Adult Aspirin Regimen) 81 mg PO DAILY 12/26/22 [History Last Taken 12/25/22] galantamine 4 mg/mL oral solution 10 mg PO BID 12/26/22 [History Last Taken 12/25/22] hydrochlorothiazide 12.5 mg capsule 12.5 mg PO DAILY 12/26/22 [History Last Taken 12/25/22] latanoprost 0.005 % eye drops 1 drp ophthalmic (eye) QHS 12/26/22 [History Last Taken 12/25/22] metformin 500 mg tablet,extended release 24 hr 500 mg PO DAILY DM 12/26/22 [History Last Taken 12/25/22] mirtazapine 30 mg tablet 30 mg PO QHS 12/26/22 [History Last Taken 12/25/22] mometasone 50 mcg/actuation nasal spray 1 - 2 spray intranasal Q12H ALLERGIES 12/26/22 [History Last Taken Unknown] polyethylene glycol 400 1 % eye drops (Visine Dry Eye Relief) 1 - 2 drp EACH EYE Q4H PRN dry eye(s) 12/26/22 [History Last Taken 12/25/22] Allergy/AdvReac Type Severity Reaction Status Date / Time bee venom protein (honey bee) Allergy Anaphylaxis Verified 12/26/22 13:14 [id number] Reductase AdvReac Severe Myalgias Verified 12/26/22 13:14 Inhibitor promethazine HCl AdvReac Vomiting Verified 12/26/22 13:14 [From Phenergan] tuberculin, purified protein AdvReac Swelling Verified 12/26/22 13:14 deriva Family History Mother Heart disease Myocardial infarction CVA (cerebral vascular accident) Sister Diabetes Brother Parkinson disease Surgical History Cataract extraction status of left eye History of cardioversion (09/02/19) History of cholecystectomy History of colostomy History of creation of ostomy History of hand surgery History of hysterectomy History of laparoscopy History of partial colectomy Social History Smoking Status: Current some day smoker tobacco type: cigarettes Tobacco: How many years used: 40 alcohol intake: never substance use type: does not use caffeine: Yes Type: carbonated beverages and coffee what type of physical activity do you participate in: walking frequency: 1-2 times per week brandon/restorationist: Islam seatbelt use: always Physical Exam Const alert and oriented x3 HEENT normocephalic Eyes no scleral icterus Resp normal respiratory effort Cardio regular rate Psych mental status grossly normal Risk Stratification Risk Stratification Applicable: No Charges/Coding Visit Charges Inpatient E&M: 29083 Init Hosp L2 Objective Data Vital Signs: Vital Signs Temp Pulse Resp BP Pulse Ox O2 Del Method 97.7 F L 63 16 115/61 100 Room Air 12/27/22 09:01 12/27/22 09:07 12/27/22 09:01 12/27/22 09:01 12/27/22 09:11 12/27/22 09:11 Oxygen Delivery Method Room Air Weight: 149 lb 11.102 oz Body Mass Index (BMI) 24.9 Intake & Output: Intake and Output for Last 24 Hours 12/25/22 12/26/22 12/27/22 23:59 23:59 23:59 Intake Total 1390.80 / 1390.80 2426.45 / 2426.45 Balance 1390.80 / 1390.80 2426.45 / 2426.45 Lab / Micro Data 12/26/22 13:46 12/27/22 07:00 Labs: Laboratory Results - last 24 hr 12/26/22 16:30: Troponin I High Sens 21, Triglycerides 75, Cholesterol 97, LDL Cholesterol 36, VLDL Cholesterol 15, HDL Cholesterol 46 12/26/22 20:01: Troponin I High Sens 27 12/26/22 22:23: APTT 112.7 H* 12/27/22 07:00: APTT 48.1 H, Sodium 141, Potassium 3.4 L, Chloride 115 H, Carbon Dioxide 17.0 L, Anion Gap 9, BUN 62 H, Creatinine 4.22 H, Estim Creat Clear Calc 11.48, Est GFR (MDRD) Af Amer 13 L, Est GFR (MDRD) Non-Af 11 L, BUN/Creatinine Ratio 14.7, Glucose 101, Calcium 7.4 L 12/27/22 14:00: APTT 66.4 H Rhythm Strip Rhythm Strip: Sinus Rhythm Rate: 72 Ectopy: None Cardiology Labs/Tests 12/26/22 16:30: Triglycerides 75, Cholesterol 97, LDL Cholesterol 36, VLDL Cholesterol 15, HDL Cholesterol 46 12/26/22 22:23: APTT 112.7 H* 12/27/22 07:00: APTT 48.1 H, Sodium 141, Potassium 3.4 L, Chloride 115 H, Carbon Dioxide 17.0 L, Anion Gap 9, BUN 62 H, Creatinine 4.22 H, Est GFR (MDRD) Af Amer 13 L, Est GFR (MDRD) Non-Af 11 L, BUN/Creatinine Ratio 14.7, Glucose 101, Calcium 7.4 L 12/27/22 14:00: APTT 66.4 H Rhythm: EKG: ECHO: Stress Test: Cardiac Cath: PCI: CT Surgery: Holter monitor: EPS: PPM: CXR: Chest CT Scan: Radiography Diagnostic Testing: Radiology Impression Renal Ultrasound 12/26/22 18:39 IMPRESSION: No acute findings in the retroperitoneum. Electronically Signed: Arden Jameson MD at 19:31 EDT , Echocardiogram 12/27/22 05:55 Interpretation Summary The estimated ejection fraction is 65 %. The left atrium is mildly enlarged. Ordering Physician: Sarath Ceja Referring Physician: ARASELI AMADOR Performed By: Kim Sanchez RDCS
[2022-12-27 15:43] VITALS: BP 120/71; PULSE 56; RESP 16; TEMP 36.8; O2SAT 100
--- NOTE | 2022-12-27 16:15 | CASEMGMT ---
CAROLIN SMITH Discharge Planning Assessment: Face to Face with patient for initial transition planning/care coordination assessment. CAROLIN SMITH introduced self and role at [facility], pt voices understanding and is agreeable to participating in assessment. Pt alert and answering questions appropriately. Noted pt to be ambulating in room independently to bathroom upon entry and pt independent with toileting and navigation of IV pole/tubing. Care providers, pharmacy, and demographics verified. Admitting dx: unstable angina, CINDY PCP: Radha Specialists: Jeana (bean picker), Jaquan (neurologist) Preferred Pharmacy: [facility] in [place] Insurance: [facility] Prescription Benefit: yes Living Will/HPOA: yes, HPOA son Wilbert Whitley LNOK: son Wilbert Whitley Living Arrangements: Pt lives alone in a single story home without steps to enter. Pt states she is independent at home with ADLs and IADLs. Transportation: Pt drives and son assists when needed DME: grab bars in the shower, glucometer and supplies (checks QD to QOD) SNF: yes, TCU in 2020 HHC: yes, [facility] HH in 2020 Plan: Pt's plan is to return home at discharge with the support of her son. Pt denies any needs at this time. Will continue to monitor and assist with DC needs as identified. Dave Berg RN CM
[2022-12-27] MEDS: 0.9% Saline Lock 10 ML Syringe IV ×3 (16:20→22:21)
--- NOTE | 2022-12-27 17:20 | CASEMGMT ---
Tertiary Facilities in-network with pt's insurance: [facility], [place], [facility], [place], , [facility], [facility], [place], [place] Dave Berg RN CM
--- NOTE | 2022-12-27 17:50 | PCM.PN.HOSP ---
Reason for Visit Reason for Visit: Diagnoses Unstable angina (12/26/22) Acute kidney failure, unspecified (12/26/22) Subjective Subjective Patient was seen and examined today, I talked with cardiology about her care. Patient's sodium is improved slightly today, I have elected to increase her IV fluid rate, she will not be taken for heart cath until this Friday due to her renal functions. Patient's potassium today was 3.4. I talked with cardiology and they were okay with stopping her heparin drip. Objective Data Objective Data Vital Signs: Vital Signs Temp Pulse Resp BP Pulse Ox O2 Del Method 98.2 F 56 L 16 120/71 100 Room Air 12/27/22 15:43 12/27/22 15:43 12/27/22 15:43 12/27/22 15:43 12/27/22 15:43 12/27/22 15:46 Oxygen Delivery Method Room Air Weight: 67.9 kg Body Mass Index (BMI) 24.9 Intake & Output: Intake and Output for Last 24 Hours 12/25/22 12/26/22 12/27/22 23:59 23:59 23:59 Intake Total 1390.80 / 1390.80 2437.35 / 2437.35 Balance 1390.80 / 1390.80 2437.35 / 2437.35 Lab / Micro Data 12/26/22 13:46 12/27/22 07:00 Labs: Laboratory Results - last 24 hr 12/26/22 16:30: Triglycerides 75, Cholesterol 97, LDL Cholesterol 36, VLDL Cholesterol 15, HDL Cholesterol 46 12/26/22 20:01: Troponin I High Sens 27 12/26/22 22:23: APTT 112.7 H* 12/27/22 07:00: APTT 48.1 H, Sodium 141, Potassium 3.4 L, Chloride 115 H, Carbon Dioxide 17.0 L, Anion Gap 9, BUN 62 H, Creatinine 4.22 H, Estim Creat Clear Calc 11.48, Est GFR (MDRD) Af Amer 13 L, Est GFR (MDRD) Non-Af 11 L, BUN/Creatinine Ratio 14.7, Glucose 101, Calcium 7.4 L 12/27/22 14:00: APTT 66.4 H Radiography Diagnostic Testing: Radiology Impression Renal Ultrasound 12/26/22 18:39 IMPRESSION: No acute findings in the retroperitoneum. Electronically Signed: Arden Jameson MD at 19:31 EDT , Echocardiogram 12/27/22 05:55 Interpretation Summary The estimated ejection fraction is 65 %. The left atrium is mildly enlarged. Ordering Physician: Sarath Ceja Referring Physician: ARASELI AMADOR Performed By: Kim Sanchez RDCS Rhythm Strip Rhythm Strip: Sinus Rhythm Rate: 72 Ectopy: None Physical Exam Const alert, oriented x3, no apparent distress and healthy appearing General Appearance: cooperative, well kempt and well developed Orientation / Consciousness: awake, oriented to person, oriented to place and oriented to time HEENT normocephalic and moist oral mucous membranes Eyes PERRL, EOMs intact bilaterally and conjunctivae normal Neck supple, no JVD, thyroid normal and no carotid bruits General: trachea midline Resp normal respiratory effort, no retractions, no use of accessory muscles and clear to auscultation bilaterally Auscultation: Negative for rales, rhonchi or wheezes Cardio regular rate, regular rhythm, S1 normal heart sound, S2 normal heart sound, no murmurs, no rub and no gallops GI normal to inspection, nondistended, normoactive bowel sounds, soft to palpation, non-tender and non-distended GI Narrative: Colostomy is in place Extremity no clubbing, cyanosis or edema Skin no rashes or lesions noted General Skin Exam: no breakdown Neuro oriented x3, CN's II-XII intact bilaterally, moves all extremities, no focal motor deficits and no sensory deficits noted Sensorium / Orientation: awake and alert Speech: speech normal Psych affect normal Assessment & Plan Assessment/Plan (1) Acute renal failure: PLAN: Plan 1. Unstable angina-patient's cardiac enzymes remain normal, she has had no episodes of chest discomfort. Again the plan is for heart catheterization on 12/30/2022. This depends on what her renal functions are on that day. #2 acute renal failure-etiology unclear at this point, patient will be given IV fluids and labs will be monitored #3 essential hypertension-patient will remain on her present medications #4 hyperlipidemia-patient will remain on her lipid medications #5 mild dementia-patient will remain on her dementia medications #6 chronic depression/anxiety-patient will remain on her antidepressant #7 type 2 diabetes-patient is on metformin at home, this will be held due to her renal function #8 hypokalemia-etiology unclear, patient is on IV fluids containing potassium, her BMP will be checked tomorrow #9 GERD-patient will be kept on a PPI Total clinical time spent by myself addressing patient's medical issues, reviewing all of her data, and collaborating with patient's care team: 35 minutes Charges/Coding Visit Charges Inpatient E&M: 85864 Subs Hosp L2
[2022-12-27] MEDS: Ondansetron 4 MG/2 ML Vial IV (19:49)
[2022-12-27 21:20] VITALS: BP 131/98; PULSE 57; RESP 18; TEMP 36.6; O2SAT 100
[2022-12-27] MEDS: Heparin Injection (Vial) 5,000 UNIT/ML VIAL 5000 UNIT SC (21:26)
[2022-12-27] MEDS: Mirtazapine 30 MG Tablet PO (21:26)
[2022-12-27] MEDS: Latanoprost 0.005% 1 Bottle 1 DRP OPHTHALMIC (21:28)
[2022-12-27] MEDS: proCHLORPERazine 10 MG/2 ML Vial 5 MG IV (22:21)
[2022-12-27] MEDS: MELATONIN 3 MG TABLET PO (22:21)
[2022-12-28] MEDS: KCL 20MEQ in 0.9% NS 20 MEQ/1,000 ML IV.SOLN. 150 MEQ IV (02:18)
[2022-12-28 03:20] VITALS: BP 129/67; PULSE 57; RESP 18; TEMP 36.5; O2SAT 93
[2022-12-28 06:56] LABS: Anion Gap 5 (5-15); BUN 44 mg/dL (7-18); BUN/Creat Ratio 15.6 RATIO (10-20); Calcium,Total 7.1 mg/dL (8.5-10.1); Chloride 125 mmol/L (98-107); Creatinine, Serum 2.82 mg/dL (0.55-1.02); EST Glomerular Filtration Rate 18 mL/min (>60); Est Glom Filt Rate - Afr Amer 21 mL/min (>60); Estimated Creatinine Clearance 17.18 ml/min; Glucose 90 mg/dL (74-106); Potassium 3.7 mmol/L (3.5-5.1); Sodium Level 145 mmol/L (136-145)
[2022-12-28 09:09] VITALS: BP 124/53; PULSE 67; RESP 18; TEMP 36.5; O2SAT 98
[2022-12-28] MEDS: 0.9% Saline Lock 10 ML Syringe IV ×2 (09:18→09:38)
[2022-12-28] MEDS: Fluoxetine HCl 40 MG CAPSULE PO (09:19)
[2022-12-28] MEDS: Clopidogrel Bisulfate 75 MG Tablet PO (09:19)
[2022-12-28] MEDS: dilTIAZem CD 180 MG Capsule PO (09:19)
[2022-12-28] MEDS: Memantine Hydrochloride 5 MG Tablet PO ×2 (09:20→21:31)
[2022-12-28] MEDS: Pantoprazole Sodium 40 MG Tablet PO (09:20)
[2022-12-28] MEDS: Isosorbide Mononitrate 30 MG Tablet PO (09:21)
[2022-12-28] MEDS: Galantamine Hydrobromide 4 MG Tablet 10 MG PO ×2 (09:21→18:05)
[2022-12-28] MEDS: Aspirin E.C. 81 MG Tablet PO (09:21)
[2022-12-28 09:22] VITALS: PULSE 67
[2022-12-28] MEDS: Metoprolol Tartrate 25 MG Tablet 12.5 MG PO ×2 (09:22→21:32)
[2022-12-28] MEDS: Heparin Injection (Vial) 5,000 UNIT/ML VIAL 5000 UNIT SC ×2 (09:22→21:30)
[2022-12-28] MEDS: Ezetimibe 10 MG Tablet PO (09:23)
[2022-12-28] MEDS: KCL 20MEQ in 0.9% NS 20 MEQ/1,000 ML IV.SOLN. 75 MEQ IV ×2 (09:38→21:56)
--- NOTE | 2022-12-28 11:16 | PN.HOSP_ITS ---
Reason for Visit Reason for Visit: Diagnoses Unstable angina (12/26/22) Acute kidney failure, unspecified (12/26/22) Subjective Subjective Patient was seen and examined today, she complained of insomnia last night and she also complained of nausea. Creatinine is improved to 2.82 today with BUN of 44, I have elected to slow down the patient's IV fluids at this time and recheck her lab tomorrow. She has no complaints of any chest pain. Objective Data Objective Data Vital Signs: Vital Signs Temp Pulse Resp BP Pulse Ox O2 Del Method 97.7 F L 67 18 124/53 H 98 Room Air 12/28/22 09:09 12/28/22 09:22 12/28/22 09:09 12/28/22 09:09 12/28/22 09:09 12/28/22 09:09 Oxygen Delivery Method Room Air Weight: 67.9 kg Body Mass Index (BMI) 24.9 Intake & Output: Intake and Output for Last 24 Hours 12/26/22 12/27/22 12/28/22 23:59 23:59 23:59 Intake Total 1390.80 / 1390.80 3937.35 / 3937.35 1999 Balance 1390.80 / 1390.80 3937.35 / 3937.35 1999 Lab / Micro Data 12/26/22 13:46 12/28/22 05:35 Labs: Laboratory Results - last 24 hr 12/27/22 14:00: APTT 66.4 H 12/28/22 05:35: Sodium 145, Potassium 3.7, Chloride 125 H, Carbon Dioxide 15.0 L , Anion Gap 5, BUN 44 H, Creatinine 2.82 H, Estim Creat Clear Calc 17.18, Est GFR (MDRD) Af Amer 21 L, Est GFR (MDRD) Non-Af 18 L, BUN/Creatinine Ratio 15.6, Glucose 90, Calcium 7.1 L Radiography Diagnostic Testing: Radiology Impression Echocardiogram 12/27/22 05:55 Interpretation Summary The estimated ejection fraction is 65 %. The left atrium is mildly enlarged. Ordering Physician: Sarath Ceja Referring Physician: ARASELI AMADOR Performed By: Kim Sanchez RDCS Rhythm Strip Rhythm Strip: Sinus Rhythm Rate: 72 Ectopy: None Physical Exam Narrative alert, oriented x3, no apparent distress and healthy appearing General Appearance: cooperative, well kempt and well developed Orientation / Consciousness: awake, oriented to person, oriented to place and oriented to time HEENT normocephalic and moist oral mucous membranes Eyes PERRL, EOMs intact bilaterally and conjunctivae normal Neck supple, no JVD, thyroid normal and no carotid bruits General: trachea midline Resp normal respiratory effort, no retractions, no use of accessory muscles and clear to auscultation bilaterally Auscultation: Negative for rales, rhonchi or wheezes Cardio regular rate, regular rhythm, S1 normal heart sound, S2 normal heart sound, no murmurs, no rub and no gallops GI normal to inspection, nondistended, normoactive bowel sounds, soft to palpation, non-tender and non-distended GI Narrative: Colostomy is in place Extremity no clubbing, cyanosis or edema Skin no rashes or lesions noted General Skin Exam: no breakdown Neuro oriented x3, CN's II-XII intact bilaterally, moves all extremities, no focal motor deficits and no sensory deficits noted Sensorium / Orientation: awake and alert Speech: speech normal Psych affect normal Assessment & Plan Assessment/Plan (1) Acute renal failure: PLAN: Plan 1. Unstable angina-patient's cardiac enzymes remain normal, she has had no episodes of chest discomfort. Again the plan is for heart catheterization on 12/30/2022. This depends on what her renal functions are on that day. #2 acute renal failure-etiology unclear at this point, patient will be given IV fluids and labs will be monitored, creatinine is improved and I will lower her IV fluid rate. #3 essential hypertension-patient will remain on her present medications #4 hyperlipidemia-patient will remain on her lipid medications #5 mild dementia-patient will remain on her dementia medications #6 chronic depression/anxiety-patient will remain on her antidepressant #7 type 2 diabetes-patient is on metformin at home, this will be held due to her renal function #8 hypokalemia-etiology unclear, patient is on IV fluids containing potassium, her BMP will be checked tomorrow #9 GERD-patient will be kept on a PPI Total clinical time spent by myself addressing patient's medical issues, reviewing all of her data, and collaborating with patient's care team: 35 bessy cooney Charges/Coding Visit Charges Inpatient E&M: 93772 Subs Hosp L2
[2022-12-28 15:10] VITALS: BP 104/66; PULSE 52; RESP 16; TEMP 36.4; O2SAT 99
[2022-12-28 21:26] VITALS: BP 139/64; PULSE 56; RESP 18; TEMP 36; O2SAT 100
[2022-12-28] MEDS: MELATONIN 3 MG TABLET PO (21:31)
[2022-12-28] MEDS: Atorvastatin Calcium 80 MG Tablet PO (21:31)
[2022-12-28] MEDS: Temazepam 15 MG Capsule 30 MG PO (21:31)
[2022-12-28] MEDS: Mirtazapine 30 MG Tablet PO (21:31)
[2022-12-28 21:32] VITALS: PULSE 56
[2022-12-28] MEDS: Latanoprost 0.005% 1 Bottle 1 DRP OPHTHALMIC (21:32)
[2022-12-29] VITALS (9 sets, daily range): BP systolic 97–146; BP diastolic 49–87; PULSE 51–65; RESP 16–18; TEMP 36.1–36.7; O2SAT 97–100
[2022-12-29 07:31] LABS: Anion Gap 5 (5-15); BUN 31 mg/dL (7-18); BUN/Creat Ratio 12.4 RATIO (10-20); Calcium,Total 7.4 mg/dL (8.5-10.1); Chloride 125 mmol/L (98-107); EST Glomerular Filtration Rate 20 mL/min (>60); Est Glom Filt Rate - Afr Amer 25 mL/min (>60); Estimated Creatinine Clearance 19.38 ml/min; Glucose 99 mg/dL (74-106); Potassium 4.4 mmol/L (3.5-5.1); Sodium Level 145 mmol/L (136-145)
[2022-12-29] MEDS: Aspirin E.C. 81 MG Tablet PO (08:27)
[2022-12-29] MEDS: Galantamine Hydrobromide 4 MG Tablet 10 MG PO ×2 (08:27→16:54)
--- NOTE | 2022-12-29 10:20 | PN.HOSP_ITS ---
Reason for Visit Reason for Visit: Diagnoses Unstable angina (12/26/22) Acute kidney failure, unspecified (12/26/22) Subjective Subjective Patient was seen and examined today, creatinine is minimally improved today, she does not complain of any chest pain. Objective Data Objective Data Vital Signs: Vital Signs Temp Pulse Resp BP Pulse Ox O2 Del Method 97.5 F L 56 L 18 136/69 H 99 Room Air 12/29/22 08:25 12/29/22 08:25 12/29/22 08:25 12/29/22 08:25 12/29/22 08:25 12/29/22 08:25 Oxygen Delivery Method Room Air Weight: 67.9 kg Body Mass Index (BMI) 24.9 Intake & Output: Intake and Output for Last 24 Hours 12/27/22 12/28/22 12/29/22 23:59 23:59 23:59 Intake Total 3937.35 / 3937.35 3702.5 / 3702.5 100 / 100 Balance 3937.35 / 3937.35 3702.5 / 3702.5 100 / 100 Lab / Micro Data 12/26/22 13:46 12/29/22 05:20 Labs: Laboratory Results - last 24 hr 12/29/22 05:20: Sodium 145, Potassium 4.4, Chloride 125 H, Carbon Dioxide 15.0 L , Anion Gap 5, BUN 31 H, Creatinine 2.50 H, Estim Creat Clear Calc 19.38, Est GFR (MDRD) Af Amer 25 L, Est GFR (MDRD) Non-Af 20 L, BUN/Creatinine Ratio 12.4, Glucose 99, Calcium 7.4 L Rhythm Strip Rhythm Strip: Sinus Rhythm Rate: 72 Ectopy: None Physical Exam Narrative alert, oriented x3, no apparent distress and healthy appearing General Appearance: cooperative, well kempt and well developed Orientation / Consciousness: awake, oriented to person, oriented to place and oriented to time HEENT normocephalic and moist oral mucous membranes Eyes PERRL, EOMs intact bilaterally and conjunctivae normal Neck supple, no JVD, thyroid normal and no carotid bruits General: trachea midline Resp normal respiratory effort, no retractions, no use of accessory muscles and clear to auscultation bilaterally Auscultation: Negative for rales, rhonchi or wheezes Cardio regular rate, regular rhythm, S1 normal heart sound, S2 normal heart sound, no murmurs, no rub and no gallops GI normal to inspection, nondistended, normoactive bowel sounds, soft to palpation, non-tender and non-distended GI Narrative: Colostomy is in place Extremity no clubbing, cyanosis or edema Skin no rashes or lesions noted General Skin Exam: no breakdown Neuro oriented x3, CN's II-XII intact bilaterally, moves all extremities, no focal motor deficits and no sensory deficits noted Sensorium / Orientation: awake and alert Speech: speech normal Psych affect normal Assessment & Plan Assessment/Plan (1) Acute renal failure: PLAN: Plan 1. Unstable angina-patient's cardiac enzymes remain normal, she has had no episodes of chest discomfort. Again the plan is for heart catheterization on 12/30/2022. This depends on what her renal functions are on that day. #2 acute renal failure-etiology unclear at this point, continue present IV fluid administration, recheck BMP in the morning #3 essential hypertension-patient will remain on her present medications #4 hyperlipidemia-patient will remain on her lipid medications #5 mild dementia-patient will remain on her dementia medications #6 chronic depression/anxiety-patient will remain on her antidepressant #7 type 2 diabetes-patient is on metformin at home, this will be held due to her renal function #8 hypokalemia-etiology unclear, corrected at this time, patient is on IV fluids containing potassium, her BMP will be checked tomorrow #9 GERD-patient will be kept on a PPI Total clinical time spent by myself addressing patient's medical issues, reviewing all of her data, and collaborating with patient's care team: 35 minutes Charges/Coding Visit Charges Inpatient E&M: 67071 Subs Hosp L2
[2022-12-29] MEDS: dilTIAZem CD 180 MG Capsule PO (10:52)
[2022-12-29] MEDS: Pantoprazole Sodium 40 MG Tablet PO (10:52)
[2022-12-29] MEDS: Isosorbide Mononitrate 30 MG Tablet PO (10:52)
[2022-12-29] MEDS: Memantine Hydrochloride 5 MG Tablet PO ×2 (10:52→22:31)
[2022-12-29] MEDS: Clopidogrel Bisulfate 75 MG Tablet PO (10:52)
[2022-12-29] MEDS: Fluoxetine HCl 40 MG CAPSULE PO (10:53)
[2022-12-29] MEDS: Heparin Injection (Vial) 5,000 UNIT/ML VIAL 5000 UNIT SC ×2 (10:53→22:32)
[2022-12-29] MEDS: Metoprolol Tartrate 25 MG Tablet 12.5 MG PO ×2 (10:53→22:32)
[2022-12-29] MEDS: Ezetimibe 10 MG Tablet PO (10:53)
[2022-12-29] MEDS: 0.9% Saline Lock 10 ML Syringe IV (11:15)
[2022-12-29] MEDS: KCL 20MEQ in 0.9% NS 20 MEQ/1,000 ML IV.SOLN. 75 MEQ IV (11:16)
--- NOTE | 2022-12-29 15:30 | PN.CARD_ITS ---
Subjective Subjective Denies any rest angina. Creatinine continues to improve but not yet at baseline. Objective Data Vital Signs: Vital Signs Temp Pulse Resp BP Pulse Ox O2 Del Method 97.5 F L 64 18 124/68 H 98 Room Air 12/29/22 10:43 12/29/22 10:53 12/29/22 10:43 12/29/22 10:43 12/29/22 10:43 12/29/22 14:00 Oxygen Delivery Method Room Air Weight: 149 lb 11.102 oz Body Mass Index (BMI) 24.9 Intake & Output: Intake and Output for Last 24 Hours 12/27/22 12/28/22 12/29/22 23:59 23:59 23:59 Intake Total 3937.35 / 3937.35 3702.5 / 3702.5 1800 / 1800 Balance 3937.35 / 3937.35 3702.5 / 3702.5 1800 / 1800 Lab / Micro Data 12/26/22 13:46 12/29/22 05:20 Labs: Laboratory Results - last 24 hr 12/29/22 05:20: Sodium 145, Potassium 4.4, Chloride 125 H, Carbon Dioxide 15.0 L , Anion Gap 5, BUN 31 H, Creatinine 2.50 H, Estim Creat Clear Calc 19.38, Est GFR (MDRD) Af Amer 25 L, Est GFR (MDRD) Non-Af 20 L, BUN/Creatinine Ratio 12.4, Glucose 99, Calcium 7.4 L Rhythm Strip Rhythm Strip: Sinus Rhythm Rate: 72 Ectopy: None Cardiology Labs/Tests 12/29/22 05:20: Sodium 145, Potassium 4.4, Chloride 125 H, Carbon Dioxide 15.0 L , Anion Gap 5, BUN 31 H, Creatinine 2.50 H, Est GFR (MDRD) Af Amer 25 L, Est GFR (MDRD) Non-Af 20 L, BUN/Creatinine Ratio 12.4, Glucose 99, Calcium 7.4 L Rhythm: EKG: ECHO: Stress Test: Cardiac Cath: PCI: CT Surgery: Holter monitor: EPS: PPM: CXR: Chest CT Scan: Physical Exam Const alert and oriented x3 HEENT normocephalic Eyes no scleral icterus Resp normal respiratory effort Cardio regular rate Psych mental status grossly normal Assessment & Plan Assessment/Plan (1) Unstable angina: PLAN: Patient appears to have unstable angina. She will eventually need coronary angiography. However it is better to wait till her creatinine comes back to normal prior to proceeding with coronary angiography. Her acute kidney failure is being addressed by the primary service at this time. (2) Paroxysmal atrial fibrillation: PLAN: Anticoagulation can be discussed with the patient after coronary angiography. Charges/Coding Visit Charges Inpatient E&M: 33870 Subs Hosp L2
[2022-12-29] MEDS: MELATONIN 3 MG TABLET PO (22:31)
[2022-12-29] MEDS: Atorvastatin Calcium 80 MG Tablet PO (22:31)
[2022-12-29] MEDS: Mirtazapine 30 MG Tablet PO (22:31)
[2022-12-29] MEDS: Temazepam 15 MG Capsule 30 MG PO (22:31)
[2022-12-29] MEDS: Latanoprost 0.005% 1 Bottle 1 DRP OPHTHALMIC (22:32)
[2022-12-30] MEDS: KCL 20MEQ in 0.9% NS 20 MEQ/1,000 ML IV.SOLN. 75 MEQ IV ×2 (00:12→13:18)
[2022-12-30 04:30] VITALS: BP 142/79; PULSE 68; RESP 16; TEMP 36.8; O2SAT 99
--- NOTE | 2022-12-30 05:00 | EKG12_ITS ---
Test Reason : AM EKG Blood Pressure : / mmHG Vent. Rate : 059 BPM Atrial Rate : 059 BPM P-R Int : 136 ms QRS Dur : 068 ms QT Int : 448 ms P-R-T Axes : 041 055 068 degrees QTc Int : 443 ms Sinus bradycardia Otherwise normal ECG When compared with ECG of 26-DEC-2022 13:07, MANUAL COMPARISON REQUIRED, DATA IS UNCONFIRMED Confirmed by LILLY CHACKO, KINSEY ([id number]), medical transcription editor MARYBETH ALBERTO ([id number]) on 12/31/2022 12:21:43 PM Referred By: Confirmed By:KINSEY CARR MD
[2022-12-30 06:54] LABS: Anion Gap 4 (5-15); BUN 27 mg/dL (7-18); BUN/Creat Ratio 12.9 RATIO (10-20); Calcium,Total 7.5 mg/dL (8.5-10.1); Chloride 124 mmol/L (98-107); Creatinine, Serum 2.09 mg/dL (0.55-1.02); EST Glomerular Filtration Rate 25 mL/min (>60); Est Glom Filt Rate - Afr Amer 30 mL/min (>60); Estimated Creatinine Clearance 23.18 ml/min; Glucose 109 mg/dL (74-106); Potassium 4.9 mmol/L (3.5-5.1); Sodium Level 144 mmol/L (136-145)
--- NOTE | 2022-12-30 08:22 | PN.CARD_ITS ---
Objective Data Vital Signs: Vital Signs Temp Pulse Resp BP Pulse Ox O2 Del Method 98.2 F 68 16 142/79 H 99 Room Air 12/30/22 04:30 12/30/22 04:30 12/30/22 04:30 12/30/22 04:30 12/30/22 04:30 12/30/22 04:30 Oxygen Delivery Method Room Air Weight: 149 lb 11.102 oz Body Mass Index (BMI) 24.9 Intake & Output: Intake and Output for Last 24 Hours 12/28/22 12/29/22 12/30/22 23:59 23:59 23:59 Intake Total 3702.5 / 3702.5 3240 / 3240 970 / 970 Balance 3702.5 / 3702.5 3240 / 3240 970 / 970 Lab / Micro Data 12/26/22 13:46 12/30/22 05:10 Labs: Laboratory Results - last 24 hr 12/30/22 05:10: Sodium 144, Potassium 4.9, Chloride 124 H, Carbon Dioxide 16.0 L , Anion Gap 4 L, BUN 27 H, Creatinine 2.09 H, Estim Creat Clear Calc 23.18, Est GFR (MDRD) Af Amer 30 L, Est GFR (MDRD) Non-Af 25 L, BUN/Creatinine Ratio 12.9, Glucose 109 H, Calcium 7.5 L Rhythm Strip Rhythm Strip: Sinus Rhythm Rate: 72 Ectopy: None Cardiology Labs/Tests 12/30/22 05:10: Sodium 144, Potassium 4.9, Chloride 124 H, Carbon Dioxide 16.0 L , Anion Gap 4 L, BUN 27 H, Creatinine 2.09 H, Est GFR (MDRD) Af Amer 30 L, Est GFR (MDRD) Non-Af 25 L, BUN/Creatinine Ratio 12.9, Glucose 109 H, Calcium 7.5 L Rhythm: EKG: ECHO: Stress Test: Cardiac Cath: PCI: CT Surgery: Holter monitor: EPS: PPM: CXR: Chest CT Scan: Physical Exam Const alert, oriented x3 and no apparent distress General Appearance: cooperative HEENT hearing grossly normal bilaterally Head and Scalp: atraumatic Eyes EOMs intact bilaterally Neck General: normal visual inspection Chest inspection of chest normal and palpation of chest normal Resp normal respiratory effort Auscultation: clear to auscultation bilaterally Cardio regular rate, regular rhythm, S1 normal heart sound and S2 normal heart sound Jugular Venous Distention: JVD GI normal to inspection, nondistended, normoactive bowel sounds Extremity normal capillary refill and no pedal edema Peripheral Pulses: Yes pulses 2+ throughout and femoral pulses present Skin no rashes or lesions noted Neuro oriented x3 and CN's II-XII intact bilaterally Psych Appearance: grossly normal and appropriate Assessment & Plan Assessment/Plan (1) Unstable angina: PLAN: Patient appears to have unstable angina. She will eventually need coronary angiography. However it is better to wait till her creatinine comes back to normal prior to proceeding with coronary angiography. Her acute kidney failure is being addressed by the primary service at this time. * There has been some improvement in her renal function but her to be appropriate to wait at least another day to see whether there is further improvement noted. * Above has been discussed with the patient. (2) Paroxysmal atrial fibrillation: PLAN: Anticoagulation can be discussed with the patient after coronary angiography.
[2022-12-30] MEDS: Galantamine Hydrobromide 4 MG Tablet 10 MG PO ×2 (09:00→18:00)
[2022-12-30] MEDS: Aspirin E.C. 81 MG Tablet PO (09:00)
[2022-12-30] MEDS: Heparin Injection (Vial) 5,000 UNIT/ML VIAL 5000 UNIT SC ×2 (09:10→21:38)
[2022-12-30] MEDS: dilTIAZem CD 180 MG Capsule PO (09:10)
[2022-12-30 09:11] VITALS: BP 142/75; PULSE 66
[2022-12-30] MEDS: Metoprolol Tartrate 25 MG Tablet 12.5 MG PO ×2 (09:11→21:38)
[2022-12-30] MEDS: Pantoprazole Sodium 40 MG Tablet PO (09:12)
[2022-12-30] MEDS: Memantine Hydrochloride 5 MG Tablet PO ×2 (09:12→21:38)
[2022-12-30] MEDS: Ezetimibe 10 MG Tablet PO (09:12)
[2022-12-30] MEDS: Isosorbide Mononitrate 30 MG Tablet PO (09:12)
[2022-12-30] MEDS: Clopidogrel Bisulfate 75 MG Tablet PO (09:12)
[2022-12-30] MEDS: 0.9% Saline Lock 10 ML Syringe IV (09:13)
[2022-12-30] MEDS: Fluoxetine HCl 40 MG CAPSULE PO (09:13)
[2022-12-30 10:30] VITALS: BP 140/70; PULSE 65; RESP 16; TEMP 35.8; O2SAT 99
[2022-12-30] MEDS: Fenofibrate 48 MG Tablet PO (10:45)
[2022-12-30] MEDS: Acetaminophen 325 MG Tablet 650 MG PO (13:20)
[2022-12-30 16:30] VITALS: BP 138/75; PULSE 62; RESP 14; TEMP 36.1; O2SAT 98
--- NOTE | 2022-12-30 17:56 | PN.HOSP_ITS ---
Reason for Visit Reason for Visit: Diagnoses Unstable angina (12/26/22) Paroxysmal atrial fibrillation (12/26/22) Acute kidney failure, unspecified (12/26/22) Subjective Subjective Patient was seen and examined today, her creatinine today was 2.09, cardiology has elected to wait another day before performing a cardiac catheterization due to her renal function. Patient has had no complaints of any chest pain or shortness of breath. Objective Data Objective Data Vital Signs: Vital Signs Temp Pulse Resp BP Pulse Ox O2 Del Method 96.5 F L 65 16 140/70 H 99 Room Air 12/30/22 10:30 12/30/22 10:30 12/30/22 10:30 12/30/22 10:30 12/30/22 10:30 12/30/22 10:30 Oxygen Delivery Method Room Air Weight: 67.9 kg Body Mass Index (BMI) 24.9 Intake & Output: Intake and Output for Last 24 Hours 12/28/22 12/29/22 12/30/22 23:59 23:59 23:59 Intake Total 3702.5 / 3702.5 3240 / 3240 2312.5 / 2312.5 Balance 3702.5 / 3702.5 3240 / 3240 2312.5 / 2312.5 Lab / Micro Data 12/26/22 13:46 12/30/22 05:10 Labs: Laboratory Results - last 24 hr 12/30/22 05:10: Sodium 144, Potassium 4.9, Chloride 124 H, Carbon Dioxide 16.0 L , Anion Gap 4 L, BUN 27 H, Creatinine 2.09 H, Estim Creat Clear Calc 23.18, Est GFR (MDRD) Af Amer 30 L, Est GFR (MDRD) Non-Af 25 L, BUN/Creatinine Ratio 12.9, Glucose 109 H, Calcium 7.5 L Rhythm Strip Rhythm Strip: Sinus Rhythm Rate: 72 Ectopy: None Physical Exam Const alert, oriented x3, no apparent distress, average body habitus and healthy appearing General Appearance: cooperative, well kempt and well developed Orientation / Consciousness: awake, oriented to person, oriented to place and oriented to time HEENT normocephalic, head/scalp atraumatic and moist oral mucous membranes Eyes PERRL, EOMs intact bilaterally and conjunctivae normal Neck supple, no JVD, thyroid normal and no carotid bruits General: trachea midline Resp normal respiratory effort, no retractions, no use of accessory muscles and clear to auscultation bilaterally Auscultation: Negative for rales, rhonchi or wheezes Cardio regular rate, regular rhythm, S1 normal heart sound, S2 normal heart sound, no murmurs, no rub and no gallops GI normal to inspection, nondistended, normoactive bowel sounds, soft to palpation, non-tender and non-distended GI Narrative: Colostomy in place Extremity no clubbing, cyanosis or edema Skin no rashes or lesions noted General Skin Exam: no breakdown Neuro oriented x3, CN's II-XII intact bilaterally, moves all extremities, no focal motor deficits and no sensory deficits noted Sensorium / Orientation: awake, alert, oriented to person, oriented to place and oriented to time Speech: speech normal Psych affect normal Assessment & Plan Assessment/Plan (1) Acute renal failure: PLAN: Plan 1. Unstable angina-patient's cardiac enzymes remain normal, she has had no episodes of chest discomfort. Again the plan is for heart catheterization on 12/31/2022. This depends on what her renal functions are on that day. #2 acute renal failure-etiology unclear at this point, continue present IV fluid administration, recheck BMP in the morning #3 essential hypertension-patient will remain on her present medications #4 hyperlipidemia-patient will remain on her lipid medications #5 mild dementia-patient will remain on her dementia medications #6 chronic depression/anxiety-patient will remain on her antidepressant #7 type 2 diabetes-patient is on metformin at home, this will be held due to her renal function #8 hypokalemia-etiology unclear, corrected at this time, patient is on IV fluids containing potassium, her BMP will be checked tomorrow #9 GERD-patient will be kept on a PPI Total clinical time spent by myself addressing patient's medical issues, reviewing all of her data, and collaborating with patient's care team: 35 minutes Charges/Coding Visit Charges Inpatient E&M: 84110 Subs Hosp L2
[2022-12-30 21:35] VITALS: BP 116/94; PULSE 68; RESP 18; TEMP 36.4; O2SAT 100
[2022-12-30] MEDS: Latanoprost 0.005% 1 Bottle 1 DRP OPHTHALMIC (21:37)
[2022-12-30 21:38] VITALS: PULSE 68
[2022-12-30] MEDS: Atorvastatin Calcium 80 MG Tablet PO (21:38)
[2022-12-30] MEDS: MELATONIN 3 MG TABLET PO (21:38)
[2022-12-30] MEDS: Mirtazapine 30 MG Tablet PO (21:38)
[2022-12-30] MEDS: Temazepam 15 MG Capsule 30 MG PO (21:41)
[2022-12-31] VITALS (14 sets, daily range): BP systolic 114–156; BP diastolic 55–70; PULSE 52–62; RESP 16–20; TEMP 36.3–36.6; O2SAT 97–100
[2022-12-31] MEDS: KCL 20MEQ in 0.9% NS 20 MEQ/1,000 ML IV.SOLN. 75 MEQ IV (03:12)
[2022-12-31 06:30] LABS: Absolute Lymphocyte Count 2.63 X10^3/uL (0.83-4.51); Absolute Neutrophil Count 3.8 X10^3/uL (2.0-7.7); Basophil# 0.05 X10^3/uL; Basophil% 0.7 % (0-1); Eosinophil# 0.35 X10^3/uL; Eosinophils% 4.7 % (0-5); Hematocrit 31.1 % (37-47); Hemoglobin 9.5 g/dL (12.0-15.0); Lymphocyte # 2.63 X10^3/ul (0.83-4.51); Mean Corp Hgb Conc 30.5 g/dL (32-36); Mean Corpuscular Hgb 29.4 pg (27.0-32.0); Mean Corpuscular Volume 96.3 fL (81-99); Mean Platelet Vol. 11.9 fl (6.2-12.0); Monocyte% 9.3 % (0-10); NRBC Flagged by Analyzer 0 % (0-5); Neutrophil # 3.75 X10^3/uL (2.7-7.7); Neutrophil % 49.8 % (47-70); Platelet Count 228 K/mm3 (150-450); RBC Distribution Width CV 14.6 % (11.6-14.6); RBC Distribution Width SD 51.6 fl (35.1-43.9); Red Blood Count 3.23 M/mm3 (4.2-5.4); White Blood Count 7.5 K/mm3 (4.4-11.0)
[2022-12-31 06:43] LABS: Prothrombin Time (Protime)PT. 13.6 SECONDS (11.7-14.9)
[2022-12-31] MEDS: 0.9% Saline Lock 10 ML Syringe IV ×2 (06:49→09:15)
[2022-12-31] MEDS: Isosorbide Mononitrate 30 MG Tablet PO (06:49)
[2022-12-31] MEDS: Metoprolol Tartrate 25 MG Tablet 12.5 MG PO (06:49)
[2022-12-31] MEDS: Clopidogrel Bisulfate 75 MG Tablet PO (06:50)
[2022-12-31] MEDS: Aspirin E.C. 81 MG Tablet PO (06:50)
[2022-12-31] MEDS: dilTIAZem CD 180 MG Capsule PO (06:50)
[2022-12-31 07:06] LABS: Anion Gap 5 (5-15); BUN 22 mg/dL (7-18); BUN/Creat Ratio 11.3 RATIO (10-20); Calcium,Total 7.4 mg/dL (8.5-10.1); Chloride 125 mmol/L (98-107); Creatinine, Serum 1.94 mg/dL (0.55-1.02); EST Glomerular Filtration Rate 27 mL/min (>60); Est Glom Filt Rate - Afr Amer 33 mL/min (>60); Estimated Creatinine Clearance 24.97 ml/min; Glucose 105 mg/dL (74-106); Potassium 4.7 mmol/L (3.5-5.1); Sodium Level 146 mmol/L (136-145)
[2022-12-31] MEDS: 0.9% Normal Saline 1,000 ML 100 ML IV (07:39)
--- NOTE | 2022-12-31 08:35 | PCM.PN.CARD ---
Subjective Subjective Patient seen and evaluated. Appears to be doing well. Objective Data Vital Signs: Vital Signs Temp Pulse Resp BP Pulse Ox O2 Del Method 97.7 F L 62 18 156/65 H 100 Room Air 12/31/22 06:40 12/31/22 06:49 12/31/22 06:40 12/31/22 06:40 12/31/22 06:40 12/31/22 06:40 Oxygen Delivery Method Room Air Weight: 149 lb 11.102 oz Body Mass Index (BMI) 24.9 Intake & Output: Intake and Output for Last 24 Hours 12/29/22 12/30/22 12/31/22 23:59 23:59 23:59 Intake Total 3240 / 3240 3332.5 / 3332.5 1000 / 1000 Balance 3240 / 3240 3332.5 / 3332.5 1000 / 1000 Lab / Micro Data 12/31/22 05:03 12/31/22 05:03 Labs: Laboratory Results - last 24 hr 12/31/22 05:03: WBC 7.5, RBC 3.23 L, Hgb 9.5 L, Hct 31.1 L, MCV 96.3 D, MCH 29.4, MCHC 30.5 L D, RDW Std Deviation 51.6 H, RDW Coeff of [place] 14.6, Plt Count 228, MPV 11.9, Immature Gran % (Auto) 0.500, Neut % (Auto) 49.8, Lymph % (Auto) 35.0, [place] % (Auto) 9.3, Eos % (Auto) 4.7, Baso % (Auto) 0.7, Absolute Neuts (auto) 3.8, Absolute Lymphs (auto) 2.63, Nucleated RBC % 0, PT 13.6, INR 1.0, Sodium 146 H, Potassium 4.7, Chloride 125 H, Carbon Dioxide 16.0 L, Anion Gap 5, BUN 22 H, Creatinine 1.94 H, Estim Creat Clear Calc 24.97, Est GFR (MDRD) Af Amer 33 L, Est GFR (MDRD) Non-Af 27 L, BUN/Creatinine Ratio 11.3, Glucose 105, Calcium 7.4 L Rhythm Strip Rhythm Strip: Sinus Rhythm Rate: 72 Ectopy: None Cardiology Labs/Tests 12/31/22 05:03: WBC 7.5, RBC 3.23 L, Hgb 9.5 L, Hct 31.1 L, MCV 96.3 D, MCH 29.4, MCHC 30.5 L D, Plt Count 228, MPV 11.9, Immature Gran % (Auto) 0.500, Neut % (Auto) 49.8, Lymph % (Auto) 35.0, [place] % (Auto) 9.3, Eos % (Auto) 4.7, Baso % (Auto) 0.7, Absolute Neuts (auto) 3.8, Nucleated RBC % 0, PT 13.6, INR 1.0, Sodium 146 H, Potassium 4.7, Chloride 125 H, Carbon Dioxide 16.0 L, Anion Gap 5, BUN 22 H, Creatinine 1.94 H, Est GFR (MDRD) Af Amer 33 L, Est GFR (MDRD) Non-Af 27 L, BUN/Creatinine Ratio 11.3, Glucose 105, Calcium 7.4 L Rhythm: EKG: ECHO: Stress Test: Cardiac Cath: PCI: CT Surgery: Holter monitor: EPS: PPM: CXR: Chest CT Scan: Physical Exam Const alert, oriented x3 and no apparent distress General Appearance: cooperative HEENT hearing grossly normal bilaterally Head and Scalp: atraumatic Eyes EOMs intact bilaterally Neck General: normal visual inspection Chest inspection of chest normal and palpation of chest normal Resp normal respiratory effort Auscultation: clear to auscultation bilaterally Cardio regular rate, regular rhythm, S1 normal heart sound and S2 normal heart sound Jugular Venous Distention: JVD GI normal to inspection, nondistended, normoactive bowel sounds Extremity normal capillary refill and no pedal edema Peripheral Pulses: Yes pulses 2+ throughout and femoral pulses present Skin no rashes or lesions noted Neuro oriented x3 and CN's II-XII intact bilaterally Psych Appearance: grossly normal and appropriate Assessment & Plan Assessment/Plan (1) Unstable angina: PLAN: Patient appears to have unstable angina. Cardiac catheterization done today demonstrated normal left main coronary artery previously stented Left anterior descending artery with mild disease Left circumflex artery with no significant disease Dominant right coronary artery mildly calcified with no significant disease. Echocardiogram demonstrated preserved left ventricular systolic function. We will continue to treat medically at this time. Patient can be discharged later today. We will recommend hydrate with IV fluids 150 cc an hour for 4 hours. (2) Paroxysmal atrial fibrillation: PLAN: Anticoagulation can be discussed with the patient after coronary angiography.
--- NOTE | 2022-12-31 08:51 | CL.D_ITS ---
Patient Name: TY HOFF Study Date: 12/31/2022 Performing: Medardo Berrios MD Ht: 65 inches 165.1 cm : 1955 Wt: 149.9 lbs 67.9 kg Age: 67 Gender: female BSA: 1.75 PROCEDURE(S) PERFORMED [id number])[facility] CLINICAL PROFILE AND INDICATIONS Indications: Worsening Angina Heart Failure: None Stress/Imaging Stress/Image Study Performed: No CAD Presentations: Unstable angina. CONCLUSIONS Non obstructive coronary arteries Previously placed left main stent is open RECOMMENDATIONS Medical therapy DESCRIPTION OF PROCEDURE The patient arrived to the procedure lab. The risks and benefits of the procedure as well as a full description of our services here and current unavailability of surgical backup were fully explained to the patient and/or their significant other prior to the catheterization. The Timeout was completed, verifying the correct patient and procedure. The patient's procedural site was prepped and draped in the usual fashion. Local anesthetic was given subcutaneously to right radial region with Lidocaine 2%. Using a modified Seldinger technique, arterial access was obtained via the right radial artery, a 6Fr sheath was inserted. Left Coronary Artery selective angiography was performed in multiple views using a 5 Fr. 4.0 [place] catheter. Right Coronary Artery selective angiography was then performed in multiple views using a 5 Fr. 4.0 [place] catheter.The arterial sheath was pulled and a TR Band was applied for hemostasis CORONARY ANGIOGRAPHY DOMINANCE: Right Dominant LEFT HEART ASSESSMENT Left Ventricular Ejection Fraction: by Echo 55 % Normal LV wall motion Normal Left Ventricular systolic function LEFT MAIN: No significant disease noted, Previously placed stent is patent LEFT ANTERIOR DESCENDING ARTERY: Mild luminal irregularities less than 30% CIRCUMFLEX ARTERY: Mild luminal irregularities less than 30% RIGHT CORONARY ARTERY: Mild calcification Mild luminal irregularities COMPLICATIONS No Complications PROCEDURE MEDICATIONS Versed 1 mg IV Fentanyl 50 mcg IV Versed 1 mg IV Oxygen: 2 L/min via nasal cannula Heparin given IA 12/31/2022 08:18:29 SUMMARY OF HEMODYNAMIC DATA Time AIR REST ECG 08:03:15 Art 127/60 (82) 08:21:46 AO 147/63 (93) SA 08:26:15 Signed By Medardo Berrios MD On 12/31/2022 08:50:25 Medardo Berrios MD
[2022-12-31] MEDS: Galantamine Hydrobromide 4 MG Tablet 10 MG PO (09:12)
[2022-12-31] MEDS: Pantoprazole Sodium 40 MG Tablet PO (09:15)
[2022-12-31] MEDS: Fenofibrate 48 MG Tablet PO (09:15)
[2022-12-31] MEDS: Memantine Hydrochloride 5 MG Tablet PO (09:15)
[2022-12-31] MEDS: Fluoxetine HCl 40 MG CAPSULE PO (09:15)
[2022-12-31] MEDS: Ezetimibe 10 MG Tablet PO (09:15)
--- NOTE | 2022-12-31 09:55 | CASEMGMT ---
Tertiary facilities in-network with patient's insurance: [facility], [facility], , [facility], [facility]
--- NOTE | 2022-12-31 10:23 | DCINST_ITS ---
Discharge Instructions Diet Discharge Diet: No restrictions Activity Discharge Activity: Return to Normal Activity Weight Bearing Status: Full weight bearing Follow Up Care Test Results: Test results from this visit will be discussed in further detail at your follow- up appointment, if applicable. Discharge Plan Admission Admit Date/Time: 12/26/22 18:24 Primary Reason for Your Visit: renal failure, chest pain Attending Provider: Sarath Ceja Primary Care Provider: Magan Garcia Consulting Providers: Jorge Hills Discharge Orders/Prescriptions Prescriptions: Continued memantine 2 mg/mL solution 5 mg PO BID Qty: 450 2RF fluoxetine 40 mg capsule 40 mg PO DAILY Qty: 90 1RF fluticasone propion-salmeterol [AirDuo Digihaler] 113 mcg-14 mcg/actuation aero powdr breath act w/sensor 0RF sucralfate 1 gram tablet 1 g PO TID PRN (Reason: stomachache) nitroglycerin 0.4 mg tablet, sublingual 0.4 mg sublingual Q5-15M PRN (Reason: chest pain) Qty: 25 3RF pantoprazole 40 MG tablet 40 mg PO DAILY ezetimibe 10 MG tablet 10 mg PO DAILY Patient Comments: Take 1 tablet by mouth once daily. fenofibrate 54 mg tablet 54 mg PO DAILY Patient Comments: TAKE 1 TABLET BY MOUTH ONCE DAILY acetaminophen 500 MG tablet 1,000 mg PO Q6H PRN PRN (Reason: Pain Score 1-3/10) 0RF atorvastatin 80 MG tablet 80 mg PO QHS Qty: 30 0RF latanoprost 0.005 % drops 1 drp ophthalmic (eye) QHS mirtazapine 30 mg tablet 30 mg PO QHS mometasone 50 mcg/actuation spray,non-aerosol 1 - 2 spray INTRANASAL Q12H metformin 500 mg tablet extended release 24 hr 500 mg PO DAILY Visine Dry Eye Relief 1 % drops 1 - 2 drp EACH EYE Q4H PRN (Reason: dry eye(s)) galantamine 4 mg/mL solution 10 mg PO BID Rx Instructions: TAKE 2.5 ML BY MOUTH TWO TIMES A DAY ADMINISTER WITH MORNING AND EVENING MEALS aspirin [Adult Aspirin Regimen] 81 mg tablet,delayed release (DR/EC) 81 mg PO DAILY diltiazem HCl 180 mg capsule,extended release 24hr 180 mg PO DAILY Qty: 90 3RF Discontinued hydrochlorothiazide 12.5 mg capsule 12.5 mg PO DAILY Referrals / Follow Up: Magan Garcia MD [Primary Care Provider] - Within 1 Week Disposition Disposition (needs filled in before D/C Order can be placed): Home, Self Care
--- NOTE | 2022-12-31 11:17 | PCM.DC.SUM ---
Providers Date of Admission: 12/26/22 Date of Discharge: 12/31/22 Primary Care Physician: Dr. Magan Garcia MD Consultations 12/26/22 18:42 Consult: Cardiology Routine Consulting Provider: Jorge Hills Reason for Consult: chest pain EMERGENT Consult: No MD Notified: Yes Date Notified: 12/26/22 Time Notified: 18:34 Method of Notification: Verbal Method of Consult:: In-Person Reason For Visit: UNSTABLE ANGINA, RENAL FAILURE Diagnosis Discharge Diagnosis (1) Unstable angina: Status: Acute Code(s): I20.0 - Unstable angina (2) Paroxysmal atrial fibrillation: Status: Chronic Code(s): I48.0 - Paroxysmal atrial fibrillation Plan 1. Musculoskeletal chest pain #2 acute renal failure-etiology unclear #3 essential hypertension-patient will remain on her present medications #4 hyperlipidemia-patient will remain on her lipid medications #5 mild dementia-patient will remain on her dementia medications #6 chronic depression/anxiety-patient will remain on her antidepressant #7 type 2 diabetes-patient is on metformin at home, this will be held due to her renal function #8 hypokalemia-etiology unclear, corrected at this time, patient is on IV fluids containing potassium, her BMP will be checked tomorrow #9 GERD-patient will be kept on a PPI #10 coronary artery disease Unstable angina was ruled out Total clinical time spent by myself addressing patient's medical issues, reviewing all of her data, and collaborating with patient's care team: 35 minutes Medications at Discharge Home Medications pantoprazole 40 mg tablet,delayed release 40 mg PO DAILY REFLUX 03/21/17 ezetimibe 10 mg tablet 10 mg PO DAILY 01/27/19 acetaminophen 500 mg tablet 1,000 mg (2 x 500 mg) PO Q6H PRN PRN Pain Score 1-3/10 09/20/19 atorvastatin 80 mg tablet 80 mg PO QHS #30 tabs 09/20/19 fenofibrate 54 mg tablet 54 mg PO DAILY 04/18/20 diltiazem HCl 180 mg capsule,extended release 24 hr 180 mg PO DAILY #90 caps 05/08/22 sucralfate 1 gram tablet 1 g PO TID PRN stomachache 05/08/22 fluticasone 113mcg-salmeterol 14mcg/actuation breath act,powder sensor (AirDuo Digihaler) 113 mcg-14 mcg/actuation Aero Powdr Breath Act W/Sensor#2 Samples 06/04/22 memantine 2 mg/mL oral solution 5 mg (2.5 mL) PO BID #450 mL 08/12/22 nitroglycerin 0.4 mg sublingual tablet 0.4 mg sublingual Q5-15M PRN chest pain #25 tabs 11/11/22 fluoxetine 40 mg capsule 40 mg PO DAILY #90 caps 11/13/22 aspirin 81 mg tablet,delayed release (Adult Aspirin Regimen) 81 mg PO DAILY 12/26/22 galantamine 4 mg/mL oral solution 10 mg PO BID 12/26/22 latanoprost 0.005 % eye drops 1 drp ophthalmic (eye) QHS 12/26/22 metformin 500 mg tablet,extended release 24 hr 500 mg PO DAILY DM 12/26/22 mirtazapine 30 mg tablet 30 mg PO QHS 12/26/22 mometasone 50 mcg/actuation nasal spray 1 - 2 spray intranasal Q12H ALLERGIES 12/26/22 polyethylene glycol 400 1 % eye drops (Visine Dry Eye Relief) 1 - 2 drp EACH EYE Q4H PRN dry eye(s) 12/26/22 Hospital Course Operations None Procedures Cardiac catheterization Summary of Care Provided Minutes Spent on Discharge: 31 Hospital Course: 67-year-old white female was seen in the emergency room at [facility] with complaints of substernal chest pain, work-up in the emergency room included chest x-ray which was unremarkable, patient's troponin was unremarkable. EKG did not show an injury pattern. Patient's chemistry profile was abnormal for creatinine of 5.53. Patient was admitted to PCU for acute renal failure and an initial diagnosis of unstable angina, she was seen in consultation by cardiology who recommended proceeding with a cardiac catheterization when her renal function is improved. Patient was given IV fluids and her labs were monitored. Patient underwent a renal ultrasound which showed no abnormalities. Patient did not have any chest pain during her hospitalization. On 12/31/2022, patient underwent a cardiac catheterization which showed nonocclusive coronary disease, her stent was patent. She was seen and examined on that date: On examination she appeared in good health and spirits, she does not appear to be in any distress. Vital signs as documented. Skin warm and dry and without overt rashes. Neck without JVD, thyroid appears normal, trachea is midline, neck is supple. Lungs clear, normal air movement was noted. Heart exam notable for regular rhythm, normal sounds and absence of murmurs, rubs or gallops. Abdomen unremarkable and without evidence of organomegaly, masses, or abdominal aortic enlargement, bowel sounds are present in all 4 quadrants, no abdominal tenderness was noted. Extremities nonedematous, no cyanosis was noted, no clubbing was noted. Neuro: Cranial nerves II through XII are grossly intact, no focal motor deficits were noted, sensation to light touch and pinprick is intact, motor exam 5/5 throughout. Psych: Patient is alert and oriented x3, she does not appear anxious or depressed, she does not appear agitated. Patient was discharged in stable condition on 12/31/2022, she was instructed to follow-up with her PCP regarding her renal functions, I did make contact with her PCP-Dr. Garcia-and discussed the case with him. Weight / BMI Weight Weight: 67.9 kg Body Mass Index (BMI) 24.9 ABG / Lab / Microbiology Data 12/31/22 05:03 12/31/22 05:03 Laboratory: Laboratory Results - last 24 hr 12/31/22 05:03: WBC 7.5, RBC 3.23 L, Hgb 9.5 L, Hct 31.1 L, MCV 96.3 D, MCH 29.4, MCHC 30.5 L D, RDW Std Deviation 51.6 H, RDW Coeff of [place] 14.6, Plt Count 228, MPV 11.9, Immature Gran % (Auto) 0.500, Neut % (Auto) 49.8, Lymph % (Auto) 35.0, [place] % (Auto) 9.3, Eos % (Auto) 4.7, Baso % (Auto) 0.7, Absolute Neuts (auto) 3.8, Absolute Lymphs (auto) 2.63, Nucleated RBC % 0, PT 13.6, INR 1.0, Sodium 146 H, Potassium 4.7, Chloride 125 H, Carbon Dioxide 16.0 L, Anion Gap 5, BUN 22 H, Creatinine 1.94 H, Estim Creat Clear Calc 24.97, Est GFR (MDRD) Af Amer 33 L, Est GFR (MDRD) Non-Af 27 L, BUN/Creatinine Ratio 11.3, Glucose 105, Calcium 7.4 L D/C Instructions Discharge Diet: No restrictions Weight Bearing Status: Full weight bearing Meaningful Use Info Meaningful Use Diagnoses (Choose all that apply): None applicable Discharge Plan Admission Admit Date/Time: 12/26/22 18:24 Primary Reason for Your Visit: renal failure, chest pain Attending Provider: Sarath Ceja Primary Care Provider: Magan Garcia Consulting Providers: Jorge Hills Discharge Orders/Prescriptions Prescriptions: Continued memantine 2 mg/mL solution 5 mg PO BID Qty: 450 2RF fluoxetine 40 mg capsule 40 mg PO DAILY Qty: 90 1RF fluticasone propion-salmeterol [AirDuo Digihaler] 113 mcg-14 mcg/actuation aero powdr breath act w/sensor 0RF sucralfate 1 gram tablet 1 g PO TID PRN (Reason: stomachache) nitroglycerin 0.4 mg tablet, sublingual 0.4 mg sublingual Q5-15M PRN (Reason: chest pain) Qty: 25 3RF pantoprazole 40 MG tablet 40 mg PO DAILY ezetimibe 10 MG tablet 10 mg PO DAILY Patient Comments: Take 1 tablet by mouth once daily. fenofibrate 54 mg tablet 54 mg PO DAILY Patient Comments: TAKE 1 TABLET BY MOUTH ONCE DAILY acetaminophen 500 MG tablet 1,000 mg PO Q6H PRN PRN (Reason: Pain Score 1-3/10) 0RF atorvastatin 80 MG tablet 80 mg PO QHS Qty: 30 0RF latanoprost 0.005 % drops 1 drp ophthalmic (eye) QHS mirtazapine 30 mg tablet 30 mg PO QHS mometasone 50 mcg/actuation spray,non-aerosol 1 - 2 spray INTRANASAL Q12H metformin 500 mg tablet extended release 24 hr 500 mg PO DAILY Visine Dry Eye Relief 1 % drops 1 - 2 drp EACH EYE Q4H PRN (Reason: dry eye(s)) galantamine 4 mg/mL solution 10 mg PO BID Rx Instructions: TAKE 2.5 ML BY MOUTH TWO TIMES A DAY ADMINISTER WITH MORNING AND EVENING MEALS aspirin [Adult Aspirin Regimen] 81 mg tablet,delayed release (DR/EC) 81 mg PO DAILY diltiazem HCl 180 mg capsule,extended release 24hr 180 mg PO DAILY Qty: 90 3RF Discontinued hydrochlorothiazide 12.5 mg capsule 12.5 mg PO DAILY Referrals / Follow Up: Heaven Garg PA [Non-Staff] - 01/07/23 12:20 am Disposition Disposition (needs filled in before D/C Order can be placed): Home, Self Care Charges/Coding Visit Charges Inpatient E&M: 69188 Disch Hosp >30min
--- NOTE | 2022-12-31 12:23 | PHA.DC_ITS ---
Pharmacy [place] Med Reconciliation Pharmacy Service has performed discharge medication reconciliation for this patient. No new medications at time of discharge review. Medications reviewed are from previously reported home medications. The patient's discharge medication list was reviewed for discrepancies and discrepancies were resolved. Medications at Discharge Home Medications pantoprazole 40 mg tablet,delayed release 40 mg PO DAILY REFLUX 03/21/17 ezetimibe 10 mg tablet 10 mg PO DAILY 01/27/19 acetaminophen 500 mg tablet 1,000 mg (2 x 500 mg) PO Q6H PRN PRN Pain Score 1- 3/10 09/20/19 atorvastatin 80 mg tablet 80 mg PO QHS #30 tabs 09/20/19 fenofibrate 54 mg tablet 54 mg PO DAILY 04/18/20 diltiazem HCl 180 mg capsule,extended release 24 hr 180 mg PO DAILY #90 caps 05/08/22 sucralfate 1 gram tablet 1 g PO TID PRN stomachache 05/08/22 fluticasone 113mcg-salmeterol 14mcg/actuation breath act,powder sensor (AirDuo Digihaler) 113 mcg-14 mcg/actuation Aero Powdr Breath Act W/Sensor#2 Samples 06/04/22 memantine 2 mg/mL oral solution 5 mg (2.5 mL) PO BID #450 mL 08/12/22 nitroglycerin 0.4 mg sublingual tablet 0.4 mg sublingual Q5-15M PRN chest pain #25 tabs 11/11/22 fluoxetine 40 mg capsule 40 mg PO DAILY #90 caps 11/13/22 aspirin 81 mg tablet,delayed release (Adult Aspirin Regimen) 81 mg PO DAILY 12/26/22 galantamine 4 mg/mL oral solution 10 mg PO BID 12/26/22 latanoprost 0.005 % eye drops 1 drp ophthalmic (eye) QHS 12/26/22 metformin 500 mg tablet,extended release 24 hr 500 mg PO DAILY DM 12/26/22 mirtazapine 30 mg tablet 30 mg PO QHS 12/26/22 mometasone 50 mcg/actuation nasal spray 1 - 2 spray intranasal Q12H ALLERGIES 12/26/22 polyethylene glycol 400 1 % eye drops (Visine Dry Eye Relief) 1 - 2 drp EACH EYE Q4H PRN dry eye(s) 12/26/22
--- NOTE | 2022-12-31 15:17 | CASEMGMT ---
Patient has order for discharge. RN CM in to discuss needs at discharge. Patient denies needs at discharge. Patient had no further questions or concerns at this time.
== END 2022-12-31 15:45 | disposition home or self-care (01) | DRG 684 ==
LOC: ED 15:32 → PCU 16:10
PROVIDERS: Family Medicine; Admitting Provider Internal Medicine; Emergency Provider Emergency Medicine; PCP Family Medicine; Visit Provider Internal Medicine
DX: N17.9 Acute kidney failure, unspecified (principal); E11.9 Type 2 diabetes mellitus without complications; I48.0 Paroxysmal atrial fibrillation; J42 Unspecified chronic bronchitis; Z93.3 Colostomy status; F03.A0 Unspecified dementia, mild, without behavioral disturbance, psychotic disturbance, mood disturbance, and anxiety; F32.A Depression, unspecified; E78.5 Hyperlipidemia, unspecified; F17.210 Nicotine dependence, cigarettes, uncomplicated; E87.6 Hypokalemia; I10 Essential (primary) hypertension; K21.9 Gastro-esophageal reflux disease without esophagitis; M54.50 Low back pain, unspecified; I25.10 Atherosclerotic heart disease of native coronary artery without angina pectoris; Z82.3 Family history of stroke; Z95.5 Presence of coronary angioplasty implant and graft; Z79.899 Other long term (current) drug therapy; G89.29 Other chronic pain; Z79.82 Long term (current) use of aspirin; Z79.84 Long term (current) use of oral hypoglycemic drugs
CPT/HCPCS: 36415; 71045; 76770; 80048; 80061; 84484; 85025; 85610; 85730; 93005; 93306; 93454; 97802; 99152; 99153; 99285; J7030; J7050; Q9967; A4216; C1769; C1894; J2405

== ENCOUNTER 2023-01-08 13:43 | Inpatient (IN) | payer MEDICARE, SELFPAY ==
[2023-01-08 13:44] VITALS: BP 143/90; PULSE 101; RESP 20; TEMP 36.6; O2SAT 99; BMI 23.3
--- NOTE | 2023-01-08 14:13 | EDS_ITS ---
HPI History of Present Illness Chief Complaint: Abn Labs Detail of Chief Complaint: Renal failure Informant: patient and family Narrative Narrative: Patient presents the emergency room from her PCPs guidance secondary to renal failure. Patient was admitted here December 26 through December 31 secondary to chest pain and acute renal failure. She was admitted with a creatinine of 5.53 and upon discharge her creatinine was 1.94. She had a cardiac cath that revealed nonocclusive disease. Patient had labs drawn yesterday. She was called and advised to come back to the emergency room because her kidney function is worsening again. Labs that were faxed over indicate a BUN of 27 and a creatinine of 2.97. Her potassium was slightly low at 2.6. Her magnesium was low at 0.7. Patient states that she lives 2 hours away did not want to make the drive yesterday so she waited until today to present to the emergency room. She complains of shortness of breath, dizziness, paresthesias of bilateral arms and hands. She states the symptoms started about 1 day after she was discharged from the hospital. She admits that she has had nausea and poor p.o. intake. She did have vomiting earlier today. [facility] Medical History Abdominal pain Altered mental status Anemia Anxiety Atrial fibrillation Atrial fibrillation with rapid ventricular response Carpal tunnel syndrome Chest pain, unspecified Chronic bronchitis Chronic low back pain Colitis Constipation Debility Depression Diverticulitis Encephalopathy Failure of outpatient treatment Fecal impaction of colon GERD (gastroesophageal reflux disease) High cholesterol High triglycerides History of Clostridium difficile infection History of left heart catheterization (LHC) (~02/13/16) HTN (hypertension) Hyperlipidemia Hypokalemia Insomnia Irritable bowel syndrome with constipation Large bowel obstruction Nausea & vomiting Osteoarthritis Paroxysmal atrial fibrillation Restless legs syndrome Rheumatoid arthritis Sepsis Sigmoid diverticulitis Skin ulcer Tobacco dependence syndrome Visual hallucinations Home Medications pantoprazole 40 mg tablet,delayed release 40 mg PO DAILY REFLUX 03/21/17 [History Last Taken 12/25/22] ezetimibe 10 mg tablet 10 mg PO DAILY 01/27/19 [History Last Taken 12/25/22] acetaminophen 500 mg tablet 1,000 mg (2 x 500 mg) PO Q6H PRN PRN Pain Score 1- 309/20/19 [Rx Last Taken Unknown] atorvastatin 80 mg tablet 80 mg PO QHS #30 tabs 09/20/19 [Rx Last Taken 12/25/22] fenofibrate 54 mg tablet 54 mg PO DAILY 04/18/20 [History Last Taken 12/25/22] diltiazem HCl 180 mg capsule,extended release 24 hr 180 mg PO DAILY #90 caps 05/08/22 [Rx Last Taken 12/25/22] sucralfate 1 gram tablet 1 g PO TID PRN stomachache 05/08/22 [History Last Taken 12/25/22] memantine 2 mg/mL oral solution 5 mg (2.5 mL) PO BID #450 mL 08/12/22 [Rx Last Taken 12/25/22] nitroglycerin 0.4 mg sublingual tablet 0.4 mg sublingual Q5-15M PRN chest pain #25 tabs 11/11/22 [Rx Last Taken Unknown] fluoxetine 40 mg capsule 40 mg PO DAILY #90 caps 11/13/22 [Rx Last Taken 12/25/22] aspirin 81 mg tablet,delayed release (Adult Aspirin Regimen) 81 mg PO DAILY 12/26/22 [History Last Taken 12/25/22] galantamine 4 mg/mL oral solution 10 mg PO BID 12/26/22 [History Last Taken 12/25/22] latanoprost 0.005 % eye drops 1 drp ophthalmic (eye) QHS 12/26/22 [History Last Taken 12/25/22] metformin 500 mg tablet,extended release 24 hr 500 mg PO DAILY DM 12/26/22 [History Last Taken 12/25/22] mirtazapine 30 mg tablet 30 mg PO QHS 12/26/22 [History Last Taken 12/25/22] mometasone 50 mcg/actuation nasal spray 1 - 2 spray intranasal Q12H ALLERGIES 12/26/22 [History Last Taken Unknown] polyethylene glycol 400 1 % eye drops (Visine Dry Eye Relief) 1 - 2 drp EACH EYE Q4H PRN dry eye(s) 12/26/22 [History Last Taken 12/25/22] Allergy/AdvReac Type Severity Reaction Status Date / Time bee venom protein (honey bee) Allergy Anaphylaxis Verified 01/08/23 13:47 Jitxemd-Hee-Yki Reductase AdvReac Severe Myalgias Verified 01/08/23 13:47 Inhibitor [Ndlanrl-VVX-LbK Reductase Inhibitor] promethazine HCl AdvReac Vomiting Verified 01/08/23 13:47 [From Phenergan] tuberculin, purified protein AdvReac Swelling Verified 01/08/23 13:47 deriva Family History Mother Heart disease Myocardial infarction CVA (cerebral vascular accident) Sister Diabetes Brother Parkinson disease Surgical History Cataract extraction status of left eye History of cardioversion (09/02/19) History of cholecystectomy History of colostomy History of creation of ostomy History of hand surgery History of hysterectomy History of laparoscopy History of partial colectomy Social History Smoking Status: Current some day smoker tobacco type: cigarettes Tobacco: How many years used: 40 alcohol intake: never substance use type: does not use caffeine: Yes Type: carbonated beverages and coffee what type of physical activity do you participate in: walking frequency: 1-2 times per week brandon/confucianist: Rastafari seatbelt use: always ROS ROS ED Constitutional Constitutional ED: Denies chills or fever(s) Eyes Eyes: Denies change in vision or discharge from eye(s) ENT ENT ED: Denies discharge from eye(s), rhinorrhea or sore throat Cardiovascular Cardiovascular: Denies chest pain or palpitations Respiratory/Chest Respiratory/Chest: Reports dyspnea; Denies cough Gastrointestinal Gastrointestinal: Reports nausea and vomiting; Denies abdominal pain or diarrhea Genitourinary Genitourinary ED: Denies dysuria Musculoskeletal Musculoskeletal: Denies back pain or extremity pain Integumentary Denies Abrasions or rash Neurologic Neurologic: Reports paresthesias and weakness; Denies headache(s) Psychiatric Psychiatric: Denies anxiety or depression Allergic/Immunologic Allergic/Immunologic ED: Denies lip swelling or urticaria EXAM Physical Exam Const Vital Signs: 01/08/23 13:44 Temperature 97.9 F Temperature Source Temporal Pulse Rate 101 H Respiratory Rate 20 H Blood Pressure 143/90 H Blood Pressure Mean 107 Pulse Ox 99 Oxygen Delivery Method Room Air Positive well nourished and well developed General Appearance ED: well developed HEENT Reports normocephalic and head/scalp atraumatic Eyes PERRL and EOMs intact bilaterally Neck supple Chest Wall inspection of chest normal and palpation of chest normal Resp normal respiratory effort and clear to auscultation bilaterally Cardio regular rate and regular rhythm GI non-tender Auscultation: hypoactive bowel sounds Palpation: soft Extremity normal to inspection Neuro oriented x3 Neuro Narrative: No focal neurologic deficit. 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 Labwork obtained to evaluate for leukocytosis, anemia, and electrolyte derangement. EKG obtained to evaluate for cardiac arrhythmia/ischemia. Chest x-ray obtained to evaluate for acute lung pathology, cardiac size, or mediastinal abnormality. History & Record Review Discussion w/independent historian: Patient and Family Additional record(s) reviewed:: Prior inpatient record, Prior ED visit and Prior labs Lab Data Attestation: I reviewed the patient's lab results. Labs: Laboratory Results - last 24 hr 01/08/23 14:00 WBC 9.9 RBC 3.46 L Hgb 10.5 L Hct 31.1 L MCV 89.9 MCH 30.3 MCHC 33.8 RDW Std Deviation 45.9 H RDW Coeff of Wilmar 14.2 Plt Count 341 MPV 11.1 Immature Gran % (Auto) 0.500 Neut % (Auto) 61.0 Lymph % (Auto) 27.6 Sully % (Auto) 8.4 Eos % (Auto) 2.0 Baso % (Auto) 0.5 Absolute Neuts (auto) 6.1 Absolute Lymphs (auto) 2.74 Nucleated RBC % 0 Sodium 138 Potassium 3.1 L Chloride 108 H Carbon Dioxide 15.0 L Anion Gap 15 BUN 33 H Creatinine 3.08 H Estim Creat Clear Calc 15.73 Est GFR (MDRD) Af Amer 19 L Est GFR (MDRD) Non-Af 16 L BUN/Creatinine Ratio 10.7 Glucose 164 H Calcium 7.5 L Magnesium 0.6 L* Total Bilirubin 0.30 Direct Bilirubin 0.10 AST 18 ALT 20 Alkaline Phosphatase 82 Total Protein 7.9 Albumin 3.7 Globulin 4.2 Radiography Chest X-Ray - ED: 1 View, Read by ED Physician, Chronic Changes and No Infiltrates Diagnostic Testing: Clinical Impression(s) from Imaging Studies Chest X-Ray 01/08/23 14:32 IMPRESSION: There are no acute findings. Electronically Signed: Vernon Noel MD at 14:46 EDT , EKG Initial EKG: Attestation: I personally reviewed and interpreted this EKG as follows: Interpretation: Sinus Rhythm (Sinus at [address] depression of approximately 1 mm. This appears similar to the EKG she had performed on admission on December 26, but had improved on repeat study December 30.) Treatment and Re-Evaluation :: CBC reveals normal white count at 9.9 with a hemoglobin of 10.5. Chemistry studies significant for potassium of 3.1 and a bicarb of 15. Her BUN is 33 and her creatinine is 3.08. Glucose is 164. Magnesium is low at 0.6. LFTs are unremarkable. Portable chest x-ray per my interpretation was chronic changes with no acute findings. Radiology interpretation is reviewed. EKG does reveal anterior ST depression, similar to the EKG performed on her last admission. After electrolyte replacement her EKG did improve during that last admission. She underwent a cardiac cath recently that showed nonocclusive cardiac disease. Patient is ordered IV magnesium and potassium replacement in addition to the IV fluids that she is receiving. I will speak with hospitalist regarding admission. Discharge Plan Triage Chief Complaint: Abn Labs ED Provider: Maria Isabel Lemus Dx/Rx/DC Orders Clinical Impression: Renal failure, ST segment changes on electrocardiography, Hypokalemia, Hypomagnesemia Prescriptions: No Action memantine 2 mg/mL solution 5 mg PO BID Qty: 450 2RF fluoxetine 40 mg capsule 40 mg PO DAILY Qty: 90 1RF fluticasone propion-salmeterol [AirDuo Digihaler] 113 mcg-14 mcg/actuation aero powdr breath act w/sensor 0RF sucralfate 1 gram tablet 1 g PO TID PRN (Reason: stomachache) nitroglycerin 0.4 mg tablet, sublingual 0.4 mg sublingual Q5-15M PRN (Reason: chest pain) Qty: 25 3RF pantoprazole 40 MG tablet 40 mg PO DAILY ezetimibe 10 MG tablet 10 mg PO DAILY Patient Comments: Take 1 tablet by mouth once daily. fenofibrate 54 mg tablet 54 mg PO DAILY Patient Comments: TAKE 1 TABLET BY MOUTH ONCE DAILY acetaminophen 500 MG tablet 1,000 mg PO Q6H PRN PRN (Reason: Pain Score 1-3/10) 0RF atorvastatin 80 MG tablet 80 mg PO QHS Qty: 30 0RF latanoprost 0.005 % drops 1 drp ophthalmic (eye) QHS mirtazapine 30 mg tablet 30 mg PO QHS mometasone 50 mcg/actuation spray,non-aerosol 1 - 2 spray INTRANASAL Q12H metformin 500 mg tablet extended release 24 hr 500 mg PO DAILY Visine Dry Eye Relief 1 % drops 1 - 2 drp EACH EYE Q4H PRN (Reason: dry eye(s)) galantamine 4 mg/mL solution 10 mg PO BID Rx Instructions: TAKE 2.5 ML BY MOUTH TWO TIMES A DAY ADMINISTER WITH MORNING AND EVENING MEALS aspirin [Adult Aspirin Regimen] 81 mg tablet,delayed release (DR/EC) 81 mg PO DAILY diltiazem HCl 180 mg capsule,extended release 24hr 180 mg PO DAILY Qty: 90 3RF Primary Care Provider: Magan Garcia Referrals: Magan Garcia MD [Primary Care Provider] - Disposition Disposition: Acute Care Hospital [facility]
[2023-01-08] MEDS: 0.9% Normal Saline 1,000 ML 1000 ML IV (14:31)
--- NOTE | 2023-01-08 14:32 | RAD_ITS ---
STUDY: XR Chest 1 View 01/08/2023 2:30 PM REASON FOR EXAM: Female, 67 years old. CHEST PAIN sob COMPARISON: 12/26/2022 TECHNIQUE: XR Chest 1 View FINDINGS: There is no demonstrated pleural abnormality. Stable right midlung calcified granuloma. Normal heart size. Normal mediastinum. Normal rai. Prominent appearing increased interstitial lung markings. Normal visualized pulmonary arteries. There is atherosclerotic calcification of the aortic arch with tortuosity. There are diffuse degenerative changes of the visualized thoracic spine. There is degenerative osteoarthritis of the bilateral shoulders. There is no demonstrated abnormality of the visualized soft tissue structures of the upper abdomen. RAD/Chest 1 View (Portable) IMPRESSION: There are no acute findings. Electronically Signed: Vernon Noel MD at 14:46 EDT ,
[2023-01-08 14:44] LABS: Absolute Lymphocyte Count 2.74 X10^3/uL (0.83-4.51); Absolute Neutrophil Count 6.1 X10^3/uL (2.0-7.7); Basophil# 0.05 X10^3/uL; Basophil% 0.5 % (0-1); Hematocrit 31.1 % (37-47); Hemoglobin 10.5 g/dL (12.0-15.0); Lymphocyte # 2.74 X10^3/ul (0.83-4.51); Lymphocyte % 27.6 % (19-41); Mean Corp Hgb Conc 33.8 g/dL (32-36); Mean Corpuscular Hgb 30.3 pg (27.0-32.0); Mean Corpuscular Volume 89.9 fL (81-99); Mean Platelet Vol. 11.1 fl (6.2-12.0); Monocyte# 0.83 X10^3/uL; Monocyte% 8.4 % (0-10); NRBC Flagged by Analyzer 0 % (0-5); Neutrophil # 6.05 X10^3/uL (2.7-7.7); Platelet Count 341 K/mm3 (150-450); RBC Distribution Width CV 14.2 % (11.6-14.6); RBC Distribution Width SD 45.9 fl (35.1-43.9); Red Blood Count 3.46 M/mm3 (4.2-5.4); White Blood Count 9.9 K/mm3 (4.4-11.0)
[2023-01-08 14:58] LABS: AST(SGOT) 18 U/L (15-37); Alanine Aminotransfer ALT/SGPT 20 U/L (13-56); Albumin, Serum 3.7 g/dL (3.2-5.0); Alkaline Phosphatase 82 U/L (45-117); Anion Gap 15 (5-15); BUN 33 mg/dL (7-18); BUN/Creat Ratio 10.7 RATIO (10-20); Calcium,Total 7.5 mg/dL (8.5-10.1); Chloride 108 mmol/L (98-107); Creatinine, Serum 3.08 mg/dL (0.55-1.02); EST Glomerular Filtration Rate 16 mL/min (>60); Est Glom Filt Rate - Afr Amer 19 mL/min (>60); Estimated Creatinine Clearance 15.73 ml/min; Globulin 4.2 g/dL (2.2-4.2); Glucose 164 mg/dL (74-106); Magnesium 0.6 mg/dL (1.6-2.6); Potassium 3.1 mmol/L (3.5-5.1); Protein, Total 7.9 g/dL (6.4-8.2); Sodium Level 138 mmol/L (136-145)
[2023-01-08 15:01] LABS: Mucous, Urine 0 SEEN /hpf (<or=2+)
--- NOTE | 2023-01-08 15:09 | NURSING ---
DR ALONSO FOR DR ROSAS
[2023-01-08 15:17] VITALS: BP 113/97; PULSE 78; RESP 16; TEMP 36.8; O2SAT 98
--- NOTE | 2023-01-08 15:18 | NURSING ---
PCU OLEGHE RENAL FAILURE, HYPOKALEMIA, HYPOMAGNESEMIA, EKG CHANGES
[2023-01-08] MEDS: Magnesium Sulfate 4gm/100mL 4 GM/100 ML IV.SOLN. IV (15:24)
[2023-01-08 15:25] LABS: Color, Urine Yellow (Yellow); Glucose, Dipstick Normal (Normal); Ketone-Dipstick Negative (Negative); Leukocyte Esterase-Dipstick 500 /ul (Negative); Nitrite-Dipstick Negative (Negative); Occult Blood-Urine 25 /ul (Negative); Protein-Dipstick 30 mg/dl (Negative); Urine Bilirubin Dipstick Negative (Negative); Urine Clarity Sl. Cloudy (Clear); Urine Urobilinogen Normal (Normal)
[2023-01-08] MEDS: Potassium Chloride 10mEq/100mL 10 MEQ/100 ML IV.SOLN. 100 MEQ IV BOLUS ×4 (15:41→20:04)
[2023-01-08] MEDS: 0.9% Normal Saline 1,000 ML 150 ML IV ×2 (15:46→20:36)
[2023-01-08 15:50] LABS: Bacteria 1+ /hpf (None Seen); Red Blood Cells-Urine 0-5 SEEN /hpf (0-5); Squamous Epithelial Cells - UA 0-5 SEEN /hpf (5-10); White Blood Cells 10-25 SEEN /hpf (0-5)
[2023-01-08 15:51] LABS: Transitional Epithelial - Ur 0-5 SEEN /hpf (0-5)
[2023-01-08 16:20] VITALS: BP 132/72; PULSE 80; RESP 14; TEMP 36.8; O2SAT 97
--- NOTE | 2023-01-08 16:34 | HP.PCM_ITS ---
[facility] - General General Date of Admission: 01/08/23 Date of Service: 01/08/23 Chief Complaint: Generalized weakness, dizziness and fatigue HPI Narrative TY HOFF, is a very pleasant 67 F with a history of type 2 diabetes and status post colostomy and was recently just discharged about a week ago following admission for acute kidney injury. Presented to her primary care physician's office for follow-up visit and noted rising creatinine again and so patient sent to the emergency department. Complains of generalized weakness, easy fatigability, poor exercise tolerance and exertional dyspnea. For over a year has had chronic upper GI symptoms including nausea, vomiting, regurgitation, intermittent episodes of dysphagia with food getting stuck in the mid chest, anorexia, epigastric discomfort, easy satiety, sitophobia and a 30 pound weight loss over the last few months. Patient has a colostomy and states that her stools have been completely liquid for the last several months. He and emergency department noted to have severe hypomagnesemia and mild hypokalemia as well as creatinine of 3.08 from 1.94 when she was discharged on the . Renal ultrasound done during that admission was normal. [facility] Medical History Abdominal pain Altered mental status Anemia Anxiety Atrial fibrillation Atrial fibrillation with rapid ventricular response Carpal tunnel syndrome Chest pain, unspecified Chronic bronchitis Chronic low back pain Colitis Constipation Debility Depression Diverticulitis Encephalopathy Failure of outpatient treatment Fecal impaction of colon GERD (gastroesophageal reflux disease) High cholesterol High triglycerides History of Clostridium difficile infection History of left heart catheterization (LHC) (~02/13/16) HTN (hypertension) Hyperlipidemia Hypokalemia Insomnia Irritable bowel syndrome with constipation Large bowel obstruction Nausea & vomiting Osteoarthritis Paroxysmal atrial fibrillation Restless legs syndrome Rheumatoid arthritis Sepsis Sigmoid diverticulitis Skin ulcer Tobacco dependence syndrome Visual hallucinations Home Medications pantoprazole 40 mg tablet,delayed release 40 mg PO BID REFLUX 03/21/17 [History Last Taken 01/08/23] ezetimibe 10 mg tablet 10 mg PO DAILY see PCP 01/27/19 [History Last Taken 01/08/23] acetaminophen 500 mg tablet 1,000 mg (2 x 500 mg) PO Q6H PRN PRN Pain Score 1- 3/09/20/19 [Rx Last Taken 01/05/23] atorvastatin 80 mg tablet 80 mg PO QHS see PCP #30 tabs 09/20/19 [Rx Last Taken 01/07/23] fenofibrate 54 mg tablet 54 mg PO DAILY see PCP 04/18/20 [History Last Taken 01/08/23] diltiazem HCl 180 mg capsule,extended release 24 hr 180 mg PO DAILY see PCP #90 caps 05/08/22 [Rx Last Taken 01/08/23] sucralfate 1 gram tablet 1 g PO TID PRN stomachache 05/08/22 [History Last Taken 01/07/23] memantine 2 mg/mL oral solution 5 mg (2.5 mL) PO BID see PCP #450 mL 08/12/22 [Rx Last Taken 01/07/23] nitroglycerin 0.4 mg sublingual tablet 0.4 mg sublingual Q5-15M PRN chest pain #25 tabs 11/11/22 [Rx Last Taken Unknown] fluoxetine 40 mg capsule 40 mg PO DAILY see PCP #90 caps 11/13/22 [Rx Last Taken 01/08/23] aspirin 81 mg tablet,delayed release (Adult Aspirin Regimen) 81 mg PO DAILY see PCP 12/26/22 [History Last Taken 01/07/23] galantamine 4 mg/mL oral solution 10 mg PO BID see PCP 12/26/22 [History Last Taken 01/07/23] latanoprost 0.005 % eye drops 1 drp ophthalmic (eye) QHS see PCP 12/26/22 [ History Last Taken 01/07/23] metformin 500 mg tablet,extended release 24 hr 500 mg PO DAILY DM 12/26/22 [History Last Taken 01/08/23] mirtazapine 30 mg tablet 30 mg PO QHS see PCP 12/26/22 [History Last Taken 01/07/23] mometasone 50 mcg/actuation nasal spray 1 - 2 spray intranasal Q12H ALLERGIES 12/26/22 [History Last Taken Unknown] polyethylene glycol 400 1 % eye drops (Visine Dry Eye Relief) 1 - 2 drp EACH EYE Q4H PRN dry eye(s) 12/26/22 [History Last Taken 01/08/23] Allergy/AdvReac Type Severity Reaction Status Date / Time bee venom protein (honey bee) Allergy Anaphylaxis Verified 01/08/23 13:47 [id number] Reductase AdvReac Severe Myalgias Verified 01/08/23 13:47 Inhibitor promethazine HCl AdvReac Vomiting Verified 01/08/23 13:47 [From Phenergan] tuberculin, purified protein AdvReac Swelling Verified 01/08/23 13:47 deriva Family History Mother Heart disease Myocardial infarction CVA (cerebral vascular accident) Sister Diabetes Brother Parkinson disease Surgical History Cataract extraction status of left eye History of cardioversion (09/02/19) History of cholecystectomy History of colostomy History of creation of ostomy History of hand surgery History of hysterectomy History of laparoscopy History of partial colectomy Social History Smoking Status: Current some day smoker tobacco type: cigarettes Tobacco: How many years used: 40 alcohol intake: never substance use type: does not use caffeine: Yes Type: carbonated beverages and coffee what type of physical activity do you participate in: walking frequency: 1-2 times per week brandon/buddhism: Jehovah'S Witness seatbelt use: always ROS ROS Narrative Denies any chest pain or shortness of breath at rest. All other systems reviewed and essentially negative as above in the body of the history. Vital Signs Vital Signs Vital Signs: 01/08/23 13:44 01/08/23 15:17 Temperature 36.6 C 36.8 C Temperature Source Temporal Oral Pulse Rate 101 H 78 Respiratory Rate 20 H 16 Blood Pressure 143/90 H 113/97 H Blood Pressure Mean 107 102 Pulse Ox 99 98 Oxygen Delivery Method Room Air Room Air Weight Weight: 63.503 kg Body Mass Index (BMI) 23.3 Physical Exam Narrative General exam. Middle-aged woman, very pleasant, not in any obvious distress, weak appearing but not acutely or chronically ill-appearing not toxic appearing HEENT. Oral mucosa dry no pallor jaundice no cyanosis Neck. Neck is supple Heart. First and second sounds heard no murmurs Lungs. Clear to auscultation Abdomen. Laparotomy scar noted, colostomy with bag with a small amount of light brown liquid stool noted. Epigastric tenderness 2+. No masses felt and no organomegaly. 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 Conscious alert and oriented x3. Cranial 2-12 grossly intact. Results Medical Records Data Attestation: I reviewed the patient's medical records Lab / Micro Data Attestation: I reviewed the patient's lab results. 01/08/23 14:00 01/08/23 14:00 Labs: Laboratory Results - last 24 hr 01/08/23 14:00: WBC 9.9, RBC 3.46 L, Hgb 10.5 L, Hct 31.1 L, MCV 89.9, MCH 30.3, MCHC 33.8, RDW Std Deviation 45.9 H, RDW Coeff of Wilmar 14.2, Plt Count 341, MPV 11.1, Immature Gran % (Auto) 0.500, Neut % (Auto) 61.0, Lymph % (Auto) 27.6, [place] % (Auto) 8.4, Eos % (Auto) 2.0, Baso % (Auto) 0.5, Absolute Neuts (auto) 6.1, Absolute Lymphs (auto) 2.74, Nucleated RBC % 0, Sodium 138, Potassium 3.1 L , Chloride 108 H, Carbon Dioxide 15.0 L, Anion Gap 15, BUN 33 H, Creatinine 3.08 H, Estim Creat Clear Calc 15.73, Est GFR (MDRD) Af Amer 19 L, Est GFR (MDRD) Non-Af 16 L, BUN/Creatinine Ratio 10.7, Glucose 164 H, Calcium 7.5 L, Magnesium 0.6 L*, Total Bilirubin 0.30, Direct Bilirubin 0.10, AST 18, ALT 20, Alkaline Phosphatase 82, Total Protein 7.9, Albumin 3.7, Globulin 4.2 01/08/23 14:55: Urine Color Yellow, Urine Clarity Sl. Cloudy, Urine pH 6.0, Ur Specific [place] 1.020, Urine Protein 30 H, Urine Glucose (UA) Normal, Urine Ketones Negative, Urine Occult Blood 25 H, Urine Nitrite Negative, Urine Bilirubin Negative, Urine Urobilinogen Normal, Ur Leukocyte Esterase 500 H, Urine RBC 0-5 SEEN, Urine WBC 10-25 SEEN, Ur Squamous Epith Cells 0-5 SEEN, Ur Transition Epith Cell 0-5 SEEN, Urine Bacteria 1+, Urine Mucus 0 SEEN Radiology Impression Chest X-Ray 01/08/23 14:32 IMPRESSION: There are no acute findings. Electronically Signed: Vernon Noel MD at 14:46 EDT , Assessment & Plan Assessment/Plan (1) Acute kidney injury: PLAN: Plan Assessment and plan 1. Acute kidney injury. This is most likely secondary to volume depletion/dehydration secondary to diminished intake and high output from colostomy. Hydrochlorothiazide was discontinued at last admission and patient did not resume this when she went home. We will check urine sodium and replete volume with IV fluids. Consult nephrology. Renal ultrasound at most recent admission was normal. 2. Multiple electrolyte abnormalities including hypokalemia, hypomagnesemia and hyperchloremic metabolic acidosis. Most likely this is secondary to reduced intake and GI losses. Has received 40 mg of IV potassium in the ED as well as 4 g of magnesium. We will recheck levels in the morning and continue to replete as necessary. Regarding the metabolic acidosis suspect high-output from colostomy is the main contributor. We will check lactic acid given that patient is on metformin and would recommend metformin be discontinued indefinitely. See further thoughts regarding this below. We will replete volume with bicarbonate drip. We will, input from nephrology as well. Check serum phosphorus. 3. Chronic nausea, vomiting, anorexia, epigastric pain, sitophobia and weight loss. Patient appears to have functional/nonulcer dyspepsia. Possible that patient's metformin contributing to her GI symptoms including the diarrhea (high output from colostomy). Would recommend discontinue metformin completely and using alternative oral hypoglycemic agent. While in the hospital we will keep patient on basal and mealtime insulin. Diabetic gastroparesis potentially also the etiology. We will be ordering gastric emptying studies. May benefit from EGD. We will consult gastroenterology to also look into the above symptoms. For now we will hold aspirin as well. 4. Possible esophageal dysphagia given her suggestive history. Has a history of hiatal hernia however esophageal dysmotility also a possibility. Will order x-ray esophagram and GI to can look into as well. 5. Reported history of dementia. Per patient's report, she has had formal cognitive testing by neurologist and this has been ruled out. Noted patient on galantamine and memantine both of which could potentially be contributing to her GI symptoms. No clear indication and so we will discontinue to hopefully avoid polypharmacy issues. This diagnosis should be removed from problem list. Charges/Coding Visit Charges Inpatient E&M: 31882 Init Hosp L3
[2023-01-08 16:44] VITALS: BMI 24.6
[2023-01-08 17:22] LABS: Lactic Acid 0.7 mmol/L (0.4-1.9)
[2023-01-08 17:36] LABS: Bedside Glucose 81 mg/dL (74-106)
[2023-01-08] MEDS: Ceftriaxone 1 GM/50 ML BAG IV (18:55)
[2023-01-08] MEDS: Mirtazapine 30 MG Tablet PO (20:03)
[2023-01-08] MEDS: Latanoprost 0.005% 1 Bottle 1 DRP OPHTHALMIC (20:03)
[2023-01-08] MEDS: Atorvastatin Calcium 80 MG Tablet PO (20:03)
[2023-01-08] MEDS: Pantoprazole Sodium 40 MG Tablet PO (20:03)
[2023-01-08] MEDS: Heparin Injection (Vial) 5,000 UNIT/ML VIAL 5000 UNIT SC (20:04)
[2023-01-08 20:24] VITALS: BP 126/71; PULSE 72; RESP 16; TEMP 36.8; O2SAT 99
[2023-01-08] MEDS: MELATONIN 3 MG TABLET PO (20:36)
[2023-01-08 22:00] VITALS: PULSE 64
[2023-01-09] MEDS: Temazepam 15 MG Capsule PO ×2 (00:10→20:47)
[2023-01-09 00:14] VITALS: BP 116/85; PULSE 65; RESP 12; TEMP 36.6; O2SAT 97
[2023-01-09] MEDS: Heparin Injection (Vial) 5,000 UNIT/ML VIAL 5000 UNIT SC ×3 (05:31→20:47)
[2023-01-09 05:37] VITALS: BP 132/73; PULSE 66; RESP 16; TEMP 36.3; O2SAT 98
[2023-01-09 05:38] LABS: Absolute Lymphocyte Count 2.23 X10^3/uL (0.83-4.51); Absolute Neutrophil Count 3.9 X10^3/uL (2.0-7.7); Basophil# 0.03 X10^3/uL; Basophil% 0.4 % (0-1); Eosinophil# 0.24 X10^3/uL; Eosinophils% 3.4 % (0-5); Hematocrit 26.7 % (37-47); Hemoglobin 8.4 g/dL (12.0-15.0); Lymphocyte # 2.23 X10^3/ul (0.83-4.51); Lymphocyte % 31.5 % (19-41); Mean Corp Hgb Conc 31.5 g/dL (32-36); Mean Corpuscular Hgb 29.1 pg (27.0-32.0); Mean Corpuscular Volume 92.4 fL (81-99); Mean Platelet Vol. 10.9 fl (6.2-12.0); Monocyte# 0.69 X10^3/uL; Monocyte% 9.7 % (0-10); NRBC Flagged by Analyzer 0 % (0-5); Neutrophil # 3.87 X10^3/uL (2.7-7.7); Neutrophil % 54.6 % (47-70); Platelet Count 257 K/mm3 (150-450); RBC Distribution Width CV 14.4 % (11.6-14.6); RBC Distribution Width SD 47.8 fl (35.1-43.9); Red Blood Count 2.89 M/mm3 (4.2-5.4); White Blood Count 7.1 K/mm3 (4.4-11.0)
[2023-01-09 06:23] LABS: ALB/GLOB Ratio 0.9 RATIO (0.9-2.4); AST(SGOT) 17 U/L (15-37); Alanine Aminotransfer ALT/SGPT 15 U/L (13-56); Albumin, Serum 2.8 g/dL (3.2-5.0); Alkaline Phosphatase 60 U/L (45-117); Anion Gap 10 (5-15); BUN 30 mg/dL (7-18); BUN/Creat Ratio 13.8 RATIO (10-20); Calcium,Total 6.9 mg/dL (8.5-10.1); Chloride 116 mmol/L (98-107); Creatinine, Serum 2.18 mg/dL (0.55-1.02); EST Glomerular Filtration Rate 24 mL/min (>60); Est Glom Filt Rate - Afr Amer 29 mL/min (>60); Estimated Creatinine Clearance 22.22 ml/min; Glucose 103 mg/dL (74-106); Magnesium 1.6 mg/dL (1.6-2.6); Phosphorus 3.9 mg/dL (2.5-4.9); Potassium 3.5 mmol/L (3.5-5.1); Protein, Total 5.8 g/dL (6.4-8.2); Sodium Level 143 mmol/L (136-145); Thyroid Stim Hormone (TSH) 3.11 uIU/mL (0.358-3.74)
[2023-01-09 06:39] LABS: Urine Sodium 38 mmol/L (Not Establ.)
[2023-01-09 07:44] LABS: Osmolality, Urine 226 mOsm/KG
--- NOTE | 2023-01-09 08:07 | PN.HOSP_ITS ---
Reason for Visit Reason for Visit: Diagnoses Acute kidney failure, unspecified (01/08/23) Subjective Subjective Reports she is feeling better than she did yesterday and has somewhat less nausea and abdominal pain though still does not feel well Objective Data Objective Data Vital Signs: Vital Signs Temp Pulse Resp BP Pulse Ox O2 Del Method 97.3 F L 66 16 132/73 H 98 Room Air 01/09/23 05:37 01/09/23 05:37 01/09/23 05:37 01/09/23 05:37 01/09/23 05:37 01/09/23 05:37 Oxygen Delivery Method Room Air Weight: 67.2 kg Body Mass Index (BMI) 24.6 Intake & Output: Intake and Output for Last 24 Hours 01/07/23 01/08/23 01/09/23 23:59 23:59 23:59 Intake Total 3015.42 / 3015.42 222 / 222 Output Total 200 / 200 300 / 300 Balance 2815.42 / 2815.42 -78 / -78 Lab / Micro Data 01/09/23 05:00 01/09/23 05:00 Labs: Laboratory Results - last 24 hr 01/08/23 14:00: WBC 9.9, RBC 3.46 L, Hgb 10.5 L, Hct 31.1 L, MCV 89.9, MCH 30.3, MCHC 33.8, RDW Std Deviation 45.9 H, RDW Coeff of [place] 14.2, Plt Count 341, MPV 11.1, Immature Gran % (Auto) 0.500, Neut % (Auto) 61.0, Lymph % (Auto) 27.6, [place] % (Auto) 8.4, Eos % (Auto) 2.0, Baso % (Auto) 0.5, Absolute Neuts (auto) 6.1, Absolute Lymphs (auto) 2.74, Nucleated RBC % 0, Sodium 138, Potassium 3.1 L , Chloride 108 H, Carbon Dioxide 15.0 L, Anion Gap 15, BUN 33 H, Creatinine 3.08 H, Estim Creat Clear Calc 15.73, Est GFR (MDRD) Af Amer 19 L, Est GFR (MDRD) Non-Af 16 L, BUN/Creatinine Ratio 10.7, Glucose 164 H, Calcium 7.5 L, Magnesium 0.6 L*, Total Bilirubin 0.30, Direct Bilirubin 0.10, AST 18, ALT 20, Alkaline Phosphatase 82, Total Protein 7.9, Albumin 3.7, Globulin 4.2 01/08/23 14:55: Urine Color Yellow, Urine Clarity Sl. Cloudy, Urine pH 6.0, Ur Specific [place] 1.020, Urine Protein 30 H, Urine Glucose (UA) Normal, Urine Ketones Negative, Urine Occult Blood 25 H, Urine Nitrite Negative, Urine Bilirubin Negative, Urine Urobilinogen Normal, Ur Leukocyte Esterase 500 H, Urine RBC 0-5 SEEN, Urine WBC 10-25 SEEN, Ur Squamous Epith Cells 0-5 SEEN, Ur Transition Epith Cell 0-5 SEEN, Urine Bacteria 1+, Urine Mucus 0 SEEN 01/08/23 16:43: Lactic Acid 0.7 01/08/23 17:14: POC Glucose 81 01/09/23 05:00: WBC 7.1, RBC 2.89 L, Hgb 8.4 L, Hct 26.7 L, MCV 92.4, MCH 29.1, MCHC 31.5 L D, RDW Std Deviation 47.8 H, RDW Coeff of [place] 14.4, Plt Count 257, MPV 10.9, Immature Gran % (Auto) 0.400, Neut % (Auto) 54.6, Lymph % (Auto) 31.5, [place] % (Auto) 9.7, Eos % (Auto) 3.4, Baso % (Auto) 0.4, Absolute Neuts (auto) 3.9, Absolute Lymphs (auto) 2.23, Nucleated RBC % 0, Sodium 143, Potassium 3.5, Chloride 116 H, Carbon Dioxide 17.0 L, Anion Gap 10, BUN 30 H, Creatinine 2.18 H , Estim Creat Clear Calc 22.22, Est GFR (MDRD) Af Amer 29 L, Est GFR (MDRD) Non- Af 24 L, BUN/Creatinine Ratio 13.8, Glucose 103, Calcium 6.9 L, Phosphorus 3.9, Magnesium 1.6, Total Bilirubin 0.10 L, AST 17, ALT 15, Alkaline Phosphatase 60, Total Protein 5.8 L, Albumin 2.8 L, Globulin 3.0, Albumin/Globulin Ratio 0.9, TSH 3.11 01/09/23 05:30: Urine Osmolality 226, Ur Random Sodium 38 Radiography Diagnostic Testing: Radiology Impression Chest X-Ray 07/19/23 14:32 IMPRESSION: There are no acute findings. Electronically Signed: Vernon Noel MD at 14:46 EDT Reading Location ID and State: [facility] / [place] , Service support , Physical Exam Narrative General: Alert, oriented, no apparent distress HEENT: Atraumatic, normocephalic Eyes: Anicteric, normal conjunctiva, extraocular movements grossly intact Neck: Supple Respiratory: Clear to auscultation bilaterally, normal respiratory effort Cardiovascular: Regular rate and rhythm GI: Soft, nontender, nondistended Extremities: No edema Musculoskeletal: Moving all extremities Neuro: No overt focal neurological deficits Skin: No rashes appreciated Psych: Cooperative Assessment & Plan Assessment/Plan (1) Acute kidney injury: PLAN: Plan #CINDY on CKD unclear subtype -Admitted earlier this month for CINDY with creatinine of 5.53 -Values before that were from 2021 and were roughly 1.3, no interim creatinines available -Given her food aversion and nausea and vomiting suspect this is prerenal -When she was discharged from the hospital 12/31 her creatinine was 1.94 and she Re-presented 8 days later with creatinine of 3.08 -Creatinine this a.m. is 2.18 with IV fluids -Had renal ultrasound 12/26 with no acute findings -UA not consistent with UTI -Urine sodium 28 -Nephrology consulted #Chronic nausea/vomiting/dysphagia and history of colostomy -Home medications adjusted in the event any of these are contributing -Patient to have gastric emptying study as given her diabetes she may have component of gastroparesis -GI consulted -Metformin discontinued -TSH 3.11 -Liver panel unremarkable #Multiple electrolyte derangements -Including hypokalemia, hypocalcemia, hypomagnesemia, low bicarb -Remains on IV fluids with potassium -Replace calcium and magnesium #Chronic normocytic anemia -Has significantly variable baseline, hemoglobin on admission 10.5 and today 8.4 however suspect that she was largely volume depleted as her hemoglobin was 9.5 on 12/31 -We will check iron studies, B12, folate especially given her ostomy #Type 2 diabetes mellitus -Glucose checks and sliding scale insulin -Holding home metformin, continue long-acting insulin -Gastric emptying studies #Reported history of dementia and history of depression -Patient on galantamine and memantine on home med list however per patient she h ad formal cognitive testing by neurology and dementia was ruled out -May be pseudodementia -Continue home fluoxetine and home Remeron #DVT ppx: Heparin subcu Rebecca Pool MD Time spent in the patient's overall evaluation,decision-making process, review of diagnostic data, adjustment of management, discussion with other providers, nursing nursing and ancillary staff involved in patient's care documentation, 51 minutes Charges/Coding Visit Charges Inpatient E&M: 61792 Subs Hosp L3
[2023-01-09] MEDS: Acetaminophen 325 MG Tablet 650 MG PO (08:22)
[2023-01-09] MEDS: Ezetimibe 10 MG Tablet PO (08:24)
[2023-01-09] MEDS: Fluoxetine HCl 40 MG CAPSULE PO (08:24)
[2023-01-09] MEDS: dilTIAZem CD 180 MG Capsule PO (08:24)
[2023-01-09] MEDS: Pantoprazole Sodium 40 MG Tablet PO ×2 (08:24→20:47)
[2023-01-09 08:27] VITALS: BP 130/89; PULSE 68; RESP 16; TEMP 36.2; O2SAT 100
--- NOTE | 2023-01-09 09:00 | NM_ITS ---
CLINICAL: 67-year-old female with history of dyspepsia. None available SEMI-SOLID PHASE 99m Tc SULFUR COLLOID GASTRIC EMPTYING STUDY COMPARISON: None available FINDINGS: The patient was administered 1.1 mCi of 99m Tc sulfur colloid mixed with oatmeal and consumed per os. Image acquisitions in the anterior-posterior projections were obtained for 60 minutes. There is prompt visualization of the stomach. There is no gastroesophageal reflux identified. The T ? linear fit was calculated to be 20.30 minutes, (Normal: 12-56 minutes). NM/Gastric Emptying Study IMPRESSION: 1. NORMAL 99m Tc sulfur colloid semi-solid phase (oatmeal) gastric emptying imaging examination. A. There is normal and preserved semi-solid phase gastric emptying compared to normal controls with maintained first order kinetics throughout all components of the examination. (Jose J et al, J Nucl Med Tech 38: 186, 2010). Electronically Signed: Skinny Ignacio, at 20:49 EDT ,
[2023-01-09] MEDS: Magnesium Sulfate 4gm/100mL 4 GM/100 ML IV.SOLN. IV (10:14)
[2023-01-09 11:24] LABS: Bedside Glucose 103 mg/dL (74-106)
--- NOTE | 2023-01-09 13:26 | PCM.CONS.R ---
Assessment & Plan Assessment/Plan (1) Acute kidney injury: (2) Hypomagnesemia: (3) Hypokalemia: (4) Decreased appetite: PLAN: Plan This is a pleasant 67-year-old female with past medical history significant for diabetes mellitus type 2, hypertension, A-fib, anemia of chronic disease, RLS, history of colectomy due to perforated diverticulitis status post colostomy placed 2018 who presented to the emergency room yesterday under the direction of her PCP for abnormal labs, elevated creatinine. Nephrology consulted for acute kidney injury. Patient has not been following with nephrology in past. In reviewing past serum creatinine trends patient has had noted mild elevation in creatinine in early 2021. August 02, 2021 serum creatinine 1.28 mg/dL, December 17, 2021 serum creatinine 1.31 mg/dL. No lab work to review from November 2021 to December 2022. Patient was admitted to the hospital on December 26, 2022 serum creatinine 5.53 mg/dL and with IV fluids, holding metformin and hydrochlorothiazide serum creatinine improved daily to 1.94mg/dL on December 31 (discharge December 31). Yesterday her creatinine was 3.08 and today creatinine improved to 2.18 mg/dL again on IV fluids. Renal ultrasound last hospitalization did not show any acute process, no hydronephrosis. Patient has not been taking NSAIDs. No recent GOGO or ARB's. Patient has been off hydrochlorothiazide. To note patient did resume metformin after last hospitalization. Quite possibly CINDY is prerenal from significant volume depletion, nausea, vomiting and loose/watery stools along with unintentional weight loss. At this time there is no acute indication for EGG PASTEURIZER. Patient is nonoliguric. She does appear to be mildly hypovolemic on exam and recommended continue with gentle IV fluids. Urine sodium 38 after being on IVFs. Potassium was 3.1 yesterday and today is at 3.5. Work-up is in process for unintentional weight loss with nausea/vomiting/dysphagia and loose/watery stools (more watery than normal per patient), patient is to have gastric emptying study and GI has been consulted. Patient has mild metabolic acidosis, bicarb has improved currently at 17, possibly from GI losses and recommend to continue holding metformin. Magnesium yesterday was 0.6 and with replacement improved to 1.6 today. Blood pressures have been relatively controlled on diltiazem. Quite possibly baseline serum creatinine around 1.2 mg/dL but will follow serum creatinine trajectory. UA from this admission 30 protein, 25 occult blood, leukocyte Estrace 500; urine cultures pending. Patient has history of diabetes mellitus type 2, A1c was 6.3% in August 2020. Further orders are forthcoming as hospitalization evolves, thank you for allowing us to participate in the care of Ms. Yu HPI Consult Data Date of Consult: 01/09/23 HPI Narrative HPI Narrative: TY YU, is a 67 F with past medical history significant for diabetes mellitus type 2, hypertension, A-fib, anemia of chronic disease, RLS, history of colectomy due to perforated diverticulitis status post colostomy placed 2019 who presented to the emergency room yesterday as advised by her PCP due to abnormal labs, elevated creatinine. Patient was admitted for CINDY, volume depletion, hypokalemia and hypomagnesemia. Nephrology consulted for CINDY. Patient reports she has not been seen by guncotton packer in the past. Patient was admitted to the hospital few weeks ago for nausea, vomiting, chest pressure; admitted for CINDY. CINDY was felt to be from volume depletion; patient has not required any EGG PASTEURIZER. Her serum creatinine on admission (December 26) was 5.53 mg/dL and by time of discharge on December 31 serum creatinine had been improving daily down to 1.94 mg/dL. Also to note during that hospitalization patient was seen by cardiology and she did undergo left heart catheterization on December 31 with findings: nonobstructive coronary arteries, previously placed left main stent is open. Yesterday in the emergency room serum creatinine 3.08. Patient is on IV fluids and today her serum creatinine is 2.18 mg/dL. Patient reports that over the past 3 months she has had poor oral intake, intermittent nausea and vomiting and also noted loose stools/output from her ostomy bag. Patient denies any recent NSAID use. Denies rash or arthralgias. Denies hematuria. [facility] Medical History Abdominal pain Altered mental status Anemia Anxiety Atrial fibrillation Atrial fibrillation with rapid ventricular response Carpal tunnel syndrome Chest pain, unspecified Chronic bronchitis Chronic low back pain Colitis Constipation Debility Depression Diverticulitis Encephalopathy Failure of outpatient treatment Fecal impaction of colon GERD (gastroesophageal reflux disease) High cholesterol High triglycerides History of Clostridium difficile infection History of left heart catheterization (LHC) (~02/13/16) HTN (hypertension) Hyperlipidemia Hypokalemia Insomnia Irritable bowel syndrome with constipation Large bowel obstruction Nausea & vomiting Osteoarthritis Paroxysmal atrial fibrillation Restless legs syndrome Rheumatoid arthritis Sepsis Sigmoid diverticulitis Skin ulcer Tobacco dependence syndrome Visual hallucinations Home Medications pantoprazole 40 mg tablet,delayed release 40 mg PO BID REFLUX 03/21/17 [History Last Taken 01/08/23] ezetimibe 10 mg tablet 10 mg PO DAILY see PCP 01/27/19 [History Last Taken 01/08/23] acetaminophen 500 mg tablet 1,000 mg (2 x 500 mg) PO Q6H PRN PRN Pain Score 1-3/10 09/20/19 [Rx Last Taken 01/05/23] atorvastatin 80 mg tablet 80 mg PO QHS see PCP #30 tabs 09/20/19 [Rx Last Taken 01/07/23] fenofibrate 54 mg tablet 54 mg PO DAILY see PCP 04/18/20 [History Last Taken 01/08/23] diltiazem HCl 180 mg capsule,extended release 24 hr 180 mg PO DAILY see PCP #90 caps 05/08/22 [Rx Last Taken 01/08/23] sucralfate 1 gram tablet 1 g PO TID PRN stomachache 05/08/22 [History Last Taken 01/07/23] memantine 2 mg/mL oral solution 5 mg (2.5 mL) PO BID see PCP #450 mL 08/12/22 [Rx Last Taken 01/07/23] nitroglycerin 0.4 mg sublingual tablet 0.4 mg sublingual Q5-15M PRN chest pain #25 tabs 11/11/22 [Rx Last Taken Unknown] fluoxetine 40 mg capsule 40 mg PO DAILY see PCP #90 caps 11/13/22 [Rx Last Taken 01/08/23] aspirin 81 mg tablet,delayed release (Adult Aspirin Regimen) 81 mg PO DAILY see PCP 12/26/22 [History Last Taken 01/07/23] galantamine 4 mg/mL oral solution 10 mg PO BID see PCP 12/26/22 [History Last Taken 01/07/23] latanoprost 0.005 % eye drops 1 drp ophthalmic (eye) QHS see PCP 12/26/22 [History Last Taken 01/07/23] metformin 500 mg tablet,extended release 24 hr 500 mg PO DAILY DM 12/26/22 [History Last Taken 01/08/23] mirtazapine 30 mg tablet 30 mg PO QHS see PCP 12/26/22 [History Last Taken 01/07/23] mometasone 50 mcg/actuation nasal spray 1 - 2 spray intranasal Q12H ALLERGIES 12/26/22 [History Last Taken Unknown] polyethylene glycol 400 1 % eye drops (Visine Dry Eye Relief) 1 - 2 drp EACH EYE Q4H PRN dry eye(s) 12/26/22 [History Last Taken 01/08/23] Allergy/AdvReac Type Severity Reaction Status Date / Time bee venom protein (honey bee) Allergy Anaphylaxis Verified 01/08/23 13:47 [id number] Reductase AdvReac Severe Myalgias Verified 01/08/23 13:47 Inhibitor promethazine HCl AdvReac Vomiting Verified 01/08/23 13:47 [From Phenergan] tuberculin, purified protein AdvReac Swelling Verified 01/08/23 13:47 deriva Family History Mother Heart disease Myocardial infarction CVA (cerebral vascular accident) Sister Diabetes Brother Parkinson disease Surgical History Cataract extraction status of left eye History of cardioversion (09/02/19) History of cholecystectomy History of colostomy History of creation of ostomy History of hand surgery History of hysterectomy History of laparoscopy History of partial colectomy Social History Smoking Status: Current some day smoker tobacco type: cigarettes Tobacco: How many years used: 40 alcohol intake: never substance use type: does not use caffeine: Yes Type: carbonated beverages and coffee what type of physical activity do you participate in: walking frequency: 1-2 times per week brandon/cheondoism: Hoahaoism seatbelt use: always ROS ROS Narrative As in HPI and past medical history Physical Exam Narrative Alert and oriented x3, no apparent distress S1, S2, RRR Lung sounds clear anteriorly posteriorly no wheezes rhonchi rales noted Abdomen soft, nontender, ostomy intact No edema Lab / Micro Data 01/09/23 05:00 01/09/23 05:00 Labs: Laboratory Results - last 24 hr 01/08/23 14:00: WBC 9.9, RBC 3.46 L, Hgb 10.5 L, Hct 31.1 L, MCV 89.9, MCH 30.3, MCHC 33.8, RDW Std Deviation 45.9 H, RDW Coeff of [place] 14.2, Plt Count 341, MPV 11.1, Immature Gran % (Auto) 0.500, Neut % (Auto) 61.0, Lymph % (Auto) 27.6, [place] % (Auto) 8.4, Eos % (Auto) 2.0, Baso % (Auto) 0.5, Absolute Neuts (auto) 6.1, Absolute Lymphs (auto) 2.74, Nucleated RBC % 0, Sodium 138, Potassium 3.1 L, Chloride 108 H, Carbon Dioxide 15.0 L, Anion Gap 15, BUN 33 H, Creatinine 3.08 H, Estim Creat Clear Calc 15.73, Est GFR (MDRD) Af Amer 19 L, Est GFR (MDRD) Non-Af 16 L, BUN/Creatinine Ratio 10.7, Glucose 164 H, Calcium 7.5 L, Magnesium 0.6 L*, Total Bilirubin 0.30, Direct Bilirubin 0.10, AST 18, ALT 20, Alkaline Phosphatase 82, Total Protein 7.9, Albumin 3.7, Globulin 4.2 01/08/23 14:55: Urine Color Yellow, Urine Clarity Sl. Cloudy, Urine pH 6.0, Ur Specific [place] 1.020, Urine Protein 30 H, Urine Glucose (UA) Normal, Urine Ketones Negative, Urine Occult Blood 25 H, Urine Nitrite Negative, Urine Bilirubin Negative, Urine Urobilinogen Normal, Ur Leukocyte Esterase 500 H, Urine RBC 0-5 SEEN, Urine WBC 10-25 SEEN, Ur Squamous Epith Cells 0-5 SEEN, Ur Transition Epith Cell 0-5 SEEN, Urine Bacteria 1+, Urine Mucus 0 SEEN 01/08/23 16:43: Lactic Acid 0.7 01/08/23 17:14: POC Glucose 81 01/09/23 05:00: WBC 7.1, RBC 2.89 L, Hgb 8.4 L, Hct 26.7 L, MCV 92.4, MCH 29.1, MCHC 31.5 L D, RDW Std Deviation 47.8 H, RDW Coeff of [place] 14.4, Plt Count 257, MPV 10.9, Immature Gran % (Auto) 0.400, Neut % (Auto) 54.6, Lymph % (Auto) 31.5, [place] % (Auto) 9.7, Eos % (Auto) 3.4, Baso % (Auto) 0.4, Absolute Neuts (auto) 3.9, Absolute Lymphs (auto) 2.23, Nucleated RBC % 0, Sodium 143, Potassium 3.5, Chloride 116 H, Carbon Dioxide 17.0 L, Anion Gap 10, BUN 30 H, Creatinine 2.18 H, Estim Creat Clear Calc 22.22, Est GFR (MDRD) Af Amer 29 L, Est GFR (MDRD) Non-Af 24 L, BUN/Creatinine Ratio 13.8, Glucose 103, Calcium 6.9 L, Phosphorus 3.9, Magnesium 1.6, Total Bilirubin 0.10 L, AST 17, ALT 15, Alkaline Phosphatase 60, Total Protein 5.8 L, Albumin 2.8 L, Globulin 3.0, Albumin/Globulin Ratio 0.9, TSH 3.11 01/09/23 05:30: Urine Osmolality 226, Ur Random Sodium 38 01/09/23 10:58: POC Glucose 103 Micro: Microbiology 01/09/23 00:00 Urine, Clean Catch Urine Culture - Preliminary Culture exhibits no growth. Radiology Impression Chest X-Ray 01/08/23 14:32 IMPRESSION: There are no acute findings. Electronically Signed: Vernon Noel MD at 14:46 EDT ,
[2023-01-09 14:13] VITALS: BP 127/77; PULSE 63; RESP 16; TEMP 36.2; O2SAT 97
--- NOTE | 2023-01-09 15:28 | CHAPLAIN ---
Type of Pastoral Visit _x__ Initial Visit ___ Follow-up Visit ___ On-call Visit ___ General Patient Visit ___ Spiritual Assessment ___ Family Conference ___ Bereavement ___ Rapid Response ___ Code Blue ___ Other (describe below) Pastoral Care Referral From _x__ Patient ___ Family ___ Nurse ___ Physician ___ Switching Operator ___ Metal Furniture Repairer ___ Other (describe below) Sacrament/Intervention _x__ Active listening ___ Anointing ___ Mandaeism ___ Bereavement ___ Communion ___ Lisset exploration ___ ___ Life review ___ Prayer ___ Reconciliation ___ Sacrament of Sick ___ Supportive presence ___ Wedding ___ Other (describe below) Pastoral Comments patient reports feeling better and hopes to not needing to 'come back again so soon'; son is with patient and she states that he is her greatest support; pt denies needing further assistance at this time
--- NOTE | 2023-01-09 16:00 | CASEMGMT ---
CAROLIN CM chart review: Patient was admitted 12/26-12/31/22 for unstable angina and CINDY. See CAROLIN CM assessment from 12/27/22. Patient was discharged home with follow-up plans in place. Patient returned 01/08/23 after being advised by PCP for abnormal labs. Patient admitted for renal failure, Hypokalemia, hypomagnesemia. Patient states he followed up with PCP on 01/07/23. Patient states she was taking medication as prescribed. Patient denies needs or concerns at discharge. CM will continue to follow this patient and plan for a safe discharge.
[2023-01-09 17:11] LABS: Bedside Glucose 104 mg/dL (74-106)
--- NOTE | 2023-01-09 17:11 | CON.PCM.GI_ITS ---
HPI Consult Data Date of Consult: 01/09/23 HPI Narrative Reason for Consultation: Nausea and vomiting HPI Narrative: TY HOFF, is a 67 F who presents with abdominal pain followed by nausea and vomiting.She has of CAD, status post left main coronary artery PTCA/stent ([facility]- 2012), paroxysmal atrial fibrillation, hyperlipidemia, and hypertension. She was recently just discharged about a week ago following admission for acute kidney injury. Presented to her primary care physician's office for follow-up visit and noted rising creatinine again and so patient sent to the emergency department. Complains of generalized weakness, easy fatigability, poor exercise tolerance and exertional dyspnea. For over a year has had chronic upper GI symptoms including nausea, vomiting, regurgitation, intermittent episodes of dysphagia with food getting stuck in the mid chest, anorexia, epigastric discomfort, easy satiety, sitophobia and a 30 pound weight loss over the last few months. Patient has a colostomy and states that her stools have been completely liquid for the last several months. He and emergency department noted to have severe hypomagnesemia and mild hypokalemia as well as creatinine of 3.08 from 1.94 when she was discharged on the . Renal ultrasound done during that admission was normal. [facility] Medical History Abdominal pain Altered mental status Anemia Anxiety Atrial fibrillation Atrial fibrillation with rapid ventricular response Carpal tunnel syndrome Chest pain, unspecified Chronic bronchitis Chronic low back pain Colitis Constipation Debility Depression Diverticulitis Encephalopathy Failure of outpatient treatment Fecal impaction of colon GERD (gastroesophageal reflux disease) High cholesterol High triglycerides History of Clostridium difficile infection History of left heart catheterization (LHC) (~02/13/16) HTN (hypertension) Hyperlipidemia Hypokalemia Insomnia Irritable bowel syndrome with constipation Large bowel obstruction Nausea & vomiting Osteoarthritis Paroxysmal atrial fibrillation Restless legs syndrome Rheumatoid arthritis Sepsis Sigmoid diverticulitis Skin ulcer Tobacco dependence syndrome Visual hallucinations Home Medications pantoprazole 40 mg tablet,delayed release 40 mg PO BID REFLUX 03/21/17 [History Last Taken 01/08/23] ezetimibe 10 mg tablet 10 mg PO DAILY see PCP 01/27/19 [History Last Taken 01/08/23] acetaminophen 500 mg tablet 1,000 mg (2 x 500 mg) PO Q6H PRN PRN Pain Score 1- 3/09/20/19 [Rx Last Taken 01/05/23] atorvastatin 80 mg tablet 80 mg PO QHS see PCP #30 tabs 09/20/19 [Rx Last Taken 01/07/23] fenofibrate 54 mg tablet 54 mg PO DAILY see PCP 04/18/20 [History Last Taken 01/08/23] diltiazem HCl 180 mg capsule,extended release 24 hr 180 mg PO DAILY see PCP #90 caps 05/08/22 [Rx Last Taken 01/08/23] sucralfate 1 gram tablet 1 g PO TID PRN stomachache 05/08/22 [History Last Taken 01/07/23] memantine 2 mg/mL oral solution 5 mg (2.5 mL) PO BID see PCP #450 mL 08/12/22 [Rx Last Taken 01/07/23] nitroglycerin 0.4 mg sublingual tablet 0.4 mg sublingual Q5-15M PRN chest pain #25 tabs 11/11/22 [Rx Last Taken Unknown] fluoxetine 40 mg capsule 40 mg PO DAILY see PCP #90 caps 11/13/22 [Rx Last Taken 01/08/23] aspirin 81 mg tablet,delayed release (Adult Aspirin Regimen) 81 mg PO DAILY see PCP 12/26/22 [History Last Taken 01/07/23] galantamine 4 mg/mL oral solution 10 mg PO BID see PCP 12/26/22 [History Last Taken 01/07/23] latanoprost 0.005 % eye drops 1 drp ophthalmic (eye) QHS see PCP 12/26/22 [History Last Taken 01/07/23] metformin 500 mg tablet,extended release 24 hr 500 mg PO DAILY DM 12/26/22 [History Last Taken 01/08/23] mirtazapine 30 mg tablet 30 mg PO QHS see PCP 12/26/22 [History Last Taken 01/07/23] mometasone 50 mcg/actuation nasal spray 1 - 2 spray intranasal Q12H ALLERGIES 12/26/22 [History Last Taken Unknown] polyethylene glycol 400 1 % eye drops (Visine Dry Eye Relief) 1 - 2 drp EACH EYE Q4H PRN dry eye(s) 12/26/22 [History Last Taken 01/08/23] Allergy/AdvReac Type Severity Reaction Status Date / Time bee venom protein (honey bee) Allergy Anaphylaxis Verified 01/08/23 13:47 [id number] Reductase AdvReac Severe Myalgias Verified 01/08/23 13:47 Inhibitor promethazine HCl AdvReac Vomiting Verified 01/08/23 13:47 [From Phenergan] tuberculin, purified protein AdvReac Swelling Verified 01/08/23 13:47 deriva Family History Mother Heart disease Myocardial infarction CVA (cerebral vascular accident) Sister Diabetes Brother Parkinson disease Surgical History Cataract extraction status of left eye History of cardioversion (09/02/19) History of cholecystectomy History of colostomy History of creation of ostomy History of hand surgery History of hysterectomy History of laparoscopy History of partial colectomy Social History Smoking Status: Current some day smoker tobacco type: cigarettes Tobacco: How many years used: 40 alcohol intake: never substance use type: does not use caffeine: Yes Type: carbonated beverages and coffee what type of physical activity do you participate in: walking frequency: 1-2 times per week brandon/sikhism: Tenriism seatbelt use: always ROS ROS Narrative As in HPI and past medical history Physical Exam Narrative Alert and oriented x3, no apparent distress S1, S2, RRR Lung sounds clear anteriorly posteriorly no wheezes rhonchi rales noted Abdomen soft, nontender, ostomy intact No edema Lab / Micro Data 01/09/23 05:00 01/09/23 05:00 Labs: Laboratory Results - last 24 hr 01/08/23 16:43: Lactic Acid 0.7 01/08/23 17:14: POC Glucose 81 01/09/23 05:00: WBC 7.1, RBC 2.89 L, Hgb 8.4 L, Hct 26.7 L, MCV 92.4, MCH 29.1, MCHC 31.5 L D, RDW Std Deviation 47.8 H, RDW Coeff of [place] 14.4, Plt Count 257, MPV 10.9, Immature Gran % (Auto) 0.400, Neut % (Auto) 54.6, Lymph % (Auto) 31.5, [place] % (Auto) 9.7, Eos % (Auto) 3.4, Baso % (Auto) 0.4, Absolute Neuts (auto) 3.9, Absolute Lymphs (auto) 2.23, Nucleated RBC % 0, Sodium 143, Potassium 3.5, Chloride 116 H, Carbon Dioxide 17.0 L, Anion Gap 10, BUN 30 H, Creatinine 2.18 H , Estim Creat Clear Calc 22.22, Est GFR (MDRD) Af Amer 29 L, Est GFR (MDRD) Non- Af 24 L, BUN/Creatinine Ratio 13.8, Glucose 103, Calcium 6.9 L, Phosphorus 3.9, Magnesium 1.6, Total Bilirubin 0.10 L, AST 17, ALT 15, Alkaline Phosphatase 60, Total Protein 5.8 L, Albumin 2.8 L, Globulin 3.0, Albumin/Globulin Ratio 0.9, TSH 3.11 01/09/23 05:30: Urine Osmolality 226, Ur Random Sodium 38 01/09/23 10:58: POC Glucose 103 Micro: Microbiology 01/09/23 00:00 Urine, Clean Catch Urine Culture - Preliminary Culture exhibits no growth. Assessment & Plan Assessment/Plan (1) Acute kidney injury: PLAN: Plan Assessment and plan Chronic nausea, vomiting, anorexia, epigastric pain, sitophobia and weight loss. Patient appears to have functional/nonulcer dyspepsia. Possible that patient's metformin contributing to her GI symptoms including the diarrhea (high output from colostomy). Would recommend discontinue metformin completely and using alternative oral hypoglycemic agent. While in the hospital we will keep patient on basal and mealtime insulin. Diabetic gastroparesis potentially also the etiology. We will be ordering gastric emptying studies. May benefit from EGD. We will consult gastroenterology to also look into the above symptoms. For now we will hold aspirin as well. Possible esophageal dysphagia given her suggestive history. Has a history of hiatal hernia however esophageal dysmotility also a possibility. Will order x- ray esophagram and GI to can look into as well. Patient supposed to get an upper endoscopy today. I saw her this morning. But, she ate breakfast.
[2023-01-09 20:42] VITALS: BP 144/76; PULSE 75; RESP 18; TEMP 36.6; O2SAT 100
[2023-01-09] MEDS: Atorvastatin Calcium 80 MG Tablet PO (20:47)
[2023-01-09] MEDS: Mirtazapine 30 MG Tablet PO (20:47)
[2023-01-09] MEDS: Latanoprost 0.005% 1 Bottle 1 DRP OPHTHALMIC (20:48)
[2023-01-09 22:38] LABS: Bedside Glucose 113 mg/dL (74-106)
[2023-01-10] VITALS (9 sets, daily range): BP systolic 122–159; BP diastolic 65–95; PULSE 64–72; RESP 16–18; TEMP 36.4–37.1; O2SAT 96–100; BMI 24.6
[2023-01-10 05:54] LABS: Absolute Lymphocyte Count 1.56 X10^3/uL (0.83-4.51); Absolute Neutrophil Count 3.5 X10^3/uL (2.0-7.7); Basophil# 0.04 X10^3/uL; Basophil% 0.7 % (0-1); Eosinophil# 0.23 X10^3/uL; Eosinophils% 3.9 % (0-5); Hematocrit 24.7 % (37-47); Hemoglobin 7.9 g/dL (12.0-15.0); Lymphocyte # 1.56 X10^3/ul (0.83-4.51); Lymphocyte % 26.1 % (19-41); Mean Corpuscular Hgb 29.7 pg (27.0-32.0); Mean Corpuscular Volume 92.9 fL (81-99); Mean Platelet Vol. 10.9 fl (6.2-12.0); Monocyte# 0.63 X10^3/uL; Monocyte% 10.6 % (0-10); NRBC Flagged by Analyzer 0 % (0-5); Neutrophil # 3.49 X10^3/uL (2.7-7.7); Neutrophil % 58.4 % (47-70); Platelet Count 247 K/mm3 (150-450); RBC Distribution Width CV 14.6 % (11.6-14.6); RBC Distribution Width SD 49.5 fl (35.1-43.9); Red Blood Count 2.66 M/mm3 (4.2-5.4)
--- NOTE | 2023-01-10 05:55 | EKG12_ITS ---
Test Reason : AM EKG Blood Pressure : / mmHG Vent. Rate : 069 BPM Atrial Rate : 000 BPM P-R Int : 000 ms QRS Dur : 076 ms QT Int : 444 ms P-R-T Axes : 000 054 059 degrees QTc Int : 475 ms Normal sinus rhythm Abnormal ECG When compared with ECG of 08-JAN-2023 14:16, MANUAL COMPARISON REQUIRED, DATA IS UNCONFIRMED Confirmed by LILLY CHACKO, KINSEY ([id number]), editorial assistant MARYBETH ALBERTO ([id number]) on 01/14/2023 7:20:12 AM Referred By: CATA Confirmed By:KINSEY CARR MD
[2023-01-10 06:07] LABS: Partial Thromboplast Time 31.3 Seconds (24.1-36.2)
[2023-01-10 06:08] LABS: International Normalized Ratio 1.1
[2023-01-10 06:38] LABS: Anion Gap 7 (5-15); BUN 26 mg/dL (7-18); BUN/Creat Ratio 14.7 RATIO (10-20); Calcium,Total 7.5 mg/dL (8.5-10.1); Chloride 119 mmol/L (98-107); Creatinine, Serum 1.77 mg/dL (0.55-1.02); EST Glomerular Filtration Rate 30 mL/min (>60); Est Glom Filt Rate - Afr Amer 37 mL/min (>60); Estimated Creatinine Clearance 27.37 ml/min; Ferritin 36 ng/mL (8-252); Glucose 109 mg/dL (74-106); Iron Binding Capacity,Total 302 ug/dL (250-450); Potassium 3.9 mmol/L (3.5-5.1); Sodium Level 144 mmol/L (136-145)
[2023-01-10 06:40] LABS: Bedside Glucose 98 mg/dL (74-106)
--- NOTE | 2023-01-10 07:56 | PN.HOSP_ITS ---
Reason for Visit Reason for Visit: Diagnoses Acute kidney failure, unspecified (01/08/23) Subjective Subjective Patient feeling better today, has no complaints Objective Data Objective Data Vital Signs: Vital Signs Temp Pulse Resp BP Pulse Ox O2 Del Method 97.8 F 64 18 139/95 H 98 Room Air 01/10/23 06:15 01/10/23 06:15 01/10/23 06:15 01/10/23 06:15 01/10/23 06:15 01/10/23 06:15 Oxygen Delivery Method Room Air Weight: 67.2 kg Body Mass Index (BMI) 24.6 Intake & Output: Intake and Output for Last 24 Hours 01/08/23 01/09/23 01/10/23 23:59 23:59 23:59 Intake Total 3015.42 / 3015.42 3242 / 3242 945 / 945 Output Total 200 / 200 300 / 300 Balance 2815.42 / 2815.42 2942 / 2942 945 / 945 Lab / Micro Data 01/10/23 05:05 01/10/23 05:05 Labs: Laboratory Results - last 24 hr 01/09/23 10:58: POC Glucose 103 01/09/23 16:51: POC Glucose 104 01/09/23 20:41: POC Glucose 113 H 01/10/23 05:05: WBC 6.0, RBC 2.66 L, Hgb 7.9 L, Hct 24.7 L, MCV 92.9, MCH 29.7, MCHC 32.0, RDW Std Deviation 49.5 H, RDW Coeff of [place] 14.6, Plt Count 247, MPV 10.9, Immature Gran % (Auto) 0.300, Neut % (Auto) 58.4, Lymph % (Auto) 26.1, [place] % (Auto) 10.6 H, Eos % (Auto) 3.9, Baso % (Auto) 0.7, Absolute Neuts (auto) 3.5, Absolute Lymphs (auto) 1.56, Nucleated RBC % 0, PT 14.0, INR 1.1, APTT 31.3, Sodium 144, Potassium 3.9, Chloride 119 H, Carbon Dioxide 18.0 L, Anion Gap 7, BUN 26 H, Creatinine 1.77 H, Estim Creat Clear Calc 27.37, Est GFR (MDRD) Af Amer 37 L, Est GFR (MDRD) Non-Af 30 L, BUN/Creatinine Ratio 14.7, Glucose 109 H, Calcium 7.5 L, Magnesium 2.0, TIBC 302, Ferritin 36, Folate 5.10 01/10/23 06:16: POC Glucose 98 Micro: Microbiology 01/09/23 00:00 Urine, Clean Catch Urine Culture - Preliminary Culture exhibits no growth. Radiography Diagnostic Testing: Radiology Impression Gastric Emptying Nuclear Medicine 01/09/23 09:00 IMPRESSION: 1. NORMAL 99m Tc sulfur colloid semi-solid phase (oatmeal) gastric emptying imaging examination. A. There is normal and preserved semi-solid phase gastric emptying compared to normal controls with maintained first order kinetics throughout all components of the examination. (Joes J et al, J Nucl Med Tech 38: 186, 2010). Electronically Signed: Skinny Mateus, at 20:49 EDT , Physical Exam Narrative General: Alert, oriented, no apparent distress HEENT: Atraumatic, normocephalic Eyes: Anicteric, normal conjunctiva, extraocular movements grossly intact Neck: Supple Respiratory: Clear to auscultation bilaterally, normal respiratory effort Cardiovascular: Regular rate and rhythm GI: Soft, nontender, nondistended Extremities: No edema Musculoskeletal: Moving all extremities Neuro: No overt focal neurological deficits Skin: No rashes appreciated Psych: Cooperative Assessment & Plan Assessment/Plan (1) Acute kidney injury: PLAN: Plan #CINDY on CKD unclear subtype -Admitted earlier this month for CINDY with creatinine of 5.53 -Values before that were from 2021 and were roughly 1.3, no interim creatinines available -Given her food aversion and nausea and vomiting suspect this is prerenal -When she was discharged from the hospital 12/31 her creatinine was 1.94 and she Re-presented 8 days later with creatinine of 3.08 -Creatinine this a.m. is 2.18 with IV fluids -Had renal ultrasound 12/26 with no acute findings -UA not consistent with UTI -Urine sodium 28 -Nephrology consulted -01/10: Continues to improve, continue present management and optimize fluid and nutritional status. Discussed with nephrology, patient does not need outpatient nephrology follow-up urgently at this time unless she has a strong preference. Patient would like to follow-up with her PCP instead for the time being #Chronic nausea/vomiting/dysphagia and history of colostomy -Home medications adjusted in the event any of these are contributing -Patient to have gastric emptying study as given her diabetes she may have component of gastroparesis -GI consulted -Metformin discontinued -TSH 3.11 -Liver panel unremarkable -01/10: Patient was post EGD but had breakfast yesterday. Did have gastric emptying study which was normal. EGD today. #Multiple electrolyte derangements -Including hypokalemia, hypocalcemia, hypomagnesemia, low bicarb -Remains on IV fluids with potassium -Replace calcium and magnesium -01/10: Improving #Chronic normocytic anemia -Has significantly variable baseline, hemoglobin on admission 10.5 and today 8.4 however suspect that she was largely volume depleted as her hemoglobin was 9.5 on 12/31 -We will check iron studies, B12, folate especially given her ostomy -01/10: Did drop but likely in part is delusional, awaiting B12 and final iron studies, folate on the low end of normal at 5.1 so we will add replacement #Type 2 diabetes mellitus -Glucose checks and sliding scale insulin -Holding home metformin, continue long-acting insulin -Gastric emptying studies -01/10: Hemoglobin tightly controlled, insulin glargine decreased especially given intermittent n.p.o. status #Reported history of dementia and history of depression -Patient on galantamine and memantine on home med list however per patient she had formal cognitive testing by neurology and dementia was ruled out -May be pseudodementia -Continue home fluoxetine and home Remeron #DVT ppx: Heparin subcu Rebecca Pool MD Time spent in the patient's overall evaluation,decision-making process, review of diagnostic data, adjustment of management, discussion with other providers, nursing nursing and ancillary staff involved in patient's care documentation, 51 minutes Charges/Coding Visit Charges Inpatient E&M: [id number] [facility] Hosp L3
[2023-01-10 08:15] LABS: Vitamin B12 208 pg/mL (211-911)
--- NOTE | 2023-01-10 08:18 | PN.RENAL_ITS ---
Subjective Subjective Sitting up in bed. Denies any complaints. N.p.o. for procedure. No overnight events. Objective Data Objective Data Vital Signs: Vital Signs Temp Pulse Resp BP Pulse Ox O2 Del Method 97.8 F 64 18 139/95 H 98 Room Air 01/10/23 06:15 01/10/23 06:15 01/10/23 06:15 01/10/23 06:15 01/10/23 06:15 01/10/23 06:15 Oxygen Delivery Method Room Air Weight: 67.2 kg Body Mass Index (BMI) 24.6 Intake & Output: Intake and Output for Last 24 Hours 01/08/23 01/09/23 01/10/23 23:59 23:59 23:59 Intake Total 3015.42 / 3015.42 3242 / 3242 945 / 945 Output Total 200 / 200 300 / 300 Balance 2815.42 / 2815.42 2942 / 2942 945 / 945 Lab / Micro Data 01/10/23 05:05 01/10/23 05:05 Labs: Laboratory Results - last 24 hr 01/09/23 10:58: POC Glucose 103 01/09/23 16:51: POC Glucose 104 01/09/23 20:41: POC Glucose 113 H 01/10/23 05:05: WBC 6.0, RBC 2.66 L, Hgb 7.9 L, Hct 24.7 L, MCV 92.9, MCH 29.7, MCHC 32.0, RDW Std Deviation 49.5 H, RDW Coeff of [place] 14.6, Plt Count 247, MPV 10.9, Immature Gran % (Auto) 0.300, Neut % (Auto) 58.4, Lymph % (Auto) 26.1, [place] % (Auto) 10.6 H, Eos % (Auto) 3.9, Baso % (Auto) 0.7, Absolute Neuts (auto) 3.5, Absolute Lymphs (auto) 1.56, Nucleated RBC % 0, PT 14.0, INR 1.1, APTT 31.3, Sodium 144, Potassium 3.9, Chloride 119 H, Carbon Dioxide 18.0 L, Anion Gap 7, BUN 26 H, Creatinine 1.77 H, Estim Creat Clear Calc 27.37, Est GFR (MDRD) Af Amer 37 L, Est GFR (MDRD) Non-Af 30 L, BUN/Creatinine Ratio 14.7, Glucose 109 H, Calcium 7.5 L, Magnesium 2.0, TIBC 302, Ferritin 36, Vitamin B12 208 L, Folate 5.10 01/10/23 06:16: POC Glucose 98 Micro: Microbiology 01/09/23 00:00 Urine, Clean Catch Urine Culture - Preliminary Culture exhibits no growth. Radiography Diagnostic Testing: Radiology Impression Gastric Emptying Nuclear Medicine 01/09/23 09:00 IMPRESSION: 1. NORMAL 99m Tc sulfur colloid semi-solid phase (oatmeal) gastric emptying imaging examination. A. There is normal and preserved semi-solid phase gastric emptying compared to normal controls with maintained first order kinetics throughout all components of the examination. (Jose J et al, J Nucl Med Tech 38: 186, 2010). Electronically Signed: Skinny Ignacio, at 20:49 EDT , Physical Exam Narrative Alert and oriented x3, no apparent distress S1, S2, RRR Lung sounds clear anteriorly posteriorly no wheezes rhonchi rales noted Abdomen soft, nontender, ostomy intact No edema Assessment & Plan Assessment/Plan (1) Acute kidney injury: (2) Hypomagnesemia: (3) Hypokalemia: (4) Decreased appetite: PLAN: Plan This is a pleasant 67-year-old female with past medical history significant for diabetes mellitus type 2, hypertension, A-fib, anemia of chronic disease, RLS, history of colectomy due to perforated diverticulitis status post colostomy placed 2019 who presented to the emergency room under the direction of her PCP for abnormal labs, elevated creatinine. Nephrology consulted for acute kidney injury. - Nonoliguric, hypovolemic acute kidney injury on possible CKD stage 3a. This admission creatinine 3.08 --> today creatinine 1.77mg/dL on IV fluids. CINDY prerenal from significant volume depletion, nausea, vomiting and loose/watery stools along with unintentional weight loss of 30 pounds. Patient also may have a component of ATN as likely blood pressures were low at home, patient had been feeling dizzy especially upon standing with few falls at home. 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 Renal ultrasound no hydronephrosis, no acute process. She does appear to be mildly hypovolemic on exam and recommended continue with gentle IV fluids. Urine sodium 38 after being on IVFs. UA from this admission 30 protein, 25 occult blood, leukocyte Estrace 500; urine cultures so far no growth. Patient had not been taking NSAIDs. No recent GOGO or ARB's. Patient has been off hydrochlorothiazide. Metabolic acidosis, bicarb has improved currently at 18, possibly from GI losses and recom mend to continue holding metformin. Potassium and magnesium normal today. - Patient was admitted to the hospital on December 26, 2022 serum creatinine 5.53 mg/dL and with IV fluids, holding metformin and hydrochlorothiazide serum creatinine improved daily to 1.94mg/dL on December 31 (discharge December 31). Patient underwent heart catheterization December 31. - Patient has not been following with nephrology in past. Past serum creatinine trends: August 02, 2021 serum creatinine 1.28 mg/dL, December 17, 2021 serum creatinine 1.31 mg/dL. No lab work to review from November 2021 to December 2022. - GI has been consulted, work-up for unintentional weight loss, dysphagia, loose watery stools. Patient to have EGD today. - Blood pressures have been relatively controlled on diltiazem. - Patient has history of diabetes mellitus type 2, A1c was 6.3% in August 2020.
[2023-01-10] MEDS: dilTIAZem CD 180 MG Capsule PO (08:41)
[2023-01-10 11:09] LABS: Lyme Scn Total Ab w/Rflx Negative (Negative)
--- NOTE | 2023-01-10 15:30 | EGD_PTH ---
PATIENT: TY HOFF LOC: [facility] U#:[id number] AGE/SX: 67/F ROOM: [facility] RE01/08/[address]: Dr. Rebecca Pool MD : 1955 BED: 1 DIS: 01/11/2023 SPEC #: [id number] RECD: 01/10/23 16:56 STATUS: MARIANA SCOTT #: [id number] JOS: 01/10/23 15:[address]: Pranay Brian DEPT: SURGICAL PATHOLOGY RECD BY: Mark Alan ENTERED: 01/13/23 08:51 SP TYPE: EGD BIOPSY [facility] DR: MD Dr. Magan Mendez MD Dr. Paige Pierce, MD Shannon Trzcinski, NP-C Tissues: A - Duodenum, NOS B - Gastric mucous membrane Procedures: Surgery Specimen Level IV HEADER OPERATION: EGD PRE-OP DIAGNOSIS: Dizziness, nausea and vomiting TISSUE SUBMITTED: A - Duodenum biopsy, B - Gastric antrum for H. pylori and path MICROSCOPIC DIAGNOSIS A. Duodenum, biopsy: Fragments of duodenal mucosa, no pathologic diagnosis. B. Gastric antrum, biopsy: Mild gastritis. See microscopic description and comment. SJ:rg 01/14/2023 COMMENT B. The results of immunohistochemistry for Helicobacter pylori will be reported separately ([id number]). MICROSCOPIC DESCRIPTION Slides are reviewed. B. The specimen shows fragments of gastric mucosa with chronic inflammatory cell infiltrates in the lamina propria consisting of lymphocytes and plasma cells, consistent with mild chronic gastritis. GROSS DESCRIPTION A - Received in fixative is one container labeled with the patient's name and designated duodenum. The specimen consists of multiple irregular fragments of light flores soft tissue that in aggregate measure 1.0 x 0.3 x 0.1 cm. The specimen is totally submitted in one cassette. B - Received in fixative is one container labeled with the patient's name and designated gastric antrum. The specimen consists of two irregular fragments of light flores soft tissue that in aggregate measure 0.6 x 0.4 x 0.1 cm. The specimen is totally submitted in one cassette. / ALENA:jessy 01/13/2023 TC:3 CPT: 34597 x2
--- NOTE | 2023-01-10 15:30 | IMM_PTH ---
PATIENT: TY HOFF LOC: [facility] U#:[id number] AGE/SX: 67/F ROOM: [facility] RE01/08/[address]: Dr. Rebecca Pool MD : 1955 BED: 1 DIS: 01/11/2023 SPEC #: [id number] RECD: 01/13/23 14:07 STATUS: MARIANA REQ #: [id number] JOS: 01/10/23 15:[address]: Pranay Brian DEPT: IMMUNOHISTOCHEMISTRY RECD BY: Liberty Rodriguez ENTERED: 01/13/23 14:08 SP TYPE: IMMUNO OTHR DR: MD Dr. Magan Mendez MD Dr. Paige Pierce, MD Shannon Trzcinski, RETRIEVAL SPECIALIST-C Tissues: B - Stomach, NOS Procedures: H Pylori (initial) PHYSICIAN & INSTITUTION [place] [id number] SPECIMEN INFORMATION: Tissue Source: B - Gastric antrum Clinical Info: Dizziness, nausea, vomiting Specimen Number: [id number] CPT code: 09141 METHODOLOGY: Deparaffinized sections of prefer/formalin-fixed tissue or PAP/DQ stained slides are incubated with monoclonal/polyclonal antibodies/oligonucleotide probes. Localization is made via biotin free immunoperoxidase method. Appropriate controls are performed and reacted as expected. Results on target cell population are indicated in the following table: RESULTS: ANTIBODY / CLONE RESULT Block B H Pylori (polyclonal) negative These tests were developed and their performance characteristics determined by [facility]. They may not have been cleared or approved by the U.S. Food and Drug Administration. The FDA has determined that such clearance or approval is not necessary. The above immunohistochemical/dualISH markers are ordered and reviewed by the Pathologist. INTERPRETATION: B. Gastric antrum, biopsy: Negative for Helicobacter pylori organisms. SJ:jessy 01/14/2023
--- NOTE | 2023-01-10 16:51 | OP.EGD_ITS ---
Patient Name: Kina Yu Procedure Date: 01/10/2023 4:10 PM Date of : 1955 Age: 67 Procedure: Upper GI endoscopy Indications: Epigastric abdominal pain, Functional Dyspepsia Providers: Pranay Brian DO Medicines: Monitored Anesthesia Care Patient Profile: This is a 67 year old female. Refer to note in patient chart for documentation of history and physical. Patient has symptoms of acute abdominal cramping and acute epigastric abdominal pain. Complications: No immediate complications. Procedure: Pre-Anesthesia Assessment: - Prior to the procedure, a History and Physical was performed, and patient medications and allergies were reviewed. The patient is competent. The risks and benefits of the procedure and the sedation options and risks were discussed with the patient. All questions were answered and informed consent was obtained. Patient identification and proposed procedure were verified by the physician in the pre-procedure area. Mental Status Examination: alert and oriented. Airway Examination: normal oropharyngeal airway and neck mobility. Respiratory Examination: clear to auscultation. CV Examination: normal. Prophylactic Antibiotics: The patient does not require prophylactic antibiotics. Prior Anticoagulants: The patient has taken no previous anticoagulant or antiplatelet agents. ASA Grade Assessment: II - A patient with mild systemic disease. After reviewing the risks and benefits, the patient was deemed in satisfactory condition to undergo the procedure. The anesthesia plan was to use monitored anesthesia care (MAC). Immediately prior to administration of medications, the patient was re-assessed for adequacy to receive sedatives. The heart rate, respiratory rate, oxygen saturations, blood pressure, adequacy of pulmonary ventilation, and response to care were monitored throughout the procedure. The physical status of the patient was re-assessed after the procedure. After obtaining informed consent, the endoscope was passed under direct vision. Throughout the procedure, the patient's blood pressure, pulse, and oxygen saturations were monitored continuously. The gastroscope was introduced through the mouth, and advanced to the second part of duodenum. The upper GI endoscopy was accomplished without difficulty. The patient tolerated the procedure well. Scope In: 4:38:28 PM Scope Out: 4:45:20 PM Total Procedure Duration Time 0 hours 6 minutes 52 seconds Findings: A moderate Schatzki ring was found in the lower third of the esophagus. Diffuse prominent gastric folds were found in the cardia, in the gastric fundus and in the gastric body. Biopsies were taken with a cold forceps for histology. Verification of patient identification for the specimen was done by the physician. Estimated blood loss was minimal. Localized atrophic mucosa was found in the duodenal bulb. Biopsies were taken with a cold forceps for histology. Verification of patient identification for the specimen was done. Estimated blood loss was minimal. Impression: - Moderate Schatzki ring. - Enlarged gastric folds. Biopsied. - Duodenal mucosal atrophy. Biopsied. Recommendation: - Return patient to [facility] care. - Resume previous diet. - Continue present medications. - Await pathology results. Procedure Code(s): --- Professional --- 51043, Esophagogastroduodenoscopy, flexible, transoral; with biopsy, single or multiple CPT copyright 2017 [employer]. All rights reserved. The codes documented in this report are preliminary and upon crystal calibrator review may be revised to meet current compliance requirements. Pranay Brian DO 01/10/2023 4:50:49 PM This report has been signed electronically. Number of Addenda: 0 Note Initiated On: 01/10/2023 4:10 PM
--- NOTE | 2023-01-10 16:51 | OP.CCLET_ITS ---
01/10/2023 Magan Garcia MD Re : Upper GI endoscopy procedure for Kina Yu Dear Dr. Garcia This procedure was performed on Tuesday, January 10, 2023. My impressions and recommendations are as follows: Impressions : - Moderate Schatzki ring. - Enlarged gastric folds. Biopsied. - Duodenal mucosal atrophy. Biopsied. Recommendations : - Return patient to [facility] care. - Resume previous diet. - Continue present medications. - Await pathology results. My findings are described in the full procedure note, which is enclosed. If I can be of further assistance, please feel free to contact me at . Sincerely, Pranay Brian, 01/10/2023 4:50:49 PM This report has been signed electronically.
--- NOTE | 2023-01-10 17:16 | EX.PCM.PN.GI ---
Subjective Subjective Patient underwent an upper endoscopy and was discovered to have enlarged gastric folds. Differential diagnosis for that is H. pylori associated gastritis. Biopsies were taken. Medication side effect, hypergastrinemia, proton pump inhibitor effect, chronic renal failure. I explained to her son that that could cause her to be nauseous and have subsequent abdominal pain due to under distention of the stomach during digestion. It also would make sense why her gastric emptying study was normal in the setting of a patient with diabetes mellitus in which she would expect her to have some mild delayed gastric emptying. Objective Data Objective Data Vital Signs: Vital Signs Temp Pulse Resp BP Pulse Ox O2 Del Method 98.0 F 66 18 127/77 H 99 Room Air 01/10/23 17:10 01/10/23 17:10 01/10/23 17:10 01/10/23 17:10 01/10/23 17:10 01/10/23 17:05 Oxygen Delivery Method Room Air Weight: 148 lb 2.41 oz Body Mass Index (BMI) 24.6 Intake & Output: Intake and Output for Last 24 Hours 01/08/23 01/09/23 01/10/23 23:59 23:59 23:59 Intake Total 3015.42 / 3015.42 3242 / 3242 2221.67 / 2221.67 Output Total 200 / 200 300 / 300 Balance 2815.42 / 2815.42 2942 / 2942 2221.67 / 2221.67 Lab / Micro Data 01/10/23 05:05 01/10/23 05:05 Labs: Laboratory Results - last 24 hr 01/09/23 05:00: [place] Total Antibody Negative 01/09/23 20:41: POC Glucose 113 H 01/10/23 05:05: WBC 6.0, RBC 2.66 L, Hgb 7.9 L, Hct 24.7 L, MCV 92.9, MCH 29.7, MCHC 32.0, RDW Std Deviation 49.5 H, RDW Coeff of [place] 14.6, Plt Count 247, MPV 10.9, Immature Gran % (Auto) 0.300, Neut % (Auto) 58.4, Lymph % (Auto) 26.1, [place] % (Auto) 10.6 H, Eos % (Auto) 3.9, Baso % (Auto) 0.7, Absolute Neuts (auto) 3.5, Absolute Lymphs (auto) 1.56, Nucleated RBC % 0, PT 14.0, INR 1.1, APTT 31.3, Sodium 144, Potassium 3.9, Chloride 119 H, Carbon Dioxide 18.0 L, Anion Gap 7, BUN 26 H, Creatinine 1.77 H, Estim Creat Clear Calc 27.37, Est GFR (MDRD) Af Amer 37 L, Est GFR (MDRD) Non-Af 30 L, BUN/Creatinine Ratio 14.7, Glucose 109 H, Calcium 7.5 L, Magnesium 2.0, TIBC 302, Ferritin 36, Vitamin B12 208 L, Folate 5.10 01/10/23 06:16: POC Glucose 98 Micro: Microbiology 01/09/23 00:00 Urine, Clean Catch Urine Culture - Final Mixed Gram Positive Organisms Radiography Diagnostic Testing: Radiology Impression Gastric Emptying Nuclear Medicine 01/09/23 09:00 IMPRESSION: 1. NORMAL 99m Tc sulfur colloid semi-solid phase (oatmeal) gastric emptying imaging examination. A. There is normal and preserved semi-solid phase gastric emptying compared to normal controls with maintained first order kinetics throughout all components of the examination. (Jose J et al, J Nucl Med Tech 38: 186, 2010). Electronically Signed: Skinny Ignacio, at 20:49 EDT , Physical Exam Narrative Alert and oriented x3, no apparent distress S1, S2, RRR Lung sounds clear anteriorly posteriorly no wheezes rhonchi rales noted Abdomen soft, nontender, ostomy intact No edema Assessment & Plan Assessment/Plan (1) Abdominal pain: QUALIFIERS: Abdominal location: generalized Qualified Code(s): R10.84 - Generalized abdominal pain (2) Hypertrophic gastropathy: (3) Nausea: PLAN: Plan 67-year-old with history of CAD, diabetes, anxiety, depression, GERD, perforated diverticulum status post colectomy with end colostomy. She had a recent admission for chest pain and underwent cardiac catheterization which was normal. She has been struggling with abdominal pain and nausea and has not found any reason why thus far. Differential diagnosis does include depression, hypertrophic gastropathy, H. pylori infection, PPI usage, chronic renal failure, hypergastrinemia. I will draw gastrin level and start her on a scopolamine patch along with low-dose Ativan 0.5 mg every 12 hours. If that does not help I would suggest gabapentin low-dose 100 mg p.o. 3 times daily. I talk with her son and let him know the plan. Charges/Coding Visit Charges Inpatient E&M: 75406 Subs Hosp L3
[2023-01-10 18:08] LABS: Bedside Glucose 78 mg/dL (74-106)
[2023-01-10] MEDS: Acetaminophen 325 MG Tablet 650 MG PO (18:17)
[2023-01-10] MEDS: Scopolamine 1mg/72hr Patch 1 PATCH TD (18:18)
[2023-01-10] MEDS: Heparin Injection (Vial) 5,000 UNIT/ML VIAL 5000 UNIT SC (20:22)
[2023-01-10] MEDS: Atorvastatin Calcium 80 MG Tablet PO (20:22)
[2023-01-10] MEDS: Mirtazapine 30 MG Tablet PO (20:22)
[2023-01-10] MEDS: Temazepam 15 MG Capsule PO (20:22)
[2023-01-10] MEDS: Latanoprost 0.005% 1 Bottle 1 DRP OPHTHALMIC (20:23)
[2023-01-10] MEDS: Pantoprazole Sodium 40 MG Tablet PO (20:23)
[2023-01-10 21:33] LABS: Bedside Glucose 158 mg/dL (74-106)
[2023-01-10] MEDS: LORazepam 0.5 MG Tablet PO (22:18)
[2023-01-11 02:45] VITALS: BP 132/63; PULSE 57; RESP 16; TEMP 36.4; O2SAT 95
[2023-01-11 06:28] LABS: Absolute Lymphocyte Count 1.93 X10^3/uL (0.83-4.51); Absolute Neutrophil Count 3.1 X10^3/uL (2.0-7.7); Basophil# 0.04 X10^3/uL; Basophil% 0.7 % (0-1); Eosinophil# 0.29 X10^3/uL; Eosinophils% 4.8 % (0-5); Hematocrit 25.2 % (37-47); Hemoglobin 7.9 g/dL (12.0-15.0); Lymphocyte # 1.93 X10^3/ul (0.83-4.51); Lymphocyte % 32.2 % (19-41); Mean Corp Hgb Conc 31.3 g/dL (32-36); Mean Corpuscular Hgb 29.7 pg (27.0-32.0); Mean Corpuscular Volume 94.7 fL (81-99); Mean Platelet Vol. 11.1 fl (6.2-12.0); Monocyte# 0.58 X10^3/uL; Monocyte% 9.7 % (0-10); NRBC Flagged by Analyzer 0 % (0-5); Neutrophil # 3.14 X10^3/uL (2.7-7.7); Neutrophil % 52.3 % (47-70); Platelet Count 249 K/mm3 (150-450); RBC Distribution Width CV 14.8 % (11.6-14.6); RBC Distribution Width SD 51.3 fl (35.1-43.9); Red Blood Count 2.66 M/mm3 (4.2-5.4)
[2023-01-11] MEDS: Heparin Injection (Vial) 5,000 UNIT/ML VIAL 5000 UNIT SC (06:47)
[2023-01-11 07:04] LABS: Anion Gap 4 (5-15); BUN 17 mg/dL (7-18); BUN/Creat Ratio 10.8 RATIO (10-20); Calcium,Total 7.9 mg/dL (8.5-10.1); Chloride 121 mmol/L (98-107); Creatinine, Serum 1.58 mg/dL (0.55-1.02); EST Glomerular Filtration Rate 35 mL/min (>60); Est Glom Filt Rate - Afr Amer 42 mL/min (>60); Estimated Creatinine Clearance 30.66 ml/min; Glucose 104 mg/dL (74-106); Potassium 4.4 mmol/L (3.5-5.1); Sodium Level 144 mmol/L (136-145)
[2023-01-11 07:07] LABS: Bedside Glucose 100 mg/dL (74-106)
[2023-01-11 08:45] VITALS: BP 140/55; PULSE 60; RESP 18; TEMP 36.5; O2SAT 100
[2023-01-11] MEDS: 0.9% Saline Lock 10 ML Syringe IV (08:54)
[2023-01-11] MEDS: Gabapentin 100 MG Capsule PO ×2 (08:54→12:55)
[2023-01-11] MEDS: Ezetimibe 10 MG Tablet PO (08:54)
[2023-01-11] MEDS: dilTIAZem CD 180 MG Capsule PO (08:54)
[2023-01-11] MEDS: Pantoprazole Sodium 40 MG Tablet PO (08:54)
[2023-01-11] MEDS: Fluoxetine HCl 40 MG CAPSULE PO (08:54)
[2023-01-11] MEDS: Folic Acid 1 MG Tablet PO (08:54)
[2023-01-11] MEDS: Cyanocobalamin 500 MCG Tablet 1000 MCG PO (08:54)
[2023-01-11 09:02] VITALS: O2SAT 100
--- NOTE | 2023-01-11 10:00 | PN.GI_ITS ---
Subjective Subjective Patient underwent endoscopy yesterday was discovered to have hypertrophic gastropathy. She was started on medical therapy last night with scopolamine and gabapentin. She does not have any abdominal pain and nausea. Objective Data Objective Data Vital Signs: Vital Signs Temp Pulse Resp BP Pulse Ox O2 Del Method 98.2 F 66 16 116/66 98 Room Air 01/11/23 13:42 01/11/23 13:42 01/11/23 13:42 01/11/23 13:42 01/11/23 13:42 01/11/23 13:42 Oxygen Delivery Method Room Air Weight: 148 lb 2.41 oz Body Mass Index (BMI) 24.6 Intake & Output: Intake and Output for Last 24 Hours 01/09/23 01/10/23 01/11/23 23:59 23:59 23:59 Intake Total 3242 / 3242 2421.67 / 2421.67 1959 Output Total 300 / 300 Balance 2942 / 2942 2421.67 / 2421.67 1959 Lab / Micro Data 01/11/23 05:48 01/11/23 05:48 Labs: Laboratory Results - last 24 hr 01/10/23 17:39: POC Glucose 78 01/10/23 20:17: POC Glucose 158 H 01/11/23 05:48: WBC 6.0, RBC 2.66 L, Hgb 7.9 L, Hct 25.2 L, MCV 94.7, MCH 29.7, MCHC 31.3 L, RDW Std Deviation 51.3 H, RDW Coeff of [place] 14.8 H, Plt Count 249, MPV 11.1, Immature Gran % (Auto) 0.300, Neut % (Auto) 52.3, Lymph % (Auto) 32.2, [place] % (Auto) 9.7, Eos % (Auto) 4.8, Baso % (Auto) 0.7, Absolute Neuts (auto) 3.1, Absolute Lymphs (auto) 1.93, Nucleated RBC % 0, Sodium 144, Potassium 4.4, Chloride 121 H, Carbon Dioxide 19.0 L, Anion Gap 4 L, BUN 17, Creatinine 1.58 H, Estim Creat Clear Calc 30.66, Est GFR (MDRD) Af Amer 42 L, Est GFR (MDRD) Non-Af 35 L, BUN/Creatinine Ratio 10.8, Glucose 104, Calcium 7.9 L 01/11/23 06:46: POC Glucose 100 01/11/23 11:10: POC Glucose 84 Micro: Microbiology 01/09/23 00:00 Urine, Clean Catch Urine Culture - Final Mixed Gram Positive Organisms Physical Exam Narrative General: Alert, oriented, no apparent distress HEENT: Atraumatic, normocephalic Eyes: Anicteric, normal conjunctiva, extraocular movements grossly intact Neck: Supple Respiratory: Clear to auscultation bilaterally, normal respiratory effort Cardiovascular: Regular rate and rhythm GI: Soft, slightly tender on deep palpation epigastric region otherwise no tenderness, no rebound, guarding, rigidity, nondistended Extremities: No edema Musculoskeletal: Moving all extremities Neuro: No overt focal neurological deficits Skin: No rashes appreciated Psych: Cooperative Assessment & Plan Assessment/Plan (1) Abdominal pain: QUALIFIERS: Abdominal location: generalized Qualified Code(s): R10.84 - Generalized abdominal pain (2) Hypertrophic gastropathy: (3) Nausea: PLAN: Plan 67-year-old with history of CAD, diabetes, anxiety, depression, GERD, perforated diverticulum status post colectomy with end colostomy. She had a recent admission for chest pain and underwent cardiac catheterization which was normal. She has been struggling with abdominal pain and nausea and has not found any reason why thus far. Differential diagnosis does include depression, hypertrophic gastropathy, H. pylori infection, PPI usage, chronic renal failure, hypergastrinemia. I will draw gastrin level and start her on a scopolamine patch along with low- dose Ativan 0.5 mg every 12 hours. If that does not help I would suggest gabapentin low-dose 100 mg p.o. 3 times daily. I talk with her son and let him know the plan. Charges/Coding Visit Charges Inpatient E&M: 18244 Subs Hosp L3
[2023-01-11 11:39] LABS: Bedside Glucose 84 mg/dL (74-106)
--- NOTE | 2023-01-11 13:02 | DS.PCM_ITS ---
Providers Date of Admission: 01/08/23 Date of Discharge: 01/11/23 Primary Care Physician: Dr. Magan Garcia MD Consultations 01/08/23 16:21 Consult: Gastroenterology Routine Consulting Provider: [facility] Reason for Consult: chronic dyspepsia, possible gastroparesis, esophageal dysphagia EMERGENT Consult: No Notified: Yes Date Notified: 01/08/23 Time Notified: 16:39 Method of Notification: Text Consult: Nephrology Routine Consulting Provider: Rena Encarnacion Reason for Consult: Recurrent CINDY, metabolic acidosis EMERGENT Consult: No Notified: Yes Date Notified: 01/08/23 Time Notified: 16:40 Method of Notification: Answering Service Reason For Visit: RENAL FAILURE, HYPOKALEMIA, HYPOMAGNESEMIA Diagnosis Discharge Diagnosis (1) Abdominal pain: Status: Acute Code(s): R10.9 - Unspecified abdominal pain Qualifiers: Abdominal location: generalized Qualified Code(s): R10.84 - Generalized abdominal pain (2) Hypertrophic gastropathy: Status: Acute Code(s): K31.89 - Other diseases of stomach and duodenum (3) Nausea: Status: Acute Code(s): R11.0 - Nausea (4) Acute kidney injury: Status: Acute Code(s): N17.9 - Acute kidney failure, unspecified (5) History of coronary artery stent placement: Status: Chronic Code(s): Z95.5 - Presence of coronary angioplasty implant and graft (6) HTN (hypertension): Status: Chronic Code(s): I10 - Essential (primary) hypertension (7) Renal failure: Status: Acute Code(s): N19 - Unspecified kidney failure Plan #CINDY on CKD unclear subtype #Chronic nausea/vomiting/dysphagia and history of colostomy #Enlarged gastric folds/moderate Schatzki ring/duodenal mucosal atrophy #Multiple electrolyte derangements- improved #Chronic normocytic anemia #Type 2 diabetes mellitus #Reported history of dementia and history of depression #hx CAD Medications at Discharge Home Medications pantoprazole 40 mg tablet,delayed release 40 mg PO BID REFLUX 03/21/17 ezetimibe 10 mg tablet 10 mg PO DAILY CHOLESTEROL 01/27/19 acetaminophen 500 mg tablet 1,000 mg (2 x 500 mg) PO Q6H PRN PRN Pain Score 1- 309/20/19 atorvastatin 80 mg tablet 80 mg PO QHS CHOLESTEROL #30 tabs 09/20/19 fenofibrate 54 mg tablet 54 mg PO DAILY TRIGYCERIDES 04/18/20 diltiazem HCl 180 mg capsule,extended release 24 hr 180 mg PO DAILY HEART #90 caps 05/08/22 sucralfate 1 gram tablet 1 g PO TID PRN stomachache 05/08/22 nitroglycerin 0.4 mg sublingual tablet 0.4 mg sublingual Q5-15M PRN chest pain #25 tabs 11/11/22 fluoxetine 40 mg capsule 40 mg PO DAILY MENTAL HEALTH #90 caps 11/13/22 aspirin 81 mg tablet,delayed release (Adult Aspirin Regimen) 81 mg PO DAILY HEART HEALTH 12/26/22 latanoprost 0.005 % eye drops 1 drp ophthalmic (eye) QHS EYES 12/26/22 mirtazapine 30 mg tablet 30 mg PO QHS MENTAL HEALTH 12/26/22 mometasone 50 mcg/actuation nasal spray 1 - 2 spray intranasal Q12H ALLERGIES 12/26/22 polyethylene glycol 400 1 % eye drops (Visine Dry Eye Relief) 1 - 2 drp EACH EYE Q4H PRN dry eye(s) 12/26/22 cyanocobalamin (vitamin B-12) 500 mcg tablet 1,000 mcg (2 x 500 mcg) PO BREAKFAST #60 tabs 01/11/23 gabapentin 100 mg capsule 100 mg PO TIDCM #90 caps 01/11/23 scopolamine base 1 mg over 3 days transdermal patch 1 patch transdermal Q3D #10 ea 01/11/23 Hospital Course Procedures EGD Summary of Care Provided Minutes Spent on Discharge: 40 Hospital Course: 59-year-old female history of type 2 diabetes as well as history of colostomy, depression, and coronary artery disease who presented to [facility] 01/08/2023 with generalized weakness, dizziness, fatigue. She was discharged about a week prior for an admission for acute kidney injury and was discharged after improvement in her creatinine with fluids. She presented to her primary care physician's office for follow-up and it was noted that there is a rising creatinine again so she was sent to the ED. Patient with generalized weakness, easy fatigue, poor exercise tolerance, exertional dyspnea in addition to chronic nausea, vomiting, regurgitation and intermittent episodes of dyspha camille with 30 pound weight loss over the past few months. In the emergency department she was noted to have severe hypomagnesemia, mild hypokalemia as well as a creatinine of 3.08 up from 1.94 when she was discharged on 12/31/2022. Renal ultrasound done during that admission was normal. She was admitted and GI consulted for her chronic gastric problems and nephrology consulted for her CINYD. Her CINDY resolved with fluids and supportive care and GI work-up was pursued. She had gastric emptying study which was normal and she subsequently had EGD which showed moderate Schatzki ring, enlarged gastric folds which were biopsied, duodenal mucosal atrophy. She was started on scopolamine patch and initial plan for Ativan every 12 versus gabapentin however she was already receiving temazepam nightly so she was switched to gabapentin. On day of discharge she was doing very well on current regimen and was tolerating diet. Discussed with GI who are agreeable for discharge and outpatient follow-up. Patient reports no nausea and minimal abdominal pain. Discharge instructions as follows: -You will need to follow-up with Dr. Brian with GI in his office upon discharge. Please call his office to schedule your hospital follow-up appointment (ph. [phone]) -If you would like to establish with nephrology, kidney doctor, and [place] please contact the office to schedule an appointment to establish care -It is important to stay hydrated and drink water over things like coffee or soda -Would recommend lab work (BMP) to check your kidney function in 2 to 3 days through your primary care physician's office. Please call their office upon discharge to obtain order for lab work. -You will be discharged on gabapentin 100 mg 3 times daily and given a prescription for scopolamine patches to help with your nausea -You reported having neuropsychiatric evaluation previously that did not show dementia weWe will recommend holding your galantamine and memantin. Would also recommend holding your metformin for the same reason -You are found to be B12 deficient so prescription for supplementation will be sent to your preferred pharmacy on file. If this is not covered or if it is too expensive you can obtain B12 supplementation [id number] -Please call your primary care provider's office upon discharge to schedule a hospital follow up within 1 week. -For any concerning signs or symptoms please call 911 or proceed to the nearest emergency department Physical Exam Narrative General: Alert, oriented, no apparent distress HEENT: Atraumatic, normocephalic Eyes: Anicteric, normal conjunctiva, extraocular movements grossly intact Neck: Supple Respiratory: Clear to auscultation bilaterally, normal respiratory effort Cardiovascular: Regular rate and rhythm GI: Soft, slightly tender on deep palpation epigastric region otherwise no tenderness, no rebound, guarding, rigidity, nondistended Extremities: No edema Musculoskeletal: Moving all extremities Neuro: No overt focal neurological deficits Skin: No rashes appreciated Psych: Cooperative Weight / BMI Weight Weight: 67.2 kg Body Mass Index (BMI) 24.6 ABG / Lab / Microbiology Data 01/11/23 05:48 01/11/23 05:48 Laboratory: Laboratory Results - last 24 hr 01/10/23 17:39: POC Glucose 78 01/10/23 20:17: POC Glucose 158 H 01/11/23 05:48: WBC 6.0, RBC 2.66 L, Hgb 7.9 L, Hct 25.2 L, MCV 94.7, MCH 29.7, MCHC 31.3 L, RDW Std Deviation 51.3 H, RDW Coeff of [place]mar 14.8 H, Plt Count 249, MPV 11.1, Immature Gran % (Auto) 0.300, Neut % (Auto) 52.3, Lymph % (Auto) 32.2, [place] % (Auto) 9.7, Eos % (Auto) 4.8, Baso % (Auto) 0.7, Absolute Neuts (auto) 3.1, Absolute Lymphs (auto) 1.93, Nucleated RBC % 0, Sodium 144, Potassium 4.4, Chloride 121 H, Carbon Dioxide 19.0 L, Anion Gap 4 L, BUN 17, Creatinine 1.58 H, Estim Creat Clear Calc 30.66, Est GFR (MDRD) Af Amer 42 L, Est GFR (MDRD) Non-Af 35 L, BUN/Creatinine Ratio 10.8, Glucose 104, Calcium 7.9 L 01/11/23 06:46: POC Glucose 100 01/11/23 11:10: POC Glucose 84 Microbiology: Microbiology 01/09/23 00:00 Urine, Clean Catch Urine Culture - Final Mixed Gram Positive Organisms D/C Instructions Discharge Diet: Light diet - advance as tolerated Meaningful Use Info Meaningful Use Diagnoses (Choose all that apply): None applicable Discharge Plan Admission Admit Date/Time: 01/08/23 16:24 Primary Reason for Your Visit: Nausea, vomiting, kidney dysfunction Attending Provider: Rebecca Pool Primary Care Provider: Magan Garcia Consulting Providers: Rena Encarnacion; Nayla Quiroz Instructions Patient Instructions: ED Diet Vomiting Diarrhea Additional Instructions / Restrictions: DISCHARGE INSTRUCTIONS PLEASE READ *Please take this with you to your next doctors appointment* -You will need to follow-up with Dr. Brian with GI in his office upon dischar ge. Please call his office to schedule your hospital follow-up appointment (ph. [phone]) -If you would like to establish with nephrology, kidney doctor, and [place] please contact the office to schedule an appointment to establish care -It is important to stay hydrated and drink water over things like coffee or soda -Would recommend lab work (BMP) to check your kidney function in 2 to 3 days through your primary care physician's office. Please call their office upon discharge to obtain order for lab work. -You will be discharged on gabapentin 100 mg 3 times daily and given a prescri ption for scopolamine patches to help with your nausea -You reported having neuropsychiatric evaluation previously that did not show dementia weWe will recommend holding your galantamine and memantin. Would also recommend holding your metformin for the same reason -You are found to be B12 deficient so prescription for supplementation will be sent to your preferred pharmacy on file. If this is not covered or if it is too expensive you can obtain B12 supplementation [id number] -Please call your primary care provider's office upon discharge to schedule a hospital follow up within 1 week. -For any concerning signs or symptoms please call 911 or proceed to the nearest emergency department Discharge Orders/Prescriptions Prescriptions: New cyanocobalamin (vitamin B-12) 500 mcg Tablet 1,000 mcg PO BREAKFAST Qty: 60 0RF gabapentin 100 mg Capsule 100 mg PO TIDCM Qty: 90 0RF scopolamine base 1 mg over 3 days Patch 3 Day 1 patch transdermal Q3D Qty: 10 0RF Continued fluoxetine 40 mg capsule 40 mg PO DAILY Qty: 90 1RF sucralfate 1 gram tablet 1 g PO TID PRN (Reason: stomachache) nitroglycerin 0.4 mg tablet, sublingual 0.4 mg sublingual Q5-15M PRN (Reason: chest pain) Qty: 25 3RF pantoprazole 40 MG tablet 40 mg PO BID ezetimibe 10 MG tablet 10 mg PO DAILY Patient Comments: Take 1 tablet by mouth once daily. fenofibrate 54 mg tablet 54 mg PO DAILY Patient Comments: TAKE 1 TABLET BY MOUTH ONCE DAILY acetaminophen 500 MG tablet 1,000 mg PO Q6H PRN PRN (Reason: Pain Score 1-3/10) 0RF atorvastatin 80 MG tablet 80 mg PO QHS Qty: 30 0RF latanoprost 0.005 % drops 1 drp ophthalmic (eye) QHS mirtazapine 30 mg tablet 30 mg PO QHS mometasone 50 mcg/actuation spray,non-aerosol 1 - 2 spray INTRANASAL Q12H Visine Dry Eye Relief 1 % drops 1 - 2 drp EACH EYE Q4H PRN (Reason: dry eye(s)) aspirin [Adult Aspirin Regimen] 81 mg tablet,delayed release (DR/EC) 81 mg PO DAILY diltiazem HCl 180 mg capsule,extended release 24hr 180 mg PO DAILY Qty: 90 3RF Discontinued memantine 2 mg/mL solution 5 mg PO BID Qty: 450 2RF metformin 500 mg tablet extended release 24 hr 500 mg PO DAILY galantamine 4 mg/mL solution 10 mg PO BID Rx Instructions: TAKE 2.5 ML BY MOUTH TWO TIMES A DAY ADMINISTER WITH MORNING AND EVENING MEALS Referrals / Follow Up: Magan Garcia MD [Primary Care Provider] - Within 1 Week Mariann Mayfield MD [Med Staff - Consulting] - (If you would like to establish with nephrology, kidney doctor, and [place] please contact the office to schedule an appointment to establish care) Pranay Brina DO [Med Staff - Active Staff] - ( -You will need to follow-up with Dr. Brian with GI in his office upon discharge. Please call his office to schedule your hospital follow-up appointment (ph. [phone])) Disposition Disposition (needs filled in before D/C Order can be placed): Home, Self Care Charges/Coding Visit Charges Inpatient E&M: 13338 Disch Hosp >30min
[2023-01-11 13:42] VITALS: BP 116/66; PULSE 66; RESP 16; TEMP 36.8; O2SAT 98
[2023-01-14 16:19] LABS: Gastrin, Serum 199 pg/mL (0-115)
== END 2023-01-11 16:47 | disposition home or self-care (01) | DRG 641 ==
LOC: ED 15:10 → PCU 16:53
PROVIDERS: Anesthesiology; Internal Medicine Gastroenterology; Admitting Provider Internal Medicine; Emergency Provider Emergency Medicine; PCP Family Medicine; Visit Provider Internal Medicine
PROC: 0DJ08ZZ Inspection of Upper Intestinal Tract, Via Natural or Artificial Opening Endoscopic (ICD-10-PCS; CPT 43235; principal; 2023-01-10 15:25)
DX: E87.6 Hypokalemia (principal); E87.29 Other acidosis; E11.22 Type 2 diabetes mellitus with diabetic chronic kidney disease; J42 Unspecified chronic bronchitis; N18.31 Chronic kidney disease, stage 3a; I12.9 Hypertensive chronic kidney disease with stage 1 through stage 4 chronic kidney disease, or unspecified chronic kidney disease; Z93.3 Colostomy status; E11.43 Type 2 diabetes mellitus with diabetic autonomic (poly)neuropathy; M54.50 Low back pain, unspecified; K22.4 Dyskinesia of esophagus; F17.210 Nicotine dependence, cigarettes, uncomplicated; E78.00 Pure hypercholesterolemia, unspecified; E83.42 Hypomagnesemia; E86.0 Dehydration; K31.89 Other diseases of stomach and duodenum; I25.10 Atherosclerotic heart disease of native coronary artery without angina pectoris; Z79.899 Other long term (current) drug therapy; Z79.84 Long term (current) use of oral hypoglycemic drugs; R10.13 Epigastric pain; R63.0 Anorexia; G89.29 Other chronic pain; Z79.82 Long term (current) use of aspirin; Z95.5 Presence of coronary angioplasty implant and graft
CPT/HCPCS: 36415; 71045; 78264; 80048; 80053; 80076; 81001; 82607; 82728; 82746; 82941; 82962; 83550; 83605; 83735; 83935; 84100; 84300; 84443; 85025; 85610; 85730; 86618; 87086; 87088; 88305; 88342; 93005; 99284; A9541; J7030; J7120; A4216; J0612

== ENCOUNTER → 2023-09-01 | Outpatient (CLI) | payer MEDICARE, SELFPAY ==
--- NOTE | 2023-09-01 12:45 | RAD_ITS ---
STUDY: X-RAY - LUMBAR SPINE REASON FOR EXAM: Female, 68 years old. Back pain TECHNIQUE: 2 view(s) of the lumbar spine were obtained. COMPARISON: None FINDINGS: Normal lumbar lordosis. There is a mild dextroscoliosis of the lumbar spine. There is a normal alignment of the vertebrae in the lateral view. There is multilevel endplate spondylosis of the lumbar vertebrae. There is multi-level degenerative disc disease with multi-level disc space narrowing. There is no demonstrated fracture. There is atherosclerotic calcification of the abdominal aorta without a demonstrated aneurysm. RAD/Lumbar Spine 2 or 3 Views IMPRESSION: Degenerative changes of the spine, as detailed above. Electronically Signed: Maurice Lin MD at 8:57 EDT ,
[2023-09-01 15:25] LABS: Hematocrit 32.9 % (37-47); Hemoglobin 10.6 g/dL (12.0-15.0); Mean Corp Hgb Conc 32.2 g/dL (32-36); Mean Corpuscular Hgb 30.1 pg (27.0-32.0); Mean Corpuscular Volume 93.5 fL (81-99); Mean Platelet Vol. 11.1 fl (6.2-12.0); Platelet Count 315 K/mm3 (150-450); RBC Distribution Width CV 13.6 % (11.6-14.6); RBC Distribution Width SD 46.2 fl (35.1-43.9); Red Blood Count 3.52 M/mm3 (4.2-5.4); White Blood Count 8.2 K/mm3 (4.4-11.0)
[2023-09-01 15:50] LABS: Vitamin B12 1028 pg/mL (211-911)
[2023-09-01 15:56] LABS: AST(SGOT) 21 U/L (15-37); Alanine Aminotransfer ALT/SGPT 19 U/L (13-56); Albumin, Serum 3.9 g/dL (3.2-5.0); Alkaline Phosphatase 49 U/L (45-117); Anion Gap 6 (5-15); BUN 34 mg/dL (7-18); BUN/Creat Ratio 20.6 RATIO (10-20); Chloride 109 mmol/L (98-107); Creatinine, Serum 1.65 mg/dL (0.55-1.02); EST Glomerular Filtration Rate 33 mL/min (>60); Est Glom Filt Rate - Afr Amer 40 mL/min (>60); Ferritin 18 ng/mL (8-252); Glucose 101 mg/dL (74-106); Iron 118 ug/dL (50-170); Magnesium 1.4 mg/dL (1.6-2.6); Potassium 3.7 mmol/L (3.5-5.1); Protein, Total 7.9 g/dL (6.4-8.2); Sodium Level 139 mmol/L (136-145); Thyroid Stim Hormone (TSH) 1.11 uIU/mL (0.358-3.74)
== END | disposition home or self-care (01) ==
PROVIDERS: PCP Family Medicine; Referring Provider Psychiatry & Neurology Neurology; Visit Provider Psychiatry & Neurology Neurology
DX: M54.50 Low back pain, unspecified (principal); G89.29 Other chronic pain; D64.9 Anemia, unspecified; R55 Syncope and collapse; R53.81 Other malaise
CPT/HCPCS: 36415; 72100; 80053; 82607; 82728; 82746; 83540; 83735; 84443; 85027

== ENCOUNTER → 2024-12-09 | Outpatient (CLI) | payer MEDICARE, SELFPAY ==
[2024-12-09 12:52] LABS: Absolute Neutrophil Count 8.1 X10^3/uL (2.0-7.7); Basophil# 0.01 X10^3/uL; Basophil% 0.1 % (0-1); Eosinophil# 0.07 X10^3/uL; Eosinophils% 0.7 % (0-5); Hematocrit 31.6 % (37-47); Hemoglobin 10.7 g/dL (12.0-15.0); Lymphocyte % 12.5 % (19-41); Mean Corp Hgb Conc 33.9 g/dL (32-36); Mean Corpuscular Hgb 29.6 pg (27.0-32.0); Mean Corpuscular Volume 87.5 fL (81-99); Mean Platelet Vol. 10.2 fl (6.2-12.0); Monocyte# 0.75 X10^3/uL; Monocyte% 7.2 % (0-10); NRBC Flagged by Analyzer 0 % (0-5); Neutrophil # 8.11 X10^3/uL (2.7-7.7); Neutrophil % 77.6 % (47-70); Platelet Count 417 K/mm3 (150-450); RBC Distribution Width CV 14.3 % (11.6-14.6); RBC Distribution Width SD 45.6 fl (35.1-43.9); Red Blood Count 3.61 M/mm3 (4.2-5.4); White Blood Count 10.4 K/mm3 (4.4-11.0)
[2024-12-09 13:29] LABS: ALB/GLOB Ratio 0.9 RATIO (0.9-2.4); AST(SGOT) 53 U/L (<=31); Alanine Aminotransfer ALT/SGPT 49 U/L (<=34); Albumin, Serum 3.8 g/dL (3.4-4.8); Alkaline Phosphatase 179 U/L (35-104); Anion Gap 19 (5-15); BUN 47 mg/dL (4-19); BUN/Creat Ratio 18.5 RATIO (10-20); Carbon Dioxide 13.8 mmol/L (21.0-32.0); Chloride 108 mmol/L (98-108); Creatinine, Serum 2.52 mg/dL (0.70-1.20); EST Glomerular Filtration Rate 20 (>60); Globulin 4.2 g/dL (2.2-4.2); Glucose 109 mg/dL (70-99); Lipase 36 U/L (13-75); Protein, Total 8.1 g/dL (5.9-8.4); Sodium Level 141 mmol/L (133-145); Total Bilirubin 0.26 mg/dL (0.00-1.30)
[2024-12-10 15:08] LABS: Pancreatic Elastase, Fecal 107 (>200)
== END | disposition home or self-care (01) ==
LOC: LAB 12:08
PROVIDERS: PCP Family Medicine
DX: R06.02 Shortness of breath (principal); Z93.3 Colostomy status; R53.81 Other malaise; K21.9 Gastro-esophageal reflux disease without esophagitis
CPT/HCPCS: 36415; 80053; 82653; 83690; 85025

== ENCOUNTER 2025-01-25 12:20 | Day surgery (SDC) | payer MEDICARE, SELFPAY ==
--- NOTE | 2025-01-20 14:45 | PAT.ANE_ITS ---
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 When Was Last Pacemaker Check QUESTION #4 FULL TEXT: You/Your Family Experience fever (hyperthermia) with Anesthesia Last Oral Intake Last Oral intake: Last Oral Intake NPO since Meds taken in AM with sips of water? 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 Female Yes 01/20/25 12:44 HX of Motion Sickness Yes 01/20/25 12:44 HX of N/V After Surgery No 01/20/25 12:44 Non-Smoker No 01/20/25 12:44 Duration of Surgery greater No 01/20/25 12:44 than 60 minutes Number of Risk Factors 2 01/20/25 12:44 PONV Score Moderate Risk 01/20/25 12:44 Height & Weight Height & Weight: Anesthesia: Height & Weight Height 5 ft 12/06/24 08:55 Respiratory Assessment Respiratory Assessment - airline managerial supervisor: Respiratory Tract Infection Hx - airline managerial supervisor Hx Respiratory Tract Infection No 01/20/25 12:44 STOP Sleep Apnea STOP Sleep Apnea - airline managerial supervisor: STOP Sleep Apnea - airline managerial supervisor Hx Hypertension Yes: on meds 01/20/25 12:44 Hx Sleep Apnea No 01/20/25 12:44 CPAP No 12/06/24 08:55 BIPAP Do you snore loudly (louder No 01/20/25 12:44 than talking or can be heard Do you often feel tired/ No 01/20/25 12:44 fatigued/ sleepy during daytime? Has anyone observed you stop No 01/20/25 12:44 breathing during sleep? STOP Results Negative 01/20/25 12:44 QUESTION #5 FULL TEXT : Do you snore loudly (louder than talking or can be heard through closed doors)? 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 Specify any problems Hx of Preganancy in last 3 No 01/20/25 12:44 Months Nurse Filling Out Transfusion JZOLLINGE 01/20/25 12:44 & Questions: Date: 01/20/25 01/20/25 12:44 Time: 12:46 01/20/25 12:44 Patient unable to answer at this time (ie. 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: /Reproductive Hx- airline managerial supervisor Hx Now No 01/20/25 12:44 Gestational Age (in weeks): EDC: Hx Hx Para Hx Section SAB No 01/20/25 12:44 [facility] Medical History (Updated 01/20/25 @ 12:44 by Macie Nelson) Wears glasses Wears dentures Dietary restriction Smoker Hypomagnesemia ST segment changes on electrocardiography Chest pain, unspecified History of left heart catheterization (LHC) (~02/13/16) Chronic low back pain Insomnia Anemia Nausea & vomiting Skin ulcer Rheumatoid arthritis Osteoarthritis High triglycerides High cholesterol HTN (hypertension) Chronic bronchitis Carpal tunnel syndrome Paroxysmal atrial fibrillation Fecal impaction of colon Irritable bowel syndrome with constipation Hyperlipidemia Anxiety Depression Restless legs syndrome GERD (gastroesophageal reflux disease) Diverticulitis Hypokalemia Atrial fibrillation with rapid ventricular response Sepsis Visual hallucinations Encephalopathy Abdominal pain Debility Atrial fibrillation Large bowel obstruction Constipation Colitis Altered mental status Failure of outpatient treatment Sigmoid diverticulitis Tobacco dependence syndrome History of Clostridium difficile infection Home Medications ?Medication ?Instructions ?Recorded ?Last Taken ?Type ezetimibe 10 mg tablet 10 mg PO DAILY CHOLESTEROL 0 01/27/19 01/08/23 History atorvastatin 80 mg tablet 80 mg PO QHS CHOLESTEROL #30 tabs 09/20/19 01/07/23 Rx fenofibrate 54 mg tablet 54 mg PO DAILY TRIGYCERIDES 04/18/20 01/08/23 History fluoxetine 60 mg tablet 60 mg PO QDAY #90 tabs 11/30 Unknown Rx rivastigmine 9.5 mg/24 hour 9.5 mg transdermal QDAY #3 0 ea 11/30/24 Unknown Rx transdermal patch bupropion HCl 150 mg 24 hr tablet, 300 mg PO QAM 12/09 Unknown History extended release (Wellbutrin XL) pioglitazone 30 mg tablet 30 mg PO QDAY 12/09/24 Unkno wn History gabapentin 100 mg capsule 100 mg PO TIDCM #90 caps Unknown Rx omeprazole 20 mg capsule,delayed 20 mg PO BID #60 caps 12/10/24 Unknown Rx release ondansetron 4 mg disintegrating 4 mg PO Q8H PRN nausea and 12/10/24 Unknown Rx tablet vomiting #30 tabs potassium chloride 40 mEq/15 mL 40 meq (15 mL) PO ONCE #15 mL 12/10/24 Unknown Rx oral liquid [id number] 1 cap PO TID #300 caps 12/13 Unknown Rx 36,000-114,000-180,000 unit capsule,delay rel (Creon) diltiazem HCl 180 mg 180 mg PO DAILY 01/20/25 Unk nown History capsule,extended release 24 hr (Cardizem CD) tizanidine 4 mg tablet 4 mg PO .hs 01/20/25 Unknown History Allergy/AdvReac Type Severity Reaction Status Date / Time bee venom protein (honey bee) Allergy Anaphylaxis Verified 01/20/25 12:30 [id number] Reductase AdvReac Severe Myalgias Verified 01/20/25 12:30 Inhibitor promethazine HCl (From AdvReac Vomiting Verified 01/20/25 12:30 Phenergan) tuberculin, purified protein AdvReac Swelling Verified 01/20/25 12:30 deriva Family History Mother Heart disease Myocardial infarction CVA (cerebral vascular accident) Sister Diabetes Brother Parkinson disease Surgical History (Updated 01/20/25 @ 12:44 by Macie Nelson) Hx of colostomy Cataract extraction status of left eye History of hand surgery History of laparoscopy History of cholecystectomy History of hysterectomy History of colostomy History of creation of ostomy History of partial colectomy History of cardioversion (09/02/19) Social History Smoking Status: Current some day smoker tobacco type: cigarettes Tobacco: How many years used: 40 alcohol intake: never substance use type: does not use caffeine: Yes Type: carbonated beverages and coffee what type of physical activity do you participate in: walking frequency: 1-2 times per week brandon/mandaeism: Gnosticist seatbelt use: always Audit: Pertinent Findings Pertinent Findings EKG Perinent findings: EKG 01/14/2023. Normal sinus rhythm Stress test pertinent findings: 01/10/2022. Pharmacologic evaluation. Peak pharmacologic EKG with no evidence EKG changes. There were no cardiac dysrhythmias pretest, during pharmacological infusion, or recovery. Echo (EF%) pertinent findings: Echo 12/27/2022 EF 65%. Normal diastolic function. Heart catheterization pertinent findings: Heart cath 12/31/2022. Right dominant. EF 55%. Normal LV wall motion. Left main previously placed stent is patent. No significant disease noted. Recommendation Anesthesia Recommendation Anesthesia recommendation: OPTIMIZED for anesthesia
[2025-01-25] VITALS (7 sets, daily range): BP systolic 100–141; BP diastolic 66–93; PULSE 72–81; RESP 16–18; TEMP 36.1–37.2; O2SAT 98–100; BMI 25.7
[2025-01-25] MEDS: Lactated Ringers 1,000 ML 15 ML IV (12:51)
--- NOTE | 2025-01-25 13:00 | PCM.HP.STD ---
HPI - General General Date of Admission: 01/25/25 Date of Service: 02/23/25 Chief Complaint: GERD HPI Narrative TY HOFF, is a 69 F who presentshief Complaint: Of heartburn TY HOFF, is a 69 F who presents to the office today for FU. 01.11.23 Last note charted by [facility] during [facility] hospitalization for acute abdominal pain, chest pain and dehydration; history of CAD, diabetes, anxiety, depression, GERD, perforated diverticulum status post colectomy with end colostomy. She had an admission for chest pain and underwent cardiac catheterization which was normal. She has been struggling with abdominal pain and nausea and has not found any reason why thus far. Differential diagnosis does include depression, hypertrophic gastropathy, H. pylori infection, PPI usage, chronic renal failure, hypergastrinemia. 01.10.23 EGD inpt - Moderate Schatzki ring. - Enlarged gastric folds. Biopsied. PATH: mild chronic gastritis, H.pylori negative - Duodenal mucosal atrophy. Biopsied. PATH: no pathologic diagnosis 12.09.24 OV She presents with her son and reports being sick for the last 1.5wks. She went to the Urgent Care due to a sore throat, reports that her rapid strep test was negative and she was treated for thrush in her mouth with Nystatin swish and spit, and a single dose of Diflucan. She reports a decreased appetite with associated 10 pound weight loss over 4-6wks. She denies being exposed to ill persons and any changes to her water supply. Her PCP increased her pantoprazole to twice daily and she takes Carafate as needed. She notes some increasing shortness of breath on exertion. She states that her colostomy output has slightly increased and is thin yellow green color. She denies fever and chills. She states that her colostomy was placed due to physician negligence of my constipation and I had to have emergent surgery where they took quite a bit of my intestines and told me that they would never be reconnected. [facility] Medical History Wears glasses Wears dentures Dietary restriction Smoker Hypomagnesemia ST segment changes on electrocardiography Chest pain, unspecified History of left heart catheterization (LHC) (~02/13/16) Chronic low back pain Insomnia Anemia Nausea & vomiting Skin ulcer Rheumatoid arthritis Osteoarthritis High triglycerides High cholesterol HTN (hypertension) Chronic bronchitis Carpal tunnel syndrome Paroxysmal atrial fibrillation Fecal impaction of colon Irritable bowel syndrome with constipation Hyperlipidemia Anxiety Depression Restless legs syndrome GERD (gastroesophageal reflux disease) Diverticulitis Hypokalemia Atrial fibrillation with rapid ventricular response Sepsis Visual hallucinations Encephalopathy Abdominal pain Debility Atrial fibrillation Large bowel obstruction Constipation Colitis Altered mental status Failure of outpatient treatment Sigmoid diverticulitis Tobacco dependence syndrome History of Clostridium difficile infection Home Medications ?Medication ?Instructions ?Recorded ?Last Taken ?Type ezetimibe 10 mg tablet 10 mg PO DAILY CHOLESTEROL 01/27/19 01/08/23 History atorvastatin 80 mg tablet 80 mg PO QHS CHOLESTEROL #30 tabs 09/20/19 01/07/23 Rx fenofibrate 54 mg tablet 54 mg PO DAILY TRIGYCERIDES 04/18/20 01/08/23 History fluoxetine 60 mg tablet 60 mg PO QDAY #90 tabs 11/30/24 Unknown Rx rivastigmine 9.5 mg/24 hour 9.5 mg transdermal QDAY #30 ea 11/30/24 Unknown Rx transdermal patch bupropion HCl 150 mg 24 hr tablet, 300 mg PO QAM 12/09/24 Unknown History extended release (Wellbutrin XL) pioglitazone 30 mg tablet 30 mg PO QDAY 12/09/24 01/25/25 History gabapentin 100 mg capsule 100 mg PO TIDCM #90 caps 12/10/24 Unknown Rx omeprazole 20 mg capsule,delayed 20 mg PO BID #60 caps 12/10/24 01/25/25 Rx release ondansetron 4 mg disintegrating 4 mg PO Q8H PRN nausea and 12/10/24 Unknown Rx tablet vomiting #30 tabs potassium chloride 40 mEq/15 mL 40 meq (15 mL) PO ONCE #15 mL 12/10/24 Unknown Rx oral liquid ecvwxx-kqhxpvtb-djhltbk 1 cap PO TID #300 caps 12/13/24 Unknown Rx 36,000-114,000-180,000 unit capsule,delay rel (Creon) diltiazem HCl 180 mg 180 mg PO DAILY 01/20/25 01/24/25 History capsule,extended release 24 hr (Cardizem CD) tizanidine 4 mg tablet 4 mg PO .hs 01/20/25 Unknown History Allergy/AdvReac Type Severity Reaction Status Date / Time bee venom protein (honey bee) Allergy Anaphylaxis Verified 01/25/25 12:38 Nxbpnjg-EDJ-BxP Reductase AdvReac Severe Myalgias Verified 01/25/25 12:38 Inhibitor promethazine HCl (From AdvReac Vomiting Verified 01/25/25 12:38 Phenergan) tuberculin, purified protein AdvReac Swelling Verified 01/25/25 12:38 deriva Family History Mother Heart disease Myocardial infarction CVA (cerebral vascular accident) Sister Diabetes Brother Parkinson disease Surgical History Hx of colostomy Cataract extraction status of left eye History of hand surgery History of laparoscopy History of cholecystectomy History of hysterectomy History of colostomy History of creation of ostomy History of partial colectomy History of cardioversion (09/02/19) Social History Smoking Status: Current some day smoker tobacco type: cigarettes Tobacco: How many years used: 40 alcohol intake: never substance use type: does not use caffeine: Yes Type: carbonated beverages and coffee what type of physical activity do you participate in: walking frequency: 1-2 times per week brandon/nondenominational: Mormonism seatbelt use: always ROS Constitutional Constitutional: Denies fatigue, fever(s), poor appetite, weight gain or weight loss Gastrointestinal Gastrointestinal: Denies belching, bloating, change in bowel habits, change in stool character, chewing difficulty, coffee ground emesis, constipation, cramping, diarrhea, dyspepsia, dysphagia, early satiety, excessive flatus, fecal incontinence, heartburn, hematemesis, hematochezia, hemorrhoids, loose stools, melena, nausea, odynophagia, rectal bleeding, tenesmus, vomiting or weight changes Vital Signs Vital Signs Vital Signs: 01/25/25 12:39 Temperature 97.9 F Temperature Source Temporal Pulse Rate 81 Respiratory Rate 16 Blood Pressure 141/92 H Blood Pressure Mean 108 Blood Pressure Source Monitor Blood Pressure Position Semi-Fowlers Blood Pressure Location Right Arm Pulse Ox 100 Oxygen Delivery Method Room Air Weight Weight: 155 lb Body Mass Index (BMI) 25.7 Physical Exam Narrative General: Alert, oriented, no apparent distress HEENT: Atraumatic, normocephalic Eyes: Anicteric, normal conjunctiva, extraocular movements grossly intact Neck: Supple Respiratory: Clear to auscultation bilaterally, normal respiratory effort Cardiovascular: Regular rate and rhythm GI: Soft, slightly tender on deep palpation epigastric region otherwise no tenderness, no rebound, guarding, rigidity, nondistended Extremities: No edema Musculoskeletal: Moving all extremities Neuro: No overt focal neurological deficits Skin: No rashes appreciated Psych: Cooperative Assessment & Plan Assessment/Plan (1) Low back pain: (2) Myalgia: (3) GERD (gastroesophageal reflux disease): QUALIFIERS: Esophagitis presence: esophagitis presence not specified Qualified Code(s): K21.9 - Gastro-esophageal reflux disease without esophagitis PLAN: Assessment and Plan Assessment and Plan (1) GERD (gastroesophageal reflux disease): Status: Chronic Qualifiers: Esophagitis presence: esophagitis presence not specified Qualified Code(s): K21.9 - Gastro-esophageal reflux disease without esophagitis (2) Shortness of breath: Status: Acute Orders: Orders CBC W/Diff, Automated Today K21.9 - Gastro-esophageal reflux disease without esophagitis, R06.02 - Shortness of breath, R53.81 - Other malaise Comprehensive Metabolic Profil Today K21.9 - Gastro-esophageal reflux disease without esophagitis, R06.02 - Shortness of breath Lipase Today K21.9 - Gastro-esophageal reflux disease without esophagitis, R06.02 - Shortness of breath Pancreatic Elastase, Fecal Today Z93.3 - Colostomy status Calprotectin, Stool Today K21.9 - Gastro-esophageal reflux disease without esophagitis, R06.02 - Shortness of breath Medications: New omeprazole 20 mg PO BID 60 caps 5RF ondansetron 4 mg PO Q8H PRN 30 tabs 0RF nausea and vomiting Refilled gabapentin 100 mg PO TIDCM 90 caps 5RF Discontinued pantoprazole Discontinued Reason: Order Changed 40 mg PO BID REFLUX Plan TY HOFF, is a 69 F who presents to the office today for FU. She presents with her son and reports being sick for the last 1.5wks. She went to the Urgent Care due to a sore throat, reports that her rapid strep test was negative and she was treated for thrush in her mouth with Nystatin swish and spit, and a single dose of Diflucan. She reports a decreased appetite with associated 10 pound weight loss over 4-6wks. She denies being exposed to ill persons and any changes to her water supply. Her PCP increased her pantoprazole to twice daily and she takes Carafate as needed. She notes some increasing shortness of breath on exertion. She states that her colostomy output has slightly increased and is thin yellow green color. She denies fever and chills. blood for CBC, CMP, lipase stool for pancreatic elastase, calprotectin change pantoprazole to omeprazole 20mg PO twice daily ondansetron 4mg SL PRN nausea continue gabapentin 100mg PO TIDCM call with results
--- NOTE | 2025-01-25 13:30 | EGD_PTH ---
PATIENT: TY HOFF LOC: [facility] U#:[id number] AGE/SX: 69/F ROOM: RE01/25/[address]: Dr. Pranay Brian DO : 1955 BED: DIS: 01/25/2025 SPEC #: [id number] RECD: 01/25/25 15:32 STATUS: MARIANA RERamon #: [id number] JOS: 01/25/25 13:[address]: Pranay Brian DEPT: SURGICAL PATHOLOGY RECD BY: Patrice Montemayor ENTERED: 01/25/25 15:53 SP TYPE: EGD BIOPSY SHANEKA DR: Dr. Magan Garcia MD Tissues: A - Duodenum, NOS B - Gastric mucous membrane Procedures: Surgery Specimen Level IV HEADER OPERATION: EGD with biopsy PRE-OP DIAGNOSIS: Low back pain, myalgia, GERD TISSUE SUBMITTED: A- Duodenum biopsy, B- Gastric antrum biopsy MICROSCOPIC DIAGNOSIS A. Duodenum, biopsy: - No specific pathologic change. - Alyssa gland hyperplasia - Negative for increased intraepithelial lymphocytes. B. Gastric antrum, biopsy: - Oxyntic mucosa with dilated fundic glands suggestive of fundic gland polyp. MICROSCOPIC DESCRIPTION Slides are reviewed. GROSS DESCRIPTION A. Received in fixative is one container labeled with the patient's name and designated Duodenum biopsy. The specimen consists of one irregular fragment of light flores soft tissue that measures 0.6 cm. The specimen is totally submitted in one cassette. B. Received in fixative is one container labeled with the patient's name and designated Gastric body biopsy. The specimen consists of one irregular fragment of light flores soft tissue that measures 0.5 cm. The specimen is totally submitted in one cassette. HI 01/25/2025 CPT:80169f9
--- NOTE | 2025-01-25 13:59 | PCM.PRE.AN2 ---
ASA Classification* ASA Classification ASA Classification: 3 Assessment & Plan Anesthesia* Anesthesia Assessment Anesthesia Assessment: Discussed sedation and/or anesthesia options, risks, benefits, and alternatives with patient/parents/legal guardian/POA. Questions invited. The patient/parents/legal guardian/POA seems to understand and agrees to proceed with anesthesia plan. Reviewed the physical assessment, medical history, allergy history and patient home medications list prior to surgery/procedure/anesthetic and documented any changes. Performed airway and anesthesia risk assessments. Anesthesia Type Anesthesia Type: MAC History Source History Obtained from:: Patient and Chart Anesthesia Focused Assessment* Temperature: 97.9 F Pulse Rate: 81 Blood Pressure: 141/92 Respiratory Rate: 16 Pulse Ox: 100 Oxygen Delivery Method: Room Air Airway Assessment Mouth opens: >3 cm Mallampati Score: II Teeth Condition: Dentures and Missing Neck Range of motion (ROM): Limited ROM Labs Anesthesia Preop lab: CBC WBC 10.4 K/mm3 (4.4-11.0) 12/09/24 12:16 12/09/24 RBC 3.61 M/mm3 (4.2-5.4) L 12/09/24 12:16 12/09/24 Hgb 10.7 g/dL (12.0-15.0) L 12/09/24 12:16 12/09/24 Hct 31.6 % (37-47) L 12/09/24 12:16 12/09/24 Plt Count 417 K/mm3 (150-450) 12/09/24 12:16 12/09/24 CHEMISTRY Potassium 3.0 mmol/L (3.3-5.1) L 12/09/24 12:16 12/09/24 Sodium 141 mmol/L (133-145) 12/09/24 12:16 12/09/24 Magnesium 1.4 mg/dL (1.6-2.6) L 09/01/23 12:50 09/01/23 Phosphorus 3.9 mg/dL (2.5-4.9) 01/09/23 05:00 01/09/23 BUN 47 mg/dL (4-19) H 12/09/24 12:16 12/09/24 Creatinine 2.52 mg/dL (0.70-1.20) H 12/09/24 12:16 12/09/24 Glucose 109 mg/dL (70-99) H 12/09/24 12:16 12/09/24 POC Glucose 99 mg/dL (74-106) 01/25/25 12:44 01/25/25 TSH 1.11 uIU/mL (0.358-3.74) 09/01/23 12:50 09/01/23 COAG PT 14.0 SECONDS (11.7-14.9) 01/10/23 05:05 01/10/23 Pre-Assessment Diagnosis/Proposed Procedure Planned Operative Procedure(s): egd Anesthesia History Anesthesia History - photographer's model: Anesthesia History - photographer's model Hx Hospitalization Yes: nausea vomiting 01/20/25 12:44 Any Problems With Anesthesia No 01/20/25 12:44 Cholinesterase deficiency No 01/20/25 12:44 You/Your Family Experience No 01/20/25 12:44 fever (hyperthermia) with Relationship Recent Exposure to Contagious No 01/25/25 12:39 Disease Does patient have nerve No 01/20/25 12:44 stimulator Patient instructed to have device shut off --Does patient have Pacemaker No 01/25/25 12:39 or ICD? When Was Last Pacemaker Check QUESTION #4 FULL TEXT: You/Your Family Experience fever (hyperthermia) with Anesthesia Last Oral Intake Last Oral intake: Last Oral Intake NPO since 08:30 01/25/25 12:39 Meds taken in AM with sips of Yes 01/25/25 12:39 water? Meds patient instructed to see 01/25/25 12:39 take am of surgery PONV PONV - photographer's model: PONV - photographer's model Female Yes 01/20/25 12:44 HX of Motion Sickness Yes 01/20/25 12:44 HX of N/V After Surgery No 01/20/25 12:44 Non-Smoker No 01/20/25 12:44 Duration of Surgery greater No 01/20/25 12:44 than 60 minutes Number of Risk Factors 2 01/20/25 12:44 PONV Score Moderate Risk 01/20/25 12:44 Height & Weight Height & Weight: Anesthesia: Height & Weight Height 5 ft 5 in 01/25/25 12:39 Weight: 70.307 kg 01/25/25 12:39 Body Mass Index (BMI) 25.7 01/25/25 12:39 Respiratory Assessment Respiratory Assessment - photographer's model: Respiratory Tract Infection Hx - photographer's model Hx Respiratory Tract Infection No 01/20/25 12:44 STOP Sleep Apnea STOP Sleep Apnea - photographer's model: STOP Sleep Apnea - photographer's model Hx Hypertension Yes: on meds 01/20/25 12:44 Hx Sleep Apnea No 01/20/25 12:44 CPAP No 12/06/24 08:55 BIPAP Do you snore loudly (louder No 01/20/25 12:44 than talking or can be heard Do you often feel tired/ No 01/20/25 12:44 fatigued/ sleepy during daytime? Has anyone observed you stop No 01/20/25 12:44 breathing during sleep? STOP Results Negative 01/20/25 12:44 QUESTION #5 FULL TEXT : Do you snore loudly (louder than talking or can be heard through closed doors)? Tobacco Use History Tobacco Use History - photographer's model: Tobacco Use History - photographer's model Tobacco Use Cigarettes 12/06/24 08:55 Smoking Status Current some day smoker 01/20/25 12:44 Hx Tobacco Use Yes 01/20/25 12:44 Years Smoking 50 01/20/25 12:44 Packs Smoked per Day 0.5 01/20/25 12:44 Smoking Cessation Date was within the last 15 years Hx Smoking Cessation Date Hx Smoking Cessation No 01/20/25 12:44 Counseling Hematologic Medial History Hematologic Hx - photographer's model: Hematologic Medical Hx - physician non invasive cardiologist Hx of Blood Transfusion No 01/20/25 12:44 Hx of Transfusion in last 3 No 01/20/25 12:44 Months Date of Last Transfusion (if within last 3 months) Ever experience any problems No 01/20/25 12:44 with transfusion(s)? Specify any problems Hx of Preganancy in last 3 No 01/20/25 12:44 Months Nurse Filling Out Transfusion MARIE 01/20/25 12:44 & Questions: Date: 01/20/25 01/20/25 12:44 Time: 12:46 01/20/25 12:44 Patient unable to answer at this time (ie. confused, unrespo /Reproduction History /Reproductive History - photographer's model: /Reproductive Hx- photographer's model Hx Now No 01/20/25 12:44 Gestational Age (in weeks): EDC: Hx Hx Para Hx Section SAB No 01/20/25 12:44 Active Medications Active Medications: Current Medications Generic Name Dose Route Start Last Admin Trade Name Jesus PRN Reason Stop Dose Admin Lactated Ringer's 1,000 mls @ 15 mls/hr 01/25/25 12:30 01/25/25 12:51 IV 15 mls/hr .Q48H AARON Administration PFSH Medical History Wears glasses Wears dentures Dietary restriction Smoker Hypomagnesemia ST segment changes on electrocardiography Chest pain, unspecified History of left heart catheterization (LHC) (~02/13/16) Chronic low back pain Insomnia Anemia Nausea & vomiting Skin ulcer Rheumatoid arthritis Osteoarthritis High triglycerides High cholesterol HTN (hypertension) Chronic bronchitis Carpal tunnel syndrome Paroxysmal atrial fibrillation Fecal impaction of colon Irritable bowel syndrome with constipation Hyperlipidemia Anxiety Depression Restless legs syndrome GERD (gastroesophageal reflux disease) Diverticulitis Hypokalemia Atrial fibrillation with rapid ventricular response Sepsis Visual hallucinations Encephalopathy Abdominal pain Debility Atrial fibrillation Large bowel obstruction Constipation Colitis Altered mental status Failure of outpatient treatment Sigmoid diverticulitis Tobacco dependence syndrome History of Clostridium difficile infection Home Medications ?Medication ?Instructions ?Recorded ?Last Taken ?Type ezetimibe 10 mg tablet 10 mg PO DAILY CHOLESTEROL 01/27/19 01/08/23 History atorvastatin 80 mg tablet 80 mg PO QHS CHOLESTEROL #30 tabs 09/20/19 01/07/23 Rx fenofibrate 54 mg tablet 54 mg PO DAILY TRIGYCERIDES 04/18/20 01/08/23 History fluoxetine 60 mg tablet 60 mg PO QDAY #90 tabs 11/30/24 Unknown Rx rivastigmine 9.5 mg/24 hour 9.5 mg transdermal QDAY #30 ea 11/30/24 Unknown Rx transdermal patch bupropion HCl 150 mg 24 hr tablet, 300 mg PO QAM 12/09/24 Unknown History extended release (Wellbutrin XL) pioglitazone 30 mg tablet 30 mg PO QDAY 12/09/24 01/25/25 History gabapentin 100 mg capsule 100 mg PO TIDCM #90 caps 12/10/24 Unknown Rx omeprazole 20 mg capsule,delayed 20 mg PO BID #60 caps 12/10/24 01/25/25 Rx release ondansetron 4 mg disintegrating 4 mg PO Q8H PRN nausea and 12/10/24 Unknown Rx tablet vomiting #30 tabs potassium chloride 40 mEq/15 mL 40 meq (15 mL) PO ONCE #15 mL 12/10/24 Unknown Rx oral liquid mkjodh-lwgloyrz-lbrnenx 1 cap PO TID #300 caps 12/13/24 Unknown Rx 36,000-114,000-180,000 unit capsule,delay rel (Creon) diltiazem HCl 180 mg 180 mg PO DAILY 01/20/25 01/24/25 History capsule,extended release 24 hr (Cardizem CD) tizanidine 4 mg tablet 4 mg PO .hs 01/20/25 Unknown History Allergy/AdvReac Type Severity Reaction Status Date / Time bee venom protein (honey bee) Allergy Anaphylaxis Verified 01/25/25 12:38 Sjgyqsv-WJW-AnW Reductase AdvReac Severe Myalgias Verified 01/25/25 12:38 Inhibitor promethazine HCl (From AdvReac Vomiting Verified 01/25/25 12:38 Phenergan) tuberculin, purified protein AdvReac Swelling Verified 01/25/25 12:38 deriva Family History Mother Heart disease Myocardial infarction CVA (cerebral vascular accident) Sister Diabetes Brother Parkinson disease Surgical History Hx of colostomy Cataract extraction status of left eye History of hand surgery History of laparoscopy History of cholecystectomy History of hysterectomy History of colostomy History of creation of ostomy History of partial colectomy History of cardioversion (09/02/19) Social History Smoking Status: Current some day smoker tobacco type: cigarettes Tobacco: How many years used: 40 alcohol intake: never substance use type: does not use caffeine: Yes Type: carbonated beverages and coffee what type of physical activity do you participate in: walking frequency: 1-2 times per week brandon/yazidi: Yazidi seatbelt use: always Review of Systems (Anesthesia) ROS Narrative System reviewed and no additional complaints, except as documented.
[2025-01-25] MEDS: Lactated Ringers 500 ML IV (14:14)
--- NOTE | 2025-01-25 14:32 | PCM.POST.ANE ---
Anesthesia: Postop Eval I Current Vital Signs Temperature: 97 F Pulse Rate: 75 Blood Pressure: 100/66 Respiratory Rate: 16 Pulse Ox: 99 Assessment Airway patent: Yes Spontaneous unlabored respirations: Yes nausea: No Vomiting: No Anesthesia Complication: No Fluid Hydration Crystalloid volume administer (ml): 500 Total IV fluid infused: 500 Progress Note Anesthesia document: Postop Eval 1 completed: Yes
--- NOTE | 2025-01-25 14:36 | OP.EGD_ITS ---
Patient Name: Kina Yu Procedure Date: 01/25/2025 2:07 PM Date of : 1955 Age: 69 Procedure: Upper GI endoscopy Indications: Epigastric abdominal pain, Functional Dyspepsia, Suspected non-erosive esophageal reflux Providers: Pranay Brian DO Referring MD: Magan Garcia MD Medicines: Monitored Anesthesia Care Patient Profile: This is a 69 year old female. Refer to note in patient chart for documentation of history and physical. Patient has symptoms of chronic epigastric abdominal pain, chronic dyspepsia and chronic heartburn. Complications: No immediate complications. Procedure: Pre-Anesthesia Assessment: - Prior to the procedure, a History and Physical was performed, and patient medications and allergies were reviewed. The patient is competent. The risks and benefits of the procedure and the sedation options and risks were discussed with the patient. All questions were answered and informed consent was obtained. Patient identification and proposed procedure were verified by the physician in the pre-procedure area. Mental Status Examination: alert and oriented. Airway Examination: normal oropharyngeal airway and neck mobility. Respiratory Examination: clear to auscultation. CV Examination: normal. Prophylactic Antibiotics: The patient does not require prophylactic antibiotics. Prior Anticoagulants: The patient has taken no anticoagulant or antiplatelet agents except for NSAID medication. ASA Grade Assessment: II - A patient with mild systemic disease. After reviewing the risks and benefits, the patient was deemed in satisfactory condition to undergo the procedure. The anesthesia plan was to use monitored anesthesia care (MAC). Immediately prior to administration of medications, the patient was re-assessed for adequacy to receive sedatives. The heart rate, respiratory rate, oxygen saturations, blood pressure, adequacy of pulmonary ventilation, and response to care were monitored throughout the procedure. The physical status of the patient was re-assessed after the procedure. After obtaining informed consent, the endoscope was passed under direct vision. Throughout the procedure, the patient's blood pressure, pulse, and oxygen saturations were monitored continuously. The Endoscope was introduced through the mouth, and advanced to the second part of duodenum. The upper GI endoscopy was accomplished without difficulty. The patient tolerated the procedure well. Scope In: 2:19:35 PM Scope Out: 2:24:09 PM Total Procedure Duration Time 0 hours 4 minutes 34 seconds Findings: The examined esophagus was normal. Diffuse prominent gastric folds were found in the entire examined stomach. Biopsies were taken with a cold forceps for histology. Verification of patient identification for the specimen was done. Biopsies were taken with a cold forceps for Helicobacter pylori testing. Verification of patient identification for the specimen was done. Estimated blood loss was minimal. Patchy mildly erythematous mucosa without active bleeding and with no stigmata of bleeding was found in the duodenal bulb. Impression: - Normal esophagus. - Enlarged gastric folds. Biopsied. - Erythematous duodenopathy. Recommendation: - Discharge patient to home. - Resume previous diet. - Continue present medications. - Await pathology results. Procedure Code(s): --- Professional --- 87352, Esophagogastroduodenoscopy, flexible, transoral; with biopsy, single or multiple CPT copyright 2021 [employer]. All rights reserved. The codes documented in this report are preliminary and upon section 8 property manager review may be revised to meet current compliance requirements. Pranay Brian DO 01/25/2025 2:36:02 PM This report has been signed electronically. Number of Addenda: 0 Note Initiated On: 01/25/2025 2:07 PM
--- NOTE | 2025-01-25 14:36 | OP.PROVAT_ITS ---
01/25/2025 Magan Garcia MD Re : Upper GI endoscopy procedure for Kina Yu Dear Dr. Garcia This procedure was performed on Saturday, January 25, 2025. My impressions and recommendations are as follows: Impressions : - Normal esophagus. - Enlarged gastric folds. Biopsied. - Erythematous duodenopathy. Recommendations : - Discharge patient to home. - Resume previous diet. - Continue present medications. - Await pathology results. My findings are described in the full procedure note, which is enclosed. If I can be of further assistance, please feel free to contact me at . Sincerely, Pranay Brian, 01/25/2025 2:36:02 PM This report has been signed electronically.
--- NOTE | 2025-01-25 17:02 | POSTOPAN2_ITS ---
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.TNES Spontaneous unlabored Yes 01/25/25 14:32 CONTINUOUS PROCESS MACHINE OPERATOR.TNES respirations Mental status nausea No 01/25/25 14:32 CONTINUOUS PROCESS MACHINE OPERATOR.TNES Vomiting No 01/25/25 14:32 CONTINUOUS PROCESS MACHINE OPERATOR.TNES Anesthesia Postop Eval I: Fluid Summary Crystalloid volume administer 500 01/25/25 14:32 CONTINUOUS PROCESS MACHINE OPERATOR.TNES (ml) Colloids volume administered ( ml) Blood Product volume administered (ml) Total IV fluid infused 500 01/25/25 14:32 CONTINUOUS PROCESS MACHINE OPERATOR.TNES Anesthesia Postop Eval I: Summary Notes Anesthesia Complication No 01/25/25 14:32 CONTINUOUS PROCESS MACHINE OPERATOR.TNES Anesthesia Complication Comment: Post-operative progress note Anesthesia: Postop Eval II Evaluation Mental status: Awake and Calm Pain Level: 1 nausea: No Vomiting: No Complications Anesthesia Complication: No
--- NOTE | 2025-01-25 17:02 | PCM.POSTANE2 ---
Anesthesia Postop Eval I Sum Postop Eval Completion status Anesthesia document: Postop Eval 1 completed: Yes Anesthesia Postop Eval I Summary Anesthesia Postop Eval I Summary: Anesthesia Postop Eval I: Assessment Summary Airway patent Yes 01/25/25 14:32 OFFICE SERVICES REPRESENTATIVE.TNES Spontaneous unlabored Yes 01/25/25 14:32 OFFICE SERVICES REPRESENTATIVE.TNES respirations Mental status nausea No 01/25/25 14:32 OFFICE SERVICES REPRESENTATIVE.TNES Vomiting No 01/25/25 14:32 OFFICE SERVICES REPRESENTATIVE.TNES Anesthesia Postop Eval I: Fluid Summary Crystalloid volume administer 500 01/25/25 14:32 OFFICE SERVICES REPRESENTATIVE.TNES (ml) Colloids volume administered ( ml) Blood Product volume administered (ml) Total IV fluid infused 500 01/25/25 14:32 OFFICE SERVICES REPRESENTATIVE.TNES Anesthesia Postop Eval I: Summary Notes Anesthesia Complication No 01/25/25 14:32 OFFICE SERVICES REPRESENTATIVE.TNES Anesthesia Complication Comment: Post-operative progress note Anesthesia: Postop Eval II Evaluation Mental status: Awake and Calm Pain Level: 1 nausea: No Vomiting: No Complications Anesthesia Complication: No
--- OUTSIDE RECORDS SUMMARY | 2025-01-25 19:07 | XMS RPT_ITS | CCD ---
Author Organization [facility] Care Team Providers Care Metal Bed Assembler Name Role Phone ROSA MARIA, ORLY Unavailable Unavailable ROSA MARIA, ORLY Unavailable Unavailable ROSA MARIA, ORLY Unavailable Unavailable ROSA MARIA, ORLY Unavailable Unavailable ROSA MARIA, ORLY Unavailable Unavailable ROSA MARIA, ORLY Unavailable Unavailable Magan Amador MD Primary Care Provider Aury COE, Jaydon Colon Unavailable Dr. Magan Mercedes Primary Care Provider Dr. Magan Amador Referring Provider Dr. Daniel Quesada Attending Provider Xavier BRAND PROTECTION MANAGER, BRAND PROTECTION MANAGER-C Catherine Attending Provider Dr. Magan Amador Primary Care Provider Dr. Magan Amador Referring Provider Xavier HENSLEY, BRAND PROTECTION MANAGER-C Catherine Referring Provider Xavier HENSLEY, BRAND PROTECTION MANAGER-C Catherine Other Provider Dr. Daniel Quesada Attending Provider Magan Amador MD Primary Care Provider Jaydon Jeffers RN Unavailable UnavailDr. Quirino Novak Attending Provider Magan Amador MD Primary Care Provider Jaydon Jeffers RN Unavailable Unavailgenevieve Donovan RN, Zach Unavailable Dr. Magan Amador Primary Care Provider Dr. Magan Amador Referring Provider Dr. Quirino Sweeney Attending Provider Dr. Quirino Sweeney Other Provider Dr. Surya Munoz Attending Provider Xavier BRAND PROTECTION MANAGER, BRAND PROTECTION MANAGER-C Catherine Attending Provider Magan Amador MD Primary Care Provider Zion RN, Zach Unavailable Zion COE, Zach Unavailable None Primary Care Physician Dr. Magan Boone Primary Care Provider Dr. Magan Amador Referring Provider Xavier BRAND PROTECTION MANAGER, BRAND PROTECTION MANAGER-C Catherine Attending Provider Dr. César Partida Attending Provider Dr. Brain Doherty Emergency Provider Dr. Sarath Ceja Admit Provider Dr. Sarath Ceja Attending Provider Dr. Sarath Ceja Other Provider Dr. Jorge Hills Other Provider Dr. Jorge Hills Attending Provider Dr. Medardo Berrios Attending Provider Dr. Jorge Hills Referring Provider Dr. Medardo Berrios Referring Provider Zion COE, Zach Unavailable Dr. Magan Amador Primary Care Provider Dr. César Partida Attending Provider Dr. César Partida Referring Provider Dr. Magan Amador Referring Provider Magan Amador MD Primary Care Provider Magan Amador Primary Care Physician Magan Boone MD Primary Care Provider Magan Amador Primary Care Physician Magan Boone Primary Care Physician Unavailab shellie Amador, Magan Primary Care Physician Unavailab shellie Amador, Magan Primary Care Physician Unavailab shellie Vergara CLAY STRUCTURE BUILDER AND SERVICER.DANNIMarjan Unavailable Heaven Garg PA-C Unavailable Zach Donovan RN Unavailable Radha CHACKO, Magan A Primary Care Provider Radha CHACKO, Magan A Primary Care Provider Radha CHACKO, Dr. Carrero Primary Care Provider Jaquan CHACKO, Dr. Lindsey Attending Provider Jaquan CHACKO, Dr. Lindsey Referring Provider [phone] Radha CHACKO, Dr. Carrero Referring Provider Ursula CLAY STRUCTURE BUILDER AND SERVICER.COMPLIANCE MONITOR, Marjan Unavailable Forest CATALAN, Heaven Unavailable Magan Amador Primary Care Physician Unavailab shellie Amador, [place] Primary Care Physician Unavailab shellie CULPCKrystal Attending Provider Adán BRAND PROTECTION MANAGER-CKrystal Referring Provider [phone] BRAIN IVY Referring Unavailable RADHA, MAGAN A Primary Care Unavailable HEAVEN GARG Attending Unavailable RADHA, MAGAN A Primary Care Unavailable GARG, HEAVEN Referring Unavailable RADHA, MAGAN A Primary Care Unavailable HEAVEN GARG Attending Unavailable BRAIN IVY Referring Unavailable BRAIN IVY Attending Unavailable RADHA, MAGAN A Primary Care Unavailable BRAIN IVY Referring Unavailable RADHA, MAGAN A Primary Care Unavailable RADHA, MAGAN A Referring Unavailable RADHA, MAGAN A Primary Care Unavailable RADHA, MAGAN A Primary Care Unavailable RADHA, MAGAN A Attending Unavailable RADHA, MAGAN A Primary Care Unavailable GARG, HEAVEN Referring Unavailable RADHA, MAGAN A Primary Care Unavailable HEAVEN GARG Referring Unavailable Rena Encarnacion Attending Unavailable Magan Amador Attending Unavailable Rena Encarnacion Attending Unavailable aMrtha, CLAY STRUCTURE BUILDER AND SERVICER.DANNI Colmenares Attending Unavaila Tiburcio Martins Attending Unavailable César Partida Attending Unavailable Radha, Magan Primary Care Unavailable Radha, Magan Referring Unavailable Baddoemilie, César Attending Unavailable Baddour, César Referring Unavailable Radha, Magan Primary Care Unavailable Baddour, César Attending Unavailable Baddour, César Referring Unavailable Radha, Magan Primary Care Unavailable Radha, Magan Primary Care Unavailable Mccain, Krystal Attending Unavailable Radha, Magan Referring Unavailable Baddour, César Attending Unavailable Baddour, César Referring Unavailable Radha, Magan Primary Care Unavailable Radha, Magan Primary Care Unavailable Mccain, Krystal Attending Unavailable Mccain, Krystal Referring Unavailable Radha, Magan Primary Care Unavailable Pranay Brian Attending Unavailable Radha, Magan Referring Unavailable Radha CHACKO, Dr. Carrero Primary Care Provider [phone] Jaquan CHACKO, Dr. Lindsey Attending Provider Jaquan CHACKO, Dr. Lindsey Referring Provider Rdaha CHACKO, Dr. Carrero Referring Provider Dr. Pranay Brian DO Attending Provider Dr. Pranay Brian DO Other Provider [phone] Allergies Allergy Classification Reported Allergen(s) Allergy Type Date of Onset Reaction(s) Facility (20 sources) atorvastatin; Translations: [ATORVASTATIN CALCIUM] Drug Allergy 01-08-20 16 Myalgia [facility] (20 sources) Bee; Translations: [BEES] Propensity to adverse reactions (disorder) 01-06-20 14 Anaphylaxis [facility] (20 sources) promethazine; Translations: [PROMETHAZINE HCL] Drug Allergy 01-26-20 13 GI Upset [facility] (1 source) rOPINIRole; Translations: [ROPINIROLE] Drug Allergy [facility] (9 sources) HMG-CoA reductase inhibitor; Translations: [UVOBPPH-XLB-WFG REDUCTASE INHIBITORS] Drug Intolerance 12-30-19 18 Myalgia [facility] Work Phone: (20 sources) Pravastatin; Translations: [PRAVASTATIN] Drug Allergy 12-18-19 18 Myalgia [facility] Work Phone: (20 sources) traZODone; Translations: [TRAZODONE] Drug Allergy 07-14-19 19 Other: See Comments [facility] Work Phone: (12 sources) Purified Protein Derivative of Tuberculin Drug Allergy 12-18-19 22 Swelling [facility] (13 sources) Eogguzc-Qlp-Aqy Reductase Inhibitor; Translations: [Ccmwwcq-Xgx-Yna Reductase Inhibitor] Propensity to adverse reactions 12-18-19 22 Myalgias [facility] (2 sources) BEE STING Allergy to substance 12-18-19 22 Anaphylaxis [facility] Work Phone: (20 sources) HMG-CoA reductase inhibitor Drug Intolerance 12-30-19 18 Myalgia [facility] Work Phone: (10 sources) bee venom protein (honey bee) Allergy to substance 02-27-20 Anaphylaxis [facility] (7 sources) bee venom; Translations: [Bee venom] Allergy to substance 11-16-19 24 Anaphylaxis [facility] (7 sources) Promethazine; Translations: [Promethazine] Drug Allergy 11-16-19 24 Vomiting [facility] (8 sources) Memantine; Translations: [MEMANTINE] Drug Allergy 09-15-19 Other: See Comments [facility] (1 source) bee venom Drug allergy (disorder) 01-01-20 24 [facility] (1 source) Promethazine Drug Allergy 01-01-20 24 [facility] (1 source) tuberculin, purified protein deriva Drug allergy (disorder) 01-21-20 25 [facility] (1 source) bee venom protein (honey bee) Drug allergy (disorder) 01-21-20 25 [facility] Medications Current Medications Medication Drug Class(es) Dates Sig (Normalized) Sig (Original) amylase 667235 unt / lipase 66185 unt / protease 615498 unt delayed release oral capsule (2 sources) Start: 12-13-2024 Chsbuj-Perweumu-Lm ylase (Creon) 36,000-114,000- 180,000 unit capsule,delayed release(DR/EC) Active 1 NMA PO THREE TIMES A DAY 300 5 December 13, 2024 12:00am administer 2 capsules with meals and 1 capsule with snacks or sugared drinks. ascorbic acid 500 mg oral tablet (6 sources) Vitamin C Start: 09-26-2024 take 1 tablet by mouth every other day ascorbic acid, vitamin C, (VITAMIN C) 500 mg tablet Take 1 tablet by mouth every other day. 09/26/2024 Active atorvastatin 80 mg oral tablet (20 sources) HMG-CoA Reductase Inhibitor Start: 09-07-2019 End: 09-14-2024 take 1 tablet by mouth at bedtime Atorvastatin 80 MG tablet Active 80 mg PO AT BEDTIME 30 0 September 20, 2019 7:47pm CHOLESTEROL Comment on above: Take 1 tablet by jess th daily at bedtime. For cholesterol. 24 hr buPROPion hydrochloride 150 mg extended release oral tablet (20 sources) Aminoketone Start: 12-09-2024 Bupropion Hcl (Wellbutrin Xl) 150 mg tablet extended release 24 hr Active 300 mg PO EVERY MORNING December 09, 2024 12:00am Start: 10-01-2024 End: 03-30-2025 take 1 tablet by mouth twice daily buPROPion SR (WELLBUTRIN SR) 150 mg 12 hr tablet Take 1 tablet by mouth two times a day. 60 tablet 5 10/01/2024 03/30/2025 Active Start: 06-03-2024 End: 10-01-2024 take 1 tablet by mouth once daily, then take 1 tablet by mouth twice daily buPROPion SR (WELLBUTRIN SR) 150 mg 12 hr tablet Take 1 tablet by mouth once daily for 7 days, THEN 1 tablet two times a day. 60 tablet 3 06/03/2024 10/01/2024 Discontinued Start: 08-02-2021 End: 01-07-2023 take 1 tablet by mouth once daily, then take 1 tablet by mouth twice daily buPROPion SR (WELLBUTRIN SR) 150 mg 12 hr tablet Take 1 tablet by mouth once daily for 7 days, THEN 1 tablet twice daily. 60 tablet 3 11/11/2022 01/07/2023 Discontinued Start: 08-02-2021 End: 08-12-2022 take 1 tablet by mouth twice daily Bupropion Hcl 150 mg tablet sustained-release 12 hr Discontinued 150 mg PO TWICE A DAY August 02, 2021 1:00am August 12, 2022 3:39pm Start: 01-27-2019 End: 07-18-2020 take 1 tablet by mouth twice daily Bupropion Hcl 150 MG tablet sustained-release 12 hr Discontinued 150 mg PO TWICE A DAY January 27, 2019 12:00am July 18, 2020 11:12am Comment on above: Take 1 tablet by jess once daily for 7 days, THEN 1 tablet twice daily. Vtjgndu-Yzpyrlmsk-Kgw c (CALCIUM/MAGNESI1 TA1) 1 TAB TAB (7 sources) take 1 tablet by mouth once daily Ocyscul-Fseifuuab-Zqxa (CALCIUM/MAGNESI1 TA1) 1 TAB TAB Active 1 TAB PO DAILY for SUPPLEMENT cholecalciferol, vitamin D3, (VITAMIN D3 ORAL) (20 sources) cholecalciferol, vitamin D3, (VITAMIN D3 ORAL) Take by mouth once daily. Active cholecalciferol, vitamin D3, (VITAMIN D3 ORAL) Take by mouth once daily. 0 Active Comment on above: Take by mouth once d aily. 24 hr dilTIAZem hydrochloride 180 mg extended release oral capsule (20 sources) Calcium Channel Ingris Start: 01-20-2025 take 1 capsule by mouth once daily, then take 1 capsule by mouth every twenty-four hours Diltiazem Hcl (Cardizem Cd) 180 mg capsule,extended release 24hr Active 180 mg PO DAILY January 20, 2025 12:00am Start: 09-07-2019 End: 12-09-2024 take 1 capsule by mouth once daily Diltiazem Hcl 180 mg capsule,extended release 24hr Discontinued 180 mg PO DAILY 90 3 May 08, 2022 4:30pm December 09, 2024 11:05am HEART take [address] [facility] once daily, then take 1 tablet by mouth every twenty-four hours Diltiazem LA (CARDIZEM LA180 MG) 180 MG Tablet ER 24HR Active 180 MG PO DAILY for HTN Comment on above: Take 1 capsule by mo [facility] once daily. [id number] 0.3 ml EPINEPHrine 1 mg/ml auto-injector (20 sources) alpha-Adrenergic Agonist, beta-Adrenergic Agonist, Catecholamine Start: 08-26-2023 End: 03-09-2024 EPINEPHrine (EPIPEN 2-ESTEFANIA) 0.3 mg/0.3 mL auto-injector Inject 0.3 mL intramuscularly as needed. 2 Each 1 03/09/2024 Active Start: 09-28-2020 End: 10-19-2021 EPINEPHrine (EPIPEN 2-ESTEFANIA) 0 .3 mg/0.3 mL auto-injector Inject 0.3 mL intramuscularly as needed. 2 Each 1 10/19/2021 Active Comment on above: Inject 0.3 mL intram uscularly as needed. ezetimibe 10 mg oral tablet (20 sources) Dietary Cholesterol Absorption Inhibitor Start: 01-28-20 End: 09-15-19 take 1 tablet by mouth once daily Ezetimibe 10 MG tablet Active 10 mg PO DAILY January 27, 2019 12:00am CHOLESTEROL Comment on above: Take 1 tablet by jess th once daily. fenofibrate 54 mg oral tablet (20 sources) Peroxisome Proliferator Receptor alpha Agonist Start: 04-18-20 End: 07-05-19 take 1 tablet by mouth once daily Fenofibrate 54 mg tablet Active 54 mg PO DAILY April 18, 2020 2:07pm TRIGYCERIDES Start: 01-27-2019 End: 04-18-2020 Fenofibrate 54 MG tablet Discontinued 48 mg PO DAILY January 27, 2019 12:00am April 18, 2020 2:09pm Start: 01-27-2019 End: 04-18-2020 take 48 mg by mouth once daily Fenofibrate Discontinue d 48 MG PO DAILY January 27, 2019 12:00am April 18, 2020 2:09pm take 1 tablet by jess once daily Comment on above: Take 1 tablet by jess th once daily. ferrous sulfate (SLOW FE) 137 mg (45 mg iron) TbER (6 sources) Start: 5 take 1 tablet by mouth every other day ferrous sulfate (SLOW FE) 137 mg (45 mg iron) TbER Take 1 tablet by mouth every other day. 09/26/2024 Active fluconazole 150 mg oral tablet (1 source) Azole Antifungal Start: 5 take 1 tablet by mouth once Fluconazole (Ilgooewl492 MG) 150 MG TAB Active 150 MG PO ONE TIME 1 December 01, 2024 5:37pm magnesium oxide 500 mg oral tablet (20 sources) Start: 4 take 1 tablet by mouth twice daily Magnesium Oxide 500 mg magnesium tab Take 1 tablet by mouth two times a day. 03/11/2024 Active Start: 05-29-2023 End: 03-11-2024 take 1 tablet by mouth twice daily magnesium oxide (MAG-OX) 400 mg (241.3 mg magnesium) tablet Take 1 tablet by mouth two times a day. 05/29/2023 03/11/2024 Discontinued Comment on above: Take 1 tablet by jess th two times a day. nystatin [id number] unt/ml oral suspension (13 sources) Polyene Antifungal Start: 12-01-2024 Nystatin Suspension ([id number] UNI) 100,000 UNIT/ML KRYSTAL Active 5 ML MT THREE TIMES DAILY NEEDED as needed for THRUSH 140 December 01, 2024 5:37pm SWISH AND SPIT Start: 08-29-2020 End: 09-05-2021 take 1 mL by mouth four times daily as needed Nystatin 100,000 unit/mL suspension Discontinued 5 mL PO 4 TIMES DAILY as needed for oral irritation 200 2 August 29, 2020 1:00am September 05, 2021 11:29am swish and swallow Start: 08-29-2020 End: 09-05-2021 take 1 mL by mouth four times daily Nystatin Discontinued 5 ML PO 4 TIMES DAILY 200 August 29, 2020 1:00am September 05, 2021 11:29am swish and swallow omeprazole 20 mg delayed release oral capsule (5 sources) Proton Pump Inhibitor Start: 12-09-2024 End: 12-10-2024 take 1 capsule by mouth twice daily Omeprazole 20 mg capsule,delayed release(DR/EC) Active 20 mg PO TWICE A DAY 60 5 December 10, 2024 12:44pm ondansetron 4 mg disintegrating oral tablet (20 sources) Serotonin-3 Receptor Antagonist Start: 12-09-2024 End: 12-10-2024 take 1 tablet by mouth every eight hours as needed for nausea and vomiting Ondansetron 4 mg tablet,disintegratin g Active 4 mg PO Q8H as needed for nausea and vomiting 30 0 December 10, 2024 12:45pm Start: 11-22-2024 take 1 tablet by jess th every eight hours as needed for nausea Ondansetron HCl (ONDANSETRON4 M2) 4 MG TAB Active 4 MG PO EVERY 8 HOURS NEEDED for NAUSEA/VOMITING 8 December 01, 2024 5:37pm Start: 08-21-2019 End: 03-05-2021 take 1 tablet by mouth every eight hours as needed for nausea Ondansetron 4 MG tablet Discontinued 4 mg PO EVERY 8 HOURS NEEDED as needed for Nausea 30 0 September 20, 2019 7:47pm March 05, 2021 9:42am pioglitazone 30 mg oral tablet (20 sources) Peroxisome Proliferator Receptor alpha Agonist, Peroxisome Proliferator Receptor gamma Agonist, Thiazolidinedione Start: 12-09-2024 take 1 tablet by mouth once daily Pioglitazone 30 mg tablet Active 30 mg PO daily December 09, 2024 12:00am Start: 07-23-2023 End: 07-05-2024 take 1 tablet by mouth once daily Pioglitazone 30 mg tablet Active 30 mg PO daily December 09, 2024 12:00am Start: 01-28-2023 End: 06-10-2023 take 1 tablet by mouth once daily pioglitazone (ACTOS) 30 mg tablet Take 1 tablet by mouth once daily. 30 tablet 5 06/10/2023 Active Comment on above: Take 1 tablet by jess th once daily. potassium chloride 2.67 meq/ml oral solution (20 sources) Start: 12-10-2024 take 40 mEq by mouth once Potassium Chloride 40 mEq/15 mL liquid Active 40 meq PO ONCE 15 December 10, 2024 12:45pm Start: 12-09-2024 End: 12-10-2024 take 40 mEq by mouth once Potassium Chloride 40 mEq/15 mL liquid Discontinued 40 meq PO ONCE 15 December 09, 2024 12:00am December 10, 2024 12:45pm Start: 12-09-2024 End: 12-10-2024 take 40 mEq by mouth once Potassium Chloride 40 mEq/15 mL liquid Discontinued 40 meq PO ONCE 15 December 09, 2024 12:00am December 10, 2024 12:45pm Start: 09-07-2019 End: 07-18-2020 take 1 tablet by mouth once daily at mealtime Potassium Chloride 20 MEQ tablet Discontinued 20 meq PO DAILY WITH MEALS 30 0 September 20, 2019 7:47pm July 18, 2020 11:12am 24 hr rivastigmine 0.396 mg/ hr transdermal system (14 sources) Start: 11-30-2024 Rivastigmine 9 .5 mg/24 hour patch 24 hour Active 9.5 mg TD daily 30 6 November 30, 2024 12:00am Start: 08-24-2024 End: 11-30-2024 Rivastigmine 4.6 mg/24 hour patch 24 hour Discontinued 4.6 mg TD daily 30 4 August 24, 2024 1:00am November 30, 2024 4:54pm tiZANidine 4 mg oral tablet (20 sources) Central alpha-2 Adrenergic Agonist Start: 01-20-2025 take 1 tablet by mouth at bedtime Tizanidine 4 mg tablet Active 4 mg PO .hs January 20, 2025 12:00am Start: 09-01-2023 End: 12-09-2024 take 1-2 tablets by mouth once daily in the morning, then take 1-3 tablets by mouth at bedtime Tizanidine 4 mg tablet Discontinued 0 .ROUTE .COMPLEX 450 October 23, 2023 5:35pm March 10, 2024 11:18am Take 1 to 2 tablets orally every morning and 1 to 3 tablets at bedtime. Start: 03-16-2023 End: 04-17-2023 take 1-3 tablets by mouth at bedtime Tizanidine 4 mg tablet Discontinued 0 PO AT BEDTIME 270 0 March 16, 2023 9:57pm April 17, 2023 1:41pm muscle spasticity/muslce pain/insomnia Take one to three tablets orally at bedtime. Start: 08-12-2022 End: 12-26-2022 take 1-3 tablets by mouth at bedtime Tizanidine 4 mg tablet Discontinued 0 PO AT BEDTIME 270 1 August 12, 2022 1:00am December 26, 2022 2:14pm muscle spasticity Take one to three tablets orally at bedtime. Completed/Discontinued Medications Medication Drug Class(es) Dates Sig (Normalized) Sig (Original) (DIABETIC MEDICATION) (7 sources) End: 04-10-2023 (DIABETIC MEDICATION) Discontinued April 10, 2023 2:56pm acetaminophen 500 mg oral tablet (12 sources) Start: 09-20-2019 End: 12-09-2024 take 2 tablets by mouth every six hours as needed for pain Acetaminophen 500 MG tablet Discontinued 1000 mg PO EVERY 6 HOURS NEEDED as needed for Pain Score 1-3/10 0 September 20, 2019 12:00am December 09, 2024 11:05am Start: 09-20-2019 take 1000 mg by mout h every six hours as needed Acetaminophen Active 1000 MG PO EVERY 6 HOURS NEEDED September 20, 2019 12:00am acetaminophen 325 mg / HYDROcodone bitartrate 5 mg oral tablet (20 sources) Opioid Agonist Start: 02-22-2022 End: 05-08-2022 take 1 tablet by mouth every eight hours as needed for pain HYDROcodone-acetaminophen (NORCO) 5-325 mg per tablet Indications: Hip pain Take 1 tablet by mouth every 8 hours as needed for pain. 12 tablet 0 02/22/2022 05/08/2022 Discontinued Start: 08-21-2019 End: 08-24-2019 Hydrocodone-Acetaminophen 1 TABLET tablet Discontinued 1 {tbl} PO EVERY 6 HOURS NEEDED as needed for Pain 10 3 0 August 21, 2019 August 23, 2019 1:00am August 24, 2019 1:09am Diverticulitis of sigmoid colon Start: 08-21-2019 End: 08-24-2019 take 1 tablet by mouth every six hours as needed Hydrocodone-Acetaminophen Discontinued 1 TABLET PO EVERY 6 HOURS NEEDED 10 3 August 21, 2019 August 24, 2019 1:09am Start: 01-25-2019 End: 01-31-2019 Hydrocodone-Acetaminophen 1 EACH tablet Discontinued 1 NMA PO EVERY 4 HOURS NEEDED as needed for Pain 20 7 0 January 25, 2019 January 31, 2019 12:00am January 31, 2019 11:07am Diverticulitis of large intestine Start: 01-25-2019 End: 01-31-2019 Hydrocodone-Acetaminophen Di scontinued 1 EACH PO EVERY 4 HOURS NEEDED 20 7 January 25, 2019 January 31, 2019 11:07am Comment on above: Take 1 tablet by jess th every 8 hours as needed for pain. acetaminophen 325 mg / oxyCODONE hydrochloride 5 mg oral tablet (7 sources) Opioid Agonist Start: 023 End: 023 Oxycodone W/ Acetaminophen (PERCOCET1 TA1) 1 TAB TAB Discontinued 1 TABLET PO EVERY 8 HOURS NEEDED as needed for SEVERE PAIN 12 February 21, 2023 10:46pm April 10, 2023 2:56pm Take with a large glass of water. [id number] actuat albuterol 0.09 mg/actuat metered dose inhaler (6 sources) beta2-Adrenergic Agonist Start: 024 End: take 1 puff(s) by inhalation four times daily as needed Albuterol Sulfate ([id number] MCG/AC) 108 MCG/ACT Aerosol Soln Discontinued 2 PUFFS INH 4 TIMES A DAY NEEDED as needed for SHORTNESS OF BREATH 07 22December 18, 2023 9:28am December 29, 2023 9:51am amiodarone hydrochloride 200 mg oral tablet (20 sources) Antiarrhythmic Start: End: take 1 tablet by mouth once daily Amiodarone 200 mg tablet Discontinued 200 mg PO DAILY 90 October 07, 2019 12:38pm April 18, 2020 2:41pm Start 09/08 Start: 09-07-2019 End: 10-06-2019 take 1 tablet by mouth twice daily Amiodarone 200 MG tablet Discontinued 200 mg PO TWICE A DAY 0 September 07, 2019 12:00am October 06, 2019 11:13am amitriptyline hydrochloride 25 mg oral tablet (14 sources) Tricyclic Antidepressant Start: 09-01-2023 End: 07-26-2024 take 2 tablets by mouth at bedtime Amitriptyline 25 mg tablet Discontinued 0 PO AT BEDTIME 180 2 March 10, 2024 11:16am July 26, 2024 6:26pm Take 2 tablets orally at bedtime Start: 05-21-2023 End: 09-01-2023 take 1-2 tablets by mouth at bedtime Amitriptyline 25 mg tablet Discontinued 0 PO AT BEDTIME 60 4 May 21, 2023 1:00am September 01, 2023 2:19pm Take 1 to 2 tablets orally at bedtime Start: 05-21-2023 End: 09-01-2023 take 2 tablets by mouth at bedtime Amitriptyline Active 0 PO AT BEDTIME 180 September 01, 2023 2:14pm Take 2 tablets orally at bedtime amoxicillin 875 mg / clavulanate 125 mg oral tablet (19 sources) Penicillin-class Antibacterial Start: 11-16-2023 End: 12-18-2023 take 1 tablet by mouth every twelve hours AMOXICILLIN & POT CLAVULANATE (Augmentin) 875 MG TAB Discontinued 875 MG PO EVERY 12 HOURS November 16, 2023 4:12pm December 18, 2023 8:12am Start: 08-21-2019 End: 09-07-2019 take 1 tablet by mouth every twelve hours Amoxicillin-Pot Clavulanate 875 MG tablet Discontinued 875 mg PO Q12H 20 0 August 21, 2019 1:00am September 07, 2019 8:20am Lqskb-Dnpr-Xxpzg-Collag-Mv-M in (8 sources) Start: 09-07-2019 End: 09-20-2019 Tzwou-Yqaw-Bjfqu-Collag-Mv-M in Discontinued 1 PACKET PO TWICE DAILY WITH MEALS September 06, 2019 11:00pm September 20, 2019 6:48pm Start: 09-07-2019 End: 09-20-2019 Ycufv-Nyzz-Jizmt-Collag-Mv-M in Discontinued 1 PACKET PO TWICE DAILY WITH MEALS September 07, 2019 12:00am September 20, 2019 7:48pm Ngusz-Nfnh-Vfwbx-Collag-Mv-M in 1 PACKET packet (4 sources) Start: 09-07-2019 End: 09-20-2019 take 1 dose by mouth twice daily at mealtime Jzbsr-Qxid-Xkbwg-Xvjmce-Vt-Cst 1 PACKET packet Discontinued 1 NMA PO TWICE DAILY WITH MEALS 0 September 07, 2019 12:00am September 20, 2019 7:48pm Start: 09-07-2019 End: 09-20-2019 take 1 dose by mouth twice daily at mealtime Mnmjr-Sjva-Ixmbf-Yfufja-Hi-Cay 1 PACKET packet Discontinued 1 NMA PO TWICE DAILY WITH MEALS September 07, 2019 12:00am September 20, 2019 7:48pm aspirin 81 mg delayed release oral tablet (20 sources) Platelet Aggregation Inhibitor, Nonsteroidal Anti-inflammatory Drug Start: 06-26-2017 End: 12-09-2024 take 1 tablet by mouth once daily Aspirin (Adult Aspirin Regimen) 81 mg tablet,delayed release (DR/EC) Discontinued 81 mg PO DAILY December 26, 2022 12:00am December 09, 2024 11:05am HEART HEALTH take 81 mg by mouth once daily A SPIRIN (ASPIRIN 81 LOW81 MG) 81 MG CHW Active 81 MG PO DAILY for HEART Comment on above: Take 1 tablet by jess th once daily. azithromycin 250 mg oral tablet (20 sources) Macrolide Antimicrobial Start: 12-22-2023 End: 12-29-2023 Azithromycin (ZITHROMAX Z-PA250 MG) 250 MG TAB Discontinued 250 MG PO DIRECTED December 22, 2023 11:56am December 29, 2023 9:51am Start: 04-27-2023 End: 11-16-2023 take 2-5 tablets by mouth once daily Azithromycin (ZITHROMAX Z-PA250 MG) 250 MG TAB Discontinued 250 MG PO DAILY 6 April 27, 2023 2:08pm November 16, 2023 3:44pm 500 mg day one, 250 mg days 2-5 Start: 05-24-2022 End: 06-18-2022 Azithromycin (ZITHROMAX Z-PA 250 MG) 250 MG TAB Discontinued 250 MG PO DIRECTED May 24, 2022 2:37pm June 18, 2022 11:50am baclofen 10 mg oral tablet (20 sources) gamma-Aminobutyric Acid-ergic Agonist Start: 05-19-2023 End: 05-21-2023 take 1 tablet by mouth at bedtime Baclofen 10 mg tablet Discontinued 10 mg PO AT BEDTIME 30 4 May 19, 2023 1:00am May 21, 2023 5:54pm Start: 08-02-2021 End: 08-08-2021 take 5-10 mg by mouth at bedtime as needed for pain Baclofen 5 mg tablet Discontinued 5 - 10 mg PO AT BEDTIME as needed for back pain/insomnia 60 3 August 02, 2021 1:00am August 08, 2021 9:58am Start: 08-02-2021 End: 08-08-2021 take 5-10 mg by mouth at bedtime Baclofen Discontinued 5 - 10 MG PO AT BEDTIME 60 August 02, 2021 1:00am August 08, 2021 9:58am Start: 11-07-2020 End: 01-15-2021 take 1 tablet by mouth at bedtime Baclofen 10 mg tablet Discontinued 10 mg PO AT BEDTIME 30 2 November 07, 2020 12:00am January 15, 2021 6:15pm benzonatate 200 mg oral capsule (20 sources) Non-narcotic Antitussive Start: 04-27-2023 End: 12-18-2023 take 1 capsule by mouth three times daily as needed for cough Benzonatate ([id number] MG) 200 MG CAP Discontinued 200 MG PO THREE TIMES DAILY NEEDED as needed for COUGH November 16, 2023 4:12pm December 18, 2023 8:12am Start: 01-10-2020 End: 05-24-2022 take 2 capsules by mouth every eight hours as needed for cough Benzonatate (TESSALON [id number] MG) 100 MG CAP Discontinued 2 CAP PO EVERY 8 HOURS NEEDED as needed for COUGH 60 January 10, 2020 11:49am May 24, 2022 1:56pm Start: 01-10-2020 End: 05-24-2022 take 2 capsules by mouth every eight hours as needed for cough Benzonatate (TESSALON [id number] MG) 100 MG CAP Discontinued 2 CAP PO EVERY 8 HOURS NEEDED as needed for COUGH 60 January 10, 2020 11:49am May 24, 2022 1:56pm betamethasone 3 mg/ml / betamethasone acetate 3 mg/ml injectable suspension (3 sources) Corticosteroid Start: 11-11-2022 End: 11-11-2022 betamethasone acetate-betamethasone sodium phosphate 6 mg injection (CELESTONE) Start: 11-11-2022 End: 11-11-2022 betamethasone acetate-betame thasone sodium phosphate 6 mg injection (CELESTONE) Start: 01-24-2022 End: 01-24-2022 betamethasone acetate-betame thasone sodium phosphate 6 mg injection (CELESTONE) bisacodyl 5 mg delayed release oral tablet (7 sources) Stimulant Laxative Start: 02-21-2023 End: 04-10-2023 take 1 tablet by mouth at bedtime Bisacodyl (DULCOLAX5 MG) [address] Discontinued 5 MG PO AT BEDTIME 7 7 February 21, 2023 10:39pm April 10, 2023 2:56pm brompheniramine maleate 0.4 mg/ml / dextromethorphan hydrobromide 2 mg/ml / pseudoephedrine hydrochloride 6 mg/ml oral solution (13 sources) alpha-Adrenergic Agonist, Uncompetitive B-lnhqju-G-aspartat e Receptor Antagonist, Sigma-1 Agonist Start: 12-22-2023 End: 12-29-2023 take 1 mL by mouth four times daily as needed for cough PSEUDOEPHED-BROMP HEN-DM (BROMPHEN/PSEUDO1 SYP) 1 SYP Syrup Discontinued 10 ML PO 4 TIMES A DAY NEEDED as needed for COUGH December 22, 2023 11:56am December 29, 2023 9:52am Start: 05-24-2022 End: 06-18-2022 take 1 mL by mouth four times daily as needed for cough Rioufzvjzmz-Iwwayhws-Hf (BROMPHENIRAMINE 1 LIQ) 1 LIQ Syrup Discontinued 10 ML PO 4 TIMES A DAY NEEDED as needed for COUGH 200 May 24, 2022 2:37pm June 18, 2022 11:50am clopidogrel 75 mg oral tablet (12 sources) P2Y12 Platelet Inhibitor Start: 01-27-2019 End: 11-07-2020 take 1 tablet by mouth once daily Clopidogrel 75 MG tablet Discontinued 75 mg PO DAILY January 27, 2019 12:00am November 07, 2020 1:41pm collagenase 0.25 unt/mg topical ointment (12 sources) Collagen-specific Enzyme Start: 08-21-2020 End: 09-05-2021 Collagenase Clostridium Histo. (Santyl) 250 unit/gram ointment Discontinued 1 NMA TOPICAL DAILY 30 August 21, 2020 1:00am September 05, 2021 11:30am Start: 08-21-2020 End: 09-05-2021 Collagenase Clostridium Hist o. (Santyl) 250 unit/gram ointment Discontinued 1 APPLIC TOPICAL DAILY August 21, 2020 1:00am September 05, 2021 11:30am cyclobenzaprine hydrochloride 10 mg oral tablet (20 sources) Muscle Relaxant Start: 08-08-2021 End: 11-11-2022 Cyclobenzaprine 10 mg tablet Discontinued 0 .ROUTE .COMPLEX 90 4 January 03, 2022 4:33pm August 12, 2022 4:05pm back pain Take 1 tab daily as needed and 1-2 tabs QHS as needed for back pain; do not exceed 2 tabs per dose or 3 tabs per day Comment on above: From neuro docusate sodium 100 mg oral capsule (7 sources) Start: 02-21-2023 End: 04-10-2023 take 1 capsule by mouth once daily Docusate Sodium ([id number] MG) 100 MG CAP Discontinued 100 MG PO DAILY 7 February 21, 2023 10:39pm April 10, 2023 2:56pm donepezil hydrochloride 5 mg oral tablet (16 sources) Start: 08-24-2024 End: 08-24-2024 take 1 tablet by mouth at bedtime Donepezil 5 mg tablet Discontinued 5 mg PO AT BEDTIME 30 5 August 24, 2024 1:00am August 24, 2024 4:39pm Start: 08-29-2020 End: 11-07-2020 take 5 mg by mouth once daily at bedtime Donepezil 10 mg tablet Discontinued 10 mg PO AT BEDTIME 30 1 August 29, 2020 1:00am November 07, 2020 5:49pm start after completing one month of 5mg PO QHS doxepin hydrochloride 100 mg oral capsule (20 sources) Tricyclic Antidepressant Start: 04-09-2022 End: 08-12-2022 take 1 capsule by mouth at bedtime Doxepin 100 mg capsule Discontinued 100 mg PO AT BEDTIME 30 3 June 06, 2022 2:37pm August 12, 2022 4:06pm Start: 03-05-2021 End: 11-11-2022 take 1 capsule by mouth at bedtime Doxepin 75 mg capsule Discontinued 75 mg PO AT BEDTIME 30 3 February 05, 2022 9:20pm April 09, 2022 5:06pm Start: 01-23-2021 End: 03-05-2021 take 2 capsules by mouth at bedtime Doxepin 25 mg capsule Discontinued 50 mg PO AT BEDTIME 60 3 January 23, 2021 4:03pm March 05, 2021 9:41am Start: 01-23-2021 End: 03-05-2021 take 50 mg by mouth at bedtime Doxepin Discontinued 50 MG PO AT BEDTIME 60 January 23, 2021 4:03pm March 05, 2021 9:41am Start: 01-15-2021 End: 01-23-2021 take 1 capsule by mouth at bedtime Doxepin 25 mg capsule Discontinued 25 mg PO AT BEDTIME 30 January 15, 2021 12:00am January 23, 2021 4:04pm Start: 08-24-2019 End: 07-18-2020 take 1 capsule by mouth at bedtime Doxepin 100 MG capsule Discontinued 100 mg PO AT BEDTIME August 24, 2019 1:00am July 18, 2020 11:12am nerves Comment on above: Take 1 capsule by [facility] daily at bedtime. Per Neuro Dr. Partida DULoxetine 60 mg delayed release oral capsule (20 sources) Serotonin and Norepinephrine Reuptake Inhibitor Start: 09-20-19 20 End: 07-18-19 21 take 1 capsule by mouth twice daily Duloxetine 60 MG capsule Discontinued 60 mg PO TWICE A DAY 60 0 September 20, 2019 12:00am July 18, 2020 12:22pm Start: 08-24-2019 End: 09-20-2019 take 1 capsule by mouth once daily Duloxetine 30 MG capsule,delayed release(DR/EC) Discontinued 30 mg PO DAILY August 24, 2019 1:00am September 20, 2019 7:46pm depression Start: 01-25-2019 End: 09-20-2019 take 1 capsule by mouth once daily Duloxetine 60 MG capsule Discontinued 60 mg PO DAILY January 25, 2019 12:00am September 20, 2019 7:46pm 0.4 ml enoxaparin sodium 100 mg/ml prefilled syringe (12 sources) Low Molecular Weight Heparin Start: 09-08-2019 End: 09-20-2019 Enoxaparin 40 MG/0.4 ML syringe Discontinued 40 mg SC DAILY@0600 September 08, 2019 12:00am September 20, 2019 7:46pm escitalopram 20 mg oral tablet (20 sources) Serotonin Reuptake Inhibitor Start: 12-19-2020 End: 11-11-2022 take 1 tablet by mouth once daily Escitalopram Oxalate 20 mg tablet Discontinued 0 .ROUTE .COMPLEX 90 0 July 09, 2022 4:26pm August 12, 2022 3:49pm TAKE ONE TABLET BY MOUTH DAILY Start: 11-13-2020 End: 12-19-2020 take 1 tablet by mouth once daily Escitalopram Oxalate (Lexapro) 10 mg tablet Discontinued 10 mg PO DAILY 30 November 13, 2020 12:00am December 19, 2020 3:44pm Comment on above: Take 20 mg by mouth once daily. ezetimibe 10 mg / simvastatin 10 mg oral tablet (8 sources) HMG-CoA Reductase Inhibitor, Dietary Cholesterol Absorption Inhibitor End: 2 famciclovir 500 mg oral tablet (3 sources) Herpes Simplex Virus Nucleoside Analog DNA Polymerase Inhibitor Start: 4 End: 5 take 1 mg by mouth every eight hours Famciclovir ([id number] MG) 500 MG TAB Discontinued 500 MG PO EVERY 8 HOURS January 01, 2024 3:29pm November 22, 2024 2:16pm 24 hr ferrous sulfate 142 mg extended release oral tablet (20 sources) Start: 0 End: take 1 tablet by mouth once daily Ferrous Sulfate (SLOW FE) 142 mg (45 mg iron) TbER Take 1 tablet by mouth once daily. 06/02/2020 09/26/2024 Discontinued (Changing Therapy/Dosage Form) Comment on above: Take 1 tablet by jess once daily. FLUoxetine 60 mg oral tablet (20 sources) Serotonin Reuptake Inhibitor Start: 4 End: take 1 tablet by mouth once daily Fluoxetine 60 mg tablet Discontinued 60 mg PO daily 90 August 24, 2024 5:30pm November 30, 2024 4:56pm Start: 11-13-2022 End: 2024 take 1 capsule by mouth once daily Fluoxetine 40 mg capsule Discontinued 40 mg PO DAILY 90 March 10, 2024 11:17am 2024 5:45pm Start: 08-12-2022 End: 11-13-2022 take 1 capsule by mouth once daily Fluoxetine 20 mg capsule Discontinued 20 mg PO DAILY 90 August 12, 2022 1:00am November 13, 2022 3:02pm fluticasone propionate 0.05 mg/actuat metered dose nasal spray (20 sources) Corticosteroid Start: 01-15-2021 End: 11-11-2022 take 1 spray(s) by mouth once daily fluticasone (FLONASE) 50 mcg/actuation nasal spray Use 1 [place] in each nostril once daily. Rinse mouth after use. 1 Each 10/19/2021 11/11/2022 Discontinued Comment on above: Use 1 [place] in each nostril once daily. Rinse mouth after use. furosemide 20 mg oral tablet (20 sources) Loop Diuretic Start: 09-07-2019 End: 07-18-2020 take 1 tablet by mouth once daily Furosemide 20 MG tablet Discontinued 20 mg PO DAILY 30 September 20, 2019 7:47pm July 18, 2020 11:13am gabapentin 100 mg oral capsule (20 sources) Anti-epileptic Agent Start: 12-11-2023 End: 09-21-2025 gabapentin (NEURONTIN) 100 mg capsule Taken prn per gastro. Dr. Brian 09/14/2024 09/21/2025 Active Start: 01-11-2023 End: 09-21-2025 take 1 capsule by mouth three times daily at mealtime Gabapentin 100 mg capsule Discontinued 100 mg PO 3 TIMES DAILY WITH MEALS 90 August 23, 2024 8:02am December 09, 2024 11:45am Comment on above: Take 100 mg by mouth once daily. 24 hr galantamine hydrobromide 8 mg extended release oral capsule (20 sources) Start: End: take 1 capsule by mouth once daily at breakfast Galantamine 8 mg capsule,ext rel. pellets 24 hr Discontinued 8 mg PO EVERY MORNING 30 July 26, 2024 1:00am August 17, 2024 5:15pm administer with breakfast Start: 03-16-2023 End: 04-17-2023 take 4 mg by mouth twice daily at dinner Galantamine 4 mg/mL solution Discontinued 8 mg PO TWICE A DAY 120 1 March 16, 2023 9:56pm April 17, 2023 1:41pm administer with AM and PM meals; mix with 100mL of nonalcoholic beverage Start: 03-16-2023 End: 04-17-2023 take 8 mg by mouth twice daily at dinner Galantamine Discontinued 8 MG PO TWICE A DAY 120 March 16, 2023 9:56pm April 17, 2023 1:41pm administer with AM and PM meals; mix with 100mL of nonalcoholic beverage Start: 12-26-2022 End: 01-11-2023 take 2.5 mL by mouth twice daily at dinner Galantamine 4 mg/mL solution Discontinued 10 mg PO TWICE A DAY December 26, 2022 12:00am January 11, 2023 8:30am see PCP TAKE 2.5 ML BY MOUTH TWO TIMES A DAY ADMINISTER WITH MORNING AND EVENING MEALS Start: 07-09-2022 End: 12-26-2022 take 2 mL by mouth twice daily at dinner Galantamine 4 mg/mL solution Discontinued 0 .ROUTE .COMPLEX 360 August 12, 2022 4:04pm December 26, 2022 2:18pm TAKE 2ML BY MOUTH TWO TIMES A DAY ADMINISTER WITH MORNING AND EVENING MEALS Start: 07-09-2022 End: 01-11-2023 take 2.5 mL by mouth twice daily at dinner Galantamine Discontinued 10 MG PO TWICE A DAY December 26, 2022 12:00am January 11, 2023 8:30am TAKE 2.5 ML BY MOUTH TWO TIMES A DAY ADMINISTER WITH MORNING AND EVENING MEALS Start: 09-14-2021 End: 07-09-2022 take 4 mg by mouth twice daily at dinner Galantamine 4 mg/mL solution Discontinued 8 mg PO TWICE A DAY 120 3 March 04, 2022 3:16pm July 09, 2022 4:27pm administer with AM and PM meals; mix with 100mL of nonalcoholic beverage Start: 09-14-2021 End: 08-12-2022 Galantamine Discontinued 0 . ROUTE .COMPLEX 300 July 09, 2022 4:22pm August 12, 2022 8:00pm TAKE 2MLS BY MOUTH TWO TIMES A DAY ADMINISTER WITH MORNING AND EVENING MEALS Start: 08-08-2021 End: 09-07-2021 take 4 mg by mouth twice daily at dinner Galantamine 4 mg/mL solution Discontinued 4 mg PO TWICE A DAY 60 30 0 August 08, 2021 1:00am September 06, 2021 12:00am September 07, 2021 12:03am administer with AM and PM meals Start: 08-08-2021 End: 09-05-2021 take 1 mL by mouth twice daily at dinner Galantamine Discontinued 8 MG PO TWICE A DAY 120 August 08, 2021 1:00am September 05, 2021 11:28am begin after completing 1 month of galantamine 1mL BID; administer with AM and PM meals Start: 08-08-2021 End: 09-07-2021 take 4 mg by mouth twice daily at dinner Galantamine Discontinued 4 MG PO TWICE A DAY 60 30 August 08, 2021 1:00am September 07, 2021 12:03am administer with AM and PM meals Start: 01-15-2021 End: 09-08-2023 take 1 capsule by mouth once daily at breakfast Galantamine 16 mg capsule,ext rel. pellets 24 hr Discontinued 16 mg PO EVERY MORNING 30 4 June 12, 2023 1:00am September 01, 2023 2:14pm administer with breakfast Start: 01-15-2021 End: 03-05-2021 take 1 capsule by mouth once daily at breakfast Galantamine 8 mg capsule,ext rel. pellets 24 hr Discontinued 8 mg PO EVERY MORNING 30 0 January 15, 2021 12:00am March 05, 2021 9:16am administer with breakfast Comment on above: Take 1 capsule by [facility] daily with breakfast. Per Neuro Dr. Partida glycerin 2 mg/ml / hypromellose 2 mg/ml / polyethylene glycol 400 10 mg/ml ophthalmic solution (8 sources) Non-Standardized Chemical Allergen Start: 12-26-2022 End: 12-09-2024 Polyethylene Glycol 400 (Visine Dry Eye Relief) 1 % drops Discontinued 1 - 2 NMA EACH EYE Q4H as needed for dry eye(s) December 26, 2022 12:00am December 09, 2024 11:05am Start: 12-26-2022 take 1 drop(s) into the eye(s) every four hours Polyethylene Glycol 400 (Visine Dry Eye Relief) 1 % drops Active 1 - 2 DRP EACH EYE Q4H December 26, 2022 12:00am hydroCHLOROthiazide 12.5 mg oral capsule (17 sources) Thiazide Diuretic Start: 11-11-2022 End: 01-07-2023 take 1 capsule by mouth once daily Hydrochlorothiazide 12.5 mg capsule Discontinued 12.5 mg PO DAILY December 26, 2022 12:00am December 31, 2022 11:13am Comment on above: Take 1 capsule by [facility] once daily. hydrOXYzine hydrochloride 25 mg oral tablet (4 sources) Antihistamine Start: 12-29-2023 End: 11-22-2024 take 1 tablet by mouth every six hours as needed Hydroxyzine Hcl (Hydroxyz HCl25 MG) 25 MG TAB Discontinued 25 MG PO EVERY 6 HOURS NEEDED as needed for ITCHING 10 3 December 29, 2023 10:07am November 22, 2024 2:16pm L.Acidoph, Paracasei,B. Lactis (8 sources) Start: 12-30-2017 End: 09-20-2019 take 1 capsule by mouth once daily L.Acidoph, Paracasei,B. Lactis Discontinued 1 CAP PO DAILY December 29, 2017 11:00pm September 20, 2019 6:47pm Start: 12-30-2017 End: 09-20-2019 take 1 capsule by mouth once daily L.Acidoph, Paracasei,B. Lactis Discontinued 1 CAP PO DAILY December 30, 2017 12:00am September 20, 2019 7:47pm L.Acidoph,Paracasei,B.Animal is 1 EACH capsule (4 sources) Start: 12-30-2017 End: 09-20-2019 take 1 capsule by mouth once daily L.Acidoph,Paracasei,B.Animalis 1 EACH capsule Discontinued 1 NMA PO DAILY December 30, 2017 12:00am September 20, 2019 7:47pm GUT HEALTH Start: 12-30-2017 End: 09-20-2019 take 1 capsule by mouth once daily L.Acidoph,Paracasei,B.Animalis 1 EACH ca psule Discontinued 1 NMA PO DAILY December 30, 2017 12:00am September 20, 2019 7:47pm Lactobacillus acidophilus (20 sources) End: 11-11-2022 take 1 tablet by mouth twice daily LACTOBACILLUS ACIDOPHILUS (PROBIOTIC ORAL) Take 1 tablet by mouth twice daily. 0 11/11/2022 Discontinued (Other) take 1 tablet by mouth twice dee ly LACTOBACILLUS ACIDOPHILUS (PROBIOTIC ORAL) Take 1 tablet by mouth twice daily. 0 Active Comment on above: Take 1 tablet by jess twice daily. latanoprost 0.05 mg/ml ophthalmic solution (8 sources) Prostaglandin Analog Start: 12-26-2022 End: 12-09-2024 Latanoprost 0.005 % drops Discontinued 1 NMA OPHTHALMIC AT BEDTIME December 26, 2022 12:00am December 09, 2024 11:05am EYES Start: 12-26-2022 Latanoprost Ac tive 1 DRP OPHTHALMIC AT BEDTIME December 26, 2022 12:00am 10 ml lidocaine hydrochloride 10 mg/ml injection (3 sources) Antiarrhythmic, Amide Local Anesthetic Start: 11-11-2022 End: 11-11-2022 lidocaine (PF) 10 mg/mL (1 %) 5 mL injection (XYLOCAINE) Start: 11-11-2022 End: 11-11-2022 lidocaine (PF) 10 mg/mL (1 % ) 5 mL injection (XYLOCAINE) Start: 01-24-2022 End: 01-24-2022 lidocaine (PF) 10 mg/mL (1 % ) 4 mL injection (XYLOCAINE) lisinopril 10 mg oral tablet (12 sources) Angiotensin Converting Enzyme Inhibitor Start: 12-30-2017 End: 09-07-2019 take 1 tablet by mouth once daily Lisinopril (Zestril) 10 MG tablet Discontinued 10 mg PO DAILY December 30, 2017 12:00am September 07, 2019 8:21am BP lubiprostone 0.024 mg oral capsule (12 sources) Chloride Channel Activator Start: 08-24-2019 End: 09-07-2019 take 1 capsule by mouth twice daily Lubiprostone 24 mcg capsule Discontinued 24 ug PO TWICE A DAY August 24, 2019 1:00am September 07, 2019 8:20am ibs Magnesium (20 sources) Start: 11-14-2022 take 1 tablet by mouth twice daily Magnesium 250 mg tab Take 1 tablet by mouth twice daily. 0 11/14/2022 Active End: 11-14-2022 MAGNESIUM ORAL Take by mouth . 0 11/14/2022 Discontinued MAGNESIUM ORAL T jose by mouth. 0 Active Comment on above: Take by mouth. Take 1 tablet by jess twice daily. melatonin 5 mg oral capsule (20 sources) Start: 10-04-2019 End: 11-11-2022 take 2 capsules by mouth once daily at bedtime Melatonin 5 mg cap Take 2 capsules by mouth daily at bedtime. 0 10/04/2019 11/11/2022 Discontinued (Other) Start: 09-20-2019 End: 08-02-2021 take 1 tablet by mouth at bedtime Melatonin 10 MG tablet Discontinued 10 mg PO AT BEDTIME 0 0 September 20, 2019 12:00am August 02, 2021 12:18pm Comment on above: Take 2 capsules by m outh daily at bedtime. memantine hydrochloride 2 mg/ml oral solution (20 sources) A-jkvpke-R-aspartat e Receptor Antagonist Start: 4 End: take 5 mg by mouth twice daily Memantine 2 mg/mL solution Discontinued 5 mg PO TWICE A DAY 450 1 September 01, 2023 2:17pm March 10, 2024 11:16am Start: 09-01-2023 take 5 mg by mouth twice daily Memantine Active 5 MG PO TWICE A DAY 450 September 01, 2023 2:17pm Start: 03-16-2023 End: 04-17-2023 take 5 mg by mouth twice daily Memantine 2 mg/mL solut ion Discontinued 5 mg PO TWICE A DAY 240 1 March 16, 2023 9:57pm April 17, 2023 1:41pm Start: 03-16-2023 End: 04-17-2023 take 5 mg by mouth twice daily Memantine Discontinued 5 MG PO TWICE A DAY 240 March 16, 2023 9:57pm April 17, 2023 1:41pm Start: 02-07-2021 End: 01-11-2023 take 5 mg by mouth twice daily Memantine 2 mg/mL solut ion Discontinued 5 mg PO TWICE A DAY 240 0 July 09, 2022 4:27pm August 12, 2022 8:00pm Start: 02-07-2021 End: 01-11-2023 take 5 mg by mouth twice daily Memantine Discontinued 5 MG PO TWICE A DAY 240 July 09, 2022 4:27pm August 12, 2022 8:00pm Start: 01-08-2021 End: 09-14-2024 take 1 tablet by mouth twice daily memantine (NAMENDA) 5 mg tablet Take 5 mg by mouth two times a day. 01/08/2021 09/14/2024 Discontinued (Adverse Reaction) Start: 11-07-2020 End: 02-07-2021 take 1 tablet by mouth once daily, then take 1 tablet by mouth twice daily Memantine 5 mg tablet Discontinued 5 mg PO .COMPLEX 60 2 November 07, 2020 12:00am February 07, 2021 3:59pm 5 mg PO daily for one week then 5 mg BID thereafter Comment on above: Take 5 mg by mouth t wice daily. Take 5 mg by mouth t wo times a day. 24 hr metFORMIN hydrochloride 500 mg extended release oral tablet (20 sources) Biguanide Start: 2022 End: 2023 take 1 tablet by mouth once daily Metformin 500 mg tablet extended release 24 hr Discontinued 500 mg PO DAILY December 26, 2022 12:00am January 11, 2023 8:30am DM Comment on above: Take 1 tablet by jess th daily with breakfast. Take 1 tablet by jess th daily with breakfast. Was stopped in Hospital end of December 2022 due to elevated Cre. Take 1 tablet by jess th daily with breakfast. Was stopped in Hospital end of December due to elevated Cre. methylPREDNISolone 4 mg oral tablet (6 sources) Corticosteroid Start: 2023 End: 2023 METHYLPREDNISOLONE (MEDROL4 M1) 4 MG Tab Ther Pack Discontinued 1 PACK PO DIRECTED 1 6 December 18, 2023 9:28am December 29, 2023 9:52am 24 hr metoprolol succinate 25 mg extended release oral tablet (12 sources) beta-Adrenergic Ingris Start: 2017 End: 2019 take 1 tablet by mouth once daily Metoprolol Succinate 25 MG tablet Discontinued 25 mg PO DAILY December 30, 2017 12:00am September 07, 2019 8:20am HEART mirtazapine 30 mg oral tablet (20 sources) Start: 2021 End: 2024 take 1 tablet by mouth at bedtime Mirtazapine 30 mg tablet Discontinued 30 mg PO AT BEDTIME December 26, 2022 12:00am December 09, 2024 11:05am MENTAL HEALTH Start: 05-31-2021 End: 12-26-2022 take 1 tablet by mouth at bedtime Mirtazapine 15 mg tablet Discontinued 15 mg PO AT BEDTIME September 05, 2021 12:00am December 26, 2022 2:13pm Comment on above: Take 1 tablet by jess th daily at bedtime. mometasone furoate 0.05 mg/actuat metered dose nasal spray (20 sources) Corticosteroid Start: 12-26-2022 End: 12-09-2024 Mometasone 50 mcg/actuation spray,non-aerosol Discontinued 1 - 2 NMA INTRANASAL Q12H December 26, 2022 12:00am December 09, 2024 11:05am ALLERGIES Start: 12-26-2022 Mometasone Act saul 1 - 2 SPRAY INTRANASAL Q12H December 26, 2022 12:00am Start: 10-04-2022 End: 10-01-2024 mometasone (NASONEX) 50 mcg/ actuation nasal spray Mometasone Furoate [Nasonex] 2 SPRAY NASAL DAILY PRN For Cold Symptons December 30, 2017 Active 17 g 5 10/01/2024 Active Start: 12-30-2017 End: 10-04-2022 mometasone (NASONEX) 50 mcg/ actuation nasal spray Mometasone Furoate [Nasonex] 2 SPRAY NASAL DAILY PRN For Cold Symptons December 30, 2017 Active 0 12/30/2017 10/04/2022 Discontinued Comment on above: Mometasone Furoate [ Nasonex] 2 SPRAY NASAL DAILY PRN For Cold Symptons December 30, 2017 Active nitroglycerin 0.4 mg sublingual tablet (20 sources) Nitrate Vasodilator Start: 06-01-20 End: 12-10-19 Nitroglycerin 0.4 mg tablet, sublingual Discontinued 0.4 mg SL every 5 to 15 minutes as needed for chest pain 14 09November 11, 2022 1:45pm December 09, 2024 11:05am Comment on above: Dissolve 1 tablet un roula the tongue every 5 minutes as needed for Chest Pain. oxyCODONE hydrochloride 5 mg oral tablet (19 sources) Opioid Agonist Start: 09-08-19 End: 09-20-19 take 1 tablet by mouth every four hours as needed for pain Oxycodone 5 MG tablet Discontinued 5 mg PO EVERY 4 HOURS NEEDED as needed for Pain Or Fever September 08, 2019 12:00am September 20, 2019 7:47pm End: 01-01-2024 take 1 tablet by mouth four times daily for pain OXYCODONE IMMEDIATE RELEASE (OXY IR,ROXICODON5 MG) 5 MG Tablet Discontinued 5 MG PO FOUR TIMES A DAY for PAIN CONTROL January 01, 2024 3:19pm pantoprazole 40 mg delayed release oral tablet (20 sources) Proton Pump Inhibitor Start: 03-21-2017 End: 12-09-2024 take 1 tablet by mouth twice daily Pantoprazole 40 MG tablet Discontinued 40 mg PO TWICE A DAY March 21, 2017 12:00am December 09, 2024 11:33am REFLUX Start: 03-21-2017 End: 01-07-2023 take 1 tablet by mouth once daily pantoprazole DR (PROTONIX) 40 mg tablet Take 1 tablet by mouth once daily. 90 tablet 1 10/04/2022 01/07/2023 Discontinued Comment on above: Take 1 tablet by jess th once daily. Take 1 tablet by jess th twice daily. Take 1 tablet by jess th two times a day. Potassium (20 sources) End: 11-11-2022 POTASSIUM ORAL Take by mouth as directed. 0 11/11/2022 Discontinued POTASSIUM ORAL T jose by mouth as directed. 0 Active Comment on above: Take by mouth as dir ected. pramipexole dihydrochloride 0.25 mg oral tablet (20 sources) Nonergot Dopamine Agonist Start: 09-05-2021 End: 09-08-2021 Pramipexole 0.25 mg tablet Discontinued 0.125 mg PO AT BEDTIME 0 3 0 September 05, 2021 10:26am September 07, 2021 12:00am September 08, 2021 12:04am then DC Start: 09-05-2021 End: 09-08-2021 Pramipexole Discontinued 0.1 25 MG PO AT BEDTIME 0 3 September 05, 2021 10:26am September 08, 2021 12:04am then DC Start: 08-02-2021 End: 08-09-2021 take 1 tablet by mouth 2 hour(s) before bedtime Pramipexole 0.125 mg tablet Discontinued 0.125 mg PO AT BEDTIME 7 7 0 August 02, 2021 1:00am August 08, 2021 1:00am August 09, 2021 1:03am Take approximately 2 hours before bedtime Start: 08-02-2021 End: 09-05-2021 take 1 tablet by mouth once 2 hour(s) before bedtime Pramipexole 0.25 mg tablet Discontinued 0.25 mg PO AT BEDTIME 30 3 August 02, 2021 1:00am September 05, 2021 10:26am Start after finishing 1 week of pramipexole 0.125 dose; take approx 2 hours before bedtime Start: 04-18-2020 End: 07-18-2020 take 1 tablet by mouth three times daily Pramipexole 0.125 mg tablet Discontinued 0.125 mg PO THREE TIMES A DAY April 18, 2020 2:05pm July 18, 2020 11:14am Start: 09-20-2019 End: 04-18-2020 take 3 tablets by mouth three times daily Pramipexole 0.125 MG tablet Discontinued 0.375 mg PO THREE TIMES A DAY 90 0 September 20, 2019 12:00am April 18, 2020 2:09pm Start: 09-20-2019 End: 04-18-2020 take 0.375 mg by mouth three times daily Pramipexole Discontinued 0.375 MG PO THREE TIMES A DAY September 20, 2019 12:00am April 18, 2020 2:09pm predniSONE 10 mg oral tablet (12 sources) Start: 12-29-2023 End: 11-22-2024 take 2 tablets by mouth once daily Prednisone ([id number] MG) 10 MG TAB Discontinued 10 MG PO DAILY 05 01December 29, 2023 10:07am November 22, 2024 2:16pm 2 tablets daily for 3 days 1 tablet daily for 3 days 1/2 tablet daily for 3 days Start: 05-24-2022 End: 06-18-2022 take 1 tablet by mouth once daily Prednisone ([id number] MG) 20 MG TAB Discontinued 20 MG PO DAILY May 24, 2022 2:37pm June 18, 2022 11:50am rOPINIRole 2 mg oral tablet (20 sources) Nonergot Dopamine Agonist Start: 11-07-2020 End: 01-15-2021 take 1 tablet by mouth at bedtime Ropinirole 2 mg tablet Discontinued 2 mg PO AT BEDTIME 30 November 07, 2020 12:00am January 15, 2021 1:18pm administer 1-3 hours before bedtime Start: 09-05-2020 End: 11-07-2020 take 1 tablet by mouth at bedtime Ropinirole 3 mg tablet Discontinued 3 mg PO AT BEDTIME November 07, 2020 11:09am November 07, 2020 5:49pm administer 1-3 hours before bedtime Start: 07-18-2020 End: 09-05-2020 take 1 tablet by mouth once daily Ropinirole 2 mg tablet extended release 24 hr Discontinued 2 mg PO DAILY July 18, 2020 1:00am September 05, 2020 4:28pm 72 hr scopolamine 0.0139 mg/hr transdermal system (20 sources) Anticholinergic Start: 01-11-2023 End: 12-09-2024 Scopolamine Base 1 mg over 3 days patch 3 day Discontinued 1 NMA TD Every 3 Days 10 January 13, 2023 4:02pm December 09, 2024 11:05am Start: 12-28-2021 End: 05-08-2022 scopolamine (TRANSDERM-SCOP) patch 1.5 mg/72 hr (delivers 1 mg over 3 days) Apply 1 Patch as directed every 72 hours. 2 Patch 2 12/28/2021 05/08/2022 Discontinued Comment on above: Apply 1 Patch as dir ected every 72 hours. sertraline 100 mg oral tablet (20 sources) Serotonin Reuptake Inhibitor Start: End: take 1 tablet by mouth at bedtime Sertraline 100 MG tablet Discontinued 100 mg PO AT BEDTIME September 20, 2020 8:52am November 13, 2020 5:02pm Start: 07-18-2020 End: 08-29-2020 take 1 tablet by mouth at bedtime Sertraline 50 mg tablet Discontinued 50 mg PO AT BEDTIME 30 July 18, 2020 1:00am August 29, 2020 4:13pm silver sulfADIAZINE 10 mg/ml topical cream (12 sources) Sulfonamide Antibacterial Start: 07-28-2020 End: 08-21-2020 Silver Sulfadiazine (Silvadene) 1 % cream Discontinued 1 NMA TOPICAL TWICE A DAY 17 07July 28, 2020 1:00am August 21, 2020 9:46am apply a 1.5 mm thickness BID sucralfate 1000 mg oral tablet (20 sources) Aluminum Complex Start: 09-12-2019 End: 12-09-2024 take 1 tablet by mouth three times daily as needed Sucralfate 1 gram tablet Discontinued 1 g PO THREE TIMES A DAY as needed for stomachache May 08, 2022 4:24pm December 09, 2024 11:05am Start: 09-12-2019 End: 05-08-2022 Sucralfate 1 gram tablet Dis continued 1 {tbl} PO THREE TIMES A DAY as needed for stomachache 90 0 September 20, 2019 7:47pm May 08, 2022 4:25pm Comment on above: Take 1 tablet by jess th three times daily as needed. Take 1 tablet by jess th three times a day as needed. traMADol hydrochloride 50 mg oral tablet (20 sources) Opioid Agonist Start: 2 End: 3 take 1 tablet by mouth every six hours as needed for pain Tramadol Hcl ([id number] MG) 50 MG TAB Discontinued 50 MG PO EVERY 6 HOURS NEEDED as needed for PAIN 20 June 18, 2022 12:50pm February 21, 2023 7:18pm Start: 09-08-2019 End: 09-20-2019 take 1 tablet by mouth every six hours as needed for pain Tramadol 50 MG tablet Discontinued 50 mg PO EVERY 6 HOURS NEEDED as needed for Pain Or Fever September 08, 2019 12:00am September 20, 2019 7:47pm triamcinolone acetonide 1 mg/ml topical cream (3 sources) Corticosteroid Start: 01-01-2024 End: 11-22-2024 Triamcinolone Acetonide (TRIAMCINOLON0.1 %) 0.1 % CRE Discontinued 1 SEFERINO TOP TWICE A DAY for DERMATOSES January 01, 2024 3:29pm November 22, 2024 2:16pm varenicline 1 mg oral tablet (20 sources) Partial Cholinergic Nicotinic Agonist Start: 09-10-2023 End: 06-03-2024 take 1 tablet by mouth twice daily at mealtime varenicline (CHANTIX CONTINUING MONTH BOX) 1 mg tablet Take 1 tablet by mouth two times a day with meals. 60 tablet 2 11/19/2023 06/03/2024 Discontinued Start: 09-10-2023 take 1 tablet by jess th twice daily at mealtime varenicline (CHANTIX CONTINUING MONTH BOX) 1 mg tablet Take 1 tablet by mouth two times a day with meals. Patient should start on September 10, 2023. 60 tablet 1 09/10/2023 Active Start: 09-10-2023 take 1 tablet by jess th twice daily at mealtime varenicline (CHANTIX CONTINUING MONTH BOX) 1 mg tablet Take 1 tablet by mouth two times a day with meals. Patient should start on September 10, 2023. 60 tablet 1 09/10/2023 Active Start: 09-10-2023 take 1 tablet by jess th twice daily at mealtime varenicline (CHANTIX CONTINUING MONTH BOX) 1 mg tablet Take 1 tablet by mouth two times a day with meals. Patient should start on September 10, 2023. 60 tablet 1 09/10/2023 Active Start: 09-10-2023 take 1 tablet by jess th twice daily at mealtime varenicline (CHANTIX CONTINUING MONTH BOX) 1 mg tablet Take 1 tablet by mouth two times a day with meals. Patient should start on September 10, 2023. 60 tablet 1 09/10/2023 Active Start: 09-10-2023 take 1 tablet by jess th twice daily at mealtime varenicline (CHANTIX CONTINUING MONTH BOX) 1 mg tablet Take 1 tablet by mouth two times a day with meals. Patient should start on September 10, 2023. 60 tablet 1 09/10/2023 Active Start: 09-10-2023 take 1 tablet by jess th twice daily at mealtime varenicline (CHANTIX CONTINUING MONTH BOX) 1 mg tablet Take 1 tablet by mouth two times a day with meals. Patient should start on September 10, 2023. 60 tablet 1 09/10/2023 Active Start: 08-13-2023 End: 06-03-2024 take 1 tablet by mouth once daily varenicline (CHANTIX) 0.5 mg (11)- 1 mg (42) tablet Indications: Tobacco use disorder Take 0.5 mg by mouth once daily on Days 1 through 3, THEN 0.5 mg twice daily on Days 4 through 7, THEN 1 mg twice daily on Day 8 and thereafter 53 tablet 08/13/2023 06/03/2024 Discontinued Comment on above: Take 1 tablet by mouth two times a day w ith meals. Patient should start on September 10, 2023. Take 0.5 mg by mouth once daily on Days 1 through 3, THEN 0.5 mg twice daily on Days 4 through 7, THEN 1 mg twice daily on Day 8 and thereafter vitamin b12 0.5 mg oral tablet (20 sources) Vitamin B12 Start: 3 End: take 2 tablets by mouth at breakfast Cyanocobalamin (Vitamin B-12) 500 mcg tablet Discontinued 1000 ug PO WITH BREAKFAST 60 2 February 19, 2023 3:21pm December 09, 2024 11:05am Start: 01-11-2023 End: 02-19-2023 take 1000 ug by mouth at breakfast Cyanocobalamin (Vitamin B-12) Active 1000 MCG PO WITH BREAKFAST 60 February 19, 2023 3:21pm Comment on above: Take 500 mcg by mout h twice daily. Take 2 tablets daily Problems Active Problems Problem Classification Problem Date Documented Da te Episodic/Chronic Abdominal pain (12 sources) Abdominal pain; Translations: [Unspecified abdominal pain] 08-20-2021 Episodic Acquired foot deformities (1 source) Right foot drop; Translations: [Foot drop, right foot] Episodic Acute and unspecified renal failure (7 sources) Renal failure syndrome; Translations: [Unspecified kidney failure] 01-08-2023 Chronic Acute and unspecified renal failure (18 sources) Acute renal failure syndrome; Translations: [Acute kidney failure, unspecified] 12-26-2022 Episodic Allergic reactions (2 sources) Bee allergy status; Translations: [Allergy status to other drugs, medicaments and biological substances status] Onset: 5 Episodic Anxiety disorders (20 sources) Anxiety; Translations: [Anxiety disorder, unspecified] Onset: 4 Resolved: 0 02-21-2020 Chronic Blindness and vision defects (12 sources) Visual hallucinations; Translations: [Visual hallucinations] 02-21-2020 Episodic Cardiac dysrhythmias (20 sources) Paroxysmal atrial fibrillation; Translations: [Paroxysmal atrial fibrillation] Onset: 1 02-12-2021 Chronic Comment on above: DCCV on 09/02/2019; Cataract (20 sources) Cataract; Translations: [Unspecified cataract] Onset: 2 09-14-2021 Chronic Chronic kidney disease (20 sources) Chronic kidney disease stage 3B ; Translations: [Stage 3b chronic kidney disease] Onset: 0 06-02-2020 Chronic Chronic kidney disease (2 sources) Chronic kidney disease; Translations: [Stage 3b chronic kidney disease (HCC)] Onset: 3 Chronic ulcer of skin (12 sources) Skin ulcer; Translations: [Non-pressure chronic ulcer of skin of other sites with unspecified severity] 07-28-2020 Chronic Conditions associated with dizziness or vertigo (10 sources) Dizziness; Translations: [Dizziness and giddiness] Episodic Coronary atherosclerosis and other heart disease (20 sources) Coronary atherosclerosis; Translations: [Atherosclerotic heart disease of [place] coronary artery without angina pectoris] Onset: 7 10-04-2019 Chronic Deficiency and other anemia (13 sources) Anemia; Translations: [Anemia, unspecified] 03-05-2021 Episodic Deficiency and other anemia (3 sources) Anemia, unspecified; Translations: [Anemia, unspecified] 12-12-2022 Episodic Delirium, dementia, and amnestic and other cognitive disorders (20 sources) Dementia with behavioral disturbance; Translations: [Unspecified dementia with behavioral disturbance] Onset: 1 07-21-2020 Chronic Diabetes mellitus with complications (13 sources) Type 2 diabetes mellitus; Translations: [Type 2 diabetes mellitus with diabetic chronic kidney disease] Onset: 8 09-14-2024 Chronic Diabetes mellitus without complication (20 sources) Type 2 diabetes mellitus without complication; Translations: [Type 2 diabetes mellitus without complications] Onset: 8 07-04-2019 Chronic Diseases of mouth; excluding dental (1 source) Glossodynia; Translations: [GLOSSODYNIA] Onset: 5 Episodic Disorders of lipid metabolism (20 sources) Mixed hyperlipidemia; Translations: [Mixed hyperlipidemia] Onset: 6 01-08-2016 Chronic Diverticulosis and diverticulitis (20 sources) Diverticular disease; Translations: [Diverticulosis of intestine, part unspecified, without perforation or abscess without bleeding] Onset: 4 11-16-2013 Chronic E Codes: Fall (12 sources) Fall; Translations: [Unspecified fall, initial encounter] 09-09-2019 Episodic E Codes: Natural/environment (1 source) Tick bite; Translations: [Bitten or stung by nonvenomous insect and other nonvenomous arthropods, initial encounter] 01-08-2023 Episodic Esophageal disorders (20 sources) Gastroesophageal reflux disease without esophagitis; Translations: [Gastro-esophageal reflux disease without esophagitis] Onset: 6 01-08-2016 Chronic Essential hypertension (20 sources) Essential hypertension; Translations: [Essential (primary) hypertension] 01-08-2016 Chronic Fluid and electrolyte disorders (20 sources) Hypokalemia; Translations: [Hypokalemia] 12-26-2022 Episodic Fracture of upper limb (8 sources) Closed fracture of distal end of right radius; Translations: [Unspecified fracture of the lower end of right radius, initial encounter for closed fracture] 03-13-2023 Episodic Gastritis and duodenitis (1 source) Gastritis; Translations: [Gastritis, unspecified, without bleeding] 01-28-2023 Episodic Glaucoma (20 sources) Suspected bilateral glaucoma; Translations: [Preglaucoma, unspecified, bilateral] Onset: 2 09-14-2021 Chronic Headache; including migraine (20 sources) Migraine without aura, not refractory ; Translations: [Migraine without aura, not intractable, without status migrainosus] Onset: 7 07-09-2016 Chronic Hypertension with complications and secondary hypertension (1 source) Hypertensive chronic kidney disease with stage 1 through stage 4 chronic kidney disease, or unspecified chronic kidney disease; Translations: [HYPERTENSIVE CHRONIC KIDNEY DISEASE W STG 1-4/UNSP] Onset: 5 Chronic Intestinal obstruction without hernia (20 sources) Large bowel obstruction; Translations: [Unspecified intestinal obstruction, unspecified as to partial versus complete obstruction] 08-20-2021 Episodic Malaise and fatigue (15 sources) Asthenia; Translations: [Other malaise] Onset: 5 Episodic Mood disorders (20 sources) Moderate major depression, single episode; Translations: [Major depressive disorder, single episode, moderate] Onset: 9 07-14-2018 Chronic Mycoses (1 source) Candidal stomatitis; Translations: [CANDIDAL STOMATITIS] Onset: 5 Episodic Nausea and vomiting (18 sources) Nausea and vomiting; Translations: [Nausea with vomiting, unspecified] Onset: 5 08-20-2021 Episodic Noninfectious gastroenteritis (12 sources) Colitis; Translations: [Noninfective gastroenteritis and colitis, unspecified] 10-04-2019 Episodic Nonspecific chest pain (17 sources) Chest pain; Translations: [Chest pain, unspecified] Episodic Occlusion or stenosis of precerebral arteries (20 sources) Bilateral stenosis of carotid arteries; Translations: [Occlusion and stenosis of bilateral carotid arteries] Onset: 1 02-12-2021 Chronic Osteoarthritis (20 sources) Arthritis of hip; Translations: [Unilateral primary osteoarthritis, unspecified hip] Onset: 3 06-18-2021 Chronic Osteoporosis (20 sources) Senile osteoporosis; Translations: [Age-related osteoporosis without current pathological fracture] Onset: 0 06-01-2020 Chronic Other aftercare (1 source) Post-discharge follow-up; Translations: [Encounter for follow-up examination after completed treatment for conditions other than malignant neoplasm] 01-07-2023 Episodic Other aftercare (1 source) 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 terminal operator (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) use of 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; Translations: [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 SERVICE EQUIPMENT MECHANIC (CURRENT) USE OF ASPIRIN] Onset: 5 Episodic Other aftercare (1 source) jail (current) use of oral hypoglycemic drugs; Translations: [GROUND SERVICE EQUIPMENT MECHANIC (CURRENT) USE OF ORAL HYPOGLYCEMIC DRUGS] Onset: 5 Episodic Other and ill-defined cerebrovascular disease (12 sources) Cerebrovascular disease; Translations: [Cerebrovascular disease, unspecified] 08-12-2022 Chronic Other and ill-defined cerebrovascular disease (3 sources) Cerebrovascular disease, unspecified; Translations: [Unspecified cerebrovascular disease] 12-12-2022 Chronic Other circulatory disease (20 sources) Disorder of carotid artery; Translations: [Disorder of arteries and arterioles, unspecified] Onset: 8 12-15-2017 Chronic Other connective tissue disease (2 sources) Impingement syndrome of right shoulder region; Translations: [Impingement syndrome of right shoulder] Episodic Other connective tissue disease (1 source) Neurological symptom; Translations: [Other symptoms and signs involving the nervous system] Episodic Other connective tissue disease (12 sources) Muscle pain; Translations: [Myalgia, unspecified site] 06-12-2023 Episodic Other connective tissue disease (2 sources) Myalgia, unspecified site; Translations: [Myalgia and myositis, unspecified] Onset: 5 06-12-2023 Episodic Other disorders of stomach and duodenum (5 sources) Hypertrophic gastropathy; Translations: [Other diseases of stomach and duodenum] 01-19-2023 Episodic Other fractures (8 sources) Fracture of multiple ribs ; Translations: [Closed fracture of multiple ribs, unspecified] 06-18-2022 Episodic Other gastrointestinal disorders (20 sources) Colostomy present; Translations: [Colostomy status] Onset: 0 06-01-2020 Chronic Other gastrointestinal disorders (12 sources) Irritable bowel syndrome characterized by constipation; Translations: [Irritable bowel syndrome with constipation] 02-21-2020 Chronic Other gastrointestinal disorders (1 source) Colostomy status; Translations: [Colostomy status] Onset: 5 Chronic Other gastrointestinal disorders (12 sources) Constipation; Translations: [Constipation, unspecified] 08-20-2021 Episodic Other hereditary and degenerative nervous system conditions (20 sources) Restless legs; Translations: [Restless legs syndrome] 11-16-2013 Chronic Other infections; including parasitic (12 sources) History of bacterial infection; Translations: [Personal history of other infectious and parasitic diseases] 08-20-2021 Episodic Other lower respiratory disease (14 sources) Dyspnea on exertion; Translations: [Dyspnea, unspecified] 12-17-2021 Episodic Other lower respiratory disease (1 source) Dyspnea, unspecified; Translations: [Other respiratory abnormalities] Episodic Other lower respiratory disease (3 sources) Other forms of dyspnea; Translations: [Other respiratory abnormalities] Episodic Other lower respiratory disease (14 sources) Dyspnea; Translations: [Shortness of breath] 01-23-2022 Episodic Other lower respiratory disease (10 sources) Wheezing; Translations: [Wheezing] 01-23-2022 Episodic Other lower respiratory disease (3 sources) Shortness of breath; Translations: [Shortness of breath] Onset: 5 Episodic Other nervous system disorders (12 sources) Disorder of brain; Translations: [Encephalopathy, unspecified] 02-21-2020 Chronic Other nervous system disorders (1 source) Other chronic pain; Translations: [Other chronic pain] Onset: 4 Chronic Other nervous system disorders (1 source) Numbness of foot ; Translations: [Anesthesia of skin] Episodic Other non-traumatic joint disorders (2 sources) Chronic pain of right upper limb; Translations: [Pain in right shoulder] Episodic Other non-traumatic joint disorders (1 source) Shoulder pain; Translations: [Pain in left shoulder] Episodic Other non-traumatic joint disorders (1 source) Disorder of shoulder; Translations: [Other specified joint disorders, unspecified shoulder] Episodic Other nutritional; endocrine; and metabolic disorders (6 sources) Hypomagnesemia; Translations: [Hypomagnesemia] 01-08-2023 Chronic Other nutritional; endocrine; and metabolic disorders (1 source) Hypomagnesemia; Translations: [Disorders of magnesium metabolism] 01-08-2023 Chronic Other nutritional; endocrine; and metabolic disorders (12 sources) Decrease in appetite; Translations: [Anorexia] 09-21-2020 Episodic Other screening for suspected conditions (not mental disorders or infectious disease) (20 sources) Thyroid function tests abnormal; Translations: [Other specified abnormal findings of blood chemistry] Onset: 0 Resolved: 5 06-01-2020 Episodic Other skin disorders (5 sources) Breast changes; Translations: [Changes in skin texture] 07-05-2024 Episodic Other upper respiratory infections (1 source) Acute pharyngitis, unspecified; Translations: [ACUTE PHARYNGITIS, UNSPECIFIED] Onset: 5 Episodic [place]-; endo-; and myocarditis; cardiomyopathy (except that caused by tuberculosis or sexually transmitted disease) (20 sources) Heart valve disorder; Translations: [Endocarditis, valve unspecified] Onset: 1 02-12-2021 Chronic Pulmonary heart disease (20 sources) Pulmonary hypertension, unspecified; Translations: [Other chronic pulmonary heart diseases] Onset: 1 02-12-2021 Chronic Residual codes; unclassified (20 sources) Insomnia; Translations: [Insomnia, unspecified] Onset: 6 06-30-2017 Episodic Residual codes; unclassified (12 sources) Other specified health status; Translations: [Failure of outpatient treatment] 08-20-2021 Episodic Residual codes; unclassified (12 sources) Altered mental status; Translations: [Altered mental status, unspecified] 08-20-2021 Episodic Residual codes; unclassified (3 sources) Flushing; Translations: [Flushing] Episodic Residual codes; unclassified (4 sources) Insomnia, unspecified; Translations: [Insomnia, unspecified] Onset: 5 12-12-2022 Episodic Residual codes; unclassified (1 source) Tobacco user; Translations: [Tobacco use] 02-04-2023 Episodic Residual codes; unclassified (1 source) Menopause present; Translations: [Asymptomatic menopausal state] 09-08-2023 Episodic Residual codes; unclassified (2 sources) Postmenopausal state; Translations: [Asymptomatic menopausal state] 09-08-2023 Episodic Septicemia (except in labor) (12 sources) Sepsis; Translations: [Sepsis, unspecified organism] 08-20-2021 Episodic Spondylosis; intervertebral disc disorders; other back problems (20 sources) Degeneration of lumbar intervertebral disc; Translations: [Other intervertebral disc degeneration, lumbar region] Onset: 6 01-07-2018 Chronic Spondylosis; intervertebral disc disorders; other back problems (20 sources) Chronic low back pain; Translations: [Chronic midline low back pain without sciatica] Onset: 2 08-02-2021 Episodic Sprains and strains (1 source) Traumatic rupture of rotator cuff; Translations: [Strain of muscle(s) and tendon(s) of the rotator cuff of left shoulder, subsequent encounter] Episodic Substance-related disorders (18 sources) Tobacco dependence syndrome; Translations: [Nicotine dependence, unspecified, uncomplicated] Onset: 5 Chronic Superficial injury; contusion (12 sources) Hematoma of scalp; Translations: [Contusion of scalp, initial encounter] 09-09-2019 Episodic Syncope (11 sources) Syncope; Translations: [Syncope and collapse] 12-12-2022 Episodic Transient cerebral ischemia (1 source) Cerebral ischemia; Translations: [Transient cerebral ischemic attack, unspecified] Chronic Unclassified (1 source) Unknown / UNK(Unknown) Onset: 7 Unclassified (1 source) Low back pain, unspecified; Translations: [Low back pain, unspecified] Onset: 5 Viral infection (1 source) Viral infection, unspecified; Translations: [VIRAL INFECTION, UNSPECIFIED] Onset: 5 Episodic Past or Other Problems Problem Classification Problem Date Documented Da te Episodic/Chronic Abdominal hernia (20 sources) Hiatal hernia; Translations: [Diaphragmatic hernia without obstruction or gangrene] Onset: 07-28-2017 07-14-2018 Episodic Administrative/social admission (20 sources) Advance directive discussed with patient; Translations: [Other specified counseling] Onset: 05-08-2022 Episodic Coronary atherosclerosis and other heart disease (8 sources) Presence of coronary angioplasty implant and graft; Translations: [Percutaneous transluminal coronary angioplasty status] Onset: 04-23-2013 Episodic Deficiency and other anemia (20 sources) Iron deficiency anemia; Translations: [Iron deficiency anemia, unspecified] Onset: 07-04-2019 07-04-2019 Episodic Deficiency and other anemia (2 sources) Iron deficiency anemia, unspecified; Translations: [Iron deficiency anemia, unspecified iron deficiency anemia type] Onset: 07-04-2019 Episodic Other aftercare (20 sources) Drug therapy finding; Translations: [Other supervisor intermediates (current) drug therapy] Onset: 06-26-2017 12-29-2017 Episodic Other aftercare (20 sources) Patient encounter status; Translations: [Other assisted (current) drug therapy] Onset: 06-26-2017 Resolved: 07-19-2019 06-01-2020 Episodic Other aftercare (2 sources) Other supervisor intermediates (current) drug therapy; Translations: [Medication management] Onset: 06-01-2020 Episodic Other connective tissue disease (20 sources) Fibromyalgia; Translations: [Fibromyalgia] Onset: 11-17-2013 11-17-2013 Episodic Other connective tissue disease (20 sources) Recurrent falls ; Translations: [Repeated falls] Onset: 01-08-2016 Resolved: 07-28-2017 07-28-2017 Episodic Other infections; including parasitic (20 sources) History of herpes zoster; Translations: [Personal history of other infectious and parasitic diseases] Onset: 06-23-2004 07-14-2018 Episodic Other non-traumatic joint disorders (20 sources) Hip pain; Translations: [Pain in left hip] Onset: 11-07-2014 Resolved: 07-19-2019 Episodic Other non-traumatic joint disorders (16 sources) Pain in right hip joint; Translations: [Pain in right hip] Onset: 11-07-2014 Resolved: 07-19-2019 Episodic Other non-traumatic joint disorders (1 source) Pain in right hip; Translations: [Right hip pain] Onset: 07-05-2024 Episodic Other skin disorders (20 sources) Foot callus; Translations: [Corns and callosities] Onset: 06-01-2020 06-01-2020 Episodic Other skin disorders (1 source) Changes in skin texture; Translations: [Breast skin changes] Onset: 09-14-2024 Episodic Residual codes; unclassified (12 sources) History of cardioversion; Translations: [Other specified postprocedural states] Onset: 09-02-2019 08-20-2021 Episodic Residual codes; unclassified (12 sources) History of cardiac catheterization; Translations: [Other specified postprocedural states] Onset: 01-22-2016 08-23-2021 Episodic Comment on above: LMT: patent stent wi th mild diffuse CAD; LAD: Normal; LCX: is 3.5mm in diameter and is narrowed 10%; Ramus: Normal; RCA: mid RCA is 3.5mmin diameter and is narrowed 30% per cardiac cath 02/13/16 @ [facility] ;LMT: Widely patent stent in the LMT into the LAD which has NO ISR; LAD: Normal; LCX: Normal; RCA: large dominant, Normal per cardiac cath 09/17/13 @ [facility] Residual codes; unclassified (20 sources) Active living will ; Translations: [Other specified health status] Onset: 11-11-2022 11-11-2022 Episodic Screening and history of mental health and substance abuse codes (20 sources) Ex-smoker; Translations: [Personal history of nicotine dependence] Onset: 10-19-2014 10-04-2019 Episodic Unclassified (1 source) Onset: 05-09-2017 Unclassified (20 sources) SUMMARY Onset: 05-04-2013 Resolved: 07-28-2017 06-18-2021 Results Test Name Value Interpretation Reference Range Facility [facility] deOrdered By: Pranay Brian on 01-25-2025 Glucose [Mass/Vol] 99 mg/dL 74-106 [facility] Comment on above: MANAGEMENT OF PATIEN T CARE PER NURSING PROTOCOL MR/Theresa 01-20-2025 MR/[facility] Medical Records Department [address] [place] [address] PAT - Anesthesia 01/20/25 1445 MR#: [id number] Acct: [id number] Name: TY YU Rep #: [id number] : 1955 69 From: Mark Khalil MD PCP: Dr. Magan Amador MD Status:PRE [facility] Race: C Location: EN Pre-Assessment Diagnosis/Proposed Procedure Planned Operative Procedure(s): egd Anesthesia History Anesthesia History - brand advocate: Anesthesia History - brand advocate Hx Hospitalization Yes: nausea vomiting 01/20/25 12:44 Any Problems With Anesthesia No 01/20/25 12:44 Cholinesterase deficiency No 01/20/25 12:44 You/Your Family Experience No 01/20/25 12:44 fever (hyperthermia) with Relationship Recent Exposure to Contagious No 12/06/24 08:55 Disease Does patient have nerve No 01/20/25 12:44 stimulator Patient instructed to have device shut off --Does patient have Pacemaker or ICD? When Was Last Pacemaker Check QUESTION #4 FULL TEXT: You/Your Family Experience fever (hyperthermia) with Anesthesia Last Oral Intake Last Oral intake: Last Oral Intake NPO since Meds taken in AM with sips of water? 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 - brand advocate: PONV - brand advocate Female Yes 01/20/25 12:44 HX of Motion Sickness Yes 01/20/25 12:44 HX of N/V After Surgery No 01/20/25 12:44 Non-Smoker No 01/20/25 12:44 Duration of Surgery greater No 01/20/25 12:44 than 60 minutes Number of Risk Factors 2 01/20/25 12:44 PONV Score Moderate Risk 01/20/25 12:44 Height Weight Height Weight: Anesthesia: Height Weight Height 5 ft 12/06/24 08:55 Respiratory Assessment Respiratory Assessment - brand advocate: Respiratory Tract Infection Hx - brand advocate Hx Respiratory Tract Infection No 01/20/25 12:44 STOP Sleep Apnea STOP Sleep Apnea - brand advocate: STOP Sleep Apnea - brand advocate Hx Hypertension Yes: on meds 01/20/25 12:44 Hx Sleep Apnea No 01/20/25 12:44 CPAP No 12/06/24 08:55 BIPAP Do you snore loudly (louder No 01/20/25 12:44 than talking or can be heard Do you often feel tired/ No 01/20/25 12:44 fatigued/ sleepy during daytime? Has anyone observed you stop No 01/20/25 12:44 breathing during sleep? STOP Results Negative 01/20/25 12:44 QUESTION #5 FULL TEXT : Do you snore loudly (louder than talking or can be heard through closed doors)? 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 Specify any problems Hx of Preganancy in last 3 No 01/20/25 12:44 Months Nurse Filling Out Transfusion MARIE 01/20/25 12:44 Questions: Date: 01/20/25 01/20/25 12:44 Time: 12:46 01/20/25 12:44 Patient unable to answer at this time (ie. confused, unrespo /Reproduction History /Reproductive History - brand advocate: /Reproductive Hx- brand advocate Hx Now No 01/20/25 12:44 Gestational Age (in weeks): EDC: Hx Hx Para Hx Section SAB No 01/20/25 12:44 [facility] Medical History (Updated 01/20/25 @ 12:44 by Macie Nelson) Wears glasses Wears dentures Dietary restriction Smoker Hypomagnesemia ST segment changes on electrocardiography Chest pain, unspecified History of left heart catheterization (LHC) ( 02/13/16) Chronic low back pain Insomnia Anemia Nausea vomiting Skin ulcer Rheumatoid arthritis Osteoarthritis High triglycerides High cholesterol HTN (hypertension) Chronic bronchitis Carpal tunnel syndrome Paroxysmal atrial fibrillation Fecal impaction of colon Irritable bowel syndrome with constipation Hyperlipidemia Anxiety Depression Restless legs syndrome GERD (gastroesophageal reflux disease) Diverticulitis Hypokalemia Atrial fibrillation with rapid ventricular response Sepsis Visual hallucinations Encephalopathy Abdominal pain Debility Atrial fibrillation La (more content not included)... Normal [facility] L7000.0750on 12-10-2024 P ELASTASE,FECA 107 Low >200 [facility] Comment on above: Result Comment: Resu lt Units: ug Elast./g Stool of watery consistency received. Since watery stool is inherently dilute, low test results should be interpreted with caution. Retesting on formed stool, if possible, is recommended. Severe Pancreatic Insufficiency: <100 Moderate Pancreatic Insufficiency: 100 - 200 Normal: >200 Performed at: [facility] [id number] Slip Maker: Wilfredo Alfredo MD, Phone: [phone] Performed By: #### L 7000.0750 #### [facility] [place], [address] Absolute lymphocyte countOrd ered By: Krystal Mccain on 12-09-2024 Lymphocytes Auto (Unsp spec) [#/Vol] 1.30 10*3/uL 0.83-4.51 [facility] Absolute neutrophil countOrd ered By: Krystal Mccain on 12-09-2024 Neutrophils (Bld) [#/Vol] 8.1 10*3/uL High 2.0-7.7 [facility] Anion gap in Serum or Plasma Ordered By: Krystal Mccain on 12-09-2024 Anion gap [Moles/Vol] 19 mmol/L High 5-15 [facility] Automated lymphocyte count a s percentage of total leukocytesOrdered By: Krystal Mccain on 12-09-2024 Lymphocytes/100 WBC Auto (Unsp spec) 12.5 % Low 19-41 [facility] BUN/creatinine ratioOrdered By: Krystal Mccain on 12-09-2024 Urea nitrogen/Creatinine [Mass ratio] 18.5 mg/mg 10-20 [facility] Basophil percentageOrdered B y: Krystal Mccain on 12-09-2024 Basophils/100 WBC (Bld) 0.1 % 0-1 [facility] Bilirubin, totalOrdered By: Krystal Mccain on 12-09-2024 Bilirubin [Mass/Vol] 0.26 mg/dL 0.00-1.30 [facility] CBC W/Diff, Automatedon 11-21 Absolute Lymph 1.30 X10 3/uL Normal 0.83-4.51 [facility] Comment on above: Performed By: #### L 100.0100, L500.4050, L501.2450 #### [facility] [address] [place], [address] Absolute Neut 8.1 X10 3/uL High 2.0-7.7 [facility] Comment on above: Performed By: #### L 100.0100, L500.4050, L501.2450 #### [facility] [address] [place], [address] Basophils/100 WBC (Bld) 0.1 % Normal 0-1 [facility] Comment on above: Performed By: #### L 100.0100, L500.4050, L501.2450 #### [facility] [address] [place], [address] Eosinophils/100 WBC (Bld) 0.7 % Normal 0-5 [facility] Comment on above: Performed By: #### L 100.0100, L500.4050, L501.2450 #### [facility] [address] [place], [address] Erythrocyte distribution width (RBC) [Ratio] 14.3 % Normal 11.6-14.6 [facility] Comment on above: Performed By: #### L 100.0100, L500.4050, L501.2450 #### [facility] [address] [place], [address] Hematocrit (Bld) [Volume fraction] 31.6 % Low 37-47 [facility] Comment on above: Performed By: #### L 100.0100, L500.4050, L501.2450 #### [facility] [address] [place], [address] Hemoglobin (Bld) [Mass/Vol] 10.7 g/dL Low 12.0-15.0 [facility] Comment on above: Performed By: #### L 100.0100, L500.4050, L501.2450 #### [facility] [address] [place], [address] IG% 1.900 High 0.0-0.9 [facility] Comment on above: Result Comment: IG% - Immature Granulocytes (promyelocytes, myelocytes and metamyelocytes) > 1% indicates that a LEFT SHIFT is Present. Performed By: #### L 100.0100, L500.4050, L501.2450 #### [facility] [address] [place], [address] Lymphocytes/100 WBC (Bld) 12.5 % Low 19-41 [facility] Comment on above: Performed By: #### L 100.0100, L500.4050, L501.2450 #### [facility] [address] [place], [address] MCH (RBC) [Entitic mass] 29.6 pg Normal 27.0-32.0 [facility] Comment on above: Performed By: #### L 100.0100, L500.4050, L501.2450 #### [facility] [address] [place], [address] MCHC (RBC) [Mass/Vol] 33.9 g/dL Normal 32-36 [facility] Comment on above: Performed By: #### L 100.0100, L500.4050, L501.2450 #### [facility] [address] [place], [address] MCV (RBC) [Entitic vol] 87.5 fL Normal 81-[address] [facility] Comment on above: Performed By: #### L 100.0100, L500.4050, L501.2450 #### [facility] [address] [place], [address] Monocytes/100 WBC (Bld) 7.2 % Normal 0-[address] [facility] Comment on above: Performed By: #### L 100.0100, L500.4050, L501.2450 #### [facility] [address] [place], [address] Neutrophils/100 WBC (Bld) 77.6 % High 47-70 [facility] Comment on above: Performed By: #### L 100.0100, L500.4050, L501.2450 #### [facility] [address] [place], [address] Nucleated RBC (Bld) [#/Vol] 0 10*3/uL Normal 0-5 [facility] Comment on above: Performed By: #### L 100.0100, L500.4050, L501.2450 #### [facility] [address] [place], [address] Platelet mean volume (Bld) [Entitic vol] 10.2 fL Normal 6.2-12.0 [facility] Comment on above: Performed By: #### L 100.0100, L500.4050, L501.2450 #### [facility] [address] [place], [address] Platelets (Bld) [#/Vol] 417 10*3/uL Normal 150-450 [facility] Comment on above: Performed By: #### L 100.0100, L500.4050, L501.2450 #### [facility] [address] [place], [address] RBC (Bld) [#/Vol] 3.61 10*6/uL Low 4.2-5.4 [facility] Comment on above: Performed By: #### L 100.0100, L500.4050, L501.2450 #### [facility] [address] [place], [address] RDW SD 45.6 fl High 35.1-43.9 [facility] Comment on above: Performed By: #### L 100.0100, L500.4050, L501.2450 #### [facility] [address] [place], [address] WBC (Bld) [#/Vol] 10.4 10*3/uL Normal 4.4-11.0 [facility] Comment on above: Performed By: #### L 100.0100, L500.4050, L501.2450 #### [facility] [address] [place], [address] Carbon dioxide, total [Moles /volume] in Central venous bloodOrdered By: Krystal Mccain on 12-09-2024 CO2 [Moles/Vol] 13.8 mmol/L Low 21.0-32.0 [facility] Chloride assayOrdered By: Chance Mccain on 12-09-2024 Chloride [Moles/Vol] 108 mmol/L 98-108 [facility] Comprehensive Metabolic Prof ilon 12-09-2024 Albumin [Mass/Vol] 3.8 g/dL Normal 3.4-4.8 [facility] Comment on above: Performed By: #### L 100.0100, L500.4050, L501.2450 #### [facility] [address] [place], [address] Albumin/Globulin [Mass ratio] 0.9 {ratio} Normal 0.9-2.4 [facility] Comment on above: Performed By: #### L 100.0100, L500.4050, L501.2450 #### [facility] [address] [place], [address] ALK PHOS 179 U/L High 35-104 [facility] Comment on above: Performed By: #### L 100.0100, L500.4050, L501.2450 #### [facility] [address] [place], [address] ALT [Catalytic activity/Vol] 49 U/L High <=34 [facility] Comment on above: Performed By: #### L 100.0100, L500.4050, L501.2450 #### [facility] [address] [place], [address] AST [Catalytic activity/Vol] 53 U/L High <=31 [facility] Comment on above: Performed By: #### L 100.0100, L500.4050, L501.2450 #### [facility] [address] [place], [address] Bilirubin [Mass/Vol] 0.26 mg/dL Normal 0.00-1.30 [facility] Comment on above: Performed By: #### L 100.0100, L500.4050, L501.2450 #### [facility] [address] [place], [address] BUN/CRE 18.5 RATIO Normal 10-20 [facility] Comment on above: Performed By: #### L 100.0100, L500.4050, L501.2450 #### [facility] [address] [place], [address] Calcium [Mass/Vol] 8.0 mg/dL Normal 7.6-11.0 [facility] Comment on above: Performed By: #### L 100.0100, L500.4050, L501.2450 #### [facility] [address] [place], [address] Chloride [Moles/Vol] 108 mmol/L Normal 98-108 [facility] Comment on above: Performed By: #### L 100.0100, L500.4050, L501.2450 #### [facility] [address] [place], [address] CO2 [Moles/Vol] 13.8 mmol/L Low 21.0-32.0 [facility] Comment on above: Performed By: #### L 100.0100, L500.4050, L501.2450 #### [facility] [address] [place], [address] Creatinine [Mass/Vol] 2.52 mg/dL High 0.70-1.20 [facility] Comment on above: Performed By: #### L 100.0100, L500.4050, L501.2450 #### [facility] [address] [place], [address] GAP 19 High 5-15 [facility] Comment on above: Performed By: #### L 100.0100, L500.4050, L501.2450 #### [facility] [address] [place], [address] GFR/1.73 sq M.predicted among non-blacks MDRD (S/P/Bld) [Vol rate/Area] 20 mL/min/{1.73_m2} Low >60 [facility] Comment on above: Result Comment: mL/m in/1.73m2 CKD-EPI Creatinine Equation (2020) Performed By: #### L 100.0100, L500.4050, L501.2450 #### [facility] [address] [place], [address] Globulin (S) [Mass/Vol] 4.2 g/dL Normal 2.2-4.2 [facility] Comment on above: Performed By: #### L 100.0100, L500.4050, L501.2450 #### [facility] [address] [place], [address] Glucose [Mass/Vol] 109 mg/dL High 70-99 [facility] Comment on above: Performed By: #### L 100.0100, L500.4050, L501.2450 #### [facility] [address] [place], [address] Potassium [Moles/Vol] 3.0 mmol/L Low 3.3-5.1 [facility] Comment on above: Performed By: #### L 100.0100, L500.4050, L501.2450 #### [facility] [address] [place], [address] Sodium [Moles/Vol] 141 mmol/L Normal 133-145 [facility] Comment on above: Performed By: #### L 100.0100, L500.4050, L501.2450 #### [facility] [address] [place], [address] T PROT 8.1 g/dL Normal 5.9-8.4 [facility] Comment on above: Performed By: #### L 100.0100, L500.4050, L501.2450 #### [facility] [address] [place], [address] Urea nitrogen [Mass/Vol] 47 mg/dL High -19 [facility] Comment on above: Performed By: #### L 100.0100, L500.4050, L501.2450 #### [facility] [address] [place], [address] Eosinophil percentageOrdered By: Krystal Mccain on 12-09-2024 Eosinophils/100 WBC (Bld) 0.7 % 0-5 [facility] Erythrocyte distribution wid th ratioOrdered By: Krystal Mccain on 12-09-2024 Erythrocyte distribution width (RBC) [Ratio] 14.3 % 11.6-14.6 [facility] Erythrocyte distribution wid th standard deviationOrdered By: Krystal Mccain on 12-09-2024 Erythrocyte distribution width (RBC) [Ratio] 45.6 fl High 35.1-43.9 [facility] Gastroenterology Visit Repor ton 12-09-2024 Gastroenterology Visit Report [facility] [address] [place] [address] OFFICE VISIT Date of Service: 12/09/24 MR#: [id number] Acct: [id number] Name: LUIS EDUARDOTY Keeley Rep #: [id number] : 1955 Provider: DARRON swift Age/Sex: 69/F Location: [facility] [place] Status: Signed Intake Vital Signs 11/30/24 15:03 12/06/24 08:55 Height 5 ft 5 ft Weight: 150 lb BMI 29.2 BP 116/64 Blood Pressure Location Rt brachial Position Sitting Respiration 17 Pulse 85 Pulse Source Monitor Temp 98.0 F Temp Source Temporal Pulse Oximetry (%) 99 Oxygen Delivery Method room air Intake Visit Reasons: HOSP FU ABDOMINAL ISSUES Chief Complaint: Allergies bee venom protein (honey bee) Allergy (Verified 12/09/24 11:01) Anaphylaxis [id number]-GqA Reductase Inhibitor Adverse Reaction (Severe, Verified 12/09/24 11:01) Myalgias promethazine HCl (From Phenergan) Adverse Reaction (Verified 12/09/24 11:01) Vomiting tuberculin, purified protein deriva Adverse Reaction (Verified 12/09/24 11:01) Swelling Medications ???Medication ???Instructions ???Recorded ???Confirmed ???Type ezetimibe 10 mg tablet 10 mg PO DAILY CHOLESTEROL 9 12/09/24 History atorvastatin 80 mg tablet 80 mg PO QHS CHOLESTEROL #30 tabs 09/20/19 12/09/24 Rx fenofibrate 54 mg tablet 54 mg PO DAILY TRIGYCERIDES 12/09/24 History fluoxetine 60 mg tablet 60 mg PO QDAY #90 tabs 11/30/24 Rx rivastigmine 9.5 mg/24 hour 9.5 mg transdermal QDAY #30 ea 04/1612/09/24 Rx transdermal patch bupropion HCl 150 mg 24 hr tablet, 300 mg PO QAM 12/09/24 12/09/24 History extended release (Wellbutrin XL) gabapentin 100 mg capsule 100 mg PO TIDCM #90 caps 12/09/24 12/09/24 Rx omeprazole 20 mg capsule,delayed 20 mg PO BID #60 caps 12/09/24 Rx release ondansetron 4 mg disintegrating 4 mg PO Q8H PRN nausea and 5 12/09/24 Rx tablet vomiting #30 tabs pioglitazone 30 mg tablet 30 mg PO QDAY 12/09/24 12/09/24 Hi story Have you fallen in the past year?: No PFSH Medical History Hypomagnesemia ST segment changes on electrocardiography Chest pain, unspecified History of left heart catheterization (LHC) ( 02/13/16) Chronic low back pain Insomnia Anemia Nausea vomiting Skin ulcer Rheumatoid arthritis Osteoarthritis High triglycerides High cholesterol HTN (hypertension) Chronic bronchitis Carpal tunnel syndrome Paroxysmal atrial fibrillation Fecal impaction of colon Irritable bowel syndrome with constipation Hyperlipidemia Anxiety Depression Restless legs syndrome GERD (gastroesophageal reflux disease) Diverticulitis Hypokalemia Atrial fibrillation with rapid ventricular response Sepsis Visual hallucinations Encephalopathy Abdominal pain Debility Atrial fibrillation Large bowel obstruction Constipation Colitis Altered mental status Failure of outpatient treatment Sigmoid diverticulitis Tobacco dependence syndrome History of Clostridium difficile infection Surgical History Cataract extraction status of left eye History of hand surgery History of laparoscopy History of cholecystectomy History of hysterectomy History of colostomy History of creation of ostomy History of partial colectomy History of cardioversion (09/02/19) Family History Mother Heart disease Myocardial infarction CVA (cerebral vascular accident) Sister Diabetes Brother Parkinson disease Social History Smoking Status: Current some day smoker tobacco type: cigarettes Tobacco: How many years used: 40 alcohol intake: never substance use type: does not use caffeine: Yes Type: carbonated beverages and coffee what type of physical activity do you participate in: walking frequency: 1-2 times per week brandon/church: Jew seatbelt use: always HPI HPI Chief Complaint: Details: TY YU, is a 69 F who presents to the office today for FU. 01.11.23 Last note charted by [facility] during [facility] hospitalization for acute abdominal pain, chest pain and dehydration; history of CAD, diabetes, anxiety, depression, GERD, perforated diverticulum status post colectomy with end colostomy. She had an admission for chest pain and underwent cardiac catheterization which was normal. She has been struggling with abdominal pain and nausea and has not found any reason why thus far. Differential diagnosis does include depression, hypertrophic gastropathy, H. pylori infection, PPI usage, chronic renal failure, hypergastrinemia. 01.10.23 EGD inpt - Moderate Schatzki ring. - Enlarged dejah (more content not included)... Normal [facility] Glomerular filtration rate ( GFR) estimation/1.73 sq m using serum, plasma, or whole bOrdered By: Krystal Mccain on 12-09-2024 GFR/1.73 sq M.predicted among non-blacks MDRD (S/P/Bld) [Vol rate/Area] 20 mL/min/{1.73_m2} Low >60 [facility] Comment on above: mL/min/1.73m2 CKD-EP I Creatinine Equation (2020) Hematocrit Auto (Bld) [Volum e fraction]Ordered By: Krystal Mccain on 12-09-2024 Hematocrit (Bld) [Volume fraction] 31.6 % Low 37-47 [facility] Hemoglobin measurementOrdere d By: Krystal Mccain on 12-09-2024 Hemoglobin (Bld) [Mass/Vol] 10.7 g/dL Low 12.0-15.0 [facility] Immature granulocytes/100 WB C Auto (Bld)Ordered By: Krystal Mccian on 12-09-2024 Immature granulocytes/100 WBC (Bld) 1.900 % High 0.0-0.9 [facility] Comment on above: IG% - Immature Granu locytes (promyelocytes, myelocytes and metamyelocytes) > 1% indicates that a LEFT SHIFT is Present. Laboratory - Chemistry and C hemistry - challengeOrdered By: Krystal Mccain on 12-09-2024 AST [Catalytic activity/Vol] 53 U/L High <32 [facility] Lipaseon 12-09-2024 Lipase [Catalytic activity/Vol] 36 U/L Normal 13-75 [facility] Comment on above: Result Comment: Heather faustin note: LIPASE revised reference range effective 22. New Lipase methodology. Expected to produce lower values than the previous assay method. NEW Reference Range: 13 - 75 U/L Performed By: #### L 100.0100, L500.4050, L501.2450 #### [facility] [address] [place] [address], [address] Lipase measurementOrdered By : Krystal Mccain on 12-09-2024 Lipase [Catalytic activity/Vol] 36 U/L 13-75 [facility] Comment on above: Please note:LIPASE r evised reference range effective 22. New Lipase methodology. Expected to produce lower values than the previous assay method. NEW Reference Range: 13 - 75 U/L MCV (mean corpuscular volume ) determinationOrdered By: Krystal Mccain on 12-09-2024 MCV (RBC) [Entitic vol] 87.5 fL 81-99 [facility] Mean corpuscular hemoglobin (MCH) determinationOrdered By: Krystal Mccain on 12-09-2024 MCH (RBC) [Entitic mass] 29.6 pg 27.0-32.0 [facility] Mean corpuscular hemoglobin concentration (MCHC) determinationOrdered By: Krystal Mccain on 12-09-2024 MCHC (RBC) [Mass/Vol] 33.9 g/dL 32-36 [facility] Mean platelet volume determi nationOrdered By: Krystal Mccain on 12-09-2024 Platelet mean volume (Bld) [Entitic vol] 10.2 fL 6.2-12.0 [facility] Monocyte percentageOrdered B y: Krystal Mccain on 12-09-2024 Monocytes/100 WBC (Bld) 7.2 % 0-10 [facility] Neutrophil percentageOrdered By: Krystal Mccain on 12-09-2024 Neutrophils/100 WBC (Bld) 77.6 % High 47-70 [facility] Nucleated red blood cell per centageOrdered By: Krystal Mccain on 12-09-2024 Nucleated RBC/100 WBC (Bld) [Ratio] 0 % 0-5 [facility] Platelet countOrdered By: Chance Mccain on 12-09-2024 Platelets (Bld) [#/Vol] 417 10*3/uL 150-450 [facility] Potassium measurement (mass/ volume)Ordered By: Krystal Mccain on 12-09-2024 Potassium (Unsp spec) [Mass/Vol] 3.0 mmol/L Low 3.3-5.1 [facility] RBC Auto (Bld) [#/Vol]Ordere d By: Krystal Mccain on 12-09-2024 RBC (Bld) [#/Vol] 3.61 10*6/uL Low 4.2-5.4 [facility] Serum creatinine measurement (mass/volume)Ordered By: Krystal Mccain on 12-09-2024 Creatinine [Mass/Vol] 2.52 mg/dL High 0.70-1.20 [facility] Serum globulin measurementOr dered By: Krystal Mccain on 12-09-2024 Globulin (S) [Mass/Vol] 4.2 g/dL 2.2-4.[address] [facility] Serum glucose measurement (m ass/volume)Ordered By: Krystal Mccain on 12-09-2024 Glucose [Mass/Vol] 109 mg/dL High 70-99 [facility] Serum or plasma alanine vides otransferase (ALT) measurementOrdered By: Krystal Mccain on 12-09-2024 ALT [Catalytic activity/Vol] 49 U/L High <35 [facility] Serum or plasma albumin tiana urement (mass/volume)Ordered By: Krystal Mccain on 12-09-2024 Albumin [Mass/Vol] 3.8 g/dL 3.4-4.8 [facility] Serum or plasma albumin/glob ulin mass ratioOrdered By: Krystal Mccain on 12-09-2024 Albumin/Globulin [Mass ratio] 0.9 {ratio} 0.9-2.4 [facility] Serum or plasma alkaline holley sphatase measurementOrdered By: Krystal Mccain on 12-09-2024 ALP [Catalytic activity/Vol] 179 U/L High 35-104 [facility] Serum or plasma calcium tiana urement (mass/volume)Ordered By: Krystal Mccain on 12-09-2024 Calcium [Mass/Vol] 8.0 mg/dL 7.6-11.0 [facility] Serum or plasma urea nitroge n measurement (mass/volume)Ordered By: Krystal Mccain on 12-09-2024 Urea nitrogen [Mass/Vol] 47 mg/dL High 4-19 [facility] Sodium levelOrdered By: Shannan Mccain on 12-09-2024 Sodium [Moles/Vol] 141 mmol/L 133-145 [facility] Stool pancreatic elastase me asurement (mass/mass)Ordered By: Krystal Mccain on 12-09-2024 Elastase.pancreatic (Stl) [Mass/Mass] 107 Low >200 [facility] Comment on above: Result Units: ug Nora st./gStool of watery consistency received. Since watery stool isinherently dilute, low test results should be interpretedwith caution. Retesting on formed stool, if possible, isrecommended. Severe Pancreatic Insufficiency: <100 Moderate Pancreatic Insufficiency: 100 - 200 Normal: >200Performed at: BN - [facility] [address] [id number] Director: Wilfredo Alfredo MD, Phone: [phone] Total proteinOrdered By: Dolly Mccain on 12-09-2024 Protein [Mass/Vol] 8.1 g/dL 5.9-8.4 [facility] White blood cell (WBC) count Ordered By: Krystal Mccain on 12-09-2024 WBC (Bld) [#/Vol] 10.4 10*3/uL 4.4-11.0 [facility] SY[facility] M 12/01/24 [place], [place] [address] [id number] TY YU Jeffrey [facility] REPORT MR [id number] LOC: EX = History of Present Illness Date of Service 12/01/24 Provider KAROLINA THOMAS APRN.COMPLIANCE MONITOR Chief Complaint Sore Throat History of Present Illness This is a 69-year-old female patient past medical surgical history hypertension, total hysterectomy, bowel obstruction, colostomy, depression, diabetes, bilateral cataract surgery, CAD, cardiac stent and CKD presents to [facility] care with complaints of painful red tongue and redness to back of throat. Patient states she had been seen in express care approximately 9 days ago she did have a rapid strep test which was negative. States she was nauseated at that time she was given Zofran. States she is out of the nausea medicine she continues to be nauseated from time to time but her mouth is so painful she is unable to wear her upper dentures. States sometimes there is a white coating on her tongue and back of throat. Patient states that before she had this redness in her mouth she had taken some leftover amoxicillin and it seemed to make the pain to the tongue worse. Patient is afebrile. Denies chest pain or shortness of breath. Denies vomiting still states that she does have an upset stomach intermittently. Denies abdominal pain. Denies urinary difficulties. Patient's nontoxic in appearance. Has no other constitutional symptoms Past Medical/Surgical History : Hypertension : TOTAL HYSTERECTOMY--2002 : BOWEL OBSTRUCTION : COLOSTOMY--2020 : Depression : Diabetes : BILATERAL CATARACT SURGERY : Coronary Artery Disease : CARDIAC STENT--2014 : CKD STAGE 4 Family History Diabetes: AUNTS, SISTER Hypertension: MOTHER CHF: DENIES Stroke: MOTHER Epilepsy: DENIES Cancer: FATHER--PANCREATIC CA Renal Disease: DENIES Heart Disease: MOTHER, MGM Neurological: BROTHER--PARKINSON'S Home Medications . Active Scripts Pantoprazole Sodium Sesquihydr (PROTONIX) 40 MG PO BID ATORVASTATIN CALCIUM (Lipitor) 80 MG PO HS Ezetimibe (Zetia) 10 MG PO DAILY ASPIRIN (DAIJA ASPIRIN LOW DOSE) 81 MG PO DAILY Diltiazem LA (Cardizem LA) 180 MG PO DAILY FLUOXETINE HCL (PROZAC) 40 MG PO QAM Ghjfwdv-Utyaledxi-Jhyw (Calcium/Magnesium/Zin c) 1 TAB PO DAILY Fenofibrate (TRICOR) (Unknown Dose) PO DAILY Gabapentin (Neurontin) (Unknown Dose) PO DAILY BUPROPION HCL (Wellbutrin SR) (Unknown Dose) PO DAILY Mirtazapine (Remeron) (Unknown Dose) PO HS Pioglitazone (Actos) 30 MG PO DAILY Ondansetron HCl (Ondansetron) 4 MG PO Q8HPRN PRN nausea Nystatin Suspension 5 ML MT TIDPRN PRN THRUSH Fluconazole (Diflucan) 150 MG PO ONCE Ondansetron HCl (Ondansetron) 4 MG PO Q8HPRN Allergies Allergies Coded Allergies: Bee Venom (Severe, ANAPHYLAXIS 01/01/24) Promethazine (From PHENERGAN) (Intermediate, VOMITING 01/01/24) Review of Systems Other All pertinent positives and negatives are reviewed in the HPI. In addition, no other body systems appear to be involved Examination Exam Vitals Vital Signs Date Time Temp Pulse Resp B/P B/P Pulse O2 O2 Flow FiO2 Mean Ox Delivery Rate 12/01 1724 98.0 94 19 141/54 95 General: Healthy and well HEENT: Scalp Normocephalic, Atraumatic PERRLA. Bilateral tympanic membranes intact unremarkable. Back of throat and tongue bright red tongue has slight white coating no open lesions. Able to lift tongue without difficulty. Cardiovascular: Regular Rate and Rhythm. Respiratory : Clear. No accessory muscle use. Abdomen: Soft, BSx4, Non-distended, Non-tender, Benign. Extremities: Distal neurovascular functions intact. Neuro : Alert and oriented x 3 Date of Last Tetanus: UNSURE Assessment / Plan, ED Orders: All Orders Procedure Date/time Status SEEN BY PHYSICIAN / PROVIDER 12/01 1722 Active Medical Decision Making: Patient was triaged. Vital signs were assessed. Nurses notes were reviewed, patient was seen and evaluated. This is a pleasant nontoxic-appearing female resting the room in no acute distress. Patient states for approximately 9 days or longer she has been having pain to the back of her throat as well as her tongue states that her tongue is bright red as well as the back of her throat occasionally there is white patches. Patient states she is unable to wear her upper dentures because of the discomfort. She did have a recent rapid strep test which was negative. Patient's presentation resembles oral candidal infection. I did discuss with patient I want her to ensure that her dentures are cleaned properly I will order her nystatin swish and spit she will also be given 1 dose of Diflucan because she has had taken recent leftover antibiotics and she also asked for Zofran for nausea. Patient is instructed to stay well-hydrated. Follow-up with PCP (more content not included)... [facility] (FAMPWS) TY YU ([id number]) 1955 F NFR Date Time Provider Department 11/30/24 FIDELIA YANES During your visit today, we recorded the following information about you: Fidelia Yanes MA 11/30/2024 2:56 PM Signed Patient dropped off Chronic Condition Verification form to be signed by PCP. Form needs faxed once completed. MARY CARMEN Kuhn Jeffrey A, MD 11/30/2024 5:02 PM Signed Form completed and ready to be faxed. Fidelia Yanes MA 12/01/2024 7:11 AM Signed Faxed. Fidelia Yanes MA Allergies As of Date: 11/30/2024 Noted Allergy Reaction BEES 01/05/2014 10 - Anaphylaxis NAMENDA (MEMANTINE) 09/14/2024 14 - Other: See Comments Comments: High BP, headache, low BS and nausea LIPITOR (ATORVASTATIN CALCIUM) 01/08/2016 17 - Myalgia PHENERGAN (PROMETHAZINE HCL) 01/25/2013 8 - GI Upset PRAVASTATIN 12/17/2017 17 - Myalgia VKOEBOS-BCL-SEQ REDUCTASE INHIBIT*12/29/2017 17 - Myalgia TRAZODONE 07/14/2018 14 - Other: See Comments Comments: Increased urine frequency Date Reviewed: 09/14/2024 Reviewed by: Magan Amador MD - Fully Assessed Reason for Visit: Forms [913] Prescriptions as of 12/01/2024 - mometasone (NASONEX) 50 mcg/actuation nasal spray Mometasone Furoate [Nasonex] 2 SPRAY NASAL DAILY PRN For Cold Symptons December 30, 2017 Active - buPROPion SR (WELLBUTRIN SR) 150 mg 12 hr tablet Take 1 tablet by mouth two times a day. - ferrous sulfate (SLOW FE) 137 mg (45 mg iron) TbER Take 1 tablet by mouth every other day. - ascorbic acid, vitamin C, (VITAMIN C) 500 mg tablet Take 1 tablet by mouth every other day. - atorvastatin (LIPITOR) 80 mg tablet Take 1 tablet by mouth daily at bedtime. For cholesterol. - dilTIAZem CD (CARTIA XT) 180 mg 24 hr capsule Take 1 capsule by mouth once daily. - ezetimibe (ZETIA) 10 mg tablet Take 1 tablet by mouth once daily. - mirtazapine (REMERON) 30 mg tablet Take 1 tablet by mouth daily at bedtime. - rivastigmine (EXELON) 4.6 mg/24 hour patch Apply 1 Patch as directed once daily. Per Neuro: Dr. Eldridge - scopolamine (TRANSDERM-SCOP) patch 1.5 mg/72 hr (delivers 1 mg over 3 days) Apply 1 Patch as directed every 72 hours. Per Gastro: Dr. Brian - gabapentin (NEURONTIN) 100 mg capsule Taken prn per gastro. Dr. Brian - pantoprazole DR (PROTONIX) 40 mg tablet Take 1 tablet by mouth two times a day. - Fenofibrate (LOFIBRA) 54 mg tablet Take 1 tablet by mouth once daily. - pioglitazone (ACTOS) 30 mg tablet Take 1 tablet by mouth once daily. - Magnesium Oxide 500 mg magnesium tab Take 1 tablet by mouth two times a day. - EPINEPHrine (EPIPEN 2-ESTEFANIA) 0.3 mg/0.3 mL auto-injector Inject 0.3 mL intramuscularly as needed. - sucralfate (CARAFATE) 1 gram tablet Take 1 tablet by mouth three times a day as needed. - Lancets lancets Test blood sugar(s) 1 times daily. Dx: Other DM Code E11.9, Insulin: No - cyanocobalamin (VITAMIN B-12) 500 mcg tablet Take 500 mcg by mouth twice daily. Take 2 tablets daily - nitroglycerin sublingual (NITROSTAT) 0.4 mg SL tablet Dissolve 1 tablet under the tongue every 5 minutes as needed for chest pain. - blood sugar diagnostic (BLOOD GLUCOSE TEST) test strip Test blood sugar(s) 1 times daily. Dx: E11.9 Insulin: No - cholecalciferol, vitamin D3, (VITAMIN D3 ORAL) Take by mouth once daily. - aspirin, enteric coated (ADULT LOW DOSE ASPIRIN) 81 mg EC tablet Take 1 tablet by mouth once daily. Meds Comments as of 07/05/2013: Calcium/Zinc tablet Problem List As Of Date 11/30/2024 Noted Resolved Hip arthritis [M16.10] 04/01/2013 Essential hypertension [I10] Mixed hyperlipidemia [E78.2] RLS (restless legs syndrome) [G25.81] SUMMARY [V999.95] 05/04/2013 07/28/2017 Anxiety [F41.9] 07/05/2013 07/19/2019 Diverticulosis [K57.90] 11/16/2013 Fibromyalgia [M79.7] 11/17/2013 Ex-smoker [Z87.891] 10/19/2014 Right hip pain [M25.551] 11/07/2014 07/19/2019 Lumbar degenerative disc disease [M51.369] 12/28/2015 Gastroesophageal reflux disease without esophag*01/08/2016 Insomnia [G47.00] 01/08/2016 Multiple falls [R29.6] 01/08/2016 07/28/2017 Migraine without aura and without status migrai*07/09/2016 Coronary artery disease involving torres martinez alarcon*07/09/2016 Osteoarthritis of multiple joints [M15.9] 09/06/2016 Well adult exam [Z00.00] 06/26/2017 07/19/2019 Encounter for screening for diabetes mellitus [*06/26/2017 07/28/2017 Hiatal hernia [K44.9] 07/28/2017 Type 2 diabetes mellitus with stage 3b chronic *12/17/2017 Encounter for screening mammogram for breast ca*12/29/2017 07/19/2019 Current moderate episode of major depressive di*07/14/2018 Colon cancer screening [Z12.11] 07/14/2018 07/19/2019 History of shingles [Z86.19] 06/23/2004 Iron deficiency anemia [D50.9] 07/04/2019 Medication management [Z79.899] 06/01/2020 Abnormal thyroid blood test [R79.89] 06/01/2020 09/14/2024 (more content not included)... Normal [facility] Neurology Visit Reporton Neurology Visit Report [facility] [address], [address] [place] [address] OFFICE VISIT Date of Service: 11/30/24 MR#: [id number] Acct: [id number] Name: TY YU Rep #: [id number] : 1955 Provider: Dr. César flores MD Age/Sex: 69/F Location: [facility] Status: Signed with Addenda ADDENDUM by Dr. César Partida MD on 11/30/24 at 1703 Addendum Addendum (11/30/2024): CMP, iron, magnesium, lipid profile, ferritin, B12, folate, hemoglobin A1c, CBC (09/21/2024): BUN 26 (high), creatinine 1.47 (high), EGFR 38 (low), cholesterol 124 (normal), triglycerides 76 (normal), HDL 75 (normal), LDL 34 (normal), folate 18.4 (high), hemoglobin 10.8 (low), hematocrit 32.5 (low), hemoglobin A1c 6.2 (high) 11/30/24 1703 Date César Partida MD cc: * Signed ADDENDUM by Dr. César Partida MD on 11/30/24 at 1700 Addendum Addendum (11/30/2024): Add to 11/30/2024 office note physical exam: Heart: Regular rate and rhythm 11/30/24 1700 Date César Partida MD cc: * Signed HPI [facility] Chief Complaint: Details: Interim History: Ty returns for follow-up. She has a history of hypertension, hyperlipidemia, paroxysmal atrial fibrillation, concussion (at age 15 years), coronary artery disease s/p stent placement (2013), colitis/large bowel obstruction s/p colostomy (2019), diet-controlled diabetes mellitus, anxiety, and depression. In August 2019, she was hospitalized for abdominal pain, encephalopathy due to sepsis, sigmoid colitis and large bowel obstruction requiring left colectomy and underwent left lower quadrant colostomy in August 2019. Her postoperative course was complicated by atrial fibrillation (treated with cardioversion) and hypokalemia. She had visual hallucinations between 2018 and 2019, following the of her . She also had cognitive difficulty beginning in 2018. She reported forgetting conversations and having poor recall of past events. Her memory difficulty had worsened over time. She is independent in her ADLs though she has limited her driving due to concern about possibly becoming lost. She has a tendency to lose her train of thought. She has accidentally left the oven on once. She reports noting having difficulty finding her car in a parking lot after shopping or finding her table at a restaurant if she is going to the restroom. She lives at home and her son lives nearby to assist her. Head MRIs (August 2019 and July 2020) revealed moderate chronic small vessel ischemic disease and mild diffuse cerebral atrophy; no acute intracranial pathology was identified. 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 It was also reported that poor nutritional intake due to daily vomiting and nausea (subsequently resolved) and disturbed sleep may have also been influencing her cognitive profile. A PET scan on 11/21/2020 was unremarkable. She has noted short term memory difficulty. Donepezil caused nausea. Ondansetron was of benefit for her nausea. Memantine caused nausea. Galantamine caused nausea and was discontinued. Rivastigmine patch was initiated earlier in 2024 and the patient and her son report that the patient has had some slight functional improvement of her memory though her Mini-Mental status exam score today is 1 point less than prior to initiation of rivastigmine patch. She is tolerating rivastigmine patch well. Beginning in 2019, she had a mild, fine tremor affecting both hands (right greater than left) that was increased with action and heightened emotions. Her tremor did not generally interfere with her daily activities, except for some activities, such as threading a needle or painting her nails. She has had headaches since she was in her 20s. Her headaches have generally occurred 1 or 2 days/month. She has had associated photophobia, phonophobia and nausea. Acetaminophen is of benefit for her headaches. She has had longstanding chronic low back pain that has been exacerbated by increased activity. She has had right leg numbness and tingling since 2022. Cyclobenzaprine 5 mg nightly was not of significant benefit. Tizanidine is of some benefit for her insomnia and low back pain. Lumbar paraspinal muscle trigger point injections have been of benefit for her back pain. She has depression, anxiety and chronic insomnia. Duloxetine was not of benefit. Sertraline was not well-tolerated. Fluoxetine is of benefit. Escitalopram was of initial benefit then lost efficacy. Melatonin was not of significant be (more content not included)... Normal [facility] US CAROTID ARTERIES [facility] 11-30-2024 CAROTID ARTERIES [facility] Non-Invasive Vascular Laboratory [facility] Carotid Duplex Bilateral/Complete Date of service/time: 11/30/2024 10:55:58 AM Name: MRS. TY YU Date of : 1955 Age: 69 years Gender: F Clinical Indication Follow-up study on a patient with known carotid disease. TECHNIQUE -------- A carotid duplex ultrasound examination was performed, including grayscale imaging and color Doppler and spectral Doppler examination of the below mentioned arteries. FINDINGS -------- RIGHT SIDE Common carotid artery: Origin: PSV: 96 cm/s. EDV: 20 cm/s. Proximal: PSV: 109 cm/s. EDV: 22 cm/s. Mid: PSV: 104 cm/s. EDV: 25 cm/s. Distal: PSV: 97 cm/s. EDV: 25 cm/s. Mild heterogeneous plaque at distal. Internal carotid artery: Origin: PSV: 76 cm/s. EDV: 19 cm/s. Proximal: PSV: 99 cm/s. EDV: 30 cm/s. Mid: PSV: 104 cm/s. EDV: 33 cm/s. Distal: PSV: 64 cm/s. EDV: 23 cm/s. Mild heterogeneous plaque at origin. ICA/CCA Ratio: 1.0 External carotid artery: Origin: PSV: 60 cm/s. EDV: 11 cm/s. Subclavian artery: Origin: PSV: 182 cm/s. EDV: 0 cm/s. Mild/moderate heterogeneous plaque at origin. Innominate artery: PSV: 102 cm/s. EDV: 21 cm/s. Vertebral artery: PSV: 72 cm/s. EDV: 22 cm/s. LEFT SIDE Common carotid artery: Proximal: PSV: 93 cm/s. EDV: 20 cm/s. Mid: PSV: 100 cm/s. EDV: 22 cm/s. Distal: PSV: 107 cm/s. EDV: 27 cm/s. Mild heterogeneous plaque from mid to distal. Internal carotid artery: Origin: PSV: 162 cm/s. EDV: 44 cm/s. Proximal: PSV: 111 cm/s. EDV: 26 cm/s. Mid: PSV: 105 cm/s. EDV: 36 cm/s. Distal: PSV: 87 cm/s. EDV: 29 cm/s. Moderate heterogeneous plaque at origin. ICA/CCA Ratio: 1.5 External carotid artery: Origin: PSV: 73 cm/s. EDV: 15 cm/s. Subclavian artery: Proximal: PSV: 118 cm/s. EDV: 0 cm/s. Vertebral artery: PSV: 62 cm/s. EDV: 18 cm/s. IMPRESSION Please note: the new carotid interpretation criteria are used as recommended by [facility] Commission. When compared with the prior study, of 12/12/2022 no significant change is noted on the right side and no significant change is noted on the left side. RIGHT SIDE Common carotid artery: Plaque visualized without evidence of hemodynamically significant stenosis. Internal carotid artery: <50% stenosis consistent with mild carotid artery disease. Vertebral artery: Patent and antegrade flow noted. Subclavian artery: Plaque visualized without evidence of hemodynamically significant stenosis. LEFT SIDE Common carotid artery: Plaque visualized without evidence of hemodynamically significant stenosis. Internal carotid artery: <50% stenosis consistent with mild carotid artery disease. Vertebral artery: Patent and antegrade flow noted. Subclavian artery: Patent. Technologist: Lucía Hernandez RVT, [facility] Ordering physician: MAGAN AMADOR Interpreting physician: SB Womack MD Final CC [employer] [facility] : [id number] See Link below for Image Normal [facility] 11-22-2024 EXP [place], [place] [address] [id number] TY YU Jeffrey [facility] REPORT MR [id number] LOC: EX = History of Present Illness Date of Service 11/22/24 Provider Tiburcio Barajas Chief Complaint Sore Throat History of Present Illness 69-year-old female past medical history of hypertension, total hysterectomy, bowel obstruction, colostomy, depression, diabetes, coronary artery disease with stenting, chronic kidney disease stage IV presents today with complaints of sore throat, nausea, emesis. States that her symptoms started yesterday. States that she has had 2 episodes of emesis. Denies any fevers or chills. States that she has not taken anything over-the- counter for symptoms. Past Medical/Surgical History : Hypertension : TOTAL HYSTERECTOMY--2001 : BOWEL OBSTRUCTION : COLOSTOMY--2019 : Depression : Diabetes : BILATERAL CATARACT SURGERY : Coronary Artery Disease : CARDIAC STENT--2014 : CKD STAGE 4 Family History Diabetes: AUNTS, SISTER Hypertension: MOTHER CHF: DENIES Stroke: MOTHER Epilepsy: DENIES Cancer: FATHER--PANCREATIC CA Renal Disease: DENIES Heart Disease: MOTHER, MGM Neurological: BROTHER--PARKINSON'S Social History Smoking history: Current every day smoker Alcohol: DENIES Drugs: DENIES Home Medications . Active Scripts Pantoprazole Sodium Sesquihydr (PROTONIX) 40 MG PO BID ATORVASTATIN CALCIUM (Lipitor) 80 MG PO HS Ezetimibe (Zetia) 10 MG PO DAILY ASPIRIN (DAIJA ASPIRIN LOW DOSE) 81 MG PO DAILY Diltiazem LA (Cardizem LA) 180 MG PO DAILY FLUOXETINE HCL (PROZAC) 40 MG PO QAM Huevngc-Abiziqaah-Doch (Calcium/Magnesium/Zin c) 1 TAB PO DAILY Fenofibrate (TRICOR) (Unknown Dose) PO DAILY Gabapentin (Neurontin) (Unknown Dose) PO DAILY BUPROPION HCL (Wellbutrin SR) (Unknown Dose) PO DAILY Mirtazapine (Remeron) (Unknown Dose) PO HS Pioglitazone (Actos) 30 MG PO DAILY Ondansetron HCl (Ondansetron) 4 MG PO Q8HPRN PRN nausea Allergies Allergies Coded Allergies: Bee Venom (Severe, ANAPHYLAXIS 01/01/24) Promethazine (From PHENERGAN) (Intermediate, VOMITING 01/01/24) Review of Systems Other Review of systems is negative unless otherwise stated in HPI. Examination Exam Vitals Vital Signs Date Time Temp Pulse Resp B/P B/P Pulse O2 O2 Flow FiO2 Mean Ox Delivery Rate 11/22 1413 97.6 83 19 106/61 98 Date of Last Tetanus: UNSURE Other Physical Findings General appearance-patient is alert and oriented, nontoxic in appearance, no acute distress. HEENT-normocephalic, atraumatic, PERRLA, oral mucosa pink and moist, posterior oropharynx is without erythema, edema, or exudates, both ear canals are clear with normal tympanic membranes. Neck- supple without lymphadenopathy. Cardiovascular-regular rhythm, normal S1, S2, no murmurs, rubs, or gallops. Respiratory-lungs are clear to auscultation without wheezes, rhonchi, or crackles. Abdomen-soft, nondistended, nontender, ostomy present left lower quadrant, with positive bowel sounds in all 4 quadrants. Diagnostic Studies Laboratory Tests 11/22 1432 Serology Group A Strep Rapid (Negative) NEG Assessment / Plan, ED Orders: All Orders Procedure Date/time Status GROUP A STREP SCREEN 11/22 UNK Active EX BETA STREP TEST W/REFLEX SS 11/22 1432 Complete SEEN BY PHYSICIAN / PROVIDER 11/22 1407 Active Medical Decision Making: Nurse notes and vital signs are reviewed. Rapid strep is done and it is negative. It will be sent for culture and sensitivity. Patient is given a prescription of Zofran as needed for nausea. She is to rest, drink plenty fluids, take Tylenol as needed for pain/ fevers. She is to do [id number] symptomatic management as needed. She is to follow -up with primary care as needed. She is to report to the emergency department for worsening symptoms. This plan has been discussed with the patient and she is agreeable with it. Clinical Impression: VIRAL SYNDROME Condition: Good Disposition: HOME/SENIOR CARE/ASSIST.CHILO(01) Prescriptions: Current Visit Scripts Ondansetron HCl (Ondansetron) 4 MG PO Q8HPRN PRN nausea 3 Days #9 TAB Referrals: Magan Amador (PCP/Family): 4 Patient Instructions: DI for Viral Syndrome Additional Instructions: Rest Plenty of fluids Tylenol as needed for pain and fevers [id number] symptomatic management as needed Zofran as needed for nausea Follow-up with primary care as needed Report to the emergency department for worsening symptoms RYAN Crawley Signed Electronically 11/22/24 7868 [facility] REPORT Normal [facility] GROUP A STREP SCREENon 11-22 GROUP A STREP SCREEN --- ---- RUN DATE: 11/24/24 Laboratory LIVE PAGE 1 RUN TIME: 1045 Specimen Inquiry RUN USER: INTERFACE ---- [facility] Department of Laboratories [address] [place] [address] PATIENT: TY YU LOC: EX U #: [id number] HOME PHONE: AGE/SX: 69/F ROOM: RE11/22/[address] [facility] [address]: Tiburcio Barajas : 53 BED: DIS: STATUS: ROSS ER LAB O/S: ---- Specimen: [id number] Collected: 11/22/24-1430 Status: COMP Req#: [id number] Received: 11/22/24 Source: THROAT Sp Desc: Subm Dr: Tiburcio Barajas Ordered: GP A STREP SCRN ---- Procedure Result Verified ---- > GROUP A STREP SCREEN Final 11/24/24 NO BETA HEMOLYTIC STREP AFTER 48 HOURS ---- END OF REPORT Normal [facility] Comment on above: Performed By: #### V ITD #### [facility] [address] [address] HCG Ur QlOrdered By: Aline Barajas on 11-22-2024 HCG ( test) Ql (U) Negative Negative [facility] Comment on above: Testing performed at [facility] STREP SCREEN [facility] CARE[facility] 11-22-2024 STREP SCREEN [facility] Negative Normal Negative [facility] Comment on above: Result Comment: Test ing performed at [facility] [address] Performed By: #### V ITD #### [facility] [address] [address] Radha 09-22-2024 CNPN Telephone (FAMPWS) TY YU ([id number]) 1955 F NFR Date Time Provider Department 09/22/24 FIDELIA YANES [facility] During your visit today, we recorded the following information about you: Fidelia Yanes MA 09/22/2024 11:32 AM Signed Scan on 09/21/2024 1:47 PM by Provider, ExternalHOSSEIN: Chemistry Please review results. MARY CARMEN Kuhn Christopher B, MD 09/22/2024 2:01 PM Signed Labs show stable CKD in stage III range. Recommend low sodium diet <2,000 mg per day, avoidance of NSAIDs, and increased water intake. Cholesterol in good range. Diabetes well controlled with A1c 6.2. Mild anemia which is improved compared to February. Normal UA. Normal urine albumin/creatinine ratio. No changes to regimen. F/u with PCP team as scheduled. Carmelita Orr LPN 09/22/2024 4:34 PM Signed Reviewed results with patient and she voiced understanding. She would like for Dr Amador to advise when he has the opportunity on why he thinks her hemoglobin continues to be low despite taking iron? Please advise upon return to office. JAMIE Mckee Jeffrey A, MD 09/26/2024 2:52 PM Signed Let patient know that even though she is taking iron her iron numbers are on the lower end of normal and her Iron Saturation is low. I would advise her to change her Iron to every other day and take it along with 500 mg of Vit C to improve absorption. Some people do better with every other day dosing for absorption. Also her chronic kidney disease and other chronic health issues will affect her hemoglobin level as well. Susan Ledezma LPN 09/27/2024 1:34 PM Signed Phoned patient left message to return call and ask to speak to a nurse. Angelique Grimes RN 09/27/2024 1:45 PM Signed Patient notified of provider's instructions. Patient verbalizes understanding. Angelique Grimes RN Allergies As of Date: 09/22/2024 Noted Allergy Reaction BEES 01/05/2014 10 - Anaphylaxis NAMENDA (MEMANTINE) 09/14/2024 14 - Other: See Comments Comments: High BP, headache, low BS and nausea LIPITOR (ATORVASTATIN CALCIUM) 01/08/2016 17 - Myalgia PHENERGAN (PROMETHAZINE HCL) 01/25/2013 8 - GI Upset PRAVASTATIN 12/17/2017 17 - Myalgia [id number] REDUCTASE INHIBIT*12/29/2017 17 - Myalgia TRAZODONE 07/14/2018 14 - Other: See Comments Comments: Increased urine frequency Date Reviewed: 09/14/2024 Reviewed by: Magan Amador MD - Fully Assessed Reason for Visit: Results [95] Order(s):ferrous sulfate (SLOW FE) 137 mg (45 mg iron) TbERTake 1 tablet by mouth every other day.Disp: Rfl: ascorbic acid, vitamin C, (VITAMIN C) 500 mg tabletTake 1 tablet by mouth every other day.Disp: Rfl: Prescriptions as of 09/27/2024 - ferrous sulfate (SLOW FE) 137 mg (45 mg iron) TbER Take 1 tablet by mouth every other day. - ascorbic acid, vitamin C, (VITAMIN C) 500 mg tablet Take 1 tablet by mouth every other day. - atorvastatin (LIPITOR) 80 mg tablet Take 1 tablet by mouth daily at bedtime. For cholesterol. - dilTIAZem CD (CARTIA XT) 180 mg 24 hr capsule Take 1 capsule by mouth once daily. - ezetimibe (ZETIA) 10 mg tablet Take 1 tablet by mouth once daily. - mirtazapine (REMERON) 30 mg tablet Take 1 tablet by mouth daily at bedtime. - rivastigmine (EXELON) 4.6 mg/24 hour patch Apply 1 Patch as directed once daily. Per Neuro: Dr. Eldridge - scopolamine (TRANSDERM-SCOP) patch 1.5 mg/72 hr (delivers 1 mg over 3 days) Apply 1 Patch as directed every 72 hours. Per Gastro: Dr. Brian - gabapentin (NEURONTIN) 100 mg capsule Taken prn per gastro. Dr. Brian - pantoprazole DR (PROTONIX) 40 mg tablet Take 1 tablet by mouth two times a day. - Fenofibrate (LOFIBRA) 54 mg tablet Take 1 tablet by mouth once daily. - pioglitazone (ACTOS) 30 mg tablet Take 1 tablet by mouth once daily. - buPROPion SR (WELLBUTRIN SR) 150 mg 12 hr tablet Take 1 tablet by mouth once daily for 7 days, THEN 1 tablet two times a day. - Magnesium Oxide 500 mg magnesium tab Take 1 tablet by mouth two times a day. - EPINEPHrine (EPIPEN 2-ESTEFANIA) 0.3 mg/0.3 mL auto-injector Inject 0.3 mL intramuscularly as needed. - sucralfate (CARAFATE) 1 gram tablet Take 1 tablet by mouth three times a day as needed. - Lancets lancets Test blood sugar(s) 1 times daily. Dx: Other DM Code E11.9, Insulin: No - cyanocobalamin (VITAMIN B-12) 500 mcg tablet Take 500 mcg by mouth twice daily. Take 2 tablets daily - mometasone (NASONEX) 50 mcg/actuation nasal spray Mometasone Furoate [Nasonex] 2 SPRAY NASAL DAILY PRN For Cold Symptons December 30, 2017 Active - nitroglycerin sublingual (NITROSTAT) 0.4 mg SL tablet Dissolve 1 tablet under the tongue every 5 minutes as needed for chest pain. - blood sugar diagnostic (BLOOD GLUCOSE TEST) test strip Test blood sugar(s) 1 times daily. Dx: E11.9 Insulin: No - cholecalciferol, vitamin D3, (VITAMIN D3 ORAL) Take by mouth once era (more content not included)... Normal [facility] CBC AUTO DIFF (REFLEX MANUAL )on 09-21-2024 BASOPHIL # 0.00 x10 3/uL Normal 0.0-0.2 [facility] Comment on above: Performed By: #### C BCAD #### [facility] [address] [address] BASOPHIL % 0.3 % Normal 0.0-1.5 [facility] Comment on above: Performed By: #### C BCAD #### [facility] [address] [address] EOSINOPHIL % 3.1 % Normal 0.0-10.0 [facility] Comment on above: Performed By: #### C BCAD #### [facility] [address] [address] LYMPHOCYTE # 1.40 x10 3/uL Normal 1.0-4.8 [facility] Comment on above: Performed By: #### C BCAD #### [facility] [address] [address] LYMPHOCYTE % 22.5 % Normal 13.0-47.0 [facility] Comment on above: Performed By: #### C BCAD #### [facility] [address] [address] MEAN LONNIE HGB CONC 33.1 g/dl Normal 31.0-37.0 [facility] Comment on above: Performed By: #### C BCAD #### [facility] [address] [address] MEAN CORPUSCULAR HGB 30.7 pg Normal 26.0-34.0 [facility] Comment on above: Performed By: #### C BCAD #### [facility] [address] [address] MEAN CORPUSCULAR VOLUME 92.7 fl Normal 78-[address] [facility] Comment on above: Performed By: #### C BCAD #### [facility] [address] [address] MEAN PLATELET VOLUME 8.2 fl Normal 7.5-10.7 [facility] Comment on above: Performed By: #### C BCAD #### [facility] [address] [address] MONOCYTE # 0.60 x10 3/uL Normal 0.0-1.0 [facility] Comment on above: Performed By: #### C BCAD #### [facility] [address] [address] MONOCYTE % 8.8 % Normal 0.0-10.0 [facility] Comment on above: Performed By: #### C BCAD #### [facility] [address] [address] NEUT# 4.20 x10 3/uL Normal 1.8-7.7 [facility] Comment on above: Performed By: #### C BCAD #### [facility] [address] [address] NEUTROPHIL % 65.3 % Normal 40.0-80.0 [facility] Comment on above: Performed By: #### C BCAD #### [facility] [address] [address] PLATELET 278 x10 3/uL Normal 150-350 [facility] Comment on above: Performed By: #### C BCAD #### [facility] [address] [address] RED BLOOD CELL COUNT 3.50 x10 6/uL Low 4.00-5.[address] [facility] Comment on above: Performed By: #### C BCAD #### [facility] [address] [address] RED CELL WIDTH 14.3 % Normal 11.5-14.5 [facility] Comment on above: Performed By: #### C BCAD #### [facility] [address] [address] TOTAL EO 0.20 x10 3/uL Normal 0-1.0 [facility] Comment on above: Performed By: #### C BCAD #### [facility] [address] [address] WHITE BLOOD CELL COUNT 6.4 x10 3/uL Normal 4.5-11.0 [facility] Comment on above: Performed By: #### C BCAD #### [facility] [address] [address] COMPREHENSIVE METABOLICon ADJUSTED CALCIUM 9.4 MG/DL Normal [facility] Comment on above: Performed By: #### P ROF, PROFLIPID, FOL, FERR, TIBC, B12, MG #### [facility] [address] [address] Albumin [Mass/Vol] 3.6 g/dL Normal 3.4-5.0 [facility] Comment on above: Performed By: #### P ROF, PROFLIPID, FOL, FERR, TIBC, B12, MG #### [facility] [address] [address] Albumin/Globulin [Mass ratio] 0.9 {ratio} Low 1.1-1.8 [facility] Comment on above: Performed By: #### P ROF, PROFLIPID, FOL, FERR, TIBC, B12, MG #### [facility] [address] [address] ALP [Catalytic activity/Vol] 80 U/L Normal 45-117 [facility] Comment on above: Performed By: #### P ROF, PROFLIPID, FOL, FERR, TIBC, B12, MG #### [facility] [address] [address] ALT [Catalytic activity/Vol] 19 U/L Normal 13-61 [facility] Comment on above: Result Comment: Fals amee depressed or falsely elevated results may occur on samples drawn from patients taking Sulfasalazine and Sulfapyridine. Performed By: #### P ROF, PROFLIPID, FOL, FERR, TIBC, B12, MG #### [facility] [address] [address] Anion gap [Moles/Vol] 6.7 mmol/L Normal 0-16 [facility] Comment on above: Performed By: #### P ROF, PROFLIPID, FOL, FERR, TIBC, B12, MG #### [facility] [address] [address] AST [Catalytic activity/Vol] 19 U/L Normal 15-37 [facility] Comment on above: Result Comment: Fals amee depressed or falsely elevated results may occur on samples drawn from patients taking Sulfasalazine and Sulfapyridine. Performed By: #### P ROF, PROFLIPID, FOL, FERR, TIBC, B12, MG #### [facility] [address] [address] Bilirubin [Mass/Vol] 0.30 mg/dL Normal 0.0-1.0 [facility] Comment on above: Result Comment: Use of this assay is not recommended for patients undergoing treatment with Eltrombopag due to the potential for falsely elevated results. Performed By: #### P ROF, PROFLIPID, FOL, FERR, TIBC, B12, MG #### [facility] [address] [address] Calcium [Mass/Vol] 9.1 mg/dL Normal 8.5-10.1 [facility] Comment on above: Performed By: #### P ROF, PROFLIPID, FOL, FERR, TIBC, B12, MG #### [facility] [address] [address] Chloride [Moles/Vol] 110 mmol/L High 98-107 [facility] Comment on above: Performed By: #### P ROF, PROFLIPID, FOL, FERR, TIBC, B12, MG #### [facility] [address] [address] CO2 [Moles/Vol] 29 mmol/L Normal 21-32 [facility] Comment on above: Result Comment: TCO2 test measures total amount of CO2 in the blood, which occurs mostly in the form of bicarbonate (HCO3). Performed By: #### P ROF, PROFLIPID, FOL, FERR, TIBC, B12, MG #### [facility] [address] [address] Creatinine [Mass/Vol] 1.47 mg/dL High 0.55-1.02 [facility] Comment on above: Performed By: #### P ROF, PROFLIPID, FOL, FERR, TIBC, B12, MG #### [facility] [address] [place] [address] GFR/1.73 sq M.predicted among non-blacks MDRD (S/P/Bld) [Vol rate/Area] 38 mL/min/{1.73_m2} Low >60 [facility] Comment on above: Result Comment: Aver age GFR for 70+ years old = 75 ml/min/1.73 sq.m Chronic Kidney Disease - GFR generally <60 ml/min/1.73 sq.m Kidney Failure - GFR generally <15 ml/min/1.73 sq.m The estimated glomerular filtration rate (eGFR) was calculated using the 2020 CKD-EPI eGFR creatinine equation, which does not include race as a factor. This equation is validated in individuals 18 years of age and older. Accurate estimation of GFR requires stable day-to-day creatinine. Creatinine-based eGFR is less accurate in patients with extremes of muscle mass, restriction of dietary protein, ingestion of creatine, extra-renal metabolism of creatinine, or treatment with medications that affect renal tubular creatinine secretion. The eGFR is normalized to a body surface area of 1.73 square meters. GFR Categories in Chronic Kidney Disease (CKD) GFR GFR (mL/min/1.73 Category: square meters): Interpretation: G1 90 or greater Normal or high* G2 60-89 Mild decrease* G3a 45-59 Mild to moderate decrease G3b 30-44 Moderate to severe decrease G4 15-29 Severe decrease G5 14 or less Kidney failure *In the absence of evidence of kidney damage, neither GFR category G1 nor G2 fulfill the criteria for CKD (Kidney Int Suppl 2013;3:1-150) The new eGFRcr equation has similar overall performance characteristics to older equations. For most patients the previous eGFR result will be similar. However, for some, the values may differ by more than 10% particularly at higher values of eGFRcr and for younger patients. Please go to eGFR calculator/National Kidney Foundation to compare this result with a previously calculated eGFR based on older equations. Performed By: #### P ROF, PROFLIPID, FOL, FERR, TIBC, B12, MG #### [facility] [address] [address] Glucose [Mass/Vol] 106 mg/dL Normal 70-110 [facility] Comment on above: Result Comment: Fals amee depressed or falsely elevated results may occur on samples drawn from patients taking Sulfasalazine and Sulfapyridine. ADA Guidelines for Diabetes: Fasting glucose <100 = Normal fasting glucose. Fasting glucose 100-125 = Impaired fasting glucose, also referred to as pre-diabetes. Fasting glucose >125 = Provisional diagnosis of diabetes. Diagnosis must be confirmed by repeat testing on a different day. Performed By: #### P ROF, PROFLIPID, FOL, FERR, TIBC, B12, MG #### [facility] [address] [address] Potassium [Moles/Vol] 4.7 mmol/L Normal 3.5-5.1 [facility] Comment on above: Performed By: #### P ROF, PROFLIPID, FOL, FERR, TIBC, B12, MG #### [facility] [address] [address] Protein [Mass/Vol] 7.7 g/dL Normal 6.4-8.2 [facility] Comment on above: Performed By: #### P ROF, PROFLIPID, FOL, FERR, TIBC, B12, MG #### [facility] [address] [address] Sodium [Moles/Vol] 141 mmol/L Normal 136-145 [facility] Comment on above: Performed By: #### P ROF, PROFLIPID, FOL, FERR, TIBC, B12, MG #### [facility] [address] [address] Urea nitrogen [Mass/Vol] 26 mg/dL High 7-18 [facility] Comment on above: Performed By: #### P ROF, PROFLIPID, FOL, FERR, TIBC, B12, MG #### [facility] [address] [address] Urea nitrogen/Creatinine [Mass ratio] 17.7 mg/mg Normal 0-30 [facility] Comment on above: Performed By: #### P ROF, PROFLIPID, FOL, FERR, TIBC, B12, MG #### [facility] [address] [address] FERRITINon 09-21-2024 Ferritin [Mass/Vol] 18.0 ng/mL Normal 8.0-252.0 [facility] Comment on above: Performed By: #### P ROF, PROFLIPID, FOL, FERR, TIBC, B12, MG #### [place] [address] FOLATEon 09-21-2024 FOLATE 18.4 ng/mL High 3.1-17.5 [facility] Comment on above: Performed By: #### P ROF, PROFLIPID, FOL, FERR, TIBC, B12, MG #### [place] [address] HEMOGLOBIN A1Con 09-21-2024 Glucose [Mass/Vol] 131 mg/dL Normal [facility] Comment on above: Result Comment: The estimated average glucose was calculated using the ADA equation (28.7 x HBA1c)-46.7 . Performed By: #### V ITD #### [facility] [place] [address] HbA1c (Bld) [Mass fraction] 6.2 % High 3.8-5.6 [facility] Comment on above: Performed By: #### V ITD #### [place] [address] LIPID PANELon 09-21-2024 Cholesterol [Mass/Vol] 124 mg/dL Normal <200 [facility] Comment on above: Performed By: #### P ROF, PROFLIPID, FOL, FERR, TIBC, B12, MG #### [place] [address] Cholesterol in HDL [Mass/Vol] 75.0 mg/dL Normal >40 [facility] Comment on above: Performed By: #### P ROF, PROFLIPID, FOL, FERR, TIBC, B12, MG #### [facility] [address] [address] LDL,CALC 34 Normal SEE COMMENT [facility] Comment on above: Result Comment: The National Cholesterol Education Program's (NCEP) Adult Treatment Panel III (ATPIII) guidelines for lipids are as follows: LDL Cholesterol - Primary Target of Therapy Target value for LDL is based on overall risk of heart disease: <100 MG/DL Is desirable if clinical atherosclerotic disease or diabetes has been diagnosed. <130 MG/DL Is desirable if 2 or more risk factors are present. Total Cholesterol <200 Desirable 200-239 Borderline High >239 High HDL Cholesterol <40 Low >59 Desirable Serum Triglycerides <150 Normal 150-199 Borderline High 200-499 High >499 Very High The lipid profile should be correlated with the presence of other risk factors for coronary heart disease. Additional information is available at: www.nhlbi.nih.gov/guidelines/cholesterol/index.htm. Performed By: #### P ROF, PROFLIPID, FOL, FERR, TIBC, B12, MG #### [facility] [address] [address] Triglyceride [Mass/Vol] 76 mg/dL Normal <[address] [facility] Comment on above: Performed By: #### P ROF, PROFLIPID, FOL, FERR, TIBC, B12, MG #### [facility] [address] [address] MAGNESIUMon 09-21-2024 Magnesium [Mass/Vol] 1.7 mg/dL Normal 1.6-2.6 [facility] Comment on above: Performed By: #### P ROF, PROFLIPID, FOL, FERR, TIBC, B12, MG #### [facility] [address] [address] MALB, UR RANon 09-21-2024 DEAN OF MEN, UR 66 mg/dL Normal [facility] Comment on above: Performed By: #### V ITD #### [place] [address] MALB, UR 12.7 mg/L Normal [facility] Comment on above: Performed By: #### V ITD #### [place] [address] MALB/DEAN OF MEN RATIO 19 mg/g DEAN OF MEN Normal <30 [facility] Comment on above: Performed By: #### V ITD #### [place] [address] TIBCon 09-21-2024 % IRON SATURATION 13 % Low 20-55 [facility] Comment on above: Performed By: #### P ROF, PROFLIPID, FOL, FERR, TIBC, B12, MG #### [place] [address] FE 57 MCG/DL Normal 35-150 [facility] Comment on above: Performed By: #### P ROF, PROFLIPID, FOL, FERR, TIBC, B12, MG #### [place] [address] TIBC 454 High 250-450 [facility] Comment on above: Performed By: #### P ROF, PROFLIPID, FOL, FERR, TIBC, B12, MG #### [place] [address] URINALYSIS WITH MICROSCOPICo n 09-21-2024 Appearance (U) CLEAR Normal CLEAR [facility] Comment on above: Performed By: #### P ROF, PROFLIPID, FOL, FERR, TIBC, B12, MG #### [place] [address] Color (U) YELLOW Normal YELLOW [facility] Comment on above: Performed By: #### P ROF, PROFLIPID, FOL, FERR, TIBC, B12, MG #### [facility] [address] [address] Glucose Ql (U) Negative Normal NEG [facility] Comment on above: Performed By: #### P ROF, PROFLIPID, FOL, FERR, TIBC, B12, MG #### [facility] [address] [address] Nitrite Ql (U) Negative Normal NEG [facility] Comment on above: Performed By: #### P ROF, PROFLIPID, FOL, FERR, TIBC, B12, MG #### [facility] [address] [address] pH (U) 5.0 [pH] Normal 4.6-8.0 [facility] Comment on above: Performed By: #### P ROF, PROFLIPID, FOL, FERR, TIBC, B12, MG #### [address] [address] Protein Ql (U) Negative Normal NEG [facility] Comment on above: Performed By: #### P ROF, PROFLIPID, FOL, FERR, TIBC, B12, MG #### [address] [address] Specific gravity (U) [Rel density] 1.013 Normal 1.002-1.030 [facility] Comment on above: Performed By: #### P ROF, PROFLIPID, FOL, FERR, TIBC, B12, MG #### [facility] [address] [address] URINE ASCORBIC ACID Negative Normal NEG [facility] Comment on above: Performed By: #### P ROF, PROFLIPID, FOL, FERR, TIBC, B12, MG #### [facility] [address] [address] URINE BILE Negative Normal NEG [facility] Comment on above: Performed By: #### P ROF, PROFLIPID, FOL, FERR, TIBC, B12, MG #### [facility] [address] [place] [address] URINE HEMOGLOBIN Negative Normal NEG [facility] Comment on above: Performed By: #### P ROF, PROFLIPID, FOL, FERR, TIBC, B12, MG #### [facility] [address] [address] URINE KETONE Negative Normal NEG [facility] Comment on above: Performed By: #### P ROF, PROFLIPID, FOL, FERR, TIBC, B12, MG #### [address] [address] URINE LEUKOCYTES Negative Normal NEG [facility] Comment on above: Performed By: #### P ROF, PROFLIPID, FOL, FERR, TIBC, B12, MG #### [facility] [address] [address] URINE RED BLOOD CELLS 0-2 Normal NEG [facility] Comment on above: Performed By: #### P ROF, PROFLIPID, FOL, FERR, TIBC, B12, MG #### [address] [address] URINE SQUAMOUS EPITHELIAL 0-5 Abnormal NEG [facility] Comment on above: Performed By: #### P ROF, PROFLIPID, FOL, FERR, TIBC, B12, MG #### [address] [address] URINE WBC 0-5 Normal NEG [facility] Comment on above: Performed By: #### P ROF, PROFLIPID, FOL, FERR, TIBC, B12, MG #### [facility] [address] [address] Urobilinogen (U) [Mass/Vol] Negative Normal <2.0 [facility] Comment on above: Performed By: #### P ROF, PROFLIPID, FOL, FERR, TIBC, B12, MG #### [facility] [address] [address] VITAMIN B12on 09-21-2024 Cobalamin (Vitamin B12) [Mass/Vol] 918 pg/mL Normal 193-986 [facility] Comment on above: Performed By: #### P ROF, PROFLIPID, FOL, FERR, TIBC, B12, MG #### [facility] [address] [address] CNOVon 09-14-2024 CNOV Office Visit (FAMPWS ) TY YU ([id number]) 1955 F NFR Date Time Provider Department 09/14/24 2:00 PM [facility]AN AMAD[facility] During your visit today, we recorded the following information about you: Pulse Respiration Blood pressure Weight 76/minute 16/minute 130/70 72.6 kg Height 1.638 m Magan Amador MD 09/14/2024 8:30 PM Signed Ty Keeley Luis Eduardo is a 69 year old female here for a Medicare wellness visit. Medicare Health Risk Assessment General Health Good Exercise: Minutes/Day none Exercise: Days/Week 0 days Alcohol: Daily Use Never Alcohol: Drinks/Day Patient does not drink Alcohol: 6 or more drinks Never Feel off balance Yes (did see eye doctor and have new glasses coming) Concerns: Teeth/Dentures no Concerns: Sexual function no Troubled by feelings Irritable; Lonely; Isolated Frequency: Eating healthy diet Not at all ADLs requiring help None of the above Safety precautions in home/vehicle No Smoke, vape, chews tobacco Yes, and I might quit Difficulty hearing No Difficulty seeing No Current Providers Specialists: I have reviewed specialist-related care of the patient in the medical record. Current care team: Patient Care Team: Magan Amador MD as PCP - General (Family Medicine) Marjan Vergara APRN.CNP as Nuclear Reactor Operator (Family Medicine) Heaven Garg PA-C as Nuclear Reactor Operator (Family Medicine) [facility]: Dr. Mayfield: renal Optho Dr. Eldridge: Neuro Dr. Brian Medical/Family history review Reviewed and updated problem list, medical/surgical/famil y/social history, medications, and allergies. Opioid use review Opioid Medications (last 90 days) No data to display Anxiety/Depression screening PHQ-2 Score: 0 (Lower risk for depression) Recommendation: no further intervention at this time Cognitive screening Cognitive screening reviewed and Patient has known cognitive impairment. Functional Observation Was the patient's Timed Up AND Go test unsteady or >= 12 seconds? No Advance Care Planning Patient did not wish or was not able to name a surrogate decision maker or provide an advance care plan Measurements BP 130/70 Pulse 76 Resp 16 Ht 163.8 cm (5' 4.5) Wt 72.6 kg (160 lb) LMP 05/22/2006 BMI 27.04 kg/m? Vision Screening: Follows with optometry/ophthalmolog y Assessment/Plan Medicare annual wellness visit, subsequent (Z00.00) - Counseled on healthy diet and regular exercise - Fall avoidance information provided - Personalized prevention plan provided See HPI Chief Complaint Patient presents with: Medicare Wellness Exam HPI Ty Yu is a 69 year old female who presents here today for Chronic Medical Conditions. and Medicare Annual Visit. Patient with hx of CAD, HTN, hyperlipidemia, a. Fib, CKD, DM2, iron def anemia, schatzki's ring, dementia, depression, carotid stenosis, and those as below. Ref Range AND Units 6 mo ago (03/09/24) 1 yr ago (09/08/23) 1 yr ago (05/28/23) 1 yr ago (11/11/22) 2 yr ago (08/12/22) 2 yr ago (05/08/22) 3 yr ago (08/02/21) Hemoglobin A1C 4.3 - 5.6 % 6.5 High 6.4 High CM 6.2 Abnormal R 6.3 High CM 6.6 High CM 6.4 High CM 6. Patient sees Ophthalmology last visit 03/2024 Past medical history, appointments, medications, allergies reviewed. Previous Medical History PAST MEDICAL HISTORY Diagnosis Date Age-related osteoporosis without current pathological fracture 06/01/2020 Anxiety 07/05/2013 Asthma diagnosed in childhood Urias's palsy Bilateral carotid artery disease (HCC) 12/15/2017 US 11/2017: 20-40% on right and 40-60% on left. Bilateral carotid artery stenosis 02/12/2021 US 11/2017: 20-40% on right and 40-60% on left. Bursitis of right hip 04/01/2013 Cataract 09/14/2021 Dr. Joaquín [facility] Chicken pox as a child Chronic midline low back pain without sciatica 08/02/[address] (HCC) 06/01/2020 Placed 2019 after colectomy due to perforated diverticulitis. 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 07/09/[address] Cunningham, stent to LAD Current moderate episode of major depressive disorder without prior episode (HCC) 07/14/2018 Current use of proton pump inhibitor 06/26/2017 Mg checked 06/2017 Diverticulosis 11/16/2013 Encounter for Medicare annual wellness exam 01/15/2021 Medical B eligibilty date 05/23/19 Date of last exam n/a Essential hypertension Ex-smoker 10/19/2014 Started at age 14 smoked up to 1 PPD. As of 12/2015 1/2 PPD or less. Quit 08/2019 Fibromyalgia 11/17/2013 Foot callus 06/01/2020 Gastroesophageal reflux disease without esophagitis 01/08/2016 Glaucoma suspect of both eyes 09/14/2021 Dr. [facility] Hiatal hernia 07/28/2017 Hip arthritis 04/01/[address] Ivy (Ortho) History of shingles 2005 Insomnia 01/08/2016 Iron defi (more content not included)... Normal [facility] DBT Breast - bilateral diagn ostic for implanton 09-14-2024 IMPRESSION: 3 mm skin lesion in the right breast corresponds as palpated and is benign. Further management should be based on clinical assessment. There is no mammographic or sonographic evidence of malignancy. Return to annual screening mammogram is recommended. Annual mammogram will be due in 1 month. BI-RADS Category 2: Benign RISK: Based on the Tyrer-Cuzick (TC) risk assessment model, this patient has a 3.3% lifetime risk of developing breast cancer, meaning they are at average risk for developing breast cancer. However, this is only an estimate based on available history provided on the patient's questionnaire. We encourage all patients to talk with their providers about these results, further recommendations for managing breast health, and appropriate supplemental screening options if the patient has dense breast tissue. Interpreting Radiologist: Monika Samson M.D. Electronically signed on: 09/14/2024 Vending Machine Attendant: NATALIIA Transcribe Date/Time: Sep 14 2024 10:50A Dictated by: MONIKA SAMSON MD This examination was interpreted and the report reviewed and electronically signed by: MONIKA SAMSON MD on Sep 14 2024 12:47PM [facility] DIVISION OF RADIOLOGY * * *Final Report* * * DATE OF EXAM: Sep 14 2024 11:13AM [facility] 0627 - [facility] DIAG W NADIA GERARD / PROCEDURE REASON: Breast skin changes * * * * Physician Interpretation * * * * RESULT: [place] [address] #[id number] - [facility] US BREAST LTD RT #[id number] - [facility] DIAG W NADIA GERARD HISTORY: 69 year-old patient seen for diagnostic evaluation of a palpable abnormality in the right breast. COMPARISON STUDIES: The present examination has been compared to prior imaging studies dated 07/15/2018 (ultrasound), 07/15/2018 (mammogram), 05/23/2020 (ultrasound), 05/23/2020 (mammogram) and 10/10/2023 (mammogram). MAMMOGRAM TECHNIQUE: The study was acquired using full field digital technology and interpreted from soft copy. MAMMOGRAM FINDINGS: There are scattered areas of fibroglandular density. Bilateral biopsy clips are noted. No suspicious masses, calcifications or other abnormalities are seen in either breast. ULTRASOUND TECHNIQUE: Targeted ultrasound of the indicated area was performed. Duval scale images were saved. ULTRASOUND FINDINGS: There is an oval lesion measuring 3 mm. in the right breast at 11 o'clock, in the skin of the areola, 1 cm from the nipple. Internal echotexture is hypoechoic. This correlates is palpated. Differential considerations include sebaceous cyst or small cutaneous abscess. There are no suspicious findings in the imaged area. DIVISION OF RADIOLOGY Provider, [facility] - 09/14/2024 * * *Final Report* * * DATE OF EXAM: Sep 14 2024 11:13AM [facility] 0627 - [facility] DIAG W NADIA GERARD / PROCEDURE REASON: Breast skin changes * * * * Physician Interpretation * * * * RESULT: [facility] [address] [place] [address] #[id number] - [facility] US BREAST LTD RT #[id number] - [facility] NELSON Barrios NADIA GERARD HISTORY: 69 year-old patient seen for diagnostic evaluation of a palpable abnormality in the right breast. COMPARISON STUDIES: The present examination has been compared to prior imaging studies dated 07/15/2018 (ultrasound), 07/15/2018 (mammogram), 05/23/2020 (ultrasound), 05/23/2020 (mammogram) and 10/10/2023 (mammogram). MAMMOGRAM TECHNIQUE: The study was acquired using full field digital technology and interpreted from soft copy. MAMMOGRAM FINDINGS: There are scattered areas of fibroglandular density. Bilateral biopsy clips are noted. No suspicious masses, calcifications or other abnormalities are seen in either breast. ULTRASOUND TECHNIQUE: Targeted ultrasound of the indicated area was performed. Duval scale images were saved. ULTRASOUND FINDINGS: There is an oval lesion measuring 3 mm. in the right breast at 11 o'clock, in the skin of the areola, 1 cm from the nipple. Internal echotexture is hypoechoic. This correlates is palpated. Differential considerations include sebaceous cyst or small cutaneous abscess. There are no suspicious findings in the imaged area. IMPRESSION IMPRESSION: 3 mm skin lesion in the right breast corresponds as palpated and is benign. Further management should be based on clinical assessment. There is no mammographic or sonographic evidence of malignancy. Return to annual screening mammogram is recommended. Annual mammogram will be due in 1 month. BI-RADS Category 2: Benign RISK: Based on the Tyrer-Cuzick (TC) risk assessment model, this patient has a 3.3% lifetime risk of developing breast cancer, meaning they are at average risk for developing breast cancer. However, this is only an estimate based on available history provided on the patient's questionnaire. We encourage all patients to talk with their providers about these results, further recommendations for managing breast health, and appropriate supplemental screening options if the patient has dense breast tissue. Interpreting Radiologist: Monika Samson M.D. Electronically signed on: 09/14/2024 Vending Machine Attendant: NATALIIA Transcribe Date/Time: Sep 14 2024 10:50A Dictated by: MONIKA SAMSON MD This examination was interpreted and the report reviewed and electronically signed by: MONIKA SAMSON MD on Sep 14 2024 12:47PM EST [facility] DIAG W NADIA BILon 2024 [facility] DIAG W NADIA GERARD * * *Final Report* * * DATE OF EXAM: Sep 14 2024 11:13AM [facility] 0627 - [facility] DIAG W NADIA GERARD / PROCEDURE REASON: Breast skin changes * * * * Physician Interpretation * * * * RESULT: [place] [address] [place] [address] #[id number] - [facility] US BREAST LTD RT #[id number] - [facility] DIAG W NADIA GERARD HISTORY: 69 year-old patient seen for diagnostic evaluation of a palpable abnormality in the right breast. COMPARISON STUDIES: The present examination has been compared to prior imaging studies dated 07/15/2018 (ultrasound), 07/15/2018 (mammogram), 05/23/2020 (ultrasound), 05/23/2020 (mammogram) and 10/10/2023 (mammogram). MAMMOGRAM TECHNIQUE: The study was acquired using full field digital technology and interpreted from soft copy. MAMMOGRAM FINDINGS: There are scattered areas of fibroglandular density. Bilateral biopsy clips are noted. No suspicious masses, calcifications or other abnormalities are seen in either breast. ULTRASOUND TECHNIQUE: Targeted ultrasound of the indicated area was performed. Duval scale images were saved. ULTRASOUND FINDINGS: There is an oval lesion measuring 3 mm. in the right breast at 11 o'clock, in the skin of the areola, 1 cm from the nipple. Internal echotexture is hypoechoic. This correlates is palpated. Differential considerations include sebaceous cyst or small cutaneous abscess. There are no suspicious findings in the imaged area. IMPRESSION: 3 mm skin lesion in the right breast corresponds as palpated and is benign. Further management should be based on clinical assessment. There is no mammographic or sonographic evidence of malignancy. Return to annual screening mammogram is recommended. Annual mammogram will be due in 1 month. BI-RADS Category 2: Benign RISK: Based on the Tyrer-Cuzick (TC) risk assessment model, this patient has a 3.3% lifetime risk of developing breast cancer, meaning they are at average risk for developing breast cancer. However, this is only an estimate based on available history provided on the patient's questionnaire. We encourage all patients to talk with their providers about these results, further recommendations for managing breast health, and appropriate supplemental screening options if the patient has dense breast tissue. Interpreting Radiologist: Monika Samson M.D. Electronically signed on: 09/14/2024 Vending Machine Attendant: NATALIIA Transcribe Date/Time: Sep 14 2024 10:50A Dictated by: MONIKA SAMSON MD This examination was interpreted and the report reviewed and electronically signed by: MONIKA SAMSON MD on Sep 14 2024 12:47PM EST [id number] Normal [facility] US BREAST LTD RTon 09-14 [facility] US BREAST LTD RT * * *Final Report* * * DATE OF EXAM: Sep 14 2024 11:54AM [facility] 0594 - [facility] [employer] BREAST LTD RT / PROCEDURE REASON: Breast skin changes * * * * Physician Interpretation * * * * [place] [address] #[id number] - [facility] US BREAST LTD RT #[id number] - [facility] NELSON GEE HISTORY: 69 year-old patient seen for diagnostic evaluation of a palpable abnormality in the right breast. COMPARISON STUDIES: The present examination has been compared to prior imaging studies dated 07/15/2018 (ultrasound), 07/15/2018 (mammogram), 05/23/2020 (ultrasound), 05/23/2020 (mammogram) and 10/10/2023 (mammogram). MAMMOGRAM TECHNIQUE: The study was acquired using full field digital technology and interpreted from soft copy. MAMMOGRAM FINDINGS: There are scattered areas of fibroglandular density. Bilateral biopsy clips are noted. No suspicious masses, calcifications or other abnormalities are seen in either breast. ULTRASOUND TECHNIQUE: Targeted ultrasound of the indicated area was performed. Duval scale images were saved. ULTRASOUND FINDINGS: There is an oval lesion measuring 3 mm. in the right breast at 11 o'clock, in the skin of the areola, 1 cm from the nipple. Internal echotexture is hypoechoic. This correlates is palpated. Differential considerations include sebaceous cyst or small cutaneous abscess. There are no suspicious findings in the imaged area. IMPRESSION: 3 mm skin lesion in the right breast corresponds as palpated and is benign. Further management should be based on clinical assessment. There is no mammographic or sonographic evidence of malignancy. Return to annual screening mammogram is recommended. Annual mammogram will be due in 1 month. BI-RADS Category 2: Benign RISK: Based on the Tyrer-Cuzick (TC) risk assessment model, this patient has a 3.3% lifetime risk of developing breast cancer, meaning they are at average risk for developing breast cancer. However, this is only an estimate based on available history provided on the patient's questionnaire. We encourage all patients to talk with their providers about these results, further recommendations for managing breast health, and appropriate supplemental screening options if the patient has dense breast tissue. Interpreting Radiologist: Monika Samson M.D. Electronically signed on: 09/14/2024 Vending Machine Attendant: NATALIIA Transcribe Date/Time: Sep 14 2024 11:42A Dictated by : MONIKA SAMSON MD This examination was interpreted and the report reviewed and electronically signed by: MONIKA SAMSON MD on Sep 14 2024 12:47PM EST [id number] Normal [facility] No Panel InformationOrdered By: Psychiatric Provider on 09-14-2024 [facility] No Panel Informationon 09-14 Radiology Study observation (narrative) [facility] US Breast - right limitedon 09-14-2024 IMPRESSION: 3 mm skin lesion in the right breast corresponds as palpated and is benign. Further management should be based on clinical assessment. There is no mammographic or sonographic evidence of malignancy. Return to annual screening mammogram is recommended. Annual mammogram will be due in 1 month. BI-RADS Category 2: Benign RISK: Based on the Tyrer-Cuzick (TC) risk assessment model, this patient has a 3.3% lifetime risk of developing breast cancer, meaning they are at average risk for developing breast cancer. However, this is only an estimate based on available history provided on the patient's questionnaire. We encourage all patients to talk with their providers about these results, further recommendations for managing breast health, and appropriate supplemental screening options if the patient has dense breast tissue. Interpreting Radiologist: Monika Samson M.D. Electronically signed on: 09/14/2024 Vending Machine Attendant: NATALIIA Larsenribe Date/Time: Sep 14 2024 11:42A Dictated by : MONIKA SAMSON MD This examination was interpreted and the report reviewed and electronically signed by: MONIKA SAMSON MD on Sep 14 2024 12:47PM [facility] DIVISION OF RADIOLOGY * * *Final Report* * * DATE OF EXAM: Sep 14 2024 11:54AM [facility] 0594 - [facility] [employer] BREAST LTD RT / PROCEDURE REASON: Breast skin changes * * * * Physician Interpretation * * * * [place] [address] #[id number] - [facility] [employer] BREAST LTD RT #[id number] - [facility] NELSON ZUNIGA GERARD HISTORY: 69 year-old patient seen for diagnostic evaluation of a palpable abnormality in the right breast. COMPARISON STUDIES: The present examination has been compared to prior imaging studies dated 07/15/2018 (ultrasound), 07/15/2018 (mammogram), 05/23/2020 (ultrasound), 05/23/2020 (mammogram) and 10/10/2023 (mammogram). MAMMOGRAM TECHNIQUE: The study was acquired using full field digital technology and interpreted from soft copy. MAMMOGRAM FINDINGS: There are scattered areas of fibroglandular density. Bilateral biopsy clips are noted. No suspicious masses, calcifications or other abnormalities are seen in either breast. ULTRASOUND TECHNIQUE: Targeted ultrasound of the indicated area was performed. Duval scale images were saved. ULTRASOUND FINDINGS: There is an oval lesion measuring 3 mm. in the right breast at 11 o'clock, in the skin of the areola, 1 cm from the nipple. Internal echotexture is hypoechoic. This correlates is palpated. Differential considerations include sebaceous cyst or small cutaneous abscess. There are no suspicious findings in the imaged area. DIVISION OF RADIOLOGY Provider, [facility] - 09/14/2024 * * *Final Report* * * DATE OF EXAM: Sep 14 2024 11:54AM [facility] 0594 - [facility] [employer] RT / PROCEDURE REASON: Breast skin changes * * * * Physician Interpretation * * * * [place] [address] #[id number] - [facility] [employer] BREAST LTD RT #[id number] - [facility] NELSON GEE HISTORY: 69 year-old patient seen for diagnostic evaluation of a palpable abnormality in the right breast. COMPARISON STUDIES: The present examination has been compared to prior imaging studies dated 07/15/2018 (ultrasound), 07/15/2018 (mammogram), 05/23/2020 (ultrasound), 05/23/2020 (mammogram) and 10/10/2023 (mammogram). MAMMOGRAM TECHNIQUE: The study was acquired using full field digital technology and interpreted from soft copy. MAMMOGRAM FINDINGS: There are scattered areas of fibroglandular density. Bilateral biopsy clips are noted. No suspicious masses, calcifications or other abnormalities are seen in either breast. ULTRASOUND TECHNIQUE: Targeted ultrasound of the indicated area was performed. Duval scale images were saved. ULTRASOUND FINDINGS: There is an oval lesion measuring 3 mm. in the right breast at 11 o'clock, in the skin of the areola, 1 cm from the nipple. Internal echotexture is hypoechoic. This correlates is palpated. Differential considerations include sebaceous cyst or small cutaneous abscess. There are no suspicious findings in the imaged area. IMPRESSION IMPRESSION: 3 mm skin lesion in the right breast corresponds as palpated and is benign. Further management should be based on clinical assessment. There is no mammographic or sonographic evidence of malignancy. Return to annual screening mammogram is recommended. Annual mammogram will be due in 1 month. BI-RADS Category 2: Benign RISK: Based on the Tyrer-Cuzick (TC) risk assessment model, this patient has a 3.3% lifetime risk of developing breast cancer, meaning they are at average risk for developing breast cancer. However, this is only an estimate based on available history provided on the patient's questionnaire. We encourage all patients to talk with their providers about these results, further recommendations for managing breast health, and appropriate supplemental screening options if the patient has dense breast tissue. Interpreting Radiologist: Monika Samson M.D. Electronically signed on: 09/14/2024 Vending Machine Attendant: NATALIIA Transcribe Date/Time: Sep 14 2024 11:42A Dictated by : MONIKA SAMSON MD This examination was interpreted and the report reviewed and electronically signed by: MONIKA SAMSON MD on Sep 14 2024 12:47PM [facility] PTH INTACTon 08-28-2024 CALCIUM FOR PTH 8.7 mg/dL Low 8.8-10.2 [facility] Comment on above: Result Comment: Perf ormed By: [employer] [address] [place] [id number] [employer] Diameter: Abhilash Barger MD, PhD CLIA Number: [id number] Performed By: #### V ITD #### [facility] [address] [address] INTACT PARATHYROID HORMONE 45 pg/mL Normal 15-65 [facility] Comment on above: Performed By: #### V ITD #### [facility] [address] [address] VITAMIN D, 25 HYDROXYon VITAMIN D, 25 HYDROXY 49.68 ng/mL Normal 30-100 [facility] Comment on above: Performed By: #### V ITD #### [facility] [address] [address] CBC (NO WBC DIFFERENTIAL)on 08-25-2024 Hematocrit (Bld) [Volume fraction] 29.7 % Low 36-46 [facility] Comment on above: Performed By: #### P ROF, PROFLIPID, FOL, FERR, TIBC, B12, MG #### [facility] [address] [address] Hemoglobin (Bld) [Mass/Vol] 9.9 g/dL Low 12.0-16.0 [facility] Comment on above: Performed By: #### P ROF, PROFLIPID, FOL, FERR, TIBC, B12, MG #### [facility] [address] [address] MCV (RBC) [Entitic vol] 92.1 fL Normal 78-102 T [facility] Comment on above: Performed By: #### P ROF, PROFLIPID, FOL, FERR, TIBC, B12, MG #### [facility] [address] [address] MEAN LONNIE HGB CONC 33.2 g/dl Normal 31.0-37.0 [facility] Comment on above: Performed By: #### P ROF, PROFLIPID, FOL, FERR, TIBC, B12, MG #### [facility] [address] [address] MEAN CORPUSCULAR HGB 30.6 pg Normal 26.0-34.0 [facility] Comment on above: Performed By: #### P ROF, PROFLIPID, FOL, FERR, TIBC, B12, MG #### [facility] [address] [address] PLATELET 346 x10 3/uL Normal 150-350 [facility] Comment on above: Performed By: #### P ROF, PROFLIPID, FOL, FERR, TIBC, B12, MG #### [facility] [address] [address] Platelet mean volume (Bld) [Entitic vol] 8.7 fL Normal 7.5-10.7 [facility] Comment on above: Performed By: #### P ROF, PROFLIPID, FOL, FERR, TIBC, B12, MG #### [facility] [address] [address] RED BLOOD CELL COUNT 3.23 x10 6/uL Low 4.00-5.[address] [facility] Comment on above: Performed By: #### P ROF, PROFLIPID, FOL, FERR, TIBC, B12, MG #### [facility] [address] [address] WHITE BLOOD CELL COUNT 8.3 x10 3/uL Normal 4.5-11.0 [facility] Comment on above: Performed By: #### P ROF, PROFLIPID, FOL, FERR, TIBC, B12, MG #### [facility] [address] [address] RENAL FUNCTION PANELon 08-25 ADJUSTED CALCIUM 9.2 MG/DL Normal [facility] Comment on above: Performed By: #### V ITD #### [facility] [address] [address] Albumin [Mass/Vol] 3.5 g/dL Normal 3.4-5.0 [facility] Comment on above: Performed By: #### V ITD #### [facility] [address] [address] Calcium [Mass/Vol] 8.8 mg/dL Normal 8.5-10.1 [facility] Comment on above: Performed By: #### V ITD #### [facility] [address] [address] Chloride [Moles/Vol] 111 mmol/L High 98-107 [facility] Comment on above: Performed By: #### V ITD #### [facility] [address] [address] CO2 [Moles/Vol] 22 mmol/L Normal 21-32 [facility] Comment on above: Result Comment: TCO2 test measures total amount of CO2 in the blood, which occurs mostly in the form of bicarbonate (HCO3). Performed By: #### V ITD #### [facility] [address] [address] Creatinine [Mass/Vol] 1.41 mg/dL High 0.55-1.02 [facility] Comment on above: Performed By: #### V ITD #### [facility] [address] [address] GFR/1.73 sq M.predicted among non-blacks MDRD (S/P/Bld) [Vol rate/Area] 40 mL/min/{1.73_m2} Low >60 [facility] Comment on above: Result Comment: Aver age GFR for 70+ years old = 75 ml/min/1.73 sq.m Chronic Kidney Disease - GFR generally <60 ml/min/1.73 sq.m Kidney Failure - GFR generally <15 ml/min/1.73 sq.m The estimated glomerular filtration rate (eGFR) was calculated using the 1 CKD-EPI eGFR creatinine equation, which does not include race as a factor. This equation is validated in individuals 18 years of age and older. Accurate estimation of GFR requires stable day-to-day creatinine. Creatinine-based eGFR is less accurate in patients with extremes of muscle mass, restriction of dietary protein, ingestion of creatine, extra-renal metabolism of creatinine, or treatment with medications that affect renal tubular creatinine secretion. The eGFR is normalized to a body surface area of 1.73 square meters. GFR Categories in Chronic Kidney Disease (CKD) GFR GFR (mL/min/1.73 Category: square meters): Interpretation: G1 90 or greater Normal or high* G2 60-89 Mild decrease* G3a 45-59 Mild to moderate decrease G3b 30-44 Moderate to severe decrease G4 15-29 Severe decrease G5 14 or less Kidney failure *In the absence of evidence of kidney damage, neither GFR category G1 nor G2 fulfill the criteria for CKD (Kidney Int Suppl 2013;3:1-150) The new eGFRcr equation has similar overall performance characteristics to older equations. For most patients the previous eGFR result will be similar. However, for some, the values may differ by more than 10% particularly at higher values of eGFRcr and for younger patients. Please go to eGFR calculator/[employer] to compare this result with a previously calculated eGFR based on older equations. Performed By: #### V ITD #### [facility] [address] [address] Glucose [Mass/Vol] 86 mg/dL Normal 70-110 [facility] [place] Comment on above: Result Comment: Fals amee depressed or falsely elevated results may occur on samples drawn from patients taking Sulfasalazine and Sulfapyridine. ADA Guidelines for Diabetes: Fasting glucose <100 = Normal fasting glucose. Fasting glucose 100-125 = Impaired fasting glucose, also referred to as pre-diabetes. Fasting glucose >125 = Provisional diagnosis of diabetes. Diagnosis must be confirmed by repeat testing on a different day. Performed By: #### V ITD #### [facility] [address] [address] INORGANIC PHOSPHOROUS 3.3 MG/DL Normal 2.5-4.9 [facility] Comment on above: Performed By: #### V ITD #### [facility] [address] [address] Potassium [Moles/Vol] 3.9 mmol/L Normal 3.5-5.1 [facility] Comment on above: Performed By: #### V ITD #### [facility] [address] [address] Sodium [Moles/Vol] 140 mmol/L Normal 136-145 [facility] [place] Comment on above: Performed By: #### V ITD #### [facility] [address] [address] Urea nitrogen [Mass/Vol] 24 mg/dL High 7-18 [facility] Comment on above: Performed By: #### V ITD #### [facility] [address] [address] Urea nitrogen/Creatinine [Mass ratio] 17.0 mg/mg Normal 0-30 [facility] Comment on above: Performed By: #### V ITD #### [facility] [address] [address] UR PROTEIN/CREATININE RATIOo n 08-25-2024 DEAN OF MEN, UR 116 mg/dL Normal [facility] Comment on above: Performed By: #### U RPROCRTR #### [facility] [address] [address] Protein Ql (U) 36.4 MG/DL High <11.9 [facility] Comment on above: Performed By: #### U RPROCRTR #### [facility] [address] [address] UR PROTEIN CREATININE RATIO 0.314 High 0.000-0.190 [facility] Comment on above: Performed By: #### U RPROCRTR #### [facility] [place] [id number] Neurology Visit Reporton Neurology Visit Report [facility] [address], [address] [place], [place] [address] OFFICE VISIT Date of Service: 08/24/24 MR#: [id number] Acct: [id number] Name: TY YU Rep #: [id number] : 1955 Provider: Dr. César flores MD Age/Sex: 69/F Location: [facility] [place] Status: Signed HPI HPI Chief Complaint: Details: Interim History: Ty returns for follow-up. She has a history of hypertension, hyperlipidemia, paroxysmal atrial fibrillation, concussion (at age 15 years), coronary artery disease s/p stent placement (2013), colitis/large bowel obstruction s/p colostomy (2019), diet-controlled diabetes mellitus, anxiety and depression. In August 2019, she was hospitalized for abdominal pain, encephalopathy due to sepsis, sigmoid colitis and large bowel obstruction requiring left colectomy and underwent left lower quadrant colostomy in August 2019. Her postoperative course was complicated by atrial fibrillation (treated with cardioversion) and hypokalemia. She had visual hallucinations between 2018 and 2019, following the of her . She also had cognitive difficulty beginning in 2018. She reported forgetting conversations and having poor recall of past events. Her memory difficulty had worsened over time. She is independent in her ADLs though she has limited her driving due to concern about possibly becoming lost. She has a tendency to lose her train of thought. She has accidentally left the oven on once. She reports noting having difficulty finding her car in a parking lot after shopping or finding her table at a restaurant if she is going to the restroom. She lives at home and her son lives nearby to assist her. Head MRIs (August 2019 and July 2020) revealed moderate chronic small vessel ischemic disease and mild diffuse cerebral atrophy; no acute intracranial pathology was identified. 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 It was also reported that poor nutritional intake due to daily vomiting and nausea (subsequently resolved) and disturbed sleep may have also been influencing her cognitive profile. A PET scan on 11/21/2020 was unremarkable. She has noted short term memory difficulty. Donepezil caused nausea. Ondansetron was of benefit for her nausea. Memantine caused nausea. Galantamine caused nausea and was discontinued. Beginning in 2019, she had a mild, fine tremor affecting both hands (right greater than left) that was increased with action and heightened emotions. Her tremor did not generally interfere with her daily activities. Her tremor only interfered with fine motor movements such as threading a needle or painting her nails. She has had headaches since she was in her 20s. Her headaches have generally occurred 1 or 2 days/month. She has had associated photophobia, phonophobia and nausea. Her headaches resolve with acetaminophen. She has had longstanding chronic low back pain that has been exacerbated by increased activity. She has had right leg numbness and tingling since 2022. Cyclobenzaprine 5 mg nightly was not of significant benefit. Tizanidine is of some benefit for her insomnia and low back pain. Lumbar paraspinal muscle trigger point injections have been of benefit for her back pain. She has depression, anxiety and chronic insomnia. Duloxetine was not of benefit. Sertraline was not well-tolerated. Fluoxetine is of benefit. Escitalopram was of initial benefit then lost efficacy. Melatonin was not of significant benefit for her insomnia. Trazodone (caused urinary incontinence) and OTC PM medications (caused leg restlessness) were not well tolerated. She previously attributed much of her insomnia to her restless leg syndrome. Ropinirole (caused nausea) and baclofen 10mg (caused sedation) were not well-tolerated. Vitamin D supplementation has been of some benefit for her lower extremity discomfort. Doxepin 100 mg nightly was not of benefit for her insomnia. She had previously taken clopidogrel for her coronary artery disease, then was switched to aspirin 81mg daily by her rn orthopaedic due to her anemia. She has a history of iron deficiency and B12 deficiency. She takes an OTC iron supplement and has had iron infusions (last in October 2020) for iron deficiency anemia. A vitamin B12 injection in 2020 was not of benefit for her fatigue. She takes an oral B12 supplement. She had a syncopal episode in 2022 while using the bathroom. She did not have tongue biting or postictal confusion. She was hospitalized in December 2022 for renal failure secondary to dehydration. She has seen a forming mill operator regarding decreased oral intake. (more content not included)... Normal [facility] Neurology Visit Reporton Neurology Visit Report [facility] [address], [address] [place] [address] OFFICE VISIT Date of Service: 07/26/24 MR#: [id number] Acct: [id number] Name: TY YU Rep #: [id number] : 1955 Provider: Dr. César flores MD Age/Sex: 69/F Location: [facility] [place]. Status: Signed with Addenda ADDENDUM by Dr. éCsar Partida MD on 08/17/24 at 1615 Addendum Addendum (08/17/2024): The patient reports having daily headaches within recent days. She is concerned that this is a side effect of galantamine ER. Galantamine ER will be discontinued. 08/17/24 1615 Date Céasr Partida MD cc: * Signed HPI [facility] Chief Complaint: Details: Interim History: Ty returns for follow-up. She has a history of hypertension, hyperlipidemia, paroxysmal atrial fibrillation, concussion (at age 15 years), coronary artery disease s/p stent placement (2013), colitis/large bowel obstruction s/p colostomy (2019), diet-controlled diabetes mellitus, anxiety and depression. In August 2019, she was hospitalized for abdominal pain, encephalopathy due to sepsis, sigmoid colitis and large bowel obstruction requiring left colectomy and underwent left lower quadrant colostomy in August 2019. Her postoperative course was complicated by atrial fibrillation (treated with cardioversion) and hypokalemia. She had visual hallucinations between 2018 and 2019, following the of her . She also had cognitive difficulty beginning in 2018. She reported forgetting conversations and having poor recall of past events. Her memory difficulty has worsened over time including further worsening within recent months. She is independent in her ADLs though she has limited her driving due to concern about possibly becoming lost. She has a tendency to lose her train of thought. She is accidentally left the open on once. She reports noting having difficulty finding her car in a parking lot after shopping or finding her table at a restaurant if she is going to the restroom. She lives at home and her son lives nearby to assist her. Head MRIs (August 2019 and July 2020) revealed moderate chronic small vessel ischemic disease and mild diffuse cerebral atrophy; no acute intracranial pathology was identified. 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 It was also reported that poor nutritional intake due to daily vomiting and nausea (subsequently resolved) and disturbed sleep may have also been influencing her cognitive profile. A PET scan on 11/21/2020 was unremarkable. Donepezil caused nausea. Ondansetron was of benefit for her nausea. Memantine oral solution (tablets had been found undissolved in her colostomy bag) and galantamine were initiated however were subsequently discontinued in 2022 by another physician due to her renal insufficiency. She had worsening of her memory following discontinuation galantamine and memantine. Galantamine was reinitiated in the form of galantamine ER 16mg daily in May 2023, however she subsequently discontinued galantamine ER. A retrial of memantine was initiated earlier in 2023 however memantine was discontinued due to a side effect of nausea. She has noted short term memory difficulty. Beginning in 2019, she had a mild, fine tremor affecting both hands (right greater than left) that was increased with action and heightened emotions. Her tremor did not generally interfere with her daily activities. Her tremor only interfered with fine motor movements such as threading a needle or painting her nails. She feels that her tremor has recently worsened. She has had headaches since she was in her 20s. Her headaches have occurred 1 or 2 days/month. She has had associated photophobia, phonophobia and nausea. Her headaches resolve with acetaminophen. She has had longstanding chronic low back pain that has been exacerbated by increased activity. She has had right leg numbness and tingling since 2022. Cyclobenzaprine 5 mg nightly was not of significant benefit. Tizanidine is of some benefit for her insomnia and low back pain. Lumbar paraspinal muscle trigger point injections have been of benefit for her back pain. She has depression, anxiety and chronic insomnia. Duloxetine was not of benefit. Sertraline was not well-tolerated. Fluoxetine is of benefit. Escitalopram was of initial benefit then lost efficacy. Melatonin was not of significant benefit for her insomnia. Trazodone (caused urinary incontinence) and OTC PM medications (caused leg restlessness) were not well tolerated. She previously attributed much (more content not included)... Normal [facility]Y [facility]U ([id number]) 1955 F NFR Date Time Provider Department 07/16/24 BRAIN IVY During your visit today, we recorded the following information about you: Danielle Dawson LPN 07/16/2024 2:02 PM Signed Patient would like to have orders for image guided injection sent to [facility], fax [phone]. Had discussed getting injection closer to home with Dr. Ivy at 07/05/24 office visit. JAMIE Felix Amy M, MA 07/16/2024 4:00 PM Signed Order printed and waiting for physician signature. Maddison Munoz MA 07/19/2024 8:29 AM Signed Order has been signed and faxed to [facility]. Fax confirmation received. Allergies As of Date: 07/16/2024 Noted Allergy Reaction BEES 01/05/2014 10 - Anaphylaxis LIPITOR (ATORVASTATIN CALCIUM) 01/08/2016 17 - Myalgia PHENERGAN (PROMETHAZINE HCL) 01/25/2013 8 - GI Upset PRAVASTATIN 12/17/2017 17 - Myalgia [id number] REDUCTASE INHIBIT*12/29/2017 17 - Myalgia TRAZODONE 07/14/2018 14 - Other: See Comments Comments: Increased urine frequency Date Reviewed: 07/05/2024 Reviewed by: Brain Ivy MD - Fully Assessed Reason for Visit: Orders [681] Prescriptions as of 07/19/2024 - Fenofibrate (LOFIBRA) 54 mg tablet Take 1 tablet by mouth once daily. - pioglitazone (ACTOS) 30 mg tablet Take 1 tablet by mouth once daily. - dilTIAZem CD (CARTIA XT) 180 mg 24 hr capsule Take 1 capsule by mouth once daily. - buPROPion SR (WELLBUTRIN SR) 150 mg 12 hr tablet Take 1 tablet by mouth once daily for 7 days, THEN 1 tablet two times a day. - ezetimibe (ZETIA) 10 mg tablet Take 1 tablet by mouth once daily. - Magnesium Oxide 500 mg magnesium tab Take 1 tablet by mouth two times a day. - mirtazapine (REMERON) 30 mg tablet Take 1 tablet by mouth daily at bedtime. - EPINEPHrine (EPIPEN 2-ESTEFANIA) 0.3 mg/0.3 mL auto-injector Inject 0.3 mL intramuscularly as needed. - atorvastatin (LIPITOR) 80 mg tablet Take 1 tablet by mouth daily at bedtime. For cholesterol. - gabapentin (NEURONTIN) 100 mg capsule Take 100 mg by mouth. Taken prn per gastro - pantoprazole DR (PROTONIX) 40 mg tablet Take 1 tablet by mouth two times a day. - sucralfate (CARAFATE) 1 gram tablet Take 1 tablet by mouth three times a day as needed. - Lancets lancets Test blood sugar(s) 1 times daily. Dx: Other DM Code E11.9, Insulin: No - scopolamine (TRANSDERM-SCOP) patch 1.5 mg/72 hr (delivers 1 mg over 3 days) Apply 1 Patch as directed every 72 hours. - cyanocobalamin (VITAMIN B-12) 500 mcg tablet Take 500 mcg by mouth twice daily. Take 2 tablets daily - mometasone (NASONEX) 50 mcg/actuation nasal spray Mometasone Furoate [Nasonex] 2 SPRAY NASAL DAILY PRN For Cold Symptons December 30, 2017 Active - nitroglycerin sublingual (NITROSTAT) 0.4 mg SL tablet Dissolve 1 tablet under the tongue every 5 minutes as needed for chest pain. - blood sugar diagnostic (BLOOD GLUCOSE TEST) test strip Test blood sugar(s) 1 times daily. Dx: E11.9 Insulin: No - memantine (NAMENDA) 5 mg tablet Take 5 mg by mouth two times a day. - cholecalciferol, vitamin D3, (VITAMIN D3 ORAL) Take by mouth once daily. - Ferrous Sulfate (SLOW FE) 142 mg (45 mg iron) TbER Take 1 tablet by mouth once daily. - aspirin, enteric coated (ADULT LOW DOSE ASPIRIN) 81 mg EC tablet Take 1 tablet by mouth once daily. Meds Comments as of 07/05/2013: Calcium/Zinc tablet Problem List As Of Date 07/16/2024 Noted Resolved Hip arthritis [M16.10] 04/01/2013 Essential hypertension [I10] Mixed hyperlipidemia [E78.2] RLS (restless legs syndrome) [G25.81] SUMMARY [V999.95] 05/04/2013 07/28/2017 Anxiety [F41.9] 07/05/2013 07/19/2019 Diverticulosis [K57.90] 11/16/2013 Fibromyalgia [M79.7] 11/17/2013 Ex-smoker [Z87.891] 10/19/2014 Right hip pain [M25.551] 11/07/2014 07/19/2019 Lumbar degenerative disc disease [M51.369] 12/28/2015 Gastroesophageal reflux disease without esophag*01/08/2016 Insomnia [G47.00] 01/08/2016 Multiple falls [R29.6] 01/08/2016 07/28/2017 Migraine without aura and without status migrai*07/09/2016 Coronary artery disease involving torres martinez alarcon*07/09/2016 Osteoarthritis of multiple joints [M15.9] 09/06/2016 Well adult exam [Z00.00] 06/26/2017 07/19/2019 Encounter for screening for diabetes mellitus [*06/26/2017 07/28/2017 Hiatal hernia [K44.9] 07/28/2017 Type 2 diabetes mellitus without complication, *12/17/2017 Encounter for screening mammogram for breast ca*12/29/2017 07/19/2019 Current moderate episode of major depressive di*07/14/2018 Colon cancer screening [Z12.11] 07/14/2018 07/19/2019 History of shingles [Z86.19] 06/23/2004 Iron deficiency anemia [D50.9] 07/04/2019 Medication management [Z79.899] 06/01/2020 Abnormal thyroid blood test [R79.89] 06/01/2020 Foot callus [L84] 06/01/2020 Age-related osteoporosis with (more content not included)... Normal [facility] CNPNon 07-13-2024 CNPN Telephone (RDXWS) TY YU ([id number]) 1955 F NFR Date Time Provider Department 07/13/24 HEAVEN GARG RDXWS During your visit today, we recorded the following information about you: Kelly Ragsdale, Cooler [employer] Tech 07/13/2024 7:38 AM Signed Could we have a bilateral Diagnostic mammogram order? We can do the pt screening along with her diagnostic mammogram. Thanks a million Heaven Garg PA-C 07/13/2024 7:55 AM Signed Order placed. Allergies As of Date: 07/13/2024 Noted Allergy Reaction BEES 01/05/2014 10 - Anaphylaxis LIPITOR (ATORVASTATIN CALCIUM) 01/08/2016 17 - Myalgia PHENERGAN (PROMETHAZINE HCL) 01/25/2013 8 - GI Upset PRAVASTATIN 12/17/2017 17 - Myalgia [id number] REDUCTASE INHIBIT*12/29/2017 17 - Myalgia TRAZODONE 07/14/2018 14 - Other: See Comments Comments: Increased urine frequency Date Reviewed: 07/05/2024 Reviewed by: Brain Ivy MD - Fully Assessed Reason for Visit: Orders [681] Primary Visit Diagnosis:Breast skin changes [R23.4] Order(s):FILIBERTO DIAGNOSTIC BILATERAL [[id number]] Order #: [id number] FUTURE Prescriptions as of 07/13/2024 - Fenofibrate (LOFIBRA) 54 mg tablet Take 1 tablet by mouth once daily. - pioglitazone (ACTOS) 30 mg tablet Take 1 tablet by mouth once daily. - dilTIAZem CD (CARTIA XT) 180 mg 24 hr capsule Take 1 capsule by mouth once daily. - buPROPion SR (WELLBUTRIN SR) 150 mg 12 hr tablet Take 1 tablet by mouth once daily for 7 days, THEN 1 tablet two times a day. - ezetimibe (ZETIA) 10 mg tablet Take 1 tablet by mouth once daily. - Magnesium Oxide 500 mg magnesium tab Take 1 tablet by mouth two times a day. - mirtazapine (REMERON) 30 mg tablet Take 1 tablet by mouth daily at bedtime. - EPINEPHrine (EPIPEN 2-ESTEFANIA) 0.3 mg/0.3 mL auto-injector Inject 0.3 mL intramuscularly as needed. - atorvastatin (LIPITOR) 80 mg tablet Take 1 tablet by mouth daily at bedtime. For cholesterol. - gabapentin (NEURONTIN) 100 mg capsule Take 100 mg by mouth. Taken prn per gastro - pantoprazole DR (PROTONIX) 40 mg tablet Take 1 tablet by mouth two times a day. - sucralfate (CARAFATE) 1 gram tablet Take 1 tablet by mouth three times a day as needed. - Lancets lancets Test blood sugar(s) 1 times daily. Dx: Other DM Code E11.9, Insulin: No - scopolamine (TRANSDERM-SCOP) patch 1.5 mg/72 hr (delivers 1 mg over 3 days) Apply 1 Patch as directed every 72 hours. - cyanocobalamin (VITAMIN B-12) 500 mcg tablet Take 500 mcg by mouth twice daily. Take 2 tablets daily - mometasone (NASONEX) 50 mcg/actuation nasal spray Mometasone Furoate [Nasonex] 2 SPRAY NASAL DAILY PRN For Cold Symptons December 30, 2017 Active - nitroglycerin sublingual (NITROSTAT) 0.4 mg SL tablet Dissolve 1 tablet under the tongue every 5 minutes as needed for chest pain. - blood sugar diagnostic (BLOOD GLUCOSE TEST) test strip Test blood sugar(s) 1 times daily. Dx: E11.9 Insulin: No - memantine (NAMENDA) 5 mg tablet Take 5 mg by mouth two times a day. - cholecalciferol, vitamin D3, (VITAMIN D3 ORAL) Take by mouth once daily. - Ferrous Sulfate (SLOW FE) 142 mg (45 mg iron) TbER Take 1 tablet by mouth once daily. - aspirin, enteric coated (ADULT LOW DOSE ASPIRIN) 81 mg EC tablet Take 1 tablet by mouth once daily. Meds Comments as of 07/05/2013: Calcium/Zinc tablet Problem List As Of Date 07/13/2024 Noted Resolved Hip arthritis [M16.10] 04/01/2013 Essential hypertension [I10] Mixed hyperlipidemia [E78.2] RLS (restless legs syndrome) [G25.81] SUMMARY [V999.95] 05/04/2013 07/28/2017 Anxiety [F41.9] 07/05/2013 07/19/2019 Diverticulosis [K57.90] 11/16/2013 Fibromyalgia [M79.7] 11/17/2013 Ex-smoker [Z87.891] 10/19/2014 Right hip pain [M25.551] 11/07/2014 07/19/2019 Lumbar degenerative disc disease [M51.369] 12/28/2015 Gastroesophageal reflux disease without esophag*01/08/2016 Insomnia [G47.00] 01/08/2016 Multiple falls [R29.6] 01/08/2016 07/28/2017 Migraine without aura and without status migrai*07/09/2016 Coronary artery disease involving torres martinez alarcon*07/09/2016 Osteoarthritis of multiple joints [M15.9] 09/06/2016 Well adult exam [Z00.00] 06/26/2017 07/19/2019 Encounter for screening for diabetes mellitus [*06/26/2017 07/28/2017 Hiatal hernia [K44.9] 07/28/2017 Type 2 diabetes mellitus without complication, *12/17/2017 Encounter for screening mammogram for breast ca*12/29/2017 07/19/2019 Current moderate episode of major depressive di*07/14/2018 Colon cancer screening [Z12.11] 07/14/2018 07/19/2019 History of shingles [Z86.19] 06/23/2004 Iron deficiency anemia [D50.9] 07/04/2019 Medication management [Z79.899] 06/01/2020 Abnormal thyroid blood test [R79.89] 06/01/2020 Foot callus [L84] 06/01/2020 Age-related osteoporosis without current pathol*06/01/[address] (HCC) [Z93.3] 06/01/2020 Stage 3b chronic kidney disease (HCC) [N18.32] (more content not included)... Normal [facility] CNOVon 07-05-2024 CNOV Office Visit (ORTHWS ) TY YU ([id number]) 1955 F NFR Date Time Provider Department 07/05/24 2:45 PM BRAIN IVY During your visit today, we recorded the following information about you: Brain Ivy MD 07/05/2024 5:24 PM Signed Brain Ivy MD Department of Orthopaedics Orthopaedics [address] [facility] [address] Dept: [phone] Dept July 05, 2024 CHIEF COMPLAINT: Established Patient and Pain of the Right Hip HPI Patient returns with worsening pain in the right hip. It has been bothering her with ambulating but more so in seated position for long periods of time and then later standing. She did have a cortisone injection in the right hip nearly a decade ago. AMB ROOMING INTAKE FLOWSHEET DATA Pain Pain Level: 10 Pain Location: Hip-Right Description: Aching Duration Units: Years Frequency: Continuous Intervention/Comfort measure: Reposition, Relaxation, Medication Patient presents with: Right Hip - Established Patient, Pain Suma Reed LPN ASSESSMENT: M16.11 Primary osteoarthritis of right hip (primary encounter diagnosis) PLAN: Bit of an exacerbation of her underlying osteoarthritis yet with still preserved joint space. My recommendation is for an image guided injection. She does travel from a bit and she would like to try to get that taken care of closer to home. I provided an order for that procedure. Will continue to monitor patient for Primary osteoarthritis of right hip (primary encounter diagnosis), patient to schedule visit as per follow up discussed. OBJECTIVE: Ms. Ty Yu is a pleasant 69 year old in no apparent distress. Gen:LMP 05/22/2006 nl development, non obese, no deformities ENT: Normocephalic, normal hearing, moist mucosa CV: Pulses:DP/PT= 2+ and symmetric, capillary refill < 2 secs, no peripheral edema/varicosities Skin: no rash, bruising or lesions. Good turgor. Psych: cooperative and appropriate, alert and oriented x 3, good mood and affect. Musculoskeletal: Patient walks with a slightly antalgic gait on the right. She has flexion of about 100 degrees and internal rotation of 20 with reproducible pain in the groin. Imaging: IMPRESSION: AP view of the pelvis and AP and lateral views of the right hip demonstrate no acute fracture or dislocation. There is mild superior lateral joint space narrowing bilaterally, stable, consistent with degenerative change. Remaining joint spaces of the pelvis appear stable. Degenerative changes of the included lower lumbar spine. Ostomy noted in the left lower abdomen. Vending Machine Attendant: [facility] Transcribe Date/Time: Jul 05 2024 3:09P Dictated by : BILLY TAYLOR MD This examination was interpreted and the report reviewed and electronically signed by: BILLY TAYLOR MD on Jul 05 2024 3:11PM EST Results-Findings * * *Final Report* * * DATE OF EXAM: Jul 05 2024 2:50PM [id number] [id number] - XR HIP 3V PELV+ AP/LAT RT / PROCEDURE REASON: Right hip pain * * * * Physician Interpretation * * * * History: Right hip pain FINDINGS/ Supporting Subjective Information Below: Past Surgical History: PAST SURGICAL HISTORY Procedure Laterality Date 2D ECHO (EXEP) 08/24/2019 EF=65%, mild Freire Dysf, 1+ TI, APPENDECTOMY HX 1975 BREAST BIOPSY 07/30/2018 left vacuum assisted core needle biopsy [facility] COLONOSCOPY FLX DX W/COLLJ SPEC WHEN PFRMD 09/01/2018 Colonoscopy, repeat 10 yrs ESOPHAGOGASTRODUODENOS COPY TRANSORAL DIAGNOSTIC 09/01/2018 EGD LAPAROSCOPIC HEMICOLECTOMY 2019 due to ruptured diverticulitis, has colostomy LAPAROSCOPY SURG CHOLECYSTECTOMY Cholecystectomy, lap LIG/TRNSXJ FLP TUBE ABDL/VAG APPR UNI/BI Tubal ligation PAST SURGICAL HISTORY OF bladder lift RECONSTRUCTION ROTATOR CUFF AVULSION CHRONIC Left 08/08/2017 Left shoulder arthroscopy, Open RCR and SAD REMV CATARACT EXTRACAP,INSERT LENS Bilateral 10/2022 STENT PLACEMENT 05/06/2013 LAD STRESS TEST 07/28/2017 normal TOTAL ABDOMINAL HYSTERECT W/WO RMVL TUBE OVARY Hysterectomy, LESA Medications: Current Outpatient Medications Medication Sig Fenofibrate (LOFIBRA) 54 mg tablet Take 1 tablet by mouth once daily. pioglitazone (ACTOS) 30 mg tablet Take 1 tablet by mouth once daily. dilTIAZem CD (CARTIA XT) 180 mg 24 hr capsule Take 1 capsule by mouth once daily. buPROPion SR (WELLBUTRIN SR) 150 mg 12 hr tablet Take 1 tablet by mouth once daily for 7 days, THEN 1 tablet two times a day. ezetimibe (ZETIA) 10 mg tablet Take 1 tablet by mouth once daily. Magnesium Oxide 500 mg magnesium tab Take 1 tablet by mouth two times a day. mirtazapine (REMERON) 30 mg tablet Take 1 tablet by mouth daily at bedtime. EPINEPHrine (EPIPEN 2-ESTEFANIA) 0.3 mg/0.3 mL auto-injector Inject 0.3 mL intramuscularly as needed. atorvastatin (LIPITOR) 80 mg tablet Take 1 tablet b (more content not included)... Normal [facility] Office Visit (FAMPWS ) TY YU ([id number]) 1955 F NFR Date Time Provider Department 07/05/24 1:20 PM HEAVEN GARG FAMPWS During your visit today, we recorded the following information about you: Temperature Pulse Respiration Blood pressure 97.6 degrees 99/minute 18/minute 110/70 Weight 72.6 kg Heaven Garg PA-C 07/05/2024 2:02 PM Signed Chief Complaint Patient presents with: Breast Problem HPI Ty Mina Luis Eduardo is a 69 year old female who presents here today for breast concern. Patient reports a pimple like spot on her breast. Has been present for a few months. Hasn't changed in size No tenderness No nipple discharge. Is up to date with mammograms. Past medical history, appointments, medications, allergies reviewed. Previous Medical History PAST MEDICAL HISTORY Diagnosis Date Age-related osteoporosis without current pathological fracture 06/01/2020 Anxiety 07/05/2013 Asthma diagnosed in childhood Urias's palsy Bilateral carotid artery disease (HCC) 12/15/2017 US 11/2017: 20-40% on right and 40-60% on left. Bilateral carotid artery stenosis 02/12/2021 US 11/2017: 20-40% on right and 40-60% on left. Bursitis of right hip 04/01/2013 Cataract 09/14/2021 Dr. [facility]aquín [facility] Chicken pox as a child Chronic midline low back pain without sciatica 08/02/[address] (HCC) 06/01/2020 Placed 2019 after colectomy due to perforated diverticulitis. 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 07/09/[address] Cunningham, stent to LAD Current moderate episode of major depressive disorder without prior episode (HCC) 07/14/2018 Current use of proton pump inhibitor 06/26/2017 Mg checked 06/2017 Diverticulosis 11/16/2013 Encounter for Medicare annual wellness exam 01/15/2021 Medical B eligibilty date 05/23/19 Date of last exam n/a Essential hypertension Ex-smoker 10/19/2014 Started at age 14 smoked up to 1 PPD. As of 12/2015 1/2 PPD or less. Quit 08/2019 Fibromyalgia 11/17/2013 Foot callus 06/01/2020 Gastroesophageal reflux disease without esophagitis 01/08/2016 Glaucoma suspect of both eyes 09/14/2021 Dr. [facility]ín [facility] Hiatal hernia 07/28/2017 Hip arthritis 04/01/[address] Ivy (Ortho) History of shingles 2005 Insomnia 01/08/2016 Iron deficiency anemia 07/04/[address] 11/11/2022 DPA: Son, Wilbert Carr Lumbar degenerative disc disease 12/28/[address] Arriaza Migraine without aura and without status migrainosus, not intractable 07/09/2016 Mixed hyperlipidemia Moderate pulmonary hypertension (HCC) 02/12/2021 Osteoarthritis of multiple joints 09/06/[address] Ford Continue home meds: prednisone and methotrexate Paroxysmal atrial fibrillation (HCC) 02/12/2021 RLS (restless legs syndrome) Smoker 10/19/2014 Started at age 14 smoked up to 1 PPD. As of 12/2015 1/2 PPD or less. Stage 3b chronic kidney disease (HCC) 06/02/2020 Tear of left rotator cuff 07/24/2017 Added automatically from request for surgery [id number] Type 2 diabetes mellitus without complication, without long-term current use of insulin (HCC) 12/17/2017 Unspecified dementia with behavioral disturbance 07/21/[address] Partida. He also stopped her cymbalta and started Zoloft Valvular heart disease 02/12/2021 Previous Surgical History PAST SURGICAL HISTORY Procedure Laterality Date 2D ECHO (EXEP) 08/24/2019 EF=65%, mild Freire Dysf, 1+ TI, APPENDECTOMY HX 1975 BREAST BIOPSY 07/30/2018 left vacuum assisted core needle biopsy [facility] COLONOSCOPY FLX DX W/COLLJ SPEC WHEN PFRMD 09/01/2018 Colonoscopy, repeat 10 yrs ESOPHAGOGASTRODUODENOS COPY TRANSORAL DIAGNOSTIC 09/01/2018 EGD LAPAROSCOPIC HEMICOLECTOMY 2018 due to ruptured diverticulitis, has colostomy LAPAROSCOPY SURG CHOLECYSTECTOMY Cholecystectomy, lap LIG/TRNSXJ FLP TUBE ABDL/VAG APPR UNI/BI Tubal ligation PAST SURGICAL HISTORY OF bladder lift RECONSTRUCTION ROTATOR CUFF AVULSION CHRONIC Left 08/08/2017 Left shoulder arthroscopy, Open RCR and SAD REMV CATARACT EXTRACAP,INSERT LENS Bilateral 10/2022 STENT PLACEMENT 05/06/2013 LAD STRESS TEST 07/28/2017 normal TOTAL ABDOMINAL HYSTERECT W/WO RMVL TUBE OVARY Hysterectomy, LESA Family History FAMILY HISTORY Problem Relation Age of Onset Cancer Father Pancreatic Hypertension Mother at age 7, [place] at age 42 Coronary Artery Disease Mother 70 Lipids Mother Headache Mother Cancer Sister Non Hodgken's lymphoma Diabetes Sister Thyroid Sister No Known Problems Daughter No Known Problems Son Diabetes Brother other (Other) Brother MDS Diabetes Maternal Aunt Heart Attack Maternal Grandmother COPD Maternal Grandfather Cancer Paternal Grandmother Stroke Paternal Grandfather Patient Allergies ALLERGIES Allergen (more content not included)... [facility] PELV+ AP/LAT RTon 07-05-2024 XR HIP 3V PELV+ AP/LAT RT * * *Final Report* * * DATE OF EXAM: Jul 05 2024 2:50PM [id number] [id number] - XR HIP 3V PELV+ AP/LAT RT / PROCEDURE REASON: Right hip pain * * * * Physician Interpretation * * * * History: Right hip pain FINDINGS/ IMPRESSION: AP view of the pelvis and AP and lateral views of the right hip demonstrate no acute fracture or dislocation. There is mild superior lateral joint space narrowing bilaterally, stable, consistent with degenerative change. Remaining joint spaces of the pelvis appear stable. Degenerative changes of the included lower lumbar spine. Ostomy noted in the left lower abdomen. Vending Machine Attendant: [facility] Transcribe Date/Time: Jul 05 2024 3:09P Dictated by : BILLY TAYLOR MD This examination was interpreted and the report reviewed and electronically signed by: BILLY TAYLOR MD on Jul 05 2024 3:11PM EST [id number] Normal [facility] XR Pelvis and Hip - right AP and Lateral frogon 07-05-2024 IMPRESSION: AP view of the pelvis and AP and lateral views of the right hip demonstrate no acute fracture or dislocation. There is mild superior lateral joint space narrowing bilaterally, stable, consistent with degenerative change. Remaining joint spaces of the pelvis appear stable. Degenerative changes of the included lower lumbar spine. Ostomy noted in the left lower abdomen. Vending Machine Attendant: [facility] Transcribe Date/Time: Jul 05 2024 3:09P Dictated by : BILLY TAYLOR MD This examination was interpreted and the report reviewed and electronically signed by: BILLY TAYLOR MD on Jul 05 2024 3:11PM EST DIVISION OF RADIOLOGY * * *Final Report* * * DATE OF EXAM: Jul 05 2024 2:50PM [id number] [id number] - XR HIP 3V PELV+ AP/LAT RT / PROCEDURE REASON: Right hip pain * * * * Physician Interpretation * * * * History: Right hip pain FINDINGS/ DIVISION OF RADIOLOGY Provider, Abhijit Garcia [facility] - 07/05/2024 * * *Final Report* * * DATE OF EXAM: Jul 05 2024 2:50PM WRX [id number] - XR HIP 3V PELV+ AP/LAT RT / PROCEDURE REASON: Right hip pain * * * * Physician Interpretation * * * * History: Right hip pain FINDINGS/ IMPRESSION IMPRESSION: AP view of the pelvis and AP and lateral views of the right hip demonstrate no acute fracture or dislocation. There is mild superior lateral joint space narrowing bilaterally, stable, consistent with degenerative change. Remaining joint spaces of the pelvis appear stable. Degenerative changes of the included lower lumbar spine. Ostomy noted in the left lower abdomen. Vending Machine Attendant: [facility] Transcribe Date/Time: Jul 05 2024 3:09P Dictated by : BILLY TAYLOR MD This examination was interpreted and the report reviewed and electronically signed by: BILLY TAYLOR MD on Jul 05 2024 3:11PM [facility] Radiology Study observation (narrative) [facility] XR Pelvis and Hip - right AP and Lateral frogOrdered By: [facility] TY [facility]U ([id number]) 1955 F NFR Date Time Provider Department 06/18/24 FIDELIA YANES [facility] During your visit today, we recorded the following information about you: Fidelia Yanes MA 06/18/2024 9:51 AM Signed Received in the mail 06/17/2024 note from patient requesting a letter be sent for her to continue her benefits. Also attached a letter from [employer] indicating that her benefit card will close as of 06/22/2024. It does mention that patient need to enroll in a 2024 [employer] medicare advantage plan to continue her benefits. Patients hand written note is asking for provider to send a letter to her to continue her benefits. Please make ask patient if she has applied for her 2024 benefits per the letter. Also provider is out until 06/28/2024. Letter was placed on providers desk. Flor Hernandez LPN 06/18/2024 10:07 AM Signed Patient returned call and she states she did not need to reapply just needing a letter as started for CKD to continue insurance coverage. Magan Amador MD 06/30/2024 11:26 AM Addendum Letter ready to be faxed. Patient requests the letter be faxed to [facility] at [phone]. Patient also requests a call back once letter is sent at [phone]. Fidelia Yanes MA 06/30/2024 12:32 PM Signed Letter on providers desk for signature. MARY CARMEN Kuhn Jeffrey A, MD 06/30/2024 1:55 PM Signed signed Fidelia Yanes MA 06/30/2024 3:52 PM Signed Patient notified and voiced understanding. Letter faxed. Fidelia Yanes MA Allergies As of Date: 06/18/2024 Noted Allergy Reaction BEES 01/05/2014 10 - Anaphylaxis LIPITOR (ATORVASTATIN CALCIUM) 01/08/2016 17 - Myalgia PHENERGAN (PROMETHAZINE HCL) 01/25/2013 8 - GI Upset PRAVASTATIN 12/17/2017 17 - Myalgia [id number] REDUCTASE INHIBIT*12/29/2017 17 - Myalgia TRAZODONE 07/14/2018 14 - Other: See Comments Comments: Increased urine frequency Date Reviewed: 03/09/2024 Reviewed by: Tonie Turpin LPN - Fully Assessed Reason for Visit: Patient Update [1234] Cmt: Letter from [facility] and patient Prescriptions as of 06/30/2024 - dilTIAZem CD (CARTIA XT) 180 mg 24 hr capsule Take 1 capsule by mouth once daily. - buPROPion SR (WELLBUTRIN SR) 150 mg 12 hr tablet Take 1 tablet by mouth once daily for 7 days, THEN 1 tablet two times a day. - ezetimibe (ZETIA) 10 mg tablet Take 1 tablet by mouth once daily. - Magnesium Oxide 500 mg magnesium tab Take 1 tablet by mouth two times a day. - mirtazapine (REMERON) 30 mg tablet Take 1 tablet by mouth daily at bedtime. - EPINEPHrine (EPIPEN 2-ESTEFANIA) 0.3 mg/0.3 mL auto-injector Inject 0.3 mL intramuscularly as needed. - atorvastatin (LIPITOR) 80 mg tablet Take 1 tablet by mouth daily at bedtime. For cholesterol. - gabapentin (NEURONTIN) 100 mg capsule Take 100 mg by mouth. Taken prn per gastro - Fenofibrate (LOFIBRA) 54 mg tablet Take 1 tablet by mouth once daily. - pioglitazone (ACTOS) 30 mg tablet Take 1 tablet by mouth once daily. - pantoprazole DR (PROTONIX) 40 mg tablet Take 1 tablet by mouth two times a day. - sucralfate (CARAFATE) 1 gram tablet Take 1 tablet by mouth three times a day as needed. - Lancets lancets Test blood sugar(s) 1 times daily. Dx: Other DM Code E11.9, Insulin: No - scopolamine (TRANSDERM-SCOP) patch 1.5 mg/72 hr (delivers 1 mg over 3 days) Apply 1 Patch as directed every 72 hours. - cyanocobalamin (VITAMIN B-12) 500 mcg tablet Take 500 mcg by mouth twice daily. Take 2 tablets daily - mometasone (NASONEX) 50 mcg/actuation nasal spray Mometasone Furoate [Nasonex] 2 SPRAY NASAL DAILY PRN For Cold Symptons December 30, 2017 Active - nitroglycerin sublingual (NITROSTAT) 0.4 mg SL tablet Dissolve 1 tablet under the tongue every 5 minutes as needed for chest pain. - blood sugar diagnostic (BLOOD GLUCOSE TEST) test strip Test blood sugar(s) 1 times daily. Dx: E11.9 Insulin: No - memantine (NAMENDA) 5 mg tablet Take 5 mg by mouth two times a day. - cholecalciferol, vitamin D3, (VITAMIN D3 ORAL) Take by mouth once daily. - Ferrous Sulfate (SLOW FE) 142 mg (45 mg iron) TbER Take 1 tablet by mouth once daily. - aspirin, enteric coated (ADULT LOW DOSE ASPIRIN) 81 mg EC tablet Take 1 tablet by mouth once daily. Meds Comments as of 07/05/2013: Calcium/Zinc tablet Problem List As Of Date 06/18/2024 Noted Resolved Hip arthritis [M16.10] 04/01/2013 Essential hypertension [I10] Mixed hyperlipidemia [E78.2] RLS (restless legs syndrome) [G25.81] SUMMARY [V999.95] 05/04/2013 07/28/2017 Anxiety [F41.9] 07/05/2013 07/19/2019 Diverticulosis [K57.90] 11/16/2013 Fibromyalgia [M79.7] 11/17/2013 Ex-smoker [Z87.891] 10/19/2014 Right hip pain [M25.551] 11/07/2014 07/19/2019 Lumbar degenerative disc disease [M51.369] 12/28/2015 Gastroesophageal reflux disease without esophag*01/08/2016 Insomnia [G47.00] (more content not included)... Normal [facility] CNPNon 06-10-2024 CNPN Telephone (FAMPWS) TY YU ([id number]) 1955 F NFR Date Time Provider Department 06/10/24 [facility] During your visit today, we recorded the following information about you: Rosemary Mcnair RN 06/10/2024 12:39 PM Addendum Patient calling with 2 updates: Patient will be mailing paper work to PCP office that she received from [place], for provider to review and complete as necessary. Patient calling in with concern for little hard pimple on areola of right breast. Has been there for about 3 months. Size of pencil eraser tip. Slightly raised. No pain, swelling or color changes. Appt made for evaluation for time/date that patient requested; 07/05/24 with RYAN Buenrostro. CAROLIN Land Rayanne, PA-C 06/10/2024 1:03 PM Signed noted Allergies As of Date: 06/10/2024 Noted Allergy Reaction BEES 01/05/2014 10 - Anaphylaxis LIPITOR (ATORVASTATIN CALCIUM) 01/08/2016 17 - Myalgia PHENERGAN (PROMETHAZINE HCL) 01/25/2013 8 - GI Upset PRAVASTATIN 12/17/2017 17 - Myalgia [id number]-[id number] REDUCTASE INHIBIT*12/29/2017 17 - Myalgia TRAZODONE 07/14/2018 14 - Other: See Comments Comments: Increased urine frequency Date Reviewed: 03/09/2024 Reviewed by: Tonie Turpin LPN - Fully Assessed Reason for Visit: Patient Request [[id number]] Prescriptions as of 06/10/2024 - dilTIAZem CD (CARTIA XT) 180 mg 24 hr capsule Take 1 capsule by mouth once daily. - buPROPion SR (WELLBUTRIN SR) 150 mg 12 hr tablet Take 1 tablet by mouth once daily for 7 days, THEN 1 tablet two times a day. - ezetimibe (ZETIA) 10 mg tablet Take 1 tablet by mouth once daily. - Magnesium Oxide 500 mg magnesium tab Take 1 tablet by mouth two times a day. - mirtazapine (REMERON) 30 mg tablet Take 1 tablet by mouth daily at bedtime. - EPINEPHrine (EPIPEN 2-ESTEFANIA) 0.3 mg/0.3 mL auto-injector Inject 0.3 mL intramuscularly as needed. - atorvastatin (LIPITOR) 80 mg tablet Take 1 tablet by mouth daily at bedtime. For cholesterol. - gabapentin (NEURONTIN) 100 mg capsule Take 100 mg by mouth. Taken prn per gastro - Fenofibrate (LOFIBRA) 54 mg tablet Take 1 tablet by mouth once daily. - pioglitazone (ACTOS) 30 mg tablet Take 1 tablet by mouth once daily. - pantoprazole DR (PROTONIX) 40 mg tablet Take 1 tablet by mouth two times a day. - sucralfate (CARAFATE) 1 gram tablet Take 1 tablet by mouth three times a day as needed. - Lancets lancets Test blood sugar(s) 1 times daily. Dx: Other DM Code E11.9, Insulin: No - scopolamine (TRANSDERM-SCOP) patch 1.5 mg/72 hr (delivers 1 mg over 3 days) Apply 1 Patch as directed every 72 hours. - cyanocobalamin (VITAMIN B-12) 500 mcg tablet Take 500 mcg by mouth twice daily. Take 2 tablets daily - mometasone (NASONEX) 50 mcg/actuation nasal spray Mometasone Furoate [Nasonex] 2 SPRAY NASAL DAILY PRN For Cold Symptons December 30, 2017 Active - nitroglycerin sublingual (NITROSTAT) 0.4 mg SL tablet Dissolve 1 tablet under the tongue every 5 minutes as needed for chest pain. - blood sugar diagnostic (BLOOD GLUCOSE TEST) test strip Test blood sugar(s) 1 times daily. Dx: E11.9 Insulin: No - memantine (NAMENDA) 5 mg tablet Take 5 mg by mouth two times a day. - cholecalciferol, vitamin D3, (VITAMIN D3 ORAL) Take by mouth once daily. - Ferrous Sulfate (SLOW FE) 142 mg (45 mg iron) TbER Take 1 tablet by mouth once daily. - aspirin, enteric coated (ADULT LOW DOSE ASPIRIN) 81 mg EC tablet Take 1 tablet by mouth once daily. Meds Comments as of 07/05/2013: Calcium/Zinc tablet Problem List As Of Date 06/10/2024 Noted Resolved Hip arthritis [M16.10] 04/01/2013 Essential hypertension [I10] Mixed hyperlipidemia [E78.2] RLS (restless legs syndrome) [G25.81] SUMMARY [V999.95] 05/04/2013 07/28/2017 Anxiety [F41.9] 07/05/2013 07/19/2019 Diverticulosis [K57.90] 11/16/2013 Fibromyalgia [M79.7] 11/17/2013 Ex-smoker [Z87.891] 10/19/2014 Right hip pain [M25.551] 11/07/2014 07/19/2019 Lumbar degenerative disc disease [M51.369] 12/28/2015 Gastroesophageal reflux disease without esophag*01/08/2016 Insomnia [G47.00] 01/08/2016 Multiple falls [R29.6] 01/08/2016 07/28/2017 Migraine without aura and without status migrai*07/09/2016 Coronary artery disease involving torres martinez alarcon*07/09/2016 Osteoarthritis of multiple joints [M15.9] 09/06/2016 Well adult exam [Z00.00] 06/26/2017 07/19/2019 Encounter for screening for diabetes mellitus [*06/26/2017 07/28/2017 Hiatal hernia [K44.9] 07/28/2017 Type 2 diabetes mellitus without complication, *12/17/2017 Encounter for screening mammogram for breast ca*12/29/2017 07/19/2019 Current moderate episode of major depressive di*07/14/2018 Colon cancer screening [Z12.11] 07/14/2018 07/19/2019 History of shingles [Z86.19] 06/23/2004 Iron deficiency anemia [D50.9] 07/04/2019 Medication management [Z79.899] 06/01/2020 Abnorma (more content not included)... Normal [facility] CNPNon 06-03-2024 CNPN Telephone (FAMWS) TY YU ([id number]) 1955 F NFR Date Time Provider Department 06/03/24 [facility] During your visit today, we recorded the following information about you: Enriqueta Hoffmann LPN 06/03/2024 10:00 AM Signed Pt calling to requesting Wellbutrin be sent in for her to stop smoking. Pt reports she has been on this before. Pt also has tried Chantix and not able to take this. Pt offered apt in the office to discus and declined and asked to have message sent thru for refill. Please review and advise pt. JAMIE Arita Rayanne, PA-C 06/03/2024 10:27 AM Signed Prescription sent. HOSSEIN Buenrostro Sherill A, LPN 06/03/2024 10:49 AM Signed Pt advised of same. Tonie Turpin LPN Allergies As of Date: 06/03/2024 Noted Allergy Reaction BEES 01/05/2014 10 - Anaphylaxis LIPITOR (ATORVASTATIN CALCIUM) 01/08/2016 17 - Myalgia PHENERGAN (PROMETHAZINE HCL) 01/25/2013 8 - GI Upset PRAVASTATIN 12/17/2017 17 - Myalgia [id number]-[id number] REDUCTASE INHIBIT*12/29/2017 17 - Myalgia TRAZODONE 07/14/2018 14 - Other: See Comments Comments: Increased urine frequency Date Reviewed: 03/09/2024 Reviewed by: Tonie Turpin LPN - Fully Assessed Reason for Visit: requesting medication [Other] Order(s):buPROPion SR (WELLBUTRIN SR) 150 mg 12 hr tabletTake 1 tablet by mouth once daily for 7 days, THEN 1 tablet two times a day.Disp: 60 tabletRfl: 3 Prescriptions as of 06/03/2024 - dilTIAZem CD (CARTIA XT) 180 mg 24 hr capsule Take 1 capsule by mouth once daily. - buPROPion SR (WELLBUTRIN SR) 150 mg 12 hr tablet Take 1 tablet by mouth once daily for 7 days, THEN 1 tablet two times a day. - ezetimibe (ZETIA) 10 mg tablet Take 1 tablet by mouth once daily. - Magnesium Oxide 500 mg magnesium tab Take 1 tablet by mouth two times a day. - mirtazapine (REMERON) 30 mg tablet Take 1 tablet by mouth daily at bedtime. - EPINEPHrine (EPIPEN 2-ESTEFANIA) 0.3 mg/0.3 mL auto-injector Inject 0.3 mL intramuscularly as needed. - atorvastatin (LIPITOR) 80 mg tablet Take 1 tablet by mouth daily at bedtime. For cholesterol. - gabapentin (NEURONTIN) 100 mg capsule Take 100 mg by mouth. Taken prn per gastro - Fenofibrate (LOFIBRA) 54 mg tablet Take 1 tablet by mouth once daily. - pioglitazone (ACTOS) 30 mg tablet Take 1 tablet by mouth once daily. - pantoprazole DR (PROTONIX) 40 mg tablet Take 1 tablet by mouth two times a day. - sucralfate (CARAFATE) 1 gram tablet Take 1 tablet by mouth three times a day as needed. - Lancets lancets Test blood sugar(s) 1 times daily. Dx: Other DM Code E11.9, Insulin: No - scopolamine (TRANSDERM-SCOP) patch 1.5 mg/72 hr (delivers 1 mg over 3 days) Apply 1 Patch as directed every 72 hours. - cyanocobalamin (VITAMIN B-12) 500 mcg tablet Take 500 mcg by mouth twice daily. Take 2 tablets daily - mometasone (NASONEX) 50 mcg/actuation nasal spray Mometasone Furoate [Nasonex] 2 SPRAY NASAL DAILY PRN For Cold Symptons December 30, 2017 Active - nitroglycerin sublingual (NITROSTAT) 0.4 mg SL tablet Dissolve 1 tablet under the tongue every 5 minutes as needed for chest pain. - blood sugar diagnostic (BLOOD GLUCOSE TEST) test strip Test blood sugar(s) 1 times daily. Dx: E11.9 Insulin: No - memantine (NAMENDA) 5 mg tablet Take 5 mg by mouth two times a day. - cholecalciferol, vitamin D3, (VITAMIN D3 ORAL) Take by mouth once daily. - Ferrous Sulfate (SLOW FE) 142 mg (45 mg iron) TbER Take 1 tablet by mouth once daily. - aspirin, enteric coated (ADULT LOW DOSE ASPIRIN) 81 mg EC tablet Take 1 tablet by mouth once daily. Meds Comments as of 07/05/2013: Calcium/Zinc tablet Problem List As Of Date 06/03/2024 Noted Resolved Hip arthritis [M16.10] 04/01/2013 Essential hypertension [I10] Mixed hyperlipidemia [E78.2] RLS (restless legs syndrome) [G25.81] SUMMARY [V999.95] 05/04/2013 07/28/2017 Anxiety [F41.9] 07/05/2013 07/19/2019 Diverticulosis [K57.90] 11/16/2013 Fibromyalgia [M79.7] 11/17/2013 Ex-smoker [Z87.891] 10/19/2014 Right hip pain [M25.551] 11/07/2014 07/19/2019 Lumbar degenerative disc disease [M51.369] 12/28/2015 Gastroesophageal reflux disease without esophag*01/08/2016 Insomnia [G47.00] 01/08/2016 Multiple falls [R29.6] 01/08/2016 07/28/2017 Migraine without aura and without status migrai*07/09/2016 Coronary artery disease involving torres martinez alarcon*07/09/2016 Osteoarthritis of multiple joints [M15.9] 09/06/2016 Well adult exam [Z00.00] 06/26/2017 07/19/2019 Encounter for screening for diabetes mellitus [*06/26/2017 07/28/2017 Hiatal hernia [K44.9] 07/28/2017 Type 2 diabetes mellitus without complication, *12/17/2017 Encounter for screening mammogram for breast ca*12/29/2017 07/19/2019 Current moderate episode of major depressive di*07/14/2018 Colon cancer screening [Z12.11] 07/14/2018 (more content not included)... Normal [facility] CNPNon 05-26-2024 CNPN Telephone (FAMPWS) YUTY PETERS ([id number]) 1955 F NFR Date Time Provider Department 05/26/24 MAGAN AMADOR [facility] During your visit today, we recorded the following information about you: Uyen Witt RN 05/26/2024 10:48 AM Signed Patient calls to report that she needs a letter faxed to [employer] Department for the upcoming year to continue utilizing her benefit for OTC medications. She reports that she currently gets OTC medication and an additional $45 dollars a month for medication/supplies through [employer] but without a letter from provider stating that she has Chronic Kidney Disease, Diabetes, and HTN they aren't going to honor it for 2024. Patient requests the letter be faxed to [employer] at [phone]. Patient also requests a call back once letter is sent at [phone]. CAROLIN Lopez Jeffrey A, MD 05/26/2024 1:23 PM Signed Advise pt if she received a letter informing her of this from [facility] then I need a copy of it to review it before writing a letter. Uyen Witt RN 05/26/2024 3:56 PM Signed Call placed to patient with no answer. Message left for patient to return call to provider office and ask for a triage nurse for message below. CAROLIN Lopez M Robin, RN 05/26/2024 4:31 PM Signed Pt returned call and given provider's message below with verbalized understanding. The only way patient knows to get the letter to pcp is to mail it to pcp via [employer]. Patient only hopes this can be taken care of before the first of the year. Patient cannot access her MC. Given [facility] address and advised patient to add attn: Dr. Amador. Pt agreeable. Allergies As of Date: 05/26/2024 Noted Allergy Reaction BEES 01/05/2014 10 - Anaphylaxis LIPITOR (ATORVASTATIN CALCIUM) 01/08/2016 17 - Myalgia PHENERGAN (PROMETHAZINE HCL) 01/25/2013 8 - GI Upset PRAVASTATIN 12/17/2017 17 - Myalgia [id number] REDUCTASE INHIBIT*12/29/2017 17 - Myalgia TRAZODONE 07/14/2018 14 - Other: See Comments Comments: Increased urine frequency Date Reviewed: 03/09/2024 Reviewed by: Tonie Turpin LPN - Fully Assessed Reason for Visit: Letter [264] Prescriptions as of 06/04/2024 - dilTIAZem CD (CARTIA XT) 180 mg 24 hr capsule Take 1 capsule by mouth once daily. - buPROPion SR (WELLBUTRIN SR) 150 mg 12 hr tablet Take 1 tablet by mouth once daily for 7 days, THEN 1 tablet two times a day. - ezetimibe (ZETIA) 10 mg tablet Take 1 tablet by mouth once daily. - Magnesium Oxide 500 mg magnesium tab Take 1 tablet by mouth two times a day. - mirtazapine (REMERON) 30 mg tablet Take 1 tablet by mouth daily at bedtime. - EPINEPHrine (EPIPEN 2-ESTEFANIA) 0.3 mg/0.3 mL auto-injector Inject 0.3 mL intramuscularly as needed. - atorvastatin (LIPITOR) 80 mg tablet Take 1 tablet by mouth daily at bedtime. For cholesterol. - gabapentin (NEURONTIN) 100 mg capsule Take 100 mg by mouth. Taken prn per gastro - Fenofibrate (LOFIBRA) 54 mg tablet Take 1 tablet by mouth once daily. - pioglitazone (ACTOS) 30 mg tablet Take 1 tablet by mouth once daily. - pantoprazole DR (PROTONIX) 40 mg tablet Take 1 tablet by mouth two times a day. - sucralfate (CARAFATE) 1 gram tablet Take 1 tablet by mouth three times a day as needed. - Lancets lancets Test blood sugar(s) 1 times daily. Dx: Other DM Code E11.9, Insulin: No - scopolamine (TRANSDERM-SCOP) patch 1.5 mg/72 hr (delivers 1 mg over 3 days) Apply 1 Patch as directed every 72 hours. - cyanocobalamin (VITAMIN B-12) 500 mcg tablet Take 500 mcg by mouth twice daily. Take 2 tablets daily - mometasone (NASONEX) 50 mcg/actuation nasal spray Mometasone Furoate [Nasonex] 2 SPRAY NASAL DAILY PRN For Cold Symptons December 30, 2017 Active - nitroglycerin sublingual (NITROSTAT) 0.4 mg SL tablet Dissolve 1 tablet under the tongue every 5 minutes as needed for chest pain. - blood sugar diagnostic (BLOOD GLUCOSE TEST) test strip Test blood sugar(s) 1 times daily. Dx: E11.9 Insulin: No - memantine (NAMENDA) 5 mg tablet Take 5 mg by mouth two times a day. - cholecalciferol, vitamin D3, (VITAMIN D3 ORAL) Take by mouth once daily. - Ferrous Sulfate (SLOW FE) 142 mg (45 mg iron) TbER Take 1 tablet by mouth once daily. - aspirin, enteric coated (ADULT LOW DOSE ASPIRIN) 81 mg EC tablet Take 1 tablet by mouth once daily. Meds Comments as of 07/05/2013: Calcium/Zinc tablet Problem List As Of Date 05/26/2024 Noted Resolved Hip arthritis [M16.10] 04/01/2013 Essential hypertension [I10] Mixed hyperlipidemia [E78.2] RLS (restless legs syndrome) [G25.81] SUMMARY [V999.95] 05/04/2013 07/28/2017 Anxiety [F41.9] 07/05/2013 07/19/2019 Diverticulosis [K57.90] 11/16/2013 Fibromyalgia [M79.7] 11/17/2013 Ex-smoker [Z87.891] 10/19/2014 Right hip pain [M25.551] 11/07/2014 07/19/2019 Lumbar degenerative disc disease [M51.369] 07/ (more content not included)... Normal [facility] Radha 04-26-2024 [facility] Telephone (FAMPWS) TY YU ([id number]) 1955 F NFR Date Time Provider Department 04/26/24 MAGAN AMADOR During your visit today, we recorded the following information about you: Rosemary Mcnair RN 04/26/2024 2:18 PM Signed Patient requested refill of her mirtazapine 30 mg last week. Reports she was taking 2 tabs daily and not 1 tab as ordered, causing her to run out too soon. Patient was then advised by Dr Amador, as copied: Magan Amador MD 04/19/24 9:35 PM Note Please let patient know she has never been prescribed mirtazapine 30 mg take two before bed. She has been on only one before bed since her dose was increased to 30 mg since 01/02/2022. Also the maximum dose is only 45 mg in a day. Her last script was on 03/09/2024. She will not be able to refill it until 06/07/2024 or possibly a few days earlier. Patient states she read that it was not good to stop mirtazapine immediately and she has been out of it for a couple weeks and is concerned. Voices understanding that she was not taking the medication as prescribed, which caused her to run out early. Patent asking if Dr. Amador would consider changing her mirtazapine to 45 mg daily at bedtime and sending script for this to [facility] in [place], [place]. Please call patient with reply. Thank you. Magan Amador MD 04/26/2024 3:34 PM Signed Let patient know that if she has been off the mirtazapine for several weeks then there is no concern about stopping it abruptly because it was completely out of her system in 10-14 days. Also I have no documentation that there has been an issue with the current dose being at 30 mg QHS so to change it just to get it covered would be insurance fraud on I'm not doing that. I can send in a new script for the 30 mg dose but she will probably have to pay out of pocket for it. It may be less expensive if she uses [facility] for a discounted rate. Joelle Pruett RN 04/26/2024 4:03 PM Signed Pt called and is notified of providers results and instructions. Pt voices understanding. Let her know that provider had already sent in refill she was trying to fill off of an old bottle. I let her know she would need to call in and let them know she had a refill on hold. Joelle Pruett RN Allergies As of Date: 04/26/2024 Noted Allergy Reaction BEES 01/05/2014 10 - Anaphylaxis LIPITOR (ATORVASTATIN CALCIUM) 01/08/2016 17 - Myalgia PHENERGAN (PROMETHAZINE HCL) 01/25/2013 8 - GI Upset PRAVASTATIN 12/17/2017 17 - Myalgia [id number] REDUCTASE INHIBIT*12/29/2017 17 - Myalgia TRAZODONE 07/14/2018 14 - Other: See Comments Comments: Increased urine frequency Date Reviewed: 03/09/2024 Reviewed by: Tonie Turpin LPN - Fully Assessed Reason for Visit: Patient Request [[id number]] Prescriptions as of 04/26/2024 - Magnesium Oxide 500 mg magnesium tab Take 1 tablet by mouth two times a day. - mirtazapine (REMERON) 30 mg tablet Take 1 tablet by mouth daily at bedtime. - EPINEPHrine (EPIPEN 2-ESTEFANIA) 0.3 mg/0.3 mL auto-injector Inject 0.3 mL intramuscularly as needed. - atorvastatin (LIPITOR) 80 mg tablet Take 1 tablet by mouth daily at bedtime. For cholesterol. - gabapentin (NEURONTIN) 100 mg capsule Take 100 mg by mouth. Taken prn per gastro - Fenofibrate (LOFIBRA) 54 mg tablet Take 1 tablet by mouth once daily. - pioglitazone (ACTOS) 30 mg tablet Take 1 tablet by mouth once daily. - varenicline (CHANTIX CONTINUING MONTH BOX) 1 mg tablet Take 1 tablet by mouth two times a day with meals. - ezetimibe (ZETIA) 10 mg tablet take 1 tablet by mouth daily - dilTIAZem CD (CARTIA XT) 180 mg 24 hr capsule Take 1 capsule by mouth once daily. - pantoprazole DR (PROTONIX) 40 mg tablet Take 1 tablet by mouth two times a day. - sucralfate (CARAFATE) 1 gram tablet Take 1 tablet by mouth three times a day as needed. - Lancets lancets Test blood sugar(s) 1 times daily. Dx: Other DM Code E11.9, Insulin: No - varenicline (CHANTIX) 0.5 mg (11)- 1 mg (42) tablet Take 0.5 mg by mouth once daily on Days 1 through 3, THEN 0.5 mg twice daily on Days 4 through 7, THEN 1 mg twice daily on Day 8 and thereafter - scopolamine (TRANSDERM-SCOP) patch 1.5 mg/72 hr (delivers 1 mg over 3 days) Apply 1 Patch as directed every 72 hours. - cyanocobalamin (VITAMIN B-12) 500 mcg tablet Take 500 mcg by mouth twice daily. Take 2 tablets daily - mometasone (NASONEX) 50 mcg/actuation nasal spray Mometasone Furoate [Nasonex] 2 SPRAY NASAL DAILY PRN For Cold Symptons December 30, 2017 Active - nitroglycerin sublingual (NITROSTAT) 0.4 mg SL tablet Dissolve 1 tablet under the tongue every 5 minutes as needed for chest pain. - blood sugar diagnostic (BLOOD GLUCOSE TEST) test strip Test blood sugar(s) 1 times daily. Dx: E11.9 Insulin: No - memantine (NAMENDA) 5 mg tablet Take 5 mg by mouth two times a day. - cho (more content not included)... Normal [facility] VITAMIN D2 AND D3, SERUMon 1 25-HYDROXYVITAMIN D2 < 1.0 Normal () [facility] Comment on above: Performed By: #### P ROF, PROFLIPID, FOL, FERR, TIBC, B12, MG #### [facility] [address] [address] 25-HYDROXYVITAMIN D2 D3 TOTAL 39.4 ng/mL Normal 30.0-80.0 [facility] Comment on above: Result Comment: INTE RPRETIVE INFORMATION: 25-HydroxyVitamin D2 and D3, Serum 1-17 years: Deficiency: less than 20 ng/mL Optimum level: greater than or equal to 20 ng/mL* *(Diaz CL et al. Pediatrics 2008; 122: 1142-52.) 18 years and older: Deficiency: Less than 20 ng/mL Insufficiency: 20-29 ng/mL Optimum Level: 30-80 ng/mL Possible Toxicity: Greater than 150 ng/mL (José Miguel GÓMEZ et al. JCEM 2011; 96:1911-30) Separate values for Vitamin D2 and D3 are reported in addition to the total. Access complete set of age- and/or gender-specific reference intervals for this test in the [employer] Test Directory ([employer]). This test was developed and its performance characteristics determined by [facility]. It has not been cleared or approved by the US Food and Drug Administration. This test was performed in a CLIA certified laboratory and is intended for clinical purposes. U.S. Patent No. [id number] Performed By: [facility] [address] [place] [id number] [employer]inder Outside Diameter: Abhilash Barger MD, PhD CLIA Number: [id number] Performed By: #### P ROF, PROFLIPID, FOL, FERR, TIBC, B12, MG #### [facility] [address] [address] 25-HYDROXYVITAMIN D3 39.4 ng/mL Normal () [facility] Comment on above: Performed By: #### P ROF, PROFLIPID, FOL, FERR, TIBC, B12, MG #### [facility] [address] [address] PTH INTACTon 04-09-2024 CALCIUM FOR PTH 7.8 mg/dL Low 8.8-10.2 [facility] Comment on above: Result Comment: Perf ormed By: [facility] [address] [place] [id number] [employer] Outside Diameter: Abhilash Barger MD, PhD CLIA Number: [id number] Performed By: #### P ROF, PROFLIPID, FOL, FERR, TIBC, B12, MG #### [facility] [address] [address] INTACT PARATHYROID HORMONE 53 pg/mL Normal 15-65 [facility] Comment on above: Performed By: #### P ROF, PROFLIPID, FOL, FERR, TIBC, B12, MG #### [facility] [address] [address] CBC (NO WBC DIFFERENTIAL)on 04-06-2024 Hematocrit (Bld) [Volume fraction] 31.5 % Low 36-46 [facility] Comment on above: Performed By: #### P ROF, PROFLIPID, FOL, FERR, TIBC, B12, MG #### [facility] [address] [address] Hemoglobin (Bld) [Mass/Vol] 10.5 g/dL Low 12.0-16.0 [facility] Comment on above: Performed By: #### P ROF, PROFLIPID, FOL, FERR, TIBC, B12, MG #### [facility] [address] [address] MCV (RBC) [Entitic vol] 91.2 fL Normal 78-[address] [facility] Comment on above: Performed By: #### P ROF, PROFLIPID, FOL, FERR, TIBC, B12, MG #### [facility] [address] [address] MEAN LONNIE HGB CONC 33.3 g/dl Normal 31.0-37.0 [facility] Comment on above: Performed By: #### P ROF, PROFLIPID, FOL, FERR, TIBC, B12, MG #### [facility] [address] [address] MEAN CORPUSCULAR HGB 30.4 pg Normal 26.0-34.0 [facility] Comment on above: Performed By: #### P ROF, PROFLIPID, FOL, FERR, TIBC, B12, MG #### [facility] [address] [address] PLATELET 238 x10 3/uL Normal 150-350 [facility] Comment on above: Performed By: #### P ROF, PROFLIPID, FOL, FERR, TIBC, B12, MG #### [facility] [address] [address] Platelet mean volume (Bld) [Entitic vol] 8.5 fL Normal 7.5-10.7 [facility] Comment on above: Performed By: #### P ROF, PROFLIPID, FOL, FERR, TIBC, B12, MG #### [facility] [address] [address] RED BLOOD CELL COUNT 3.45 x10 6/uL Low 4.00-5.20 [facility] [place] [facility] Comment on above: Performed By: #### P ROF, PROFLIPID, FOL, FERR, TIBC, B12, MG #### [facility] [address] [address] WHITE BLOOD CELL COUNT 6.7 x10 3/uL Normal 4.5-11.0 [facility] Comment on above: Performed By: #### P ROF, PROFLIPID, FOL, FERR, TIBC, B12, MG #### [facility] [address] [address] RENAL FUNCTION PANELon 04-06 ADJUSTED CALCIUM 8.1 MG/DL Normal [facility] Comment on above: Performed By: #### V ITD #### [facility] [address] [address] Albumin [Mass/Vol] 3.7 g/dL Normal 3.4-5.0 [facility] Comment on above: Performed By: #### V ITD #### [facility] [address] [address] Calcium [Mass/Vol] 7.9 mg/dL Low 8.5-10.1 [facility] Comment on above: Performed By: #### V ITD #### [facility] [address] [address] Chloride [Moles/Vol] 115 mmol/L High 98-107 [facility] Comment on above: Performed By: #### V ITD #### [facility] [address] [address] CO2 [Moles/Vol] 23 mmol/L Normal 21-32 [facility] Comment on above: Result Comment: TCO2 test measures total amount of CO2 in the blood, which occurs mostly in the form of bicarbonate (HCO3). Performed By: #### V ITD #### [facility] [address] [address] Creatinine [Mass/Vol] 1.58 mg/dL High 0.55-1.02 [facility] Comment on above: Performed By: #### V ITD #### [facility] [address] [address] GFR/1.73 sq M.predicted among non-blacks MDRD (S/P/Bld) [Vol rate/Area] 35 mL/min/{1.73_m2} Low >60 [facility] Comment on above: Result Comment: Aver age GFR for 60-69 years old = 85 ml/min/1.73 sq.m Chronic Kidney Disease - GFR generally <60 ml/min/1.73 sq.m Kidney Failure - GFR generally <15 ml/min/1.73 sq.m The estimated glomerular filtration rate (eGFR) was calculated using the 2020 CKD-EPI eGFR creatinine equation, which does not include race as a factor. This equation is validated in individuals 18 years of age and older. Accurate estimation of GFR requires stable day-to-day creatinine. Creatinine-based eGFR is less accurate in patients with extremes of muscle mass, restriction of dietary protein, ingestion of creatine, extra-renal metabolism of creatinine, or treatment with medications that affect renal tubular creatinine secretion. The eGFR is normalized to a body surface area of 1.73 square meters. GFR Categories in Chronic Kidney Disease (CKD) GFR GFR (mL/min/1.73 Category: square meters): Interpretation: G1 90 or greater Normal or high* G2 60-89 Mild decrease* G3a 45-59 Mild to moderate decrease G3b 30-44 Moderate to severe decrease G4 15-29 Severe decrease G5 14 or less Kidney failure *In the absence of evidence of kidney damage, neither GFR category G1 nor G2 fulfill the criteria for CKD (Kidney Int Suppl 2013;3:1-150) The new eGFRcr equation has similar overall performance characteristics to older equations. For most patients the previous eGFR result will be similar. However, for some, the values may differ by more than 10% particularly at higher values of eGFRcr and for younger patients. Please go to eGFR calculator/National Kidney Foundation to compare this result with a previously calculated eGFR based on older equations. Performed By: #### V ITD #### [facility] [address] [address] Glucose [Mass/Vol] 100 mg/dL Normal 70-110 [facility] Comment on above: Result Comment: Fals amee depressed or falsely elevated results may occur on samples drawn from patients taking Sulfasalazine and Sulfapyridine. ADA Guidelines for Diabetes: Fasting glucose <100 = Normal fasting glucose. Fasting glucose 100-125 = Impaired fasting glucose, also referred to as pre-diabetes. Fasting glucose >125 = Provisional diagnosis of diabetes. Diagnosis must be confirmed by repeat testing on a different day. Performed By: #### V ITD #### [facility] [address] [address] INORGANIC PHOSPHOROUS 3.4 MG/DL Normal 2.5-4.9 [facility] Comment on above: Performed By: #### V ITD #### [facility] [address] [address] Potassium [Moles/Vol] 3.9 mmol/L Normal 3.5-5.1 [facility] Comment on above: Performed By: #### V ITD #### [facility] [address] [address] Sodium [Moles/Vol] 142 mmol/L Normal 136-145 [facility] Comment on above: Performed By: #### V ITD #### [facility] [address] [address] Urea nitrogen [Mass/Vol] 26 mg/dL High 7-18 [facility] Comment on above: Performed By: #### V ITD #### [facility] [address] [address] Urea nitrogen/Creatinine [Mass ratio] 16.5 mg/mg Normal 0-30 [facility] Comment on above: Performed By: #### V ITD #### [facility] [address] [address] UR PROTEIN/CREATININE RATIOo n 04-06-2024 DEAN OF MEN, UR 195 mg/dL Normal [facility] Comment on above: Performed By: #### V ITD #### [facility] [address] [address] Protein Ql (U) 56.0 MG/DL High <11.9 [facility] Comment on above: Performed By: #### V ITD #### [facility] [address] [address] UR PROTEIN CREATININE RATIO 0.287 High 0.000-0.190 [facility] Comment on above: Performed By: #### V ITD #### [facility] [address] [address] [facility] TY YU ([id number]) 1955 F NFR Date Time Provider Department 03/10/24 HEAVEN GARG [facility] During your visit today, we recorded the following information about you: Tonie Turpin LPN 03/10/2024 12:21 PM Signed Spoke with pt to advise her that Dr Moreno's office responded that they did not do a diabetic eye exam as they were not aware pt is diabetic and she did not have any diabetic meds listed on ler med list. Advised pt of need to have diabetic eye exams. Pt has eye exam about 2 months ago at [facility] in [place], [place]. She doesn't think it was a dilated exam. Advised her to make sure she lets them know she is a diabetic as she is no longer going to be seeing Dr Moreno. Office will try to obtain last eye exam form [facility]. Tonie Turpin LPN Allergies As of Date: 03/10/2024 Noted Allergy Reaction BEES 01/05/2014 10 - Anaphylaxis LIPITOR (ATORVASTATIN CALCIUM) 01/08/2016 17 - Myalgia PHENERGAN (PROMETHAZINE HCL) 01/25/2013 8 - GI Upset PRAVASTATIN 12/17/2017 17 - Myalgia [id number] REDUCTASE INHIBIT*12/29/2017 17 - Myalgia TRAZODONE 07/14/2018 14 - Other: See Comments Comments: Increased urine frequency Date Reviewed: 03/09/2024 Reviewed by: Tonie Turpin LPN - Fully Assessed Reason for Visit: Diabetic Eye Exam [3566] Prescriptions as of 03/10/2024 - mirtazapine (REMERON) 30 mg tablet Take 1 tablet by mouth daily at bedtime. - EPINEPHrine (EPIPEN 2-ESTEFANIA) 0.3 mg/0.3 mL auto-injector Inject 0.3 mL intramuscularly as needed. - atorvastatin (LIPITOR) 80 mg tablet Take 1 tablet by mouth daily at bedtime. For cholesterol. - gabapentin (NEURONTIN) 100 mg capsule Take 100 mg by mouth. Taken prn per gastro - Fenofibrate (LOFIBRA) 54 mg tablet Take 1 tablet by mouth once daily. - pioglitazone (ACTOS) 30 mg tablet Take 1 tablet by mouth once daily. - varenicline (CHANTIX CONTINUING MONTH BOX) 1 mg tablet Take 1 tablet by mouth two times a day with meals. - ezetimibe (ZETIA) 10 mg tablet take 1 tablet by mouth daily - dilTIAZem CD (CARTIA XT) 180 mg 24 hr capsule Take 1 capsule by mouth once daily. - pantoprazole DR (PROTONIX) 40 mg tablet Take 1 tablet by mouth two times a day. - sucralfate (CARAFATE) 1 gram tablet Take 1 tablet by mouth three times a day as needed. - Lancets lancets Test blood sugar(s) 1 times daily. Dx: Other DM Code E11.9, Insulin: No - varenicline (CHANTIX) 0.5 mg (11)- 1 mg (42) tablet Take 0.5 mg by mouth once daily on Days 1 through 3, THEN 0.5 mg twice daily on Days 4 through 7, THEN 1 mg twice daily on Day 8 and thereafter - scopolamine (TRANSDERM-SCOP) patch 1.5 mg/72 hr (delivers 1 mg over 3 days) Apply 1 Patch as directed every 72 hours. - magnesium oxide (MAG-OX) 400 mg (241.3 mg magnesium) tablet Take 1 tablet by mouth two times a day. - cyanocobalamin (VITAMIN B-12) 500 mcg tablet Take 500 mcg by mouth twice daily. Take 2 tablets daily - mometasone (NASONEX) 50 mcg/actuation nasal spray Mometasone Furoate [Nasonex] 2 SPRAY NASAL DAILY PRN For Cold Symptons December 30, 2017 Active - nitroglycerin sublingual (NITROSTAT) 0.4 mg SL tablet Dissolve 1 tablet under the tongue every 5 minutes as needed for chest pain. - blood sugar diagnostic (BLOOD GLUCOSE TEST) test strip Test blood sugar(s) 1 times daily. Dx: E11.9 Insulin: No - memantine (NAMENDA) 5 mg tablet Take 5 mg by mouth two times a day. - cholecalciferol, vitamin D3, (VITAMIN D3 ORAL) Take by mouth once daily. - Ferrous Sulfate (SLOW FE) 142 mg (45 mg iron) TbER Take 1 tablet by mouth once daily. - aspirin, enteric coated (ADULT LOW DOSE ASPIRIN) 81 mg EC tablet Take 1 tablet by mouth once daily. Meds Comments as of 07/05/2013: Calcium/Zinc tablet Problem List As Of Date 03/10/2024 Noted Resolved Hip arthritis [M16.10] 04/01/2013 Essential hypertension [I10] Mixed hyperlipidemia [E78.2] RLS (restless legs syndrome) [G25.81] SUMMARY [V999.95] 05/04/2013 07/28/2017 Anxiety [F41.9] 07/05/2013 07/19/2019 Diverticulosis [K57.90] 11/16/2013 Fibromyalgia [M79.7] 11/17/2013 Ex-smoker [Z87.891] 10/19/2014 Right hip pain [M25.551] 11/07/2014 07/19/2019 Lumbar degenerative disc disease [M51.36] 12/28/2015 Gastroesophageal reflux disease without esophag*01/08/2016 Insomnia [G47.00] 01/08/2016 Multiple falls [R29.6] 01/08/2016 07/28/2017 Migraine without aura and without status migrai*07/09/2016 Coronary artery disease involving torres martinez alarcon*07/09/2016 Osteoarthritis of multiple joints [M15.9] 09/06/2016 Well adult exam [Z00.00] 06/26/2017 07/19/2019 Encounter for screening for diabetes mellitus [*06/26/2017 07/28/2017 Hiatal hernia [K44.9] 07/28/2017 Type 2 diabetes mellitus without complication, *12/17/2017 Encounter for screening mammogram for breast ca*12/29/2017 07/19/2019 Current moderate episode of major depressive di (more content not included)... [facility] ([id number]) 1955 F NFR Date Time Provider Department 03/10/24 [facility]ARG [facility] During your visit today, we recorded the following information about you: Heaven Garg PA-C 03/10/2024 12:39 PM Signed Let patient know that labs show: Magnesium is still slightly low. She gets this OTC. What dose does she take daily? Kidney function is stable compared to our last labs. Continue with specialist. Iron levels are okay. She is slightly anemic though. This has improved since last labs. I'm ordering 2 additional labs to make sure no other potential causes. Thyroid is normal Cholesterol is normal. A1c at 6.5% which is stable ThanksHeaven Sherill A, LPN 03/10/2024 1:44 PM Signed Left message for pt to contact office. JAMIE Mascorro M Robin, RN 03/10/2024 2:33 PM Signed Pt returned call and given provider's message below with verbalized understanding. Patient agreeable. Patient reports she takes magnesium 500 mg daily OTC. Please advise on this. Heaven Garg PA-C 03/11/2024 9:28 AM Signed Have her increase magnesium to twice a day. Tonie Turpin LPN 03/11/2024 9:45 AM Signed Pt notified of Heaven's instructions. Pt verbalizes understanding. Tonie Turpin LPN Allergies As of Date: 03/10/2024 Noted Allergy Reaction BEES 01/05/2014 10 - Anaphylaxis LIPITOR (ATORVASTATIN CALCIUM) 01/08/2016 17 - Myalgia PHENERGAN (PROMETHAZINE HCL) 01/25/2013 8 - GI Upset PRAVASTATIN 12/17/2017 17 - Myalgia DQCOVCA-OWD-SMY REDUCTASE INHIBIT*12/29/2017 17 - Myalgia TRAZODONE 07/14/2018 14 - Other: See Comments Comments: Increased urine frequency Date Reviewed: 03/09/2024 Reviewed by: Tonie Turpin LPN - Fully Assessed Reason for Visit: Results [95] Primary Visit Diagnosis:Anemia, unspecified type [D64.9] Order(s):FOLATE, SERUM [SQSERFOL] Order #: [id number] FUTURE FERRITIN [SQFERR] Order #: [id number] FUTURE Magnesium Oxide 500 mg magnesium tabTake 1 tablet by mouth two times a day.Disp: Rfl: Prescriptions as of 03/11/2024 - Magnesium Oxide 500 mg magnesium tab Take 1 tablet by mouth two times a day. - mirtazapine (REMERON) 30 mg tablet Take 1 tablet by mouth daily at bedtime. - EPINEPHrine (EPIPEN 2-ESTEFANIA) 0.3 mg/0.3 mL auto-injector Inject 0.3 mL intramuscularly as needed. - atorvastatin (LIPITOR) 80 mg tablet Take 1 tablet by mouth daily at bedtime. For cholesterol. - gabapentin (NEURONTIN) 100 mg capsule Take 100 mg by mouth. Taken prn per gastro - Fenofibrate (LOFIBRA) 54 mg tablet Take 1 tablet by mouth once daily. - pioglitazone (ACTOS) 30 mg tablet Take 1 tablet by mouth once daily. - varenicline (CHANTIX CONTINUING MONTH BOX) 1 mg tablet Take 1 tablet by mouth two times a day with meals. - ezetimibe (ZETIA) 10 mg tablet take 1 tablet by mouth daily - dilTIAZem CD (CARTIA XT) 180 mg 24 hr capsule Take 1 capsule by mouth once daily. - pantoprazole DR (PROTONIX) 40 mg tablet Take 1 tablet by mouth two times a day. - sucralfate (CARAFATE) 1 gram tablet Take 1 tablet by mouth three times a day as needed. - Lancets lancets Test blood sugar(s) 1 times daily. Dx: Other DM Code E11.9, Insulin: No - varenicline (CHANTIX) 0.5 mg (11)- 1 mg (42) tablet Take 0.5 mg by mouth once daily on Days 1 through 3, THEN 0.5 mg twice daily on Days 4 through 7, THEN 1 mg twice daily on Day 8 and thereafter - scopolamine (TRANSDERM-SCOP) patch 1.5 mg/72 hr (delivers 1 mg over 3 days) Apply 1 Patch as directed every 72 hours. - cyanocobalamin (VITAMIN B-12) 500 mcg tablet Take 500 mcg by mouth twice daily. Take 2 tablets daily - mometasone (NASONEX) 50 mcg/actuation nasal spray Mometasone Furoate [Nasonex] 2 SPRAY NASAL DAILY PRN For Cold Symptons December 30, 2017 Active - nitroglycerin sublingual (NITROSTAT) 0.4 mg SL tablet Dissolve 1 tablet under the tongue every 5 minutes as needed for chest pain. - blood sugar diagnostic (BLOOD GLUCOSE TEST) test strip Test blood sugar(s) 1 times daily. Dx: E11.9 Insulin: No - memantine (NAMENDA) 5 mg tablet Take 5 mg by mouth two times a day. - cholecalciferol, vitamin D3, (VITAMIN D3 ORAL) Take by mouth once daily. - Ferrous Sulfate (SLOW FE) 142 mg (45 mg iron) TbER Take 1 tablet by mouth once daily. - aspirin, enteric coated (ADULT LOW DOSE ASPIRIN) 81 mg EC tablet Take 1 tablet by mouth once daily. Meds Comments as of 07/05/2013: Calcium/Zinc tablet Problem List As Of Date 03/10/2024 Noted Resolved Hip arthritis [M16.10] 04/01/2013 Essential hypertension [I10] Mixed hyperlipidemia [E78.2] RLS (restless legs syndrome) [G25.81] SUMMARY [V999.95] 05/04/2013 07/28/2017 Anxiety [F41.9] 07/05/2013 07/19/2019 Diverticulosis [K57.90] 11/16/2013 Fibromyalgia [M79.7] 11/17/2013 Ex-smoker [Z87.891] 10/19/2014 Right hip pain [M25.551] 11/07/2014more content not included)... Normal [facility] ALBUMIN/CREATININE RATIO, UR INEon 03-09-2024 Albumin DL <= 20 mg/L (U) [Mass/Vol] mg/dL Normal [facility] Comment on above: Order Comment: Speci men Type: URINE SPECIMENOrdering Facility: [facility] Address: [address] [place] [address] Performed By: #### U ACR ####[facility] LABCLIA [id number] [place] [address] [place] Albumin/Creatinine (U) [Mass ratio] <9 Normal <30 [facility] Comment on above: Order Comment: Speci men Type: URINE SPECIMENOrdering Facility: [facility] Address: [address] [place] [address] Result Comment: Adul t Male and Female Nephrotic Criteria: <30 mg/g is considered normal to mildly increased 30-300 mg/g is considered moderately increased >300 mg/g is considered severely increased KDIGO. (2013). KDIGO 2012 Clinical Practice Guideline for the Evaluation and Management of Chronic Kidney Disease. Official Journal of the International Society of Nephrology, 3(1), 1-150. Performed By: #### U ACR ####[facility] LABCLIA [id number] [place] [id number] [place] Creatinine (U) [Mass/Vol] 133.7 mg/dL Normal 20.0-300.0 [facility] Comment on above: Order Comment: Speci men Type: URINE SPECIMENOrdering Facility: [facility] Address: [address] [place] [address] Performed By: #### U ACR ####[facility] LABCL[facility] [id number] [place] [address] [place] CBC W Auto Differential pane l (Bld)on 03-09-2024 Basophils (Bld) [#/Vol] 0.04 10*3/uL [facility] Basophils/100 WBC (Bld) 0.5 % C [facility] Differential cell count method Nom (Bld) Auto [facility] Eosinophils (Bld) [#/Vol] 0.18 10*3/uL [facility] Eosinophils/100 WBC (Bld) 2.4 % [facility] Erythrocyte distribution width (RBC) [Ratio] 14.4 % 11.5 - 15.0 % [facility] Hematocrit (Bld) [Volume fraction] 32.7 % Low 36.0 - 46.0 % [facility] Hemoglobin (Bld) [Mass/Vol] 10.4 g/dL Low 11.5 - 15.5 g/dL [facility] Immature granulocytes (Bld) [#/Vol] 0.03 10*3/uL [facility] Immature granulocytes/100 WBC (Bld) 0.4 % [facility] Interpretation and review of laboratory results Abnormal [facility] Lymphocytes (Bld) [#/Vol] 2.11 10*3/uL [facility] Lymphocytes/100 WBC (Bld) 28.6 % [facility] MCH (RBC) [Entitic mass] 30.0 pg 26.0 - 34.0 pg [facility] MCHC (RBC) [Mass/Vol] 31.8 g/dL 30.5 - 36.0 g/dL [facility] MCV (RBC) [Entitic vol] 94.2 fL 80.0 - 100.0 fL [facility] Monocytes (Bld) [#/Vol] 0.69 10*3/uL [facility] Monocytes/100 WBC (Bld) 9.3 % C [facility] Neutrophils (Bld) [#/Vol] 4.33 10*3/uL [facility] Neutrophils/100 WBC (Bld) 58.8 % [facility] Nucleated RBC (Bld) [#/Vol] [facility] Nucleated RBC/100 WBC (Bld) [Ratio] 0.0 % /100 WBC [facility] Platelet mean volume (Bld) [Entitic vol] 10.9 fL 9.0 - 12.7 fL [facility] Platelets (Bld) [#/Vol] 254 10*3/uL [facility] RBC (Bld) [#/Vol] 3.47 10*6/uL Low 3.90 - 5.2 0 m/uL [facility] WBC (Bld) [#/Vol] 7.38 10*3/uL [facility] Basophils (Bld) [#/Vol] 0.04 10*3/uL Normal <0.11 [facility] Comment on above: Order Comment: Speci men Type: BLOOD SPECIMENOrdering Facility: [facility] Address: [address] [place] [address] Performed By: #### 5 7021-8 ####[facility] LABCLIA [id number] [place] [address] [place] Basophils/100 WBC (Bld) 0.5 % Normal C [facility] Comment on above: Order Comment: Speci men Type: BLOOD SPECIMENOrdering Facility: [facility] Address: [address] [place] [address] Performed By: #### 5 7021-8 ####[facility] LABCLIA [id number] [place] [address] [place] Differential cell count method Nom (Bld) Auto Normal [facility] Comment on above: Order Comment: Speci men Type: BLOOD SPECIMENOrdering Facility: [facility] Address: [address] [place] [address] Performed By: #### 5 7021-8 ####[facility] LABCLIA [id number] [place] [address] [place] Eosinophils (Bld) [#/Vol] 0.18 10*3/uL Normal <0.46 [facility] Comment on above: Order Comment: Speci men Type: BLOOD SPECIMENOrdering Facility: [facility] Address: [address] [place] [address] Performed By: #### 5 7021-8 ####[facility]CLIA [id number] [place] [address] [place] Eosinophils/100 WBC (Bld) 2.4 % Normal [facility] Comment on above: Order Comment: Speci men Type: BLOOD SPECIMENOrdering Facility: [facility] Address: [address] [place] [address] Performed By: #### 5 7021-8 ####[facility] LABCLIA [id number] [place] [address] [place] Erythrocyte distribution width (RBC) [Ratio] 14.4 % Normal 11.5-15.0 [facility] Comment on above: Order Comment: Speci men Type: BLOOD SPECIMENOrdering Facility: [facility] Address: [address] [place] [address] Performed By: #### 5 7021-8 ####[facility]CL[facility] [id number] [place] [address] [place] Hematocrit (Bld) [Volume fraction] 32.7 % Low 36.0-46.0 [facility] Comment on above: Order Comment: Speci men Type: BLOOD SPECIMENOrdering Facility: [facility] Address: [address] [place] [address] Performed By: #### 5 7021-8 ####[facility] LABCLIA [id number] [place] [address] [place] Hemoglobin (Bld) [Mass/Vol] 10.4 g/dL Low 11.5-15.5 [facility] Comment on above: Order Comment: Speci men Type: BLOOD SPECIMENOrdering Facility: [facility] Address: [address] [place] [address] Performed By: #### 5 7021-8 ####[facility] LABCLIA [id number] [place] [address] [place] Immature granulocytes (Bld) [#/Vol] 0.03 10*3/uL Normal <0.10 [facility] Comment on above: Order Comment: Speci men Type: BLOOD SPECIMENOrdering Facility: [facility] Address: [address] [place] [address] Performed By: #### 5 7021-8 ####[facility]CLIA [id number] [place] [address] [place] Immature granulocytes/100 WBC (Bld) 0.4 % Normal [facility] Comment on above: Order Comment: Speci men Type: BLOOD SPECIMENOrdering Facility: [facility] Address: [address] [place] [address] Performed By: #### 5 7021-8 ####[facility] LABCL[facility] [id number] [place] [address] [place] Lymphocytes (Bld) [#/Vol] 2.11 10*3/uL Normal 1.00-4.00 [facility] Comment on above: Order Comment: Speci men Type: BLOOD SPECIMENOrdering Facility: [facility] Address: [address] [place] [address] Performed By: #### 5 7021-8 ####[facility]CL[facility] [id number] [place] [address] [place] Lymphocytes/100 WBC (Bld) 28.6 % Normal [facility] Comment on above: Order Comment: Speci men Type: BLOOD SPECIMENOrdering Facility: [facility] Address: [address] [place] [address] Performed By: #### 5 7021-8 ####[facility] LABIA [id number] [place] [address] [place] MCH (RBC) [Entitic mass] 30.0 pg Normal 26.0-34.0 [facility] Comment on above: Order Comment: Speci men Type: BLOOD SPECIMENOrdering Facility: [facility] Address: [address] [place] [address] Performed By: #### 5 7021-8 ####[facility]CL[facility] [id number] [place] [address] [place] MCHC (RBC) [Mass/Vol] 31.8 g/dL Normal 30.5-36.[address] [facility] Comment on above: Order Comment: Speci men Type: BLOOD SPECIMENOrdering Facility: [facility] Address: [address] [place] [address] Performed By: #### 5 7021-8 ####[facility]CLIA [id number] [place] [address] [place] MCV (RBC) [Entitic vol] 94.2 fL Normal 80.0-100.0 [facility] Comment on above: Order Comment: Speci men Type: BLOOD SPECIMENOrdering Facility: [facility] Address: [address] [place] [address] Performed By: #### 5 7021-8 ####[facility]CL[facility] [id number] [place] [address] [place] Monocytes (Bld) [#/Vol] 0.69 10*3/uL Normal <0.87 [facility] Comment on above: Order Comment: Speci men Type: BLOOD SPECIMENOrdering Facility: [facility] Address: [address] [place] [address] Performed By: #### 5 7021-8 ####[facility]CLIA [id number] [place] [address] [place] Monocytes/100 WBC (Bld) 9.3 % Normal [facility] Comment on above: Order Comment: Speci men Type: BLOOD SPECIMENOrdering Facility: [facility] Address: [address] [place] [address] Performed By: #### 5 7021-8 ####[facility]CLIA [id number] [place] [address] [place] Neutrophils (Bld) [#/Vol] 4.33 10*3/uL Normal 1.45-7.50 [facility] Comment on above: Order Comment: Speci men Type: BLOOD SPECIMENOrdering Facility: [facility] Address: [address] [place] [address] Performed By: #### 5 7021-8 ####[facility]CL[facility] [id number] [place] [address] [place] Neutrophils/100 WBC (Bld) 58.8 % Normal [facility] Comment on above: Order Comment: Speci men Type: BLOOD SPECIMENOrdering Facility: [facility] Address: [address] [place] [address] Performed By: #### 5 7021-8 ####[facility]CL[facility] [id number] [place] [address] [place] Nucleated RBC (Bld) [#/Vol] 10*3/uL Normal <0.01 [facility] Comment on above: Order Comment: Speci men Type: BLOOD SPECIMENOrdering Facility: [facility] Address: [address] [place] [address] Performed By: #### 5 7021-8 ####[facility]CL[facility] [id number] [place] [address] [place] Nucleated RBC/100 WBC (Bld) [Ratio] 0.0 /100 WBC Normal [facility] Comment on above: Order Comment: Speci men Type: BLOOD SPECIMENOrdering Facility: [facility] Address: [address] [place] [address] Performed By: #### 5 7021-8 ####[facility]CL[facility] [id number] [place] [address] [place] Platelet mean volume (Bld) [Entitic vol] 10.9 fL Normal 9.0-12.7 [facility] Comment on above: Order Comment: Speci men Type: BLOOD SPECIMENOrdering Facility: [facility] Address: [address] [place] [address] Performed By: #### 5 7021-8 ####[facility] LABIA [id number] [place] [address] [place] Platelets (Bld) [#/Vol] 254 10*3/uL Normal 150-400 [facility] Comment on above: Order Comment: Speci men Type: BLOOD SPECIMENOrdering Facility: [facility] Address: [address] [place] [address] Performed By: #### 5 7021-8 ####[facility] LABIA [id number] [place] [address] [place] RBC (Bld) [#/Vol] 3.47 10*6/uL Low 3.90-5.20 [facility] Comment on above: Order Comment: Speci men Type: BLOOD SPECIMENOrdering Facility: [facility] Address: [address] [place] [address] Performed By: #### 5 7021-8 ####[facility] LABIA [id number] [place] [address] [place] WBC (Bld) [#/Vol] 7.38 10*3/uL Normal 3.70-11.00 [facility] Comment on above: Order Comment: Speci men Type: BLOOD SPECIMENOrdering Facility: [facility] Address: [address] [place] [address] Performed By: #### 5 7021-8 ####[facility] LABIA [id number] [address] [place] CNOVon 03-09-2024 CNOV Office Visit (FAMPWS ) TY YU ([id number]) 1955 F NFR Date Time Provider Department 03/09/24 12:40 PM HEAVEN GARG During your visit today, we recorded the following information about you: Temperature Pulse Respiration Blood pressure 98.7 degrees 73/minute 16/minute 118/70 Weight 72.1 kg Heaven Garg PA-C 03/09/2024 1:21 PM Signed Chief Complaint Patient presents with: Recheck HPI Ty Yu is a 68 year old female who presents here today for Chronic Medical Conditions.. Patient with hx of CAD, HTN, hyperlipidemia, a. Fib, CKD, DM2, iron def anemia, schatzki's ring, dementia, depression, carotid stenosis, and those as below. Patient denies concerns today. Past medical history, appointments, medications, allergies reviewed. Previous Medical History PAST MEDICAL HISTORY Diagnosis Date Age-related osteoporosis without current pathological fracture 06/01/2020 Anxiety 07/05/2013 Asthma diagnosed in childhood Urias's palsy Bilateral carotid artery disease (HCC) 12/15/2017 US 11/2017: 20-40% on right and 40-60% on left. Bilateral carotid artery stenosis 02/12/2021 US 11/2017: 20-40% on right and 40-60% on left. Bursitis of right hip 04/01/2013 Cataract 09/14/2021 Dr. Joaquín [facility] Chicken pox as a child Chronic midline low back pain without sciatica 08/02/[address] (HCC) 06/01/2020 Placed 2019 after colectomy due to perforated diverticulitis. 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 07/09/[address] Cunningham, stent to LAD Current moderate episode of major depressive disorder without prior episode (HCC) 07/14/2018 Current use of proton pump inhibitor 06/26/2017 Mg checked 06/2017 Diverticulosis 11/16/2013 Encounter for Medicare annual wellness exam 01/15/2021 Medical B eligibilty date 05/23/19 Date of last exam n/a Essential hypertension Ex-smoker 10/19/2014 Started at age 14 smoked up to 1 PPD. As of 12/2015 1/2 PPD or less. Quit 08/2019 Fibromyalgia 11/17/2013 Foot callus 06/01/2020 Gastroesophageal reflux disease without esophagitis 01/08/2016 Glaucoma suspect of both eyes 09/14/2021 Dr. [facility]ín [facility] Hiatal hernia 07/28/2017 Hip arthritis 04/01/[address] Ivy (Ortho) History of shingles 2005 Insomnia 01/08/2016 Iron deficiency anemia 07/04/[address] 11/11/2022 DPA: Son, Wilbert Carr Lumbar degenerative disc disease 12/28/[address] Arriaza Migraine without aura and without status migrainosus, not intractable 07/09/2016 Mixed hyperlipidemia Moderate pulmonary hypertension (HCC) 02/12/2021 Osteoarthritis of multiple joints 09/06/[address] Ford Continue home meds: prednisone and methotrexate Paroxysmal atrial fibrillation (HCC) 02/12/2021 RLS (restless legs syndrome) Smoker 10/19/2014 Started at age 14 smoked up to 1 PPD. As of 12/2015 1/2 PPD or less. Stage 3b chronic kidney disease (HCC) 06/02/2020 Tear of left rotator cuff 07/24/2017 Added automatically from request for surgery [id number] Type 2 diabetes mellitus without complication, without long-term current use of insulin (HCC) 12/17/2017 Unspecified dementia with behavioral disturbance 07/21/[address] Partida. He also stopped her cymbalta and started Zoloft Valvular heart disease 02/12/2021 Previous Surgical History PAST SURGICAL HISTORY Procedure Laterality Date 2D ECHO (EXEP) 08/24/2019 EF=65%, mild Freire Dysf, 1+ TI, APPENDECTOMY HX 1975 BREAST BIOPSY 07/30/2018 left vacuum assisted core needle biopsy [facility] COLONOSCOPY FLX DX W/COLLJ SPEC WHEN PFRMD 09/01/2018 Colonoscopy, repeat 10 yrs ESOPHAGOGASTRODUODENOS COPY TRANSORAL DIAGNOSTIC 09/01/2018 EGD LAPAROSCOPIC HEMICOLECTOMY 2018 due to ruptured diverticulitis, has colostomy LAPAROSCOPY SURG CHOLECYSTECTOMY Cholecystectomy, lap LIG/TRNSXJ FLP TUBE ABDL/VAG APPR UNI/BI Tubal ligation PAST SURGICAL HISTORY OF bladder lift RECONSTRUCTION ROTATOR CUFF AVULSION CHRONIC Left 08/08/2017 Left shoulder arthroscopy, Open RCR and SAD REMV CATARACT EXTRACAP,INSERT LENS Bilateral 10/2022 STENT PLACEMENT 05/06/2013 LAD STRESS TEST 07/28/2017 normal TOTAL ABDOMINAL HYSTERECT W/WO RMVL TUBE OVARY Hysterectomy, LESA Family History FAMILY HISTORY Problem Relation Age of Onset Cancer Father Pancreatic Hypertension Mother at age 7, [place] at age 42 Coronary Artery Disease Mother 70 Lipids Mother Headache Mother Cancer Sister Non Hodgken's lymphoma Diabetes Sister Thyroid Sister No Known Problems Daughter No Known Problems Son Diabetes Brother other (Other) Brother MDS Diabetes Maternal Aunt Heart Attack Maternal Grandmother COPD Maternal Grandfather Cancer Paternal Grandmother Stroke Paternal Grandfather Patient Allergies ALLER (more content not included)... Normal [facility] Comprehensive metabolic 2000 panelon 03-09-2024 Albumin [Mass/Vol] 4.5 g/dL Normal 3.9-4.[address] [facility] Comment on above: Order Comment: Speci men Type: BLOOD SPECIMENOrdering Facility: [facility] Address: [address] [place] [address] Performed By: #### 2 132-9, 28466-4 ####[facility] LABCLIA [id number] [place] [address] [place] ALP [Catalytic activity/Vol] 67 U/L Normal 34-123 [facility] Comment on above: Order Comment: Speci men Type: BLOOD SPECIMENOrdering Facility: [facility] Address: [address] [place] [address] Performed By: #### 2 132-9, 31601-4 ####[facility] LABCL[facility] [id number] [place] [address] [place] ALT [Catalytic activity/Vol] 13 U/L Normal 7-38 [facility] Comment on above: Order Comment: Speci men Type: BLOOD SPECIMENOrdering Facility: [facility] Address: [address] [place] [address] Performed By: #### 2 132-9, 52476-2 ####[facility] LABCLIA [id number] [place] [address] [place] Anion gap [Moles/Vol] 14 mmol/L Normal 8-[address] [facility] Comment on above: Order Comment: Speci men Type: BLOOD SPECIMENOrdering Facility: [facility] Address: [address] [place] [address] Performed By: #### 2 132-9, 30895-9 ####[facility] LABCLIA [id number] [place] [address] [place] AST [Catalytic activity/Vol] 20 U/L Normal 13-35 [facility] Comment on above: Order Comment: Speci men Type: BLOOD SPECIMENOrdering Facility: [facility] Address: [address] [place] [address] Performed By: #### 2 132-9, 67347-3 ####[facility] LABCLIA [id number] [place] [address] [place] Bilirubin [Mass/Vol] 0.2 mg/dL Normal 0.2-1.3 [facility] Comment on above: Order Comment: Speci men Type: BLOOD SPECIMENOrdering Facility: [facility] Address: [address] [place] [address] Performed By: #### 2 132-9, 84638-7 ####[facility]CL[facility] [id number] [place] [address] [place] Calcium [Mass/Vol] 9.3 mg/dL Normal 8.5-10.[address] [facility] Comment on above: Order Comment: Speci men Type: BLOOD SPECIMENOrdering Facility: [facility] Address: [address] [place], [place] [id number] Performed By: #### 2 132-9, 56558-6 ####[facility] LABCLIA [id number] [place] [address] [place] Chloride [Moles/Vol] 107 mmol/L Normal 98-107 [facility] Comment on above: Order Comment: Speci men Type: BLOOD SPECIMENOrdering Facility: [facility] Address: [address] [place] [address] Performed By: #### 2 132-9, 66350-1 ####[facility] LABCLIA [id number] [place] [address] [place] CO2 [Moles/Vol] 21 mmol/L Low 22-30 [facility] Comment on above: Order Comment: Speci men Type: BLOOD SPECIMENOrdering Facility: [facility] Address: [address] [place] [address] Performed By: #### 2 132-9, 86933-0 ####[facility] LABIA [id number] [place] [address] [place] Creatinine [Mass/Vol] 1.43 mg/dL High 0.58-0.[address] [facility] Comment on above: Order Comment: Speci men Type: BLOOD SPECIMENOrdering Facility: [facility] Address: [address] [place] [address] Performed By: #### 2 132-9, 19496-5 ####[facility] LABIA [id number] [address] [place] [facility] Creatinine and Glomerular filtration rate.predicted panel (S/P/Bld) 40 mL/min/1.73m??? Low >=60 [facility] Comment on above: Order Comment: Speci men Type: BLOOD SPECIMENOrdering Facility: [facility] Address: [address] [place] [address] Result Comment: Zaida mated Glomerular Filtration Rate (eGFR) is calculated using the 2020 CKD-EPI creatinine equation. This equation utilizes serum creatinine, sex, and age as parameters. The creatinine assay has traceable calibration to isotope dilution-mass spectrometry. Refer to KDIGO guidelines for clinical interpretation. In patients with unstable renal function, e.g. those with acute kidney injury, the eGFR may not accurately reflect actual GFR. Performed By: #### 2 132-9, 33846-4 ####[facility] LABCLIA [id number] [place] [address] [place] Glucose [Mass/Vol] 83 mg/dL Normal 74-[address] [facility] Comment on above: Order Comment: Speci men Type: BLOOD SPECIMENOrdering Facility: [facility] Address: [address] [place] [address] Result Comment: The [place] Diabetes Association (ADA) provides guidance for cutoff values for fasting glucose and random glucose. The ADA defines fasting as no caloric intake for at least 8 hours. Fasting plasma glucose results between 100 to 125 mg/dL indicate increased risk for diabetes (prediabetes). Fasting plasma glucose results greater than or equal to 126 mg/dL meet the criteria for diagnosis of diabetes. In the absence of unequivocal hyperglycemia, results should be confirmed by repeat testing. In a patient with classic symptoms of hyperglycemia or hyperglycemic crisis, random plasma glucose results greater than or equal to 200 mg/dL meet the criteria for diagnosis of diabetes. Reference: Standards of Medical Care in Diabetes 2016, [place] Diabetes Association. Diabetes Care. 2016.39(Suppl 1). Performed By: #### 2 132-9, 48289-0 ####[facility] LABCLIA [id number] [place] [address] [place] Potassium [Moles/Vol] 4.0 mmol/L Normal 3.7-5.[address] [facility] Comment on above: Order Comment: Speci men Type: BLOOD SPECIMENOrdering Facility: [facility] Address: [address] [place] [address] Performed By: #### 2 132-9, 40518-1 ####[facility]CLIA [id number] [place] [address] [place] Protein [Mass/Vol] 7.0 g/dL Normal 6.3-8.[address] [facility] Comment on above: Order Comment: Speci men Type: BLOOD SPECIMENOrdering Facility: [facility] Address: [address] [place] [address] Performed By: #### 2 132-9, 42888-3 ####[facility] LABCLIA [id number] [place] [address] [place] Sodium [Moles/Vol] 142 mmol/L Normal 136-[address] [facility] Comment on above: Order Comment: Speci men Type: BLOOD SPECIMENOrdering Facility: [facility] Address: [address] [place] [address] Performed By: #### 2 132-9, 76764-7 ####[facility] LABCLIA [id number] [place] [address] [place] Urea nitrogen [Mass/Vol] 26 mg/dL High 7-21 [facility] Comment on above: Order Comment: Speci men Type: BLOOD SPECIMENOrdering Facility: [facility] Address: [address] [place] [address] Performed By: #### 2 132-9, 15362-5 ####[facility] LABCLIA [id number] [place] [address] [place] HbA1c (Bld)on 03-09-2024 Average glucose Estimated from glycated hemoglobin (Bld) [Mass/Vol] 140 mg/dL Normal [facility] Comment on above: Order Comment: Yamilei men Type: BLOOD SPECIMENOrdering Facility: [facility] Address: [address] [place] [address] Result Comment: eAG: (Estimated average glucose) is a calculated value from HgbA1c and is patient accounting representative of the average blood glucose level in the last 2-3 month period. Performed By: #### 5 5454-3 ####[facility] LABIA [id number] [place] [address] [place] HbA1c (Bld) [Mass fraction] 6.5 % High 4.3-5.6 [facility] Comment on above: Order Comment: Alisha men Type: BLOOD SPECIMENOrdering Facility: [facility] Address: [address] [place] [address] Result Comment: [place] Diabetes Association guidelines indicate that patients with HgbA1c in the range 5.7-6.4% are at increased risk for development of diabetes, and intervention by lifestyle modification may be beneficial. HgbA1c greater or equal to 6.5% is considered diagnostic of diabetes. Performed By: #### 5 5454-3 ####[facility] LABIA [id number] [place] [id number] [place] Iron and Iron binding capaci ty panelon 03-09-2024 Iron [Mass/Vol] 79 ug/dL Normal 41-186 [facility] Comment on above: Order Comment: Speci men Type: BLOOD SPECIMENOrdering Facility: [facility] Address: [address] [place] [address] Performed By: #### L IPNF, 3016-3, 41768-2, 62148-5 ####[facility] LABIA [id number] [place] [address] [place] [facility] Iron binding capacity [Mass/Vol] 431 ug/dL High 232-386 [facility] Comment on above: Order Comment: Speci men Type: BLOOD SPECIMENOrdering Facility: [facility] Address: [address] [place] [address] Performed By: #### L IPNF, 3016-3, 00877-2, ####[facility] LABIA [id number] [place] [address] [place] Iron/TIBC [Molar ratio] 18.3 % Normal 15.0-57.0 [facility] Comment on above: Order Comment: Speci men Type: BLOOD SPECIMENOrdering Facility: [facility] Address: [address] [place] [address] Performed By: #### L IPNF, 3016-3, 97716-4, 52568-7 ####[facility] LABIA [id number] [place] [address] [place] LIPID PANEL, NONFASTINGon Cholesterol [Mass/Vol] 134 mg/dL Normal <200 [facility] Comment on above: Order Comment: Speci men Type: BLOOD SPECIMENOrdering Facility: [facility] Address: [address] [place] [address] Result Comment: <200 mg/dL, Desirable 200-239 mg/dL, Borderline high >239 mg/dL, High Performed By: #### L IPNF, 3016-3, 57740-9, ####[facility] LABCLIA [id number] [place] [id number] [place] HDL CHOLESTEROL, NF 59 mg/dL Normal >39 [facility] Comment on above: Order Comment: Speci men Type: BLOOD SPECIMENOrdering Facility: [facility] Address: [address] [place] [address] Result Comment: 40-5 9 mg/dL, Acceptable >59 mg/dL, High: Negative risk factor for coronary heart disease <40 mg/dL, Low: Positive risk factor for coronary heart disease Performed By: #### L IPNF, 6-3, 19012-4, ####[facility] LABCLIA [id number] [place] [address] [place] LDL CHOLESTEROL, NF 47 mg/dL Normal <100 [facility] Comment on above: Order Comment: Speci men Type: BLOOD SPECIMENOrdering Facility: [facility] Address: [address] [place] [address] Result Comment: <100 mg/dL, Optimal 100-129 mg/dL, Near optimal/above optimal 130-159 mg/dL, Borderline high 160-189 mg/dL, High >189 mg/dL, Very high Secondary prevention optimal LDL Cholesterol levels are recommended to be < 70 mg/dL Performed By: #### L IPNF, 6-3, 46943-5, ####[facility] LABCLIA [id number] [place] [address] [place] LDL/HDL RATIO, NF 0.80 mg/dL Normal <2.54 [facility] Comment on above: Order Comment: Speci men Type: BLOOD SPECIMENOrdering Facility: [facility] Address: [address] [place] [address] Result Comment: Juan wakefield: 1. National Cholesterol Education Program ATP III Guideline At-A-Glance Quick Desk Reference: National Heart, Lung, and Blood [place]. National Institutes of Health. 2001: NIH Publication No. 01-3305. 2. An International Atherosclerosis Society position paper: global recommendations for the management of dyslipidemia: executive summary, Atherosclerosis. 2014: 232(2):410-413. Performed By: #### L LISANDRO, 6-3, 20384-5, ####[facility] LABCLIA [id number] [place] [address] [place] NON HDL CHOL, NF 75 mg/dL Normal <130 [facility] Comment on above: Order Comment: Speci men Type: BLOOD SPECIMENOrdering Facility: [facility] Address: [address] [place] [address] Result Comment: <130 mg/dL, Optimal 130-159 mg/dL, Near optimal/above optimal 160-189 mg/dL, Borderline high 190-219 mg/dL, High >219 mg/dL, Very high Secondary prevention optimal non HDL Cholesterol levels are recommended to be <100 mg/dL Performed By: #### L LISANDRO, 6-3, 94146-5, ####[facility] LABCLIA [id number] [place] [address] [place] T CHOL/HDL RATIO NF 2.27 mg/dL Normal <5.10 [facility] Comment on above: Order Comment: Speci men Type: BLOOD SPECIMENOrdering Facility: [facility] Address: [address] [place] [address] Performed By: #### L LISANDRO, 3016-3, 98377-9, 00522-4 ####[facility] LABCLIA [id number] [place] [address] [place] TRIGLYCERIDES, NF 139 mg/dL Normal <150 [facility] Comment on above: Order Comment: Speci men Type: BLOOD SPECIMENOrdering Facility: [facility] Address: [address] [place] [address] Result Comment: <150 mg/dL, Normal 150-199 mg/dL, Borderline high 200-499 mg/dL, High >499 mg/dL, Very high Performed By: #### L IPNF, 3016-3, 14396-5, 51680-3 ####[facility] LABCLIA [id number] [place] [address] [place] VLDL CHOLESTEROL, NF 28 mg/dL Normal <30 [facility] Comment on above: Order Comment: Speci men Type: BLOOD SPECIMENOrdering Facility: [facility] Address: [address] [place] [address] Performed By: #### L IPKRISTOPHER, 3016-3, 80932-6, 42951-8 ####[facility] LABCLIA [id number] [place] [address] [place] Magnesium SerPl-mCncon 03-09 Magnesium [Mass/Vol] 1.3 mg/dL Low 1.7-2.3 [facility] Comment on above: Order Comment: Speci men Type: BLOOD SPECIMENOrdering Facility: [facility] Address: [address] [place] [address] Performed By: #### L IPNF, 3016-3, 05658-7, 28226-4 ####[facility] LABCLIA [id number] [place] [id number] [place] Neurology Visit Reporton Neurology Visit Report [facility] [address], [address] [place] [address] OFFICE VISIT Date of Service: 03/09/24 MR#: [id number] Acct: [id number] Name: TY YU Rep #: [id number] : 1955 Provider: Dr. César flores MD Age/Sex: 68/F Location: [facility] [place] Status: Signed with Addenda ADDENDUM by Dr. César Partida MD on 06/21/24 at 1645 HPI Details: TY YU, is a 69 F who presents to the office today for Assessment and Plan Assessment and Plan (1) Myalgia: Status: Acute (2) Dementia: Status: Chronic Qualifiers: Dementia type: unspecified type Dementia behavioral disturbance: without behavioral disturbance Qualified Code(s): F03.90 - Unspecified dementia without behavioral disturbance (3) Chronic low back pain: Status: Chronic Qualifiers: Back pain laterality: unspecified Sciatica presence: unspecified whether sciatica present Qualified Code(s): M54.50 - Low back pain, unspecified; G89.29 - Other chronic pain (4) Depression: Status: Chronic Qualifiers: Depression Type: major depressive disorder Major depression recurrence: single episode Active/Remission status: currently active Major depression episode severity: severe Psychotic features: with psychotic features Qualified Code(s): 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 450 tabs 1RF To tizanidine Take 1 to 2 tablets orally every morning and 1 to 3 tablets at bedtime as needed for insomnia and back pain. 450 tabs 2RF Refilled amitriptyline Take 2 tablets orally at bedtime 180 tabs 2RF fluoxetine 40 mg PO DAILY 90 caps 2RF Discontinued memantine Discontinued Reason: Pt no longer taking 5 mg (2.5 mL) PO BID 450 mL 1RF Addendum Addendum (2024): The patient has had increased depression. Fluoxetine will be increased to 60 mg daily. 06/21/24 1645 Date César Partida MD cc: * Signed ADDENDUM by Dr. César Partida MD on 03/10/24 at 1124 Addendum Addendum (03/10/2024): Hemoglobin A1c, vitamin D, BMP, lipid profile (09/08/2023): Hemoglobin A1c 6.4 (high), glucose 110 (high), BUN 23 (high), creatinine 1.53 (high), bicarb 20 (low), EGFR 37 (low), cholesterol 128 (normal), triglycerides 132 (normal), HDL 62 (normal), LDL 40 (normal) 03/10/24 1124 Date César Partida MD cc: * Signed HPI [facility] Chief Complaint: Details: Interim History: Ty returns for follow-up. She has a history of hypertension, hyperlipidemia, paroxysmal atrial fibrillation, concussion (at age 15 years), coronary artery disease s/p stent placement (2013), colitis/large bowel obstruction s/p colostomy (2019), diet-controlled diabetes mellitus, anxiety and depression. In August 2019, she was hospitalized for abdominal pain, encephalopathy due to sepsis, sigmoid colitis and large bowel obstruction requiring left colectomy and underwent left lower quadrant colostomy in August 2019. Her postoperative course was complicated by atrial fibrillation (treated with cardioversion) and hypokalemia. She had visual hallucinations between 2018 and 2019, following the of her . She also had cognitive difficulty beginning in 2018. She reported forgetting conversations and having poor recall of past events. Her memory difficulty had worsened over time. She is independent in her ADLs. She lives at home and her son lives nearby to assist her. Head MRIs (August 2019 and July 2020) revealed moderate chronic small vessel ischemic disease and mild diffuse cerebral atrophy; no acute intracranial pathology was identified. 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 It was also reported that poor nutritional intake due to daily vomiting and nausea (subsequently resolved) and disturbed sleep may have also been influencing her cognitive profile. A PET scan on 11/21/2020 was unremarkable. Donepezil caused nausea. Ondansetron was of benefit for her nausea. Memantine oral solution (tablets had been found undisso (more content not included)... Normal [facility] TSH SerPl-aCncon 03-09-2024 TSH Qn 1.210 m[IU]/L Normal 0.270-4.200 [facility] Comment on above: Order Comment: Speci men Type: BLOOD SPECIMENOrdering Facility: [facility] Address: [address] [place] [address] Performed By: #### L IPKRISTOPHER, 3016-3, 06545-1, 71246-9 ####[facility] LABCLIA [id number] [place] [address] [place] Urinalysis complete panel (U )on 03-09-2024 Bacteria LM.HPF (Urine sed) [#/Area] Negative Normal Negative [facility] Comment on above: Order Comment: Speci men Type: URINE SPECIMENOrdering Facility: [facility] Address: [address] [place] [address] Performed By: #### 2 4356-8 ####[facility] LABCLIA [id number] [place] [address] [place] Bilirubin Ql (U) Negative Normal Negative [facility] Comment on above: Order Comment: Speci men Type: URINE SPECIMENOrdering Facility: [facility] Address: [address] [place] [address] Performed By: #### 2 4356-8 ####[facility] LABCLIA [id number] [place] [address] [place] Clarity (Unsp spec) Clear Normal Clear [facility] Comment on above: Order Comment: Speci men Type: URINE SPECIMENOrdering Facility: [facility] Address: [address] [place] [address] Performed By: #### 2 4356-8 ####[facility] LABCLIA [id number] [place] [address] [place] Color (U) Yellow Normal Yellow [facility] Comment on above: Order Comment: Speci men Type: URINE SPECIMENOrdering Facility: [facility] Address: [address] [place] [address] Performed By: #### 2 4356-8 ####[facility] LABCLIA [id number] [place] [address] [place] Epithelial cells LM.HPF (Urine sed) [#/Area] None Seen Normal [facility] Comment on above: Order Comment: Speci men Type: URINE SPECIMENOrdering Facility: [facility] Address: [address] [place] [address] Performed By: #### 2 4356-8 ####[facility]CL[facility] [id number] [address] [place] Glucose Test strip (U) [Mass/Vol] Negative Normal Negative [facility] Comment on above: Order Comment: Speci men Type: URINE SPECIMENOrdering Facility: [facility] Address: [address] [place] [address] Performed By: #### 2 4356-8 ####[facility] LABIA [id number] [place] [address] [place] Hemoglobin Ql (U) Negative Normal Negative [facility] Comment on above: Order Comment: Speci men Type: URINE SPECIMENOrdering Facility: [facility] Address: [address] [place] [address] Performed By: #### 2 4356-8 ####[facility] LABCLIA [id number] [place] [address] [place] Hyaline casts (Urine sed) [#/Area] 0 /[LPF] Normal 0 /LPF [facility] Comment on above: Order Comment: Speci men Type: URINE SPECIMENOrdering Facility: [facility] Address: [address] [place] [address] Performed By: #### 2 4356-8 ####[facility] LABCLIA [id number] [place] [address] [place] Ketones Ql (U) Negative Normal Negative [facility] Comment on above: Order Comment: Speci men Type: URINE SPECIMENOrdering Facility: [facility] Address: [address] [place] [address] Performed By: #### 2 4356-8 ####[facility] LABCLIA [id number] [place] [address] [place] Leukocyte esterase Test strip Ql (U) Negative Normal Negative [facility] Comment on above: Order Comment: Speci men Type: URINE SPECIMENOrdering Facility: [facility] Address: [address] [place] [address] Performed By: #### 2 4356-8 ####[facility] LABCLIA [id number] [place] [address] [place] Nitrite Ql (U) Negative Normal Negative [facility] Comment on above: Order Comment: Speci men Type: URINE SPECIMENOrdering Facility: [facility] Address: [address] [place] [address] Performed By: #### 2 4356-8 ####[facility]CL[facility] [id number] [place] [address] [place] pH (U) 5.5 [pH] Normal <8.5 [facility] Comment on above: Order Comment: Speci men Type: URINE SPECIMENOrdering Facility: [facility] Address: [address] [place] [address] Performed By: #### 2 4356-8 ####[facility] LABCLIA [id number] [place] [address] [place] Protein (U) [Mass/Vol] Negative Normal Negative [facility] Comment on above: Order Comment: Speci men Type: URINE SPECIMENOrdering Facility: [facility] Address: [address] [place] [address] Performed By: #### 2 4356-8 ####[facility] LABIA [id number] [place] [address] [place] RBC LM.HPF (Urine sed) [#/Area] 0-2 /HPF Normal 0-2 /HPF [facility] Comment on above: Order Comment: Speci men Type: URINE SPECIMENOrdering Facility: [facility] Address: [address] [place] [address] Performed By: #### 2 4356-8 ####[facility] [id number] [place] [address] [place] Specific gravity (U) [Rel density] 1.021 Normal 1.005-1.030 [facility] Comment on above: Order Comment: Speci men Type: URINE SPECIMENOrdering Facility: [facility] Address: [address] [place] [address] Performed By: #### 2 4356-8 ####[facility] [id number] [place] [address] [place] Urobilinogen Ql (U) 0.2 EU/dL Normal 0.2-1.0 EU/dL [facility] Comment on above: Order Comment: Speci men Type: URINE SPECIMENOrdering Facility: [facility] Address: [address] [place] [address] Performed By: #### 2 4356-8 ####[facility] [id number] [place] [address] [place] WBC LM.HPF (Urine sed) [#/Area] 0-5 /HPF Normal 0-5 /HPF [facility] Comment on above: Order Comment: Speci men Type: URINE SPECIMENOrdering Facility: [facility] Address: [address] [place] [address] Performed By: #### 2 4356-8 ####[facility] [id number] [place] [address] [place] Vit B12 SerPl-mCncon 024 Cobalamin (Vitamin B12) [Mass/Vol] 588 pg/mL Normal 232-1245 [facility] Comment on above: Order Comment: Speci men Type: BLOOD SPECIMENOrdering Facility: [facility] Address: [address] [address] Performed By: #### 2 132-9, 19317-6 ####[facility] [id number] [address] [place] HbA1c (Bld)on 09-08-2023 Average glucose Estimated from glycated hemoglobin (Bld) [Mass/Vol] 137 mg/dL [facility] HbA1c (Bld) [Mass fraction] 6.4 % High 4.3 - 5.6 % [facility] VITAMIN D 25 HYDROXYon 09-07 25-hydroxyvitamin D3 [Mass/Vol] 33.9 ng/mL 31.0 - 80.0 ng/mL [facility] Basophil percentageOrdered B y: César Partida on 09-01-2023 Bilirubin [Mass/Vol] 0.20 mg/dL 0.20-1.00 [facility] Comment on above: For patients on eltr ombopag therapy, use of Dimension [place] TBIL is not recommended. Chloride [Moles/Vol] 109 mmol/L 98-107 [facility] Glucose [Mass/Vol] 101 mg/dL 74-106 [facility] Comment on above: Fasting Glucose resu lt from 100 to 125 mg/dL suggests IMPAIRED HOMEOSTASIS per A.D.A. criteria. Hemoglobin (Bld) [Mass/Vol] 10.6 g/dL 12.0-15.0 [facility] Potassium [Moles/Vol] 3.7 mmol/L 3.5-5.1 [facility] Protein [Mass/Vol] 7.9 g/dL 6.4-8.2 [facility] Sodium [Moles/Vol] 139 mmol/L 136-145 [facility] WBC (Bld) [#/Vol] 8.2 10*3/uL 4.4-11.0 [facility] Determination of erythrocyte mean corpuscular volume (MCV)Ordered By: César Partida on 09-01-2023 MCV (RBC) [Entitic vol] 93.5 fL 81-99 [facility] Erythrocyte distribution wid th ratioOrdered By: Césarfreddy Partida on 09-01-2023 Erythrocyte distribution width (RBC) [Ratio] 13.6 % 11.6-14.6 [facility] Erythrocyte distribution wid th standard deviationOrdered By: [facility] on 09-01-2023 Erythrocyte distribution width (RBC) [Entitic vol] 46.2 fL 35.1-43.9 [facility] Hematocrit Auto (Bld) [Volum e fraction]Ordered By: [facility]2023 Hematocrit (Bld) [Volume fraction] 32.9 % 37-47 [facility] Iron measurement (mass/mass) Ordered By: César Partida on 09-01-2023 Iron (Unsp spec) [Mass/Mass] 118 ug/dL 50-170 [facility] Laboratory - Chemistry and C hemistry - challengeOrdered By: Césarfreddy Partida on 09-01-2023 Albumin/Globulin [Mass ratio] 1.0 {ratio} 0.9-2.4 [facility] ALP [Catalytic activity/Vol] 49 U/L 45-117 [facility] ALT [Catalytic activity/Vol] 19 U/L 13-56 [facility] CO2 [Moles/Vol] 24.0 mmol/L 21.0-32.0 [facility] Cobalamin (Vitamin B12) [Mass/Vol] 1028 pg/mL 211-911 [facility] Ferritin [Mass/Vol] 18 ng/mL 8-252 [facility] Globulin (S) [Mass/Vol] 4.0 g/dL 2.2-4.2 [facility] Magnesium [Mass/Vol] 1.4 mg/dL 1.6-2.6 [facility] Urea nitrogen/Creatinine [Mass ratio] 20.6 mg/mg 10-20 [facility] Laboratory - Hematology and Cell countsOrdered By: César Partida on 09-01-2023 MCH (RBC) [Entitic mass] 30.1 pg 27.0-32.0 [facility] MCHC (RBC) [Mass/Vol] 32.2 g/dL 32-36 [facility] Platelet mean volume (Bld) [Entitic vol] 11.1 fL 6.2-12.0 [facility] Platelets (Bld) [#/Vol] 315 10*3/uL 150-450 [facility] No Panel InformationOrdered By: César Partida on 09-01-2023 Estimated GFR (MDRD) Amer 40 mL/min >60 [facility] Comment on above: GFR Calc Estimated GFR (MDRD) Non-Af Amer 33 mL/min >60 [facility] Comment on above: Non- GFR Calc Folate 15.20 ng/mL 3.1-55.4 [facility] RBC Auto (Bld) [#/Vol]Ordere d By: César Partida on 09-01-2023 RBC (Bld) [#/Vol] 3.52 10*6/uL 4.2-5.4 [facility] Serum or plasma calcium tiana urement (mass/volume)Ordered By: César Partida on 09-01-2023 Calcium [Mass/Vol] 9.0 mg/dL 8.5-10.1 [facility] Serum or plasma creatinine m easurement (mass/volume)Ordered By: César Partida on 09-01-2023 Creatinine [Mass/Vol] 1.65 mg/dL 0.55-1.02 [facility] Comment on above: The validity of the calculated GFR & GFRAA in patients over 70 years has not been determined. Clinical correlation is essential. Serum or plasma thyroid stim ulating hormone (TSH) measurement (units/volume)Ordered By: César Partida on 09-01-2023 TSH Qn 1.11 uIU/mL 0.358-3.74 [facility] Serum or plasma urea nitroge n measurement (mass/volume)Ordered By: César Partida on 09-01-2023 Urea nitrogen [Mass/Vol] 34 mg/dL 7-18 [facility] Thin prep Papanicolaou smear with manual screeningOrdered By: César Partida on 09-01-2023 Thin prep Papanicolaou smear with manual screening 3.9 g/dL 3.2-5.0 [facility] Thin prep Papanicolaou smear with manual screening 21 U/L 15-37 [facility] Thin prep Papanicolaou smear with manual screening 6 5-15 [facility] XR WRIST GENERAL 3V PA/LAT/O BL RIGHTon 03-13-2023 [facility] Absolute lymphocyte countOrd ered By: Maria Isabel Fariaine on 01-08-2023 Lymphocytes Auto (Unsp spec) [#/Vol] 2.74 10*3/uL 0.83-4.51 [facility] Basophil percentageOrdered B y: Maria Isabel Allan on 01-08-2023 Basophil percentage 10-25 SEEN /hpf 0-5 [facility] Basophils/100 WBC (Bld) 0.5 % 0-[address] [facility] Bilirubin [Mass/Vol] 0.30 mg/dL 0.20-1.00 [facility] Comment on above: For patients on eltr ombopag therapy, use of Dimension [place] TBIL is not recommended. Chloride [Moles/Vol] 108 mmol/L 98-107 [facility] Eosinophils/100 WBC (Bld) 2.0 % 0-5 [facility] Glucose [Mass/Vol] 164 mg/dL 74-106 [facility] Comment on above: Fasting Glucose resu lt greater than or equal to 126 mg/dL suggests DIABETES MELLITUS per A.D.A. criteria. Neutrophils (Bld) [#/Vol] 6.1 10*3/uL 2.0-7.7 [facility] Neutrophils/100 WBC (Bld) 61.0 % 47-70 [facility] Potassium [Moles/Vol] 3.1 mmol/L 3.5-5.1 [facility] Protein [Mass/Vol] 7.9 g/dL 6.4-8.2 [facility] Sodium [Moles/Vol] 138 mmol/L 136-145 [facility] WBC (Bld) [#/Vol] 9.9 10*3/uL 4.4-11.0 [facility] Bilirubin Test strip Ql (U)O rdered By: Maria Isabel Lemus on 01-08-2023 Bilirubin Ql (U) Negative Negative [facility] Blood erythrocytes count (nu mber/volume)Ordered By: Maria Isabel Lemus on 01-08-2023 RBC (Bld) [#/Vol] 3.46 10*6/uL 4.2-5.4 [facility] Blood hemoglobin measurement (mass/volume)Ordered By: Maria Isabel Lemus on 01-08-2023 Hemoglobin (Bld) [Mass/Vol] 10.5 g/dL 12.0-15.0 [facility] Blood lymphocytes/100 leukoc ytesOrdered By: Maria Isabel Lemus on 01-08-2023 Lymphocytes/100 WBC (Bld) 27.6 % 19-41 [facility] Blood monocytes/100 leukocyt esOrdered By: Maria Isabel Lemus on 01-08-2023 Monocytes/100 WBC (Bld) 8.4 % 0-10 [facility] Blood platelet mean volumeOr dered By: Maria Isabel Lemus on 01-08-2023 Platelet mean volume (Bld) [Entitic vol] 11.1 fL 6.2-12.0 [facility] Determination of erythrocyte mean corpuscular volume (MCV)Ordered By: Maria Isabel Lemus on 01-08-2023 MCV (RBC) [Entitic vol] 89.9 fL 81-99 [facility] Direct bilirubinOrdered By: Maria Isabel Lemus on 01-08-2023 Bilirubin.direct [Mass/Vol] 0.10 mg/dL 0.00-0.30 [facility] Hematocrit Auto (Bld) [Volum e fraction]Ordered By: Maria Isabel Lemus on 01-08-2023 Hematocrit (Bld) [Volume fraction] 31.1 % 37-47 [facility] Ketones Test strip Ql (U)Ord ered By: Maria Isabel Lemus on 01-08-2023 Ketones Ql (U) Negative Negative [facility] Laboratory - Chemistry and C hemistry - challengeOrdered By: Maria Isabel Lemus on 01-08-2023 ALP [Catalytic activity/Vol] 82 U/L 45-117 [facility] ALT [Catalytic activity/Vol] 20 U/L 13-56 [facility] CO2 [Moles/Vol] 15.0 mmol/L 21.0-32.0 [facility] Globulin (S) [Mass/Vol] 4.2 g/dL 2.2-4.2 [facility] Magnesium [Mass/Vol] 0.6 mg/dL 1.6-2.6 [facility] Comment on above: Critical Result(s) C alled at: 14:57:20 01/08/2023 by: David Boyce RN (ER). Results read back by same. Urea nitrogen/Creatinine [Mass ratio] 10.7 mg/mg 10-20 [facility] Laboratory - Hematology and Cell countsOrdered By: Maria Isabel Lemus on 01-08-2023 Erythrocyte distribution width (RBC) [Entitic vol] 45.9 fL 35.1-43.9 [facility] Erythrocyte distribution width (RBC) [Ratio] 14.2 % 11.6-14.6 [facility] Immature granulocytes/100 WBC (Bld) 0.500 % 0.0-0.9 [facility] Comment on above: IG% - Immature Granu locytes (promyelocytes, myelocytes and metamyelocytes) > 1% indicates that a LEFT SHIFT is Present. MCH (RBC) [Entitic mass] 30.3 pg 27.0-32.0 [facility] Nucleated RBC/100 WBC (Bld) [Ratio] 0 % 0-5 [facility] MCHC Auto (RBC) [Mass/Vol]Or dered By: Maria Isabel Lemus on 01-08-2023 MCHC (RBC) [Mass/Vol] 33.8 g/dL 32-36 [facility] Mucus LM Ql (Urine sed)Order ed By: Maria Isabel Lemus on 01-08-2023 Mucus Ql (Urine sed) 0 SEEN /hpf [facility] Nitrite Test strip Ql (U)Ord ered By: Maria Isabel Lemus on 01-08-2023 Nitrite Ql (U) Negative Negative [facility] No Panel InformationOrdered By: Maria Isabel Lemus on 01-08-2023 Urine Transitional Epithelial Cells 0-5 SEEN /hpf 0-5 [facility] Estimated Creatinine Clearance Calc 15.73 ml/min [facility] Estimated GFR (MDRD) Amer 19 mL/min >60 [facility] Comment on above: GFR Calc Estimated GFR (MDRD) Non-Af Amer 16 mL/min >60 [facility] Comment on above: Non- GFR Calc Platelets bldOrdered By: Josi Lemus on 01-08-2023 Platelets (Bld) [#/Vol] 341 10*3/uL 150-450 [facility] Protein Test strip Ql (U)Ord ered By: Maria Isabel Lemus on 01-08-2023 Protein Ql (U) 30 mg/dl Negative [facility] Serum or plasma albumin tiana urement (mass/volume)Ordered By: Maria Isabel Lemus on 01-08-2023 Albumin [Mass/Vol] 3.7 g/dL 3.2-5.0 [facility] Serum or plasma calcium tiana urement (mass/volume)Ordered By: Maria Isabel Lemus on 01-08-2023 Calcium [Mass/Vol] 7.5 mg/dL 8.5-10.1 [facility] Serum or plasma creatinine m easurement (mass/volume)Ordered By: Maria Isabel Lemus on 01-08-2023 Creatinine [Mass/Vol] 3.08 mg/dL 0.55-1.02 [facility] Comment on above: The validity of the calculated GFR & GFRAA in patients over 70 years has not been determined. Clinical correlation is essential. Serum or plasma urea nitroge n measurement (mass/volume)Ordered By: Maria Isabel Lemus on 01-08-2023 Urea nitrogen [Mass/Vol] 33 mg/dL 7-18 [facility] Squamous epithelial cells de tection in urine sediment by light microscopyOrdered By: Maria Isabel Lemus on 01-08-2023 Epithelial cells.squamous LM Ql (Urine sed) 0-5 SEEN /hpf 5-10 [facility] Thin prep Papanicolaou smear with manual screeningOrdered By: Maria Isabel Lemus on 01-08-2023 Thin prep Papanicolaou smear with manual screening 18 U/L 15-37 [facility] Thin prep Papanicolaou smear with manual screening 15 5-15 [facility] Urine blood detectionOrdered By: Maria Isabel Lemus on 01-08-2023 RBC Ql (U) 25 /ul Negative [facility] RBC Ql (U) 0-5 SEEN /hpf 0-5 [facility] Urine clarityOrdered By: Josi Lemus on 01-08-2023 Clarity (U) Sl. Cloudy Clear [facility] Urine color determinationOrd ered By: Maria Isabel Lemus on 01-08-2023 Color (U) Yellow Yellow [facility] Urine glucose detectionOrder ed By: Maria Isabel Lemus on 01-08-2023 Glucose Ql (U) Normal mg/dl Normal [facility] Urine leukocyte esterase det ection by dipstickOrdered By: Maria Isabel Lemus on 01-08-2023 Leukocyte esterase Test strip Ql (U) 500 /ul Negative [facility] Urine pHOrdered By: Maria Isabel Lemus on 01-08-2023 pH (U) 6.0 [pH] 5.0 - 8.0 [facility] Urine sediment bacteria coun t by microscopy (number/high power field)Ordered By: Maria Isabel Lemus on 01-08-2023 Bacteria LM.HPF (Urine sed) [#/Area] 1 /[HPF] None Seen [facility] Urine specific gravity measu rementOrdered By: Maria Isabel Lemus on 01-08-2023 Specific gravity (U) [Rel density] 1.020 1.002-1.030 [facility] Urobilinogen Auto test strip Ql (U)Ordered By: Maria Isabel Lemus on 01-08-2023 Urobilinogen Ql (U) Normal mg/dl Normal [facility] CBC W Auto Differential pane l (Bld)on 01-07-2023 Basophils (Bld) [#/Vol] 0.06 10*3/uL <0.11 k/uL [facility] Basophils/100 WBC (Bld) 0.5 % C [facility] Differential cell count method Nom (Bld) Auto [facility] Eosinophils (Bld) [#/Vol] 0.11 10*3/uL <0.46 k/uL [facility] Eosinophils/100 WBC (Bld) 1.0 % [facility] Erythrocyte distribution width (RBC) [Ratio] 14.3 % 11.5 - 15.0 % [facility] Hematocrit (Bld) [Volume fraction] 35.5 % Low 36.0 - 46.0 % [facility] Hemoglobin (Bld) [Mass/Vol] 11.8 g/dL 11.5 - 15.5 g/dL [facility] Immature granulocytes (Bld) [#/Vol] 0.06 10*3/uL <0.10 k/uL [facility] Immature granulocytes/100 WBC (Bld) 0.5 % [facility] Lymphocytes (Bld) [#/Vol] 2.45 10*3/uL 1.00 - 4.00 k/uL [facility] Lymphocytes/100 WBC (Bld) 22.4 % [facility] MCH (RBC) [Entitic mass] 29.8 pg 26.0 - 34.0 pg [facility] MCHC (RBC) [Mass/Vol] 33.2 g/dL 30.5 - 36.0 g/dL [facility] MCV (RBC) [Entitic vol] 89.6 fL 80.0 - 100.0 fL [facility] Monocytes (Bld) [#/Vol] 0.82 10*3/uL <0.87 k/uL [facility] Monocytes/100 WBC (Bld) 7.5 % [facility] Neutrophils (Bld) [#/Vol] 7.44 10*3/uL 1.45 - 7.50 k/uL [facility] Neutrophils/100 WBC (Bld) 68.1 % [facility] Nucleated RBC (Bld) [#/Vol] <0.01 k/uL [facility] Nucleated RBC/100 WBC (Bld) [Ratio] 0.0 /100 WBC [facility] Platelet mean volume (Bld) [Entitic vol] 11.0 fL 9.0 - 12.7 fL [facility] Platelets (Bld) [#/Vol] 384 10*3/uL 150 - 400 k/uL [facility] RBC (Bld) [#/Vol] 3.96 10*6/uL 3.90 - 5.2 0 m/uL [facility] WBC (Bld) [#/Vol] 10.94 10*3/uL 3.70 - 11.00 k/uL [facility] Absolute lymphocyte countOrd ered By: Daniel Coles on 12-31-2022 Lymphocytes Auto (Unsp spec) [#/Vol] 2.63 10*3/uL 0.83-4.51 [facility] Basophil percentageOrdered B y: Daniel Coles on 12-31-2022 Basophils/100 WBC (Bld) 0.7 % 0-1 [facility] Chloride [Moles/Vol] 125 mmol/L 98-107 [facility] Eosinophils/100 WBC (Bld) 4.7 % 0-5 [facility] Glucose [Mass/Vol] 105 mg/dL 74-106 [facility] Comment on above: Fasting Glucose resu lt from 100 to 125 mg/dL suggests IMPAIRED HOMEOSTASIS per A.D.A. criteria. Neutrophils (Bld) [#/Vol] 3.8 10*3/uL 2.0-7.7 [facility] Neutrophils/100 WBC (Bld) 49.8 % 47-70 [facility] Potassium [Moles/Vol] 4.7 mmol/L 3.5-5.1 [facility] Sodium [Moles/Vol] 146 mmol/L 136-145 [facility] WBC (Bld) [#/Vol] 7.5 10*3/uL 4.4-11.0 [facility] Blood erythrocytes count (nu mber/volume)Ordered By: Daniel Coles on 12-31-2022 RBC (Bld) [#/Vol] 3.23 10*6/uL 4.2-5.4 [facility] Blood hemoglobin measurement (mass/volume)Ordered By: Daniel Coles on 12-31-2022 Hemoglobin (Bld) [Mass/Vol] 9.5 g/dL 12.0-15.0 [facility] Blood lymphocytes/100 leukoc ytesOrdered By: Daniel Coles on 12-31-2022 Lymphocytes/100 WBC (Bld) 35.0 % 19-41 [facility] Blood monocytes/100 leukocyt esOrdered By: Daniel Coles on 12-31-2022 Monocytes/100 WBC (Bld) 9.3 % 0-10 [facility] Blood platelet mean volumeOr dered By: Daniel Coles on 12-31-2022 Platelet mean volume (Bld) [Entitic vol] 11.9 fL 6.2-12.0 [facility] Determination of erythrocyte mean corpuscular volume (MCV)Ordered By: Daniel Coles on 12-31-2022 MCV (RBC) [Entitic vol] 96.3 fL 81-99 [facility] Comment on above: Delta: 86.4 on 12/26 Hematocrit Auto (Bld) [Volum e fraction]Ordered By: Daniel Coles on 12-31-2022 Hematocrit (Bld) [Volume fraction] 31.1 % 37-47 [facility] INR in Blood by Coagulation assayOrdered By: Daniel Coles on 12-31-2022 INR Coag (Bld) [Relative time] 1.0 {INR} [facility] Laboratory - Chemistry and C hemistry - challengeOrdered By: Daniel Coles on 12-31-2022 CO2 [Moles/Vol] 16.0 mmol/L 21.0-32.0 [facility] Urea nitrogen/Creatinine [Mass ratio] 11.3 mg/mg 10-20 [facility] Laboratory - CoagulationOrde red By: Daniel Coles on 12-31-2022 PT Coag (PPP) [Time] 13.6 s 11.7-14.9 [facility] Laboratory - Hematology and Cell countsOrdered By: Daniel Coles on 12-31-2022 Erythrocyte distribution width (RBC) [Entitic vol] 51.6 fL 35.1-43.9 [facility] Erythrocyte distribution width (RBC) [Ratio] 14.6 % 11.6-14.6 [facility] Immature granulocytes/100 WBC (Bld) 0.500 % 0.0-0.9 [facility] Comment on above: IG% - Immature Granu locytes (promyelocytes, myelocytes and metamyelocytes) > 1% indicates that a LEFT SHIFT is Present. MCH (RBC) [Entitic mass] 29.4 pg 27.0-32.0 [facility] Nucleated RBC/100 WBC (Bld) [Ratio] 0 % 0-5 [facility] MCHC Auto (RBC) [Mass/Vol]Or dered By: Daniel Coles on 12-31-2022 MCHC (RBC) [Mass/Vol] 30.5 g/dL 32-36 [facility] Comment on above: Delta: 34.0 on 12/26 No Panel InformationOrdered By: Daniel Coles on 12-31-2022 Estimated Creatinine Clearance Calc 24.97 ml/min [facility] Estimated GFR (MDRD) Amer 33 mL/min >60 [facility] Comment on above: GFR Calc Estimated GFR (MDRD) Non-Af Amer 27 mL/min >60 [facility] Comment on above: Non- GFR Calc Platelets bldOrdered By: Dara Coles on 12-31-2022 Platelets (Bld) [#/Vol] 228 10*3/uL 150-450 [facility] Serum or plasma calcium tiana urement (mass/volume)Ordered By: Daniel Coles on 12-31-2022 Calcium [Mass/Vol] 7.4 mg/dL 8.5-10.1 [facility] Serum or plasma creatinine m easurement (mass/volume)Ordered By: Daniel Coles on 12-31-2022 Creatinine [Mass/Vol] 1.94 mg/dL 0.55-1.02 [facility] Comment on above: The validity of the calculated GFR & GFRAA in patients over 70 years has not been determined. Clinical correlation is essential. Serum or plasma urea nitroge n measurement (mass/volume)Ordered By: Daniel Coles on 12-31-2022 Urea nitrogen [Mass/Vol] 22 mg/dL 7-18 [facility] Thin prep Papanicolaou smear with manual screeningOrdered By: Daniel Coles on 12-31-2022 Thin prep Papanicolaou smear with manual screening 5 5-15 [facility] Laboratory - CoagulationOrde red By: Sarath Ceja on 12-27-2022 aPTT Coag (Bld) [Time] 66.4 s 24.1-36.2 [facility] Absolute lymphocyte countOrd ered By: Brain Doherty on 12-26-2022 Lymphocytes Auto (Unsp spec) [#/Vol] 2.21 10*3/uL 0.83-4.51 [facility] Basophil percentageOrdered B y: Sarath Ceja on 12-26-2022 Cholesterol [Mass/Vol] 97 mg/dL <200 [facility] Comment on above: <200 mg/dL Desirable 200-240 mg/dL Borderline >240 mg/dL High Risk Triglyceride [Mass/Vol] 75 mg/dL <199 [facility] Comment on above: The drugs N-Acetylcy steine and Metamizole may falsely depress this assay.Serum Triglycerides Reference Interval Normal <150 mg/dL Borderline high 150 - 199 mg/dL High 200 - 499 mg/dL Very High > or = 500 mg/dL Basophil percentageOrdered B y: Brain Doherty on 12-26-2022 Basophils/100 WBC (Bld) 0.4 % 0-1 [facility] Chloride [Moles/Vol] 103 mmol/L 98-107 [facility] Eosinophils/100 WBC (Bld) 1.7 % 0-5 [facility] Glucose [Mass/Vol] 94 mg/dL 74-106 [facility] Neutrophils (Bld) [#/Vol] 6.0 10*3/uL 2.0-7.7 [facility] Neutrophils/100 WBC (Bld) 65.0 % 47-70 [facility] Potassium [Moles/Vol] 2.6 mmol/L 3.5-5.1 [facility] Comment on above: Critical Result(s) C alled at: 14:26:04 12/26/2022 by: Rena Oro. Results read back by same. Sodium [Moles/Vol] 136 mmol/L 136-145 [facility] WBC (Bld) [#/Vol] 9.3 10*3/uL 4.4-11.0 [facility] Blood erythrocytes count (nu mber/volume)Ordered By: Brain Doherty on 12-26-2022 RBC (Bld) [#/Vol] 3.98 10*6/uL 4.2-5.4 [facility] Blood hemoglobin measurement (mass/volume)Ordered By: Brain Doherty on 12-26-2022 Hemoglobin (Bld) [Mass/Vol] 11.7 g/dL 12.0-15.0 [facility] Blood lymphocytes/100 leukoc ytesOrdered By: Brain Doherty on 12-26-2022 Lymphocytes/100 WBC (Bld) 23.9 % 19-41 [facility] Blood monocytes/100 leukocyt esOrdered By: Brain Doherty on 12-26-2022 Monocytes/100 WBC (Bld) 8.4 % 0-10 [facility] Blood platelet mean volumeOr dered By: Brain Doherty on 12-26-2022 Platelet mean volume (Bld) [Entitic vol] 11.9 fL 6.2-12.0 [facility] Determination of erythrocyte mean corpuscular volume (MCV)Ordered By: Brain Doherty on 12-26-2022 MCV (RBC) [Entitic vol] 86.4 fL 81-99 [facility] Hematocrit Auto (Bld) [Volum e fraction]Ordered By: Brain Doherty on 12-26-2022 Hematocrit (Bld) [Volume fraction] 34.4 % 37-47 [facility] Laboratory - Chemistry and C hemistry - challengeOrdered By: Brain Doherty on 12-26-2022 CO2 [Moles/Vol] 18.0 mmol/L 21.0-32.0 [facility] Urea nitrogen/Creatinine [Mass ratio] 14.5 mg/mg 10-20 [facility] Laboratory - CoagulationOrde red By: Brain Doherty on 12-26-2022 aPTT Coag (Bld) [Time] 25.2 s 24.1-36.2 [facility] Laboratory - Hematology and Cell countsOrdered By: Brain Doherty on 12-26-2022 Erythrocyte distribution width (RBC) [Entitic vol] 40.9 fL 35.1-43.9 [facility] Erythrocyte distribution width (RBC) [Ratio] 13.1 % 11.6-14.6 [facility] Immature granulocytes/100 WBC (Bld) 0.600 % 0.0-0.9 [facility] Comment on above: IG% - Immature Granu locytes (promyelocytes, myelocytes and metamyelocytes) > 1% indicates that a LEFT SHIFT is Present. MCH (RBC) [Entitic mass] 29.4 pg 27.0-32.0 [facility] Nucleated RBC/100 WBC (Bld) [Ratio] 0 % 0-5 [facility] MCHC Auto (RBC) [Mass/Vol]Or dered By: Brain Doherty on 12-26-2022 MCHC (RBC) [Mass/Vol] 34.0 g/dL 32-36 [facility] No Panel InformationOrdered By: Sarath Ceja on 12-26-2022 Troponin I High Sensitivity 27 pg/mL 3.0-54.0 [facility] Comment on above: Please Note: [place] t Units and Gender Specific Reference Ranges. For more information see Policy Stat Procedure [place] High Sensitivity Troponin (TNIH) and attachments. No Panel InformationOrdered By: Brain Doherty on 12-26-2022 Estimated Creatinine Clearance Calc 6.99 ml/min [facility] Estimated GFR (MDRD) Amer 10 mL/min >60 [facility] Comment on above: GFR Calc Estimated GFR (MDRD) Non-Af Amer 8 mL/min >60 [facility] Comment on above: Non- GFR Calc Troponin I High Sensitivity 20 pg/mL 3.0-54.0 [facility] Comment on above: Please Note: [place] t Units and Gender Specific Reference Ranges. For more information see Policy Stat Procedure [place] High Sensitivity Troponin (TNIH) and attachments. Platelets bldOrdered By: Nathalie Doherty on 12-26-2022 Platelets (Bld) [#/Vol] 278 10*3/uL 150-450 [facility] Serum or plasma calcium tiana urement (mass/volume)Ordered By: Brain Doherty on 12-26-2022 Calcium [Mass/Vol] 8.4 mg/dL 8.5-10.1 [facility] Serum or plasma cholesterol in HDL measurement (mass/volume)Ordered By: Sarath Ceja on 12-26-2022 Cholesterol in HDL [Mass/Vol] 46 mg/dL >40 [facility] Comment on above: The drugs N-Acetylcy steine and Metamizole may falsely depress this assay. Reference Range HDL <40 mg/dL Low HDL Cholesterol HDL >or= 60 mg/dL High HDL Cholesterol Serum or plasma cholesterol in VLDL measurement (mass/volume)Ordered By: Sarath Ceja on 12-26-2022 Cholesterol in VLDL [Mass/Vol] 15 mg/dL 5-40 [facility] Serum or plasma creatinine m easurement (mass/volume)Ordered By: Brain Doherty on 12-26-2022 Creatinine [Mass/Vol] 5.53 mg/dL 0.55-1.02 [facility] Comment on above: The validity of the calculated GFR & GFRAA in patients over 70 years has not been determined. Clinical correlation is essential. Serum or plasma low density lipoprotein (LDL) cholesterol measurement (mass/volume)Ordered By: Sarath Ceja on 12-26-2022 Cholesterol in LDL [Mass/Vol] 36 mg/dL 0-130 [facility] Serum or plasma urea nitroge n measurement (mass/volume)Ordered By: Brain Doherty on 12-26-2022 Urea nitrogen [Mass/Vol] 80 mg/dL 7-18 [facility] Thin prep Papanicolaou smear with manual screeningOrdered By: Brain Doherty on 12-26-2022 Thin prep Papanicolaou smear with manual screening 15 5-15 [facility] Absolute lymphocyte counton 12-17-2021 Lymphocytes Auto (Unsp spec) [#/Vol] 2.49 10*3/uL 0.83-4.51 [facility] Work Phone: Basophil percentageon 2021 Basophils/100 WBC (Bld) 0.5 % 0-1 [facility] Work Phone: Chloride [Moles/Vol] 104 mmol/L 98-107 [facility] Work Phone: Eosinophils/100 WBC (Bld) 1.9 % 0-5 [facility] Work Phone: Glucose [Mass/Vol] 91 mg/dL 74-106 [facility] Work Phone: Neutrophils (Bld) [#/Vol] 4.4 10*3/uL 2.0-7.7 [facility] Work Phone: Neutrophils/100 WBC (Bld) 56.2 % 47-70 [facility] Work Phone: Potassium [Moles/Vol] 4.2 mmol/L 3.5-5.1 [facility] Work Phone: Sodium [Moles/Vol] 139 mmol/L 136-145 [facility] Work Phone: WBC (Bld) [#/Vol] 7.9 10*3/uL 4.4-11.0 [facility] Work Phone: Blood erythrocytes count (nu mber/volume)on 12-17-2021 RBC (Bld) [#/Vol] 3.90 10*6/uL 4.2-5.4 [facility] Work Phone: Blood hemoglobin measurement (mass/volume)on 12-17-2021 Hemoglobin (Bld) [Mass/Vol] 11.3 g/dL 12.0-15.0 [facility] Work Phone: Blood lymphocytes/100 leukoc yteson 12-17-2021 Lymphocytes/100 WBC (Bld) 31.5 % 19-41 [facility] Work Phone: Blood monocytes/100 leukocyt eson 12-17-2021 Monocytes/100 WBC (Bld) 9.4 % 0-10 [facility] Work Phone: Blood platelet mean volumeon 12-17-2021 Platelet mean volume (Bld) [Entitic vol] 10.7 fL 6.2-12.0 [facility] Work Phone: Determination of erythrocyte mean corpuscular volume (MCV)on 12-17-2021 MCV (RBC) [Entitic vol] 91.8 fL 81-99 [facility] Work Phone: Hematocrit Auto (Bld) [Volum e fraction]on 12-17-2021 Hematocrit (Bld) [Volume fraction] 35.8 % 37-47 [facility] Work Phone: Laboratory - Chemistry and C hemistry - challengeon 12-17-2021 CO2 [Moles/Vol] 25.0 mmol/L 21.0-32.0 [facility] Work Phone: Natriuretic peptide B (Bld) [Mass/Vol] 12.2 pg/mL 0-100 [facility] Work Phone: Urea nitrogen/Creatinine [Mass ratio] 15.3 mg/mg 10-20 [facility] Work Phone: Laboratory - Hematology and Cell countson 12-17-2021 Erythrocyte distribution width (RBC) [Entitic vol] 46.8 fL 35.1-43.9 [facility] Work Phone: Erythrocyte distribution width (RBC) [Ratio] 13.9 % 11.6-14.6 [facility] Work Phone: Immature granulocytes/100 WBC (Bld) 0.500 % 0.0-0.9 [facility] Work Phone: Comment on above: IG% - Immature Granu locytes (promyelocytes, myelocytes and metamyelocytes) > 1% indicates that a LEFT SHIFT is Present. MCH (RBC) [Entitic mass] 29.0 pg 27.0-32.0 [facility] Work Phone: Nucleated RBC/100 WBC (Bld) [Ratio] 0 % 0-5 [facility] Work Phone: MCHC Auto (RBC) [Mass/Vol]on 12-17-2021 MCHC (RBC) [Mass/Vol] 31.6 g/dL 32-36 [facility] Work Phone: No Panel Informationon 12-17 Estimated GFR (MDRD) Amer 52 mL/min >60 [facility] Work Phone: Comment on above: GFR Calc Estimated GFR (MDRD) Non-Af Amer 43 mL/min >60 [facility] Work Phone: Comment on above: Non- GFR Calc Platelets bldon 12-17-2021 Platelets (Bld) [#/Vol] 288 10*3/uL 150-450 [facility] Work Phone: Serum or plasma calcium tiana urement (mass/volume)on 12-17-2021 Calcium [Mass/Vol] 9.4 mg/dL 8.5-10.1 [facility] Work Phone: Serum or plasma creatinine m easurement (mass/volume)on 12-17-2021 Creatinine [Mass/Vol] 1.31 mg/dL 0.55-1.02 [facility] Work Phone: Comment on above: The validity of the calculated GFR & GFRAA in patients over 70 years has not been determined. Clinical correlation is essential. Serum or plasma urea nitroge n measurement (mass/volume)on 12-17-2021 Urea nitrogen [Mass/Vol] 20 mg/dL 718 [facility] Work Phone: Thin prep Papanicolaou smear with manual screeningon 12-17-2021 Thin prep Papanicolaou smear with manual screening 5-15 [facility] Work Phone: ANES POSTPROC EVALon 021 ANES POSTPROC EVAL HNO ID: [id number] Author: Jojo Carlson MD Service: Anesthesiology Author Type: Anesthesiologist Type: Anesthesia Postprocedure Evaluation Filed: 02/21/2021 1:36 PM Note Text: POST ANESTHESIA EVALUATION NOTE : 1955 Procedure Summary Date: 02/21/21 Room / Location: [place] [address] / [place] Anesthesia Start: 1019 Anesthesia Stop: 1211 Procedures: ARTHROPLASTY CARPOMETACARPAL JOINTS (Left Hand) INCISION EXTENSOR TENDON SHEATH WRIST (Left Wrist) RELEASE TRIGGER FINGER (Left Finger middle) Diagnosis: Localized primary osteoarthritis of left hand De Quervain's tenosynovitis, left Trigger middle finger of left hand Surgeons: Brain Ivy MD Responsible Provider: Jojo Carlson MD Anesthesia Type: general, regional ASA Status: 3 Anesthesia Type: general, regional Last vitals Vitals Value Taken Time BP 134/68 02/21/21 1245 Temp 36.4 ?C (97.5 ?F) 02/21/21 1210 Pulse 67 02/21/21 1250 Resp 13 02/21/21 1250 SpO2 91 % 02/21/21 1250 Vitals shown include unvalidated device data. Post Anesthesia Patient Status Patient Evaluation: PACU. PACU/ICU Patient Condition: stable. Anticipated Disposition: phase 2 then home. Neurological Status: aware and responsive. Pulmonary Status: breathing comfortably on room air Airway Control: returned to baseline unsupported. Cardiovascular Status: stable. Pain Management: clinically adequate - multimodal analgesia pain management approach Postoperative Hydration: acceptable. Intraoperative Events: no significant anesthesia events Post Operative Nausea/Vomiting Status: no significant post operative nausea or vomiting Anesthetic Observations: Recommendation: continue current plan of care. No complications documented. SIGNATURE: Jojo Carlson MD PATIENT NAME: Ty Yu DATE: February 21, 2021 TIME: 1:35 PM CSN: [id number] [facility] ANES PRE-OPon 02-21-2021 ANES PRE-OP HNO ID: [id number] Author: Jojo Carlson MD Service: Anesthesiology Author Type: Anesthesiologist Type: Anesthesia Preprocedure Evaluation Filed: 02/21/2021 9:54 AM Note Text: ANESTHESIOLOGY DAY OF SURGERY NOTE : 1955 Procedure(s) (LRB): ARTHROPLASTY CARPOMETACARPAL JOINTS (Left) INCISION EXTENSOR TENDON SHEATH WRIST (Left) RELEASE TRIGGER FINGER (Left) Surgeon(s): Brain Ivy MD Estimated body mass index is 26.79 kg/m? as calculated from the following: Height as of 02/12/21: 165.1 cm (5' 5). Weight as of 02/12/21: 73 kg (161 lb). Most recent hematocrit and potassium results: Hematocrit 33.9 01/15/2021 Potassium 4.6 02/12/2021 Relevant Problems CARDIO (+) Bilateral carotid artery disease (HCC) (+) Bilateral carotid artery stenosis (+) 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 (+) Essential hypertension (+) Migraine without aura and without status migrainosus, not intractable (+) Moderate pulmonary hypertension (HCC) (+) Paroxysmal atrial fibrillation (HCC) ENDO (+) Type 2 diabetes mellitus without complication, without long-term current use of insulin (HCC) GI (+) Gastroesophageal reflux disease without esophagitis (+) Hiatal hernia -RENAL (+) Stage 3b chronic kidney disease (HCC) NEURO-PSYCH (+) History of shingles PULMONARY (+) History of shingles Other (+) Arthritis of left hand (+) Hip arthritis I - PHYSICAL EVALUATION AIRWAY Patient intubated: No. Mallampati: II. TM distance: >3 FB. Neck ROM: full ROM without neurological symptoms. Mouth opening: adequate. Short neck: no. Thick neck: no DENTAL Dental findings: teeth intact. Additional exam findings: no II - ANESTHESIA PLAN ASA Score: 3 Anesthetic Plan: general and regional The patient is not a current smoker. NPO Status: adequate Monitoring plan: Standard ASA. Postoperative analgesic plan: parenteral or oral opioids, peripheral nerve block and multimodal analgesia. Anesthetic Risks, Benefits, Alternatives, Personnel Discussed. Consent obtained from: patient.Patient / Surrogate agrees to blood products: yes DNR status not reviewed with patient and/or family prior to surgery. Significant changes in the patient condition since the History and Physical, not otherwise documented in primary service progress note: no. Potential Anesthesia issues that may suggest increased risk of complications or contraindication to planned procedure: none. Vitals Value Taken Time BP 139/72 02/21/21934 Pulse Resp 16 02/21/21934 Temp 36.2 ?C (97.2 ?F) 02/21/21934 SpO2 99 % 02/21/21934 Facility-Administered Medications as of 02/21/2021 Medication Dose Route Frequency - lidocaine 10 mg/mL (1 %) 1-2 mg injection (XYLOCAINE) 0.1-0.2 mL INTRADERMAL PRN - lactated ringers iv infusion 5-30 mL/hr INTRAVENOUS CONTINUOUS - ceFAZolin iv piggyback 2 g in D5W (iso-osmotic) 100 mL (ANCEF) 2 g INTRAVENOUS Pre-Op Once - midazolam (PF) 2 mg injection (VERSED) 2 mg INTRAVENOUS Pre-Op Once Outpatient Medications as of 02/21/2021 Medication Sig - escitalopram oxalate (LEXAPRO) 20 mg tablet Take 20 mg by mouth once daily. - POTASSIUM ORAL Take by mouth as directed. - dilTIAZem CD (CARTIA XT) 180 mg 24 hr capsule Take 1 capsule by mouth once daily. - ezetimibe (ZETIA) 10 mg tablet Take 1 tablet by mouth once daily. - Fenofibrate (LOFIBRA) 54 mg tablet Take 1 tablet by mouth once daily. - pantoprazole DR (PROTONIX) 40 mg tablet Take 1 tablet by mouth once daily. - cholecalciferol, vitamin D3, (VITAMIN D3 ORAL) Take by mouth once daily. - MAGNESIUM ORAL Take by mouth. - Ferrous Sulfate (SLOW FE) 142 mg (45 mg iron) TbER Take 1 tablet by mouth once daily. - aspirin, enteric coated (ADULT LOW DOSE ASPIRIN) 81 mg EC tablet Take 1 tablet by mouth once daily. - memantine (NAMENDA) 5 mg tablet Take 5 mg by mouth twice daily. - atorvastatin (LIPITOR) 80 mg tablet Take 1 tablet by mouth daily at bedtime. For cholesterol. - fluticasone (FLONASE) 50 mcg/actuation nasal spray Use 1 Phoenix in each nostril once daily. Rinse mouth after use. - sucralfate (CARAFATE) 1 gram tablet Take 1 tablet by mouth three times daily as needed. - mirtazapine (REMERON) 7.5 mg tablet Take 1 tablet by mouth daily at bedtime. (Patient not taking: Reported on 02/12/2021 ) - ondansetron orally disintegrating (ZOFRAN ODT) 4 mg disintegrating tablet Take 1 tablet by mouth every 8 hours as needed for Nausea/Vomiting. (Patient not taking: Reported on 02/12/2021 ) - EPINEPHrine (EPIPEN 2-ESTEFANIA) 0.3 mg/0.3 mL auto-injector Inject 0.3 mL intramuscularly as needed. - nitroglycerin sublingual (NITROSTAT) 0.4 mg SL tablet Dissolve 1 tablet under the tongue every 5 minutes as needed for Chest Pain. - Lancets lancets Test blood sugar(s) 1 times daily. Dx: Other DM Code E11.9, Insulin: No - blood sugar diagnostic (BLOOD GLUCOSE TEST) test strip T (more content not included)... [facility] NURSING PROGon 02-21-2021 NURSING PROG HNO ID: [id number] Author: Lucero Alaniz RN Service: ? Author Type: Registered Nurse Type: Nursing Progress Note Filed: 02/21/2021 10:20 AM Note Text: Dr. Carlson at bedside for Left axillary nerve block. RN at bedside, pt monitored throughout, BP 139/72 Temp 36.2 ?C (97.2 ?F) (Temporal Artery) Resp 16 LMP 05/22/2006 SpO2 99% . Pt tolerated procedure without difficulty. [facility] OPERATIVE NOon 02-21-2021 OPERATIVE NO HNO ID: [id number] Author: Brain Ivy MD Service: Orthopaedic Surgery Author Type: Physician Type: Operative Report Filed: 02/21/2021 12:37 PM Note Text: OPERATIVE/PROCEDURE REPORT ? LOG ID: [id number] Surgery/Procedure Date: 02/21/2021 Incision/Procedure Start Time: 10:35 AM Incision Close/Procedure End Time: 11:56 AM Surgeon(s)/Procedurali st(s) and Pan Devulcanizer Helper(s): Surgeon(s) and Role: * Brain Ivy MD - Primary Physician Pan Devulcanizer Helper: Preeti Narvaez PA-C ? Procedure(s): Left thumb, CMC arthroplasty with ligament reconstruction and tendon interposition, palmaris longus. 2. Left, first dorsal, extensor compartment release, 3. Left, middle finger trigger release. 4. Left, palmar fasciectomy, open. ? Anesthesia: General with regional. ? Procedure Details: PROCEDURE:? On 02/21/2021, the patient was identified in the preoperative area and? marked on the Left thumb and palm accordingly.?Patient had a regional block placed per? the anesthetic team.? Pt. Received 2 g of Ancef within one hour of incision or tourniquet. Patient was placed in a supine position and placed an arm? board on the effected limb.? A well padded tourniquet was applied and set at 250 mmHg.? An appropriate time out was conducted and all were in agreement. Signed?consent form was on the chart and images were available for viewing. The upper extremity was then exsanguinated with an Esmarch bandage and the? tourniquet was applied at 250 mmHg.? A longitudinal incision was identified over? the dorsal portion of the CMC joint.? I made the incision approximately 3 cm, centered over this.? Furthermore, a palmar incision was marked over the palmaris longus tendon at the? flexure crease of the wrist.? Superficial skin incision was made with a 15 blade and this was? then bluntly dissected with Littler scissors.? I was able to identify the branches of the radial? sensory nerve and these were identified and protected with retraction throughout? the case.? Through this incision, the APL and EPB tendons were released, leaving a volar flap to prevent subluxation. The first compartment was freed entirely. I then came down through the interval of the APL and EPL tendons and? came directly down to the periosteum and divided the capsule over the top of the? joint, coming down on the trapezium.? The radial artery was identified clearly in? the proximal portion of the incision and protected throughout the case with a? Ragnell retractor.? I then painstakingly dissected the soft tissues off the? trapezium and identified all the borders of the bone including the surrounding? joint spaces.? The CMC joint showed no cartilage and sclerotic surface, bone on bone appearance. Large osteophyte in the gutter between first and second metacarpal heads as well as a large piece on the most radial side of the bone. Once the soft tissues were appropriately released from the? trapezium protecting the adjacent cartilage and soft tissues, I used a? reciprocating saw to place a scored cross in the bone quartering it.? I then? finished the osteotomies with a 1/4-inch osteotome.? I then removed, in a? piecemeal fashion, the trapezium while protecting the underlying FCR tendon.? This? was identified and shown to be in continuity.? I placed a 3-0 Tevdek suture? through the volar capsule.? I then focused my attention on preparing? the site for the tendon graft.? Starting on the dorsal surface of the thumb with? my exiting point just slightly on the volar side of the base of the metacarpal,? sequential drill bits were used to fashion the tunnel for the graft and to re-create the beak ligament.? The? positioning was to my liking and the tunnel and the joint were copiously irrigated? to remove any bony debris.? Then focused my attention on the palmar incision which? was made again superficially with a 15 blade.? The central superficial vein was? identified and ligated with bipolar, and the palmaris longus tendon was identified? and freed of any of its soft tissue adhesions.? A whip stitch was placed with a 3-? 0 Maxon suture and the tendon was divided at the wrist crease and a tendon? stripper was then passed atraumatically, retrieving an excellent palmaris graft.? Some of the muscle portion was appropriately cleaned off, and then passed the? graft around the FCR tendon in the trapeziectomy site, bringing it up through the? drill hole, affectively recreating the beak ligament.? This was tied upon itself? and secured in place with the Tevdek suture.? A number of [id number] from? the tendon were secured, and the remaining portion of the tendon was rolled into? an anchovy and secured nicely down in the trapeziectomy site, successfully? interposing the tendon and securing it in place with the previously placed Tevdek? suture in the volar capsule.? This showed a nice suspension with recreation of the? beak ligament and interpo (more content not included)... [facility] 11-10-2020 CNPN Telephone (PSYAGR) TY YU ([id number]) 1955 F NFR Date Time Provider Department 11/10/20 MALGORZATA STARK PSYAGR During your visit today, we recorded the following information about you: Niko Kirby 11/10/2020 2:18 PM Signed FAXED NEUROPSYCH REPORT TO LEO SHAH [phone] AND MAILED TO PT Allergies As of Date: 11/10/2020 Noted Allergy Reaction BEES 01/05/2014 10 - Anaphylaxis LIPITOR (ATORVASTATIN CALCIUM) 01/08/2016 17 - Myalgia PHENERGAN (PROMETHAZINE HCL) 01/25/2013 8 - GI Upset PRAVASTATIN 12/17/2017 17 - Myalgia [id number] REDUCTASE INHIBIT*12/29/2017 17 - Myalgia TRAZODONE 07/14/2018 14 - Other: See Comments Comments: Increased urine frequency Date Reviewed: 08/14/2020 Reviewed by: Regine Cadet Ma - Fully Assessed Reason for Visit: FAXED AND MAILED REPORT [Other] Prescriptions as of 11/10/2020 Sig: ONDANSETRON 4 MG DISINTEGRATI* Take 1 tablet by mouth every * EPINEPHRINE 0.3 MG/0.3 ML INJ* Inject 0.3 mL intramuscularly* SERTRALINE 100 MG TABLET Take 1 tablet by mouth daily * DONEPEZIL 5 MG TABLET Take 1 tablet by mouth daily * NYSTATIN 100,000 UNIT/ML ORAL* Take 5 mL by mouth four times* ATORVASTATIN 80 MG TABLET Take 1 tablet by mouth daily * SLOW FE 142 MG (45 MG IRON) T* Take 1 tablet by mouth once d* NITROGLYCERIN 0.4 MG SUBLINGU* Dissolve 1 tablet under the t* BUPROPION HCL SR 150 MG TABLE* Take one a day for two weeks * Patient not taking: Reported on 08/14/2020 DILTIAZEM SR 180 MG 24 HR CAP Take 1 capsule by mouth once * EZETIMIBE 10 MG TABLET Take 1 tablet by mouth once d* FENOFIBRATE 54 MG TABLET Take 1 tablet by mouth once d* FLUTICASONE PROPIONATE 50 MCG* Use 1 Phoenix in each nostril o* HYDROXYZINE HCL 25 MG TABLET TAKE 1 TABLET EVERY 4 HOURS A* PANTOPRAZOLE 40 MG TABLET,DEL* Take 1 tablet by mouth once d* ROPINIROLE ER 2 MG TABLET,EXT* Take 1 tablet by mouth daily * DOXEPIN 50 MG CAPSULE When done with 75 mg dosing t* Patient not taking: Reported on 08/14/2020 DOXEPIN 25 MG CAPSULE When done with 50 mg dose sonny* Patient not taking: Reported on 08/14/2020 LANCETS Test blood sugar(s) 1 times d* BLOOD GLUCOSE TEST STRIPS Test blood sugar(s) 1 times d* MELATONIN 5 MG CAPSULE Take 2 capsules by mouth era* SUCRALFATE 1 GRAM TABLET Take 1 tablet by mouth three * ASPIRIN 81 MG TABLET,DELAYED * Take 1 tablet by mouth once d* PROBIOTIC ORAL Take 1 tablet by mouth twice * Problem List As Of Date 11/10/2020 Noted Resolved Hip arthritis [M16.10] 04/01/2013 Essential hypertension [I10] Mixed hyperlipidemia [E78.2] RLS (restless legs syndrome) [G25.81] SUMMARY [V999.95] 05/04/2013 07/28/2017 Anxiety [F41.9] 07/05/2013 07/19/2019 Diverticulosis [K57.90] 11/16/2013 Fibromyalgia [M79.7] 11/17/2013 Ex-smoker [Z87.891] 10/19/2014 Right hip pain [M25.551] 11/07/2014 07/19/2019 Lumbar degenerative disc disease [M51.36] 12/28/2015 Gastroesophageal reflux disease without esophag*01/08/2016 Insomnia [G47.00] 01/08/2016 Multiple falls [R29.6] 01/08/2016 07/28/2017 Migraine without aura and without status migrai*07/09/2016 Coronary artery disease involving torres martinez alarcon*07/09/2016 Osteoarthritis of multiple joints [M15.9] 09/06/2016 Well adult exam [Z00.00] 06/26/2017 07/19/2019 Encounter for screening for diabetes mellitus [*06/26/2017 07/28/2017 Current use of proton pump inhibitor [Z79.899] 06/26/2017 Hiatal hernia [K44.9] 07/28/2017 Bilateral carotid artery disease (HCC) [I77.9] 12/15/2017 Type 2 diabetes mellitus without complication, *12/17/2017 Encounter for screening mammogram for breast ca*12/29/2017 07/19/2019 Current moderate episode of major depressive di*07/14/2018 Colon cancer screening [Z12.11] 07/14/2018 07/19/2019 History of shingles [Z86.19] 06/23/2004 Iron deficiency anemia [D50.9] 07/04/2019 Medication management [Z79.899] 06/01/2020 Abnormal thyroid blood test [R79.89] 06/01/2020 Foot callus [L84] 06/01/2020 Age-related osteoporosis without current pathol*06/01/[address] (HCC) [Z93.3] 06/01/2020 Stage 3b chronic kidney disease [N18.32] 06/02/2020 Unspecified dementia with behavioral disturbanc*07/21/2020 En[facility] Status:[facility] TY YU ([id number]) 1955 F NFR Date Time Provider Department 11/06/20 1:00 PM MALGORZATA STARK During your visit today, we recorded the following information about you: Malgorzata Stark, PhD 11/07/2020 3:22 PM Signed Patient seen for neuropsychological testing. Report to follow. Referring Provider: LEO SHAH [[id number]] Allergies As of Date: 11/06/2020 Noted Allergy Reaction BEES 01/05/2014 10 - Anaphylaxis LIPITOR (ATORVASTATIN CALCIUM) 01/08/2016 17 - Myalgia PHENERGAN (PROMETHAZINE HCL) 01/25/2013 8 - GI Upset PRAVASTATIN 12/17/2017 17 - Myalgia [id number]-KMA-ZUJ REDUCTASE INHIBIT*12/29/2017 17 - Myalgia TRAZODONE 07/14/2018 14 - Other: See Comments Comments: Increased urine frequency Date Reviewed: 08/14/2020 Reviewed by: Regine Cadet Ma - Fully Assessed Primary Visit Diagnosis:Dementia with behavioral disturbance, unspecified dementia type (HCC) [F03.91] Prescriptions as of 11/06/2020 Sig: ONDANSETRON 4 MG DISINTEGRATI* Take 1 tablet by mouth every * EPINEPHRINE 0.3 MG/0.3 ML INJ* Inject 0.3 mL intramuscularly* SERTRALINE 100 MG TABLET Take 1 tablet by mouth daily * DONEPEZIL 5 MG TABLET Take 1 tablet by mouth daily * NYSTATIN 100,000 UNIT/ML ORAL* Take 5 mL by mouth four times* CLOPIDOGREL 75 MG TABLET Take 1 tablet by mouth once d* ATORVASTATIN 80 MG TABLET Take 1 tablet by mouth daily * SLOW FE 142 MG (45 MG IRON) T* Take 1 tablet by mouth once d* NITROGLYCERIN 0.4 MG SUBLINGU* Dissolve 1 tablet under the t* BUPROPION HCL SR 150 MG TABLE* Take one a day for two weeks * Patient not taking: Reported on 08/14/2020 DILTIAZEM SR 180 MG 24 HR CAP Take 1 capsule by mouth once * EZETIMIBE 10 MG TABLET Take 1 tablet by mouth once d* FENOFIBRATE 54 MG TABLET Take 1 tablet by mouth once d* FLUTICASONE PROPIONATE 50 MCG* Use 1 [place] in each nostril o* HYDROXYZINE HCL 25 MG TABLET TAKE 1 TABLET EVERY 4 HOURS A* PANTOPRAZOLE 40 MG TABLET,DEL* Take 1 tablet by mouth once d* ROPINIROLE ER 2 MG TABLET,EXT* Take 1 tablet by mouth daily * DOXEPIN 50 MG CAPSULE When done with 75 mg dosing t* Patient not taking: Reported on 08/14/2020 DOXEPIN 25 MG CAPSULE When done with 50 mg dose sonny* Patient not taking: Reported on 08/14/2020 LANCETS Test blood sugar(s) 1 times d* BLOOD GLUCOSE TEST STRIPS Test blood sugar(s) 1 times d* MELATONIN 5 MG CAPSULE Take 2 capsules by mouth era* SUCRALFATE 1 GRAM TABLET Take 1 tablet by mouth three * ASPIRIN 81 MG TABLET,DELAYED * Take 1 tablet by mouth once d* PROBIOTIC ORAL Take 1 tablet by mouth twice * Problem List As Of Date 11/06/2020 Noted Resolved Hip arthritis [M16.10] 04/01/2013 Essential hypertension [I10] Mixed hyperlipidemia [E78.2] RLS (restless legs syndrome) [G25.81] SUMMARY [V999.95] 05/04/2013 07/28/2017 Anxiety [F41.9] 07/05/2013 07/19/2019 Diverticulosis [K57.90] 11/16/2013 Fibromyalgia [M79.7] 11/17/2013 Ex-smoker [Z87.891] 10/19/2014 Right hip pain [M25.551] 11/07/2014 07/19/2019 Lumbar degenerative disc disease [M51.36] 12/28/2015 Gastroesophageal reflux disease without esophag*01/08/2016 Insomnia [G47.00] 01/08/2016 Multiple falls [R29.6] 01/08/2016 07/28/2017 Migraine without aura and without status migrai*07/09/2016 Coronary artery disease involving torres martinez alarcon*07/09/2016 Osteoarthritis of multiple joints [M15.9] 09/06/2016 Well adult exam [Z00.00] 06/26/2017 07/19/2019 Encounter for screening for diabetes mellitus [*06/26/2017 07/28/2017 Current use of proton pump inhibitor [Z79.899] 06/26/2017 Hiatal hernia [K44.9] 07/28/2017 Bilateral carotid artery disease (HCC) [I77.9] 12/15/2017 Type 2 diabetes mellitus without complication, *12/17/2017 Encounter for screening mammogram for breast ca*12/29/2017 07/19/2019 Current moderate episode of major depressive di*07/14/2018 Colon cancer screening [Z12.11] 07/14/2018 07/19/2019 History of shingles [Z86.19] 06/23/2004 Iron deficiency anemia [D50.9] 07/04/2019 Medication management [Z79.899] 06/01/2020 Abnormal thyroid blood test [R79.89] 06/01/2020 Foot callus [L84] 06/01/2020 Age-related osteoporosis without current pathol*06/01/[address] (HCC) [Z93.3] 06/01/2020 Stage 3b chronic kidney disease [N18.32] 06/02/2020 Unspecified dementia with behavioral disturbanc*07/21/2020 Encounter Status:Closed by MALGORZATA STARK on 11/07/20 [facility] CNP[facility]ethany 09-28-2020 CNPN Telephone (PSYAGR) TY YU ([id number]) 1955 F NFR Date Time Provider Department 09/28/20 MALGORZATA STARK PSYAGR During your visit today, we recorded the following information about you: Niko Kirby 09/28/2020 11:30 AM Signed Insurance Company contacted: [facility] Insurance fax: Date Faxed/Called: September 28, 2020 Diagnosis Code: F03.91 CPT code (if applicable): 64685 [id number] Medical reason details/referral: NEUROPSYCH TESTING FOR DEMENTIA Authorization: Approved/NPCR Authorization number: Approval valid date range: Number of Days/Visits approved: FOLLOWS MEDICARE GUIDELINES Allergies As of Date: 09/28/2020 Noted Allergy Reaction BEES 01/05/2014 10 - Anaphylaxis LIPITOR (ATORVASTATIN CALCIUM) 01/08/2016 17 - Myalgia PHENERGAN (PROMETHAZINE HCL) 01/25/2013 8 - GI Upset PRAVASTATIN 12/17/2017 17 - Myalgia [id number] REDUCTASE INHIBIT*12/29/2017 17 - Myalgia TRAZODONE 07/14/2018 14 - Other: See Comments Comments: Increased urine frequency Date Reviewed: 08/14/2020 Reviewed by: Regine Cadet Ma - Fully Assessed Reason for Visit: Insurance Authorization [[id number]] Prescriptions as of 09/28/2020 Sig: EPINEPHRINE 0.3 MG/0.3 ML INJ* Inject 0.3 mL intramuscularly* SERTRALINE 100 MG TABLET Take 1 tablet by mouth daily * DONEPEZIL 5 MG TABLET Take 1 tablet by mouth daily * NYSTATIN 100,000 UNIT/ML ORAL* Take 5 mL by mouth four times* CLOPIDOGREL 75 MG TABLET Take 1 tablet by mouth once d* ATORVASTATIN 80 MG TABLET Take 1 tablet by mouth daily * SLOW FE 142 MG (45 MG IRON) T* Take 1 tablet by mouth once d* NITROGLYCERIN 0.4 MG SUBLINGU* Dissolve 1 tablet under the t* BUPROPION HCL SR 150 MG TABLE* Take one a day for two weeks * Patient not taking: Reported on 08/14/2020 DILTIAZEM SR 180 MG 24 HR CAP Take 1 capsule by mouth once * EZETIMIBE 10 MG TABLET Take 1 tablet by mouth once d* FENOFIBRATE 54 MG TABLET Take 1 tablet by mouth once d* FLUTICASONE PROPIONATE 50 MCG* Use 1 [place] in each nostril o* HYDROXYZINE HCL 25 MG TABLET TAKE 1 TABLET EVERY 4 HOURS A* PANTOPRAZOLE 40 MG TABLET,DEL* Take 1 tablet by mouth once d* ROPINIROLE ER 2 MG TABLET,EXT* Take 1 tablet by mouth daily * DOXEPIN 50 MG CAPSULE When done with 75 mg dosing t* Patient not taking: Reported on 08/14/2020 DOXEPIN 25 MG CAPSULE When done with 50 mg dose sonny* Patient not taking: Reported on 08/14/2020 ONDANSETRON 4 MG DISINTEGRATI* Take 1 tablet by mouth every * LANCETS Test blood sugar(s) 1 times d* BLOOD GLUCOSE TEST STRIPS Test blood sugar(s) 1 times d* MELATONIN 5 MG CAPSULE Take 2 capsules by mouth era* SUCRALFATE 1 GRAM TABLET Take 1 tablet by mouth three * ASPIRIN 81 MG TABLET,DELAYED * Take 1 tablet by mouth once d* PROBIOTIC ORAL Take 1 tablet by mouth twice * Problem List As Of Date 09/28/2020 Noted Resolved Hip arthritis [M16.10] 04/01/2013 Essential hypertension [I10] Mixed hyperlipidemia [E78.2] RLS (restless legs syndrome) [G25.81] SUMMARY [V999.95] 05/04/2013 07/28/2017 Anxiety [F41.9] 07/05/2013 07/19/2019 Diverticulosis [K57.90] 11/16/2013 Fibromyalgia [M79.7] 11/17/2013 Ex-smoker [Z87.891] 10/19/2014 Right hip pain [M25.551] 11/07/2014 07/19/2019 Lumbar degenerative disc disease [M51.36] 12/28/2015 Gastroesophageal reflux disease without esophag*01/08/2016 Insomnia [G47.00] 01/08/2016 Multiple falls [R29.6] 01/08/2016 07/28/2017 Migraine without aura and without status migrai*07/09/2016 Coronary artery disease involving torres martinez alarcon*07/09/2016 Osteoarthritis of multiple joints [M15.9] 09/06/2016 Well adult exam [Z00.00] 06/26/2017 07/19/2019 Encounter for screening for diabetes mellitus [*06/26/2017 07/28/2017 Current use of proton pump inhibitor [Z79.899] 06/26/2017 Hiatal hernia [K44.9] 07/28/2017 Bilateral carotid artery disease (HCC) [I77.9] 12/15/2017 Type 2 diabetes mellitus without complication, *12/17/2017 Encounter for screening mammogram for breast ca*12/29/2017 07/19/2019 Current moderate episode of major depressive di*07/14/2018 Colon cancer screening [Z12.11] 07/14/2018 07/19/2019 History of shingles [Z86.19] 06/23/2004 Iron deficiency anemia [D50.9] 07/04/2019 Medication management [Z79.899] 06/01/2020 Abnormal thyroid blood test [R79.89] 06/01/2020 Foot callus [L84] 06/01/2020 Age-related osteoporosis without current pathol*06/01/[address] (HCC) [Z93.3] 06/01/2020 Stage 3b chronic kidney disease [N18.32] 06/02/2020 Unspecified dementia with behavioral disturbanc*07/21/2020 Encounter Status:Closed by NIKO KIRBY on 09/28/20 [facility] CNPN Telephone (PSYAGR) TY YU ([id number]) 1955 F NFR Date Time Provider Department 09/28/20 MALGORZATA STARK PSYAGR During your visit today, we recorded the following information about you: Niko Memo 09/28/2020 11:43 AM Signed Insurance Company contacted: [facility] [address] Insurance fax: Date Faxed/Called: September 28, 2020 Diagnosis Code: F03.91 CPT code (if applicable): 80703 [id number] Medical reason details/referral: NEUROPSYCH TESTING FOR DEMENTIA Authorization: Approved/NPCR Authorization number: Approval valid date range: Number of Days/Visits approved: FOLLOWS MEDICARE GUIDELINES Allergies As of Date: 09/28/2020 Noted Allergy Reaction BEES 01/05/2014 10 - Anaphylaxis LIPITOR (ATORVASTATIN CALCIUM) 01/08/2016 17 - Myalgia PHENERGAN (PROMETHAZINE HCL) 01/25/2013 8 - GI Upset PRAVASTATIN 12/17/2017 17 - Myalgia [id number] REDUCTASE INHIBIT*12/29/2017 17 - Myalgia TRAZODONE 07/14/2018 14 - Other: See Comments Comments: Increased urine frequency Date Reviewed: 08/14/2020 Reviewed by: Regine Cadet Ma - Fully Assessed Reason for Visit: Insurance Authorization [[id number]] Prescriptions as of 09/28/2020 Sig: EPINEPHRINE 0.3 MG/0.3 ML INJ* Inject 0.3 mL intramuscularly* SERTRALINE 100 MG TABLET Take 1 tablet by mouth daily * DONEPEZIL 5 MG TABLET Take 1 tablet by mouth daily * NYSTATIN 100,000 UNIT/ML ORAL* Take 5 mL by mouth four times* CLOPIDOGREL 75 MG TABLET Take 1 tablet by mouth once d* ATORVASTATIN 80 MG TABLET Take 1 tablet by mouth daily * SLOW FE 142 MG (45 MG IRON) T* Take 1 tablet by mouth once d* NITROGLYCERIN 0.4 MG SUBLINGU* Dissolve 1 tablet under the t* BUPROPION HCL SR 150 MG TABLE* Take one a day for two weeks * Patient not taking: Reported on 08/14/2020 DILTIAZEM SR 180 MG 24 HR CAP Take 1 capsule by mouth once * EZETIMIBE 10 MG TABLET Take 1 tablet by mouth once d* FENOFIBRATE 54 MG TABLET Take 1 tablet by mouth once d* FLUTICASONE PROPIONATE 50 MCG* Use 1 [place] in each nostril o* HYDROXYZINE HCL 25 MG TABLET TAKE 1 TABLET EVERY 4 HOURS A* PANTOPRAZOLE 40 MG TABLET,DEL* Take 1 tablet by mouth once d* ROPINIROLE ER 2 MG TABLET,EXT* Take 1 tablet by mouth daily * DOXEPIN 50 MG CAPSULE When done with 75 mg dosing t* Patient not taking: Reported on 08/14/2020 DOXEPIN 25 MG CAPSULE When done with 50 mg dose sonny* Patient not taking: Reported on 08/14/2020 ONDANSETRON 4 MG DISINTEGRATI* Take 1 tablet by mouth every * LANCETS Test blood sugar(s) 1 times d* BLOOD GLUCOSE TEST STRIPS Test blood sugar(s) 1 times d* MELATONIN 5 MG CAPSULE Take 2 capsules by mouth era* SUCRALFATE 1 GRAM TABLET Take 1 tablet by mouth three * ASPIRIN 81 MG TABLET,DELAYED * Take 1 tablet by mouth once d* PROBIOTIC ORAL Take 1 tablet by mouth twice * Problem List As Of Date 09/28/2020 Noted Resolved Hip arthritis [M16.10] 04/01/2013 Essential hypertension [I10] Mixed hyperlipidemia [E78.2] RLS (restless legs syndrome) [G25.81] SUMMARY [V999.95] 05/04/2013 07/28/2017 Anxiety [F41.9] 07/05/2013 07/19/2019 Diverticulosis [K57.90] 11/16/2013 Fibromyalgia [M79.7] 11/17/2013 Ex-smoker [Z87.891] 10/19/2014 Right hip pain [M25.551] 11/07/2014 07/19/2019 Lumbar degenerative disc disease [M51.36] 12/28/2015 Gastroesophageal reflux disease without esophag*01/08/2016 Insomnia [G47.00] 01/08/2016 Multiple falls [R29.6] 01/08/2016 07/28/2017 Migraine without aura and without status migrai*07/09/2016 Coronary artery disease involving torres martinez alarcon*07/09/2016 Osteoarthritis of multiple joints [M15.9] 09/06/2016 Well adult exam [Z00.00] 06/26/2017 07/19/2019 Encounter for screening for diabetes mellitus [*06/26/2017 07/28/2017 Current use of proton pump inhibitor [Z79.899] 06/26/2017 Hiatal hernia [K44.9] 07/28/2017 Bilateral carotid artery disease (HCC) [I77.9] 12/15/2017 Type 2 diabetes mellitus without complication, *12/17/2017 Encounter for screening mammogram for breast ca*12/29/2017 07/19/2019 Current moderate episode of major depressive di*07/14/2018 Colon cancer screening [Z12.11] 07/14/2018 07/19/2019 History of shingles [Z86.19] 06/23/2004 Iron deficiency anemia [D50.9] 07/04/2019 Medication management [Z79.899] 06/01/2020 Abnormal thyroid blood test [R79.89] 06/01/2020 Foot callus [L84] 06/01/2020 Age-related osteoporosis without current pathol*06/01/[address] (HCC) [Z93.3] 06/01/2020 Stage 3b chronic kidney disease [N18.32] 06/02/2020 Unspecified dementia with behavioral disturbanc*07/21/2020 Encounter Status:Closed by NIKO KIRBY on 09/28/20 [facility] No Panel Information [facility] Vital Signs Date Time Vital Sign Value Performing Clinician Facility 01-25-2025 14:43-0400 Body temperature 98.9 [degF] Dr. Magan Amador MD Work Phone: [facility] 01-25-2025 14:43-0400 Diastolic blood pressure 67 mm[Hg] Dr. Magan Amador MD Work Phone: [facility] 01-25-2025 14:43-0400 Heart rate 72 /min Dr. Magan Amador MD Work Phone: 8(653)974-011626 [place] [address] 01-25-2025 14:43-0400 Respiratory rate 18 /min Dr. Magan Amador MD Work Phone: 7(623)454-544692 [place] [address] 01-25-2025 14:43-0400 SaO2% (BldA) [Mass fraction] 100 % Dr. Magan Amador MD Work Phone: 6(299)845-605192 [place] [address] 01-25-2025 14:43-0400 Systolic blood pressure 131 mm[Hg] Dr. Magan Amador MD Work Phone: 1(200)518-246292 [place] [address] 01-25-2025 12:39-0400 Body height 165.[address] Magan Amador MD Work Phone: 0(596)913-717792 [place] [address] 01-25-2025 12:39-0400 Body mass index (BMI) [Ratio] 25.7 kg/m2 Dr. Magan Amador MD Work Phone: 0(053)893-823292 [place] [address] 01-25-2025 12:39-0400 Body weight 70.[address] Magan Amador MD Work Phone: 6(555)945-461692 [place] [address] 12-06-2024 08:55-0400 Body height 152.[address] Magan Amador MD Work Phone: 7(188)992-345292 [place] [address] 12-01-2024 17:24-0400 Body height 165.[address] [facility] 12-01-2024 17:24-0400 Body mass index (BMI) [Ratio] 28.3 kg/m2 [facility] 12-01-2024 17:24-0400 Body temperature 98 [degF] [facility] 12-01-2024 17:24-0400 Body weight 77.[address] [facility] 12-01-2024 17:24-0400 Diastolic blood pressure 54 mm[Hg] [facility] 12-01-2024 17:24-0400 Heart rate 94 /min [facility] 12-01-2024 17:24-0400 Respiratory rate 19 /min [facility] 12-01-2024 17:24-0400 SaO2% (BldA) [Mass fraction] 95 % [facility] 12-01-2024 17:24-0400 Systolic blood pressure 141 mm[Hg] [facility] 11-30-2024 15:03-0400 Body height 152.[address] Magan Amador MD Work Phone: 7(606)730-197692 [place] [address] 11-30-2024 15:03-0400 Body mass index (BMI) [Ratio] 29.2 kg/m2 Dr. Magan Amador MD Work Phone: 6(516)639-246092 [place] [address] 11-30-2024 15:03-0400 Body temperature 98 [degF] Dr. Magan Amador MD Work Phone: 6(237)781-534992 [place] [address] 11-30-2024 15:03-0400 Body weight 68.[address] Magan Amador MD Work Phone: 9(086)675-240092 [place] [address] 11-30-2024 15:03-0400 Diastolic blood pressure 64 mm[Hg] Dr. Magan Amador MD Work Phone: 6(139)458-305992 [place] [address] 11-30-2024 15:03-0400 Heart rate 85 /min Dr. Magan Amador MD Work Phone: 4(436)659-153692 [place] [address] 11-30-2024 15:03-0400 Respiratory rate 17 /min Dr. Magan Amador MD Work Phone: 7(700)007-559692 [place] [address] 11-30-2024 15:03-0400 SaO2% (BldA) [Mass fraction] 99 % Dr. Magan Amador MD Work Phone: 6(395)528-304792 [place] [address] 11-30-2024 15:03-0400 Systolic blood pressure 116 mm[Hg] Dr. Magan Amador MD Work Phone: 2(265)383-767492 [place] [address] 11-22-2024 14:13-0400 Body height 165.[address] [facility] 11-22-2024 14:13-0400 Body mass index (BMI) [Ratio] 27.5 kg/m2 [facility] 11-22-2024 14:130400 Body temperature 97.6 [degF] [facility] 11-22-2024 14:130400 Body weight [address] [facility] 11-22-2024 14:13-0400 Diastolic blood pressure 61 mm[Hg] [facility] 11-22-2024 14:13-0400 Heart rate 83 /min [facility] 11-22-2024 14:13-0400 Respiratory rate 19 /min [facility] 11-22-2024 14:13-0400 SaO2% (BldA) [Mass fraction] 98 % [facility] 11-22-2024 14:13-0400 Systolic blood pressure 106 mm[Hg] [facility] 09-14-2024 14:32-0400 Body height 163.8 cm Magan Amador MD Work Phone: [facility] 09-14-2024 14:32-0400 Body mass index (BMI) [Ratio] 27.04 kg/m2 Magan Amador MD Work Phone: [facility] 09-14-2024 14:32-0400 Body weight 72.58 kg Magan Amador MD Work Phone: [facility] 09-14-2024 14:32-0400 Diastolic blood pressure 70 mm[Hg] Magan Amador MD Work Phone: [facility] 09-14-2024 14:32-0400 Heart rate 76 /min Magan Amador MD Work Phone: [facility] 09-14-2024 14:32-0400 Respiratory rate 16 /min Magan Amador MD Work Phone: [facility] 09-14-2024 14:32-0400 Systolic blood pressure 130 mm[Hg] Magan Amador MD Work Phone: [facility] 08-24-2024 14:36-0500 Body mass index (BMI) [Ratio] 30.8 kg/m2 Dr. Magan Amador MD Work Phone: 6(892)865-980426 [place] [address] 08-24-2024 14:36-0500 Body temperature 98.2 [degF] Dr. Magan Amador MD Work Phone: 8(128)438-003692 [place] [address] 08-24-2024 14:36-0500 Body weight 71.[address] Magan Amador MD Work Phone: 9(313)510-092692 [place] [address] 08-24-2024 14:36-0500 Diastolic blood pressure 72 mm[Hg] Dr. Magan Amador MD Work Phone: 0(264)600-084392 [place] [address] 08-24-2024 14:36-0500 Heart rate 85 /min Dr. Magan Amador MD Work Phone: 9(020)339-755392 [place] [address] 08-24-2024 14:36-0500 Respiratory rate 15 /min Dr. Magan Amador MD Work Phone: 1(957)517-537592 [place] [address] 08-24-2024 14:36-0500 SaO2% (BldA) [Mass fraction] 97 % Dr. Magan Amador MD Work Phone: 7(246)346-081892 [place] [address] 08-24-2024 14:36-0500 Systolic blood pressure 124 mm[Hg] Dr. Magan Amador MD Work Phone: 1(231)747-643992 [place] [address] 07-05-2024 12:43-0500 Body mass index (BMI) [Ratio] 26.98 kg/m2 Heaven DAVIS-C Work Phone: 4(747)906-958444 [place] [address] 07-05-2024 12:43-0500 Body temperature 97.59 [degF] Heaven Garg PA-C Work Phone: 3(401)549-566644 [place] [address] 07-05-2024 12:43-0500 Body weight 72.58 kg [facility] DAVIS-C Work Phone: 7(736)757-157244 [place] [address] 07-05-2024 12:43-0500 Diastolic blood pressure 70 mm[Hg] Heaven Garg PA-C Work Phone: 3(587)831-485844 [place] [address] 07-05-2024 12:43-0500 Heart rate 99 /min Heaven Garg PA-C Work Phone: [facility] 07-05-2024 12:43-0500 Respiratory rate 18 /min Heaven Garg PA-C Work Phone: [facility] 07-05-2024 12:43-0500 SaO2% (BldA) [Mass fraction] 99 % Heaven Garg PA-C Work Phone: [facility] 07-05-2024 12:43-0500 Systolic blood pressure 110 mm[Hg] Heaven Garg PA-C Work Phone: [facility] 03-09-2024 12:36-0400 Body mass index (BMI) [Ratio] 26.82 kg/m2 Heaven Garg PA-C Work Phone: [facility] 03-09-2024 12:36-0400 Body temperature 98.71 [degF] Heaven Garg PA-C Work Phone: [facility] 03-09-2024 12:36-0400 Body weight 72.12 kg Heaven Garg PA-C Work Phone: [facility] 03-09-2024 12:36-0400 Diastolic blood pressure 70 mm[Hg] Heaven Garg PA-C Work Phone: [facility] 03-09-2024 12:36-0400 Heart rate 73 /min Heaven Garg PA-C Work Phone: [facility] 03-09-2024 12:36-0400 Respiratory rate 16 /min Heaven Garg PA-C Work Phone: [facility] 03-09-2024 12:36-0400 SaO2% (BldA) [Mass fraction] 99 % Heaven Garg PA-C Work Phone: [facility] 03-09-2024 12:36-0400 Systolic blood pressure 118 mm[Hg] Heaven Garg PA-C Work Phone: [facility] 01-01-2024 15:20-0400 Body height 165.[address] [facility] 01-01-2024 15:20-0400 Body mass index (BMI) [Ratio] 24.9 kg/m2 [facility] 01-01-2024 15:20-0400 Body temperature 97.6 [degF] [facility] 01-01-2024 15:20-0400 Body weight [address] [facility] 01-01-2024 15:20-0400 Diastolic blood pressure 76 mm[Hg] [facility] 01-01-2024 15:20-0400 Heart rate 80 /min [facility] 01-01-2024 15:20-0400 Respiratory rate 20 /min [facility] 01-01-2024 15:20-0400 SaO2% (BldA) [Mass fraction] 95 % [facility] 01-01-2024 15:20-0400 Systolic blood pressure 138 mm[Hg] [facility] 12-29-2023 09:54-0400 Body height 165.[address] [facility] 12-29-2023 09:54-0400 Body mass index (BMI) [Ratio] 25 kg/m2 [facility] 12-29-2023 09:54-0400 Body temperature 97.2 [degF] [facility] 12-29-2023 09:54-0400 Body weight 68.[address] [facility] 12-29-2023 09:54-0400 Diastolic blood pressure 58 mm[Hg] [facility] 12-29-2023 09:54-0400 Heart rate 105 /min [facility] 12-29-2023 09:54-0400 Respiratory rate 16 /min [facility] 12-29-2023 09:54-0400 SaO2% (BldA) [Mass fraction] 98 % [facility] 12-29-2023 09:54-0400 Systolic blood pressure 132 mm[Hg] [facility] 12-22-2023 11:42-0400 Body height 165.[address] [facility] 12-22-2023 11:42-0400 Body mass index (BMI) [Ratio] 25 kg/m2 [facility] 12-22-2023 11:42-0400 Body temperature 98.5 [degF] [facility] 12-22-2023 11:42-0400 Body weight 68.[address] [facility] 12-22-2023 11:42-0400 Diastolic blood pressure 84 mm[Hg] [facility] 12-22-2023 11:42-0400 Heart rate 81 /min [facility] 12-22-2023 11:42-0400 Respiratory rate 16 /min [facility] 12-22-2023 11:42-0400 SaO2% (BldA) [Mass fraction] 98 % [facility] 12-22-2023 11:42-0400 Systolic blood pressure 158 mm[Hg] [facility] 12-18-2023 08:13-0400 Body height 165.[address] [facility] 12-18-2023 08:13-0400 Body mass index (BMI) [Ratio] 25 kg/m2 [facility] 12-18-2023 08:13-0400 Body temperature 96.7 [degF] [facility] 12-18-2023 08:13-0400 Body weight 68.[address] [facility] 12-18-2023 08:13-0400 Diastolic blood pressure 83 mm[Hg] [facility] 12-18-2023 08:13-0400 Heart rate 77 /min [facility] 12-18-2023 08:13-0400 Respiratory rate 20 /min [facility] 12-18-2023 08:13-0400 SaO2% (BldA) [Mass fraction] 99 % [facility] 12-18-2023 08:13-0400 Systolic blood pressure 143 mm[Hg] [facility] 11-16-2023 15:49-0400 Body height 165.[address] [facility] 11-16-2023 15:49-0400 Body mass index (BMI) [Ratio] 25 kg/m2 [facility] 11-16-2023 15:49-0400 Body temperature 98.9 [degF] [facility] 11-16-2023 15:49-0400 Body weight 68.[address] [facility] 11-16-2023 15:49-0400 Diastolic blood pressure 60 mm[Hg] [facility] 11-16-2023 15:49-0400 Heart rate 68 /min [facility] 11-16-2023 15:49-0400 Respiratory rate 18 /min [facility] 11-16-2023 15:49-0400 SaO2% (BldA) [Mass fraction] 96 % [facility] 11-16-2023 15:49-0400 Systolic blood pressure 112 mm[Hg] [facility] 09-08-2023 12:38-0400 Body height 164 cm [facility] DAVIS-C Work Phone: [facility] 09-08-2023 12:38-0400 Body temperature 99 [degF] Heaven Garg PA-C Work Phone: [facility] 09-08-2023 12:38-0400 Body weight 65.77 kg Heaven Garg PA-C Work Phone: [facility] 09-08-2023 12:38-0400 Diastolic blood pressure 80 mm[Hg] Heaven Garg PA-C Work Phone: [facility] 09-08-2023 12:38-0400 Heart rate 76 /min Heaven Garg PA-C Work Phone: [facility] 09-08-2023 12:38-0400 Respiratory rate 16 /min Heaven Garg PA-C Work Phone: [facility] 09-08-2023 12:38-0400 Systolic blood pressure 130 mm[Hg] Heaven Garg PA-C Work Phone: [facility] 09-01-2023 13:06-0400 Body temperature 98.2 [degF] Dr. Magan Amador Work Phone: [facility] [facility] 09-01-2023 13:06-0400 Body weight 67.[address] Magan Amador Work Phone: [facility] 09-01-2023 13:06-0400 Diastolic blood pressure 68 mm[Hg] Dr. Magan Amador Work Phone: 0(391)723-646826 [place] [address] 09-01-2023 13:06-0400 Heart rate 81 /min Dr. Magan Amador Work Phone: [facility] 09-01-2023 13:06-0400 Respiratory rate 15 /min Dr. Magan Amador Work Phone: 1(383)571-864006 [address] 09-01-2023 13:06-0400 SaO2% (BldA) [Mass fraction] 99 % Dr. Magan Amdaor Work Phone: 5(386)360-466126 [place] [address] 09-01-2023 13:06-0400 Systolic blood pressure 140 mm[Hg] Dr. Magan Amador Work Phone: 4(579)103-589626 [place] [address] 06-12-2023 14:55-0500 Body height 152.[address] Magan Amador Work Phone: 3(398)878-291606 [address] 06-12-2023 14:55-0500 Body mass index (BMI) [Ratio] 27.3 kg/m2 Dr. Magan Amador Work Phone: 0(522)618-907426 [place] [address] 06-12-2023 14:55-0500 Body temperature 98.6 [degF] Dr. Magan Amador Work Phone: 7(355)048-571726 [place] [address] 06-12-2023 14:55-0500 Body weight 63.[address] Magan Amador Work Phone: [facility] 06-12-2023 14:55-0500 Diastolic blood pressure 80 mm[Hg] Dr. Magan Amador Work Phone: [facility] 06-12-2023 14:55-0500 Heart rate 90 /min Dr. Magan Amador Work Phone: [facility] 06-12-2023 14:55-0500 Respiratory rate 17 /min Dr. Magan Amador Work Phone: [facility] 06-12-2023 14:55-0500 SaO2% (BldA) [Mass fraction] 98 % Dr. Magan Amador Work Phone: [facility] 06-12-2023 14:55-0500 Systolic blood pressure 128 mm[Hg] Dr. Magan Amador Work Phone: [facility] 01-28-2023 11:50-0400 Diastolic blood pressure 82 mm[Hg] Magan Amador MD Work Phone: [facility] 01-28-2023 11:50-0400 Systolic blood pressure 132 mm[Hg] Magan Amador MD Work Phone: [facility] 01-28-2023 11:19-0400 Body weight 68.49 kg Magan Amador MD Work Phone: [facility] 01-28-2023 11:19-0400 Heart rate 72 /min Magan Amador MD Work Phone: [facility] 01-28-2023 11:19-0400 Respiratory rate 16 /min Magan Amador MD Work Phone: [facility] 01-08-2023 15:17-0400 Body temperature 98.3 [degF] Dr. Magan Amador Work Phone: [facility] 01-08-2023 15:17-0400 Diastolic blood pressure 97 mm[Hg] Dr. Magan Amador Work Phone: [facility] 01-08-2023 15:17-0400 Heart rate 78 /min Dr. Magan Amador Work Phone: [facility] 01-08-2023 15:17-0400 Respiratory rate 16 /min Dr. Magan Amador Work Phone: [facility] 01-08-2023 15:17-0400 SaO2% (BldA) [Mass fraction] 98 % Dr. Magan Amador Work Phone: [facility] 01-08-2023 15:17-0400 Systolic blood pressure 113 mm[Hg] Dr. Magan Amador Work Phone: [facility] 01-08-2023 13:44-0400 Body height 165.[address] Magan Amador Work Phone: [facility] 01-08-2023 13:44-0400 Body mass index (BMI) [Ratio] 23.3 kg/m2 Dr. Magan Amador Work Phone: [facility] 01-08-2023 13:44-0400 Body weight 63.[address] Magan Amador Work Phone: [facility] 01-07-2023 12:03-0400 Body temperature 99 [degF] Heaven Garg PA-C Work Phone: [facility] 01-07-2023 12:03-0400 Body weight 65.77 kg Heaven Garg PA-C Work Phone: [facility] 01-07-2023 12:03-0400 Diastolic blood pressure 70 mm[Hg] Heaven Garg PA-C Work Phone: [facility] 01-07-2023 12:03-0400 Heart rate 73 /min Heaven Garg PA-C Work Phone: [facility] 01-07-2023 12:03-0400 Respiratory rate 18 /min Heaven Garg PA-C Work Phone: [facility] 01-07-2023 12:03-0400 Systolic blood pressure 100 mm[Hg] Heaven Garg PA-C Work Phone: [facility] 12-31-2022 15:45-0400 Body temperature 97.9 [degF] Dr. Magan Amador Work Phone: 0(512)052-322192 [place] [address] 12-31-2022 15:45-0400 Diastolic blood pressure 70 mm[Hg] Dr. Magan Amador Work Phone: 4(314)771-960292 [place] [address] 12-31-2022 15:45-0400 Heart rate 58 /min Dr. Magan Amador Work Phone: 9(234)301-231592 [place] [address] 12-31-2022 15:45-0400 Respiratory rate 16 /min Dr. Magan Amador Work Phone: 2(463)455-723692 [place] [address] 12-31-2022 15:45-0400 SaO2% (BldA) [Mass fraction] 100 % Dr. Magan Amador Work Phone: 6(099)440-882792 [place] [address] 12-31-2022 15:45-0400 Systolic blood pressure 118 mm[Hg] Dr. Magan Amador Work Phone: 9(862)581-119292 [place] [address] 12-31-2022 12:40-0400 Body temperature 97.8 [degF] Dr. Magan Amador Work Phone: 3(606)124-665092 [place] [address] 12-31-2022 12:40-0400 Diastolic blood pressure 58 mm[Hg] Dr. Magan Amador Work Phone: 2(912)384-236192 [place] [address] 12-31-2022 12:40-0400 Heart rate 58 /min Dr. Magan Amador Work Phone: 5(543)887-905692 [place] [address] 12-31-2022 12:40-0400 Respiratory rate 16 /min Dr. Magan Amador Work Phone: 1(469)802-744592 [place] [address] 12-31-2022 12:40-0400 SaO2% (BldA) [Mass fraction] 99 % Dr. Magan Amador Work Phone: 2(398)209-225092 [place] [address] 12-31-2022 12:40-0400 Systolic blood pressure 114 mm[Hg] Dr. Magan Amador Work Phone: 7(211)530-584092 [place] [address] 12-30-2022 14:23-0400 Body height 165.[address] Magan Amador Work Phone: 6(165)542-868992 [place] [address] 12-30-2022 14:23-0400 Body weight 67.[address] Magan Amador Work Phone: 2(501)656-897892 [place] [address] 12-26-2022 17:05-0400 Body mass index (BMI) [Ratio] 24.9 kg/m2 Dr. Magan Amador Work Phone: 2(001)251-982892 [place] [address] 12-26-2022 15:59-0400 Body temperature 98 [degF] Dr. Magan Amador Work Phone: 5(036)325-288492 [place] [address] 12-26-2022 15:59-0400 Diastolic blood pressure 109 mm[Hg] Dr. Magan Amador Work Phone: 1(570)471-121192 [place] [address] 12-26-2022 15:59-0400 Heart rate 71 /min Dr. Magan Amador Work Phone: 0(496)975-159492 [place] [address] 12-26-2022 15:59-0400 Respiratory rate 19 /min Dr. Magan Amador Work Phone: 5(787)258-220892 [place] [address] 12-26-2022 15:59-0400 SaO2% (BldA) [Mass fraction] 100 % Dr. Magan Amador Work Phone: 1(869)671-036426 [place] [address] 12-26-2022 15:59-0400 Systolic blood pressure 140 mm[Hg] Dr. Magan Amador Work Phone: 4(805)543-661126 [place] [address] 12-26-2022 13:08-0400 Body height 152.[address] Magan Amador Work Phone: 6(283)752-324126 [place] [address] 12-26-2022 13:08-0400 Body mass index (BMI) [Ratio] 29.5 kg/m2 Dr. Magan Amador Work Phone: 3(486)558-849626 [place] [address] 12-26-2022 13:08-0400 Body weight 68.[address] Magan Amador Work Phone: 2(638)833-922592 [place] [address] 12-26-2022 12:02-0400 Body temperature 97.7 [degF] Heaven Garg PA-C Work Phone: 3(936)211-282444 [place] [address] 12-26-2022 12:02-0400 Body weight 67.13 kg Heaven Garg PA-C Work Phone: [facility] 12-26-2022 12:02-0400 Diastolic blood pressure 78 mm[Hg] Heaven Garg PA-C Work Phone: [facility] 12-26-2022 12:02-0400 Heart rate 73 /min Heaven Garg PA-C Work Phone: [facility] 12-26-2022 12:02-0400 Respiratory rate 18 /min Heaven Garg PA-C Work Phone: [facility] 12-26-2022 12:02-0400 SaO2% (BldA) [Mass fraction] 100 % Heaven Garg PA-C Work Phone: [facility] 12-26-2022 12:02-0400 Systolic blood pressure 128 mm[Hg] Heaven Garg PA-C Work Phone: [facility] 12-12-2022 13:54-0400 Body mass index (BMI) [Ratio] 29.4 kg/m2 Dr. Magan Amador Work Phone: [facility] 12-12-2022 13:54-0400 Body temperature 98.1 [degF] Dr. Magan Amador Work Phone: [facility] 12-12-2022 13:54-0400 Body weight 68.[address] Magan Amador Work Phone: [facility] 12-12-2022 13:54-0400 Diastolic blood pressure 62 mm[Hg] Dr. Magan Amador Work Phone: [facility] 12-12-2022 13:54-0400 Heart rate 69 /min Dr. Magan Amador Work Phone: [facility] 12-12-2022 13:54-0400 Respiratory rate 17 /min Dr. Magan Amador Work Phone: [facility] 12-12-2022 13:54-0400 SaO2% (BldA) [Mass fraction] 99 % Dr. Magan Amador Work Phone: [facility] 12-12-2022 13:54-0400 Systolic blood pressure 124 mm[Hg] Dr. Magan Amador Work Phone: [facility] 12-12-2022 12:27-0400 Body temperature 97.3 [degF] Heavenbrook Garg PA-C Work Phone: [facility] 12-12-2022 12:27-0400 Body weight 68.04 kg Heavenbrook Garg PA-C Work Phone: [facility] 12-12-2022 12:27-0400 Diastolic blood pressure 76 mm[Hg] Heaven Garg PA-C Work Phone: [facility] 12-12-2022 12:27-0400 Heart rate 58 /min Heavenbrook Garg PA-C Work Phone: [facility] 12-12-2022 12:27-0400 Respiratory rate 16 /min Heavenbrook Garg PA-C Work Phone: [facility] 12-12-2022 12:27-0400 Systolic blood pressure 140 mm[Hg] Heavenbrook Garg PA-C Work Phone: [facility] 11-11-2022 13:50-0400 Diastolic blood pressure 80 mm[Hg] Dr. Magan Amador Work Phone: [facility] 11-11-2022 13:50-0400 Systolic blood pressure 150 mm[Hg] Dr. Magan Amador Work Phone: [facility] 11-11-2022 13:21-0400 Body mass index (BMI) [Ratio] 26.2 kg/m2 Dr. Magna Amador Work Phone: [facility] 11-11-2022 13:21-0400 Body weight 71.[address] Magan Amador Work Phone: [facility] 11-11-2022 13:21-0400 Heart rate 79 /min Dr. Magan Amador Work Phone: [facility] 11-11-2022 13:21-0400 Respiratory rate 16 /min Dr. Magan Amador Work Phone: [facility] 06-19-2022 09:21-0500 Body height 165.1 cm [facility] 06-19-2022 09:21-0500 Body mass index (BMI) [Ratio] 28.2 kg/m2 [facility] 06-19-2022 09:21-0500 Body temperature 98.2 [degF] [facility] 06-19-2022 09:21-0500 Body weight 77 kg [facility] 06-19-2022 09:21-0500 Diastolic blood pressure 82 mm[Hg] [facility] 06-19-2022 09:21-0500 Heart rate 87 /min [facility] 06-19-2022 09:21-0500 Respiratory rate 16 /min [facility] 06-19-2022 09:21-0500 SaO2% (BldA) [Mass fraction] 96 % [facility] 06-19-2022 09:21-0500 Systolic blood pressure 139 mm[Hg] [facility] 06-18-2022 11:48-0500 Body temperature 98.2 [degF] [facility] 06-18-2022 11:48-0500 Diastolic blood pressure 91 mm[Hg] [facility] 06-18-2022 11:48-0500 Heart rate 93 /min [facility] 06-18-2022 11:48-0500 Respiratory rate 18 /min [facility] 06-18-2022 11:48-0500 SaO2% (BldA) [Mass fraction] 97 % [facility] 06-18-2022 11:48-0500 Systolic blood pressure 157 mm[Hg] [facility] 05-08-2022 15:18-0500 Body height 165.[address] Magan Amador Work Phone: [facility] Work Phone: 05-08-2022 15:18-0500 Body mass index (BMI) [Ratio] 28.9 kg/m2 Dr. Magan Amador Work Phone: [facility] Work Phone: 05-08-2022 15:18-0500 Body weight 78.[address] Magan Amador Work Phone: [facility] Work Phone: 05-08-2022 15:18-0500 Diastolic blood pressure 84 mm[Hg] Dr. Magan Amador Work Phone: [facility] Work Phone: 05-08-2022 15:18-0500 Heart rate 80 /min Dr. Magan Amador Work Phone: [facility] Work Phone: 05-08-2022 15:18-0500 Respiratory rate 16 /min Dr. Magan Amador Work Phone: [facility] Work Phone: 05-08-2022 15:18-0500 Systolic blood pressure 141 mm[Hg] Dr. Magan Amador Work Phone: [facility] Work Phone: 05-08-2022 13:36-0500 Body weight 79.29 kg Heaven Garg PA-C Work Phone: [facility] 05-08-2022 13:36-0500 Diastolic blood pressure 68 mm[Hg] Heaven Garg PA-C Work Phone: [facility] 05-08-2022 13:36-0500 Heart rate 76 /min Heaven Garg PA-C Work Phone: [facility] 05-08-2022 13:36-0500 Respiratory rate 18 /min Heaven Garg PA-C Work Phone: [facility] 05-08-2022 13:36-0500 Systolic blood pressure 122 mm[Hg] Heaven Garg PA-C Work Phone: [facility] 05-06-2022 14:08-0500 Body weight 77.[address] Magan Amador Work Phone: [facility] Work Phone: 05-06-2022 14:08-0500 Heart rate 94 /min Dr. Magan Amador Work Phone: [facility] Work Phone: 05-06-2022 14:08-0500 SaO2% (BldA) [Mass fraction] 98 % Dr. Magan Amador Work Phone: [facility] Work Phone: 02-26-2022 13:58-0400 Body height 165.[address] Magan Amador Work Phone: [facility] Work Phone: 02-26-2022 13:58-0400 Body mass index (BMI) [Ratio] 29.5 kg/m2 Dr. Magan Amador Work Phone: [facility] Work Phone: 02-26-2022 13:58-0400 Body temperature 97.5 [degF] Dr. Magan Amador Work Phone: [facility] Work Phone: 02-26-2022 13:58-0400 Body weight 80.[address] Magan Amador Work Phone: [facility] Work Phone: 02-26-2022 13:58-0400 Diastolic blood pressure 81 mm[Hg] Dr. Magan Amador Work Phone: [facility] Work Phone: 02-26-2022 13:58-0400 Heart rate 84 /min Dr. Magan Amador Work Phone: [facility] Work Phone: 02-26-2022 13:58-0400 Respiratory rate 16 /min Dr. Magan Amador Work Phone: [facility] Work Phone: 02-26-2022 13:58-0400 SaO2% (BldA) [Mass fraction] 97 % Dr. Magan Amador Work Phone: [facility] Work Phone: 02-26-2022 13:58-0400 Systolic blood pressure 143 mm[Hg] Dr. Magan Amador Work Phone: [facility] Work Phone: 12-17-2021 10:26-0400 Body height 165.[address] Magan Amador Work Phone: [facility] Work Phone: 12-17-2021 10:24-0400 Body mass index (BMI) [Ratio] 29.1 kg/m2 Dr. Magan Amador Work Phone: [facility] Work Phone: 12-17-2021 10:24-0400 Body weight 79.[address] Magan Amador Work Phone: [facility] Work Phone: 12-17-2021 10:24-0400 Diastolic blood pressure 78 mm[Hg] Dr. Magan Amador Work Phone: [facility] Work Phone: 12-17-2021 10:24-0400 Heart rate 74 /min Dr. Magan Amador Work Phone: [facility] Work Phone: 12-17-2021 10:24-0400 Respiratory rate 18 /min Dr. Magan Amador Work Phone: [facility] Work Phone: 12-17-2021 10:24-0400 SaO2% (BldA) [Mass fraction] 99 % Dr. Magan Amador Work Phone: [facility] Work Phone: 12-17-2021 10:24-0400 Systolic blood pressure 127 mm[Hg] Dr. Magan Amador Work Phone: [facility] Work Phone: 09-05-2021 11:19-0400 Body weight 78.[address] Magan Amador Work Phone: [facility] Work Phone: 09-05-2021 11:19-0400 Diastolic blood pressure 58 mm[Hg] Dr. Magan Amador Work Phone: [facility] Work Phone: 09-05-2021 11:19-0400 Heart rate 84 /min Dr. Magan Amador Work Phone: [facility] Work Phone: 09-05-2021 11:19-0400 Respiratory rate 16 /min Dr. Magan Amador Work Phone: [facility] Work Phone: 09-05-2021 11:19-0400 Systolic blood pressure 108 mm[Hg] Dr. Magan Amador Work Phone: [facility] Work Phone: 11-07-2020 11:48-0400 Body mass index (BMI) [Ratio] 25.7 kg/m2 Dr. Magan Amador Work Phone: [facility] Work Phone: Encounters Encounter Date Encounter Type Care Provider Facility Start: 01-25-2025 ambulatory Magan Amador Facility :[facility] Start: 01-25-2025 Non-patient / Non-visit Pranya Mccarthy nd DO -[facility] Start: 01-25-2025 End: 01-25-2025 Admission to same day surgery center Pranay Brian DO -Endoscopy Work Phone: Start: 01-25-2025 End: 01-25-[address] Magan Amador MD Work Phone: -Endoscopy Start: 12-10-2024 End: 12-10-2024 Chart abstracting Fidelia Yanes MA [facility] Comment on above: Results (Outside lab s ) Start: 12-09-2024 End: 12-09-[address] Magan Amador MD Work Phone: [facility] Work Phone: Start: 12-09-2024 End: 12-09-2024 Patient encounter procedure Krystal ROB -Laboratory Work Phone: Start: 12-09-2024 End: 12-09-2024 Patient encounter procedure Krystal ROB -[facility] Work Phone: Start: 12-09-2024 End: 12-09-[address] Magan Amador MD Work Phone: [facility] Work Phone: Start: 12-08-2024 End: 12-09-2024 ambulatory Magan Amador MD Work Phone: [facility] Comment on above: Dizziness Start: 12-01-2024 End: 12-01-2024 Emergency department patient visit [facility] Start: 11-30-2024 End: 11-30-[address] César Partida MD -[facility] Work Phone: Start: 11-30-2024 End: 11-30-[address] Magan Amador MD Work Phone: [facility] Work Phone: Start: 11-30-2024 End: 11-30-2024 Follow-up encounter Heaven Garg PA-C Work Phone: [facility] Start: 11-30-2024 End: 12-01-2024 Telephone encounter Fidelia Yanes MA [facility] Comment on above: Forms Start: 11-30-2024 End: 11-30-2024 ambulatory MAGAN AMADOR Facility:[facility] Start: 11-22-2024 End: 11-22-2024 Emergency department patient visit [facility] Start: 10-01-2024 End: 10-01-2024 Refill Magan Amador MD Work Phone: [facility] Comment on above: Refill Request Start: 09-22-2024 End: 09-27-2024 Telephone encounter Fidelia Yanes MA [facility] Comment on above: Results Start: 09-21-2024 ambulatory Magan Amador Facility :[facility] Start: 09-14-2024 End: 09-14-2024 Follow-up encounter Marjan Vergara APRN.CNP Work Phone: [facility] Start: 09-14-2024 End: 09-14-2024 Ophthalmic examination and evaluation Magan Amador MD Work Phone: [facility] Start: 09-14-2024 End: 09-14-2024 Patient encounter procedure Magan Amador MD Work Phone: [facility] Comment on above: Encounter for Medica re annual wellness exam (Primary Dx); Type 2 diabetes mellitus with stage 3b chronic kidney disease, without long-term current use of insulin ([facility]); Essential hypertension; Mixed hyperlipidemia; Gastroesophageal reflux disease without esophagitis; Migraine without aura and without status migrainosus, not intractable; 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; Stage 3b chronic kidney disease (HCC); Paroxysmal atrial fibrillation ([facility]); Moderate pulmonary hypertension ([facility]); Iron deficiency anemia, unspecified iron deficiency anemia type; Dementia with behavioral disturbance ([facility]); Bilateral carotid artery stenosis; Current moderate episode of major depressive disorder without prior episode ([facility]); Fibromyalgia; Insomnia, unspecified type; RLS (restless legs syndrome); Colostomy in place ([facility]); Age-related osteoporosis without current pathological fracture; Diabetic eye exam ([facility]); Medication management Start: 09-14-2024 End: 09-14-2024 ambulatory MAGAN AMADOR Facility:[facility] Start: 09-14-2024 End: 09-14-2024 Subsequent hospital visit by physician [facility] Comment on above: Breast skin changes [R23.4] Start: 08-25-2024 ambulatory Rena lambertty:[facility] Start: 08-24-2024 End: 08-24-[address] César Partida MD -[facility] Work Phone: Start: 08-24-2024 End: 08-24-2024 ambulatory César Partida Facility:[facility] Start: 07-27-2024 End: 07-27-2024 Refill Magan Amador MD Work Phone: [facility] [place] Comment on above: Refill Request Start: 07-26-2024 End: 07-26-2024 ambulatory César Partida Facility:[facility] Start: 07-16-2024 End: 07-19-2024 Telephone encounter Brain Ivy MD Work Phone: Orthopaedics Comment on above: Orders Start: 07-13-2024 End: 07-13-2024 Telephone encounter Heaven Garg PA-C Work Phone: Mammogram Comment on above: Orders Start: 07-05-2024 End: 07-05-2024 Patient encounter procedure Brain Ivy MD Work Phone: Orthopaedics Comment on above: 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 551] Start: 07-05-2024 End: 07-05-2024 ambulatory BRAIN IVY Facility:[facility] Start: 07-05-2024 End: 07-05-2024 Patient encounter procedure Heaven Garg PA-C Work Phone: [facility] [place] Comment on above: Breast skin changes (Primary Dx); Encounter for immunization Start: 06-18-2024 End: 06-30-2024 Telephone encounter Fidelia Yanes MA [facility] Comment on above: Patient Update (Emily er from [employer] and patient ) Start: 06-14-2024 End: 06-14-2024 Orders Only Brain Ivy MD Work Phone: Orthopaedics Comment on above: Right hip pain (Prim sebastien Dx) Start: 06-10-2024 End: 06-10-2024 Telephone encounter Magan Amador MD Work Phone: [facility] Comment on above: Patient Request Start: 06-03-2024 End: 06-03-2024 Refill Magan Amador MD Work Phone: [facility] Comment on above: Refill Request requesting medicatio n Start: 05-26-2024 End: 06-04-2024 Telephone encounter Magan Amador MD Work Phone: [facility] Comment on above: Letter Start: 05-13-2024 End: 05-13-2024 ambulatory Zach Donovan RN Work Phone: [facility] Comment on above: community monitoring outreach (CDM-Telephonic outreach) Start: 05-12-2024 End: 05-12-2024 ambulatory Zach Donovan RN Work Phone: [facility] Comment on above: community monitoring outreach (CDM-Telephonic outreach) Start: 05-10-2024 End: 05-10-2024 Refill Magan Amador MD Work Phone: [facility] Comment on above: Refill Request Start: 04-26-2024 End: 04-26-2024 Telephone encounter Magan Amador MD Work Phone: [facility] [place] Comment on above: Patient Request Start: 04-19-2024 End: 04-20-2024 Refill Magan Amador MD Work Phone: [facility] [place] Comment on above: Refill Request Start: 04-14-2024 End: 04-14-2024 ambulatory Zach Donovan RN Work Phone: [facility] Comment on above: community monitoring outreach (CDM-Telephonic outreach) Start: 04-13-2024 End: 04-13-2024 ambulatory Zach Donovan RN Work Phone: [facility] Comment on above: community monitoring outreach (CDM-Telephonic outreach) Start: 04-06-2024 [facility] Start: 03-31-2024 Ophthalmic examinati on and evaluation Zach Donovan RN Work Phone: [facility] Start: 03-11-2024 End: 03-11-2024 ambulatory Zach Donovan RN Work Phone: [facility] Comment on above: community monitoring outreach (CDM-Telephonic outreach) Start: 03-10-2024 End: 03-11-2024 Telephone encounter Heaven Garg PA-C Work Phone: [facility] Comment on above: Diabetic Eye Exam Results Start: 03-09-2024 End: 03-09-2024 ambulatory MAGAN AMADOR Facility:[facility] Start: 03-09-2024 End: 03-09-2024 Patient encounter procedure Heaven Garg PA-C Work Phone: [facility] Comment on above: Essential hypertensi on (Primary Dx); Mixed hyperlipidemia; Paroxysmal atrial fibrillation (HCC); Type 2 diabetes mellitus without complication, without long-term current use of insulin (HCC); Stage 3b chronic kidney disease (HCC); Iron deficiency anemia, unspecified iron deficiency anemia type; 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; Gastroesophageal reflux disease without esophagitis; Schatzki's ring; Current moderate episode of major depressive disorder without prior episode (HCC); Dementia with behavioral disturbance (HCC); Abnormal thyroid blood test; Medication management Start: 02-11-2024 End: 02-11-2024 ambulatory Zach Donovan RN Work Phone: [facility] Comment on above: community monitoring outreach (CDM-Telephonic outreach) Start: 01-28-2024 Refill Magan salmeron MD Work Phone: [facility] Comment on above: Refill Request Start: 01-06-2024 ambulatory Zach Donovan RN Work Phone: [facility] Comment on above: community monitoring outreach (CDM-Telephonic outreach) Start: 01-01-2024 End: 01-01-2024 Emergency department patient visit [facility] Start: 12-29-2023 End: 12-29-2023 Emergency department patient visit [facility] Start: 12-22-2023 End: 12-22-2023 Emergency department patient visit [facility] Start: 12-18-2023 End: 12-18-2023 Emergency department patient visit [facility] Start: 12-08-2023 ambulatory Zach Donovan RN Work Phone: [facility] Start: 12-05-2023 ambulatory Zach Donovan RN Work Phone: [facility] Comment on above: community monitoring outreach (CDM-Telephonic outreach) Start: 11-19-2023 Refill Magan salmeron MD Work Phone: [facility] Comment on above: Refill Request Start: 11-16-2023 End: 11-16-2023 Emergency department patient visit [facility] Start: 11-11-2023 Refill Marjan garcia APRN.CNP Work Phone: [facility] [place] Comment on above: Refill Request Start: 11-06-2023 ambulatory Zach Donovan RN Work Phone: [facility] [employer] [employer] Comment on above: community monitoring outreach (CDM-Telephonic outreach) Start: 10-17-2023 Telephone encounter Heaven solis PA-C Work Phone: [facility] Comment on above: Results; Appointment Start: 10-15-2023 Telephone encounter Magan Amador MD Work Phone: [facility] Comment on above: Tic Disorder (Organi c) Start: 10-13-2023 Documentation procedure Mammog neil Coordinator [facility] Department Start: 10-13-2023 Letter encounter Mammography Coordinator [facility] Start: 10-10-2023 End: 10-10-2023 Subsequent hospital visit by physician [facility] Work Phone: Radiology Comment on above: Asymptomatic postmen opausal status [Z78.0] Encounter for screen ing mammogram for breast cancer [Z12.31] Start: 10-06-2023 ambulatory Zach Donovan RN Work Phone: [facility] [employer] Comment on above: community monitoring outreach (CDM-Telephonic outreach) Start: 09-09-2023 Telephone encounter Heaven solis PA-C Work Phone: [facility] Comment on above: Results Start: 09-08-2023 End: 09-08-2023 Ophthalmic examination and evaluation Heaven Garg PA-C Work Phone: [facility] Work Phone: Start: 09-08-2023 End: 09-08-2023 Patient encounter procedure Heaven Garg PA-C Work Phone: [facility] Comment on above: Encounter for Medica re annual wellness exam (Primary Dx); Encounter for immunization; Screening for osteoporosis; Asymptomatic menopause; Type 2 diabetes mellitus without complication, without long-term current use of insulin (HCC); Asymptomatic postmenopausal status; Insomnia, unspecified type; Migraine without aura and without status migrainosus, not intractable; 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; Essential hypertension; Mixed hyperlipidemia; Paroxysmal atrial fibrillation (HCC); Stage 3b chronic kidney disease (HCC); Medication management; Age-related osteoporosis without current pathological fracture; Schatzki's ring; Moderate pulmonary hypertension ([facility]); Gastroesophageal reflux disease without esophagitis; Current moderate episode of major depressive disorder without prior episode ([facility]); Dementia with behavioral disturbance ([facility]); Bilateral carotid artery stenosis; Diabetic eye exam ([facility]); Living will in place Start: 09-05-2023 Refill Marjan garcia APRN.CNP Work Phone: [facility] Comment on above: Refill Request Start: 09-05-2023 Refill [facility] Comment on above: Refill Request Start: 09-04-2023 Chart abstracting Magan alvarez MD Work Phone: [facility] Comment on above: Outside [id number] Ordered Start: 09-03-2023 ambulatory Zach Donovan RN Work Phone: [facility] Comment on above: community monitoring outreach (CDM-Telephonic outreach) Start: 09-01-2023 End: 09-01-[address] Magan Amador Work Phone: [facility] Work Phone: Start: 09-01-2023 End: 09-01-[address] Magan Amador Work Phone: [facility] Work Phone: Start: 08-12-2023 Telephone encounter Magan Amador MD Work Phone: [facility] Comment on above: Smoking Cessation Start: 07-31-2023 ambulatory Zach Donovan RN Work Phone: [facility] Comment on above: community monitoring outreach (CDM-Telephonic outreach) Start: 06-12-2023 End: 06-12-[address] Magan Amador Work Phone: [facility] Work Phone: Start: 06-10-2023 Refill Magan salmeron MD Work Phone: [facility] Comment on above: Refill Request Start: 05-30-2023 Telephone encounter Magan Amador MD Work Phone: [facility] Comment on above: Results Start: 05-12-2023 Telephone encounter Magan Amador MD Work Phone: [address] [place] [address] Comment on above: Orders Start: 04-29-2023 Chart abstracting Magan alvarez MD Work Phone: [facility] Comment on above: Outside Imaging Start: 04-21-2023 ambulatory Zach Donovan RN Work Phone: [facility] Comment on above: community monitoring outreach (CDM-Telephonic outreach) Start: 04-16-2023 ambulatory Magan salmeron MD Work Phone: Internal Medicine [facility] [place] Start: 04-16-2023 Chart abstracting Magan alvarez MD Work Phone: [facility] Comment on above: outside imaging Start: 04-11-2023 Chart abstracting Magan alvarez MD Work Phone: [facility] Comment on above: Outside Imaging Start: 03-25-2023 Refill Magan salmeron MD Work Phone: [facility] Comment on above: Refill Request Start: 03-18-2023 ambulatory Zach Donovan RN Work Phone: [facility] Comment on above: community monitoring outreach (CDM-Telephonic outreach) Start: 03-13-2023 End: 03-13-2023 Patient encounter procedure Brain Ivy MD Work Phone: Orthopaedics Comment on above: Closed fracture of d istal end of right radius, unspecified fracture morphology, initial encounter (Primary Dx) Start: 02-12-2023 ambulatory Zach Donovan RN Work Phone: [facility] Comment on above: communtiy monitoring outreach (CDM-Telephonic outreach) Start: 02-04-2023 ambulatory Jemima tavares PA-C Work Phone: Pulmonary Medicine Start: 01-28-2023 End: 01-28-2023 Patient encounter procedure Magan Amador MD Work Phone: [facility] Comment on above: Gastritis without bl eeding, unspecified chronicity, unspecified gastritis type (Primary Dx); CINDY (acute kidney injury) (HCC); Dehydration; Essential hypertension; Type 2 diabetes mellitus without complication, without long-term current use of insulin (HCC) Start: 01-08-2023 Evaluation and management of inpatient Dr. Magan Amador [facility] Work Phone: Start: 01-08-2023 Telephone encounter Heaven solis PA-C Work Phone: [facility] Comment on above: Results Patient Update Start: 01-07-2023 Telephone encounter Magan Amador MD Work Phone: [facility] Comment on above: Requesting lab; Resu lts Start: 01-07-2023 End: 01-07-2023 Patient encounter procedure Heaven Garg PA-C Work Phone: [facility] Comment on above: Hospital discharge f ollow-up (Primary Dx); CINDY (acute kidney injury) (HCC); Unstable angina (HCC); QUINTANILLA (dyspnea on exertion); Gastroesophageal reflux disease without esophagitis; Type 2 diabetes mellitus without complication, without long-term current use of insulin (HCC); Stage 3b chronic kidney disease (HCC); Colostomy in place (HCC); SOB (shortness of breath) Start: 01-01-2023 ambulatory Fidelia Yanes MA [facility] Start: 12-31-2022 Non-patient / Non-visit Dr. Darell Amador Work Phone: [facility] Work Phone: Start: 12-31-2022 Non-patient / Non-visit Dr. Darell Amador Work Phone: [facility] Start: 12-30-2022 Non-patient / Non-visit Dr. Darell Amador Work Phone: [facility] Work Phone: Start: 12-30-2022 Non-patient / Non-visit Dr. Darell Amador Work Phone: [facility] Start: 12-29-2022 Non-patient / Non-visit Dr. Darell Amador Work Phone: [facility] Start: 12-29-2022 Non-patient / Non-visit Dr. Darell Amador Work Phone: [facility] Work Phone: Start: 12-28-2022 Non-patient / Non-visit Dr. Darell Amador Work Phone: [facility] Work Phone: Start: 12-27-2022 Non-patient / Non-visit Dr. Darell Amador Work Phone: [facility] Work Phone: Start: 12-27-2022 Non-patient / Non-visit Dr. Darell Amador Work Phone: [facility] Start: 12-26-2022 Non-patient / Non-visit Dr. Darell Amador Work Phone: [facility] Work Phone: Start: 12-26-2022 End: 12-31-2022 Evaluation and management of inpatient Dr. Magan Amador Work Phone: [facility] Work Phone: Start: 12-26-2022 Evaluation and management of inpatient Dr. Magan Amador Work Phone: [facility] Work Phone: Start: 12-26-2022 End: 12-26-2022 Patient encounter procedure Heaven Garg PA-C Work Phone: [facility] Comment on above: Chest pressure (Prim sebastien Dx); QUINTANILLA (dyspnea on exertion); 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 Start: 12-13-2022 Telephone encounter Heaven solis PA-C Work Phone: [facility] Comment on above: Results Start: 12-12-2022 End: 12-12-[address] Magan Amador Work Phone: [facility] Work Phone: Start: 12-12-2022 End: 12-12-2022 Patient encounter procedure Hevaen Garg PA-C Work Phone: [facility] Comment on above: Other symptoms and s igns involving the nervous system (Primary Dx); Transient cerebral ischemia, unspecified type; Right sided weakness; Right foot drop; Numbness of right foot; Dementia with behavioral disturbance (HCC); Mixed hyperlipidemia; 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 Start: 12-11-2022 ambulatory Zach Donovan RN Work Phone: [facility] Comment on above: community monitoring outreach (CDM-Telephonic outreach) Start: 12-09-2022 ambulatory Magan salmeron MD Work Phone: [facility] Comment on above: Right leg numbness Start: 11-26-2022 Telephone encounter Magan Amador MD Work Phone: [facility] Comment on above: Patient Update Start: 11-21-2022 Telephone encounter Brain freeman MD Work Phone: Orthopaedics Comment on above: Orders (MRI) Start: 11-11-2022 End: 11-11-2022 Patient encounter procedure Brain Ivy MD Work Phone: [facility] Work Phone: Comment on above: Chronic right should er pain (Primary Dx); Impingement syndrome of right shoulder; Acute pain of left shoulder; Shoulder impingement Start: 10-24-2022 Telephone encounter Brain freeman MD Work Phone: Orthopaedics Comment on above: Appointment Start: 10-08-2022 ambulatory Zach Donovan RN Work Phone: [facility] Comment on above: community monitoring outreach (CDM-Telephonic outreach) Start: 10-04-2022 Refill Magan salmeron MD Work Phone: [facility] Comment on above: Refill Request Start: 09-09-2022 Refill [facility] Comment on above: Refill Request Start: 09-02-2022 ambulatory Zach Donovan RN Work Phone: [facility] Comment on above: community monitoring outreach (CDM-Telephonic outreach) Start: 08-20-2022 Refill Magan salmeron MD Work Phone: [facility] Comment on above: Refill Request Start: 08-13-2022 Telephone encounter Heaven Ana solis PA-C Work Phone: [facility] Comment on above: Results Start: 08-12-2022 Telephone encounter Heaven Ana echeverriaon PA-C Work Phone: [facility] Comment on above: Lab Orders Blood Sugar Readings Start: 08-02-2022 ambulatory Zach Donovan RN Work Phone: [facility] Comment on above: community monitoring outreach (CDM-Telephonic outreach/) Start: 07-08-2022 Refill [facility]on MD [facility] Comment on above: Refill Request Start: 06-20-2022 Telephone encounter Heaven Ana solis PA-C Work Phone: [facility] Comment on above: Patient Update Start: 06-19-2022 End: 06-19-2022 Emergency department patient visit [facility] Start: 06-18-2022 End: 06-18-2022 Emergency department patient visit [facility] Start: 06-10-2022 Refill Magan salmeron MD Work Phone: [facility] Comment on above: Refill Request Patient Update Start: 06-05-2022 Refill Magan salmeron MD Work Phone: [facility] Comment on above: Refill Request Start: 05-29-2022 ambulatory Zach Donovan RN Work Phone: [facility] Comment on above: community monitoring outreach (CDM telephonic outreach/) Start: 05-20-2022 Telephone encounter Heaven Ana solis PA-C Work Phone: [facility] Comment on above: Results Start: 05-10-2022 Non-patient / Non-visit Dr. Darell Amador Work Phone: [facility] Start: 05-09-2022 Telephone encounter Heaven Ana solis PA-C Work Phone: [facility] Comment on above: Orders Start: 05-08-2022 End: 05-08-[address] Magan Amador Work Phone: [facility] Start: 05-08-2022 ambulatory Zach Donovan RN Work Phone: [facility] Comment on above: community monitoring outreach (CDM engagement) Start: 05-08-2022 End: 05-08-2022 Patient encounter procedure Heaven Garg PA-C Work Phone: [facility] Comment on above: Encounter for Medica re annual wellness exam (Primary Dx); Advance directive discussed with patient; Glaucoma suspect of both eyes; Cataract, unspecified cataract type, unspecified laterality; Ex-smoker; Flushing; Essential hypertension; Mixed hyperlipidemia; 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; Migraine without aura and without status migrainosus, not intractable; Gastroesophageal reflux disease without esophagitis; Moderate pulmonary hypertension (HCC); Paroxysmal atrial fibrillation (HCC); Stage 3b chronic kidney disease (HCC); Type 2 diabetes mellitus without complication, without long-term current use of insulin (HCC); Abnormal thyroid blood test; Bilateral carotid artery disease, unspecified type (HCC); Encounter for immunization; Hot flashes; Fatigue, unspecified type; Screening mammogram for breast cancer Start: 05-08-2022 Non-patient / Non-visit Dr. Darell Amador Work Phone: [facility] Start: 05-08-[address] Magan Amador Work Phone: [facility] Start: 05-07-2022 Refill Magan salmeron MD Work Phone: [facility] Comment on above: Refill Request Start: 05-06-2022 End: 05-06-[address] Magan Amador Work Phone: [facility] Work Phone: Start: 05-06-2022 End: 05-06-[address] Magan Amador Work Phone: [facility] Start: 04-08-2022 Refill Magan salmeron MD Work Phone: [facility] Comment on above: Refill Request Start: 04-03-2022 Refill Magan salmeron MD Work Phone: [facility] Comment on above: Refill Request Start: 03-11-2022 End: 03-11-[address] aMgan Amador [facility] Start: 02-27-2022 Refill Magan salmeron MD Work Phone: [facility] Comment on above: Refill Request Start: 02-26-2022 End: 02-26-[address] Magan Amador [facility] Start: 02-26-2022 End: 02-26-[address] Magan Amador Work Phone: [facility] Work Phone: Start: 02-26-2022 End: 02-26-[address] Magan Amador Work Phone: [facility] Start: 02-21-2022 Telephone encounter Brain freeman MD Work Phone: Orthopaedics Comment on above: Appointment; Patient Question Hip Pain Start: 02-04-2022 Refill Magan salmeron MD Work Phone: [facility] Comment on above: Refill Request Start: 01-24-2022 End: 01-24-2022 Patient encounter procedure Brain Ivy MD Work Phone: Orthopaedics Comment on above: Chronic right should er pain (Primary Dx); Impingement syndrome of right shoulder; Primary osteoarthritis of right hip; Chronic pain of right hip Start: 01-24-2022 End: 01-24-2022 Subsequent hospital visit by physician [facility] Work Phone: Radiology Comment on above: Pain in right hip [M 25.551] Start: 01-23-2022 ambulatory Jaydon Jeffers RN [facility] Comment on above: Community Monitoring Outreach (CKD CDM Outreach) Pain in left hip (Pr imary Dx) Start: 01-10-2022 Non-patient / Non-visit Dr. Darell Amador Work Phone: [facility] Start: 01-10-2022 End: 01-10-[address] Magan Amador Work Phone: [facility] Start: 01-02-2022 Telephone encounter Magan Amador MD Work Phone: [facility] Comment on above: Medication Question Start: 12-31-2021 Refill Magan salmeron MD Work Phone: [facility] Comment on above: Prescription Refills Start: 12-28-2021 Refill Magan salmeron MD Work Phone: [facility] Comment on above: Refill Request Start: 12-20-2021 ambulatory Jaydon Jeffers RN [facility] Comment on above: Community Monitoring Outreach (CKD CDM Outreach) Start: 12-19-2021 ambulatory Magan salmeron MD Work Phone: Internal Medicine [facility] [place] Start: 12-17-2021 End: 12-17-[address] Magan Amador Work Phone: [facility] Start: 12-17-2021 End: 12-17-[address] Magan Amador Work Phone: [facility] Start: 12-13-2021 ambulatory Jaydon Jeffers RN [facility] Comment on above: Community Monitoring Outreach (CKD CDM Outreach) Start: 11-09-2021 Refill Magan salmerno MD Work Phone: [facility] Comment on above: Refill Request Start: 11-05-2021 Refill Magan salmeron MD Work Phone: [facility] Comment on above: Refill Request Start: 10-24-2021 ambulatory Jaydon Jeffers RN [facility] Comment on above: Community Monitoring Outreach (CKD CDM Outreach) Start: 10-19-2021 ambulatory Jaydon Jeffers RN [facility] Comment on above: Community Monitoring Outreach (CKD CDM Outreach) Refill Request Start: 09-21-2021 ambulatory Jaydon Jeffers RN [facility] Comment on above: Community Monitoring Outreach (CKD CDM Enrollment) Start: 09-14-2021 Ophthalmic examinati on and evaluation Jaydon Jeffers RN [facility] Start: 09-13-2021 Telephone encounter Heaven solis PA-C Work Phone: [facility] Comment on above: Requesting office no colt and labs Start: 09-05-2021 End: 09-05-[address] Magan Amador Work Phone: [facility] Start: 01-15-2021 Patient encounter procedure Heaven Garg PA-C Work Phone: [facility] Work Phone: Start: 12-25-2017 [facility] Facility :[facility] Start: 06-26-2017 End: 06-26-2017 [facility] Start: 06-26-2017 End: 07-19-2019 Patient encounter status Mammography Coordinator [facility] Start: 05-09-2017 [facility] Facility :[facility] Procedures Date Procedure Procedure Detail Performing Clinician Start: 01-25-[address] Magan hayes MD Work Phone: Start: 09-21-2024 Blood count hemoglobin Rena Encarnacion Comment on above: Performed By: #### CBCAD #### [facility] [address] [address] Start: 09-14-2024 Us breast uni real time with image limited Heaven Garg PA-C Work Phone: Start: 09-14-2024 Digital breast tomosynthesis bilateral Heaven Garg PA-C Work Phone: Start: 07-05-2024 Radex hip unilateral with pelvis 2-3 views Brain Ivy MD Work Phone: Start: 07-05-2024 [employer] COVID-19 VACCINE AGE 12+ YR (COMIRNATY) Heaven Garg PA-C Work Phone: Start: 09-08-2023 INFLUENZA VACCINE, PRSV FREE, AGE 65+ YR, HIGH DOSE, QUADRIVALENT (FLUZONE HIGH-DOSE) Heaven Garg PA-C Work Phone: Start: 09-01-2023 X-ray of lumbar spine, two or three views Dr. Magan Amador Work Phone: Start: 01-08-2023 Plain chest X-ray Dr. Magan Amador Work Phone: Start: 12-26-[address] Magan Amador Work Phone: Start: 12-26-2022 Plain chest X-ray Dr. Magan Amador Work Phone: Start: 11-11-2022 Arthrocentesis aspir&/inj major jt/bursa w/o us Brain Ivy MD Work Phone: Start: 05-08-2022 INFLUENZA SEASONAL QUADRIVALENT HIGH DOSE AGE 65+ Heaven Garg PA-C Work Phone: Start: 05-08-2022 [employer] COVID-19 BIVALENT BOOSTER VACCINE, AGE 12+ YR Heaven Garg PA-C Work Phone: Start: 03-11-[address] Magan Amador Work Phone: Start: 02-26-[address] Magan martin Work Phone: Start: 01-24-2022 Arthrocentesis aspir&/inj major jt/bursa w/o us Brain Ivy MD Work Phone: Start: 01-24-2022 Radex hip unilateral with pelvis 2-3 views Brain Ivy MD Work Phone: Start: 01-10-2022 Cardiovascular stress test using pharmacologic stress agent Dr. Magan Amador Work Phone: Start: 02-21-2020 Colonoscopy Heaven Garg PA-C Work Phone: Start: 06-18-2018 Mammography Heaven Garg PA-C Work Phone: Start: 04-23-2013 History of placement of stent for coronary artery disease History of coronary artery stent placement Dr. Magan Amador Work Phone: Comment on above: PCI/NESHA to LMT @ [facility] 05/06/13 H/O: colostomy History of colostomy Dr. Magan Amador Work Phone: History of repair of musculotendinous cuff of shoulder Status post rotator cuff repair Brain Ivy MD Work Phone: Plan of Treatment Date Care Activity Detail Author Start: 02-20-2030 Colonoscopy COLONOSCOPY [facility] Start: 02-20-2030 COLORECTAL CANCER SCREENING COLORECTAL CANCER SCREENING [facility] Start: 02-20-2030 Screening for malignant neoplasm of colon [facility] Start: 2029 RSV Vaccine (1 - 1-dose 75+ series) RSV Vaccine (1 - 1-dose 75+ series) [facility] Start: 12-30-2027 Urine microalbumin profile [facility] Start: 10-09-2025 Screening for osteoporosis Bone Density Screening [facility] Start: 09-14-2025 Annual PCP Team Chronic Disease Visit Annual PCP Team Chronic Disease Visit [facility] Start: 09-14-2025 BP Controlled (<130/80) BP Controlled (<130/80) [facility] in Start: 09-14-2025 Diabetic foot examination Diabetic Foot Exam [facility] Start: 09-14-2025 Screening for malignant neoplasm of breast Mammogram Screening [facility] Start: 09-14-2025 Screening for malignant neoplasm of lung Lung Cancer Screening [facility] Comment on above: Postponed from 03/11/2023 (Declined at t his time) Start: 09-14-2025 zzBP Controlled (<130/80) (Retired) zzBP Controlled (<130/80) (Retired) [facility] Start: 07-05-2025 Annual PCP Team Chronic Disease Visit Annual PCP Team Chronic Disease Visit [facility] Start: 07-05-2025 BP Controlled (<130/80) BP Controlled (<130/80) [facility] in Start: 03-17-2025 End: 03-17-2025 Patient encounter procedure 03/17/2025 12:00 PM EDT Office Visit Family Lilly Tao [address] [place], [place] [id number] Heaven Garg PA-C [address] [place], [place] [id number] 6 month follow up Family Lilly Tao Comment on above: 6 month follow up Start: 03-09-2025 Annual PCP Team Chronic Disease Visit Annual PCP Team Chronic Disease Visit [facility] Start: 03-09-2025 BP Controlled (<130/80) BP Controlled (<130/80) [facility] Start: 03-09-2025 Complete blood count Hemoglobin/Hematocrit [facility] Start: 03-09-2025 Creatinine measurement Serum Creatinine [facility] Start: 03-09-2025 Hepatitis B screening Urine Albumin:Creatinine Ratio [facility] Start: 03-09-2025 Hepatitis B surface antibody level LDL Cholesterol [facility] Start: 01-25-2025 Patient discharge [facility] Start: 01-20-2025 Glaucoma screening Dilated Retinal Exam [facility] Start: 01-02-2025 Covid-19 Vaccine ( season) Covid-19 Vaccine ( season) [facility] Start: 11-30-2024 End: 11-30-2024 Patient encounter procedure 11/30/2024 11:00 AM EDT Office Visit [facility] [address] [place], [place] [id number] Bilateral carotid artery stenosis [I65.23] [facility] Comment on above: Bilateral carotid artery stenosis [I65.2 3] Start: 10-09-2024 Screening for malignant neoplasm of breast Mammogram Screening [facility] Start: 09-14-2024 End: 12-14-2024 CBC W Auto Differential panel - Blood COMPLETE BLOOD COUNT AND DIFFERENTIAL Lab Routine Type 2 diabetes mellitus with stage 3b chronic kidney disease, without long-term current use of insulin (HCC) Stage 3b chronic kidney disease (HCC) Iron deficiency anemia, unspecified iron deficiency anemia type Expected: 09/14/2024, Expires: 12/14/2024 [facility] Comment on above: Expected: 09/14/2024, Expires: Start: 09-14-2024 End: 12-14-2024 Cobalamin (Vitamin B12) [Mass/volume] in Serum or Plasma VITAMIN B12 Lab Routine Gastroesophageal reflux disease without esophagitis Medication management Expected: 09/14/2024, Expires: 12/14/2024 Work Phone: Comment on above: Expected: 09/14/2024, Expires: Start: 09-14-2024 End: 12-14-2024 Comprehensive metabolic 2000 panel - Serum or Plasma COMPREHENSIVE METABOLIC PANEL Lab Routine Type 2 diabetes mellitus with stage 3b chronic kidney disease, without long-term current use of insulin (HCC) Essential hypertension Mixed hyperlipidemia 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 Expected: 09/14/2024, Expires: 12/14/2024 [facility] Comment on above: Expected: 09/14/2024, Expires: Start: 09-14-2024 End: 12-14-2024 Ferritin [Mass/volume] in Serum or Plasma FERRITIN Lab Routine Iron deficiency anemia, unspecified iron deficiency anemia type Expected: 09/14/2024, Expires: 12/14/2024 [facility] Comment on above: Expected: 09/14/2024, Expires: Start: 09-14-2024 End: 12-14-2024 Folate [Mass/volume] in Serum or Plasma FOLATE, SERUM Lab Routine Medication management Expected: 09/14/2024, Expires: 12/14/2024 [facility] Comment on above: Expected: 09/14/2024, Expires: Start: 09-14-2024 End: 12-14-2024 Hemoglobin A1c in Blood HEMOGLOBIN A1C Lab Routine Type 2 diabetes mellitus with stage 3b chronic kidney disease, without long-term current use of insulin (HCC) Expected: 09/14/2024, Expires: 12/14/2024 [facility] Comment on above: Expected: 09/14/2024, Expires: Start: 09-14-2024 End: 12-14-2024 Iron and Iron binding capacity panel - Serum or Plasma IRON AND TIBC Lab Routine Iron deficiency anemia, unspecified iron deficiency anemia type Expected: 09/14/2024, Expires: 12/14/2024 [facility] Comment on above: Expected: 09/14/2024, Expires: Start: 09-14-2024 End: 12-14-2024 LIPID PANEL, NONFASTING LIPID PANEL, NONFASTING Lab Routine Type 2 diabetes mellitus with stage 3b chronic kidney disease, without long-term current use of insulin ([facility]) Essential hypertension Mixed hyperlipidemia 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 Bilateral carotid artery stenosis Expected: 09/14/2024, Expires: 12/14/2024 [facility] Comment on above: Expected: 09/14/2024, Expires: Start: 09-14-2024 End: 12-14-2024 Magnesium [Mass/volume] in Serum or Plasma MAGNESIUM Lab Routine Gastroesophageal reflux disease without esophagitis Medication management Expected: 09/14/2024, Expires: 12/14/2024 [facility] Comment on above: Expected: 09/14/2024, Expires: Start: 09-14-2024 End: 12-14-2024 Microalbumin/Creatinine [Mass Ratio] in Urine ALBUMIN/CREATININE RATIO, URINE Lab Routine Type 2 diabetes mellitus with stage 3b chronic kidney disease, without long-term current use of insulin ([facility]) Expected: 09/14/2024, Expires: 12/14/2024 [facility] Comment on above: Expected: 09/14/2024, Expires: Start: 09-14-2024 End: 12-14-2024 Thyrotropin [Units/volume] in Serum or Plasma THYROID STIMULATING HORMONE Lab Routine Paroxysmal atrial fibrillation (HCC) Expected: 09/14/2024, Expires: 12/14/2024 [facility] Comment on above: Expected: 09/14/2024, Expires: Start: 09-14-2024 End: 12-14-2024 Urinalysis complete panel - Urine URINALYSIS, WITH MICROSCOPIC Lab Routine Type 2 diabetes mellitus with stage 3b chronic kidney disease, without long-term current use of insulin (HCC) Essential hypertension Mixed hyperlipidemia Stage 3b chronic kidney disease (HCC) Expected: 09/14/2024, Expires: 12/14/2024 [facility] Comment on above: Expected: 09/14/2024, Expires: Start: 09-14-2024 End: 09-14-2024 Patient encounter procedure [facility] Comment on above: Medicare Wellness Breast skin changes [R23.4] did phone note for b ilat pt due in september Comp- RT cyst aerola 11oclock Breast skin changes due for bilat Comp- RT cyst aerola 11oclock Breast skin changes due for bilat Start: 09-07-2024 Annual PCP Team Chronic Disease Visit Annual PCP Team Chronic Disease Visit [facility] Start: 09-07-2024 Covid-19 Vaccine () Covid-19 Vaccine () [facility] Comment on above: Postponed from 02/21/2023 (Declined at t his time) Start: 09-07-2024 Creatinine measurement Serum Creatinine [facility] Start: 09-07-2024 Diabetic foot examination Diabetic Foot Exam [facility] Start: 09-07-2024 Hepatitis B surface antibody level LDL Cholesterol [facility] Start: 09-06-2024 Hemoglobin A1c measurement HbA1C [facility] Start: 07-05-2024 End: 07-05-2024 Patient encounter procedure 07/05/2024 2:45 PM EST Office Visit Orthopaedics [address] [place] [address] Brain Ivy MD [address] [place] [address] Rt hip cortisone inj Orthopaed[facility] Comment on above: Rt hip cortisone inj Start: 07-05-2024 End: 07-05-2024 Patient encounter procedure 07/05/2024 1:20 PM EST Office Visit Family Lilly Tao [address] [place] [address] Heaven Garg PA-C [address] [place], [place] [id number] right breast concern- see phone note for more details Family Lilly Tao Comment on above: right breast concern- see phone note for more details Start: 06-23-2024 Advance Directive Discussion Advance Directive Discussion [facility] Start: 05-28-2024 Complete blood count Hemoglobin/Hematocrit [facility] Start: 05-28-2024 Hemoglobin/Hematocrit Hemoglobin/Hematocrit [facility] Start: 05-28-2024 Hepatitis B surface antibody level LDL Cholesterol [facility] Start: 03-10-2024 End: 06-09-2024 Ferritin [Mass/volume] in Serum or Plasma FERRITIN Lab Routine Anemia, unspecified type Expected: 03/10/2024, Expires: 06/09/2024 [facility] Comment on above: Expected: 03/10/2024, Expires: 4 Start: 03-10-2024 End: 06-09-2024 Folate [Mass/volume] in Serum or Plasma FOLATE, SERUM Lab Routine Anemia, unspecified type Expected: 03/10/2024, Expires: 06/09/2024 Work Phone: Comment on above: Expected: 03/10/2024, Expires: 4 Start: 03-10-2024 Hemoglobin A1c measurement HbA1C [facility] Start: 03-10-2024 End: 03-10-2024 Patient encounter procedure 03/10/2024 1:40 PM EDT Office Visit Family Lilly Tao [address] [place] [address] Magan Amador MD [address] [place] [address] 6 month f/u Family Lilly Tao Comment on above: 6 month f/u Start: 03-09-2024 End: 06-08-2024 Cobalamin (Vitamin B12) [Mass/volume] in Serum or Plasma [facility] Comment on above: Expected: 03/09/2024, Expires: 4 Start: 03-09-2024 End: 06-08-2024 Comprehensive metabolic 2000 panel - Serum or Plasma [facility] Comment on above: Expected: 03/09/2024, Expires: 4 Start: 03-09-2024 End: 06-08-2024 Hemoglobin A1c in Blood Work Phone: Comment on above: Expected: 03/09/2024, Expires: Start: 03-09-2024 End: 06-08-2024 Iron and Iron binding capacity panel - Serum or Plasma [facility] Comment on above: Expected: 03/09/2024, Expires: Start: 03-09-2024 End: 06-08-2024 LIPID PANEL, NONFASTING [facility] Comment on above: Expected: 03/09/2024, Expires: Start: 03-09-2024 End: 06-08-2024 Magnesium [Mass/volume] in Serum or Plasma [facility] Comment on above: Expected: 03/09/2024, Expires: 4 Start: 03-09-2024 End: 06-08-2024 Microalbumin/Creatinine [Mass Ratio] in Urine [facility] Comment on above: Expected: 03/09/2024, Expires: 4 Start: 03-09-2024 End: 06-08-2024 Thyrotropin [Units/volume] in Serum or Plasma [facility] Comment on above: Expected: 03/09/2024, Expires: 4 Start: 03-09-2024 End: 06-08-2024 Urinalysis complete panel - Urine [facility] Comment on above: Expected: 03/09/2024, Expires: Start: 03-09-2024 End: 03-09-2024 Patient encounter procedure 03/09/2024 12:40 PM EDT Office Visit [facility] [address] [facility] [place] [address] Heaven Garg PA-C [address] [place] [address] Follow up [facility] [place] Comment on above: Follow up Start: 02-25-2024 End: 02-25-2024 Patient encounter procedure 02/25/2024 11:20 AM EDT Office Visit Family Lilly Tao [address] [place] [address] Magan Amador MD [address] [place] [address] Follow up Family Lilly Tao Comment on above: Follow up Start: 02-22-2024 Covid-19 Vaccine () Covid-19 Vaccine () [facility] Start: 02-22-2024 Covid-19 Vaccine () Covid-19 Vaccine () [facility] Start: 02-22-2024 Influenza vaccination [facility] Start: 01-29-2024 ANNUAL PCP TEAM CHRONIC DISEASE VISIT ANNUAL PCP TEAM CHRONIC DISEASE VISIT [facility] Start: 01-08-2024 ANNUAL PCP TEAM CHRONIC DISEASE VISIT ANNUAL PCP TEAM CHRONIC DISEASE VISIT [facility] Start: 01-08-2024 BP CONTROLLED (<130/80) BP CONTROLLED (<130/80) [facility] in Start: 01-08-2024 Creatinine measurement Serum Creatinine [facility] Start: 01-08-2024 HEMOGLOBIN/HEMATOCRIT HEMOGLOBIN/HEMATOCRIT [facility] Start: 01-08-2024 SERUM CREATININE SERUM CREATININE [facility] Start: 12-27-2023 ANNUAL PCP TEAM CHRONIC DISEASE VISIT ANNUAL PCP TEAM CHRONIC DISEASE VISIT [facility] Start: 12-27-2023 BP CONTROLLED (<130/80) BP CONTROLLED (<130/80) [facility] in Start: 12-13-2023 ANNUAL PCP TEAM CHRONIC DISEASE VISIT ANNUAL PCP TEAM CHRONIC DISEASE VISIT [facility] Start: 11-28-2023 End: 11-28-2023 Patient encounter procedure 11/28/2023 10:40 AM EDT Office Visit Endocrinology [address] [place] [address] Sandrita Frye MD [address] [place] [address] Age-related osteoporosis without current pathological fracture [M81.0 Endocrinology Comment on above: Age-related osteoporosis without current pathological fracture [M81.0 Start: 11-27-2023 Hemoglobin A1c measurement HbA1C [facility] Start: 11-27-2023 Hemoglobin A1c/Hemoglobin.total in Blood HbA1C [facility] Start: 11-12-2023 ANNUAL PCP TEAM CHRONIC DISEASE VISIT ANNUAL PCP TEAM CHRONIC DISEASE VISIT [facility] Start: 11-12-2023 HEMOGLOBIN/HEMATOCRIT HEMOGLOBIN/HEMATOCRIT [facility] Start: 11-12-2023 Hepatitis B screening URINE ALBUMIN:CREATININE RATIO [facility] Start: 11-12-2023 Hepatitis B surface antibody level LDL CHOLESTEROL [facility] Start: 11-12-2023 SERUM CREATININE SERUM CREATININE [facility] Start: 09-08-2023 End: 12-08-2023 Basic metabolic 2000 panel - Serum or Plasma Work Phone: Comment on above: Expected: 09/08/2023, Expires: 4 Start: 09-08-2023 End: 12-08-2023 LIPID PANEL, NONFASTING Work Phone: Comment on above: Expected: 09/08/2023, Expires: 4 Start: 06-23-2023 Advance Directive Discussion Advance Directive Discussion [facility] Start: 05-14-2023 Hemoglobin A1c/Hemoglobin.total in Blood HBA1C [facility] Start: 05-12-2023 End: 08-11-2023 ALBUMIN/CREAT RATIO RND UR ALBUMIN/CREAT RATIO RND UR Lab Routine Type 2 diabetes mellitus without complication, without long-term current use of insulin (HCC) Expected: 05/12/2023, Expires: 08/11/2023 Work Phone: Comment on above: Expected: 05/12/2023, Expires: 4 Start: 05-12-2023 End: 08-11-2023 CBC W Auto Differential panel - Blood CBC + DIFF Lab Routine Iron deficiency anemia, unspecified iron deficiency anemia type Stage 3b chronic kidney disease (HCC) Type 2 diabetes mellitus without complication, without long-term current use of insulin (HCC) Expected: 05/12/2023, Expires: 08/11/2023 Work Phone: Comment on above: Expected: 05/12/2023, Expires: 4 Start: 05-12-2023 End: 08-11-2023 Cobalamin (Vitamin B12) [Mass/volume] in Serum or Plasma VITAMIN B12 BLOOD Lab Routine Gastroesophageal reflux disease without esophagitis Medication management Expected: 05/12/2023, Expires: 08/11/2023 Work Phone: Comment on above: Expected: 05/12/2023, Expires: 4 Start: 05-12-2023 End: 08-11-2023 Comprehensive metabolic 2000 panel - Serum or Plasma COMP METABOLIC PANEL Lab Routine Essential hypertension Mixed hyperlipidemia Stage 3b chronic kidney disease (HCC) Type 2 diabetes mellitus without complication, without long-term current use of insulin (HCC) Expected: 05/12/2023, Expires: 08/11/2023 Work Phone: Comment on above: Expected: 05/12/2023, Expires: 4 Start: 05-12-2023 End: 08-11-2023 Hemoglobin A1c in Blood HGB A1C Lab Routine Type 2 diabetes mellitus without complication, without long-term current use of insulin (HCC) Expected: 05/12/2023, Expires: 08/11/2023 Work Phone: Comment on above: Expected: 05/12/2023, Expires: 4 Start: 05-12-2023 End: 08-11-2023 Iron and Iron binding capacity panel - Serum or Plasma IRON + TIBC Lab Routine Iron deficiency anemia, unspecified iron deficiency anemia type Expected: 05/12/2023, Expires: 08/11/2023 Work Phone: Comment on above: Expected: 05/12/2023, Expires: 4 Start: 05-12-2023 End: 08-11-2023 LIPID PANEL, NONFASTING LIPID PANEL, NONFASTING Lab Routine 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 Essential hypertension Mixed hyperlipidemia Type 2 diabetes mellitus without complication, without long-term current use of insulin (HCC) Expected: 05/12/2023, Expires: 08/11/2023 Work Phone: Comment on above: Expected: 05/12/2023, Expires: 4 Start: 05-12-2023 End: 08-11-2023 Magnesium [Mass/volume] in Serum or Plasma MAGNESIUM BLD Lab Routine Gastroesophageal reflux disease without esophagitis Medication management Expected: 05/12/2023, Expires: 08/11/2023 Work Phone: Comment on above: Expected: 05/12/2023, Expires: 4 Start: 05-12-2023 End: 08-11-2023 Thyrotropin [Units/volume] in Serum or Plasma TSH BLD Lab Routine Medication management Expected: 05/12/2023, Expires: 08/11/2023 Work Phone: Comment on above: Expected: 05/12/2023, Expires: 4 Start: 05-12-2023 End: 08-11-2023 Urinalysis complete panel - Urine URINALYSIS, WITH MICROSCOPIC Lab Routine Essential hypertension Mixed hyperlipidemia Stage 3b chronic kidney disease (HCC) Type 2 diabetes mellitus without complication, without long-term current use of insulin (HCC) Expected: 05/12/2023, Expires: 08/11/2023 Work Phone: Comment on above: Expected: 05/12/2023, Expires: 4 Start: 05-08-2023 ANNUAL PCP TEAM CHRONIC DISEASE VISIT ANNUAL PCP TEAM CHRONIC DISEASE VISIT [facility] Start: 05-08-2023 BONE DENSITY BONE DENSITY [facility] Comment on above: Postponed from 2019 (Declined at t his time) Start: 05-08-2023 Bone Density Screening Bone Density Screening [facility] Comment on above: Postponed from 2019 (Declined at t his time) Start: 05-08-2023 BP CONTROLLED (<130/80) BP CONTROLLED (<130/80) [facility] in Start: 05-08-2023 HEMOGLOBIN/HEMATOCRIT HEMOGLOBIN/HEMATOCRIT [facility] Start: 05-08-2023 Hepatitis B surface antibody level LDL CHOLESTEROL [facility] Start: 05-08-2023 SERUM CREATININE SERUM CREATININE [facility] Start: 03-11-2023 Influenza vaccination LUNG CANCER SCREENING [facility] Start: 03-11-2023 Screening for malignant neoplasm of lung Lung Cancer Screening [facility] Start: 02-21-2023 Covid-19 Vaccine () Covid-19 Vaccine () [facility] Start: 02-21-2023 Influenza vaccination [facility] Start: 02-09-2023 Hemoglobin A1c/Hemoglobin.total in Blood HBA1C [facility] Start: 01-09-2023 Thyroid stimulating hormone measurement [facility] Start: 01-09-2023 [facility] Start: 01-08-2023 Admission procedure [facility] Start: 01-08-2023 Assessment of risk of venous thromboembolism [facility] Start: 01-08-2023 Care regimes management [facility] Start: 01-08-2023 Insertion of catheter into peripheral vein [facility] Start: 01-08-2023 Notification of physician [facility] Start: 01-08-2023 Providing care according to standard [facility] Start: 01-08-2023 Ambulation without limitation [facility] Start: 01-08-2023 Radiography of esophagus Esophagus Single Contrast [facility] Start: 01-08-2023 Radionuclide gastric emptying study [facility] Start: 01-08-2023 Referral to gastroenterology service [facility] Start: 01-08-2023 Referral to whipped topping supervisor [facility] Start: 01-08-2023 Verification routine [facility] Start: 01-08-2023 End: 01-08-2023 [facility] Start: 01-08-2023 End: 03-10-2023 Borrelia burgdorferi IgG and IgM panel - Serum LYME AB LATE >30 DAYS SYMPTOMS Lab Routine Tick bite, unspecified site, initial encounter Expected: 01/08/2023, Expires: 03/10/2023 Work Phone: Comment on above: Expected: 01/08/2023, Expires: 3 Start: 01-07-2023 End: 03-09-2023 Comprehensive metabolic 2000 panel - Serum or Plasma Work Phone: Comment on above: Expected: 01/07/2023, Expires: 3 Start: 01-07-2023 End: 03-09-2023 Magnesium [Mass/volume] in Serum or Plasma Work Phone: Comment on above: Expected: 01/07/2023, Expires: 3 Start: 12-31-2022 Patient discharge [facility] Start: 12-31-2022 End: 12-31-2022 Notification of physician [facility] Start: 12-31-2022 Patient education [facility] Start: 12-31-2022 Provision of activity privileges [facility] Start: 12-31-2022 Pulse taking [facility] Start: 12-31-2022 Taking patient vital signs [facility] Start: 12-31-2022 Wound care [facility] Start: 12-31-2022 Catheterization of vein [facility] Start: 12-31-2022 Medication not administered [facility] Start: 12-31-2022 End: 12-31-2022 [facility] Start: 12-26-2022 Ambulation without limitation [facility] Start: 12-26-2022 Assessment of risk of venous thromboembolism [facility] Start: 12-26-2022 Insertion of catheter into peripheral vein [facility] Start: 12-26-2022 Measuring intake and output [facility] Start: 12-26-2022 Providing care according to standard [facility] Start: 12-26-2022 Referral to rn orthopaedic [facility] Start: 12-26-2022 [facility] Start: 12-26-2022 Admission procedure [facility] Start: 12-26-2022 Following clinical pathway protocol [facility] Start: 12-26-2022 Troponin I measurement [facility] Start: 12-26-2022 [facility] Start: 12-26-2022 Patient referral to dietitian [facility] Start: 12-12-2022 End: 02-11-2023 Thyrotropin [Units/volume] in Serum or Plasma Work Phone: Comment on above: Expected: 12/12/2022, Expires: 3 Start: 11-05-2022 Hemoglobin A1c/Hemoglobin.total in Blood HBA1C [facility] Start: 09-14-2022 Glaucoma screening Dilated Retinal Exam [facility] Start: 09-14-2022 Hepatitis C antibody, confirmatory test DILATED RETINAL EXAM [facility] Start: 09-05-2022 COVID-19 VACCINE (5 - Pfizer series) COVID-19 VACCINE (5 - Pfizer series) [facility] Start: 08-12-2022 End: 10-12-2022 Hemoglobin A1c in Blood Work Phone: Comment on above: Expected: 08/12/2022, Expires: 3 Start: 08-02-2022 3 comp foot exam completed DIABETIC FOOT EXAM [facility] Start: 08-02-2022 ANNUAL PCP TEAM CHRONIC DISEASE VISIT ANNUAL PCP TEAM CHRONIC DISEASE VISIT [facility] Start: 08-02-2022 BP CONTROLLED (<130/80) BP CONTROLLED (<130/80) [facility] Start: 08-02-2022 Diabetic foot examination Diabetic Foot Exam [facility] Start: 08-02-2022 Hepatitis B screening URINE ALBUMIN:CREATININE RATIO [facility] Start: 08-02-2022 Hepatitis B surface antibody level LDL CHOLESTEROL [facility] Start: 06-23-2022 ADVANCE DIRECTIVE DISCUSSION ADVANCE DIRECTIVE DISCUSSION [facility] Start: 05-20-2022 End: 07-20-2022 CATECHOLAMINES FRACTIONATED, URINE FREE CATECHOLAMINES FRACTIONATED, URINE FREE Lab Routine Essential hypertension Flushing Elevated plasma metanephrines Expected: 05/20/2022, Expires: 07/20/2022 Work Phone: Comment on above: Expected: 05/20/2022, Expires: 3 Start: 05-09-2022 End: 07-09-2022 Urinalysis complete panel - Urine URINALYSIS, WITH MICROSCOPIC Lab Routine Essential hypertension Expected: 05/09/2022, Expires: 07/09/2022 Work Phone: Comment on above: Expected: 05/09/2022, Expires: 3 Start: 05-08-2022 End: 07-08-2022 Catecholamines 3 panel [Mass/volume] - Plasma Work Phone: Comment on above: Expected: 05/08/2022, Expires: 3 Start: 05-08-2022 End: 07-08-2022 CBC W Auto Differential panel - Blood Work Phone: Comment on above: Expected: 05/08/2022, Expires: 3 Start: 05-08-2022 End: 07-08-2022 Cobalamin (Vitamin B12) [Mass/volume] in Serum or Plasma Work Phone: Comment on above: Expected: 05/08/2022, Expires: 3 Start: 05-08-2022 End: 07-08-2022 Comprehensive metabolic 2000 panel - Serum or Plasma Work Phone: Comment on above: Expected: 05/08/2022, Expires: 3 Start: 05-08-2022 End: 07-08-2022 Folate [Mass/volume] in Serum or Plasma Work Phone: Comment on above: Expected: 05/08/2022, Expires: 3 Start: 05-08-2022 End: 07-08-2022 Hemoglobin A1c in Blood Work Phone: Comment on above: Expected: 05/08/2022, Expires: 3 Start: 05-08-2022 End: 07-08-2022 LIPID PANEL, NONFASTING Work Phone: Comment on above: Expected: 05/08/2022, Expires: 3 Start: 05-08-2022 End: 07-08-2022 METANEPHRINES, FREE PLASMA Work Phone: Comment on above: Expected: 05/08/2022, Expires: 3 Start: 05-08-2022 End: 07-08-2022 Thyrotropin [Units/volume] in Serum or Plasma Work Phone: Comment on above: Expected: 05/08/2022, Expires: 3 Start: 05-08-2022 End: 07-08-2022 Thyroxine (T4) free [Mass/volume] in Serum or Plasma Work Phone: Comment on above: Expected: 05/08/2022, Expires: 3 Start: 02-21-2022 Influenza vaccination INFLUENZA (#1) [facility] Start: 02-12-2022 SERUM CREATININE SERUM CREATININE [facility] Start: 01-30-2022 Hemoglobin A1c/Hemoglobin.total in Blood HBA1C [facility] Start: 01-15-2022 HEMOGLOBIN/HEMATOCRIT HEMOGLOBIN/HEMATOCRIT [facility] Start: 10-18-2021 COVID-19 VACCINE (4 - Booster for Pfizer series) COVID-19 VACCINE (4 - Booster for Pfizer series) [facility] Start: 08-14-2021 COVID-19 VACCINE (4 - Booster for Pfizer series) COVID-19 VACCINE (4 - Booster for Pfizer series) [facility] Start: 06-23-2021 ADVANCE DIRECTIVE DISCUSSION ADVANCE DIRECTIVE DISCUSSION [facility] Start: 06-01-2021 BP CONTROLLED (<130/80) BP CONTROLLED (<130/80) [facility]ic Start: 05-23-2021 Screening for malignant neoplasm of breast Mammogram Screening [facility] Start: 2019 BONE DENSITY BONE DENSITY [facility] Start: 2019 Bone Density Screening Bone Density Screening [facility] ic Start: 2019 Screening for osteoporosis Bone Density Screening [facility] Start: 06-18-2019 Mammography [facility] Start: 06-18-2019 Screening for malignant neoplasm of breast Mammogram Screening [facility] Start: 2014 Hepatitis B Vaccine (1 of 3 - Risk 3-dose series) Hepatitis B Vaccine (1 of 3 - Risk 3-dose series) [facility] Start: 2014 RSV Vaccine (1 - 1-dose 60+ series) RSV Vaccine (1 - 1-dose 60+ series) [facility] Start: 2004 Influenza vaccination LUNG CANCER SCREENING [facility] Start: 2004 SHINGRIX VACCINE (1 of 2) SHINGRIX VACCINE (1 of 2) [facility] Start: 1999 COLOGUARD (FIT-DNA) COLOGUARD (FIT-DNA) [facility] Start: [address] COLONOGRAPHY [facility] Start: 1999 FECAL OCCULT BLOOD FECAL OCCULT BLOOD [facility] Start: 1999 Screening for malignant neoplasm of colon [facility] Start: 1999 SIGMOIDOSCOPY SIGMOIDOSCOPY [facility] Start: 1964 Hepatitis C antibody, confirmatory test DILATED RETINAL EXAM [facility] Alanine aminotransfe rase [Enzymatic activity/volume] in Serum or Plasma [facility] Albumin [Mass/volume ] in Serum or Plasma [facility] Alkaline phosphatase [Enzymatic activity/volume] in Serum or Plasma [facility] Anion gap measurement [facility] Aspartate aminotransferase [Enzymatic activity/volume] in Serum or Plasma [facility] End: 10-07-2024 BD DXA TRABECULAR BONE SCORE (TBS) BD DXA TRABECULAR BONE SCORE (TBS) Radiology Routine Asymptomatic postmenopausal status Age-related osteoporosis without current pathological fracture 1 Occurrences starting 09/08/2023 until 10/07/2024 Work Phone: Comment on above: 1 Occurrences starting 09/08/2023 until 10/07/2024 Bilirubin, total measurement [facility] BUN/Creatinine ratio [facility] Calcium [Mass/volume ] in Serum or Plasma [facility] Carbon dioxide, tota l [Moles/volume] in Serum or Plasma [facility] Cardiac event recording [facility] Work Phone: CBC W Auto Different ial panel - Blood [facility] Chloride [Moles/volu me] in Serum or Plasma [facility] Complete blood count [facility] Comprehensive metabo lic 2000 panel - Serum or Plasma [facility] Creatinine [Moles/volume] in Serum or Plasma [facility] CT Chest [facility] Work Phone: End: 10-07-2024 DXA Skeletal system.axial Views for bone density DXA-AXIAL SKELETON Radiology Routine Asymptomatic postmenopausal status Age-related osteoporosis without current pathological fracture 1 Occurrences starting 09/08/2023 until 10/07/2024 Work Phone: Comment on above: 1 Occurrences starting 09/08/2023 until 10/07/2024 DXA Skeletal system.axial Views for bone density DXA-AXIAL SKELETON Radiology Routine Asymptomatic postmenopausal status Age-related osteoporosis without current pathological fracture 10/10/2023 10:23 AM EDT Work Phone: End: 12-27-2023 ECG COMPLETE ECG COMPLETE ECG Routine Chest pressure 1 Occurrences starting 12/26/2022 until 12/27/2023 Work Phone: Comment on above: 1 Occurrences starting 12/26/2022 until 12/27/2023 Elastase.pancreatic [Presence] in Stool [facility] End: 12-13-2023 EMG(NEURO/NI) EMG(NEURO/NI) EMG Routine Right sided weakness Right foot drop Numbness of right foot 1 Occurrences starting 12/12/2022 until 12/13/2023 Work Phone: Comment on above: 1 Occurrences starting 12/12/2022 until 12/13/2023 Exercise tolerance test [facility] Work Phone: Ferritin [Mass/volum e] in Serum or Plasma [facility] Folate [Mass/volume] in Serum or Plasma [facility] Glucose [Mass/volume ] in Serum or Plasma [facility] End: 08-05-2025 Guidance for injection of Hip IMAGING GUIDED HIP INJECTION RIGHT Radiology Routine Primary osteoarthritis of right hip 1 Occurrences starting 07/05/2024 until 08/05/2025 Work Phone: Comment on above: 1 Occurrences starting 07/05/2024 until 08/05/2025 Hematocrit [Volume Fraction] of Blood [facility] Hemoglobin [Mass/vol ume] in Blood [facility] IMAGING GUIDED ASP/I [place] HIP JT/BURSA RIGHT IMAGING GUIDED ASP/INJ HIP JT/BURSA RIGHT Radiology Routine Primary osteoarthritis of right hip Chronic pain of right hip Ordered: 01/24/2022 Work Phone: Comment on above: Ordered: 01/24/2022 Iron [Mass/mass] in Unspecified specimen [facility] Lactic acid measurement [facility] Leukocytes [#/volume ] in Blood [facility] Magnesium [Mass/volu me] in Serum or Plasma [facility] Magnesium [Mass/volu me] in Serum or Plasma [facility] End: 05-15-2024 FILIBERTO SCREENING FILIBERTO SCREENING Radiology Routine Encounter for screening mammogram for breast cancer 1 Occurrences starting 04/16/2023 until 05/15/2024 Work Phone: Comment on above: 1 Occurrences starting 04/16/2023 until 05/15/2024 Mean corpuscular hemoglobin concentration determination [facility] Mean corpuscular hemoglobin determination [facility] Measurement of renal function [facility] Measurement of respiratory function [facility] Work Phone: METANEPHRINES 24H UR METANEPHRIN ES 24H UR Lab Routine Essential hypertension [place] Elevated plasma metanephrines Ordered: 05/20/2022 Work Phone: Comment on above: Ordered: 05/20/2022 End: 08-12-2025 MG Breast - bilateral Diagnostic FILIBERTO DIAGNOSTIC BILATERAL Radiology Routine Breast skin changes 1 Occurrences starting 07/13/2024 until 08/12/2025 Work Phone: Comment on above: 1 Occurrences starting 07/13/2024 until 08/12/2025 End: 08-04-2025 MG Breast - right Diagnostic for implant FILIBERTO DIAGNOSTIC RIGHT Radiology Routine Breast skin changes 1 Occurrences starting 07/05/2024 until 08/04/2025 Work Phone: Comment on above: 1 Occurrences starting 07/05/2024 until 08/04/2025 MG Breast Screening FILIBERTO SCREENIN G Radiology Routine Encounter for screening mammogram for breast cancer 10/10/2023 11:15 AM EDT Work Phone: End: 01-11-2024 Mri brain brain stem w/o contrast material MRI BRAIN WO IVCON Radiology Routine Other symptoms and signs involving the nervous system Transient cerebral ischemia, unspecified type Right sided weakness Right foot drop Numbness of right foot Dementia with behavioral disturbance (HCC) 1 Occurrences starting 12/12/2022 until 01/11/2024 Work Phone: Comment on above: 1 Occurrences starting 12/12/2022 until 01/11/2024 End: 12-21-2023 MRI SHOULDER WO IVCON LEFT MRI SHOULDER WO IVCON LEFT Radiology Routine Traumatic tear of left rotator cuff, unspecified tear extent, subsequent encounter Status post rotator cuff repair 1 Occurrences starting 11/21/2022 until 12/21/2023 Work Phone: Comment on above: 1 Occurrences starting 11/21/2022 until 12/21/2023 Neutrophil count [facility] Neutrophil percent differential count [facility] NM Heart Views W str ess and W radionuclide IV [facility] Work Phone: Patient Education [facility] Work Phone: [facility] Work Phone: Platelets [#/volume] in Blood [facility] Potassium [Moles/vol ume] in Serum or Plasma [facility] Protein measurement [facility] Red blood cell count [facility] Red cell distributio n width determination [facility] End: 01-18-2023 Screening mammography bi 2-view breast inc cad FILIBERTO SCREENING Radiology Routine Encounter for screening mammogram for breast cancer 1 Occurrences starting 12/19/2021 until 01/18/2023 Work Phone: Comment on above: 1 Occurrences starting 12/19/2021 until 01/18/2023 End: 06-07-2023 Screening mammography bi 2-view breast inc cad FILIBERTO SCREENING Radiology Routine Screening mammogram for breast cancer 1 Occurrences starting 05/08/2022 until 06/07/2023 Work Phone: Comment on above: 1 Occurrences starting 05/08/2022 until 06/07/2023 Sodium [Moles/volume ] in Serum or Plasma [facility] Thyroid stimulating hormone measurement [facility] Total protein measurement [facility] Triacylglycerol lipa se measurement [facility] Urea nitrogen [Mass/volume] in Serum or Plasma [facility] End: 08-04-2025 US Breast - right limited US BREAST LTD RIGHT Radiology Routine Breast skin changes 1 Occurrences starting 07/05/2024 until 08/04/2025 [facility] Comment on above: 1 Occurrences starting 07/05/2024 until 08/04/2025 End: 09-14-2025 US Carotid arteries - bilateral US CAROTID ARTERIES [facility] Vascular Lab Routine Bilateral carotid artery stenosis 1 Occurrences starting 09/14/2024 until 09/14/2025 [facility] Comment on above: 1 Occurrences starting 09/14/2024 until 09/14/2025 US Heart [facility] Work Phone: Vitamin B12 measurement [facility] VMA 24 HR URINE VMA 24 HR URINE Lab Routine Essential hypertension [place] Elevated plasma metanephrines Ordered: 05/20/2022 Work Phone: Comment on above: Ordered: 05/20/2022 End: 02-22-2023 XR HIP GENERAL 3V PELV/AP/LAT LEFT XR HIP GENERAL 3V PELV/AP/LAT LEFT Radiology Routine Pain in left hip 1 Occurrences starting 01/23/2022 until 02/22/2023 Work Phone: Comment on above: 1 Occurrences starting 01/23/2022 until 02/22/2023 XR HIP GENERAL 3V PELV/AP/LAT RIGHT XR HIP GENERAL 3V PELV/AP/LAT RIGHT Radiology Routine Pain in right hip 01/24/2022 10:43 AM EDT Work Phone: End: 07-14-2025 XR Pelvis and Hip - right AP and Lateral frog XR HIP GENERAL 3V PELV/AP/LAT RIGHT Radiology Routine Right hip pain 1 Occurrences starting 06/14/2024 until 07/14/2025 Work Phone: Comment on above: 1 Occurrences starting 06/14/2024 until 07/14/2025 [facility] Immunizations Immunization Date Immunization Notes Care Provider Olivia lala 07-05-2024 COVID-19 vaccine, ag e 12+ yr (PFIZER-BIONTECH COMIRNATY) Heaven Garg PA-C Work Phone: [facility] 07-05-2024 influenza, high dose seasonal, preservative-free Heaven Garg PA-C Work Phone: [facility] 09-08-2023 influenza (HD-IIV4) vaccine, age 65+ yr, high dose, quadrivalent, PF (FLUZONE HIGH-DOSE) Heaven Garg PA-C Work Phone: [facility] 09-08-2023 influenza virus vacc ine, unspecified formulation Zach Donovan RN Work Phone: [facility] 05-08-2022 COVID-19 booster vaccine, age 12+ yr, bivalent (PFIZER-BIONTECH) Heaven Garg PA-C Work Phone: [facility] 05-08-2022 influenza, high-dose , quadrivalent vaccine (FLUZONE HIGH DOSE QUADRIVALENT) Heaven Garg PA-C Work Phone: [facility] 05-08-2022 influenza virus vacc ine, unspecified formulation Zach Donovan RN Work Phone: [facility] 11-07-2021 zoster vaccine recombinant Heaven Garg PA-C Work Phone: [facility] Work Phone: 09-01-2021 pneumococcal (PCV20) vaccine, 20 valent (PREVNAR 20) Heaven Garg PA-C Work Phone: [facility] 09-01-2021 zoster vaccine recombinant Heaven Garg PA-C Work Phone: [facility] Work Phone: 03-22-2021 influenza, high-dose , quadrivalent vaccine (FLUZONE HIGH DOSE QUADRIVALENT) Heaven DAVIS-C Work Phone: [facility] Work Phone: 09-15-2020 COVID-19 vaccine, ag e 12+ yr (PFIZER-BIONTECH - [facility]) Heaven DAVIS-C Work Phone: [facility] 08-24-2020 COVID-19 vaccine, ag e 12+ yr (PFIZER-BIONTECH - PURPLE TOP) Heaven DAVIS-C Work Phone: [facility] 05-02-2020 influenza, high-dose , quadrivalent vaccine (FLUZONE HIGH DOSE QUADRIVALENT) Heaven DAVIS-C Work Phone: [facility] Work Phone: 07-02-2019 pneumococcal polysaccharide vaccine, 23 valent Heaven DAVIS-C Work Phone: [facility] 06-24-2019 influenza, high dose seasonal, preservative-free Heaven DAVIS-C Work Phone: [facility] 03-23-[address] Magan Amador Work Phone: [facility] 07-14-2018 pneumococcal conjuga te vaccine, 13 valent Heaven DAVIS-C Work Phone: [facility] 04-23-2018 influenza, injectabl e, quadrivalent, contains preservative Heaven DAVIS-C Work Phone: [facility] 12-29-2017 tetanus toxoid, redu mina diphtheria toxoid, and acellular pertussis vaccine, adsorbed Heaven DAVIS-C Work Phone: [facility] 07-02-2017 influenza, injectabl e, quadrivalent, contains preservative Heaven DAVIS-C Work Phone: [facility] 04-27-2014 influenza, seasonal, injectable Heaven DAVIS-C Work Phone: [facility] Work Phone: 05-05-2013 pneumococcal polysaccharide vaccine, 23 valent Heaven DAVIS-C Work Phone: [facility] Payers Date Payer Category Payer Unknown [id number] 2023 Self-pay [id number] 2023 Medicare (Managed Care) [id number] [address] [facility] [id number] 2019 Medicare MEDICARE MEDICAR E A AND B [id number] 2019-Present [phone] [place] [address] Medicare [id number] 2019 Medicare [id number] 2011 Unknown [id number] Medicare [id number] Unknown [id number] Unknown [id number] 79 Unknown [id number] 79 Unknown [id number] 79 Unknown [id number] 79 Unknown [id number] 79 Unknown [id number] 62 Unknown [id number] 62 Unknown [id number] 62 Unknown [id number] 62 Unknown [id number] 62 Unknown [id number] 62 Unknown [id number] 62 Social History Date Type Detail Facility Start: 08-02-2021 End: 05-08-2022 Tobacco smoking status NHIS Ex-smoker [facility] Work Phone: Start: [birth year]-23-1968 End: 05-18-2021 History of tobacco use Current smoker [facility] Work Phone: Start: [birth year]-23-1968 End: 05-18-2021 History of tobacco use Cigarette Smoker [facility] Work Phone: Start: 08-02-2021 End: 11-11-2022 Cigarettes smoked current (pack per day) - Reported 0.5 [facility] Work Phone: Start: 08-02-2021 End: 03-09-2024 Tobacco use and exposure Smokeless tobacco non-user [facility] Work Phone: Start: 08-02-2021 End: 09-14-2024 Alcohol intake Current non-drinker of alcohol (finding) [facility] Start: 1955 Sex Assigned At Not on file C [facility] Start: 10-19-2021 End: 10-29-2021 Exposure to SARS-CoV-2 (event) Unable to assess [facility] Work Phone: Start: 12-17-2021 End: 11-22-2024 Tobacco smoking status NHIS Unknown if ever smoked [facility] Start: 09-08-2019 None [place] [facility] Start: 11-07-2020 [facility] Start: 09-20-2020 [facility] Start: 1955 Sex Assigned At Female T [facility] Start: 01-14-2022 End: 05-08-2022 Exposure to SARS-CoV-2 (event) Not sure [facility] Work Phone: Start: 06-19-2022 N [facility] Work Phone: Start: 06-19-2022 Y [facility] Work Phone: Start: 11-11-2022 End: 01-07-2023 Gender Identity unknown [facility] Work Phone: Adult Depression Screening Assessment 0 [facility] Work Phone: Start: 03-13-2023 End: 01-20-2025 Tobacco smoking status NHIS Occasional tobacco smoker [facility] Start: 11-16-2023 SMOKES 1/2 PPD [facility] Work Phone: Start: 12-18-2023 DENIES [facility] Work Phone: Start: 12-18-2023 CIGARETTES OCCASIONALLY [facility] Work Phone: Start: 12-22-2023 D [facility] Work Phone: Start: 12-22-2023 1/4PPD [facility] Work Phone: How often to you hav e a drink containing alcohol? Never [facility] Start: 11-22-2024 1/2 PPD [facility] Work Phone: Medical Equipment Procedure Code Equipment Code Equipment Origin al Text Equipment Identifier Dates [employer] 5.5mm 2 Full Thread Peek 14.7mm Suture 2 4 - [id number] Start: 08-08-2017 [employer] 4.75mm 24.5mm Suture Self Punch Sterile Disposable - [id number] Start: 08-08-2017 [id number] Start: 03-29-2020 End: 09-08-2023 Comment on above: Test blood sugar(s) 1 times daily. Dx: E11.9 Insulin: No Test blood sugar(s) 1 times daily. Dx: Other DM Code E11.9, Insulin: No RELOAD, SR75 SELECTABLE FDA Start: 08-26-2019 RELOAD, SR75 SELECTABLE FDA Start: 08-26-2019 RELOAD,DAISY X THI CK COVID FDA Start: 08-26-2019 RELOAD, SR75 SELECTABLE FDA Start: 08-26-2019 RELOAD, SR75 SELECTABLE FDA Start: 08-26-2019 RELOAD,DAISY X THI CK COVID FDA Start: 08-26-2019 RELOAD, SR75 SELECTABLE FDA Start: 08-26-2019 RELOAD, SR75 SELECTABLE FDA Start: 08-26-2019 RELOAD,DAISY X THI CK COVID FDA Start: 08-26-2019 RELOAD, SR75 SELECTABLE FDA Start: 08-26-2019 RELOAD, SR75 SELECTABLE FDA Start: 08-26-2019 RELOAD,DAISY X THI CK COVID FDA Start: 08-26-2019 RELOAD, SR75 SELECTABLE FDA Start: 08-26-2019 RELOAD, SR75 SELECTABLE FDA Start: 08-26-2019 RELOAD,DAISY X THI CK COVID FDA Start: 08-26-2019 RELOAD, SR75 SELECTABLE FDA Start: 08-26-2019 RELOAD, SR75 SELECTABLE FDA Start: 08-26-2019 RELOAD,DAISY X THI CK COVID FDA Start: 08-26-2019 RELOAD, SR75 SELECTABLE FDA Start: 08-26-2019 RELOAD, SR75 SELECTABLE FDA Start: 08-26-2019 RELOAD,DAISY X THI CK COVID FDA Start: 08-26-2019 RELOAD, SR75 SELECTABLE FDA Start: 08-26-2019 RELOAD, SR75 SELECTABLE FDA Start: 08-26-2019 RELOAD,DAISY X THI CK COVID FDA Start: 08-26-2019 RELOAD, SR75 SELECTABLE FDA Start: 08-26-2019 RELOAD, SR75 SELECTABLE FDA Start: 08-26-2019 RELOAD,DAISY Eliot WINN CK COVID FDA Start: 08-26-2019 RELOAD, SR75 SELECTABLE FDA Start: 08-26-2019 RELOAD, SR75 SELECTABLE FDA Start: 08-26-2019 RELOAD,DAISYJosefina WINN CK COVID FDA Start: 08-26-2019 RELOAD, SR75 SELECTABLE FDA Start: 08-26-2019 RELOAD, SR75 SELECTABLE FDA Start: 08-26-2019 RELOAD,DAISYJosefina WINN CK COVID FDA Start: 08-26-2019 RELOAD, SR75 SELECTABLE FDA Start: 08-26-2019 RELOAD, SR75 SELECTABLE FDA Start: 08-26-2019 RELOAD,DAISY Eliot WINN CK COVID FDA Start: 08-26-2019 Goals Date Patient Goal Desired Activity /State Personal health goal Comment on above: Formatting of this n ote might be different from the original. To be more fit Personal health goal Comment on above: Formatting of this n ote might be different from the original. Patient has the following Chronic Kidney Disease goals: Two PCP visits annually, Nephrology visit annually, and Renal panel twice annually Education provided and reviewed with patient - sent on 05/20/23 CKD Zones, Renal Diet Basics, Controlling Potassium, and CKD ROYAL Education - CKD (ALL) Patient will meet these goals by: 06/22/2024 (describe interventions done by PCC) Formatting of this n ote might be different from the original. Patient has the following High Blood Pressure/Hypertension Goals: Two PCP Visits annually, Nurse / pharmacist / SEFERINO visit within 4 weeks after PCP visit with uncontrolled BP (>140/90), BMP annually, and Patients specific blood pressure target:130/80 HTN Education given and reviewed with patient --sent on 05/20/23 Medication compliance education, Advise / educate patient to ask for repeat BP check at any appointment if first BP is >140/90, Checking your Blood Pressure at Home, High Blood Pressure: Talking to Your Health Care Provider, High Blood Pressure - When to Seek Emergency Care, High Blood Pressure and Nutrition, Your Sodium-Controlled Diet, and Hypertension Treatment Overview Patient will meet these goals by 06/22/2024 (describe interventions done by PCC) Comment on above: Formatting of this n ote might be different from the original. To be more fit Functional Status Date Assessment Result Facility 09-14-2024 Total score [AUDIT-C] 0 09/15/19 25 2:20 PM EDT Fidelia Yanes MA [facility] 12-31-2022 Functional status Ambulates;Up a d yesy;Bathroom Privilege [facility] Work Phone: 12-31-2014 Are you deaf, or do you have serious difficulty hearing No 12/31/2014 11:21 AM EDT Mel Stubbs MA No [facility] 12-31-2014 Are you blind, or do you have serious difficulty seeing, even when wearing glasses No 12/31/2014 11:21 AM EDT Mel Stubbs MA [facility] 12-31-2014 Do you have serious difficulty walking or climbing stairs No 12/31/2014 11:21 AM EDT Mel Stubbs MA [facility] 12-31-2014 Do you have difficul ty dressing or bathing No 12/31/2014 11:21 AM EDT Mel Stubbs MA [facility] 12-31-2014 Because of a physica l, mental, or emotional condition, do you have difficulty doing errands alone such as visiting a physician's office or shopping No 12/31/2014 11:21 AM BUNNYT Mel Stubbs MA [facility] Mental Status Date Assessment Result Facility 01-25-2025 Cognitive function Voice/Name [facility] Work Phone: 01-08-2023 Cognitive function Level Of Cons ciousness Awake;Alert;Appropriate;Fol lows Commands [facility] Work Phone: 12-31-2022 Cognitive function Voice/Name [facility] Work Phone: 12-26-2022 Cognitive function Level Of Cons ciousness Awake;Alert;Appropriate;Fol lows Commands [facility] Work Phone: 12-31-2014 Because of a physica l, mental, or emotional condition, do you have serious difficulty concentrating, remembering, or making decisions No 12/31/2014 11:21 AM EDT Mel Stubbs MA No [facility] Clinical Notes 04-23-2013 to 01-25-2025 Note Date & Type Note Facility 01-25-2025 History and physi roverto note Note Date/Time January 25, 2025 1:02pm [facility] Medical Records Department [address] [place] [address] History & Physical Exam 01/25/25 1300 MR#: [id number] Acct: [id number] Name: TY YU Rep #:[id number] : 1955 69 From: Pranay Friend DO PCP: Dr. Magan Amador MD Status:[facility] Location: [place] [address] HPI - General General Date of Admission: 01/25/25 Date of Service: 02/23/25 Chief Complaint: GERD HPI Narrative TY YU, is a 69 F who presentshief Complaint: Of heartburn TY YU, is a 69 F who presents to the office today for FU. 01.11.23 Last note charted by [facility] during [facility] hospitalization for acute abdominal pain, chest pain and dehydration; history of CAD, diabetes, anxiety, depression,GERD, perforated diverticulum status post colectomy with end colostomy. She hadan admission for chest pain and underwent cardiac catheterization which was normal. She has been struggling with abdominal pain and nausea and has not found any reason why thus far. Differential diagnosis does include depression, hypertrophic gastropathy, H. pylori infection, PPI usage, chronic renal failure,hypergastrinemia. 01.10.23 EGD inpt - Moderate Schatzki ring. - Enlarged gastric folds. Biopsied. PATH: mild chronic gastritis, H.pylori negative - Duodenal mucosal atrophy. Biopsied. PATH: no pathologic diagnosis 12.09.24 OV She presents with her son and reports being sick for the last 1.5wks. She went to the Urgent Care due to a sore throat, reports that her rapid strep test was negative and she was treated for thrush in her mouth with Nystatin swish and spit, and a single dose of Diflucan. She reports a decreased appetite with associated 10 pound weight loss over 4-6wks. She denies being exposed to ill persons and any changes to her water supply. Her PCP increased her pantoprazole to twice daily and she takes Carafate as needed. She notes someincreasing shortness of breath on exertion. She states that her colostomy outputhas slightly increased and is thin yellow green color. She denies fever and chills. She states that her colostomy was placed due to physician negligence ofmy constipation and I had to have emergent surgery where they took quite a bit of my intestines and told me that they would never be reconnected. [facility] Medical History Wears glasses Wears dentures Dietary restriction Smoker Hypomagnesemia ST segment changes on electrocardiography Chest pain, unspecified History of left heart catheterization (LHC) (~02/13/16) Chronic low back pain Insomnia Anemia Nausea & vomiting Skin ulcer Rheumatoid arthritis Osteoarthritis High triglycerides High cholesterol HTN (hypertension) Chronic bronchitis Carpal tunnel syndrome Paroxysmal atrial fibrillation Fecal impaction of colon Irritable bowel syndrome with constipation Hyperlipidemia Anxiety Depression Restless legs syndrome GERD (gastroesophageal reflux disease) Diverticulitis Hypokalemia Atrial fibrillation with rapid ventricular response Sepsis Visual hallucinations Encephalopathy Abdominal pain Debility Atrial fibrillation Large bowel obstruction Constipation Colitis Altered mental status Failure of outpatient treatment Sigmoid diverticulitis Tobacco dependence syndrome History of Clostridium difficile infection Home Medications ?Medication ?Instructions ?Recorded ?Last Taken ?Type ezetimibe 10 mg tablet 10 mg PO DAILY CHOLESTEROL 0 01/27/19 01/08/23 History atorvastatin 80 mg tablet 80 mg PO QHS CHOLESTEROL #30 tabs 09/20/19 01/07/23 Rx fenofibrate 54 mg tablet 54 mg PO DAILY TRIGYCERIDES 04/18/20 01/08/23 History fluoxetine 60 mg tablet 60 mg PO QDAY #90 tabs 11/30 Unknown Rx rivastigmine 9.5 mg/24 hour 9.5 mg transdermal QDAY #3 0 ea 11/30/24 Unknown Rx transdermal patch bupropion HCl 150 mg 24 hr tablet, 300 mg PO QAM 12/09 Unknown History extended release (Wellbutrin XL) pioglitazone 30 mg tablet 30 mg PO QDAY 12/09/2401/25 History gabapentin 100 mg capsule 100 mg PO TIDCM #90 caps Unknown Rx omeprazole 20 mg capsule,delayed 20 mg PO BID #60 caps 12/10/24 01/25/25 Rx release ondansetron 4 mg disintegrating 4 mg PO Q8H PRN nausea and 12/10/24 Unknown Rx tablet vomiting #30 tabs potassium chloride 40 mEq/15 mL 40 meq (15 mL) PO ONCE #15 mL 12/10/24 Unknown Rx oral liquid [id number]-gynqpwsp-lwbirjx 1 cap PO TID #300 caps 12/13 Unknown Rx 36,000-114,000-180,000 unit capsule,delay rel (Creon) diltiazem HCl 180 mg 180 mg PO DAILY 01/20/2510/15 History capsule,extended release 24 hr (Cardizem CD) tizanidine 4 mg tablet 4 mg PO .hs 01/20/25 Unknown History Allergy/AdvReac Type Severity Reaction Status Date / Time bee venom protein (honey bee) Allergy Anaphylaxis Verified 01/25/25 12:38 Igoipnq-MPC-SfZ Reductase AdvReac Severe Myalgias Verified 01/25/25 12:38 Inhibitor promethazine HCl (From AdvReac Vomiting Verified 01/25/25 12:38 Phenergan) tuberculin, purified protein AdvReac Swelling Verified 01/25/25 12:38 deriva Family History Mother Heart disease Myocardial infarction CVA (cerebral vascular accident) Sister Diabetes Brother Parkinson disease Surgical History Hx of colostomy Cataract extraction status of left eye History of hand surgery History of laparoscopy History of cholecystectomy History of hysterectomy History of colostomy History of creation of ostomy History of partial colectomy History of cardioversion (09/02/19) Social History Smoking Status: Current some day smoker tobacco type: cigarettes Tobacco: How many years used: 40 alcohol intake: never substance use type: does not use caffeine: Yes Type: carbonated beverages and coffee what type of physical activity do you participate in: walking frequency: 1-2 times per week brandon/church: Jew seatbelt use: always ROS Constitutional Constitutional: Denies fatigue, fever(s), poor appetite, weight gain or weight loss Gastrointestinal Gastrointestinal: Denies belching, bloating, change in bowel habits, change in stool character, chewing difficulty, coffee ground emesis, constipation, cramping, diarrhea, dyspepsia, dysphagia, early satiety, excessive flatus, fecalincontinence, heartburn, hematemesis, hematochezia, hemorrhoids, loose stools, melena, nausea, odynophagia, rectal bleeding, tenesmus, vomiting or weight changes Vital Signs Vital Signs Vital Signs: 01/25/25 12:39 Temperature 97.9 F Temperature Source Temporal Pulse Rate 81 Respiratory Rate 16 Blood Pressure 141/92 H Blood Pressure Mean 108 Blood Pressure Source Monitor Blood Pressure Position Semi-Fowlers Blood Pressure Location Right Arm Pulse Ox 100 Oxygen Delivery Method Room Air Weight Weight: 155 lb Body Mass Index (BMI) 25.7 Physical Exam Narrative General: Alert, oriented, no apparent distress HEENT: Atraumatic, normocephalic Eyes: Anicteric, normal conjunctiva, extraocular movements grossly intact Neck: Supple Respiratory: Clear to auscultation bilaterally, normal respiratory effort Cardiovascular: Regular rate and rhythm GI: Soft, slightly tender on deep palpation epigastric region otherwise no tenderness, no rebound, guarding, rigidity, nondistended Extremities: No edema Musculoskeletal: Moving all extremities Neuro: No overt focal neurological deficits Skin: No rashes appreciated Psych: Cooperative Assessment & Plan Assessment/Plan (1) Low back pain: (2) Myalgia: (3) GERD (gastroesophageal reflux disease): QUALIFIERS: Esophagitis presence: esophagitis presence not specified Qualified Code(s): K21.9 - Gastro-esophageal reflux disease without esophagitis PLAN: Assessment and Plan Assessment and Plan (1) GERD (gastroesophageal reflux disease): Status: Chronic Qualifiers: Esophagitis presence: esophagitis presence not specified Qualified Code(s): K21.9 - Gastro-esophageal reflux disease without esophagitis (2) Shortness of breath: Status: Acute Orders: Orders CBC W/Diff, Automated Today K21.9 - Gastro-esophageal reflux disease without esophagitis, R06.02 - Shortness of breath, R53.81 - Other malaise Comprehensive Metabolic Profil Today K21.9 - Gastro-esophageal reflux disease without esophagitis, R06.02 - Shortness of breath Lipase Today K21.9 - Gastro-esophageal reflux disease without esophagitis, R06.02 - Shortness of breath Pancreatic Elastase, Fecal Today Z93.3 - Colostomy status Calprotectin, Stool Today K21.9 - Gastro-esophageal reflux disease without esophagitis, R06.02 - Shortness of breath Medications: New omeprazole 20 mg PO BID 60 caps 5RF ondansetron 4 mg PO Q8H PRN 30 tabs 0RF nausea and vomiting Refilled gabapentin 100 mg PO TIDCM 90 caps 5RF Discontinued pantoprazole Discontinued Reason: Order Changed 40 mg PO BID REFLUX Plan TY YU, is a 69 F who presents to the office today for FU. She presents with her son and reports being sick for the last 1.5wks. She went to the Urgent Care due to a sore throat, reports that her rapid strep test was negativeand she was treated for thrush in her mouth with Nystatin swish and spit, and a single dose of Diflucan. She reports a decreased appetite with associated 10 pound weight loss over 4-6wks. She denies being exposed to ill persons and any changes to her water supply. Her PCP increased her pantoprazole to twice daily and she takes Carafate as needed. She notes some increasing shortness of breath on exertion. She states that her colostomy output has slightly increased and is thin yellow green color. She denies fever and chills. * blood for CBC, CMP, lipase * stool for pancreatic elastase, calprotectin * change pantoprazole to omeprazole 20mg PO twice daily * ondansetron 4mg SL PRN nausea * continue gabapentin 100mg PO TIDCM * call with results 01/25/25 1302 <Electronically signed by Pranay Brian DO> Cosigner Signature (if applicable): CC: Dr. Magan Amador MD; Pranay Brian DO~ Signed [facility] Work Phone: [phone]) 866-859908-05-2025 Procedure note [facility] Medical Records Department [address] [place] [address] EGD Report MR#: [id number] Acct: [id number] Name: TY YU Rep #:[id number] : 1955 69 From: Pranay Brian DO PCP: Dr. Magan Amador MD Status:[facility] Patient Name: Ty Yu Procedure Date: 01/25/2025 2:07 PM Date of : 1955 Age: 69 Procedure: Upper GI endoscopy Indications: Epigastric abdominal pain, Functional Dyspepsia, Suspected non-erosive esophageal reflux Providers: Pranay Brian DO Referring MD: Magan Amador MD Medicines: Monitored Anesthesia Care Patient Profile: This is a 69 year old female. Refer to note in patient chart for documentation of history and physical. Patient has symptoms of chronic epigastric abdominal pain, chronic dyspepsia and chronic heartburn. Complications: No immediate complications. Procedure: Pre-Anesthesia Assessment: - Prior to the procedure, a History and Physical was performed, and patient medications and allergies were reviewed. The patient is competent. The risks and benefits of the procedure and the sedation options and risks were discussed with the patient. All questions were answered and informed consent was obtained. Patient identification and proposed procedure were verified by the physician in the pre-procedure area. Mental Status Examination: alert and oriented. Airway Examination: normal oropharyngeal airway and neck mobility. Respiratory Examination: clear to auscultation. CV Examination: normal. Prophylactic Antibiotics: The patient does not require prophylactic antibiotics. Prior Anticoagulants: The patient has taken no anticoagulant or antiplatelet agents except for NSAID medication. ASA Grade Assessment: II - A patient with mild systemic disease. After reviewing the risks and benefits, the patient was deemed in satisfactory condition to undergo the procedure. The anesthesia plan was to use monitored anesthesia care (MAC). Immediately prior to administration of medications, the patient was re-assessed for adequacy to receive sedatives. The heart rate, respiratory rate, oxygen saturations, blood pressure, adequacy of pulmonary ventilation, and response to care were monitored throughout the procedure. The physical status of the patient was re-assessed after the procedure. After obtaining informed consent, the endoscope was passed under direct vision. Throughout the procedure, the patient's blood pressure, pulse, and oxygen saturations were monitored continuously. The Endoscope was introduced through the mouth, and advanced to the second part of duodenum. The upper GI endoscopy was accomplished without difficulty. The patient tolerated the procedure well. Scope In: 2:19:35 PM Scope Out: 2:24:09 PM Total Procedure Duration Time 0 hours 4 minutes 34 seconds Findings: The examined esophagus was normal. Diffuse prominent gastric folds were found in the entire examined stomach. Biopsies were taken with a cold forceps for histology. Verification of patient identification for the specimen was done. Biopsies were taken with a cold forceps for Helicobacter pylori testing. Verification of patient identification for the specimen was done. Estimated blood loss was minimal. Patchy mildly erythematous mucosa without active bleeding and with no stigmata of bleeding was found in the duodenal bulb. Impression: - Normal esophagus. - Enlarged gastric folds. Biopsied. - Erythematous duodenopathy. Recommendation: - Discharge patient to home. - Resume previous diet. - Continue present medications. - Await pathology results. Procedure Code(s): --- Professional --- 18884, Esophagogastroduodenoscopy, flexible, transoral; with biopsy, single or multiple CPT copyright 2021 [employer]. All rights reserved. The codes documented in this report are preliminary and upon hcc coders review may be revised to meet current compliance requirements. Pranay Brian DO 01/25/2025 2:36:02 PM This report has been signed electronically. Number of Addenda: 0 Note Initiated On: 01/25/2025 2:07 PM 01/25/25 1436 Date _ Pranay Brian DO Cosigner Signature: Date (if indicated) CC: Dr. Magan Amador MD; Pranay Brian DO ~ Date Dictated: 01/25/25 1407 Date Transcribed: Vending Machine Attendant: RF Signed [facility]08-05-2025 Procedure note [facility] Medical Records Department [address] [place] [address] Provation Physician Letter MR#: [id number] Acct: [id number] Name: TY YU Rep #:[id number] : 1955 69 From: Pranay Brian DO PCP: Dr. Magan Amador MD Status:[facility] 01/25/2025 Magan Amador MD Re : Upper GI endoscopy procedure for Ty Yu Dear Dr. Amador This procedure was performed on Saturday, January 25, 2025. My impressions and recommendations are as follows: Impressions : - Normal esophagus. - Enlarged gastric folds. Biopsied. - Erythematous duodenopathy. Recommendations : - Discharge patient to home. - Resume previous diet. - Continue present medications. - Await pathology results. My findings are described in the full procedure note, which is enclosed. If I can be of further assistance, please feel free to contact me at . Sincerely, Pranay Brian DO 01/25/2025 2:36:02 PM This report has been signed electronically. 01/25/25 1436 Date _ Pranay Brian DO Cosigner Signature: Date (if indicated) CC: Dr. Magan Amador MD; Pranay Brian DO ~ Date Dictated: 01/25/25 1407 Date Transcribed: Vending Machine Attendant: RF Signed [facility]08-05-2025 Consult note [facility] Medical Records Department [address] [place] [address] Anesthesia Postop Eval I 01/25/25 143 MR#: [id number] Acct: [id number] Name: TY YU Rep #:[id number] : 1955 69 From: Mark DEVINE PCP: Dr. Magan Amador MD Status:[facility] Y Race: C Location: [place] [address] Anesthesia: Postop Eval I Current Vital Signs Temperature: 97 F Pulse Rate: 75 Blood Pressure: 100/66 Respiratory Rate: 16 Pulse Ox: 99 Assessment Airway patent: Yes Spontaneous unlabored respirations: Yes nausea: No Vomiting: No Anesthesia Complication: No Fluid Hydration Crystalloid volume administer (ml): 500 Total IV fluid infused: 500 Progress Note Anesthesia document: Postop Eval 1 completed: Yes 01/25/25 1432 WHIPPED TOPPING SUPERVISOR> Date _ Mark Mao WHIPPED TOPPING SUPERVISOR Cosigner Signature: Date CC: ~ Signed [facility]08-05-2025 Consult note [facility] Medical Records Department [address] [place] [address] Pre-Anesthesia Evaluation 01/25/25 1359 MR#: [id number] Acct: [id number] Name: TY YU Rep #:[id number] : 1955 69 From: Mark Dunne PCP: Dr. Magan Amador MD Status:[facility] SD Y Race: C Location: [place] [address] ASA Classification* ASA Classification ASA Classification: 3 Assessment & Plan Anesthesia* Anesthesia Assessment Anesthesia Assessment: Discussed sedation and/or anesthesia options, risks, benefits, and alternatives with patient/parents/legal guardian/POA. Questions invited. The patient/parents/legal guardian/POA seems to understand and agrees to proceedwith anesthesia plan. Reviewed the physical assessment, medical history, allergy history and patient home medications list prior to surgery/procedure/anesthetic and documented any changes. Performed airway and anesthesia risk assessments. Anesthesia Type Anesthesia Type: MAC History Source History Obtained from:: Patient and Chart Anesthesia Focused Assessment* Temperature: 97.9 F Pulse Rate: 81 Blood Pressure: 141/92 Respiratory Rate: 16 Pulse Ox: 100 Oxygen Delivery Method: Room Air Airway Assessment Mouth opens: >3 cm Mallampati Score: II Teeth Condition: Dentures and Missing Neck Range of motion (ROM): Limited ROM Labs Anesthesia Preop lab: CBC WBC 10.4 K/mm3 (4.4-11.0) 12/09/24 12:16 12/09/24 RBC 3.61 M/mm3 (4.2-5.4) L 12/09/24 12:16 12/09/24 Hgb 10.7 g/dL (12.0-15.0) L 12/09/24 12:16 5 Hct 31.6 % (37-47) L 12/09/24 12:16 12/09/24 Plt Count 417 K/mm3 (150-450) 12/09/24 12:16 12/09/24 CHEMISTRY Potassium 3.0 mmol/L (3.3-5.1) L 12/09/24 12:16 12/09/24 Sodium 141 mmol/L (133-145) 12/09/24 12:16 12/09/24 Magnesium 1.4 mg/dL (1.6-2.6) L 09/01/23 12:50 09/01/23 Phosphorus 3.9 mg/dL (2.5-4.9) 01/09/23 05:00 01/09/23 BUN 47 mg/dL (4-19) H 12/09/24 12:16 12/09/24 Creatinine 2.52 mg/dL (0.70-1.20) H 12/09/24 12:16 Glucose 109 mg/dL (70-99) H 12/09/24 12:16 12/09/24 POC Glucose 99 mg/dL (74-106) 01/25/25 12:44 01/25/25 TSH 1.11 uIU/mL (0.358-3.74) 09/01/23 12:50 COAG PT 14.0 SECONDS (11.7-14.9) 01/10/23 05:05 Pre-Assessment Diagnosis/Proposed Procedure Planned Operative Procedure(s): egd Anesthesia History Anesthesia History - brand advocate: Anesthesia History - brand advocate Hx Hospitalization Yes: nausea vomiting 01/20/25 12:44 Any Problems With Anesthesia No 01/20/25 12:44 Cholinesterase deficiency No 01/20/25 12:44 You/Your Family Experience No 01/20/25 12:44 fever (hyperthermia) with Relationship Recent Exposure to Contagious No 01/25/25 12:39 Disease Does patient have nerve No 01/20/25 12:44 stimulator Patient instructed to have device shut off --Does patient have Pacemaker No 01/25/25 12:39 or ICD? When Was Last Pacemaker Check QUESTION #4 FULL TEXT: You/Your Family Experience fever (hyperthermia) with Anesthesia Last Oral Intake Last Oral intake: Last Oral Intake NPO since 08:30 01/25/25 12:39 Meds taken in AM with sips of Yes 01/25/25 12:39 water? Meds patient instructed to see mar 01/25/25 12:39 take am of surgery PONV PONV - brand advocate: PONV - brand advocate Female Yes 01/20/25 12:44 HX of Motion Sickness Yes 01/20/25 12:44 HX of N/V After Surgery No 01/20/25 12:44 Non-Smoker No 01/20/25 12:44 Duration of Surgery greater No 01/20/25 12:44 than 60 minutes Number of Risk Factors 2 01/20/25 12:44 PONV Score Moderate Risk 01/20/25 12:44 Height & Weight Height & Weight: Anesthesia: Height & Weight Height 5 ft 5 in 01/25/25 12:39 Weight: 70.307 kg 01/25/25 12:39 Body Mass Index (BMI) 25.7 01/25/25 12:39 Respiratory Assessment Respiratory Assessment - brand advocate: Respiratory Tract Infection Hx - brand advocate Hx Respiratory Tract Infection No 01/20/25 12:44 STOP Sleep Apnea STOP Sleep Apnea - brand advocate: STOP Sleep Apnea - brand advocate Hx Hypertension Yes: on meds 01/20/25 12:44 Hx Sleep Apnea No 01/20/25 12:44 CPAP No 12/06/24 08:55 BIPAP Do you snore loudly (louder No 01/20/25 12:44 than talking or can be heard Do you often feel tired/ No 01/20/25 12:44 fatigued/ sleepy during daytime? Has anyone observed you stop No 01/20/25 12:44 breathing during sleep? STOP Results Negative 01/20/25 12:44 QUESTION #5 FULL TEXT : Do you snore loudly (louder than talking or can be heard through closeddoors)? 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 Specify any problems Hx of Preganancy in last 3 No 01/20/25 12:44 Months Nurse Filling Out Transfusion JZOLLINGE 01/20/25 12:44 & Questions: Date: 01/20/25 01/20/25 12:44 Time: 12:46 01/20/25 12:44 Patient unable to answer at this time (ie. confused, unrespo /Reproduction History /Reproductive History - brand advocate: /Reproductive Hx- brand advocate Hx Now No 01/20/25 12:44 Gestational Age (in weeks): EDC: Hx Hx Para Hx Section SAB No 01/20/25 12:44 Active Medications Active Medications: Current Medications Generic Name Dose Route Start Last Admin Trade Name Freq PRN Reason Stop Dose Admin Lactated Ringer's 1,000 mls @ 15 mls/hr 01/25/25 12:30 01/25/25 12:51 IV 15 mls/hr .Q48H AARON Administration PFSH Medical History Wears glasses Wears dentures Dietary restriction Smoker Hypomagnesemia ST segment changes on electrocardiography Chest pain, unspecified History of left heart catheterization (LHC) (~02/13/16) Chronic low back pain Insomnia Anemia Nausea & vomiting Skin ulcer Rheumatoid arthritis Osteoarthritis High triglycerides High cholesterol HTN (hypertension) Chronic bronchitis Carpal tunnel syndrome Paroxysmal atrial fibrillation Fecal impaction of colon Irritable bowel syndrome with constipation Hyperlipidemia Anxiety Depression Restless legs syndrome GERD (gastroesophageal reflux disease) Diverticulitis Hypokalemia Atrial fibrillation with rapid ventricular response Sepsis Visual hallucinations Encephalopathy Abdominal pain Debility Atrial fibrillation Large bowel obstruction Constipation Colitis Altered mental status Failure of outpatient treatment Sigmoid diverticulitis Tobacco dependence syndrome History of Clostridium difficile infection Home Medications ?Medication ?Instructions ?Recorded ?Last Taken ?Type ezetimibe 10 mg tablet 10 mg PO DAILY CHOLESTEROL 0 01/27/19 01/08/23 History atorvastatin 80 mg tablet 80 mg PO QHS CHOLESTEROL #30 tabs 09/20/19 01/07/23 Rx fenofibrate 54 mg tablet 54 mg PO DAILY TRIGYCERIDES 04/18/20 01/08/23 History fluoxetine 60 mg tablet 60 mg PO QDAY #90 tabs 11/30 Unknown Rx rivastigmine 9.5 mg/24 hour 9.5 mg transdermal QDAY #3 0 ea 11/30/24 Unknown Rx transdermal patch bupropion HCl 150 mg 24 hr tablet, 300 mg PO QAM 12/09 Unknown History extended release (Wellbutrin XL) pioglitazone 30 mg tablet 30 mg PO QDAY 12/09/2401/25 History gabapentin 100 mg capsule 100 mg PO TIDCM #90 caps Unknown Rx omeprazole 20 mg capsule,delayed 20 mg PO BID #60 caps 12/10/24 01/25/25 Rx release ondansetron 4 mg disintegrating 4 mg PO Q8H PRN nausea and 12/10/24 Unknown Rx tablet vomiting #30 tabs potassium chloride 40 mEq/15 mL 40 meq (15 mL) PO ONCE #15 mL 12/10/24 Unknown Rx oral liquid pvhjca-emzuzjpx-ygbvcoy 1 cap PO TID #300 caps 12/13 Unknown Rx 36,000-114,000-180,000 unit capsule,delay rel (Creon) diltiazem HCl 180 mg 180 mg PO DAILY 01/20/2510/15 History capsule,extended release 24 hr (Cardizem CD) tizanidine 4 mg tablet 4 mg PO .hs 01/20/25 Unknown History Allergy/AdvReac Type Severity Reaction Status Date / Time bee venom protein (honey bee) Allergy Anaphylaxis Verified 01/25/25 12:38 Grxolgs-COA-VkR Reductase AdvReac Severe Myalgias Verified 01/25/25 12:38 Inhibitor promethazine HCl (From AdvReac Vomiting Verified 01/25/25 12:38 Phenergan) tuberculin, purified protein AdvReac Swelling Verified 01/25/25 12:38 deriva Family History Mother Heart disease Myocardial infarction CVA (cerebral vascular accident) Sister Diabetes Brother Parkinson disease Surgical History Hx of colostomy Cataract extraction status of left eye History of hand surgery History of laparoscopy History of cholecystectomy History of hysterectomy History of colostomy History of creation of ostomy History of partial colectomy History of cardioversion (09/02/19) Social History Smoking Status: Current some day smoker tobacco type: cigarettes Tobacco: How many years used: 40 alcohol intake: never substance use type: does not use caffeine: Yes Type: carbonated beverages and coffee what type of physical activity do you participate in: walking frequency: 1-2 times per week brandon/church: Jew seatbelt use: always Review of Systems (Anesthesia) ROS Narrative System reviewed and no additional complaints, except as documented. 01/25/25 1404 MD> Date _ Mark Khalil MD Cosigner Signature: Date CC: ~ Signed [facility]08-05-2025 History and physical note [facility] Medical Records Department [address] [place] [address] History & Physical Exam 01/25/25 1300 MR#: [id number] Acct: [id number] Name: YUTY Mina Rep #:[id number] : 1955 69 From: Pranay Friend DO PCP: Dr. Magan Amador MD Status:[facility] Location: [place] [address] HPI - General General Date of Admission: 01/25/25 Date of Service: 02/23/25 Chief Complaint: GERD HPI Narrative TY LUIS EDUARDO, is a 69 F who presentshief Complaint: Of heartburn TY YU, is a 69 F who presents to the office today for FU. 01.11.23 Last note charted by [facility] during [facility] hospitalization for acute abdominal pain, chest pain and dehydration; history of CAD, diabetes, anxiety, depression,GERD, perforated diverticulum status post colectomy with end colostomy. She hadan admission for chest pain and underwent cardiac catheteriza tion which was normal. She has been struggling with abdominal pain and nausea and has not found anyreason why thus far. Differential diagnosis does include depression, hypertrophic gastropathy, H. pylori infection, PPI usage, chronic renal failure,hypergastrinemia. 01.10.23 EGD inpt - Moderate Schatzki ring. - Enlarged gastric folds. Biopsied. PATH: mild chronic gastritis, H.pylori negative - Duodenal mucosal atrophy. Biopsied. PATH: no pathologic diagnosis 12.09.24 OV She presents with her son and reports being sick for the last 1.5wks. She went to the Urgent Care due to a sore throat, reports that her rapid strep test was negative and she was treatedfor thrush in her mouth with Nystatin swish and spit, and a single dose of Diflucan. She reports a decreased appetite with associated 10 pound weight loss over 4-6wks. She denies being exposed to illpersons and any changes to her water supply. Her PCP increased her pantoprazole to twice daily and she takes Carafate as needed. She notes someincreasing shortness of breath on exertion. She states that her colostomy outputhas slightly increased and is thin yellow green color. She denies fever and chills. She states that her colostomy was placed due to physician negligence ofmy constipation and I had to have emergent surgery where they took quite a bit of my intestines and told me that they would never be reconnected. [facility] Medical History Wears glasses Wears dentures Dietary restriction Smoker Hypomagnesemia ST segment changes on electrocardiography Chest pain, unspecified History of left heart catheterization (LHC) (~02/13/16) Chronic low back pain Insomnia Anemia Nausea & vomiting Skin ulcer Rheumatoid arthritis Osteoarthritis High triglycerides High cholesterol HTN (hypertension) Chronic bronchitis Carpal tunnel syndrome Paroxysmal atrial fibrillation Fecal impaction of colon Irritable bowel syndrome with constipation Hyperlipidemia Anxiety Depression Restless legs syndrome GERD (gastroesophageal reflux disease) Diverticulitis Hypokalemia Atrial fibrillation with rapid ventricular response Sepsis Visual hallucinations Encephalopathy Abdominal pain Debility Atrial fibrillation Large bowel obstruction Constipation Colitis Altered mental status Failure of outpatient treatment Sigmoid diverticulitis Tobacco dependence syndrome History of Clostridium difficile infection Home Medications ?Medication ?Instructions ?Recorded ?Last Taken ?Type ezetimibe 10 mg tablet 10 mg PO DAILY CHOLESTEROL 0 01/27/19 01/08/23 History atorvastatin 80 mg tablet 80 mg PO QHS CHOLESTEROL #30 tabs 09/20/19 01/07/23 Rx fenofibrate 54 mg tablet 54 mg PO DAILY TRIGYCERIDES 04/18/20 01/08/23 History fluoxetine 60 mg tablet 60 mg PO QDAY #90 tabs 11/30 Unknown Rx rivastigmine 9.5 mg/24 hour 9.5 mg transdermal QDAY #3 0 ea 11/30/24 Unknown Rx transdermal patch bupropion HCl 150 mg 24 hr tablet, 300 mg PO QAM 12/09 Unknown History extended release (Wellbutrin XL) pioglitazone 30 mg tablet 30 mg PO QDAY 12/09/2401/25 History gabapentin 100 mg capsule 100 mg PO TIDCM #90 caps Unknown Rx omeprazole 20 mg capsule,delayed 20 mg PO BID #60 caps 12/10/24 01/25/25 Rx release ondansetron 4 mg disintegrating 4 mg PO Q8H PRN nausea and 12/10/24 Unknown Rx tablet vomiting #30 tabs potassium chloride 40 mEq/15 mL 40 meq (15 mL) PO ONCE #15 mL 12/10/24 Unknown Rx oral liquid rxqhgq-mlvoghjo-cgnrdqu 1 cap PO TID #300 caps 12/13 Unknown Rx 36,000-114,000-180,000 unit capsule,delay rel (Creon) diltiazem HCl 180 mg 180 mg PO DAILY 01/20/2510/15 History capsule,extended release 24 hr (Cardizem CD) tizanidine 4 mg tablet 4 mg PO .hs 01/20/25 Unknown History Allergy/AdvReac Type Severity Reaction Status Date / Time bee venom protein (honey bee) Allergy Anaphylaxis Verified 01/25/25 12:38 Vubqkqe-WJV-ZvF Reductase AdvReac Severe Myalgias Verified 01/25/25 12:38 Inhibitor promethazine HCl (From AdvReac Vomiting Verified 01/25/25 12:38 Phenergan) tuberculin, purified protein AdvReac Swelling Verified 01/25/25 12:38 deriva Family History Mother Heart disease Myocardial infarction CVA (cerebral vascular accident) Sister Diabetes Brother Parkinson disease Surgical History Hx of colostomy Cataract extraction status of left eye History of hand surgery History of laparoscopy History of cholecystectomy History of hysterectomy History of colostomy History of creation of ostomy History of partial colectomy History of cardioversion (09/02/19) Social History Smoking Status: Current some day smoker tobacco type: cigarettes Tobacco: How many years used: 40 alcohol intake: never substance use type: does not use caffeine: Yes Type: carbonated beverages and coffee what type of physical activity do you participate in: walking frequency: 1-2 times per week brandon/church: Jew seatbelt use: always ROS Constitutional Constitutional: Denies fatigue, fever(s), poor appetite, weight gain or weight loss Gastrointestinal Gastrointestinal: Denies belching, bloating, change in bowel habits, change in stool character, chewing difficulty, coffee ground emesis, constipation, cramping, diarrhea, dyspepsia, dysphagia, earlysatiety, excessive flatus, fecalincontinence, heartburn, hematemesis, hematochezia, hemorrhoids, loose stools, melena, nausea, odynophagia, rectal bleeding, tenesmus, vomiting or weight changes Vital Signs Vital Signs Vital Signs: 01/25/25 12:39 Temperature 97.9 F Temperature Source Temporal Pulse Rate 81 Respiratory Rate 16 Blood Pressure 141/92 H Blood Pressure Mean 108 Blood Pressure Source Monitor Blood Pressure Position Semi-Fowlers Blood Pressure Location Right Arm Pulse Ox 100 Oxygen Delivery Method Room Air Weight Weight: 155 lb Body Mass Index (BMI) 25.7 Physical Exam Narrative General: Alert, oriented, no apparent distress HEENT: Atraumatic, normocephalic Eyes: Anicteric, normal conjunctiva, extraocular movements grossly intact Neck: Supple Respiratory: Clear to auscultation bilaterally, normal respiratory effort Cardiovascular: Regular rate and rhythm GI: Soft, slightly tender on deep palpation epigastric region otherwise no tenderness, no rebound, guarding, rigidity, nondistended Extremities: No edema Musculoskeletal: Moving all extremities Neuro: No overt focal neurological deficits Skin: No rashes appreciated Psych: Cooperative Assessment & Plan Assessment/Plan (1) Low back pain: (2) Myalgia: (3) GERD (gastroesophageal reflux disease): QUALIFIERS: Esophagitis presence: esophagitis presence not specified Qualified Code(s): K21.9 - Gastro-esophageal reflux disease without esophagitis PLAN: Assessment and Plan Assessment and Plan (1) GERD (gastroesophageal reflux disease): Status: Chronic Qualifiers: Esophagitis presence: esophagitis presence not specified Qualified Code(s): K21.9 - Gastro-esophageal reflux disease without esophagitis (2) Shortness of breath: Status: Acute Orders: Orders CBC W/Diff, Automated Today K21.9 - Gastro-esophageal reflux disease without esophagitis, R06.02 - Shortness of breath, R53.81 - Other malaise Comprehensive Metabolic Profil Today K21.9 - Gastro-esophageal reflux disease without esophagitis, R06.02 - Shortness of breath Lipase Today K21.9 - Gastro-esophageal reflux disease without esophagitis, R06.02 - Shortness of breath Pancreatic Elastase, Fecal Today Z93.3 - Colostomy status Calprotectin, Stool Today K21.9 - Gastro-esophageal reflux disease without esophagitis, R06.02 - Shortness of breath Medications: New omeprazole 20 mg PO BID 60 caps 5RF ondansetron 4 mg PO Q8H PRN 30 tabs 0RF nausea and vomiting Refilled gabapentin 100 mg PO TIDCM 90 caps 5RF Discontinued pantoprazole Discontinued Reason: Order Changed 40 mg PO BID REFLUX Plan TY YU, is a 69 F who presents to the office today for FU. She presents with her son and reports being sick for the last 1.5wks. She went to the Urgent Care due to a sore throat, reports thather rapid strep test was negativeand she was treated for thrush in her mouth with Nystatin swish and spit, and a single dose of Diflucan. She reports a decreased appetite with associated 10 pound weight loss over 4-6wks. She denies being exposed to ill persons and any changes to her water supply. Her PCP increased her pantoprazole to twice daily and she takes Carafate as needed. She notes some increasing shortness of breath on exertion. She states that her colostomy output has slightly increased and is thin yellow green color. She denies fever and chills. * blood for CBC, CMP, lipase * stool for pancreatic elastase, calprotectin * change pantoprazole to omeprazole 20mg PO twice daily * ondansetron 4mg SL PRN nausea * continue gabapentin 100mg PO TIDCM * call with results 01/25/25 1302 Cosigner Signature (if applicable): CC: Dr. Magan Amador MD; Pranay Friend, DO~ Signed [facility]06-20-2025 NoteHNO ID: [id number] Author: IRMA ALBERTO MA Service: ? Author Type: Software Engineering Manager Type: Progress Notes Filed: 12/14/2024 12:11 Note Text: Scan on 12/09/2024 1:39 PM by ProviderAly, PAMellC: Chemistry View External Labs - P Elastase, Feca [ID [id number]] View External Labs - CBCD [ID [id number]] Fidelia Yanes [facility]06-20-2025 History of Present illness Narrative* Fidelia Yanes MA - 12/10/2024 1:31 PM EDT Scan on 12/09/2024 1:39 PM by ProviderAly PA-C: Chemistry Fidelia Yanes MA [facility] Telephone encounter Note * Telephone Encounter - Angelique Grimes RN - 12/08/2024 9:02 AM EDT Patient call in for vomiting and dizziness. Patient states that she has not been able to keep anything down for over a week. Patient states that she was seen in an urgent care and had a negative strep test. Patient states that she has thrush and she was prescribed diflucan and nystatin for it. Patient reports that she has fallen a couple of times due to dizziness. Nurse Triage assessment completed with protocol recommending for disposition of Go to ED now. Patient voices understanding. Care advice reviewed with patient, patient stated understanding. Reason for Disposition [1] Drinking very little AND [2] dehydration suspected (e.g., no urine > 12 hours, very dry mouth, very lightheaded) Answer Assessment - Initial Assessment Questions 1. DESCRIPTION: Patient sates that she is not steady on feet, patient states that she has fallen a couple times. 2. LIGHTHEADED: woozy 3. VERTIGO: Yes patient states that she feels this at times. 4. SEVERITY: Patient is very shaky, not steady on feet. 5. ONSET: X 1 week 6. AGGRAVATING FACTORS: Denies 7. CAUSE: vomiting 8. OTHER SYMPTOMS: Vomiting; patient states that she has not been able to keep anything down for the past couple of days Protocols used: Dizziness - [id number] [facility]06-18-2025 Miscellaneous Notes* Telephone Encounter - Angelique Grimes RN - 12/08/2024 9:02 AM EDT Patient call in for vomiting and dizziness. Patient states that she has not been able to keep anything down for over a week. Patient states that she was seen in an urgent care and had a negative strep test. Patient states that she has thrush and she was prescribed diflucan and nystatin for it. Patient reports that she has fallen a couple of times due to dizziness. Nurse Triage assessment completed with protocol recommending for disposition of Go to ED now. Patient voices understanding. Care advice reviewed with patient, patient stated understanding. Reason for Disposition [1] Drinking very little AND [2] dehydration suspected (e.g., no urine > 12 hours, very dry mouth, very lightheaded) Answer Assessment - Initial Assessment Questions 1. DESCRIPTION: Patient sates that she is not steady on feet, patient states that she has fallen a couple times. 2. LIGHTHEADED: woozy 3. VERTIGO: Yes patient states that she feels this at times. 4. SEVERITY: Patient is very shaky, not steady on feet. 5. ONSET: X 1 week 6. AGGRAVATING FACTORS: Denies 7. CAUSE: vomiting 8. OTHER SYMPTOMS: Vomiting; patient states that she has not been able to keep anything down for the past couple of days Protocols used: Dizziness - [id number] documented in this encounterL[facility]06-11-2025 Telephone encounter Note * Telephone Encounter - Fidelia Yanes MA - 12/01/2024 7:11 AM EDT Faxed. Fidelia Yanes MA [facility]06-11-2025 Miscellaneous Notes* Telephone Encounter - Fidelia Yanes MA - 12/01/2024 7:11 AM EDT Faxed. Fidelia Yanes MA * Telephone Encounter - Magan Amador MD - 11/30/2024 5:02 PM EDT Form completed and ready to be faxed. * Telephone Encounter - Fidelia Yanes MA - 11/30/2024 2:55 PM EDT Patient dropped off Chronic Condition Verification form to be signed by PCP. Form needs faxed once completed. Fidelia Yanes MA documented in [facility]06-10-2025 Telephone encounter Note * Telephone Encounter - Magan Amador MD - 11/30/2024 5:02 PM EDT Form completed and ready to be faxed. [facility]06-10-2025 Evaluation note* Diagnosis Onset Date Resolution Status Admit Date Low back pain acute November 30, 2024 2:52pm Myalgia acute November 30 2:52pm Anxiety chronic November 30 2:52pm Dementia chronic November 30 2:52pm Depression chronic November 30 2:52pm Insomnia chronic November 30 2:52pm Shortness of breath acute December 09, 2024 10:59am GERD (gastroesophageal reflu x disease) chronic December 09, 2024 10:59am Low back pain acute January 25, 2025 12:20pm Myalgia acute January 25 12:20pm GERD (gastroesophageal reflu x disease) chronic January 25, 2025 12:20pm [facility] Work Phone: 1(370) 592-340306-10-2025 Telephone encounter Note* Telephone Encounter - Fidelia Yanes MA - 11/30/2024 2:55 PM EDT Patient dropped off Chronic Condition Verification form to be signed by PCP. Form needs faxed once completed. Fidelia Yanes MA [facility]06-10-2025 Telephone encounter Note* Telephone Encounter - Tonie Turpin LPN - 11/30/2024 1:52 PM EDT Pt notified of same. Tonie Turpin LPN [facility]06-10-2025 Miscellaneous Notes* Telephone Encounter - Tonie Turpin LPN - 11/30/2024 1:52 PM EDT Pt notified of same. Tonie Turpin LPN * Telephone Encounter - Heaven Garg PA-C - 11/30/2024 1:26 PM EDT Let patient know that her US of carotids are stable. Thanks. Heaven Garg PA-C documented in this encounterL[facility]06-10-2025 Telephone encounter Note * Telephone Encounter - Heaven Garg PA-C - 11/30/2024 1:26 PM EDT Let patient know that her US of carotids are stable. Thanks. Heaven Garg PA-C [facility]04-11-2025 Telephone encounter Note* Telephone Encounter - Magan Amador MD - 10/01/2024 2:24 PM EDT The following approved medication requests have been transmitted electronically. Requested Prescriptions Signed Prescriptions Disp Refills mometasone (NASONEX) 50 mcg/actuation nasal spray 17 g 5 Sig: Mometasone Furoate [Nasonex] 2 SPRAY NASAL DAILY PRN For Cold Symptons December 30, 2017 Active Authorizing Provider: MAGAN AMADOR buPROPion SR (WELLBUTRIN SR) 150 mg 12 hr tablet 60 tablet 5 Sig: Take 1 tablet by mouth two times a day. Authorizing Provider: MAGAN AMADOR MD [facility]04-11-2025 Miscellaneous Notes* Telephone Encounter - Magan Amador MD - 10/01/2024 2:24 PM EDT The following approved medication requests have been transmitted electronically. Requested Prescriptions Signed Prescriptions Disp Refills mometasone (NASONEX) 50 mcg/actuation nasal spray 17 g 5 Sig: Mometasone Furoate [Nasonex] 2 SPRAY NASAL DAILY PRN For Cold Symptons December 30, 2017 Active Authorizing Provider: MAGAN AMADOR buPROPion SR (WELLBUTRIN SR) 150 mg 12 hr tablet 60 tablet 5 Sig: Take 1 tablet by mouth two times a day. Authorizing Provider: MAGAN AMADOR MD * Telephone Encounter - Rosemary Mcnair RN - 10/01/2024 2:03 PM EDT The patient has been identified by name and date of : Yes Caregiver verified no other encounters exist for this prescription request: Yes Caregiver confirmed with patient/requestor that no other refills are due, in the near future, with this provider at this time: Yes The last office visit in the department: 09/14/2024 Does the patient have a future office visit with this provider/department: Yes 03/17/2025 Requested Prescriptions Pending Prescriptions Disp Refills buPROPion SR (WELLBUTRIN SR) 150 mg 12 hr tablet 60 tablet 3 Sig: Take 1 tablet by mouth once daily for 7 days, THEN 1 tablet two times a day. mometasone (NASONEX) 50 mcg/actuation nasal spray 17 g 1 Sig: Mometasone Furoate [Nasonex] 2 SPRAY NASAL DAILY PRN For Cold Symptons December 30, 2017 Active Rosemary Mcnair RN documented in [facility]04-[facility]-2025 Telephone encounter Note * Telephone Encounter - Rosemary Mcnair RN - 10/01/2024 2:03 PM EDT The patient has been identified by name and date of : Yes Caregiver verified no other encounters exist for this prescription request: Yes Caregiver confirmed with patient/requestor that no other refills are due, in the near future, with this provider at this time: Yes The last office visit in the department: 09/14/2024 Does the patient have a future office visit with this provider/department: Yes 03/17/2025 Requested Prescriptions Pending Prescriptions Disp Refills buPROPion SR (WELLBUTRIN SR) 150 mg 12 hr tablet 60 tablet 3 Sig: Take 1 tablet by mouth once daily for 7 days, THEN 1 tablet two times a day. mometasone (NASONEX) 50 mcg/actuation nasal spray 17 g 1 Sig: Mometasone Furoate [Nasonex] 2 SPRAY NASAL DAILY PRN For Cold Symptons December 30, 2017 Active Rosemary Mcnair RN [facility]04-07-2025 Telephone encounter Note* Telephone Encounter - Angelique Grimes RN - 09/27/2024 1:44 PM EDT Patient notified of provider's instructions. Patient verbalizes understanding. Angelique Grimes RN [facility]04-07-2025 Miscellaneous Notes* Telephone Encounter - Angelique Grimes RN - 09/27/2024 1:44 PM EDT Patient notified of provider's instructions. Patient verbalizes understanding. Angelique Grimes RN * Telephone Encounter - Susan Ledezma LPN - 09/27/2024 1:33 PM EDT Phoned patient left message to return call and ask to speak to a nurse. * Telephone Encounter - Magan Amador MD - 09/26/2024 2:47 PM EDT Let patient know that even though she is taking iron her iron numbers are on the lower end of normal and her Iron Saturation is low. I would advise her to change her Iron to every other day and take it along with 500 mg of Vit C to improve absorption. Some people do better with every other day dosing for absorption. Also her chronic kidney disease and other chronic health issues will affect her hemoglobin level as well. * Telephone Encounter - Carmelita Orr LPN - 09/22/2024 4:32 PM EDT Reviewed results with patient and she voiced understanding. She would like for Dr Amador to advise when he has the opportunity on why he thinks her hemoglobin continues to be low despite taking iron?Please advise upon return to office. Carmelita Orr LPN * Telephone Encounter - Sam Silva MD - 09/22/2024 1:59 PM EDT Labs show stable CKD in stage III range. Recommend low sodium diet <2,000 mg per day, avoidance of NSAIDs, and increased water intake. Cholesterol in good range. Diabetes well controlled with A1c 6.2. Mild anemia which is improved compared to February. Normal UA. Normal urine albumin/creatinine ratio. No changes to regimen. F/u with PCP team as scheduled. * Telephone Encounter - Fidelia Yanes MA - 09/22/2024 11:31 AM EDT Scan on 09/21/2024 1:47 PM by Provider, HOSSEIN Lu: Chemistry Please review results. Fidelia Ynaes MA documented in [facility]04-[facility]-2025 Telephone encounter Note * Telephone Encounter - Susan Ledezma LPN - 09/27/2024 1:33 PM EDT Phoned patient left message to return call and ask to speak to a nurse. [facility]04-06-2025 Telephone encounter Note* Telephone Encounter - Magan Amador MD - 09/26/2024 2:47 PM EDT Let patient know that even though she is taking iron her iron numbers are on the lower end of normal and her Iron Saturation is low. I would advise her to change her Iron to every other day and take it along with 500 mg of Vit C to improve absorption. Some people do better with every other day dosing for absorption. Also her chronic kidney disease and other chronic health issues will affect her hemoglobin level as well. [facility]04-02-2025 Telephone encounter Note* Telephone Encounter - Carmelita Orr LPN - 09/22/2024 4:32 PM EDT Reviewed results with patient and she voiced understanding. She would like for Dr Amador to advise when he has the opportunity on why he thinks her hemoglobin continues to be low despite taking iron?Please advise upon return to office. Carmelita Orr LPN [facility]04-02-2025 Telephone encounter Note* Telephone Encounter - Sam Silva MD - 09/22/2024 1:59 PM EDT Labs show stable CKD in stage III range. Recommend low sodium diet <2,000 mg per day, avoidance of NSAIDs, and increased water intake. Cholesterol in good range. Diabetes well controlled with A1c 6.2. Mild anemia which is improved compared to February. Normal UA. Normal urine albumin/creatinine ratio. No changes to regimen. F/u with PCP team as scheduled. [facility] Work Phone: 1(162) 990-468804-02-2025 Telephone encounter Note* Telephone Encounter - Fidelia Yanes MA - 09/22/2024 11:31 AM EDT Scan on 09/21/2024 1:47 PM by Provider, External, PAMellC: Chemistry Please review results. Fidelia Yanes MA [facility]03-25-2025 Instructions* Patient Instructions* Magan Amador MD - 09/14/2024 2:52 PM EDT Screening schedule The following prevention plan is recommended: Lung Cancer Screening due on 03/11/2023 Advance Directive Discussion due on 06/23/2024 HbA1C due on 09/06/2024 Diabetic Foot Exam due on 09/07/2024 WHAT YOU CAN DO TO PREVENT FALLS Many falls can be prevented. By making some changes, you can lower your chances of falling. Four things YOU can do to prevent falls for you* and your caregiver 1. Begin a regular exercise program Exercise is one of the most important ways to lower your chances of falling. It makes you stronger and helps you feel better. Exercises that improve balance and coordination (like Raulito Chi) are the most helpful. Lack of exercise leads to weakness and increases your chances of falling. Ask your doctor or health care provider about the best type of exercise program for you. 2. Have your health care provider review your medicines Have your doctor or pharmacist review all the medicines you take, even brkw-zlz-wwanopb medicines. As you get older, the way medicines work in your body can change. Some medicines, or combinations of medicines, can make you sleepy or dizzy andcan cause you to fall. 3. Have your vision checked Have your eyes checked by an eye doctor at least once a year. You may be wearing the wrong glasses or have a condition like glaucoma or cataracts that limits your vision. Poor vision can increase your chances of falling. 4. Make your home safer About half of all falls happen at home. To make your home safer: Remove things you can trip over (like papers, books, clothes, and shoes) from stairs and places where you walk. Remove small throw rugs or use double-sided tape to keep the rugs from slipping. Keep items you use often in cabinets you can reach easily without using a step stool. Have grab bars put in next to your toilet and in the tub or shower. Use non-slip mats in the bathtub and on shower floors. Improve the lighting in your home. As you get older, you need brighter lights to see well. Hang light-weight curtains or shades to reduce glare. Have handrails and lights put in on all staircases. Wear shoes both inside and outside the house. Avoid going barefoot or wearing slippers. For more information, contact: Centers for Disease Control and Prevention www.cdc.gov/injury * This information may not apply if you have certain medical conditions. [facility] NoteHNO ID: [id number] Author: MAGAN AMADOR MD Service: ? Author Type: Physician Type: Progress Notes Filed: 09/14/2024 20:30 Note Text: Ty Yu is a 69 year old female here for a Medicare wellness visit. Medicare Health Risk Assessment General Health Good Exercise: Minutes/Day none Exercise: Days/Week 0 days Alcohol: Daily Use Never Alcohol: Drinks/Day Patient does not drink Alcohol: 6 or more drinks Never Feel off balance Yes (did see eye doctor and have new glasses coming) Concerns: Teeth/Dentures no Concerns: Sexual function no Troubled by feelings Irritable; Lonely; Isolated Frequency: Eating healthy diet Not at all ADLs requiring help None of the above Safety precautions in home/vehicle No Smoke, vape, chews tobacco Yes, and I might quit Difficulty hearing No Difficulty seeing No Current Providers Specialists: I have reviewed specialist-related care of the patient in the medical record. Current care team: Patient Care Team: Magan Amador MD as PCP - General (Family Medicine) Marjan Vergara APRN.COMPLIANCE MONITOR as Nuclear Reactor Operator (Family Medicine) Heaven Garg PA-C as Nuclear Reactor Operator (Family Medicine) [facility]: Dr. Mayfield: renal Optho Dr. Eldridge: Neuro Dr. Brian Medical/Family history review Reviewed and updated problem list, medical/surgical/family/social history, medications, and allergies. Opioid use review Opioid Medications (last 90 days) No data to display Anxiety/Depression screening PHQ-2 Score: 0 (Lower risk for depression) Recommendation: no further intervention at this time Cognitive screening Cognitive screening reviewed and Patient has known cognitive impairment. Functional Observation Was the patient's Timed Up AND Go test unsteady or >= 12 seconds? No Advance Care Planning Patient did not wish or was not able to name a surrogate decision maker or provide an advance care plan Measurements BP 130/70 Pulse 76 Resp 16 Ht 163.8 cm (5' 4.5) Wt 72.6 kg (160 lb) LMP 05/22/2006 BMI 27.04 kg/m? Vision Screening: Follows with optometry/ophthalmology Assessment/Plan Medicare annual wellness visit, subsequent (Z00.00) - Counseled on healthy diet and regular exercise - Fall avoidance information provided - Personalized prevention plan provided See HPI Chief Complaint Patient presents with: Medicare Wellness Exam HPI Ty Yu is a 69 year old female who presents here today for Chronic Medical Conditions. and Medicare Annual Visit. Patient with hx of CAD, HTN, hyperlipidemia, a. Fib, CKD, DM2, iron def anemia, schatzki's ring, dementia, depression, carotid stenosis, and those as below. Ref Range AND Units 6 mo ago (03/09/24) 1 yr ago (09/08/23) 1 yr ago (05/28/23) 1 yr ago (11/11/22) 2 yr ago (08/12/22) 2 yr ago (05/08/22) 3 yr ago (08/02/21) Hemoglobin A1C 4.3 - 5.6 % 6.5 High 6.4 High CM 6.2 Abnormal R 6.3 High CM 6.6 High CM 6.4 High CM 6. Patient sees Ophthalmology last visit 03/2024 Past medical history, appointments, medications, allergies reviewed. Previous Medical History PAST MEDICAL HISTORY Diagnosis Date Age-related osteoporosis without current pathological fracture 06/01/2020 Anxiety 07/05/2013 Asthma diagnosed in childhood Urias's palsy Bilateral carotid artery disease (HCC) 12/15/2017 US 11/2017: 20-40% on right and 40-60% on left. Bilateral carotid artery stenosis 02/12/2021 US 11/2017: 20-40% on right and 40-60% on left. Bursitis of right hip 04/01/2013 Cataract 09/14/2021 Dr. [facility] Chicken pox as a child Chronic midline low back pain without sciatica 08/02/[address] (HCC) 06/01/2020 Placed 2019 after colectomy due to perforated diverticulitis. 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 07/09/[address] Cunningham, stent to LAD Current moderate episode of major depressive disorder without prior episode (HCC) 07/14/2018 Current use of proton pump inhibitor 06/26/2017 Mg checked 06/2017 Diverticulosis 11/16/2013 Encounter for Medicare annual wellness exam 01/15/2021 Medical B eligibilty date 05/23/19 Date of last exam n/a Essential hypertension Ex-smoker 10/19/2014 Started at age 14 smoked up to 1 PPD. As of 12/2015 1/2 PPD or less. Quit 08/2019 Fibromyalgia 11/17/2013 Foot callus 06/01/2020 Gastroesophageal reflux disease without esophagitis 01/08/2016 Glaucoma suspect of both eyes 09/14/2021 Dr[facility] Hiatal hernia 07/28/2017 Hip arthritis 04/01/[address] Ivy (Ortho) History of shingles 2005 Insomnia 01/08/2016 Iron deficiency anemia 07/04/[address] 11/11/2022 DPA: Son, Wilbert Carr Lumbar degenerative disc disease 12/28/[address] Arriaza Migraine without aura and without status migrainosus, not intractable 07/09/2016 Mixed hyperlipidemia Moderate pulmonary hypertension (HCC (more content not included)...[facility]03-25-2025 History of Present illness Narrative* Magan Amador MD - 09/14/2024 2:11 PM EDT Images from the original note were not included. Ty Yu is a 69 year old female here for a Medicare wellness visit. Medicare Health Risk Assessment General Health Good Exercise: Minutes/Day none Exercise: Days/Week 0 days Alcohol: Daily Use Never Alcohol: Drinks/Day Patient does not drink Alcohol: 6 or more drinks Never Feel off balance Yes (did see eye doctor and have new glasses coming) Concerns: Teeth/Dentures no Concerns: Sexual function no Troubled by feelings Irritable; Lonely; Isolated Frequency: Eating healthy diet Not at all ADLs requiring help None of the above Safety precautions in home/vehicle No Smoke, vape, chews tobacco Yes, and I might quit Difficulty hearing No Difficulty seeing No Current Providers Specialists: I have reviewed specialist-related care of the patient in the medical record. Current care team: Patient Care Team: Magan Amador MD as PCP - General (Family Medicine) Marjan Vergara APRN.COMPLIANCE MONITOR as Nuclear Reactor Operator (Family Medicine) Heaven Garg PA-C as Nuclear Reactor Operator (Family Medicine) [facility]: Dr. Mayfield: renal Optho Dr. Eldridge: Neuro Dr. Brian Medical/Family history review Reviewed and updated problem list, medical/surgical/family/social history, medications, and allergies. Opioid use review Opioid Medications (last 90 days) No data to display Anxiety/Depression screening PHQ-2 Score: 0 (Lower risk for depression) Recommendation: no further intervention at this time Cognitive screening Cognitive screening reviewed and Patient has known cognitive impairment. Functional Observation Was the patient's Timed Up & Go test unsteady or >= 12 seconds? No Advance Care Planning Patient did not wish or was not able to name a surrogate decision maker or provide an advance care plan Measurements BP 130/70 Pulse 76 Resp 16 Ht 163.8 cm (5' 4.5) Wt 72.6 kg (160 lb) LMP 05/22/2006 BMI27.04 kg/m Vision Screening: Follows with optometry/ophthalmology Assessment/Plan Medicare annual wellness visit, subsequent (Z00.00) - Counseled on healthy diet and regular exercise - Fall avoidance information provided - Personalized prevention plan provided See HPI Chief Complaint Patient presents with: Medicare Wellness Exam HPI Ty Yu is a 69 year old female who presents here today for Chronic Medical Conditions. and Medicare Annual Visit. Patient with hx of CAD, HTN, hyperlipidemia, a. Fib, CKD, DM2, iron def anemia, schatzki's ring, dementia, depression, carotid stenosis, and those as below. Ref Range & Units 6 mo ago (03/09/24) 1 yr ago (09/08/23) 1 yr ago (05/28/23) 1 yr ago (11/11/22) 2 yr ago (08/12/22) 2 yr ago (05/08/22) 3 yr ago (08/02/21) Hemoglobin A1C 4.3 - 5.6 % 6.5 High 6.4 High CM 6.2 Abnormal R 6.3 High CM 6.6 High CM 6.4 High CM 6. Patient sees Ophthalmology last visit 03/2024 Past medical history, appointments, medications, allergies reviewed. Previous Medical History PAST MEDICAL HISTORY Diagnosis Date Age-related osteoporosis without current pathological fracture 06/01/2020 Anxiety 07/05/2013 Asthma diagnosed in childhood Urias's palsy Bilateral carotid artery disease (HCC) 12/15/2017 US 11/2017: 20-40% on right and 40-60% on left. Bilateral carotid artery stenosis 02/12/2021 US 11/2017: 20-40% on right and 40-60% on left. Bursitis of right hip 04/01/2013 Cataract 09/14/2021 Dr. [facility]ín [facility] Chicken pox as a child Chronic midline low back pain without sciatica 08/02/[address] (HCC) 06/01/2020 Placed 2019 after colectomy due to perforated diverticulitis. 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 07/09/[address] Cunningham, stent to LAD Current moderate episode of major depressive disorder without prior episode (HCC) 07/14/2018 Current use of proton pump inhibitor 06/26/2017 Mg checked 06/2017 Diverticulosis 11/16/2013 Encounter for Medicare annual wellness exam 01/15/2021 Medical B eligibilty date 05/23/19 Date of last exam n/a Essential hypertension Ex-smoker 10/19/2014 Started at age 14 smoked up to 1 PPD. As of 12/2015 1/2 PPD or less. Quit 08/2019 Fibromyalgia 11/17/2013 Foot callus 06/01/2020 Gastroesophageal reflux disease without esophagitis 01/08/2016 Glaucoma suspect of both eyes 09/14/2021 [facility] Hiatal hernia 07/28/2017 Hip arthritis 04/01/[address] Ivy (Ortho) History of shingles 2005 Insomnia 01/08/2016 Iron deficiency anemia 07/04/[address] 11/11/2022 DPA: Son, Wilbert Carr Lumbar degenerative disc disease 12/28/[address] Arriaza Migraine without aura and without status migrainosus, not intractable 07/09/2016 Mixed hyperlipidemia Moderate pulmonary hypertension (HCC) 02/12/2021 Osteoarthritis of multiple joints 09/06/[address] Ford Continue home meds: prednisone and methotrexate Paroxysmal atrial fibrillation (HCC) 02/12/2021 RLS (restless legs syndrome) Smoker 10/19/2014 Started at age 14 smoked up to 1 PPD. As of 12/2015 1/2 PPD or less. Stage 3b chronic kidney disease (HCC) 06/02/2020 Tear of left rotator cuff 07/24/2017 Added automatically from request for surgery [id number] Type 2 diabetes mellitus without complication, without long-term current use of insulin (HCC) 12/17/2017 Unspecified dementia with behavioral disturbance 07/21/[address] Partida. He also stopped her cymbalta and started Zoloft Valvular heart disease 02/12/2021 Previous Surgical History PAST SURGICAL HISTORY Procedure Laterality Date 2D ECHO (EXEP) 08/24/2019 EF=65%, mild Freire Dysf, 1+ TI, APPENDECTOMY HX 1974 BREAST BIOPSY 07/30/2018 left vacuum assisted core needle biopsy [facility] COLONOSCOPY FLX DX W/COLLJ SPEC WHEN PFRMD 09/01/2018 Colonoscopy, repeat 10 yrs ESOPHAGOGASTRODUODENOSCOPY TRANSORAL DIAGNOSTIC 09/01/2018 EGD LAPAROSCOPIC HEMICOLECTOMY 2018 due to ruptured diverticulitis, has colostomy LAPAROSCOPY SURG CHOLECYSTECTOMY Cholecystectomy, lap LIG/TRNSXJ FLP TUBE ABDL/VAG APPR UNI/BI Tubal ligation PAST SURGICAL HISTORY OF bladder lift RECONSTRUCTION ROTATOR CUFF AVULSION CHRONIC Left 08/08/2017 Left shoulder arthroscopy, Open RCR and SAD REMV CATARACT EXTRACAP,INSERT LENS Bilateral 10/2022 STENT PLACEMENT 05/06/2013 LAD STRESS TEST 07/28/2017 normal TOTAL ABDOMINAL HYSTERECT W/WO RMVL TUBE OVARY Hysterectomy, LESA Family History FAMILY HISTORY Problem Relation Age of Onset Cancer Father Pancreatic Hypertension Mother at age 7, [place] at age 42 Coronary Artery Disease Mother 70 Lipids Mother Headache Mother Cancer Sister Non Hodgken's lymphoma Diabetes Sister Thyroid Sister No Known Problems Daughter No Known Problems Son Diabetes Brother other (Other) Brother MDS Diabetes Maternal Aunt Heart Attack Maternal Grandmother COPD Maternal Grandfather Cancer Paternal Grandmother Stroke Paternal Grandfather Patient Allergies ALLERGIES Allergen Reactions Bees Anaphylaxis Lipitor [Atorvastat* Myalgia Phenergan [Prometha* GI Upset Pravastatin Myalgia Qjokoqq-Yum-Vtc Red* Myalgia Trazodone Other: See Comments Increased urine frequency Current Medications Current Outpatient Medications on File Prior to Visit Medication Sig pantoprazole DR (PROTONIX) 40 mg tablet Take 1 tablet by mouth two times a day. Fenofibrate (LOFIBRA) 54 mg tablet Take 1 tablet by mouth once daily. pioglitazone (ACTOS) 30 mg tablet Take 1 tablet by mouth once daily. dilTIAZem CD (CARTIA XT) 180 mg 24 hr capsule Take 1 capsule by mouth once daily. buPROPion SR (WELLBUTRIN SR) 150 mg 12 hr tablet Take 1 tablet by mouth once daily for 7 days, THEN1 tablet two times a day. ezetimibe (ZETIA) 10 mg tablet Take 1 tablet by mouth once daily. Magnesium Oxide 500 mg magnesium tab Take 1 tablet by mouth two times a day. mirtazapine (REMERON) 30 mg tablet Take 1 tablet by mouth daily at bedtime. EPINEPHrine (EPIPEN 2-ESTEFANIA) 0.3 mg/0.3 mL auto-injector Inject 0.3 mL intramuscularly as needed. atorvastatin (LIPITOR) 80 mg tablet Take 1 tablet by mouth daily at bedtime. For cholesterol. gabapentin (NEURONTIN) 100 mg capsule Take 100 mg by mouth. Taken prn per gastro sucralfate (CARAFATE) 1 gram tablet Take 1 tablet by mouth three times a day as needed. Lancets lancets Test blood sugar(s) 1 times daily. Dx: Other DM Code E11.9, Insulin: No scopolamine (TRANSDERM-SCOP) patch 1.5 mg/72 hr (delivers 1 mg over 3 days) Apply 1 Patch as directed every 72 hours. cyanocobalamin (VITAMIN B-12) 500 mcg tablet Take 500 mcg by mouth twice daily. Take 2 tablets daily mometasone (NASONEX) 50 mcg/actuation nasal spray Mometasone Furoate [Nasonex] 2 SPRAY NASAL DAILY PRN For Cold Symptons December 30, 2017 Active nitroglycerin sublingual (NITROSTAT) 0.4 mg SL tablet Dissolve 1 tablet under the tongue every 5 minutes as needed for chest pain. blood sugar diagnostic (BLOOD GLUCOSE TEST) test strip Test blood sugar(s) 1 times daily. Dx: E11.9Insulin: No memantine (NAMENDA) 5 mg tablet Take 5 mg by mouth two times a day. (Patient not taking: Reported on 03/09/2024) cholecalciferol, vitamin D3, (VITAMIN D3 ORAL) Take by mouth once daily. Ferrous Sulfate (SLOW FE) 142 mg (45 mg iron) TbER Take 1 tablet by mouth once daily. aspirin, enteric coated (ADULT LOW DOSE ASPIRIN) 81 mg EC tablet Take 1 tablet by mouth once daily. No current facility-administered medications on file prior to visit. Social History Social History Tobacco Use Smoking status: Some Days Current packs/day: 0.00 Average packs/day: 0.5 packs/day for 52.9 years (26.5 ttl pk-yrs) Types: Cigarettes Start date: 06/23/1968 Last attempt to quit: 05/18/2021 Years since quittin.3 Smokeless tobacco: Never Vaping Use Vaping status: Never Used Substance Use Topics Alcohol use: No Drug use: No Review of Symptoms REVIEW OF SYSTEMS GENERAL: No weight loss, malaise or fevers HEENT: Negative for frequent or significant headaches, No changes in hearing or vision, no nose bleeds or other nasal problems NECK: Negative for lumps, goiter, pain and significant neck swelling RESPIRATORY: Negative for cough, hemoptysis, wheezing, COPD, dyspnea or shortness of breath CARDIOVASCULAR: Negative for chest pain, leg swelling, hypertension, CHF or palpitations GI: No diarrhea, No frequent heartburn or reflux symptoms, and no blood. On occasion has some nausea and vomiting. : No history of dysuria, frequency or blood MUSCULOSKELETAL: Negative for new or changes in her typical joint pain or swelling, back pain or muscle pain SKIN: Negative for lesions, rash, and itching PSYCH: Negative for sleep disturbance, mood disorder and recent psychosocial stressors HEMATOLOGY/LYMPHOLOGY: Negative for prolonged bleeding, bruising easily or swollen nodes ENDOCRINE: Negative for cold or heat intolerance, symptoms of low BS's NEURO: No history of headaches, syncope, paralysis, seizures or tremors EXAM: BP 130/70 Pulse 76 Resp 16 Ht 163.8 cm (5' 4.5) Wt 72.6 kg (160 lb) LMP 05/22/2006 BMI27.04 kg/m Last 4 Encounter Wt Readings: Date: Wt: 09/14/2024 72.6 kg (160 lb) 07/05/2024 72.6 kg (160 lb) 03/09/2024 72.1 kg (159 lb) 09/08/2023 65.8 kg (145 lb) General Appearance: Well appearing, alert, in no acute distress, well-hydrated, well nourished.. Head: Normocephalic, no masses, lesions, tenderness or abnormalities. Eyes: Anicteric sclera. Pupils are equally round and reactive to light. Extraocular movements are intact. . Ears: External ears, TM's normal, canals clear. Nose/Sinuses: Nares normal, septum midline, mucosa normal, no drainage or sinus tenderness. Oropharynx: Lips, mucosa, and tongue normal, teeth and gums normal, oropharynx normal. Neck: Supple, no adenopathy; thyroid symmetric, normal size, no bruits. Lungs: Lungs clear to auscultation. No wheezing, rhonchi, rales.. Heart: RRR without murmur, gallop, or rubs. No ectopy. Abdomen: Normal abdominal exam, Abdomen soft, non-tender. Bowel sounds normal. No masses, organomegaly. Extremities: No deformities, edema, skin discoloration, clubbing or cyanosis. Good capillary refill. . Musculoskeletal: Muscular strength intact, No joint swelling, deformity, or tenderness. Peripheral Pulses: Normal. Neurologic: Gait normal. Reflexes normal and symmetric. Sensation to light touch and crainal nerves2-12 intact.. Diabetic Foot Exam: Feet: Shoes and socks removed, no deformities, ulcers, calluses, normal distal pulses, sensitive to10 gm microfilament, and vibratory exam within normal limits Skin: warm, dry, and no callouses or ulcer Vascular Pulses: Normal SEMMES-JOSE LUIS MONOFILAMENT TESTING Left Foot Right Foot Dorsal Surface Intact Dorsal Surface Intact Plantar Surface Intact Plantar Surface Intact Health Maintenance List Lung Cancer Screening due on 03/11/2023 Advance Directive Discussion due on 06/23/2024 HbA1C due on 09/06/2024 Diabetic Foot Exam due on 09/07/2024 Covid-19 Vaccine( season) due on 01/02/2025 Dilated Retinal Exam due on 01/20/2025 Urine Albumin:Creatinine Ratio due on 03/09/2025 LDL Cholesterol due on 03/09/2025 Serum Creatinine due on 03/09/2025 Hemoglobin/Hematocrit due on 03/09/2025 Annual PCP Team Chronic Disease Visit due on 07/05/2025 BP Controlled (<130/80) due on 07/05/2025 Mammogram Screening due on 09/14/2025 Bone Density Screening due on 10/09/2025 DTaP,Tdap,Td Vaccine(2 - Td or Tdap) due on 12/30/2027 RSV Vaccine(1 - 1-dose 75+ series) due on 2029 Colorectal Cancer Screening due on 02/20/2030 Influenza Vaccine Completed Shingrix Vaccine Completed Pneumococcal Vaccine: 50+ Completed Hepatitis C Screening Discontinued Data reviewed A/P ASSESSMENT/PLAN: 1. Encounter for Medicare annual wellness exam - ICD9: V70.0, ICD10: Z00.00 (primary diagnosis) - Counseled on healthy diet and regular exercise - Discussed need and benefit for weight loss. BMI 27.04 kg/(m^2) - Follow up for annual exam in one year 2. Type 2 diabetes mellitus with stage 3b chronic kidney disease, without long- term current use of insulin (HCC) - ICD9: 250.40, 585.3, ICD10: E11.22, N18.32 - Control undetermined, due for labs - Continue current medications - Counseled on healthy diet and regular exercise - Discussed need for and benefit of weight loss. BMI 27.04 kg/(m^2) - Counseled on avoiding NSAIDs, adequate hydration - Counseled on low sodium diet - on a CCB Check - ALBUMIN/CREATININE RATIO, URINE - COMPREHENSIVE METABOLIC PANEL - HEMOGLOBIN A1C - URINALYSIS, WITH MICROSCOPIC - LIPID PANEL, NONFASTING - COMPLETE BLOOD COUNT AND DIFFERENTIAL 3. Essential hypertension - ICD9: 401.9, ICD10: I10 - Controlled - Continue current medications - Recommend home blood pressure monitoring, to bring results to next visit - Encouraged sodium restriction, DASH or Mediterranean diet - Recommend regular aerobic exercise - Discussed need for and benefit of weight loss. BMI 27.04 kg/(m^2) Check - COMPREHENSIVE METABOLIC PANEL - URINALYSIS, WITH MICROSCOPIC - LIPID PANEL, NONFASTING 4. Mixed hyperlipidemia - ICD9: 272.2, ICD10: E78.2 - Control undetermined, due for labs - Continue current medications - Counseled on healthy diet and regular exercise - Discussed need for and benefit of weight loss. BMI 27.04 kg/(m^2) Check - COMPREHENSIVE METABOLIC PANEL - URINALYSIS, WITH MICROSCOPIC - LIPID PANEL, NONFASTING 5. Gastroesophageal reflux disease without esophagitis - ICD9: 530.81, ICD10: K21.9 - Continue treatment with protonix 40 mg BID - patient advised she would need to get back in with [facility], Dr. Friend, to get refills of her gabapentin and scopolamine patches for her nausea symptoms. Check - VITAMIN B12 - MAGNESIUM 6. Migraine without aura and without status migrainosus, not intractable - ICD9: 346.10, ICD10: G43.009 - stable and seeing Neuro 7. 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- ICD9: 414.01, ICD10: I25.10 - advised patient she needs to get back in with [facility] Check - COMPREHENSIVE METABOLIC PANEL - LIPID PANEL, NONFASTING 8. Stage 3b chronic kidney disease (HCC) - ICD9: 585.3, ICD10: N18.32 Managed per renal Check - URINALYSIS, WITH MICROSCOPIC - COMPLETE BLOOD COUNT AND DIFFERENTIAL 9. Paroxysmal atrial fibrillation (HCC) - ICD9: 427.31, ICD10: I48.0 - cont meds and management per Cardio. Needs to get back in with cardio. - THYROID STIMULATING HORMONE 10. Moderate pulmonary hypertension (HCC) - ICD9: 416.8, ICD10: I27.20 - as per #7 11. Iron deficiency anemia, unspecified iron deficiency anemia type - ICD9: 280.9, ICD10: D50.9 Check - COMPLETE BLOOD COUNT AND DIFFERENTIAL - FERRITIN - IRON AND TIBC 12. Dementia with behavioral disturbance (HCC) - ICD9: 294.21, ICD10: F03.918 - on meds and managed by Neuro 13. Bilateral carotid artery stenosis - ICD9: 433.10, 433.30, ICD10: I65.23 Check - LIPID PANEL, NONFASTING - check US 14. Current moderate episode of major depressive disorder without prior episode (HCC) - ICD9: 296.22, ICD10: F32.1 - stable on current Tx. 15. Fibromyalgia - ICD9: 729.1, ICD10: M79.7 - stable on current Tx. 16. Insomnia, unspecified type - ICD9: 780.52, ICD10: G47.00 - managed per neuro 17. RLS (restless legs syndrome) - ICD9: 333.94, ICD10: G25.81 - stable no changes. 18. Colostomy in place (HCC) - ICD9: V44.3, ICD10: Z93.3 - no current issues. Orders per [facility] 19. Age-related osteoporosis without current pathological fracture - ICD9: 733.01, ICD10: M81.0 - Reviewed the need for Calcium and Vitamin D supplements and weight bearing exercise as tolerated - patient declined to see Endo 20. Diabetic eye exam (HCC) - ICD9: V72.0, 250.00, ICD10: Z01.00, E11.9 - up to date 21. Medication management - ICD9: V58.69, ICD10: Z79.899 Check - VITAMIN B12 - MAGNESIUM - FOLATE, SERUM Requested Prescriptions Signed Prescriptions Disp Refills atorvastatin (LIPITOR) 80 mg tablet 90 tablet 1 Sig: Take 1 tablet by mouth daily at bedtime. For cholesterol. dilTIAZem CD (CARTIA XT) 180 mg 24 hr capsule 90 capsule 1 Sig: Take 1 capsule by mouth once daily. ezetimibe (ZETIA) 10 mg tablet 90 tablet 1 Sig: Take 1 tablet by mouth once daily. mirtazapine (REMERON) 30 mg tablet 90 tablet 1 Sig: Take 1 tablet by mouth daily at bedtime. scopolamine (TRANSDERM-SCOP) patch 1.5 mg/72 hr (delivers 1 mg over 3 days) 6 Patch 2 Sig: Apply 1 Patch as directed every 72 hours. Per Gastro: Dr. Brian gabapentin (NEURONTIN) 100 mg capsule Sig: Taken prn per gastro. Dr. Brian F/u 6 months routine.. I spent a total of 58 minutes on the date of the service which included preparing to see the patient, [id number] patient care, completing clinical documentation, performing a medically appropriate examination, counseling and educating the patient/family/caregiver and ordering medications, tests, or procedures. Magan Amador MD [facility] Telephone encounter Note * Telephone Encounter - Amy Diamond MA - 09/14/2024 1:57 PM EDT Pt notified and verbalized understanding Amy Diamond MA [facility]03-25-2025 Miscellaneous Notes* Telephone Encounter - Amy Diamond MA - 09/14/2024 1:57 PM EDT Pt notified and verbalized understanding Amy Diamond MA * Telephone Encounter - Marjan Vergara APRN.CNP - 09/14/2024 1:00 PM EDT Please let patient know her mammogram is negative for malignancy. Patient should continue with annual screenings. documented in this encounterL[facility]03-[facility]25 Telephone encounter Note * Telephone Encounter - Marjan Vergara APRN.CNP - 09/14/2024 1:00 PM EDT Please let patient know her mammogram is negative for malignancy. Patient should continue with annual screenings. [facility] Work Phone: 1(549) 734-714503-25-2025 History of Present illness Narrative* Pita Serna RDMS - 09/14/2024 11:30 AM EDT Radiology Service Progress Note PATIENT NAME: Ty Yu DATE OF SERVICE: September 14, 2024 TIME: 1:26 PM PATIENT IDENTITY VERIFICATION COMPLETED USING TWO (2) IDENTIFIERS: Name and Date of confirmedby patient verbally. FALL SCREENING: Has the patient had 2 falls in the last year or 1 fall with injury or currently using an Ambulatory Assistive Device (Walker, Cane, Wheelchair, Crutches, etc.)? No PATIENT GENDER DATA: Assigned female at . status: : No status:NO. PATIENT RELEVANT IMPLANT DATA REVIEWED: Not Applicable PATIENT PRESENTS WITH AN IMPLANTABLE OR ATTACHED PSYCHIATRIC LPN: No RADIOLOGY DEPARTMENT: Ultrasound PERIPHERAL IV DATA: Not applicable SIGNED BY: Pita Serna RDMS RVT September 14, 2024 1:26 PM documented in this encounterL[facility]03-25-2025 NoteHNO ID: [id number] Author: PITA SERNA RDMS Service: ? Author Type: Airborne Weapons Technical Manager Type: Progress Notes Filed: 09/14/2024 13:26 Note Text: Radiology Service Progress Note PATIENT NAME: Ty Yu DATE OF SERVICE: September 14, 2024 TIME: 1:26 PM PATIENT IDENTITY VERIFICATION COMPLETED USING TWO (2) IDENTIFIERS: Name and Date of confirmed by patient verbally. FALL SCREENING: Has the patient had 2 falls in the last year or 1 fall with injury or currently using an Ambulatory Assistive Device (Walker, Cane, Wheelchair, Crutches, etc.)? No PATIENT GENDER DATA: Assigned female at . status: : No status: NO. PATIENT RELEVANT IMPLANT DATA REVIEWED: Not Applicable PATIENT PRESENTS WITH AN IMPLANTABLE OR ATTACHED PSYCHIATRIC LPN: No RADIOLOGY DEPARTMENT: Ultrasound PERIPHERAL IV DATA: Not applicable SIGNED BY: Pita Serna RDMS RVT September 14, 2024 1:26 [facility]03-25-2025 History of Present illness Narrative* Senait Arce Mammo Tech - 09/14/2024 11:00 AM EDT Radiology Service Progress Note PATIENT NAME: Ty Yu DATE OF SERVICE: September 14, 2024 TIME: 11:17 AM PATIENT IDENTITY VERIFICATION COMPLETED USING TWO (2) IDENTIFIERS: Name and Date of confirmedby patient verbally. FALL SCREENING: Has the patient had 2 falls in the last year or 1 fall with injury or currently using an Ambulatory Assistive Device (Walker, Cane, Wheelchair, Crutches, etc.)? No PATIENT GENDER DATA: Assigned female at . status: : No status:NO. PATIENT RELEVANT IMPLANT DATA REVIEWED: Not Applicable PATIENT PRESENTS WITH AN IMPLANTABLE OR ATTACHED PSYCHIATRIC LPN: No RADIOLOGY DEPARTMENT: Mammography PERIPHERAL IV DATA: Not applicable SIGNED BY: Vicente Jerome September 14, 2024 11:17 AM documented in this encounterL[facility]03-25-2025 NoteHNO ID: [id number] Author: SENAIT ARCE Mammo Tech Service: ? Author Type: Outcomes Manager Type: Progress Notes Filed: 09/14/2024 11:18 Note Text: Radiology Service Progress Note PATIENT NAME: Ty Yu DATE OF SERVICE: September 14, 2024 TIME: 11:17 AM PATIENT IDENTITY VERIFICATION COMPLETED USING TWO (2) IDENTIFIERS: Name and Date of confirmed by patient verbally. FALL SCREENING: Has the patient had 2 falls in the last year or 1 fall with injury or currently using an Ambulatory Assistive Device (Walker, Cane, Wheelchair, Crutches, etc.)? No PATIENT GENDER DATA: Assigned female at . status: : No status: NO. PATIENT RELEVANT IMPLANT DATA REVIEWED: Not Applicable PATIENT PRESENTS WITH AN IMPLANTABLE OR ATTACHED PSYCHIATRIC LPN: No RADIOLOGY DEPARTMENT: Mammography PERIPHERAL IV DATA: Not applicable SIGNED BY: Vicente Jerome September 14, 2024 11:17 [facility]03-04-2025 Evaluation note* Diagnosis Onset Date Resolution Status Admit Date Low back pain acute August 24, 2024 2:23pm Myalgia acute August 24 2:23pm Anxiety chronic August 24 2:23pm Dementia chronic August 24 2:23pm Depression chronic August 24 2:23pm Insomnia chronic August 24 2:23pm [facility] Work Phone: 1(834) 759-761003-04-2025 Evaluation note* Diagnosis Onset Date Resolution Status Admit Date Low back pain acute August 24, 2024 2:23pm Myalgia acute August 24 2:23pm Anxiety chronic August 24 2:23pm Dementia chronic August 24 2:23pm Depression chronic August 24 2:23pm Insomnia chronic August 24 2:23pm Low back pain acute November 30, 2024 2:52pm Myalgia acute November 30 2:52pm Anxiety chronic November 30 2:52pm Dementia chronic November 30 2:52pm Depression chronic November 30 2:52pm Insomnia chronic November 30 2:52pm Shortness of breath acute December 09, 2024 10:59am GERD (gastroesophageal reflu x disease) chronic December 09, 2024 10:59am [facility] Work Phone: [phone]) [phone] Telephone encounter Note* Telephone Encounter - Magan Amador MD - 07/27/2024 5:06 PM EST The following approved medication requests have been transmitted electronically. Requested Prescriptions Signed Prescriptions Disp Refills pantoprazole DR (PROTONIX) 40 mg tablet 180 tablet 1 Sig: Take 1 tablet by mouth two times a day. Authorizing Provider: MAGAN AMADOR MD [facility]02-04-2025 Miscellaneous Notes* Telephone Encounter - Magan Amador MD - 07/27/2024 5:06 PM EST The following approved medication requests have been transmitted electronically. Requested Prescriptions Signed Prescriptions Disp Refills pantoprazole DR (PROTONIX) 40 mg tablet 180 tablet 1 Sig: Take 1 tablet by mouth two times a day. Authorizing Provider: MAGAN AMADOR MD * Telephone Encounter - Enriqueta Hoffmann LPN - 07/27/2024 2:18 PM EST The patient has been identified by name and date of : Yes Caregiver verified no other encounters exist for this prescription request: Yes Caregiver confirmed with patient/requestor that no other refills are due, in the near future, with this provider at this time: Yes The last office visit in the department: 07/05/2024 Does the patient have a future office visit with this provider/department: Yes 09/14/2024 Requested Prescriptions Pending Prescriptions Disp Refills pantoprazole DR (PROTONIX) 40 mg tablet 180 tablet 2 Sig: Take 1 tablet by mouth two times a day. Enriqueta Hoffmann LPN July 27, 2024 2:19 PM documented in this encounterL[facility]02-04-2025 Telephone encounter Note * Telephone Encounter - Enriqueta Hoffmann LPN - 07/27/2024 2:18 PM EST The patient has been identified by name and date of : Yes Caregiver verified no other encounters exist for this prescription request: Yes Caregiver confirmed with patient/requestor that no other refills are due, in the near future, with this provider at this time: Yes The last office visit in the department: 07/05/2024 Does the patient have a future office visit with this provider/department: Yes 09/14/2024 Requested Prescriptions Pending Prescriptions Disp Refills pantoprazole DR (PROTONIX) 40 mg tablet 180 tablet 2 Sig: Take 1 tablet by mouth two times a day. Enriqueta Hoffmann LPN July 27, 2024 2:19 PM [facility]01-27-2025 Telephone encounter Note* Telephone Encounter - Maddison Munoz MA - 07/19/2024 8:26 AM EST Order has been signed and faxed to [facility]. Fax confirmation received. [facility]01-27-2025 Miscellaneous Notes* Telephone Encounter - Maddison Munoz MA - 07/19/2024 8:26 AM EST Order has been signed and faxed to [facility]. Fax confirmation received. * Telephone Encounter - Maddison Munoz MA - 07/16/2024 4:00 PM EST Order printed and waiting for physician signature. * Telephone Encounter - Danielle Dawson LPN - 07/16/2024 2:00 PM EST Patient would like to have orders for image guided injection sent to [facility], fax [phone]. Had discussed getting injection closer to home with Dr. Ivy at 07/05/24 office visit. Danielle Dawson LPN documented in this encounterL[facility]01-24-2025 Telephone encounter Note * Telephone Encounter - Maddison Munoz MA - 07/16/2024 4:00 PM EST Order printed and waiting for physician signature. [facility]01-24-2025 Telephone encounter Note* Telephone Encounter - Danielle Dawson LPN - 07/16/2024 2:00 PM EST Patient would like to have orders for image guided injection sent to [facility], fax [phone]. Had discussed getting injection closer to home with Dr. Ivy at 07/05/24 office visit. Danielle Dawson LPN [facility]01-21-2025 Telephone encounter Note* Telephone Encounter - Heaven Garg PA-C - 07/13/2024 7:54 AM EST Order placed. [facility]01-21-2025 Miscellaneous Notes* Telephone Encounter - Heaven Garg PA-C - 07/13/2024 7:54 AM EST Order placed. * Telephone Encounter - Kelly Ragsdale Mammo Tech - 07/13/2024 7:35 AM EST Could we have a bilateral Diagnostic mammogram order? We can do the pt screening along with her diagnostic mammogram. Thanks a million documented in this encounterL[facility]01-21-2025 Telephone encounter Note * Telephone Encounter - Melyssa Vicente Mendoza - 07/13/2024 7:35 AM EST Could we have a bilateral Diagnostic mammogram order? We can do the pt screening along with her diagnostic mammogram. Thanks a million [facility]01-13-2025 NoteHNO ID: [id number] Author: BRAIN IVY MD Service: ? Author Type: Physician Type: Progress Notes Filed: 07/05/2024 17:24 Note Text: Brain Ivy MD Department of Orthopaedics Orthopaedics [address] [facility] [address] Dept: [phone] Dept July 05, 2024 CHIEF COMPLAINT: Established Patient and Pain of the Right Hip HPI Patient returns with worsening pain in the right hip. It has been bothering her with ambulating but more so in seated position for long periods of time and then later standing. She did have a cortisone injection in the right hip nearly a decade ago. AMB ROOMING INTAKE FLOWSHEET DATA Pain Pain Level: 10 Pain Location: Hip-Right Description: Aching Duration Units: Years Frequency: Continuous Intervention/Comfort measure: Reposition, Relaxation, Medication Patient presents with: Right Hip - Established Patient, Pain Suma Reed LPN ASSESSMENT: M16.11 Primary osteoarthritis of right hip (primary encounter diagnosis) PLAN: Bit of an exacerbation of her underlying osteoarthritis yet with still preserved joint space. My recommendation is for an image guided injection. [place] travel from [place] and she would like to try to get that taken care of closer to home. I provided an order for that procedure. Will continue to monitor patient for Primary osteoarthritis of right hip (primary encounter diagnosis), patient to schedule visit as per follow up discussed. OBJECTIVE: Ms. Ty Yu is a pleasant 69 year old in no apparent distress. Gen:LMP 05/22/2006 nl development, non obese, no deformities ENT: Normocephalic, normal hearing, moist mucosa CV: Pulses:DP/PT= 2+ and symmetric, capillary refill < 2 secs, no peripheral edema/varicosities Skin: no rash, bruising or lesions. Good turgor. Psych: cooperative and appropriate, alert and oriented x 3, good mood and affect. Musculoskeletal: Patient walks with a slightly antalgic gait on the right. She has flexion of about 100 degrees and internal rotation of 20 with reproducible pain in the groin. Imaging: IMPRESSION: AP view of the pelvis and AP and lateral views of the right hip demonstrate no acute fracture or dislocation. There is mild superior lateral joint space narrowing bilaterally, stable, consistent with degenerative change. Remaining joint spaces of the pelvis appear stable. Degenerative changes of the included lower lumbar spine. Ostomy noted in the left lower abdomen. Vending Machine Attendant[facility] Transcribe Date/Time: Jul 05 2024 3:09P Dictated by : BILLY TAYLOR MD This examination was interpreted and the report reviewed and electronically signed by: BILLY TAYLOR MD on Jul 05 2024 3:11PM EST Results-Findings * * *Final Report* * * DATE OF EXAM: Jul 05 2024 2:50PM [id number] - XR HIP 3V PELV+ AP/LAT RT / PROCEDURE REASON: Right hip pain * * * * Physician Interpretation * * * * History: Right hip pain FINDINGS/ Supporting Subjective Information Below: Past Surgical History: PAST SURGICAL HISTORY Procedure Laterality Date 2D ECHO (EXEP) 08/24/2019 EF=65%, mild Freire Dysf, 1+ TI, APPENDECTOMY HX 1975 BREAST BIOPSY 07/30/2018 left vacuum assisted core needle biopsy [facility] COLONOSCOPY FLX DX W/COLLJ SPEC WHEN PFRMD 09/01/2018 Colonoscopy, repeat 10 yrs ESOPHAGOGASTRODUODENOSCOPY TRANSORAL DIAGNOSTIC 09/01/2018 EGD LAPAROSCOPIC HEMICOLECTOMY 2019 due to ruptured diverticulitis, has colostomy LAPAROSCOPY SURG CHOLECYSTECTOMY Cholecystectomy, lap LIG/TRNSXJ FLP TUBE ABDL/VAG APPR UNI/BI Tubal ligation PAST SURGICAL HISTORY OF bladder lift RECONSTRUCTION ROTATOR CUFF AVULSION CHRONIC Left 08/08/2017 Left shoulder arthroscopy, Open RCR and SAD REMV CATARACT EXTRACAP,INSERT LENS Bilateral 10/2022 STENT PLACEMENT 05/06/2013 LAD STRESS TEST 07/28/2017 normal TOTAL ABDOMINAL HYSTERECT W/WO RMVL TUBE OVARY Hysterectomy, LESA Medications: Current Outpatient Medications Medication Sig Fenofibrate (LOFIBRA) 54 mg tablet Take 1 tablet by mouth once daily. pioglitazone (ACTOS) 30 mg tablet Take 1 tablet by mouth once daily. dilTIAZem CD (CARTIA XT) 180 mg 24 hr capsule Take 1 capsule by mouth once daily. buPROPion SR (WELLBUTRIN SR) 150 mg 12 hr tablet Take 1 tablet by mouth once daily for 7 days, THEN 1 tablet two times a day. ezetimibe (ZETIA) 10 mg tablet Take 1 tablet by mouth once daily. Magnesium Oxide 500 mg magnesium tab Take 1 tablet by mouth two times a day. mirtazapine (REMERON) 30 mg tablet Take 1 tablet by mouth daily at bedtime. EPINEPHrine (EPIPEN 2-ESTEFANIA) 0.3 mg/0.3 mL auto-injector Inject 0.3 mL intramuscularly as needed. atorvastatin (LIPITOR) 80 mg tablet Take 1 tablet by mouth daily at bedtime. For cholesterol. gabapentin (NEURONTIN) 100 mg capsule Take 100 mg by mouth. Taken prn per gastro pantoprazole DR (PROTONIX) 40 mg tablet Take 1 tablet by mouth two (more content not included)...[facility]01-13-2025 History of Present illness Narrative* Brain Ivy MD - 07/05/2024 3:01 PM EST Brain Ivy MD Department of Orthopaedics Orthopaedics [address] [facility] [address] Dept: [phone] Dept July 05, 2024 CHIEF COMPLAINT: Established Patient and Pain of the Right Hip HPI Patient returns with worsening pain in the right hip. It has been bothering her with ambulating butmore so in seated position for long periods of time and then later standing. She did have a cortisone injection in the right hip nearly a decade ago. AMB ROOMING INTAKE FLOWSHEET DATA Pain Pain Level: 10 Pain Location: Hip-Right Description: Aching Duration Units: Years Frequency: Continuous Intervention/Comfort measure: Reposition, Relaxation, Medication Patient presents with: Right Hip - Established Patient, Pain Suma Derek, JAMIE ASSESSMENT: M16.11 Primary osteoarthritis of right hip (primary encounter diagnosis) PLAN: Bit of an exacerbation of her underlying osteoarthritis yet with still preserved joint space.My recommendation is for an image guided injection. She [place] travel from [place] and she would like to try to get that taken care of closer to home. I provided an order for that procedure. Will continue to monitor patient for Primary osteoarthritis of right hip (primary encounter diagnosis), patient to schedule visit as per follow up discussed. OBJECTIVE: Ms. Ty Yu is a pleasant 69 year old in no apparent distress. Gen:LMP 05/22/2006 nl development, non obese, no deformities ENT: Normocephalic, normal hearing, moist mucosa CV: Pulses:DP/PT= 2+ and symmetric, capillary refill < 2 secs, no peripheral edema/varicosities Skin: no rash, bruising or lesions. Good turgor. Psych: cooperative and appropriate, alert and oriented x 3, good mood and affect. Musculoskeletal: Patient walks with a slightly antalgic gait on the right. She has flexion of about 100 degrees and internal rotation of 20 with reproducible pain in the groin. Imaging: IMPRESSION: AP view of the pelvis and AP and lateral views of the right hip demonstrate no acute fracture or dislocation. There is mild superior lateral joint space narrowing bilaterally, stable, consistent with degenerative change. Remaining joint spaces of the pelvis appear stable. Degenerative changes of the included lower lumbar spine. Ostomy noted in the left lower abdomen. Vending Machine Attendant: [employer] Transcribe Date/Time: Jul 05 2024 3:09P Dictated by : BILLY TAYLOR MD This examination was interpreted and the report reviewed and electronically signed by: BILLY TAYLOR MD on Jul 05 2024 3:11PM EST Results-Findings * * *Final Report* * * DATE OF EXAM: Jul 05 2024 2:50PM [id number] - XR HIP 3V PELV+ AP/LAT RT / PROCEDURE REASON: Right hip pain * * * * Physician Interpretation * * * * History: Right hip pain FINDINGS/ Supporting Subjective Information Below: Past Surgical History: PAST SURGICAL HISTORY Procedure Laterality Date 2D ECHO (EXEP) 08/24/2019 EF=65%, mild Freire Dysf, 1+ TI, APPENDECTOMY HX 1975 BREAST BIOPSY 07/30/2018 left vacuum assisted core needle biopsy [facility] COLONOSCOPY FLX DX W/COLLJ SPEC WHEN PFRMD 09/01/2018 Colonoscopy, repeat 10 yrs ESOPHAGOGASTRODUODENOSCOPY TRANSORAL DIAGNOSTIC 09/01/2018 EGD LAPAROSCOPIC HEMICOLECTOMY 2018 due to ruptured diverticulitis, has colostomy LAPAROSCOPY SURG CHOLECYSTECTOMY Cholecystectomy, lap LIG/TRNSXJ FLP TUBE ABDL/VAG APPR UNI/BI Tubal ligation PAST SURGICAL HISTORY OF bladder lift RECONSTRUCTION ROTATOR CUFF AVULSION CHRONIC Left 08/08/2017 Left shoulder arthroscopy, Open RCR and SAD REMV CATARACT EXTRACAP,INSERT LENS Bilateral 10/2022 STENT PLACEMENT 05/06/2013 LAD STRESS TEST 07/28/2017 normal TOTAL ABDOMINAL HYSTERECT W/WO RMVL TUBE OVARY Hysterectomy, LESA Medications: Current Outpatient Medications Medication Sig Fenofibrate (LOFIBRA) 54 mg tablet Take 1 tablet by mouth once daily. pioglitazone (ACTOS) 30 mg tablet Take 1 tablet by mouth once daily. dilTIAZem CD (CARTIA XT) 180 mg 24 hr capsule Take 1 capsule by mouth once daily. buPROPion SR (WELLBUTRIN SR) 150 mg 12 hr tablet Take 1 tablet by mouth once daily for 7 days, THEN1 tablet two times a day. ezetimibe (ZETIA) 10 mg tablet Take 1 tablet by mouth once daily. Magnesium Oxide 500 mg magnesium tab Take 1 tablet by mouth two times a day. mirtazapine (REMERON) 30 mg tablet Take 1 tablet by mouth daily at bedtime. EPINEPHrine (EPIPEN 2-ESTEFANIA) 0.3 mg/0.3 mL auto-injector Inject 0.3 mL intramuscularly as needed. atorvastatin (LIPITOR) 80 mg tablet Take 1 tablet by mouth daily at bedtime. For cholesterol. gabapentin (NEURONTIN) 100 mg capsule Take 100 mg by mouth. Taken prn per gastro pantoprazole DR (PROTONIX) 40 mg tablet Take 1 tablet by mouth two times a day. sucralfate (CARAFATE) 1 gram tablet Take 1 tablet by mouth three times a day as needed. Lancets lancets Test blood sugar(s) 1 times daily. Dx: Other DM Code E11.9, Insulin: No scopolamine (TRANSDERM-SCOP) patch 1.5 mg/72 hr (delivers 1 mg over 3 days) Apply 1 Patch as directed every 72 hours. cyanocobalamin (VITAMIN B-12) 500 mcg tablet Take 500 mcg by mouth twice daily. Take 2 tablets daily mometasone (NASONEX) 50 mcg/actuation nasal spray Mometasone Furoate [Nasonex] 2 SPRAY NASAL DAILY PRN For Cold Symptons December 30, 2017 Active nitroglycerin sublingual (NITROSTAT) 0.4 mg SL tablet Dissolve 1 tablet under the tongue every 5 minutes as needed for chest pain. blood sugar diagnostic (BLOOD GLUCOSE TEST) test strip Test blood sugar(s) 1 times daily. Dx: E11.9Insulin: No memantine (NAMENDA) 5 mg tablet Take 5 mg by mouth two times a day. (Patient not taking: Reported on 03/09/2024) cholecalciferol, vitamin D3, (VITAMIN D3 ORAL) Take by mouth once daily. Ferrous Sulfate (SLOW FE) 142 mg (45 mg iron) TbER Take 1 tablet by mouth once daily. aspirin, enteric coated (ADULT LOW DOSE ASPIRIN) 81 mg EC tablet Take 1 tablet by mouth once daily. No current facility-administered medications for this visit. Allergies: Bees, Lipitor [Atorvastatin Calcium], Phenergan [Promethazine Hcl], Pravastatin, Okicect-Zre-Och Reductase Inhibitors, and Trazodone ROS: General (negative for fatigue, malaise, weight loss/gain) HEENT (negative for headache, earache, recent vision changes, sinus pain, sore throat) Respiratory (no recent shortness of breath, hemoptysis) CV (negative for chest tightness, palpitations) Musculoskeletal (see HPI) Psych (no depression, anxiety) Brain Ivy MD documented in [facility]01-13-[facility]25 History of Present illness Narrative* Mel Bishop, RT(R) - 07/05/2024 2:20 PM EST Radiology Service Progress Note PATIENT NAME: Ty Yu DATE OF SERVICE: July 05, 2024 TIME: 9:58 PM PATIENT IDENTITY VERIFICATION COMPLETED USING TWO (2) IDENTIFIERS: Name and Date of confirmedby patient verbally. FALL SCREENING: Has the patient had 2 falls in the last year or 1 fall with injury or currently using an Ambulatory Assistive Device (Walker, Cane, Wheelchair, Crutches, etc.)? Yes, Patient High Riskfor Falls What interventions were put in place to prevent falls during this visit? Increased Observations by Caregivers PATIENT GENDER DATA: Assigned female at . status: : No status:NO. PATIENT RELEVANT IMPLANT DATA REVIEWED: Not Applicable PATIENT PRESENTS WITH AN IMPLANTABLE OR ATTACHED PSYCHIATRIC LPN: No RADIOLOGY DEPARTMENT: General X-ray: Exam(s) Completed: Pelvis X-Ray: Pelvis with Hip Right PERIPHERAL IV DATA: Not applicable SIGNED BY: RT Dar(R) July 05, 2024 9:58 PM documented [facility]25 NoteHNO ID: [id number] Author: MEL BISHOP RT(R) Service: ? Author Type: Technologist Type: Progress Notes Filed: 07/05/2024 21:59 Note Text: Radiology Service Progress Note PATIENT NAME: Ty Yu DATE OF SERVICE: July 05, 2024 TIME: 9:58 PM PATIENT IDENTITY VERIFICATION COMPLETED USING TWO (2) IDENTIFIERS: Name and Date of confirmed by patient verbally. FALL SCREENING: Has the patient had 2 falls in the last year or 1 fall with injury or currently using an Ambulatory Assistive Device (Walker, Cane, Wheelchair, Crutches, etc.)? Yes, Patient High Risk for Falls What interventions were put in place to prevent falls during this visit? Increased Observations by Caregivers PATIENT GENDER DATA: Assigned female at . status: : No status: NO. PATIENT RELEVANT IMPLANT DATA REVIEWED: Not Applicable PATIENT PRESENTS WITH AN IMPLANTABLE OR ATTACHED PSYCHIATRIC LPN: No RADIOLOGY DEPARTMENT: General X-ray: Exam(s) Completed: Pelvis X-Ray: Pelvis with Hip Right PERIPHERAL IV DATA: Not applicable SIGNED BY: RT Dar(R) July 05, 2024 9:58 [facility]01-13-2025 NoteHNO ID: [id number] Author: HEAVEN GARG PA-C Service: ? Author Type: Physician Pan Devulcanizer Helper Type: Progress Notes Filed: 07/05/2024 14:02 Note Text: Chief Complaint Patient presents with: Breast Problem HPI Ty Yu is a 69 year old female who presents here today for breast concern. Patient reports a pimple like spot on her breast. Has been present for a few months. Hasn't changed in size No tenderness No nipple discharge. Is up to date with mammograms. Past medical history, appointments, medications, allergies reviewed. Previous Medical History PAST MEDICAL HISTORY Diagnosis Date Age-related osteoporosis without current pathological fracture 06/01/2020 Anxiety 07/05/2013 Asthma diagnosed in childhood Urias's palsy Bilateral carotid artery disease (HCC) 12/15/2017 US 11/2017: 20-40% on right and 40-60% on left. Bilateral carotid artery stenosis 02/12/2021 US 11/2017: 20-40% on right and 40-60% on left. Bursitis of right hip 04/01/2013 Cataract 09/14/2021 Dr. [facility] Chicken pox as a child Chronic midline low back pain without sciatica 08/02/[address] (HCC) 06/01/2020 Placed 2019 after colectomy due to perforated diverticulitis. 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 07/09/[address] Cunningham, stent to LAD Current moderate episode of major depressive disorder without prior episode (HCC) 07/14/2018 Current use of proton pump inhibitor 06/26/2017 Mg checked 06/2017 Diverticulosis 11/16/2013 Encounter for Medicare annual wellness exam 01/15/2021 Medical B eligibilty date 05/23/19 Date of last exam n/a Essential hypertension Ex-smoker 10/19/2014 Started at age 14 smoked up to 1 PPD. As of 12/2015 1/2 PPD or less. Quit 08/2019 Fibromyalgia 11/17/2013 Foot callus 06/01/2020 Gastroesophageal reflux disease without esophagitis 01/08/2016 Glaucoma suspect of both eyes 09/14/2021 Dr[facility] Hiatal hernia 07/28/2017 Hip arthritis 04/01/[address] Ivy (Ortho) History of shingles 2005 Insomnia 01/08/2016 Iron deficiency anemia 07/04/[address] 11/11/2022 DPA: Son, Wilbert Carr Lumbar degenerative disc disease 12/28/[address] Arriaza Migraine without aura and without status migrainosus, not intractable 07/09/2016 Mixed hyperlipidemia Moderate pulmonary hypertension (HCC) 02/12/2021 Osteoarthritis of multiple joints 09/06/[address] Ford Continue home meds: prednisone and methotrexate Paroxysmal atrial fibrillation (HCC) 02/12/2021 RLS (restless legs syndrome) Smoker 10/19/2014 Started at age 14 smoked up to 1 PPD. As of 12/2015 1/2 PPD or less. Stage 3b chronic kidney disease (HCC) 06/02/2020 Tear of left rotator cuff 07/24/2017 Added automatically from request for surgery [id number] Type 2 diabetes mellitus without complication, without long-term current use of insulin ([facility]) 12/17/2017 Unspecified dementia with behavioral disturbance 07/21/[address] Partida. He also stopped her cymbalta and started Zoloft Valvular heart disease 02/12/2021 Previous Surgical History PAST SURGICAL HISTORY Procedure Laterality Date 2D ECHO (EXEP) 08/24/2019 EF=65%, mild Freire Dysf, 1+ TI, APPENDECTOMY HX 1975 BREAST BIOPSY 07/30/2018 left vacuum assisted core needle biopsy [facility] COLONOSCOPY FLX DX W/COLLJ SPEC WHEN PFRMD 09/01/2018 Colonoscopy, repeat 10 yrs ESOPHAGOGASTRODUODENOSCOPY TRANSORAL DIAGNOSTIC 09/01/2018 EGD LAPAROSCOPIC HEMICOLECTOMY 2018 due to ruptured diverticulitis, has colostomy LAPAROSCOPY SURG CHOLECYSTECTOMY Cholecystectomy, lap LIG/TRNSXJ FLP TUBE ABDL/VAG APPR UNI/BI Tubal ligation PAST SURGICAL HISTORY OF bladder lift RECONSTRUCTION ROTATOR CUFF AVULSION CHRONIC Left 08/08/2017 Left shoulder arthroscopy, Open RCR and SAD REMV CATARACT EXTRACAP,INSERT LENS Bilateral 10/2022 STENT PLACEMENT 05/06/2013 LAD STRESS TEST 07/28/2017 normal TOTAL ABDOMINAL HYSTERECT W/WO RMVL TUBE OVARY Hysterectomy, LESA Family History FAMILY HISTORY Problem Relation Age of Onset Cancer Father Pancreatic Hypertension Mother at age 7, [place] at age 42 Coronary Artery Disease Mother 70 Lipids Mother Headache Mother Cancer Sister Non Hodgken's lymphoma Diabetes Sister Thyroid Sister No Known Problems Daughter No Known Problems Son Diabetes Brother other (Other) Brother MDS Diabetes Maternal Aunt Heart Attack Maternal Grandmother COPD Maternal Grandfather Cancer Paternal Grandmother Stroke Paternal Grandfather Patient Allergies ALLERGIES Allergen Reactions Bees Anaphylaxis Lipitor [Atorvastat* Myalgia Phenergan [Prometha* GI Upset Pravastatin Myalgia Exexkcy-Cvy-Ccp Red* Myalgia Trazodone Other: See Comments Increased urine frequency Current Medications Current Outpatient Medications on File Prior to Visit Medication S (more content not included)...[facility]01-13-2025 History of Present illness Narrative* Heaven Garg PA-C - 07/05/2024 12:50 PM EST Chief Complaint Patient presents with: Breast Problem HPI Ty Yu is a 69 year old female who presents here today for breast concern. Patient reports a pimple like spot on her breast. Has been present for a few months. Hasn't changed in size No tenderness No nipple discharge. Is up to date with mammograms. Past medical history, appointments, medications, allergies reviewed. Previous Medical History PAST MEDICAL HISTORY Diagnosis Date Age-related osteoporosis without current pathological fracture 06/01/2020 Anxiety 07/05/2013 Asthma diagnosed in childhood Urias's palsy Bilateral carotid artery disease (HCC) 12/15/2017 US 11/2017: 20-40% on right and 40-60% on left. Bilateral carotid artery stenosis 02/12/2021 US 11/2017: 20-40% on right and 40-60% on left. Bursitis of right hip 04/01/2013 Cataract 09/14/2021 Dr. [facility] Chicken pox as a child Chronic midline low back pain without sciatica 08/02/[address] (HCC) 06/01/2020 Placed 2019 after colectomy due to perforated diverticulitis. 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 07/09/[address] Cunningham, stent to LAD Current moderate episode of major depressive disorder without prior episode ([facility]) 07/14/2018 Current use of proton pump inhibitor 06/26/2017 Mg checked 06/2017 Diverticulosis 11/16/2013 Encounter for Medicare annual wellness exam 01/15/2021 Medical B eligibilty date 05/23/19 Date of last exam n/a Essential hypertension Ex-smoker 10/19/2014 Started at age 14 smoked up to 1 PPD. As of 12/2015 1/2 PPD or less. Quit 08/2019 Fibromyalgia 11/17/2013 Foot callus 06/01/2020 Gastroesophageal reflux disease without esophagitis 01/08/2016 Glaucoma suspect of both eyes 09/14/2021 [facility] Hiatal hernia 07/28/2017 Hip arthritis 04/01/[address] Ivy (Ortho) History of shingles 2005 Insomnia 01/08/2016 Iron deficiency anemia 07/04/[address] 11/11/2022 DPA: Son, Wilbert Carr Lumbar degenerative disc disease 12/28/[address] Arriaza Migraine without aura and without status migrainosus, not intractable 07/09/2016 Mixed hyperlipidemia Moderate pulmonary hypertension (HCC) 02/12/2021 Osteoarthritis of multiple joints 09/06/[address] Ford Continue home meds: prednisone and methotrexate Paroxysmal atrial fibrillation (HCC) 02/12/2021 RLS (restless legs syndrome) Smoker 10/19/2014 Started at age 14 smoked up to 1 PPD. As of 12/2015 1/2 PPD or less. Stage 3b chronic kidney disease (HCC) 06/02/2020 Tear of left rotator cuff 07/24/2017 Added automatically from request for surgery [id number] Type 2 diabetes mellitus without complication, without long-term current use of insulin (HCC) 12/17/2017 Unspecified dementia with behavioral disturbance 07/21/[address] Partida. He also stopped her cymbalta and started Zoloft Valvular heart disease 02/12/2021 Previous Surgical History PAST SURGICAL HISTORY Procedure Laterality Date 2D ECHO (EXEP) 08/24/2019 EF=65%, mild Freire Dysf, 1+ TI, APPENDECTOMY HX 1975 BREAST BIOPSY 07/30/2018 left vacuum assisted core needle biopsy [facility] COLONOSCOPY FLX DX W/COLLJ SPEC WHEN PFRMD 09/01/2018 Colonoscopy, repeat 10 yrs ESOPHAGOGASTRODUODENOSCOPY TRANSORAL DIAGNOSTIC 09/01/2018 EGD LAPAROSCOPIC HEMICOLECTOMY 2018 due to ruptured diverticulitis, has colostomy LAPAROSCOPY SURG CHOLECYSTECTOMY Cholecystectomy, lap LIG/TRNSXJ FLP TUBE ABDL/VAG APPR UNI/BI Tubal ligation PAST SURGICAL HISTORY OF bladder lift RECONSTRUCTION ROTATOR CUFF AVULSION CHRONIC Left 08/08/2017 Left shoulder arthroscopy, Open RCR and SAD REMV CATARACT EXTRACAP,INSERT LENS Bilateral 10/2022 STENT PLACEMENT 05/06/2013 LAD STRESS TEST 07/28/2017 normal TOTAL ABDOMINAL HYSTERECT W/WO RMVL TUBE OVARY Hysterectomy, LESA Family History FAMILY HISTORY Problem Relation Age of Onset Cancer Father Pancreatic Hypertension Mother at age 7, NM at age 42 Coronary Artery Disease Mother 70 Lipids Mother Headache Mother Cancer Sister Non Hodgken's lymphoma Diabetes Sister Thyroid Sister No Known Problems Daughter No Known Problems Son Diabetes Brother other (Other) Brother MDS Diabetes Maternal Aunt Heart Attack Maternal Grandmother COPD Maternal Grandfather Cancer Paternal Grandmother Stroke Paternal Grandfather Patient Allergies ALLERGIES Allergen Reactions Bees Anaphylaxis Lipitor [Atorvastat* Myalgia Phenergan [Prometha* GI Upset Pravastatin Myalgia Mraesnf-Czb-Gbn Red* Myalgia Trazodone Other: See Comments Increased urine frequency Current Medications Current Outpatient Medications on File Prior to Visit Medication Sig dilTIAZem CD (CARTIA XT) 180 mg 24 hr capsule Take 1 capsule by mouth once daily. buPROPion SR (WELLBUTRIN SR) 150 mg 12 hr tablet Take 1 tablet by mouth once daily for 7 days, THEN1 tablet two times a day. ezetimibe (ZETIA) 10 mg tablet Take 1 tablet by mouth once daily. Magnesium Oxide 500 mg magnesium tab Take 1 tablet by mouth two times a day. mirtazapine (REMERON) 30 mg tablet Take 1 tablet by mouth daily at bedtime. EPINEPHrine (EPIPEN 2-ESTEFANIA) 0.3 mg/0.3 mL auto-injector Inject 0.3 mL intramuscularly as needed. atorvastatin (LIPITOR) 80 mg tablet Take 1 tablet by mouth daily at bedtime. For cholesterol. gabapentin (NEURONTIN) 100 mg capsule Take 100 mg by mouth. Taken prn per gastro pantoprazole DR (PROTONIX) 40 mg tablet Take 1 tablet by mouth two times a day. sucralfate (CARAFATE) 1 gram tablet Take 1 tablet by mouth three times a day as needed. Lancets lancets Test blood sugar(s) 1 times daily. Dx: Other DM Code E11.9, Insulin: No scopolamine (TRANSDERM-SCOP) patch 1.5 mg/72 hr (delivers 1 mg over 3 days) Apply 1 Patch as directed every 72 hours. cyanocobalamin (VITAMIN B-12) 500 mcg tablet Take 500 mcg by mouth twice daily. Take 2 tablets daily mometasone (NASONEX) 50 mcg/actuation nasal spray Mometasone Furoate [Nasonex] 2 SPRAY NASAL DAILY PRN For Cold Symptons December 30, 2017 Active nitroglycerin sublingual (NITROSTAT) 0.4 mg SL tablet Dissolve 1 tablet under the tongue every 5 minutes as needed for chest pain. blood sugar diagnostic (BLOOD GLUCOSE TEST) test strip Test blood sugar(s) 1 times daily. Dx: E11.9Insulin: No cholecalciferol, vitamin D3, (VITAMIN D3 ORAL) Take by mouth once daily. Ferrous Sulfate (SLOW FE) 142 mg (45 mg iron) TbER Take 1 tablet by mouth once daily. aspirin, enteric coated (ADULT LOW DOSE ASPIRIN) 81 mg EC tablet Take 1 tablet by mouth once daily. memantine (NAMENDA) 5 mg tablet Take 5 mg by mouth two times a day. (Patient not taking: Reported on 03/09/2024) No current facility-administered medications on file prior to visit. Social History Social History Tobacco Use Smoking status: Some Days Current packs/day: 0.00 Average packs/day: 0.5 packs/day for 52.9 years (26.5 ttl pk-yrs) Types: Cigarettes Start date: 06/23/1968 Last attempt to quit: 05/18/2021 Years since quittin.1 Smokeless tobacco: Never Vaping Use Vaping status: Never Used Substance Use Topics Alcohol use: No Drug use: No Review of Symptoms REVIEW OF SYSTEMS See hpi EXAM: BP 110/70 (BP Site: Left Arm, BP Position: Sitting, BP Cuff Size: Regular Adult) Pulse 99 Temp 36.4 C (97.6 F) Resp 18 Wt 72.6 kg (160 lb) LMP 05/22/2006 SpO2 99% BMI 26.98 kg/m General Appearance: Well appearing, alert, in no acute distress, well-hydrated, well nourished.. Breast: very small cyst like lesion palpated on right breast/aerola at about 11oclock position. No other masses or changes evident. No nipple discharge to palp.. Health Maintenance List Lung Cancer Screening due on 03/11/2023 Influenza Vaccine(1) due on 02/22/2024 Covid-19 Vaccine( season) due on 02/22/2024 Advance Directive Discussion due on 06/23/2024 Mammogram Screening due on 10/09/2024 HbA1C due on 09/06/2024 Diabetic Foot Exam due on 09/07/2024 Dilated Retinal Exam due on 01/20/2025 Urine Albumin:Creatinine Ratio due on 03/09/2025 LDL Cholesterol due on 03/09/2025 Annual PCP Team Chronic Disease Visit due on 03/09/2025 Serum Creatinine due on 03/09/2025 Hemoglobin/Hematocrit due on 03/09/2025 BP Controlled (<130/80) due on 03/09/2025 Bone Density Screening due on 10/09/2025 DTaP,Tdap,Td Vaccine(2 - Td or Tdap) due on 12/30/2027 RSV Vaccine(1 - 1-dose 75+ series) due on 2029 Colorectal Cancer Screening due on 02/20/2030 Shingrix Vaccine Completed Pneumococcal Vaccine: 50+ Completed Hepatitis C Screening Discontinued Data reviewed ASSESSMENT/PLAN: 1. Breast skin changes - ICD9: 782.8, ICD10: R23.4 (primary diagnosis) Suspect small cyst. Given breast changes will get updated mammogram and US. Patient agreeable to plan. - FILIBERTO DIAGNOSTIC RIGHT - US BREAST LTD RIGHT 2. Encounter for immunization - ICD9: V03.89, ICD10: Z23 - INFLUENZA VACCINE, PRSV FREE, AGE 65+ YR, HIGH DOSE, TRIVALENT (FLUZONE HIGH-DOSE) - [employer] COVID-19 VACCINE AGE 12+ YR ([place]) Heaven Garg PA-C documented [facility]01-[facility] Telephone encounter Note * Telephone Encounter - Fidelia Yanes MA - 06/30/2024 3:50 PM EST Patient notified and voiced understanding. Letter faxed. Fidelia Yanes MA [facility]01-08-2025 Miscellaneous Notes* Telephone Encounter - Fidelia Yanes MA - 06/30/2024 3:50 PM EST Patient notified and voiced understanding. Letter faxed. Fidelia Yanes MA * Telephone Encounter - Magan Amador MD - 06/30/2024 1:55 PM EST signed * Telephone Encounter - Fidelia Yanes MA - 06/30/2024 12:31 PM EST Letter on providers desk for signature. Fidelia Yanes MA * Telephone Encounter - Magan Amador MD - 06/30/2024 11:24 AM EST Letter ready to be faxed. Patient requests the letter be faxed to [employer] at [phone]. Patient also requests a call back once letter is sent at [phone]. * Telephone Encounter - Flor Hernandez LPN - 06/18/2024 10:05 AM EST Patient returned call and she states she did not need to reapply just needing a letter as started for CKD to continue insurance coverage. * Telephone Encounter - Fidelia Yanes MA - 06/18/2024 9:46 AM EST Received in the mail 06/17/2024 note from patient requesting a letter be sent for her to continue her benefits. Also attached a letter from [employer] indicating that her benefit card will close as of 06/22/2024. It does mention that patient need to enroll in a 2024 [employer] medic[employer] advantage plan to continue herbenefits. Patients hand written note is asking for provider to send a letter to her to continue her benefits. Please make ask patient if she has applied for her 2024 benefits per the letter. Also provider is out until 06/28/2024. Letter was placed on providers desk. documented in [facility]01-08-[facility]25 Telephone encounter Note * Telephone Encounter - Magan Amador MD - 06/30/2024 1:55 PM EST signed [facility]01-08-[facility] Telephone encounter Note* Telephone Encounter - Fidelia Yanes MA - 06/30/2024 12:31 PM EST Letter on providers desk for signature. Fidelia Yanes MA [facility]01-08-[facility] Telephone encounter Note* Telephone Encounter - Magan Amador MD - 06/30/2024 11:24 AM EST Letter ready to be faxed. Patient requests the letter be faxed to [employer] at [phone]. Patient also requests a call back once letter is sent at [phone]. [facility]12[facility] Telephone encounter Note* Telephone Encounter - Flor Hernandez LPN - 06/18/2024 10:05 AM EST Patient returned call and she states she did not need to reapply just needing a letter as started for CKD to continue insurance coverage. [facility]12-[facility] Telephone encounter Note* Telephone Encounter - Fidelia Yanes MA - 06/18/2024 9:46 AM EST Received in the mail 06/17/2024 note from patient requesting a letter be sent for her to continue her benefits. Also attached a letter from [employer] indicating that her benefit card will close as of 06/22/2024. It does mention that patient need to enroll in a 2024 [employer] medicare advantage plan to continue herbenefits. Patients hand written note is asking for provider to send a letter to her to continue her benefits. Please make ask patient if she has applied for her 2024 benefits per the letter. Also provider is out until 06/28/2024. Letter was placed on providers desk. [facility]12-19-[facility] Telephone encounter Note* Telephone Encounter - Heaven Garg PA-C - 06/10/2024 1:03 PM EST noted [facility]12-19-[facility] Miscellaneous Notes* Telephone Encounter - Heaven Garg PA-C - 06/10/2024 1:03 PM EST noted * Telephone Encounter - Rosemary Mcnair RN - 06/10/2024 11:12 AM EST Patient calling with 2 updates: Patient will be mailing paper work to PCP office that she received from [employer], for provider to review and complete as necessary. Patient calling in with concern for little hard pimple on areola of right breast. Has been there for about 3 months. Size of pencil eraser tip. Slightly raised. No pain, swelling or color changes. Appt made for evaluation for time/date that patient requested; 07/05/24 with RYAN Buenrostro. Rosemary Mcnair RN documented in this encounterL[facility]12-19-2024 Telephone encounter Note * Telephone Encounter - Rosemary Mcnair RN - 06/10/2024 11:12 AM EST Patient calling with 2 updates: Patient will be mailing paper work to PCP office that she received from [employer], for provider to review and complete as necessary. Patient calling in with concern for little hard pimple on areola of right breast. Has been there for about 3 months. Size of pencil eraser tip. Slightly raised. No pain, swelling or color changes. Appt made for evaluation for time/date that patient requested; 07/05/24 with RYAN Buenrostro. Rosemary Mcnair RN [facility]12-12-[facility] Telephone encounter Note* Telephone Encounter - Tonie Turpin LPN - 06/03/2024 10:49 AM EST Pt advised of same. Tonie Turpin LPN [facility]12-12-2024 Miscellaneous Notes* Telephone Encounter - Tonie Turpin LPN - 06/03/2024 10:49 AM EST Pt advised of same. Tonie Turpin LPN * Telephone Encounter - Heaven Garg PA-C - 06/03/2024 10:27 AM EST Prescription sent. Heaven Garg PA-C * Telephone Encounter - Enriqueta Hoffmann LPN - 06/03/2024 9:58 AM EST Pt calling to requesting Wellbutrin be sent in for her to stop smoking. Pt reports she has been on this before. Pt also has tried Chantix and not able to take this. Pt offered apt in the office to discus and declined and asked to have message sent thru for refill. Please review and advise pt. Enriqueta Hoffmann LPN documented in this encounterL[facility]12-12-2024 Telephone encounter Note * Telephone Encounter - Heaven Garg PA-C - 06/03/2024 10:27 AM EST Prescription sent. Heaven Garg PA-C [facility]12-12[facility] Telephone encounter Note* Telephone Encounter - Nia Eddy LPN - 06/03/2024 10:21 AM EST Prescription Refill Information The patient has been identified by name and date of : Yes Caregiver verified no other encounters exist for this prescription request: Yes Caregiver confirmed with patient/requestor that no other refills are due, in the near future, with this provider at this time: Yes The last office visit in the department: 03/09/24 Does the patient have a future office visit with this provider/department: Yes Requested Prescriptions Pending Prescriptions Disp Refills dilTIAZem CD (CARTIA XT) 180 mg 24 hr capsule 90 capsule 1 Sig: Take 1 capsule by mouth once daily. Nia Eddy LPN June 03, 2024 10:21 AM [facility]12-12-[facility] Miscellaneous Notes* Telephone Encounter - Nia Eddy LPN - 06/03/2024 10:21 AM EST Prescription Refill Information The patient has been identified by name and date of : Yes Caregiver verified no other encounters exist for this prescription request: Yes Caregiver confirmed with patient/requestor that no other refills are due, in the near future, with this provider at this time: Yes The last office visit in the department: 03/09/24 Does the patient have a future office visit with this provider/department: Yes Requested Prescriptions Pending Prescriptions Disp Refills dilTIAZem CD (CARTIA XT) 180 mg 24 hr capsule 90 capsule 1 Sig: Take 1 capsule by mouth once daily. Nia Eddy LPN June 03, 2024 10:21 AM documented in this encounterL[facility]12-12-2024 Telephone encounter Note * Telephone Encounter - Enriqueta Hoffmann LPN - 06/03/2024 9:58 AM EST Pt calling to requesting Wellbutrin be sent in for her to stop smoking. Pt reports she has been on this before. Pt also has tried Chantix and not able to take this. Pt offered apt in the office to discus and declined and asked to have message sent thru for refill. Please review and advise pt. Enriqueta Hoffmann LPN [facility]12-04-20[facility] Telephone encounter Note* Telephone Encounter - Isaiah Wise RN - 05/26/2024 4:29 PM EST Pt returned call and given provider's message below with verbalized understanding. The only way patient knows to get the letter to pcp is to mail it to pcp via [employer]. Patient only hopes this can be taken care of before the first of the year. Patient cannot access her . Given [facility] address and advised patient to add attn: Dr. Amador. Pt agreeable. [facility]12-04-2024 Miscellaneous Notes* Telephone Encounter - Isaiah Wise RN - 05/26/2024 4:29 PM EST Pt returned call and given provider's message below with verbalized understanding. The only way patient knows to get the letter to pcp is to mail it to pcp via [employer]. Patient only hopes this can be taken care of before the first of the year. Patient cannot access her MC. Given [facility] address and advised patient to add attn: Dr. Amador. Pt agreeable. * Telephone Encounter - Uyen Witt RN - 05/26/2024 3:56 PM EST Call placed to patient with no answer. Message left for patient to return call to provider office and ask for a triage nurse for message below. Uyen Witt RN * Telephone Encounter - Magan Amador MD - 05/26/2024 1:22 PM EST Advise pt if she received a letter informing her of this from [facility] then I need a copy of it to review it before writing a letter. * Telephone Encounter - Uyen Witt RN - 05/26/2024 10:43 AM EST Patient calls to report that she needs a letter faxed to [employer] for the upcoming year to continue utilizing her benefit for OTC medications. She reports that she currently gets OTC medication and an additional $45 dollars a month for medication/supplies through [employer] but without a letter from provider stating that she has Chronic Kidney Disease, Diabetes, and HTN they aren't going to honor it for 2024. Patient requests the letter be faxed to [employer] at [phone]. Patient also requests a call back once letter is sent at [phone]. Uyen Witt RN documented [facility] Telephone encounter Note * Telephone Encounter - Uyen Witt RN - 05/26/2024 3:56 PM EST Call placed to patient with no answer. Message left for patient to return call to provider office and ask for a triage nurse for message below. Uyen Witt RN [facility]12-04-2024 Telephone encounter Note* Telephone Encounter - Magan Amador MD - 05/26/2024 1:22 PM EST Advise pt if she received a letter informing her of this from [facility] then I need a copy of it to review it before writing a letter. [facility]12-04-2024 Telephone encounter Note* Telephone Encounter - Uyen Witt RN - 05/26/2024 10:43 AM EST Patient calls to report that she needs a letter faxed to [employer] for the upcoming year to continue utilizing her benefit for OTC medications. She reports that she currently gets OTC medication and an additional $45 dollars a month for medication/supplies through [employer] but without a letter from provider stating that she has Chronic Kidney Disease, Diabetes, and HTN they aren't going to honor it for 2024. Patient requests the letter be faxed to [employer] at [phone]. Patient also requests a call back once letter is sent at [phone]. Uyen Witt RN [facility]11-21-2024 NoteHNO ID: [id number] Author: ZACH DONOVAN RN Service: ? Author Type: Registered Nurse Type: Progress Notes Filed: 05/13/2024 15:55 Note Text: CDM Telephonic Outreach Provider Action/FYI Contacted for: Routine Telephonic Outreach Contact made with patient: No, left message. Zach Donovan RN May 13, 2024 3:55 [facility]11-21-2024 History of Present illness Narrative* Zach Donovan RN - 05/13/2024 3:40 PM EST CD Telephonic Outreach Provider Action/FYI Contacted for: Routine Telephonic Outreach Contact made with patient: No, left message. Zach Donovan RN May 13, 2024 3:55 PM documented in [facility] encounterL[facility]11-[facility]24 NotePatient Outreach ([facility]) TY YU ([id number]) 1955 F NFR Date Time Provider Department 05/13/24 ZACH DONOVAN During your visit today, we recorded the following information about you: Zach Donovan RN 05/13/2024 3:55 PM Signed [facility] Telephonic Outreach Provider Action/FYI Contacted for: Routine Telephonic Outreach Contact made with patient: No, left message. Zach Donovan RN May 13, 2024 3:55 PM Allergies As of Date: 05/13/2024 Noted Allergy Reaction BEES 01/05/2014 10 - Anaphylaxis LIPITOR (ATORVASTATIN CALCIUM) 01/08/2016 17 - Myalgia PHENERGAN (PROMETHAZINE HCL) 01/25/2013 8 - GI Upset PRAVASTATIN 12/17/2017 17 - Myalgia [id number] REDUCTASE INHIBIT*12/29/2017 17 - Myalgia TRAZODONE 07/14/2018 14 - Other: See Comments Comments: Increased urine frequency Date Reviewed: 03/09/2024 Reviewed by: Tonie Turpin LPN - Fully Assessed Reason for Visit: community monitoring outreach [Other] Cmt: CDM-Telephonic outreach Prescriptions as of 06/22/2024 - dilTIAZem CD (CARTIA XT) 180 mg 24 hr capsule Take 1 capsule by mouth once daily. - buPROPion SR (WELLBUTRIN SR) 150 mg 12 hr tablet Take 1 tablet by mouth once daily for 7 days, THEN 1 tablet two times a day. - ezetimibe (ZETIA) 10 mg tablet Take 1 tablet by mouth once daily. - Magnesium Oxide 500 mg magnesium tab Take 1 tablet by mouth two times a day. - mirtazapine (REMERON) 30 mg tablet Take 1 tablet by mouth daily at bedtime. - EPINEPHrine (EPIPEN 2-ESTEFANIA) 0.3 mg/0.3 mL auto-injector Inject 0.3 mL intramuscularly as needed. - atorvastatin (LIPITOR) 80 mg tablet Take 1 tablet by mouth daily at bedtime. For cholesterol. - gabapentin (NEURONTIN) 100 mg capsule Take 100 mg by mouth. Taken prn per gastro - Fenofibrate (LOFIBRA) 54 mg tablet Take 1 tablet by mouth once daily. - pioglitazone (ACTOS) 30 mg tablet Take 1 tablet by mouth once daily. - pantoprazole DR (PROTONIX) 40 mg tablet Take 1 tablet by mouth two times a day. - sucralfate (CARAFATE) 1 gram tablet Take 1 tablet by mouth three times a day as needed. - Lancets lancets Test blood sugar(s) 1 times daily. Dx: Other DM Code E11.9, Insulin: No - scopolamine (TRANSDERM-SCOP) patch 1.5 mg/72 hr (delivers 1 mg over 3 days) Apply 1 Patch as directed every 72 hours. - cyanocobalamin (VITAMIN B-12) 500 mcg tablet Take 500 mcg by mouth twice daily. Take 2 tablets daily - mometasone (NASONEX) 50 mcg/actuation nasal spray Mometasone Furoate [Nasonex] 2 SPRAY NASAL DAILY PRN For Cold Symptons December 30, 2017 Active - nitroglycerin sublingual (NITROSTAT) 0.4 mg SL tablet Dissolve 1 tablet under the tongue every 5 minutes as needed for chest pain. - blood sugar diagnostic (BLOOD GLUCOSE TEST) test strip Test blood sugar(s) 1 times daily. Dx: E11.9 Insulin: No - memantine (NAMENDA) 5 mg tablet Take 5 mg by mouth two times a day. - cholecalciferol, vitamin D3, (VITAMIN D3 ORAL) Take by mouth once daily. - Ferrous Sulfate (SLOW FE) 142 mg (45 mg iron) TbER Take 1 tablet by mouth once daily. - aspirin, enteric coated (ADULT LOW DOSE ASPIRIN) 81 mg EC tablet Take 1 tablet by mouth once daily. Meds Comments as of 07/05/2013: Calcium/Zinc tablet Problem List As Of Date 05/13/2024 Noted Resolved Hip arthritis [M16.10] 04/01/2013 Essential hypertension [I10] Mixed hyperlipidemia [E78.2] RLS (restless legs syndrome) [G25.81] SUMMARY [V999.95] 05/04/2013 07/28/2017 Anxiety [F41.9] 07/05/2013 07/19/2019 Diverticulosis [K57.90] 11/16/2013 Fibromyalgia [M79.7] 11/17/2013 Ex-smoker [Z87.891] 10/19/2014 Right hip pain [M25.551] 11/07/2014 07/19/2019 Lumbar degenerative disc disease [M51.369] 12/28/2015 Gastroesophageal reflux disease without esophag*01/08/2016 Insomnia [G47.00] 01/08/2016 Multiple falls [R29.6] 01/08/2016 07/28/2017 Migraine without aura and without status migrai*07/09/2016 Coronary artery disease involving torres martinez alarcon*07/09/2016 Osteoarthritis of multiple joints [M15.9] 09/06/2016 Well adult exam [Z00.00] 06/26/2017 07/19/2019 Encounter for screening for diabetes mellitus [*06/26/2017 07/28/2017 Hiatal hernia [K44.9] 07/28/2017 Type 2 diabetes mellitus without complication, *12/17/2017 Encounter for screening mammogram for breast ca*12/29/2017 07/19/2019 Current moderate episode of major depressive di*07/14/2018 Colon cancer screening [Z12.11] 07/14/2018 07/19/2019 History of shingles [Z86.19] 06/23/2004 Iron deficiency anemia [D50.9] 07/04/2019 Medication management [Z79.899] 06/01/2020 Abnormal thyroid blood test [R79.89] 06/01/2020 Foot callus [L84] 06/01/2020 Age-related osteoporosis without current pathol*06/01/[address] (HCC) [Z93.3] 06/01/2020 Stage 3b chronic kidney disease (HCC) [N18.32] 06/02/2020 Dementia with behavioral disturbance (HCC) [F03*07/21/2020 Encounter for M (more content not included)...[facility] 05-12-2024 NoteHNO ID: [id number] Author: ZACH DONOVAN RN Service: ? Author Type: Registered Nurse Type: Progress Notes Filed: 05/12/2024 16:28 Note Text: CD Telephonic Outreach Provider Action/FYI Contacted for: Routine Telephonic Outreach Contact made with patient: No, left message. Zach Donovan RN May 12, 2024 4:28 [facility]11-20-2024 History of Present illness Narrative* Zach Donovan RN - 05/12/2024 4:24 PM EST CDM Telephonic Outreach Provider Action/FYI Contacted for: Routine Telephonic Outreach Contact made with patient: No, left message. Zach Donovan RN May 12, 2024 4:28 PM documented in this encounterL[facility]11-20-2024 NotePatient Outreach ([facility]) TY YU ([id number]) 1955 F NFR Date Time Provider Department 05/12/24 ZACH DONOVAN During your visit today, we recorded the following information about you: Zach Donovan RN 05/12/2024 4:28 PM Signed CD Telephonic Outreach Provider Action/FYI Contacted for: Routine Telephonic Outreach Contact made with patient: No, left message. Zach Donovan RN May 12, 2024 4:28 PM Allergies As of Date: 05/12/2024 Noted Allergy Reaction BEES 01/05/2014 10 - Anaphylaxis LIPITOR (ATORVASTATIN CALCIUM) 01/08/2016 17 - Myalgia PHENERGAN (PROMETHAZINE HCL) 01/25/2013 8 - GI Upset PRAVASTATIN 12/17/2017 17 - Myalgia [id number] REDUCTASE INHIBIT*12/29/2017 17 - Myalgia TRAZODONE 07/14/2018 14 - Other: See Comments Comments: Increased urine frequency Date Reviewed: 03/09/2024 Reviewed by: Tonie Turpin LPN - Fully Assessed Reason for Visit: community monitoring outreach [Other] Cmt: CDM-Telephonic outreach Prescriptions as of 05/12/2024 - ezetimibe (ZETIA) 10 mg tablet Take 1 tablet by mouth once daily. - Magnesium Oxide 500 mg magnesium tab Take 1 tablet by mouth two times a day. - mirtazapine (REMERON) 30 mg tablet Take 1 tablet by mouth daily at bedtime. - EPINEPHrine (EPIPEN 2-ESTEFANIA) 0.3 mg/0.3 mL auto-injector Inject 0.3 mL intramuscularly as needed. - atorvastatin (LIPITOR) 80 mg tablet Take 1 tablet by mouth daily at bedtime. For cholesterol. - gabapentin (NEURONTIN) 100 mg capsule Take 100 mg by mouth. Taken prn per gastro - Fenofibrate (LOFIBRA) 54 mg tablet Take 1 tablet by mouth once daily. - pioglitazone (ACTOS) 30 mg tablet Take 1 tablet by mouth once daily. - varenicline (CHANTIX CONTINUING MONTH BOX) 1 mg tablet Take 1 tablet by mouth two times a day with meals. - dilTIAZem CD (CARTIA XT) 180 mg 24 hr capsule Take 1 capsule by mouth once daily. - pantoprazole DR (PROTONIX) 40 mg tablet Take 1 tablet by mouth two times a day. - sucralfate (CARAFATE) 1 gram tablet Take 1 tablet by mouth three times a day as needed. - Lancets lancets Test blood sugar(s) 1 times daily. Dx: Other DM Code E11.9, Insulin: No - varenicline (CHANTIX) 0.5 mg (11)- 1 mg (42) tablet Take 0.5 mg by mouth once daily on Days 1 through 3, THEN 0.5 mg twice daily on Days 4 through 7, THEN 1 mg twice daily on Day 8 and thereafter - scopolamine (TRANSDERM-SCOP) patch 1.5 mg/72 hr (delivers 1 mg over 3 days) Apply 1 Patch as directed every 72 hours. - cyanocobalamin (VITAMIN B-12) 500 mcg tablet Take 500 mcg by mouth twice daily. Take 2 tablets daily - mometasone (NASONEX) 50 mcg/actuation nasal spray Mometasone Furoate [Nasonex] 2 SPRAY NASAL DAILY PRN For Cold Symptons December 30, 2017 Active - nitroglycerin sublingual (NITROSTAT) 0.4 mg SL tablet Dissolve 1 tablet under the tongue every 5 minutes as needed for chest pain. - blood sugar diagnostic (BLOOD GLUCOSE TEST) test strip Test blood sugar(s) 1 times daily. Dx: E11.9 Insulin: No - memantine (NAMENDA) 5 mg tablet Take 5 mg by mouth two times a day. - cholecalciferol, vitamin D3, (VITAMIN D3 ORAL) Take by mouth once daily. - Ferrous Sulfate (SLOW FE) 142 mg (45 mg iron) TbER Take 1 tablet by mouth once daily. - aspirin, enteric coated (ADULT LOW DOSE ASPIRIN) 81 mg EC tablet Take 1 tablet by mouth once daily. Meds Comments as of 07/05/2013: Calcium/Zinc tablet Problem List As Of Date 05/12/2024 Noted Resolved Hip arthritis [M16.10] 04/01/2013 Essential hypertension [I10] Mixed hyperlipidemia [E78.2] RLS (restless legs syndrome) [G25.81] SUMMARY [V999.95] 05/04/2013 07/28/2017 Anxiety [F41.9] 07/05/2013 07/19/2019 Diverticulosis [K57.90] 11/16/2013 Fibromyalgia [M79.7] 11/17/2013 Ex-smoker [Z87.891] 10/19/2014 Right hip pain [M25.551] 11/07/2014 07/19/2019 Lumbar degenerative disc disease [M51.369] 12/28/2015 Gastroesophageal reflux disease without esophag*01/08/2016 Insomnia [G47.00] 01/08/2016 Multiple falls [R29.6] 01/08/2016 07/28/2017 Migraine without aura and without status migrai*07/09/2016 Coronary artery disease involving torres martinez alarcon*07/09/2016 Osteoarthritis of multiple joints [M15.9] 09/06/2016 Well adult exam [Z00.00] 06/26/2017 07/19/2019 Encounter for screening for diabetes mellitus [*06/26/2017 07/28/2017 Hiatal hernia [K44.9] 07/28/2017 Type 2 diabetes mellitus without complication, *12/17/2017 Encounter for screening mammogram for breast ca*12/29/2017 07/19/2019 Current moderate episode of major depressive di*07/14/2018 Colon cancer screening [Z12.11] 07/14/2018 07/19/2019 History of shingles [Z86.19] 06/23/2004 Iron deficiency anemia [D50.9] 07/04/2019 Medication management [Z79.899] 06/01/2020 Abnormal thyroid blood test [R79.89] 06/01/2020 Foot callus [L84] 06/01/2020 Age-related osteoporosis without current pathol*06/01/2020 (more content not included)...[facility]11-18-2024 Telephone encounter Note* Telephone Encounter - Magan Amador MD - 05/10/2024 9:17 AM EST The following approved medication requests have been transmitted electronically. Requested Prescriptions Signed Prescriptions Disp Refills ezetimibe (ZETIA) 10 mg tablet 90 tablet 1 Sig: Take 1 tablet by mouth once daily. Authorizing Provider: MAGAN AMADOR MD [facility]11-18-2024 Miscellaneous Notes* Telephone Encounter - Magan Amador MD - 05/10/2024 9:17 AM EST The following approved medication requests have been transmitted electronically. Requested Prescriptions Signed Prescriptions Disp Refills ezetimibe (ZETIA) 10 mg tablet 90 tablet 1 Sig: Take 1 tablet by mouth once daily. Authorizing Provider: MAGAN AMADOR MD * Telephone Encounter - Regine Morgan LPN - 05/10/2024 8:28 AM EST Prescription Refill Information The patient has been identified by name and date of : Yes Caregiver verified no other encounters exist for this prescription request: Yes Caregiver confirmed with patient/requestor that no other refills are due, in the near future, with this provider at this time: Yes The last office visit in the department: 03/09/24 Does the patient have a future office visit with this provider/department: Yes Requested Prescriptions Pending Prescriptions Disp Refills ezetimibe (ZETIA) 10 mg tablet 90 tablet 1 Sig: Take 1 tablet by mouth once daily. Regine Morgan LPN May 10, 2024 8:29 AM documented in this encounterL[facility]11-18-2024 Telephone encounter Note * Telephone Encounter - Regine Morgan LPN - 05/10/2024 8:28 AM EST Prescription Refill Information The patient has been identified by name and date of : Yes Caregiver verified no other encounters exist for this prescription request: Yes Caregiver confirmed with patient/requestor that no other refills are due, in the near future, with this provider at this time: Yes The last office visit in the department: 03/09/24 Does the patient have a future office visit with this provider/department: Yes Requested Prescriptions Pending Prescriptions Disp Refills ezetimibe (ZETIA) 10 mg tablet 90 tablet 1 Sig: Take 1 tablet by mouth once daily. Regine Morgan LPN May 10, 2024 8:29 AM [facility]11-04-2024 Telephone encounter Note* Telephone Encounter - Joelle Pruett RN - 04/26/2024 3:54 PM EST Pt called and is notified of providers results and instructions. Pt voices understanding. Let her know that provider had already sent in refill she was trying to fill off of an old bottle. I let her know she would need to call in and let them know she had a refill on hold. Joelle Pruett RN [facility]11-04-2024 Miscellaneous Notes* Telephone Encounter - Joelle Pruett RN - 04/26/2024 3:54 PM EST Pt called and is notified of providers results and instructions. Pt voices understanding. Let her know that provider had already sent in refill she was trying to fill off of an old bottle. I let her know she would need to call in and let them know she had a refill on hold. Joelle Pruett RN * Telephone Encounter - Magan Amador MD - 04/26/2024 3:22 PM EST Let patient know that if she has been off the mirtazapine for several weeks then there is no concern about stopping it abruptly because it was completely out of her system in 10-14 days. Also I have no documentation that there has been an issue with the current dose being at 30 mg QHS so to change it just to get it covered would be insurance fraud on I'm not doing that. I can send in a new script for the 30 mg dose but she will probably have to pay out of pocket for it. It may be less expensive if she uses [facility] for a discounted rate. * Telephone Encounter - Rosemary Mcnair RN - 04/26/2024 2:12 PM EST Patient requested refill of her mirtazapine 30 mg last week. Reports she was taking 2 tabs daily and not 1 tab as ordered, causing her to run out too soon. Patient was then advised by Dr Amador, as copied: Magan Amador MD 04/19/24 9:35 PM Note Please let patient know she has never been prescribed mirtazapine 30 mg take two before bed. She has been on only one before bed since her dose was increased to 30 mg since 01/02/2022. Also the maximum dose is only 45 mg in a day. Her last script was on 03/09/2024. She will not be able to refill it until 06/07/2024 or possibly a few days earlier. Patient states she read that it was not good to stop mirtazapine immediately and she has been out of it for a couple weeks and is concerned. Voices understanding that she was not taking the medication as prescribed, which caused her to run out early. Patent asking if Dr. Amador would consider changing her mirtazapine to 45 mg daily at bedtime and sending script for this to [facility] in [place], [place]. Please call patient with reply. Thank you. documented in this encounterL[facility]11-04-2024 Telephone encounter Note * Telephone Encounter - Magan Amador MD - 04/26/2024 3:22 PM EST Let patient know that if she has been off the mirtazapine for several weeks then there is no concern about stopping it abruptly because it was completely out of her system in 10-14 days. Also I have no documentation that there has been an issue with the current dose being at 30 mg QHS so to change it just to get it covered would be insurance fraud on I'm not doing that. I can send in a new script for the 30 mg dose but she will probably have to pay out of pocket for it. It may be less expensive if she uses [facility] for a discounted rate. [facility]11-04-2024 Telephone encounter Note* Telephone Encounter - Rosemary Mcnair RN - 04/26/2024 2:12 PM EST Patient requested refill of her mirtazapine 30 mg last week. Reports she was taking 2 tabs daily and not 1 tab as ordered, causing her to run out too soon. Patient was then advised by Dr Amador, as copied: Magan Amador MD 04/19/24 9:35 PM Note Please let patient know she has never been prescribed mirtazapine 30 mg take two before bed. She has been on only one before bed since her dose was increased to 30 mg since 01/02/2022. Also the maximum dose is only 45 mg in a day. Her last script was on 03/09/2024. She will not be able to refill it until 06/07/2024 or possibly a few days earlier. Patient states she read that it was not good to stop mirtazapine immediately and she has been out of it for a couple weeks and is concerned. Voices understanding that she was not taking the medication as prescribed, which caused her to run out early. Patent asking if Dr. Amador would consider changing her mirtazapine to 45 mg daily at bedtime and sending script for this to [facility] in [place], [place]. Please call patient with reply. Thank you. [facility]10-29-2024 Telephone encounter Note* Telephone Encounter - Carola Trevino LPN - 04/20/2024 8:47 AM EDT Pt notified of 's message. Carola Trevino LPN [facility]10-29-2024 Miscellaneous Notes* Telephone Encounter - Carola Trevino LPN - 04/20/2024 8:47 AM EDT Pt notified of 's message. Carola Trevino LPN * Telephone Encounter - Enriqueta Hoffmann LPN - 04/20/2024 8:01 AM EDT Left a message for pt to call the office and ask to speak to a nurse. Enriqueta Hoffmann LPN * Telephone Encounter - Magan Amador MD - 04/19/2024 9:25 PM EDT Please let patient know she has never been prescribed mirtazapine 30 mg take two before bed. She has been on only one before bed since her dose was increased to 30 mg since 01/02/2022. Also the maximum dose is only 45 mg in a day. Her last script was on 03/09/2024. She will not be able to refill it until 06/07/2024 or possibly a few days earlier. * Telephone Encounter - Maria Isabel Grossman - 04/19/2024 2:16 PM EDT Patient is out of her medication. She states she takes 2 at bedtime, not 1 and has for a while. Please update instructions and quantity as appropriate and contact patient when handled. * Telephone Encounter - Maria Isabel Grossman - 04/19/2024 2:15 PM EDT Prescription Refill Information The patient has been identified by name and date of : Yes Caregiver verified no other encounters exist for this prescription request: Yes Caregiver confirmed with patient/requestor that no other refills are due, in the near future, with this provider at this time: Yes The last office visit in the department: 03-09-24 Does the patient have a future office visit with this provider/department: Yes Requested Prescriptions Pending Prescriptions Disp Refills mirtazapine (REMERON) 30 mg tablet Sig: Take 1 tablet by mouth daily at bedtime. Maria Isabel Wilson April 19, 2024 2:16 PM documented in this encounterL[facility]10-29-2024 Telephone encounter Note * Telephone Encounter - Enriqueta Hoffmann LPN - 04/20/2024 8:01 AM EDT Left a message for pt to call the office and ask to speak to a nurse. Enriqueta Hoffmann LPN [facility]10-28-2024 Telephone encounter Note* Telephone Encounter - Magan Amador MD - 04/19/2024 9:25 PM EDT Please let patient know she has never been prescribed mirtazapine 30 mg take two before bed. She has been on only one before bed since her dose was increased to 30 mg since 01/02/2022. Also the maximum dose is only 45 mg in a day. Her last script was on 03/09/2024. She will not be able to refill it until 06/07/2024 or possibly a few days earlier. [facility]10-28-2024 Telephone encounter Note* Telephone Encounter - Maria Isabel Grossman - 04/19/2024 2:16 PM EDT Patient is out of her medication. She states she takes 2 at bedtime, not 1 and has for a while. Please update instructions and quantity as appropriate and contact patient when handled. T [facility] Work Phone: [phone] Telephone encounter Note* Telephone Encounter - Joshua Wilson Maria Isabel M - 04/19/2024 2:15 PM EDT Prescription Refill Information The patient has been identified by name and date of : Yes Caregiver verified no other encounters exist for this prescription request: Yes Caregiver confirmed with patient/requestor that no other refills are due, in the near future, with this provider at this time: Yes The last office visit in the department: 03-09-24 Does the patient have a future office visit with this provider/department: Yes Requested Prescriptions Pending Prescriptions Disp Refills mirtazapine (REMERON) 30 mg tablet Sig: Take 1 tablet by mouth daily at bedtime. Maria Isabel Wilson April 19, 2024 2:16 PM [facility]10-23-2024 NoteHNO ID: [id number] Author: ZACH DONOVAN RN Service: ? Author Type: Registered Nurse Type: Progress Notes Filed: 04/14/2024 11:26 Note Text: [facility] Telephonic Outreach Provider Action/FYI Contacted for: Routine Telephonic Outreach Contact made with patient: Yes Patient identified by name and date of . Discussed care with patient Are you experiencing any new or worsening symptoms you need to talk about today? No Based on signal fitter, the following disposition is advised: No symptoms or symptoms present, not severe. Routed to: No Action Needed ROYAL Education Provided this Outreach: No Patient continues to struggle with back pain Injections provide some relief but its temporary Patient states she does the exercises advised by PT-don't provide relief Patient does not want surgery at this point Listened with HEART Encouraged follow up with pain management Zach Donovan RN April 14, 2024 11:15 [facility]10-23-2024 History of Present illness Narrative* Zach Donovan RN - 04/14/2024 11:12 AM EDT [facility] Telephonic Outreach Provider Action/FYI Contacted for: Routine Telephonic Outreach Contact made with patient: Yes Patient identified by name and date of . Discussed care with patient Are you experiencing any new or worsening symptoms you need to talk about today? No Based on signal fitter, the following disposition is advised: No symptoms or symptoms present, not severe. Routed to: No Action Needed ROYAL Education Provided this Outreach: No Patient continues to struggle with back pain Injections provide some relief but its temporary Patient states she does the exercises advised by PT-don't provide relief Patient does not want surgery at this point Listened with HEART Encouraged follow up with pain management Zach Donovan RN April 14, 2024 11:15 AM [facility] NotePatient Outreach ([facility]) TY YU ([id number]) 1955 F NFR Date Time Provider Department 04/14/24 ZACH DONOVAN [facility] During your visit today, we recorded the following information about you: Zach Donovan, RN 04/14/2024 11:26 AM Signed CD Telephonic Outreach Provider Action/FYI Contacted for: Routine Telephonic Outreach Contact made with patient: Yes Patient identified by name and date of . Discussed care with patient Are you experiencing any new or worsening symptoms you need to talk about today? No Based on signal fitter, the following disposition is advised: No symptoms or symptoms present, not severe. Routed to: No Action Needed ROYAL Education Provided this Outreach: No Patient continues to struggle with back pain Injections provide some relief but its temporary Patient states she does the exercises advised by PT-don't provide relief Patient does not want surgery at this point Listened with HEART Encouraged follow up with pain management Zach Donovan RN April 14, 2024 11:15 AM Allergies As of Date: 04/14/2024 Noted Allergy Reaction BEES 01/05/2014 10 - Anaphylaxis LIPITOR (ATORVASTATIN CALCIUM) 01/08/2016 17 - Myalgia PHENERGAN (PROMETHAZINE HCL) 01/25/2013 8 - GI Upset PRAVASTATIN 12/17/2017 17 - Myalgia [id number] REDUCTASE INHIBIT*12/29/2017 17 - Myalgia TRAZODONE 07/14/2018 14 - Other: See Comments Comments: Increased urine frequency Date Reviewed: 03/09/2024 Reviewed by: Tonie Turpin LPN - Fully Assessed Reason for Visit: community monitoring outreach [Other] Cmt: CDM-Telephonic outreach Prescriptions as of 04/14/2024 - Magnesium Oxide 500 mg magnesium tab Take 1 tablet by mouth two times a day. - mirtazapine (REMERON) 30 mg tablet Take 1 tablet by mouth daily at bedtime. - EPINEPHrine (EPIPEN 2-ESTEFANIA) 0.3 mg/0.3 mL auto-injector Inject 0.3 mL intramuscularly as needed. - atorvastatin (LIPITOR) 80 mg tablet Take 1 tablet by mouth daily at bedtime. For cholesterol. - gabapentin (NEURONTIN) 100 mg capsule Take 100 mg by mouth. Taken prn per gastro - Fenofibrate (LOFIBRA) 54 mg tablet Take 1 tablet by mouth once daily. - pioglitazone (ACTOS) 30 mg tablet Take 1 tablet by mouth once daily. - varenicline (CHANTIX CONTINUING MONTH BOX) 1 mg tablet Take 1 tablet by mouth two times a day with meals. - ezetimibe (ZETIA) 10 mg tablet take 1 tablet by mouth daily - dilTIAZem CD (CARTIA XT) 180 mg 24 hr capsule Take 1 capsule by mouth once daily. - pantoprazole DR (PROTONIX) 40 mg tablet Take 1 tablet by mouth two times a day. - sucralfate (CARAFATE) 1 gram tablet Take 1 tablet by mouth three times a day as needed. - Lancets lancets Test blood sugar(s) 1 times daily. Dx: Other DM Code E11.9, Insulin: No - varenicline (CHANTIX) 0.5 mg (11)- 1 mg (42) tablet Take 0.5 mg by mouth once daily on Days 1 through 3, THEN 0.5 mg twice daily on Days 4 through 7, THEN 1 mg twice daily on Day 8 and thereafter - scopolamine (TRANSDERM-SCOP) patch 1.5 mg/72 hr (delivers 1 mg over 3 days) Apply 1 Patch as directed every 72 hours. - cyanocobalamin (VITAMIN B-12) 500 mcg tablet Take 500 mcg by mouth twice daily. Take 2 tablets daily - mometasone (NASONEX) 50 mcg/actuation nasal spray Mometasone Furoate [Nasonex] 2 SPRAY NASAL DAILY PRN For Cold Symptons December 30, 2017 Active - nitroglycerin sublingual (NITROSTAT) 0.4 mg SL tablet Dissolve 1 tablet under the tongue every 5 minutes as needed for chest pain. - blood sugar diagnostic (BLOOD GLUCOSE TEST) test strip Test blood sugar(s) 1 times daily. Dx: E11.9 Insulin: No - memantine (NAMENDA) 5 mg tablet Take 5 mg by mouth two times a day. - cholecalciferol, vitamin D3, (VITAMIN D3 ORAL) Take by mouth once daily. - Ferrous Sulfate (SLOW FE) 142 mg (45 mg iron) TbER Take 1 tablet by mouth once daily. - aspirin, enteric coated (ADULT LOW DOSE ASPIRIN) 81 mg EC tablet Take 1 tablet by mouth once daily. Meds Comments as of 07/05/2013: Calcium/Zinc tablet Problem List As Of Date 04/14/2024 Noted Resolved Hip arthritis [M16.10] 04/01/2013 Essential hypertension [I10] Mixed hyperlipidemia [E78.2] RLS (restless legs syndrome) [G25.81] SUMMARY [V999.95] 05/04/2013 07/28/2017 Anxiety [F41.9] 07/05/2013 07/19/2019 Diverticulosis [K57.90] 11/16/2013 Fibromyalgia [M79.7] 11/17/2013 Ex-smoker [Z87.891] 10/19/2014 Right hip pain [M25.551] 11/07/2014 07/19/2019 Lumbar degenerative disc disease [M51.369] 12/28/2015 Gastroesophageal reflux disease without esophag*01/08/2016 Insomnia [G47.00] 01/08/2016 Multiple falls [R29.6] 01/08/2016 07/28/2017 Migraine without aura and without status migrai*07/09/2016 Coronary artery disease involving torres martinez alarcon*07/09/2016 Osteoarthritis of multiple joints [M15.9] 09/06/2016 Well adult exam [Z00.00] 06/26/2017 07/19/2019 Encounter f (more content not included)...[facility]10-22-2024 NoteHNO ID: [id number] Author: ZACH DONOVAN RN Service: ? Author Type: Registered Nurse Type: Progress Notes Filed: 04/13/2024 16:17 Note Text: CDM Telephonic Outreach Provider Action/FYI Contacted for: Routine Telephonic Outreach Contact made with patient: No, left message. Zach Donovan RN April 13, 2024 4:17 [facility]10-22-2024 History of Present illness Narrative* Zach Donovan RN - 04/13/2024 4:15 PM EDT [facility] Telephonic Outreach Provider Action/FYI Contacted for: Routine Telephonic Outreach Contact made with patient: No, left message. Zach Donovan RN April 13, 2024 4:17 PM documented in this encounter[facility]10-[facility]24 NotePatient Outreach ([facility]) TY YU ([id number]) 1955 F NFR Date Time Provider Department 04/13/24 ZACH DONOVAN During your visit today, we recorded the following information about you: Zach Donovan RN 04/13/2024 4:17 PM Signed [facility] Telephonic Outreach Provider Action/FYI Contacted for: Routine Telephonic Outreach Contact made with patient: No, left message. Zach Donovan RN April 13, 2024 4:17 PM Allergies As of Date: 04/13/2024 Noted Allergy Reaction BEES 01/05/2014 10 - Anaphylaxis LIPITOR (ATORVASTATIN CALCIUM) 01/08/2016 17 - Myalgia PHENERGAN (PROMETHAZINE HCL) 01/25/2013 8 - GI Upset PRAVASTATIN 12/17/2017 17 - Myalgia [id number] REDUCTASE INHIBIT*12/29/2017 17 - Myalgia TRAZODONE 07/14/2018 14 - Other: See Comments Comments: Increased urine frequency Date Reviewed: 03/09/2024 Reviewed by: Tonie Turpin LPN - Fully Assessed Reason for Visit: community monitoring outreach [Other] Cmt: CDM-Telephonic outreach Prescriptions as of 04/13/2024 - Magnesium Oxide 500 mg magnesium tab Take 1 tablet by mouth two times a day. - mirtazapine (REMERON) 30 mg tablet Take 1 tablet by mouth daily at bedtime. - EPINEPHrine (EPIPEN 2-ESTEFANIA) 0.3 mg/0.3 mL auto-injector Inject 0.3 mL intramuscularly as needed. - atorvastatin (LIPITOR) 80 mg tablet Take 1 tablet by mouth daily at bedtime. For cholesterol. - gabapentin (NEURONTIN) 100 mg capsule Take 100 mg by mouth. Taken prn per gastro - Fenofibrate (LOFIBRA) 54 mg tablet Take 1 tablet by mouth once daily. - pioglitazone (ACTOS) 30 mg tablet Take 1 tablet by mouth once daily. - varenicline (CHANTIX CONTINUING MONTH BOX) 1 mg tablet Take 1 tablet by mouth two times a day with meals. - ezetimibe (ZETIA) 10 mg tablet take 1 tablet by mouth daily - dilTIAZem CD (CARTIA XT) 180 mg 24 hr capsule Take 1 capsule by mouth once daily. - pantoprazole DR (PROTONIX) 40 mg tablet Take 1 tablet by mouth two times a day. - sucralfate (CARAFATE) 1 gram tablet Take 1 tablet by mouth three times a day as needed. - Lancets lancets Test blood sugar(s) 1 times daily. Dx: Other DM Code E11.9, Insulin: No - varenicline (CHANTIX) 0.5 mg (11)- 1 mg (42) tablet Take 0.5 mg by mouth once daily on Days 1 through 3, THEN 0.5 mg twice daily on Days 4 through 7, THEN 1 mg twice daily on Day 8 and thereafter - scopolamine (TRANSDERM-SCOP) patch 1.5 mg/72 hr (delivers 1 mg over 3 days) Apply 1 Patch as directed every 72 hours. - cyanocobalamin (VITAMIN B-12) 500 mcg tablet Take 500 mcg by mouth twice daily. Take 2 tablets daily - mometasone (NASONEX) 50 mcg/actuation nasal spray Mometasone Furoate [Nasonex] 2 SPRAY NASAL DAILY PRN For Cold Symptons December 30, 2017 Active - nitroglycerin sublingual (NITROSTAT) 0.4 mg SL tablet Dissolve 1 tablet under the tongue every 5 minutes as needed for chest pain. - blood sugar diagnostic (BLOOD GLUCOSE TEST) test strip Test blood sugar(s) 1 times daily. Dx: E11.9 Insulin: No - memantine (NAMENDA) 5 mg tablet Take 5 mg by mouth two times a day. - cholecalciferol, vitamin D3, (VITAMIN D3 ORAL) Take by mouth once daily. - Ferrous Sulfate (SLOW FE) 142 mg (45 mg iron) TbER Take 1 tablet by mouth once daily. - aspirin, enteric coated (ADULT LOW DOSE ASPIRIN) 81 mg EC tablet Take 1 tablet by mouth once daily. Meds Comments as of 07/05/2013: Calcium/Zinc tablet Problem List As Of Date 04/13/2024 Noted Resolved Hip arthritis [M16.10] 04/01/2013 Essential hypertension [I10] Mixed hyperlipidemia [E78.2] RLS (restless legs syndrome) [G25.81] SUMMARY [V999.95] 05/04/2013 07/28/2017 Anxiety [F41.9] 07/05/2013 07/19/2019 Diverticulosis [K57.90] 11/16/2013 Fibromyalgia [M79.7] 11/17/2013 Ex-smoker [Z87.891] 10/19/2014 Right hip pain [M25.551] 11/07/2014 07/19/2019 Lumbar degenerative disc disease [M51.369] 12/28/2015 Gastroesophageal reflux disease without esophag*01/08/2016 Insomnia [G47.00] 01/08/2016 Multiple falls [R29.6] 01/08/2016 07/28/2017 Migraine without aura and without status migrai*07/09/2016 Coronary artery disease involving torres martinez alarcon*07/09/2016 Osteoarthritis of multiple joints [M15.9] 09/06/2016 Well adult exam [Z00.00] 06/26/2017 07/19/2019 Encounter for screening for diabetes mellitus [*06/26/2017 07/28/2017 Hiatal hernia [K44.9] 07/28/2017 Type 2 diabetes mellitus without complication, *12/17/2017 Encounter for screening mammogram for breast ca*12/29/2017 07/19/2019 Current moderate episode of major depressive di*07/14/2018 Colon cancer screening [Z12.11] 07/14/2018 07/19/2019 History of shingles [Z86.19] 06/23/2004 Iron deficiency anemia [D50.9] 07/04/2019 Medication management [Z79.899] 06/01/2020 Abnormal thyroid blood test [R79.89] 06/01/2020 Foot callus [L84] 06/01/2020 Age-related osteoporosis without current pathol*06/01/2020 Colos (more content not included)...[facility]09-19-2024 NoteHNO ID: [id number] Author: ZACH DONOVAN RN Service: ? Author Type: Registered Nurse Type: Progress Notes Filed: 03/11/2024 14:14 Note Text: [facility] Telephonic Outreach Provider Action/FYI Contacted for: Routine Telephonic Outreach Contact made with patient: Yes Patient identified by name and date of . Discussed care with patient Are you experiencing any new or worsening symptoms you need to talk about today? No Based on signal fitter, the following disposition is advised: No symptoms or symptoms present, not severe. Routed to: No Action Needed ROYAL Education Provided this Outreach: No Recent visit with PCP- Concern magnesium might be low despite taking supplement Plans to get blood work completed when she returns from vacation-leaving tomorrow for 1 wk Zach Donovan RN March 11, 2024 2:12 [facility]09-19-2024 History of Present illness Narrative* Zach Donovan RN - 03/11/2024 2:05 PM EDT [facility] Telephonic Outreach Provider Action/FYI Contacted for: Routine Telephonic Outreach Contact made with patient: Yes Patient identified by name and date of . Discussed care with patient Are you experiencing any new or worsening symptoms you need to talk about today? No Based on signal fitter, the following disposition is advised: No symptoms or symptoms present, not severe. Routed to: No Action Needed ROYAL Education Provided this Outreach: No Recent visit with PCP- Concern magnesium might be low despite taking supplement Plans to get blood work completed when she returns from vacation-leaving tomorrow for 1 wk Zach Donovan RN March 11, 2024 2:12 PM documented in [facility] Telephone encounter Note * Telephone Encounter - Tonie Turpin LPN - 03/11/2024 9:45 AM EDT Pt notified of Heaven's instructions. Pt verbalizes understanding. Tonie Turpin LPN [facility]09-19-2024 Miscellaneous Notes* Telephone Encounter - Tonie Turpin LPN - 03/11/2024 9:45 AM EDT Pt notified of Heaven's instructions. Pt verbalizes understanding. Tonie Turpin LPN * Telephone Encounter - Heaven Garg PA-C - 03/11/2024 9:28 AM EDT Have her increase magnesium to twice a day. * Telephone Encounter - Isaiah Wise, RN - 03/10/2024 2:32 PM EDT Pt returned call and given provider's message below with verbalized understanding. Patient agreeable. Patient reports she takes magnesium 500 mg daily OTC. Please advise on this. * Telephone Encounter - Tonie Turpin LPN - 03/10/2024 1:44 PM EDT Left message for pt to contact office. Tonie Turpin LPN * Telephone Encounter - Heaven Garg PA-C - 03/10/2024 12:34 PM EDT Let patient know that labs show: Magnesium is still slightly low. She gets this OTC. What dose does she take daily? Kidney function is stable compared to our last labs. Continue with specialist. Iron levels are okay. She is slightly anemic though. This has improved since last labs. I'm ordering 2 additional labs tomake sure no other potential causes. Thyroid is normal Cholesterol is normal. A1c at 6.5% which is stable Heaven Beckett documented in [facility]09-[facility]-2024 Telephone encounter Note * Telephone Encounter - Heaven Garg PA-C - 03/11/2024 9:28 AM EDT Have her increase magnesium to twice a day. [facility]09-19-2024 NotePatient Outreach ([facility] [place] TY YU ([id number]) 1955 F NFR Date Time Provider Department 03/11/24 [facility] During your visit today, we recorded the following information about you: Zach Donovan RN 03/11/2024 2:14 PM Signed CDM Telephonic Outreach Provider Action/FYI Contacted for: Routine Telephonic Outreach Contact made with patient: Yes Patient identified by name and date of . Discussed care with patient Are you experiencing any new or worsening symptoms you need to talk about today? No Based on signal fitter, the following disposition is advised: No symptoms or symptoms present, not severe. Routed to: No Action Needed ROYAL Education Provided this Outreach: No Recent visit with PCP- Concern magnesium might be low despite taking supplement Plans to get blood work completed when she returns from vacation-leaving tomorrow for 1 wk Zach Donovan RN March 11, 2024 2:12 PM Allergies As of Date: 03/11/2024 Noted Allergy Reaction BEES 01/05/2014 10 - Anaphylaxis LIPITOR (ATORVASTATIN CALCIUM) 01/08/2016 17 - Myalgia PHENERGAN (PROMETHAZINE HCL) 01/25/2013 8 - GI Upset PRAVASTATIN 12/17/2017 17 - Myalgia [id number] REDUCTASE INHIBIT*12/29/2017 17 - Myalgia TRAZODONE 07/14/2018 14 - Other: See Comments Comments: Increased urine frequency Date Reviewed: 03/09/2024 Reviewed by: Tonie Turpin LPN - Fully Assessed Reason for Visit: community monitoring outreach [Other] Cmt: CDM-Telephonic outreach Prescriptions as of 03/11/2024 - Magnesium Oxide 500 mg magnesium tab Take 1 tablet by mouth two times a day. - mirtazapine (REMERON) 30 mg tablet Take 1 tablet by mouth daily at bedtime. - EPINEPHrine (EPIPEN 2-ESTEFANIA) 0.3 mg/0.3 mL auto-injector Inject 0.3 mL intramuscularly as needed. - atorvastatin (LIPITOR) 80 mg tablet Take 1 tablet by mouth daily at bedtime. For cholesterol. - gabapentin (NEURONTIN) 100 mg capsule Take 100 mg by mouth. Taken prn per gastro - Fenofibrate (LOFIBRA) 54 mg tablet Take 1 tablet by mouth once daily. - pioglitazone (ACTOS) 30 mg tablet Take 1 tablet by mouth once daily. - varenicline (CHANTIX CONTINUING MONTH BOX) 1 mg tablet Take 1 tablet by mouth two times a day with meals. - ezetimibe (ZETIA) 10 mg tablet take 1 tablet by mouth daily - dilTIAZem CD (CARTIA XT) 180 mg 24 hr capsule Take 1 capsule by mouth once daily. - pantoprazole DR (PROTONIX) 40 mg tablet Take 1 tablet by mouth two times a day. - sucralfate (CARAFATE) 1 gram tablet Take 1 tablet by mouth three times a day as needed. - Lancets lancets Test blood sugar(s) 1 times daily. Dx: Other DM Code E11.9, Insulin: No - varenicline (CHANTIX) 0.5 mg (11)- 1 mg (42) tablet Take 0.5 mg by mouth once daily on Days 1 through 3, THEN 0.5 mg twice daily on Days 4 through 7, THEN 1 mg twice daily on Day 8 and thereafter - scopolamine (TRANSDERM-SCOP) patch 1.5 mg/72 hr (delivers 1 mg over 3 days) Apply 1 Patch as directed every 72 hours. - cyanocobalamin (VITAMIN B-12) 500 mcg tablet Take 500 mcg by mouth twice daily. Take 2 tablets daily - mometasone (NASONEX) 50 mcg/actuation nasal spray Mometasone Furoate [Nasonex] 2 SPRAY NASAL DAILY PRN For Cold Symptons December 30, 2017 Active - nitroglycerin sublingual (NITROSTAT) 0.4 mg SL tablet Dissolve 1 tablet under the tongue every 5 minutes as needed for chest pain. - blood sugar diagnostic (BLOOD GLUCOSE TEST) test strip Test blood sugar(s) 1 times daily. Dx: E11.9 Insulin: No - memantine (NAMENDA) 5 mg tablet Take 5 mg by mouth two times a day. - cholecalciferol, vitamin D3, (VITAMIN D3 ORAL) Take by mouth once daily. - Ferrous Sulfate (SLOW FE) 142 mg (45 mg iron) TbER Take 1 tablet by mouth once daily. - aspirin, enteric coated (ADULT LOW DOSE ASPIRIN) 81 mg EC tablet Take 1 tablet by mouth once daily. Meds Comments as of 07/05/2013: Calcium/Zinc tablet Problem List As Of Date 03/11/2024 Noted Resolved Hip arthritis [M16.10] 04/01/2013 Essential hypertension [I10] Mixed hyperlipidemia [E78.2] RLS (restless legs syndrome) [G25.81] SUMMARY [V999.95] 05/04/2013 07/28/2017 Anxiety [F41.9] 07/05/2013 07/19/2019 Diverticulosis [K57.90] 11/16/2013 Fibromyalgia [M79.7] 11/17/2013 Ex-smoker [Z87.891] 10/19/2014 Right hip pain [M25.551] 11/07/2014 07/19/2019 Lumbar degenerative disc disease [M51.36] 12/28/2015 Gastroesophageal reflux disease without esophag*01/08/2016 Insomnia [G47.00] 01/08/2016 Multiple falls [R29.6] 01/08/2016 07/28/2017 Migraine without aura and without status migrai*07/09/2016 Coronary artery disease involving torres martinez alarcon*07/09/2016 Osteoarthritis of multiple joints [M15.9] 09/06/2016 Well adult exam [Z00.00] 06/26/2017 07/19/2019 Encounter for screening for diabetes mellitus [*06/26/2017 07/28/2017 Hiatal hernia [K44.9] 07/28/2017 Type 2 diabet (more content not included)...[facility] Tele[facility] encounter Note* Telephone Encounter - Isaiah Wise, RN - 03/10/2024 2:32 PM EDT Pt returned call and given provider's message below with verbalized understanding. Patient agreeable. Patient reports she takes magnesium 500 mg daily OTC. Please advise on this. [facility]09-18-2024 Telephone encounter Note* Telephone Encounter - Tonie Turpin LPN - 03/10/2024 1:44 PM EDT Left message for pt to contact office. Tonie Turpin LPN [facility]09-18-2024 Telephone encounter Note* Telephone Encounter - Heaven Garg PA-C - 03/10/2024 12:34 PM EDT Let patient know that labs show: Magnesium is still slightly low. She gets this OTC. What dose does she take daily? Kidney function is stable compared to our last labs. Continue with specialist. Iron levels are okay. She is slightly anemic though. This has improved since last labs. I'm ordering 2 additional labs tomake sure no other potential causes. Thyroid is normal Cholesterol is normal. A1c at 6.5% which is stable Heaven Beckett [facility]09-18-2024 Telephone encounter Note* Telephone Encounter - oTnie Turpin LPN - 03/10/2024 12:13 PM EDT Spoke with pt to advise her that Dr Moreno's office responded that they did not do a diabetic eye exam as they were not aware pt is diabetic and she did not have any diabetic meds listed on ler med list. Advised pt of need to have diabetic eye exams. Pt has eye exam about 2 months ago at [facility] in [place], [place]. She doesn't think it was a dilated exam. Advised her to make sure she lets them know she is a diabetic as she is no longer going to be seeing Dr Moreno. Office will try to obtain last eye exam form [facility]. Tonie Turpin LPN [facility]09-18-2024 Miscellaneous Notes* Telephone Encounter - Tonie Turpin LPN - 03/10/2024 12:13 PM EDT Spoke with pt to advise her that Dr Moreno's office responded that they did not do a diabetic eye exam as they were not aware pt is diabetic and she did not have any diabetic meds listed on ler med list. Advised pt of need to have diabetic eye exams. Pt has eye exam about 2 months ago at [facility] in [place], [place]. She doesn't think it was a dilated exam. Advised her to make sure she lets them know she is a diabetic as she is no longer going to be seeing Dr Moreno. Office will try to obtain last eye exam form [facility]. Tonie Turpin LPN documented in this encounterLancaster [facility]09-17-2024 NoteHNO ID: [id number] Author: HEAVEN GARG PA-C Service: ? Author Type: Physician Pan Devulcanizer Helper Type: Progress Notes Filed: 03/09/2024 13:21 Note Text: Chief Complaint Patient presents with: Tamekaeck JENNA Ty Yu is a 68 year old female who presents here today for Chronic Medical Conditions.. Patient with hx of CAD, HTN, hyperlipidemia, a. Fib, CKD, DM2, iron def anemia, schatzki's ring, dementia, depression, carotid stenosis, and those as below. Patient denies concerns today. Past medical history, appointments, medications, allergies reviewed. Previous Medical History PAST MEDICAL HISTORY Diagnosis Date Age-related osteoporosis without current pathological fracture 06/01/2020 Anxiety 07/05/2013 Asthma diagnosed in childhood Urias's palsy Bilateral carotid artery disease (HCC) 12/15/2017 [place] 11/2017: 20-40% on right and 40-60% on left. Bilateral carotid artery stenosis 02/12/2021 [place] 11/2017: 20-40% on right and 40-60% on left. Bursitis of right hip 04/01/2013 Cataract 09/14/2021 Dr. Joaquín [facility] Chicken pox as a child Chronic midline low back pain without sciatica 08/02/[address] (HCC) 06/01/2020 Placed 2019 after colectomy due to perforated diverticulitis. 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 07/09/[address] Cunningham, stent to LAD Current moderate episode of major depressive disorder without prior episode (HCC) 07/14/2018 Current use of proton pump inhibitor 06/26/2017 Mg checked 06/2017 Diverticulosis 11/16/2013 Encounter for Medicare annual wellness exam 01/15/2021 Medical B eligibilty date 05/23/19 Date of last exam n/a Essential hypertension Ex-smoker 10/19/2014 Started at age 14 smoked up to 1 PPD. As of 12/2015 1/2 PPD or less. Quit 08/2019 Fibromyalgia 11/17/2013 Foot callus 06/01/2020 Gastroesophageal reflux disease without esophagitis 01/08/2016 Glaucoma suspect of both eyes 09/14/2021 Dr. [facility] Hiatal hernia 07/28/2017 Hip arthritis 04/01/[address] Ivy (Ortho) History of shingles 2005 Insomnia 01/08/2016 Iron deficiency anemia 07/04/[address] 11/11/2022 DPA: Son, Wilbert Carr Lumbar degenerative disc disease 12/28/[address] Arriaza Migraine without aura and without status migrainosus, not intractable 07/09/2016 Mixed hyperlipidemia Moderate pulmonary hypertension (HCC) 02/12/2021 Osteoarthritis of multiple joints 09/06/[address] Ford Continue home meds: prednisone and methotrexate Paroxysmal atrial fibrillation (HCC) 02/12/2021 RLS (restless legs syndrome) Smoker 10/19/2014 Started at age 14 smoked up to 1 PPD. As of 12/2015 1/2 PPD or less. Stage 3b chronic kidney disease ([facility]) 06/02/2020 Tear of left rotator cuff 07/24/2017 Added automatically from request for surgery [id number] Type 2 diabetes mellitus without complication, without long-term current use of insulin ([facility]) 12/17/2017 Unspecified dementia with behavioral disturbance 07/21/[address] Partida. He also stopped her cymbalta and started Zoloft Valvular heart disease 02/12/2021 Previous Surgical History PAST SURGICAL HISTORY Procedure Laterality Date 2D ECHO (EXEP) 08/24/2019 EF=65%, mild Freire Dysf, 1+ TI, APPENDECTOMY HX 1974 BREAST BIOPSY 07/30/2018 left vacuum assisted core needle biopsy [facility] COLONOSCOPY FLX DX W/COLLJ SPEC WHEN PFRMD 09/01/2018 Colonoscopy, repeat 10 yrs ESOPHAGOGASTRODUODENOSCOPY TRANSORAL DIAGNOSTIC 09/01/2018 EGD LAPAROSCOPIC HEMICOLECTOMY 2018 due to ruptured diverticulitis, has colostomy LAPAROSCOPY SURG CHOLECYSTECTOMY Cholecystectomy, lap LIG/TRNSXJ FLP TUBE ABDL/VAG APPR UNI/BI Tubal ligation PAST SURGICAL HISTORY OF bladder lift RECONSTRUCTION ROTATOR CUFF AVULSION CHRONIC Left 08/08/2017 Left shoulder arthroscopy, Open RCR and SAD REMV CATARACT EXTRACAP,INSERT LENS Bilateral 10/2022 STENT PLACEMENT 05/06/2013 LAD STRESS TEST 07/28/2017 normal TOTAL ABDOMINAL HYSTERECT W/WO RMVL TUBE OVARY Hysterectomy, LESA Family History FAMILY HISTORY Problem Relation Age of Onset Cancer Father Pancreatic Hypertension Mother at age 7, [place] at age 42 Coronary Artery Disease Mother 70 Lipids Mother Headache Mother Cancer Sister Non Hodgken's lymphoma Diabetes Sister Thyroid Sister No Known Problems Daughter No Known Problems Son Diabetes Brother other (Other) Brother MDS Diabetes Maternal Aunt Heart Attack Maternal Grandmother COPD Maternal Grandfather Cancer Paternal Grandmother Stroke Paternal Grandfather Patient Allergies ALLERGIES Allergen Reactions Bees Anaphylaxis Lipitor [Atorvastat* Myalgia Phenergan [Prometha* GI Upset Pravastatin Myalgia Pkwhrhh-Cfx-Ykl Red* Myalgia Trazodone Other: See Comments Increased urine frequency Current Medications Current Outpatient Medications on File Prior to Visit (more content not included)...[facility]09-17-2024 History of Present illness Narrative* Heaven Garg PA-C - 03/09/2024 12:35 PM EDT Chief Complaint Patient presents with: Recheck HPI Ty Yu is a 68 year old female who presents here today for Chronic Medical Conditions.. Patient with hx of CAD, HTN, hyperlipidemia, a. Fib, CKD, DM2, iron def anemia, schatzki's ring, dementia, depression, carotid stenosis, and those as below. Patient denies concerns today. Past medical history, appointments, medications, allergies reviewed. Previous Medical History PAST MEDICAL HISTORY Diagnosis Date Age-related osteoporosis without current pathological fracture 06/01/2020 Anxiety 07/05/2013 Asthma diagnosed in childhood Urias's palsy Bilateral carotid artery disease (HCC) 12/15/2017 US 11/2017: 20-40% on right and 40-60% on left. Bilateral carotid artery stenosis 02/12/2021 US 11/2017: 20-40% on right and 40-60% on left. Bursitis of right hip 04/01/2013 Cataract 09/14/2021 Dr. Joaquín Moreno- [facility] Chicken pox as a child Chronic midline low back pain without sciatica 08/02/[address] (HCC) 06/01/2020 Placed 2019 after colectomy due to perforated diverticulitis. 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 07/09/[address] Cunningham, stent to LAD Current moderate episode of major depressive disorder without prior episode (HCC) 07/14/2018 Current use of proton pump inhibitor 06/26/2017 Mg checked 06/2017 Diverticulosis 11/16/2013 Encounter for Medicare annual wellness exam 01/15/2021 Medical B eligibilty date 05/23/19 Date of last exam n/a Essential hypertension Ex-smoker 10/19/2014 Started at age 14 smoked up to 1 PPD. As of 12/2015 1/2 PPD or less. Quit 08/2019 Fibromyalgia 11/17/2013 Foot callus 06/01/2020 Gastroesophageal reflux disease without esophagitis 01/08/2016 Glaucoma suspect of both eyes 09/14/2021 Dr[facility] Hiatal hernia 07/28/2017 Hip arthritis 04/01/[address] Ivy (Ortho) History of shingles 2005 Insomnia 01/08/2016 Iron deficiency anemia 07/04/[address] 11/11/2022 DPA: Son, Wilbert Carr Lumbar degenerative disc disease 12/28/[address] Arriaza Migraine without aura and without status migrainosus, not intractable 07/09/2016 Mixed hyperlipidemia Moderate pulmonary hypertension (HCC) 02/12/2021 Osteoarthritis of multiple joints 09/06/[address] Ford Continue home meds: prednisone and methotrexate Paroxysmal atrial fibrillation (HCC) 02/12/2021 RLS (restless legs syndrome) Smoker 10/19/2014 Started at age 14 smoked up to 1 PPD. As of 12/2015 1/2 PPD or less. Stage 3b chronic kidney disease (HCC) 06/02/2020 Tear of left rotator cuff 07/24/2017 Added automatically from request for surgery [id number] Type 2 diabetes mellitus without complication, without long-term current use of insulin ([facility]) 12/17/2017 Unspecified dementia with behavioral disturbance 07/21/[address] Partida. He also stopped her cymbalta and started Zoloft Valvular heart disease 02/12/2021 Previous Surgical History PAST SURGICAL HISTORY Procedure Laterality Date 2D ECHO (EXEP) 08/24/2019 EF=65%, mild Freire Dysf, 1+ TI, APPENDECTOMY HX 1975 BREAST BIOPSY 07/30/2018 left vacuum assisted core needle biopsy [facility] COLONOSCOPY FLX DX W/COLLJ SPEC WHEN PFRMD 09/01/2018 Colonoscopy, repeat 10 yrs ESOPHAGOGASTRODUODENOSCOPY TRANSORAL DIAGNOSTIC 09/01/2018 EGD LAPAROSCOPIC HEMICOLECTOMY 2018 due to ruptured diverticulitis, has colostomy LAPAROSCOPY SURG CHOLECYSTECTOMY Cholecystectomy, lap LIG/TRNSXJ FLP TUBE ABDL/VAG APPR UNI/BI Tubal ligation PAST SURGICAL HISTORY OF bladder lift RECONSTRUCTION ROTATOR CUFF AVULSION CHRONIC Left 08/08/2017 Left shoulder arthroscopy, Open RCR and SAD REMV CATARACT EXTRACAP,INSERT LENS Bilateral 10/2022 STENT PLACEMENT 05/06/2013 LAD STRESS TEST 07/28/2017 normal TOTAL ABDOMINAL HYSTERECT W/WO RMVL TUBE OVARY Hysterectomy, LESA Family History FAMILY HISTORY Problem Relation Age of Onset Cancer Father Pancreatic Hypertension Mother at age 7, NM at age 42 Coronary Artery Disease Mother 70 Lipids Mother Headache Mother Cancer Sister Non Hodgken's lymphoma Diabetes Sister Thyroid Sister No Known Problems Daughter No Known Problems Son Diabetes Brother other (Other) Brother MDS Diabetes Maternal Aunt Heart Attack Maternal Grandmother COPD Maternal Grandfather Cancer Paternal Grandmother Stroke Paternal Grandfather Patient Allergies ALLERGIES Allergen Reactions Bees Anaphylaxis Lipitor [Atorvastat* Myalgia Phenergan [Prometha* GI Upset Pravastatin Myalgia Qnedsad-Ilb-Eqd Red* Myalgia Trazodone Other: See Comments Increased urine frequency Current Medications Current Outpatient Medications on File Prior to Visit Medication Sig Fenofibrate (LOFIBRA) 54 mg tablet Take 1 tablet by mouth once daily. pioglitazone (ACTOS) 30 mg tablet Take 1 tablet by mouth once daily. varenicline (CHANTIX CONTINUING MONTH BOX) 1 mg tablet Take 1 tablet by mouth two times a day with meals. mirtazapine (REMERON) 30 mg tablet Take 1 tablet by mouth daily at bedtime. ezetimibe (ZETIA) 10 mg tablet take 1 tablet by mouth daily dilTIAZem CD (CARTIA XT) 180 mg 24 hr capsule Take 1 capsule by mouth once daily. atorvastatin (LIPITOR) 80 mg tablet Take 1 tablet by mouth daily at bedtime. For cholesterol. pantoprazole DR (PROTONIX) 40 mg tablet Take 1 tablet by mouth two times a day. sucralfate (CARAFATE) 1 gram tablet Take 1 tablet by mouth three times a day as needed. Lancets lancets Test blood sugar(s) 1 times daily. Dx: Other DM Code E11.9, Insulin: No EPINEPHrine (EPIPEN 2-ESTEFANIA) 0.3 mg/0.3 mL auto-injector Inject 0.3 mL intramuscularly as needed. scopolamine (TRANSDERM-SCOP) patch 1.5 mg/72 hr (delivers 1 mg over 3 days) Apply 1 Patch as directed every 72 hours. magnesium oxide (MAG-OX) 400 mg (241.3 mg magnesium) tablet Take 1 tablet by mouth two times a day. mometasone (NASONEX) 50 mcg/actuation nasal spray Mometasone Furoate [Nasonex] 2 SPRAY NASAL DAILY PRN For Cold Symptons December 30, 2017 Active nitroglycerin sublingual (NITROSTAT) 0.4 mg SL tablet Dissolve 1 tablet under the tongue every 5 minutes as needed for chest pain. blood sugar diagnostic (BLOOD GLUCOSE TEST) test strip Test blood sugar(s) 1 times daily. Dx: E11.9Insulin: No cholecalciferol, vitamin D3, (VITAMIN D3 ORAL) Take by mouth once daily. Ferrous Sulfate (SLOW FE) 142 mg (45 mg iron) TbER Take 1 tablet by mouth once daily. aspirin, enteric coated (ADULT LOW DOSE ASPIRIN) 81 mg EC tablet Take 1 tablet by mouth once daily. varenicline (CHANTIX) 0.5 mg (11)- 1 mg (42) tablet Take 0.5 mg by mouth once daily on Days 1 through 3, THEN 0.5 mg twice daily on Days 4 through 7, THEN 1 mg twice daily on Day 8 and thereafter cyanocobalamin (VITAMIN B-12) 500 mcg tablet Take 500 mcg by mouth twice daily. Take 2 tablets daily memantine (NAMENDA) 5 mg tablet Take 5 mg by mouth two times a day. (Patient not taking: Reported on 03/09/2024) No current facility-administered medications on file prior to visit. Social History Social History Tobacco Use Smoking status: Some Days Current packs/day: 0.00 Average packs/day: 0.5 packs/day for 52.9 years (26.5 ttl pk-yrs) Types: Cigarettes Start date: 06/23/1968 Last attempt to quit: 05/18/2021 Years since quittin.8 Smokeless tobacco: Never Vaping Use Vaping status: Never Used Substance Use Topics Alcohol use: No Drug use: No Review of Symptoms REVIEW OF SYSTEMS GENERAL: No weight loss, malaise or fevers NECK: Negative for lumps, goiter, pain and significant neck swelling RESPIRATORY: Negative for cough, hemoptysis, wheezing, COPD, dyspnea or shortness of breath CARDIOVASCULAR: Negative for chest pain, leg swelling, hypertension, CHF or palpitations NEURO: No history of headaches, syncope, paralysis, seizures or tremors EXAM: BP 118/70 (BP Site: Left Arm, BP Position: Sitting, BP Cuff Size: Regular Adult) Pulse 73 Temp 37.1 C (98.7 F) Resp 16 Wt 72.1 kg (159 lb) LMP 05/22/2006 SpO2 99% BMI 26.82 kg/m Last 3 Encounter Wt Readings: Date: Wt: 03/09/2024 72.1 kg (159 lb) 09/08/2023 65.8 kg (145 lb) 01/28/2023 68.5 kg (151 lb)] General Appearance: Well appearing, alert, in no acute distress, well-hydrated, well nourished.. Neck: Supple, no adenopathy; thyroid symmetric, normal size, no bruits. Lungs: Lungs clear to auscultation. No wheezing, rhonchi, rales.. Heart: RRR without murmur, gallop, or rubs. No ectopy. Extremities: No deformities, edema, skin discoloration, clubbing or cyanosis. Good capillary refill. . Peripheral Pulses: Normal. Health Maintenance List RSV Vaccine(1 - 1-dose 60+ series) Never done BP Controlled (<130/80) due on 06/01/2021 Dilated Retinal Exam due on 09/14/2022 Lung Cancer Screening due on 03/11/2023 Urine Albumin:Creatinine Ratio due on 11/12/2023 Covid-19 Vaccine( season) due on 02/22/2024 Influenza Vaccine(1) due on 02/22/2024 HbA1C due on 03/10/2024 Hemoglobin/Hematocrit due on 05/28/2024 LDL Cholesterol due on 09/07/2024 Diabetic Foot Exam due on 09/07/2024 Serum Creatinine due on 09/07/2024 Mammogram Screening due on 10/09/2024 Annual PCP Team Chronic Disease Visit due on 03/09/2025 Bone Density Screening due on 10/09/2025 DTaP,Tdap,Td Vaccine(2 - Td or Tdap) due on 12/30/2027 Colorectal Cancer Screening due on 02/20/2030 Advance Directive Discussion Completed Shingrix Vaccine Completed Pneumococcal Vaccine: 65+ Completed Hepatitis C Screening Discontinued Data reviewed N/a ASSESSMENT/PLAN: 1. Essential hypertension - ICD9: 401.9, ICD10: I10 (primary diagnosis) - Controlled - Continue current medications - Recommend home blood pressure monitoring, to bring results to next visit - Encouraged sodium restriction, DASH or Mediterranean diet - Recommend regular aerobic exercise 2. Mixed hyperlipidemia - ICD9: 272.2, ICD10: E78.2 - Control undetermined, due for labs - Continue current medications - Counseled on healthy diet and regular exercise - LIPID PANEL, NONFASTING 3. Paroxysmal atrial fibrillation (HCC) - ICD9: 427.31, ICD10: I48.0 Continue with cardio 4. Type 2 diabetes mellitus without complication, without long-term current use of insulin (HCC) - ICD9: 250.00, ICD10: E11.9 - Control undetermined, due for labs - Continue current medications - COMPLETE BLOOD COUNT AND DIFFERENTIAL - HEMOGLOBIN A1C - URINALYSIS, WITH MICROSCOPIC - ALBUMIN/CREATININE RATIO, URINE 5. Stage 3b chronic kidney disease (HCC) - ICD9: 585.3, ICD10: N18.32 - eGFR: 37 Due for labs - Counseled on avoiding NSAIDs, adequate hydration - COMPLETE BLOOD COUNT AND DIFFERENTIAL - COMPREHENSIVE METABOLIC PANEL 6. Iron deficiency anemia, unspecified iron deficiency anemia type - ICD9: 280.9, ICD10: D50.9 Await labs - IRON AND TIBC 7. 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- ICD9: 414.01, ICD10: I25.10 Cont with cardio 8. Gastroesophageal reflux disease without esophagitis - ICD9: 530.81, ICD10: K21.9 - cont with gastro 9. Schatzki's ring - ICD9: 750.3, ICD10: K22.2 Continue with gastro 10. Current moderate episode of major depressive disorder without prior episode (HCC) - ICD9: 296.22, ICD10: F32.1 stable 11. Dementia with behavioral disturbance (HCC) - ICD9: 294.21, ICD10: F03.918 Cont with neuro 12. Abnormal thyroid blood test - ICD9: 790.6, ICD10: R79.89 - THYROID STIMULATING HORMONE 13. Medication management - ICD9: V58.69, ICD10: Z79.899 - MAGNESIUM - VITAMIN B12 Follow up in 6 months for wellness. Heaven Garg PA-C documented [facility] NoteHNO ID: [id number] Author: ZACH DONOVAN RN Service: ? Author Type: Registered Nurse Type: Progress Notes Filed: 02/11/2024 12:59 Note Text: CDM Telephonic Outreach Provider Action/FYI Contacted for: Routine Telephonic Outreach Contact made with patient: Yes Patient identified by name and date of . Discussed care with patient Are you experiencing any new or worsening symptoms you need to talk about today? No DBased on signal fitter, the following disposition is advised: No symptoms or symptoms present, not severe. Routed to: No Action Needed ROYAL Education Provided this Outreach: No Has follow up with Dr. Espinosa for trigger point injection in February No additional concerns Zach Donovan RN February 11, 2024 12:58 [facility]08-21-2024 History of Present illness Narrative* Zach Donovan RN - 02/11/2024 9:09 AM EDT [facility] Telephonic Outreach Provider Action/FYI Contacted for: Routine Telephonic Outreach Contact made with patient: Yes Patient identified by name and date of . Discussed care with patient Are you experiencing any new or worsening symptoms you need to talk about today? No DBased on signal fitter, the following disposition is advised: No symptoms or symptoms present, not severe. Routed to: No Action Needed ROYAL Education Provided this Outreach: No Has follow up with Dr. Espinosa for trigger point injection in February No additional concerns Zach Donovan RN February 11, 2024 12:58 PM documented in this encounterL[facility]08-21-2024 NotePatient Outreach (JERO) TY YU ([id number]) 1955 F NFR Date Time Provider Department 02/11/24 ZACH DONOVAN During your visit today, we recorded the following information about you: Zach Donovan RN 02/11/2024 12:59 PM Signed [facility] Telephonic Outreach Provider Action/FYI Contacted for: Routine Telephonic Outreach Contact made with patient: Yes Patient identified by name and date of . Discussed care with patient Are you experiencing any new or worsening symptoms you need to talk about today? No DBased on signal fitter, the following disposition is advised: No symptoms or symptoms present, not severe. Routed to: No Action Needed ROYAL Education Provided this Outreach: No Has follow up with Dr. Espinosa for trigger point injection in February No additional concerns Zach Donovan RN February 11, 2024 12:58 PM Allergies As of Date: 02/11/2024 Noted Allergy Reaction BEES 01/05/2014 10 - Anaphylaxis LIPITOR (ATORVASTATIN CALCIUM) 01/08/2016 17 - Myalgia PHENERGAN (PROMETHAZINE HCL) 01/25/2013 8 - GI Upset PRAVASTATIN 12/17/2017 17 - Myalgia [id number] REDUCTASE INHIBIT*12/29/2017 17 - Myalgia TRAZODONE 07/14/2018 14 - Other: See Comments Comments: Increased urine frequency Date Reviewed: 09/08/2023 Reviewed by: Tonie Turpin LPN - Fully Assessed Reason for Visit: community monitoring outreach [Other] Cmt: CDM-Telephonic outreach Prescriptions as of 02/11/2024 - Fenofibrate (LOFIBRA) 54 mg tablet Take 1 tablet by mouth once daily. - pioglitazone (ACTOS) 30 mg tablet Take 1 tablet by mouth once daily. - varenicline (CHANTIX CONTINUING MONTH BOX) 1 mg tablet Take 1 tablet by mouth two times a day with meals. - mirtazapine (REMERON) 30 mg tablet Take 1 tablet by mouth daily at bedtime. - ezetimibe (ZETIA) 10 mg tablet take 1 tablet by mouth daily - dilTIAZem CD (CARTIA XT) 180 mg 24 hr capsule Take 1 capsule by mouth once daily. - atorvastatin (LIPITOR) 80 mg tablet Take 1 tablet by mouth daily at bedtime. For cholesterol. - pantoprazole DR (PROTONIX) 40 mg tablet Take 1 tablet by mouth two times a day. - sucralfate (CARAFATE) 1 gram tablet Take 1 tablet by mouth three times a day as needed. - Lancets lancets Test blood sugar(s) 1 times daily. Dx: Other DM Code E11.9, Insulin: No - EPINEPHrine (EPIPEN 2-ESTEFANIA) 0.3 mg/0.3 mL auto-injector Inject 0.3 mL intramuscularly as needed. - varenicline (CHANTIX) 0.5 mg (11)- 1 mg (42) tablet Take 0.5 mg by mouth once daily on Days 1 through 3, THEN 0.5 mg twice daily on Days 4 through 7, THEN 1 mg twice daily on Day 8 and thereafter - scopolamine (TRANSDERM-SCOP) patch 1.5 mg/72 hr (delivers 1 mg over 3 days) Apply 1 Patch as directed every 72 hours. - magnesium oxide (MAG-OX) 400 mg (241.3 mg magnesium) tablet Take 1 tablet by mouth two times a day. - cyanocobalamin (VITAMIN B-12) 500 mcg tablet Take 500 mcg by mouth twice daily. Take 2 tablets daily - mometasone (NASONEX) 50 mcg/actuation nasal spray Mometasone Furoate [Nasonex] 2 SPRAY NASAL DAILY PRN For Cold Symptons December 30, 2017 Active - nitroglycerin sublingual (NITROSTAT) 0.4 mg SL tablet Dissolve 1 tablet under the tongue every 5 minutes as needed for chest pain. - blood sugar diagnostic (BLOOD GLUCOSE TEST) test strip Test blood sugar(s) 1 times daily. Dx: E11.9 Insulin: No - memantine (NAMENDA) 5 mg tablet Take 5 mg by mouth two times a day. - cholecalciferol, vitamin D3, (VITAMIN D3 ORAL) Take by mouth once daily. - Ferrous Sulfate (SLOW FE) 142 mg (45 mg iron) TbER Take 1 tablet by mouth once daily. - aspirin, enteric coated (ADULT LOW DOSE ASPIRIN) 81 mg EC tablet Take 1 tablet by mouth once daily. Meds Comments as of 07/05/2013: Calcium/Zinc tablet Problem List As Of Date 02/11/2024 Noted Resolved Hip arthritis [M16.10] 04/01/2013 Essential hypertension [I10] Mixed hyperlipidemia [E78.2] RLS (restless legs syndrome) [G25.81] SUMMARY [V999.95] 05/04/2013 07/28/2017 Anxiety [F41.9] 07/05/2013 07/19/2019 Diverticulosis [K57.90] 11/16/2013 Fibromyalgia [M79.7] 11/17/2013 Ex-smoker [Z87.891] 10/19/2014 Right hip pain [M25.551] 11/07/2014 07/19/2019 Lumbar degenerative disc disease [M51.36] 12/28/2015 Gastroesophageal reflux disease without esophag*01/08/2016 Insomnia [G47.00] 01/08/2016 Multiple falls [R29.6] 01/08/2016 07/28/2017 Migraine without aura and without status migrai*07/09/2016 Coronary artery disease involving torres martinez alarcon*07/09/2016 Osteoarthritis of multiple joints [M15.9] 09/06/2016 Well adult exam [Z00.00] 06/26/2017 07/19/2019 Encounter for screening for diabetes mellitus [*06/26/2017 07/28/2017 Hiatal hernia [K44.9] 07/28/2017 Type 2 diabetes mellitus without complication, *12/17/2017 Encounter for screening mammogram for breast ca*12/29/2017 07/19/2019 Current moderate episode (more content not included)...[facility] Tele[facility] encounter Note* Telephone Encounter - Lupe Ortega - 01/28/2024 10:16 AM EDT Prescription Refill Information The patient has been identified by name and date of : Yes Caregiver verified no other encounters exist for this prescription request: Yes Caregiver confirmed with patient/requestor that no other refills are due, in the near future, with this provider at this time: Yes The last office visit in the department: 09/08/2023 Does the patient have a future office visit with this provider/department: Yes 03/09/2024 Requested Prescriptions Pending Prescriptions Disp Refills Fenofibrate (LOFIBRA) 54 mg tablet 90 tablet 1 Sig: Take 1 tablet by mouth once daily. pioglitazone (ACTOS) 30 mg tablet 30 tablet 5 Sig: Take 1 tablet by mouth once daily. Lupe Buitrago January 28, 2024 10:20 AM [facility]08-07-2024 Miscellaneous Notes* Telephone Encounter - Lupe Ortega - 01/28/2024 10:16 AM EDT Prescription Refill Information The patient has been identified by name and date of : Yes Caregiver verified no other encounters exist for this prescription request: Yes Caregiver confirmed with patient/requestor that no other refills are due, in the near future, with this provider at this time: Yes The last office visit in the department: 09/08/2023 Does the patient have a future office visit with this provider/department: Yes 03/09/2024 Requested Prescriptions Pending Prescriptions Disp Refills Fenofibrate (LOFIBRA) 54 mg tablet 90 tablet 1 Sig: Take 1 tablet by mouth once daily. pioglitazone (ACTOS) 30 mg tablet 30 tablet 5 Sig: Take 1 tablet by mouth once daily. Lupe Buitrago January 28, 2024 10:20 AM documented in this encounterL[facility]07-16-2024 NoteHNO ID: [id number] Author: MADDISON CABRERA MA Service: ? Author Type: Software Engineering Manager Type: Progress Notes Filed: 01/06/2024 11:17 Note Text: POPULATION HEALTH NAVIGATION OUTREACH Action/FYI CDM Reschedule appointment with PCP-follow up was cancelled by office Spoke with patient; scheduled appointment Reason for Outreach Community Monitoring/Network Navigator [employer] Phone Line: CDM Patient Contacted: Spoke to patient/parent/or legal guardian Patient identified by name and : Yes Community Monitoring/Network Navigator Pools AND Phone Line actions taken: Patient scheduled: Follow-Up Appointment 02/25/2024 in [facility] with MAGAN AMADOR - Follow up Navigation Signature: Maddison Cabrera MA January 06, 2024 11:12 [facility]07-16-2024 History of Present illness Narrative* Maddison Cabrera MA - 01/06/2024 11:12 AM EDT POPULATION HEALTH NAVIGATION OUTREACH Action/FYI CDM Reschedule appointment with PCP-follow up was cancelled by office Spoke with patient; scheduled appointment Reason for Outreach Community Monitoring/Network Navigator Pools & Phone Line: CDM Patient Contacted: Spoke to patient/parent/or legal guardian Patient identified by name and : Yes Community Monitoring/Network Navigator Pools & Phone Line actions taken: Patient scheduled: Follow-Up Appointment 02/25/2024 in [facility] with MAGAN AMADOR - Follow up Navigation Signature: Maddison Cabrera MA January 06, 2024 11:12 AM * Zach Donovan RN - 01/06/2024 8:53 AM EDT CDM Telephonic Outreach Provider Action/FYI Patient requesting to reschedule appointment with PCP-follow up was cancelled by office. Will forward to navigators to assist States she takes B/P at home- 130-s/80-90's Last B/p in office 130/80 No additional concerns Contacted for: Routine Telephonic Outreach Contact made with patient: Yes Patient identified by name and date of . Discussed care with patient Are you experiencing any new or worsening symptoms you need to talk about today? No Disease Specific Do you check your blood pressure at home? Yes, Enter readings: per fyi Based on signal fitter, the following disposition is advised: No symptoms or symptoms present, not severe. Routed to: Navigation Team: Annual Wellness visit [facility] Education Provided this Outreach: Rosalind Donovan RN January 06, 2024 11:09 AM documented in [facility] NoteHNO ID: [id number] Author: ZACH DONOVAN RN Service: ? Author Type: Registered Nurse Type: Progress Notes Filed: 01/06/2024 11:11 Note Text: CDM Telephonic Outreach Provider Action/FYI Patient requesting to reschedule appointment with PCP-follow up was cancelled by office. Will forward to navigators to assist States she takes B/P at home- 130-s/80-90's Last B/p in office 130/80 No additional concerns Contacted for: Routine Telephonic Outreach Contact made with patient: Yes Patient identified by name and date of . Discussed care with patient Are you experiencing any new or worsening symptoms you need to talk about today? No Disease Specific Do you check your blood pressure at home? Yes, Enter readings: per fyi Based on signal fitter, the following disposition is advised: No symptoms or symptoms present, not severe. Routed to: Navigation Team: Annual Wellness visit [facility] Education Provided this Outreach: Rosalind Donovan RN January 06, 2024 11:09 [facility]07-16-2024 NotePatient Outreach ([facility]) TY YU ([id number]) 1955 F NFR Date Time Provider Department 01/06/24 ZACH DONOVAN During your visit today, we recorded the following information about you: Zach Donovan RN 01/06/2024 11:11 AM Signed CD Telephonic Outreach Provider Action/FY Patient requesting to reschedule appointment with PCP-follow up was cancelled by office. Will forward to navigators to assist States she takes B/P at home- 130-s/80-90's Last B/p in office 130/80 No additional concerns Contacted for: Routine Telephonic Outreach Contact made with patient: Yes Patient identified by name and date of . Discussed care with patient Are you experiencing any new or worsening symptoms you need to talk about today? No Disease Specific Do you check your blood pressure at home? Yes, Enter readings: per fyi Based on signal fitter, the following disposition is advised: No symptoms or symptoms present, not severe. Routed to: Navigation Team: Annual Wellness visit [facility] Education Provided this Outreach: Rosalind Donovan RN January 06, 2024 11:09 AM Maddison Cabrera MA 01/06/2024 11:17 AM Signed POPULATION HEALTH NAVIGATION OUTREACH Action/FYI CD Reschedule appointment with PCP-follow up was cancelled by office Spoke with patient; scheduled appointment Reason for Outreach Community Monitoring/Network Navigator Pools AND Phone Line: CDM Patient Contacted: Spoke to patient/parent/or legal guardian Patient identified by name and : Yes Community Monitoring/Network Navigator Pools AND Phone Line actions taken: Patient scheduled: Follow-Up Appointment 02/25/2024 in [facility] with MAGAN AMADOR - Follow up Navigation Signature: Maddison Cabrera MA January 06, 2024 11:12 AM Allergies As of Date: 01/06/2024 Noted Allergy Reaction BEES 01/05/2014 10 - Anaphylaxis LIPITOR (ATORVASTATIN CALCIUM) 01/08/2016 17 - Myalgia PHENERGAN (PROMETHAZINE HCL) 01/25/2013 8 - GI Upset PRAVASTATIN 12/17/2017 17 - Myalgia [id number] REDUCTASE INHIBIT*12/29/2017 17 - Myalgia TRAZODONE 07/14/2018 14 - Other: See Comments Comments: Increased urine frequency Date Reviewed: 09/08/2023 Reviewed by: Tonie Turpin LPN - Fully Assessed Reason for Visit: community monitoring outreach [Other] Cmt: CDM-Telephonic outreach Prescriptions as of 01/06/2024 - varenicline (CHANTIX CONTINUING MONTH BOX) 1 mg tablet Take 1 tablet by mouth two times a day with meals. - mirtazapine (REMERON) 30 mg tablet Take 1 tablet by mouth daily at bedtime. - ezetimibe (ZETIA) 10 mg tablet take 1 tablet by mouth daily - dilTIAZem CD (CARTIA XT) 180 mg 24 hr capsule Take 1 capsule by mouth once daily. - atorvastatin (LIPITOR) 80 mg tablet Take 1 tablet by mouth daily at bedtime. For cholesterol. - Fenofibrate (LOFIBRA) 54 mg tablet Take 1 tablet by mouth once daily. - pantoprazole DR (PROTONIX) 40 mg tablet Take 1 tablet by mouth two times a day. - sucralfate (CARAFATE) 1 gram tablet Take 1 tablet by mouth three times a day as needed. - Lancets lancets Test blood sugar(s) 1 times daily. Dx: Other DM Code E11.9, Insulin: No - EPINEPHrine (EPIPEN 2-ESTEFANIA) 0.3 mg/0.3 mL auto-injector Inject 0.3 mL intramuscularly as needed. - varenicline (CHANTIX) 0.5 mg (11)- 1 mg (42) tablet Take 0.5 mg by mouth once daily on Days 1 through 3, THEN 0.5 mg twice daily on Days 4 through 7, THEN 1 mg twice daily on Day 8 and thereafter - pioglitazone (ACTOS) 30 mg tablet Take 1 tablet by mouth once daily. - scopolamine (TRANSDERM-SCOP) patch 1.5 mg/72 hr (delivers 1 mg over 3 days) Apply 1 Patch as directed every 72 hours. - magnesium oxide (MAG-OX) 400 mg (241.3 mg magnesium) tablet Take 1 tablet by mouth two times a day. - cyanocobalamin (VITAMIN B-12) 500 mcg tablet Take 500 mcg by mouth twice daily. Take 2 tablets daily - mometasone (NASONEX) 50 mcg/actuation nasal spray Mometasone Furoate [Nasonex] 2 SPRAY NASAL DAILY PRN For Cold Symptons December 30, 2017 Active - nitroglycerin sublingual (NITROSTAT) 0.4 mg SL tablet Dissolve 1 tablet under the tongue every 5 minutes as needed for chest pain. - blood sugar diagnostic (BLOOD GLUCOSE TEST) test strip Test blood sugar(s) 1 times daily. Dx: E11.9 Insulin: No - memantine (NAMENDA) 5 mg tablet Take 5 mg by mouth two times a day. - cholecalciferol, vitamin D3, (VITAMIN D3 ORAL) Take by mouth once daily. - Ferrous Sulfate (SLOW FE) 142 mg (45 mg iron) TbER Take 1 tablet by mouth once daily. - aspirin, enteric coated (ADULT LOW DOSE ASPIRIN) 81 mg EC tablet Take 1 tablet by mouth once daily. Meds Comments as of 07/05/2013: Calcium/Zinc tablet Problem List As Of Date 01/06/2024 Noted Resolved Hip arthritis [M16.10] 04/01/2013 Essential hypertension [I10] Mixed hyperlipidemia [E78.2] RLS (restless legs syndrome) [G25.81] SUMMARY [V99 (more content not included)...[facility]06-17-2024 History of Present illness Narrative* Zach Donovan RN - 12/08/2023 11:16 AM EDT [facility] Telephonic Outreach Provider Action/FYI Contacted for: Routine Telephonic Outreach Contact made with patient: No, left message. Zach Donovan RN December 08, 2023 11:16 AM documented in this encounterL[facility]06-14-[facility] History of Present illness Narrative* Zach Donovan RN - 12/05/2023 2:04 PM EDT [facility] Telephonic Outreach Provider Action/FYI Contacted for: Routine Telephonic Outreach Contact made with patient: No, left message. Zach Donovan RN December 05, 2023 2:06 PM documented in this encounterLanc[facility]05-29-2024 Telephone encounter Note * Telephone Encounter - Magan Amador MD - 11/19/2023 4:35 PM EDT The following approved medication requests have been transmitted electronically. Requested Prescriptions Signed Prescriptions Disp Refills varenicline (CHANTIX CONTINUING MONTH BOX) 1 mg tablet 60 tablet 2 Sig: Take 1 tablet by mouth two times a day with meals. Authorizing Provider: MAGAN AMADOR mirtazapine (REMERON) 30 mg tablet 90 tablet 1 Sig: Take 1 tablet by mouth daily at bedtime. Authorizing Provider: MAGAN AMADOR MD [facility]05-29-2024 Miscellaneous Notes* Telephone Encounter - Magan Amador MD - 11/19/2023 4:35 PM EDT The following approved medication requests have been transmitted electronically. Requested Prescriptions Signed Prescriptions Disp Refills varenicline (CHANTIX CONTINUING MONTH BOX) 1 mg tablet 60 tablet 2 Sig: Take 1 tablet by mouth two times a day with meals. Authorizing Provider: MAGAN AMADOR mirtazapine (REMERON) 30 mg tablet 90 tablet 1 Sig: Take 1 tablet by mouth daily at bedtime. Authorizing Provider: MAGAN AMADOR MD * Telephone Encounter - Mis Chatman 11/19/2023 11:27 AM EDT Patient has been identified by name and date of : yes Dr. Amador Patient phones for refill(s): Requested Prescriptions Pending Prescriptions Disp Refills varenicline (CHANTIX CONTINUING MONTH BOX) 1 mg tablet 60 tablet 2 Sig: Take 1 tablet by mouth two times a day with meals. mirtazapine (REMERON) 30 mg tablet 90 tablet 1 Sig: Take 1 tablet by mouth daily at bedtime. Date of last office visit in primary care: 09/08/2023 Date of next office visit in primary care: 03/10/2024 Please advise. Thank you. Mis Wilson. documented in this encounterLanc[facility]05-29-2024 Telephone encounter Note * Telephone Encounter - [place] Mis Wilson - 11/19/2023 11:27 AM EDT Patient has been identified by name and date of : yes Dr. Amador Patient phones for refill(s): Requested Prescriptions Pending Prescriptions Disp Refills varenicline (CHANTIX CONTINUING MONTH BOX) 1 mg tablet 60 tablet 2 Sig: Take 1 tablet by mouth two times a day with meals. mirtazapine (REMERON) 30 mg tablet 90 tablet 1 Sig: Take 1 tablet by mouth daily at bedtime. Date of last office visit in primary care: 09/08/2023 Date of next office visit in primary care: 03/10/2024 Please advise. Thank you. Mis Wilson. [facility]05[facility] Telephone encounter Note* Telephone Encounter - Raysa Goodson MA - 11/11/2023 11:14 AM EDT Patient has been identified by name and date of : yes Pharmacy phones for refill(s): Requested Prescriptions Pending Prescriptions Disp Refills ezetimibe (ZETIA) 10 mg tablet [Pharmacy Med Name: EZETIMIBE 10 MG TABLET] 90 tablet 1 Sig: take 1 tablet by mouth daily Date of last office visit in primary care: 01/28/23 Date of next office visit in primary care: 03/10/24 Please advise. Thank you. Raysa Goodson MA. [facility]05-21-2024 Miscellaneous Notes* Telephone Encounter - Raysa Goodson MA - 11/11/2023 11:14 AM EDT Patient has been identified by name and date of : yes Pharmacy phones for refill(s): Requested Prescriptions Pending Prescriptions Disp Refills ezetimibe (ZETIA) 10 mg tablet [Pharmacy Med Name: EZETIMIBE 10 MG TABLET] 90 tablet 1 Sig: take 1 tablet by mouth daily Date of last office visit in primary care: 01/28/23 Date of next office visit in primary care: 03/10/24 Please advise. Thank you. Raysa Goodson MA. documented in this encounterLanc[facility]05-17-2024 History of Present illness Narrative* Zach Donovan RN - 11/07/2023 11:01 AM EDT CD Telephonic Outreach Provider Action/FYI Patient states she had not heard from pain management so she attempted to call but the schedulers informed her they would reach out to her. She has not heard from them Advised to wait a week or two to determine if she is contacted. If not reach out to PCP office for recommendation to another provider Patient struggling with chronic back pain Contacted for: Routine Telephonic Outreach Contact made with patient: Yes Patient identified by name and date of . Discussed care with patient Are you experiencing any new or worsening symptoms you need to talk about today? Yes Based on signal fitter, the following disposition is advised: No symptoms or symptoms present, not severe. Routed to: No Action Needed [facility] Education Provided this Outreach: No Zach Donovan RN November 07, 2023 11:05 AM * Zach Donovan RN - 11/06/2023 9:13 AM EDT [facility] Telephonic Outreach Provider Action/FYI Contacted for: Routine Telephonic Outreach Contact made with patient: No, left message. Zach Donovan RN November 06, 2023 1:47 PM documented in this encounterLanc[facility] Hospital04-29-2024 Telephone encounter Note * Telephone Encounter - Carin Armenta - 10/20/2023 3:30 PM EDT Please assist patient with scheduling new patient consultation with Dr. Donte Garay. [facility]04-29-2024 Miscellaneous Notes* Telephone Encounter - Carin Armenta - 10/20/2023 3:30 PM EDT Please assist patient with scheduling new patient consultation with Dr. Donte Garay. * Telephone Encounter - Uyen Witt RN - 10/20/2023 3:21 PM EDT Patient calls and notified of providers instructions. Patient verbalizes understanding. Patient transferred to schedule consult to Endo and Pain Management. Uyen Witt RN * Telephone Encounter - Carmelita Naik LPN - 10/20/2023 2:35 PM EDT Left message to call office. 10/20/2023 2:35 PM. Carmelita Naik LPN * Telephone Encounter - Heaven Garg PA-C - 10/20/2023 1:09 PM EDT Yes. That would be one I recommend. Consult placed. * Telephone Encounter - Carmelita Naik LPN - 10/20/2023 12:32 PM EDT Pt was notified of message & states she is willing to see Endo. Pt states she will go back to pain management. Pt asking for provider's recommendation for pain management, asking about Dr Garay at [facility]? Pain management referral pending. Carmelita Naik LPN * Telephone Encounter - Heaven Garg PA-C - 10/17/2023 10:58 AM EDT Let patient know that after putting in order, I realized that there is a contraindication with the medication and her hx of the Schatzki ring that was noted on EGD last year. I'm going to place consult to endocrinology to help determine best tx option for her osteoporosis. In regards to back pain. No I don't think it's related to osteoporosis. Osteoporosis doesn't typically cause pain. But increases risk for fractures. The back pain would need evaluated. Looks like shepreviously saw pain management for back pain. We could try to get patient back in with pain management. Would need to decide if she wants to see someone closer to home or come [place] to [place]. * Telephone Encounter - Nia Eddy LPN - 10/17/2023 10:53 AM EDT Patient notified and voiced understanding. She is willing to start Fosamax. States that she is having lower back pain and asking if this could be from the osteoporosis. She has been taking Tylenol athirst without much relief. Asking if there is another recommendation for the pain. Please advise. * Telephone Encounter - Heaven Garg PA-C - 10/17/2023 7:48 AM EDT Patient's bone density does show osteoporosis in left hip. Is she willing to start fosamax as we discussed during visit. It would be once a week. Take on empty stomach and stay upright for 30 minutesafter taking it. Heaven Garg PA-C documented in this encounterLancaster [facility] Hospital04-29-2024 Telephone encounter Note * Telephone Encounter - Uyen Witt RN - 10/20/2023 3:21 PM EDT Patient calls and notified of providers instructions. Patient verbalizes understanding. Patient transferred to schedule consult to Endo and Pain Management. Uyen Witt RN [facility]04-29-2024 Telephone encounter Note* Telephone Encounter - Carmelita Naik LPN - 10/20/2023 2:35 PM EDT Left message to call office. 10/20/2023 2:35 PM. Carmelita Naik LPN [facility]04-29-20[facility] Telephone encounter Note* Telephone Encounter - Heaven Garg PA-C - 10/20/2023 1:09 PM EDT Yes. That would be one I recommend. Consult placed. [facility]04-29-20[facility] Telephone encounter Note* Telephone Encounter - Carmelita Naik LPN - 10/20/2023 12:32 PM EDT Pt was notified of message & states she is willing to see Endo. Pt states she will go back to pain management. Pt asking for provider's recommendation for pain management, asking about Dr Garay at [facility]? Pain management referral pending. Carmelita Naik LPN [facility]04-26-2024 Telephone encounter Note* Telephone Encounter - Heaven Garg PA-C - 10/17/2023 10:58 AM EDT Let patient know that after putting in order, I realized that there is a contraindication with the medication and her hx of the Schatzki ring that was noted on EGD last year. I'm going to place consult to endocrinology to help determine best tx option for her osteoporosis. In regards to back pain. No I don't think it's related to osteoporosis. Osteoporosis doesn't typically cause pain. But increases risk for fractures. The back pain would need evaluated. Looks like shepreviously saw pain management for back pain. We could try to get patient back in with pain management. Would need to decide if she wants to see someone closer to home or come up to [place]. [facility]04-26-[facility] Telephone encounter Note* Telephone Encounter - Nia Eddy LPN - 10/17/2023 10:53 AM EDT Patient notified and voiced understanding. She is willing to start Fosamax. States that she is having lower back pain and asking if this could be from the osteoporosis. She has been taking Tylenol athirst without much relief. Asking if there is another recommendation for the pain. Please advise. [facility]04-26-20[facility] Telephone encounter Note* Telephone Encounter - Heaven Garg PA-C - 10/17/2023 7:48 AM EDT Patient's bone density does show osteoporosis in left hip. Is she willing to start fosamax as we discussed during visit. It would be once a week. Take on empty stomach and stay upright for 30 minutesafter taking it. Heaven Garg PA-C [facility]04-24-2024 Telephone encounter Note* Telephone Encounter - Raysa Goodson MA - 10/15/2023 1:37 PM EDT Patient was notified and will go to urgent care Raysa Goodson MA [facility]04-24-2024 Miscellaneous Notes* Telephone Encounter - Raysa Goodson MA - 10/15/2023 1:37 PM EDT Patient was notified and will go to urgent care Raysa Goodson MA * Telephone Encounter - Magan Amador MD - 10/15/2023 1:00 PM EDT Please advise patient we don't treat things over the phone. So she should either go to a local urgent/express care near her or the ER. The guidelines for prophylactic treatment is: The tick needs to be identified as a deer tic (so we need one for a provider to see, like in a sandwich bag) Tick is estimated to have been attached for ?36 hours based on degree of engorgement or time of exposure. And Prophylaxis is begun within 72 hours of tick removal. * Telephone Encounter - Regine Morgan LPN - 10/15/2023 12:11 PM EDT Pt calls states yesterday found a tic on her head had been able to remove the whole tic . Then lastevening found another on her ear which removed now this morning found another on her scalp again was able to remove what she believes to be all of the tics. She is having her yard sprayed this morning and dog treated. Explained should come in for appointment or to urgent care to be evaluated to make sure all was removed and receive atb. Pt states lives 2 hours away. Asking doctor [facility] atb [facility]. documented in this encounterLanc[facility]04-24-2024 Telephone encounter Note * Telephone Encounter - Magan Amador MD - 10/15/2023 1:00 PM EDT Please advise patient we don't treat things over the phone. So she should either go to a local urgent/express care near her or the ER. The guidelines for prophylactic treatment is: The tick needs to be identified as a deer tic (so we need one for a provider to see, like in a sandwich bag) Tick is estimated to have been attached for ?36 hours based on degree of engorgement or time of exposure. And Prophylaxis is begun within 72 hours of tick removal. [facility]04-24-2024 Telephone encounter Note* Telephone Encounter - Regine Morgan LPN - 10/15/2023 12:11 PM EDT Pt calls states yesterday found a tic on her head had been able to remove the whole tic . Then lastevening found another on her ear which removed now this morning found another on her scalp again was able to remove what she believes to be all of the tics. She is having her yard sprayed this morning and dog treated. Explained should come in for appointment or to urgent care to be evaluated to make sure all was removed and receive atb. Pt states lives 2 hours away. Asking doctor send atb to [facility] [place]. [facility]04-22-2024 Note* Letter - Андрей Camarena - 10/13/2023 9:06 AM EDT October 13, 2023 PID: [id number] Ty Ye Yu [address] [address] Dear Luis F Yu, We are pleased to inform you that the results of your recent breast imaging exam on 10/10/2023 are normal. Early detection of cancer is very important. We also understand recommendations regarding breast cancer screening are controversial. Please discuss with your primary care provider which strategy is best for you and whether a mammogram is right for you. Your imaging studies and report will be kept on file at [facility] as part of your permanent medical record and are available for your continuing care. Thank you for allowing us to help in meeting your health care needs. Sincerely, Dr. Traore Interpreting Radiologist [facility] (Normal over 40) [facility]04-22-2024 Miscellaneous Notes* Letter - Coordinator, Mammography - 10/13/2023 9:06 AM EDT October 13, 2023 PID: [id number] Ty Yu [address], [place] [address] Dear Luis F JuarezYu, We are pleased to inform you that the results of your recent breast imaging exam on 10/10/2023 are normal. Early detection of cancer is very important. We also understand recommendations regarding breast cancer screening are controversial. Please discuss with your primary care provider which strategy is best for you and whether a mammogram is right for you. Your imaging studies and report will be kept on file at [facility] as part of your permanent medical record and are available for your continuing care. Thank you for allowing us to help in meeting your health care needs. Sincerely, Dr. Traore Interpreting Radiologist [facility] (Normal over 40) documented in this encounterLancaster [facility] Hospital04-19-2024 History of Present illness Narrative* Juan Walker, RT(R) - 10/10/2023 10:05 AM EDT Radiology Service Progress Note PATIENT NAME: Ty Yu DATE OF SERVICE: October 10, 2023 TIME: 10:05 AM PATIENT IDENTITY VERIFICATION COMPLETED USING TWO (2) IDENTIFIERS: Name and Date of confirmedby patient verbally. FALL SCREENING: Has the patient had 2 falls in the last year or 1 fall with injury or currently using an Ambulatory Assistive Device (Walker, Cane, Wheelchair, Crutches, etc.)? No PATIENT GENDER DATA: Female. status: : No status: NO. PATIENT RELEVANT IMPLANT DATA REVIEWED: Not Applicable PATIENT PRESENTS WITH AN IMPLANTABLE OR ATTACHED PSYCHIATRIC LPN: No RADIOLOGY DEPARTMENT: Bone Density PERIPHERAL IV DATA: Not applicable SIGNED BY: RT Tevin(R) October 10, 2023 10:05 AM documented in this encounterLancaster [facility] Hospital04-15-2024 History of Present illness Narrative* Zach Donovan RN - 10/06/2023 4:20 PM EDT [facility] Telephonic Outreach Provider Action/FYI Per patient- Having back pain. This is chronic Receives trigger shots from Neurologist -Dr. Partida States she cannot get follow up appointment with Dr. Partida until December. Using Voltaren and heat with minimal relief. States Dr. Partida has declined any additional medication despite December follow up Discussion regarding pain management- States she was followed in the past. Declines at this time. Encouraged to complete bone density testing Scheduled for 10/09 Contacted for: Routine Telephonic Outreach Contact made with patient: Yes Patient identified by name and date of . Discussed care with patient Are you experiencing any new or worsening symptoms you need to talk about today? Yes Based on signal fitter, the following disposition is advised: No symptoms or symptoms present, not severe. Routed to: No Action Needed ROYAL Education Provided this Outreach: No Zach Donovan RN October 07, 2023 1:24 PM documented in this encounterL[facility]24 Miscellaneous Notes* Telephone Encounter - Rosemary Mcnair RN - 09/09/2023 11:30 AM EDT Patient returned call and given provider's message below and patient verbalized understanding. Barron Mcnair RN * Telephone Encounter - Tonie Turpin LPN - 09/09/2023 11:16 AM EDT Left message for pt to contact office. Tonie Turpin LPN * Telephone Encounter - Heaven Garg PA-C - 09/09/2023 9:46 AM EDT A1c is 6.4% which is good. Cholesterol level is normal. Vit D is low normal. Continue the vit d that she is taking OTC. Let her know that her eye drLuis F Told us that they were not aware of the dx of diabetes. She needs to do DM eye check at her next visit with them. Also let her know that I talked with Dr. Amador about the calcitriol and he also doesn't routinely use this medication. As we discussed, we will get bone density scan and consider a medication such as fosamax. Thanks. Heaven Garg PA-C documented in this encounterL[facility]03-18-2024 History of Present illness Narrative* Heaven Garg PA-C - 09/08/2023 12:53 PM EDT Images from the original note were not included. Ty Yu is a 68 year old female here for a Medicare wellness visit. Medicare Health Risk Assessment General Health Fair Exercise: Minutes/Day no Exercise: Days/Week no Alcohol: Daily Use no Alcohol: Drinks/Day no Alcohol: 6 or more drinks no Feel off balance yes Concerns: Teeth/Dentures no Concerns: Sexual function no Troubled by feelings no Frequency: Eating healthy diet yes ADLs requiring help no Safety precautions in home/vehicle yes Smoke, vape, chews tobacco no Difficulty hearing no Difficulty seeing no Current Providers Specialists: I have reviewed specialist-related care of the patient in the medical record. Medical/Family history review Reviewed and updated problem list, medical/surgical/family/social history, medications, and allergies. Opioid use review Opioid Medications (last 90 days) No data to display Depression screening Depression Screening PHQ-2 Score 09/08/2023 0 Depression screening tool completed and reviewed. Based on score and interview, patient is not at risk for depression. Screening tool discussed with patient, and I recommended no further interventionat this time. Cognitive screening Mini Cog Score: 4 Cognitive screening reviewed and no further action needed (score 3-5) Functional Observation Was the patient's Timed Up & Go test unsteady or ? 12 seconds? No Advance Care Planning Surrogate decision maker and/or advance care plan documented Measurements BP 130/80 Pulse 76 Temp 99 Resp 16 Ht 5' 4.567 (1.64m) Wt 145 lb (65.8kg) LMP 05/22/2006 BMI 24.45 kg/(m^2). Vision Screening: Follows with optometry/ophthalmology Assessment/Plan Medicare annual wellness visit, subsequent (Z00.00) - Counseled on healthy diet and regular exercise - Fall avoidance information provided - Personalized prevention plan provided Chief Complaint Patient presents with: Medicare Wellness Exam HPI Ty Yu is a 68 year old female who presents here today for extensive exam. Patient with complex history as below. Since last visit she fell and broke R wrist/forearm. States he orthopedic surgeon told her she had brittle bones and started her on calcitriol. Otherwise doing well. Has follow up with nephrology today. Recently saw neurology. Hasn't seen gastro since last hospitalization. Past medical history, appointments, medications, allergies reviewed. Previous Medical History PAST MEDICAL HISTORY Diagnosis Date Age-related osteoporosis without current pathological fracture 06/01/2020 Anxiety 07/05/2013 Asthma diagnosed in childhood Urias's palsy Bilateral carotid artery disease (HCC) 12/15/2017 US 11/2017: 20-40% on right and 40-60% on left. Bilateral carotid artery stenosis 02/12/2021 US 11/2017: 20-40% on right and 40-60% on left. Bursitis of right hip 04/01/2013 Cataract 09/14/2021 Dr. Joaquín [facility] Chicken pox as a child Chronic midline low back pain without sciatica 08/02/[address] (HCC) 06/01/2020 Placed 2019 after colectomy due to perforated diverticulitis. 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 07/09/[address] Cunningham, stent to LAD Current moderate episode of major depressive disorder without prior episode (HCC) 07/14/2018 Current use of proton pump inhibitor 06/26/2017 Mg checked 06/2017 Diverticulosis 11/16/2013 Encounter for Medicare annual wellness exam 01/15/2021 Medical B eligibilty date 05/23/19 Date of last exam n/a Essential hypertension Ex-smoker 10/19/2014 Started at age 14 smoked up to 1 PPD. As of 12/2015 1/2 PPD or less. Quit 08/2019 Fibromyalgia 11/17/2013 Foot callus 06/01/2020 Gastroesophageal reflux disease without esophagitis 01/08/2016 Glaucoma suspect of both eyes 09/14/2021 Dr. [facility] Hiatal hernia 07/28/2017 Hip arthritis 04/01/[address] Ivy (Ortho) History of shingles 2005 Insomnia 01/08/2016 Iron deficiency anemia 07/04/[address] 11/11/2022 DPA: Son, Wilbert Carr Lumbar degenerative disc disease 12/28/[address] Arriaza Migraine without aura and without status migrainosus, not intractable 07/09/2016 Mixed hyperlipidemia Moderate pulmonary hypertension (HCC) 02/12/2021 Osteoarthritis of multiple joints 09/06/[address] Ford Continue home meds: prednisone and methotrexate Paroxysmal atrial fibrillation (HCC) 02/12/2021 RLS (restless legs syndrome) Smoker 10/19/2014 Started at age 14 smoked up to 1 PPD. As of 12/2015 1/2 PPD or less. Stage 3b chronic kidney disease (HCC) 06/02/2020 Tear of left rotator cuff 07/24/2017 Added automatically from request for surgery [id number] Type 2 diabetes mellitus without complication, without long-term current use of insulin (HCC) 12/17/2017 Unspecified dementia with behavioral disturbance 07/21/[address] Partida. He also stopped her cymbalta and started Zoloft Valvular heart disease 02/12/2021 Previous Surgical History PAST SURGICAL HISTORY Procedure Laterality Date 2D ECHO (EXEP) 08/24/2019 EF=65%, mild Freire Dysf, 1+ TI, APPENDECTOMY HX 1975 BREAST BIOPSY 07/30/2018 left vacuum assisted core needle biopsy [facility] COLONOSCOPY FLX DX W/COLLJ SPEC WHEN PFRMD 09/01/2018 Colonoscopy, repeat 10 yrs ESOPHAGOGASTRODUODENOSCOPY TRANSORAL DIAGNOSTIC 09/01/2018 EGD LAPAROSCOPIC HEMICOLECTOMY 2018 due to ruptured diverticulitis, has colostomy LAPAROSCOPY SURG CHOLECYSTECTOMY Cholecystectomy, lap LIG/TRNSXJ FLP TUBE ABDL/VAG APPR UNI/BI Tubal ligation PAST SURGICAL HISTORY OF bladder lift RECONSTRUCTION ROTATOR CUFF AVULSION CHRONIC Left 08/08/2017 Left shoulder arthroscopy, Open RCR and SAD REMV CATARACT EXTRACAP,INSERT LENS Bilateral 10/2022 STENT PLACEMENT 05/06/2013 LAD STRESS TEST 07/28/2017 normal TOTAL ABDOMINAL HYSTERECT W/WO RMVL TUBE OVARY Hysterectomy, LESA Family History FAMILY HISTORY Problem Relation Age of Onset Cancer Father Pancreatic Hypertension Mother at age 7, [place] at age 42 Coronary Artery Disease Mother 70 Lipids Mother Headache Mother Cancer Sister Non Hodgken's lymphoma Diabetes Sister Thyroid Sister No Known Problems Daughter No Known Problems Son Diabetes Brother other (Other) Brother MDS Diabetes Maternal Aunt Heart Attack Maternal Grandmother COPD Maternal Grandfather Cancer Paternal Grandmother Stroke Paternal Grandfather Patient Allergies ALLERGIES Allergen Reactions Bees Anaphylaxis Lipitor [Atorvastat* Myalgia Phenergan [Prometha* GI Upset Pravastatin Myalgia Elvlanj-Lbq-Cjt Red* Myalgia Trazodone Other: See Comments Increased urine frequency Current Medications Current Outpatient Medications on File Prior to Visit Medication Sig EPINEPHrine (EPIPEN 2-ESTEFANIA) 0.3 mg/0.3 mL auto-injector Inject 0.3 mL intramuscularly as needed. varenicline (CHANTIX) 0.5 mg (11)- 1 mg (42) tablet Take 0.5 mg by mouth once daily on Days 1 through 3, THEN 0.5 mg twice daily on Days 4 through 7, THEN 1 mg twice daily on Day 8 and thereafter [START ON 09/10/2023] varenicline (CHANTIX CONTINUING MONTH BOX) 1 mg tablet Take 1 tablet by mouth two times a day with meals. Patient should start on September 10, 2023. pioglitazone (ACTOS) 30 mg tablet Take 1 tablet by mouth once daily. scopolamine (TRANSDERM-SCOP) patch 1.5 mg/72 hr (delivers 1 mg over 3 days) Apply 1 Patch as directed every 72 hours. dilTIAZem CD (CARTIA XT) 180 mg 24 hr capsule Take 1 capsule by mouth once daily. mirtazapine (REMERON) 30 mg tablet Take 1 tablet by mouth daily at bedtime. ezetimibe (ZETIA) 10 mg tablet Take 1 tablet by mouth once daily. atorvastatin (LIPITOR) 80 mg tablet Take 1 tablet by mouth daily at bedtime. For cholesterol. Fenofibrate (LOFIBRA) 54 mg tablet Take 1 tablet by mouth once daily. magnesium oxide (MAG-OX) 400 mg (241.3 mg magnesium) tablet Take 1 tablet by mouth two times a day. cyanocobalamin (VITAMIN B-12) 500 mcg tablet Take 500 mcg by mouth twice daily. Take [address] (PROTONIX) 40 mg tablet Take 1 tablet by mouth twice daily. mometasone (NASONEX) 50 mcg/actuation nasal spray Mometasone Furoate [Nasonex] 2 SPRAY NASAL DAILY PRN For Cold Symptons December 30, 2017 Active sucralfate (CARAFATE) 1 gram tablet Take 1 tablet by mouth three times daily as needed. nitroglycerin sublingual (NITROSTAT) 0.4 mg SL tablet Dissolve 1 tablet under the tongue every 5 minutes as needed for chest pain. blood sugar diagnostic (BLOOD GLUCOSE TEST) test strip Test blood sugar(s) 1 times daily. Dx: E11.9Insulin: No memantine (NAMENDA) 5 mg tablet Take 5 mg by mouth two times a day. cholecalciferol, vitamin D3, (VITAMIN D3 ORAL) Take by mouth once daily. Ferrous Sulfate (SLOW FE) 142 mg (45 mg iron) TbER Take 1 tablet by mouth once daily. Lancets lancets Test blood sugar(s) 1 times daily. Dx: Other DM Code E11.9, Insulin: No aspirin, enteric coated (ADULT LOW DOSE ASPIRIN) 81 mg EC tablet Take 1 tablet by mouth once daily. gabapentin (NEURONTIN) 100 mg capsule Take 100 mg by mouth once daily. (Patient not taking: Reported on 09/08/2023) metFORMIN ER (GLUCOPHAGE XR) 500 mg 24 hr tablet Take 1 tablet by mouth daily with breakfast. Was stopped in Hospital end of December 2022 due to elevated Cre. (Patient not taking: Reported on 03/13/2023) Galantamine Hydrobromide (RAZADYNE) 16 mg 24 hr capsule Take 1 capsule by mouth daily with breakfast. Per Neuro Dr. Partida (Patient not taking: Reported on 01/28/2023) No current facility-administered medications on file prior to visit. Social History Social History Tobacco Use Smoking status: Some Days Packs/day: 0.50 Years: 40.00 Additional pack years: 0.00 Total pack years: 20.00 Types: Cigarettes Start date: 06/23/1968 Last attempt to quit: 05/18/2021 Years since quittin.3 Smokeless tobacco: Never Vaping Use Vaping Use: Never used Substance Use Topics Alcohol use: No Drug use: No Review of Symptoms REVIEW OF SYSTEMS GENERAL: No weight loss, malaise or fevers HEENT: No changes in hearing or vision, no nose bleeds or other nasal problems NECK: Negative for lumps, goiter, pain and significant neck swelling RESPIRATORY: Negative for cough, hemoptysis, wheezing, COPD, dyspnea or shortness of breath CARDIOVASCULAR: Negative for chest pain, leg swelling, hypertension, CHF or palpitations GI: No nausea, vomiting, or diarrhea : No history of dysuria, frequency or incontinence MUSCULOSKELETAL: see hpi SKIN: Negative for lesions, rash, and itching PSYCH: Negative for sleep disturbance, mood disorder and recent psychosocial stressors HEMATOLOGY/LYMPHOLOGY: Negative for prolonged bleeding, bruising easily or swollen nodes ENDOCRINE: Negative for cold or heat intolerance, polyuria, polydipsia and goiter NEURO: No history of headaches, syncope, paralysis, seizures or tremors EXAM: BP 130/80 (BP Site: Left Arm, BP Position: Sitting, BP Cuff Size: Regular Adult) Pulse 76 Temp 37.2 C (99 F) Resp 16 Ht 164 cm (5' 4.57) Wt 65.8 kg (145 lb) LMP 05/22/2006 BMI 24.45 kg/m General Appearance: Well appearing, alert, in no acute distress, well-hydrated, well nourished.. Skin: patient declined. Head: Normocephalic, no masses, lesions, tenderness or abnormalities. Eyes: Anicteric sclera. Pupils are equally round and reactive to light. Extraocular movements are intact. . Ears: External ears normal, canals clear. Nose/Sinuses: Nares normal, septum midline, mucosa normal, no drainage or sinus tenderness. Oropharynx: Lips, mucosa, and tongue normal, teeth and gums normal, oropharynx normal. Neck: Supple, no adenopathy; thyroid symmetric, normal size, no bruits. Lungs: Lungs clear to auscultation. No wheezing, rhonchi, rales.. Heart: RRR without murmur, gallop, or rubs. No ectopy. Abdomen: Normal abdominal exam, Abdomen soft, non-tender. Bowel sounds normal. No masses, organomegaly. Extremities: No deformities, edema, skin discoloration, clubbing or cyanosis. Good capillary refill. . Peripheral Pulses: Normal. Neurologic: Gait normal. Reflexes normal and symmetric. Sensation grossly intact.. Feet:Shoes and socks removed, No deformities, ulcers, calluses, trace DP distal pulses, sensitive to 10 gm monofilament, and vibratory perception normal Health Maintenance List RSV Vaccine(1 - 1-dose 60+ series) Never done Bone Density Screening Never done Mammogram Screening due on 05/23/2021 BP Controlled (<130/80) due on 06/01/2021 Diabetic Foot Exam due on 08/02/2022 Dilated Retinal Exam due on 09/14/2022 Influenza Vaccine(1) due on 02/21/2023 Lung Cancer Screening due on 03/11/2023 Advance Directive Discussion due on 06/23/2023 Covid-19 Vaccine( season) due on 09/07/2024 Urine Albumin:Creatinine Ratio due on 11/12/2023 HbA1C due on 11/27/2023 Serum Creatinine due on 01/08/2024 Annual PCP Team Chronic Disease Visit due on 01/29/2024 LDL Cholesterol due on 05/28/2024 Hemoglobin/Hematocrit due on 05/28/2024 DTaP,Tdap,Td Vaccine(2 - Td or Tdap) due on 12/30/2027 Colorectal Cancer Screening due on 02/20/2030 Shingrix Vaccine Completed Pneumococcal Vaccine: 65+ Completed Hepatitis C Screening Discontinued Data reviewed ASSESSMENT/PLAN: 1. Encounter for Medicare annual wellness exam - ICD9: V70.0, ICD10: Z00.00 (primary diagnosis) - Counseled on healthy diet and regular exercise - Calcium intake with supplements or by diet of 1000 mg/day for under 50, 1200- 1500 mg/day for 50+ - Discussed need and benefit for weight loss. BMI 24.45 kg/(m^2) - Mammogram ordered - exam recommended once yearly - Bone mineral density ordered 2. Encounter for immunization - ICD9: V03.89, ICD10: Z23 - INFLUENZA VACCINE, PRSV FREE, AGE 65+ YR, HIGH DOSE, QUADRIVALENT (FLUZONE HIGH-DOSE) 4. Asymptomatic menopause - ICD9: V49.81, ICD10: Z78.0 5. Type 2 diabetes mellitus without complication, without long-term current use of insulin (HCC) - ICD9: 250.00, ICD10: E11.9 Await labs - LANCETS - HGB A1C 6. Asymptomatic postmenopausal status - ICD9: V49.81, ICD10: Z78.0 Set up bone density - DXA-AXIAL SKELETON - BD DXA TRABECULAR BONE SCORE (TBS) 7. Insomnia, unspecified type - ICD9: 780.52, ICD10: G47.00 stable 8. Migraine without aura and without status migrainosus, not intractable - ICD9: 346.10, ICD10: G43.009 stable 9. 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- ICD9: 414.01, ICD10: I25.10 Cont with cardio 10. Essential hypertension - ICD9: 401.9, ICD10: I10 - Controlled - Continue current medications - Recommend home blood pressure monitoring, to bring results to next visit - Encouraged sodium restriction, DASH or Mediterranean diet - Recommend regular aerobic exercise 11. Mixed hyperlipidemia - ICD9: 272.2, ICD10: E78.2 - Control undetermined, due for labs - Counseled on healthy diet and regular exercise - LIPID PANEL, NONFASTING 12. Paroxysmal atrial fibrillation (HCC) - ICD9: 427.31, ICD10: I48.0 Stable Cont with cardio 13. Stage 3b chronic kidney disease (HCC) - ICD9: 585.3, ICD10: N18.32 - eGFR: 31 Keep follow up with renal - BASIC METABOLIC PNL 14. Medication management - ICD9: V58.69, ICD10: Z79.899 15. Age-related osteoporosis without current pathological fracture - ICD9: 733.01, ICD10: M81.0 - DXA-AXIAL SKELETON - BD DXA TRABECULAR BONE SCORE (TBS) - VITAMIN D 25 HYDROXY 16. Schatzki's ring - ICD9: 750.3, ICD10: K22.2 Cont with gastro 17. Moderate pulmonary hypertension (HCC) - ICD9: 416.8, ICD10: I27.20 Cont with cardio 18. Gastroesophageal reflux disease without esophagitis - ICD9: 530.81, ICD10: K21.9 stable 19. Current moderate episode of major depressive disorder without prior episode (HCC) - ICD9: 296.22, ICD10: F32.1 stable 20. Dementia with behavioral disturbance (HCC) - ICD9: 294.21, ICD10: F03.918 Stable Cont with neuro 21. Bilateral carotid artery stenosis - ICD9: 433.10, 433.30, ICD10: I65.23 Stable. 22. Diabetic eye exam ([facility]) - ICD9: V72.0, 250.00, ICD10: Z01.00, E11.9 Will attempt to get last DM eye exam 23. Living will in place - ICD9: V49.89, ICD10: Z78.9 Patient to get us updated copy. Heaven Garg PA-C documented in this encounterL[facility]03-18-2024 Instructions* Patient Instructions* Heaven Garg PA-C - 09/08/2023 12:50 PM EDT BONE MINERAL DENSITY PATIENT INSTRUCTIONS Bone mineral density testing measures the amount of calcium in certain parts of your bones. This information determines how strong your bones are. The test is used to detect osteoporosis, a disease in which the bone's mineral content and density are low, increasing a person's risk of fractures. Thelumbar spine (lower back) and the hip are the skeletal sites usually examined. For the test, remember that: 1. You cannot take this test if you are . 2. Eat a normal diet on the day of the test. 3. Take your medications as you normally would. 4. DO NOT take calcium supplements (such as Tums) for 24 hours before the test. 5. On the day of the test, leave valuables (jewelry or credit cards) at home. 6. The test should be performed prior to oral, rectal or IV contrast studies, or at least 7 days after any of these studies. For the test, you may be asked to wear a hospital gown. You will lie on your back, on a padded table, in a comfortable position. Generally, you can resume your usual activities immediately. Screening schedule The following prevention plan is recommended: RSV Vaccine(1 - 1-dose 60+ series) Never done Bone Density Screening Never done Mammogram Screening due on 05/23/2021 BP Controlled (<130/80) due on 06/01/2021 Diabetic Foot Exam due on 08/02/2022 Dilated Retinal Exam due on 09/14/2022 Influenza Vaccine(1) due on 02/21/2023 Lung Cancer Screening due on 03/11/2023 Advance Directive Discussion due on 06/23/2023 WHAT YOU CAN DO TO PREVENT FALLS Many falls can be prevented. By making some changes, you can lower your chances of falling. Four things YOU can do to prevent falls for you* and your caregiver 1. Begin a regular exercise program Exercise is one of the most important ways to lower your chances of falling. It makes you stronger and helps you feel better. Exercises that improve balance and coordination (like Raulito Chi) are the most helpful. Lack of exercise leads to weakness and increases your chances of falling. Ask your doctor or health care provider about the best type of exercise program for you. 2. Have your health care provider review your medicines Have your doctor or pharmacist review all the medicines you take, even zyak-ccy-vpxagnb medicines. As you get older, the way medicines work in your body can change. Some medicines, or combinations of medicines, can make you sleepy or dizzy andcan cause you to fall. 3. Have your vision checked Have your eyes checked by an eye doctor at least once a year. You may be wearing the wrong glasses or have a condition like glaucoma or cataracts that limits your vision. Poor vision can increase your chances of falling. 4. Make your home safer About half of all falls happen at home. To make your home safer: Remove things you can trip over (like papers, books, clothes, and shoes) from stairs and places where you walk. Remove small throw rugs or use double-sided tape to keep the rugs from slipping. Keep items you use often in cabinets you can reach easily without using a step stool. Have grab bars put in next to your toilet and in the tub or shower. Use non-slip mats in the bathtub and on shower floors. Improve the lighting in your home. As you get older, you need brighter lights to see well. Hang light-weight curtains or shades to reduce glare. Have handrails and lights put in on all staircases. Wear shoes both inside and outside the house. Avoid going barefoot or wearing slippers. For more information, contact: Centers for Disease Control and Prevention www.cdc.gov/injury * This information may not apply if you have certain medical conditions. documented in this encounterL[facility]03-15-2024 Miscellaneous Notes* Telephone Encounter - Heaven Garg PA-C - 09/05/2023 12:22 PM EDT Prescription denied. Patient has cancelled the last 7 times she has been scheduled. Will need to beseen for refill. Currently scheduled for 09/07 will discuss with her then. . * Telephone Encounter - Isaiah Wise RN - 09/05/2023 8:46 AM EDT Patient has been identified by name and date of : Yes, Provider Radha Date 09-05-23 Time 8:47 am Patient phones for refill(s): Requested Prescriptions Pending Prescriptions Disp Refills mirtazapine (REMERON) 30 mg tablet 90 tablet 0 Sig: Take 1 tablet by mouth daily at bedtime. Fenofibrate (LOFIBRA) 54 mg tablet 90 tablet 0 Sig: Take 1 tablet by mouth once daily. Date of last office visit in primary care: 01/28/2023 Date of next office visit in primary care: 09/08/2023 Please advise. Thank you. Isaiah Wise, CAROLIN. documented in this encounterL[facility]03-14-2024 History of Present illness Narrative* Clarita Bender LPN - 09/04/2023 12:13 PM EDT Scan on 09/02/2023 9:01 AM by ProviderAly PA-C: X-ray Scan on 09/01/2023 4:20 PM by ProviderAly PA-C: Chemistry Scan on 09/01/2023 3:37 PM by ProviderAly PA-C: Hematology documented in this encounterLancaster [facility]03-14-2024 History of Present illness Narrative* Zach Donovan RN - 09/04/2023 9:46 AM EDT [facility] Telephonic Outreach Provider Action/RUPAL Salehx-smoking cessation Contacted for: Routine Telephonic Outreach Contact made with patient: No, left message. Zach Donovan RN September 04, 2023 9:47 AM * Zach Donovan RN - 09/03/2023 8:25 AM EDT [facility] Telephonic Outreach Provider Action/FYI [employer] for smoking cessation Contacted for: Routine Telephonic Outreach Contact made with patient: No, left message. Zach Donovan RN September 03, 2023 10:49 AM documented in this encounterLanc[facility]02-21-2024 Miscellaneous Notes* Telephone Encounter - Tonie Turpin LPN - 08/13/2023 3:00 PM EST Pt notified rx has been sent in. Tonie Turpin LPN * Telephone Encounter - Heaven Garg PA-C - 08/13/2023 2:40 PM EST The following approved medication requests have been transmitted electronically. Requested Prescriptions Signed Prescriptions Disp Refills varenicline (CHANTIX) 0.5 mg (11)- 1 mg (42) tablet 53 tablet 0 Sig: Take 0.5 mg by mouth once daily on Days 1 through 3, THEN 0.5 mg twice daily on Days 4 through7, THEN 1 mg twice daily on Day 8 and thereafter Authorizing Provider: HEAVEN GARG varenicline (CHANTIX CONTINUING MONTH BOX) 1 mg tablet 60 tablet 1 Sig: Take 1 tablet by mouth two times a day with meals. Patient should start on September 10, 2023. Authorizing Provider: HEAVEN GARG PA-C * Telephone Encounter - Uyen Witt RN - 08/13/2023 1:55 PM EST Patient returns call and reports that she would like to give Chantix another try as she is really wanting to quit and the symptoms were mild nausea and general not feeling well. Pended for review. Uyen Witt RN * Telephone Encounter - Joelle Pruett RN - 08/13/2023 9:35 AM EST Pt called and is notified of providers message and instructions. Pt voices understanding. I told Ptto call back and let us know if they will cover the gum or lozenges. Joelle Pruett RN * Telephone Encounter - Magan Amador MD - 08/12/2023 4:06 PM EST Let patient know there are no other medication options. Advise her to check with her insurance to see if they cover nicotine gum or lozenges? If so yet me know which one. If not she should pick pack worker one of the two and try them. Ultimately none of the aids to quit will help if the patient does not have the strong desire to quit. * Telephone Encounter - Carmelita Naik LPN - 08/12/2023 2:39 PM EST Pt wants to quit smoking & asking what is available for her to try besides the following: Can'tuse patches since she is allergic to the adhesive, chantix made her ill & wellbutrin was not effective. Please advise. Pt uses [facility] in [place]. Carmelita Naik LPN documented in this encounter[facility]02-[facility] History of Present illness Narrative* Zach Donovan RN - 07/31/2023 9:05 AM EST CDM Telephonic Outreach Provider Action/FYI HTN/DM Patient states her kidneys failed and she was admitted to [facility]. Picker Box Operator recommending 72 oz of water. Urine light yellow Good amounts. Follows with Neurologist in [place] -one for tremors and one for memory Discontinued at hospital Had follow up with Neurologist He prescribed a new medication that she could not tolerate Off all medication and has follow up in August. Has follow up 09/07 with PCP and Picker Box Operator Has problem sleeping states neurologist prescribed Amitriptyline Seems to be helping with sleep. Encouraged to keep follow up appointments Advised to keep PCP office aware of medication changes so medication list remains current. Contacted for: Routine Telephonic Outreach Contact made with patient: Yes Patient identified by name and date of . Discussed care with patient Are you experiencing any new or worsening symptoms you need to talk about today? Yes Based on signal fitter, the following disposition is advised: No symptoms or symptoms present, not severe. Routed to: No Action Needed ROYAL Education Provided this Outreach: Rosalind Donovan RN July 31, 2023 3:28 PM documented in this encounterL[facility]12-19-2023 Miscellaneous Notes* Telephone Encounter - Anay Gore Ma - 06/10/2023 10:44 AM EST Patient has been identified by name and date of : Yes, Provider Magan Amador MD Date June 10, 2023 Time 10:44 AM Patient phones for refill(s): Requested Prescriptions Pending Prescriptions Disp Refills dilTIAZem CD (CARTIA XT) 180 mg 24 hr capsule 90 capsule 1 Sig: Take 1 capsule by mouth once daily. mirtazapine (REMERON) 30 mg tablet 90 tablet 0 Sig: Take 1 tablet by mouth daily at bedtime. ezetimibe (ZETIA) 10 mg tablet 30 tablet 5 Sig: Take 1 tablet by mouth once daily. pioglitazone (ACTOS) 30 mg tablet 30 tablet 5 Sig: Take 1 tablet by mouth once daily. atorvastatin (LIPITOR) 80 mg tablet 90 tablet 1 Sig: Take 1 tablet by mouth daily at bedtime. For cholesterol. Fenofibrate (LOFIBRA) 54 mg tablet 90 tablet 0 Sig: Take 1 tablet by mouth once daily. Date of last office visit in primary care: 01/28/23 Date of next office visit in primary care: 07/15/23 Last 2 Encounter Wt Readings: Date: Wt: 01/28/2023 68.5 kg (151 lb) 01/07/2023 65.8 kg (145 lb) Previous labs/tests for medication: Diabetes: Hemoglobin A1C (%) Date Value 05/28/2023 6.2 11/11/2022 6.3 08/12/2022 6.6 08/02/2021 6.7 01/15/2021 6.4 Cholesterol: Triglycerides (mg/dL) Date Value 09/18/2020 128 HDL Cholesterol Date Value 05/28/2023 57 07/13/2018 46 mg/dL HDL Cholesterol, Nonfasting (mg/dL) Date Value 08/02/2021 49 LDL Cholesterol Date Value 05/28/2023 35 07/13/2018 80 mg/dL LDL Cholesterol, Nonfasting (mg/dL) Date Value 08/02/2021 38 ALT (U/L) Date Value 06/01/2020 14 ALT (SGPT) (U/L) Date Value 05/28/2023 10 Non HDL Cholesterol, Nonfasting (mg/dL) Date Value 11/11/2022 74 08/02/2021 73 Blood Pressure: BUN Date Value 05/28/2023 26 MG/DL 02/12/2021 13 mg/dL Sodium (mmol/L) Date Value 02/12/2021 140 NA (mmol/L) Date Value 05/28/2023 142 Last 1 Encounter BP Readings: Date: BP: 01/28/2023 132/82 Please advise. Thank you. Anay Gore Ma. * Telephone Encounter - Lupe Ortega - 06/10/2023 9:37 AM EST Patient has been identified by name and date of : Yes, Provider Magan Amador MD Date 06/10/2023 Time 9:41 am Patient phones for refill(s): Requested Prescriptions Pending Prescriptions Disp Refills dilTIAZem CD (CARTIA XT) 180 mg 24 hr capsule 90 capsule 1 Sig: Take 1 capsule by mouth once daily. mirtazapine (REMERON) 30 mg tablet 90 tablet 0 Sig: Take 1 tablet by mouth daily at bedtime. ezetimibe (ZETIA) 10 mg tablet 30 tablet 5 Sig: Take 1 tablet by mouth once daily. pioglitazone (ACTOS) 30 mg tablet 30 tablet 5 Sig: Take 1 tablet by mouth once daily. atorvastatin (LIPITOR) 80 mg tablet 90 tablet 1 Sig: Take 1 tablet by mouth daily at bedtime. For cholesterol. Fenofibrate (LOFIBRA) 54 mg tablet 90 tablet 0 Sig: Take 1 tablet by mouth once daily. Date of last office visit in primary care: 01/28/2023 Date of next office visit in primary care: 07/15/2023 Last 2 Encounter Wt Readings: Date: Wt: 01/28/2023 68.5 kg (151 lb) 01/07/2023 65.8 kg (145 lb) Please advise. Thank you. Lupe Buitrago. documented in this encounterL[facility]12-08-2023 Miscellaneous Notes* Telephone Encounter - Irma Alberto Ma - 05/30/2023 10:23 AM EST Office received outside lab results ordered by Dr. Partida and PCP. See scanning below. Irma Emory Manzanares [facility] External Labs - Miscellaneous Lab [ID [id number]] documented in this encounterLanc[facility]11-20-2023 Miscellaneous Notes* Telephone Encounter - Claudine Shelley OCCA - 05/12/2023 1:08 PM EST Lab orders printed and mailed to patients address as instructed below. TC to patient with no answer. Left VM informing patient of labs mailed. ASTON Gross * Telephone Encounter - Magan Amador MD - 05/12/2023 12:36 PM EST Lab placed. Please print off and mail to patient. * Telephone Encounter - Anay Gore Ma - 05/12/2023 9:50 AM EST Do you want any labs? * Telephone Encounter - Rosemary Garcia - 05/12/2023 9:01 AM EST Patient is scheduled for Medicare Wellness and requesting lab orders be mailed to home address to complete prior to this visit. documented in this encounterLanc[facility]11-07-2023 History of Present illness Narrative* Tonie Turpin LPN - 04/29/2023 9:31 AM EST Scan on 04/28/2023 6:24 AM by ProviderAly PA-C: X-ray documented in this [facility]10-30-2023 History of Present illness Narrative* Zach Donovan RN - 04/21/2023 9:34 AM EDT [facility] Telephonic Outreach Provider Action/FYI Contacted for: Routine Telephonic Outreach Contact made with patient: No, left message. Zach Donovan RN April 22, 2023 3:17 PM documented in this [facility]10-25-2023 History of Present illness Narrative* Tonie Turpin LPN - 04/16/2023 7:16 AM EDT Scan on 04/15/2023 8:44 AM by Aly Aguirre PA-C: X-ray documented in this encounterL[facility]10-20-2023 History of Present illness Narrative* Tonie Turpin LPN - 04/11/2023 9:56 AM EDT Scan on 04/11/2023 9:27 AM by Aly Aguirre PA-C: X-ray documented in this encounterL[facility]10-03-2023 Miscellaneous Notes* Telephone Encounter - Carola Trevino LPN - 03/25/2023 4:03 PM EDT Last OV: 01/28/23 , Next scheduled appt: 05/12/23 Patient has been identified by name and date of : Yes Requested Prescriptions Pending Prescriptions Disp Refills Fenofibrate (LOFIBRA) 54 mg tablet 90 tablet 0 Sig: Take 1 tablet by mouth once daily. RX INSTRUCTIONS: Patient aware RX will be sent to pharmacy. No need to notify patient. Carola Trevino LPN documented in this encounterL[facility]09-26-2023 History of Present illness Narrative* Zach Donovan RN - 03/18/2023 9:27 AM EDT [facility] Telephonic Outreach Provider Action/FYI Contacted for: Routine Telephonic Outreach Contact made with patient: No, left message. Zach Donovan RN March 18, 2023 1:22 PM documented in this encounterLanc[facility]09-21-2023 History of Present illness Narrative* Brain Ivy MD - 03/13/2023 10:36 AM EDT Brain Ivy MD Department of Orthopaedics Orthopaedics [address] [place] [id number] Dept: [phone] Dept Mar 13, 2023 CHIEF COMPLAINT: Established Patient of the Left Shoulder HPI Patient presents with: Left Shoulder - Established Patient Patient fell and broke her right wrist on 02/21/2023. Today's visit is for her left shoulder. The pain gets worse with touch. The pain does not radiate. States she was in the hospital in October 2022 and her shoulder started hurting after a heart cath. Right hand dominate. Is not currently employed. [facility] ROOMING INTAKE FLOWSHEET DATA Pain Pain Level: 7 Pain Location: Shoulder-Left Description: Aching Duration Amount of Time: 4 (Since hospitalization at [facility] in October 2022) Duration Units: Months Frequency: Continuous Intervention/Comfort measure: Medication, Reposition, Heat ASSESSMENT: S52.501A Closed fracture of distal end of right radius, unspecified fracture morphology, initial encounter (primary encounter diagnosis) PLAN: Wrist doing well. Likely, impingement on the left shoulder. Ms. Ty Yu was advised as to contrast therapies and/or to take analgesics/anti-inflammatories as needed and all contraindications were reviewed. OBJECTIVE: Ms. Ty Yu is a pleasant 67 year old in no apparent distress. Gen:LMP 05/22/2006 nl development, non obese, no deformities ENT: Normocephalic, normal hearing, moist mucosa CV: Pulses:Radial= 2+ and symmetric, capillary refill < 2 secs, no peripheral edema/varicosities Skin: no rash, bruising or lesions. Good turgor. Psych: cooperative and appropriate, alert and oriented x 3, good mood and affect. Musculoskeletal: Mild impingement signs. Imaging: IMPRESSION: Distal radial fracture Vending Machine Attendant: PSCB Transcribe Date/Time: Mar 15 2023 8:50A Dictated by : JOAQUÍN VALDIVIA MD This examination was interpreted and the report reviewed and electronically signed by: JOAQUÍN VALDIVIA MD on Mar 15 2023 8:51AM EST Results-Findings * * *Final Report* * * DATE OF EXAM: Mar 13 2023 11:36AM [id number] - XR WRIST 3V PA/LAT/OBL RT / PROCEDURE REASON: Closed fracture of distal end of right radius, unspecified fracture morphology, * * * * Physician Interpretation * * * * PROCEDURE: Right wrist INDICATION: Closed fracture of distal end of right radius, unspecified fracture morphology, initial encounter .Fracture follow up. Through cast per ordering provider. TECHNIQUE: XR WRIST 3V PA/LAT/OBL RT COMPARISON: None FINDINGS: Cast material obscures bony detail. Impacted distal radial fracture with mild dorsal displacement of the distal fragment. There appears to be intra-articular extension. 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 Supporting Subjective Information Below: Past Surgical History: PAST SURGICAL HISTORY Procedure Laterality Date 2D ECHO (EXEP) 08/24/2019 EF=65%, mild Freire Dysf, 1+ TI, APPENDECTOMY HX 1975 BREAST BIOPSY 07/30/2018 left vacuum assisted core needle biopsy [facility] COLONOSCOPY FLX DX W/COLLJ SPEC WHEN PFRMD 09/01/2018 Colonoscopy, repeat 10 yrs ESOPHAGOGASTRODUODENOSCOPY TRANSORAL DIAGNOSTIC 09/01/2018 EGD LAPAROSCOPIC HEMICOLECTOMY 2019 due to ruptured diverticulitis, has colostomy LAPAROSCOPY SURG CHOLECYSTECTOMY Cholecystectomy, lap LIG/TRNSXJ FLP TUBE ABDL/VAG APPR UNI/BI Tubal ligation PAST SURGICAL HISTORY OF bladder lift RECONSTRUCTION ROTATOR CUFF AVULSION CHRONIC Left 08/08/2017 Left shoulder arthroscopy, Open RCR and SAD REMV CATARACT EXTRACAP,INSERT LENS Bilateral 10/2022 STENT PLACEMENT 05/06/2013 LAD STRESS TEST 07/28/2017 normal TOTAL ABDOMINAL HYSTERECT W/WO RMVL TUBE OVARY Hysterectomy, LESA Medications: Current Outpatient Medications Medication Sig cyanocobalamin (VITAMIN B-12) 500 mcg tablet Take 500 mcg by mouth twice daily. Take 2 tablets daily gabapentin (NEURONTIN) 100 mg capsule Take 100 mg by mouth once daily. pioglitazone (ACTOS) 30 mg tablet Take 1 tablet by mouth once daily. pantoprazole DR (PROTONIX) 40 mg tablet Take 1 tablet by mouth twice daily. atorvastatin (LIPITOR) 80 mg tablet Take 1 tablet by mouth daily at bedtime. For cholesterol. mirtazapine (REMERON) 30 mg tablet Take 1 tablet by mouth daily at bedtime. mometasone (NASONEX) 50 mcg/actuation nasal spray Mometasone Furoate [Nasonex] 2 SPRAY NASAL DAILY PRN For Cold Symptons December 30, 2017 Active sucralfate (CARAFATE) 1 gram tablet Take 1 tablet by mouth three times daily as needed. Magnesium 250 mg tab Take 1 tablet by mouth twice daily. ezetimibe (ZETIA) 10 mg tablet Take 1 tablet by mouth once daily. dilTIAZem CD (CARTIA XT) 180 mg 24 hr capsule Take 1 capsule by mouth once daily. nitroglycerin sublingual (NITROSTAT) 0.4 mg SL tablet Dissolve 1 tablet under the tongue every 5 minutes as needed for chest pain. EPINEPHrine (EPIPEN 2-ESTEFANIA) 0.3 mg/0.3 mL auto-injector Inject 0.3 mL intramuscularly as needed. blood sugar diagnostic (BLOOD GLUCOSE TEST) test strip Test blood sugar(s) 1 times daily. Dx: E11.9Insulin: No cholecalciferol, vitamin D3, (VITAMIN D3 ORAL) Take by mouth once daily. Ferrous Sulfate (SLOW FE) 142 mg (45 mg iron) TbER Take 1 tablet by mouth once daily. Lancets lancets Test blood sugar(s) 1 times daily. Dx: Other DM Code E11.9, Insulin: No aspirin, enteric coated (ADULT LOW DOSE ASPIRIN) 81 mg EC tablet Take 1 tablet by mouth once daily. Fenofibrate (LOFIBRA) 54 mg tablet Take 1 tablet by mouth once daily. metFORMIN ER (GLUCOPHAGE XR) 500 mg 24 hr tablet Take 1 tablet by mouth daily with breakfast. Was stopped in Hospital end of December 2022 due to elevated Cre. (Patient not taking: Reported on 03/13/2023) Galantamine Hydrobromide (RAZADYNE) 16 mg 24 hr capsule Take 1 capsule by mouth daily with breakfast. Per Neuro Dr. Partida (Patient not taking: Reported on 01/28/2023) memantine (NAMENDA) 5 mg tablet Take 5 mg by mouth twice daily. (Patient not taking: Reported on 01/28/2023) No current facility-administered medications for this visit. Allergies: Bees, Lipitor [Atorvastatin Calcium], Phenergan [Promethazine Hcl], Pravastatin, Acrgser-Nhw-Igx Reductase Inhibitors, and Trazodone ROS: General (negative for fatigue, malaise, weight loss/gain) HEENT (negative for headache, earache, recent vision changes, sinus pain, sore throat) Respiratory (no recent shortness of breath, hemoptysis) CV (negative for chest tightness, palpitations) Musculoskeletal (see HPI) Psych (no depression, anxiety) Brain Ivy MD documented in this encounterL[facility]08-23-2023 History of Present illness Narrative* Zach Donovan RN - 02/12/2023 9:20 AM EDT CDM Telephonic Outreach Provider Action/FYI Phone rings-picks up-disconnects Attempted x 2 Contacted for: Routine Telephonic Outreach Contact made with patient: No, unable to leave message. Will reattempt call Zach Donovan RN February 12, 2023 2:52 PM documented in this encounterLancaster [facility]08-08-2023 History of Present illness Narrative* Magan Amador MD - 01/28/2023 11:14 AM EDT Chief Complaint Patient presents with: Hospital F/U HPI Ty Yu is a 67 year old female who presents here today for hospital follow up. Office visit - hospital follow up - Patient was seen shortly after a hospital f/u for chest pain and CINDY in early December. A cardiac cath revealed nonocclusive disease. When she was discharged her Cre then was 1.94. She had some labs checked and on 01/08/2023 the Cre was at 2.97 and patient was advised to return to the hospital. Because,patient lives in [facility] and prefers to have Tx in [place] sometimes there is a delay in getting the care. Patient was admitted and rehydrated again. She just saw renal this morning and there has been no change in Tx. She is to try to get about 64 oz of water a day. She had been started on Gabapentin due to the pain from the stomach ulcers and is only needing one a day and just as needed. She has not needed the scopolamine patch for nausea any longer. Being on the Protonix at 40 mg twice a day has helped. She will f/u with Dr. Brian in [place] in the future. Her metformin was stopped due to the CINDY. Her Namenda and Razadyne that was prescribed by Neuro where also stopped by hospitalist during staydue to her CINDY. Past medical history, appointments, medications, allergies reviewed. Previous Medical History PAST MEDICAL HISTORY Diagnosis Date Age-related osteoporosis without current pathological fracture 06/01/2020 Anxiety 07/05/2013 Asthma diagnosed in childhood Urias's palsy Bilateral carotid artery disease (HCC) 12/15/2017 US 11/2017: 20-40% on right and 40-60% on left. Bilateral carotid artery stenosis 02/12/2021 US 11/2017: 20-40% on right and 40-60% on left. Bursitis of right hip 04/01/2013 Cataract 09/14/2021 Dr. Joaquín [facility] Chicken pox as a child Chronic midline low back pain without sciatica 08/02/[address] (HCC) 06/01/2020 Placed 2019 after colectomy due to perforated diverticulitis. 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 07/09/[address] Cunningham, stent to LAD Current moderate episode of major depressive disorder without prior episode (HCC) 07/14/2018 Current use of proton pump inhibitor 06/26/2017 Mg checked 06/2017 Diverticulosis 11/16/2013 Encounter for Medicare annual wellness exam 01/15/2021 Medical B eligibilty date 05/23/19 Date of last exam n/a Essential hypertension Ex-smoker 10/19/2014 Started at age 14 smoked up to 1 PPD. As of 12/2015 1/2 PPD or less. Quit 08/2019 Fibromyalgia 11/17/2013 Foot callus 06/01/2020 Gastroesophageal reflux disease without esophagitis 01/08/2016 Glaucoma suspect of both eyes 09/14/2021 Dr[facility] Hiatal hernia 07/28/2017 Hip arthritis 04/01/[address] Ivy (Ortho) History of shingles 2005 Insomnia 01/08/2016 Iron deficiency anemia 07/04/[address] 11/11/2022 DPA: Son, Wilbert Carr Lumbar degenerative disc disease 12/28/[address] Arriaza Migraine without aura and without status migrainosus, not intractable 07/09/2016 Mixed hyperlipidemia Moderate pulmonary hypertension (HCC) 02/12/2021 Osteoarthritis of multiple joints 09/06/[address] Ford Continue home meds: prednisone and methotrexate Paroxysmal atrial fibrillation (HCC) 02/12/2021 RLS (restless legs syndrome) Smoker 10/19/2014 Started at age 14 smoked up to 1 PPD. As of 12/2015 1/2 PPD or less. Stage 3b chronic kidney disease (HCC) 06/02/2020 Tear of left rotator cuff 07/24/2017 Added automatically from request for surgery [id number] Type 2 diabetes mellitus without complication, without long-term current use of insulin (HCC) 12/17/2017 Unspecified dementia with behavioral disturbance 07/21/[address] Partida. He also stopped her cymbalta and started Zoloft Valvular heart disease 02/12/2021 Previous Surgical History PAST SURGICAL HISTORY Procedure Laterality Date 2D ECHO (EXEP) 08/24/2019 EF=65%, mild Freire Dysf, 1+ TI, APPENDECTOMY HX 1975 BREAST BIOPSY 07/30/2018 left vacuum assisted core needle biopsy [facility] COLONOSCOPY FLX DX W/COLLJ SPEC WHEN PFRMD 09/01/2018 Colonoscopy, repeat 10 yrs ESOPHAGOGASTRODUODENOSCOPY TRANSORAL DIAGNOSTIC 09/01/2018 EGD LAPAROSCOPIC HEMICOLECTOMY 2019 due to ruptured diverticulitis, has colostomy LAPAROSCOPY SURG CHOLECYSTECTOMY Cholecystectomy, lap LIG/TRNSXJ FLP TUBE ABDL/VAG APPR UNI/BI Tubal ligation PAST SURGICAL HISTORY OF bladder lift RECONSTRUCTION ROTATOR CUFF AVULSION CHRONIC Left 08/08/2017 Left shoulder arthroscopy, Open RCR and SAD REMV CATARACT EXTRACAP,INSERT LENS Bilateral 10/2022 STENT PLACEMENT 05/06/2013 LAD STRESS TEST 07/28/2017 normal TOTAL ABDOMINAL HYSTERECT W/WO RMVL TUBE OVARY Hysterectomy, LESA Family History FAMILY HISTORY Problem Relation Age of Onset Cancer Father Pancreatic Hypertension Mother at age 7, [place] at age 42 Coronary Artery Disease Mother 70 Lipids Mother Headache Mother Cancer Sister Non Hodgken's lymphoma Diabetes Sister Thyroid Sister No Known Problems Daughter No Known Problems Son Diabetes Brother other (Other) Brother MDS Diabetes Maternal Aunt Heart Attack Maternal Grandmother COPD Maternal Grandfather Cancer Paternal Grandmother Stroke Paternal Grandfather Patient Allergies ALLERGIES Allergen Reactions Bees Anaphylaxis Lipitor [Atorvastat* Myalgia Phenergan [Prometha* GI Upset Pravastatin Myalgia Ljlhark-Hlq-[facility] Red* Myalgia Trazodone Other: See Comments Increased urine frequency Current Medications Current Outpatient Medications on File Prior to Visit Medication Sig pantoprazole DR (PROTONIX) 40 mg tablet Take 1 tablet by mouth twice daily. atorvastatin (LIPITOR) 80 mg tablet Take 1 tablet by mouth daily at bedtime. For cholesterol. metFORMIN ER (GLUCOPHAGE XR) 500 mg 24 hr tablet Take 1 tablet by mouth daily with breakfast. Fenofibrate (LOFIBRA) 54 mg tablet Take 1 tablet by mouth once daily. mirtazapine (REMERON) 30 mg tablet Take 1 tablet by mouth daily at bedtime. mometasone (NASONEX) 50 mcg/actuation nasal spray Mometasone Furoate [Nasonex] 2 SPRAY NASAL DAILY PRN For Cold Symptons December 30, 2017 Active sucralfate (CARAFATE) 1 gram tablet Take 1 tablet by mouth three times daily as needed. Magnesium 250 mg tab Take 1 tablet by mouth twice daily. ezetimibe (ZETIA) 10 mg tablet Take 1 tablet by mouth once daily. dilTIAZem CD (CARTIA XT) 180 mg 24 hr capsule Take 1 capsule by mouth once daily. nitroglycerin sublingual (NITROSTAT) 0.4 mg SL tablet Dissolve 1 tablet under the tongue every 5 minutes as needed for chest pain. EPINEPHrine (EPIPEN 2-ESTEFANIA) 0.3 mg/0.3 mL auto-injector Inject 0.3 mL intramuscularly as needed. blood sugar diagnostic (BLOOD GLUCOSE TEST) test strip Test blood sugar(s) 1 times daily. Dx: E11.9Insulin: No Galantamine Hydrobromide (RAZADYNE) 16 mg 24 hr capsule Take 1 capsule by mouth daily with breakfast. Per Neuro Dr. Partida (Patient taking differently: Take 16 mg by mouth daily with breakfast. Per Neuro Dr. Partida, taking in liquid form due to colostomy) memantine (NAMENDA) 5 mg tablet Take 5 mg by mouth twice daily. cholecalciferol, vitamin D3, (VITAMIN D3 ORAL) Take by mouth once daily. Ferrous Sulfate (SLOW FE) 142 mg (45 mg iron) TbER Take 1 tablet by mouth once daily. Lancets lancets Test blood sugar(s) 1 times daily. Dx: Other DM Code E11.9, Insulin: No aspirin, enteric coated (ADULT LOW DOSE ASPIRIN) 81 mg EC tablet Take 1 tablet by mouth once daily. No current facility-administered medications on file prior to visit. Social History Social History Tobacco Use Smoking status: Former Packs/day: 0.50 Years: 40.00 Total pack years: 20.00 Types: Cigarettes Start date: 06/23/1968 Quit date: 05/18/2021 Years since quittin.6 Smokeless tobacco: Never Substance Use Topics Alcohol use: No Drug use: No Review of Symptoms REVIEW OF SYSTEMS Patient has not had any further chest pain. The nausea has resolved and not getting the stomach pains. EXAM: BP 142/80 (BP Site: Left Arm, BP Position: Sitting, BP Cuff Size: Regular Adult) Pulse 72 Resp 16 Wt 68.5 kg (151 lb) LMP 05/22/2006 BMI 24.37 kg/m BP 132/82 Pulse 72 Resp 16 Wt 68.5 kg (151 lb) LMP 05/22/2006 BMI 24.37 kg/m General Appearance: Well appearing, alert, in no acute distress, well-hydrated, well nourished.. Lungs: Lungs clear to auscultation. No wheezing, rhonchi, rales.. Heart: RRR without murmur, gallop, or rubs. No ectopy. Extremities: No deformities, edema, skin discoloration, . Good capillary refill. . Health Maintenance List MAMMOGRAM due on 06/18/2019 DIABETIC FOOT EXAM due on 08/02/2022 COVID-19 VACCINE(5 - Pfizer series) due on 09/05/2022 DILATED RETINAL EXAM due on 09/14/2022 BONE DENSITY due on 05/08/2023 INFLUENZA(1) due on 02/21/2023 LUNG CANCER SCREENING due on 03/11/2023 HBA1C due on 05/14/2023 LDL CHOLESTEROL due on 11/12/2023 ANNUAL PCP TEAM CHRONIC DISEASE VISIT due on 01/08/2024 SERUM CREATININE due on 01/08/2024 HEMOGLOBIN/HEMATOCRIT due on 01/08/2024 BP CONTROLLED (<130/80) due on 01/08/2024 DTAP,TDAP,TD(2 - Td or Tdap) due on 12/30/2027 COLORECTAL CANCER SCREENING due on 02/20/2030 ADVANCE DIRECTIVE DISCUSSION Completed SHINGRIX VACCINE Completed PNEUMOCOCCAL: 65+ Completed HEPATITIS C SCREENING Discontinued Data reviewed A/P ASSESSMENT/PLAN: 1. Gastritis without bleeding, unspecified chronicity, unspecified gastritis type - ICD9: 535.50, ICD10: K29.70 (primary diagnosis) - cont the Protonix. Advised to stop the gabapentin if not needing. 2. CINDY (acute kidney injury) (HCC) - ICD9: 584.9, ICD10: N17.9 - seing renal and will have repeat labs in 2 weeks 3. Dehydration - ICD9: 276.51, ICD10: E86.0 - patient encouraged to get 56-64 ounces a day. 4. Essential hypertension - ICD9: 401.9, ICD10: I10 - Controlled - Continue current medications - Recommend home blood pressure monitoring, to bring results to next visit - Encouraged sodium restriction, DASH or Mediterranean diet - Recommend regular aerobic exercise 5. Type 2 diabetes mellitus without complication, without long-term current use of insulin (HCC) - ICD9: 250.00, ICD10: E11.9 - will start Actos 30 mg a day to replaced the metformin 500 mg a day. Requested Prescriptions Signed Prescriptions Disp Refills metFORMIN ER (GLUCOPHAGE XR) 500 mg 24 hr tablet 30 tablet 5 Sig: Take 1 tablet by mouth daily with breakfast. Was stopped in Hospital end of December 2022 due to elevated Cre. pioglitazone (ACTOS) 30 mg tablet 30 tablet 5 Sig: Take 1 tablet by mouth once daily. Keep appt in Nov. Sooner if issues. I spent a total of 30 minutes on the date of the service which included preparing to see the patient, [id number] patient care, completing clinical documentation, performing a medically appropriate examination, counseling and educating the patient/family/caregiver and ordering medications, tests, or procedures. Magan Amador MD documented in this encounterL[facility]07[facility]23 Miscellaneous Notes* Telephone Encounter - Tonie Turpin LPN - 01/08/2023 11:59 AM EDT This nurse advised Heaven of same. Copy of pt's lab results have been faxed to [facility] ER. Tonie Turpin LPN * Telephone Encounter - Regine Morgan LPN - 01/08/2023 11:42 AM EDT Pt calls to let care team know she is headed back to [facility] for her kidney function. Wanted staff to know mag. documented in this encounterLanc[facility]07-19-2023 Miscellaneous Notes* Telephone Encounter - Tonie Turpin LPN - 01/08/2023 11:26 AM EDT Pt notified that she will have to come back to the lab for this. Other TE has been addressed. Tonie Turpin LPN * Telephone Encounter - Heaven Garg PA-C - 01/08/2023 8:23 AM EDT It can't be added on to labs that were drawn. I will place order. See other TE with urgent results. Heaven Garg PA-C * Telephone Encounter - Shun Enriquetatamanna Ward LPN - 01/07/2023 2:44 PM EDT Pt called and she wanted Lyme's disease lab added to the lab work done today. Pt reports 1 month ago she had a tick bite. Please let her know if this could not be added to the blood work that was taken today or if she needs to come back in. Enriqueta Ribeiroviry Hoffmann PHYSICIAN/ALLERGY/IMMUNOLOGY documented in this encounterLanc[facility]07-19-2023 Miscellaneous Notes* Telephone Encounter - Tonie Turpin LPN - 01/08/2023 10:53 AM EDT Spoke with pt and advised her of Heaven's message and instructions. Pt states she lives 2 hrs away. Advised pt that she can be seen at local ER. Advised pt that she is going into renal failure like she was at recent hospital visit. Pt states her son is not at home and her friend is gone for the day. Advised her to call the squad if necessary. Pt states she will call her son to see what he wants to do. Advised pt of importance of being seen and getting this issue addressed. Pt verbalizes understanding. Also had advised pt per Heaven that her magnesium level is low also and to let ER know this. Did speak with pt again and she states that she will go to ER. Not sure if it will be where she lives or if her son will bring her to [place] advised her that she definitely needs to be seen today. She verbalizes understanding and advises that she will go to an ER. Advised her to have records sent to Dr Amador. Tonie Turpin LPN * Telephone Encounter - Heaven Garg PA-C - 01/08/2023 10:23 AM EDT Let patient know that her creatinine is elevated again up to 2.97. when she was discharged by hospital had was down to 1.9. I need her to go back to ER. She will also need to be seen nephrology aftershe is d/c by hospital. Magnesium was low too. They can replace in ER. documented in this encounterLanc[facility]07-18-2023 History of Present illness Narrative* Heaven Garg PA-C - 01/07/2023 12:20 PM EDT Chief Complaint Patient presents with: Hospital F/U HPI Ty Yu is a 67 year old female who presents here today for Hospital Discharge Follow up.. TCM Date: 01/01/2023 Patient was discharged from [facility] on 12/31/2022. Patient presented to [facility] ER on 12/26/2022 after being directed there by this office due to changes noted on EKG with associated chest pain and lightheadedness. Patient was admitted with creatinine of 5.53 and initial dx of unstable angina. Consult to cardiology was completed and patient recommended proceeding with cardiac cath once her renal function improved and after a renal US was completed. Renal US was normal Cardiac cath was completed and showed was normal. Cardiac stent was patent. ECHO showed EF of 65%. Mild enlargement of left atrium. No significant valvular disease. Patient was told to stop HCTZ due to renal function and low bp. Patient states initially she did start to feel better but shortly after discharge she is back to feeling blah again. She states she still feels out of breath. Has the shakes. Reports tingling in her arm. Worsening acid reflux. Has trouble with regurg. She doesn't follow up with cardiology until April. No consult to renal was made. Past medical history, appointments, medications, allergies reviewed. Previous Medical History PAST MEDICAL HISTORY Diagnosis Date Age-related osteoporosis without current pathological fracture 06/01/2020 Anxiety 07/05/2013 Asthma diagnosed in childhood Urias's palsy Bilateral carotid artery disease (HCC) 12/15/2017 US 11/2017: 20-40% on right and 40-60% on left. Bilateral carotid artery stenosis 02/12/2021 US 11/2017: 20-40% on right and 40-60% on left. Bursitis of right hip 04/01/2013 Cataract 09/14/2021 Dr. Joaquín [facility] Chicken pox as a child Chronic midline low back pain without sciatica 08/02/[address] (HCC) 06/01/2020 Placed 2019 after colectomy due to perforated diverticulitis. 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 07/09/[address] Cunningham, stent to LAD Current moderate episode of major depressive disorder without prior episode (HCC) 07/14/2018 Current use of proton pump inhibitor 06/26/2017 Mg checked 06/2017 Diverticulosis 11/16/2013 Encounter for Medicare annual wellness exam 01/15/2021 Medical B eligibilty date 05/23/19 Date of last exam n/a Essential hypertension Ex-smoker 10/19/2014 Started at age 14 smoked up to 1 PPD. As of 12/2015 1/2 PPD or less. Quit 08/2019 Fibromyalgia 11/17/2013 Foot callus 06/01/2020 Gastroesophageal reflux disease without esophagitis 01/08/2016 Glaucoma suspect of both eyes 09/14/2021 Dr. [facility]ín [facility] Hiatal hernia 07/28/2017 Hip arthritis 04/01/[address] Ivy (Ortho) History of shingles 2005 Insomnia 01/08/2016 Iron deficiency anemia 07/04/[address] 11/11/2022 DPA: Son, Wilbert Carr Lumbar degenerative disc disease 12/28/[address] Arriaza Migraine without aura and without status migrainosus, not intractable 07/09/2016 Mixed hyperlipidemia Moderate pulmonary hypertension (HCC) 02/12/2021 Osteoarthritis of multiple joints 09/06/[address] Ford Continue home meds: prednisone and methotrexate Paroxysmal atrial fibrillation (HCC) 02/12/2021 RLS (restless legs syndrome) Smoker 10/19/2014 Started at age 14 smoked up to 1 PPD. As of 12/2015 1/2 PPD or less. Stage 3b chronic kidney disease (HCC) 06/02/2020 Tear of left rotator cuff 07/24/2017 Added automatically from request for surgery [id number] Type 2 diabetes mellitus without complication, without long-term current use of insulin (HCC) 12/17/2017 Unspecified dementia with behavioral disturbance 07/21/[address] Partida. He also stopped her cymbalta and started Zoloft Valvular heart disease 02/12/2021 Previous Surgical History PAST SURGICAL HISTORY Procedure Laterality Date 2D ECHO (EXEP) 08/24/2019 EF=65%, mild Freire Dysf, 1+ TI, APPENDECTOMY HX 1975 BREAST BIOPSY 07/30/2018 left vacuum assisted core needle biopsy [facility] COLONOSCOPY FLX DX W/COLLJ SPEC WHEN PFRMD 09/01/2018 Colonoscopy, repeat 10 yrs ESOPHAGOGASTRODUODENOSCOPY TRANSORAL DIAGNOSTIC 09/01/2018 EGD LAPAROSCOPIC HEMICOLECTOMY 2018 due to ruptured diverticulitis, has colostomy LAPAROSCOPY SURG CHOLECYSTECTOMY Cholecystectomy, lap LIG/TRNSXJ FLP TUBE ABDL/VAG APPR UNI/BI Tubal ligation PAST SURGICAL HISTORY OF bladder lift RECONSTRUCTION ROTATOR CUFF AVULSION CHRONIC Left 08/08/2017 Left shoulder arthroscopy, Open RCR and SAD REMV CATARACT EXTRACAP,INSERT LENS Bilateral 10/2022 STENT PLACEMENT 05/06/2013 LAD STRESS TEST 07/28/2017 normal TOTAL ABDOMINAL HYSTERECT W/WO RMVL TUBE OVARY Hysterectomy, LESA Family History FAMILY HISTORY Problem Relation Age of Onset Cancer Father Pancreatic Hypertension Mother at age 7, [place] at age 42 Coronary Artery Disease Mother 70 Lipids Mother Headache Mother Cancer Sister Non Hodgken's lymphoma Diabetes Sister Thyroid Sister No Known Problems Daughter No Known Problems Son Diabetes Brother other (Other) Brother MDS Diabetes Maternal Aunt Heart Attack Maternal Grandmother COPD Maternal Grandfather Cancer Paternal Grandmother Stroke Paternal Grandfather Patient Allergies ALLERGIES Allergen Reactions Bees Anaphylaxis Lipitor [Atorvastat* Myalgia Phenergan [Prometha* GI Upset Pravastatin Myalgia Cpoucjf-Nck-Dmk Red* Myalgia Trazodone Other: See Comments Increased urine frequency Current Medications Current Outpatient Medications on File Prior to Visit Medication Sig atorvastatin (LIPITOR) 80 mg tablet Take 1 tablet by mouth daily at bedtime. For cholesterol. metFORMIN ER (GLUCOPHAGE XR) 500 mg 24 hr tablet Take 1 tablet by mouth daily with breakfast. Fenofibrate (LOFIBRA) 54 mg tablet Take 1 tablet by mouth once daily. mirtazapine (REMERON) 30 mg tablet Take 1 tablet by mouth daily at bedtime. mometasone (NASONEX) 50 mcg/actuation nasal spray Mometasone Furoate [Nasonex] 2 SPRAY NASAL DAILY PRN For Cold Symptons December 30, 2017 Active sucralfate (CARAFATE) 1 gram tablet Take 1 tablet by mouth three times daily as needed. Magnesium 250 mg tab Take 1 tablet by mouth twice daily. ezetimibe (ZETIA) 10 mg tablet Take 1 tablet by mouth once daily. pantoprazole DR (PROTONIX) 40 mg tablet Take 1 tablet by mouth once daily. dilTIAZem CD (CARTIA XT) 180 mg 24 hr capsule Take 1 capsule by mouth once daily. nitroglycerin sublingual (NITROSTAT) 0.4 mg SL tablet Dissolve 1 tablet under the tongue every 5 minutes as needed for chest pain. EPINEPHrine (EPIPEN 2-ESTEFANIA) 0.3 mg/0.3 mL auto-injector Inject 0.3 mL intramuscularly as needed. blood sugar diagnostic (BLOOD GLUCOSE TEST) test strip Test blood sugar(s) 1 times daily. Dx: E11.9Insulin: No Galantamine Hydrobromide (RAZADYNE) 16 mg 24 hr capsule Take 1 capsule by mouth daily with breakfast. Per Neuro Dr. Partida (Patient taking differently: Take 16 mg by mouth daily with breakfast. Per Neuro Dr. Partida, taking in liquid form due to colostomy) memantine (NAMENDA) 5 mg tablet Take 5 mg by mouth twice daily. cholecalciferol, vitamin D3, (VITAMIN D3 ORAL) Take by mouth once daily. Ferrous Sulfate (SLOW FE) 142 mg (45 mg iron) TbER Take 1 tablet by mouth once daily. Lancets lancets Test blood sugar(s) 1 times daily. Dx: Other DM Code E11.9, Insulin: No aspirin, enteric coated (ADULT LOW DOSE ASPIRIN) 81 mg EC tablet Take 1 tablet by mouth once daily. buPROPion SR (WELLBUTRIN SR) 150 mg 12 hr tablet Take 1 tablet by mouth once daily for 7 days, THEN1 tablet twice daily. (Patient not taking: Reported on 12/26/2022) hydroCHLOROthiazide 12.5 mg capsule Take 1 capsule by mouth once daily. (Patient not taking: Reported on 01/07/2023) No current facility-administered medications on file prior to visit. Social History Social History Tobacco Use Smoking status: Former Packs/day: 0.50 Years: 40.00 Total pack years: 20.00 Types: Cigarettes Start date: 06/23/1968 Quit date: 05/18/2021 Years since quittin.6 Smokeless tobacco: Never Substance Use Topics Alcohol use: No Drug use: No Review of Symptoms REVIEW OF SYSTEMS See hpi EXAM: BP 100/70 (BP Site: Left Arm, BP Position: Sitting, BP Cuff Size: Regular Adult) Pulse 73 Temp 37.2 C (99 F) Resp 18 Wt 65.8 kg (145 lb) LMP 05/22/2006 BMI 23.40 kg/m General Appearance: Well appearing, alert, in no acute distress, well-hydrated, well nourished.. Neck: Supple, no adenopathy; thyroid symmetric, normal size, no bruits. Lungs: Lungs clear to auscultation. No wheezing, rhonchi, rales.. Heart: RRR without murmur, gallop, or rubs. No ectopy. Extremities: No deformities, edema, skin discoloration, clubbing or cyanosis. Good capillary refill. . Peripheral Pulses: Normal. Health Maintenance List MAMMOGRAM due on 06/18/2019 DIABETIC FOOT EXAM due on 08/02/2022 COVID-19 VACCINE(5 - Pfizer series) due on 09/05/2022 DILATED RETINAL EXAM due on 09/14/2022 BONE DENSITY due on 05/08/2023 INFLUENZA(1) due on 02/21/2023 LUNG CANCER SCREENING due on 03/11/2023 HBA1C due on 05/14/2023 URINE ALBUMIN:CREATININE RATIO due on 11/12/2023 LDL CHOLESTEROL due on 11/12/2023 SERUM CREATININE due on 11/12/2023 HEMOGLOBIN/HEMATOCRIT due on 11/12/2023 ANNUAL PCP TEAM CHRONIC DISEASE VISIT due on 12/27/2023 BP CONTROLLED (<130/80) due on 12/27/2023 DTAP,TDAP,TD(2 - Td or Tdap) due on 12/30/2027 COLORECTAL CANCER SCREENING due on 02/20/2030 ADVANCE DIRECTIVE DISCUSSION Completed SHINGRIX VACCINE Completed PNEUMOCOCCAL: 65+ Completed HEPATITIS C SCREENING Discontinued Data reviewed See hpi ASSESSMENT/PLAN: 1. Hospital discharge follow-up - ICD9: V67.59, ICD10: Z09 (primary diagnosis) Se below - COMP METABOLIC PANEL - CBC + DIFF - MAGNESIUM BLD 2. CINDY (acute kidney injury) (HCC) - ICD9: 584.9, ICD10: N17.9 Will recheck labs If creatinine is still elevated will set up with renal - COMP METABOLIC PANEL - CBC + DIFF - MAGNESIUM BLD 3. Unstable angina (HCC) - ICD9: 411.1, ICD10: I20.0 Continue with cardio 4. QUINTANILLA (dyspnea on exertion) - ICD9: 786.09, ICD10: R06.09 Unclear etiology. Will see if can get 2nd pulm opinion as cardiac workup has been benign. 5. Gastroesophageal reflux disease without esophagitis - ICD9: 530.81, ICD10: K21.9 Increae protonix to BID Set up with gastro Patient elects to see Dr. Brian. Understands that he may be booked out months - CONSULT TO GASTROENTEROLOGY 6. Type 2 diabetes mellitus without complication, without long-term current use of insulin (HCC) - ICD9: 250.00, ICD10: E11.9 7. Stage 3b chronic kidney disease (HCC) - ICD9: 585.3, ICD10: N18.32 As above 8. Colostomy in place (HCC) - ICD9: V44.3, ICD10: Z93.3 - CONSULT TO GASTROENTEROLOGY 9. SOB (shortness of breath) - ICD9: 786.05, ICD10: R06.02 As #4 - CONSULT TO PULMONARY MEDICINE Heaven Garg PA-C documented in this encounterL[facility]07-12-[facility]23 History of Present illness Narrative* Rosemary Mcnair RN - 01/01/2023 8:48 AM EDT TRANSITION CARE MANAGEMENT (TCM) INITIAL CONTACT Software Engineering Manager Outreach Provider Action/FYI: Patient was admitted to [facility] on 12/26/2022 and D/C 12/31/2022 Patient has heart cath completed on 12/31/2022 Initial contact with patient post discharge, spoke to patient. Patient identified by name and . TRANSITION CARE MANAGEMENT INITIAL OUTREACH DOCUMENTATION: No flowsheet data found. SUMMARY: -Pt discharged from [facility] on 12/31/2022. -Admitted for: chest pain Do you have a hospital follow up appointment with your PCP? Appointment on 01/07/2023 with Heaven Garg. Yes. Patient reminded of appointment date, time, and location. MEDICATIONS: Many patients have questions or concerns about their medications once they are home. Were you prescribed any new medications? If yes, what are those medications? no Were you told to hold any medications? Yes, Hold Metformin until 01/02/23 due to impaired renal function Were any of your medications discontinued? Yes, hydrochlorothiazide discontinued Do you have any questions about getting or taking your medications? No Your discharge instructions/After visit Summary (AVS) are important in guiding you through the recovery process. Is there anything I might help you understand? No Do you have all the necessary equipment and supplies at home? yes Medical records from recent hospitalization: Care Everywhere documented in this encounterL[facility]07-11-2023 Discharge summary Author Sarath Ceja [facility] December 31, 2022 12:39pm Note Date/Time December 31, 2022 11:1 7am [facility] Medical Records Department [address] [place] [id number] Discharge Summary 12/31/22 1117 MR#: [id number] Acct: [id number] Name: TY YU Rep #:[id number] : 1955 67 From: Sarath Ceja DO PCP: Dr. Magan Amador MD Status:ADM IN Location: [place] [address]- Providers Date of Admission: 12/26/22 Date of Discharge: 12/31/22 Primary Care Physician: Dr. Magan Amador MD Consultations 12/26/22 18:42 Consult: Cardiology Routine Consulting Provider: Jorge Hills Reason for Consult: chest pain EMERGENT Consult: No Notified: Yes Date Notified: 12/26/22 Time Notified: 18:34 Method of Notification: Verbal Method of Consult:: In-Person Reason For Visit: UNSTABLE ANGINA, RENAL FAILURE Diagnosis Discharge Diagnosis (1) Unstable angina: Status: Acute Code(s): I20.0 - Unstable angina (2) Paroxysmal atrial fibrillation: Status: Chronic Code(s): I48.0 - Paroxysmal atrial fibrillation Plan 1. Musculoskeletal chest pain #2 acute renal failure-etiology unclear #3 essential hypertension-patient will remain on her present medications #4 hyperlipidemia-patient will remain on her lipid medications #5 mild dementia-patient will remain on her dementia medications #6 chronic depression/anxiety-patient will remain on her antidepressant #7 type 2 diabetes-patient is on metformin at home, this will be held due to herrenal function #8 hypokalemia-etiology unclear, corrected at this time, patient is on IV fluidscontaining potassium, her BMP will be checked tomorrow #9 GERD-patient will be kept on a PPI #10 coronary artery disease Unstable angina was ruled out Total clinical time spent by myself addressing patient's medical issues, reviewing all of her data, and collaborating with patient's care team: 35 minutes Medications at Discharge Home Medications pantoprazole 40 mg tablet,delayed release 40 mg PO DAILY REFLUX 03/21/17 ezetimibe 10 mg tablet 10 mg PO DAILY 01/27/19 acetaminophen 500 mg tablet 1,000 mg (2 x 500 mg) PO Q6H PRN PRN Pain Score 1- 3/09/20/19 atorvastatin 80 mg tablet 80 mg PO QHS #30 tabs 09/20/19 fenofibrate 54 mg tablet 54 mg PO DAILY 04/18/20 diltiazem HCl 180 mg capsule,extended release 24 hr 180 mg PO DAILY #90 caps 05/08/22 sucralfate 1 gram tablet 1 g PO TID PRN stomachache 05/08/22 fluticasone 113mcg-salmeterol 14mcg/actuation breath act,powder sensor (AirDuo Digihaler) 113 mcg-14 mcg/actuation Aero Powdr Breath Act W/Sensor#2 Samples 06/04/22 memantine 2 mg/mL oral solution 5 mg (2.5 mL) PO BID #450 mL 08/12/22 nitroglycerin 0.4 mg sublingual tablet 0.4 mg sublingual Q5-15M PRN chest pain #25 tabs 11/11/22 fluoxetine 40 mg capsule 40 mg PO DAILY #90 caps 11/13/22 aspirin 81 mg tablet,delayed release (Adult Aspirin Regimen) 81 mg PO DAILY 12/26/22 galantamine 4 mg/mL oral solution 10 mg PO BID 12/26/22 latanoprost 0.005 % eye drops 1 drp ophthalmic (eye) QHS 12/26/22 metformin 500 mg tablet,extended release 24 hr 500 mg PO DAILY DM 12/26/22 mirtazapine 30 mg tablet 30 mg PO QHS 12/26/22 mometasone 50 mcg/actuation nasal spray 1 - 2 spray intranasal Q12H ALLERGIES 12/26/22 polyethylene glycol 400 1 % eye drops (Visine Dry Eye Relief) 1 - 2 drp EACH [id number] PRN dry eye(s) 12/26/22 Hospital Course Operations None Procedures Cardiac catheterization Summary of Care Provided Minutes Spent on Discharge: 31 Hospital Course: 67-year-old white female was seen in the emergency room at [facility] with complaints of substernal chest pain, work-up in the emergency roomincluded chest x-ray which was unremarkable, patient's troponin was unremarkable. EKG did not show an injury pattern. Patient's chemistry profile was abnormal for creatinine of 5.53. Patient was admitted to PCU for acute renal failure and an initial diagnosis of unstable angina, she was seen in consultation by cardiology who recommended proceeding with a cardiac catheterization when her renal function is improved. Patient was given IV fluids and her labs were monitored. Patient underwent a renal ultrasound which showed no abnormalities. Patient did not have any chest pain during her hospitalization. On 12/31/2022, patient underwent a cardiac catheterization which showed nonocclusive coronary disease, her stent was patent. She was seen and examined on that date: On examination she appeared in good health and spirits, she does not appear to be in any distress. Vital signs as documented. Skin warm and dry and without overt rashes. Neck without JVD, thyroid appears normal, trachea is midline, neck is supple. Lungs clear, normal air movement was noted. Heart exam notable for regular rhythm, normal sounds and absence of murmurs, rubs or gallops. Abdomen unremarkable and without evidence of organomegaly, masses, or abdominal aortic enlargement, bowel sounds are present in all 4 quadrants, no abdominal tenderness was noted. Extremities nonedematous, no cyanosis was noted,no clubbing was noted. Neuro: Cranial nerves II through XII are grossly intact,no focal motor deficits were noted, sensation to light touch and pinprick is intact, motor exam 5/5 throughout. Psych: Patient is alert and oriented x3, shedoes not appear anxious or depressed, she does not appear agitated. Patient was discharged in stable condition on 12/31/2022, she was instructed to follow-up with her PCP regarding her renal functions, I did make contact with her PCP-Dr. Amador-and discussed the case with him. Weight / BMI Weight Weight: 67.9 kg Body Mass Index (BMI) 24.9 ABG / Lab / Microbiology Data 12/31/22 05:03 12/31/22 05:03 Laboratory: Laboratory Results - last 24 hr 12/31/22 05:03: WBC 7.5, RBC 3.23 L, Hgb 9.5 L, Hct 31.1 L, MCV 96.3 D, MCH 29.4, MCHC 30.5 L D, RDW Std Deviation 51.6 H, RDW Coeff of [place] 14.6, Plt Count 228, MPV 11.9, Immature Gran % (Auto) 0.500, Neut % (Auto) 49.8, Lymph % (Auto) 35.0, [place] % (Auto) 9.3, Eos % (Auto) 4.7, Baso % (Auto) 0.7, Absolute Neuts (auto) 3.8, Absolute Lymphs (auto) 2.63, Nucleated RBC % 0, PT 13.6, INR 1.0, Sodium 146 H, Potassium 4.7, Chloride 125 H, Carbon Dioxide 16.0 L, Anion Gap 5,BUN 22 H, Creatinine 1.94 H, Estim Creat Clear Calc 24.97, Est GFR (MDRD) Af Amer 33 L, Est GFR (MDRD) Non-Af 27 L, BUN/Creatinine Ratio 11.3, Glucose 105, Calcium 7.4 L D/C Instructions Discharge Diet: No restrictions Weight Bearing Status: Full weight bearing Meaningful Use Info Meaningful Use Diagnoses (Choose all that apply): None applicable Discharge Plan Admission Admit Date/Time: 12/26/22 18:24 Primary Reason for Your Visit: renal failure, chest pain Attending Provider: Sarath Ceja Primary Care Provider: Magan Amador Consulting Providers: Jorge Hills Discharge Orders/Prescriptions Prescriptions: Continued memantine 2 mg/mL solution 5 mg PO BID Qty: 450 2RF fluoxetine 40 mg capsule 40 mg PO DAILY Qty: 90 1RF fluticasone propion-salmeterol [AirDuo Digihaler] 113 mcg-14 mcg/actuation aero powdr breath act w/sensor 0RF sucralfate 1 gram tablet 1 g PO TID PRN (Reason: stomachache) nitroglycerin 0.4 mg tablet, sublingual 0.4 mg sublingual Q5-15M PRN (Reason: chest pain) Qty: 25 3RF pantoprazole 40 MG tablet 40 mg PO DAILY ezetimibe 10 MG tablet 10 mg PO DAILY Patient Comments: Take 1 tablet by mouth once daily. fenofibrate 54 mg tablet 54 mg PO DAILY Patient Comments: TAKE 1 TABLET BY MOUTH ONCE DAILY acetaminophen 500 MG tablet 1,000 mg PO Q6H PRN PRN (Reason: Pain Score 1-3/10) 0RF atorvastatin 80 MG tablet 80 mg PO QHS Qty: 30 0RF latanoprost 0.005 % drops 1 drp ophthalmic (eye) QHS mirtazapine 30 mg tablet 30 mg PO QHS mometasone 50 mcg/actuation spray,non-aerosol 1 - 2 spray INTRANASAL Q12H metformin 500 mg tablet extended release 24 hr 500 mg PO DAILY Visine Dry Eye Relief 1 % drops 1 - 2 drp EACH EYE Q4H PRN (Reason: dry eye(s)) galantamine 4 mg/mL solution 10 mg PO BID Rx Instructions: TAKE 2.5 ML BY MOUTH TWO TIMES A DAY ADMINISTER WITH MORNING AND EVENING MEALS aspirin [Adult Aspirin Regimen] 81 mg tablet,delayed release (DR/EC) 81 mg PO DAILY diltiazem HCl 180 mg capsule,extended release 24hr 180 mg PO DAILY Qty: 90 3RF Discontinued hydrochlorothiazide 12.5 mg capsule 12.5 mg PO DAILY Referrals / Follow Up: Heaven Garg, PA [Non-Staff] - 01/07/23 12:20 am Disposition Disposition (needs filled in before D/C Order can be placed): Home, Self Care Charges/Coding Visit Charges Inpatient E&M: 60594 Disch Hosp >30min 12/31/22 1239 <Electronically signed by Sarath Ceja DO> Cosigner Signature (if applicable): CC: Dr. Magan Amador MD; Dr. Sarath Ceja DO~ Signed [facility] Work Phone: [phone]) 304-171307-11-2023 Consult note Author Quyen Nava [facility] December 31, 2022 12:24pm Note Date/Time December 31, 2022 12:2 4pm [facility] Medical Records Department [address] [place] [address] Counseling Note - Pharmacy 12/31/22 1223 MR#: [id number] Acct: [id number] Name: TY YU Rep #:[id number] : 1955 67 From: Quyen Nava PCP: Dr. Magan Amador MD Status:ADM IN Location: [place] [address] Pharmacy [place] Med Reconciliation Pharmacy Service has performed discharge medication reconciliation for this patient. No new medications at time of discharge review. Medications reviewed are from previously reported home medications. The patient's discharge medication list was reviewed for discrepancies and discrepancies were resolved. Medications at Discharge Home Medications pantoprazole 40 mg tablet,delayed release 40 mg PO DAILY REFLUX 03/21/17 ezetimibe 10 mg tablet 10 mg PO DAILY 01/27/19 acetaminophen 500 mg tablet 1,000 mg (2 x 500 mg) PO Q6H PRN PRN Pain Score 1- 3/10 09/20/19 atorvastatin 80 mg tablet 80 mg PO QHS #30 tabs 09/20/19 fenofibrate 54 mg tablet 54 mg PO DAILY 04/18/20 diltiazem HCl 180 mg capsule,extended release 24 hr 180 mg PO DAILY #90 caps 05/08/22 sucralfate 1 gram tablet 1 g PO TID PRN stomachache 05/08/22 fluticasone 113mcg-salmeterol 14mcg/actuation breath act,powder sensor (AirDuo Digihaler) 113 mcg-14 mcg/actuation Aero Powdr Breath Act W/Sensor#2 Samples 06/04/22 memantine 2 mg/mL oral solution 5 mg (2.5 mL) PO BID #450 mL 08/12/22 nitroglycerin 0.4 mg sublingual tablet 0.4 mg sublingual Q5-15M PRN chest pain #25 tabs 11/11/22 fluoxetine 40 mg capsule 40 mg PO DAILY #90 caps 11/13/22 aspirin 81 mg tablet,delayed release (Adult Aspirin Regimen) 81 mg PO DAILY 12/26/22 galantamine 4 mg/mL oral solution 10 mg PO BID 12/26/22 latanoprost 0.005 % eye drops 1 drp ophthalmic (eye) QHS 12/26/22 metformin 500 mg tablet,extended release 24 hr 500 mg PO DAILY DM 12/26/22 mirtazapine 30 mg tablet 30 mg PO QHS 12/26/22 mometasone 50 mcg/actuation nasal spray 1 - 2 spray intranasal Q12H ALLERGIES 12/26/22 polyethylene glycol 400 1 % eye drops (Visine Dry Eye Relief) 1 - 2 drp EACH EYEQ4H PRN dry eye(s) 12/26/22 12/31/22 1224 <Electronically signed by Quyen Nava > Date _ Quyen Nava Cosigner Signature (if applicable): Date CC: ~ Signed [facility] Work Phone: [phone]) [phone] Discharge summary Author Sarath [facility] December 31, 2022 11:17am Note Date/Time December 31, 2022 10:2 4am [facility] Medical Records Department [address] [place] [id number] Instructions for Home/Discharge Instructions 12/31/22 1023 MR#: [id number] Acct: [id number] Name: YUTY Keeley Rep #:[id number] : 1955 67 From: Sarath Ceja DO PCP: Dr. Magan Amador MD Status:ADM IN Discharge Instructions Diet Discharge Diet: No restrictions Activity Discharge Activity: Return to Normal Activity Weight Bearing Status: Full weight bearing Follow Up Care Test Results: Test results from this visit will be discussed in further detail at your follow- up appointment, if applicable. Discharge Plan Admission Admit Date/Time: 12/26/22 18:24 Primary Reason for Your Visit: renal failure, chest pain Attending Provider: Sarath Ceja Primary Care Provider: Magan Amador Consulting Providers: Jorge Hills Discharge Orders/Prescriptions Prescriptions: Continued memantine 2 mg/mL solution 5 mg PO BID Qty: 450 2RF fluoxetine 40 mg capsule 40 mg PO DAILY Qty: 90 1RF fluticasone propion-salmeterol [AirDuo Digihaler] 113 mcg-14 mcg/actuation aero powdr breath act w/sensor 0RF sucralfate 1 gram tablet 1 g PO TID PRN (Reason: stomachache) nitroglycerin 0.4 mg tablet, sublingual 0.4 mg sublingual Q5-15M PRN (Reason: chest pain) Qty: 25 3RF pantoprazole 40 MG tablet 40 mg PO DAILY ezetimibe 10 MG tablet 10 mg PO DAILY Patient Comments: Take 1 tablet by mouth once daily. fenofibrate 54 mg tablet 54 mg PO DAILY Patient Comments: TAKE 1 TABLET BY MOUTH ONCE DAILY acetaminophen 500 MG tablet 1,000 mg PO Q6H PRN PRN (Reason: Pain Score 1-3/10) 0RF atorvastatin 80 MG tablet 80 mg PO QHS Qty: 30 0RF latanoprost 0.005 % drops 1 drp ophthalmic (eye) QHS mirtazapine 30 mg tablet 30 mg PO QHS mometasone 50 mcg/actuation spray,non-aerosol 1 - 2 spray INTRANASAL Q12H metformin 500 mg tablet extended release 24 hr 500 mg PO DAILY Visine Dry Eye Relief 1 % drops 1 - 2 drp EACH EYE Q4H PRN (Reason: dry eye(s)) galantamine 4 mg/mL solution 10 mg PO BID Rx Instructions: TAKE 2.5 ML BY MOUTH TWO TIMES A DAY ADMINISTER WITH MORNING AND EVENING MEALS aspirin [Adult Aspirin Regimen] 81 mg tablet,delayed release (DR/EC) 81 mg PO DAILY diltiazem HCl 180 mg capsule,extended release 24hr 180 mg PO DAILY Qty: 90 3RF Discontinued hydrochlorothiazide 12.5 mg capsule 12.5 mg PO DAILY Referrals / Follow Up: Magan Amador MD [Primary Care Provider] - Within 1 Week Disposition Disposition (needs filled in before D/C Order can be placed): Home, Self Care 12/31/22 1117<Electronically signed by Sarath Ceja DO>Sarath Ceja DO CC: Dr. Magan Amador MD; Dr. Jorge Hills MD ~ Signed [facility] Work Phone: [phone]) 236-310307-11-2023 Progress note Author Medardo Berrios [facility] December 31, 2022 8:36am Note Date/Time December 31, 2022 8:36 am [facility] Medical Records Department [address] [place] [address] Progress Note - Cardiology 12/31/22 0835 MR#: [id number] Acct: [id number] Name: TY YU Rep #:[id number] : 1955 67 From: Medardo Berrios MD PCP: Dr. Magan Amador MD Status:ADM IN Location: [place] [address] Subjective Subjective Patient seen and evaluated. Appears to be doing well. Objective Data Vital Signs: Vital Signs Temp Pulse Resp BP Pulse Ox O2 Del Method 97.7 F L 62 18 156/65 H 100 Room Air 12/31/22 06:40 12/31/22 06:49 12/31/22 06:40 12/31/22 06:40 12/31/22 06:40 12/31/22 06:40 Oxygen Delivery Method Room Air Weight: 149 lb 11.102 oz Body Mass Index (BMI) 24.9 Intake & Output: Intake and Output for Last 24 Hours 12/29/22 12/30/22 12/31/22 23:59 23:59 23:59 Intake Total 3240 / 3240 3332.5 / 3332.5 1000 / 1000 Balance 3240 / 3240 3332.5 / 3332.5 1000 / 1000 Lab / Micro Data 12/31/22 05:03 12/31/22 05:03 Labs: Laboratory Results - last 24 hr 12/31/22 05:03: WBC 7.5, RBC 3.23 L, Hgb 9.5 L, Hct 31.1 L, MCV 96.3 D, MCH 29.4, MCHC 30.5 L D, RDW Std Deviation 51.6 H, RDW Coeff of [place] 14.6, Plt Count 228, MPV 11.9, Immature Gran % (Auto) 0.500, Neut % (Auto) 49.8, Lymph % (Auto) 35.0, [place] % (Auto) 9.3, Eos % (Auto) 4.7, Baso % (Auto) 0.7, Absolute Neuts (auto) 3.8, Absolute Lymphs (auto) 2.63, Nucleated RBC % 0, PT 13.6, INR 1.0, Sodium 146 H, Potassium 4.7, Chloride 125 H, Carbon Dioxide 16.0 L, Anion Gap 5,BUN 22 H, Creatinine 1.94 H, Estim Creat Clear Calc 24.97, Est GFR (MDRD) Af Amer 33 L, Est GFR (MDRD) Non-Af 27 L, BUN/Creatinine Ratio 11.3, Glucose 105, Calcium 7.4 L Rhythm Strip Rhythm Strip: Sinus Rhythm Rate: 72 Ectopy: None Cardiology Labs/Tests 12/31/22 05:03: WBC 7.5, RBC 3.23 L, Hgb 9.5 L, Hct 31.1 L, MCV 96.3 D, MCH 29.4, MCHC 30.5 L D, Plt Count 228, MPV 11.9, Immature Gran % (Auto) 0.500, Neut% (Auto) 49.8, Lymph % (Auto) 35.0, [place] % (Auto) 9.3, Eos % (Auto) 4.7, Baso % (Auto) 0.7, Absolute Neuts (auto) 3.8, Nucleated RBC % 0, PT 13.6, INR 1.0, Sodium 146 H, Potassium 4.7, Chloride 125 H, Carbon Dioxide 16.0 L, Anion Gap 5,BUN 22 H, Creatinine 1.94 H, Est GFR (MDRD) Af Amer 33 L, Est GFR (MDRD) Non-Af 27 L, BUN/Creatinine Ratio 11.3, Glucose 105, Calcium 7.4 L Rhythm: EKG: ECHO: Stress Test: Cardiac Cath: PCI: CT Surgery: Holter monitor: EPS: PPM: CXR: Chest CT Scan: Physical Exam Const alert, oriented x3 and no apparent distress General Appearance: cooperative HEENT hearing grossly normal bilaterally Head and Scalp: atraumatic Eyes EOMs intact bilaterally Neck General: normal visual inspection Chest inspection of chest normal and palpation of chest normal Resp normal respiratory effort Auscultation: clear to auscultation bilaterally Cardio regular rate, regular rhythm, S1 normal heart sound and S2 normal heart sound Jugular Venous Distention: JVD GI normal to inspection, nondistended, normoactive bowel sounds Extremity normal capillary refill and no pedal edema Peripheral Pulses: Yes pulses 2+ throughout and femoral pulses present Skin no rashes or lesions noted Neuro oriented x3 and CN's II-XII intact bilaterally Psych Appearance: grossly normal and appropriate Assessment & Plan Assessment/Plan (1) Unstable angina: PLAN: Patient appears to have unstable angina. Cardiac catheterization done today demonstrated normal left main coronary arterypreviously stented Left anterior descending artery with mild disease Left circumflex artery with no significant disease Dominant right coronary artery mildly calcified with no significant disease. Echocardiogram demonstrated preserved left ventricular systolic function. We will continue to treat medically at this time. Patient can be discharged later today. We will recommend hydrate with IV fluids 150 cc an hour for 4 hours. (2) Paroxysmal atrial fibrillation: PLAN: Anticoagulation can be discussed with the patient after coronary angiography. 12/31/22 0836 <Electronically signed by Medardo Berrios MD> Cosigner Signature (if applicable): CC: ~ Signed [facility] Work Phone: [phone]) [phone] Progress note Author Sarath Ceja [facility] December 30, 2022 6:11pm Note Date/Time December 30, 2022 5:58 pm [facility] Medical Records Department [address] [place] [address] Progress Note - Hospitalist 12/30/22 1756 MR#: [id number] Acct: [id number] Name: TY YU Rep #:[id number] : 1955 67 From: Sarath Ceja DO PCP: Dr. Magan Amador MD Status:ADM IN Location: [place] [id number]- 1 Reason for Visit Reason for Visit: Diagnoses Unstable angina (12/26/22) Paroxysmal atrial fibrillation (12/26/22) Acute kidney failure, unspecified (12/26/22) Subjective Subjective Patient was seen and examined today, her creatinine today was 2.09, cardiology has elected to wait another day before performing a cardiac catheterization due to her renal function. Patient has had no complaints of any chest pain or shortness of breath. Objective Data Objective Data Vital Signs: Vital Signs Temp Pulse Resp BP Pulse Ox O2 Del Method 96.5 F L 65 16 140/70 H 99 Room Air 12/30/22 10:30 12/30/22 10:30 12/30/22 10:30 12/30/22 10:30 12/30/22 10:30 12/30/22 10:30 Oxygen Delivery Method Room Air Weight: 67.9 kg Body Mass Index (BMI) 24.9 Intake & Output: Intake and Output for Last 24 Hours 12/28/22 12/29/22 12/30/22 23:59 23:59 23:59 Intake Total 3702.5 / 3702.5 3240 / 3240 2312.5 / 2312.5 Balance 3702.5 / 3702.5 3240 / 3240 2312.5 / 2312.5 Lab / Micro Data 12/26/22 13:46 12/30/22 05:10 Labs: Laboratory Results - last 24 hr 12/30/22 05:10: Sodium 144, Potassium 4.9, Chloride 124 H, Carbon Dioxide 16.0 L, Anion Gap 4 L, BUN 27 H, Creatinine 2.09 H, Estim Creat Clear Calc 23.18, Est GFR (MDRD) Af Amer 30 L, Est GFR (MDRD) Non-Af 25 L, BUN/Creatinine Ratio 12.9, Glucose 109 H, Calcium 7.5 L Rhythm Strip Rhythm Strip: Sinus Rhythm Rate: 72 Ectopy: None Physical Exam Const alert, oriented x3, no apparent distress, average body habitus and healthy appearing General Appearance: cooperative, well kempt and well developed Orientation / Consciousness: awake, oriented to person, oriented to place and oriented to time HEENT normocephalic, head/scalp atraumatic and moist oral mucous membranes Eyes PERRL, EOMs intact bilaterally and conjunctivae normal Neck supple, no JVD, thyroid normal and no carotid bruits General: trachea midline Resp normal respiratory effort, no retractions, no use of accessory muscles and clearto auscultation bilaterally Auscultation: Negative for rales, rhonchi or wheezes Cardio regular rate, regular rhythm, S1 normal heart sound, S2 normal heart sound, no murmurs, no rub and no gallops GI normal to inspection, nondistended, normoactive bowel sounds, soft to palpation,non-tender and non-distended GI Narrative: Colostomy in place Extremity no clubbing, cyanosis or edema Skin no rashes or lesions noted General Skin Exam: no breakdown Neuro oriented x3, CN's II-XII intact bilaterally, moves all extremities, no focal motor deficits and no sensory deficits noted Sensorium / Orientation: awake, alert, oriented to person, oriented to place andoriented to time Speech: speech normal Psych affect normal Assessment & Plan Assessment/Plan (1) Acute renal failure: PLAN: Plan 1. Unstable angina-patient's cardiac enzymes remain normal, she has had no episodes of chest discomfort. Again the plan is for heart catheterization on 12/31/2022. This depends on what her renal functions are on that day. #2 acute renal failure-etiology unclear at this point, continue present IV fluidadministration, recheck BMP in the morning #3 essential hypertension-patient will remain on her present medications #4 hyperlipidemia-patient will remain on her lipid medications #5 mild dementia-patient will remain on her dementia medications #6 chronic depression/anxiety-patient will remain on her antidepressant #7 type 2 diabetes-patient is on metformin at home, this will be held due to herrenal function #8 hypokalemia-etiology unclear, corrected at this time, patient is on IV fluidscontaining potassium, her BMP will be checked tomorrow #9 GERD-patient will be kept on a PPI Total clinical time spent by myself addressing patient's medical issues, reviewing all of her data, and collaborating with patient's care team: 35 minutes Charges/Coding Visit Charges Inpatient E&M: 86342 Subs Hosp L2 12/30/22 1811 <Electronically signed by Sarath Ceja DO> Cosigner Signature (if applicable): CC: ~ Signed [facility] Work Phone: [phone]) 408-874207-10-2023 Progress note Author Medardo Berrios [facility] December 30, 2022 8:25am Note Date/Time December 30, 2022 8:25 am [facility] Medical Records Department [address] [place] [address] Progress Note - Cardiology 12/30/22821 MR#: [id number] Acct: [id number] Name: TY YU Rep #:[id number] : 1955 67 From: Medardo Berrios MD PCP: Dr. Magan Amador MD Status:ADM IN Location: [place] [id number]- Objective Data Vital Signs: Vital Signs Temp Pulse Resp BP Pulse Ox O2 Del Method 98.2 F 68 16 142/79 H 99 Room Air 12/30/22 04:30 12/30/22 04:30 12/30/22 04:30 12/30/22 04:30 12/30/22 04:30 12/30/22 04:30 Oxygen Delivery Method Room Air Weight: 149 lb 11.102 oz Body Mass Index (BMI) 24.9 Intake & Output: Intake and Output for Last 24 Hours 12/28/22 12/29/22 12/30/22 23:59 23:59 23:59 Intake Total 3702.5 / 3702.5 3240 / 3240 970 / 970 Balance 3702.5 / 3702.5 3240 / 3240 970 / 970 Lab / Micro Data 12/26/22 13:46 12/30/22 05:10 Labs: Laboratory Results - last 24 hr 12/30/22 05:10: Sodium 144, Potassium 4.9, Chloride 124 H, Carbon Dioxide 16.0 L, Anion Gap 4 L, BUN 27 H, Creatinine 2.09 H, Estim Creat Clear Calc 23.18, Est GFR (MDRD) Af Amer 30 L, Est GFR (MDRD) Non-Af 25 L, BUN/Creatinine Ratio 12.9, Glucose 109 H, Calcium 7.5 L Rhythm Strip Rhythm Strip: Sinus Rhythm Rate: 72 Ectopy: None Cardiology Labs/Tests 12/30/22 05:10: Sodium 144, Potassium 4.9, Chloride 124 H, Carbon Dioxide 16.0 L, Anion Gap 4 L, BUN 27 H, Creatinine 2.09 H, Est GFR (MDRD) Af Amer 30 L, Est GFR (MDRD) Non-Af 25 L, BUN/Creatinine Ratio 12.9, Glucose 109 H, Calcium 7.5 L Rhythm: EKG: ECHO: Stress Test: Cardiac Cath: PCI: CT Surgery: Holter monitor: EPS: PPM: CXR: Chest CT Scan: Physical Exam Const alert, oriented x3 and no apparent distress General Appearance: cooperative HEENT hearing grossly normal bilaterally Head and Scalp: atraumatic Eyes EOMs intact bilaterally Neck General: normal visual inspection Chest inspection of chest normal and palpation of chest normal Resp normal respiratory effort Auscultation: clear to auscultation bilaterally Cardio regular rate, regular rhythm, S1 normal heart sound and S2 normal heart sound Jugular Venous Distention: JVD GI normal to inspection, nondistended, normoactive bowel sounds Extremity normal capillary refill and no pedal edema Peripheral Pulses: Yes pulses 2+ throughout and femoral pulses present Skin no rashes or lesions noted Neuro oriented x3 and CN's II-XII intact bilaterally Psych Appearance: grossly normal and appropriate Assessment & Plan Assessment/Plan (1) Unstable angina: PLAN: Patient appears to have unstable angina. She will eventually need coronary angiography. However it is better to wait till her creatinine comes back to normal prior to proceeding with coronary angiography. Her acute kidney failure is being addressed by the primary service at this time. * There has been some improvement in her renal function but her to be appropriate to wait at least another day to see whether there is further improvement noted. * Above has been discussed with the patient. (2) Paroxysmal atrial fibrillation: PLAN: Anticoagulation can be discussed with the patient after coronary angiography. 12/30/22824 <Electronically signed by Medardo Berrios MD> Cosigner Signature (if applicable): CC: ~ Signed [facility] Work Phone: [phone]) [phone] Progress note Author Jorge Hills [facility] December 29, 2022 3:32pm Note Date/Time December 29, 2022 3:32p m [facility] Medical Records Department [address] [place] [address] Progress Note - Cardiology 12/29/22 1530 MR#: [id number] Acct: [id number] Name: TY YU Rep #:[id number] : 1955 67 From: Jorge baez MD PCP: Dr. Magan Amador MD Status:ADM IN Location: [place] [address]- 1 Subjective Subjective Denies any rest angina. Creatinine continues to improve but not yet at baseline. Objective Data Vital Signs: Vital Signs Temp Pulse Resp BP Pulse Ox O2 Del Method 97.5 F L 64 18 124/68 H 98 Room Air 12/29/22 10:43 12/29/22 10:53 12/29/22 10:43 12/29/22 10:43 12/29/22 10:43 12/29/22 14:00 Oxygen Delivery Method Room Air Weight: 149 lb 11.102 oz Body Mass Index (BMI) 24.9 Intake & Output: Intake and Output for Last 24 Hours 12/27/22 12/28/22 12/29/22 23:59 23:59 23:59 Intake Total 3937.35 / 3937.35 3702.5 / 3702.5 1800 / 1800 Balance 3937.35 / 3937.35 3702.5 / 3702.5 1800 / 1800 Lab / Micro Data 12/26/22 13:46 12/29/22 05:20 Labs: Laboratory Results - last 24 hr 12/29/22 05:20: Sodium 145, Potassium 4.4, Chloride 125 H, Carbon Dioxide 15.0 L, Anion Gap 5, BUN 31 H, Creatinine 2.50 H, Estim Creat Clear Calc 19.38, Est GFR (MDRD) Af Amer 25 L, Est GFR (MDRD) Non-Af 20 L, BUN/Creatinine Ratio 12.4, Glucose 99, Calcium 7.4 L Rhythm Strip Rhythm Strip: Sinus Rhythm Rate: 72 Ectopy: None Cardiology Labs/Tests 12/29/22 05:20: Sodium 145, Potassium 4.4, Chloride 125 H, Carbon Dioxide 15.0 L, Anion Gap 5, BUN 31 H, Creatinine 2.50 H, Est GFR (MDRD) Af Amer 25 L, Est GFR(MDRD) Non-Af 20 L, BUN/Creatinine Ratio 12.4, Glucose 99, Calcium 7.4 L Rhythm: EKG: ECHO: Stress Test: Cardiac Cath: PCI: CT Surgery: Holter monitor: EPS: PPM: CXR: Chest CT Scan: Physical Exam Const alert and oriented x3 HEENT normocephalic Eyes no scleral icterus Resp normal respiratory effort Cardio regular rate Psych mental status grossly normal Assessment & Plan Assessment/Plan (1) Unstable angina: PLAN: Patient appears to have unstable angina. She will eventually need coronary angiography. However it is better to wait till her creatinine comes back to normal prior to proceeding with coronary angiography. Her acute kidney failure is being addressed by the primary service at this time. (2) Paroxysmal atrial fibrillation: PLAN: Anticoagulation can be discussed with the patient after coronary angiography. Charges/Coding Visit Charges Inpatient E&M: 57462 Subs Hosp L2 12/29/22 1532 <Electronically signed by Jorge Hills MD> Cosigner Signature (if applicable): CC: ~ Signed [facility] Work Phone: [phone]) 345-699907-09-2023 Progress note Author Sarath Ceja [facility] December 29, 2022 10:22am Note Date/Time December 29, 2022 10:22 am [facility] Medical Records Department [address] [place] [address] Progress Note - Hospitalist 12/29/22 1020 MR#: [id number] Acct: [id number] Name: TY YU Rep #:[id number] : 1955 67 From: Sarath Ceja DO PCP: Dr. Magan Amador MD Status:ADM IN Location: [place] [address] Reason for Visit Reason for Visit: Diagnoses Unstable angina (12/26/22) Acute kidney failure, unspecified (12/26/22) Subjective Subjective Patient was seen and examined today, creatinine is minimally improved today, shedoes not complain of any chest pain. Objective Data Objective Data Vital Signs: Vital Signs Temp Pulse Resp BP Pulse Ox O2 Del Method 97.5 F L 56 L 18 136/69 H 99 Room Air 12/29/22 08:25 12/29/22 08:25 12/29/22 08:25 12/29/22 08:25 12/29/22 08:25 12/29/22 08:25 Oxygen Delivery Method Room Air Weight: 67.9 kg Body Mass Index (BMI) 24.9 Intake & Output: Intake and Output for Last 24 Hours 12/27/22 12/28/22 12/29/22 23:59 23:59 23:59 Intake Total 3937.35 / 3937.35 3702.5 / 3702.5 100 / 100 Balance 3937.35 / 3937.35 3702.5 / 3702.5 100 / 100 Lab / Micro Data 12/26/22 13:46 12/29/22 05:20 Labs: Laboratory Results - last 24 hr 12/29/22 05:20: Sodium 145, Potassium 4.4, Chloride 125 H, Carbon Dioxide 15.0 L, Anion Gap 5, BUN 31 H, Creatinine 2.50 H, Estim Creat Clear Calc 19.38, Est GFR (MDRD) Af Amer 25 L, Est GFR (MDRD) Non-Af 20 L, BUN/Creatinine Ratio 12.4, Glucose 99, Calcium 7.4 L Rhythm Strip Rhythm Strip: Sinus Rhythm Rate: 72 Ectopy: None Physical Exam Narrative alert, oriented x3, no apparent distress and healthy appearing General Appearance: cooperative, well kempt and well developed Orientation / Consciousness: awake, oriented to person, oriented to place and oriented to time HEENT normocephalic and moist oral mucous membranes Eyes PERRL, EOMs intact bilaterally and conjunctivae normal Neck supple, no JVD, thyroid normal and no carotid bruits General: trachea midline Resp normal respiratory effort, no retractions, no use of accessory muscles and clearto auscultation bilaterally Auscultation: Negative for rales, rhonchi or wheezes Cardio regular rate, regular rhythm, S1 normal heart sound, S2 normal heart sound, no murmurs, no rub and no gallops GI normal to inspection, nondistended, normoactive bowel sounds, soft to palpation,non-tender and non-distended GI Narrative: Colostomy is in place Extremity no clubbing, cyanosis or edema Skin no rashes or lesions noted General Skin Exam: no breakdown Neuro oriented x3, CN's II-XII intact bilaterally, moves all extremities, no focal motor deficits and no sensory deficits noted Sensorium / Orientation: awake and alert Speech: speech normal Psych affect normal Assessment & Plan Assessment/Plan (1) Acute renal failure: PLAN: Plan 1. Unstable angina-patient's cardiac enzymes remain normal, she has had no episodes of chest discomfort. Again the plan is for heart catheterization on 12/30/2022. This depends on what her renal functions are on that day. #2 acute renal failure-etiology unclear at this point, continue present IV fluidadministration, recheck BMP in the morning #3 essential hypertension-patient will remain on her present medications #4 hyperlipidemia-patient will remain on her lipid medications #5 mild dementia-patient will remain on her dementia medications #6 chronic depression/anxiety-patient will remain on her antidepressant #7 type 2 diabetes-patient is on metformin at home, this will be held due to herrenal function #8 hypokalemia-etiology unclear, corrected at this time, patient is on IV fluidscontaining potassium, her BMP will be checked tomorrow #9 GERD-patient will be kept on a PPI Total clinical time spent by myself addressing patient's medical issues, reviewing all of her data, and collaborating with patient's care team: 35 minutes Charges/Coding Visit Charges Inpatient E&M: 96923 Subs Hosp L2 12/29/22 1022 <Electronically signed by Sarath Ceja DO> Cosigner Signature (if applicable): CC: ~ Signed [facility] Work Phone: 1(480) 994-792507-08-2023 Progress note Author Sarath [facility] December 28, 2022 11:21am Note Date/Time December 28, 2022 11:21 am [facility] Medical Records Department [address] [facility] [place] [address] Progress Note - Hospitalist 12/28/22 1116 MR#: [id number] Acct: [id number] Name: TY UY Rep #:[id number] : 1955 67 From: Sarath Ceja DO PCP: Dr. Magan Amador MD Status:ADM IN Location: [place] [address] Reason for Visit Reason for Visit: Diagnoses Unstable angina (12/26/22) Acute kidney failure, unspecified (12/26/22) Subjective Subjective Patient was seen and examined today, she complained of insomnia last night and she also complained of nausea. Creatinine is improved to 2.82 today with BUN of44, I have elected to slow down the patient's IV fluids at this time and recheckher lab tomorrow. She has no complaints of any chest pain. Objective Data Objective Data Vital Signs: Vital Signs Temp Pulse Resp BP Pulse Ox O2 Del Method 97.7 F L 67 18 124/53 H 98 Room Air 12/28/22 09:09 12/28/22 09:22 12/28/22 09:09 12/28/22 09:09 12/28/22 09:09 12/28/22 09:09 Oxygen Delivery Method Room Air Weight: 67.9 kg Body Mass Index (BMI) 24.9 Intake & Output: Intake and Output for Last 24 Hours 12/26/22 12/27/22 12/28/22 23:59 23:59 23:59 Intake Total 1390.80 / 1390.80 3937.35 / 3937.35 1999 Balance 1390.80 / 1390.80 3937.35 / 3937.35 1999 Lab / Micro Data 12/26/22 13:46 12/28/22 05:35 Labs: Laboratory Results - last 24 hr 12/27/22 14:00: APTT 66.4 H 12/28/22 05:35: Sodium 145, Potassium 3.7, Chloride 125 H, Carbon Dioxide 15.0 L, Anion Gap 5, BUN 44 H, Creatinine 2.82 H, Estim Creat Clear Calc 17.18, Est GFR (MDRD) Af Amer 21 L, Est GFR (MDRD) Non-Af 18 L, BUN/Creatinine Ratio 15.6, Glucose 90, Calcium 7.1 L Radiography Diagnostic Testing: Radiology Impression Echocardiogram 12/27/22 05:55 Interpretation Summary The estimated ejection fraction is 65 %. The left atrium is mildly enlarged. Ordering Physician: Sarath Ceja Referring Physician: MAGAN AMADOR Performed By: Kim Sanchez RDCS Rhythm Strip Rhythm Strip: Sinus Rhythm Rate: 72 Ectopy: None Physical Exam Narrative alert, oriented x3, no apparent distress and healthy appearing General Appearance: cooperative, well kempt and well developed Orientation / Consciousness: awake, oriented to person, oriented to place and oriented to time HEENT normocephalic and moist oral mucous membranes Eyes PERRL, EOMs intact bilaterally and conjunctivae normal Neck supple, no JVD, thyroid normal and no carotid bruits General: trachea midline Resp normal respiratory effort, no retractions, no use of accessory muscles and clearto auscultation bilaterally Auscultation: Negative for rales, rhonchi or wheezes Cardio regular rate, regular rhythm, S1 normal heart sound, S2 normal heart sound, no murmurs, no rub and no gallops GI normal to inspection, nondistended, normoactive bowel sounds, soft to palpation,non-tender and non-distended GI Narrative: Colostomy is in place Extremity no clubbing, cyanosis or edema Skin no rashes or lesions noted General Skin Exam: no breakdown Neuro oriented x3, CN's II-XII intact bilaterally, moves all extremities, no focal motor deficits and no sensory deficits noted Sensorium / Orientation: awake and alert Speech: speech normal Psych affect normal Assessment & Plan Assessment/Plan (1) Acute renal failure: PLAN: Plan 1. Unstable angina-patient's cardiac enzymes remain normal, she has had no episodes of chest discomfort. Again the plan is for heart catheterization on 12/30/2022. This depends on what her renal functions are on that day. #2 acute renal failure-etiology unclear at this point, patient will be given IV fluids and labs will be monitored, creatinine is improved and I will lower her IV fluid rate. #3 essential hypertension-patient will remain on her present medications #4 hyperlipidemia-patient will remain on her lipid medications #5 mild dementia-patient will remain on her dementia medications #6 chronic depression/anxiety-patient will remain on her antidepressant #7 type 2 diabetes-patient is on metformin at home, this will be held due to herrenal function #8 hypokalemia-etiology unclear, patient is on IV fluids containing potassium, her BMP will be checked tomorrow #9 GERD-patient will be kept on a PPI Total clinical time spent by myself addressing patient's medical issues, reviewing all of her data, and collaborating with patient's care team: 35 minutes Charges/Coding Visit Charges Inpatient E&M: 88479 Subs Hosp L2 12/28/22 1121 <Electronically signed by Sarath Ceja DO> Cosigner Signature (if applicable): CC: ~ Signed [facility] Work Phone: 1(441) 668-466607-07-2023 Progress note Author Sarath Ceja [facility] December 27, 2022 5:53pm Note Date/Time December 27, 2022 5:53p m [facility] Medical Records Department [address] [facility] [place] [address] Progress Note - Hospitalist 12/27/22 0434 MR#: [id number] Acct: [id number] Name: TY YU Rep #:[id number] : 1955 67 From: Sarath Ceja DO PCP: Dr. Magan Amador MD Status:ADM IN Location: [place] [address] Reason for Visit Reason for Visit: Diagnoses Unstable angina (12/26/22) Acute kidney failure, unspecified (12/26/22) Subjective Subjective Patient was seen and examined today, I talked with cardiology about her care. Patient's sodium is improved slightly today, I have elected to increase her IV fluid rate, she will not be taken for heart cath until this Friday due to her renal functions. Patient's potassium today was 3.4. I talked with cardiology and they were okay with stopping her heparin drip. Objective Data Objective Data Vital Signs: Vital Signs Temp Pulse Resp BP Pulse Ox O2 Del Method 98.2 F 56 L 16 120/71 100 Room Air 12/27/22 15:43 12/27/22 15:43 12/27/22 15:43 12/27/22 15:43 12/27/22 15:43 12/27/22 15:46 Oxygen Delivery Method Room Air Weight: 67.9 kg Body Mass Index (BMI) 24.9 Intake & Output: Intake and Output for Last 24 Hours 12/25/22 12/26/22 12/27/22 23:59 23:59 23:59 Intake Total 1390.80 / 1390.80 2437.35 / 2437.35 Balance 1390.80 / 1390.80 2437.35 / 2437.35 Lab / Micro Data 12/26/22 13:46 12/27/22 07:00 Labs: Laboratory Results - last 24 hr 12/26/22 16:30: Triglycerides 75, Cholesterol 97, LDL Cholesterol 36, VLDL Cholesterol 15, HDL Cholesterol 46 12/26/22 20:01: Troponin I High Sens 27 12/26/22 22:23: APTT 112.7 H* 12/27/22 07:00: APTT 48.1 H, Sodium 141, Potassium 3.4 L, Chloride 115 H, CarbonDioxide 17.0 L, Anion Gap 9, BUN 62 H, Creatinine 4.22 H, Estim Creat Clear Calc11.48, Est GFR (MDRD) Af Amer 13 L, Est GFR (MDRD) Non-Af 11 L, BUN/Creatinine Ratio 14.7, Glucose 101, Calcium 7.4 L 12/27/22 14:00: APTT 66.4 H Radiography Diagnostic Testing: Radiology Impression Renal Ultrasound 12/26/22 18:39 IMPRESSION: No acute findings in the retroperitoneum. Electronically Signed: Arden Jameson MD at 19:31 EDT , Echocardiogram 12/27/22 05:55 Interpretation Summary The estimated ejection fraction is 65 %. The left atrium is mildly enlarged. Ordering Physician: Sarath Ceja Referring Physician: MAGAN AMADRO Performed By: Kim Sanchez RDCS Rhythm Strip Rhythm Strip: Sinus Rhythm Rate: 72 Ectopy: None Physical Exam Const alert, oriented x3, no apparent distress and healthy appearing General Appearance: cooperative, well kempt and well developed Orientation / Consciousness: awake, oriented to person, oriented to place and oriented to time HEENT normocephalic and moist oral mucous membranes Eyes PERRL, EOMs intact bilaterally and conjunctivae normal Neck supple, no JVD, thyroid normal and no carotid bruits General: trachea midline Resp normal respiratory effort, no retractions, no use of accessory muscles and clearto auscultation bilaterally Auscultation: Negative for rales, rhonchi or wheezes Cardio regular rate, regular rhythm, S1 normal heart sound, S2 normal heart sound, no murmurs, no rub and no gallops GI normal to inspection, nondistended, normoactive bowel sounds, soft to palpation,non-tender and non-distended GI Narrative: Colostomy is in place Extremity no clubbing, cyanosis or edema Skin no rashes or lesions noted General Skin Exam: no breakdown Neuro oriented x3, CN's II-XII intact bilaterally, moves all extremities, no focal motor deficits and no sensory deficits noted Sensorium / Orientation: awake and alert Speech: speech normal Psych affect normal Assessment & Plan Assessment/Plan (1) Acute renal failure: PLAN: Plan 1. Unstable angina-patient's cardiac enzymes remain normal, she has had no episodes of chest discomfort. Again the plan is for heart catheterization on 12/30/2022. This depends on what her renal functions are on that day. #2 acute renal failure-etiology unclear at this point, patient will be given IV fluids and labs will be monitored #3 essential hypertension-patient will remain on her present medications #4 hyperlipidemia-patient will remain on her lipid medications #5 mild dementia-patient will remain on her dementia medications #6 chronic depression/anxiety-patient will remain on her antidepressant #7 type 2 diabetes-patient is on metformin at home, this will be held due to herrenal function #8 hypokalemia-etiology unclear, patient is on IV fluids containing potassium, her BMP will be checked tomorrow #9 GERD-patient will be kept on a PPI Total clinical time spent by myself addressing patient's medical issues, reviewing all of her data, and collaborating with patient's care team: 35 minutes Charges/Coding Visit Charges Inpatient E&M: 21059 Subs Hosp L2 12/27/221752 <Electronically signed by Sarath Ceja DO> Cosigner Signature (if applicable): CC: ~ Signed [facility] Work Phone: 1(553) 138-344607-07-2023 Consult note Author Jorge Hills [facility] December 27, 2022 3:30pm Note Date/Time December 27, 2022 3:08p m [facility] Medical Records Department [address] [place] [address] Consultation - Cardiology 12/27/22 1504 MR#: [id number] Acct: [id number] Name: TY YU Rep #:[id number] : 1955 67 From: Jorge baez MD PCP: Dr. Magan Amador MD Status:ADM IN Location: [facility] [id number]- [id number] Assessment & Plan Assessment/Plan (1) Unstable angina: PLAN: Patient appears to have unstable angina. She will eventually need coronary angiography. However it is better to wait till her creatinine comes backto normal prior to proceeding with coronary angiography. Her acute kidney failure is being addressed by the primary service at this time. It is reasonable to discontinue IV heparin. HPI Consult Data Date of Consult: 12/27/22 HPI Narrative Reason for Consultation: Chest pain HPI Narrative: TY YU, is a 67 F who presents with chest pain that has been progressivelygetting worse over the last 2 months. Chest pain is retrosternal, pressure-likeoccurs with exertion. She has been getting it with lesser degrees of exertion over the last few weeks. Patient had a stent in 2013 and states that her chest pain feels similar to what she had prior to the stent placement. Patient was found to have acute renal failure with a creatinine of over 5. With IV fluids this has come down a little bit. Patient was recently started on hydrochlorothiazide and she states that she does not drink that much water. Her troponinwas negative x3 and a 2D echo revealed normal systolic function with no significant regional wall motion abnormalities. Review of systems: All systems reviewed. All else is negative except that in [facility] Medical History Abdominal pain Altered mental status Anemia Anxiety Atrial fibrillation Atrial fibrillation with rapid ventricular response Carpal tunnel syndrome Chest pain, unspecified Chronic bronchitis Chronic low back pain Colitis Constipation Debility Depression Diverticulitis Encephalopathy Failure of outpatient treatment Fecal impaction of colon GERD (gastroesophageal reflux disease) High cholesterol High triglycerides History of Clostridium difficile infection History of left heart catheterization (LHC) (~02/13/16) HTN (hypertension) Hyperlipidemia Hypokalemia Insomnia Irritable bowel syndrome with constipation Large bowel obstruction Nausea & vomiting Osteoarthritis Restless legs syndrome Rheumatoid arthritis Sepsis Sigmoid diverticulitis Skin ulcer Tobacco dependence syndrome Visual hallucinations Home Medications pantoprazole 40 mg tablet,delayed release 40 mg PO DAILY REFLUX 03/21/17 [History Last Taken 12/25/22] ezetimibe 10 mg tablet 10 mg PO DAILY 01/27/19 [History Last Taken 12/25/22] acetaminophen 500 mg tablet 1,000 mg (2 x 500 mg) PO Q6H PRN PRN Pain Score 1- 3/10 09/20/19 [Rx Last Taken Unknown] atorvastatin 80 mg tablet 80 mg PO QHS #30 tabs 09/20/19 [Rx Last Taken 12/25/22] fenofibrate 54 mg tablet 54 mg PO DAILY 04/18/20 [History Last Taken 12/25/22] diltiazem HCl 180 mg capsule,extended release 24 hr 180 mg PO DAILY #90 caps 05/08/22 [Rx Last Taken 12/25/22] sucralfate 1 gram tablet 1 g PO TID PRN stomachache 05/08/22 [History Last Taken 12/25/22] memantine 2 mg/mL oral solution 5 mg (2.5 mL) PO BID #450 mL 08/12/22 [Rx Last Taken 12/25/22] nitroglycerin 0.4 mg sublingual tablet 0.4 mg sublingual Q5-15M PRN chest pain #25 tabs 11/11/22 [Rx Last Taken Unknown] fluoxetine 40 mg capsule 40 mg PO DAILY #90 caps 11/13/22 [Rx Last Taken 12/25/22] aspirin 81 mg tablet,delayed release (Adult Aspirin Regimen) 81 mg PO DAILY 12/26/22 [History Last Taken 12/25/22] galantamine 4 mg/mL oral solution 10 mg PO BID 12/26/22 [History Last Taken 12/25/22] hydrochlorothiazide 12.5 mg capsule 12.5 mg PO DAILY 12/26/22 [History Last Taken 12/25/22] latanoprost 0.005 % eye drops 1 drp ophthalmic (eye) QHS 12/26/22 [History Last Taken 12/25/22] metformin 500 mg tablet,extended release 24 hr 500 mg PO DAILY DM 12/26/22 [History Last Taken 12/25/22] mirtazapine 30 mg tablet 30 mg PO QHS 12/26/22 [History Last Taken 12/25/22] mometasone 50 mcg/actuation nasal spray 1 - 2 spray intranasal Q12H ALLERGIES 12/26/22 [History Last Taken Unknown] polyethylene glycol 400 1 % eye drops (Visine Dry Eye Relief) 1 - 2 drp EACH [id number] PRN dry eye(s) 12/26/22 [History Last Taken 12/25/22] Allergy/AdvReac Type Severity Reaction Status Date / Time bee venom protein (honey bee) Allergy Anaphylaxis Verified 12/26/22 13:14 [id number] Reductase AdvReac Severe Myalgias Verified 12/26/22 13:14 Inhibitor promethazine HCl AdvReac Vomiting Verified 12/26/22 13:14 [From Phenergan] tuberculin, purified protein AdvReac Swelling Verified 12/26/22 13:14 deriva Family History Mother Heart disease Myocardial infarction CVA (cerebral vascular accident) Sister Diabetes Brother Parkinson disease Surgical History Cataract extraction status of left eye History of cardioversion (09/02/19) History of cholecystectomy History of colostomy History of creation of ostomy History of hand surgery History of hysterectomy History of laparoscopy History of partial colectomy Social History Smoking Status: Current some day smoker tobacco type: cigarettes Tobacco: How many years used: 40 alcohol intake: never substance use type: does not use caffeine: Yes Type: carbonated beverages and coffee what type of physical activity do you participate in: walking frequency: 1-2 times per week brandon/church: Jew seatbelt use: always Physical Exam Const alert and oriented x3 HEENT normocephalic Eyes no scleral icterus Resp normal respiratory effort Cardio regular rate Psych mental status grossly normal Risk Stratification Risk Stratification Applicable: No Charges/Coding Visit Charges Inpatient E&M: 48161 Init Hosp L2 Objective Data Vital Signs: Vital Signs Temp Pulse Resp BP Pulse Ox O2 Del Method 97.7 F L 63 16 115/61 100 Room Air 12/27/22 09:01 12/27/22 09:07 12/27/22 09:01 12/27/22 09:01 12/27/22 09:11 12/27/22 09:11 Oxygen Delivery Method Room Air Weight: 149 lb 11.102 oz Body Mass Index (BMI) 24.9 Intake & Output: Intake and Output for Last 24 Hours 12/25/22 12/26/22 12/27/22 23:59 23:59 23:59 Intake Total 1390.80 / 1390.80 2426.45 / 2426.45 Balance 1390.80 / 1390.80 2426.45 / 2426.45 Lab / Micro Data 12/26/22 13:46 12/27/22 07:00 Labs: Laboratory Results - last 24 hr 12/26/22 16:30: Troponin I High Sens 21, Triglycerides 75, Cholesterol 97, LDL Cholesterol 36, VLDL Cholesterol 15, HDL Cholesterol 46 12/26/22 20:01: Troponin I High Sens 27 12/26/22 22:23: APTT 112.7 H* 12/27/22 07:00: APTT 48.1 H, Sodium 141, Potassium 3.4 L, Chloride 115 H, CarbonDioxide 17.0 L, Anion Gap 9, BUN 62 H, Creatinine 4.22 H, Estim Creat Clear Calc11.48, Est GFR (MDRD) Af Amer 13 L, Est GFR (MDRD) Non-Af 11 L, BUN/Creatinine Ratio 14.7, Glucose 101, Calcium 7.4 L 12/27/22 14:00: APTT 66.4 H Rhythm Strip Rhythm Strip: Sinus Rhythm Rate: 72 Ectopy: None Cardiology Labs/Tests 12/26/22 16:30: Triglycerides 75, Cholesterol 97, LDL Cholesterol 36, VLDL Cholesterol 15, HDL Cholesterol 46 12/26/22 22:23: APTT 112.7 H* 12/27/22 07:00: APTT 48.1 H, Sodium 141, Potassium 3.4 L, Chloride 115 H, CarbonDioxide 17.0 L, Anion Gap 9, BUN 62 H, Creatinine 4.22 H, Est GFR (MDRD) Af Amer13 L, Est GFR (MDRD) Non-Af 11 L, BUN/Creatinine Ratio 14.7, Glucose 101, Calcium 7.4 L 12/27/22 14:00: APTT 66.4 H Rhythm: EKG: ECHO: Stress Test: Cardiac Cath: PCI: CT Surgery: Holter monitor: EPS: PPM: CXR: Chest CT Scan: Radiography Diagnostic Testing: Radiology Impression Renal Ultrasound 12/26/22 18:39 IMPRESSION: No acute findings in the retroperitoneum. Electronically Signed: Arden Jameson MD at 19:31 EDT , Echocardiogram 12/27/22 05:55 Interpretation Summary The estimated ejection fraction is 65 %. The left atrium is mildly enlarged. Ordering Physician: Sarath Ceja Referring Physician: MAGAN AMADOR Performed By: Kim Sacnhez RDCS 12/27/22 1508 <Electronically signed by Jorge Hills MD> Cosigner Signature (if applicable): CC: Dr. Magan Amador MD; Dr. Jorge Hills MD~ Signed ADDENDUM by Dr. Jorge Hills MD on 12/27/22 at 1530 Addendum Continue IV heparin at this time. Patient has history of paroxysmal A-fib. Long- term anticoagulation also has to be addressed with her. 12/27/22 1530<Electronically signed by Jorge Hills MD> Cosigner Signature (if applicable): cc: Dr. Magan Amador MD; Dr. Jorge Hills MD ~* Signed [facility] Work Phone: 1(644) 291-694707-07-2023 Discharge summary Author Brain Doherty [facility] December 26, 2022 10:33pm Note Date/Time December 26, 2022 1:35p m [facility] Medical Records Department [address] [facility] [place] [address] Emergency Department Summary 12/26/22 MR#: [id number] Acct: [id number] Name: TY YU Rep #:[id number] : 1955 67 From: Brain Doherty MD PCP: Dr. Magan Amador MD Status:ADM IN Location: [place] [address] HPI History of Present Illness Chief Complaint: Chest Pain Informant: patient Narrative Narrative: Patient has been having exertional chest discomfort for the past 2 months. Overthe past couple weeks it has been with light activity, she has been having episodes of chest discomfort at rest as well. She states when she gets it it issubsternal heaviness like someone is sitting on her chest, she gets dyspneic, fatigued with it. Lately it has been with extremely light activity such as walking around the house, changing the sheets on the bed, etc. At time she has had symptoms so severe that she felt like she was going to pass out but has not had that happen. The discomfort is nonpleuritic. She has a cardiac stent that was placed in 2012. She follows with the heart group here and had a stress testlast time was last year that was unremarkable. She has not gone to the doctor in the past 2 months until today when she went to urgent care, they did an EKG was it was abnormal and sent her here to the ER. She states walking into the ERwith her son the symptoms became quite significant, they are lessened now that she is resting in bed but still present. [facility] Medical History Abdominal pain Altered mental status Anemia Anxiety Atrial fibrillation Atrial fibrillation with rapid ventricular response Carpal tunnel syndrome Chest pain, unspecified Chronic bronchitis Chronic low back pain Colitis Constipation Debility Depression Diverticulitis Encephalopathy Failure of outpatient treatment Fecal impaction of colon GERD (gastroesophageal reflux disease) High cholesterol High triglycerides History of Clostridium difficile infection History of left heart catheterization (LHC) (~02/13/16) HTN (hypertension) Hyperlipidemia Hypokalemia Insomnia Irritable bowel syndrome with constipation Large bowel obstruction Nausea & vomiting Osteoarthritis Restless legs syndrome Rheumatoid arthritis Sepsis Sigmoid diverticulitis Skin ulcer Tobacco dependence syndrome Visual hallucinations Home Medications pantoprazole 40 mg tablet,delayed release 40 mg PO DAILY REFLUX 03/21/17 [History Last Taken 12/25/22] ezetimibe 10 mg tablet 10 mg PO DAILY 01/27/19 [History Last Taken 12/25/22] acetaminophen 500 mg tablet 1,000 mg (2 x 500 mg) PO Q6H PRN PRN Pain Score 1- 3/09/20/19 [Rx Last Taken Unknown] atorvastatin 80 mg tablet 80 mg PO QHS #30 tabs 03/30/20 [Rx Last Taken 12/25/22] fenofibrate 54 mg tablet 54 mg PO DAILY 04/18/20 [History Last Taken 12/25/22] diltiazem HCl 180 mg capsule,extended release 24 hr 180 mg PO DAILY #90 caps 05/08/22 [Rx Last Taken 12/25/22] sucralfate 1 gram tablet 1 g PO TID PRN stomachache 05/08/22 [History Last Taken 12/25/22] memantine 2 mg/mL oral solution 5 mg (2.5 mL) PO BID #450 mL 08/12/22 [Rx Last Taken 12/25/22] nitroglycerin 0.4 mg sublingual tablet 0.4 mg sublingual Q5-15M PRN chest pain #25 tabs 11/11/22 [Rx Last Taken Unknown] fluoxetine 40 mg capsule 40 mg PO DAILY #90 caps 11/13/22 [Rx Last Taken 12/25/22] aspirin 81 mg tablet,delayed release (Adult Aspirin Regimen) 81 mg PO DAILY 12/26/22 [History Last Taken 12/25/22] galantamine 4 mg/mL oral solution 10 mg PO BID 12/26/22 [History Last Taken 12/25/22] hydrochlorothiazide 12.5 mg capsule 12.5 mg PO DAILY 12/26/22 [History Last Taken 12/25/22] latanoprost 0.005 % eye drops 1 drp ophthalmic (eye) QHS 12/26/22 [History Last Taken 12/25/22] metformin 500 mg tablet,extended release 24 hr 500 mg PO DAILY DM 12/26/22 [History Last Taken 12/25/22] mirtazapine 30 mg tablet 30 mg PO QHS 12/26/22 [History Last Taken 12/25/22] mometasone 50 mcg/actuation nasal spray 1 - 2 spray intranasal Q12H ALLERGIES 12/26/22 [History Last Taken Unknown] polyethylene glycol 400 1 % eye drops (Visine Dry Eye Relief) 1 - 2 drp EACH EYEQ4H PRN dry eye(s) 12/26/22 [History Last Taken 12/25/22] Allergy/AdvReac Type Severity Reaction Status Date / Time bee venom protein (honey bee) Allergy Anaphylaxis Verified 12/26/22 13:14 [id number] Reductase AdvReac Severe Myalgias Verified 12/26/22 13:14 Inhibitor promethazine HCl AdvReac Vomiting Verified 12/26/22 13:14 [From Phenergan] tuberculin, purified protein AdvReac Swelling Verified 12/26/22 13:14 deriva Family History Mother Heart disease Myocardial infarction CVA (cerebral vascular accident) Sister Diabetes Brother Parkinson disease Surgical History Cataract extraction status of left eye History of cardioversion (09/02/19) History of cholecystectomy History of colostomy History of creation of ostomy History of hand surgery History of hysterectomy History of laparoscopy History of partial colectomy Social History Smoking Status: Current some day smoker tobacco type: cigarettes Tobacco: How many years used: 40 alcohol intake: never substance use type: does not use caffeine: Yes Type: carbonated beverages and coffee what type of physical activity do you participate in: walking frequency: 1-2 times per week brandon/church: Jew seatbelt use: always ROS ROS ED Constitutional Constitutional ED: Reports fatigue; Denies chills or fever(s) Eyes Eyes: Denies change in vision or diplopia ENT ENT ED: Denies rhinorrhea or sore throat Cardiovascular Cardiovascular: Reports chest pain; Denies palpitations Respiratory/Chest Respiratory/Chest: Reports dyspnea on exertion; Denies cough or dyspnea Gastrointestinal Gastrointestinal: Denies abdominal pain, diarrhea, nausea or vomiting Genitourinary Genitourinary ED: Denies dysuria or hematuria Musculoskeletal Musculoskeletal: Denies back pain or neck pain Integumentary Denies abscess or rash Neurologic Neurologic: Denies headache(s), paresthesias or weakness Psychiatric Psychiatric: Denies anxiety or suicidal thoughts EXAM Physical Exam Const Vital Signs: 12/26/22 13:08 12/26/22 13:10 12/26/22 14:01 Temperature 97.6 F L Temperature Source Oral Pulse Rate 76 74 Respiratory Rate 18 16 Blood Pressure 141/89 H Blood Pressure Mean 106 Pulse Ox 100 100 Oxygen Delivery Method Room Air Room Air Room Air Positive well nourished and well developed General Appearance ED: well developed and NAD HEENT Reports moist mucous membranes normocephalic and atraumatic Eyes PERRL and EOMs intact bilaterally Neck full ROM and supple Resp normal respiratory effort and clear to auscultation bilaterally Cardio regular rate, regular rhythm and no murmurs GI non-distended GI Narrative: Epigastric tenderness no pulsatile mass palpable; that is my hiatal hernia Auscultation: normoactive bowel sounds Palpation: soft Back/Spine no CVA tenderness General Back: other FROM Extremity normal to inspection and no calf tenderness General Extremety ED: Negative for edema, pulses abnormal or tenderness General Extremity: Negative for edema or pulses abnormal Neuro oriented x3, CN's II-XII intact bilaterally and no sensory deficits noted Sensorium / Orientation: awake and alert Motor Exam: strength 5/5 throughout Skin no rashes or lesions noted and no wounds Heart Score History: Highly Suspicious ECG: Nonspecific Repolarization Age: >/= 65 years Risk Factors: >/= 3 Risk Factors or History of CAD Troponin: </= Normal Limit Score: 7 MDM MDM MDM Narrative Medical decision making narrative: Patient feeling better with nitroglycerin, but obtained a significant headache which we treated with Tylenol so she did not want anymore, discomfort is barely there. Her potassium came back very low at 2.6, and she is in acute renal failure which is new. In addition, her troponin returned normal. It is possible some of her EKG changes are related to her potassium but my suspicion is that it truly is acute coronary syndrome. I discussed with Dr. Jeana gregoryadvismannie putting her on heparin, and he will see her in consultation. [facility] She is clinically and hemodynamically stable at this time. Lab Data Attestation: I reviewed the patient's lab results. Labs: Laboratory Results - last 24 hr 12/26/22 13:46 WBC 9.3 RBC 3.98 L Hgb 11.7 L Hct 34.4 L MCV 86.4 MCH 29.4 MCHC 34.0 RDW Std Deviation 40.9 RDW Coeff of Wilmar 13.1 Plt Count 278 MPV 11.9 Immature Gran % (Auto) 0.600 Neut % (Auto) 65.0 Lymph % (Auto) 23.9 [place] % (Auto) 8.4 Eos % (Auto) 1.7 Baso % (Auto) 0.4 Absolute Neuts (auto) 6.0 Absolute Lymphs (auto) 2.21 Nucleated RBC % 0 APTT 25.2 Sodium 136 Potassium 2.6 L* Chloride 103 Carbon Dioxide 18.0 L Anion Gap 15 BUN 80 H Creatinine 5.53 H Estim Creat Clear Calc 6.99 Est GFR (MDRD) Af Amer 10 L Est GFR (MDRD) Non-Af 8 L BUN/Creatinine Ratio 14.5 Glucose 94 Calcium 8.4 L Troponin I High Sens 20 Radiography Diagnostic Testing: Clinical Impression(s) from Imaging Studies Chest X-Ray 12/26/22 13:52 IMPRESSION: No acute abnormality is seen. Electronically Signed: Delta Medina MD at 14:07 EDT , Rhythm Strip Rhythm Strip: Sinus Rhythm Rate: 72 Ectopy: None EKG Initial EKG: Attestation: I personally reviewed and interpreted this EKG as follows: Interpretation: Sinus Rhythm, Inverted T-Waves (sept-lat and inf leads) and S-T Depression (less than 1mm sept-lat and inf leads) Prior EKG tracings: available for review Prior: Changed Management Discussion w/another healthcare provider: Hospitalist and Decontaminator (Cardiology) Critical Care Time Critical Care Time: Yes Critical care time (excluding procedures): 30-74 minutes (33 min), Including time spent:, Discussing w/Patient &/or Family/Real Estate Subagent, Discussing w/Consultants, Arranging Admission or Transfer and Performing Direct Patient Care at Bedside Discharge Plan Dx/Rx/DC Orders Clinical Impression: Unstable angina, Acute renal failure, Hypokalemia Disposition Disposition: Acute Care Hospital [facility] What to do if you have Problems For any increased pain, shortness of breath, bleeding, nausea or vomiting, chestpain, or any unexpected problems, contact your Primary Care Provider. Call [facility] ([phone]) or report to the closest Emergency Room. Call 911 if necessary. 12/26/222232 <Electronically signed by Brain Doherty MD> Cosigner Signature (if applicable): CC: Dr. Magan Amador MD ~ Signed [facility] Work Phone: 1(337) 820-289707-06-2023 History and physical note Author Sarath Ceja [facility] December 26, 2022 8:26pm Note Date/Time December 26, 2022 8:26p m [facility] Medical Records Department [address] [place] [address] H&P Exam - Hospitalist 12/26/222014 MR#: [id number] Acct: [id number] Name: TY YU Rep #:[id number] : 1955 67 From: Sarath Ceja DO PCP: Dr. Magan Amador MD Status:ADM IN Location: [place] [address] HPI - General General Date of Admission: 12/26/22 Date of Service: 12/26/22 Chief Complaint: Intermittent chest pain HPI Narrative TY YU, is a 67 F who presents to the emergency room at [facility] with complaints of intermittent chest pain which has worsened over the last 2 months. She was sent in from her PCPs office due to concerns of EKG changes indicating possible ischemia. She states with minimal exertion she gets precordial chest discomfort which shedescribes as pressure-like in nature, she has a past history of coronary artery disease and stent placement in 2013-patient states it was 2013 but the medical record indicates it was 2012, she also states she had a heart catheterization done in 2016 but did not require any intervention. She has not been following up with a rn orthopaedic on a frequent basis. Work-up in the emergency room included an EKG which showed nonspecific ST-T wavechanges in the anterior precordial leads, she appeared to be in sinus rhythm, chest x-ray showed no abnormality, troponin was unremarkable, patient's creatinine however was elevated at 5.53 with a BUN of 80, her potassium was alsolow at 2.6. Patient's last creatinine was obtained in her physician's office inMay of this year and her creatinine was 1.14. Patient has a history of essential hypertension, hyperlipidemia, and mild dementia. Patient was admitted to PCU, she was placed on a heparin drip after cardiology was contacted by the emergency room physician discussed the case. Patient will be given IV fluids due to her elevated creatinine and will be given potassium replacement. Patient will undergo a renal ultrasound to rule out obstruction, I briefly discussed the case with cardiology today. [facility] Medical History Abdominal pain Altered mental status Anemia Anxiety Atrial fibrillation Atrial fibrillation with rapid ventricular response Carpal tunnel syndrome Chest pain, unspecified Chronic bronchitis Chronic low back pain Colitis Constipation Debility Depression Diverticulitis Encephalopathy Failure of outpatient treatment Fecal impaction of colon GERD (gastroesophageal reflux disease) High cholesterol High triglycerides History of Clostridium difficile infection History of left heart catheterization (LHC) (~02/13/16) HTN (hypertension) Hyperlipidemia Hypokalemia Insomnia Irritable bowel syndrome with constipation Large bowel obstruction Nausea & vomiting Osteoarthritis Restless legs syndrome Rheumatoid arthritis Sepsis Sigmoid diverticulitis Skin ulcer Tobacco dependence syndrome Visual hallucinations Home Medications pantoprazole 40 mg tablet,delayed release 40 mg PO DAILY REFLUX 03/21/17 [History Last Taken 12/25/22] ezetimibe 10 mg tablet 10 mg PO DAILY 01/27/19 [History Last Taken 12/25/22] acetaminophen 500 mg tablet 1,000 mg (2 x 500 mg) PO Q6H PRN PRN Pain Score 1- 3/10 09/20/19 [Rx Last Taken Unknown] atorvastatin 80 mg tablet 80 mg PO QHS #30 tabs 09/20/19 [Rx Last Taken 12/25/22] fenofibrate 54 mg tablet 54 mg PO DAILY 04/18/20 [History Last Taken 12/25/22] diltiazem HCl 180 mg capsule,extended release 24 hr 180 mg PO DAILY #90 caps 05/08/22 [Rx Last Taken 12/25/22] sucralfate 1 gram tablet 1 g PO TID PRN stomachache 05/08/22 [History Last Taken 12/25/22] memantine 2 mg/mL oral solution 5 mg (2.5 mL) PO BID #450 mL 08/12/22 [Rx Last Taken 12/25/22] nitroglycerin 0.4 mg sublingual tablet 0.4 mg sublingual Q5-15M PRN chest pain #25 tabs 11/11/22 [Rx Last Taken Unknown] fluoxetine 40 mg capsule 40 mg PO DAILY #90 caps 11/13/22 [Rx Last Taken 12/25/22] aspirin 81 mg tablet,delayed release (Adult Aspirin Regimen) 81 mg PO DAILY 12/26/22 [History Last Taken 12/25/22] galantamine 4 mg/mL oral solution 10 mg PO BID 12/26/22 [History Last Taken 12/25/22] hydrochlorothiazide 12.5 mg capsule 12.5 mg PO DAILY 12/26/22 [History Last Taken 12/25/22] latanoprost 0.005 % eye drops 1 drp ophthalmic (eye) QHS 12/26/22 [History Last Taken 12/25/22] metformin 500 mg tablet,extended release 24 hr 500 mg PO DAILY DM 12/26/22 [History Last Taken 12/25/22] mirtazapine 30 mg tablet 30 mg PO QHS 12/26/22 [History Last Taken 12/25/22] mometasone 50 mcg/actuation nasal spray 1 - 2 spray intranasal Q12H ALLERGIES 12/26/22 [History Last Taken Unknown] polyethylene glycol 400 1 % eye drops (Visine Dry Eye Relief) 1 - 2 drp EACH EYEQ4H PRN dry eye(s) 12/26/22 [History Last Taken 12/25/22] Allergy/AdvReac Type Severity Reaction Status Date / Time bee venom protein (honey bee) Allergy Anaphylaxis Verified 12/26/22 13:14 [id number] Reductase AdvReac Severe Myalgias Verified 12/26/22 13:14 Inhibitor promethazine HCl AdvReac Vomiting Verified 12/26/22 13:14 [From Phenergan] tuberculin, purified protein AdvReac Swelling Verified 12/26/22 13:14 deriva Family History Mother Heart disease Myocardial infarction CVA (cerebral vascular accident) Sister Diabetes Brother Parkinson disease Surgical History Cataract extraction status of left eye History of cardioversion (09/02/19) History of cholecystectomy History of colostomy History of creation of ostomy History of hand surgery History of hysterectomy History of laparoscopy History of partial colectomy Social History Smoking Status: Current some day smoker tobacco type: cigarettes Tobacco: How many years used: 40 alcohol intake: never substance use type: does not use caffeine: Yes Type: carbonated beverages and coffee what type of physical activity do you participate in: walking frequency: 1-2 times per week brandon/church: Jew seatbelt use: always ROS Constitutional Constitutional: Denies anorexia, change in weight, chills, fatigue, fever(s), malaise, night sweats or weakness Eyes Eyes: Denies blurry vision, change in vision, discharge from eye(s) or eye pain Cardiovascular Cardiovascular: Reports chest pain; Denies claudication, dyspnea on exertion, edema, lightheadedness, orthopnea or palpitations Respiratory/Chest Respiratory/Chest: Denies cough, dyspnea, excessive phlegm production, hemoptysis, productive cough, shortness of breath at rest or shortness of breathwith exertion Gastrointestinal Gastrointestinal: Denies abdominal pain, constipation, diarrhea, hematemesis, hematochezia, melena, nausea or vomiting Genitourinary Genitourinary: Denies dysuria, hematuria, urinary frequency, urinary hesitancy, urinary incontinence or urinary urgency Musculoskeletal Musculoskeletal: Denies back pain, joint pain, joint stiffness, joint swelling, myalgias or neck pain Neurologic Neurologic: Reports numbness; Denies abnormal gait, abnormal speech, dizziness, focal weakness, headache(s), loss of vision, other visual disturbances, paresthesias, syncope or tingling Psychiatric Psychiatric: Reports anxiety, cognitive impairment and depression; Denies irritability, mood swings or suicidal ideation Endocrine Endocrinology: Denies change in body appearance, cold intolerance, excessive sweating, heat intolerance, polydipsia or polyuria Hematologic/Lymphatic Hematologic/Lymphatic: Denies none, anemia, easy bleeding, easy bruising or lymphadenopathy Allergic/Immunologic Allergic/Immunologic: Denies rhinitis, urticaria, eczemia or asthma Vital Signs Vital Signs Vital Signs: 12/26/22 13:08 12/26/22 13:10 12/26/22 14:01 Temperature 97.6 F L Temperature Source Oral Pulse Rate 76 74 Respiratory Rate 18 16 Blood Pressure 141/89 H Blood Pressure Mean 106 Blood Pressure Source Blood Pressure Position Blood Pressure Location Pulse Ox 100 100 Oxygen Delivery Method Room Air Room Air Room Air 12/26/22 15:59 12/26/22 17:05 Temperature 98 F 98.0 F Temperature Source Temporal Oral Pulse Rate 71 72 Respiratory Rate 19 H 16 Blood Pressure 140/109 H 147/65 H Blood Pressure Mean 119 92 Blood Pressure Source Monitor Blood Pressure Position Semi-Fowlers Blood Pressure Location Right Arm Pulse Ox 100 100 Oxygen Delivery Method Room Air Room Air Weight Weight: 67.9 kg Body Mass Index (BMI) 24.9 Physical Exam Const alert, oriented x3, no apparent distress, average body habitus and healthy appearing General Appearance: cooperative, well kempt and well developed Orientation / Consciousness: awake, oriented to person, oriented to place and oriented to time HEENT normocephalic and moist oral mucous membranes Eyes PERRL, EOMs intact bilaterally and conjunctivae normal Neck supple, no JVD, thyroid normal and no carotid bruits General: trachea midline Resp normal respiratory effort, no retractions, no use of accessory muscles and clearto auscultation bilaterally Auscultation: Negative for rales, rhonchi or wheezes Cardio regular rate, regular rhythm, S1 normal heart sound, S2 normal heart sound, no murmurs, no rub and no gallops GI normal to inspection, nondistended, normoactive bowel sounds, soft to palpation,non-tender and non-distended GI Narrative: Colostomy is present Extremity no clubbing, cyanosis or edema Skin no rashes or lesions noted General Skin Exam: no breakdown Neuro oriented x3, CN's II-XII intact bilaterally, moves all extremities and no focal motor deficits Neuro Narrative: Patient has some mild sensory deficit over the anterior and lateral aspect of her right lower plasencia area extending into her right foot on the dorsal aspect Sensorium / Orientation: awake, alert, oriented to person, oriented to place andoriented to time Speech: speech normal Psych affect normal Results Lab / Micro Data 12/26/22 13:46 12/26/22 13:46 Labs: Laboratory Results - last 24 hr 12/26/22 13:46: WBC 9.3, RBC 3.98 L, Hgb 11.7 L, Hct 34.4 L, MCV 86.4, MCH 29.4,MCHC 34.0, RDW Std Deviation 40.9, RDW Coeff of Wilmar 13.1, Plt Count 278, MPV 11.9, Immature Gran % (Auto) 0.600, Neut % (Auto) 65.0, Lymph % (Auto) 23.9, [place] % (Auto) 8.4, Eos % (Auto) 1.7, Baso % (Auto) 0.4, Absolute Neuts (auto) 6.0, Absolute Lymphs (auto) 2.21, Nucleated RBC % 0, APTT 25.2, Sodium 136, Potassium 2.6 L*, Chloride 103, Carbon Dioxide 18.0 L, Anion Gap 15, BUN 80 H, Creatinine 5.53 H, Estim Creat Clear Calc 6.99, Est GFR (MDRD) Af Amer 10 L, EstGFR (MDRD) Non-Af 8 L, BUN/Creatinine Ratio 14.5, Glucose 94, Calcium 8.4 L, Troponin I High Sens 20 12/26/22 16:30: Troponin I High Sens 21, Triglycerides 75, Cholesterol 97, LDL Cholesterol 36, VLDL Cholesterol 15, HDL Cholesterol 46 Rhythm Strip Rhythm Strip: Sinus Rhythm Rate: 72 Ectopy: None Radiology Impression Chest X-Ray 12/26/22 13:52 IMPRESSION: No acute abnormality is seen. Electronically Signed: Delta Medina MD at 14:07 EDT , Renal Ultrasound 12/26/22 18:39 IMPRESSION: No acute findings in the retroperitoneum. Electronically Signed: Arden Jameson MD at 19:31 EDT , Assessment & Plan Assessment/Plan (1) Acute renal failure: PLAN: Plan 1. Unstable angina-patient will be admitted to PCU, she will be maintained on aheparin drip, an echocardiogram will be obtained tomorrow, cardiac enzymes will be cycled, she will be seen in consultation by cardiology. I have added a beta- ingris as well as long-acting nitrate. Patient's lipid profile will be drawn #2 acute renal failure-etiology unclear at this point, patient will be given IV fluids and undergo an ultrasound of her kidneys, labs will be monitored #3 essential hypertension-patient will remain on her present medications #4 hyperlipidemia-patient will remain on her lipid medications #5 mild dementia-patient will remain on her dementia medications #6 chronic depression/anxiety-patient will remain on her antidepressant #7 type 2 diabetes-patient is on metformin at home, this will be held due to herrenal function #8 hypokalemia-etiology unclear, patient will be given potassium supplementation, labs will be rechecked tomorrow #9 GERD-patient will be kept on a PPI Total clinical time spent by myself addressing patient's medical issues, reviewing all of her data, and collaborating with patient's care team: 75 minutes Charges/Coding Visit Charges Inpatient E&M: 28205 Init Hosp L3 12/26/222025 <Electronically signed by Sarath Ceja DO> Cosigner Signature (if applicable): CC: Dr. Magan Amador MD; Dr. Sarath Ceja DO~ Signed [facility] Work Phone: 1(446) 382-259307-06-2023 History of Present illness Narrative* Heaven Garg PA-C - 12/26/2022 12:08 PM EDT Chief Complaint Patient presents with: Chest Pain: Shortness of breath HPI Ty Yu is a 67 year old female who presents here today for Above Complaints.. Patient reports that she has had chest pressure and QUINTANILLA for the past few months. She saw cardiologyin October. There report shows no complaints other than decreased energy. She says she has very little energy after light activity. Even just changing the bedding, she needsto rest afterwards. She feels that it's been pretty consistent over the past months. She feels like someone is sitting on her chest. Worse with activity. Has symptoms today as well She states it feels similar to 2013 when she was dx with CAD of LAD and needed stent. Last 4 Encounter BP Readings: Date: BP: 12/26/2022 128/78 12/12/2022 140/76 11/11/2022 142/82 05/08/2022 122/68 Past medical history, appointments, medications, allergies reviewed. Previous Medical History PAST MEDICAL HISTORY Diagnosis Date Age-related osteoporosis without current pathological fracture 06/01/2020 Anxiety 07/05/2013 Asthma diagnosed in childhood Urias's palsy Bilateral carotid artery disease (HCC) 12/15/2017 US 11/2017: 20-40% on right and 40-60% on left. Bilateral carotid artery stenosis 02/12/2021 US 11/2017: 20-40% on right and 40-60% on left. Bursitis of right hip 04/01/2013 Cataract 09/14/2021 Dr. Joaquín [facility]no- [facility] Chicken pox as a child Chronic midline low back pain without sciatica 08/02/[address] (HCC) 06/01/2020 Placed 2019 after colectomy due to perforated diverticulitis. 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 07/09/[address] Cunningham, stent to LAD Current moderate episode of major depressive disorder without prior episode (HCC) 07/14/2018 Current use of proton pump inhibitor 06/26/2017 Mg checked 06/2017 Diverticulosis 11/16/2013 Encounter for Medicare annual wellness exam 01/15/2021 Medical B eligibilty date 05/23/19 Date of last exam n/a Essential hypertension Ex-smoker 10/19/2014 Started at age 14 smoked up to 1 PPD. As of 12/2015 1/2 PPD or less. Quit 08/2019 Fibromyalgia 11/17/2013 Foot callus 06/01/2020 Gastroesophageal reflux disease without esophagitis 01/08/2016 Glaucoma suspect of both eyes 09/14/2021 Dr. [facility]aqu[facility] Hiatal hernia 07/28/2017 Hip arthritis 04/01/[address] Ivy (Ortho) History of shingles 2005 Insomnia 01/08/2016 Iron deficiency anemia 07/04/[address] 11/11/2022 DPA: Son, Wilbert Carr Lumbar degenerative disc disease 12/28/[address] Arriaza Migraine without aura and without status migrainosus, not intractable 07/09/2016 Mixed hyperlipidemia Moderate pulmonary hypertension (HCC) 02/12/2021 Osteoarthritis of multiple joints 09/06/[address] Ford Continue home meds: prednisone and methotrexate Paroxysmal atrial fibrillation (HCC) 02/12/2021 RLS (restless legs syndrome) Smoker 10/19/2014 Started at age 14 smoked up to 1 PPD. As of 12/2015 1/2 PPD or less. Stage 3b chronic kidney disease (HCC) 06/02/2020 Tear of left rotator cuff 07/24/2017 Added automatically from request for surgery [id number] Type 2 diabetes mellitus without complication, without long-term current use of insulin (HCC) 12/17/2017 Unspecified dementia with behavioral disturbance 07/21/[address] Partida. He also stopped her cymbalta and started Zoloft Valvular heart disease 02/12/2021 Previous Surgical History PAST SURGICAL HISTORY Procedure Laterality Date 2D ECHO (EXEP) 08/24/2019 EF=65%, mild Freire Dysf, 1+ TI, APPENDECTOMY HX 1975 BREAST BIOPSY 07/30/2018 left vacuum assisted core needle biopsy [facility] COLONOSCOPY FLX DX W/COLLJ SPEC WHEN PFRMD 09/01/2018 Colonoscopy, repeat 10 yrs ESOPHAGOGASTRODUODENOSCOPY TRANSORAL DIAGNOSTIC 09/01/2018 EGD LAPAROSCOPIC HEMICOLECTOMY 2018 due to ruptured diverticulitis, has colostomy LAPAROSCOPY SURG CHOLECYSTECTOMY Cholecystectomy, lap LIG/TRNSXJ FLP TUBE ABDL/VAG APPR UNI/BI Tubal ligation PAST SURGICAL HISTORY OF bladder lift RECONSTRUCTION ROTATOR CUFF AVULSION CHRONIC Left 08/08/2017 Left shoulder arthroscopy, Open RCR and SAD REMV CATARACT EXTRACAP,INSERT LENS Bilateral 10/2022 STENT PLACEMENT 05/06/2013 LAD STRESS TEST 07/28/2017 normal TOTAL ABDOMINAL HYSTERECT W/WO RMVL TUBE OVARY Hysterectomy, LESA Family History FAMILY HISTORY Problem Relation Age of Onset Cancer Father Pancreatic Hypertension Mother at age 7, [place] at age 42 Coronary Artery Disease Mother 70 Lipids Mother Headache Mother Cancer Sister Non Hodgken's lymphoma Diabetes Sister Thyroid Sister No Known Problems Daughter No Known Problems Son Diabetes Brother other (Other) Brother MDS Diabetes Maternal Aunt Heart Attack Maternal Grandmother COPD Maternal Grandfather Cancer Paternal Grandmother Stroke Paternal Grandfather Patient Allergies ALLERGIES Allergen Reactions Bees Anaphylaxis Lipitor [Atorvastat* Myalgia Phenergan [Prometha* GI Upset Pravastatin Myalgia Dqstxdo-Rif-Lgg Red* Myalgia Trazodone Other: See Comments Increased urine frequency Current Medications Current Outpatient Medications on File Prior to Visit Medication Sig atorvastatin (LIPITOR) 80 mg tablet Take 1 tablet by mouth daily at bedtime. For cholesterol. metFORMIN ER (GLUCOPHAGE XR) 500 mg 24 hr tablet Take 1 tablet by mouth daily with breakfast. Fenofibrate (LOFIBRA) 54 mg tablet Take 1 tablet by mouth once daily. mirtazapine (REMERON) 30 mg tablet Take 1 tablet by mouth daily at bedtime. mometasone (NASONEX) 50 mcg/actuation nasal spray Mometasone Furoate [Nasonex] 2 SPRAY NASAL DAILY PRN For Cold Symptons December 30, 2017 Active sucralfate (CARAFATE) 1 gram tablet Take 1 tablet by mouth three times daily as needed. Magnesium 250 mg tab Take 1 tablet by mouth twice daily. ezetimibe (ZETIA) 10 mg tablet Take 1 tablet by mouth once daily. hydroCHLOROthiazide 12.5 mg capsule Take 1 capsule by mouth once daily. pantoprazole DR (PROTONIX) 40 mg tablet Take 1 tablet by mouth once daily. dilTIAZem CD (CARTIA XT) 180 mg 24 hr capsule Take 1 capsule by mouth once daily. nitroglycerin sublingual (NITROSTAT) 0.4 mg SL tablet Dissolve 1 tablet under the tongue every 5 minutes as needed for chest pain. EPINEPHrine (EPIPEN 2-ESTEFANIA) 0.3 mg/0.3 mL auto-injector Inject 0.3 mL intramuscularly as needed. blood sugar diagnostic (BLOOD GLUCOSE TEST) test strip Test blood sugar(s) 1 times daily. Dx: E11.9Insulin: No Galantamine Hydrobromide (RAZADYNE) 16 mg 24 hr capsule Take 1 capsule by mouth daily with breakfast. Per Neuro Dr. Partida (Patient taking differently: Take 16 mg by mouth daily with breakfast. Per Neuro Dr. Partida, taking in liquid form due to colostomy) memantine (NAMENDA) 5 mg tablet Take 5 mg by mouth twice daily. cholecalciferol, vitamin D3, (VITAMIN D3 ORAL) Take by mouth once daily. Ferrous Sulfate (SLOW FE) 142 mg (45 mg iron) TbER Take 1 tablet by mouth once daily. Lancets lancets Test blood sugar(s) 1 times daily. Dx: Other DM Code E11.9, Insulin: No aspirin, enteric coated (ADULT LOW DOSE ASPIRIN) 81 mg EC tablet Take 1 tablet by mouth once daily. buPROPion SR (WELLBUTRIN SR) 150 mg 12 hr tablet Take 1 tablet by mouth once daily for 7 days, THEN1 tablet twice daily. (Patient not taking: Reported on 12/26/2022) No current facility-administered medications on file prior to visit. Social History Social History Tobacco Use Smoking status: Former Packs/day: 0.50 Years: 40.00 Pack years: 20.00 Types: Cigarettes Start date: 06/23/1968 Quit date: 05/18/2021 Years since quittin.6 Smokeless tobacco: Never Substance Use Topics Alcohol use: No Drug use: No Review of Symptoms REVIEW OF SYSTEMS See hpi EXAM: BP 128/78 (BP Site: Right Arm, BP Position: Sitting, BP Cuff Size: Regular Adult) Pulse 73 Temp36.5 C (97.7 F) Resp 18 Wt 67.1 kg (148 lb) LMP 05/22/2006 SpO2 100% BMI 23.89 kg/m General Appearance: Well appearing, alert, in no acute distress, well-hydrated, well nourished.. Neck: Supple, no adenopathy; thyroid symmetric, normal size, no bruits. Lungs: Lungs clear to auscultation. No wheezing, rhonchi, rales.. Heart: RRR without murmur, gallop, or rubs. No ectopy. Health Maintenance List MAMMOGRAM due on 06/18/2019 BP CONTROLLED (<130/80) due on 06/01/2021 DIABETIC FOOT EXAM due on 08/02/2022 DILATED RETINAL EXAM due on 09/14/2022 BONE DENSITY due on 05/08/2023 INFLUENZA(1) due on 02/21/2023 LUNG CANCER SCREENING due on 03/11/2023 HBA1C due on 05/14/2023 URINE ALBUMIN:CREATININE RATIO due on 11/12/2023 LDL CHOLESTEROL due on 11/12/2023 SERUM CREATININE due on 11/12/2023 HEMOGLOBIN/HEMATOCRIT due on 11/12/2023 ANNUAL PCP TEAM CHRONIC DISEASE VISIT due on 12/13/2023 DTAP,TDAP,TD(2 - Td or Tdap) due on 12/30/2027 COLORECTAL CANCER SCREENING due on 02/20/2030 ADVANCE DIRECTIVE DISCUSSION Completed SHINGRIX VACCINE Completed COVID-19 VACCINE Completed PNEUMOCOCCAL: 65+ Completed HEPATITIS C SCREENING Discontinued Data reviewed EKG: ST & ANTEROLATERAL T WAVE ABNORMALITY PROLONGED QT INTERVAL OR TU FUSION, CONSIDER HYPOKALEMIA ABNORMAL ECG ASSESSMENT/PLAN: 1. Chest pressure - ICD9: 786.59, ICD10: R07.89 (primary diagnosis) EKG shows ST changes and anterolateral T wave changes that are new compared to previous EKG. Given patient's history and symptoms, I discussed with Dr. Amador who does agree that patient should be in ER for further evaluation. Patient declines squad transportation as she has her son here with her that can take her straight to the ER. Copies of today and previous ECGs sent with patient. Ultimately may need cardiac cath for further eval of her symptoms. Will defer to patient's rn orthopaedic for management. - ECG COMPLETE 2. QUINTANILLA (dyspnea on exertion) - ICD9: 786.09, ICD10: R06.09 As above 3. 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- ICD9: 414.01, ICD10: I25.10 As above. Heaven Garg PA-C documented [facility] encounterL[facility]06[facility]23 Miscellaneous Notes* Telephone Encounter - Raysa Goodson Ma - 12/17/2022 10:31 AM EDT Patient was notified Raysa Goodson Ma * Telephone Encounter - Isaiah Wise RN - 12/14/2022 8:05 AM EDT Left vm for patient to return call to nurse for provider's message. * Telephone Encounter - Magan Amador MD - 12/13/2022 9:28 PM EDT Let patient know US of neck arteries shows no increase in narrowing compared to US done in 2018. Nochanges in Tx needed. documented in this encounterL[facility]06-23-2023 Miscellaneous Notes* Telephone Encounter - Tonie Turpin LPN - 12/13/2022 8:35 AM EDT Pt notified of same. Tonie Turpin LPN * Telephone Encounter - Tonie Turpin LPN - 12/13/2022 8:33 AM EDT ----- Message from Heaven Garg PA-C sent at 12/13/2022 8:08 AM EDT ----- Thyroid level is normal. documented in this encounterL[facility]06-22-2023 Instructions* Patient Instructions* Heaven Garg PA-C - 12/12/2022 12:56 PM EDT Discuss leg symptoms with your neurologist as well. I ordered brain MRI without contrast and EMG of Right leg. We will set that up through [facility]. documented in this encounterL[facility]06-22-2023 History of Present illness Narrative* Heaven Garg PA-C - 12/12/2022 12:34 PM EDT Chief Complaint Patient presents with: Numbness: R leg numbness and heaviness HPI Ty Yu is a 67 year old female who presents here today for Above Complaints.. Patient contacted office on 12/09 due to symptoms of numbness and heaviness in her right leg. Patient stated that on Friday the she fell and hit her head on the bottom of shower. She hd been dizzy and felt sick on the . She was advised to go to ER by PCP but did not go. States no transportation kept her from going. Patient reports that she had concussion like symptoms (mild headache and lightheadedness) for a couple days after the fall. But none since. Patient states that 2 weeks prior to this past weekend she had noted numbness and heaviness in her R leg. No swelling. She denies injury. She has had some upper body weakness as well. But can't really define this. Last 4 Encounter BP Readings: Date: BP: 12/12/2022 140/76 11/11/2022 142/82 05/08/2022 122/68 08/02/2021 116/72 Past medical history, appointments, medications, allergies reviewed. Previous Medical History PAST MEDICAL HISTORY Diagnosis Date Age-related osteoporosis without current pathological fracture 06/01/2020 Anxiety 07/05/2013 Asthma diagnosed in childhood Urias's palsy Bilateral carotid artery disease (HCC) 12/15/2017 US 11/2017: 20-40% on right and 40-60% on left. Bilateral carotid artery stenosis 02/12/2021 US 11/2017: 20-40% on right and 40-60% on left. Bursitis of right hip 04/01/2013 Cataract 09/14/2021 Dr. [facility]aquín [facility] Chicken pox as a child Chronic midline low back pain without sciatica 08/02/[address] (HCC) 06/01/2020 Placed 2019 after colectomy due to perforated diverticulitis. 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 07/09/[address] Cunningham, stent to LAD Current moderate episode of major depressive disorder without prior episode (HCC) 07/14/2018 Current use of proton pump inhibitor 06/26/2017 Mg checked 06/2017 Diverticulosis 11/16/2013 Encounter for Medicare annual wellness exam 01/15/2021 Medical B eligibilty date 05/23/19 Date of last exam n/a Essential hypertension Ex-smoker 10/19/2014 Started at age 14 smoked up to 1 PPD. As of 12/2015 1/2 PPD or less. Quit 08/2019 Fibromyalgia 11/17/2013 Foot callus 06/01/2020 Gastroesophageal reflux disease without esophagitis 01/08/2016 Glaucoma suspect of both eyes 09/14/2021 Dr. [facility] Hiatal hernia 07/28/2017 Hip arthritis 04/01/[address] Ivy (Ortho) History of shingles 2005 Insomnia 01/08/2016 Iron deficiency anemia 07/04/[address] 11/11/2022 DPA: Son, Wilbert Carr Lumbar degenerative disc disease 12/28/[address] Arriaza Migraine without aura and without status migrainosus, not intractable 07/09/2016 Mixed hyperlipidemia Moderate pulmonary hypertension (HCC) 02/12/2021 Osteoarthritis of multiple joints 09/06/[address] Ford Continue home meds: prednisone and methotrexate Paroxysmal atrial fibrillation (HCC) 02/12/2021 RLS (restless legs syndrome) Smoker 10/19/2014 Started at age 14 smoked up to 1 PPD. As of 12/2015 1/2 PPD or less. Stage 3b chronic kidney disease (HCC) 06/02/2020 Tear of left rotator cuff 07/24/2017 Added automatically from request for surgery [id number] Type 2 diabetes mellitus without complication, without long-term current use of insulin (HCC) 12/17/2017 Unspecified dementia with behavioral disturbance 07/21/[address] Partida. He also stopped her cymbalta and started Zoloft Valvular heart disease 02/12/2021 Previous Surgical History PAST SURGICAL HISTORY Procedure Laterality Date 2D ECHO (EXEP) 08/24/2019 EF=65%, mild Freire Dysf, 1+ TI, APPENDECTOMY HX 1974 BREAST BIOPSY 07/30/2018 left vacuum assisted core needle biopsy [facility] COLONOSCOPY FLX DX W/COLLJ SPEC WHEN PFRMD 09/01/2018 Colonoscopy, repeat 10 yrs ESOPHAGOGASTRODUODENOSCOPY TRANSORAL DIAGNOSTIC 09/01/2018 EGD LAPAROSCOPIC HEMICOLECTOMY 2018 due to ruptured diverticulitis, has colostomy LAPAROSCOPY SURG CHOLECYSTECTOMY Cholecystectomy, lap LIG/TRNSXJ FLP TUBE ABDL/VAG APPR UNI/BI Tubal ligation PAST SURGICAL HISTORY OF bladder lift RECONSTRUCTION ROTATOR CUFF AVULSION CHRONIC Left 08/08/2017 Left shoulder arthroscopy, Open RCR and SAD REMV CATARACT EXTRACAP,INSERT LENS Bilateral 10/2022 STENT PLACEMENT 05/06/2013 LAD STRESS TEST 07/28/2017 normal TOTAL ABDOMINAL HYSTERECT W/WO RMVL TUBE OVARY Hysterectomy, LESA Family History FAMILY HISTORY Problem Relation Age of Onset Cancer Father Pancreatic Hypertension Mother at age 7, [place] at age 42 Coronary Artery Disease Mother 70 Lipids Mother Headache Mother Cancer Sister Non Hodgken's lymphoma Diabetes Sister Thyroid Sister No Known Problems Daughter No Known Problems Son Diabetes Brother other (Other) Brother MDS Diabetes Maternal Aunt Heart Attack Maternal Grandmother COPD Maternal Grandfather Cancer Paternal Grandmother Stroke Paternal Grandfather Patient Allergies ALLERGIES Allergen Reactions Bees Anaphylaxis Lipitor [Atorvastat* Myalgia Phenergan [Prometha* GI Upset Pravastatin Myalgia Yooidib-Oza-Fmp Red* Myalgia Trazodone Other: See Comments Increased urine frequency Current Medications Current Outpatient Medications on File Prior to Visit Medication Sig Magnesium 250 mg tab Take 1 tablet by mouth twice daily. ezetimibe (ZETIA) 10 mg tablet Take 1 tablet by mouth once daily. buPROPion SR (WELLBUTRIN SR) 150 mg 12 hr tablet Take 1 tablet by mouth once daily for 7 days, THEN1 tablet twice daily. hydroCHLOROthiazide 12.5 mg capsule Take 1 capsule by mouth once daily. mirtazapine (REMERON) 30 mg tablet Take 1 tablet by mouth daily at bedtime. pantoprazole DR (PROTONIX) 40 mg tablet Take 1 tablet by mouth once daily. dilTIAZem CD (CARTIA XT) 180 mg 24 hr capsule Take 1 capsule by mouth once daily. mometasone (NASONEX) 50 mcg/actuation nasal spray Mometasone Furoate [Nasonex] 2 SPRAY NASAL DAILY PRN For Cold Symptons December 30, 2017 Active Fenofibrate (LOFIBRA) 54 mg tablet Take 1 tablet by mouth once daily. metFORMIN ER (GLUCOPHAGE XR) 500 mg 24 hr tablet Take 1 tablet by mouth daily with breakfast. atorvastatin (LIPITOR) 80 mg tablet Take 1 tablet by mouth daily at bedtime. For cholesterol. nitroglycerin sublingual (NITROSTAT) 0.4 mg SL tablet Dissolve 1 tablet under the tongue every 5 minutes as needed for chest pain. EPINEPHrine (EPIPEN 2-ESTEFANIA) 0.3 mg/0.3 mL auto-injector Inject 0.3 mL intramuscularly as needed. blood sugar diagnostic (BLOOD GLUCOSE TEST) test strip Test blood sugar(s) 1 times daily. Dx: E11.9Insulin: No Galantamine Hydrobromide (RAZADYNE) 16 mg 24 hr capsule Take 1 capsule by mouth daily with breakfast. Per Neuro Dr. Partida (Patient taking differently: Take 16 mg by mouth daily with breakfast. Per Neuro Dr. Partida, taking in liquid form due to colostomy) memantine (NAMENDA) 5 mg tablet Take 5 mg by mouth twice daily. sucralfate (CARAFATE) 1 gram tablet Take 1 tablet by mouth three times daily as needed. cholecalciferol, vitamin D3, (VITAMIN D3 ORAL) Take by mouth once daily. Ferrous Sulfate (SLOW FE) 142 mg (45 mg iron) TbER Take 1 tablet by mouth once daily. Lancets lancets Test blood sugar(s) 1 times daily. Dx: Other DM Code E11.9, Insulin: No aspirin, enteric coated (ADULT LOW DOSE ASPIRIN) 81 mg EC tablet Take 1 tablet by mouth once daily. No current facility-administered medications on file prior to visit. Social History Social History Tobacco Use Smoking status: Former Packs/day: 0.50 Years: 40.00 Pack years: 20.00 Types: Cigarettes Start date: 06/23/1968 Quit date: 05/18/2021 Years since quittin.5 Smokeless tobacco: Never Substance Use Topics Alcohol use: No Drug use: No Review of Symptoms REVIEW OF SYSTEMS See hpi EXAM: BP 140/76 (BP Site: Right Arm, BP Position: Sitting, BP Cuff Size: Regular Adult) Pulse (!) 58 Temp 36.3 C (97.3 F) Resp 16 Wt 68 kg (150 lb) LMP 05/22/2006 BMI 24.21 kg/m General Appearance: Well appearing, alert, in no acute distress, well-hydrated, well nourished.. Neck: Supple, no adenopathy; thyroid symmetric, normal size, no bruits. Lungs: Lungs clear to auscultation. No wheezing, rhonchi, rales.. Heart: RRR without murmur, gallop, or rubs. No ectopy. Extremities: No deformities, edema, skin discoloration, clubbing or cyanosis. Good capillary refill. . Peripheral Pulses: Normal. Neurologic: RLE with weakness noted compared to Left. Extension of knee wnl. Flexion of knee is weak. Dorsal flexion of right foot weak. Plantar flexion mildly weak. Reflex 2+.. Health Maintenance List MAMMOGRAM due on 06/18/2019 BP CONTROLLED (<130/80) due on 06/01/2021 DIABETIC FOOT EXAM due on 08/02/2022 DILATED RETINAL EXAM due on 09/14/2022 BONE DENSITY due on 05/08/2023 LUNG CANCER SCREENING due on 03/11/2023 HBA1C due on 05/14/2023 URINE ALBUMIN:CREATININE RATIO due on 11/12/2023 LDL CHOLESTEROL due on 11/12/2023 ANNUAL PCP TEAM CHRONIC DISEASE VISIT due on 11/12/2023 SERUM CREATININE due on 11/12/2023 HEMOGLOBIN/HEMATOCRIT due on 11/12/2023 DTAP,TDAP,TD(2 - Td or Tdap) due on 12/30/2027 COLORECTAL CANCER SCREENING due on 02/20/2030 INFLUENZA Completed ADVANCE DIRECTIVE DISCUSSION Completed SHINGRIX VACCINE Completed COVID-19 VACCINE Completed PNEUMOCOCCAL: 65+ Completed HEPATITIS C SCREENING Discontinued Data reviewed ASSESSMENT/PLAN: 1. Other symptoms and signs involving the nervous system - ICD9: 781.99, ICD10: R29.818 (primary diagnosis) Unclear etiology. Given fall and hx of possible TIAs, MRI is warranted. Concerned for subacute stroke. Patient is also to discuss with neuro today Will have MRI done at [facility] so can be compared to last years brain MRI - MRI BRAIN WO IVCON 2. Mixed hyperlipidemia - ICD9: 272.2, ICD10: E78.2 - ATORVASTATIN 80 MG TABLET 3. 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- ICD9: 414.01, ICD10: I25.10 - ATORVASTATIN 80 MG TABLET 4. Transient cerebral ischemia, unspecified type - ICD9: 435.9, ICD10: G45.9 - MRI BRAIN WO IVCON 5. Right sided weakness - ICD9: 728.87, ICD10: R53.1 Will check EMG Patient also needs to discuss with neuro - EMG(NEURO/NI) - MRI BRAIN WO IVCON - TSH BLD 6. Right foot drop - ICD9: 736.79, ICD10: M21.371 As #1 and #5 - EMG(NEURO/NI) - MRI BRAIN WO IVCON - TSH BLD 7. Numbness of right foot - ICD9: 782.0, ICD10: R20.0 As #1 and #5 - EMG(NEURO/NI) - MRI BRAIN WO IVCON - TSH BLD 8. Dementia with behavioral disturbance (HCC) - ICD9: 294.21, ICD10: F03.918 - MRI BRAIN WO IVCON Heaven Garg PA-C [facility]2023 History of Present illness Narrative* Zach Donovan RN - 12/11/2022 9:31 AM EDT CDM Telephonic Outreach Provider Action/FYI Phone busy Contacted for: Routine Telephonic Outreach Contact made with patient: No, unable to leave message. Will reattempt call Zach Donovan RN December 11, 2022 3:23 PM documented in this encounterL[facility]06-19-2023 Miscellaneous Notes* Telephone Encounter - Fidelia Yanes MA - 12/09/2022 4:06 PM EDT Patient notified and voiced understanding. I asked if she had someone to take her. She said her daughter/son in law. Fidelia Yanes MA * Telephone Encounter - Magan Amador MD - 12/09/2022 3:37 PM EDT Advise patient she needs to go to the ER now. There is a strong possibility that with the symptoms she describes she may of had a stroke and if so could have another one that is much more sever or life threatening. * Telephone Encounter - Angelique Grimes RN - 12/09/2022 9:16 AM EDT Patient calls and states that for about a week her right leg has been numb where it feels heavy andit is hard to move. On Friday night patient went out to dinner. After dinner she went home and went to bed. In the middle of the night patient had gone to the restroom. Patient started to feel dizzy and then blacked out. Patient had hit head on bottom of shower. Patient reports dizziness and feeling sick yesterday. Nurse Triage assessment completed with protocol recommending for disposition of See PCP in 4 hours.Patient states that she lives 2 hours away and unable to come to be seen today. Patient states thatterri has doppler on carotid artery scheduled on and she set up appointment with Heaven . Advised patient that she needs to be seen sooner due to dizziness, right leg numbness, and hitting head. Advised patient that she should go to ED to be evaluated for this. Patient states that she does not want to see doctors where she lives. Reason for Disposition [1] Numbness (i.e., loss of sensation) of the face, arm / hand, or leg / foot on one side of the body AND [2] gradual onset (e.g., days to weeks) AND [3] present now Answer Assessment - Initial Assessment Questions 1. SYMPTOM: Numbness to Right leg x 1 week; Leg feels hard to move and heavy 2. ONSET: X 1 week 3. LAST NORMAL: A couple of weeks 4. PATTERN Stays all the time 5. CARDIAC SYMPTOMS: Denies 6. NEUROLOGIC SYMPTOMS: Extreme dizziness after she fell; Feels weak after fell; Headache sore where she hit head when she fell 7. OTHER SYMPTOMS: Do you have any other symptoms? Backed out going to restroom Friday night, hit head on shower. Protocols used: Neurologic [id number] documented in this encounterL[facility]06-06-2023 Miscellaneous Notes* Telephone Encounter - Uyen Witt RN - 11/26/2022 12:05 PM EDT Call placed to patient and provider message reviewed. Patient verbalizes understanding. Uyen Witt RN * Telephone Encounter - Magan Amador MD - 11/26/2022 11:41 AM EDT Let patient know the last two days of BP readings are better. Ask her to give me another 5-6 days of BP readings in 2 weeks. * Telephone Encounter - Uyen Witt RN - 11/26/2022 10:22 AM EDT Patient calls to update provider on BP readings since adding HCTZ: 11/13/2022 141/86 HR 70 11/14/2022 140/89 HR 74 11/15/2022 144/88 HR 87 11/16/2022 147/87 HR 85 11/17/2022 133/80 HR 89 11/18/2022 112/76 HR 81 Patient denies any symptoms. Uyen Witt RN documented in this encounterL[facility]06-01-2023 Miscellaneous Notes* Telephone Encounter - Natalie Del Rosario LPN - 11/21/2022 4:18 PM EDT Called patient and updated that MRI order was placed and transferred to [facility] in radiology to schedule. Natalie Del Rosario LPN * Telephone Encounter - Preeti Narvaez PA-C - 11/21/2022 3:38 PM EDT Order for left shoulder MRI placed, patient can call to schedule testing. * Telephone Encounter - Natalie Del Rosario LPN - 11/21/2022 1:17 PM EDT Patient called in and requested an order for an MRI of Left shoulder, stated had an appointment with Dr Ivy on 11/11/22, received an injection, was told if did not help to call and update. Patient lives 2 hours away and has an appointment here in [place] on December 12 if possible would like the MRI scheduled for that same day. Please review and advise. Thank you. Ty# [phone] Natalie Del Rosario LPN documented in this encounterLanc[facility]05-22-2023 History of Present illness Narrative* Brain Ivy MD - 11/11/2022 10:30 AM EDTAssociated Order(s): Large Joint Arthro/Inj: bilateral subacromial bursas Post-Procedure Diagnose(s): Chronic right shoulder pain; Impingement syndrome of right shoulder; Acute pain of left shoulder; Shoulder impingement Brain Ivy MD Department of Orthopaedics Orthopaedics [address] [facility] [address] Dept: [phone] Dept November 11, 2022 CHIEF COMPLAINT: Pain of the Left Shoulder, Pain of the Right Shoulder, and 9 months post visit right shoulder pain with injection given (Wants injections bilateral shoulders) HPI Patient here for follow up bilateral shoulder pain. Patient states in May falling forward landing on her left shoulder. She had fractured 5 ribs. She is afraid she has torn her rotator cuff on her left shoulder. Patient is having difficulty raising both arms upward and behind her back. Taking Ibuprofen for the pain and does not help. Injections have helped in the past. Would like injections today. New x-rays done today of both shoulders. ASSESSMENT: M25.511, G89.29 Chronic right shoulder pain (primary encounter diagnosis) M75.41 Impingement syndrome of right shoulder M25.512 Acute pain of left shoulder M25.819 Shoulder impingement PLAN: we'll go with bilateral shoulder injections. With her current pain and some weakness, and prior surgery, she may need a new MRI to evaluate the left rotator cuff, s/p repair. Ms. Ty Yu was advised as to contrast therapies and/or to take analgesics/anti-inflammatories as needed and all contraindications were reviewed. OBJECTIVE: Ms. Ty Yu is a pleasant 67 year old in no apparent distress. Gen:LMP 05/22/2006 nl development, non obese, no deformities ENT: Normocephalic, normal hearing, moist mucosa CV: Pulses:Radial= 2+ and symmetric, capillary refill < 2 secs, no peripheral edema/varicosities Skin: no rash, bruising or lesions. Good turgor. Psych: cooperative and appropriate, alert and oriented x 3, good mood and affect. Musculoskeletal: Supple range of motion of the cervical spine without pain. Spurling signs are negative. No atrophy of the deltoid and shoulder musculature. each shoulder is nontender to palpation over the SC joint, clavicle and AC joint. no tenderness to palpation over the posterior shoulder, postitive tenderness over each anterior lateral corner of the shoulder and greater tuberosity. Non painful at the bicipital groove and coracoid. Active range of motion is 160 of forward elevation, 60 external rotation, and internal rotation to the mid lumbar. Passive range of motion is symmetrical, limited by some pain,respectively. No laxity with anterior and posterior stress. Positive Neer and Higgins impingement signs, bilaterally. Left shoudler with prior surgical incisions; 3+/5 strength with supraspinatus, infraspinatus and subscapularis. Sensation is intact in the axillary, radial, median and ulnar nerve distribution Large Joint Arthro/Inj: bilateral subacromial bursas Informed Consent Consent Obtained: Verbal [place] Protocol A moment to CARE was completed. SIGN IN Sign in communication not applicable due to emergent procedure. Personnel directly involved with the procedure wore the appropriate PPE. Special Equipment: N/A Patient/Surrogate Stated/Verified: Patient name, Date of , Relevant allergies and Intended procedure TIME OUT Intended patient and procedure match the source document(s). Consent documented and matches the intended procedure. Relevant labs, photos, and/or imaging studies have been reviewed. Correct side/site marked and visible. Medications required for procedure verified. No fire risk assessment and interventions applicable. No implant(s) inserted. 11/11/2022 11:38 AM The procedure site was prepped in the usual sterile fashion. Site: bilateral subacromial bursas Medications (Right): 6 mg betamethasone acetate-betamethasone sodium phosphate 6 mg/mL Medications (Left): 6 mg betamethasone acetate-betamethasone sodium phosphate 6 mg/mL Anesthetics (Right): 5 mL lidocaine (PF) 10 mg/mL (1 %) Anesthetics (Left): 5 mL lidocaine (PF) 10 mg/mL (1 %) Outcome: Tolerated well, no immediate complications Post-injection instructions were reviewed with the patient and the patient voiced understanding of these instructions. SIGN OUT All instruments, equipment, possible retained foreign bodies accounted for. Imaging: IMPRESSION: Findings are suggestive of degenerative changes in the bilateral shoulders. Vending Machine Attendant: CONCEPCION Transcribe Date/Time: Nov 11 2022 12:00P Dictated by : ERICKA MEYERS MD This examination was interpreted and the report reviewed and electronically signed by: ERICKA MEYERS MD on Nov 11 2022 12:02PM EST Results-Findings * * *Final Report* * * DATE OF EXAM: Nov 11 2022 10:17AM WRX [id number] - XR SHLDR >/=3V AP/JOSE AP/OTHR RT / PROCEDURE REASON: multiple diagnoses * * * * Physician Interpretation * * * * EXAM TITLE: XR SHLDR >/=3V AP/JOSE AP/OTHR LT, XR SHLDR >/=3V AP/JOSE AP/OTHR RT EXAM DATE/TIME: 11/11/2022 10:17 AM COMPARISON: None. CLINICAL INDICATION/HISTORY: Shoulder pain TECHNIQUE: AP, true AP and axillary views of both shoulders are presented FINDINGS: No acute fractures or subluxations are noted. Bilateral acromioclavicular joint space narrowing is demonstrated, with osteophyte formation. The bilateral glenohumeral joint spaces are maintained however osteophyte formation is present. Normal acromiohumeral intervals. There is a suture anchor in the left humeral head. The bones are osteopenic. There is no significant soft tissue swelling. Supporting Subjective Information Below: Past Surgical History: PAST SURGICAL HISTORY Procedure Laterality Date 2D ECHO (EXEP) 08/24/2019 EF=65%, mild Freire Dysf, 1+ TI, APPENDECTOMY HX 1975 BREAST BIOPSY 07/30/2018 left vacuum assisted core needle biopsy [facility] COLONOSCOPY FLX DX W/COLLJ SPEC WHEN PFRMD 09/01/2018 Colonoscopy, repeat 10 yrs ESOPHAGOGASTRODUODENOSCOPY TRANSORAL DIAGNOSTIC 09/01/2018 EGD LAPAROSCOPIC HEMICOLECTOMY 2018 due to ruptured diverticulitis, has colostomy LAPAROSCOPY SURG CHOLECYSTECTOMY Cholecystectomy, lap LIG/TRNSXJ FLP TUBE ABDL/VAG APPR UNI/BI Tubal ligation PAST SURGICAL HISTORY OF bladder lift RECONSTRUCTION ROTATOR CUFF AVULSION CHRONIC Left 08/08/2017 Left shoulder arthroscopy, Open RCR and SAD STENT PLACEMENT 05/06/2013 LAD STRESS TEST 07/28/2017 normal TOTAL ABDOMINAL HYSTERECT W/WO RMVL TUBE OVARY Hysterectomy, LESA Medications: Current Outpatient Medications Medication Sig mirtazapine (REMERON) 30 mg tablet Take 1 tablet by mouth daily at bedtime. pantoprazole DR (PROTONIX) 40 mg tablet Take 1 tablet by mouth once daily. dilTIAZem CD (CARTIA XT) 180 mg 24 hr capsule Take 1 capsule by mouth once daily. Fenofibrate (LOFIBRA) 54 mg tablet Take 1 tablet by mouth once daily. metFORMIN ER (GLUCOPHAGE XR) 500 mg 24 hr tablet Take 1 tablet by mouth daily with breakfast. atorvastatin (LIPITOR) 80 mg tablet Take 1 tablet by mouth daily at bedtime. For cholesterol. ezetimibe (ZETIA) 10 mg tablet Take 1 tablet by mouth once daily. nitroglycerin sublingual (NITROSTAT) 0.4 mg SL tablet Dissolve 1 tablet under the tongue every 5 minutes as needed for chest pain. buPROPion SR (WELLBUTRIN SR) 150 mg 12 hr tablet Take 1 tablet by mouth once daily for 7 days, THEN1 tablet twice daily. fluticasone (FLONASE) 50 mcg/actuation nasal spray Use 1 [place] in each nostril once daily. Rinse mouth after use. EPINEPHrine (EPIPEN 2-ESTEFANIA) 0.3 mg/0.3 mL auto-injector Inject 0.3 mL intramuscularly as needed. blood sugar diagnostic (BLOOD GLUCOSE TEST) test strip Test blood sugar(s) 1 times daily. Dx: E11.9Insulin: No Galantamine Hydrobromide (RAZADYNE) 16 mg 24 hr capsule Take 1 capsule by mouth daily with breakfast. Per Neuro Dr. Partida (Patient taking differently: Take 16 mg by mouth daily with breakfast. Per Neuro Dr. Partida, taking in liquid form due to colostomy) memantine (NAMENDA) 5 mg tablet Take 5 mg by mouth twice daily. POTASSIUM ORAL Take by mouth as directed. sucralfate (CARAFATE) 1 gram tablet Take 1 tablet by mouth three times daily as needed. cholecalciferol, vitamin D3, (VITAMIN D3 ORAL) Take by mouth once daily. MAGNESIUM ORAL Take by mouth. Ferrous Sulfate (SLOW FE) 142 mg (45 mg iron) TbER Take 1 tablet by mouth once daily. Lancets lancets Test blood sugar(s) 1 times daily. Dx: Other DM Code E11.9, Insulin: No aspirin, enteric coated (ADULT LOW DOSE ASPIRIN) 81 mg EC tablet Take 1 tablet by mouth once daily. mometasone (NASONEX) 50 mcg/actuation nasal spray Mometasone Furoate [Nasonex] 2 SPRAY NASAL DAILY PRN For Cold Symptons December 30, 2017 Active (Patient not taking: Reported on 11/11/2022) cyclobenzaprine (FLEXERIL) 10 mg tablet From neuro (Patient not taking: Reported on 11/11/2022) doxepin capsule 75 mg Take 1 capsule by mouth daily at bedtime. Per Neuro Dr. Partida (Patient not taking: Reported on 11/11/2022) escitalopram oxalate (LEXAPRO) 20 mg tablet Take 20 mg by mouth once daily. (Patient not taking: Reported on 11/11/2022) Melatonin 5 mg cap Take 2 capsules by mouth daily at bedtime. (Patient not taking: No sig reported) LACTOBACILLUS ACIDOPHILUS (PROBIOTIC ORAL) Take 1 tablet by mouth twice daily. (Patient not taking:Reported on 05/08/2022) No current facility-administered medications for this visit. Allergies: Bees, Lipitor [Atorvastatin Calcium], Phenergan [Promethazine Hcl], Pravastatin, Wribzcg-Ilc-Bon Reductase Inhibitors, and Trazodone ROS: General (negative for fatigue, malaise, weight loss/gain) HEENT (negative for headache, earache, recent vision changes, sinus pain, sore throat) Respiratory (no recent shortness of breath, hemoptysis) CV (negative for chest tightness, palpitations) Musculoskeletal (see HPI) Psych (no depression, anxiety) Brain Ivy MD [facility]23 Miscellaneous Notes* Telephone Encounter - Maddison Munoz Ma - 10/24/2022 2:50 PM EDT Patient has been contacted and rescheduled. * Telephone Encounter - Regine Cadet Ma - 10/24/2022 11:20 AM EDT Please call patient to reschedule her appointment with Dr. Ivy. She just needs moved from the afternoon to the morning. * Telephone Encounter - Bev Bender LPN - 10/24/2022 11:14 AM EDT Patient called. Verified name and date of . Patient returning call about rescheduling appointment. Bev Bender LPN documented in this encounterLanc[facility]04-18-2023 History of Present illness Narrative* Zach Donovan RN - 10/08/2022 1:27 PM EDT [facility] Telephonic Outreach Provider Action/FYI CKD/DM Contacted for: Routine Telephonic Outreach Contact made with patient: No, left message. Zach Donovan RN October 10, 2022 1:08 PM documented in this encounterLanc[facility]04-14-2023 Miscellaneous Notes* Telephone Encounter - Charly Maria LPN - 10/04/2022 11:41 AM EDT Patient phones requesting refills as follows: Requested Prescriptions Pending Prescriptions Disp Refills mirtazapine (REMERON) 30 mg tablet 90 tablet 0 Sig: Take 1 tablet by mouth daily at bedtime. pantoprazole DR (PROTONIX) 40 mg tablet 90 tablet 1 Sig: Take 1 tablet by mouth once daily. dilTIAZem CD (CARTIA XT) 180 mg 24 hr capsule 90 capsule 1 Sig: Take 1 capsule by mouth once daily. mometasone (NASONEX) 50 mcg/actuation nasal spray CHEIKH 05/08/22 NOV 11/11/22 Please review and advise. Charly Maria LPN documented in this encounterL[facility]03-20-2023 Miscellaneous Notes* Telephone Encounter - Magan Amador MD - 09/09/2022 8:50 PM EDT The following approved medication requests have been transmitted electronically. Requested Prescriptions Signed Prescriptions Disp Refills Fenofibrate (LOFIBRA) 54 mg tablet 90 tablet 0 Sig: Take 1 tablet by mouth once daily. Authorizing Provider: MAGAN AMADOR MD * Telephone Encounter - Anay Gore Ma - 09/09/2022 7:43 PM EDT Last office visit: 05/08/22 F/u scheduled: 11/11/22 Anay Gore Ma * Telephone Encounter - Lupe Doyle [facility] - 09/09/2022 4:54 PM EDT Patient has been identified by name and date of : Yes Requested Prescriptions Pending Prescriptions Disp Refills Fenofibrate (LOFIBRA) 54 mg tablet 90 tablet 3 Sig: Take 1 tablet by mouth once daily. RX INSTRUCTIONS: Patient aware RX will be sent to pharmacy. No need to notify patient. [facility] documented in this encounterLanc[facility]03-13-2023 History of Present illness Narrative* Zach Donovan RN - 09/02/2022 9:57 AM EDT [facility] TELEPHONIC OUTREACH Provider Action/FYI: CKD/DM Contact made with patient: No - Left message Hello my name is Zach Donovan RN your Base F[facility] I am calling today for your bi-weekly check in. I am sorry I missed your call. I will reach out to you again tomorrow. (if the third call I will reach out to you again next week) Enter next patient outreach date forthe following using the Track Pt Outreach. End outreach. documented in this encounterL[facility]02-28-2023 Miscellaneous Notes* Telephone Encounter - Magan Amador MD - 08/20/2022 6:25 PM EST Please let patient know hwr remron was just filled on 07/15/2022 for a 90 day supply with one refill. She should not be needing a new script. * Telephone Encounter - Carmelita Naik LPN - 08/20/2022 3:53 PM EST CHEIKH: 05/08/22 NOV: 11/06/22 Last Refill: 07/18/22 #90 1 refill Carmelita Naik LPN * Telephone Encounter - Lashae Hoffmann Pss - 08/20/2022 2:39 PM EST Patient has been identified by name and date of : Yes Requested Prescriptions Pending Prescriptions Disp Refills mirtazapine (REMERON) 30 mg tablet 90 tablet 1 Sig: Take 1 tablet by mouth daily at bedtime. RX INSTRUCTIONS: Patient aware RX will be sent to pharmacy. No need to notify patient. Lashae Wilson documented in this encounterLanc[facility]02-21-2023 Miscellaneous Notes* Telephone Encounter - Heaven Garg PA-C - 08/13/2022 12:35 PM EST The following approved medication requests have been transmitted electronically. Requested Prescriptions Signed Prescriptions Disp Refills metFORMIN ER (GLUCOPHAGE XR) 500 mg 24 hr tablet 30 tablet 5 Sig: Take 1 tablet by mouth daily with breakfast. Authorizing Provider: HEAVEN GARG PA-C * Telephone Encounter - Enriqueta Hoffmann LPN - 08/13/2022 12:20 PM EST Spoke with pt and information listed below given. Pt verbalizes understanding. Pt would like to restart the Metformin. Pharmacy has been updated. Enriqueta Hoffmann LPN * Telephone Encounter - Raysa Goodson Ma - 08/13/2022 8:09 AM EST Patient was left message to call office back Raysa Goodson Ma * Telephone Encounter - Heaven Garg PA-C - 08/13/2022 7:19 AM EST Let patient know that her a1c is 6.6% which is still okay. Typically I wouldn't make medication changes at this level however she has had some elevated readings recently and we could have her restartmetformin if she is willing. Other option is that she can continue to monitor and update us with the next 2 weeks of glucose readings. documented in this encounterLanc[facility]02-20-2023 Miscellaneous Notes* Telephone Encounter - Heaven Garg PA-C - 08/12/2022 1:43 PM EST Noted. Will see what a1c is and decided on if changes are needed. * Telephone Encounter - Carmelita Naik LPN - 08/12/2022 1:19 PM EST Pt stopped in the office to report a couple blood sugar readings. 08/12/22 9:00am BS 157 fasting 08/12/22 11:13am BS 149 08/11/22 1:10 PM BS 216 fasting 08/11/22 10:57PM BS 188 Pt has appt with pcp 11/06/22. A1C today is in process. Carmelita Naik LPN documented in this encounterLanc[facility]02-20-2023 Miscellaneous Notes* Telephone Encounter - Fidelia Yanes MA - 08/12/2022 9:15 AM EST Patient notified. Fidelia Yanes MA * Telephone Encounter - Heaven Garg PA-C - 08/12/2022 9:05 AM EST Order placed. Last a1c in Apr was 6.4. * Telephone Encounter - Carola Trevino LPN - 08/12/2022 8:20 AM EST Pt calls to request lab order for A1C be placed. Pt reports her sugars have been out of whack andwould like to get lab checked. Pt reports she [place] two [place] and is coming into town today sowould like to get lab done today. Last A1C: 08/02/21 - 6.7 Carola Trevino LPN documented in this encounterLanc[facility]02-10-2023 History of Present illness Narrative* Zach Donovan RN - 08/02/2022 9:49 AM EST INSIGHT [facility]M TELEPHONIC OUTREACH Provider Action/FYI: Contact made with patient: No - Left message Hello my name is Zach Donovan RN your Base Filler [facility] I am calling today for your bi-weekly check in. I am sorry I missed your call. I will reach out to you again tomorrow. (if the third call I will reach out to you again next week) Enter next patient outreach date forthe following using the Track Pt Outreach. End outreach. documented in this encounterL[facility]01-16-2023 Miscellaneous Notes* Telephone Encounter - Fidelia Yanes MA - 07/08/2022 2:03 PM EST Patient has been identified by name and date of : Yes Requested Prescriptions Pending Prescriptions Disp Refills Fenofibrate (LOFIBRA) 54 mg tablet 30 tablet 0 Sig: Take 1 tablet by mouth once daily. mirtazapine (REMERON) 30 mg tablet 90 tablet 0 Sig: Take 1 tablet by mouth daily at bedtime. RX INSTRUCTIONS: Patient aware RX will be sent to pharmacy. No need to notify patient. Fidelia Yanes MA Cheikh: 04/2022 Nov: 10/2022 Last refill: 05/2022 * Telephone Encounter - Leticia Cruz Pss - 07/08/2022 1:53 PM EST Patient has been identified by name and date of : Yes Requested Prescriptions Pending Prescriptions Disp Refills Fenofibrate (LOFIBRA) 54 mg tablet 30 tablet 0 Sig: Take 1 tablet by mouth once daily. mirtazapine (REMERON) 30 mg tablet 90 tablet 0 Sig: Take 1 tablet by mouth daily at bedtime. RX INSTRUCTIONS: Patient aware RX will be sent to pharmacy. No need to notify patient. Leticia Anthony Pss documented in this encounterLanc[facility]12-29-2022 Miscellaneous Notes* Telephone Encounter - Angelique Grimes RN - 06/20/2022 12:56 PM EST Patient calls and notified of provider response. Patient states that she will wait to see how it goes and how she feels and schedule appointment later. Angelique Grimes RN * Telephone Encounter - Joelle Pruett RN - 06/20/2022 12:48 PM EST Called and left a voicemail for the Patient to call back and ask for a nurse to receive the providers message. Joelle Pruett RN * Telephone Encounter - Heaven Garg PA-C - 06/20/2022 11:26 AM EST Noted. Will await records. Could schedule a follow upin 2-4 weeks. Heaven Garg PA-C * Telephone Encounter - Susan Ledezma LPN - 06/20/2022 10:18 AM EST Patient calling on 06/13/2022 she had fall outside walking her dog. Patient said she went to urgentcare near where she lives and told has fractured right ribs 5, 6, 7, and 8. Was given short Tramadol rx and to take tylenol when rx is gone. She was told to splint with a pillow if coughing and not to use a binder, take deep breaths. Patient was going to see if records could be sent to PCP. documented in this encounterLanc[facility]12-19-2022 Miscellaneous Notes* Telephone Encounter - Angelique Grimes RN - 06/10/2022 1:07 PM EST Patient calls and notified of provider recommendations. Patient voiced understanding. Angelique Grimes RN * Telephone Encounter - Joelle Pruett RN - 06/10/2022 1:04 PM EST Called and left a voicemail for the Patient to call back and ask for a nurse to receive the providers message. Joelle Pruett RN * Telephone Encounter - Magan Amador MD - 06/10/2022 12:11 PM EST Please advise patient she should go to a Express care or Urgent care center near her to have her mouth looked at to see if has thrush or another issue. * Telephone Encounter - Quyen Bruce Pss - 06/10/2022 10:38 AM EST Patient requested this on 06/05/22 request for medication for mouth irritation. Please advise. Patient has been identified by name and date of : Yes Nystatin 4 ml by mouth 4 times a day RX INSTRUCTIONS: Patient aware RX will be sent to pharmacy. No need to notify patient. Quyen Bruce Pss documented in this encounterL[facility]12-19-2022 Miscellaneous Notes* Telephone Encounter - Fidelia Yanes MA - 06/10/2022 10:41 AM EST Patient has been identified by name and date of : Yes Requested Prescriptions Pending Prescriptions Disp Refills atorvastatin (LIPITOR) 80 mg tablet 90 tablet 1 Sig: Take 1 tablet by mouth daily at bedtime. For cholesterol. Fenofibrate (LOFIBRA) 54 mg tablet 30 tablet 0 Sig: Take 1 tablet by mouth once daily. RX INSTRUCTIONS: Patient aware RX will be sent to pharmacy. No need to notify patient. Fidelia Yanes MA Cheikh: 04/2022 Nov: 10/2022 Last refill: 07/2021 * Telephone Encounter - Quyen Bruce Pss - 06/10/2022 10:36 AM EST Patient has been identified by name and date of : Yes Requested Prescriptions Pending Prescriptions Disp Refills atorvastatin (LIPITOR) 80 mg tablet 90 tablet 1 Sig: Take 1 tablet by mouth daily at bedtime. For cholesterol. Fenofibrate (LOFIBRA) 54 mg tablet 30 tablet 0 Sig: Take 1 tablet by mouth once daily. RX INSTRUCTIONS: Patient aware RX will be sent to pharmacy. No need to notify patient. Quyen Bruce Pss documented in this encounterLanc[facility] Hospital12-14-2022 Miscellaneous Notes* Telephone Encounter - Magan Amador MD - 06/05/2022 12:47 PM EST The following approved medication requests have been transmitted electronically. Requested Prescriptions Signed Prescriptions Disp Refills ezetimibe (ZETIA) 10 mg tablet 30 tablet 5 Sig: Take 1 tablet by mouth once daily. Authorizing Provider: MAGAN AMADOR MD * Telephone Encounter - WARREN Gross - 06/05/2022 12:37 PM EST CHEIKH 05/08/22 Appointment scheduled for 11/06/22 Please advise. Thank you. WARREN Gross * Telephone Encounter - Mel Mary Pss - 06/05/2022 12:31 PM EST Patient has been identified by name and date of : Yes Last office visit in this department: 05/08/2022 RX INSTRUCTIONS: Patient aware RX will be sent to pharmacy. No need to notify patient. Patient also requesting refill of Nystatin 4 ml by mouth 4 times a day. Patient phones requesting refills as follows: Requested Prescriptions Pending Prescriptions Disp Refills ezetimibe (ZETIA) 10 mg tablet 30 tablet 0 Sig: Take 1 tablet by mouth once daily. Please review and advise. Mel Mary Pss documented in this encounterLancaster [facility] Hospital12-07-2022 History of Present illness Narrative* Zach Donovan RN - 05/29/2022 9:37 AM EST Ryanne [facility] Engagement Provider Action/FY Has never logged on to my chart. -Changed to telephonic outreach CKD Contact Made with Patient: No, first attempt, left message. Memo Yu. This is Zach Donovan RN your Base Filler [facility]. Ld calling to check in with you concerning the MyChart questionnaire you have been receiving from me. I will call you again tomorrow and am looking forward to speaking with you. (Base Filler enters next day in next patient outreach) * Zach Donovan RN - 05/29/2022 9:35 AM EST RYANNE [facility] TELEPHONIC OUTREACH Provider Action/FYI: CKD Contact made with patient: No - Left message Memo my name is Zach Donovan RN your Base Filler [facility] the [facility] I am calling today for your bi-weekly check in. I am sorry I missed your call. I will reach out to you again tomorrow. (if the third call I will reach out to you again next week) Enter next patient outreach date forthe using the Track Pt Outreach. End outreach. documented in this encounterLancaster [facility] Hospital11-28-2022 Miscellaneous Notes* Telephone Encounter - Tonie Turpin LPN - 05/20/2022 8:38 AM EST Patient notified of results and provider's instructions. Patient verbalizes understanding. Tonie Turpin LPN * Telephone Encounter - Heaven Garg PA-C - 05/20/2022 8:02 AM EST Let patient know that I finally received all her lab results. There are a couple levels in her catecholamines and metanephrine labs that came back abnormal. Nextstep to investigate is to get 24hr urine collection to see if true elevations. Her cholesterol levels are stable. Trigs are still high. Watch diet. Metabolic panel is also stable overall. A1c is 6.4% which is good and improved since last check. Her chronic anemia is better compared to previous years. No changes need. Rest of labs are all normal. Heaven Garg PA-C documented in this encounterLancaster [facility] Hospital11-17-2022 History of Present illness Narrative* Zach Donovan RN - 05/09/2022 12:45 PM EST [facility] CDM Engagement Provider Action/FYI: Enrolled using questionnaire Never logged onto my chart CKD LVM Contact Made with Patient: No, second attempt, left message. Memo Yu. This is Zach Donovan RN your Base Filler [facility]. Ld calling to check in with you concerning the MyChart questionnaire you have been receiving from me. I will call you again next week and am looking forward to speaking with you. (Base Filler enters next week's date in next patient outreach) * Zach Donovan RN - 05/08/2022 9:59 AM EST [facility] Engagement Provider Action/FYI: Enrolled using questionnaire Never logged onto my chart CKD LVM Contact Made with Patient: No, first attempt, left message. Memo Yu. This is Zach Donovan RN your Base Filler [facility]. Ld calling to check in with you concerning the MyChart questionnaire you have been receiving from me. I will call you again tomorrow and am looking forward to speaking with you. (Base Filler enters next day in next patient outreach) documented in this encounterLancaster [facility] Hospital11-17-2022 Miscellaneous Notes* Telephone Encounter - Enriqueta Hoffmann LPN - 05/09/2022 9:30 AM EST Spoke with pt and information listed below given. Pt verbalizes understanding. Enriqueta Hoffmann LPN * Telephone Encounter - Isaiah Wise RN - 05/09/2022 8:25 AM EST Left vm for patient to return call to nurse for provider message. * Telephone Encounter - Heaven Garg PA-C - 05/09/2022 8:02 AM EST Lab needs new order for UA placed as the container was leaking/broke while in transport. Patient can do this at her convenience. (Ie when she is in wing next month for her pulm appointment). Heaven Garg PA-C documented in this encounterLancaster [facility] Hospital11-16-2022 History of Present illness Narrative* Heaven Garg PA-C - 05/08/2022 1:46 PM EST Medicare Yearly Visit Medical B eligibilty date 05/23/19 Date of last exam n/a PAST MEDICAL HISTORY Diagnosis Date Age-related osteoporosis without current pathological fracture 06/01/2020 Anxiety 07/05/2013 Asthma diagnosed in childhood Urias's palsy Bilateral carotid artery disease (HCC) 12/15/2017 US 11/2017: 20-40% on right and 40-60% on left. Bursitis of right hip 04/01/2013 Chicken pox as a child Colostomy in place (HCC) 06/01/2020 Placed 2019 after colectomy due to perforated diverticulitis. 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 07/09/[address] Cunningham, stent to LAD Current moderate episode of major depressive disorder without prior episode ([facility]) 07/14/2018 Current use of proton pump inhibitor 06/26/2017 Mg checked 06/2017 Diverticulosis 11/16/2013 Essential hypertension Ex-smoker 10/19/2014 Started at age 14 smoked up to 1 PPD. As of 12/2015 1/2 PPD or less. Quit 08/2019 Fibromyalgia 11/17/2013 Foot callus 06/01/2020 Gastroesophageal reflux disease without esophagitis 01/08/2016 Hiatal hernia 07/28/2017 Hip arthritis 04/01/[address] Ivy (Ortho) History of shingles 2005 Insomnia 01/08/2016 Iron deficiency anemia 07/04/2019 Lumbar degenerative disc disease 12/28/[address] Arriaza Migraine without aura and without status migrainosus, not intractable 07/09/2016 Mixed hyperlipidemia Osteoarthritis of multiple joints 09/06/[address] Ford Continue home meds: prednisone and methotrexate RLS (restless legs syndrome) Smoker 10/19/2014 Started at age 14 smoked up to 1 PPD. As of 12/2015 1/2 PPD or less. Stage 3b chronic kidney disease (HCC) 06/02/2020 Tear of left rotator cuff 07/24/2017 Added automatically from request for surgery [id number] Type 2 diabetes mellitus without complication, without long-term current use of insulin (HCC) 12/17/2017 Unspecified dementia with behavioral disturbance 07/21/[address] Partida. He also stopped her cymbalta and started Zoloft PAST SURGICAL HISTORY Procedure Laterality Date 2D ECHO (EXEP) 08/24/2019 EF=65%, mild Freire Dysf, 1+ TI, APPENDECTOMY HX 1975 BREAST BIOPSY 07/30/2018 left vacuum assisted core needle biopsy [facility] COLONOSCOPY FLX DX W/COLLJ SPEC WHEN PFRMD 09/01/2018 Colonoscopy, repeat 10 yrs ESOPHAGOGASTRODUODENOSCOPY TRANSORAL DIAGNOSTIC 09/01/2018 EGD LAPAROSCOPIC HEMICOLECTOMY 2018 due to ruptured diverticulitis, has colostomy LAPAROSCOPY SURG CHOLECYSTECTOMY Cholecystectomy, lap LIG/TRNSXJ FLP TUBE ABDL/VAG APPR UNI/BI Tubal ligation PAST SURGICAL HISTORY OF bladder lift RECONSTRUCTION ROTATOR CUFF AVULSION CHRONIC Left 08/08/2017 Left shoulder arthroscopy, Open RCR and SAD STENT PLACEMENT 05/06/2013 LAD STRESS TEST 07/28/2017 normal TOTAL ABDOMINAL HYSTERECT W/WO RMVL TUBE OVARY Hysterectomy, LESA ALLERGIES: Bees, Lipitor [Atorvastatin Calcium], Phenergan [Promethazine Hcl], Pravastatin, Dtjzjte-Fdl-Cyk Reductase Inhibitors, and Trazodone Medications reviewed: Yes FAMILY HISTORY Problem Relation Age of Onset Cancer Father Pancreatic Hypertension Mother at age 7, NM at age 42 Coronary Artery Disease Mother 70 Lipids Mother Headache Mother Cancer Sister Non Hodgken's lymphoma Diabetes Sister Thyroid Sister No Known Problems Daughter No Known Problems Son Diabetes Brother other (Other) Brother MDS Diabetes Maternal Aunt Heart Attack Maternal Grandmother COPD Maternal Grandfather Cancer Paternal Grandmother Stroke Paternal Grandfather SOCIAL HISTORY: Social History Tobacco Use Smoking status: Former Packs/day: 0.50 Years: 40.00 Pack years: 20.00 Types: Cigarettes Start date: 06/23/1968 Quit date: 05/18/2021 Years since quittin.9 Smokeless tobacco: Never Substance Use Topics Alcohol use: No Drug use: No Ty likes to exercise by walking. She watches her diet for sodium, low fat and low cholesterol most of the time. List of current specialists seen: Neuro Cardio Pulm Ortho randomly. End of Live Planning discussed including patients advanced directive wishes: Yes I am willing to follow Ty's advanced directives. Depression Screening 01/08/2016 06/26/2017 07/14/2018 05/08/2022 PHQ-2 Score 1 0 2 0 Depression screening tool completed and reviewed. Based on score and interview, patient is not at risk for depression. Screening tool discussed with patient, and I recommended no further interventionat this time. Functional Ability/Safety Screen 1. Was the patient's timed Up and Go test unsteady or longer than 30 seconds? No 2. Does the patient need help with the phone, transportation, shopping,preparing meals, housework, laundry, medications or managing money? No 3. Does your home have rugs in the hallway, lack of grab bars in the bathroom, lack of handrails onthe stairs or have poor lighting? No Hearing Evaluation: normal PHYSICAL EXAM BP 122/68 (BP Site: Left Arm, BP Position: Sitting) Pulse 76 Resp 18 Wt 79.3 kg (174 lb 12.8 oz) LMP 05/22/2006 BMI 29.09 kg/m Alert and oriented X 3: YES Body mass index is 29.09 kg/m . Visual acuity: sees opto ASSESSMENT/PLAN: 66 year old female The following prevention plan was discussed during the office visit and provided to the patient: See below Heaven Garg PA-C Chief Complaint Patient presents with: Medicare Wellness Exam HPI Ty Yu is a 66 year old female who presents here today for extensive exam. Patient with hx of DM2, HTN, HLP, a. Fib, GERD, anemia, RLS, Migraines, fibro, and those as below Patient states she continues to have episodes of feeling shaky, flushing, feels weak, and then coldrush. Each episode lasts maybe 5 minutes. Happens maybe once or twice a week. Continues to have chronic pain. Asking for norco refill. Has been seeing cardiology and pulm. Had PFT and 6 min walk test done today. Past medical history, appointments, medications, allergies reviewed. Previous Medical History PAST MEDICAL HISTORY Diagnosis Date Age-related osteoporosis without current pathological fracture 06/01/2020 Anxiety 07/05/2013 Asthma diagnosed in childhood Urias's palsy Bilateral carotid artery disease (HCC) 12/15/2017 US 11/2017: 20-40% on right and 40-60% on left. Bursitis of right hip 04/01/2013 Chicken pox as a child Colostomy in place (HCC) 06/01/2020 Placed 2019 after colectomy due to perforated diverticulitis. 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 07/09/[address] Cunningham, stent to LAD Current moderate episode of major depressive disorder without prior episode (HCC) 07/14/2018 Current use of proton pump inhibitor 06/26/2017 Mg checked 06/2017 Diverticulosis 11/16/2013 Essential hypertension Ex-smoker 10/19/2014 Started at age 14 smoked up to 1 PPD. As of 12/2015 1/2 PPD or less. Quit 08/2019 Fibromyalgia 11/17/2013 Foot callus 06/01/2020 Gastroesophageal reflux disease without esophagitis 01/08/2016 Hiatal hernia 07/28/2017 Hip arthritis 04/01/[address] Ivy (Ortho) History of shingles 2005 Insomnia 01/08/2016 Iron deficiency anemia 07/04/2019 Lumbar degenerative disc disease 12/28/[address] Arriaza Migraine without aura and without status migrainosus, not intractable 07/09/2016 Mixed hyperlipidemia Osteoarthritis of multiple joints 09/06/[address] Ford Continue home meds: prednisone and methotrexate RLS (restless legs syndrome) Smoker 10/19/2014 Started at age 14 smoked up to 1 PPD. As of 12/2015 1/2 PPD or less. Stage 3b chronic kidney disease (HCC) 06/02/2020 Tear of left rotator cuff 07/24/2017 Added automatically from request for surgery [id number] Type 2 diabetes mellitus without complication, without long-term current use of insulin (HCC) 12/17/2017 Unspecified dementia with behavioral disturbance 07/21/[address] Partida. He also stopped her cymbalta and started Zoloft Previous Surgical History PAST SURGICAL HISTORY Procedure Laterality Date 2D ECHO (EXEP) 08/24/2019 EF=65%, mild Freire Dysf, 1+ TI, APPENDECTOMY HX 1975 BREAST BIOPSY 07/30/2018 left vacuum assisted core needle biopsy [facility] COLONOSCOPY FLX DX W/COLLJ SPEC WHEN PFRMD 09/01/2018 Colonoscopy, repeat 10 yrs ESOPHAGOGASTRODUODENOSCOPY TRANSORAL DIAGNOSTIC 09/01/2018 EGD LAPAROSCOPIC HEMICOLECTOMY 2018 due to ruptured diverticulitis, has colostomy LAPAROSCOPY SURG CHOLECYSTECTOMY Cholecystectomy, lap LIG/TRNSXJ FLP TUBE ABDL/VAG APPR UNI/BI Tubal ligation PAST SURGICAL HISTORY OF bladder lift RECONSTRUCTION ROTATOR CUFF AVULSION CHRONIC Left 08/08/2017 Left shoulder arthroscopy, Open RCR and SAD STENT PLACEMENT 05/06/2013 LAD STRESS TEST 07/28/2017 normal TOTAL ABDOMINAL HYSTERECT W/WO RMVL TUBE OVARY Hysterectomy, LESA Family History FAMILY HISTORY Problem Relation Age of Onset Cancer Father Pancreatic Hypertension Mother at age 7, NM at age 42 Coronary Artery Disease Mother 70 Lipids Mother Headache Mother Cancer Sister Non Hodgken's lymphoma Diabetes Sister Thyroid Sister No Known Problems Daughter No Known Problems Son Diabetes Brother other (Other) Brother MDS Diabetes Maternal Aunt Heart Attack Maternal Grandmother COPD Maternal Grandfather Cancer Paternal Grandmother Stroke Paternal Grandfather Patient Allergies ALLERGIES Allergen Reactions Bees Anaphylaxis Lipitor [Atorvastat* Myalgia Phenergan [Prometha* GI Upset Pravastatin Myalgia Ofgfwmo-Frq-Ugk Red* Myalgia Trazodone Other: See Comments Increased urine frequency Current Medications Current Outpatient Medications on File Prior to Visit Medication Sig Fenofibrate (LOFIBRA) 54 mg tablet Take 1 tablet by mouth once daily. ezetimibe (ZETIA) 10 mg tablet Take 1 tablet by mouth once daily. pantoprazole DR (PROTONIX) 40 mg tablet Take 1 tablet by mouth once daily. mirtazapine (REMERON) 30 mg tablet Take 1 tablet by mouth daily at bedtime. HYDROcodone-acetaminophen (NORCO) 5-325 mg per tablet Take 1 tablet by mouth every 8 hours as needed for pain. dilTIAZem CD (CARTIA XT) 180 mg 24 hr capsule Take 1 capsule by mouth once daily. fluticasone (FLONASE) 50 mcg/actuation nasal spray Use 1 [place] in each nostril once daily. Rinse mouth after use. EPINEPHrine (EPIPEN 2-ESTEFANIA) 0.3 mg/0.3 mL auto-injector Inject 0.3 mL intramuscularly as needed. cyclobenzaprine (FLEXERIL) 10 mg tablet From neuro atorvastatin (LIPITOR) 80 mg tablet Take 1 tablet by mouth daily at bedtime. For cholesterol. blood sugar diagnostic (BLOOD GLUCOSE TEST) test strip Test blood sugar(s) 1 times daily. Dx: E11.9Insulin: No doxepin capsule 75 mg Take 1 capsule by mouth daily at bedtime. Per Neuro Dr. Partida Galantamine Hydrobromide (RAZADYNE) 16 mg 24 hr capsule Take 1 capsule by mouth daily with breakfast. Per Neuro Dr. Partida (Patient taking differently: Take 16 mg by mouth daily with breakfast. Per Neuro Dr. Partida, taking in liquid form due to colostomy) escitalopram oxalate (LEXAPRO) 20 mg tablet Take 20 mg by mouth once daily. memantine (NAMENDA) 5 mg tablet Take 5 mg by mouth twice daily. POTASSIUM ORAL Take by mouth as directed. sucralfate (CARAFATE) 1 gram tablet Take 1 tablet by mouth three times daily as needed. cholecalciferol, vitamin D3, (VITAMIN D3 ORAL) Take by mouth once daily. MAGNESIUM ORAL Take by mouth. Ferrous Sulfate (SLOW FE) 142 mg (45 mg iron) TbER Take 1 tablet by mouth once daily. nitroglycerin sublingual (NITROSTAT) 0.4 mg SL tablet Dissolve 1 tablet under the tongue every 5 minutes as needed for Chest Pain. Lancets lancets Test blood sugar(s) 1 times daily. Dx: Other DM Code E11.9, Insulin: No aspirin, enteric coated (ADULT LOW DOSE ASPIRIN) 81 mg EC tablet Take 1 tablet by mouth once daily. buPROPion SR (WELLBUTRIN SR) 150 mg 12 hr tablet Take 1 tablet by mouth once daily for 7 days, THEN1 tablet twice daily. scopolamine (TRANSDERM-SCOP) patch 1.5 mg/72 hr (delivers 1 mg over 3 days) Apply 1 Patch as directed every 72 hours. (Patient not taking: Reported on 01/24/2022 ) Melatonin 5 mg cap Take 2 capsules by mouth daily at bedtime. (Patient not taking: No sig reported) LACTOBACILLUS ACIDOPHILUS (PROBIOTIC ORAL) Take 1 tablet by mouth twice daily. (Patient not taking:Reported on 05/08/2022) No current facility-administered medications on file prior to visit. Social History Social History Tobacco Use Smoking status: Former Packs/day: 0.50 Years: 40.00 Pack years: 20.00 Types: Cigarettes Start date: 06/23/1968 Quit date: 05/18/2021 Years since quittin.9 Smokeless tobacco: Never Substance Use Topics Alcohol use: No Drug use: No Review of Symptoms REVIEW OF SYSTEMS As noted in HPI otherwise stable/negative. EXAM: BP 122/68 (BP Site: Left Arm, BP Position: Sitting) Pulse 76 Resp 18 Wt 79.3 kg (174 lb 12.8 oz) LMP 05/22/2006 BMI 29.09 kg/m General Appearance: Well appearing, alert, in no acute distress, well-hydrated, well nourished. andOverweight. Skin: Skin color, texture, turgor normal, no suspicious rashes or lesions. Head: Normocephalic, no masses, lesions, tenderness or abnormalities. Nose/Sinuses: Nares normal, septum midline, mucosa normal, no drainage or sinus tenderness. Neck: Supple, no adenopathy; thyroid symmetric, normal size, no bruits. Lungs: Lungs clear to auscultation. No wheezing, rhonchi, rales.. Heart: RRR without murmur, gallop, or rubs. No ectopy. Abdomen: Normal abdominal exam, Abdomen soft, non-tender. Bowel sounds normal. No masses, organomegaly. Extremities: No deformities, edema, skin discoloration, clubbing or cyanosis. Good capillary refill. .. Peripheral Pulses: Normal. Neurologic: Gait normal. Reflexes normal and symmetric. Sensation grossly intact.. Health Maintenance List LUNG CANCER SCREENING Never done SHINGRIX VACCINE(1 of 2) Never done MAMMOGRAM due on 06/18/2019 BONE DENSITY Never done ADVANCE DIRECTIVE DISCUSSION Never done COVID-19 VACCINE(4 - Booster for Pfizer series) due on 08/14/2021 HEMOGLOBIN/HEMATOCRIT due on 01/15/2022 HBA1C due on 01/30/2022 SERUM CREATININE due on 02/12/2022 INFLUENZA(1) due on 02/21/2022 URINE ALBUMIN:CREATININE RATIO due on 08/02/2022 LDL CHOLESTEROL due on 08/02/2022 DIABETIC FOOT EXAM due on 08/02/2022 BP CONTROLLED (<130/80) due on 08/02/2022 DILATED RETINAL EXAM due on 09/14/2022 ANNUAL PCP TEAM CHRONIC DISEASE VISIT due on 05/08/2023 DTAP,TDAP,TD(2 - Td or Tdap) due on 12/30/2027 COLORECTAL CANCER SCREENING due on 02/20/2030 PNEUMOCOCCAL: 65+ Completed HEPATITIS C SCREENING Discontinued Data reviewed N/a ASSESSMENT/PLAN: 1. Encounter for Medicare annual wellness exam - ICD9: V70.0, ICD10: Z00.00 (primary diagnosis) - Counseled on healthy diet and regular exercise - Calcium intake with supplements or by diet of 1000 mg/day for under 50, 1200- 1500 mg/day for 50+ - Patient was counseled [id number] by myself (the billing provider) for the following immunizations and vaccine components, including side effects: COVID-19 and Influenza. Patient consents for immunization and understands risks and benefits. A VIS sheet on each immunization was given to the patient. 2. Advance directive discussed with patient - ICD9: V65.49, ICD10: Z71.89 Updated in chart. Asked patient to bring copy 3. Glaucoma suspect of both eyes - ICD9: 365.00, ICD10: H40.003 Cont with Ophthalmology 4. Cataract, unspecified cataract type, unspecified laterality - ICD9: 366.9, ICD10: H26.9 As above 5. Ex-smoker - ICD9: V15.82, ICD10: Z87.[address] neg 6. Flushing - ICD9: 782.62, ICD10: R23.2 Check: - CATECHOLAMINES FRA - FOLATE SERUM - VITAMIN B12 BLOOD - METANEPHRINES, FREE PLASMA 7. Essential hypertension - ICD9: 401.9, ICD10: I10 - good control - Continue current medication(s) - Recommended regular aerobic exercise. - Recommend home blood pressure monitoring, to bring results in on next visit - Goal of BP <130/80 - CBC + DIFF - URINALYSIS, WITH MICROSCOPIC - COMP METABOLIC PANEL 8. Mixed hyperlipidemia - ICD9: 272.2, ICD10: E78.2 - to be determined upon return of lab results - Encouraged following a low carbohydrate, healthy oil intake diet. - Continue current therapy. - LIPID PANEL, NONFASTING 9. 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- ICD9: 414.01, ICD10: I25.10 Cont with cardio 10. Migraine without aura and without status migrainosus, not intractable - ICD9: 346.10, ICD10: G43.009 Cont with neuro 11. Gastroesophageal reflux disease without esophagitis - ICD9: 530.81, ICD10: K21.9 stable 12. Moderate pulmonary hypertension (HCC) - ICD9: 416.8, ICD10: I27.20 Cont with cardio 13. Paroxysmal atrial fibrillation (HCC) - ICD9: 427.31, ICD10: I48.0 Cont wit hcardio 14. Stage 3b chronic kidney disease (HCC) - ICD9: 585.3, ICD10: N18.32 Await labs 15. Type 2 diabetes mellitus without complication, without long-term current use of insulin (HCC) -ICD9: 250.00, ICD10: E11.9 Await labs - URINALYSIS, WITH MICROSCOPIC - COMP METABOLIC PANEL - HGB A1C 16. Abnormal thyroid blood test - ICD9: 790.6, ICD10: R79.89 Recheck TSH 17. Bilateral carotid artery disease, unspecified type (HCC) - ICD9: 447.9, ICD10: I77.9 18. Encounter for immunization - ICD9: V03.89, ICD10: Z23 - INFLUENZA SEASONAL QUADRIVALENT HIGH DOSE AGE 65+ - PFIZER-BIONTECH COVID-19 BIVALENT BOOSTER VACCINE, AGE 12+ YR 19. Hot flashes - ICD9: 782.62, ICD10: R23.2 Check: - CATECHOLAMINES FRA - TSH BLD - FOLATE SERUM - VITAMIN B12 BLOOD - T4 FREE/FREE THYROX - METANEPHRINES, FREE PLASMA 20. Fatigue, unspecified type - ICD9: 780.79, ICD10: R53.83 check - TSH BLD - T4 FREE/FREE THYROX 21. Screening mammogram for breast cancer - ICD9: V76.12, ICD10: Z12.31 - Set up for mammogram, yearly mammogram recommended - [facility] SCREENING Heaven Garg PA-C I spent a total of 42 minutes on the date of the service which included preparing to see the patient, [id number] patient care, completing clinical documentation, obtaining and/or reviewing separately obtained history, performing a medically appropriate examination, counseling and educating the pat ient/family/caregiver, ordering medications, tests, or procedures, and communicating results to thepatient/family/caregiver. documented in [facility] encounterL[facility]11-15-2022 Miscellaneous Notes* Telephone Encounter - Anay Gore Ma - 05/07/2022 11:49 AM EST Last office visit: 08/02/21 F/u scheduled: 05/08/22 Anay Gore Ma * Telephone Encounter - Monalisa Silvia - 05/07/2022 11:27 AM EST [id number] has been identified by name and date of : Yes Requested Prescriptions Pending Prescriptions Disp Refills Fenofibrate (LOFIBRA) 54 mg tablet 30 tablet 0 Sig: Take 1 tablet by mouth once daily. ezetimibe (ZETIA) 10 mg tablet 30 tablet 0 Sig: Take 1 tablet by mouth once daily. RX INSTRUCTIONS: Patient aware RX will be sent to pharmacy. No need to notify patient. Monalisa Vega documented in this encounterLanc[facility]10-17-2022 Miscellaneous Notes* Telephone Encounter - Fidelia Yanes MA - 04/08/2022 11:42 AM EDT Patient has been identified by name and date of : Yes Requested Prescriptions Pending Prescriptions Disp Refills pantoprazole DR (PROTONIX) 40 mg tablet 90 tablet 1 Sig: Take 1 tablet by mouth once daily. ezetimibe (ZETIA) 10 mg tablet 30 tablet 0 Sig: Take 1 tablet by mouth once daily. Fenofibrate (LOFIBRA) 54 mg tablet 30 tablet 0 Sig: Take 1 tablet by mouth once daily. RX INSTRUCTIONS: Patient aware RX will be sent to pharmacy. No need to notify patient. Fidelia Yanes MA Cheikh: 07/2021 Nov: 04/2022 Last refill: 02/2022 * Telephone Encounter - Quyen Wilson - 04/08/2022 10:45 AM EDT Patient has been identified by name and date of : Yes Requested Prescriptions Pending Prescriptions Disp Refills pantoprazole DR (PROTONIX) 40 mg tablet 90 tablet 1 Sig: Take 1 tablet by mouth once daily. ezetimibe (ZETIA) 10 mg tablet 30 tablet 0 Sig: Take 1 tablet by mouth once daily. Fenofibrate (LOFIBRA) 54 mg tablet 30 tablet 0 Sig: Take 1 tablet by mouth once daily. RX INSTRUCTIONS: Patient aware RX will be sent to pharmacy. No need to notify patient. Quyen Bruce Pss documented in this encounterL[facility]10-12-2022 Miscellaneous Notes* Telephone Encounter - Heaven Garg PA-C - 04/03/2022 1:33 PM EDT The following approved medication requests have been transmitted electronically. Requested Prescriptions Signed Prescriptions Disp Refills mirtazapine (REMERON) 30 mg tablet 90 tablet 0 Sig: Take 1 tablet by mouth daily at bedtime. Authorizing Provider: HEAVEN GARG ezetimibe (ZETIA) 10 mg tablet 30 tablet 0 Sig: Take 1 tablet by mouth once daily. Authorizing Provider: HEAVEN GARG PA-C * Telephone Encounter - Michelle Rivera - 04/03/2022 12:18 PM EDT Patient has been identified by name and date of : Yes Last office visit in this department: 08/02/2021 RX INSTRUCTIONS: Patient aware RX will be sent to pharmacy. No need to notify patient. Patient phones requesting refills as follows: Requested Prescriptions Pending Prescriptions Disp Refills mirtazapine (REMERON) 30 mg tablet 90 tablet 0 Sig: Take 1 tablet by mouth daily at bedtime. ezetimibe (ZETIA) 10 mg tablet 30 tablet 0 Sig: Take 1 tablet by mouth once daily. Please review and advise. Michelle Rivera documented in this encounterL[facility]09-07-2022 Miscellaneous Notes* Telephone Encounter - Magan Amador MD - 02/27/2022 1:49 PM EDT The following approved medication requests have been transmitted electronically. Requested Prescriptions Signed Prescriptions Disp Refills ezetimibe (ZETIA) 10 mg tablet 30 tablet 0 Sig: Take 1 tablet by mouth once daily. Authorizing Provider: MAGAN AMADOR Fenofibrate (LOFIBRA) 54 mg tablet 30 tablet 0 Sig: Take 1 tablet by mouth once daily. Authorizing Provider: MAGAN AMADOR MD * Telephone Encounter - Flor Hernandez LPN - 02/27/2022 10:54 AM EDT Last office visit: 08/02/21 Next appointment scheduled: 03/19/22 Last labs: 08/02/10 total cholesterol 122 Patient phones requesting refills as follows: Requested Prescriptions Pending Prescriptions Disp Refills ezetimibe (ZETIA) 10 mg tablet 30 tablet 1 Sig: Take 1 tablet by mouth once daily. Fenofibrate (LOFIBRA) 54 mg tablet 30 tablet 1 Sig: Take 1 tablet by mouth once daily. Please review and advise. Flor Hernandez LPN * Telephone Encounter - Malgorzata Lees - 02/27/2022 10:47 AM EDT Patient has been identified by name and date of : Yes Requested Prescriptions Pending Prescriptions Disp Refills ezetimibe (ZETIA) 10 mg tablet 30 tablet 1 Sig: Take 1 tablet by mouth once daily. Fenofibrate (LOFIBRA) 54 mg tablet 30 tablet 1 Sig: Take 1 tablet by mouth once daily. RX INSTRUCTIONS: Patient aware RX will be sent to pharmacy. No need to notify patient. Malgorzata Lees documented in this encounterL[facility]09-02-2022 Miscellaneous Notes* Telephone Encounter - Brain Ivy MD - 02/22/2022 5:24 PM EDT I sent a prescription to her pharmacy. The phone disconnected 3 times when I tried calling. * Telephone Encounter - Maddison Munoz Ma - 02/22/2022 12:56 PM EDT Patient called again asking for something to help relieve her pain until injection on Friday. * Telephone Encounter - Maddison Munoz Ma - 02/21/2022 1:45 PM EDT Patient called in again stating that she has hip injection under fluoro scheduled on 02/26/2022, but her pain is sharp,10/10 today and she is not able to bear any weight on her right leg. She is askingif something could be called in to help her until she gets her injection on Friday? Confirmed [facility] in [place], [place]. documented in this encounterLancaster [facility]09-01-2022 Miscellaneous Notes* Telephone Encounter - Maddison Munoz Ma - 02/21/2022 1:11 PM EDT The patient is scheduled at [facility]. I called and spoke with the patient. Advised her to discuss with radiologist when she arrives. Patient verbalized understanding. * Telephone Encounter - Preeti Narvaez PA-C - 02/21/2022 12:47 PM EDT She has an order for a right intraarticular hip injection in [facility], those procedures are done by radiology. Not sure if we would be able to see the scheduling for that? * Telephone Encounter - Bev Bender LPN - 02/21/2022 12:03 PM EDT Patient called. Verified name and date of . Patient states she has appointment Feb 26, 2022 at 1300 for injection in joint (right hip). No appointment seen in Epic. Pateint states she wants to make sure it is really numb prior to procedure because last one on the left hurt extremely bad. Emma Bender LPN documented in this encounterL[facility]22 Miscellaneous Notes* Telephone Encounter - Jh Villavicencio APRN.CNP - 02/04/2022 1:22 PM EDT The following approved medication requests have been transmitted electronically. Requested Prescriptions Pending Prescriptions Disp Refills dilTIAZem CD (CARTIA XT) 180 mg 24 hr capsule 90 capsule 1 Sig: Take 1 capsule by mouth once daily. buPROPion SR (WELLBUTRIN SR) 150 mg 12 hr tablet 60 tablet 3 Sig: Take 1 tablet by mouth once daily for 7 days, THEN 1 tablet twice daily. Jh Villavicencio APRN.CNP * Telephone Encounter - Fidelia Yanes MA - 02/04/2022 1:18 PM EDT Patient has been identified by name and date of : Yes Requested Prescriptions Pending Prescriptions Disp Refills dilTIAZem CD (CARTIA XT) 180 mg 24 hr capsule 90 capsule 1 Sig: Take 1 capsule by mouth once daily. buPROPion SR (WELLBUTRIN SR) 150 mg 12 hr tablet 60 tablet 3 Sig: Take 1 tablet by mouth once daily for 7 days, THEN 1 tablet twice daily. RX INSTRUCTIONS: Patient aware RX will be sent to pharmacy. No need to notify patient. Fidelia Yanes MA Cheikh: 07/2021 Nov: 02/2022 Last refill: 07/2021 * Telephone Encounter - Quyen Wilson - 02/04/2022 1:09 PM EDT Patient has been identified by name and date of : Yes Requested Prescriptions Pending Prescriptions Disp Refills dilTIAZem CD (CARTIA XT) 180 mg 24 hr capsule 90 capsule 1 Sig: Take 1 capsule by mouth once daily. buPROPion SR (WELLBUTRIN SR) 150 mg 12 hr tablet 60 tablet 3 Sig: Take 1 tablet by mouth once daily for 7 days, THEN 1 tablet twice daily. RX INSTRUCTIONS: Patient aware RX will be sent to pharmacy. No need to notify patient. Quyen Bruce Pss documented in this encounterL[facility]08-04-2022 History of Present illness Narrative* Brain Ivy MD - 01/24/2022 10:47 AM EDTAssociated Order(s): Large Joint Arthro/Inj: R subacromial bursa Post-Procedure Diagnose(s): Chronic right shoulder pain; Impingement syndrome of right shoulder Brain Ivy MD Department of Orthopaedics Orthopaedics [address] [facility] [address] Dept: [phone] Dept January 24, 2022 CHIEF COMPLAINT: Established Patient and Pain of the Left Hip and Last seen 04/19/21 S/P left thumbCMC arthroplasty (with LRTI and left 3rd trigger finger release) HPI Patient states she is having pain in her right lateral hip and radiates into her groin. Her pain isworse when getting into a car and after sitting for a period of time. Taking Tylenol as needed for the pain and does not give her any relief. [facility] done today at [facility]. Patient would like injection today. AMB ROOMING INTAKE FLOWSHEET DATA Risk Screening Do you have concerns about personal safety or safety in the home?: No Pain Pain Level: 8 Pain Location: Hip-Right Description: Aching Duration Amount of Time: 6 Duration Units: Months Frequency: Continuous Intervention/Comfort measure: Medication ASSESSMENT: M25.511, G89.29 Chronic right shoulder pain (primary encounter diagnosis) M75.41 Impingement syndrome of right shoulder M16.11 Primary osteoarthritis of right hip M25.551, G89.29 Chronic pain of right hip PLAN: Patient has a lot going on. We will try cortisone injection for the shoulder today and I will placean order for a hip injection. Ms. Ty Yu was advised as to contrast therapies and/or to take analgesics/anti-inflammatories as needed and all contraindications were reviewed. OBJECTIVE: Ms. Ty Yu is a pleasant 66 year old in no apparent distress. Gen:LMP 05/22/2006 nl development, non obese, no deformities ENT: Normocephalic, normal hearing, moist mucosa CV: Pulses:Radial= 2+ and symmetric, capillary refill < 2 secs, no peripheral edema/varicosities Skin: no rash, bruising or lesions. Good turgor. Psych: cooperative and appropriate, alert and oriented x 3, good mood and affect. Musculoskeletal: Positive impingement signs. Rotator cuff testing intact. Slight limited range of forward elevation of 160 degrees limited by pain, external of 50 degrees, internal to the mid lumbar spine. Hip has flexion of 110 degrees and 20 degrees of internal with some discomfort past 25. Large Joint Arthro/Inj: R subacromial bursa Informed Consent Consent Obtained: Verbal [place] Protocol A moment to CARE was completed. SIGN IN Sign in communication not applicable due to emergent procedure. Personnel directly involved with the procedure wore the appropriate PPE. Special Equipment: N/A Patient/Surrogate Stated/Verified: Patient name, Date of , Relevant allergies and Intended procedure TIME OUT Intended patient and procedure match the source document(s). Consent documented and matches the intended procedure. Relevant labs, photos, and/or imaging studies have been reviewed. Correct side/site marked and visible. Medications required for procedure verified. No fire risk assessment and interventions applicable. No implant(s) inserted. 01/24/2022 11:20 AM The procedure site was prepped in the usual sterile fashion. Site: R subacromial bursa Medications: 6 mg betamethasone acetate-betamethasone sodium phosphate 6 mg/mL Anesthetics: 4 mL lidocaine (PF) 10 mg/mL (1 %) Outcome: Tolerated well, no immediate complications Post-injection instructions were reviewed with the patient and the patient voiced understanding of these instructions. SIGN OUT No specimen collected. All instruments, equipment, possible retained foreign bodies accounted for. Post-procedure follow-up management communicated and Plan of Care Visit completed when applicable Imaging: IMPRESSION: 1. No acute bony process. 2. Mild degenerative change. Vending Machine Attendant: CONCEPCION Transcribe Date/Time: Jan 25 2022 4:21P Dictated by : SUSAN AWAD MD This examination was interpreted and the report reviewed and electronically signed by: SUSAN AWAD MD on Jan 25 2022 4:23PM EST Results-Findings * * *Final Report* * * DATE OF EXAM: Jan 24 2022 10:43AM WRX [id number] - XR HIP 3V PELV+ AP/LAT RT / PROCEDURE REASON: Pain in right hip * * * * Physician Interpretation * * * * EXAMINATION: XR HIP 3V PELV+ AP/LAT RT HISTORY: Worsening right hip pain. Negative trauma. TECHNIQUE: XR HIP 3V PELV+ AP/LAT RT Laterality: RIGHT Number of different views (projections): 3 M: XB_1 COMPARISON: Comparison is made to prior study dated 14 August 2020 and 22 June 2018 RESULT: Supine radiograph of the pelvis as well as AP and frogleg views of the right hip demonstrate the visualized bony pelvic ring intact. The hips are bilaterally symmetric with degenerative change manifest predominantly as mild superolateral joint space narrowing. There is no acute bony process. The soft tissues are unremarkable. Supporting Subjective Information Below: Past Surgical History: PAST SURGICAL HISTORY Procedure Laterality Date 2D ECHO (EXEP) 08/24/2019 EF=65%, mild Freire Dysf, 1+ TI, APPENDECTOMY HX 1975 BREAST BIOPSY 07/30/2018 left vacuum assisted core needle biopsy [facility] COLONOSCOPY FLX DX W/COLLJ SPEC WHEN PFRMD 09/01/2018 Colonoscopy, repeat 10 yrs ESOPHAGOGASTRODUODENOSCOPY TRANSORAL DIAGNOSTIC 09/01/2018 EGD LAPAROSCOPIC HEMICOLECTOMY 2018 due to ruptured diverticulitis, has colostomy LAPAROSCOPY SURG CHOLECYSTECTOMY Cholecystectomy, lap LIG/TRNSXJ FLP TUBE ABDL/VAG APPR UNI/BI Tubal ligation PAST SURGICAL HISTORY OF bladder lift RECONSTRUCTION ROTATOR CUFF AVULSION CHRONIC Left 08/08/2017 Left shoulder arthroscopy, Open RCR and SAD STENT PLACEMENT 05/06/2013 LAD STRESS TEST 07/28/2017 normal TOTAL ABDOMINAL HYSTERECT W/WO RMVL TUBE OVARY Hysterectomy, LESA Medications: Current Outpatient Medications Medication Sig Fenofibrate (LOFIBRA) 54 mg tablet Take 1 tablet by mouth once daily. ezetimibe (ZETIA) 10 mg tablet Take 1 tablet by mouth once daily. fluticasone (FLONASE) 50 mcg/actuation nasal spray Use 1 Phoenix in each nostril once daily. Rinse mouth after use. EPINEPHrine (EPIPEN 2-ESTEFANIA) 0.3 mg/0.3 mL auto-injector Inject 0.3 mL intramuscularly as needed. cyclobenzaprine (FLEXERIL) 10 mg tablet From neuro pantoprazole (PROTONIX) 40 mg tablet Take 1 tablet by mouth once daily. atorvastatin (LIPITOR) 80 mg tablet Take 1 tablet by mouth daily at bedtime. For cholesterol. blood sugar diagnostic (BLOOD GLUCOSE TEST) test strip Test blood sugar(s) 1 times daily. Dx: E11.9Insulin: No dilTIAZem CD (CARTIA XT) 180 mg 24 hr capsule Take 1 capsule by mouth once daily. doxepin capsule 75 mg Take 1 capsule by mouth daily at bedtime. Per Neuro Dr. Partida Galantamine Hydrobromide (RAZADYNE) 16 mg 24 hr capsule Take 1 capsule by mouth daily with breakfast. Per Neuro Dr. Partida escitalopram oxalate (LEXAPRO) 20 mg tablet Take 20 mg by mouth once daily. memantine (NAMENDA) 5 mg tablet Take 5 mg by mouth twice daily. POTASSIUM ORAL Take by mouth as directed. cholecalciferol, vitamin D3, (VITAMIN D3 ORAL) Take by mouth once daily. MAGNESIUM ORAL Take by mouth. Ferrous Sulfate (SLOW FE) 142 mg (45 mg iron) TbER Take 1 tablet by mouth once daily. nitroglycerin sublingual (NITROSTAT) 0.4 mg SL tablet Dissolve 1 tablet under the tongue every 5 minutes as needed for Chest Pain. Lancets lancets Test blood sugar(s) 1 times daily. Dx: Other DM Code E11.9, Insulin: No aspirin, enteric coated (ADULT LOW DOSE ASPIRIN) 81 mg EC tablet Take 1 tablet by mouth once daily. mirtazapine (REMERON) 30 mg tablet Take 1 tablet by mouth daily at bedtime. (Patient not taking: Reported on 01/24/2022 ) scopolamine (TRANSDERM-SCOP) patch 1.5 mg/72 hr (delivers 1 mg over 3 days) Apply 1 Patch as directed every 72 hours. (Patient not taking: Reported on 01/24/2022 ) buPROPion SR (WELLBUTRIN SR) 150 mg 12 hr tablet Take 1 tablet by mouth once daily for 7 days, THEN1 tablet twice daily. sucralfate (CARAFATE) 1 gram tablet Take 1 tablet by mouth three times daily as needed. Melatonin 5 mg cap Take 2 capsules by mouth daily at bedtime. (Patient not taking: Reported on 01/15/2021 ) LACTOBACILLUS ACIDOPHILUS (PROBIOTIC ORAL) Take 1 tablet by mouth twice daily. No current facility-administered medications for this visit. Allergies: Bees, Lipitor [Atorvastatin Calcium], Phenergan [Promethazine Hcl], Pravastatin, Ewtiwsk-Vsl-Ofe Reductase Inhibitors, and Trazodone ROS: General (negative for fatigue, malaise, weight loss/gain) HEENT (negative for headache, earache, recent vision changes, sinus pain, sore throat) Respiratory (no recent shortness of breath, hemoptysis) CV (negative for chest tightness, palpitations) Musculoskeletal (see HPI) Psych (no depression, anxiety) Brain Ivy MD documented in this encounterL[facility]08-04-2022 History of Present illness Narrative* RT Naga(R) - 01/24/2022 10:30 AM EDT Radiology Service Progress Note PATIENT NAME: Ty Yu DATE OF SERVICE: January 24, 2022 TIME: 10:29 AM PATIENT IDENTITY VERIFICATION COMPLETED USING TWO (2) IDENTIFIERS: Name and Date of confirmedby patient verbally. FALL SCREENING: Has the patient had 2 falls in the last year or 1 fall with injury or currently using an Ambulatory Assistive Device (Walker, Cane, Wheelchair, Crutches, etc.)? No PATIENT GENDER DATA: Female. status: : No status: NO. PATIENT RELEVANT IMPLANT DATA REVIEWED: Not Applicable RADIOLOGY DEPARTMENT: General X-ray: Exam(s) Completed: Pelvis X-Ray: Pelvis with Hip Right PERIPHERAL IV DATA: Not applicable SIGNED BY: RT Naga(R) January 24, 2022 10:29 AM documented in this encounterL[facility]08-03-2022 History of Present illness Narrative* Jaydon Jeffers RN - 01/23/2022 10:23 AM EDT [facility] CDM Engagement Provider Action/FYI: Call to Pt left a message related to Insight Monitoring Questionnaire, provided location reminder. Contact Made with Patient: No, first attempt, left message. Memo Yu. This is Aury Interiano, CAROLIN your Base Filler [facility] the [facility]. I am calling to check in with you concerning the MyChart questionnaire you have been receiving from me. I will call you again and am looking forward to speaking with you. (Base Filler enters next day in next patient outreach) Aury Interiano RN January 23, 2022 10:23 AM documented in this encounterL[facility]07-15-2022 Miscellaneous Notes* Telephone Encounter - Fidelia Yanes MA - 01/04/2022 4:32 PM EDT Patient notified and voiced understanding. Fidelia Yanes MA * Telephone Encounter - Fidelia Yanes MA - 01/02/2022 8:15 PM EDT Left message for patient to contact office. Please make sure patient understands to make no medication changes or adjustments without speaking with her doctor first. Fidelia Yanes MA * Telephone Encounter - Magan Amador MD - 01/02/2022 8:02 PM EDT Advise patient I increased the mirtazapine dose to 30 mg before bed. Advise her in the future not to make any adjustments in her meds on her own. The following approved medication requests have been transmitted electronically. Signed Prescriptions Disp Refills mirtazapine (REMERON) 30 mg tablet 90 tablet 0 Sig: Take 1 tablet by mouth daily at bedtime. HEATHER: No Authorizing Provider: MAGAN AMADOR MD * Telephone Encounter - Carmelita Naik LPN - 01/02/2022 3:45 PM EDT Pt calling to report Rx refill for mirtazapine was sent to the pharmacy 12/31/21 but she is being told by the pharmacy that she will not be due for refill until Feb. After talking to pt she revealed that she does take 2 tabs at hs instead of one at least 2X weekly. Explained to pt that is why she is out of med already. Pt asking if strength of med can be increased? Or if she can have a new Rx stating she can take 2 tabs at hs? Please advise. Carmelita Naik LPN documented in this encounterL[facility]07-12-2022 Miscellaneous Notes* Telephone Encounter - Ibeth Nelson LPN - 01/01/2022 4:39 PM EDT Patient returned call, scheduled Medicare Wellness for 03/19/2022. Ibeth Nelson LPN * Telephone Encounter - Tonie Turpin LPN - 01/01/2022 9:52 AM EDT Left message for pt to contact office. Tonie Turpin LPN * Telephone Encounter - Magan Amador MD - 12/31/2021 5:42 PM EDT Patient needs to reschedule her extensive/medicare exam that wa cancelled for either January or Feb. The following approved medication requests have been transmitted electronically. Signed Prescriptions Disp Refills Fenofibrate (LOFIBRA) 54 mg tablet 30 tablet 1 Sig: Take 1 tablet by mouth once daily. HEATHER: No Authorizing Provider: MAGAN AMADOR mirtazapine (REMERON) 15 mg tablet 90 tablet 0 Sig: Take 1 tablet by mouth daily at bedtime. HEATHER: No Authorizing Provider: MAGAN AMADOR ezetimibe (ZETIA) 10 mg tablet 30 tablet 1 Sig: Take 1 tablet by mouth once daily. HEATHER: No Authorizing Provider: MAGAN AMADOR MD * Telephone Encounter - Fidelia Yanes MA - 12/31/2021 5:06 PM EDT Patient has been identified by name and date of : Yes Pending Prescriptions Disp Refills FENOFIBRATE 54 MG TABLET 30 tablet 5 Sig: Take 1 tablet by mouth once daily. HEATHER: No MIRTAZAPINE 15 MG TABLET 90 tablet 1 Sig: Take 1 tablet by mouth daily at bedtime. HEATHER: No EZETIMIBE 10 MG TABLET 30 tablet 5 Sig: Take 1 tablet by mouth once daily. HEATHER: No RX INSTRUCTIONS: Patient aware RX will be sent to pharmacy. No need to notify patient. Fidelia Yanes MA Cheikh: 07/2021 No appointment scheduled Last refill; 07/2021 * Telephone Encounter - Lashae Wilson - 12/31/2021 4:59 PM EDT Patient has been identified by name and date of : Yes Pending Prescriptions Disp Refills FENOFIBRATE 54 MG TABLET 30 tablet 5 Sig: Take 1 tablet by mouth once daily. HEATHER: No MIRTAZAPINE 15 MG TABLET 90 tablet 1 Sig: Take 1 tablet by mouth daily at bedtime. HEATHER: No EZETIMIBE 10 MG TABLET 30 tablet 5 Sig: Take 1 tablet by mouth once daily. HEATHER: No RX INSTRUCTIONS: Patient aware RX will be sent to pharmacy. No need to notify patient. Lashae Hoffmann Pss documented in this encounterL[facility]07-08-2022 Miscellaneous Notes* Telephone Encounter - Tonie Turpin LPN - 12/28/2021 10:57 AM EDT CHEIKH 08/02/21 NOV 01/22/22 Tonie Turpin LPN * Telephone Encounter - Monalisa Vega - 12/28/2021 10:51 AM EDT Patient has been identified by name and date of : Yes Pending Prescriptions Disp Refills SCOPOLAMINE 1 MG OVER 3 DAYS TRANSDERMAL PATCH 2 Patch 2 Sig: Apply 1 Patch as directed every 72 hours. HEATHER: No RX INSTRUCTIONS: Patient aware RX will be sent to pharmacy. No need to notify patient. Monalisa Vega documented in this encounterL[facility]06-30-2022 History of Present illness Narrative* Jaydon Jeffers RN - 12/20/2021 2:29 PM EDT [facility] CDM Engagement Provider Action/FYI: Call to Pt left a message to verify CKD or other symptom status and needs. Contact Made with Patient: No, first attempt, left message. Memo Yu. This is Aury Interiano RN your Base Filler [facility]. I am calling to check in with you concerning the MyChart questionnaire you have been receiving from me. I will call you again tomorrow and am looking forward to speaking with you. (Base Filler enters next day in next patient outreach) Aury Interiano RN December 20, 2021 2:29 PM documented in this encounterLanc[facility]06-24-2022 History of Present illness Narrative* Jaydon Jeffers RN - 12/14/2021 11:23 AM EDT [facility] CDM Engagement Provider Action/FYI: Call to Pt, left a message to verify CKD or other symptoms or needs. Insight questionnaire reminder location provided. Contact Made with Patient: No, second attempt, left message. Memo Yu. This is Aury Interiano RN your Base Filler [facility]. I am calling to check in with you concerning the MyChart questionnaire you have been receiving from me. I will call you again next week and am looking forward to speaking with you. (Care Coordinatorenters next week's date in next patient outreach) Aury Interiano RN December 14, 2021 11:23 AM * Jaydon Jeffers RN - 12/13/2021 2:15 PM EDT [facility] CDM Engagement Provider Action/FYI: Call to Pt, to verify CKD or other symptoms or needs, no answer, unable to leave a message. Contact Made with Patient: No, first attempt, left message. Memo Yu. This is Aury Interiano RN your Base Filler [facility] the [facility]. I am calling to check in with you concerning the MyChart questionnaire you have been receiving from me. I will call you again tomorrow and am looking forward to speaking with you. (Base Filler enters next day in next patient outreach) Aury Interiano RN December 13, 2021 2:15 PM documented in this encounterLanc[facility]05-21-2022 Miscellaneous Notes* Telephone Encounter - Magan Amador MD - 11/10/2021 10:47 PM EDT The following approved medication requests have been transmitted electronically. Signed Prescriptions Disp Refills mirtazapine (REMERON) 15 mg tablet 90 tablet 1 Sig: Take 1 tablet by mouth daily at bedtime. HEATHER: No Authorizing Provider: MAGAN AMADOR MD * Telephone Encounter - Angelique Grimes RN - 11/09/2021 3:16 PM EDT Patient has been identified by name and date of : Yes Patient phones for refill(s): Pending Prescriptions Disp Refills MIRTAZAPINE 15 MG TABLET 90 tablet 1 Sig: Take 1 tablet by mouth daily at bedtime. HEATHER: No Date of last office visit in primary care: 08/02/2021 Last 2 Encounter Wt Readings: Date: Wt: 08/02/2021 79.8 kg (176 lb) 02/12/2021 73 kg (161 lb) Previous labs/tests for medication: Blood Pressure: BUN (mg/dL) Date Value 02/12/2021 13 Sodium (mmol/L) Date Value 02/12/2021 140 Last 1 Encounter BP Readings: Date: BP: 08/02/2021 116/72 Liver Function: ALT (U/L) Date Value 06/01/2020 14 AST (U/L) Date Value 06/01/2020 22 Please advise. Thank you. Angelique Grimes RN documented in this encounterLanc[facility] Hospital05-18-2022 Miscellaneous Notes* Telephone Encounter - Carmelita Naik LPN - 11/07/2021 8:57 AM EDT Pt returned the call & was notified of pcp's message, pt states understanding. Carmelita Naik LPN * Telephone Encounter - Tonie Turpin LPN - 11/07/2021 8:35 AM EDT Left message for pt to contact office. Tonie Turpin LPN * Telephone Encounter - Magan Amador MD - 11/06/2021 1:36 PM EDT Please advise patient that based on my records and specialty office notes she has been seeing Dr. Partida for her insomnia and needs to contact his office. * Telephone Encounter - Tonie Turpin LPN - 11/06/2021 11:31 AM EDT Spoke with pt. States the remeron doesn't make her sleepy. States she takes it 1.5-2 hrs before bedbut ends up reading until she gets sleepy. She wakes up 1- 1.5 hrs after falling asleep. Feels it isnot helping her. Advised pt she would be contacted afer review by Dr Amador. Tonie Turpin LPN * Telephone Encounter - Magan Amador MD - 11/05/2021 5:23 PM EDT Please return patient's call and ask if she can she be more specific as to what she feels the Remeron is not helping with? * Telephone Encounter - Monalisa Velázquezbrianna - 11/05/2021 1:55 PM EDT Patient has been identified by name and date of : Yes Pending Prescriptions Disp Refills MIRTAZAPINE 15 MG TABLET 90 tablet 1 Sig: Take 1 tablet by mouth daily at bedtime. HEATHER: No Patient asking if she can either have dosage increased as the medication is not working for her. CHEIKH-08/02/21 Labs-08/02/21 NOV-01/22/22 med filled 05/31/21 RX INSTRUCTIONS: Patient aware RX will be sent to pharmacy. No need to notify patient. Monalisa Silvia documented in this encounterLanc[facility]05-04-2022 History of Present illness Narrative* Jaydon Jeffers RN - 10/24/2021 12:33 PM EDT [facility] CDM Engagement Provider Action/FYI: Spk with Pt who denies new or worsening CKD or other symptoms, eating and hydrating well. BP 138/83 Instructed on Insight Monitoring updates and location. Contact Made with Patient: Yes Patient identified by name and . Discussed care with patient Memo hancock name is Aury Interiano RN your Base Filler from Magan Amador MD office at [facility]. I am reaching out today because I noticed it has been a few weeks since I have seen any responses from you on your questionnaire. I wanted to check on you and make sure you are doing well, and to remind you that your Magan Amador MD recommended this program for you so that you can stay better connected to your health. I will be monitoring your responses on the questionnaire to make sure we are not seeing any changes in your health that your Primary Care Physician needs to know about, or looking for improvements and keeping Magan Amador MD informed about it all. You Kirk will check in together anytime a problem arises, and determine a solution. I am here to help you stay healthy, and stay connected to your doctor's office. How can I help you in this program? The patient informs that she forgot. Please take some time today to answer the questionnaire. I am looking forward to receiving your answers. If I do not receive your answers in the next 2 business days I will check back in. ---END CALL Aury Interiano RN October 24, 2021 12:33 PM documented in this encounterLancaster [facility] Hospital04-29-2022 Miscellaneous Notes* Telephone Encounter - Rosemary Mcnair RN - 10/19/2021 4:13 PM EDT Patient has been identified by name and date of : Yes Patient phones for refill(s): Pending Prescriptions Disp Refills FLUTICASONE PROPIONATE 50 MCG/ACTUATION NASAL SPRAY,SUSPENSION Sig: Use 1 Phoenix in each nostril once daily. Rinse mouth after use. HEATHER: No EPINEPHRINE 0.3 MG/0.3 ML INJECTION, AUTO-INJECTOR 2 Each Sig: Inject 0.3 mL intramuscularly as needed. HEATHER: No Date of last office visit in primary care: 08/02/21, NOV: 01/22/22 Last 2 Encounter Wt Readings: Date: Wt: 08/02/2021 79.8 kg (176 lb) 02/12/2021 73 kg (161 lb) Please advise. Thank you. Rosemary Mcnair RN documented in this encounterLancaster [facility] Hospital04-29-2022 History of Present illness Narrative* Jaydon Jeffers RN - 10/19/2021 2:35 PM EDT [facility] CDM Engagement Provider Action/FYI: Call to Pt left a message to verify CKD or other symptoms or needs. Provided Insight Monitoring questionnaire location. Contact Made with Patient: No, first attempt, left message. Memo Yu. This is Aury Interiano RN your Base Filler [facility]. I am calling to check in with you concerning the [employer] questionnaire you have been receiving from me. I will call you again and am looking forward to speaking with you. (Base Filler enters next day in next patient outreach) Aury Interiano RN October 19, 2021 2:36 PM [facility] History of Present illness Narrative* Jaydon Jeffers RN - 09/21/2021 12:45 PM EDT [facility] Enroll[facility] Provider Action/FYI: Spk with Pt who is in agreement with [facility] via smart phone. Pt denies falls or ambulatory DME., Pt belongs to [employer] and plans to be more active and fit. Patient referred by: [facility] Laurie Contact made with patient: Yes - Patient identified by name and . Discussed care with patient Memo this is Aury Interiano RN and I am calling from Magan Amador MD office at the [facility]. I am a RN Base Filler with our [facility] program. Magan Amador MD wanted me to reach out to help you manage your health at home. Our goal is to keep you wellat home. We want to help you manage your chronic disease by providing a safety net of resources around you, getting you the care you need in a timely manner, and hopefully keep you out of the ED and hospital. I will send you a few questions once a week through your [employer] account. It will automatically show up for you to complete. There are simple questions that will help us identify if you have any concerns or symptoms and I will call you to help get what you need. We will be able to connect you, review your symptoms, do an on demand visit, or communicate with Magan Amador MD if needed. I am going to sign you up for the program now. Enrollment Questions: Let's get you enrolled in the program. Yes, Do you have regular access to a computer/smartphone? Yes. Goal Setting: I would like to take some time today to discuss your personal health goals. Yes, patient has goals. Capture the goal the patient wants to accomplish: To be more fit. Does the goal align with programs offered at the [facility]? No Patient accepts respiratory care instructor Thank you for your time today. I am excited to work together in managing your health! You will receive information on next steps through your [employer] account, and I will check back within a few weeks to ensure you have all that you need to use the program successfully. (Place name in care team and assign [employer] Remelter questionnaire) Most people know what to do to become healthier, yet struggle to put it into action on their own.Itcan be hard to maintain a healthy lifestyle, especially when life is so stressful. Can we connect you with a [facility] Health Harvesting Contractor to find a program that could help you meet your goals? No Closing: Patient accepts respiratory care instructor Thank you for your time today. I am excited to work together in managing your health! You will receive information on next steps through your [employer] account, and I will check back within a few weeks to ensure you have all that you need to use the program successfully. (Place name in care team and assign [employer] Remelter questionnaire) Aury Interiano RN September 21, 2021 12:45 PM documented in [facility] Miscellaneous Notes* Telephone Encounter - Tonie Turpin LPN - 09/13/2021 8:14 AM EDT Info faxed back as requested. Tonie Turpin LPN * Telephone Encounter - Heaven Garg PA-C - 09/13/2021 7:44 AM EDT signed * Telephone Encounter - Tonie Turpin LPN - 09/13/2021 7:08 AM EDT Received fax from [facility] stating Medicare and Medicaid are doing a Probe audit at their pharm. They are requesting last ov notes, testing logs, and A1c results. Need ov notes to be signed by provider. Fax back to [phone] or [phone] Info on you desk for signature. Tonie Turpin LPN documented in this [facility]09-[facility]21 NoteHNO ID: [id number] Author: Angelina Hollis APRN.WHIPPED TOPPING SUPERVISOR Service: Anesthesiology Author Type: Nurse Commercial Pest Control Representative Type: Anesthesia Procedure Notes Filed: 02/21/2021 10:34 AM Note Text: ANESTHESIOLOGY PROCEDURE NOTE Airway General Information Procedure Start Time/Medication Administration: 02/21/2021 10:25 AM Patient location during procedure: OR Timeout Performed Pre-procedure: timeout performed Consent Obtained: Yes Patient identity confirmed: arm band, care juice bar team member and patient Staffing WHIPPED TOPPING SUPERVISOR: Angelina Hollis APRN.WHIPPED TOPPING SUPERVISOR Performed by: WHIPPED TOPPING SUPERVISOR Indications and Patient Condition Preoxygenated: yes Indications for airway management: anesthesia anesthesia circuit Method: asleep Final Airway Details Final airway type: supraglottic airway Number of attempts at approach: 1 Final Supraglottic Airway: i-gel Size 3 Seal Adequate: yes SIGNATURE: Angelina Hollis APRN.WHIPPED TOPPING SUPERVISOR PATIENT NAME: Ty Yu DATE: February 21, 2021 TIME: 10:33 AM CSN: [id number] NoteHNO ID: [id number] Author: Jojo Carlson MD Service: Anesthesiology Author Type: Anesthesiologist Type: Anesthesia Procedure Notes Filed: 02/21/2021 10:17 AM Note Text: ANESTHESIOLOGY PROCEDURE NOTE Peripheral Nerve Block General Information Procedure Start Time/Medication Administration: 02/21/2021 10:01 AM Procedure End time: 02/21/2021 10:13 AM Patient location during procedure: pre-op Timeout Performed Pre-procedure: timeout performed Consent Obtained: Yes Patient identity confirmed: arm band Reason for block: post-op pain management/at surgeon's request Staffing Anesthesiologist: Jojo Carlson MD Performed by: anesthesiologist Preparation Sterility Preparation: hand hygiene performed prior to procedure, surgical cap used, mask used, sterile drape used during line insertion, skin prep agent completely dried prior to procedure Site Prep: Chloraprep Pre-Procedure Neuro Exam Location: LUE Sensory: intact Motor: intact Procedure Details Patient Position: supine Monitoring: Pulse OX, EKG and NIBP Block Type Upper Extremity: brachial plexus Approach: axillary Laterality: left Injection Technique: single-shot Ultrasound Guided: Yes Image in Chart: yes Local Infiltration: Yes Needle Needle Type: echogenic Needle Gauge: 22 G Needle Length: 51 mm Needle Localization: ultrasound Assessment Injection assessment: negative aspiration, no paresthesia on injection, incremental injection and local visualized surrounding nerve on ultrasound Post-Procedure Neuro Exam Expected Regional Anesthesia: Yes Medications Administered Dexamethasone sodium phosphate injection (DECADRON), 4 mg Lidocaine HCl(PF) 20 mg/mL (2 %) injection, 5 mL ropivacaine (PF) 5 mg/mL (0.5 %) injection (NAROPIN), 30 mL SIGNATURE: Jojo Carlson MD PATIENT NAME: Ty Yu DATE: February 21, 2021 TIME: 10:15 AM CSN: [id number] NoteHNO ID: [id number] Author: Malgorzata Stark, PhD Service: ? Author Type: Psychologist Type: Progress Notes Filed: 11/10/2020 12:27 PM Note Text: Patient: Ty Yu : 1955 Referred By: Leo Junior BRAND PROTECTION MANAGER, BRAND PROTECTION MANAGER-C Dates of Service: 11/06/2020 AND 11/10/2020 Reason for Referral: assessment of neurocognitive functions due to diagnosis of unspecified dementia with behavioral disturbance Tests Administered: González Adult Intelligence Scale, fourth edition, (WAIS-IV) González Memory Scale-IV (WMS-IV) Older Adult Battery, Elo Bonilla Executive Function System (DKEFS) [place] Making AND Verbal Fluency subtests, [place] Naming Test, second edition (BNT-2), [place] Card Sorting Test (WCST), [place] Grooved Pegboard Test (Pegs), PHQ-9, LOR-7, History Taking AND Clinical Interview with Ty. Test Findings: Note: Where possible, the raw data have been compared with currently available norms which may include demographic corrections for age, gender, and/or education. See attached data summary sheet for individual scores. Current Medications: donepezil 5 mg, sertraline 100 mg, clopidogrel 75 mg, atorvastatin 80 mg, ropinirole 2 mg at hs, ondansetron 4 mg prn, furosemide 20 mg, hydroxyzine HCl 25 mg prn, ezetimibe 10 mg Past Medical History: cardiovascular disease with stent placement, resection of part of colon with colostomy, diabetes, hypertension, restless leg syndrome Activities of Daily Living: Pt. ADLs: reports independent Pt. IADLs: reports independent Pt. 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 Her daughter provided transportation to the office. Follow up visit was completed with Ty and her daughter via telehealth due to the covid pandemic. She was appropriately groomed and casually dressed and ambulated independently in the office setting without the assistance of a device. Speech was of normal rate, rhythm, and prosody with no evidence of aphasia or dysarthria in conversation. Thought processes were logical, coherent, and goal-directed, with no evidence of hallucinations or delusions. Mood was mildly anxious with congruent affect. Ty denied any current or recent suicidal or homicidal ideation or intent. Hearing and vision were grossly within normal limits. Upper extremity fine motor skills were grossly intact, with no evidence of tremor or ataxia. Ty was noted to stand at times during the appointment, sharing that her restless legs were bothering her. Motivation and effort were adequate, indicating the current assessment is an accurate reflection of her abilities at this time. History of Current Complaint: Ty reported that she has fallen several times over the past year and when asked to clarify the number of times she fell she reported there had been four total. She was hospitalized for approximately three months one year ago due to gastrointestinal concerns. Ty had been experiencing difficulties with constipation and was prescribed Linzess. She stated that the medication was not effective and she was instructed to increase the dose. Ty was seen for a routine visit by her primary care physician and her son was instructed to take her to the emergency department immediately due to concerns of possible stroke. Ty?s son transported her to [facility] where she underwent an emergency surgery to remove part of her colon. She required a second surgery the next day due to complications. Ty stated that after the surgery they had to ?shock her,? suggesting she had experienced cardiac arrest. During the follow up visit she was able to clarify that she had been experiencing atrial fib following the surgery which was the reason for ?shocking? her. Ty reported that this hospitalization occurred in July,. She described what appeared to be delirium during the course of her recovery, stating she was actively hallucinating and was confused. She completed inpatient acute rehabilitation through the same hospital as part of her three month stay. Ty stated she was en (more content not included)...[facility]05-[facility] NoteHNO ID: [id number] Author: Malgorzata Stark, PhD Service: ? Author Type: Psychologist Type: Progress Notes Filed: 11/07/2020 3:22 PM Note Text: Patient seen for neuropsychological testing. Report to follow.[facility]01-[facility] History of Past illness Narrative* Problem Noted Date Resolved Date Colon cancer screening 07/14/2018 0 Encounter for screening mammogram for breast can cer 12/29/2017 07/19/2019 Well adult exam 06/26/2017 07/19/2019 Overview: last done: 07/14/2018 Encounter for screening for diabetes mellitus 07/28/2017 Multiple falls 01/08/2016 07/28/2017 Right hip pain 11/07/2014 07/19/2019 Anxiety 07/05/2013 07/19/2019 SUMMARY 05/04/2013 07/28/2017 Overview: 57y/o with history of chest pain, stress test 11-6 + for EKG changes, scan no infarct or ischemia, 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 She is awaiting decision on treatment options. After discussion with Dr Lindsey and her family, she prefers to have PCI, this is scheduled for this am, 1114 documented as of this encounter (statuses as of 09/13/2021) [facility] History of Past illness Narrative* Problem Noted Date Resolved Date Colon cancer screening 07/14/2018 0 Encounter for screening mammogram for breast can cer 12/29/2017 07/19/2019 Well adult exam 06/26/2017 07/19/2019 Overview: last done: 07/14/2018 Encounter for screening for diabetes mellitus 07/28/2017 Multiple falls 01/08/2016 07/28/2017 Right hip pain 11/07/2014 07/19/2019 Anxiety 07/05/2013 07/19/2019 SUMMARY 05/04/2013 07/28/2017 Overview: 57y/o with history of chest pain, stress test 11-6 + for EKG changes, scan no infarct or ischemia, 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 She is awaiting decision on treatment options. After discussion with Dr Lindsey and her family, she prefers to have PCI, this is scheduled for this am, 1114 documented as of this encounter (statuses as of 09/21/2021) [facility] of Past illness Narrative* Problem Noted Date Resolved Date Colon cancer screening 07/14/2018 0 Encounter for screening mammogram for breast can cer 12/29/2017 07/19/2019 Well adult exam 06/26/2017 07/19/2019 Overview: last done: 07/14/2018 Encounter for screening for diabetes mellitus 07/28/2017 Multiple falls 01/08/2016 07/28/2017 Right hip pain 11/07/2014 07/19/2019 Anxiety 07/05/2013 07/19/2019 SUMMARY 05/04/2013 07/28/2017 Overview: 57y/o with history of chest pain, stress test 11-6 + for EKG changes, scan no infarct or ischemia, 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 She is awaiting decision on treatment options. After discussion with Dr Lindsey and her family, she prefers to have PCI, this is scheduled for this am, 11-14 documented as of this encounter (statuses as of 10/19/2021) [facility] of Past illness Narrative* Problem Noted Date Resolved Date Colon cancer screening 07/14/2018 0 Encounter for screening mammogram for breast can cer 12/29/2017 07/19/2019 Well adult exam 06/26/2017 07/19/2019 Overview: last done: 07/14/2018 Encounter for screening for diabetes mellitus 07/28/2017 Multiple falls 01/08/2016 07/28/2017 Right hip pain 11/07/2014 07/19/2019 Anxiety 07/05/2013 07/19/2019 SUMMARY 05/04/2013 07/28/2017 Overview: 57y/o with history of chest pain, stress test 11-6 + for EKG changes, scan no infarct or ischemia, 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 She is awaiting decision on treatment options. After discussion with Dr Lindsey and her family, she prefers to have PCI, this is scheduled for this am, 05-06 documented as of this encounter (statuses as of 10/19/2021) [facility] of Past illness Narrative* Problem Noted Date Resolved Date Colon cancer screening 07/14/2018 0 Encounter for screening mammogram for breast can cer 12/29/2017 07/19/2019 Well adult exam 06/26/2017 07/19/2019 Overview: last done: 07/14/2018 Encounter for screening for diabetes mellitus 07/28/2017 Multiple falls 01/08/2016 07/28/2017 Right hip pain 11/07/2014 07/19/2019 Anxiety 07/05/2013 07/19/2019 SUMMARY 05/04/2013 07/28/2017 Overview: 57y/o with history of chest pain, stress test 11-6 + for EKG changes, scan no infarct or ischemia, 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 She is awaiting decision on treatment options. After discussion with Dr Lindsey and her family, she prefers to have PCI, this is scheduled for this am, 1114 documented as of this encounter (statuses as of 10/24/2021) [facility] of Past illness Narrative* Problem Noted Date Resolved Date Colon cancer screening 07/14/2018 0 Encounter for screening mammogram for breast can cer 12/29/2017 07/19/2019 Well adult exam 06/26/2017 07/19/2019 Overview: last done: 07/14/2018 Encounter for screening for diabetes mellitus 07/28/2017 Multiple falls 01/08/2016 07/28/2017 Right hip pain 11/07/2014 07/19/2019 Anxiety 07/05/2013 07/19/2019 SUMMARY 05/04/2013 07/28/2017 Overview: 57y/o with history of chest pain, stress test 11-6 + for EKG changes, scan no infarct or ischemia, 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 She is awaiting decision on treatment options. After discussion with Dr Lindsey and her family, she prefers to have PCI, this is scheduled for this am, 1114 documented as of this encounter (statuses as of 11/07/2021) [facility] of [facility] illness Narrative* Problem Noted Date Resolved Date Colon cancer screening 07/14/2018 0 Encounter for screening mammogram for breast can cer 12/29/2017 07/19/2019 Well adult exam 06/26/2017 07/19/2019 Overview: last done: 07/14/2018 Encounter for screening for diabetes mellitus 07/28/2017 Multiple falls 01/08/2016 07/28/2017 Right hip pain 11/07/2014 07/19/2019 Anxiety 07/05/2013 07/19/2019 SUMMARY 05/04/2013 07/28/2017 Overview: 57y/o with history of chest pain, stress test 11-6 + for EKG changes, scan no infarct or ischemia, 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 She is awaiting decision on treatment options. After discussion with Dr Lindsey and her family, she prefers to have PCI, this is scheduled for this am, 05-06 documented as of this encounter (statuses as of 11/11/2021) [facility] of [facility] illness Narrative* Problem Noted Date Resolved Date Colon cancer screening 07/14/2018 0 Encounter for screening mammogram for breast can cer 12/29/2017 07/19/2019 Well adult exam 06/26/2017 07/19/2019 Overview: last done: 07/14/2018 Encounter for screening for diabetes mellitus 07/28/2017 Multiple falls 01/08/2016 07/28/2017 Right hip pain 11/07/2014 07/19/2019 Anxiety 07/05/2013 07/19/2019 SUMMARY 05/04/2013 07/28/2017 Overview: 57y/o with history of chest pain, stress test 11-6 + for EKG changes, scan no infarct or ischemia, 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 She is awaiting decision on treatment options. After discussion with Dr Lindsey and her family, she prefers to have PCI, this is scheduled for this am, 05-06 documented as of this encounter (statuses as of 12/14/2021) [facility] of Past illness Narrative* Problem Noted Date Resolved Date Colon cancer screening 07/14/2018 0 Encounter for screening mammogram for breast can cer 12/29/2017 07/19/2019 Well adult exam 06/26/2017 07/19/2019 Overview: last done: 07/14/2018 Encounter for screening for diabetes mellitus 07/28/2017 Multiple falls 01/08/2016 07/28/2017 Right hip pain 11/07/2014 07/19/2019 Anxiety 07/05/2013 07/19/2019 SUMMARY 05/04/2013 07/28/2017 Overview: 57y/o with history of chest pain, stress test 11-6 + for EKG changes, scan no infarct or ischemia, 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 She is awaiting decision on treatment options. After discussion with Dr Lindsey and her family, she prefers to have PCI, this is scheduled for this am, 1114 documented as of this encounter (statuses as of 12/20/2021) [facility] of Past illness Narrative* Problem Noted Date Resolved Date Colon cancer screening 07/14/2018 0 Encounter for screening mammogram for breast can cer 12/29/2017 07/19/2019 Well adult exam 06/26/2017 07/19/2019 Overview: last done: 07/14/2018 Encounter for screening for diabetes mellitus 07/28/2017 Multiple falls 01/08/2016 07/28/2017 Right hip pain 11/07/2014 07/19/2019 Anxiety 07/05/2013 07/19/2019 SUMMARY 05/04/2013 07/28/2017 Overview: 57y/o with history of chest pain, stress test 11-6 + for EKG changes, scan no infarct or ischemia, 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 She is awaiting decision on treatment options. After discussion with Dr Lindsey and her family, she prefers to have PCI, this is scheduled for this am, 14 documented as of this encounter (statuses as of 12/24/2021) [facility] of Past illness Narrative* Problem Noted Date Resolved Date Colon cancer screening 07/14/2018 0 Encounter for screening mammogram for breast can cer 12/29/2017 07/19/2019 Well adult exam 06/26/2017 07/19/2019 Overview: last done: 07/14/2018 Encounter for screening for diabetes mellitus 07/28/2017 Multiple falls 01/08/2016 07/28/2017 Right hip pain 11/07/2014 07/19/2019 Anxiety 07/05/2013 07/19/2019 SUMMARY 05/04/2013 07/28/2017 Overview: 57y/o with history of chest pain, stress test 11-6 + for EKG changes, scan no infarct or ischemia, 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 She is awaiting decision on treatment options. After discussion with Dr Lnidsey and her family, she prefers to have PCI, this is scheduled for this am, 14 documented as of this encounter (statuses as of 12/28/2021) [facility] of Past illness Narrative* Problem Noted Date Resolved Date Colon cancer screening 07/14/2018 0 Encounter for screening mammogram for breast can cer 12/29/2017 07/19/2019 Well adult exam 06/26/2017 07/19/2019 Overview: last done: 07/14/2018 Encounter for screening for diabetes mellitus 07/28/2017 Multiple falls 01/08/2016 07/28/2017 Right hip pain 11/07/2014 07/19/2019 Anxiety 07/05/2013 07/19/2019 SUMMARY 05/04/2013 07/28/2017 Overview: 57y/o with history of chest pain, stress test 11-6 + for EKG changes, scan no infarct or ischemia, 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 She is awaiting decision on treatment options. After discussion with Dr Lindsey and her family, she prefers to have PCI, this is scheduled for this am, 14 documented as of this encounter (statuses as of 01/01/2022) [facility] of Past illness Narrative* Problem Noted Date Resolved Date Colon cancer screening 07/14/2018 0 Encounter for screening mammogram for breast can cer 12/29/2017 07/19/2019 Well adult exam 06/26/2017 07/19/2019 Overview: last done: 07/14/2018 Encounter for screening for diabetes mellitus 07/28/2017 Multiple falls 01/08/2016 07/28/2017 Right hip pain 11/07/2014 07/19/2019 Anxiety 07/05/2013 07/19/2019 SUMMARY 05/04/2013 07/28/2017 Overview: 57y/o with history of chest pain, stress test 11-6 + for EKG changes, scan no infarct or ischemia, 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 She is awaiting decision on treatment options. After discussion with Dr Lindsey and her family, she prefers to have PCI, this is scheduled for this am, -14 documented as of this encounter (statuses as of 01/04/2022) [facility] of Past illness Narrative* Problem Noted Date Resolved Date Colon cancer screening 07/14/2018 0 Encounter for screening mammogram for breast can cer 12/29/2017 07/19/2019 Well adult exam 06/26/2017 07/19/2019 Overview: last done: 07/14/2018 Encounter for screening for diabetes mellitus 07/28/2017 Multiple falls 01/08/2016 07/28/2017 Right hip pain 11/07/2014 07/19/2019 Anxiety 07/05/2013 07/19/2019 SUMMARY 05/04/2013 07/28/2017 Overview: 57y/o with history of chest pain, stress test 11-6 + for EKG changes, scan no infarct or ischemia, 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 She is awaiting decision on treatment options. After discussion with Dr Lindsey and her family, she prefers to have PCI, this is scheduled for this am, 11-14 documented as of this encounter (statuses as of 01/23/2022) [facility]01-22-2019 History of Past illness Narrative* Problem Noted Date Resolved Date Colon cancer screening 07/14/2018 0 Encounter for screening mammogram for breast can cer 12/29/2017 07/19/2019 Well adult exam 06/26/2017 07/19/2019 Overview: last done: 07/14/2018 Encounter for screening for diabetes mellitus 07/28/2017 Multiple falls 01/08/2016 07/28/2017 Right hip pain 11/07/2014 07/19/2019 Anxiety 07/05/2013 07/19/2019 SUMMARY 05/04/2013 07/28/2017 Overview: 57y/o with history of chest pain, stress test 11-6 + for EKG changes, scan no infarct or ischemia, 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 She is awaiting decision on treatment options. After discussion with Dr Lindsey and her family, she prefers to have PCI, this is scheduled for this am, 05-06 documented as of this encounter (statuses as of 01/23/2022) [facility]01-[facility]-2019 History of Past illness Narrative* Problem Noted Date Resolved Date Colon cancer screening 07/14/2018 0 Encounter for screening mammogram for breast can cer 12/29/2017 07/19/2019 Well adult exam 06/26/2017 07/19/2019 Overview: last done: 07/14/2018 Encounter for screening for diabetes mellitus 07/28/2017 Multiple falls 01/08/2016 07/28/2017 Right hip pain 11/07/2014 07/19/2019 Anxiety 07/05/2013 07/19/2019 SUMMARY 05/04/2013 07/28/2017 Overview: 57y/o with history of chest pain, stress test 11-6 + for EKG changes, scan no infarct or ischemia, 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 She is awaiting decision on treatment options. After discussion with Dr Lindsey and her family, she prefers to have PCI, this is scheduled for this am, 11-14 documented as of this encounter (statuses as of 01/25/2022) [facility]01[facility]2019 History of Past illness Narrative* Problem Noted Date Resolved Date Colon cancer screening 07/14/2018 0 Encounter for screening mammogram for breast can cer 12/29/2017 07/19/2019 Well adult exam 06/26/2017 07/19/2019 Overview: last done: 07/14/2018 Encounter for screening for diabetes mellitus 07/28/2017 Multiple falls 01/08/2016 07/28/2017 Right hip pain 11/07/2014 07/19/2019 Anxiety 07/05/2013 07/19/2019 SUMMARY 05/04/2013 07/28/2017 Overview: 57y/o with history of chest pain, stress test 11-6 + for EKG changes, scan no infarct or ischemia, 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 She is awaiting decision on treatment options. After discussion with Dr Lindsey and her family, she prefers to have PCI, this is scheduled for this am, 11-14 documented as of this encounter (statuses as of 02/04/2022) [facility]01[facility]2019 History of Past illness Narrative* Problem Noted Date Resolved Date Colon cancer screening 07/14/2018 0 Encounter for screening mammogram for breast can cer 12/29/2017 07/19/2019 Well adult exam 06/26/2017 07/19/2019 Overview: last done: 07/14/2018 Encounter for screening for diabetes mellitus 07/28/2017 Multiple falls 01/08/2016 07/28/2017 Right hip pain 11/07/2014 07/19/2019 Anxiety 07/05/2013 07/19/2019 SUMMARY 05/04/2013 07/28/2017 Overview: 57y/o with history of chest pain, stress test 11-6 + for EKG changes, scan no infarct or ischemia, 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 She is awaiting decision on treatment options. After discussion with Dr Lindsey and her family, she prefers to have PCI, this is scheduled for this am, 05-06 documented as of this encounter (statuses as of 02/18/2022) [facility]01[facility] History of Past illness Narrative* Problem Noted Date Resolved Date Colon cancer screening 07/14/2018 0 Encounter for screening mammogram for breast can cer 12/29/2017 07/19/2019 Well adult exam 06/26/2017 07/19/2019 Overview: last done: 07/14/2018 Encounter for screening for diabetes mellitus 07/28/2017 Multiple falls 01/08/2016 07/28/2017 Right hip pain 11/07/2014 07/19/2019 Anxiety 07/05/2013 07/19/2019 SUMMARY 05/04/2013 07/28/2017 Overview: 57y/o with history of chest pain, stress test 11-6 + for EKG changes, scan no infarct or ischemia, 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 She is awaiting decision on treatment options. After discussion with Dr Lindsey and her family, she prefers to have PCI, this is scheduled for this am, 05-06 documented as of this encounter (statuses as of 02/21/2022) [facility]01[facility]2019 History of Past illness Narrative* Problem Noted Date Resolved Date Colon cancer screening 07/14/2018 0 Encounter for screening mammogram for breast can cer 12/29/2017 07/19/2019 Well adult exam 06/26/2017 07/19/2019 Overview: last done: 07/14/2018 Encounter for screening for diabetes mellitus 07/28/2017 Multiple falls 01/08/2016 07/28/2017 Right hip pain 11/07/2014 07/19/2019 Anxiety 07/05/2013 07/19/2019 SUMMARY 05/04/2013 07/28/2017 Overview: 57y/o with history of chest pain, stress test 11-6 + for EKG changes, scan no infarct or ischemia, 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 She is awaiting decision on treatment options. After discussion with Dr Lindsey and her family, she prefers to have PCI, this is scheduled for this am, 1114 documented as of this encounter (statuses as of 02/22/2022) [facility]01[facility]2019 History of Past illness Narrative* Problem Noted Date Resolved Date Colon cancer screening 07/14/2018 0 Encounter for screening mammogram for breast can cer 12/29/2017 07/19/2019 Well adult exam 06/26/2017 07/19/2019 Overview: last done: 07/14/2018 Encounter for screening for diabetes mellitus 07/28/2017 Multiple falls 01/08/2016 07/28/2017 Right hip pain 11/07/2014 07/19/2019 Anxiety 07/05/2013 07/19/2019 SUMMARY 05/04/2013 07/28/2017 Overview: 57y/o with history of chest pain, stress test 11-6 + for EKG changes, scan no infarct or ischemia, 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 She is awaiting decision on treatment options. After discussion with Dr Lindsey and her family, she prefers to have PCI, this is scheduled for this am, 14 documented as of this encounter (statuses as of 02/27/2022) [facility]01[facility]2019 History of Past illness Narrative* Problem Noted Date Resolved Date Colon cancer screening 07/14/2018 0 Encounter for screening mammogram for breast can cer 12/29/2017 07/19/2019 Well adult exam 06/26/2017 07/19/2019 Overview: last done: 07/14/2018 Encounter for screening for diabetes mellitus 07/28/2017 Multiple falls 01/08/2016 07/28/2017 Right hip pain 11/07/2014 07/19/2019 Anxiety 07/05/2013 07/19/2019 SUMMARY 05/04/2013 07/28/2017 Overview: 57y/o with history of chest pain, stress test 11-6 + for EKG changes, scan no infarct or ischemia, 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 She is awaiting decision on treatment options. After discussion with Dr Lindsey and her family, she prefers to have PCI, this is scheduled for this am, 1114 documented as of this encounter (statuses as of 04/03/2022) [facility]01[facility]2019 History of Past illness Narrative* Problem Noted Date Resolved Date Colon cancer screening 07/14/2018 0 Encounter for screening mammogram for breast can cer 12/29/2017 07/19/2019 Well adult exam 06/26/2017 07/19/2019 Overview: last done: 07/14/2018 Encounter for screening for diabetes mellitus 07/28/2017 Multiple falls 01/08/2016 07/28/2017 Right hip pain 11/07/2014 07/19/2019 Anxiety 07/05/2013 07/19/2019 SUMMARY 05/04/2013 07/28/2017 Overview: 57y/o with history of chest pain, stress test 11-6 + for EKG changes, scan no infarct or ischemia, 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 She is awaiting decision on treatment options. After discussion with Dr Lindsey and her family, she prefers to have PCI, this is scheduled for this am, 1114 documented as of this encounter (statuses as of 04/08/2022) [facility]01[facility]2019 History of Past illness Narrative* Problem Noted Date Resolved Date Colon cancer screening 07/14/2018 0 Encounter for screening mammogram for breast can cer 12/29/2017 07/19/2019 Well adult exam 06/26/2017 07/19/2019 Overview: last done: 07/14/2018 Encounter for screening for diabetes mellitus 07/28/2017 Multiple falls 01/08/2016 07/28/2017 Right hip pain 11/07/2014 07/19/2019 Anxiety 07/05/2013 07/19/2019 SUMMARY 05/04/2013 07/28/2017 Overview: 57y/o with history of chest pain, stress test 11-6 + for EKG changes, scan no infarct or ischemia, 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 She is awaiting decision on treatment options. After discussion with Dr Lindsey and her family, she prefers to have PCI, this is scheduled for this am, 14 documented as of this encounter (statuses as of 05/07/2022) [facility]01[facility]2019 History of Past illness Narrative* Problem Noted Date Resolved Date Colon cancer screening 07/14/2018 0 Encounter for screening mammogram for breast can cer 12/29/2017 07/19/2019 Well adult exam 06/26/2017 07/19/2019 Overview: last done: 07/14/2018 Encounter for screening for diabetes mellitus 07/28/2017 Multiple falls 01/08/2016 07/28/2017 Right hip pain 11/07/2014 07/19/2019 Anxiety 07/05/2013 07/19/2019 SUMMARY 05/04/2013 07/28/2017 Overview: 57y/o with history of chest pain, stress test 11-6 + for EKG changes, scan no infarct or ischemia, 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 She is awaiting decision on treatment options. After discussion with Dr Lindsey and her family, she prefers to have PCI, this is scheduled for this am, 05-06 documented as of this encounter (statuses as of 05/08/2022) [facility]01[facility]2019 History of Past illness Narrative* Problem Noted Date Resolved Date Colon cancer screening 07/14/2018 0 Encounter for screening mammogram for breast can cer 12/29/2017 07/19/2019 Well adult exam 06/26/2017 07/19/2019 Overview: last done: 07/14/2018 Encounter for screening for diabetes mellitus 07/28/2017 Multiple falls 01/08/2016 07/28/2017 Right hip pain 11/07/2014 07/19/2019 Anxiety 07/05/2013 07/19/2019 SUMMARY 05/04/2013 07/28/2017 Overview: 57y/o with history of chest pain, stress test 11-6 + for EKG changes, scan no infarct or ischemia, 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 She is awaiting decision on treatment options. After discussion with Dr Lindsey and her family, she prefers to have PCI, this is scheduled for this am, 1114 documented as of this encounter (statuses as of 05/09/2022) [facility]01[facility]2019 History of Past illness Narrative* Problem Noted Date Resolved Date Colon cancer screening 07/14/2018 0 Encounter for screening mammogram for breast can cer 12/29/2017 07/19/2019 Well adult exam 06/26/2017 07/19/2019 Overview: last done: 07/14/2018 Encounter for screening for diabetes mellitus 07/28/2017 Multiple falls 01/08/2016 07/28/2017 Right hip pain 11/07/2014 07/19/2019 Anxiety 07/05/2013 07/19/2019 SUMMARY 05/04/2013 07/28/2017 Overview: 57y/o with history of chest pain, stress test 11-6 + for EKG changes, scan no infarct or ischemia, 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 She is awaiting decision on treatment options. After discussion with Dr Lindsey and her family, she prefers to have PCI, this is scheduled for this am, 05-06 documented as of this encounter (statuses as of 05/09/2022) [facility]01[facility]2019 History of Past illness Narrative* Problem Noted Date Resolved Date Colon cancer screening 07/14/2018 0 Encounter for screening mammogram for breast can cer 12/29/2017 07/19/2019 Well adult exam 06/26/2017 07/19/2019 Overview: last done: 07/14/2018 Encounter for screening for diabetes mellitus 07/28/2017 Multiple falls 01/08/2016 07/28/2017 Right hip pain 11/07/2014 07/19/2019 Anxiety 07/05/2013 07/19/2019 SUMMARY 05/04/2013 07/28/2017 Overview: 57y/o with history of chest pain, stress test 11-6 + for EKG changes, scan no infarct or ischemia, 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 She is awaiting decision on treatment options. After discussion with Dr Lindsey and her family, she prefers to have PCI, this is scheduled for this am, 05-06 documented as of this encounter (statuses as of 05/20/2022) [facility]01[facility]2019 History of Past illness Narrative* Problem Noted Date Resolved Date Colon cancer screening 07/14/2018 0 Encounter for screening mammogram for breast can cer 12/29/2017 07/19/2019 Well adult exam 06/26/2017 07/19/2019 Overview: last done: 07/14/2018 Encounter for screening for diabetes mellitus 07/28/2017 Multiple falls 01/08/2016 07/28/2017 Right hip pain 11/07/2014 07/19/2019 Anxiety 07/05/2013 07/19/2019 SUMMARY 05/04/2013 07/28/2017 Overview: 57y/o with history of chest pain, stress test 11-6 + for EKG changes, scan no infarct or ischemia, 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 She is awaiting decision on treatment options. After discussion with Dr Lindsey and her family, she prefers to have PCI, this is scheduled for this am, 05-06 documented as of this encounter (statuses as of 05/29/2022) [facility]01[facility]2019 History of Past illness Narrative* Problem Noted Date Resolved Date Colon cancer screening 07/14/2018 0 Encounter for screening mammogram for breast can cer 12/29/2017 07/19/2019 Well adult exam 06/26/2017 07/19/2019 Overview: last done: 07/14/2018 Encounter for screening for diabetes mellitus 07/28/2017 Multiple falls 01/08/2016 07/28/2017 Right hip pain 11/07/2014 07/19/2019 Anxiety 07/05/2013 07/19/2019 SUMMARY 05/04/2013 07/28/2017 Overview: 57y/o with history of chest pain, stress test 11-6 + for EKG changes, scan no infarct or ischemia, 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 She is awaiting decision on treatment options. After discussion with Dr Lindsey and her family, she prefers to have PCI, this is scheduled for this am, 05-06 documented as of this encounter (statuses as of 06/05/2022) [facility]01[facility]2019 History of Past illness Narrative* Problem Noted Date Resolved Date Colon cancer screening 07/14/2018 0 Encounter for screening mammogram for breast can cer 12/29/2017 07/19/2019 Well adult exam 06/26/2017 07/19/2019 Overview: last done: 07/14/2018 Encounter for screening for diabetes mellitus 07/28/2017 Multiple falls 01/08/2016 07/28/2017 Right hip pain 11/07/2014 07/19/2019 Anxiety 07/05/2013 07/19/2019 SUMMARY 05/04/2013 07/28/2017 Overview: 57y/o with history of chest pain, stress test 11-6 + for EKG changes, scan no infarct or ischemia, 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 She is awaiting decision on treatment options. After discussion with Dr Lindsey and her family, she prefers to have PCI, this is scheduled for this am, 05-06 documented as of this encounter (statuses as of 06/10/2022) [facility]01[facility]2019 History of Past illness Narrative* Problem Noted Date Resolved Date Colon cancer screening 07/14/2018 0 Encounter for screening mammogram for breast can cer 12/29/2017 07/19/2019 Well adult exam 06/26/2017 07/19/2019 Overview: last done: 07/14/2018 Encounter for screening for diabetes mellitus 07/28/2017 Multiple falls 01/08/2016 07/28/2017 Right hip pain 11/07/2014 07/19/2019 Anxiety 07/05/2013 07/19/2019 SUMMARY 05/04/2013 07/28/2017 Overview: 57y/o with history of chest pain, stress test 11-6 + for EKG changes, scan no infarct or ischemia, 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 She is awaiting decision on treatment options. After discussion with Dr Lindsey and her family, she prefers to have PCI, this is scheduled for this am, 14 documented as of this encounter (statuses as of 06/10/2022) [facility]01[facility]2019 History of Past illness Narrative* Problem Noted Date Resolved Date Colon cancer screening 07/14/2018 0 Encounter for screening mammogram for breast can cer 12/29/2017 07/19/2019 Well adult exam 06/26/2017 07/19/2019 Overview: last done: 07/14/2018 Encounter for screening for diabetes mellitus 07/28/2017 Multiple falls 01/08/2016 07/28/2017 Right hip pain 11/07/2014 07/19/2019 Anxiety 07/05/2013 07/19/2019 SUMMARY 05/04/2013 07/28/2017 Overview: 57y/o with history of chest pain, stress test 11-6 + for EKG changes, scan no infarct or ischemia, 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 She is awaiting decision on treatment options. After discussion with Dr Lindsey and her family, she prefers to have PCI, this is scheduled for this am, 14 documented as of this encounter (statuses as of 06/26/2022) [facility]01[facility]2019 History of Past illness Narrative* Problem Noted Date Resolved Date Colon cancer screening 07/14/2018 0 Encounter for screening mammogram for breast can cer 12/29/2017 07/19/2019 Well adult exam 06/26/2017 07/19/2019 Overview: last done: 07/14/2018 Encounter for screening for diabetes mellitus 07/28/2017 Multiple falls 01/08/2016 07/28/2017 Right hip pain 11/07/2014 07/19/2019 Anxiety 07/05/2013 07/19/2019 SUMMARY 05/04/2013 07/28/2017 Overview: 57y/o with history of chest pain, stress test 11-6 + for EKG changes, scan no infarct or ischemia, 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 She is awaiting decision on treatment options. After discussion with Dr Lindsey and her family, she prefers to have PCI, this is scheduled for this am, 14 documented as of this encounter (statuses as of 07/08/2022) [facility]01[facility] History of Past illness Narrative* Problem Noted Date Resolved Date Colon cancer screening 07/14/2018 0 Encounter for screening mammogram for breast can cer 12/29/2017 07/19/2019 Well adult exam 06/26/2017 07/19/2019 Overview: last done: 07/14/2018 Encounter for screening for diabetes mellitus 07/28/2017 Multiple falls 01/08/2016 07/28/2017 Right hip pain 11/07/2014 07/19/2019 Anxiety 07/05/2013 07/19/2019 SUMMARY 05/04/2013 07/28/2017 Overview: 57y/o with history of chest pain, stress test 11-6 + for EKG changes, scan no infarct or ischemia, 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 She is awaiting decision on treatment options. After discussion with Dr Lindsey and her family, she prefers to have PCI, this is scheduled for this am, -14 documented as of this encounter (statuses as of 08/02/2022) [facility] History of Past illness Narrative* Problem Noted Date Resolved Date Colon cancer screening 07/14/2018 0 Encounter for screening mammogram for breast can cer 12/29/2017 07/19/2019 Well adult exam 06/26/2017 07/19/2019 Overview: last done: 07/14/2018 Encounter for screening for diabetes mellitus 07/28/2017 Multiple falls 01/08/2016 07/28/2017 Right hip pain 11/07/2014 07/19/2019 Anxiety 07/05/2013 07/19/2019 SUMMARY 05/04/2013 07/28/2017 Overview: 57y/o with history of chest pain, stress test 11-6 + for EKG changes, scan no infarct or ischemia, 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 She is awaiting decision on treatment options. After discussion with Dr Lindsey and her family, she prefers to have PCI, this is scheduled for this am, 14 documented as of this encounter (statuses as of 08/12/2022) [facility] History of Past illness Narrative* Problem Noted Date Resolved Date Colon cancer screening 07/14/2018 0 Encounter for screening mammogram for breast can cer 12/29/2017 07/19/2019 Well adult exam 06/26/2017 07/19/2019 Overview: last done: 07/14/2018 Encounter for screening for diabetes mellitus 07/28/2017 Multiple falls 01/08/2016 07/28/2017 Right hip pain 11/07/2014 07/19/2019 Anxiety 07/05/2013 07/19/2019 SUMMARY 05/04/2013 07/28/2017 Overview: 57y/o with history of chest pain, stress test 11-6 + for EKG changes, scan no infarct or ischemia, 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 She is awaiting decision on treatment options. After discussion with Dr Lindsey and her family, she prefers to have PCI, this is scheduled for this am, 11-14 documented as of this encounter (statuses as of 08/12/2022) [facility] History of Past illness Narrative* Problem Noted Date Resolved Date Colon cancer screening 07/14/2018 0 Encounter for screening mammogram for breast can cer 12/29/2017 07/19/2019 Well adult exam 06/26/2017 07/19/2019 Overview: last done: 07/14/2018 Encounter for screening for diabetes mellitus 07/28/2017 Multiple falls 01/08/2016 07/28/2017 Right hip pain 11/07/2014 07/19/2019 Anxiety 07/05/2013 07/19/2019 SUMMARY 05/04/2013 07/28/2017 Overview: 57y/o with history of chest pain, stress test 11-6 + for EKG changes, scan no infarct or ischemia, 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 She is awaiting decision on treatment options. After discussion with Dr Lindsey and her family, she prefers to have PCI, this is scheduled for this am, 05-06 documented as of this encounter (statuses as of 08/13/2022) [facility] History of Past illness Narrative* Problem Noted Date Resolved Date Colon cancer screening 07/14/2018 0 Encounter for screening mammogram for breast can cer 12/29/2017 07/19/2019 Well adult exam 06/26/2017 07/19/2019 Overview: last done: 07/14/2018 Encounter for screening for diabetes mellitus 07/28/2017 Multiple falls 01/08/2016 07/28/2017 Right hip pain 11/07/2014 07/19/2019 Anxiety 07/05/2013 07/19/2019 SUMMARY 05/04/2013 07/28/2017 Overview: 57y/o with history of chest pain, stress test 11-6 + for EKG changes, scan no infarct or ischemia, 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 She is awaiting decision on treatment options. After discussion with Dr Lindsey and her family, she prefers to have PCI, this is scheduled for this am, 05-06 documented as of this encounter (statuses as of 08/21/2022) [facility] History of Past illness Narrative* Problem Noted Date Resolved Date Colon cancer screening 07/14/2018 0 Encounter for screening mammogram for breast can cer 12/29/2017 07/19/2019 Well adult exam 06/26/2017 07/19/2019 Overview: last done: 07/14/2018 Encounter for screening for diabetes mellitus 07/28/2017 Multiple falls 01/08/2016 07/28/2017 Right hip pain 11/07/2014 07/19/2019 Anxiety 07/05/2013 07/19/2019 SUMMARY 05/04/2013 07/28/2017 Overview: 57y/o with history of chest pain, stress test 11-6 + for EKG changes, scan no infarct or ischemia, 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 She is awaiting decision on treatment options. After discussion with Dr Lindsey and her family, she prefers to have PCI, this is scheduled for this am, 05-06 documented as of this encounter (statuses as of 09/03/2022) [facility] History of Past illness Narrative* Problem Noted Date Resolved Date Colon cancer screening 07/14/2018 0 Encounter for screening mammogram for breast can cer 12/29/2017 07/19/2019 Well adult exam 06/26/2017 07/19/2019 Overview: last done: 07/14/2018 Encounter for screening for diabetes mellitus 07/28/2017 Multiple falls 01/08/2016 07/28/2017 Right hip pain 11/07/2014 07/19/2019 Anxiety 07/05/2013 07/19/2019 SUMMARY 05/04/2013 07/28/2017 Overview: 57y/o with history of chest pain, stress test 11-6 + for EKG changes, scan no infarct or ischemia, 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 She is awaiting decision on treatment options. After discussion with Dr Lindsey and her family, she prefers to have PCI, this is scheduled for this am, 05-06 documented as of this encounter (statuses as of 09/10/2022) [facility] History of Past illness Narrative* Problem Noted Date Resolved Date Colon cancer screening 07/14/2018 0 Encounter for screening mammogram for breast can cer 12/29/2017 07/19/2019 Well adult exam 06/26/2017 07/19/2019 Overview: last done: 07/14/2018 Encounter for screening for diabetes mellitus 07/28/2017 Multiple falls 01/08/2016 07/28/2017 Right hip pain 11/07/2014 07/19/2019 Anxiety 07/05/2013 07/19/2019 SUMMARY 05/04/2013 07/28/2017 Overview: 57y/o with history of chest pain, stress test 11-6 + for EKG changes, scan no infarct or ischemia, 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 She is awaiting decision on treatment options. After discussion with Dr Lindsey and her family, she prefers to have PCI, this is scheduled for this am, 05-06 documented as of this encounter (statuses as of 10/04/2022) [facility]01-22-2019 History of Past illness Narrative* Problem Noted Date Resolved Date Colon cancer screening 07/14/2018 0 Encounter for screening mammogram for breast can cer 12/29/2017 07/19/2019 Well adult exam 06/26/2017 07/19/2019 Overview: last done: 07/14/2018 Encounter for screening for diabetes mellitus 07/28/2017 Multiple falls 01/08/2016 07/28/2017 Right hip pain 11/07/2014 07/19/2019 Anxiety 07/05/2013 07/19/2019 SUMMARY 05/04/2013 07/28/2017 Overview: 57y/o with history of chest pain, stress test 11-6 + for EKG changes, scan no infarct or ischemia, 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 She is awaiting decision on treatment options. After discussion with Dr Lindsey and her family, she prefers to have PCI, this is scheduled for this am, 11-14 documented as of this encounter (statuses as of 10/11/2022) [facility]01-[facility]-2019 History of Past illness Narrative* Problem Noted Date Resolved Date Colon cancer screening 07/14/2018 0 Encounter for screening mammogram for breast can cer 12/29/2017 07/19/2019 Well adult exam 06/26/2017 07/19/2019 Overview: last done: 07/14/2018 Encounter for screening for diabetes mellitus 07/28/2017 Multiple falls 01/08/2016 07/28/2017 Right hip pain 11/07/2014 07/19/2019 Anxiety 07/05/2013 07/19/2019 SUMMARY 05/04/2013 07/28/2017 Overview: 57y/o with history of chest pain, stress test 11-6 + for EKG changes, scan no infarct or ischemia, 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 She is awaiting decision on treatment options. After discussion with Dr Lindsey and her family, she prefers to have PCI, this is scheduled for this am, 1114 documented as of this encounter (statuses as of 10/25/2022) [facility]01[facility]2019 History of Past illness Narrative* Problem Noted Date Resolved Date Colon cancer screening 07/14/2018 0 Encounter for screening mammogram for breast can cer 12/29/2017 07/19/2019 Well adult exam 06/26/2017 07/19/2019 Overview: last done: 07/14/2018 Encounter for screening for diabetes mellitus 07/28/2017 Multiple falls 01/08/2016 07/28/2017 Right hip pain 11/07/2014 07/19/2019 Anxiety 07/05/2013 07/19/2019 SUMMARY 05/04/2013 07/28/2017 Overview: 57y/o with history of chest pain, stress test 11-6 + for EKG changes, scan no infarct or ischemia, 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 She is awaiting decision on treatment options. After discussion with Dr Lindsey and her family, she prefers to have PCI, this is scheduled for this am, 1114 documented as of this encounter (statuses as of 11/22/2022) [facility]01[facility]2019 History of Past illness Narrative* Problem Noted Date Resolved Date Colon cancer screening 07/14/2018 0 Encounter for screening mammogram for breast can cer 12/29/2017 07/19/2019 Well adult exam 06/26/2017 07/19/2019 Overview: last done: 07/14/2018 Encounter for screening for diabetes mellitus 07/28/2017 Multiple falls 01/08/2016 07/28/2017 Right hip pain 11/07/2014 07/19/2019 Anxiety 07/05/2013 07/19/2019 SUMMARY 05/04/2013 07/28/2017 Overview: 57y/o with history of chest pain, stress test 11-6 + for EKG changes, scan no infarct or ischemia, 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 She is awaiting decision on treatment options. After discussion with Dr Lindsey and her family, she prefers to have PCI, this is scheduled for this am, 1114 documented as of this encounter (statuses as of 11/26/2022) [facility]01[facility]2019 History of Past illness Narrative* Problem Noted Date Resolved Date Colon cancer screening 07/14/2018 0 Encounter for screening mammogram for breast can cer 12/29/2017 07/19/2019 Well adult exam 06/26/2017 07/19/2019 Overview: last done: 07/14/2018 Encounter for screening for diabetes mellitus 07/28/2017 Multiple falls 01/08/2016 07/28/2017 Right hip pain 11/07/2014 07/19/2019 Anxiety 07/05/2013 07/19/2019 SUMMARY 05/04/2013 07/28/2017 Overview: 57y/o with history of chest pain, stress test 11-6 + for EKG changes, scan no infarct or ischemia, 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 She is awaiting decision on treatment options. After discussion with Dr Lindsey and her family, she prefers to have PCI, this is scheduled for this am, 11-14 documented as of this encounter (statuses as of 12/10/2022) [facility]2019 History of Past illness Narrative* Problem Noted Date Resolved Date Colon cancer screening 07/14/2018 0 Encounter for screening mammogram for breast can cer 12/29/2017 07/19/2019 Well adult exam 06/26/2017 07/19/2019 Overview: last done: 07/14/2018 Encounter for screening for diabetes mellitus 07/28/2017 Multiple falls 01/08/2016 07/28/2017 Right hip pain 11/07/2014 07/19/2019 Anxiety 07/05/2013 07/19/2019 SUMMARY 05/04/2013 07/28/2017 Overview: 57y/o with history of chest pain, stress test 11-6 + for EKG changes, scan no infarct or ischemia, 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 She is awaiting decision on treatment options. After discussion with Dr Lindsey and her family, she prefers to have PCI, this is scheduled for this am, 14 documented as of this encounter (statuses as of 12/12/2022) [facility]01[facility]2019 History of Past illness Narrative* Problem Noted Date Resolved Date Colon cancer screening 07/14/2018 0 Encounter for screening mammogram for breast can cer 12/29/2017 07/19/2019 Well adult exam 06/26/2017 07/19/2019 Overview: last done: 07/14/2018 Encounter for screening for diabetes mellitus 07/28/2017 Multiple falls 01/08/2016 07/28/2017 Right hip pain 11/07/2014 07/19/2019 Anxiety 07/05/2013 07/19/2019 SUMMARY 05/04/2013 07/28/2017 Overview: 57y/o with history of chest pain, stress test 11-6 + for EKG changes, scan no infarct or ischemia, 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 She is awaiting decision on treatment options. After discussion with Dr Lindsey and her family, she prefers to have PCI, this is scheduled for this am, 1114 documented as of this encounter (statuses as of 12/12/2022) [facility]01[facility]2019 History of Past illness Narrative* Problem Noted Date Resolved Date Colon cancer screening 07/14/2018 0 Encounter for screening mammogram for breast can cer 12/29/2017 07/19/2019 Well adult exam 06/26/2017 07/19/2019 Overview: last done: 07/14/2018 Encounter for screening for diabetes mellitus 07/28/2017 Multiple falls 01/08/2016 07/28/2017 Right hip pain 11/07/2014 07/19/2019 Anxiety 07/05/2013 07/19/2019 SUMMARY 05/04/2013 07/28/2017 Overview: 57y/o with history of chest pain, stress test 11-6 + for EKG changes, scan no infarct or ischemia, 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 She is awaiting decision on treatment options. After discussion with Dr Lindsey and her family, she prefers to have PCI, this is scheduled for this am, 05-06 documented as of this encounter (statuses as of 12/12/2022) [facility]01[facility]2019 History of Past illness Narrative* Problem Noted Date Resolved Date Colon cancer screening 07/14/2018 0 Encounter for screening mammogram for breast can cer 12/29/2017 07/19/2019 Well adult exam 06/26/2017 07/19/2019 Overview: last done: 07/14/2018 Encounter for screening for diabetes mellitus 07/28/2017 Multiple falls 01/08/2016 07/28/2017 Right hip pain 11/07/2014 07/19/2019 Anxiety 07/05/2013 07/19/2019 SUMMARY 05/04/2013 07/28/2017 Overview: 57y/o with history of chest pain, stress test 11-6 + for EKG changes, scan no infarct or ischemia, 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 She is awaiting decision on treatment options. After discussion with Dr Lindsey and her family, she prefers to have PCI, this is scheduled for this am, 1114 documented as of this encounter (statuses as of 12/13/2022) [facility]01[facility]2019 History of Past illness Narrative* Problem Noted Date Resolved Date Colon cancer screening 07/14/2018 0 Encounter for screening mammogram for breast can cer 12/29/2017 07/19/2019 Well adult exam 06/26/2017 07/19/2019 Overview: last done: 07/14/2018 Encounter for screening for diabetes mellitus 07/28/2017 Multiple falls 01/08/2016 07/28/2017 Right hip pain 11/07/2014 07/19/2019 Anxiety 07/05/2013 07/19/2019 SUMMARY 05/04/2013 07/28/2017 Overview: 57y/o with history of chest pain, stress test 11-6 + for EKG changes, scan no infarct or ischemia, 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 She is awaiting decision on treatment options. After discussion with Dr Lindsey and her family, she prefers to have PCI, this is scheduled for this am, 1114 documented as of this encounter (statuses as of 12/17/2022) [facility]01[facility]2019 History of Past illness Narrative* Problem Noted Date Resolved Date Colon cancer screening 07/14/2018 0 Encounter for screening mammogram for breast can cer 12/29/2017 07/19/2019 Well adult exam 06/26/2017 07/19/2019 Overview: last done: 07/14/2018 Encounter for screening for diabetes mellitus 07/28/2017 Multiple falls 01/08/2016 07/28/2017 Right hip pain 11/07/2014 07/19/2019 Anxiety 07/05/2013 07/19/2019 SUMMARY 05/04/2013 07/28/2017 Overview: 57y/o with history of chest pain, stress test 11-6 + for EKG changes, scan no infarct or ischemia, 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 She is awaiting decision on treatment options. After discussion with Dr Lindsey and her family, she prefers to have PCI, this is scheduled for this am, 05-06 documented as of this encounter (statuses as of 12/26/2022) [facility]01[facility]2019 History of Past illness Narrative* Problem Noted Date Diagnosed Date Resolved Date Colon cancer screening 07/14/201807/19 Encounter for screening mamm ogram for breast cancer 12/29/2017 07/19/2019 Well adult exam 06/26/2017 07/19/2019 Overview: last done: 07/14/2018 Encounter for screening for diabetes mellitus 06/26/19 18 07/28/2017 Multiple falls 01/08/2016 07/28/2017 Right hip pain 11/07/2014 07/19/2019 Anxiety 07/05/2013 07/19/2019 SUMMARY 05/04/2013 07/28/2017 Overview: 57y/o with history of chest pain, stress test 11-6 + for EKG changes, scan no infarct or ischemia, 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 She is awaiting decision on treatment options. After discussion with Dr Lindsey and her family, she prefers to have PCI, this is scheduled for this am, 05-06 documented as of this encounter (statuses as of 01/08/2023) [facility]01[facility]2019 History of Past illness Narrative* Problem Noted Date Diagnosed Date Resolved Date Colon cancer screening 07/14/201807/19 Encounter for screening mamm ogram for breast cancer 12/29/2017 07/19/2019 Well adult exam 06/26/2017 07/19/2019 Overview: last done: 07/14/2018 Encounter for screening for diabetes mellitus 06/26/19 18 07/28/2017 Multiple falls 01/08/2016 07/28/2017 Right hip pain 11/07/2014 07/19/2019 Anxiety 07/05/2013 07/19/2019 SUMMARY 05/04/2013 07/28/2017 Overview: 57y/o with history of chest pain, stress test 11-6 + for EKG changes, scan no infarct or ischemia, 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 She is awaiting decision on treatment options. After discussion with Dr Lindsey and her family, she prefers to have PCI, this is scheduled for this am, 14 documented as of this encounter (statuses as of 01/08/2023) [facility]01[facility]2019 History of Past illness Narrative* Problem Noted Date Diagnosed Date Resolved Date Colon cancer screening 07/14/201807/19 Encounter for screening mamm ogram for breast cancer 12/29/2017 07/19/2019 Well adult exam 06/26/2017 07/19/2019 Overview: last done: 07/14/2018 Encounter for screening for diabetes mellitus 06/26/19 18 07/28/2017 Multiple falls 01/08/2016 07/28/2017 Right hip pain 11/07/2014 07/19/2019 Anxiety 07/05/2013 07/19/2019 SUMMARY 05/04/2013 07/28/2017 Overview: 57y/o with history of chest pain, stress test 11-6 + for EKG changes, scan no infarct or ischemia, 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 She is awaiting decision on treatment options. After discussion with Dr Lindsey and her family, she prefers to have PCI, this is scheduled for this am, 14 documented as of this encounter (statuses as of 01/08/2023) [facility]01[facility]2019 History of Past illness Narrative* Problem Noted Date Diagnosed Date Resolved Date Colon cancer screening 07/14/201807/19 Encounter for screening mamm ogram for breast cancer 12/29/2017 07/19/2019 Well adult exam 06/26/2017 07/19/2019 Overview: last done: 07/14/2018 Encounter for screening for diabetes mellitus 06/26/19 18 07/28/2017 Multiple falls 01/08/2016 07/28/2017 Right hip pain 11/07/2014 07/19/2019 Anxiety 07/05/2013 07/19/2019 SUMMARY 05/04/2013 07/28/2017 Overview: 57y/o with history of chest pain, stress test 11-6 + for EKG changes, scan no infarct or ischemia, 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 She is awaiting decision on treatment options. After discussion with Dr Lindsey and her family, she prefers to have PCI, this is scheduled for this am, 14 documented as of this encounter (statuses as of 01/29/2023) [facility]01[facility]2019 History of Past illness Narrative* Problem Noted Date Diagnosed Date Resolved Date Colon cancer screening 07/14/201807/19 Encounter for screening mamm ogram for breast cancer 12/29/2017 07/19/2019 Well adult exam 06/26/2017 07/19/2019 Overview: last done: 07/14/2018 Encounter for screening for diabetes mellitus 06/26/19 18 07/28/2017 Multiple falls 01/08/2016 07/28/2017 Right hip pain 11/07/2014 07/19/2019 Anxiety 07/05/2013 07/19/2019 SUMMARY 05/04/2013 07/28/2017 Overview: 57y/o with history of chest pain, stress test 11-6 + for EKG changes, scan no infarct or ischemia, 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 She is awaiting decision on treatment options. After discussion with Dr Lindsey and her family, she prefers to have PCI, this is scheduled for this am, 11-14 documented as of this encounter (statuses as of 02/03/2023) [facility]01[facility]2019 History of Past illness Narrative* Problem Noted Date Diagnosed Date Resolved Date Colon cancer screening 07/14/201807/19 Encounter for screening mamm ogram for breast cancer 12/29/2017 07/19/2019 Well adult exam 06/26/2017 07/19/2019 Overview: last done: 07/14/2018 Encounter for screening for diabetes mellitus 06/26/19 18 07/28/2017 Multiple falls 01/08/2016 07/28/2017 Right hip pain 11/07/2014 07/19/2019 Anxiety 07/05/2013 07/19/2019 SUMMARY 05/04/2013 07/28/2017 Overview: 57y/o with history of chest pain, stress test 11-6 + for EKG changes, scan no infarct or ischemia, 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 She is awaiting decision on treatment options. After discussion with Dr Lindsey and her family, she prefers to have PCI, this is scheduled for this am, 05-06 documented as of this encounter (statuses as of 02/07/2023) [facility]01[facility]2019 History of Past illness Narrative* Problem Noted Date Diagnosed Date Resolved Date Colon cancer screening 07/14/201807/19 Encounter for screening mamm ogram for breast cancer 12/29/2017 07/19/2019 Well adult exam 06/26/2017 07/19/2019 Overview: last done: 07/14/2018 Encounter for screening for diabetes mellitus 06/26/19 18 07/28/2017 Multiple falls 01/08/2016 07/28/2017 Right hip pain 11/07/2014 07/19/2019 Anxiety 07/05/2013 07/19/2019 SUMMARY 05/04/2013 07/28/2017 Overview: 57y/o with history of chest pain, stress test 11-6 + for EKG changes, scan no infarct or ischemia, 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 She is awaiting decision on treatment options. After discussion with Dr Lindsey and her family, she prefers to have PCI, this is scheduled for this am, 1114 documented as of this encounter (statuses as of 02/13/2023) [facility]01[facility]2019 History of Past illness Narrative* Problem Noted Date Diagnosed Date Resolved Date Colon cancer screening 07/14/201807/19 Encounter for screening mamm ogram for breast cancer 12/29/2017 07/19/2019 Well adult exam 06/26/2017 07/19/2019 Overview: last done: 07/14/2018 Encounter for screening for diabetes mellitus 06/26/19 18 07/28/2017 Multiple falls 01/08/2016 07/28/2017 Right hip pain 11/07/2014 07/19/2019 Anxiety 07/05/2013 07/19/2019 SUMMARY 05/04/2013 07/28/2017 Overview: 57y/o with history of chest pain, stress test 11-6 + for EKG changes, scan no infarct or ischemia, 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 She is awaiting decision on treatment options. After discussion with Dr Lindsey and her family, she prefers to have PCI, this is scheduled for this am, 1114 documented as of this encounter (statuses as of 03/19/2023) [facility]01[facility]2019 History of Past illness Narrative* Problem Noted Date Diagnosed Date Resolved Date Colon cancer screening 07/14/201807/19 Encounter for screening mamm ogram for breast cancer 12/29/2017 07/19/2019 Well adult exam 06/26/2017 07/19/2019 Overview: last done: 07/14/2018 Encounter for screening for diabetes mellitus 06/26/19 18 07/28/2017 Multiple falls 01/08/2016 07/28/2017 Right hip pain 11/07/2014 07/19/2019 Anxiety 07/05/2013 07/19/2019 SUMMARY 05/04/2013 07/28/2017 Overview: 57y/o with history of chest pain, stress test 11-6 + for EKG changes, scan no infarct or ischemia, 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 She is awaiting decision on treatment options. After discussion with Dr Lindsey and her family, she prefers to have PCI, this is scheduled for this am, 14 documented as of this encounter (statuses as of 03/27/2023) [facility]01[facility]2019 History of Past illness Narrative* Problem Noted Date Diagnosed Date Resolved Date Colon cancer screening 07/14/201807/19 Encounter for screening mamm ogram for breast cancer 12/29/2017 07/19/2019 Well adult exam 06/26/2017 07/19/2019 Overview: last done: 07/14/2018 Encounter for screening for diabetes mellitus 06/26/19 18 07/28/2017 Multiple falls 01/08/2016 07/28/2017 Right hip pain 11/07/2014 07/19/2019 Anxiety 07/05/2013 07/19/2019 SUMMARY 05/04/2013 07/28/2017 Overview: 57y/o with history of chest pain, stress test 11-6 + for EKG changes, scan no infarct or ischemia, 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 She is awaiting decision on treatment options. After discussion with Dr Lindsey and her family, she prefers to have PCI, this is scheduled for this am, 14 documented as of this encounter (statuses as of 04/11/2023) [facility] History of Past illness Narrative* Problem Noted Date Diagnosed Date Resolved Date Colon cancer screening 07/14/201807/19 Encounter for screening mamm ogram for breast cancer 12/29/2017 07/19/2019 Well adult exam 06/26/2017 07/19/2019 Overview: last done: 07/14/2018 Encounter for screening for diabetes mellitus 06/26/19 18 07/28/2017 Multiple falls 01/08/2016 07/28/2017 Right hip pain 11/07/2014 07/19/2019 Anxiety 07/05/2013 07/19/2019 SUMMARY 05/04/2013 07/28/2017 Overview: 57y/o with history of chest pain, stress test 11-6 + for EKG changes, scan no infarct or ischemia, 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 She is awaiting decision on treatment options. After discussion with Dr Lindsey and her family, she prefers to have PCI, this is scheduled for this am, 14 documented as of this encounter (statuses as of 04/11/2023) [facility]01[facility]2019 History of Past illness Narrative* Problem Noted Date Diagnosed Date Resolved Date Colon cancer screening 07/14/201807/19 Encounter for screening mamm ogram for breast cancer 12/29/2017 07/19/2019 Well adult exam 06/26/2017 07/19/2019 Overview: last done: 07/14/2018 Encounter for screening for diabetes mellitus 06/26/19 18 07/28/2017 Multiple falls 01/08/2016 07/28/2017 Right hip pain 11/07/2014 07/19/2019 Anxiety 07/05/2013 07/19/2019 SUMMARY 05/04/2013 07/28/2017 Overview: 57y/o with history of chest pain, stress test 11-6 + for EKG changes, scan no infarct or ischemia, 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 She is awaiting decision on treatment options. After discussion with Dr Lindsey and her family, she prefers to have PCI, this is scheduled for this am, 05-06 documented as of this encounter (statuses as of 04/18/2023) [facility] History of Past illness Narrative* Problem Noted Date Diagnosed Date Resolved Date Colon cancer screening 07/14/201807/19 Encounter for screening mamm ogram for breast cancer 12/29/2017 07/19/2019 Well adult exam 06/26/2017 07/19/2019 Overview: last done: 07/14/2018 Encounter for screening for diabetes mellitus 06/26/19 18 07/28/2017 Multiple falls 01/08/2016 07/28/2017 Right hip pain 11/07/2014 07/19/2019 Anxiety 07/05/2013 07/19/2019 SUMMARY 05/04/2013 07/28/2017 Overview: 57y/o with history of chest pain, stress test 11-6 + for EKG changes, scan no infarct or ischemia, 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 She is awaiting decision on treatment options. After discussion with Dr Lindsey and her family, she prefers to have PCI, this is scheduled for this am, 14 documented as of this encounter (statuses as of 04/21/2023) [facility] History of Past illness Narrative* Problem Noted Date Diagnosed Date Resolved Date Colon cancer screening 07/14/201807/19 Encounter for screening mamm ogram for breast cancer 12/29/2017 07/19/2019 Well adult exam 06/26/2017 07/19/2019 Overview: last done: 07/14/2018 Encounter for screening for diabetes mellitus 06/26/19 18 07/28/2017 Multiple falls 01/08/2016 07/28/2017 Right hip pain 11/07/2014 07/19/2019 Anxiety 07/05/2013 07/19/2019 SUMMARY 05/04/2013 07/28/2017 Overview: 57y/o with history of chest pain, stress test 11-6 + for EKG changes, scan no infarct or ischemia, 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 She is awaiting decision on treatment options. After discussion with Dr Lindsey and her family, she prefers to have PCI, this is scheduled for this am, 14 documented as of this encounter (statuses as of 04/23/2023) [facility] History of Past illness Narrative* Problem Noted Date Diagnosed Date Resolved Date Colon cancer screening 07/14/201807/19 Encounter for screening mamm ogram for breast cancer 12/29/2017 07/19/2019 Well adult exam 06/26/2017 07/19/2019 Overview: last done: 07/14/2018 Encounter for screening for diabetes mellitus 06/26/19 18 07/28/2017 Multiple falls 01/08/2016 07/28/2017 Right hip pain 11/07/2014 07/19/2019 Anxiety 07/05/2013 07/19/2019 SUMMARY 05/04/2013 07/28/2017 Overview: 57y/o with history of chest pain, stress test 11-6 + for EKG changes, scan no infarct or ischemia, 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 She is awaiting decision on treatment options. After discussion with Dr Lindsey and her family, she prefers to have PCI, this is scheduled for this am, 1114 documented as of this encounter (statuses as of 05/01/2023) [facility] History of Past illness Narrative* Problem Noted Date Diagnosed Date Resolved Date Colon cancer screening 07/14/201807/19 Encounter for screening mamm ogram for breast cancer 12/29/2017 07/19/2019 Well adult exam 06/26/2017 07/19/2019 Overview: last done: 07/14/2018 Encounter for screening for diabetes mellitus 06/26/19 18 07/28/2017 Multiple falls 01/08/2016 07/28/2017 Right hip pain 11/07/2014 07/19/2019 Anxiety 07/05/2013 07/19/2019 SUMMARY 05/04/2013 07/28/2017 Overview: 57y/o with history of chest pain, stress test 11-6 + for EKG changes, scan no infarct or ischemia, 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 She is awaiting decision on treatment options. After discussion with Dr Lindsey and her family, she prefers to have PCI, this is scheduled for this am, 05-06 documented as of this encounter (statuses as of 05/12/2023) [facility]01-22-2019 History of Past illness Narrative* Problem Noted Date Diagnosed Date Resolved Date Colon cancer screening 07/14/201807/19 Encounter for screening mamm ogram for breast cancer 12/29/2017 07/19/2019 Well adult exam 06/26/2017 07/19/2019 Overview: last done: 07/14/2018 Encounter for screening for diabetes mellitus 06/26/19 18 07/28/2017 Multiple falls 01/08/2016 07/28/2017 Right hip pain 11/07/2014 07/19/2019 Anxiety 07/05/2013 07/19/2019 SUMMARY 05/04/2013 07/28/2017 Overview: 57y/o with history of chest pain, stress test 11-6 + for EKG changes, scan no infarct or ischemia, 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 She is awaiting decision on treatment options. After discussion with Dr Lindsey and her family, she prefers to have PCI, this is scheduled for this am, 1114 documented as of this encounter (statuses as of 05/30/2023) [facility]01-[facility]-2019 History of Past illness Narrative* Problem Noted Date Diagnosed Date Resolved Date Colon cancer screening 07/14/201807/19 Encounter for screening mamm ogram for breast cancer 12/29/2017 07/19/2019 Well adult exam 06/26/2017 07/19/2019 Overview: last done: 07/14/2018 Encounter for screening for diabetes mellitus 06/26/19 18 07/28/2017 Multiple falls 01/08/2016 07/28/2017 Right hip pain 11/07/2014 07/19/2019 Anxiety 07/05/2013 07/19/2019 SUMMARY 05/04/2013 07/28/2017 Overview: 57y/o with history of chest pain, stress test 11-6 + for EKG changes, scan no infarct or ischemia, 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 She is awaiting decision on treatment options. After discussion with Dr Lindsey and her family, she prefers to have PCI, this is scheduled for this am, 14 documented as of this encounter (statuses as of 06/11/2023) [facility]01[facility] History of Past illness Narrative* Problem Noted Date Diagnosed Date Resolved Date Colon cancer screening 07/14/201807/19 Encounter for screening mamm ogram for breast cancer 12/29/2017 07/19/2019 Well adult exam 06/26/2017 07/19/2019 Overview: last done: 07/14/2018 Encounter for screening for diabetes mellitus 06/26/19 18 07/28/2017 Multiple falls 01/08/2016 07/28/2017 Right hip pain 11/07/2014 07/19/2019 Anxiety 07/05/2013 07/19/2019 SUMMARY 05/04/2013 07/28/2017 Overview: 57y/o with history of chest pain, stress test 11-6 + for EKG changes, scan no infarct or ischemia, 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 She is awaiting decision on treatment options. After discussion with Dr Lindsey and her family, she prefers to have PCI, this is scheduled for this am, 05-06 documented as of this encounter (statuses as of 07/31/2023) [facility] History of Past illness Narrative* Problem Noted Date Diagnosed Date Resolved Date Colon cancer screening 07/14/201807/19 Encounter for screening mamm ogram for breast cancer 12/29/2017 07/19/2019 Well adult exam 06/26/2017 07/19/2019 Overview: last done: 07/14/2018 Encounter for screening for diabetes mellitus 06/26/19 18 07/28/2017 Multiple falls 01/08/2016 07/28/2017 Right hip pain 11/07/2014 07/19/2019 Anxiety 07/05/2013 07/19/2019 SUMMARY 05/04/2013 07/28/2017 Overview: 57y/o with history of chest pain, stress test 11-6 + for EKG changes, scan no infarct or ischemia, 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 She is awaiting decision on treatment options. After discussion with Dr Lindsey and her family, she prefers to have PCI, this is scheduled for this am, 05-06 documented as of this encounter (statuses as of 08/13/2023) [facility] History of Past illness Narrative* Problem Noted Date Diagnosed Date Resolved Date Colon cancer screening 07/14/201807/19 Encounter for screening mamm ogram for breast cancer 12/29/2017 07/19/2019 Well adult exam 06/26/2017 07/19/2019 Overview: last done: 07/14/2018 Encounter for screening for diabetes mellitus 06/26/19 18 07/28/2017 Multiple falls 01/08/2016 07/28/2017 Right hip pain 11/07/2014 07/19/2019 Anxiety 07/05/2013 07/19/2019 SUMMARY 05/04/2013 07/28/2017 Overview: 57y/o with history of chest pain, stress test 11-6 + for EKG changes, scan no infarct or ischemia, 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 She is awaiting decision on treatment options. After discussion with Dr Lindsey and her family, she prefers to have PCI, this is scheduled for this am, 05-06 documented as of this encounter (statuses as of 09/04/2023) [facility]01[facility] History of Past illness Narrative* Problem Noted Date Diagnosed Date Resolved Date Colon cancer screening 07/14/201807/19 Encounter for screening mamm ogram for breast cancer 12/29/2017 07/19/2019 Well adult exam 06/26/2017 07/19/2019 Overview: last done: 07/14/2018 Encounter for screening for diabetes mellitus 06/26/19 18 07/28/2017 Multiple falls 01/08/2016 07/28/2017 Right hip pain 11/07/2014 07/19/2019 Anxiety 07/05/2013 07/19/2019 SUMMARY 05/04/2013 07/28/2017 Overview: 57y/o with history of chest pain, stress test 11-6 + for EKG changes, scan no infarct or ischemia, cath 1112, LM disease, admitted after cath for possible CABG vs PCI. She is awaiting decision on treatment options. After discussion with Dr Lindsey and her family, she prefers to have PCI, this is scheduled for this am, 14 documented as of this encounter (statuses as of 09/05/2023) [facility]01[facility] History of Past illness Narrative* Problem Noted Date Diagnosed Date Resolved Date Colon cancer screening 07/14/201807/19 Encounter for screening mamm ogram for breast cancer 12/29/2017 07/19/2019 Well adult exam 06/26/2017 07/19/2019 Overview: last done: 07/14/2018 Encounter for screening for diabetes mellitus 06/26/19 18 07/28/2017 Multiple falls 01/08/2016 07/28/2017 Right hip pain 11/07/2014 07/19/2019 Anxiety 07/05/2013 07/19/2019 SUMMARY 05/04/2013 07/28/2017 Overview: 57y/o with history of chest pain, stress test 11-6 + for EKG changes, scan no infarct or ischemia, 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 She is awaiting decision on treatment options. After discussion with Dr Lindsey and her family, she prefers to have PCI, this is scheduled for this am, 14 documented as of this encounter (statuses as of 09/08/2023) [facility]01[facility] History of Past illness Narrative* Problem Noted Date Diagnosed Date Resolved Date Colon cancer screening 07/14/201807/19 Encounter for screening mamm ogram for breast cancer 12/29/2017 07/19/2019 Well adult exam 06/26/2017 07/19/2019 Overview: last done: 07/14/2018 Encounter for screening for diabetes mellitus 06/26/19 18 07/28/2017 Multiple falls 01/08/2016 07/28/2017 Right hip pain 11/07/2014 07/19/2019 Anxiety 07/05/2013 07/19/2019 SUMMARY 05/04/2013 07/28/2017 Overview: 57y/o with history of chest pain, stress test 11-6 + for EKG changes, scan no infarct or ischemia, 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 She is awaiting decision on treatment options. After discussion with Dr Lindsey and her family, she prefers to have PCI, this is scheduled for this am, 14 documented as of this encounter (statuses as of 09/09/2023) [facility]01[facility] History of Past illness Narrative* Problem Noted Date Diagnosed Date Resolved Date Colon cancer screening 07/14/201807/19 Encounter for screening mamm ogram for breast cancer 12/29/2017 07/19/2019 Well adult exam 06/26/2017 07/19/2019 Overview: last done: 07/14/2018 Encounter for screening for diabetes mellitus 06/26/19 18 07/28/2017 Multiple falls 01/08/2016 07/28/2017 Right hip pain 11/07/2014 07/19/2019 Anxiety 07/05/2013 07/19/2019 SUMMARY 05/04/2013 07/28/2017 Overview: 57y/o with history of chest pain, stress test 11-6 + for EKG changes, scan no infarct or ischemia, 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 She is awaiting decision on treatment options. After discussion with Dr Lindsey and her family, she prefers to have PCI, this is scheduled for this am, 05-06 documented as of this encounter (statuses as of 10/08/2023) [facility] History of Past illness Narrative* Problem Noted Date Diagnosed Date Resolved Date Colon cancer screening 07/14/201807/19 Encounter for screening mamm ogram for breast cancer 12/29/2017 07/19/2019 Well adult exam 06/26/2017 07/19/2019 Overview: last done: 07/14/2018 Encounter for screening for diabetes mellitus 06/26/19 18 07/28/2017 Multiple falls 01/08/2016 07/28/2017 Right hip pain 11/07/2014 07/19/2019 Anxiety 07/05/2013 07/19/2019 SUMMARY 05/04/2013 07/28/2017 Overview: 57y/o with history of chest pain, stress test 11-6 + for EKG changes, scan no infarct or ischemia, 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 She is awaiting decision on treatment options. After discussion with Dr Lindsey and her family, she prefers to have PCI, this is scheduled for this am, 05-06 documented as of this encounter (statuses as of 10/11/2023) [facility]01[facility] History of Past illness Narrative* Problem Noted Date Diagnosed Date Resolved Date Colon cancer screening 07/14/201807/19 Encounter for screening mamm ogram for breast cancer 12/29/2017 07/19/2019 Well adult exam 06/26/2017 07/19/2019 Overview: last done: 07/14/2018 Encounter for screening for diabetes mellitus 06/26/19 18 07/28/2017 Multiple falls 01/08/2016 07/28/2017 Right hip pain 11/07/2014 07/19/2019 Anxiety 07/05/2013 07/19/2019 SUMMARY 05/04/2013 07/28/2017 Overview: 57y/o with history of chest pain, stress test 11-6 + for EKG changes, scan no infarct or ischemia, cath 05-04, LM disease, admitted after cath for possible CABG vs PCI. She is awaiting decision on treatment options. After discussion with Dr Lindsey and her family, she prefers to have PCI, this is scheduled for this am, 05-06 documented as of this encounter (statuses as of 10/11/2023) [facility]11-01-[facility] Evaluation note* Diagnosis Onset Date Resolution Status Chest pain, unspecified acut e [id number] chronic History of coronary artery stent placement April, chronic Hyperlipidemia chronic Paroxysmal atrial fibrillation chronic Chest pain, unspecified acut e QUINTANILLA (dyspnea on exertion) [place] History of coronary artery stent placement April, chronic Hyperlipidemia chronic Paroxysmal atrial fibrillation [facility] Work Phone: 1(277) 168-276611-01-2013 Evaluation note* Diagnosis Onset Date Resolution Status Chest pain, unspecified acut e QUINTANILLA (dyspnea on exertion) [place] History of coronary artery stent placement April, chronic Hyperlipidemia chronic Paroxysmal atrial fibrillation [facility] Work Phone: 1(615) 989-759211-01-2013 Evaluation note* Diagnosis Onset Date Resolution Status Chest pain, unspecified acut e QUINTANILLA (dyspnea on exertion) [place] History of coronary artery stent placement April, chronic Hyperlipidemia chronic Paroxysmal atrial fibrillation chronic Shortness of breath acute [facility] Work Phone: 1(448) 981-852111-01-2013 Evaluation note* Diagnosis Onset Date Resolution Status Shortness of breath acute Dizziness acute QUINTANILLA (dyspnea on exertion) [place] History of coronary artery stent placement April, chronic HTN (hypertension) chronic Hyperlipidemia chronic Paroxysmal atrial fibrillation chronic Tobacco dependence syndrome chronic [facility] Work Phone: 1(479) 684-966011-01-2013 Evaluation note* Diagnosis Onset Date Resolution Status History of coronary artery stent placement April, chronic HTN (hypertension) chronic Hyperlipidemia chronic Paroxysmal atrial fibrillation chronic Tobacco dependence syndrome chronic Anemia acute Syncope acute Anxiety chronic 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 Chronic low back pain chroni c Dementia chronic Depression chronic Insomnia chronic Acute renal failure acute Hypokalemia acute Unstable angina acute [facility] Work Phone: 1(225) 645-972411-01-2013 Evaluation note* Diagnosis Onset Date Resolution Status History of coronary artery stent placement April, chronic HTN (hypertension) chronic Hyperlipidemia chronic Paroxysmal atrial fibrillation chronic Tobacco dependence syndrome chronic Anemia acute Syncope acute Anxiety chronic 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 Chronic low back pain chroni c Dementia chronic Depression chronic Insomnia chronic Acute renal failure acute Hypokalemia acute Unstable angina acute Paroxysmal atrial fibrillation [facility] Work Phone: 1([phone]) 435-423011-01-2013 Evaluation note* Diagnosis Onset Date Resolution Status History of coronary artery stent placement April, chronic HTN (hypertension) chronic Hyperlipidemia chronic Tobacco dependence syndrome chronic Anemia acute Syncope acute Anxiety chronic 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 Chronic low back pain chroni c Dementia chronic Depression chronic Insomnia chronic Acute renal failure resolved Hypokalemia resolved Hypokalemia acute Hypomagnesemia acute Renal failure acute ST segment changes on electrocardiography acute [facility] Work Phone: Consult note Author Mark Khalil [facility] Note Date/Time January 25, 2025 2:0 4pm [facility] Medical Records Department [address] [place] [address] Pre-Anesthesia Evaluation 01/25/25 1359 MR#: [id number] Acct: [id number] Name: YUTY Keeley Rep #:[id number] : 1955 69 From: Mark Dunne PCP: Dr. Magan Amador MD Status:REG SDC Y Race: C Location: [place] [address]- ASA Classification* ASA Classification ASA Classification: 3 Assessment & Plan Anesthesia* Anesthesia Assessment Anesthesia Assessment: Discussed sedation and/or anesthesia options, risks, benefits, and alternatives with patient/parents/legal guardian/POA. Questions invited. The patient/parents/legal guardian/POA seems to understand and agrees to proceedwith anesthesia plan. Reviewed the physical assessment, medical history, allergy history and patient home medications list prior to surgery/procedure/anesthetic and documented any changes. Performed airway and anesthesia risk assessments. Anesthesia Type Anesthesia Type: MAC History Source History Obtained from:: Patient and Chart Anesthesia Focused Assessment* Temperature: 97.9 F Pulse Rate: 81 Blood Pressure: 141/92 Respiratory Rate: 16 Pulse Ox: 100 Oxygen Delivery Method: Room Air Airway Assessment Mouth opens: >3 cm Mallampati Score: II Teeth Condition: Dentures and Missing Neck Range of motion (ROM): Limited ROM Labs Anesthesia Preop lab: CBC WBC 10.4 K/mm3 (4.4-11.0) 12/09/24 12:16 12/09/24 RBC 3.61 M/mm3 (4.2-5.4) L 12/09/24 12:16 12/09/24 Hgb 10.7 g/dL (12.0-15.0) L 12/09/24 12:16 5 Hct 31.6 % (37-47) L 12/09/24 12:16 12/09/24 Plt Count 417 K/mm3 (150-450) 12/09/24 12:16 12/09/24 CHEMISTRY Potassium 3.0 mmol/L (3.3-5.1) L 12/09/24 12:16 12/09/24 Sodium 141 mmol/L (133-145) 12/09/24 12:16 12/09/24 Magnesium 1.4 mg/dL (1.6-2.6) L 09/01/23 12:50 09/01/23 Phosphorus 3.9 mg/dL (2.5-4.9) 01/09/23 05:00 01/09/23 BUN 47 mg/dL (4-19) H 12/09/24 12:16 12/09/24 Creatinine 2.52 mg/dL (0.70-1.20) H 12/09/24 12:16 Glucose 109 mg/dL (70-99) H 12/09/24 12:16 12/09/24 POC Glucose 99 mg/dL (74-106) 01/25/25 12:44 01/25/25 TSH 1.11 uIU/mL (0.358-3.74) 09/01/23 12:50 COAG PT 14.0 SECONDS (11.7-14.9) 01/10/23 05:05 Pre-Assessment Diagnosis/Proposed Procedure Planned Operative Procedure(s): egd Anesthesia History Anesthesia History - brand advocate: Anesthesia History - brand advocate Hx Hospitalization Yes: nausea vomiting 01/20/25 12:44 Any Problems With Anesthesia No 01/20/25 12:44 Cholinesterase deficiency No 01/20/25 12:44 You/Your Family Experience No 01/20/25 12:44 fever (hyperthermia) with Relationship Recent Exposure to Contagious No 01/25/25 12:39 Disease Does patient have nerve No 01/20/25 12:44 stimulator Patient instructed to have device shut off --Does patient have Pacemaker No 01/25/25 12:39 or ICD? When Was Last Pacemaker Check QUESTION #4 FULL TEXT: You/Your Family Experience fever (hyperthermia) with Anesthesia Last Oral Intake Last Oral intake: Last Oral Intake NPO since 08:30 01/25/25 12:39 Meds taken in AM with sips of Yes 01/25/25 12:39 water? Meds patient instructed to see 01/25/25 12:39 take am of surgery PONV PONV - brand advocate: PONV - brand advocate Female Yes 01/20/25 12:44 HX of Motion Sickness Yes 01/20/25 12:44 HX of N/V After Surgery No 01/20/25 12:44 Non-Smoker No 01/20/25 12:44 Duration of Surgery greater No 01/20/25 12:44 than 60 minutes Number of Risk Factors 2 01/20/25 12:44 PONV Score Moderate Risk 01/20/25 12:44 Height & Weight Height & Weight: Anesthesia: Height & Weight Height 5 ft 5 in 01/25/25 12:39 Weight: 70.307 kg 01/25/25 12:39 Body Mass Index (BMI) 25.7 01/25/25 12:39 Respiratory Assessment Respiratory Assessment - brand advocate: Respiratory Tract Infection Hx - brand advocate Hx Respiratory Tract Infection No 01/20/25 12:44 STOP Sleep Apnea STOP Sleep Apnea - brand advocate: STOP Sleep Apnea - brand advocate Hx Hypertension Yes: on meds 01/20/25 12:44 Hx Sleep Apnea No 01/20/25 12:44 CPAP No 12/06/24 08:55 BIPAP Do you snore loudly (louder No 01/20/25 12:44 than talking or can be heard Do you often feel tired/ No 01/20/25 12:44 fatigued/ sleepy during daytime? Has anyone observed you stop No 01/20/25 12:44 breathing during sleep? STOP Results Negative 01/20/25 12:44 QUESTION #5 FULL TEXT : Do you snore loudly (louder than talking or can be heard through closed doors)? 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 Specify any problems Hx of Preganancy in last 3 No 01/20/25 12:44 Months Nurse Filling Out Transfusion JZOLLINGE 01/20/25 12:44 & Questions: Date: 01/20/25 01/20/25 12:44 Time: 12:46 01/20/25 12:44 Patient unable to answer at this time (ie. confused, unrespo /Reproduction History /Reproductive History - brand advocate: /Reproductive Hx- brand advocate Hx Now No 01/20/25 12:44 Gestational Age (in weeks): EDC: Hx Hx Para Hx Section SAB No 01/20/25 12:44 Active Medications Active Medications: Current Medications Generic Name Dose Route Start Last Admin Trade Name Freq PRN Reason Stop Dose Admin Lactated Ringer's 1,000 mls @ 15 mls/hr 01/25/25 12:30 01/25/25 12:51 IV 15 mls/hr .Q48H AARON Administration PFSH Medical History Wears glasses Wears dentures Dietary restriction Smoker Hypomagnesemia ST segment changes on electrocardiography Chest pain, unspecified History of left heart catheterization (LHC) (~02/13/16) Chronic low back pain Insomnia Anemia Nausea & vomiting Skin ulcer Rheumatoid arthritis Osteoarthritis High triglycerides High cholesterol HTN (hypertension) Chronic bronchitis Carpal tunnel syndrome Paroxysmal atrial fibrillation Fecal impaction of colon Irritable bowel syndrome with constipation Hyperlipidemia Anxiety Depression Restless legs syndrome GERD (gastroesophageal reflux disease) Diverticulitis Hypokalemia Atrial fibrillation with rapid ventricular response Sepsis Visual hallucinations Encephalopathy Abdominal pain Debility Atrial fibrillation Large bowel obstruction Constipation Colitis Altered mental status Failure of outpatient treatment Sigmoid diverticulitis Tobacco dependence syndrome History of Clostridium difficile infection Home Medications ?Medication ?Instructions ?Recorded ?Last Taken ?Type ezetimibe 10 mg tablet 10 mg PO DAILY CHOLESTEROL 0 01/27/19 01/08/23 History atorvastatin 80 mg tablet 80 mg PO QHS CHOLESTEROL #30 tabs 09/20/19 01/07/23 Rx fenofibrate 54 mg tablet 54 mg PO DAILY TRIGYCERIDES 04/18/20 01/08/23 History fluoxetine 60 mg tablet 60 mg PO QDAY #90 tabs 11/30 Unknown Rx rivastigmine 9.5 mg/24 hour 9.5 mg transdermal QDAY #3 0 ea 11/30/24 Unknown Rx transdermal patch bupropion HCl 150 mg 24 hr tablet, 300 mg PO QAM 12/09 Unknown History extended release (Wellbutrin XL) pioglitazone 30 mg tablet 30 mg PO QDAY 12/09/2401/25 History gabapentin 100 mg capsule 100 mg PO TIDCM #90 caps Unknown Rx omeprazole 20 mg capsule,delayed 20 mg PO BID #60 caps 12/10/24 01/25/25 Rx release ondansetron 4 mg disintegrating 4 mg PO Q8H PRN nausea and 12/10/24 Unknown Rx tablet vomiting #30 tabs potassium chloride 40 mEq/15 mL 40 meq (15 mL) PO ONCE #15 mL 12/10/24 Unknown Rx oral liquid asadhf-yujmnbbv-jynwoil 1 cap PO TID #300 caps 12/13 Unknown Rx 36,000-114,000-180,000 unit capsule,delay rel (Creon) diltiazem HCl 180 mg 180 mg PO DAILY 01/20/2510/15 History capsule,extended release 24 hr (Cardizem CD) tizanidine 4 mg tablet 4 mg PO .hs 01/20/25 Unknown History Allergy/AdvReac Type Severity Reaction Status Date / Time bee venom protein (honey bee) Allergy Anaphylaxis Verified 01/25/25 12:38 [id number] Reductase AdvReac Severe Myalgias Verified 01/25/25 12:38 Inhibitor promethazine HCl (From AdvReac Vomiting Verified 01/25/25 12:38 Phenergan) tuberculin, purified protein AdvReac Swelling Verified 01/25/25 12:38 deriva Family History Mother Heart disease Myocardial infarction CVA (cerebral vascular accident) Sister Diabetes Brother Parkinson disease Surgical History Hx of colostomy Cataract extraction status of left eye History of hand surgery History of laparoscopy History of cholecystectomy History of hysterectomy History of colostomy History of creation of ostomy History of partial colectomy History of cardioversion (09/02/19) Social History Smoking Status: Current some day smoker tobacco type: cigarettes Tobacco: How many years used: 40 alcohol intake: never substance use type: does not use caffeine: Yes Type: carbonated beverages and coffee what type of physical activity do you participate in: walking frequency: 1-2 times per week brandon/church: Jew seatbelt use: always Review of Systems (Anesthesia) ROS Narrative System reviewed and no additional complaints, except as documented. 01/25/25 1404 <Electronically signed by Mark Khalil MD> Date _ Mark Khalil MD Cosigner Signature: Date CC: ~ Signed [facility] Work Phone: Consult note Author Mark Mao [facility] Note Date/Time January 25, 2025 2:3 2pm [facility] Medical Records Department [address] [place] [address] Anesthesia Postop Eval I 01/25/25 1432 MR#: [id number] Acct: [id number] Name: TY YU Rep #:[id number] : 1955 69 From: Mark DEVINE PCP: Dr. Magan Amador MD Status:REG [facility] Y Race: C Location: [place] [address] Anesthesia: Postop Eval I Current Vital Signs Temperature: 97 F Pulse Rate: 75 Blood Pressure: 100/66 Respiratory Rate: 16 Pulse Ox: 99 Assessment Airway patent: Yes Spontaneous unlabored respirations: Yes nausea: No Vomiting: No Anesthesia Complication: No Fluid Hydration Crystalloid volume administer (ml): 500 Total IV fluid infused: 500 Progress Note Anesthesia document: Postop Eval 1 completed: Yes 01/25/25 1432 <Electronically signed by Mark Mao CRNA> Date _ Mark Mao [employer]PERVIS[employer] Cosigner Signature: Date CC: ~ Signed [facility] Work Phone: Evaluation note* Diagnosis Stage 3b chronic kidney disease (HCC)- [facility] Insomnia, unspecified type [facility] Encounter for screening mammogram for breast cancer [facility] Diagnosis Pain in left hip- Primary Pain in joint, pelvic region and thigh [facility] Diagnosis Pain in left hip Pain in joint, pelvic region and thigh Pain in right hip Pain in joint, pelvic region and thigh [facility] Diagnosis Mixed hyperlipidemia 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 [facility] Diagnosis Chronic right shoulder pain- Primary Pain in joint, shoulder region Impingement syndrome of right shoulder Other affections of shoulder region, not elsewhere classified Primary osteoarthritis of right hip Primary localized osteoarthrosis, pelvic region and thigh Chronic pain of right hip [facility] Diagnosis Hip pain- Primary Pain in joint, pelvic region and thigh [facility] Diagnosis Encounter for Medicare annual wellness exam- Primary Routine general medical examination at a health care facility Advance directive discussed with patient Other specified counseling Glaucoma suspect of both eyes Preglaucoma, unspecified Cataract, unspecified cataract type, unspecified laterality Ex-smoker Personal history of tobacco use, presenting hazards to health [place] Essential hypertension Unspecified essential hypertension Mixed hyperlipidemia 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 Migraine without aura and without status migrainosus, not intractable Migraine without aura, without mention of intractable migraine without mention of status migrainosus Gastroesophageal reflux disease without esophagitis Esophageal reflux Moderate pulmonary hypertension (HCC) Paroxysmal atrial fibrillation (HCC) Atrial fibrillation Stage 3b chronic kidney disease (HCC) Type 2 diabetes mellitus without complication, without long-term current use of insulin (HCC) Abnormal thyroid blood test Nonspecific abnormal results of thyroid function study Bilateral carotid artery disease, unspecified type (HCC) Encounter for immunization Need for other specified prophylactic vaccination against single bacterial disease Hot flashes Symptomatic menopausal or female climacteric states Fatigue, unspecified type Screening mammogram for breast cancer [facility] Diagnosis Essential hypertension- Primary Unspecified essential hypertension [facility] Diagnosis Essential hypertension- Primary Unspecified essential hypertension [place] Elevated plasma metanephrines Other nonspecific findings on examination of blood [facility] Diagnosis Mixed hyperlipidemia 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 documented in this encounter [facility]No assessment [facility]* Diagnosis Type 2 diabetes mellitus without complication, without long-term current use of insulin ([facility])- Primary documented in this encounter [facility] note* Diagnosis Traumatic tear of left rotator cuff, unspecified tear extent, subsequent encounter- Primary Status post rotator cuff repair Other postprocedural status [facility] Diagnosis Chronic right shoulder pain- Primary Pain in joint, shoulder region Impingement syndrome of right shoulder Other affections of shoulder region, not elsewhere classified Acute pain of left shoulder Shoulder impingement Other affections of shoulder region, not elsewhere classified documented in this encounter [facility] note* Diagnosis Other symptoms and signs involving the nervous system- Primary Transient cerebral ischemia, unspecified type Right sided weakness Muscle weakness (generalized) Right foot drop Other acquired deformity of ankle and foot Numbness of right foot Dementia with behavioral disturbance ([facility]) Dementia, unspecified, with behavioral disturbance Mixed hyperlipidemia 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 [facility] Diagnosis Bilateral carotid artery stenosis Occlusion and stenosis of carotid artery without mention of cerebral infarction [facility] Diagnosis Chest pressure- Primary Other chest pain QUINTANILLA (dyspnea on exertion) Other dyspnea and respiratory abnormality 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 [facility] Diagnosis Hospital discharge follow-up- Primary Other follow-up examination CINDY (acute kidney injury) (HCC) Acute kidney failure, unspecified Unstable angina (HCC) Intermediate coronary syndrome QUINTANILLA (dyspnea on exertion) Other dyspnea and respiratory abnormality Gastroesophageal reflux disease without esophagitis Esophageal reflux Type 2 diabetes mellitus without complication, without long-term current use of insulin (HCC) Stage 3b chronic kidney disease (HCC) Colostomy in place (HCC) Colostomy status SOB (shortness of breath) Shortness of breath [facility] Diagnosis Tick bite, unspecified site, initial encounter- Primary [facility]* Diagnosis Gastritis without bleeding, unspecified chronicity, unspecified gastritis type- Primary CINDY (acute kidney injury) (HCC) Acute kidney failure, unspecified Dehydration Essential hypertension Unspecified essential hypertension Type 2 diabetes mellitus without complication, without long-term current use of insulin ([facility]) [facility]* Diagnosis Tobacco abuse Tobacco use disorder [facility]* Diagnosis Closed fracture of distal end of right radius, unspecified fracture morphology, initial encounter- Primary [facility]* Diagnosis Encounter for screening mammogram for breast cancer [facility]* Diagnosis 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- Primary Essential hypertension Unspecified essential hypertension Gastroesophageal reflux disease without esophagitis Esophageal reflux Iron deficiency anemia, unspecified iron deficiency anemia type Mixed hyperlipidemia Stage 3b chronic kidney disease (HCC) Type 2 diabetes mellitus without complication, without long-term current use of insulin (HCC) Medication management Encounter for long-term (current) use of other medications [facility]* Diagnosis Tobacco use disorder documented in this encounter [facility] note* Diagnosis Onset Date Resolution Status Myalgia acute Chronic low back pain chroni c Dementia [facility] Work Phone: Evaluation note* Diagnosis Encounter for Medicare annual wellness exam- Primary Routine general medical examination at a health care facility Encounter for immunization Need for other specified prophylactic vaccination against single bacterial disease Screening for osteoporosis Special screening for osteoporosis Asymptomatic menopause Type 2 diabetes mellitus without complication, without long-term current use of insulin (HCC) Asymptomatic postmenopausal status Insomnia, unspecified type Migraine without aura and without status migrainosus, not intractable Migraine without aura, without mention of intractable migraine without mention of status migrainosus 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 Essential hypertension Unspecified essential hypertension Mixed hyperlipidemia Paroxysmal atrial fibrillation (HCC) Atrial fibrillation Stage 3b chronic kidney disease (HCC) Medication management Encounter for long-term (current) use of other medications Age-related osteoporosis without current pathological fracture Senile osteoporosis Schatzki's ring Congenital tracheoesophageal fistula, esophageal atresia and stenosis Moderate pulmonary hypertension (HCC) Gastroesophageal reflux disease without esophagitis Esophageal reflux Current moderate episode of major depressive disorder without prior episode (HCC) Dementia with behavioral disturbance (HCC) Dementia, unspecified, with behavioral disturbance Bilateral carotid artery stenosis Occlusion and stenosis of carotid artery without mention of cerebral infarction Diabetic eye exam ([facility]) Type II or unspecified type diabetes mellitus without mention of complication, not stated as uncontrolled Living will in place documented in this encounter [facility] note* Diagnosis Asymptomatic postmenopausal status Age-related osteoporosis without current pathological fracture Senile osteoporosis documented in this encounter [facility] note* Diagnosis Encounter for screening mammogram for breast cancer documented in this encounter [facility] note* Diagnosis Age-related osteoporosis without current pathological fracture- Primary Senile osteoporosis Lumbar degenerative disc disease Degeneration of lumbar or lumbosacral intervertebral disc documented in this encounter [facility] note* Diagnosis Pre-operative examination- Primary Preoperative examination, unspecified Arthritis of left hand Unspecified arthropathy, hand Fibromyalgia Mylagia and myositis, unspecified Insomnia, unspecified type RLS (restless legs syndrome) Restless legs syndrome (RLS) Dementia with behavioral disturbance, unspecified dementia type Age-related osteoporosis without current pathological fracture Senile osteoporosis 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 Essential hypertension Unspecified essential hypertension Mixed hyperlipidemia Ex-smoker Personal history of tobacco use, presenting hazards to [facility] Colostomy in place ([facility]) Colostomy status Gastroesophageal reflux disease without esophagitis Esophageal reflux Stage 3b chronic kidney disease ([facility]) Type 2 diabetes mellitus without complication, without long-term current use of insulin ([facility]) Iron deficiency anemia, unspecified iron deficiency anemia type Lumbar degenerative disc disease Degeneration of lumbar or lumbosacral intervertebral disc Paroxysmal atrial fibrillation (HCC) Atrial fibrillation Valvular heart disease Endocarditis, valve unspecified, unspecified cause Moderate pulmonary hypertension (HCC) Bilateral carotid artery stenosis Occlusion and stenosis of carotid artery without mention of cerebral infarction Essential hypertension- Primary Unspecified essential hypertension Mixed hyperlipidemia Paroxysmal atrial fibrillation (HCC) Atrial fibrillation Type 2 diabetes mellitus without complication, without long-term current use of insulin ([facility]) Stage 3b chronic kidney disease (HCC) Iron deficiency anemia, unspecified iron deficiency anemia type 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 Gastroesophageal reflux disease without esophagitis Esophageal reflux Schatzki's ring Congenital tracheoesophageal fistula, esophageal atresia and stenosis Current moderate episode of major depressive disorder without prior episode (HCC) Dementia with behavioral disturbance (HCC) Dementia, unspecified, with behavioral disturbance Abnormal thyroid blood test Nonspecific abnormal results of thyroid function study Medication management Encounter for long-term (current) use of other medications documented in this encounter [facility] note* Diagnosis Pre-operative examination- Primary Preoperative examination, unspecified Arthritis of left hand Unspecified arthropathy, hand Fibromyalgia Mylagia and myositis, unspecified Insomnia, unspecified type RLS (restless legs syndrome) Restless legs syndrome (RLS) Dementia with behavioral disturbance, unspecified dementia type Age-related osteoporosis without current pathological fracture Senile osteoporosis 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 Essential hypertension Unspecified essential hypertension Mixed hyperlipidemia Ex-smoker Personal history of tobacco use, presenting hazards to health Colostomy in place ([facility]) Colostomy status Gastroesophageal reflux disease without esophagitis Esophageal reflux Stage 3b chronic kidney disease ([facility]) Type 2 diabetes mellitus without complication, without long-term current use of insulin ([facility]) Iron deficiency anemia, unspecified iron deficiency anemia type Lumbar degenerative disc disease Degeneration of lumbar or lumbosacral intervertebral disc Paroxysmal atrial fibrillation ([facility]) Atrial fibrillation Valvular heart disease Endocarditis, valve unspecified, unspecified cause Moderate pulmonary hypertension ([facility]) Bilateral carotid artery stenosis Occlusion and stenosis of carotid artery without mention of cerebral infarction Anemia, unspecified type- Primary documented in this encounter [facility] note* Diagnosis Pre-operative examination- Primary Preoperative examination, unspecified Arthritis of left hand Unspecified arthropathy, hand Fibromyalgia Mylagia and myositis, unspecified Insomnia, unspecified type RLS (restless legs syndrome) Restless legs syndrome (RLS) Dementia with behavioral disturbance, unspecified dementia type Age-related osteoporosis without current pathological fracture Senile osteoporosis 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 Essential hypertension Unspecified essential hypertension Mixed hyperlipidemia Ex-smoker Personal history of tobacco use, presenting hazards to health Colostomy in place ([facility]) Colostomy status Gastroesophageal reflux disease without esophagitis Esophageal reflux Stage 3b chronic kidney disease ([facility]) Type 2 diabetes mellitus without complication, without long-term current use of insulin ([facility]) Iron deficiency anemia, unspecified iron deficiency anemia type Lumbar degenerative disc disease Degeneration of lumbar or lumbosacral intervertebral disc Paroxysmal atrial fibrillation ([facility]) Atrial fibrillation Valvular heart disease Endocarditis, valve unspecified, unspecified cause Moderate pulmonary hypertension (HCC) Bilateral carotid artery stenosis Occlusion and stenosis of carotid artery without mention of cerebral infarction Right hip pain- Primary Pain in joint, pelvic region and thigh [facility]* Diagnosis Pre-operative examination- Primary Preoperative examination, unspecified Arthritis of left hand Unspecified arthropathy, hand Fibromyalgia Mylagia and myositis, unspecified Insomnia, unspecified type RLS (restless legs syndrome) Restless legs syndrome (RLS) Dementia with behavioral disturbance, unspecified dementia type Age-related osteoporosis without current pathological fracture Senile osteoporosis 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 Essential hypertension Unspecified essential hypertension Mixed hyperlipidemia Ex-smoker Personal history of tobacco use, presenting hazards to health Colostomy in place ([facility]) Colostomy status Gastroesophageal reflux disease without esophagitis Esophageal reflux Stage 3b chronic kidney disease ([facility]) Type 2 diabetes mellitus without complication, without long-term current use of insulin (HCC) Iron deficiency anemia, unspecified iron deficiency anemia type Lumbar degenerative disc disease Degeneration of lumbar or lumbosacral intervertebral disc Paroxysmal atrial fibrillation (HCC) Atrial fibrillation Valvular heart disease Endocarditis, valve unspecified, unspecified cause Moderate pulmonary hypertension (HCC) Bilateral carotid artery stenosis Occlusion and stenosis of carotid artery without mention of cerebral infarction Breast skin changes- Primary Changes in skin texture Encounter for immunization Need for other specified prophylactic vaccination against single bacterial disease documented in this encounter [facility] note* Diagnosis Pre-operative examination- Primary Preoperative examination, unspecified Arthritis of left hand Unspecified arthropathy, hand Fibromyalgia Mylagia and myositis, unspecified Insomnia, unspecified type RLS (restless legs syndrome) Restless legs syndrome (RLS) Dementia with behavioral disturbance, unspecified dementia type Age-related osteoporosis without current pathological fracture Senile osteoporosis 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 Essential hypertension Unspecified essential hypertension Mixed hyperlipidemia Ex-smoker Personal history of tobacco use, presenting hazards to health Colostomy in place ([facility]) Colostomy status Gastroesophageal reflux disease without esophagitis Esophageal reflux Stage 3b chronic kidney disease (HCC) Type 2 diabetes mellitus without complication, without long-term current use of insulin (HCC) Iron deficiency anemia, unspecified iron deficiency anemia type Lumbar degenerative disc disease Degeneration of lumbar or lumbosacral intervertebral disc Paroxysmal atrial fibrillation (HCC) Atrial fibrillation Valvular heart disease Endocarditis, valve unspecified, unspecified cause Moderate pulmonary hypertension (HCC) Bilateral carotid artery stenosis Occlusion and stenosis of carotid artery without mention of cerebral infarction Primary osteoarthritis of right hip- Primary Primary localized osteoarthrosis, pelvic region and thigh documented in this encounter [facility] note* Diagnosis Pre-operative examination- Primary Preoperative examination, unspecified Arthritis of left hand Unspecified arthropathy, hand Fibromyalgia Mylagia and myositis, unspecified Insomnia, unspecified type RLS (restless legs syndrome) Restless legs syndrome (RLS) Dementia with behavioral disturbance, unspecified dementia type Age-related osteoporosis without current pathological fracture Senile osteoporosis 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 Essential hypertension Unspecified essential hypertension Mixed hyperlipidemia Ex-smoker Personal history of tobacco use, presenting hazards to health Colostomy in place ([facility]) Colostomy status Gastroesophageal reflux disease without esophagitis Esophageal reflux Stage 3b chronic kidney disease ([facility]) Type 2 diabetes mellitus without complication, without long-term current use of insulin ([facility]) Iron deficiency anemia, unspecified iron deficiency anemia type Lumbar degenerative disc disease Degeneration of lumbar or lumbosacral intervertebral disc Paroxysmal atrial fibrillation ([facility]) Atrial fibrillation Valvular heart disease Endocarditis, valve unspecified, unspecified cause Moderate pulmonary hypertension ([facility]) Bilateral carotid artery stenosis Occlusion and stenosis of carotid artery without mention of cerebral infarction Right hip pain Pain in joint, pelvic region and thigh documented in this encounter [facility] note* Diagnosis Pre-operative examination- Primary Preoperative examination, unspecified Arthritis of left hand Unspecified arthropathy, hand Fibromyalgia Mylagia and myositis, unspecified Insomnia, unspecified type RLS (restless legs syndrome) Restless legs syndrome (RLS) Dementia with behavioral disturbance, unspecified dementia type Age-related osteoporosis without current pathological fracture Senile osteoporosis 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 Essential hypertension Unspecified essential hypertension Mixed hyperlipidemia Ex-smoker Personal history of tobacco use, presenting hazards to health Colostomy in place ([facility]) Colostomy status Gastroesophageal reflux disease without esophagitis Esophageal reflux Stage 3b chronic kidney disease ([facility]) Type 2 diabetes mellitus without complication, without long-term current use of insulin ([facility]) Iron deficiency anemia, unspecified iron deficiency anemia type Lumbar degenerative disc disease Degeneration of lumbar or lumbosacral intervertebral disc Paroxysmal atrial fibrillation (HCC) Atrial fibrillation Valvular heart disease Endocarditis, valve unspecified, unspecified cause Moderate pulmonary hypertension (HCC) Bilateral carotid artery stenosis Occlusion and stenosis of carotid artery without mention of cerebral infarction Breast skin changes- Primary Changes in skin texture [facility] Pre-operative examination- Primary Preoperative examination, unspecified Arthritis of left hand Unspecified arthropathy, hand Fibromyalgia Mylagia and myositis, unspecified Insomnia, unspecified type RLS (restless legs syndrome) Restless legs syndrome (RLS) Dementia with behavioral disturbance, unspecified dementia type Age-related osteoporosis without current pathological fracture Senile osteoporosis 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 Essential hypertension Unspecified essential hypertension Mixed hyperlipidemia Ex-smoker Personal history of tobacco use, presenting hazards to [facility] Colostomy in place ([facility]) Colostomy status Gastroesophageal reflux disease without esophagitis Esophageal reflux Stage 3b chronic kidney disease ([facility]) Type 2 diabetes mellitus without complication, without long-term current use of insulin ([facility]) Iron deficiency anemia, unspecified iron deficiency anemia type Lumbar degenerative disc disease Degeneration of lumbar or lumbosacral intervertebral disc Paroxysmal atrial fibrillation ([facility]) Atrial fibrillation Valvular heart disease Endocarditis, valve unspecified, unspecified cause Moderate pulmonary hypertension ([facility]) Bilateral carotid artery stenosis Occlusion and stenosis of carotid artery without mention of cerebral infarction Encounter for Medicare annual wellness exam- Primary Routine general medical examination at a health care facility Type 2 diabetes mellitus with stage 3b chronic kidney disease, without long-term current use of insulin ([facility]) Essential hypertension Unspecified essential hypertension Mixed hyperlipidemia Gastroesophageal reflux disease without esophagitis Esophageal reflux Migraine without aura and without status migrainosus, not intractable Migraine without aura, without mention of intractable migraine without mention of status migrainosus 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 Stage 3b chronic kidney disease (HCC) Paroxysmal atrial fibrillation (HCC) Atrial fibrillation Moderate pulmonary hypertension ([facility]) Iron deficiency anemia, unspecified iron deficiency anemia type Dementia with behavioral disturbance ([facility]) Dementia, unspecified, with behavioral disturbance Bilateral carotid artery stenosis Occlusion and stenosis of carotid artery without mention of cerebral infarction Current moderate episode of major depressive disorder without prior episode ([facility]) Fibromyalgia Mylagia and myositis, unspecified Insomnia, unspecified type RLS (restless legs syndrome) Restless legs syndrome (RLS) Colostomy in place (HCC) Colostomy status Age-related osteoporosis without current pathological fracture Senile osteoporosis Diabetic eye exam ([facility]) Type II or unspecified type diabetes mellitus without mention of complication, not stated as uncontrolled Medication management Encounter for long-term (current) use of other medications [facility] Pre-operative examination- Primary Preoperative examination, unspecified Arthritis of left hand Unspecified arthropathy, hand Fibromyalgia Mylagia and myositis, unspecified Insomnia, unspecified type RLS (restless legs syndrome) Restless legs syndrome (RLS) Dementia with behavioral disturbance, unspecified dementia type Age-related osteoporosis without current pathological fracture Senile osteoporosis 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 Essential hypertension Unspecified essential hypertension Mixed hyperlipidemia Ex-smoker Personal history of tobacco use, presenting hazards to health Colostomy in place ([facility]) Colostomy status Gastroesophageal reflux disease without esophagitis Esophageal reflux Stage 3b chronic kidney disease ([facility]) Type 2 diabetes mellitus without complication, without long-term current use of insulin ([facility]) Iron deficiency anemia, unspecified iron deficiency anemia type Lumbar degenerative disc disease Degeneration of lumbar or lumbosacral intervertebral disc Paroxysmal atrial fibrillation ([facility]) Atrial fibrillation Valvular heart disease Endocarditis, valve unspecified, unspecified cause Moderate pulmonary hypertension ([facility]) Bilateral carotid artery stenosis Occlusion and stenosis of carotid artery without mention of cerebral infarction Breast skin changes Changes in skin texture documented in this encounter [facility] note* Diagnosis Pre-operative examination- Primary Preoperative examination, unspecified Arthritis of left hand Unspecified arthropathy, hand Fibromyalgia Mylagia and myositis, unspecified Insomnia, unspecified type RLS (restless legs syndrome) Restless legs syndrome (RLS) Dementia with behavioral disturbance, unspecified dementia type Age-related osteoporosis without current pathological fracture Senile osteoporosis 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 Essential hypertension Unspecified essential hypertension Mixed hyperlipidemia Ex-smoker Personal history of tobacco use, presenting hazards to health Colostomy in place ([facility]) Colostomy status Gastroesophageal reflux disease without esophagitis Esophageal reflux Stage 3b chronic kidney disease ([facility]) Type 2 diabetes mellitus without complication, without long-term current use of insulin ([facility]) Iron deficiency anemia, unspecified iron deficiency anemia type Lumbar degenerative disc disease Degeneration of lumbar or lumbosacral intervertebral disc Paroxysmal atrial fibrillation ([facility]) Atrial fibrillation Valvular heart disease Endocarditis, valve unspecified, unspecified cause Moderate pulmonary hypertension ([facility]) Bilateral carotid artery stenosis Occlusion and stenosis of carotid artery without mention of cerebral infarction Breast skin changes Changes in skin texture documented in this encounter [facility] note* Diagnosis Pre-operative examination- Primary Preoperative examination, unspecified Arthritis of left hand Unspecified arthropathy, hand Fibromyalgia Mylagia and myositis, unspecified Insomnia, unspecified type RLS (restless legs syndrome) Restless legs syndrome (RLS) Dementia with behavioral disturbance, unspecified dementia type Age-related osteoporosis without current pathological fracture Senile osteoporosis 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 Essential hypertension Unspecified essential hypertension Mixed hyperlipidemia Ex-smoker Personal history of tobacco use, presenting hazards [facility] Colostomy in place (HCC) Colostomy status Gastroesophageal reflux disease without esophagitis Esophageal reflux Stage 3b chronic kidney disease (HCC) Type 2 diabetes mellitus without complication, without long-term current use of insulin (HCC) Iron deficiency anemia, unspecified iron deficiency anemia type Lumbar degenerative disc disease Degeneration of lumbar or lumbosacral intervertebral disc Paroxysmal atrial fibrillation ([facility]) Atrial fibrillation Valvular heart disease Endocarditis, valve unspecified, unspecified cause Moderate pulmonary hypertension ([facility]) Bilateral carotid artery stenosis Occlusion and stenosis of carotid artery without mention of cerebral infarction Bilateral carotid artery stenosis- Primary Occlusion and stenosis of carotid artery without mention of cerebral infarction documented in this encounter [facility] for referral (narrative)* Diagnostic Procedure Only (Routine) - Pending Review Specialty Diagnoses / Procedures Referred By Hailey palacios Referred To Contact [facility] Diagnoses Encounter for screening mammogram for breast cancer Procedures FILIBERTO SCREENING SCREENING MAMMOGRAPHY BI 2-VIEW BREAST INC CAD Magan Amador MD [address] [place] [address] [facility] [address] [place] [address] Referral ID Status Reason Start Date Expiration Date Visits Requested Visits Authorized [id number] Pending Review Auto-Generat ed Referral 12/19/2021 01/18/2023 1 1 [facility] for referral (narrative)* Diagnostic Procedure Only (Routine) - Pending Review Specialty Diagnoses / Procedures Referred By Hailey palacios Referred To Contact [facility] Diagnoses Pain in left hip Procedures XR HIP GENERAL 3V PELV/AP/LAT LEFT RADEX HIP UNILATERAL WITH PELVIS 2-3 VIEWS Brain Ivy MD [address] [place] [address] X[facility] Imaging Referral ID Status Reason Start Date Expiration Date Visits Requested Visits Authorized [id number] Pending Review Auto-Generat ed Referral 01/23/2022 02/22/2023 1 1 [facility] for referral (narrative)* Diagnostic Procedure Only (Routine) - Closed Specialty Diagnoses / Procedures Referred By Contac t Referred To Contact X[facility] IMAGING Diagnoses Pain in right hip Procedures XR HIP GENERAL 3V PELV/AP/LAT RIGHT RADEX HIP UNILATERAL WITH PELVIS 2-3 VIEWS Brain Ivy MD [address] [place] [address] Xr Imaging Referral ID Status Reason Start Date Expiration Date V isits Requested Visits Authorized [id number] Closed Auto-Generate d Referral 01/24/2022 02/23/2023 1 1 [facility] for referral (narrative)* Diagnostic Procedure Only (Routine) - Pending Review Specialty Diagnoses / Procedures Referred By Contac t Referred To Contact [facility] Diagnoses Screening mammogram for breast cancer Procedures FILIBERTO SCREENING SCREENING MAMMOGRAPHY BI 2-VIEW BREAST INC CAD Heaven Garg PA-C [address] [place] [address] [facility] [address] [place] [address] Referral ID Status Reason Start Date Expiration Date Visits Requested Visits Authorized [id number] Pending Review Auto-Generat ed Referral 2 06/07/2023 1 1 [facility] for referral (narrative)* Outpatient Procedure (Routine) - Closed Specialty Diagnoses / Procedures Referred By Contac t Referred To Contact [facility] Diagnoses Chest pressure Procedures ECG COMPLETE ECG ROUTINE ECG W/LEAST 12 LDS W/I&R Heaven Garg PA-C [address] [place] [address] [facility] [place] [address] [place] [address] Referral ID Status Reason Start Date Expiration Date V isits Requested Visits Authorized [id number] Closed Auto-Generate d Referral 12/26/2022 12/26/2023 1 1 [facility] for referral (narrative)* Diagnostic Procedure Only (Routine) - Closed Specialty Diagnoses / Procedures Referred By Contac t Referred To Contact XR IMAGING Diagnoses Closed fracture of distal end of right radius, unspecified fracture morphology, initial encounter Procedures XR WRIST GENERAL 3V PA/LAT/OBL RIGHT RADEX WRIST COMPLETE MINIMUM 3 VIEWS Brain Ivy MD [address] [facility] [place] [address] [place] [address] Referral ID Status Reason Start Date Expiration Date V isits Requested Visits Authorized [id number] Closed Auto-Generate d Referral 03/13/2023 04/11/2024 1 1 [facility] for referral (narrative)* Diagnostic Procedure Only (Routine) - Pending Review Specialty Diagnoses / Procedures Referred By Contac t Referred To Contact [facility] Diagnoses Encounter for screening mammogram for breast cancer Procedures FILIBERTO SCREENING SCREENING MAMMOGRAPHY BI 2-VIEW BREAST INC CAD Magan Amador MD [address] [place] [address] [facility] [address] [place] [address] Referral ID Status Reason Start Date Expiration Date Visits Requested Visits Authorized [id number] Pending Review Auto-Generat ed Referral 05/15/2024 1 1 [facility] for referral (narrative)* Diagnostic Procedure Only (Routine) - Pending Review Specialty Diagnoses / Procedures Referred By Contac t Referred To Contact XR IMAGING Diagnoses Asymptomatic postmenopausal status Age-related osteoporosis without current pathological fracture Procedures DXA-AXIAL SKELETON Heaven Garg PA-C [address] [place] [address] [place] [address] Referral ID Status Reason Start Date Expiration Date Visits Requested Visits Authorized [id number] Pending Review Auto-Generat ed Referral 09/08/2023 10/07/2024 1 1 [facility] for referral (narrative)* Diagnostic Procedure Only (Routine) - New Request Specialty Diagnoses / Procedures Referred By Contac t Referred To Contact X[facility] IMAG[facility] Diagnoses Right hip pain Procedures XR HIP GENERAL 3V PELV/AP/LAT RIGHT RADEX HIP UNILATERAL WITH PELVIS 2-3 VIEWS Brain Ivy MD [address] [place] [address] [place] [address] Referral ID Status Reason Start Date Expiration Date Visits Requested Visits Authorized [id number] New Request Auto-Generat ed Referral 07/14/2025 1 1 [facility] for referral (narrative)* Diagnostic Procedure Only (Routine) - Authorized Specialty Diagnoses / Procedures Referred By Contac t Referred To Contact [facility] Diagnoses Breast skin changes Procedures US BREAST LTD RIGHT US BREAST UNI REAL TIME WITH IMAGE LIMITED Heaven Garg PA-C [address] [place] [address] [facility] [address] [place] [address] Referral ID Status Reason Start Date Expiration Date Visits Requested Visits Authorized [id number] Authorized Auto-Generat ed Referral 07/05/2024 08/04/2025 1 1 * Diagnostic Procedure Only (Routine) - Authorized Specialty Diagnoses / Procedures Referred By Contac t Referred To Contact [facility] Diagnoses Breast skin changes Procedures FILIBERTO DIAGNOSTIC RIGHT DIAGNOSTIC MAMMOGRAPHY COMPUTER-AIDED DETCJ UNI Heaven Garg PA-C [address] [place] [address] [facility] [address] [place] [address] Referral ID Status Reason Start Date Expiration Date Visits Requested Visits Authorized [id number] Authorized Auto-Generat ed Referral 07/05/2024 08/04/2025 1 1 [facility] for referral (narrative)* Diagnostic Procedure Only (Routine) - Closed Specialty Diagnoses / Procedures Referred By Contac t Referred To Contact XR IMAGING Diagnoses Right hip pain Procedures XR HIP GENERAL 3V PELV/AP/LAT RIGHT RADEX HIP UNILATERAL WITH PELVIS 2-3 VIEWS Brain Ivy MD [address] [place] [address] [place] [address] Referral ID Status Reason Start Date Expiration Date V isits Requested Visits Authorized [id number] Closed Auto-Generate d Referral 06/14/2024 07/14/2025 1 1 [facility] for referral (narrative)* Diagnostic Procedure Only (Routine) - New Request Specialty Diagnoses / Procedures Referred By Contac t Referred To Contact [facility] Diagnoses Breast skin changes Procedures FILIBERTO DIAGNOSTIC BILATERAL DIAGNOSTIC MAMMOGRAPHY COMPUTER-AIDED DETCJ BI Heaven Garg PA-C [address] [place] [address] [facility] [address] [place] [address] Referral ID Status Reason Start Date Expiration Date Visits Requested Visits Authorized [id number] New Request Auto-Generat ed Referral 07/13/2024 08/12/2025 1 1 [facility] for referral (narrative)No reason for referral [facility] Phone: Reason for visit Narrative* Diagnostic Procedure Only (Routine) - Closed Specialty Diagnoses / Procedures Referred By Contac t Referred To Contact XR IMAGING Diagnoses Pain in left hip Procedures XR HIP GENERAL 3V PELV/AP/LAT LEFT RADEX HIP UNILATERAL WITH PELVIS 2-3 VIEWS Brain Iyv MD [address] [place] [address] Xr Imaging Referral ID Status Reason Start Date Expiration Date V isits Requested Visits Authorized [id number] Closed Auto-Generate d Referral 01/23/2022 02/22/2023 1 1 [facility] for visit Narrative* Diagnostic Procedure Only (Routine) - Closed Specialty Diagnoses / Procedures Referred By Contac t Referred To Contact XR IMAGING Diagnoses Asymptomatic postmenopausal status Age-related osteoporosis without current pathological fracture Procedures DXA-AXIAL SKELETON Heaven Garg PA-C [address] [place] [address] [place] [address] Referral ID Status Reason Start Date Expiration Date V isits Requested Visits Authorized [id number] Closed Auto-Generate d Referral 09/08/2023 10/07/2024 1 1 [facility] for visit Narrative* Diagnostic Procedure Only (Routine) - Closed Specialty Diagnoses / Procedures Referred By Contac t Referred To Contact [facility] Diagnoses Encounter for screening mammogram for breast cancer Procedures FILIBERTO SCREENING SCREENING MAMMOGRAPHY BI 2-VIEW BREAST INC CAD Magan Amador MD [address] [place] [address] [facility] [address] [place] [address] Referral ID Status Reason Start Date Expiration Date V isits Requested Visits Authorized [id number] Closed Auto-Generate d Referral 04/16/2023 05/15/2024 1 1 [facility] for visit Narrative* Diagnostic Procedure Only (Routine) - Closed Specialty Diagnoses / Procedures Referred By Contac t Referred To Contact X[facility] IMAG[facility] Diagnoses Right hip pain Procedures XR HIP GENERAL 3V PELV/AP/LAT RIGHT RADEX HIP UNILATERAL WITH PELVIS 2-3 VIEWS Brain Ivy MD [address] [place] [address] [place] [address] Referral ID Status Reason Start Date Expiration Date V isits Requested Visits Authorized [id number] Closed Auto-Generate d Referral 06/14/2024 07/14/2025 1 1 [facility] for visit Narrative* Diagnostic Procedure Only (Routine) - Closed Specialty Diagnoses / Procedures Referred By Contac t Referred To Contact [facility] Diagnoses Breast skin changes Procedures FILIBERTO DIAGNOSTIC BILATERAL DIAGNOSTIC MAMMOGRAPHY COMPUTER-AIDED DETCJ BI Heaven Garg, PA-C [address] [place] [address] Phone: tel: fax: [facility] [address] [place] [address] Referral ID Status Reason Start Date Expiration Date V isits Requested Visits Authorized [id number] Closed Auto-Generate d Referral 07/13/2024 08/12/2025 1 1 [facility] Summary Purpose Family History Relationship Condition Age at Onset Recorded Date/T reema mother Cardiac disease Unknown Myocardial infarction Unknown Cerebrovascular accident (CVA) Unknown sister Diabetes mellitus Unknown Relationship Condition Age at Onset Recorded Date/T reema mother Cardiac disease Unknown Myocardial infarction Unknown Cerebrovascular accident (CVA) Unknown sister Diabetes mellitus Unknown brother Parkinson's disease Unknown Advance Directives Documents on File Type Date Recorded Patient Foundry Supervisor Expl anation Advance Directive(s) 01/23/2021 12:08 PM Advance Directive(s) 09/01/2018 9:18 AM Advance Directive(s) 08/11/2018 10:53 AM Advance Directive(s) 02/08/2016 11:21 AM Advance Directive Response Recorded Date/ Time Living Will Yes September 20, 2020 8:52am Power of Church Business Administrator Yes September 20 8:52am Documents on File Type Date Recorded Patient Foundry Supervisor Expl anation Advance Directive(s) 01/23/2021 12:08 PM Advance Directive(s) 09/01/2018 9:18 AM Advance Directive(s) 08/11/2018 10:53 AM Advance Directive(s) 02/08/2016 11:21 AM Advance Directive Response Recorded Date/ Time Living Will Yes September 20, 2020 7:52am Power of Church Business Administrator Yes September 20 7:52am Advance Directive Response Recorded Date/ Time Advanced Directive: N May 9:14am [place] DNR Comfort Care Directives: N June 19, 2022 9:14am Organ Donation Card: N June 192021 9:14am Advance Directive Response Recorded Date/ Time Name of Medical Power of Church Business Administrator STACEY gil December 26, 2022 1:10pm Living Will Yes December 26, 2022 1 :10pm Power of Church Business Administrator Yes December 26, 2022 1:10pm Advance Directive Response Recorded Date/ Time Name of Medical Power of Church Business Administrator Wilbert valdez December 26, 2022 5:05pm Living Will Yes December 26, 2022 5 :05pm Power of Church Business Administrator Yes December 26, 2022 5:05pm Advance Directive Response Recorded Date/ Time Name of Medical Power of Church Business Administrator Wilbert Carr January 08, 2023 1:52pm Living Will Yes January 08, 2023 1:52pm Power of Church Business Administrator Yes January 08 1:52pm Name of Medical Power of Church Business Administrator Wilbert valdez December 26, 2022 5:05pm Advance Directive Response Recorded Date/ Time Living Will Yes May 19, 023 3:59pm Power of Church Business Administrator Yes May 19, 2023 3:59pm Advance Directive Response Recorded Date/ Time Advanced Directive: N December 21 24 11:15am [place] DNR Comfort Care Directives: N December 22, 2023 11:15am Organ Donation Card: N December 21, 024 11:15am Advance Directive Response Recorded Date/ Time Do you have a Healthcare Power of Church Business Administrator? Yes January 20, 2025 12:44pm Chief Complaint and Reason for Visit Chief Complaint 10 m fu 3 M FU E ORDERS Reason for Visit Chest pain, unspecif ied [id number] History of coronary artery stent placement Hyperlipidemia Paroxysmal atrial fibrillation Chest pain, unspecified QUINTANILLA (dyspnea on exertion) History of coronary artery stent placement Hyperlipidemia Paroxysmal atrial fibrillation Chief Complaint 3 M FU E ORDERS DYSPNEA DYSPNEA Reason for Visit Chest pain, unspecif ied QUINTANILLA (dyspnea on exertion) History of coronary artery stent placement Hyperlipidemia Paroxysmal atrial fibrillation Chief Complaint 3 M FU E ORDERS DYSPNEA DYSPNEA PAIN RIGHT HIP Shortness of breath Reason for Visit Chest pain, unspecif ied QUINTANILLA (dyspnea on exertion) History of coronary artery stent placement Hyperlipidemia Paroxysmal atrial fibrillation Shortness of breath Chief Complaint PAIN RIGHT HIP Shortness of breath SCREENING DYSPNEA DYSPNEA DYSPNEA PFM pt,r/s from 03/19 [facility] DYSPNEA Reason for Visit Shortness of breath Dizziness QUINTANILLA (dyspnea on exertion) History of coronary artery stent placement HTN (hypertension) Hyperlipidemia Paroxysmal atrial fibrillation Tobacco dependence syndrome Reason for Visit RIB PAIN RIGHT SIDED RIB PAIN FROM FALL Chief Complaint 4 M FU 4 M FU UNSTABLE ANGINA, ARF, HYPOK Reason for Visit History of coronary artery stent placement HTN (hypertension) Hyperlipidemia Paroxysmal atrial fibrillation Tobacco dependence syndrome Anemia Syncope Anxiety Cerebrovascular disease Chronic low back pain Dementia Depression Insomnia Acute renal failure Hypokalemia Unstable angina Chief Complaint 4 M FU 4 M FU UNSTABLE ANGINA, RENAL FAILURE UNSTABLE ANGINA, RENAL FAILURE UNSTABLE ANGINA, RENAL FAILURE UNSTABLE ANGINA, RENAL FAILURE UNSTABLE ANGINA, RENAL FAILURE UNSTABLE ANGINA, RENAL FAILURE UNSTABLE ANGINA, RENAL FAILURE UNSTABLE ANGINA, RENAL FAILURE UNSTABLE ANGINA, RENAL FAILURE UNSTABLE ANGINA, RENAL FAILURE Reason for Visit History of coronary artery stent placement HTN (hypertension) Hyperlipidemia Paroxysmal atrial fibrillation Tobacco dependence syndrome Anemia Syncope Anxiety Cerebrovascular disease Chronic low back pain Dementia Depression Insomnia Acute renal failure Hypokalemia Unstable angina Paroxysmal atrial fibrillation Chief Complaint 4 M FU 4 M FU UNSTABLE ANGINA, RENAL FAILURE UNSTABLE ANGINA, RENAL FAILURE UNSTABLE ANGINA, RENAL FAILURE UNSTABLE ANGINA, RENAL FAILURE UNSTABLE ANGINA, RENAL FAILURE UNSTABLE ANGINA, RENAL FAILURE UNSTABLE ANGINA, RENAL FAILURE UNSTABLE ANGINA, RENAL FAILURE UNSTABLE ANGINA, RENAL FAILURE UNSTABLE ANGINA, RENAL FAILURE RENAL FAILURE, HYPOKALEMIA, HYPOMAGNESEMIA Reason for Visit History of coronary artery stent placement HTN (hypertension) Hyperlipidemia Tobacco dependence syndrome Anemia Syncope Anxiety Cerebrovascular disease Chronic low back pain Dementia Depression Insomnia Acute renal failure Hypokalemia Hypokalemia Hypomagnesemia Renal failure ST segment changes on electrocardiography Chief Complaint trigger point inject ion EORDER 5 M FU Reason for Visit Myalgia Chronic low back pain Dementia Reason for Visit COUGH AND CONGESTION Reason for Visit COUGH Reason for Visit COUGH, CHEST CONGEST ION COUGH Reason for Visit RASH COUGH, CHEST CONGESTION Reason for Visit SEEN FOR RASH FEW DA YS AGO, GETTING WORSE RASH COUGH, CHEST CONGESTION Chief Complaint Admit Date 1 M FU August 24, 2024 2:23 pm 3 M FU/TRIGGER POINT November 30, 2024 2:5 2pm Reason for Visit Admit Date Low back pain August 24, 2024 2:23 pm Myalgia August 24, 2024 2:23 pm Anxiety August 24, 2024 2:23 pm Dementia August 24, 2024 2:23 pm Depression August 24, 2024 2:23 pm Insomnia August 24, 2024 2:23 pm Reason for Visit SORE THROAT/RED TONG UE/SORE MOUTH/VOMITING VOMITING;SORE THROAT Reason for Visit VOMITING;SORE THROAT Chief Complaint Admit Date 1 M FU August 24, 2024 2:23 pm 3 M FU/TRIGGER POINT November 30, 2024 2:5 2pm HOSP FU ABDOMINAL ISSUES December 09, 2024 10:59am Reason for Visit Admit Date Low back pain August 24, 2024 2:23 pm Myalgia August 24, 2024 2:23 pm Anxiety August 24, 2024 2:23 pm Dementia August 24, 2024 2:23 pm Depression August 24, 2024 2:23 pm Insomnia August 24, 2024 2:23 pm Low back pain November 30, 2024 2:52 pm Myalgia November 30, 2024 2:52 pm Anxiety November 30, 2024 2:52 pm Dementia November 30, 2024 2:52 pm Depression November 30, 2024 2:52 pm Insomnia November 30, 2024 2:52 pm Shortness of breath December 09, 2024 10:5 9am GERD (gastroesophageal reflux disease) J [facility] 2024 10:59am Chief Complaint Admit Date 1 M FU August 24, 2024 2:23 pm 3 M FU/TRIGGER POINT November 30, 2024 2:5 2pm HOSP FU ABDOMINAL ISSUES December 09, 2024 10:59am INT LAB ORDERS December 09, 2024 12:0 7pm Chief Complaint Admit Date 3 M FU/TRIGGER POINT November 30, 2024 2:5 2pm HOSP FU ABDOMINAL ISSUES December 09, 2024 10:59am INT LAB ORDERS December 09, 2024 12:0 7pm Reason for Visit Admit Date Low back pain November 30, 2024 2:52 pm Myalgia November 30, 2024 2:52 pm Anxiety November 30, 2024 2:52 pm Dementia November 30, 2024 2:52 pm Depression November 30, 2024 2:52 pm Insomnia November 30, 2024 2:52 pm Shortness of breath December 09, 2024 10:5 9am GERD (gastroesophageal reflux disease) J [facility] 2024 10:59am Low back pain January 25, 2025 12: 20pm Myalgia January 25, 2025 12: 20pm GERD (gastroesophageal reflux disease) A ugust 2024 12:20pm Medications Administered Section Inactive Administered Medications - up to 3 most recent administrations Medication Order MAR Action Action Date Dose Rate Site betamethasone acetate-betamethasone sodium phosphate 6 mg injection (CELESTONE) 6 mg, Injection - FOR ORTHO USE ONLY, ONE TIME INJECTION, 1 dose, Starting on [place] 01/24/22 at 1120, Until Fri01/24/22 at 1120 Given 01/24/2022 11:20 AM EDT 6 mg lidocaine (PF) 10 mg/mL (1 %) 4 mL injection (XYLOCAINE) 4 mL, Injection - FOR ORTHO USE ONLY, ONE TIME INJECTION, 1 dose, Starting on [place] 01/24/22 at 1120, Until [place] 01/24/22 at 1120 Given 01/24/2022 11:20 AM EDT 4 mL Inactive Administered Medications - up to 3 most recent administrations Medication Order MAR Action Action Date Dose Rate Site betamethasone acetate-betamethasone sodium phosphate 6 mg injection (CELESTONE) 6 mg, Injection - FOR ORTHO USE ONLY, ONE TIME INJECTION, 1 dose, Starting on Fri11/11/22 at 1138, Until Fri11/11/22 at 1138 Given 11/11/2022 11:38 AM EDT 6 mg Shoulder, Left betamethasone acetate-betamethasone sodium phosphate 6 mg injection (CELESTONE) 6 mg, Injection - FOR ORTHO USE ONLY, ONE TIME INJECTION, 1 dose, Starting on Fri11/11/22 at 1138, Until Fri11/11/22 at 1138 Given 11/11/2022 11:38 AM EDT 6 mg Shoulder, Right lidocaine (PF) 10 mg/mL (1 %) 5 mL injection (XYLOCAINE) 5 mL, Injection - FOR ORTHO USE ONLY, ONE TIME INJECTION, 1 dose, Starting on Fri11/11/22 at 1138, Until Fri11/11/22 at 1138 Given 11/11/2022 11:38 AM EDT 5 mL Shoulder, Left lidocaine (PF) 10 mg/mL (1 %) 5 mL injection (XYLOCAINE) 5 mL, Injection - FOR ORTHO USE ONLY, ONE TIME INJECTION, 1 dose, Starting on Fri11/11/22 at 1138, Until Fri11/11/22 at 1138 Given 11/11/2022 11:38 AM EDT 5 mL Shoulder, Right Reason for Referral Specialty Diagnoses / Procedures Referred By Hailey palacios Referred To Contact MR IMAGING Diagnoses Traumatic tear of left rotator cuff, unspecified tear extent, subsequent encounter Status post rotator cuff repair Procedures MRI SHOULDER WO IVCON LEFT MRI ANY JT UPPER EXTREMITY W/O CONTRAST MATRPreeti Hankins PA-C [address] [place] [address] Mr Imaging Referral ID Status Reason Start Date Expiration Date Visits Requested Visits Authorized [id number] Authorized Auto-Generat ed Referral 11/21/2022 12/21/2023 1 1 Specialty Diagnoses / Procedures Referred By Joyac t Referred To Contact MR IMAGING Diagnoses Other symptoms and signs involving the nervous system Transient cerebral ischemia, unspecified type Right sided weakness Right foot drop Numbness of right foot Dementia with behavioral disturbance (HCC) Procedures MRI BRAIN WO IVCON MRI BRAIN BRAIN STEM W/O CONTRAST MATERIAL Heaven Garg PA-C [address] [place] [address] Mr Imaging Referral ID Status Reason Start Date Expiration Date Visits Requested Visits Authorized [id number] Pending Review Auto-Generat ed Referral 12/12/2022 01/11/2024 1 1 Specialty Diagnoses / Procedures Referred By Joyac t Referred To Contact [facility] Diagnoses Right sided weakness Right foot drop Numbness of right foot Procedures EMG(NEURO/NI) NERVE CONDUCTION STUDIES 9-10 STUDIES Heaven Garg PA-C [address] [place] [address] [facility] [place] [address] [place] [address] Referral ID Status Reason Start Date Expiration Date Visits Requested Visits Authorized [id number] Pending Review Auto-Generat ed Referral 12/12/2022 12/13/2023 1 1 Specialty Diagnoses / Procedures Referred By Contac t Referred To Contact Gastroenterology Diagnoses Gastroesophageal reflux disease without esophagitis Colostomy in place (HCC) Procedures CONSULT TO GASTROENTEROLOGY OFFICE/OUTPATIENT [facility] 60-74 MINUTES Heaven Garg PA-C [address] [place] [address] Referral ID Status Reason Start Date Expiration Date Visits Requested Visits Authorized [id number] Pending Review PCP Requested Referral 01/07/2023 01/07/2024 1 1 Specialty Diagnoses / Procedures Referred By Joyac t Referred To Contact PAIN MANAGEMENT Diagnoses Lumbar degenerative disc disease Procedures CONSULT TO PAIN MGT OFFICE/OUTPATIENT [facility] 60 MINUTES Heaven Garg PA-C [address] [place] [address] Donte Garay MD Referral ID Status Reason Start Date Expiration Date Visits Requested Visits Authorized [id number] Pending Review PCP Requested Referral 10/20/2023 10/19/2024 1 1 Specialty Diagnoses / Procedures Referred By Contac t Referred To Contact Endocrinology Diagnoses Age-related osteoporosis without current pathological fracture Procedures CONSULT TO ENDOCRINOLOGY OFFICE/OUTPATIENT NEW HIGH MDM 60 MINUTES Heaven Garg PA-C [address] [place] [address] Referral ID Status Reason Start Date Expiration Date Visits Requested Visits Authorized [id number] Pending Review PCP Requested Referral 10/17/2023 10/16/2024 1 1 Additional Source Comments INFORMATION SOURCE (unrecogn ized section and content) DATE CREATED AUTHOR 12/16/2017 [facility] DATE CREATED AUTHOR AUTHOR'S ORGANIZ ATION 11/16/2020 [facility] DATE CREATED AUTHOR AUTHOR'S ORGANIZ ATION 02/22/2021 [facility] DATE CREATED AUTHOR AUTHOR'S ORGANIZ ATION 12/15/2024 [facility] DATE CREATED AUTHOR AUTHOR'S ORGANIZ ATION 01/10/2025 [facility] DATE CREATED AUTHOR AUTHOR'S ORGANIZ ATION 01/21/2025 [facility] Source Comments (unrecognize d section and content) In the event this informatio n is protected by the Federal Confidentiality of Alcohol and Drug Abuse Patient Records regulations: The Federal rules restrict any use of the information to criminally investigate or prosecute any alcohol or drug abuse patient.[facility] the event this information is protected by the Federal Confidentiality of Alcohol and Drug Abuse Patient Records regulations: The Federal rules restrict any use of the information to criminally investigate or prosecute any alcohol or drug abuse patient.[facility]In the event this information is protected by the Federal Confidentiality of Alcohol and Drug Abuse Patient Records regulations: The Federal rules restrict any use of the information to criminally investigate or prosecute any alcohol or drug abuse patient.[facility]In the event this information is protected by the Federal Confidentiality of Alcohol and Drug Abuse Patient Records regulations: The Federal rules restrict any use of the information to criminally investigate or prosecute any alcohol or drug abuse patient.[facility]In the event this information is protected by the Federal Confidentiality of Alcohol and Drug Abuse Patient Records regulations: The Federal rules restrict any use of the information to criminally investigate or prosecute any alcohol or drug abuse patient.[facility]In the event this information is protected by the Federal Confidentiality of Alcohol and Drug Abuse Patient Records regulations: The Federal rules restrict any use of the information to criminally investigate or prosecute any alcohol or drug abuse patient.[facility]In the event this information is protected by the Federal Confidentiality of Alcohol and Drug Abuse Patient Records regulations: The Federal rules restrict any use of the information to criminally investigate or prosecute any alcohol or drug abuse patient.[facility]In the event this information is protected by the Federal Confidentiality of Alcohol and Drug Abuse Patient Records regulations: The Federal rules restrict any use of the information to criminally investigate or prosecute any alcohol or drug abuse patient.[facility]In the event this information is protected by the Federal Confidentiality of Alcohol and Drug Abuse Patient Records regulations: The Federal rules restrict any use of the information to criminally investigate or prosecute any alcohol or drug abuse patient.[facility]In the event this information is protected by the Federal Confidentiality of Alcohol and Drug Abuse Patient Records regulations: The Federal rules restrict any use of the information to criminally investigate or prosecute any alcohol or drug abuse patient.[facility]In the event this information is protected by the Federal Confidentiality of Alcohol and Drug Abuse Patient Records regulations: The Federal rules restrict any use of the information to criminally investigate or prosecute any alcohol or drug abuse patient.[facility] HospitalIn the event this information is protected by the Federal Confidentiality of Alcohol and Drug Abuse Patient Records regulations: The Federal rules restrict any use of the information to criminally investigate or prosecute any alcohol or drug abuse patient.[facility]In the event this information is protected by the Federal Confidentiality of Alcohol and Drug Abuse Patient Records regulations: The Federal rules restrict any use of the information to criminally investigate or prosecute any alcohol or drug abuse patient.[facility] HospitalIn the event this information is protected by the Federal Confidentiality of Alcohol and Drug Abuse Patient Records regulations: The Federal rules restrict any use of the information to criminally investigate or prosecute any alcohol or drug abuse patient.[facility] HospitalIn the event this information is protected by the Federal Confidentiality of Alcohol and Drug Abuse Patient Records regulations: The Federal rules restrict any use of the information to criminally investigate or prosecute any alcohol or drug abuse patient.[facility] HospitalIn the event this information is protected by the Federal Confidentiality of Alcohol and Drug Abuse Patient Records regulations: The Federal rules restrict any use of the information to criminally investigate or prosecute any alcohol or drug abuse patient.[facility] HospitalIn the event this information is protected by the Federal Confidentiality of Alcohol and Drug Abuse Patient Records regulations: The Federal rules restrict any use of the information to criminally investigate or prosecute any alcohol or drug abuse patient.[facility] HospitalIn the event this information is protected by the Federal Confidentiality of Alcohol and Drug Abuse Patient Records regulations: The Federal rules restrict any use of the information to criminally investigate or prosecute any alcohol or drug abuse patient.[facility] HospitalIn the event this information is protected by the Federal Confidentiality of Alcohol and Drug Abuse Patient Records regulations: The Federal rules restrict any use of the information to criminally investigate or prosecute any alcohol or drug abuse patient.[facility] HospitalIn the event this information is protected by the Federal Confidentiality of Alcohol and Drug Abuse Patient Records regulations: The Federal rules restrict any use of the information to criminally investigate or prosecute any alcohol or drug abuse patient.[facility] HospitalIn the event this information is protected by the Federal Confidentiality of Alcohol and Drug Abuse Patient Records regulations: The Federal rules restrict any use of the information to criminally investigate or prosecute any alcohol or drug abuse patient.[facility] HospitalIn the event this information is protected by the Federal Confidentiality of Alcohol and Drug Abuse Patient Records regulations: The Federal rules restrict any use of the information to criminally investigate or prosecute any alcohol or drug abuse patient.[facility] HospitalIn the event this information is protected by the Federal Confidentiality of Alcohol and Drug Abuse Patient Records regulations: The Federal rules restrict any use of the information to criminally investigate or prosecute any alcohol or drug abuse patient.[facility] HospitalIn the event this information is protected by the Federal Confidentiality of Alcohol and Drug Abuse Patient Records regulations: The Federal rules restrict any use of the information to criminally investigate or prosecute any alcohol or drug abuse patient.[facility] HospitalIn the event this information is protected by the Federal Confidentiality of Alcohol and Drug Abuse Patient Records regulations: The Federal rules restrict any use of the information to criminally investigate or prosecute any alcohol or drug abuse patient.[facility] HospitalIn the event this information is protected by the Federal Confidentiality of Alcohol and Drug Abuse Patient Records regulations: The Federal rules restrict any use of the information to criminally investigate or prosecute any alcohol or drug abuse patient.[facility] HospitalIn the event this information is protected by the Federal Confidentiality of Alcohol and Drug Abuse Patient Records regulations: The Federal rules restrict any use of the information to criminally investigate or prosecute any alcohol or drug abuse patient.[facility] HospitalIn the event this information is protected by the Federal Confidentiality of Alcohol and Drug Abuse Patient Records regulations: The Federal rules restrict any use of the information to criminally investigate or prosecute any alcohol or drug abuse patient.[facility] HospitalIn the event this information is protected by the Federal Confidentiality of Alcohol and Drug Abuse Patient Records regulations: The Federal rules restrict any use of the information to criminally investigate or prosecute any alcohol or drug abuse patient.[facility] HospitalIn the event this information is protected by the Federal Confidentiality of Alcohol and Drug Abuse Patient Records regulations: The Federal rules restrict any use of the information to criminally investigate or prosecute any alcohol or drug abuse patient.[facility] HospitalIn the event this information is protected by the Federal Confidentiality of Alcohol and Drug Abuse Patient Records regulations: The Federal rules restrict any use of the information to criminally investigate or prosecute any alcohol or drug abuse patient.[facility] HospitalIn the event this information is protected by the Federal Confidentiality of Alcohol and Drug Abuse Patient Records regulations: The Federal rules restrict any use of the information to criminally investigate or prosecute any alcohol or drug abuse patient.[facility] HospitalIn the event this information is protected by the Federal Confidentiality of Alcohol and Drug Abuse Patient Records regulations: The Federal rules restrict any use of the information to criminally investigate or prosecute any alcohol or drug abuse patient.[facility] HospitalIn the event this information is protected by the Federal Confidentiality of Alcohol and Drug Abuse Patient Records regulations: The Federal rules restrict any use of the information to criminally investigate or prosecute any alcohol or drug abuse patient.[facility] HospitalIn the event this information is protected by the Federal Confidentiality of Alcohol and Drug Abuse Patient Records regulations: The Federal rules restrict any use of the information to criminally investigate or prosecute any alcohol or drug abuse patient.[facility] HospitalIn the event this information is protected by the Federal Confidentiality of Alcohol and Drug Abuse Patient Records regulations: The Federal rules restrict any use of the information to criminally investigate or prosecute any alcohol or drug abuse patient.[facility] HospitalIn the event this information is protected by the Federal Confidentiality of Alcohol and Drug Abuse Patient Records regulations: The Federal rules restrict any use of the information to criminally investigate or prosecute any alcohol or drug abuse patient.[facility] HospitalIn the event this information is protected by the Federal Confidentiality of Alcohol and Drug Abuse Patient Records regulations: The Federal rules restrict any use of the information to criminally investigate or prosecute any alcohol or drug abuse patient.[facility] HospitalIn the event this information is protected by the Federal Confidentiality of Alcohol and Drug Abuse Patient Records regulations: The Federal rules restrict any use of the information to criminally investigate or prosecute any alcohol or drug abuse patient.[facility] HospitalIn the event this information is protected by the Federal Confidentiality of Alcohol and Drug Abuse Patient Records regulations: The Federal rules restrict any use of the information to criminally investigate or prosecute any alcohol or drug abuse patient.[facility] HospitalIn the event this information is protected by the Federal Confidentiality of Alcohol and Drug Abuse Patient Records regulations: The Federal rules restrict any use of the information to criminally investigate or prosecute any alcohol or drug abuse patient.[facility] HospitalIn the event this information is protected by the Federal Confidentiality of Alcohol and Drug Abuse Patient Records regulations: The Federal rules restrict any use of the information to criminally investigate or prosecute any alcohol or drug abuse patient.[facility] HospitalIn the event this information is protected by the Federal Confidentiality of Alcohol and Drug Abuse Patient Records regulations: The Federal rules restrict any use of the information to criminally investigate or prosecute any alcohol or drug abuse patient.[facility] HospitalIn the event this information is protected by the Federal Confidentiality of Alcohol and Drug Abuse Patient Records regulations: The Federal rules restrict any use of the information to criminally investigate or prosecute any alcohol or drug abuse patient.[facility] HospitalIn the event this information is protected by the Federal Confidentiality of Alcohol and Drug Abuse Patient Records regulations: The Federal rules restrict any use of the information to criminally investigate or prosecute any alcohol or drug abuse patient.[facility] HospitalIn the event this information is protected by the Federal Confidentiality of Alcohol and Drug Abuse Patient Records regulations: The Federal rules restrict any use of the information to criminally investigate or prosecute any alcohol or drug abuse patient.[facility] HospitalIn the event this information is protected by the Federal Confidentiality of Alcohol and Drug Abuse Patient Records regulations: The Federal rules restrict any use of the information to criminally investigate or prosecute any alcohol or drug abuse patient.[facility] HospitalIn the event this information is protected by the Federal Confidentiality of Alcohol and Drug Abuse Patient Records regulations: The Federal rules restrict any use of the information to criminally investigate or prosecute any alcohol or drug abuse patient.[facility] HospitalIn the event this information is protected by the Federal Confidentiality of Alcohol and Drug Abuse Patient Records regulations: The Federal rules restrict any use of the information to criminally investigate or prosecute any alcohol or drug abuse patient.[facility] HospitalIn the event this information is protected by the Federal Confidentiality of Alcohol and Drug Abuse Patient Records regulations: The Federal rules restrict any use of the information to criminally investigate or prosecute any alcohol or drug abuse patient.[facility] HospitalIn the event this information is protected by the Federal Confidentiality of Alcohol and Drug Abuse Patient Records regulations: The Federal rules restrict any use of the information to criminally investigate or prosecute any alcohol or drug abuse patient.[facility] HospitalIn the event this information is protected by the Federal Confidentiality of Alcohol and Drug Abuse Patient Records regulations: The Federal rules restrict any use of the information to criminally investigate or prosecute any alcohol or drug abuse patient.[facility] HospitalIn the event this information is protected by the Federal Confidentiality of Alcohol and Drug Abuse Patient Records regulations: The Federal rules restrict any use of the information to criminally investigate or prosecute any alcohol or drug abuse patient.[facility] HospitalIn the event this information is protected by the Federal Confidentiality of Alcohol and Drug Abuse Patient Records regulations: The Federal rules restrict any use of the information to criminally investigate or prosecute any alcohol or drug abuse patient.[facility] HospitalIn the event this information is protected by the Federal Confidentiality of Alcohol and Drug Abuse Patient Records regulations: The Federal rules restrict any use of the information to criminally investigate or prosecute any alcohol or drug abuse patient.[facility] HospitalIn the event this information is protected by the Federal Confidentiality of Alcohol and Drug Abuse Patient Records regulations: The Federal rules restrict any use of the information to criminally investigate or prosecute any alcohol or drug abuse patient.[facility] HospitalIn the event this information is protected by the Federal Confidentiality of Alcohol and Drug Abuse Patient Records regulations: The Federal rules restrict any use of the information to criminally investigate or prosecute any alcohol or drug abuse patient.[facility] HospitalIn the event this information is protected by the Federal Confidentiality of Alcohol and Drug Abuse Patient Records regulations: The Federal rules restrict any use of the information to criminally investigate or prosecute any alcohol or drug abuse patient.[facility] HospitalIn the event this information is protected by the Federal Confidentiality of Alcohol and Drug Abuse Patient Records regulations: The Federal rules restrict any use of the information to criminally investigate or prosecute any alcohol or drug abuse patient.[facility]In the event this information is protected by the Federal Confidentiality of Alcohol and Drug Abuse Patient Records regulations: The Federal rules restrict any use of the information to criminally investigate or prosecute any alcohol or drug abuse patient.[facility] HospitalIn the event this information is protected by the Federal Confidentiality of Alcohol and Drug Abuse Patient Records regulations: The Federal rules restrict any use of the information to criminally investigate or prosecute any alcohol or drug abuse patient.[facility] HospitalIn the event this information is protected by the Federal Confidentiality of Alcohol and Drug Abuse Patient Records regulations: The Federal rules restrict any use of the information to criminally investigate or prosecute any alcohol or drug abuse patient.[facility] HospitalIn the event this information is protected by the Federal Confidentiality of Alcohol and Drug Abuse Patient Records regulations: The Federal rules restrict any use of the information to criminally investigate or prosecute any alcohol or drug abuse patient.[facility] HospitalIn the event this information is protected by the Federal Confidentiality of Alcohol and Drug Abuse Patient Records regulations: The Federal rules restrict any use of the information to criminally investigate or prosecute any alcohol or drug abuse patient.[facility] HospitalIn the event this information is protected by the Federal Confidentiality of Alcohol and Drug Abuse Patient Records regulations: The Federal rules restrict any use of the information to criminally investigate or prosecute any alcohol or drug abuse patient.[facility] HospitalIn the event this information is protected by the Federal Confidentiality of Alcohol and Drug Abuse Patient Records regulations: The Federal rules restrict any use of the information to criminally investigate or prosecute any alcohol or drug abuse patient.[facility] HospitalIn the event this information is protected by the Federal Confidentiality of Alcohol and Drug Abuse Patient Records regulations: The Federal rules restrict any use of the information to criminally investigate or prosecute any alcohol or drug abuse patient.[facility] HospitalIn the event this information is protected by the Federal Confidentiality of Alcohol and Drug Abuse Patient Records regulations: The Federal rules restrict any use of the information to criminally investigate or prosecute any alcohol or drug abuse patient.[facility] HospitalIn the event this information is protected by the Federal Confidentiality of Alcohol and Drug Abuse Patient Records regulations: The Federal rules restrict any use of the information to criminally investigate or prosecute any alcohol or drug abuse patient.[facility] HospitalIn the event this information is protected by the Federal Confidentiality of Alcohol and Drug Abuse Patient Records regulations: The Federal rules restrict any use of the information to criminally investigate or prosecute any alcohol or drug abuse patient.[facility] HospitalIn the event this information is protected by the Federal Confidentiality of Alcohol and Drug Abuse Patient Records regulations: The Federal rules restrict any use of the information to criminally investigate or prosecute any alcohol or drug abuse patient.[facility] HospitalIn the event this information is protected by the Federal Confidentiality of Alcohol and Drug Abuse Patient Records regulations: The Federal rules restrict any use of the information to criminally investigate or prosecute any alcohol or drug abuse patient.[facility] HospitalIn the event this information is protected by the Federal Confidentiality of Alcohol and Drug Abuse Patient Records regulations: The Federal rules restrict any use of the information to criminally investigate or prosecute any alcohol or drug abuse patient.[facility] HospitalIn the event this information is protected by the Federal Confidentiality of Alcohol and Drug Abuse Patient Records regulations: The Federal rules restrict any use of the information to criminally investigate or prosecute any alcohol or drug abuse patient.[facility] HospitalIn the event this information is protected by the Federal Confidentiality of Alcohol and Drug Abuse Patient Records regulations: The Federal rules restrict any use of the information to criminally investigate or prosecute any alcohol or drug abuse patient.[facility] HospitalIn the event this information is protected by the Federal Confidentiality of Alcohol and Drug Abuse Patient Records regulations: The Federal rules restrict any use of the information to criminally investigate or prosecute any alcohol or drug abuse patient.[facility] HospitalIn the event this information is protected by the Federal Confidentiality of Alcohol and Drug Abuse Patient Records regulations: The Federal rules restrict any use of the information to criminally investigate or prosecute any alcohol or drug abuse patient.[facility] HospitalIn the event this information is protected by the Federal Confidentiality of Alcohol and Drug Abuse Patient Records regulations: The Federal rules restrict any use of the information to criminally investigate or prosecute any alcohol or drug abuse patient.[facility] HospitalIn the event this information is protected by the Federal Confidentiality of Alcohol and Drug Abuse Patient Records regulations: The Federal rules restrict any use of the information to criminally investigate or prosecute any alcohol or drug abuse patient.[facility] HospitalIn the event this information is protected by the Federal Confidentiality of Alcohol and Drug Abuse Patient Records regulations: The Federal rules restrict any use of the information to criminally investigate or prosecute any alcohol or drug abuse patient.[facility] HospitalIn the event this information is protected by the Federal Confidentiality of Alcohol and Drug Abuse Patient Records regulations: The Federal rules restrict any use of the information to criminally investigate or prosecute any alcohol or drug abuse patient.[facility] HospitalIn the event this information is protected by the Federal Confidentiality of Alcohol and Drug Abuse Patient Records regulations: The Federal rules restrict any use of the information to criminally investigate or prosecute any alcohol or drug abuse patient.[facility] HospitalIn the event this information is protected by the Federal Confidentiality of Alcohol and Drug Abuse Patient Records regulations: The Federal rules restrict any use of the information to criminally investigate or prosecute any alcohol or drug abuse patient.[facility] HospitalIn the event this information is protected by the Federal Confidentiality of Alcohol and Drug Abuse Patient Records regulations: The Federal rules restrict any use of the information to criminally investigate or prosecute any alcohol or drug abuse patient.[facility] HospitalIn the event this information is protected by the Federal Confidentiality of Alcohol and Drug Abuse Patient Records regulations: The Federal rules restrict any use of the information to criminally investigate or prosecute any alcohol or drug abuse patient.[facility] HospitalIn the event this information is protected by the Federal Confidentiality of Alcohol and Drug Abuse Patient Records regulations: The Federal rules restrict any use of the information to criminally investigate or prosecute any alcohol or drug abuse patient.[facility] HospitalIn the event this information is protected by the Federal Confidentiality of Alcohol and Drug Abuse Patient Records regulations: The Federal rules restrict any use of the information to criminally investigate or prosecute any alcohol or drug abuse patient.[facility] HospitalIn the event this information is protected by the Federal Confidentiality of Alcohol and Drug Abuse Patient Records regulations: The Federal rules restrict any use of the information to criminally investigate or prosecute any alcohol or drug abuse patient.[facility] HospitalIn the event this information is protected by the Federal Confidentiality of Alcohol and Drug Abuse Patient Records regulations: The Federal rules restrict any use of the information to criminally investigate or prosecute any alcohol or drug abuse patient.[facility] HospitalIn the event this information is protected by the Federal Confidentiality of Alcohol and Drug Abuse Patient Records regulations: The Federal rules restrict any use of the information to criminally investigate or prosecute any alcohol or drug abuse patient.[facility] HospitalIn the event this information is protected by the Federal Confidentiality of Alcohol and Drug Abuse Patient Records regulations: The Federal rules restrict any use of the information to criminally investigate or prosecute any alcohol or drug abuse patient.[facility] HospitalIn the event this information is protected by the Federal Confidentiality of Alcohol and Drug Abuse Patient Records regulations: The Federal rules restrict any use of the information to criminally investigate or prosecute any alcohol or drug abuse patient.[facility] HospitalIn the event this information is protected by the Federal Confidentiality of Alcohol and Drug Abuse Patient Records regulations: The Federal rules restrict any use of the information to criminally investigate or prosecute any alcohol or drug abuse patient.[facility] HospitalIn the event this information is protected by the Federal Confidentiality of Alcohol and Drug Abuse Patient Records regulations: The Federal rules restrict any use of the information to criminally investigate or prosecute any alcohol or drug abuse patient.[facility] HospitalIn the event this information is protected by the Federal Confidentiality of Alcohol and Drug Abuse Patient Records regulations: The Federal rules restrict any use of the information to criminally investigate or prosecute any alcohol or drug abuse patient.[facility] HospitalIn the event this information is protected by the Federal Confidentiality of Alcohol and Drug Abuse Patient Records regulations: The Federal rules restrict any use of the information to criminally investigate or prosecute any alcohol or drug abuse patient.[facility] HospitalIn the event this information is protected by the Federal Confidentiality of Alcohol and Drug Abuse Patient Records regulations: The Federal rules restrict any use of the information to criminally investigate or prosecute any alcohol or drug abuse patient.[facility] HospitalIn the event this information is protected by the Federal Confidentiality of Alcohol and Drug Abuse Patient Records regulations: The Federal rules restrict any use of the information to criminally investigate or prosecute any alcohol or drug abuse patient.[facility] HospitalIn the event this information is protected by the Federal Confidentiality of Alcohol and Drug Abuse Patient Records regulations: The Federal rules restrict any use of the information to criminally investigate or prosecute any alcohol or drug abuse patient.[facility] HospitalIn the event this information is protected by the Federal Confidentiality of Alcohol and Drug Abuse Patient Records regulations: The Federal rules restrict any use of the information to criminally investigate or prosecute any alcohol or drug abuse patient.[facility] HospitalIn the event this information is protected by the Federal Confidentiality of Alcohol and Drug Abuse Patient Records regulations: The Federal rules restrict any use of the information to criminally investigate or prosecute any alcohol or drug abuse patient.[facility] HospitalIn the event this information is protected by the Federal Confidentiality of Alcohol and Drug Abuse Patient Records regulations: The Federal rules restrict any use of the information to criminally investigate or prosecute any alcohol or drug abuse patient.[facility] HospitalIn the event this information is protected by the Federal Confidentiality of Alcohol and Drug Abuse Patient Records regulations: The Federal rules restrict any use of the information to criminally investigate or prosecute any alcohol or drug abuse patient.[facility] HospitalIn the event this information is protected by the Federal Confidentiality of Alcohol and Drug Abuse Patient Records regulations: The Federal rules restrict any use of the information to criminally investigate or prosecute any alcohol or drug abuse patient.[facility] HospitalIn the event this information is protected by the Federal Confidentiality of Alcohol and Drug Abuse Patient Records regulations: The Federal rules restrict any use of the information to criminally investigate or prosecute any alcohol or drug abuse patient.[facility] HospitalIn the event this information is protected by the Federal Confidentiality of Alcohol and Drug Abuse Patient Records regulations: The Federal rules restrict any use of the information to criminally investigate or prosecute any alcohol or drug abuse patient.[facility] HospitalIn the event this information is protected by the Federal Confidentiality of Alcohol and Drug Abuse Patient Records regulations: The Federal rules restrict any use of the information to criminally investigate or prosecute any alcohol or drug abuse patient.[facility] HospitalIn the event this information is protected by the Federal Confidentiality of Alcohol and Drug Abuse Patient Records regulations: The Federal rules restrict any use of the information to criminally investigate or prosecute any alcohol or drug abuse patient.[facility] HospitalIn the event this information is protected by the Federal Confidentiality of Alcohol and Drug Abuse Patient Records regulations: The Federal rules restrict any use of the information to criminally investigate or prosecute any alcohol or drug abuse patient.[facility] HospitalIn the event this information is protected by the Federal Confidentiality of Alcohol and Drug Abuse Patient Records regulations: The Federal rules restrict any use of the information to criminally investigate or prosecute any alcohol or drug abuse patient.[facility] HospitalIn the event this information is protected by the Federal Confidentiality of Alcohol and Drug Abuse Patient Records regulations: The Federal rules restrict any use of the information to criminally investigate or prosecute any alcohol or drug abuse patient.[facility] HospitalIn the event this information is protected by the Federal Confidentiality of Alcohol and Drug Abuse Patient Records regulations: The Federal rules restrict any use of the information to criminally investigate or prosecute any alcohol or drug abuse patient.[facility] HospitalIn the event this information is protected by the Federal Confidentiality of Alcohol and Drug Abuse Patient Records regulations: The Federal rules restrict any use of the information to criminally investigate or prosecute any alcohol or drug abuse patient.[facility] HospitalIn the event this information is protected by the Federal Confidentiality of Alcohol and Drug Abuse Patient Records regulations: The Federal rules restrict any use of the information to criminally investigate or prosecute any alcohol or drug abuse patient.[facility] HospitalIn the event this information is protected by the Federal Confidentiality of Alcohol and Drug Abuse Patient Records regulations: The Federal rules restrict any use of the information to criminally investigate or prosecute any alcohol or drug abuse patient.[facility] HospitalIn the event this information is protected by the Federal Confidentiality of Alcohol and Drug Abuse Patient Records regulations: The Federal rules restrict any use of the information to criminally investigate or prosecute any alcohol or drug abuse patient.[facility] HospitalIn the event this information is protected by the Federal Confidentiality of Alcohol and Drug Abuse Patient Records regulations: The Federal rules restrict any use of the information to criminally investigate or prosecute any alcohol or drug abuse patient.[facility] HospitalIn the event this information is protected by the Federal Confidentiality of Alcohol and Drug Abuse Patient Records regulations: The Federal rules restrict any use of the information to criminally investigate or prosecute any alcohol or drug abuse patient.[facility] HospitalIn the event this information is protected by the Federal Confidentiality of Alcohol and Drug Abuse Patient Records regulations: The Federal rules restrict any use of the information to criminally investigate or prosecute any alcohol or drug abuse patient.[facility] HospitalIn the event this information is protected by the Federal Confidentiality of Alcohol and Drug Abuse Patient Records regulations: The Federal rules restrict any use of the information to criminally investigate or prosecute any alcohol or drug abuse patient.[facility] HospitalIn the event this information is protected by the Federal Confidentiality of Alcohol and Drug Abuse Patient Records regulations: The Federal rules restrict any use of the information to criminally investigate or prosecute any alcohol or drug abuse patient.[facility] HospitalIn the event this information is protected by the Federal Confidentiality of Alcohol and Drug Abuse Patient Records regulations: The Federal rules restrict any use of the information to criminally investigate or prosecute any alcohol or drug abuse patient.[facility] HospitalIn the event this information is protected by the Federal Confidentiality of Alcohol and Drug Abuse Patient Records regulations: The Federal rules restrict any use of the information to criminally investigate or prosecute any alcohol or drug abuse patient.[facility] HospitalIn the event this information is protected by the Federal Confidentiality of Alcohol and Drug Abuse Patient Records regulations: The Federal rules restrict any use of the information to criminally investigate or prosecute any alcohol or drug abuse patient.[facility] HospitalIn the event this information is protected by the Federal Confidentiality of Alcohol and Drug Abuse Patient Records regulations: The Federal rules restrict any use of the information to criminally investigate or prosecute any alcohol or drug abuse patient.[facility] HospitalIn the event this information is protected by the Federal Confidentiality of Alcohol and Drug Abuse Patient Records regulations: The Federal rules restrict any use of the information to criminally investigate or prosecute any alcohol or drug abuse patient.[facility] HospitalIn the event this information is protected by the Federal Confidentiality of Alcohol and Drug Abuse Patient Records regulations: The Federal rules restrict any use of the information to criminally investigate or prosecute any alcohol or drug abuse patient.[facility] Reason for Visit (unrecogniz ed section and content) Reason Comments Requesting office notes and labs Reason Onset Date Comments Community Monitoring Outreach 09/21/2021 [facility] D CDM Enrollment Reason Onset Date Comments Community Monitoring Outreach 10/19/2021 [facility] D CDM Outreach Reason Onset Date Comments Refill Request 10/19/2021 Reason Onset Date Comments Community Monitoring Outreach 10/24/2021 [facility] D CDM Outreach Reason Onset Date Comments Refill Request 11/05/2021 Reason Onset Date Comments Refill Request 11/09/2021 Reason Onset Date Comments Community Monitoring Outreach 12/13/2021 [facility] D CDM Outreach Reason Onset Date Comments Community Monitoring Outreach 12/20/2021 [facility] D CDM Outreach Reason Onset Date Comments Refill Request 12/28/2021 Reason Comments Prescription Refills Reason Comments Medication Question Reason Onset Date Comments Community Monitoring Outreach 01/23/2022 [facility] D CDM Outreach Reason Onset Date Comments Refill Request 02/04/2022 Reason Comments Last seen 04/19/21 S/P left thumb C[facility] arthroplasty with LRTI and left 3rd trigger finger release Established Patient Pain Reason Comments Appointment Patient Question Reason Comments Hip Pain Reason Onset Date Comments Refill Request 02/27/2022 Reason Onset Date Comments Refill Request 04/03/2022 Reason Onset Date Comments Refill Request 04/08/2022 Reason Onset Date Comments Refill Request 05/07/2022 Reason Comments Medicare Wellness Exam Reason Comments Orders Reason Onset Date Comments community monitoring outreach 05/08/2022 CD M engagement Reason Comments Results Reason Onset Date Comments community monitoring outreach 05/29/2022 CD M telephonic outreach Reason Onset Date Comments Refill Request 06/05/2022 Reason Onset Date Comments Refill Request 06/10/2022 Reason Comments Patient Update Reason Onset Date Comments Refill Request 07/08/2022 Reason Onset Date Comments community monitoring outreach 08/02/2022 CD M-Telephonic outreach Reason Comments Lab Orders Reason Comments Blood Sugar Readings Reason Comments Refill Request Reason Onset Date Comments community monitoring outreach 09/02/2022 CD M-Telephonic outreach Reason Onset Date Comments Refill Request 10/04/2022 Reason Onset Date Comments community monitoring outreach 10/08/2022 CD M-Telephonic outreach Reason Comments Appointment Reason Comments Orders MRI Reason Comments Right leg numbness Reason Onset Date Comments community monitoring outreach 12/11/2022 CD M-Telephonic outreach Reason Comments Pain 9 months post visit right sh oulder pain with injection given Wants injections bilateral shoulders Reason Comments Numbness Left leg numbness an d heaviness Reason Comments Chest Pain Shortness of breath Reason Comments Hospital F/U Reason Comments Requesting lab Results Reason Comments Hospital F/U Reason Onset Date Comments communtiy monitoring outreach 02/12/2023 CD M-Telephonic outreach Reason Onset Date Comments community monitoring outreach 03/18/2023 CD M-Telephonic outreach Reason Onset Date Comments Refill Request 03/25/2023 Reason Comments Established Patient Reason Comments Outside Imaging Reason Comments outside imaging Reason Onset Date Comments community monitoring outreach 04/21/2023 CD M-Telephonic outreach Reason Onset Date Comments community monitoring outreach 07/31/2023 CD M-Telephonic outreach Reason Comments Smoking Cessation Reason Onset Date Comments community monitoring outreach 09/03/2023 CD M-Telephonic outreach Reason Comments Outside [id number] Ordered Reason Onset Date Comments Refill Request 09/05/2023 Reason Onset Date Comments community monitoring outreach 10/06/2023 CD M-Telephonic outreach Reason Comments Tic Disorder (Organic) Reason Comments Results Appointment Reason Onset Date Comments community monitoring outreach 11/06/2023 CD M-Telephonic outreach Reason Onset Date Comments Refill Request 11/19/2023 Reason Onset Date Comments community monitoring outreach 12/05/2023 CD M-Telephonic outreach Reason Onset Date Comments community monitoring outreach 01/06/2024 CD M-Telephonic outreach Reason Onset Date Comments community monitoring outreach 02/11/2024 CD M-Telephonic outreach Reason Comments Recheck Reason Comments Diabetic Eye Exam Reason Onset Date Comments community monitoring outreach 03/11/2024 CD M-Telephonic outreach Reason Onset Date Comments community monitoring outreach 04/13/2024 CD M-Telephonic outreach Reason Onset Date Comments community monitoring outreach 04/14/2024 CD M-Telephonic outreach Reason Onset Date Comments Refill Request 04/19/2024 Reason Comments Patient Request Reason Onset Date Comments Refill Request 05/10/2024 Reason Onset Date Comments community monitoring outreach 05/12/2024 CD M-Telephonic outreach Reason Onset Date Comments community monitoring outreach 05/13/2024 CD M-Telephonic outreach Reason Onset Date Comments Refill Request 06/03/2024 Reason Comments requesting medication Reason Comments Letter Reason Comments Patient Update Letter from Deangelo dunne patient Reason Comments Breast Problem Reason Comments Established Patient Pain Specialty Diagnoses / Procedures Referred By Hailey t Referred To Contact Orthopedics / ORTHOPAEDIC SURGERY Diagnoses Unilateral primary osteoarthritis, right hip Rt hip cortisone inj Procedures ADRENALIN EPINEPHRINE INJECT TEJ ESTABLISH Brain Ivy MD [address] [place] [address] Brain Ivy MD [address] [place] [address] Referral ID Status Reason Start Date Expiration Date V isits Requested Visits Authorized [id number] Authorized 07/05/2024 06/22/2025 99 99 Reason Comments Orders Reason Onset Date Comments Refill Request 07/27/2024 Reason Comments Radiology US Specialty Diagnoses / Procedures Referred By Hailey t Referred To Contact [facility] Diagnoses Breast skin changes Procedures US BREAST LTD RIGHT US BREAST UNI REAL TIME WITH IMAGE LIMITED Heaven Garg PA-C [address] [place] [address] Phone: tel: fax: [facility] [address] [place] [address] Referral ID Status Reason Start Date Expiration Date V isits Requested Visits Authorized [id number] Closed Auto-Generate d Referral 07/05/2024 08/04/2025 1 1 Reason Onset Date Comments Refill Request 10/01/2024 Reason Comments Forms Reason Comments Dizziness Reason Comments Results Outside labs Care Teams (unrecognized sec tion and content) Metal Bed Assembler Relationship Specialty Start Date End Date Magan Amador MD [address] [place], [place] [id number] PCP - General Family Practice 04/22/13 Metal Bed Assembler Relationship Specialty Start Date End Date Magan Amador MD [address] [place] [address] PCP - General Family Practice 04/22/13 Jaydon Jeffers, recreational programs directorTurf Sales Person [facility] Practice 09/21/21 Metal Bed Assembler Relationship Specialty Start Date End Date Magan Amador MD [address] [place] [address] PCP - General Family Practice 04/22/13 Jaydon Jeffers, recreational programs directorTurf Sales Person [facility] Practice 09/21/21 Metal Bed Assembler Relationship Specialty Start Date End Date Magan Amador MD [facility] [place] [address] PCP - General Family Practice 04/22/13 Jaydon Jeffers, recreational programs directorTurf Sales Person [facility] 09/21/21 Metal Bed Assembler Relationship Specialty Start Date End Date Magan Amador MD [address] [place] [address] PCP - General Family Practice 04/22/13 Jaydon Jeffers, recreational programs directorTurf Sales Person Family Practice 09/21/21 Metal Bed Assembler Relationship Specialty Start Date End Date Magan Amador MD [address] [place] [address] PCP - General Family Practice 04/22/13 Jaydon Jeffers, recreational programs directorTurf Sales Person Family Practice 09/21/21 Metal Bed Assembler Relationship Specialty Start Date End Date Magan Amador MD [address] [place] [address] PCP - General Family Practice 04/22/13 Jaydon Jeffers recreational programs directorTurf Sales Person Family Practice 09/21/21 Metal Bed Assembler Relationship Specialty Start Date End Date Magan Amador MD [address] [place] [address] PCP - General Family Practice 04/22/13 Jaydon Jeffers, recreational programs directorTurf Sales Person Family Practice 09/21/21 Metal Bed Assembler Relationship Specialty Start Date End Date Magan Amador MD [address] [place] [address] PCP - General Family Practice 04/22/13 Jaydon Jeffers, recreational programs directorTurf Sales Person Family Practice 09/21/21 Metal Bed Assembler Relationship Specialty Start Date End Date Magan Amador MD [address] [place] [address] PCP - General Family Practice 04/22/13 Jaydon Jeffers, recreational programs directorTurf Sales Person Family Practice 09/21/21 Metal Bed Assembler Relationship Specialty Start Date End Date Magan Amador MD [address] [place] [address] PCP - General Family Practice 04/22/13 Jaydon Jeffers, recreational programs directorTurf Sales Person Family Practice 09/21/21 Metal Bed Assembler Relationship Specialty Start Date End Date Magan Amador MD [address] [place] [address] PCP - General Family Practice 04/22/13 Jaydon Jeffers, recreational programs directorTurf Sales Person Family Practice 09/21/21 Metal Bed Assembler Relationship Specialty Start Date End Date Magan Amador MD [address] [place] [address] PCP - General Family Practice 04/22/13 Jaydon Jeffers, recreational programs directorTurf Sales Person Family Practice 09/21/21 Metal Bed Assembler Relationship Specialty Start Date End Date Magan Amador MD [address] [place] [address] PCP - General Family Medicine 04/22/13 Jaydon Jeffers, recreational programs directorTurf Sales Person Family Medicine 09/21/21 Metal Bed Assembler Relationship Specialty Start Date End Date Magan Amador MD [address] [place] [address] PCP - General Family Medicine 04/22/13 Jaydon Jeffers, recreational programs directorTurf Sales Person Family Medicine 09/21/21 Metal Bed Assembler Relationship Specialty Start Date End Date Magan Amador MD [address] [place] [address] PCP - General Family Medicine 04/22/13 Zach Donovan RN [address] [place] [address] Turf Sales Person Family Medicine 09/21/21 Metal Bed Assembler Relationship Specialty Start Date End Date Magan Amador MD [address] [place] [address] PCP - General Family Medicine 04/22/13 Zach Donovan RN [address] [place], [place] [id number] Turf Sales Person Family Medicine 09/21/21 Metal Bed Assembler Relationship Specialty Start Date End Date Magan Amador MD [address] [place] [address] PCP - General Family Medicine 04/22/13 Zach Donovan, RN [address] [place] [address] Turf Sales Person Family Medicine 09/21/21 Metal Bed Assembler Relationship Specialty Start Date End Date Magan Amador MD [address] [place] [address] PCP - General Family Medicine 04/22/13 Zach Donovan, CAROLIN [address] [place] [address] Turf Sales Person Family Medicine 09/21/21 Metal Bed Assembler Relationship Specialty Start Date End Date Magan Amador MD [address] [place] [address] PCP - General Family Medicine 04/22/13 Zach Donovan RN [address] [place] [address] Turf Sales Person Family Medicine 09/21/21 Metal Bed Assembler Relationship Specialty Start Date End Date Magan Amador MD [address] [place] [address] PCP - General Family Medicine 04/22/13 Zach Donovan RN [address] [place] [address] Turf Sales Person Family Medicine 05/05/22 Metal Bed Assembler Relationship Specialty Start Date End Date Magan Amador MD [address] [place] [address] PCP - General Family Medicine 04/22/13 Zach Donovan RN [address] [place] [address] Turf Sales Person Family Medicine 05/05/22 Metal Bed Assembler Relationship Specialty Start Date End Date Magan Amador MD [address] [place] [address] PCP - General Family Medicine 04/22/13 Zahc Donovan RN [address] [place] [address] Turf Sales Person [facility] 05/05/22 Team Status: Active Member Role Status Dates None primary care physician Active Start : June 19, 2022 CLAY STRUCTURE BUILDER AND SERVICER.DANNI [facility] Active Start: June 19, 2022 None FAMILY Active Start: June 19, 2022 MERCEDES CHRISTOPHER Next of Kin Active Start: Decem georges 2021 TY YU Guarantor Active Start: Decemb er 2021 Metal Bed Assembler Relationship Specialty Start Date End Date Magan Amador MD [address] [place] [address] PCP - General Family Medicine 04/22/13 Zach Donovan RN [address] [place] [address] Turf Sales Person [facility] 05/05/22 Metal Bed Assembler Relationship Specialty Start Date End Date Magan Amadro MD [address] [place] [address] PCP - General Family Medicine 04/22/13 Zach Donovan RN [address] [place] [address] Turf Sales Person [facility] 05/05/22 Metal Bed Assembler Relationship Specialty Start Date End Date Magan Amador MD [address] [place] [address] PCP - General Family Medicine 04/22/13 Zach Donovan RN [address] [place] [address] Turf Sales Person [facility] 05/05/22 Metal Bed Assembler Relationship Specialty Start Date End Date Magan Amador MD [address] [place] [address] PCP - General Family Medicine 04/22/13 Zach Donovan RN [address] [place] [address] Turf Sales Person Family Medicine 05/05/22 Metal Bed Assembler Relationship Specialty Start Date End Date Magan Amador MD [address] [place] [address] PCP - General Family Medicine 04/22/13 Zach Donovan, RN [address] [place] [address] Turf Sales Person [facility] 05/05/22 Metal Bed Assembler Relationship Specialty Start Date End Date Magan Amador MD [address] [place] [address] PCP - General Family Medicine 04/22/13 Zach Donovan, RN [address] [place] [address] Turf Sales Person [facility] 05/05/22 Metal Bed Assembler Relationship Specialty Start Date End Date Magan Amador MD [address] [place] [address] PCP - General Family Medicine 04/22/13 Zach Donovan, RN [address] [place] [address] Turf Sales Person [facility] 05/05/22 Metal Bed Assembler Relationship Specialty Start Date End Date Magan Amador MD [address] [place] [address] PCP - General Family Medicine 04/22/13 Zach Donovan, RN [address] [place] [address] Turf Sales Person Family [facility] 05/05/22 Metal Bed Assembler Relationship Specialty Start Date End Date Magan Amador MD [address] [place] [address] PCP - General Family Medicine 04/22/13 Zach Donovan, RN [address] [place] [address] Turf Sales Person Family [facility] 05/05/22 Metal Bed Assembler Relationship Specialty Start Date End Date Magan Amador MD [address] [place] [address] PCP - General Family Medicine 04/22/13 Zach Donovan RN [address] [place] [phone] Turf Sales Person Family Medicine 05/05/22 Team Status: Active Member Role Status Dates Dr. Magan Amador MD Family Provider Active Dr. Magan Amador MD Primary Care Provider Active Team Status: Inactive Member Role Status Dates Dr. Magan Amador MD Primary Care Provider, Referri ng Provider Active Catherine Park BRAND PROTECTION MANAGER, BRAND PROTECTION MANAGER-C Attending Provider Active Team Status: Inactive Member Role Status Dates Dr. Magan Amador MD Primary Care Provider, Referri ng Provider Active Dr. César Partida MD Attending Provider Active Team Status: Active Member Role Status Dates Dr. Magan Amador MD Primary Care Provider Active Dr. Brain oDherty MD Emergency Provider Active Dr. Sarath Ceja DO Admit Provider, Attending Pro vider Active Metal Bed Assembler Relationship Specialty Start Date End Date Magan Amador MD [address] [place] [address] PCP - General Family Medicine 04/22/13 Zach Donovan RN [address] [place] [phone] Turf Sales Person [facility] Medicine 05/05/22 Team Status: Active Member Role Status Dates Dr. Magan Amador MD Primary Care Provider Active Dr. Brain Doherty MD Emergency Provider Active Dr. Sarath Ceja DO Admit Provider, Attending Provider, Other Provider Active Dr. Jorge Hills MD Other Provider Active Team Status: Active Member Role Status Dates Dr. Magan Amador MD Primary Care Provider Active Dr. Jorge Hills MD Attending Provider Activ e Team Status: Active Member Role Status Dates Dr. Magan Amador MD Primary Care Provider Active Dr. Brain Doherty MD Emergency Provider Active Dr. Sarath Ceja DO Admit Provider, Other Provide r Active Dr. Jorge Hills MD Attending Provider, Othe r Provider Active Team Status: Active Member Role Status Dates Dr. Magan Amador MD Primary Care Provider Active Dr. Brain Doherty MD Emergency Provider Active Dr. Sarath Ceja DO Admit Provider, Other Provide r Active Dr. Jorge Hills MD Other Provider Active Dr. Medardo Berrios MD Attending Provider Active Team Status: Inactive Member Role Status Dates Dr. Magan Amador MD Primary Care Provider Active Dr. Brain Doherty MD Emergency Provider Active Dr. Sarath Ceja DO Admit Provider, Attending Pro vider Active Dr. Jorge Hills MD Other Provider Active Metal Bed Assembler Relationship Specialty Start Date End Date Magan Amador MD [address] [place], [place] [address] PCP - General [facility] 04/22/13 Zach Donovan RN [address] [place], [place] [phone] Turf Sales Person [facility] 05/05/22 Team Status: Active Member Role Status Dates Dr. Magan Amador MD Primary Care Provider Active Dr. Jorge Hills MD Attending Provider, Refe rring Provider Active Team Status: Active Member Role Status Dates Dr. Magan Amador MD Primary Care Provider Active Dr. Brain Doherty MD Emergency Provider Active Dr. Sarath Ceja DO Admit Provider, Other Provide r Active Dr. Jorge Hills MD Other Provider Active Dr. Medardo Berrios MD Attending Provider, Referring Pro vider Active Team Status: Active Member Role Status Dates Dr. Magan Amador MD Primary Care Provider Active Dr. Maria Isabel Lemus MD Emergency Provider Active Dr. Nayla Quiroz MD Admit Provider, Attending Provi roula Active Metal Bed Assembler Relationship Specialty Start Date End Date Magan Amador MD [address] [place], [place] [address] PCP - General [facility] 04/22/13 Zach Donovan RN [address] [place], [place] [phone] Turf Sales Person [facility] 05/05/22 Metal Bed Assembler Relationship Specialty Start Date End Date Magan Amador MD [address] [place] [address] PCP - General Family Medicine 04/22/13 Zach Donovan, RN [address] [place] [address] Turf Sales Person [facility] 05/05/22 Metal Bed Assembler Relationship Specialty Start Date End Date Magan Amador MD [address] [place] [address] PCP - General Family Medicine 04/22/13 Zach Donovan RN [address] [place] [address] Turf Sales Person [facility] 05/05/22 Metal Bed Assembler Relationship Specialty Start Date End Date Magan Amador MD [address] [place] [address] PCP - General Family Medicine 04/22/13 Zach Donovan RN [address] [place] [address] Turf Sales Person [facility] 05/05/22 Metal Bed Assembler Relationship Specialty Start Date End Date Magan Amador MD [address] [place] [address] PCP - General Family Medicine 04/22/13 Zach Donovan RN [address] [place] [address] Turf Sales Person [facility] 05/05/22 Metal Bed Assembler Relationship Specialty Start Date End Date Magan Amador MD [address] [place] [address] PCP - General Family Medicine 04/22/13 Zach Donovan RN [address] [place] [address] Turf Sales Person [facility] 05/05/22 Metal Bed Assembler Relationship Specialty Start Date End Date Magan Amador MD [address] [place] [address] PCP - General Family Medicine 04/22/13 Zach Donovan, RN [address] [place] [address] Turf Sales Person [facility] 05/05/22 Metal Bed Assembler Relationship Specialty Start Date End Date Magan Amador MD [address] [place] [address] PCP - General Family Medicine 04/22/13 Zach Donovan RN [address] [place] [address] Turf Sales Person [facility] 05/05/22 Metal Bed Assembler Relationship Specialty Start Date End Date Magan Amador MD [address] [place] [address] PCP - General Family Medicine 04/22/13 Zach Donovan RN [address] [place] [address] Turf Sales Person [facility] 05/05/22 Metal Bed Assembler Relationship Specialty Start Date End Date Magan Amador MD [address] [place] [address] PCP - General Family Medicine 04/22/13 Zach Donovan RN [address] [place] [address] Turf Sales Person [facility] 05/05/22 Metal Bed Assembler Relationship Specialty Start Date End Date Magan Amador MD [address] [place] [address] PCP - General Family Medicine 04/22/13 Zach Donovan RN [address] [place] [address] Turf Sales Person [facility] 05/05/22 Team Status: Inactive Member Role Status Dates Dr. Magan Amador MD Primary Care Provider Active Dr. César Partida MD Attending Provider, Referring Provider Active Metal Bed Assembler Relationship Specialty Start Date End Date Magan Amador MD [address] [place] [address] PCP - General Family Medicine 04/22/13 Zach Donovan RN [address] [place] [address] Turf Sales Person [facility] 05/05/22 Metal Bed Assembler Relationship Specialty Start Date End Date Magan Amador MD [address] [place] [address] PCP - General Family Medicine 04/22/13 Zach Donovan RN [address] [place] [address] Turf Sales Person [facility] 05/05/22 Metal Bed Assembler Relationship Specialty Start Date End Date Magan Amador MD [address] [place] [address] PCP - General Family Medicine 04/22/13 Zach Donovan RN [address] [place] [address] Turf Sales Person [facility] 05/05/22 Metal Bed Assembler Relationship Specialty Start Date End Date Magan Amador MD [address] [place] [address] PCP - General Family Medicine 04/22/13 Zach Donovan RN [address] [place] [address] Turf Sales Person [facility] 05/05/22 Metal Bed Assembler Relationship Specialty Start Date End Date Magan Amador MD [address] [place] [address] PCP - General Family Medicine 04/22/13 Zach Donovan RN [address] [facility], [place] [address] Turf Sales Person [facility] 05/05/22 Metal Bed Assembler Relationship Specialty Start Date End Date Magan Amador MD [address] [place] [address] PCP - General Family Medicine 04/22/13 Zach Donovan RN [address] [place] [address] Turf Sales Person [facility] 05/05/22 Metal Bed Assembler Relationship Specialty Start Date End Date Magan Amador MD [address] [place] [address] PCP - General Family Medicine 04/22/13 Zach Donovan RN [address] [place] [address] Turf Sales Person [facility] 05/05/22 Metal Bed Assembler Relationship Specialty Start Date End Date Magan Amador MD [address] [place] [address] PCP - General Family Medicine 04/22/13 Zach Donovan RN [address] [place] [address] Turf Sales Person [facility] 05/05/22 Team Status: Active Member Role Status Dates Magan Amador primary care physician Active Sta rt: November 16, 2023 CLAY STRUCTURE BUILDER AND SERVICER.COMPLIANCE MONITOR [facility] Active Start : November 16, 2023 Magan Amador [facility] Active Start: November 152023 MERCEDES CARR Next of Kin Active Start: November 152023 TY YU Guarantor Active Start: November 152023 Metal Bed Assembler Relationship Specialty Start Date End Date Magan Amador MD [address] [place] [address] PCP - General Family Medicine 04/22/13 Zach Donovan RN [address] [place] [address] Turf Sales Person Family Medicine 05/05/22 Team Status: Active Member Role Status Dates Magan Amador primary care physician Active Sta rt: December 18, 2023SepN.DANNI [facility] Active Star t: December 18, 2023 Magan Amador FAMILY Active Start: November 222023 MERCEDESLIZETTE CARR Next of Kin Active Start: November 222023 TY YU Guarantor Active Start: November 222023 Team Status: Active Member Role Status Dates Magan Amador primary care physician Active Sta rt: December 22, 2023 CLAY STRUCTURE BUILDER AND SERVICER.DANNI [facility] Active Start: December 22, 2023 Maganlayla Amador FAMILY Active Start: December 212023 MERCEDES CARR Next of Kin Active Start: December 212023 TY YU Guarantor Active Start: December 212023 Team Status: Active Member Role Status Dates Magan Amador primary care physician Active Sta rt: December 29, 2023SepN.DANNI Ibrahim EMERGENC[facility] Active Star t: December 29, 2023 Magan Amador FAMILY Active Start: December 282023 MERCEDESLIZETTE CARR Next of Kin Active Start: December 282023 TY YU Guarantor Active Start: December 282023 Team Status: Active Member Role Status Dates Magan Amador primary care physician Active Sta rt: January 01, 2024 CLAY STRUCTURE BUILDER AND SERVICER.DANNI [facility] Active Start : January 01, 2024 Magan Amador FAMILY Active Start: December 212023 MERCEDES CARR Next of Kin Active Start: December 212023 TY YU Guarantor Active Start: December 212023 Metal Bed Assembler Relationship Specialty Start Date End Date Magan Amador MD [address] [place], [place] [address] PCP - General Family Medicine 04/22/13 Zach Donovan, RN [address] [place], [place] [address] Turf Sales Person Family Medicine 05/05/22 Metal Bed Assembler Relationship Specialty Start Date End Date Magan Amador MD [address] [place] [address] PCP - General Family Medicine 04/22/13 Zach Donovan RN [address] [place] [address] Turf Sales Person [facility] 05/05/22 Metal Bed Assembler Relationship Specialty Start Date End Date Magan Amador MD [address] [place] [address] PCP - General Family Medicine 04/22/13 Zach Donovan RN [address] [place] [address] Turf Sales Person [facility] 05/05/22 Metal Bed Assembler Relationship Specialty Start Date End Date Magan Amador MD [address] [place] [address] PCP - General Family Medicine 04/22/13 Zach Donovan, CAROLIN [address] [place] [address] Turf Sales Person [facility] 05/05/22 Metal Bed Assembler Relationship Specialty Start Date End Date Magan Amador MD [address] [place] [address] PCP - General Family Medicine 04/22/13 Zach Donovan RN [address] [place] [address] Turf Sales Person [facility] 05/05/22 Metal Bed Assembler Relationship Specialty Start Date End Date Magan Amador MD [address] [place] [address] PCP - General Family Medicine 04/22/13 Zach Donovan RN [address] [place] [address] Turf Sales Person Family [facility] 05/05/22 Metal Bed Assembler Relationship Specialty Start Date End Date Magan Amador MD [address] [place] [address] PCP - General Family Medicine 04/22/13 Zach Donovan RN [address] [place] [address] Turf Sales Person Family [facility] 05/05/22 Marjan Vergara, MARYURI.COMPLIANCE MONITOR [address] [place] [address] Nuclear Reactor Operator Family [facility] 05/29/24 Heaven Garg PA-C [address] [place] [address] Nuclear Reactor Operator [facility] 05/29/24 Metal Bed Assembler Relationship Specialty Start Date End Date Magan Amador MD [facility] [place] [address] PCP - General Family Medicine 04/22/13 Zach Donovan RN [address] [place] [address] Turf Sales Person Family Medicine 05/05/22 Marjan Vergara, CLAY STRUCTURE BUILDER AND SERVICER.COMPLIANCE MONITOR [address] [place] [address] Nuclear Reactor Operator Family [facility] 05/29/24 Heaven Garg PA-C [address] [place] [address] Nuclear Reactor Operator Family [facility] 05/29/24 Metal Bed Assembler Relationship Specialty Start Date End Date Magan Amador MD [address] [place] [address] PCP - General Family Medicine 04/22/13 Zach Donovan RN [address] [place] [address] Turf Sales Person Family Medicine 05/05/22 Marjan Vergara APRN.COMPLIANCE MONITOR [address] [place] [address] Nuclear Reactor Operator Family [facility] 05/29/24 Heaven Garg PA-C [address] [place] [address] Nuclear Reactor Operator [facility] 05/29/24 Metal Bed Assembler Relationship Specialty Start Date End Date Magan Amador MD [address] [place] [address] PCP - General Family Medicine 04/22/13 Zach Donovan RN [address] [place] [address] Turf Sales Person Family [facility] 05/05/22 Marjan Vergara, MARYURI.COMPLIANCE MONITOR [address] [place] [address] Nuclear Reactor Operator Family [facility] 05/29/24 Heaven Garg PA-C [address] [place] [address] Nuclear Reactor Operator [facility] 05/29/24 Metal Bed Assembler Relationship Specialty Start Date End Date Magan Amador MD [address] [place] [address] PCP - General Family Medicine 04/22/13 Zach Donovan RN [address] [place] [address] Turf Sales Person Family Medicine 05/05/22 Marjan Vergara, MARYURI.COMPLIANCE MONITOR [address] [place] [address] Nuclear Reactor Operator Family [facility] 05/29/24 Heaven Garg PA-C [address] [place] [address] Nuclear Reactor Operator Family [facility] 05/29/24 Metal Bed Assembler Relationship Specialty Start Date End Date Magan Amador MD [address] [place] [address] PCP - General Family Medicine 04/22/13 Zach Donovan, RN [address] [place] [address] Turf Sales Person Family Medicine 05/05/22 Marjan Vergara APRN.COMPLIANCE MONITOR [address] [place] [address] Nuclear Reactor Operator Family [facility] 05/29/24 Heaven Garg PA-C [address] [place] [address] Nuclear Reactor Operator Family [facility] 05/29/24 Metal Bed Assembler Relationship Specialty Start Date End Date Magan Amador MD [address] [place] [address] PCP - General Family Medicine 04/22/13 Marjan Vergara APRN.COMPLIANCE MONITOR [address] [place] [address] Nuclear Reactor Operator Family Medicine 05/29/24 Heaven Garg PA-C [address] [place] [address] Nuclear Reactor Operator Family [facility] 05/29/24 Metal Bed Assembler Relationship Specialty Start Date End Date Magan Amador MD [address] [place] [address] PCP - General Family Medicine 04/22/13 Marjan Vergara, CLAY STRUCTURE BUILDER AND SERVICER.COMPLIANCE MONITOR [address] [place] [address] Nuclear Reactor Operator Family [facility] 05/29/24 Heaven Garg PA-C [address] [place] [address] Nuclear Reactor Operator Family [facility] 05/29/24 Metal Bed Assembler Relationship Specialty Start Date End Date Magan Amador MD [address] [place] [address] PCP - General Family Medicine 04/22/13 Marjan Vergara, CLAY STRUCTURE BUILDER AND SERVICER.COMPLIANCE MONITOR [address] [place] [address] Nuclear Reactor Operator Family [facility] 05/29/24 Heaven Garg PA-C [address] [place] [address] Nuclear Reactor Operator Family [facility] 05/29/24 Metal Bed Assembler Relationship Specialty Start Date End Date Magan Amador MD [address] [place] [address] PCP - General Family Medicine 04/22/13 Marjan Vergara, CLAY STRUCTURE BUILDER AND SERVICER.COMPLIANCE MONITOR [address] [place] [address] Nuclear Reactor Operator Family [facility] 05/29/24 Heaven Garg PA-C [address] [place] [address] Nuclear Reactor Operator Family [facility] 05/29/24 Metal Bed Assembler Relationship Specialty Start Date End Date Magan Amador MD [address] [place] [address] PCP - General Family Medicine 04/22/13 Marjan Vergara APRN.COMPLIANCE MONITOR [address] [place] [address] Nuclear Reactor Operator Family [facility] 05/29/24 Heaven Garg PA-C [address] [place] [address] Nuclear Reactor Operator Family [facility] 05/29/24 Metal Bed Assembler Relationship Specialty Start Date End Date Magan Amador MD [address] [place] [address] PCP - General Family Medicine 04/22/13 Marjan Vergara APRN.COMPLIANCE MONITOR [address] [place] [address] Nuclear Reactor Operator Family [facility] 05/29/24 Heaven Garg PA-C [address] [place] [address] Nuclear Reactor Operator Family [facility] 05/29/24 Metal Bed Assembler Relationship Specialty Start Date End Date Magan Amador MD [address] [place] [address] PCP - General Family Medicine 04/22/13 Marjan Vergara APRN.COMPLIANCE MONITOR [address] [place] [address] Nuclear Reactor Operator Family [facility] 05/29/24 Heaven Garg PA-C [address] [place] [address] Nuclear Reactor Operator Family [facility] 05/29/24 Metal Bed Assembler Relationship Specialty Start Date End Date Magan Amador MD [address] [place] [address] PCP - General Family Medicine 04/22/13 Marjan Vergara APRN.COMPLIANCE MONITOR [address] [place] [address] Nuclear Reactor Operator Family [facility] 05/29/24 Heaven Garg PA-C [address] [place] [address] [facility] 05/29/24 Metal Bed Assembler Relationship Specialty Start Date End Date Magan Amador MD [address] [place] [address] PCP - General Family Medicine 04/22/13 Marjan Vergara APRN.COMPLIANCE MONITOR [address] [place] [address] [facility] Family [facility] 05/29/24 Heaven Garg PA-C [address] [place] [address] [facility] Metal Bed Assembler Relationship Specialty Start Date End Date Magan Amador MD [address] [place] [address] PCP - General Family Medicine 04/22/13 09/26/24 Magan Amador MD [address] [place] [address] PCP - General Family Medicine 09/27/24 Marjan Vergara APRN.COMPLIANCE MONITOR [address] [place] [address] [facility] 05/29/24 Heaven Garg PA-C [address] [place], [place] [address] [facility] 05/29/24 Metal Bed Assembler Relationship Specialty Start Date End Date Magan Amador MD [address] [place], [place] [address] PCP - General Family Medicine 09/27/24 Marjan Vergara APRN.COMPLIANCE MONITOR [facility] [place], [place] [address] [facility] 05/29/24 Heaven Garg PA-C [facility] [place], [place] [id number] [facility] 05/29/24 Team Status: Inactive Member Role Status Dates Dr. Magan Amador MD Primary Care Provider Active Start: August 24, 2024 End: August 24, 2024 Dr. César Partida MD Attending Provider Active Start: August 24, 2024 End: August 24, 2024 Dr. César Partida MD Referring Provider Active Start: August 24, 2024 End: August 24, 2024 Team Status: Inactive Member Role Status Dates Dr. Magan Amador MD Primary Care Provider Active Start: November 30, 2024 End: November 30, 2024 Dr. Magan Amador MD Referring Provider Active Start: November 30, 2024 End: November 30, 2024 Dr. César Partida MD Attending Provider Active Start: November 30, 2024 End: November 30, 2024 Metal Bed Assembler Relationship Specialty Start Date End Date Magan Amador MD [address] [place], [place] [address] PCP - General Family Medicine 09/27/24 Marjan Vergara, CLAY STRUCTURE BUILDER AND SERVICER.COMPLIANCE MONITOR [facility] [place] [address] [facility] 11/22/24 Heaven Garg PA-C [address] [place] [address] [facility] 11/22/24 Metal Bed Assembler Relationship Specialty Start Date End Date Magan Amador MD [address] [place] [address] PCP - General Family Medicine 09/27/24 Marjan Vergara, CLAY STRUCTURE BUILDER AND SERVICER.COMPLIANCE MONITOR [address] [place] [address] [facility] 11/22/24 Heaven Garg PA-C [facility] [place] [address] [facility] 11/22/24 Team Status: Active Member Role Status Dates Magan Amador primary care physician Active Sta rt: December 01, 2024 CLAY STRUCTURE BUILDER AND SERVICER.DANNI Thomas EMERGENC[facility] Active Start : December 01, 2024 Magan IRWIN Active Start: November 212024 MERCEDES CARR Next of Kin Active Start: November 212024 TY YU Guarantor Active Start: November 212024 Team Status: Active Member Role Status Dates Magan Amador primary care physician Active Sta rt: November 22, 2024 RYAN Conti EMERGENCY Active Start: November 22, 2024 Magan IRWIN Active Start: November 222024 MERCEDES CARR Next of Kin Active Start: November 222024 TY YU Guarantor Active Start: November 222024 Team Status: Inactive Member Role Status Dates Dr. Magan Amador MD Primary Care Provider Active Start: December 09, 2024 End: December 09, 2024 Dr. Magan Amador MD Referring Provider Active Start: December 09, 2024 End: December 09, 2024 Krystal Mccain NP-C Attending Provider Active S tart: December 09, 2024 End: December 09, 2024 Team Status: Inactive Member Role Status Dates Dr. Magan Amador MD Primary Care Provider Active Start: December 09, 2024 End: December 09, 2024 Krystal Mccain NP-C Attending Provider Active S tart: December 09, 2024 End: December 09, 2024 Krystal Mccain NP-C Referring Provider Active S tart: December 09, 2024 End: December 09, 2024 Team Status: Active Member Role/Relationship Status Dates Dr. Magan Amador MD Primary Care Provider Active Team Status: Inactive Member Role/Relationship Status Dates Dr. Magan Amador MD Primary Care Provider Active Start: November 30, 2024 End: November 30, 2024 Dr. César Partida MD Attending Provider Active Start: November 30, 2024 End: November 30, 2024 Dr. César Partida MD Referring Provider Active Start: November 30, 2024 End: November 30, 2024 Team Status: Inactive Member Role/Relationship Status Dates Dr. Magan Amador MD Primary Care Provider Active Start: December 09, 2024 End: December 09, 2024 Dr. Magan Amador MD Referring Provider Active Start: December 09, 2024 End: December 09, 2024 SUNI SoteloC Attending Provider Active S tart: December 09, 2024 End: December 09, 2024 Team Status: Inactive Member Role/Relationship Status Dates Dr. Magan Amador MD Primary Care Provider Active Start: December 09, 2024 End: December 09, 2024 SUNI SoteloC Attending Provider Active S tart: December 09, 2024 End: December 09, 2024 Krystal Mccain NP-C Referring Provider Active S tart: December 09, 2024 End: December 09, 2024 Team Status: Inactive Member Role/Relationship Status Dates Dr. Magan Amador MD Primary Care Provider Active Start: January 25, 2025 End: January 25, 2025 Dr. Magan Amador MD Referring Provider Active Start: January 25, 2025 End: January 25, 2025 Dr. Pranay Brian DO Attending Provider Active Start: January 25, 2025 End: January 25, 2025 Team Status: Active Member Role/Relationship Status Dates Dr. Magan Amador MD Primary Care Provider Active Start: January 25, 2025 Dr. Magan Amador MD Referring Provider Active Start: January 25, 2025 Dr. Pranay Brian DO Attending Provider Active Start: January 25, 2025 Dr. Pranay Brian DO Other Provider Active St art: January 25, 2025 Goals (unrecognized section and content) Goals may be documented in a n alternate sectionGoals may be documented in an alternate sectionGoals may be documented in an alternate sectionGoals may be documented in an alternate sectionGoals may be documented in an alternate sectionGoals may be documented in an alternate sectionGoals may be documented in an alternate sectionGoals may be documented in an alternate sectionGoals may be documented in an alternate sectionGoals may be documented in an alternate sectionGoals may be documented in an alternate sectionGoals may be documented in an alternate sectionGoals may be documented in an alternate sectionGoals may be documented in an alternate sectionGoals may be documented in an alternate sectionGoals may be documented in an alternate sectionGoals may be documented in an alternate section FOR RECORDS PERTAINING TO PATIENTS WHO ARE OR HAVE BEEN ENROLLED IN A CHEMICAL DEPENDENCY/SUBSTANCEABUSE PROGRAM, SOME INFORMATION MAY BE OMITTED. This clinical summary was aggregated from multiple sources. Caution should be exercised in using it in the provision of clinical care. This summary normalizes information from multiple sources, and as a consequence, information in this document may materially change the coding, format and clinical context of patient data. In addition, data may be omitted in some cases. CLINICAL DECISIONS SHOULD BE BASED ON THE PRIMARY CLINICAL RECORDS. [employer] provides no warranty or guarantee of the accuracy or completeness of information in this document.
== END 2025-01-25 15:19 | disposition home or self-care (01) ==
LOC: EN 12:21 → AC 12:22
PROVIDERS: PCP Family Medicine; Referring Provider Family Medicine; Visit Provider Internal Medicine Gastroenterology
PROC: 0DJ08ZZ Inspection of Upper Intestinal Tract, Via Natural or Artificial Opening Endoscopic (ICD-10-PCS; CPT 43235; principal; 2025-01-25 13:25)
DX: D13.2 Benign neoplasm of duodenum (principal); Z93.3 Colostomy status; J42 Unspecified chronic bronchitis; E11.9 Type 2 diabetes mellitus without complications; K21.9 Gastro-esophageal reflux disease without esophagitis; M79.10 Myalgia, unspecified site; F41.9 Anxiety disorder, unspecified; M54.50 Low back pain, unspecified; I10 Essential (primary) hypertension; E78.00 Pure hypercholesterolemia, unspecified; R06.02 Shortness of breath; I25.10 Atherosclerotic heart disease of native coronary artery without angina pectoris; F17.210 Nicotine dependence, cigarettes, uncomplicated; Z79.84 Long term (current) use of oral hypoglycemic drugs; Z79.899 Other long term (current) drug therapy; Z90.49 Acquired absence of other specified parts of digestive tract
CPT/HCPCS: 43239; 82962; 88305